=== PATIENT | male | born 1945 | race Caucasian/White ===

== ENCOUNTER 2017-06-08 05:07 | Inpatient (IN) | payer MEDICARE, MEDICAID, SELFPAY ==
[2017-06-08] VITALS (14 sets, daily range): BP systolic 135–179; BP diastolic 71–109; PULSE 71–98; RESP 16–32; TEMP 36.3–37.1; O2SAT 89–95; BMI 30.3; BMI 29.5
--- NOTE | 2017-06-08 05:25 | RAD_ITS ---
STUDY: X-RAY CHEST REASON FOR EXAM: Male, 71 years old. Shortness of breath TECHNIQUE: 1 view COMPARISON: October 07, 2013 FINDINGS: Emphysematous changes in the upper lobes. No acute pneumonia. No failure. Normal sized heart. Normal visualized thoracic spine. Normal visualized ribs, clavicles, and shoulders. There is no demonstrated abnormality of the visualized soft tissue structures of the upper abdomen. RAD/Chest 1 View (Portable) IMPRESSION: Emphysematous changes in both upper lobes. No pneumonia. No failure. Electronically Signed: Lalo Man, at 6:27 EST Tel , Service support ,
--- NOTE | 2017-06-08 05:26 | EKG12_ITS ---
Test Reason : SOB Blood Pressure : / mmHG Vent. Rate : 104 BPM Atrial Rate : 104 BPM P-R Int : 148 ms QRS Dur : 074 ms QT Int : 374 ms P-R-T Axes : 086 072 -05 degrees QTc Int : 491 ms Sinus tachycardia with Premature atrial complexes ST & T wave abnormality, consider lateral ischemia Abnormal ECG Confirmed by BRENDAN DELGADO ([id number]), editorial specialist MARIAN VALLE ([id number]) on 06/15/2017 2:48:47 PM Referred By: BERTRAND Confirmed By:BRENDAN DELGADO
[2017-06-08] MEDS: Aspirin 81 MG TAB.CHEW 324 MG PO (05:32)
[2017-06-08 05:36] LABS: Absolute Lymphocyte Count 2.12 X10^3/ul (0.83-4.51); Absolute Neutrophil Count 10.8 X10^3/uL (2.0-7.7); Basophil# 0.05 X10^3/uL; Basophil% 0.3 % (0-1); Eosinophil# 0.02 X10^3/uL; Eosinophils% 0.1 % (0-5); Hemoglobin 16.7 g/dl (13.0-16.5); Lymphocyte # 2.12 X10^3/ul (4.0); Lymphocyte % 14.6 % (19-41); Mean Corp Hgb Conc 34.1 g/gl (32-36); Mean Corpuscular Hgb 31.5 pg (27.0-32.0); Mean Corpuscular Volume 92.3 fL (80-94); Mean Platelet Vol. 9.2 fl (6.2-12.0); Monocyte# 1.46 X10^3/uL; Monocyte% 10.1 % (0-10); Neutrophil # 10.81 X10^3/uL (2.7-7.7); Neutrophil % 74.8 % (47-70); Platelet Count 317 K/mm3 (150-450); RBC Distribution Width CV 13.3 % (11.6-14.6); RBC Distribution Width SD 44.3 fl (35.1-43.9); Red Blood Count 5.31 M/mm3 (4.6-6.2); White Blood Count 14.5 K/mm3 (4.4-11.0)
[2017-06-08 05:37] LABS: POSITIVE COUNT NO; POSITIVE DIFFERENTIAL NO; POSITIVE MORPHOLOGY NO
[2017-06-08] MEDS: Ipratropium/Albuterol Sulfate 3 ML AMPUL.NEB INHALATION ×4 (05:47→19:30)
[2017-06-08 05:53] LABS: Anion Gap 6 (5-15); BUN 16 mg/dL (7-18); BUN/Creat Ratio 17.4 RATIO (10-20); Calcium,Total 9.7 mg/dL (8.5-10.1); Chloride 94 mmol/L (98-107); Creatinine, Serum 0.92 mg/dL (0.70-1.30); EST Glomerular Filtration Rate 86 mL/min (>60); Est Glom Filt Rate - Afr Amer 104 mL/min (>60); Estimated Creatinine Clearance 73.65 ml/min; Glucose 138 mg/dL (74-106); Potassium 3.3 mmol/L (3.5-5.1); Sodium Level 138 mmol/L (136-145)
[2017-06-08 06:06] LABS: BNP,B-Type NATRIURETIC PEPTIDE 73.3 pg/mL (0-100)
--- NOTE | 2017-06-08 07:01 | ED.VISSUMM ---
- ER Visit Summary Date of Service: 06/08/17 Chief Complaint: Shortness of breath History of Present Illness: The patient is a 71 M presents with shortness of breath. This is been present for about 3-4 days. He states he had a recent URI-like illness about a week ago with some congestion rhinorrhea and subjective fevers and chills this is actually improving but he states his breathing has gotten worse. He complains of increased cough and increased wheezing. He also has noticed some edema and is concerned for possible CHF. He tried aerosols without any significant relief. He denies any vomiting or diarrhea. He denies any pain. Physical Examination: Hypertensive initial pulse ox 89% respiratory rate 32 afebrile Moist mucous membranes Heart regular rate and rhythm Patient has diminished air exchange bilaterally and is tachypneic Abdomen is soft Extremities nontender no appreciable edema Alert Test Results: Chest x-ray shows emphysematous changes no acute process. EKG shows some lateral T-wave inversions and slight ST depression. Laboratory studies notable for white blood cell count 14.5. Troponin negative. BNP normal. Emergency Department Course and Treatment: Patient was given oxygen and albuterol and Atrovent. He was given aspirin given his subtle EKG changes. He has no chest pain and troponin was negative. I do not believe he is having any type of acute coronary event. I do believe this is likely all COPD exacerbation. A respiratory panel is pending. He was given IV Solu-Medrol and IV Zithromax. He was discussed with the hospitalist and admitted. Treatment Plan: [] Disposition: Admit Impression: COPD exacerbation This note was generated with [employer] dictation software. It may contain incorrect words, spelling, and punctuation that were not noted in review of the chart prior to signing ED Disposition - Plan for ED Patient: Chief Complaint: Shortness of Breath Referrals: Clifton Del Valle Chi, MD [Primary Care Provider] -
--- NOTE | 2017-06-08 07:06 | ED.DCSUM_ITS ---
- ER Visit Summary Date of Service: 06/08/17 Chief Complaint: Shortness of breath History of Present Illness: The patient is a 71 M presents with shortness of breath. This is been present for about 3-4 days. He states he had a recent URI -like illness about a week ago with some congestion rhinorrhea and subjective fevers and chills this is actually improving but he states his breathing has gotten worse. He complains of increased cough and increased wheezing. He also has noticed some edema and is concerned for possible CHF. He tried aerosols without any significant relief. He denies any vomiting or diarrhea. He denies any pain. Physical Examination: Hypertensive initial pulse ox 89% respiratory rate 32 afebrile Moist mucous membranes Heart regular rate and rhythm Patient has diminished air exchange bilaterally and is tachypneic Abdomen is soft Extremities nontender no appreciable edema Alert Test Results: Chest x-ray shows emphysematous changes no acute process. EKG shows some lateral T-wave inversions and slight ST depression. Laboratory studies notable for white blood cell count 14.5. Troponin negative. BNP normal. Emergency Department Course and Treatment: Patient was given oxygen and albuterol and Atrovent. He was given aspirin given his subtle EKG changes. He has no chest pain and troponin was negative. I do not believe he is having any type of acute coronary event. I do believe this is likely all COPD exacerbation. A respiratory panel is pending. He was given IV Solu-Medrol and IV Zithromax. He was discussed with the hospitalist and admitted. Treatment Plan: [] Disposition: Admit Impression: COPD exacerbation This note was generated with [employer] dictation software. It may contain incorrect words, spelling, and punctuation that were not noted in review of the chart prior to signing ED Disposition - Plan for ED Patient: Chief Complaint: Shortness of Breath Referrals: Clifton Del Valle Chi, MD [Primary Care Provider] -
[2017-06-08] MEDS: MethylPREDNISolone 125 MG/2 ML Vial IV (07:21)
--- NOTE | 2017-06-08 07:51 | PCM.HP.STD ---
Problem List (1) Acute exacerbation of chronic obstructive pulmonary disease (COPD) Status: Acute (2) Acute respiratory insufficiency Status: Acute (3) Hypertension Status: Chronic (4) Hyperlipidemia Status: Chronic (5) Metabolic alkalosis Status: Acute (6) Hypokalemia Status: Acute (7) CHF (congestive heart failure) Status: Chronic Qualifiers: Heart failure type: diastolic (8) COPD (chronic obstructive pulmonary disease) Status: Chronic (9) Coronary artery disease Status: Chronic (10) GERD (gastroesophageal reflux disease) Status: Chronic (11) Paroxysmal SVT (supraventricular tachycardia) Status: Chronic (12) Abnormal EKG Status: Acute History of Present Illness Date of Admission: 06/08/17 Chief Complaint: Shortness of breath/cough The patient is a 71 year old M with a past medical history of resumed COPD, hypertension, hyperlipidemia, congestive heart failure, former smoker and GERD who presented to the emergency department at [facility] on 06/08/2017 complaining of increasing shortness of breath and cough for 1 week. He denied fevers and chills and also denied chest pain. He has had no nausea, vomiting or diarrhea. He denies myalgias and arthralgias. He complains of rhinorrhea and the nasal discharge is clear. His cough is mostly nonproductive. He is a former smoker but quit smoking in 1990. He uses an aerosol machine 4 times daily at home and also had as a metered-dose inhaler. He is not on any steroid inhalers. Vital signs at presentation to the emergency room were temp 98.8, pulse rate 98, blood pressure 179/109, respiratory rate 32 and he was 89% saturated on room air. He does not have oxygen at home. He is 93% saturated on a 4 L nasal cannula. Chest x-ray showed no infiltrates, pleural effusions or pulmonary vascular congestion. White blood cell count was 14.5 with 75% neutrophils. Hemoglobin is 16.7 and platelets are within normal limits. Potassium is low at 3.3 and he does take 40 mg of furosemide daily. Serum bicarb is increased at 38. Fasting blood sugar is elevated at 138. Troponin was less than 0.02 and the BNP was 73. EKG showed T-wave inversion with 0.[address] depression in his lateral precordial leads. He was given azithromycin in the emergency room and 125 mg of Solu-Medrol. He received 2 aerosol treatments. He is being admitted to the hospital with a diagnosis of acute exacerbation of COPD. Past Medical History Past Medical History (Chronic Problems): Chronic Problems Hypertension (Chronic) Hyperlipidemia (Chronic) COPD (chronic obstructive pulmonary disease) (Chronic) Paroxysmal SVT (supraventricular tachycardia) (Chronic) GERD (gastroesophageal reflux disease) (Chronic) Coronary artery disease (Chronic) CHF (congestive heart failure) (Chronic) Allergies No Known Allergies Allergy (Verified 06/08/17 05:16) Home Medications: Ambulatory Orders Medication Instructions Recorded Carvedilol [Coreg (Beta Pa)] 6.25 mg PO BID 05/25/13 Furosemide [Lasix] 40 mg PO DAILY 05/25/13 Lisinopril [Zestril] 20 mg PO DAILY 05/25/13 Pravastatin [Pravachol] 40 mg PO QHS 05/25/13 Albuterol/Ipratropium [Combivent 1 puff INHALATION 4X/DAY #1 inhaler 05/26/13 Inhaler] Aspirin E.C. [Ecotrin] 81 mg PO DAILY 06/08/17 Ranitidine [Zantac] 150 mg PO BID 06/08/17 Surgical History: - - He had excision of a left breast mass when he was 9 years of age and it was benign. 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 Drugs: None - *Family History Maternal History Items: No pertinent history Paternal History Items: No pertinent history Offspring History Items: - - He has children but they live in [place] and they have been estranged for many years. Review of Systems Constitutional: Denies: Chills, Fever, Weight Change Eyes: Denies: Blurred vision, Vision Change HEENT: Reports: - - Clear rhinorrhea. Denies: Difficulty Hearing, Difficulty Swallowing, Sore Throat Cardiovascular: Denies: Chest Pain, Edema, Light Headedness, Orthopnea, Palpitations Respiratory: Reports: Cough, Shortness of Breath, Shortness of breath at rest, Shortness of breath upon exertion. Denies: Sputum production Gastrointestinal: Reports: Abdominal Pain - He has been having epigastric pain and tells me he takes baking soda daily in addition to the ranitidine. Denies: Nausea, Vomiting Genitourinary: Denies: Dysuria Musculoskeletal: Denies: Joint Pain, Joint Tenderness Skin: Denies: Jaundice, Rash, Wounds Neurological: Denies: Focal weakness, Numbness, Tingling, Seizures Psychiatric: Denies: Anxiety, Depression, Homicidal Ideations, Suicidal Ideations Endocrine: Denies: Change in Body Habitus Hematologic/ Lymphatic: Denies: Easy Bruising, Easy Bleeding, Hx of blood clot VTE Information - Inpt Only VTE Present on Admission: No VTE Mechan Device Prophylaxis: Knee High JEROD Hose VTE Pharm Prophylaxis ordered?: Yes Patient Problems: Active and Suspected Problems Acute exacerbation of chronic obstructive pulmonary disease (COPD) (Acute) Acute respiratory insufficiency (Acute) Metabolic alkalosis (Acute) Hypokalemia (Acute) Abnormal EKG (Acute) - Physical Exam General: Alert, Oriented x3, Cooperative, No apparent distress, Well developed, Well nourished HEENT: Atraumatic, PERRLA, EOMI, Normocephalic Oral: Dry Mucosa Neck: Supple, No JVD, Negative Carotid Bruits, Trachea Midline, - - Carotids have brisk upstroke and good pulse volume bilaterally Lungs: Diminished, Wheezes, - - He has coarse crackles in the bases of both lungs that do not resolve with several deep breaths. Deep breathing causes him to cough. Cardiovascular: Regular rate, Regular Rhythm, Normal S1, Normal S2, No murmurs, No Ectopic Activity, No Gallop Abdomen: Bowel Sounds Present, Soft, Non Tender, Distended - and tympanic.....he tells me this is normal for him Extremities: No clubbing, No cyanosis, No edema, Capillary Refill Less than 3 Seconds, No Calf Tenderness, Peripheral Pulses Normal Skin: No rashes, No breakdown Musculoskeletal: No Muscle Wasting Neurological: Cranial nerves II-XII grossly intact, Neuro grossly intact Psych/Mental Status: Normal Affect, Appropriate Vital Signs Temp Pulse Resp BP Pulse Ox 98.8 F 96 24 H 165/96 H 93 06/08/17 05:07 06/08/17 07:10 06/08/17 07:10 06/08/17 07:10 06/08/17 07:10 Oxygen Flow Rate 4 Oxygen Delivery Method Nasal Cannula Weight: 205 lb 4.006 oz Body Mass Index (BMI) 30.3 Laboratory Tests Past 24 Hrs 06/08/17 06/08/17 06/08/17 05:30 05:30 05:30 WBC 14.5 H RBC 5.31 Hgb 16.7 H Hct 49.0 MCV 92.3 MCH 31.5 MCHC 34.1 RDW 13.3 RDW Differential 44.3 H Plt Count 317 MPV 9.2 Immature Gran % (Auto) 0.100 Neut % (Auto) 74.8 H Lymph % (Auto) 14.6 L Linn % (Auto) 10.1 H Eos % (Auto) 0.1 Baso % (Auto) 0.3 Absolute Neuts (auto) 10.8 H Absolute Lymphs (auto) 2.12 Total Counted Not Reportable Sodium 138 Potassium 3.3 L Chloride 94 L Carbon Dioxide 38.0 H Anion Gap 6 BUN 16 Creatinine 0.92 Estim Creat Clear Calc 73.65 Est GFR (MDRD) Af Amer 104 Est GFR (MDRD) Non-Af 86 BUN/Creatinine Ratio 17.4 Glucose 138 H Calcium 9.7 Troponin I < 0.02 B-Natriuretic Peptide 73.3 Assessment/Plan Active and Suspected Problems Acute exacerbation of chronic obstructive pulmonary disease (COPD) (Acute) Acute respiratory insufficiency (Acute) Metabolic alkalosis (Acute) Hypokalemia (Acute) Abnormal EKG (Acute) Impressions 1. Acute exacerbation of COPD 2. Acute respiratory insufficiency with borderline hypoxemia 3. Hypertension 4. Hyperlipidemia 5. Reported history of congestive heart failure-suspect this is diastolic 6. Metabolic alkalosis-suspect chronic CO2 retention-ABG ordered 7. GERD 8. Former smoker-quit in 1990 9. Hypokalemia CXR Sputum for GM stain C&S Respiratory panel Legionella and Streptococcal antigens in the urine Around the clock aerosol treatments and Q 2H ALbuterol aerosols for wheezing/SOB High dose IV steroids Mucinex Incentive spirometry PEP therapy DVT prophylaxis Ambulatory pulse ox prior to DC Code Visit Inpatient E&M: 97799 Init Hosp L2
--- NOTE | 2017-06-08 07:57 | ECHOD_ITS ---
Reason For Study: ABN EKG Procedure This was a 2D Doppler, Color Flow transthoracic echocardiogram. The exam was of adequate technical quality. Exam performed portable in patient room. Left Ventricle Normal LV size. Left ventricular systolic function is normal. The estimated ejection fraction is 60 %. Transmitral diastolic flow velocities suggest moderate (stage 2) diastolic dysfunction (pseudonormal pattern). No regional wall motion abnormalities noted. Right Ventricle Normal RV size. Normal systolic function. Atria The left atrium is mildly enlarged. The right atrium is mildly enlarged. No doppler evidence for ASD. Mitral Valve There is no mitral annular calcification. Normal mitral valve. Trivial mitral valve insufficiency. Tricuspid Valve Normal tricuspid valve. Mild tricuspid valve insufficiency. Right ventricular systolic pressure estimated to be 45 mmHg. Aortic Valve Trisinus/trileaflet aortic valve. Mild focal aortic valve thickening. Pulmonic Valve The pulmonic valve is not well visualized. Trivial pulmonic valve insufficiency. Great Vessels Normal sized aortic root. Pericardium/Pleural No pericardial effusion. MMode/2D Measurements & Calculations LVIDd: 4.8 cm IVSd: 1.2 cm LVOT diam: 2.1 cm LVIDs: 3.7 cm LVPWd: 1.0 cm LVOT area: 3.5 cm2 RVDd: 3.4 cm FS: 23.0 % Ao root diam: 3.8 cm LAV(MOD-bp): 59.8 ml LA A4 area: 19.7 cm2 LA dimension: 3.2 cm LAV(MOD-bp) Indexed: 28.7 ml/m2 LAV(MOD-sp2): 58.4 ml LAV(MOD-sp4): 58.3 ml RA A4 area: 18.9 cm2 Doppler Measurements & Calculations MV E max oneyda: 69.7 cm/sec Ao V2 max: 145.2 cm/sec LV V1 max: 104.6 cm/sec MV A max oneyda: 48.8 cm/sec Ao max P.6 mmHg LV V1 max P.4 mmHg MV E/A: 1.4 ANNE(V,D): 2.5 cm2 TR max oneyda: 321.8 cm/sec TR max P.5 mmHg Interpretation Summary Left ventricular systolic function is normal. The estimated ejection fraction is 60 %. The left atrium is mildly enlarged. The right atrium is mildly enlarged. Trivial mitral valve insufficiency. Mild tricuspid valve insufficiency. Mild focal aortic valve thickening. Trivial pulmonic valve insufficiency. Right ventricular systolic pressure estimated to be 45 mmHg. Transmitral diastolic flow velocities suggest diastolic dysfunction (pseudonormal pattern). Ordering Physician: Jenn Stewart Referring Physician: BRIANNA ALVARADO CHI Performed By: Lola Rios, RDCS, RVT
[2017-06-08] MEDS: Ondansetron 4 MG/2 ML Vial IV (08:54)
--- NOTE | 2017-06-08 08:56 | EKG12_ITS ---
Test Reason : SOB Blood Pressure : / mmHG Vent. Rate : 093 BPM Atrial Rate : 093 BPM P-R Int : 172 ms QRS Dur : 070 ms QT Int : 336 ms P-R-T Axes : 094 066 109 degrees QTc Int : 417 ms Sinus rhythm with Premature atrial complexes ST & T wave abnormality, consider inferolateral ischemia Abnormal ECG Confirmed by TIERNEY KESSLER, KENNEDY ([id number]), videotape editor MARIAN VALLE ([id number]) on 06/16/2017 1:45:18 PM Referred By: YUE Confirmed By:KENNEDY MONET MD
[2017-06-08 09:36] LABS: Magnesium 2.2 mg/dL (1.6-2.6); Phosphorus 3.6 mg/dL (2.5-4.9)
[2017-06-08 09:44] LABS: Hemoglobin A1c 5.9 % (4.2-6.3)
[2017-06-08 09:52] LABS: AST(SGOT) 22 U/L (15-37); Alanine Aminotransfer ALT/SGPT 45 U/L (16-61); Albumin, Serum 4.1 g/dL (3.2-5.0); Alkaline Phosphatase 101 U/L (45-117); Bilirubin, Direct 0.14 mg/dL (0.00-0.30); Globulin 4.1 g/dL (2.2-4.2); Protein, Total 8.2 g/dL (6.4-8.2)
[2017-06-08] MEDS: Enoxaparin 40 MG/0.4 ML Syringe SC (10:10)
[2017-06-08] MEDS: Aspirin E.C. 81 MG Tablet PO (10:10)
[2017-06-08] MEDS: Famotidine 20 MG Tablet PO ×2 (10:10→22:32)
[2017-06-08] MEDS: Carvedilol 6.25 MG Tablet PO ×2 (10:10→22:32)
[2017-06-08] MEDS: Furosemide 40 MG Tablet PO (10:10)
[2017-06-08] MEDS: Lisinopril 20 MG Tablet PO (10:10)
[2017-06-08 10:26] LABS: Allen Test POS; Base Excess 12 mmol/L (-2 to +2); Bicarbonate 35.5 mmol/L (22-26); Blood Gas Specimen Type ART; O2 Delivery Device Nasal Can; PO2 64 mmHG (75-100); SITE R Radial; SO2 93 % (95-99); Time Given 1018; Total Carbon Dioxide 37 mmol/L; pCO2 50.7 mmHg (35-45); pH 7.45 (7.35-7.45)
[2017-06-08] MEDS: guaiFENesin 1,200 MG Tablet 1200 MG PO ×2 (12:22→22:32)
[2017-06-08] MEDS: 0.9% NaCl Peripheral Flush Adult/Peds IV (14:07)
[2017-06-08] MEDS: Pravastatin 40 MG Tablet PO (22:32)
[2017-06-09] VITALS (11 sets, daily range): BP systolic 128–138; BP diastolic 75–82; PULSE 74–90; RESP 18–20; TEMP 36.4–37.7; O2SAT 90–93
[2017-06-09] MEDS: Ipratropium/Albuterol Sulfate 3 ML AMPUL.NEB INHALATION ×7 (00:10→22:44)
[2017-06-09 06:10] LABS: Anion Gap 6 (5-15); BUN 28 mg/dL (7-18); BUN/Creat Ratio 32.7 RATIO (10-20); Calcium,Total 8.4 mg/dL (8.5-10.1); Chloride 101 mmol/L (98-107); Creatinine, Serum 0.86 mg/dL (0.70-1.30); EST Glomerular Filtration Rate 93 mL/min (>60); Est Glom Filt Rate - Afr Amer 113 mL/min (>60); Estimated Creatinine Clearance 78.78 ml/min; Glucose 164 mg/dL (74-106); Magnesium 2.1 mg/dL (1.6-2.6); Potassium 3.9 mmol/L (3.5-5.1); Sodium Level 143 mmol/L (136-145)
[2017-06-09] MEDS: Furosemide 40 MG Tablet PO (08:41)
[2017-06-09] MEDS: Enoxaparin 40 MG/0.4 ML Syringe SC (08:41)
[2017-06-09] MEDS: Carvedilol 6.25 MG Tablet PO ×2 (08:41→21:09)
[2017-06-09] MEDS: Lisinopril 20 MG Tablet PO (08:41)
[2017-06-09] MEDS: Aspirin E.C. 81 MG Tablet PO (08:41)
[2017-06-09] MEDS: Famotidine 20 MG Tablet PO ×2 (08:41→21:09)
[2017-06-09] MEDS: guaiFENesin 1,200 MG Tablet 1200 MG PO ×2 (08:42→21:09)
--- NOTE | 2017-06-09 13:28 | CASEMGMT ---
DONATO WANG Face to Face with patient for initial transition planning/care coordination assessment. RN FELIPE introduced self and role at [facility]. Patient sitting up in bed, alert and oriented. Patient willing to participate in assessment and is able to answer all questions appropriately. Care providers, pharmacy, and demographics verified. See link attached. Patient wishes to discharge home, denies need for home health at this time. Patient states he has no further needs or concerns at this time. CM to follow for discharge planning needs that may arise. Disposition Plan: Patient to discharge home with family support and follow-up plans in place.
--- NOTE | 2017-06-09 13:53 | PN_ITS ---
Patient Problems: Active and Suspected Problems Acute exacerbation of chronic obstructive pulmonary disease (COPD) (Acute) Acute respiratory insufficiency (Acute) Metabolic alkalosis (Acute) Hypokalemia (Acute) Abnormal EKG (Acute) Subjective: 71-year-old male admitted to the hospital with acute exacerbation of COPD secondary to RSV B. Continues to require oxygen and is 90% on 2 L now. Previously not on oxygen at home. Respiratory panel is + for RSV B. Pulse ox today is 90-92% on 2.5 LPM Echo shows normal EF with no segmental wall motion abnormalities. The is focal AV thickening and +1 MVR. He states his breathing is improved. Denies CP. No N/V and no abdominal pain. - Physical Exam General: Alert, Oriented x3, Cooperative, No apparent distress Oral: No Gingival or Mucosal Lesions/ Ulcerations Neck: No Nodes, Trachea Midline Lungs: Diminished - poor air exchange with end expiratory wheezing, no rales. He is not tachypneic at rest today and has no conversational dyspnea There is no accessory muscle use, Wheezes Cardiovascular: Regular rate, Regular Rhythm, Normal S1, Normal S2, No Gallop, - - distant heart sounds Abdomen: Bowel Sounds Present, Soft, Non Tender, Non-Distended Extremities: No clubbing, No cyanosis, No edema Skin: No rashes, No breakdown Psych/Mental Status: Normal Affect, Appropriate Vital Signs Temp Pulse Resp BP Pulse Ox 97.5 F L 75 20 H 134/76 H 92 06/09/17 08:38 06/09/17 11:25 06/09/17 11:25 06/09/17 08:38 06/09/17 08:38 Oxygen Flow Rate 2.5 Oxygen Delivery Method Nasal Cannula Weight: 199 lb 15.348 oz Body Mass Index (BMI) 29.5 Intake and Output for Last 24 Hours 06/07/17 06/08/17 06/09/17 23:59 23:59 23:59 Intake Total 660 / 660 1724 / 1724 Output Total 100 / 100 Balance 560 / 560 1724 / 1724 Microbiology Past 72 Hours 06/08/17 11:10 Streptococcus pneumoniae Antigen (M - Final Urine, Clean Catch Laboratory Tests Past 24 Hrs 06/08/17 06/09/17 19:29 05:32 Sodium 143 Potassium 3.9 Chloride 101 Carbon Dioxide 36.0 H Anion Gap 6 BUN 28 H Creatinine 0.86 Estim Creat Clear Calc 78.78 Est GFR (MDRD) Af Amer 113 Est GFR (MDRD) Non-Af 93 BUN/Creatinine Ratio 32.7 H Glucose 164 H Calcium 8.4 L Magnesium 2.1 Troponin I < 0.02 Assessment/Plan Active and Suspected Problems Acute exacerbation of chronic obstructive pulmonary disease (COPD) (Acute) Acute respiratory insufficiency (Acute) Metabolic alkalosis (Acute) Hypokalemia (Acute) Abnormal EKG (Acute) Impressions 1. Acute exacerbation of COPD - secondary to RSV 2. Acute respiratory insufficiency with hypoxemia 3. Hypertension 4. Hyperlipidemia 5. Reported history of congestive heart failure-suspect this is diastolic - echocardiogram shows a 60% ejection fraction with probable diastolic dysfunction and an increased right ventricular systolic pressure of 45 6. Primary Metabolic alkalosis with compensatory resp acidosis likely due to contraction alkalosis 7. GERD 8. Former smoker-quit in 1990 9. Hypokalemia 10. Pulmonary hypertension DC the Prednisone and restart Solu-medrol - he is tighter today with poor air exchange continue the aerosols, IS and PEP Will need an ambulatory pulse ox prior to DC - may need home O2 He needs to see pulmonary post DC and have PFT's and a PSG. Hold the Lasix......may not need a diuretic since the EF is 60% Gentle hydration tonight with 0.45% saline Recheck a BMP in the AM Code Visit Inpatient E&M: 07460 Subs Hosp L2
[2017-06-09] MEDS: 0.9% NaCl Peripheral Flush Adult/Peds IV ×2 (14:23→21:09)
[2017-06-09] MEDS: 0.45% Normal Saline 1,000 ML 75 ML IV (20:44)
[2017-06-09] MEDS: Pravastatin 40 MG Tablet PO (21:09)
[2017-06-10] VITALS (12 sets, daily range): BP systolic 137–171; BP diastolic 73–98; PULSE 79–88; RESP 16–20; TEMP 36.4–37.3; O2SAT 89–96
[2017-06-10] MEDS: Ipratropium/Albuterol Sulfate 3 ML AMPUL.NEB INHALATION ×6 (02:25→23:56)
[2017-06-10] MEDS: 0.9% NaCl Peripheral Flush Adult/Peds IV ×2 (06:47→22:11)
[2017-06-10] MEDS: 0.45% Normal Saline 1,000 ML 75 ML IV (09:25)
[2017-06-10] MEDS: Aspirin E.C. 81 MG Tablet PO (09:25)
--- NOTE | 2017-06-10 09:59 | PCM.PN.HOSP ---
Patient Problems: Active and Suspected Problems Acute exacerbation of chronic obstructive pulmonary disease (COPD) (Acute) Acute respiratory insufficiency (Acute) Metabolic alkalosis (Acute) Hypokalemia (Acute) Abnormal EKG (Acute) Subjective: Patient was seen and examined. Denies any wheezing or chest pain. Remains on 2-3 L of oxygen. On oxygen at home. Using incentive spirometer and Acapella. Vitals/I&O's: Vital Signs Temp Pulse Resp BP Pulse Ox 97.5 F L 81 16 137/73 H 96 06/10/17 03:45 06/10/17 07:03 06/10/17 07:03 06/10/17 03:45 06/10/17 07:03 Oxygen Flow Rate 2 Oxygen Delivery Method Nasal Cannula Weight: 90.7 kg Body Mass Index (BMI) 29.5 Intake and Output for Last 24 Hours 06/08/17 06/09/17 06/10/17 23:59 23:59 23:59 Intake Total 660 / 660 2023 1172 / 1172 Output Total 100 / 100 450 / 450 Balance 560 / 560 2023 722 / 722 General: Alert, Oriented x3, Cooperative, No apparent distress, - - on 2L oxygen HEENT: Atraumatic, PERRLA, EOMI, Normocephalic Oral: Moist Mucosa Neck: Supple Lungs: Normal air movement, No wheeze, Diminished Cardiovascular: Regular rate, Regular Rhythm, Normal S1, Normal S2, No murmurs Abdomen: Bowel Sounds Present, Soft, Non Tender, Non-Distended, No Hepato-splenomegaly Extremities: No edema Skin: No rashes, No breakdown Musculoskeletal: No Tenderness to Palpation of Joints or Extremities Lymphatic: No Cervical, Supraclavicular, or Inguinal Adenopathy Neurological: Cranial nerves II-XII grossly intact, Neuro grossly intact Psych/Mental Status: Normal Affect, Appropriate Microbiology Past 72 Hours 06/08/17 11:10 Urine, Clean Catch Streptococcus pneumoniae Antigen (M - Final Current Medications Acetaminophen (Tylenol) 650 mg PO Q6H PRN PRN PRN Reason: Mild Pain (scale 0-3)/T>100.7 Al Hydroxide/Mg Hydroxide (Mylanta Ii) 30 ml PO Q6H PRN PRN PRN Reason: Gastric Burning Albuterol Sulfate (Ventolin Aerosols) 2.5 mg INHALATION Q2H PRN PRN PRN Reason: SHORTNESS OF BREATH Albuterol/Ipratropium (Duoneb) 3 ml INHALATION Q4H.RT [facility] Last Admin: 06/10/17 07:03 Dose: 3 ml Aspirin (Ecotrin) 81 mg PO DAILY@0800 [facility] Last Admin: 06/10/17 09:25 Dose: 81 mg Bisacodyl (Dulcolax) 10 mg PO DAILY PRN PRN PRN Reason: Constipation Carvedilol (Coreg) 6.25 mg PO BID [facility] Last Admin: 06/09/17 21:09 Dose: 6.25 mg Enoxaparin Sodium (Lovenox) 40 mg SC DAILY@1000 [facility] Last Admin: 06/09/17 08:41 Dose: 40 mg Famotidine (Pepcid) 20 mg PO BID [facility] Last Admin: 06/09/17 21:09 Dose: 20 mg Guaifenesin (Mucinex) 1,200 mg PO BID [facility] Last Admin: 06/09/17 21:09 Dose: 1,200 mg Azithromycin 500 mg/ Dextrose 255 mls @ 250 mls/hr IV Q24 [facility] Stop: 06/11/17 11:02 Last Admin: 06/10/17 09:26 Dose: 250 mls/hr Sodium Chloride () 1,000 mls @ 75 mls/hr IV .[id number] [facility] Stop: 06/10/17 22:29 Last Admin: 06/10/17 09:25 Dose: 75 mls/hr Lisinopril (Zestril) 20 mg PO DAILY [facility] Last Admin: 06/09/17 08:41 Dose: 20 mg Magnesium Hydroxide (Milk Of Magnesia) 30 ml PO DAILY PRN PRN PRN Reason: Constipation Methylprednisolone (Solu-Medrol) 40 mg IV Q8 [facility] Last Admin: 06/10/17 06:47 Dose: 40 mg Ondansetron HCl (Zofran) 4 mg IV Q8H PRN PRN PRN Reason: Nausea Last Admin: 06/08/17 08:54 Dose: 4 mg Potassium Ch[facility] ([facility]) [facility] Last Admin: 06/10/17 09:25 Dose: 20 meq Pravastatin Sodium (Pravachol) 40 mg PO QHS [facility] Last Admin: 06/09/17 21:09 Dose: 40 mg Sodium Chloride () 5 - 30 ml IV UD PRN PRN Reason: SALINE FLUSH Last Admin: 06/10/17 06:47 Dose: 5 ml Assessment/Plan Active and Suspected Problems Acute exacerbation of chronic obstructive pulmonary disease (COPD) (Acute) Acute respiratory insufficiency (Acute) Metabolic alkalosis (Acute) Hypokalemia (Acute) Abnormal EKG (Acute) 71-year-old male with past medical history of COPD, hypertension, hyperlipidemia, GERD who comes in with complaints of shortness of breath and cough and has manage as acute COPD exacerbation. Special panel was positive for RSV 1. Acute hypoxic respiratory insufficiency to acute COPD exacerbation, patient remains on 2-3 L of oxygen, not on oxygen at home, encourage use of incentive spirometer and Acapella, wean off for SPO2 more than 92% 2. Acute exacerbation of COPD secondary to RSV, remains on IV Solu-Medrol, breathing treatments, IV azithromycin, continue on same, possibly wean to prednisone p.o. tomorrow if patient continues to improve. 3. Hypertension, throat, continue on carvedilol, lisinopril, 4. Hyperlipidemia,on pravastatin 5. Chronic Diastolic heart failure/pulmonary hypertension, not in acute exacerbation 6. Metabolic alkalosis secondary to contraction alkalosis, on lows IV fluids with improvement in HCO3, will continue to monitor. 7. GERD, on famotidine 8. DVT PPx - on Lovenox SC Code Visit Inpatient E&M: 85702 Subs Hosp L2
--- NOTE | 2017-06-10 10:09 | PN_ITS ---
Patient Problems: Active and Suspected Problems Acute exacerbation of chronic obstructive pulmonary disease (COPD) (Acute) Acute respiratory insufficiency (Acute) Metabolic alkalosis (Acute) Hypokalemia (Acute) Abnormal EKG (Acute) Subjective: Patient was seen and examined. Denies any wheezing or chest pain. Remains on 2 -3 L of oxygen. On oxygen at home. Using incentive spirometer and Acapella. Vitals/I&O's: Vital Signs Temp Pulse Resp BP Pulse Ox 97.5 F L 81 16 137/73 H 96 06/10/17 03:45 06/10/17 07:03 06/10/17 07:03 06/10/17 03:45 06/10/17 07:03 Oxygen Flow Rate 2 Oxygen Delivery Method Nasal Cannula Weight: 90.7 kg Body Mass Index (BMI) 29.5 Intake and Output for Last 24 Hours 06/08/17 06/09/17 06/10/17 23:59 23:59 23:59 Intake Total 660 / 660 2023 1172 / 1172 Output Total 100 / 100 450 / 450 Balance 560 / 560 2023 722 / 722 General: Alert, Oriented x3, Cooperative, No apparent distress, - - on 2L oxygen HEENT: Atraumatic, PERRLA, EOMI, Normocephalic Oral: Moist Mucosa Neck: Supple Lungs: Normal air movement, No wheeze, Diminished Cardiovascular: Regular rate, Regular Rhythm, Normal S1, Normal S2, No murmurs Abdomen: Bowel Sounds Present, Soft, Non Tender, Non-Distended, No Hepato- splenomegaly Extremities: No edema Skin: No rashes, No breakdown Musculoskeletal: No Tenderness to Palpation of Joints or Extremities Lymphatic: No Cervical, Supraclavicular, or Inguinal Adenopathy Neurological: Cranial nerves II-XII grossly intact, Neuro grossly intact Psych/Mental Status: Normal Affect, Appropriate Microbiology Past 72 Hours 06/08/17 11:10 Urine, Clean Catch Streptococcus pneumoniae Antigen (M - Final Current Medications Acetaminophen (Tylenol) 650 mg PO Q6H PRN PRN PRN Reason: Mild Pain (scale 0-3)/T>100.7 Al Hydroxide/Mg Hydroxide (Mylanta Ii) 30 ml PO Q6H PRN PRN PRN Reason: Gastric Burning Albuterol Sulfate (Ventolin Aerosols) 2.5 mg INHALATION Q2H PRN PRN PRN Reason: SHORTNESS OF BREATH Albuterol/Ipratropium (Duoneb) 3 ml INHALATION Q4H.RT [facility] Last Admin: 06/10/17 07:03 Dose: 3 ml Aspirin (Ecotrin) 81 mg PO DAILY@0800 [facility] Last Admin: 06/10/17 09:25 Dose: 81 mg Bisacodyl (Dulcolax) 10 mg PO DAILY PRN PRN PRN Reason: Constipation Carvedilol (Coreg) 6.25 mg PO BID [facility] Last Admin: 06/09/17 21:09 Dose: 6.25 mg Enoxaparin Sodium (Lovenox) 40 mg SC DAILY@1000 [facility] Last Admin: 06/09/17 08:41 Dose: 40 mg Famotidine (Pepcid) 20 mg PO BID [facility] Last Admin: 06/09/17 21:09 Dose: 20 mg Guaifenesin (Mucinex) 1,200 mg PO BID [facility] Last Admin: 06/09/17 21:09 Dose: 1,200 mg Azithromycin 500 mg/ Dextrose 255 mls @ 250 mls/hr IV Q24 [facility] Stop: 06/11/17 11:02 Last Admin: 06/10/17 09:26 Dose: 250 mls/hr Sodium Chloride () 1,000 mls @ 75 mls/hr IV .[id number] [facility] Stop: 06/10/17 22:29 Last Admin: 06/10/17 09:25 Dose: 75 mls/hr Lisinopril (Zestril) 20 mg PO DAILY [facility] Last Admin: 06/09/17 08:41 Dose: 20 mg Magnesium Hydroxide (Milk Of Magnesia) 30 ml PO DAILY PRN PRN PRN Reason: Constipation Methylprednisolone (Solu-Medrol) 40 mg IV Q8 [facility] Last Admin: 06/10/17 06:47 Dose: 40 mg Ondansetron HCl (Zofran) 4 mg IV Q8H PRN PRN PRN Reason: Nausea Last Admin: 06/08/17 08:54 Dose: 4 mg [facility] Admin: 06/10/17 09:25 Dose: 20 meq Pravastatin Sodium (Pravachol) 40 mg PO QHS [facility] Last Admin: 06/09/17 21:09 Dose: 40 mg Sodium Chloride () 5 - 30 ml IV UD PRN PRN Reason: SALINE FLUSH Last Admin: 06/10/17 06:47 Dose: 5 ml Assessment/Plan Active and Suspected Problems Acute exacerbation of chronic obstructive pulmonary disease (COPD) (Acute) Acute respiratory insufficiency (Acute) Metabolic alkalosis (Acute) Hypokalemia (Acute) Abnormal EKG (Acute) 71-year-old male with past medical history of COPD, hypertension, hyperlipidemia , GERD who comes in with complaints of shortness of breath and cough and has manage as acute COPD exacerbation. Special panel was positive for RSV 1. Acute hypoxic respiratory insufficiency to acute COPD exacerbation, patient remains on 2-3 L of oxygen, not on oxygen at home, encourage use of incentive spirometer and Acapella, wean off for SPO2 more than 92% 2. Acute exacerbation of COPD secondary to RSV, remains on IV Solu-Medrol, breathing treatments, IV azithromycin, continue on same, possibly wean to prednisone p.o. tomorrow if patient continues to improve. 3. Hypertension, throat, continue on carvedilol, lisinopril, 4. Hyperlipidemia,on pravastatin 5. Chronic Diastolic heart failure/pulmonary hypertension, not in acute exacerbation 6. Metabolic alkalosis secondary to contraction alkalosis, on lows IV fluids with improvement in HCO3, will continue to monitor. 7. GERD, on famotidine 8. DVT PPx - on Lovenox SC Code Visit Inpatient E&M: 75866 Subs Hosp L2
[2017-06-10] MEDS: Carvedilol 6.25 MG Tablet PO ×2 (10:41→22:11)
[2017-06-10] MEDS: Famotidine 20 MG Tablet PO ×2 (10:41→22:11)
[2017-06-10] MEDS: Enoxaparin 40 MG/0.4 ML Syringe SC (10:41)
[2017-06-10] MEDS: Lisinopril 20 MG Tablet PO (10:41)
[2017-06-10] MEDS: guaiFENesin 1,200 MG Tablet 1200 MG PO ×2 (11:09→22:11)
[2017-06-10] MEDS: Pravastatin 40 MG Tablet PO (22:11)
[2017-06-10] MEDS: Sodium Chloride 0.65% 1 SPRAY SPRAY.BTL 2 SPRAY NASAL (22:18)
[2017-06-11] VITALS (10 sets, daily range): BP systolic 145–168; BP diastolic 83–107; PULSE 68–98; RESP 16–20; TEMP 36.5–36.7; O2SAT 90–96
[2017-06-11] MEDS: Ipratropium/Albuterol Sulfate 3 ML AMPUL.NEB INHALATION ×3 (03:52→11:30)
[2017-06-11] MEDS: Carvedilol 6.25 MG Tablet PO ×2 (06:28→12:26)
[2017-06-11] MEDS: Lisinopril 20 MG Tablet PO (06:28)
[2017-06-11] MEDS: 0.9% NaCl Peripheral Flush Adult/Peds IV (06:28)
[2017-06-11] MEDS: Bisacodyl 5 MG Tablet 10 MG PO (06:37)
--- NOTE | 2017-06-11 09:12 | PCM.DC ---
- Discharge Diagnoses Current Active Problems: Current Active and Chronic Problems Acute exacerbation of chronic obstructive pulmonary disease (COPD) (Acute) Acute respiratory insufficiency (Acute) Hypertension (Chronic) Hyperlipidemia (Chronic) Metabolic alkalosis (Acute) Hypokalemia (Acute) Abnormal EKG (Acute) Reason(s) for Visit for Discharge Instructions: Shortness of breath You will use the following diet at home:: Cardiac Your food should be the consistency of: Regular Your liquids should be the consistency of: Regular/Thin Discharge Activity: Return to Normal Activity Allergies/Adverse Reactions: Allergies No Known Allergies Allergy (Verified 06/08/17 05:16) Medications to take at Discharge Carvedilol [Coreg (Beta Pa)] 6.25 mg PO BID 05/25/13 Furosemide [Lasix] 40 mg PO DAILY 05/25/13 Lisinopril [Zestril] 20 mg PO DAILY 05/25/13 Pravastatin [Pravachol] 40 mg PO QHS 05/25/13 Albuterol/Ipratropium [Combivent Inhaler] 1 puff INHALATION 4X/DAY #1 inhaler 05/26/13 Aspirin E.C. [Ecotrin] 81 mg PO DAILY 06/08/17 Budesonide/Formoterol 160/4.5 [Symbicort 160/4.5 Mcg Inhaler (SP)] 1 inh PO BID 06/08/17 Ranitidine [Zantac] 150 mg PO BID 06/08/17 Guaifenesin [Mucinex] 1,200 mg PO BID #14 tab 06/11/17 Prednisone 10 mg PO UD #30 tab 06/11/17 The following prescriptions were given: Prednisone 10 mg PO UD #30 tab Guaifenesin [Mucinex] 1,200 mg PO BID #14 tab Orders to be completed after discharge: Basic Metabolic Profile (BMP) Location: Laboratory Primary Care Physician: Clifton Del Valle Chi, MD [Primary Care Provider] - Please follow up with your Primary Care Physician in: within 2 weeks Please Follow Up With: Santino Conrad MD When: within 2 weeks for pulmonary function tests Proposed Discharge Date: 06/11/17
[2017-06-11] MEDS: Enoxaparin 40 MG/0.4 ML Syringe SC (09:24)
[2017-06-11] MEDS: guaiFENesin 1,200 MG Tablet 1200 MG PO (09:24)
[2017-06-11] MEDS: Famotidine 20 MG Tablet PO (09:24)
[2017-06-11] MEDS: Aspirin E.C. 81 MG Tablet PO (09:25)
--- NOTE | 2017-06-11 11:41 | PCM.DC.SUM ---
Discharge Date and Diagnosis - Problem List Patient Problems: Active and Suspected Problems Acute exacerbation of chronic obstructive pulmonary disease (COPD) (Acute) Acute respiratory insufficiency (Acute) Metabolic alkalosis (Acute) Hypokalemia (Acute) Abnormal EKG (Acute) Date of Admission: 06/08/17 Date of Discharge: 06/11/17 - Primary Discharge Diagnosis Active and Suspected Problems Acute exacerbation of chronic obstructive pulmonary disease (COPD) (Acute) Acute respiratory insufficiency (Acute) Metabolic alkalosis (Acute) Hypokalemia (Acute) Abnormal EKG (Acute) - Secondary Discharge Diagnosis Chronic Problems Hypertension (Chronic) Hyperlipidemia (Chronic) COPD (chronic obstructive pulmonary disease) (Chronic) Paroxysmal SVT (supraventricular tachycardia) (Chronic) GERD (gastroesophageal reflux disease) (Chronic) Coronary artery disease (Chronic) CHF (congestive heart failure) (Chronic) Hospital Course and Treatment Imaging Results: Clinical Impression(s) from Imaging Studies Chest X-Ray 06/08/17 05:25 IMPRESSION: Emphysematous changes in both upper lobes. No pneumonia. No failure. Electronically Signed: Llao Man, at 6:27 EST Tel , Service support , None Operations: None Procedures: None Summary of Care Provided: 71-year-old male with past medical history of presumed COPD, former smoker, hypertension, hyperlipidemia, GERD who comes in with complaints of shortness of breath and cough ongoing for a week and has managed as acute COPD exacerbation. Special panel was positive for RSV 1. Acute hypoxic respiratory insufficiency to acute COPD exacerbation, patient improved on breathing treatments, IV staroids, was transitioned to po steroids, did not qualify for home/ambulatory oxygen. 2. Acute exacerbation of COPD secondary to RSV, improved, will need to folow-up with taper and floater in the outpatient for PFTs and walking oximetry. 3. Hypertension, was uncontrolled, carvedilol was increased to 12.5mg po daily, continued on 20mg lisinopril, he knows to follow-up within 2 weeks with primary doctor for BP check and possible medication adjustments. 4. Hyperlipidemia,on pravastatin 5. Chronic Diastolic heart failure/pulmonary hypertension, was not in acute exacerbation during this admission, EF 60%, taken off lasix on acoount of contraction alkalosis. 6. Metabolic alkalosis secondary to contraction alkalosis, resolving after IV fluids, off lasix, will need labs repeated in outpatient. 7. GERD, on famotidine Discharge Diet: Low fat/ Low Cholesterol, 2000 mg Sodium Diet Discharge Activity: Return to Normal Activity Home Medications: Medications to take at Discharge Lisinopril [Zestril] 20 mg PO DAILY 05/25/13 Pravastatin [Pravachol] 40 mg PO QHS 05/25/13 Albuterol/Ipratropium [Combivent Inhaler] 1 puff INHALATION 4X/DAY #1 inhaler 05/26/13 Aspirin E.C. [Ecotrin] 81 mg PO DAILY 06/08/17 Budesonide/Formoterol 160/4.5 [Symbicort 160/4.5 Mcg Inhaler (SP)] 1 inh PO BID 06/08/17 Ranitidine [Zantac] 150 mg PO BID 06/08/17 Carvedilol [Coreg] 12.5 mg PO BID #60 tab 06/11/17 Guaifenesin [Mucinex] 1,200 mg PO BID #14 tab 06/11/17 Prednisone 10 mg PO UD #30 tab 06/11/17 Following Prescrptions Were Given to Patient: Prednisone 10 mg PO UD #30 tab Carvedilol [Coreg] 12.5 mg PO BID #60 tab Guaifenesin [Mucinex] 1,200 mg PO BID #14 tab Other Amb Orders: Basic Metabolic Profile (BMP) Location: Laboratory Primary Care Physician: Clifton Del Valle Chi, MD [Primary Care Provider] - Please follow up with your Primary Care Physician in: within 2 weeks Please Follow Up With: Santino Conrad MD When: within 2 weeks for pulmonary function tests Disposition: Home Minutes spent on discharge:: 25 Patient Condition:: Stable Meaningful Use Info Meaningful Use Diagnoses (Choose all that apply): None applicable Code Visit Inpatient E&M: 45153 Disch Hosp
== END 2017-06-11 15:10 | disposition home or self-care (01) | DRG 191 ==
LOC: ED 07:50 → MS3 07:55
PROVIDERS: Admitting Provider Internal Medicine; Emergency Provider Emergency Medicine; Family Provider Family Medicine Geriatric Medicine; PCP Family Medicine Geriatric Medicine; Visit Provider Internal Medicine
DX: J44.1 Chronic obstructive pulmonary disease with (acute) exacerbation (principal); B97.4 Respiratory syncytial virus as the cause of diseases classified elsewhere; E87.3 Alkalosis; I27.20 Pulmonary hypertension, unspecified; I11.0 Hypertensive heart disease with heart failure; I50.32 Chronic diastolic (congestive) heart failure; I47.1 Supraventricular tachycardia; R09.02 Hypoxemia; I25.10 Atherosclerotic heart disease of native coronary artery without angina pectoris; E87.6 Hypokalemia; E78.5 Hyperlipidemia, unspecified; K21.9 Gastro-esophageal reflux disease without esophagitis; Z79.82 Long term (current) use of aspirin; Z79.899 Other long term (current) drug therapy; Z87.891 Personal history of nicotine dependence
CPT/HCPCS: 36415; 36600; 71045; 80048; 80076; 82803; 83036; 83735; 83880; 84100; 84484; 85025; 85610; 87449; 87633; 93005; 93306; 94640; 94667; 94668; 99285; J7030; J7040; J7050; A4216; J2405

== ENCOUNTER 2017-06-21 09:17 | Emergency (ER) | payer MEDICARE, MEDICAID, SELFPAY ==
[2017-06-21] VITALS (9 sets, daily range): BP systolic 75–105; BP diastolic 39–75; PULSE 83–173; RESP 20–38; TEMP 36.6–36.9; O2SAT 2–100; BMI 30.6
--- NOTE | 2017-06-21 09:19 | EKG12_ITS ---
Test Reason : SOB Blood Pressure : / mmHG Vent. Rate : 102 BPM Atrial Rate : 141 BPM P-R Int : 000 ms QRS Dur : 084 ms QT Int : 392 ms P-R-T Axes : 000 076 179 degrees QTc Int : [address] & T wave abnormality, consider inferolateral ischemia Abnormal ECG Confirmed by MAURISIO KESSLER, EDGAR ([id number]), pictures editor MARIAN VALLE ([id number]) on 06/27/2017 3:58:53 PM Referred By: LENNOX Confirmed By:EDGAR FORDE MD
--- NOTE | 2017-06-21 09:25 | EKG12_ITS ---
Test Reason : REPEAT Blood Pressure : / mmHG Vent. Rate : 098 BPM Atrial Rate : 098 BPM P-R Int : 152 ms QRS Dur : 082 ms QT Int : 372 ms P-R-T Axes : 089 063 201 degrees QTc Int : 474 ms Sinus rhythm with marked sinus arrhythmia with Premature supraventricular complexes ST & T wave abnormality, consider inferior ischemia ST & T wave abnormality, consider anterolateral ischemia Prolonged QT Abnormal ECG Confirmed by MAURISIO KESSLER, EDGAR ([id number]), editor managing director MARIAN VALLE ([id number]) on 06/27/2017 3:01:27 PM Referred By: LENNOX Confirmed By:EDGAR FORDE MD
--- NOTE | 2017-06-21 09:25 | RAD_ITS ---
STUDY: X-RAY CHEST REASON FOR EXAM: Male, 71 years old. Dyspnea. Dysrhythmia. TECHNIQUE: Single AP portable view of the chest. COMPARISON: Comparison is made with prior study dated June 08, 2017. FINDINGS: EKG electrodes are seen. Hyperinflation. Scattered calcified granulomas. There is no demonstrated pleural abnormality. Normal size heart. Normal mediastinum and chelle. Normal visualized pulmonary arteries. There is atherosclerotic calcification of the aortic arch with tortuosity. There are diffuse degenerative changes of the visualized thoracic spine. Normal visualized ribs, clavicles, and shoulders. There is no demonstrated abnormality of the visualized soft tissue structures of the upper abdomen. RAD/Chest 1 View (Portable) IMPRESSION: Hyperinflation. The lungs are clear. Electronically Signed: Jeff Rosario MD at 9:56 EST Tel [phone], Service support ,
[2017-06-21] MEDS: dilTIAZem 25 MG/5 ML Vial 20 MG IV BOLUS (09:33)
[2017-06-21] MEDS: 0.9% Normal Saline 1,000 ML 1000 ML IV ×2 (09:33→10:48)
--- NOTE | 2017-06-21 09:36 | EKG12_ITS ---
Test Reason : SOB Blood Pressure : / mmHG Vent. Rate : 173 BPM Atrial Rate : 187 BPM P-R Int : 000 ms QRS Dur : 086 ms QT Int : 262 ms P-R-T Axes : 000 080 243 degrees QTc Int : 444 ms Atrial fibrillation Marked ST abnormality, possible inferior subendocardial injury Abnormal ECG Confirmed by MAURISIO KESSLER, EDGAR ([id number]), editor at large MARIAN VALLE ([id number]) on 06/27/2017 3:59:09 PM Referred By: CLAUDETTE Confirmed By:EDGAR FORDE MD
[2017-06-21] MEDS: Ipratropium/Albuterol Sulfate 3 ML AMPUL.NEB INHALATION (09:39)
[2017-06-21 09:58] LABS: Absolute Lymphocyte Count 5.71 X10^3/ul (0.83-4.51); Basophil# 0.02 X10^3/uL; Basophil% 0.1 % (0-1); Hematocrit 28.8 % (40-54); Hemoglobin 9.4 g/dl (13.0-16.5); Lymphocyte # 5.71 X10^3/ul (4.0); Mean Corp Hgb Conc 32.6 g/gl (32-36); Mean Platelet Vol. 9.8 fl (6.2-12.0); Monocyte# 2.72 X10^3/uL; Monocyte% 8.6 % (0-10); Neutrophil # 23.03 X10^3/uL (2.7-7.7); Neutrophil % 72.6 % (47-70); Platelet Count 324 K/mm3 (150-450); RBC Distribution Width CV 14.2 % (11.6-14.6); RBC Distribution Width SD 48.9 fl (35.1-43.9); Red Blood Count 3.03 M/mm3 (4.6-6.2)
--- NOTE | 2017-06-21 10:06 | CT_ITS ---
STUDY: CT BRAIN WITHOUT CONTRAST REASON FOR EXAM: Male, 71 years old. Mental status changes. RADIATION DOSAGE (If Supplied By Facility): CTDIvol = ( 44.99 ) mGy, DLP = ( 796.11 ) mGycm TECHNIQUE: Transaxial CT imaging of the brain was performed without administration of intravenous contrast material. Individualized dose optimization techniques were used for this CT. COMPARISON: None. FINDINGS: Normal soft tissue structures. Normal calvarium. There is mild cerebral atrophy with widening of the extra-axial spaces and ventricular dilatation. There are areas of decreased attenuation within the white matter tracts of the supratentorial brain, consistent with microvascular disease changes. There are small punctate calcifications of the basal ganglia which are seen in the aging brain as a normal variant. I suspect a small lacunar infarct in the left thalamus. Normal brainstem. There is mild cerebellar atrophy. There is no intracranial hemorrhage. There are no findings of an acute ischemic infarction. Atherosclerotic calcification of the vertebral arteries and cavernous portions of the internal carotid arteries bilaterally. Air fluid levels in both maxillary sinuses. CT/Brain/Head without Contrast IMPRESSION: Chronic involutional changes of the brain. I suspect a small lacunar infarct in the left thalamus. Electronically Signed: Jeff Rosario MD at 11:27 EST Tel [phone], Service support ,
--- NOTE | 2017-06-21 10:14 | ED.RN ---
LAB RESULTED BUN 103, LACTIC 4.8, PHYSICIAN NOTIFIED
[2017-06-21 10:15] LABS: Anion Gap 12 (5-15); BUN 103 mg/dL (7-18); BUN/Creat Ratio 56.3 RATIO (10-20); Calcium,Total 9.3 mg/dL (8.5-10.1); Chloride 84 mmol/L (98-107); Creatinine, Serum 1.83 mg/dL (0.70-1.30); EST Glomerular Filtration Rate 39 mL/min (>60); Est Glom Filt Rate - Afr Amer 47 mL/min (>60); Estimated Creatinine Clearance 37.02 ml/min; Glucose 119 mg/dL (74-106); Lactic Acid 4.8 mmol/L (0.4-2.0); Potassium 3.6 mmol/L (3.5-5.1); Sodium Level 139 mmol/L (136-145)
[2017-06-21 10:17] LABS: Differential Indicated SCAN CRITERIA MET; POSITIVE COUNT YES; POSITIVE DIFFERENTIAL YES; POSITIVE MORPHOLOGY NO; White Blood Count 31.7 K/mm3 (4.4-11.0)
[2017-06-21 10:46] LABS: Allen Test POS; Base Excess 21 mmol/L (-2 to +2); Bicarbonate 42.2 mmol/L (22-26); Blood Gas Specimen Type ART; O2 Delivery Device Nasal Can; PO2 62 mmHG (75-100); SITE R Radial; SO2 94 % (95-99); Total Carbon Dioxide 44 mmol/L; pCO2 43.8 mmHg (35-45); pH 7.59 (7.35-7.45)
[2017-06-21] MEDS: 0.9% Normal Saline 1,000 ML 15 ML IV (10:48)
[2017-06-21 10:50] LABS: Bacteria 0 SEEN /hpf (None Seen); White Blood Cells 0 SEEN /hpf (0-5)
[2017-06-21 10:54] LABS: Color, Urine Yellow (Yellow); Glucose, Dipstick Normal (Normal); Ketone-Dipstick Negative (Negative); Leukocyte Esterase-Dipstick 25 /ul (Negative); Nitrite-Dipstick Negative (Negative); Occult Blood-Urine 10 /ul (Negative); Protein-Dipstick 15 mg/dl (Negative); Specific Gravity, Urine 1.015 (1.002-1.030); Urine Bilirubin Dipstick Negative (Negative); Urine Clarity Clear (Clear); Urine Urobilinogen Normal (Normal)
[2017-06-21 11:08] LABS: Red Blood Cells-Urine 0-5 SEEN /hpf (0-5)
[2017-06-21 11:09] LABS: Hyaline Cast 0-5 SEEN /lpf (0-5); Mucous, Urine RARE /hpf (<or=2+); Squamous Epithelial Cells - UA 0-5 SEEN /hpf (0-5)
--- NOTE | 2017-06-21 11:43 | ED.DCSUM_ITS ---
- ER Visit Summary Date of Service: 06/21/17 Chief Complaint: [Shortness of breath] History of Present Illness: The patient is a 71 M [presents to the emergency department via EMS with complaint of generalized weakness and shortness of breath. Patient was supposed to have a doctor's appointment today and his sister came by to take him however he was found to be very weak and pale and EMS was called when patient could walk. Patient denies any chest pain or abdominal pain. He is a poor historian and is slow to respond at times. And was admitted about 10 days ago for COPD exacerbation. Patient does state that he has had some black stools. Patient unsure how long they have been black. Patient apparently was a heavy drinker however he quit about 3 months ago.] Physical Examination: [HEENT-PERRLA, EOMI. Cranial nerves II through XII grossly intact. TMs clear. Mucous membranes moist. No adenopathy. Cardiovascular-irregularly irregular and tachycardic, no murmurs Lungs-clear to auscultation, chest wall stable without crepitus or subcu emphysema Abdomen-normoactive bowel sounds, soft, nontender, no rebound or rigidity, no peritoneal signs. Rectal exam-no masses, patient has black tarry stool that is Hemoccult positive Extremities-intact ?4, normal range of motion, normal pulses, atraumatic]. +2 edema both lower extremities. Test Results: [EKG obtained on arrival showed atrial fibrillation with a rapid ventricular response with a ventricular rate of 173. CBC with differential showed a white blood cell count of 31,000, hemoglobin 9.4, hematocrit 29, platelets 324. Chemistries unremarkable. BUN was 103 and creatinine was 1.83. Troponin was 0.16. Urinalysis was normal. Influenza screen was negative. Lactate was elevated 4.8. CT scan of the brain without contrast on my interpretation shows nothing acute however official report from radiology pending.] Emergency Department Course and Treatment: [Patient initially received Cardizem 20 mg IV bolus for his A. fib which did slow him down into the 90s and eventually patient converted to sinus rhythm. Patient became slightly hypotensive and was given 3 L of fluid. Patient did have an echo 2 weeks ago that showed a ejection fraction of 60%. Patient empirically was started on Zosyn and blood cultures were ordered. Given the elevated BUN and black stool I suspect likely upper GI bleed and approximately 10 days ago his hemoglobin was 16. Patient was ordered type and cross of 2 units packed red cells.] Treatment Plan: [Patient will be transferred to [facility] as we do not have GI coverage today.] Disposition: [Transfer to [facility]] Impression: [Upper GI bleed A. fib RVR new onset Anemia Leukocytosis-rule out sepsis] This note was generated with [employer] dictation software. It may contain incorrect words, spelling, and punctuation that were not noted in review of the chart prior to signing ED Disposition - Plan for ED Patient: Chief Complaint: Shortness of Breath Referrals: Clifton Del Valle Chi, MD [Primary Care Provider] -
[2017-06-21 13:38] LABS: Reflex Lactate? Y
[2017-06-22 13:45] LABS: Pathologist Review Reviewed
== END 2017-06-21 13:37 | disposition short-term general hospital (02) ==
PROVIDERS: Emergency Provider Emergency Medicine; Family Provider Family Medicine Geriatric Medicine; PCP Family Medicine Geriatric Medicine
DX: K92.2 Gastrointestinal hemorrhage, unspecified (principal); I48.91 Unspecified atrial fibrillation; D64.9 Anemia, unspecified; D72.829 Elevated white blood cell count, unspecified; I25.10 Atherosclerotic heart disease of native coronary artery without angina pectoris; I11.0 Hypertensive heart disease with heart failure; I50.9 Heart failure, unspecified; J44.9 Chronic obstructive pulmonary disease, unspecified; Z79.899 Other long term (current) drug therapy; Z79.82 Long term (current) use of aspirin; Z79.51 Long term (current) use of inhaled steroids
CPT/HCPCS: 36600; 51702; 70450; 71045; 80048; 80320; 81001; 82274; 82803; 83605; 84484; 85025; 86850; 86900; 86920; 86922; 87040; 87804; 93005; 94640; 96361; 96365; 96367; 96375; 99285; J7030; P9016; A4216; G0480

== ENCOUNTER → 2017-07-18 12:21 | Outpatient (CLI) | payer MEDICARE, MEDICAID, SELFPAY ==
[2017-07-18 16:18] LABS: Anion Gap 13 (5-15); BUN 13 mg/dL (7-18); BUN/Creat Ratio 13.9 RATIO (10-20); Calcium,Total 8.9 mg/dL (8.5-10.1); Chloride 101 mmol/L (98-107); Creatinine, Serum 0.93 mg/dL (0.70-1.30); EST Glomerular Filtration Rate 85 mL/min (>60); Est Glom Filt Rate - Afr Amer 102 mL/min (>60); Glucose 109 mg/dL (74-106); Potassium 3.2 mmol/L (3.5-5.1); Sodium Level 142 mmol/L (136-145)
[2017-07-18 16:21] LABS: Absolute Lymphocyte Count 2.31 X10^3/ul (0.83-4.51); Basophil# 0.02 X10^3/uL; Basophil% 0.2 % (0-1); Eosinophils% 2.1 % (0-5); Hemoglobin 11.7 g/dl (13.0-16.5); Lymphocyte # 2.31 X10^3/ul (4.0); Mean Corp Hgb Conc 30.8 g/gl (32-36); Mean Corpuscular Hgb 28.1 pg (27.0-32.0); Mean Corpuscular Volume 91.1 fL (80-94); Mean Platelet Vol. 10.2 fl (6.2-12.0); Monocyte# 1.03 X10^3/uL; Monocyte% 10.7 % (0-10); Neutrophil # 6.03 X10^3/uL (2.7-7.7); Neutrophil % 62.5 % (47-70); Platelet Count 453 K/mm3 (150-450); RBC Distribution Width CV 16.5 % (11.6-14.6); RBC Distribution Width SD 53.6 fl (35.1-43.9); Red Blood Count 4.17 M/mm3 (4.6-6.2); White Blood Count 9.6 K/mm3 (4.4-11.0)
[2017-07-18 16:31] LABS: POSITIVE COUNT NO; POSITIVE DIFFERENTIAL NO; POSITIVE MORPHOLOGY NO
== END ==
PROVIDERS: Family Provider Family Medicine Geriatric Medicine; PCP Family Medicine Geriatric Medicine; Visit Provider Family Medicine Geriatric Medicine
DX: I50.9 Heart failure, unspecified (principal); D64.9 Anemia, unspecified
CPT/HCPCS: 36415; 80048; 85025

== ENCOUNTER → 2017-08-15 13:58 | Outpatient (CLI) | payer MEDICARE, MEDICAID, SELFPAY ==
[2017-08-15 15:49] LABS: Absolute Lymphocyte Count 3.39 X10^3/ul (0.83-4.51); Basophil# 0.02 X10^3/uL; Basophil% 0.2 % (0-1); Eosinophil# 0.18 X10^3/uL; Eosinophils% 2.1 % (0-5); Hematocrit 37.5 % (40-54); Hemoglobin 11.8 g/dl (13.0-16.5); Lymphocyte # 3.39 X10^3/ul (4.0); Lymphocyte % 40.5 % (19-41); Mean Corp Hgb Conc 31.5 g/gl (32-36); Mean Corpuscular Hgb 28.8 pg (27.0-32.0); Mean Corpuscular Volume 91.5 fL (80-94); Mean Platelet Vol. 10.2 fl (6.2-12.0); Monocyte# 0.74 X10^3/uL; Monocyte% 8.8 % (0-10); Neutrophil # 4.04 X10^3/uL (2.7-7.7); Neutrophil % 48.3 % (47-70); Platelet Count 450 K/mm3 (150-450); RBC Distribution Width CV 15.6 % (11.6-14.6); RBC Distribution Width SD 51.2 fl (35.1-43.9); White Blood Count 8.4 K/mm3 (4.4-11.0)
[2017-08-15 15:53] LABS: POSITIVE COUNT NO; POSITIVE DIFFERENTIAL NO; POSITIVE MORPHOLOGY NO
[2017-08-15 16:01] LABS: ALB/GLOB Ratio 0.9 RATIO (0.9-2.4); AST(SGOT) 18 U/L (15-37); Alanine Aminotransfer ALT/SGPT 27 U/L (16-61); Albumin, Serum 3.5 g/dL (3.2-5.0); Alkaline Phosphatase 71 U/L (45-117); Anion Gap 11 (5-15); BUN 12 mg/dL (7-18); BUN/Creat Ratio 12.6 RATIO (10-20); Calcium,Total 9.1 mg/dL (8.5-10.1); Chloride 99 mmol/L (98-107); Creatinine, Serum 0.95 mg/dL (0.70-1.30); EST Glomerular Filtration Rate 83 mL/min (>60); Est Glom Filt Rate - Afr Amer 100 mL/min (>60); Globulin 3.9 g/dL (2.2-4.2); Glucose 95 mg/dL (74-106); Potassium 3.5 mmol/L (3.5-5.1); Protein, Total 7.4 g/dL (6.4-8.2); Sodium Level 138 mmol/L (136-145); Thyroid Stim Hormone (TSH) 1.59 uIU/mL (0.358-3.74)
[2017-08-16 09:51] LABS: Vitamin D,25 Hydroxy 14.3 ng/mL (29.95-100.01)
[2017-08-17 15:56] LABS: Hep C Antibodies <0.1 s/co ratio (0.0-0.9)
== END ==
PROVIDERS: Family Provider Family Medicine Geriatric Medicine; PCP Family Medicine Geriatric Medicine; Visit Provider Family Medicine Geriatric Medicine
DX: E87.6 Hypokalemia (principal); E55.9 Vitamin D deficiency, unspecified; R53.83 Other fatigue; Z13.89 Encounter for screening for other disorder
CPT/HCPCS: 36415; 80053; 82306; 84443; 85025; 86803

== ENCOUNTER → 2018-02-14 12:03 | Outpatient (CLI) | payer MEDICARE, SELFPAY ==
[2018-02-14 12:43] LABS: Absolute Lymphocyte Count 2.56 X10^3/ul (0.83-4.51); Absolute Neutrophil Count 3.6 X10^3/uL (2.0-7.7); Basophil# 0.05 X10^3/uL; Basophil% 0.7 % (0-1); Eosinophils% 4.1 % (0-5); Hematocrit 34.6 % (40-54); Hemoglobin 10.2 g/dl (13.0-16.5); Lymphocyte # 2.56 X10^3/ul (4.0); Lymphocyte % 34.9 % (19-41); Mean Corp Hgb Conc 29.5 g/gl (32-36); Mean Corpuscular Hgb 22.4 pg (27.0-32.0); Mean Platelet Vol. 9.8 fl (6.2-12.0); Monocyte# 0.79 X10^3/uL; Monocyte% 10.8 % (0-10); Neutrophil # 3.62 X10^3/uL (2.7-7.7); Neutrophil % 49.4 % (47-70); Platelet Count 419 K/mm3 (150-450); RBC Distribution Width CV 21.4 % (11.6-14.6); RBC Distribution Width SD 57.6 fl (35.1-43.9); Red Blood Count 4.55 M/mm3 (4.6-6.2); White Blood Count 7.3 K/mm3 (4.4-11.0)
[2018-02-14 12:44] LABS: Differential Indicated SCAN CRITERIA MET; POSITIVE COUNT NO; POSITIVE DIFFERENTIAL NO; POSITIVE MORPHOLOGY YES
[2018-02-14 12:57] LABS: Vitamin D,25 Hydroxy 28.4 ng/mL (29.95-100.01)
[2018-02-14 12:58] LABS: ALB/GLOB Ratio 1.1 RATIO (0.9-2.4); AST(SGOT) 17 U/L (15-37); Alanine Aminotransfer ALT/SGPT 23 U/L (16-61); Albumin, Serum 4.3 g/dL (3.2-5.0); Alkaline Phosphatase 96 U/L (45-117); Anion Gap 9 (5-15); BUN 26 mg/dL (7-18); BUN/Creat Ratio 20.6 RATIO (10-20); Chloride 102 mmol/L (98-107); Creatinine, Serum 1.26 mg/dL (0.70-1.30); EST Glomerular Filtration Rate 60 mL/min (>60); Est Glom Filt Rate - Afr Amer 72 mL/min (>60); Glucose 128 mg/dL (74-106); Potassium 4.3 mmol/L (3.5-5.1); Protein, Total 8.3 g/dL (6.4-8.2); Sodium Level 138 mmol/L (136-145); Thyroid Stim Hormone (TSH) 1.92 uIU/mL (0.358-3.74)
[2018-02-14 13:08] LABS: Anisocytosis 1+; Hypochromasia 1+; Microcytosis 1+; Platelet Estimate ADEQUATE (ADEQ)
== END ==
PROVIDERS: Family Provider Family Medicine Geriatric Medicine; PCP Family Medicine Geriatric Medicine; Visit Provider Family Medicine Geriatric Medicine
DX: E55.9 Vitamin D deficiency, unspecified (principal); R53.83 Other fatigue
CPT/HCPCS: 36415; 80053; 82306; 84443; 85025

== ENCOUNTER → 2018-03-19 11:41 | Outpatient (CLI) | payer MEDICARE, SELFPAY ==
[2018-03-19 12:47] LABS: Hematocrit 37.3 % (40-54); Hemoglobin 10.9 g/dl (13.0-16.5)
== END ==
PROVIDERS: Family Provider Family Medicine Geriatric Medicine; PCP Family Medicine Geriatric Medicine; Visit Provider Family Medicine Geriatric Medicine
DX: D64.9 Anemia, unspecified (principal)
CPT/HCPCS: 36415; 85014; 85018

== ENCOUNTER → 2018-08-16 11:19 | Outpatient (CLI) | payer MEDICARE, SELFPAY ==
[2018-08-16 12:30] LABS: Absolute Lymphocyte Count 2.39 X10^3/ul (0.83-4.51); Basophil# 0.03 X10^3/uL; Basophil% 0.4 % (0-1); Eosinophil# 0.13 X10^3/uL; Eosinophils% 1.5 % (0-5); Hematocrit 46.5 % (40-54); Hemoglobin 15.4 g/dl (13.0-16.5); Lymphocyte # 2.39 X10^3/ul (4.0); Lymphocyte % 28.1 % (19-41); Mean Corp Hgb Conc 33.1 g/gl (32-36); Mean Corpuscular Hgb 30.2 pg (27.0-32.0); Mean Corpuscular Volume 91.2 fL (80-94); Mean Platelet Vol. 9.9 fl (6.2-12.0); Monocyte# 0.96 X10^3/uL; Monocyte% 11.3 % (0-10); Neutrophil # 4.99 X10^3/uL (2.7-7.7); Neutrophil % 58.5 % (47-70); Platelet Count 323 K/mm3 (150-450); RBC Distribution Width SD 52.5 fl (35.1-43.9); White Blood Count 8.5 K/mm3 (4.4-11.0)
[2018-08-16 12:32] LABS: POSITIVE COUNT NO; POSITIVE DIFFERENTIAL NO; POSITIVE MORPHOLOGY NO
[2018-08-16 12:46] LABS: Vitamin D,25 Hydroxy 12.8 ng/mL (29.95-100.01)
[2018-08-16 13:09] LABS: ALB/GLOB Ratio 1.3 RATIO (0.9-2.4); AST(SGOT) 19 U/L (15-37); Alanine Aminotransfer ALT/SGPT 40 U/L (16-61); Albumin, Serum 4.5 g/dL (3.2-5.0); Alkaline Phosphatase 113 U/L (45-117); Anion Gap 8 (5-15); BUN 15 mg/dL (7-18); BUN/Creat Ratio 13.4 RATIO (10-20); Chloride 101 mmol/L (98-107); Creatinine, Serum 1.12 mg/dL (0.70-1.30); EST Glomerular Filtration Rate 68 mL/min (>60); Est Glom Filt Rate - Afr Amer 83 mL/min (>60); Globulin 3.5 g/dL (2.2-4.2); Glucose 101 mg/dL (74-106); Potassium 3.9 mmol/L (3.5-5.1); Sodium Level 138 mmol/L (136-145); Thyroid Stim Hormone (TSH) 1.85 uIU/mL (0.358-3.74)
== END ==
PROVIDERS: Family Provider Family Medicine Geriatric Medicine; PCP Family Medicine Geriatric Medicine; Visit Provider Family Medicine Geriatric Medicine
DX: R53.83 Other fatigue (principal); E55.9 Vitamin D deficiency, unspecified
CPT/HCPCS: 36415; 80053; 82306; 84443; 85025

== ENCOUNTER 2019-01-25 00:53 | Inpatient (IN) | payer MEDICARE, SELFPAY ==
[2019-01-25] VITALS (15 sets, daily range): BP systolic 95–150; BP diastolic 48–104; PULSE 73–99; RESP 15–24; TEMP 36.6–37.4; O2SAT 92–96; BMI 30.9; BMI 30.4; BMI 30.5
--- NOTE | 2019-01-25 01:12 | CT_ITS ---
STUDY: CT ABDOMEN AND PELVIS WITH CONTRAST REASON FOR EXAM: Male, 73 years old. Abdominal pain and distention RADIATION DOSAGE (If Supplied By Facility): CTDIvol = ( 21.35 ) mGy, DLP = ( 1165.86 ) mGycm TECHNIQUE: Transaxial images were obtained from the dome of the diaphragm to the symphysis pubis without oral contrast. Oral and amp; IV Gastrografin and amp; 100mL Isovue-300 100ML was administered. Sagittal and coronal images were reconstructed. Individualized dose optimization techniques were used for this CT. COMPARISON: None. FINDINGS: Bibasilar atelectasis versus scar formation. The visualized portions of the heart are within normal limits. Hypoattenuated lesions in the liver measuring water density. Calcified stones in a nondistended, nonthickened gallbladder. No biliary duct dilatation. Normal spleen. There is moderate peripancreatic inflammatory stranding involving the pancreatic head and uncinate process. There is a 2.6 x 1.8 cm intraparenchymal fluid collection within the anterior pancreatic head. Normal bilateral adrenal glands. There are hypoattenuated lesions within both kidneys measuring near water density. Normal ureters. Normal visualized stomach. Mild mucosal thickening of the duodenal sweep which courses immediately adjacent to the peripancreatic inflammation described above. Mild diverticular disease of the sigmoid colon without localized inflammation. Appendix is visualized and is normal. Mild left carotid calcification of the abdominal vasculature. Normal inferior vena cava. Normal retroperitoneum. Normal urinary bladder. Mild prostatomegaly. Normal abdominal wall. Mild multilevel degenerative change of the spine. CT/Abdomen/Pelvis WITH Contrast IMPRESSION: 1. Acute pancreatitis primarily involving the pancreatic head and uncinate process. 2. 2.6 x 1.8 cm intraparenchymal cystic lesion within the anterior pancreatic head which may represent cystic neoplasm versus possible pancreatic pseudocyst. This could be more definitively characterized with MR imaging of the abdomen. 3. Mild mucosal thickening of the proximal duodenal sweep as it courses adjacent to the peripancreatic region. 4. Cholelithiasis with no evidence of acute cholecystitis. 5. Cysts versus hemangiomas within the liver. 6. Simple appearing bilateral renal cysts. 7. Mild sigmoid colonic diverticulosis with no evidence of acute diverticulitis. 8. Mild prostatomegaly. Electronically Signed: Silverio Bryant MD at 3:31 EDT Tel , Service support ,
--- NOTE | 2019-01-25 01:12 | ED.DCSUM_ITS ---
History of Present Illness Chief Complaint: Abd Pain Narrative: Patient is a 73-year-old male who presents with abdominal pain. He complains of sharp mid upper abdominal pain that began about 5 or 6 PM yesterday, 7 to 8 hours before presentation. It was severe at home but has actually significantly improved currently and he currently only rates it as 1 out of 10. He states that if his pain had only been at the level it is now he would not have come in. However he was getting concerned at home when it was severe as he does have a history of a perforated gastric ulcer in the spring 2017. He did have surgery for this. He denies any other abdominal surgeries such as cholecystectomy appendectomy. He has no history of bowel obstruction. He had some nausea at home earlier although this is also improved. No vomiting. No fevers. Past Medical History - Allergies and Home Meds Allergies/Adverse Reactions: Allergies No Known Allergies Allergy (Verified 06/08/17 05:16) Primary Care Physician: Clifton Del Valle Chi, MD [Primary Care Provider] - Past Medical History: - - COPD, hypertension, hyperlipidemia Surgical History: - - He had excision of a left breast mass when he was 9 years of age and it was benign. Smoking Status: Former smoker - Family History Maternal Family History: Reports: No pertinent history Paternal Family History: Reports: No pertinent history Offspring Family History: Reports: - - He has children but they live in [place] and they have been estranged for many years. Review of Systems All systems negative except as indicated General: Denies: Fever Cardiovascular: Denies: Chest pain Respiratory: Denies: Dyspnea Gastrointestinal: Reports: Abdominal pain, Nausea. Denies: Vomiting, Diarrhea Physical Exam Vital Signs/Narrative: Vital Signs Temp Pulse Resp BP Pulse Ox 01/25/19 00:57 88 22 H 149/104 H 95 01/25/19 00:54 99.4 F H 78 22 H 93 Inital Vital Signs reviewed: Yes General: Well nourished Head: Normocephalic Eyes: EOMI ENT: Moist mucous membranes Neck: Supple Cardiovascular: Regular rate, Regular rhythm Respiratory: No distress, CTA bilaterally Abdomen: Soft, Tender - Mild upper abdominal tenderness without guarding without rebound, nondistended Skin: Normal color Neurological: Alert Psychological: Normal affect Diagnostic/Tx/Re-eval Impressions Abdomen/Pelvis CT 01/25/19 01:12 IMPRESSION: 1. Acute pancreatitis primarily involving the pancreatic head and uncinate process. 2. 2.6 x 1.8 cm intraparenchymal cystic lesion within the anterior pancreatic head which may represent cystic neoplasm versus possible pancreatic pseudocyst. This could be more definitively characterized with MR imaging of the abdomen. 3. Mild mucosal thickening of the proximal duodenal sweep as it courses adjacent to the peripancreatic region. 4. Cholelithiasis with no evidence of acute cholecystitis. 5. Cysts versus hemangiomas within the liver. 6. Simple appearing bilateral renal cysts. 7. Mild sigmoid colonic diverticulosis with no evidence of acute diverticulitis. 8. Mild prostatomegaly. Electronically Signed: Silverio Bryant MD at 3:31 EDT Tel , Service support , 01/25/19 01:12 Abdomen/Pelvis WITH Contrast [CT] Stat Laboratory Results 01/25/19 01/25/19 00:55 00:55 WBC 19.0 H RBC 4.98 Hgb 15.7 Hct 47.6 MCV 95.6 H MCH 31.5 MCHC 33.0 RDW Std Deviation 46.7 H RDW Coeff of Yaneli 13.2 Plt Count 389 MPV 8.6 Immature Gran % (Auto) 0.500 Neut % (Auto) 84.6 H Lymph % (Auto) 9.1 L [place] % (Auto) 5.3 Eos % (Auto) 0.2 Baso % (Auto) 0.3 Absolute Neuts (auto) 16.1 H Absolute Lymphs (auto) 1.72 Nucleated RBC % 0 Sodium 138 Potassium 3.7 Chloride 102 Carbon Dioxide 30.0 Anion Gap 6 BUN 16 Creatinine 1.12 Estim Creat Clear Calc 58.74 Est GFR (MDRD) Af Amer 83 Est GFR (MDRD) Non-Af 68 BUN/Creatinine Ratio 14.3 Glucose 127 H Calcium 9.3 Total Bilirubin 0.40 AST 21 ALT 49 Alkaline Phosphatase 111 Total Protein 8.1 Albumin 4.1 Globulin 4.0 Albumin/Globulin Ratio 1.0 Lipase 551 H - Medical Decision Making Patient's laboratory studies and imaging as above consistent with pancreatitis. There is also a cystic lesion concerning for neoplasm versus pseudocyst. On reevaluation patient states he feels fair. Do feel he should be admitted for further evaluation and treatment. Patient will be discussed with the hospitalist. ED Disposition - Plan for ED Patient: Disposition: Acute Care Hospital [facility] Diagnosis: Pancreatitis Referrals: Clifton Del Valle Chi, MD [Primary Care Provider] -
[2019-01-25 01:17] LABS: Absolute Lymphocyte Count 1.72 X10^3/uL (0.83-4.51); Absolute Neutrophil Count 16.1 X10^3/uL (2.0-7.7); Basophil# 0.05 X10^3/uL; Basophil% 0.3 % (0-1); Eosinophil# 0.04 X10^3/uL; Eosinophils% 0.2 % (0-5); Hematocrit 47.6 % (40-54); Hemoglobin 15.7 g/dL (13.0-16.5); Lymphocyte # 1.72 X10^3/ul (4.0); Lymphocyte % 9.1 % (19-41); Mean Corpuscular Hgb 31.5 pg (27.0-32.0); Mean Corpuscular Volume 95.6 fL (80-94); Mean Platelet Vol. 8.6 fl (6.2-12.0); Monocyte% 5.3 % (0-10); NRBC Flagged by Analyzer 0 % (0-5); Neutrophil # 16.07 X10^3/uL (2.7-7.7); Neutrophil % 84.6 % (47-70); Platelet Count 389 K/mm3 (150-450); RBC Distribution Width CV 13.2 % (11.6-14.6); RBC Distribution Width SD 46.7 fl (35.1-43.9); Red Blood Count 4.98 M/mm3 (4.6-6.2)
[2019-01-25] MEDS: Ipratropium/Albuterol Sulfate 3 ML AMPUL.NEB INHALATION (01:18)
[2019-01-25 01:30] LABS: AST(SGOT) 21 U/L (15-37); Alanine Aminotransfer ALT/SGPT 49 U/L (16-61); Albumin, Serum 4.1 g/dL (3.2-5.0); Alkaline Phosphatase 111 U/L (45-117); Anion Gap 6 (5-15); BUN 16 mg/dL (7-18); BUN/Creat Ratio 14.3 RATIO (10-20); Calcium,Total 9.3 mg/dL (8.5-10.1); Chloride 102 mmol/L (98-107); Creatinine, Serum 1.12 mg/dL (0.70-1.30); EST Glomerular Filtration Rate 68 mL/min (>60); Est Glom Filt Rate - Afr Amer 83 mL/min (>60); Estimated Creatinine Clearance 58.74 ml/min; Glucose 127 mg/dL (74-106); Lipase 551 U/L (73-393); Potassium 3.7 mmol/L (3.5-5.1); Protein, Total 8.1 g/dL (6.4-8.2); Sodium Level 138 mmol/L (136-145)
--- NOTE | 2019-01-25 03:45 | PCM.HP.STD ---
Problem List (1) Pancreatitis Status: Acute (2) Acute exacerbation of chronic obstructive pulmonary disease (COPD) Status: Chronic History of Present Illness Date of Admission: 01/25/19 Chief Complaint: abdominal pain The patient is a 73 year old M with a significant history of COPD; tobacco abuse; hypertension; visual impairment from macular degeneration; congestive heart failure; and atrial fibrillation who presented to emergency department with a 2-week history of abdominal pain. His pain is located at his epigastric area. His pain which began 2 weeks ago began after he ate luncheon meat. The pain eventually went away only to reoccur after eating sandwich with olives on the day of this presentation. He describes his pain as a severe and aching but by the time he got to the emergency department his pain was mild and felt like a heartburn. His pain is nonradiating. Although about a week ago he had some pain in his left shoulder that has since disappeared. He describes mild nausea without vomiting. At the emergency department his lipase was mildly elevated. CT of his abdomen showed pancreatic inflammation with pseudocyst versus cystic neoplasm. Of note patient describes an episode of probable perforated gastric ulcer in 2018 for which he had laparoscopic surgery and was intubated for about 2 days. His History of perforated gastric ulcer concerned him enough to come to the emergency department for this new epigastric pain. Past Medical History Past Medical History (Chronic Problems): Chronic Problems Acute exacerbation of chronic obstructive pulmonary disease (COPD) (Chronic) Hypertension (Chronic) Hyperlipidemia (Chronic) COPD (chronic obstructive pulmonary disease) (Chronic) Paroxysmal SVT (supraventricular tachycardia) (Chronic) GERD (gastroesophageal reflux disease) (Chronic) Coronary artery disease (Chronic) CHF (congestive heart failure) (Chronic) Allergies No Known Allergies Allergy (Verified 06/08/17 05:16) Home Medications: Ambulatory Orders Medication Instructions Recorded Albuterol Aerosols [Ventolin 2.5 mg INHALATION Q4H PRN PRN 01/25/19 Aerosols] Apixaban [Eliquis] 5 mg PO BID 01/25/19 Cholecalciferol (Vitamin D3) 1 tab PO DAILY 01/25/19 [Vitamin D3] Diltiazem HCl [Cartia Xt] 240 mg PO DAILY 01/25/19 Fluticasone/Vilanterol [Breo 1 ea IH DAILY 01/25/19 Ellipta Inhaler] Furosemide [Lasix] 40 mg PO BIDLX 01/25/19 Iron Polysaccharide Complex 150 mg PO DAILYCM 01/25/19 [Ferrex 150] Metoprolol Tartrate [Lopressor 50 mg PO BID 01/25/19 (Beta Pa)] Pantoprazole Sodium [Protonix] 40 mg PO BID 01/25/19 Potassium Chloride [K-Dur] 40 meq PO DAILY 01/25/19 Pravastatin [Pravachol] 40 mg PO QHS 01/25/19 Vit A/Vit C/Vit E/Zinc/Copper 1 ea PO BID 01/25/19 [Preservision Areds Softgel] Surgical History: - - He had excision of a left breast mass when he was 9 years of age and it was benign. Surgery for ruptured gastric ulcer Psychiatric History: No pertinent psych hx Lives: Alone Smoking Status: Former smoker - *Family History Maternal History Items: Stroke Paternal History Items: Dementia Offspring History Items: - - He has children but they live in [place] and they have been estranged for many years. Review of Systems Constitutional: Denies: Chills, Fever, Weight Change HEENT: Denies: Head Aches, Sinus Congestion, Sinus Drainage Cardiovascular: Denies: Chest Pain, Palpitations Respiratory: Reports: Shortness of Breath - Chronic. Denies: Cough Gastrointestinal: Reports: Abdominal Pain, Nausea. Denies: Vomiting Genitourinary: Denies: Dysuria Musculoskeletal: Denies: Joint Pain, Joint Tenderness Skin: Denies: Rash, Wounds Neurological: Denies: Numbness, Tingling, Focal weakness Psychiatric: Denies: Anxiety, Depression, Homicidal Ideations, Suicidal Ideations Hematologic/ Lymphatic: Denies: Easy Bruising, Easy Bleeding VTE Information - Inpt Only VTE Present on Admission: No VTE Mechan Device Prophylaxis: SCD's VTE Pharm Prophylaxis ordered?: No Patient Problems: Active and Suspected Problems Pancreatitis (Acute) - Physical Exam General: Alert, Oriented x3, Cooperative HEENT: Atraumatic, PERRLA, EOMI, Normocephalic Neck: Supple, No JVD, Negative Carotid Bruits Lungs: Clear to auscultation, Normal air movement, Short of Breath, Tachypneic Cardiovascular: Regular rate, No murmurs Abdomen: Bowel Sounds Present, Soft, Non Tender Extremities: No edema, Capillary Refill Less than 3 Seconds Skin: No rashes, No breakdown Musculoskeletal: No Tenderness to Palpation of Joints or Extremities Neurological: Cranial nerves II-XII grossly intact Psych/Mental Status: Normal Affect, Appropriate Vital Signs Temp Pulse Resp BP Pulse Ox 99.4 F H 88 15 150/80 H 96 01/25/19 00:54 01/25/19 03:37 01/25/19 03:37 01/25/19 03:37 01/25/19 03:37 Oxygen Delivery Method Room Air Weight: 95 kg Body Mass Index (BMI) 30.9 Laboratory Tests Past 24 Hrs 01/25/19 01/25/19 00:55 00:55 WBC 19.0 H RBC 4.98 Hgb 15.7 Hct 47.6 MCV 95.6 H MCH 31.5 MCHC 33.0 RDW Std Deviation 46.7 H RDW Coeff of Yaneli 13.2 Plt Count 389 MPV 8.6 Immature Gran % (Auto) 0.500 Neut % (Auto) 84.6 H Lymph % (Auto) 9.1 L [place] % (Auto) 5.3 Eos % (Auto) 0.2 Baso % (Auto) 0.3 Absolute Neuts (auto) 16.1 H Absolute Lymphs (auto) 1.72 Nucleated RBC % 0 Sodium 138 Potassium 3.7 Chloride 102 Carbon Dioxide 30.0 Anion Gap 6 BUN 16 Creatinine 1.12 Estim Creat Clear Calc 58.74 Est GFR (MDRD) Af Amer 83 Est GFR (MDRD) Non-Af 68 BUN/Creatinine Ratio 14.3 Glucose 127 H Calcium 9.3 Total Bilirubin 0.40 AST 21 ALT 49 Alkaline Phosphatase 111 Total Protein 8.1 Albumin 4.1 Globulin 4.0 Albumin/Globulin Ratio 1.0 Lipase 551 H Assessment/Plan All Active Problems Pancreatitis (Acute) The patient is a 73 year old M with a significant history of COPD; tobacco abuse; hypertension; visual mpairment for medical degeneration; congestive heart failure; and atrial fibrillation who presented to emergency department with a 2-week history of abdominal pain; elevated lipase; cholelithiasis without any evidence of acute cholecystitis; intraparenchyma pancreatic cystic lesion consistent with acute pancreatitis. Acute pancreatitis Received IV fluid bolus at the emergency department. We will continue patient on lactated Ringer's. Of note patient has a history of congestive heart failure and is on Lasix. Judicious use of fluids. Etiology of pancreatitis: His calcium is not elevated. We will check lipid panel. CT of abdomen and pelvis showed cholelithiasis. Likely pancreatitis from gallstone. Will check ultrasound of his gallbladder to better characterize his gallbladder and to evaluate biliary ducts. Because of a 2.6 x 1.8 cm intraparenchymal pancreatic cystic lesion found on abdominal and pelvis CT which could represent cystic neoplasm versus possible pancreatic pseudocyst will follow radiologist recommendation and get an MRI of his abdomen. Patient reports claustrophobia with some enclosed imaging in the past. Ativan enroute to MRI. Trend CBC and BMP. We will consult general surgery to evaluate patient for cholecystectomy. Patient is on Eliquis for A. fib. Will stop Eliquis until recommendation from general surgery. Consider resuming Eliquis when appropriate. Antiemetics with IV Zofran. So far patient has not required pain medication. However will order PRN morphine. We will keep n.p.o. except meds for ultrasound of gallbladder. Neutrophilic leukocytosis White count of 19 with predominant neutrophils. Likely due to pancreatitis. Trend. Liver Lesion Cystic versus hemangioma per CT Follow up longitudinally outpatient. Congestive heart failure On home Lasix with potassium. Hold Lasix at this time due to hydration secondary to pancreatitis. Judicious use of fluids. COPD Stable. Continue home breathing treatments. DVT prophylaxis SCD ordered at this time. Code Visit OBSV E&M: 24705 Initial observation care L3
[2019-01-25] MEDS: 0.9% Normal Saline 1,000 ML 999 ML IV (04:19)
--- NOTE | 2019-01-25 05:08 | MRI_ITS ---
STUDY: MRI ABDOMEN WITH AND WITHOUT CONTRAST REASON FOR EXAM: Male, 73 years old. Pancreatic lesion TECHNIQUE: Standardized fat and water weighted pulse sequences were obtained in all 3 orthogonal planes post contrast administration. IV Dotarem 18 was administered for the contrast portion of the examination. COMPARISON: CT dated 01/25/2019 FINDINGS: The visualized lung bases are unremarkable. The visualized portions of the heart are within normal limits. There are several cysts noted in the liver. There are no solid or enhancing hepatic lesions. There are multiple gallstones noted in the gallbladder. There is no evidence of choledocholithiasis. There is no intrahepatic or extrahepatic biliary duct dilatation. Again noted is stranding adjacent to the head of the pancreas, consistent with acute pancreatitis. There is a stable 2.5 x 1.9 cm cystic lesion in the pancreatic head. This demonstrates peripheral enhancement but no internal enhancement. There are no solid or nodular components. This likely represents a pseudocyst. The spleen and adrenal glands are within normal limits. There are simple cysts noted in the kidneys. There are no enhancing renal lesions. There is no hydronephrosis. There is no bowel obstruction. The aorta is normal in caliber. MRI/MRI Abd WITH and W/O Contrast IMPRESSION: Redemonstration of stranding adjacent to the pancreas which is consistent with acute pancreatitis. 2.5 x 1.9 cm cystic lesion in the pancreatic head with peripheral enhancement. No internal enhancement. No solid or nodular components. This likely represents a pseudocyst. A follow-up CT or MRI in 6 months is recommended. Gallstones. Simple cysts in the liver and kidneys. Electronically Signed: Varun Brown, at 14:04 EDT Tel , Service support ,
[2019-01-25] MEDS: Lactated Ringers 1,000 ML 100 ML IV (05:49)
[2019-01-25 05:56] LABS: Cholesterol 98 mg/dL (200); High Density Lipoprotein 35 mg/dL; Triglycerides 54 mg/dL; Very Low Density Lipoprotein 11 mg/dL (5-40)
[2019-01-25] MEDS: Budesonide Respules 0.5 MG/2 ML AMPUL.NEB. INHALATION ×2 (07:41→19:40)
[2019-01-25] MEDS: Albuterol 2.5 MG/3 ML VIAL.NEB. INHALATION ×4 (07:41→23:30)
[2019-01-25] MEDS: 0.9% NaCl Peripheral Flush Adult/Peds IV ×2 (08:39→11:35)
[2019-01-25] MEDS: Morphine 2 MG/ML Syringe 1 MG IV ×2 (08:40→23:29)
[2019-01-25] MEDS: Pantoprazole Sodium 40 MG Tablet PO ×2 (08:45→21:32)
[2019-01-25] MEDS: Iron Polysaccharide Complex 150 MG CAPSULE PO (08:45)
[2019-01-25] MEDS: Multivitamin (Healthy Eyes) Capsule 1 CAP PO ×2 (08:45→16:20)
--- NOTE | 2019-01-25 10:38 | CON.PCM_ITS ---
Problem List (1) Pancreatitis Status: Acute Qualifiers: Chronicity: acute Pancreatitis type: unspecified pancreatitis type Acute pancreatitis complication: unspecified Qualified Code(s): K85.90 - Acute pancreatitis without necrosis or infection, unspecified Reason for Consult Date of Consultation: 01/25/19 Reason for Consultation: Pancreatitis History of Present Illness: The patient is a 73 year old M who says his pain started 2 weeks ago. He had pain in the epigastric region which resolved. He said last night this started again and he came to the emergency room. He said the pain is in the epigastric region radiating to the back. He is not having any nausea or vomiting at this time. Past Medical History Past Medical History (Chronic Problems): Chronic Problems Acute exacerbation of chronic obstructive pulmonary disease (COPD) (Chronic) Hypertension (Chronic) Hyperlipidemia (Chronic) COPD (chronic obstructive pulmonary disease) (Chronic) Paroxysmal SVT (supraventricular tachycardia) (Chronic) GERD (gastroesophageal reflux disease) (Chronic) Coronary artery disease (Chronic) CHF (congestive heart failure) (Chronic) Allergies No Known Allergies Allergy (Verified 06/08/17 05:16) Home Medications: Ambulatory Orders Medication Instructions Recorded Albuterol Aerosols [Ventolin 2.5 mg INHALATION Q4H PRN PRN 01/25/19 Aerosols] Apixaban [Eliquis] 5 mg PO BID 01/25/19 Cholecalciferol (Vitamin D3) 1 tab PO DAILY 01/25/19 [Vitamin D3] Diltiazem HCl [Cartia Xt] 240 mg PO DAILY 01/25/19 Fluticasone/Vilanterol [Breo 1 ea IH DAILY 01/25/19 Ellipta Inhaler] Furosemide [Lasix] 40 mg PO BIDLX 01/25/19 Iron Polysaccharide Complex 150 mg PO DAILYCM 01/25/19 [Ferrex 150] Metoprolol Tartrate [Lopressor 50 mg PO BID 01/25/19 (Beta Pa)] Pantoprazole Sodium [Protonix] 40 mg PO BID 01/25/19 Potassium Chloride [K-Dur] 40 meq PO DAILY 01/25/19 Pravastatin [Pravachol] 40 mg PO QHS 01/25/19 Vit A/Vit C/Vit E/Zinc/Copper 1 ea PO BID 01/25/19 [Preservision Areds Softgel] Surgical History: - - He had excision of a left breast mass when he was 9 years of age and it was benign. Surgery for ruptured gastric ulcer Psychiatric History: No pertinent psych hx Lives: Alone Smoking Status: Former smoker - *Family History Maternal History Items: Stroke Paternal History Items: Dementia Offspring History Items: - - He has children but they live in [place] and they have been estranged for many years. Review of Systems Constitutional: Denies: Anorexia, Fever HEENT: Denies: Difficulty Hearing, Difficulty Swallowing Cardiovascular: Denies: Chest Pain Respiratory: Denies: Cough, Shortness of Breath Gastrointestinal: Reports: Abdominal Pain. Denies: Constipation, Diarrhea, Hematemesis, Hematochezia, Nausea, Vomiting Genitourinary: Denies: Incontinence Musculoskeletal: Denies: Arm Pain, Leg Pain Skin: Denies: Dryness Neurological: Denies: Balance problems Psychiatric: Denies: Anxiety Hematologic/ Lymphatic: Denies: Anemia Patient Problems: Active and Suspected Problems Pancreatitis (Acute) - Physical Exam General: Alert, Oriented x3 Neck: No JVD Lungs: Clear to auscultation, Normal air movement Cardiovascular: Regular rate, Regular Rhythm Abdomen: Soft, Distended, Tender - Tender in the epigastric region Extremities: No clubbing Skin: No rashes Musculoskeletal: No Muscle Wasting Neurological: Cranial nerves II-XII grossly intact Psych/Mental Status: Normal Affect Vital Signs Temp Pulse Resp BP Pulse Ox 98.8 F 99 16 104/66 92 01/25/19 08:12 01/25/19 08:12 01/25/19 08:12 01/25/19 08:12 01/25/19 08:12 Oxygen Delivery Method Room Air Weight: 206 lb 5.643 oz Body Mass Index (BMI) 30.4 Intake and Output for Last 24 Hours 01/23/19 01/24/19 01/25/19 23:59 23:59 23:59 Intake Total 1000 / 1000 Output Total 200 / 200 Balance 800 / 800 Laboratory Tests Past 24 Hrs 01/25/19 01/25/19 01/25/19 00:55 00:55 05:30 WBC 19.0 H RBC 4.98 Hgb 15.7 Hct 47.6 MCV 95.6 H MCH 31.5 MCHC 33.0 RDW Std Deviation 46.7 H RDW Coeff of Yaneli 13.2 Plt Count 389 MPV 8.6 Immature Gran % (Auto) 0.500 Neut % (Auto) 84.6 H Lymph % (Auto) 9.1 L [place] % (Auto) 5.3 Eos % (Auto) 0.2 Baso % (Auto) 0.3 Absolute Neuts (auto) 16.1 H Absolute Lymphs (auto) 1.72 Nucleated RBC % 0 Sodium 138 Potassium 3.7 Chloride 102 Carbon Dioxide 30.0 Anion Gap 6 BUN 16 Creatinine 1.12 Estim Creat Clear Calc 58.74 Est GFR (MDRD) Af Amer 83 Est GFR (MDRD) Non-Af 68 BUN/Creatinine Ratio 14.3 Glucose 127 H Calcium 9.3 Total Bilirubin 0.40 AST 21 ALT 49 Alkaline Phosphatase 111 Total Protein 8.1 Albumin 4.1 Globulin 4.0 Albumin/Globulin Ratio 1.0 Triglycerides 54 Cholesterol 98 LDL Cholesterol 52 VLDL Cholesterol 11 HDL Cholesterol 35 L Lipase 551 H Clinical Impression(s) from Imaging Studies Abdomen/Pelvis CT 01/25/19 01:12 IMPRESSION: 1. Acute pancreatitis primarily involving the pancreatic head and uncinate process. 2. 2.6 x 1.8 cm intraparenchymal cystic lesion within the anterior pancreatic head which may represent cystic neoplasm versus possible pancreatic pseudocyst. This could be more definitively characterized with MR imaging of the abdomen. 3. Mild mucosal thickening of the proximal duodenal sweep as it courses adjacent to the peripancreatic region. 4. Cholelithiasis with no evidence of acute cholecystitis. 5. Cysts versus hemangiomas within the liver. 6. Simple appearing bilateral renal cysts. 7. Mild sigmoid colonic diverticulosis with no evidence of acute diverticulitis. 8. Mild prostatomegaly. Electronically Signed: Silverio Bryant MD at 3:31 EDT Tel , Service support , Assessment/Plan All Active Problems Pancreatitis (Acute) 73-year-old male with pancreatitis 1. The patient does have cholelithiasis on CT scan. He also has pancreatitis on CT scan. There is fluid collection in the anterior head of the pancreas. This is concerning for cystic neoplasm versus pseudocyst. The patient says his pain started 2 weeks ago. It is possible the patient had gallstone pancreatitis 2 weeks ago which is now evolving into duodenitis from inflammation as well as pancreatic pseudocyst formation. MRCP is scheduled for today. 2. I would wait on the results of the MRCP before doing any surgical intervention. If the MRCP reveals that this is likely a pseudocyst from his pancreatitis I would perform a laparoscopic cholecystectomy before discharge to prevent this from happening again. If it is a cystic neoplasm the patient would be transferred to a center with a pancreatic surgeon. Jesse Fisher MD Pager: [facility] [address] [place] [address] [address] [place] [phone] Office:
[2019-01-25] MEDS: LORazepam 2 MG/ML Syringe 1 MG IV (11:35)
--- NOTE | 2019-01-25 11:40 | NURSING ---
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 Same given and pt prepared for transport.
--- NOTE | 2019-01-25 11:59 | NURSING ---
PT OFF UNIT FOR MRI
--- NOTE | 2019-01-25 12:06 | CASEMGMT ---
Case Management Progress Note: This repairer typewriter went to bedside to do initial assessment, patient was not at bedside. CM will continue to follow for assessment and DC planning needs. Afua San RNCM
--- NOTE | 2019-01-25 12:37 | PCA ---
pt off floor
[2019-01-25] MEDS: 0.9% Normal Saline 1,000 ML 500 ML IV (16:23)
[2019-01-25 16:36] LABS: Bedside Glucose 106 mg/dL (70-110)
--- NOTE | 2019-01-25 16:40 | CASEMGMT ---
RN FELIPE SPEECH THERAPIST TECHNICIAN CM to room to meet with patient for initial transition planning/care coordination assessment. DONATO WANG introduced self and role at [facility]. Pt voices understanding and consents to assessment at this time. Pt resting in bed in no distress at this time. Pt is A/O at this time and answers all questions appropriately. Care providers, pharmacy, and demographics verified/updated at this time. PCP: Eligio. Specialists: Avionics Safety Inspector Preferred Pharmacy: [facility] Insurance: [employer] [facility] Prescription Benefit: Yes Living Will/HPOA: States does not have LW or HCPOA . Interested in more information and would like to talk with SW. Provided information on advanced directives and given Social Service rac card. Pt made aware if SW is unable to meet with him prior to discharge, that he can make an appt as an out-pt with SW to complete paperwork. Pt voices understanding. LNOK: Sister, Bridgette, and brother. He states only he only wants his sister, Bridgette, listed on demographics as his brother is 80-yrs-old and that he just got out of the hospital. Living Arrangements: Lives alone in one-story apt. States is independent with ADL's and home mgmt tasks. He states there is a lady who comes once a week to help with cleaning that is provided through [employer]. Transportation: Pt states drives self and states no transportation concerns at this time. States his sister will drive him home @ discharge. DME: has the following DME: shower chair, rails/grab bars, medical alert button, and nebulizer. Pt states no need for further DME at this time. HHC/SNF: Hx of W. No history of HHC. Pt wishes to return home and states has no concerns with going home at time of discharge. He was made aware that PT/OT evals are pending. He states even if further therapy is recommended, he does not want any therapy, as he feels he does not need it. Pt made aware, that if he decides in the future that he needs/would like OP therapy or HHC, to discuss this with his PCP. Pt voices understanding. CM to follow for any discharge planning/needs. Pt voices no further concerns/needs at this time. Advised pt to ask for CM if any further questions/concerns/needs arise. Voices understanding. PLAN: Home w/discharge plans in place. German YANEZN RN CM
--- NOTE | 2019-01-25 18:16 | PCM.PN.HOSP ---
Patient Problems: Active and Suspected Problems Pancreatitis (Acute) Subjective: States that he is feeling okay, and that his pain is controlled. Said his urine is still fairly dark and he has had minimal output. Vitals/I&O's: Vital Signs Temp Pulse Resp BP Pulse Ox 98.0 F 82 18 118/68 96 01/25/19 17:59 01/25/19 17:59 01/25/19 17:59 01/25/19 17:59 01/25/19 17:59 Oxygen Delivery Method Room Air Weight: 206 lb 5.643 oz Body Mass Index (BMI) 30.4 Intake and Output for Last 24 Hours 01/23/19 01/24/19 01/25/19 23:59 23:59 23:59 Intake Total 2000.00 / 1999.00 Output Total 550 / 550 Balance 1450.00 / 1450.00 General: Alert, Oriented x3, Cooperative, No apparent distress HEENT: Atraumatic, PERRLA, EOMI, Normocephalic Oral: Dry Mucosa Neck: Supple, No JVD Lungs: Clear to auscultation, Normal air movement, No rhonchi, No wheeze, No rales Cardiovascular: Regular rate, Regular Rhythm, Normal S1, Normal S2, No murmurs Abdomen: Soft, Non-Distended, No Hepato-splenomegaly, Tender - Tender to the epigastric area Extremities: No edema, Capillary Refill Less than 3 Seconds Skin: No rashes, No breakdown Neurological: Neuro grossly intact, Sensory exam intact to light touch and pain Psych/Mental Status: Normal Affect, Appropriate Laboratory Results 01/25/19 00:55: WBC 19.0 H, RBC 4.98, Hgb 15.7, Hct 47.6, MCV 95.6 H, MCH 31.5, MCHC 33.0, RDW Std Deviation 46.7 H, RDW Coeff of Yaneli 13.2, Plt Count 389, MPV 8.6, Immature Gran % (Auto) 0.500, Neut % (Auto) 84.6 H, Lymph % (Auto) 9.1 L, [place] % (Auto) 5.3, Eos % (Auto) 0.2, Baso % (Auto) 0.3, Absolute Neuts (auto) 16.1 H, Absolute Lymphs (auto) 1.72, Nucleated RBC % 0 01/25/19 00:55: Sodium 138, Potassium 3.7, Chloride 102, Carbon Dioxide 30.0, Anion Gap 6, BUN 16, Creatinine 1.12, Estim Creat Clear Calc 58.74, Est GFR (MDRD) Af Amer 83, Est GFR (MDRD) Non-Af 68, BUN/Creatinine Ratio 14.3, Glucose 127 H, Calcium 9.3, Total Bilirubin 0.40, AST 21, ALT 49, Alkaline Phosphatase 111, Total Protein 8.1, Albumin 4.1, Globulin 4.0, Albumin/Globulin Ratio 1.0, Lipase 551 H 01/25/19 05:30: Triglycerides 54, Cholesterol 98, LDL Cholesterol 52, VLDL Cholesterol 11, HDL Cholesterol 35 L 01/25/19 10:40: Carcinoembryonic Ag Pending, CA 19-9 Serial Monitor Pending 01/25/19 10:40: CA 19-9 Serial Monitor Pending 01/25/19 16:27: POC Glucose 106 Current Medications Albuterol Sulfate (Ventolin Aerosols) 2.5 mg INHALATION Q2H PRN PRN PRN Reason: SOB/WHEEZING Albuterol Sulfate (Ventolin Aerosols) 2.5 mg INHALATION Q6HWA.RT [facility] Last Admin: 01/25/19 14:12 Dose: 2.5 mg Documented by: Budesonide (Pulmicort Aerosol) 0.5 mg INHALATION Q12H.RT [facility] Last Admin: 01/25/19 07:41 Dose: 0.5 mg Documented by: Dextrose (D50w Syringe) 0 gm IV X1 PRN; Protocol PRN Reason: Hypoglycemia Diltiazem HCl (Cardizem Cd) 240 mg PO DAILY [facility] Last Admin: 01/25/19 15:03 Dose: Not Given Documented by: Glucagon () 1 mg IM .X1 PRN PRN Reason: Hypoglycemia Sodium Chloride () 1,000 mls @ 150 mls/hr IV .Q6H40M [facility] Lorazepam (Ativan) 1 mg IV X1 PRN PRN Reason: MRI ANXIETY Last Admin: 01/25/19 11:35 Dose: 1 mg Documented by: Melatonin (Melatonin) 3 mg PO QHS PRN PRN PRN Reason: INSOMNIA Metoprolol Tartrate (Lopressor (Beta Pa)) 50 mg PO BID [facility] Last Admin: 01/25/19 15:03 Dose: Not Given Documented by: Morphine Sulfate () 1 mg IV Q2H PRN PRN PRN Reason: Pain Score 1-10 Last Admin: 01/25/19 08:40 Dose: 1 mg Documented by: Multivitamins/Miner[facility] ([facility]) [facility] Last Admin: 01/25/19 16:20 Dose: 1 capsule Documented by: Ondansetron HCl (Zofran) 4 mg IV Q8H PRN PRN PRN Reason: NAUSEA/VOMITING Pantoprazole Sodium (Protonix) 40 mg PO BID [facility] Last Admin: 01/25/19 08:45 Dose: 40 mg Documented by: Polysaccharide Iron Complex (Ferrex 150) [facility] Last Admin: 01/25/19 08:45 Dose: 150 mg Documented by: Pravastatin Sodium (Pravachol) 40 mg PO DAILY@2200 [facility] Sodium Chloride () 5 - 15 ml IV UD PRN PRN Reason: SALINE FLUSH Last Admin: 01/25/19 11:35 Dose: 10 ml Documented by: Medical Necessity - Tobacco Use Smoking Status: Former smoker Assessment/Plan All Active Problems Pancreatitis (Acute) 1. Acute pancreatitis -LFTs are normal and even though he has stones they do not appear to be causing his pancreatitis at this time, though he may have passed a stone since his pain had started 2 weeks ago -There is a pancreatic head fluid mass and MRCP was obtained that stated that it was likely a pseudocyst -We will give him a 1 L fluid bolus and raise his fluid rate 250 cc an hour given his pancreatitis and his poor urine output -Continue with n.p.o., if in the morning his pain is significantly reduced, then will transition him to a clear liquid diet and then a low-fat diet -We will plan for possible cholecystectomy on Monday -No need to trend lipase, continue with CBC and BMP in the morning -CEA and CA-19-9 were also obtained for further characterization 2. Chronic diastolic heart failure/HTN/A. fib -Is uncertain as his echo and 2018 had a normal EF and potentially pseudo-normal diastolic function -Continue to hold his Lasix and continue with IV fluids -We will hold Eliquis for his A. fib considering surgical intervention is a possibility -Hold metoprolol and Cardizem until he is able to take p.o., his blood pressure has been on the low side 3. COPD not in exacerbation -Stable -Continue with his home inhaler medication DVT: SCDs Code Visit Inpatient E&M: 47305 Subs Hosp L2
[2019-01-25] MEDS: 0.9% Normal Saline 1,000 ML 150 ML IV (18:27)
[2019-01-25] MEDS: Pravastatin 40 MG Tablet PO (21:32)
[2019-01-26] VITALS (8 sets, daily range): BP systolic 123–140; BP diastolic 71–87; PULSE 68–90; RESP 16–20; TEMP 36.4–36.9; O2SAT 92–96
[2019-01-26 00:11] LABS: Bedside Glucose 94 mg/dL (70-110)
[2019-01-26] MEDS: 0.9% Normal Saline 1,000 ML 150 ML IV ×2 (01:15→07:55)
[2019-01-26] MEDS: Albuterol 2.5 MG/3 ML VIAL.NEB. INHALATION ×4 (04:00→14:34)
[2019-01-26] MEDS: Budesonide Respules 0.5 MG/2 ML AMPUL.NEB. INHALATION (06:40)
[2019-01-26 06:44] LABS: Absolute Lymphocyte Count 1.74 X10^3/uL (0.83-4.51); Absolute Neutrophil Count 9.5 X10^3/uL (2.0-7.7); Basophil# 0.03 X10^3/uL; Basophil% 0.2 % (0-1); Eosinophil# 0.02 X10^3/uL; Eosinophils% 0.2 % (0-5); Hematocrit 39.2 % (40-54); Lymphocyte # 1.74 X10^3/ul (4.0); Lymphocyte % 14.1 % (19-41); Mean Corp Hgb Conc 33.2 g/dL (32-36); Mean Corpuscular Hgb 30.9 pg (27.0-32.0); Mean Corpuscular Volume 93.1 fL (80-94); Mean Platelet Vol. 9.1 fl (6.2-12.0); Monocyte# 1.07 X10^3/uL; Monocyte% 8.6 % (0-10); NRBC Flagged by Analyzer 0 % (0-5); Neutrophil # 9.47 X10^3/uL (2.7-7.7); Neutrophil % 76.5 % (47-70); Platelet Count 280 K/mm3 (150-450); RBC Distribution Width CV 13.7 % (11.6-14.6); RBC Distribution Width SD 46.9 fl (35.1-43.9); Red Blood Count 4.21 M/mm3 (4.6-6.2); White Blood Count 12.4 K/mm3 (4.4-11.0)
[2019-01-26 07:06] LABS: Bedside Glucose 120 mg/dL (70-110)
[2019-01-26 07:08] LABS: Anion Gap 6 (5-15); BUN 11 mg/dL (7-18); BUN/Creat Ratio 13.8 RATIO (10-20); Calcium,Total 8.1 mg/dL (8.5-10.1); Chloride 110 mmol/L (98-107); EST Glomerular Filtration Rate 101 mL/min (>60); Est Glom Filt Rate - Afr Amer 122 mL/min (>60); Estimated Creatinine Clearance 82.24 ml/min; Glucose 117 mg/dL (74-106); Potassium 3.8 mmol/L (3.5-5.1); Sodium Level 138 mmol/L (136-145)
[2019-01-26] MEDS: dilTIAZem CD 240 MG Capsule PO (08:19)
[2019-01-26] MEDS: Pantoprazole Sodium 40 MG Tablet PO (08:19)
[2019-01-26] MEDS: Multivitamin (Healthy Eyes) Capsule 1 CAP PO (08:19)
[2019-01-26] MEDS: Metoprolol Tartrate 50 MG Tablet PO (08:19)
[2019-01-26] MEDS: 0.9% Normal Saline 1,000 ML 125 ML IV (08:30)
--- NOTE | 2019-01-26 08:53 | PCM.PN.SRG ---
Patient Problems: Active and Suspected Problems Pancreatitis (Acute) Subjective: Patient reports he is not having any pain this morning. No nausea or vomiting. - Physical Exam General: Alert, Oriented x3, Cooperative Neck: No JVD Lungs: Normal air movement Cardiovascular: Regular Rhythm Abdomen: Soft, Non Tender, Non-Distended Vital Signs Temp Pulse Resp BP Pulse Ox 97.6 F L 80 18 123/77 H 95 01/26/19 08:15 01/26/19 08:19 01/26/19 08:15 01/26/19 08:15 01/26/19 08:15 Oxygen Delivery Method Room Air Weight: 206 lb 5.643 oz Body Mass Index (BMI) 30.4 Intake and Output for Last 24 Hours 01/24/19 01/25/19 01/26/19 23:59 23:59 23:59 Intake Total 3000.00 / 3000.00 2072.5 / 2072.5 Output Total 1100 / 1100 400 / 400 Balance 1900.00 / 1900.00 1672.5 / 1672.5 Laboratory Tests Past 24 Hrs 01/25/19 01/25/19 01/26/19 10:40 10:40 06:18 WBC 12.4 H RBC 4.21 L Hgb 13.0 Hct 39.2 L MCV 93.1 MCH 30.9 MCHC 33.2 RDW Std Deviation 46.9 H RDW Coeff of Yaneli 13.7 Plt Count 280 MPV 9.1 Immature Gran % (Auto) 0.400 Neut % (Auto) 76.5 H Lymph % (Auto) 14.1 L [place] % (Auto) 8.6 Eos % (Auto) 0.2 Baso % (Auto) 0.2 Absolute Neuts (auto) 9.5 H Absolute Lymphs (auto) 1.74 Nucleated RBC % 0 Sodium Potassium Chloride Carbon Dioxide Anion Gap BUN Creatinine Estim Creat Clear Calc Est GFR (MDRD) Af Amer Est GFR (MDRD) Non-Af BUN/Creatinine Ratio Glucose Calcium Carcinoembryonic Ag Pending CA 19-9 Serial Monitor Pending Pending 01/26/19 06:18 WBC RBC Hgb Hct MCV MCH MCHC RDW Std Deviation RDW Coeff of Yaneli Plt Count MPV Immature Gran % (Auto) Neut % (Auto) Lymph % (Auto) [place] % (Auto) Eos % (Auto) Baso % (Auto) Absolute Neuts (auto) Absolute Lymphs (auto) Nucleated RBC % Sodium 138 Potassium 3.8 Chloride 110 H Carbon Dioxide 22.0 Anion Gap 6 BUN 11 Creatinine 0.80 Estim Creat Clear Calc 82.24 Est GFR (MDRD) Af Amer 122 Est GFR (MDRD) Non-Af 101 BUN/Creatinine Ratio 13.8 Glucose 117 H Calcium 8.1 L Carcinoembryonic Ag CA 19-9 Serial Monitor POC Glucose 01/26/19 01/26/19 01/25/19 06:56 00:08 16:27 POC Glucose 120 H 94 106 Clinical Impression(s) from Imaging Studies Abdomen MRI 01/25/19 05:08 IMPRESSION: Redemonstration of stranding adjacent to the pancreas which is consistent with acute pancreatitis. 2.5 x 1.9 cm cystic lesion in the pancreatic head with peripheral enhancement. No internal enhancement. No solid or nodular components. This likely represents a pseudocyst. A follow-up CT or MRI in 6 months is recommended. Gallstones. Simple cysts in the liver and kidneys. Electronically Signed: Varun Brown, at 14:04 EDT Tel , Service support , Medical Necessity - Tobacco Use Smoking Status: Former smoker Assessment/Plan All Active Problems Pancreatitis (Acute) 73-year-old male with pancreatitis 1. MRCP showed that this fluid collection is likely a pseudocyst. This may have been from a prior bout of pancreatitis 2 weeks ago when he started experiencing this pain. He does still have acute stranding around the pancreas as well. 2. I currently have him scheduled for laparoscopic cholecystectomy late Monday afternoon. If the patient is ready and wanting to go home before then I can get him in as an outpatient this week. Jesse Fisher MD Pager: [facility] [address] [place] [address], [address] [place] [phone] Office:
--- NOTE | 2019-01-26 10:25 | PCM.PN.HOSP ---
Patient Problems: Active and Suspected Problems Pancreatitis (Acute) Subjective: Doing well, feels a bit better today after having more IV fluids, states that his abdominal pain is significantly better only had a dose of morphine last night at midnight Vitals/I&O's: Vital Signs Temp Pulse Resp BP Pulse Ox 97.6 F L 80 18 123/77 H 95 01/26/19 08:15 01/26/19 08:19 01/26/19 08:15 01/26/19 08:15 01/26/19 08:15 Oxygen Delivery Method Room Air Weight: 206 lb 5.643 oz Body Mass Index (BMI) 30.4 Intake and Output for Last 24 Hours 01/24/19 01/25/19 01/26/19 23:59 23:59 23:59 Intake Total 3000.00 / 3000.00 2072.5 / 2072.5 Output Total 1100 / 1100 400 / 400 Balance 1900.00 / 1900.00 1672.5 / 1672.5 General: Alert, Oriented x3, Cooperative, No apparent distress HEENT: Atraumatic, PERRLA, EOMI, Normocephalic Oral: Dry Mucosa Neck: Supple, No JVD Lungs: Clear to auscultation, Normal air movement, No rhonchi, No wheeze, No rales Cardiovascular: Regular rate, Regular Rhythm, Normal S1, Normal S2, No murmurs Abdomen: Soft, Non-Distended, No Hepato-splenomegaly, no significant tenderness with deep palpation in the epigastric region Extremities: No edema, Capillary Refill Less than 3 Seconds Skin: No rashes, No breakdown Neurological: Neuro grossly intact, Sensory exam intact to light touch and pain Psych/Mental Status: Normal Affect, Appropriate Laboratory Results 01/25/19 10:40: Carcinoembryonic Ag Pending, CA 19-9 Serial Monitor Pending 01/25/19 10:40: CA 19-9 Serial Monitor Pending 01/25/19 16:27: POC Glucose 106 01/26/19 00:08: POC Glucose 94 01/26/19 06:18: WBC 12.4 H, RBC 4.21 L, Hgb 13.0, Hct 39.2 L, MCV 93.1, MCH 30.9, MCHC 33.2, RDW Std Deviation 46.9 H, RDW Coeff of Yaneli 13.7, Plt Count 280, MPV 9.1, Immature Gran % (Auto) 0.400, Neut % (Auto) 76.5 H, Lymph % (Auto) 14.1 L, [place] % (Auto) 8.6, Eos % (Auto) 0.2, Baso % (Auto) 0.2, Absolute Neuts (auto) 9.5 H, Absolute Lymphs (auto) 1.74, Nucleated RBC % 0 01/26/19 06:18: Sodium 138, Potassium 3.8, Chloride 110 H, Carbon Dioxide 22.0, Anion Gap 6, BUN 11, Creatinine 0.80, Estim Creat Clear Calc 82.24, Est GFR (MDRD) Af Amer 122, Est GFR (MDRD) Non-Af 101, BUN/Creatinine Ratio 13.8, Glucose 117 H, Calcium 8.1 L 01/26/19 06:56: POC Glucose 120 H Current Medications Albuterol Sulfate (Ventolin Aerosols) 2.5 mg INHALATION Q2H PRN PRN PRN Reason: SOB/WHEEZING Last Admin: 01/26/19 04:00 Dose: 2.5 mg Documented by: Albuterol Sulfate (Ventolin Aerosols) 2.5 mg INHALATION Q6HWA.RT [facility] Last Admin: 01/26/19 06:41 Dose: 2.5 mg Documented by: Budesonide (Pulmicort Aerosol) 0.5 mg INHALATION Q12H.RT [facility] Last Admin: 01/26/19 06:40 Dose: 0.5 mg Documented by: Dextrose (D50w Syringe) 0 gm IV X1 PRN; Protocol PRN Reason: Hypoglycemia Diltiazem HCl (Cardizem Cd) 240 mg PO DAILY [facility] Last Admin: 01/26/19 08:19 Dose: 240 mg Documented by: Glucagon () 1 mg IM .X1 PRN PRN Reason: Hypoglycemia Sodium Chloride () 1,000 mls @ 125 mls/hr IV .Q8H [facility] Last Admin: 01/26/19 08:30 Dose: 125 mls/hr Documented by: Lorazepam (Ativan) 1 mg IV X1 PRN PRN Reason: MRI ANXIETY Last Admin: 01/25/19 11:35 Dose: 1 mg Documented by: Melatonin (Melatonin) 3 mg PO QHS PRN PRN PRN Reason: INSOMNIA Metoprolol Tartrate (Lopressor (Beta Pa)) 50 mg PO BID [facility] Last Admin: 01/26/19 08:19 Dose: 50 mg Documented by: Morphine Sulfate () 1 mg IV Q2H PRN PRN PRN Reason: Pain Score 1-10 Last Admin: 01/25/19 23:29 Dose: 1 mg Documented by: Multivitamins/Minerals (Healthy Eyes) [facility] Last Admin: 01/26/19 08:19 Dose: 1 capsule Documented by: Ondansetron HCl (Zofran) 4 mg IV Q8H PRN PRN PRN Reason: NAUSEA/VOMITING Pantoprazole Sodium (Protonix) 40 mg PO BID [facility] Last Admin: 01/26/19 08:19 Dose: 40 mg Documented by: Polysaccharide Iron Complex (Ferrex 150) [facility] Last Admin: 01/25/19 08:45 Dose: 150 mg Documented by: Pravastatin Sodium (Pravachol) 40 mg PO DAILY@2200 [facility] Last Admin: 01/25/19 21:32 Dose: 40 mg Documented by: Sodium Chloride () 5 - 15 ml IV UD PRN PRN Reason: SALINE FLUSH Last Admin: 01/25/19 11:35 Dose: 10 ml Documented by: Medical Necessity - Tobacco Use Smoking Status: Former smoker Assessment/Plan All Active Problems Pancreatitis (Acute) 1. Acute pancreatitis -LFTs are normal and even though he has stones they do not appear to be causing his pancreatitis at this time, though he may have passed a stone since his pain had started 2 weeks ago -There is a pancreatic head fluid mass and MRCP was obtained that stated that it was likely a pseudocyst -We will advance his diet to a low-fat full liquid diet and see how he tolerates, decrease fluids to 125 cc/h -We will plan for possible cholecystectomy on Monday -No need to trend lipase -CEA and CA-19-9 were also obtained for further characterization 2. Chronic diastolic heart failure/HTN/A. fib -Is uncertain as his echo and 2018 had a normal EF and potentially pseudo-normal diastolic function -Continue to hold his Lasix and continue with IV fluids -We will hold Eliquis for his A. fib considering surgical intervention is a possibility -Hold metoprolol and Cardizem 3. COPD not in exacerbation -Stable -Continue with his home inhaler medication DVT: SCDs Code Visit Inpatient E&M: 54678 Subs Hosp L2
[2019-01-26] MEDS: Iron Polysaccharide Complex 150 MG CAPSULE PO (10:28)
--- NOTE | 2019-01-26 14:38 | DCINST_ITS ---
- Discharge Diagnoses Current Active Problems: Current Active and Chronic Problems Pancreatitis (Acute) You will use the following diet at home:: Cardiac - low fat Your food should be the consistency of: Regular Your liquids should be the consistency of: Regular/Thin Discharge Activity: Return to Normal Activity Call your doctor if you observe: Fever of 101 or Higher, Shortness of breath, Dizziness, Fainting spells, Swelling in the ankles, Chest pain, Increased palpitations (irregular heartbeat) Allergies/Adverse Reactions: Allergies No Known Allergies Allergy (Verified 06/08/17 05:16) Medications to take at Discharge Albuterol Aerosols [Ventolin Aerosols] 2.5 mg INHALATION Q4H PRN PRN 01/25/19 Cholecalciferol (Vitamin D3) [Vitamin D3] 1 tab PO DAILY 01/25/19 Diltiazem HCl [Cartia Xt] 240 mg PO DAILY 01/25/19 Fluticasone/Vilanterol [Breo Ellipta 100-25 Mcg INH] 1 ea IH DAILY 01/25/19 Iron Polysaccharide Complex [Ferrex 150] 150 mg PO DAILYCM 01/25/19 Metoprolol Tartrate [Lopressor (beta alex)] 50 mg PO BID 01/25/19 Pantoprazole Sodium [Protonix] 40 mg PO BID 01/25/19 Potassium Chloride [K-Dur] 40 meq PO DAILY 01/25/19 Pravastatin [Pravachol] 40 mg PO QHS 01/25/19 Vit A/Vit C/Vit E/Zinc/Copper [Preservision Areds Softgel] 1 ea PO BID 01/25/19 Apixaban [Eliquis] 5 mg PO BID #0 01/26/19 Furosemide [Lasix] 40 mg PO BIDLX #0 01/26/19 Primary Care Physician: Clifton Del Valle Chi, MD [Primary Care Provider] - Please follow up with your Primary Care Physician in: 3-5 days Test Results: Test results from this visit will be discussed in further detail at your follow- up appointment, if applicable. Please Follow Up With: Jesse Fisher MD When: For surgery on Monday or Monday
--- NOTE | 2019-01-26 15:26 | DS.PCM_ITS ---
Discharge Date and Diagnosis Date of Admission: 01/25/19 Date of Discharge: 01/26/19 - Secondary Discharge Diagnosis Chronic Problems Acute exacerbation of chronic obstructive pulmonary disease (COPD) (Chronic) Hypertension (Chronic) Hyperlipidemia (Chronic) COPD (chronic obstructive pulmonary disease) (Chronic) Paroxysmal SVT (supraventricular tachycardia) (Chronic) GERD (gastroesophageal reflux disease) (Chronic) Coronary artery disease (Chronic) CHF (congestive heart failure) (Chronic) Hospital Course and Treatment Imaging Results: CT Abd/Pelvis: MPRESSION: 1. Acute pancreatitis primarily involving the pancreatic head and uncinate process. 2. 2.6 x 1.8 cm intraparenchymal cystic lesion within the anterior pancreatic head which may represent cystic neoplasm versus possible pancreatic pseudocyst. This could be more definitively characterized with MR imaging of the abdomen. 3. Mild mucosal thickening of the proximal duodenal sweep as it courses adjacent to the peripancreatic region. 4. Cholelithiasis with no evidence of acute cholecystitis. 5. Cysts versus hemangiomas within the liver. 6. Simple appearing bilateral renal cysts. 7. Mild sigmoid colonic diverticulosis with no evidence of acute diverticulitis. 8. Mild prostatomegaly. MRCP: IMPRESSION: Redemonstration of stranding adjacent to the pancreas which is consistent with acute pancreatitis. 2.5 x 1.9 cm cystic lesion in the pancreatic head with peripheral enhancement. No internal enhancement. No solid or nodular components. This likely represents a pseudocyst. A follow-up CT or MRI in 6 months is recommended. Gallstones. Simple cysts in the liver and kidneys. Consults: General Surgery Operations: None Procedures: None Summary of Care Provided: Per HPI: The patient is a 73 year old M with a significant history of COPD; to bacco abuse; hypertension; visual impairment from macular degeneration; congestive heart failure; and atrial fibrillation who presented to emergency department with a 2-week history of abdominal pain. His pain is located at his epigastric area. His pain which began 2 weeks ago began after he ate luncheon meat. The pain eventually went away only to reoccur after eating sandwich with olives on the day of this presentation. He describes his pain as a severe and aching but by the time he got to the emergency department his pain was mild and felt like a heartburn. His pain is nonradiating. Although about a week ago he had some pain in his left shoulder that has since disappeared. He describes mild nausea without vomiting. At the emergency department his lipase was mildly elevated. CT of his abdomen showed pancreatic inflammation with pseudocyst versus cystic neoplasm. Of note patient describes an episode of probable perforated gastric ulcer in 2018 for which he had laparoscopic surgery and was intubated for about 2 days. His History of perforated gastric ulcer concerned him enough to come to the emergency department for this new epigastric pain. Hospital Course: 1. Acute [id number]old male with a history of COPD and chronic diastolic heart failure presents with pancreatitis. His lipase was in the 500s and he had stated that he had been having pain for about 2 weeks prior to presentation. His LFTs were normal but the CA CT of his abdomen demonstrated cholelithiasis. He had an MRCP which did not show choledocholithiasis or enlarged duct. But he did have a cystic structure on the CT scan that was further evaluated on the MRI demonstrating that it is more than likely a pseudocyst. His CEA and CA-19-9 were obtained and are pending and will need to be followed up as an outpatient. He was started on IV fluids, and they were increased because of his low urine output and hypotension, and his Lasix were held. He was breathing okay on the time of discharge and had no rales or other findings of CHF. Today on exam he felt that his abdominal pain had essentially resolved and he was given a low-fat diet which she tolerated both for breakfast and lunch without any significant pain he asked to go home. I discussed with him the risks of going home especially since he still has an acute pancreatitis even though it is improving, also if he was still here by Monday then surgery would be able to do his cholecystectomy late afternoon on Monday. He states that he would be better able to get sleep and rest if he was at home. He expressed understanding of the risks of going home and still decided to proceed with discharge. General surgery felt that he would be able to have surgery on elective basis on Monday or Monday of next week, and therefore he will need to continue holding his Eliquis until then. He does have a history of A. fib, and I do not feel that this needs to be bridged at this time since his risk of s troke is relatively low. I also explained this to him and he expressed understanding. 2. Chronic diastolic CHF/HTN/A. fib-his Eliquis was held on admission for the likelihood of potential surgery, however since he is being discharged home in having surgery in Monday his Eliquis will continue to be held until after surgery. This was discussed with the patient. Also initially his Cardizem metoprolol and Lasix were held secondary to the necessity of IV fluids and hypotension. Today on discharge his systolic blood pressures in the 140s and he is received a decent amount of fluid. He can resume his metoprolol and Cardizem, however I stated that he should hold his Lasix until he is taking more consistent p.o. He expressed understanding. I discussed with him that he needs to call the surgeon's office on Monday about having his surgery this week. 3. His other medical diagnoses were evaluated and his home medications were continued where appropriate - Physical Exam Vital Signs Temp Pulse Resp BP Pulse Ox 97.9 F 85 16 140/87 H 96 01/26/19 14:23 01/26/19 14:34 01/26/19 14:34 01/26/19 14:23 01/26/19 14:23 Oxygen Delivery Method Room Air Weight: 206 lb 5.643 oz Body Mass Index (BMI) 30.4 Intake and Output for Last 24 Hours 01/24/19 01/25/19 01/26/19 23:59 23:59 23:59 Intake Total 3000.00 / 3000.00 3222.08 / 3222.08 Output Total 1100 / 1100 600 / 600 Balance 1900.00 / 1900.00 2622.08 / 2622.08 Laboratory Tests Past 24 Hrs 01/26/19 01/26/19 06:18 06:18 WBC 12.4 H RBC 4.21 L Hgb 13.0 Hct 39.2 L MCV 93.1 MCH 30.9 MCHC 33.2 RDW Std Deviation 46.9 H RDW Coeff of Yaneli 13.7 Plt Count 280 MPV 9.1 Immature Gran % (Auto) 0.400 Neut % (Auto) 76.5 H Lymph % (Auto) 14.1 L [place] % (Auto) 8.6 Eos % (Auto) 0.2 Baso % (Auto) 0.2 Absolute Neuts (auto) 9.5 H Absolute Lymphs (auto) 1.74 Nucleated RBC % 0 Sodium 138 Potassium 3.8 Chloride 110 H Carbon Dioxide 22.0 Anion Gap 6 BUN 11 Creatinine 0.80 Estim Creat Clear Calc 82.24 Est GFR (MDRD) Af Amer 122 Est GFR (MDRD) Non-Af 101 BUN/Creatinine Ratio 13.8 Glucose 117 H Calcium 8.1 L POC Glucose 01/26/19 01/26/19 01/25/19 06:56 00:08 16:27 POC Glucose 120 H 94 106 Discharge Activity: Return to Normal Activity Call your doctor if you observe: Fever of 101 or Higher, Shortness of breath, Dizziness, Fainting spells, Swelling in the ankles, Chest pain, Increased palpitations (irregular heartbeat) Home Medications: Medications to take at Discharge Albuterol Aerosols [Ventolin Aerosols] 2.5 mg INHALATION Q4H PRN PRN 01/25/19 Cholecalciferol (Vitamin D3) [Vitamin D3] 1 tab PO DAILY 01/25/19 Diltiazem HCl [Cartia Xt] 240 mg PO DAILY 01/25/19 Fluticasone/Vilanterol [Breo Ellipta 100-25 Mcg INH] 1 ea IH DAILY 01/25/19 Iron Polysaccharide Complex [Ferrex 150] 150 mg PO DAILYCM 01/25/19 Metoprolol Tartrate [Lopressor (beta alex)] 50 mg PO BID 01/25/19 Pantoprazole Sodium [Protonix] 40 mg PO BID 01/25/19 Potassium Chloride [K-Dur] 40 meq PO DAILY 01/25/19 Pravastatin [Pravachol] 40 mg PO QHS 01/25/19 Vit A/Vit C/Vit E/Zinc/Copper [Preservision Areds Softgel] 1 ea PO BID 01/25/19 Apixaban [Eliquis] 5 mg PO BID #0 01/26/19 Furosemide [Lasix] 40 mg PO BIDLX #0 01/26/19 Primary Care Physician: Clifton Del Valle Chi, MD [Primary Care Provider] - Please follow up with your Primary Care Physician in: 3-5 days Please Follow Up With: Jesse Fisehr MD When: For surgery on Monday or Monday Disposition: Home Minutes spent on discharge:: 35 Patient Condition:: Stable Medical Necessity - Tobacco Use Smoking Status: Former smoker Meaningful Use Info Meaningful Use Diagnoses (Choose all that apply): None applicable Code Visit Inpatient E&M: 20366 Disch Hosp
[2019-01-28 13:41] LABS: Carbohydrate Ag 19-9 2261 10 U/mL (0-35)
[2019-01-28 13:47] LABS: Carcinoembryonic Antigen 1.9 ng/mL (0.0-4.7)
== END 2019-01-26 14:54 | disposition home or self-care (01) | DRG 439 ==
LOC: ED 03:41 → MS3 04:28
PROVIDERS: Admitting Provider Hospitalist; Emergency Provider Emergency Medicine; Family Provider Family Medicine Geriatric Medicine; PCP Family Medicine Geriatric Medicine; Referring Provider Hospitalist; Visit Provider Family Medicine
DX: K85.10 Biliary acute pancreatitis without necrosis or infection (principal); K86.3 Pseudocyst of pancreas; I50.32 Chronic diastolic (congestive) heart failure; I47.1 Supraventricular tachycardia; I11.0 Hypertensive heart disease with heart failure; I95.9 Hypotension, unspecified; I25.10 Atherosclerotic heart disease of native coronary artery without angina pectoris; J44.9 Chronic obstructive pulmonary disease, unspecified; I48.91 Unspecified atrial fibrillation; E78.5 Hyperlipidemia, unspecified; K21.9 Gastro-esophageal reflux disease without esophagitis; Z79.01 Long term (current) use of anticoagulants; Z79.899 Other long term (current) drug therapy; Z87.11 Personal history of peptic ulcer disease; Z87.891 Personal history of nicotine dependence
CPT/HCPCS: 36415; 74177; 74183; 80048; 80053; 80061; 82378; 82962; 83690; 85025; 86301; 94640; 97802; 99285; A9575; J7030; J7120; Q9967; A4216

== ENCOUNTER 2019-01-28 16:27 | Inpatient (IN) | payer MEDICARE, SELFPAY ==
[2019-01-25 04:29] VITALS: BMI 30.4
[2019-01-28] VITALS (8 sets, daily range): BP systolic 100–108; BP diastolic 60–72; PULSE 79–105; RESP 16–20; TEMP 36.4–36.5; O2SAT 95–98; BMI 29.2
--- NOTE | 2019-01-28 15:25 | EKG12_ITS ---
Test Reason : AM EKG Blood Pressure : / mmHG Vent. Rate : 068 BPM Atrial Rate : 049 BPM P-R Int : 000 ms QRS Dur : 078 ms QT Int : 424 ms P-R-T Axes : 000 043 023 degrees QTc Int : 450 ms Atrial fibrillation Nonspecific T wave abnormality Abnormal ECG Confirmed by TIERNEY KESSLER, KENNEDY ([id number]), editor dictionary RAMEZ LUTHER ([id number]) on 01/30/2019 2:33:34 PM Referred By: Jesse Fisher Confirmed By:KENNEDY MONET MD
--- NOTE | 2019-01-28 15:25 | ECHOD_ITS ---
Reason For Study: AFIB/FLUTTER Procedure This was a 2D Doppler, Color Flow transthoracic echocardiogram. Exam performed portable in patient room. Left Ventricle Mildly dilated left ventricle. The estimated ejection fraction is 50-55 %. Unable to assess diastolic dysfunction due to arrhythmia. There is mild global hypokinesis of the left ventricle. Right Ventricle Normal size and thickness. Normal systolic function. Atria The left atrium is moderately enlarged. The right atrium is severely enlarged. Normal atrial septum. Mitral Valve The mitral valve is structurally normal. No prolapse or stenosis seen. Trivial mitral valve insufficiency. Tricuspid Valve Normal tricuspid valve. Mild (1+) tricuspid valve insufficiency. Right ventricular systolic pressure estimated to be 40 mmHg. Mild pulmonary hypertension. Aortic Valve Trisinus/trileaflet aortic valve. Mild diffuse aortic valve thickening. There is no aortic stenosis. Pulmonic Valve Normal pulmonic valve. Great Vessels Normal aortic root. Normal arch. The inferior vena cava is dilated. Inferior vena cava collapse with sniff. Pericardium/Pleural No pericardial effusion. MMode/2D Measurements & Calculations LVIDd: 5.2 cm IVSd: 1.0 cm Ao root diam: 3.2 cm LVIDs: 3.3 cm LVPWd: 0.92 cm RVDd: 3.3 cm FS: 36.0 % LAV(MOD-bp): 76.2 ml LA A4 area: 23.0 cm2 LA dimension(2D): 4.1 cm LAV(MOD-sp2): 83.0 ml LAV(MOD-sp4): 70.1 ml RA A4 area: 27.2 cm2 Doppler Measurements & Calculations MV E max oneyda: 113.3 cm/sec Ao V2 max: 118.5 cm/sec LV V1 max: 79.4 cm/sec Ao max P.6 mmHg LV V1 max P.5 mmHg MR max oneyda: 431.6 cm/sec PA V2 max: 78.5 cm/sec TR max oneyda: 258.9 cm/sec MR max P.7 mmHg TR max P.8 mmHg Interpretation Summary Mildly dilated left ventricle. The estimated ejection fraction is 50-55 %. Unable to assess diastolic dysfunction due to arrhythmia. There is mild global hypokinesis of the left ventricle. The left atrium is moderately enlarged. The right atrium is severely enlarged. Trivial mitral valve insufficiency. Mild (1+) tricuspid valve insufficiency. Right ventricular systolic pressure estimated to be 40 mmHg. Mild pulmonary hypertension. The inferior vena cava is dilated Pt appears to be in atrial fibrillation. There is no comparison study available. The study was technically difficult. Ordering Physician: Na Woodward Referring Physician: Jesse Fisher Performed By: Gema Vo, YANDLE, RVT
--- NOTE | 2019-01-28 15:31 | PCM.CONS.GEN ---
Problem List (1) PAF (paroxysmal atrial fibrillation) Status: Chronic (2) Hypertension Status: Chronic Qualifiers: Hypertension type: essential hypertension Qualified Code(s): I10 - Essential (primary) hypertension (3) Hyperlipidemia Status: Chronic Qualifiers: Hyperlipidemia type: moderate mixed hyperlipidemia not requiring statin therapy Qualified Code(s): E78.2 - Mixed hyperlipidemia (4) COPD (chronic obstructive pulmonary disease) Status: Chronic Qualifiers: COPD type: unspecified COPD Qualified Code(s): J44.9 - Chronic obstructive pulmonary disease, unspecified (5) Paroxysmal SVT (supraventricular tachycardia) Status: Chronic (6) GERD (gastroesophageal reflux disease) Status: Chronic Qualifiers: Esophagitis presence: esophagitis presence not specified Qualified Code(s): K21.9 - Gastro-esophageal reflux disease without esophagitis (7) Coronary artery disease Status: Chronic Qualifiers: Coronary Disease-Associated Artery/Lesion type: unspecified vessel or lesion type [place] vs. transplanted heart: unspecified whether [place] or transplanted heart Associated angina: angina presence unspecified Qualified Code(s): I25.10 - Atherosclerotic heart disease of [place] coronary artery without angina pectoris (8) CHF (congestive heart failure) Status: Chronic Qualifiers: Heart failure type: diastolic Heart failure chronicity: chronic Qualified Code(s): I50.32 - Chronic diastolic (congestive) heart failure Reason for Consult Date of Consultation: 01/28/19 Reason for Consultation: Medical consultation History of Present Illness: The patient is a 73 y/o M w/ PMHx: Chronic COPD, CAD, Hx PVST, PAF, HTN, HLD, Chronic Diastolic CHF, Former Tobacco use, Hx Gastric Ulcer, GERD who presents to the [facility] as direct admission per Dr. Fisher for planned cholecystectomy with recent admission and evaluation for acute pancreatitis secondary to underlying cholelithiasis with recent evaluation per PAT with noted heart rate at that time 119 with EKG confirming atrial fibrillation, asymptomatic with decision for admission to assure rate improvement and to have evaluation prior to operative intervention. Since recent discharge patient notes that he has been feeling improved, but still mildly weak and oral intake has been mild to moderate. He denies any chest discomfort, dyspnea, palpitations. Past Medical History Past Medical History (Chronic Problems): Chronic Problems Acute exacerbation of chronic obstructive pulmonary disease (COPD) (Chronic) Hypertension (Chronic) Hyperlipidemia (Chronic) PAF (paroxysmal atrial fibrillation) (Chronic) COPD (chronic obstructive pulmonary disease) (Chronic) Paroxysmal SVT (supraventricular tachycardia) (Chronic) GERD (gastroesophageal reflux disease) (Chronic) Coronary artery disease (Chronic) CHF (congestive heart failure) (Chronic) Allergies No Known Allergies Allergy (Verified 01/28/19 10:13) Home Medications: Ambulatory Orders Medication Instructions Recorded Albuterol Aerosols [Ventolin 2.5 mg INHALATION Q4H PRN PRN 01/25/19 Aerosols] Cholecalciferol (Vitamin D3) 1 tab PO DAILY 01/25/19 [Vitamin D3] Diltiazem HCl [Cartia Xt] 240 mg PO DAILY 01/25/19 Fluticasone/Vilanterol [Breo 1 ea IH DAILY 01/25/19 Ellipta 100-25 Mcg INH] Iron Polysaccharide Complex 150 mg PO DAILYCM 01/25/19 [Ferrex 150] Metoprolol Tartrate [Lopressor 50 mg PO BID 01/25/19 (beta alxe)] Pantoprazole Sodium [Protonix] 40 mg PO BID 01/25/19 Potassium Chloride [K-Dur] 40 meq PO DAILY 01/25/19 Pravastatin [Pravachol] 40 mg PO QHS 01/25/19 Vit A/Vit C/Vit E/Zinc/Copper 1 ea PO BID 01/25/19 [Preservision Areds Softgel] Apixaban [Eliquis] 5 mg PO BID #0 01/26/19 Furosemide [Lasix] 40 mg PO BIDLX #0 01/26/19 Surgical History: - - He had excision of a left breast mass when he was 9 years of age and it was benign. Surgery for ruptured gastric ulcer x2. Psychiatric History: No pertinent psych hx Lives: Alone Smoking Status: Former smoker - Patient quit cigarette tobacco usage in 1992 with prior to this less than 1 pack/day since he was a young teenager. 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 Drugs: None - *Family History Maternal History Items: Stroke Paternal History Items: Dementia Offspring History Items: - Review of Systems Constitutional: Reports: Malaise, Weakness, Fatigue. Denies: Chills, Fever, Weight Change HEENT: Denies: Head Aches, Sinus Congestion, Sinus Drainage Cardiovascular: Denies: Chest Pain, Chest Pressure, Chest Tightness, Heaviness, Light Headedness, Orthopnea, Palpitations, Syncope Respiratory: Denies: Cough, Shortness of Breath, Shortness of breath at rest, Shortness of breath upon exertion, Sputum production Gastrointestinal: Denies: Abdominal Pain, Nausea, Vomiting Genitourinary: Denies: Dysuria Musculoskeletal: Reports: Back Pain, Joint Pain. Denies: Joint Tenderness Skin: Denies: Rash, Wounds Neurological: Denies: Numbness, Tingling, Focal weakness Psychiatric: Denies: Anxiety, Depression, Homicidal Ideations, Suicidal Ideations Hematologic/ Lymphatic: Reports: Easy Bruising, Easy Bleeding Patient Problems: Active and Suspected Problems Atrial fibrillation with rapid ventricular response (Acute) Subjective: Seated upright in the PCU bed, no acute distress, denies any palpitations, chest pain or dyspnea. Objective: Physical Examination: General: awake, alert, oriented x 3 and cooperative, seated upright in the PCU bed in no apparent distress. Skin: normal color, turgor, no icterus, cyanosis. HEENT: AT/NC, EOMI, PERRLA, MMM, no carotid bruits or JVD noted. Lungs: CTA bilaterally, moderate effort, mild decrease BL bases, no rales, ronchi or wheezing. Heart: There are, rate controlled no gallop, rub audible. Abdomen: soft, overweight, NTTP, ND, mildly hyperactive BS, no HSM. Extremities: no cyanosis, clubbing, or edema. Neurological: patient awake, alert, oriented x 3; cognitive function intact; pupils equally reactive to light and accomodation; cranial nerves II-XII grossly normal, moving all 4 extremities, no focal deficits, strength mildly global decreased. Psychiatric: affect appears normal, no acute evidence of depressive or anxiety feelings. - Physical Exam Body Mass Index (BMI) 30.4 Assessment/Plan All Active Problems Pancreatitis (Acute) Atrial fibrillation with rapid ventricular response (Acute) The patient is a 73 y/o M w/ PMHx: Chronic COPD, CAD, Hx PVST, PAF, HTN, HLD, Chronic Diastolic CHF, Former Tobacco use, Hx Gastric Ulcer, GERD who presents to the [facility] as direct admission per Dr. Fsiher for planned cholecystectomy with recent admission and evaluation for acute pancreatitis secondary to underlying cholelithiasis with recent evaluation per PAT with noted heart rate at that time 119 with EKG confirming atrial fibrillation, asymptomatic with decision for admission to assure rate improvement and to have evaluation prior to operative intervention. 1. Paroxsymal atrial fibrillation: EKG in PAT with rate 119 with transition to [facility] for admission for planned OR in AM for cholecystectomy. Repeat assessment upon admission with improved rate, EKG in ED w/ atrial elation, rate controlled. Per discussion with general surgery, admitting service, admitted to PCU, maintain on telemetry, obtain cardiac enzyme serial set, obtain magnesium level, obtain ECHO, obtain TSH level. Patient was has been held since the prior to current presentation. If echocardiogram stable compared to prior, rate appropriate, cardiac enzymes appropriate with plan transition to operative intervention in a.m. 2. Recent Acute pancreatitis secondary to Cholelithiasis: Patient pain resolved, discharge over the weekend with planned return for operative intervention for cholecystectomy, tolerating diet currently, per discussion with general surgery, plan n.p.o. after midnight, IV fluids, assessment as noted #1, urine pain regimen, PRN antiemetics. 3. Iron deficiency anemia: 01/26/2019 most recent hemoglobin 13, plan repeat in a.m., continue iron supplementation. 4. CAD: Denies any PCI history, nonobstructive, holding Eliquis for operative intervention, resume once clinically appropriate, continue metoprolol, statin therapy. 5. Chronic diastolic CHF: Compensated appearance, judiciously hydrate, will maintain on metoprolol, Lasix, statin therapy, resume Eliquis once clinically appropriate. 6. History of gastric ulcer, GERD: Continue on PPI, specially given chronic Eliquis usage. 7. Hypertension: Continue home regimen including diltiazem, metoprolol, PRN hydralazine. 8. Hyperlipidemia: Continue home statin regimen. 9. Chronic COPD: ATC duonebs, PRN albuterol, HOB, IS parameters. 10. Tobacco use: Encouraged continued tobacco cessation. 11. DVT prophylaxis: SCDs, defer chemoprophylaxis to primary admitting service, surgery. Code Visit Office Visits / Consults: 24023 IP Consult L4
--- NOTE | 2019-01-28 16:01 | PCM.HP.BLA ---
Problem List (1) Atrial fibrillation with rapid ventricular response Status: Acute (2) Pancreatitis Status: Acute Qualifiers: Chronicity: chronic Pancreatitis type: biliary Qualified Code(s): K86.1 - Other chronic pancreatitis History and Physical Date of Admission: 01/28/19 History and Physical 01/28/19 1037 MR#: [id number] Acct: [id number] Name: CRISTINA JEFFREY Rep #: [id number] : 1945 73 From: Jesse Fisher MD PCP: Eligio KESSLER,Clifton Anderson Status: PRE [facility] [place] [facility] [place] Problem List (1) Pancreatitis Status: Acute Qualifiers: Chronicity: chronic Pancreatitis type: biliary Qualified Code(s): K86.1 - Other chronic pancreatitis History and Physical Date of Admission: 01/28/19 Problem List (1) Pancreatitis Status: Acute Qualifiers: Chronicity: acute Pancreatitis type: unspecified pancreatitis type Acute pancreatitis complication: unspecified Qualified Code(s): K85.90 - Acute pancreatitis without necrosis or infection, unspecified Reason for Consult Date of Consultation: 01/25/19 Reason for Consultation: Pancreatitis History of Present Illness: The patient is a 73 year old M who says his pain started 2 weeks ago. He had pain in the epigastric region which resolved. He said last night this started again and he came to the emergency room. He said the pain is in the epigastric region radiating to the back. He is not having any nausea or vomiting at this time. Past Medical History Past Medical History (Chronic Problems): Chronic Problems Acute exacerbation of chronic obstructive pulmonary disease (COPD) (Chronic) Hypertension (Chronic) Hyperlipidemia (Chronic) COPD (chronic obstructive pulmonary disease) (Chronic) Paroxysmal SVT (supraventricular tachycardia) (Chronic) GERD (gastroesophageal reflux disease) (Chronic) Coronary artery disease (Chronic) CHF (congestive heart failure) (Chronic) Allergies No Known Allergies Allergy (Verified 06/08/17 05:16) Home Medications: Ambulatory Orders Medication Instructions Recorded Albuterol Aerosols [Ventolin 2.5 mg INHALATION Q4H PRN PRN 01/25/19 Aerosols] Apixaban [Eliquis] 5 mg PO BID 01/25/19 Cholecalciferol (Vitamin D3) 1 tab PO DAILY 01/25/19 [Vitamin D3] Diltiazem HCl [Cartia Xt] 240 mg PO DAILY 01/25/19 Fluticasone/Vilanterol [Breo 1 ea IH DAILY 01/25/19 Ellipta Inhaler] Furosemide [Lasix] 40 mg PO BIDLX 01/25/19 Iron Polysaccharide Complex 150 mg PO DAILYCM 01/25/19 [Ferrex 150] Metoprolol Tartrate [Lopressor 50 mg PO BID 01/25/19 (Beta Pa)] Pantoprazole Sodium [Protonix] 40 mg PO BID 01/25/19 Potassium Chloride [K-Dur] 40 meq PO DAILY 01/25/19 Pravastatin [Pravachol] 40 mg PO QHS 01/25/19 Vit A/Vit C/Vit E/Zinc/Copper 1 ea PO BID 01/25/19 [Preservision Areds Softgel] Surgical History: - - He had excision of a left breast mass when he was 9 years of age and it was benign. Surgery for ruptured gastric ulcer Psychiatric History: No pertinent psych hx Lives: Alone Smoking Status: Former smoker - *Family History Maternal History Items: Stroke Paternal History Items: Dementia Offspring History Items: - - He has children but they live in [place] and they have been estranged for many years. Review of Systems Constitutional: Denies: Anorexia, Fever HEENT: Denies: Difficulty Hearing, Difficulty Swallowing Cardiovascular: Denies: Chest Pain Respiratory: Denies: Cough, Shortness of Breath Gastrointestinal: Reports: Abdominal Pain. Denies: Constipation, Diarrhea, Hematemesis, Hematochezia, Nausea, Vomiting Genitourinary: Denies: Incontinence Musculoskeletal: Denies: Arm Pain, Leg Pain Skin: Denies: Dryness Neurological: Denies: Balance problems Psychiatric: Denies: Anxiety Hematologic/ Lymphatic: Denies: Anemia Patient Problems: Active and Suspected Problems Pancreatitis (Acute) - Physical Exam General: Alert, Oriented x3 Neck: No JVD Lungs: Clear to auscultation, Normal air movement Cardiovascular: Regular rate, Regular Rhythm Abdomen: Soft, Distended, Tender - Tender in the epigastric region Extremities: No clubbing Skin: No rashes Musculoskeletal: No Muscle Wasting Neurological: Cranial nerves II-XII grossly intact Psych/Mental Status: Normal Affect Vital Signs Temp Pulse Resp BP Pulse Ox 98.8 F 99 16 104/66 92 01/25/19 08:12 01/25/19 08:12 01/25/19 08:12 01/25/19 08:12 01/25/19 08:12 Oxygen Delivery Method Room Air Weight: 206 lb 5.643 oz Body Mass Index (BMI) 30.4 Intake and Output for Last 24 Hours 01/23/19 01/24/19 01/25/19 23:59 23:59 23:59 Intake Total 1000 / 1000 Output Total 200 / 200 Balance 800 / 800 Laboratory Tests Past 24 Hrs 01/25/19 01/25/19 01/25/19 00:55 00:55 05:30 WBC 19.0 H RBC 4.98 Hgb 15.7 Hct 47.6 MCV 95.6 H MCH 31.5 MCHC 33.0 RDW Std Deviation 46.7 H RDW Coeff of Yaneli 13.2 Plt Count 389 MPV 8.6 Immature Gran % (Auto) 0.500 Neut % (Auto) 84.6 H Lymph % (Auto) 9.1 L [place] % (Auto) 5.3 Eos % (Auto) 0.2 Baso % (Auto) 0.3 Absolute Neuts (auto) 16.1 H Absolute Lymphs (auto) 1.72 Nucleated RBC % 0 Sodium 138 Potassium 3.7 Chloride 102 Carbon Dioxide 30.0 Anion Gap 6 BUN 16 Creatinine 1.12 Estim Creat Clear Calc 58.74 Est GFR (MDRD) Af Amer 83 Est GFR (MDRD) Non-Af 68 BUN/Creatinine Ratio 14.3 Glucose 127 H Calcium 9.3 Total Bilirubin 0.40 AST 21 ALT 49 Alkaline Phosphatase 111 Total Protein 8.1 Albumin 4.1 Globulin 4.0 Albumin/Globulin Ratio 1.0 Triglycerides 54 Cholesterol 98 LDL Cholesterol 52 VLDL Cholesterol 11 HDL Cholesterol 35 L Lipase 551 H Clinical Impression(s) from Imaging Studies Abdomen/Pelvis CT 01/25/19 01:12 IMPRESSION: 1. Acute pancreatitis primarily involving the pancreatic head and uncinate process. 2. 2.6 x 1.8 cm intraparenchymal cystic lesion within the anterior pancreatic head which may represent cystic neoplasm versus possible pancreatic pseudocyst. This could be more definitively characterized with MR imaging of the abdomen. 3. Mild mucosal thickening of the proximal duodenal sweep as it courses adjacent to the peripancreatic region. 4. Cholelithiasis with no evidence of acute cholecystitis. 5. Cysts versus hemangiomas within the liver. 6. Simple appearing bilateral renal cysts. 7. Mild sigmoid colonic diverticulosis with no evidence of acute diverticulitis. 8. Mild prostatomegaly. Electronically Signed: Silverio Bryant MD at 3:31 EDT Tel , Service support , Assessment/Plan All Active Problems Pancreatitis (Acute) 73-year-old male with pancreatitis 1. The patient had gallstone pancreatitis and briefly went home and presents back for elective cholecystectomy. Patient had presurgical testing today which showed A. fib with RVR on EKG. Patient is admitted for rate control prior to surgery tomorrow morning. Will consult hospitalist. Patient holding Eliquis. Patient may have diet today and n.p.o. after midnight. 2. I discussed the procedure in detail with the patient. I discussed the risks, benefits, and alternatives of the procedure. I discussed the risks including but not limited to bleeding, infection, injury to surrounding organs such as the liver, bile duct, bowels. I did discuss the possibility of having to convert to an open procedure as well as the possibility that if any injuries occurred this may necessitate further surgery at a tertiary care center. Jesse Fisher MD Pager: [facility] [address] [place] [address], [address] [place] [address] Office:
[2019-01-28] MEDS: Albuterol 2.5 MG/3 ML VIAL.NEB. INHALATION (16:10)
[2019-01-28] MEDS: dilTIAZem CD 240 MG Capsule PO (16:25)
[2019-01-28 16:28] LABS: International Normalized Ratio 1.2; Prothrombin Time (Protime)PT. 14.9 SECONDS (11.7-14.9)
[2019-01-28 16:29] LABS: Partial Thromboplast Time 32.2 Seconds (24.1-36.2)
[2019-01-28 16:31] LABS: Thyroid Stim Hormone (TSH) 1.17 uIU/mL (0.358-3.74)
[2019-01-28] MEDS: Metoprolol Tartrate 50 MG Tablet PO ×2 (17:29→22:13)
[2019-01-28] MEDS: Furosemide 40 MG Tablet PO (17:29)
[2019-01-28] MEDS: Ipratropium/Albuterol Sulfate 3 ML AMPUL.NEB INHALATION (19:24)
[2019-01-28] MEDS: Famotidine 20 MG Tablet PO (22:13)
[2019-01-28] MEDS: Pravastatin 40 MG Tablet PO (22:13)
[2019-01-28] MEDS: Pantoprazole Sodium 40 MG Tablet PO (22:13)
[2019-01-29] VITALS (22 sets, daily range): BP systolic 87–116; BP diastolic 48–76; PULSE 51–955; RESP 16–22; TEMP 36.2–36.8; O2SAT 92–97; BMI 29.2
[2019-01-29] MEDS: Albuterol 2.5 MG/3 ML VIAL.NEB. INHALATION ×3 (04:36→15:54)
--- NOTE | 2019-01-29 05:55 | EKG12_ITS ---
Test Reason : A-FIB/FLUTTER Blood Pressure : / mmHG Vent. Rate : 094 BPM Atrial Rate : 094 BPM P-R Int : 000 ms QRS Dur : 086 ms QT Int : 376 ms P-R-T Axes : 000 066 074 degrees QTc Int : 470 ms Atrial fibrillation Nonspecific T wave abnormality Prolonged QT Abnormal ECG Confirmed by TIERNEY KESSLER, KENNEDY ([id number]), editor school photograph RAMEZ LUTHER ([id number]) on 01/30/2019 2:34:39 PM Referred By: Jesse Fisher Confirmed By:KENNEDY MONET MD
[2019-01-29 06:36] LABS: Absolute Lymphocyte Count 2.34 X10^3/uL (0.83-4.51); Absolute Neutrophil Count 4.3 X10^3/uL (2.0-7.7); Basophil# 0.05 X10^3/uL; Basophil% 0.7 % (0-1); Eosinophil# 0.18 X10^3/uL; Eosinophils% 2.3 % (0-5); Hematocrit 38.7 % (40-54); Hemoglobin 12.8 g/dL (13.0-16.5); Lymphocyte # 2.34 X10^3/ul (4.0); Lymphocyte % 30.5 % (19-41); Mean Corp Hgb Conc 33.1 g/dL (32-36); Mean Corpuscular Hgb 30.9 pg (27.0-32.0); Mean Corpuscular Volume 93.5 fL (80-94); Mean Platelet Vol. 9.1 fl (6.2-12.0); Monocyte# 0.74 X10^3/uL; Monocyte% 9.6 % (0-10); NRBC Flagged by Analyzer 0 % (0-5); Neutrophil # 4.33 X10^3/uL (2.7-7.7); Neutrophil % 56.5 % (47-70); Platelet Count 306 K/mm3 (150-450); RBC Distribution Width CV 13.5 % (11.6-14.6); RBC Distribution Width SD 46.1 fl (35.1-43.9); Red Blood Count 4.14 M/mm3 (4.6-6.2); White Blood Count 7.7 K/mm3 (4.4-11.0)
[2019-01-29 06:52] LABS: Anion Gap 10 (5-15); BUN 11 mg/dL (7-18); BUN/Creat Ratio 14.7 RATIO (10-20); Calcium,Total 8.5 mg/dL (8.5-10.1); Chloride 106 mmol/L (98-107); Creatinine, Serum 0.75 mg/dL (0.70-1.30); EST Glomerular Filtration Rate 109 mL/min (>60); Est Glom Filt Rate - Afr Amer 131 mL/min (>60); Estimated Creatinine Clearance 67.93 ml/min; Glucose 89 mg/dL (74-106); Potassium 3.6 mmol/L (3.5-5.1); Sodium Level 141 mmol/L (136-145)
[2019-01-29] MEDS: Ipratropium/Albuterol Sulfate 3 ML AMPUL.NEB INHALATION ×2 (07:24→19:21)
--- NOTE | 2019-01-29 07:54 | PCM.PN.SRG ---
Patient Problems: Active and Suspected Problems Atrial fibrillation with rapid ventricular response (Acute) Subjective: Patient reports no abdominal pain or issues overnight. - Physical Exam General: Alert, Oriented x3 Lungs: Normal air movement Cardiovascular: Regular rate, - - Irregular rhythm Abdomen: Soft, Non Tender, Non-Distended Vital Signs Temp Pulse Resp BP Pulse Ox 97.6 F L 79 18 91/61 97 01/29/19 06:58 01/29/19 07:39 01/29/19 06:58 01/29/19 06:58 01/29/19 06:58 Oxygen Delivery Method Room Air Weight: 203 lb 7.787 oz Body Mass Index (BMI) 29.2 Intake and Output for Last 24 Hours 01/27/19 01/28/19 01/29/19 23:59 23:59 23:59 Intake Total 240 / 480 240 / 240 Output Total 1025 / 1025 Balance 240 / -195 -785 / -785 Laboratory Tests Past 24 Hrs 01/28/19 01/28/19 01/28/19 15:44 15:44 18:55 WBC RBC Hgb Hct MCV MCH MCHC RDW Std Deviation RDW Coeff of Yaneli Plt Count MPV Immature Gran % (Auto) Neut % (Auto) Lymph % (Auto) [place] % (Auto) Eos % (Auto) Baso % (Auto) Absolute Neuts (auto) Absolute Lymphs (auto) Nucleated RBC % PT 14.9 INR 1.2 APTT 32.2 Sodium Potassium Chloride Carbon Dioxide Anion Gap BUN Creatinine Estim Creat Clear Calc Est GFR (MDRD) Af Amer Est GFR (MDRD) Non-Af BUN/Creatinine Ratio Glucose Calcium Magnesium 2.0 Troponin I < 0.015 < 0.015 TSH 1.17 01/28/19 01/29/19 01/29/19 21:20 06:22 06:22 WBC 7.7 RBC 4.14 L Hgb 12.8 L Hct 38.7 L MCV 93.5 MCH 30.9 MCHC 33.1 RDW Std Deviation 46.1 H RDW Coeff of Yaneli 13.5 Plt Count 306 MPV 9.1 Immature Gran % (Auto) 0.400 Neut % (Auto) 56.5 Lymph % (Auto) 30.5 [place] % (Auto) 9.6 Eos % (Auto) 2.3 Baso % (Auto) 0.7 Absolute Neuts (auto) 4.3 Absolute Lymphs (auto) 2.34 Nucleated RBC % 0 PT INR APTT Sodium 141 Potassium 3.6 Chloride 106 Carbon Dioxide 25.0 Anion Gap 10 BUN 11 Creatinine 0.75 Estim Creat Clear Calc 67.93 Est GFR (MDRD) Af Amer 131 Est GFR (MDRD) Non-Af 109 BUN/Creatinine Ratio 14.7 Glucose 89 Calcium 8.5 Magnesium Troponin I < 0.015 TSH Medical Necessity - Tobacco Use Smoking Status: Former smoker - Patient quit cigarette tobacco usage in 1992 with prior to this less than 1 pack/day since he was a young teenager. Tobacco Use: Non-smoker Assessment/Plan All Active Problems Pancreatitis (Acute) Atrial fibrillation with rapid ventricular response (Acute) 73-year-old male with history of gallstone pancreatitis 1. Patient had history of gallstone pancreatitis and was recommended to have laparoscopic cholecystectomy. He was admitted presurgical he to rate control his A. fib. He has been holding his Eliquis. He had an echocardiogram yesterday. Plan to proceed with lap scopic cholecystectomy this afternoon. Patient is n.p.o. 2. I discussed the procedure in detail with the patient. I discussed the risks, benefits, and alternatives of the procedure. I discussed the risks including but not limited to bleeding, infection, injury to surrounding organs such as the liver, bile duct, bowels. I did discuss the possibility of having to convert to an open procedure as well as the possibility that if any injuries occurred this may necessitate further surgery at a tertiary care center. I also discussed that this may be more complicated due to his history of perforated gastric ulcer and pancreatitis. Jesse Fisher MD Pager: [facility] [address] [place] [address], [address] [place] [address] Office:
--- NOTE | 2019-01-29 09:36 | PCM.PN.HOSP ---
Patient Problems: Active and Suspected Problems Atrial fibrillation with rapid ventricular response (Acute) Subjective: Patient seen and examined. He was admitted by general surgery for planned cholecystectomy in account of recent acute pancreatitis due to cholelithiasis. During evaluation by preadmission testing he was noted to have a heart rate of 119 and was confirmed to have A. fib. He was asymptomatic at that time but he was admitted for evaluation and for rate control prior to surgery. Patient's only complaint on admission was being mildly weak with mild to moderate oral intake but denied any palpitations, shortness of breath, chest pain. A. fib has been rate controlled since admission. He has no complaints this morning. Review of systems otherwise negative. Labs and vitals reviewed. Vitals/I&O's: Vital Signs Temp Pulse Resp BP Pulse Ox 97.6 F L 79 22 H 91/61 94 01/29/19 06:58 01/29/19 07:39 01/29/19 07:24 01/29/19 06:58 01/29/19 07:24 Oxygen Delivery Method Room Air Weight: 203 lb 7.787 oz Body Mass Index (BMI) 29.2 Intake and Output for Last 24 Hours 01/27/19 01/28/19 01/29/19 23:59 23:59 23:59 Intake Total 240 / 480 240 / 240 Output Total 1025 / 1025 Balance 240 / -195 -785 / -785 General: Alert, Oriented x3, Cooperative, No apparent distress, Lethargic HEENT: Atraumatic, PERRLA, EOMI, Normocephalic Oral: Dry Mucosa Neck: Supple, No JVD, Negative Carotid Bruits Lungs: Clear to auscultation, Normal air movement, No rhonchi, No wheeze, No rales Cardiovascular: Regular rate, Regular Rhythm, Normal S1, Normal S2, No murmurs Abdomen: Bowel Sounds Present, Soft, Non Tender, Non-Distended, No Hepato-splenomegaly Extremities: No clubbing, No cyanosis, No edema, Capillary Refill Less than 3 Seconds Skin: No rashes, No breakdown Musculoskeletal: No Tenderness to Palpation of Joints or Extremities Lymphatic: No Cervical, Supraclavicular, or Inguinal Adenopathy Neurological: Cranial nerves II-XII grossly intact, Neuro grossly intact, Motor Exam 5/5 strength throughout Psych/Mental Status: Normal Affect, Appropriate, Alert and oriented to time, place, person, mood and affect Laboratory Results 01/28/19 15:44: PT 14.9, INR 1.2, APTT 32.2 01/28/19 15:44: Magnesium 2.0, Troponin I < 0.015, TSH 1.17 01/28/19 18:55: Troponin I < 0.015 01/28/19 21:20: Troponin I < 0.015 01/29/19 06:22: WBC 7.7, RBC 4.14 L, Hgb 12.8 L, Hct 38.7 L, MCV 93.5, MCH 30.9, MCHC 33.1, RDW Std Deviation 46.1 H, RDW Coeff of Yaneli 13.5, Plt Count 306, MPV 9.1, Immature Gran % (Auto) 0.400, Neut % (Auto) 56.5, Lymph % (Auto) 30.5, [place] % (Auto) 9.6, Eos % (Auto) 2.3, Baso % (Auto) 0.7, Absolute Neuts (auto) 4.3, Absolute Lymphs (auto) 2.34, Nucleated RBC % 0 01/29/19 06:22: Sodium 141, Potassium 3.6, Chloride 106, Carbon Dioxide 25.0, Anion Gap 10, BUN 11, Creatinine 0.75, Estim Creat Clear Calc 67.93, Est GFR (MDRD) Af Amer 131, Est GFR (MDRD) Non-Af 109, BUN/Creatinine Ratio 14.7, Glucose 89, Calcium 8.5 2D echo Interpretation Summary Mildly dilated left ventricle. The estimated ejection fraction is 50-55 %. Unable to assess diastolic dysfunction due to arrhythmia. There is mild global hypokinesis of the left ventricle. The left atrium is moderately enlarged. The right atrium is severely enlarged. Trivial mitral valve insufficiency. Mild (1+) tricuspid valve insufficiency. Right ventricular systolic pressure estimated to be 40 mmHg. Mild pulmonary hypertension. The inferior vena cava is dilated Pt appears to be in atrial fibrillation. There is no comparison study available. The study was technically difficult. Current Medications Acetaminophen (Tylenol) 650 mg PO Q6H PRN PRN PRN Reason: Mild pain 1-3/Temp > 100.7 F Albuterol Sulfate (Ventolin Aerosols) 2.5 mg INHALATION Q2H PRN PRN PRN Reason: SOB/Wheezing Last Admin: 01/29/19 04:36 Dose: 2.5 mg Documented by: Albuterol/Ipratropium (Duoneb) 3 ml INHALATION Q6HWA.RT [facility] Last Admin: 01/29/19 07:24 Dose: 3 ml Documented by: Dextrose (D50w Syringe) 0 gm IV X1 PRN; Protocol PRN Reason: Hypoglycemia Diltiazem HCl (Cardizem Cd) 240 mg PO DAILY [facility] Last Admin: 01/28/19 16:25 Dose: 240 mg Documented by: Famotidine (Pepcid) 20 mg PO BID [facility] Last Admin: 01/28/19 22:13 Dose: 20 mg Documented by: Furosemide (Lasix) 40 mg PO BIDLX [facility] Last Admin: 01/28/19 17:29 Dose: 40 mg Documented by: Glucagon () 1 mg IM .X1 PRN PRN Reason: Hypoglycemia Magnesium Hydroxide (Milk Of Magnesia) 30 ml PO DAILY PRN PRN PRN Reason: Constipation Melatonin (Melatonin) 3 mg PO QHS PRN PRN PRN Reason: INSOMNIA Metoprolol Tartrate (Lopressor (Beta Pa)) 50 mg PO BID [facility] Last Admin: 01/28/19 22:13 Dose: 50 mg Documented by: Morphine Sulfate () 2 mg IV Q3H PRN PRN PRN Reason: Severe Pain (7-10/10) Ondansetron HCl (Zofran) 4 mg IV Q8H PRN PRN PRN Reason: NAUSEA/VOMITING Oxycodone HCl (Oxyir) 5 mg PO Q4H PRN PRN PRN Reason: Moderate Pain (4-6/10) Pantoprazole Sodium (Protonix) 40 mg PO BID [facility] Last Admin: 01/28/19 22:13 Dose: 40 mg Documented by: Polysaccharide Iron Complex (Ferrex 150) [facility] Potassium Chloride (K-Dur) 40 meq PO DAILY [facility] Pravastatin Sodium (Pravachol) 40 mg PO QHS [facility] Last Admin: 01/28/19 22:13 Dose: 40 mg Documented by: Prochlorperazine Edisylate (Compazine Iv) 5 mg IV Q4H PRN PRN PRN Reason: Breakthrough Nausea/Vomiting Psyllium Hydrophilic Mucilloid (Metamucil) 1 packet PO DAILY PRN PRN PRN Reason: Constipation Sodium Chloride () 5 - 15 ml IV UD PRN PRN Reason: SALINE FLUSH Medical Necessity - Tobacco Use Smoking Status: Former smoker - Patient quit cigarette tobacco usage in 1992 with prior to this less than 1 pack/day since he was a young teenager. Tobacco Use: Non-smoker Assessment/Plan All Active Problems Pancreatitis (Acute) Atrial fibrillation with rapid ventricular response (Acute) 1. Paroxysmal afib currently rate and rhythm controlled 2D echo: mild dilated LV, with EF of 50-55%, mild global hypokinesis of LV adn moderately enlarged LA. RA severely enlarged. RVSP estimated to be 40mmHg, with dilated IVC. magnesium and K are WNL TSH was also WNL eliquis on hold o/a of patient going for surgery troponins x 3 were negative. 2. Cholelithiasis recently admitted and discharged for acute pancreatitis due to cholelithiasis currently NPO, for laparoscopic cholecystectomy today general surgery on board 3. Chronic HFpEF: stable. on metoprolol and statin. also on lasix 4.history of CAD: non obstructive CAD. on metoprolol and statins. 5. Histoty of gastric ulcer and GERD: on PPI. 6. Hypertension: On Cardizem, metoprolol and hydralazine. 7. Hyperlipidemia: On statins. 9. COPD: Not in exacerbation. On DuoNebs prn DVT prophylaxis: SCDs. Code Visit Inpatient E&M: 97689 Subs Hosp L2
[2019-01-29] MEDS: Famotidine 20 MG Tablet PO ×2 (09:46→21:31)
[2019-01-29] MEDS: Pantoprazole Sodium 40 MG Tablet PO ×2 (09:46→21:31)
[2019-01-29] MEDS: Metoprolol Tartrate 50 MG Tablet PO ×2 (09:46→21:31)
[2019-01-29] MEDS: dilTIAZem CD 240 MG Capsule PO (09:47)
--- NOTE | 2019-01-29 10:18 | CASEMGMT ---
Case Management Re-admission Progress Note: Admit 01/25-01/26/19 for Acute Pancreatitis. Plan would have been to perform Cholecystectomy during hospital admission on Monday, however patient wanted to go home because he would get better sleep at home per documentation review. DC Plan was to F/u with Dr Fisher for Outpatient Cholecystectomy on Monday or Monday and hold Eliquis. Re-admitted 01/28/19- Patient was at Pre-op check getting testing and found to be in Afib RVR. Direct Admit for this and Gallstone Pancreatitis with plan for Cholecystectomy. This clinical writer met with patient at bedside and denies any issues with aftercare instructions, taking prescribed medications at time of DC, or f/u for surgery. States was not aware needed to make a f/u appointment with his PCP as well. Denies any issues/questions/or concerns to his goal and plan to return home at DC this admission. Does not think will have any needs and currently denies any barriers to successful self care and f/u post DC. CM remains available for any emerging needs that may arise. Afua San, DONATOCM
[2019-01-29] MEDS: 0.9% Normal Saline 1,000 ML 100 ML IV ×3 (12:25→20:47)
--- NOTE | 2019-01-29 12:45 | GALL_PTH ---
PATIENT: CRISTINA JEFFREY LOC: [facility] U#:[id number] AGE/SX: 73/M ROOM: [facility] RE01/28/[address]: Dr. Alia Valdez MD : 1945 BED: 1 DIS: 02/03/2019 SPEC #: [id number] RECD: 01/29/19 16:03 STATUS: BLAIR HAN #: [id number] NIECY: 01/29/19 12:[address]: Jesse Fisher DEPT: SURGICAL PATHOLOGY RECD BY: Kanchan Arthur ENTERED: 01/30/19 09:27 SP TYPE: GALLBLAUBREY CISNEROS DR: MD Dr. Alia Jackson MD Dr. Tai Chi Kwok, MD Tissues: Gallbladder, NOS Procedures: Surgery Specimen Level III HEADER OPERATION: Laparoscopic, cholecystectomy with IOC PRE-OP DIAGNOSIS: Cholelithiasis TISSUE SUBMITTED: Gallbladder MICROSCOPIC DIAGNOSIS Gallbladder, cholecystectomy: Chronic cholecystitis and cholelithiasis. AM:quentin 01/31/19 MICROSCOPIC DESCRIPTION Slides are reviewed. GROSS DESCRIPTION Received is one container labeled with the patient's name and designated gallbladder. The specimen consists of a gallbladder measuring 6 cm in length and up to 4 cm in diameter. The gallbladder is previously partially opened. The external surface is pink-snow, smooth and glistening for the most part. Focally it is granular, hemorrhagic and contains cautery artifact. The gallbladder contains a small amount of hemorrhagic bile. Present in the gallbladder and also in the container are five variable sized pieces of irregular black stones measuring in aggregate 3.5 x 2 x 2 cm and 0.5 to 2 cm in greatest dimension. The mucosa is bile-stained and without any mass lesions. The gallbladder wall measures up to 1 cm in thickness. An increased amount of subserosal fat is noted. [employer]ed Products Assembler sections from the gallbladder and possible cystic duct opening are submitted in two cassettes. / SYLVIE:quentin 01/30/19 TC:3 CPT: 65590
[2019-01-29] MEDS: Bupiv/Epi 0.5% Mpf 30 ML Vial (14:15)
--- NOTE | 2019-01-29 14:44 | OP.PCM_ITS ---
Problem List (1) Atrial fibrillation with rapid ventricular response Status: Acute (2) Pancreatitis Status: Acute Qualifiers: Chronicity: chronic Pancreatitis type: biliary Qualified Code(s): K86.1 - Other chronic pancreatitis Report of Operation Date of Procedure: 01/29/19 Pre-Operative Diagnosis: Gallstone pancreatitis Post-Operative Diagnosis: Same Surgery/Procedure Performed:: Laparoscopic cholecystectomy Description of Surgical Findings:: Very inflamed pericholecystic fat and tissue surrounding gallbladder Specimen's removed: Gallbladder and contents Description of Procedure: The patient was brought back to the operating room and general anesthesia was induced. The abdomen was prepped and draped in usual sterile fashion. An incision was made in the midline superior to his prior midline laparoscopy incision. This was deepened to the fascia the fascia was elevated and incised. A balloon port was placed into the abdomen and it was inflated to 15 mmHg. Camera was then placed in the abdomen and it was inspected. The patient was then placed into steep reverse Trendelenburg position. A subxiphoid 5 mm port was placed under direct visualization and to right upper quadrant 5 mm ports wer e placed under direct visualization. The gallbladder was elevated. The fat surrounding the gallbladder was very inflamed and thickened. Dissection was began laterally and taken down to the gallbladder wall. The gallbladder wall was elevated and retracted laterally. A window was dissected posterior to the gallbladder between the gallbladder and the liver circumferentially dividing the liver from the gallbladder. This was carried inferiorly and the cystic artery was identified and clipped and divided. The dissection was unable to be taken down to the triangle of Calot due to the inflammation. At this point the anterior gallbladder had a small opening due to retraction. This was suctioned and grasped to keep the stones inside of the gallbladder. The gallbladder was inspected and this appeared to be very close to the infundibulum. Next a 0 PDS suture was placed around the gallbladder and using a knot pusher it was tied close to the infundibulum. Next the remainder of the gallbladder was taken off of the liver bed using electrocautery. Next an Endoloop PDS was placed around the gallbladder and brought down to just above the prior suture and this was tightened. The gallbladder was then divided just before the PDS sutures and placed in an Endo Catch bag. The gallbladder stump was inspected and there was no bile leakage. The area was irrigated and suctioned dry. There is good hemostasis with no leaking of bile or blood. Cholangiograms were unable to be performed. Next the abdomen was irrigated and suctioned dry. The gallbladder bed was inspected once more and there appeared to be no bile or blood. The umbilical incision was then lengthened and the Endo Catch bag was brought out through this incision. The port was placed back in the abdomen and the rest of the 5 mm trochars were removed under direct visualization. The large port was removed and the air was allowed to escape the abdomen. The midline fascia was closed with 2 interrupted [id number] 0 Vicryl sutures. All of the skin incisions were anesthetized and closed with interrupted 4-0 Monocryl sutures and Steri-Strips and bandages. Patient tolerated the procedure well was brought to PACU in stable condition. - Admit VTE Documentation VTE Mechan Device Prophylaxis: SCD's
[2019-01-29] MEDS: Morphine 2 MG/ML Syringe IV (16:39)
[2019-01-29] MEDS: Iron Polysaccharide Complex 150 MG CAPSULE PO (18:30)
[2019-01-29] MEDS: Furosemide 40 MG Tablet PO (18:31)
[2019-01-29] MEDS: Pravastatin 40 MG Tablet PO (21:31)
[2019-01-29] MEDS: Metoprolol Tartrate 5 MG/5 ML Vial IV (23:39)
[2019-01-29] MEDS: 0.9% NaCl Peripheral Flush Adult/Peds IV (23:40)
[2019-01-30] VITALS (22 sets, daily range): BP systolic 97–117; BP diastolic 56–81; PULSE 68–125; RESP 16–24; TEMP 36.4–36.9; O2SAT 84–95
[2019-01-30] MEDS: Metoprolol Tartrate 50 MG Tablet PO ×3 (00:07→22:07)
[2019-01-30] MEDS: Albuterol 2.5 MG/3 ML VIAL.NEB. INHALATION ×3 (02:47→22:08)
[2019-01-30 06:55] LABS: Absolute Lymphocyte Count 1.64 X10^3/uL (0.83-4.51); Absolute Neutrophil Count 9.7 X10^3/uL (2.0-7.7); Basophil# 0.02 X10^3/uL; Basophil% 0.2 % (0-1); Eosinophil# 0.01 X10^3/uL; Eosinophils% 0.1 % (0-5); Hematocrit 40.6 % (40-54); Hemoglobin 13.2 g/dL (13.0-16.5); Lymphocyte # 1.64 X10^3/ul (4.0); Lymphocyte % 13.1 % (19-41); Mean Corp Hgb Conc 32.5 g/dL (32-36); Mean Corpuscular Hgb 30.6 pg (27.0-32.0); Mean Platelet Vol. 9.2 fl (6.2-12.0); Monocyte# 1.05 X10^3/uL; Monocyte% 8.4 % (0-10); NRBC Flagged by Analyzer 0 % (0-5); Neutrophil # 9.73 X10^3/uL (2.7-7.7); Neutrophil % 77.7 % (47-70); Platelet Count 319 K/mm3 (150-450); RBC Distribution Width CV 13.7 % (11.6-14.6); RBC Distribution Width SD 47.8 fl (35.1-43.9); Red Blood Count 4.32 M/mm3 (4.6-6.2); White Blood Count 12.5 K/mm3 (4.4-11.0)
[2019-01-30] MEDS: 0.9% Normal Saline 1,000 ML 100 ML IV (07:03)
[2019-01-30 07:21] LABS: ALB/GLOB Ratio 0.9 RATIO (0.9-2.4); AST(SGOT) 27 U/L (15-37); Alanine Aminotransfer ALT/SGPT 44 U/L (16-61); Albumin, Serum 3.1 g/dL (3.2-5.0); Alkaline Phosphatase 99 U/L (45-117); Anion Gap 4 (5-15); BUN 12 mg/dL (7-18); BUN/Creat Ratio 14.8 RATIO (10-20); Calcium,Total 8.4 mg/dL (8.5-10.1); Chloride 107 mmol/L (98-107); Creatinine, Serum 0.81 mg/dL (0.70-1.30); EST Glomerular Filtration Rate 99 mL/min (>60); Est Glom Filt Rate - Afr Amer 120 mL/min (>60); Estimated Creatinine Clearance 83.86 ml/min; Globulin 3.6 g/dL (2.2-4.2); Glucose 100 mg/dL (74-106); Potassium 4.1 mmol/L (3.5-5.1); Protein, Total 6.7 g/dL (6.4-8.2); Sodium Level 136 mmol/L (136-145)
[2019-01-30] MEDS: Ipratropium/Albuterol Sulfate 3 ML AMPUL.NEB INHALATION ×3 (07:22→18:28)
--- NOTE | 2019-01-30 07:31 | CPS ---
pt just walked back from the bathroom and was SOB, SpO2=84%, placed pt back on 2lplm O2.
[2019-01-30] MEDS: Iron Polysaccharide Complex 150 MG CAPSULE PO (08:16)
[2019-01-30] MEDS: oxyCODONE 5 MG Tablet PO (08:16)
[2019-01-30] MEDS: Furosemide 40 MG Tablet PO (09:38)
[2019-01-30] MEDS: Pantoprazole Sodium 40 MG Tablet PO ×2 (09:39→21:13)
[2019-01-30] MEDS: Famotidine 20 MG Tablet PO ×2 (09:39→21:13)
[2019-01-30] MEDS: Ensure Clear 120 ML Liquid PO (09:40)
[2019-01-30] MEDS: dilTIAZem CD 240 MG Capsule PO (09:41)
--- NOTE | 2019-01-30 10:00 | RAD_ITS ---
EXAM DESCRIPTION: PORTABLE AP CHEST CLINICAL HISTORY: 73 years Male, shortness of breath COMPARISON: Previous portable chest obtained on 06/13/2017 FINDINGS: The thorax is intact. The heart and mediastinum appear to be within normal limits. The lungs appear to be well areated without evidence of pneumonic consolidation or pleural effusion minimal subsegmental atelectasis is noted in both lung bases from poor inspiratory effort.. RAD/Chest 1 View (Portable) IMPRESSION: No acute pathology. Electronically Signed: James Browning, at 11:17 EDT Tel , Service support ,
--- NOTE | 2019-01-30 11:13 | PN.SURG_ITS ---
Patient Problems: Active and Suspected Problems Atrial fibrillation with rapid ventricular response (Acute) Subjective: Patient was short of breath and had desaturation 84%. Otherwise he says he is doing well and tolerating a regular diet. He is not having much abdominal pain. He is passing some flatus. - Physical Exam General: Alert, Oriented x3 Lungs: Normal air movement Cardiovascular: Regular rate, Regular Rhythm Abdomen: Soft, Tender - Mild tenderness to palpation over incisions Vital Signs Temp Pulse Resp BP Pulse Ox 98.1 F 100 22 H 98/56 L 84 01/30/19 03:25 01/30/19 09:39 01/30/19 07:28 01/30/19 09:39 01/30/19 07:27 Oxygen Flow Rate (L/min) 2 Oxygen Delivery Method Nasal Cannula Weight: 203 lb 7.787 oz Body Mass Index (BMI) 29.2 Intake and Output for Last 24 Hours 01/28/19 01/29/19 01/30/19 23:59 23:59 23:59 Intake Total 240 / 480 3053.33 / 3053.33 863.34 / 863.34 Output Total 1550 / 1550 100 / 100 Balance 240 / -195 1503.33 / 1503.33 763.34 / 763.34 Laboratory Tests Past 24 Hrs 01/30/19 01/30/19 06:36 06:36 WBC 12.5 H RBC 4.32 L Hgb 13.2 Hct 40.6 MCV 94.0 MCH 30.6 MCHC 32.5 RDW Std Deviation 47.8 H RDW Coeff of Yaneli 13.7 Plt Count 319 MPV 9.2 Immature Gran % (Auto) 0.500 Neut % (Auto) 77.7 H Lymph % (Auto) 13.1 L [place] % (Auto) 8.4 Eos % (Auto) 0.1 Baso % (Auto) 0.2 Absolute Neuts (auto) 9.7 H Absolute Lymphs (auto) 1.64 Nucleated RBC % 0 Sodium 136 Potassium 4.1 Chloride 107 Carbon Dioxide 25.0 Anion Gap 4 L BUN 12 Creatinine 0.81 Estim Creat Clear Calc 83.86 Est GFR (MDRD) Af Amer 120 Est GFR (MDRD) Non-Af 99 BUN/Creatinine Ratio 14.8 Glucose 100 Calcium 8.4 L Total Bilirubin 0.80 AST 27 ALT 44 Alkaline Phosphatase 99 Total Protein 6.7 Albumin 3.1 L Globulin 3.6 Albumin/Globulin Ratio 0.9 Medical Necessity - Tobacco Use Smoking Status: Former smoker - Patient quit cigarette tobacco usage in 1992 with prior to this less than 1 pack/day since he was a young teenager. Tobacco Use: Non-smoker Assessment/Plan All Active Problems Pancreatitis (Acute) Atrial fibrillation with rapid ventricular response (Acute) 73-year-old male status post laparoscopic cholecystectomy for gallstone pancreatitis 1. The patient underwent laparoscopic cholecystectomy yesterday. Due to the inflammation I was unable to perform a cholangiogram. I offer the patient MRCP to ensure that there were no stones in the duct but at this time his LFTs are normal and we will continue to observe. 2. Patient had some hypoxia and was started on nasal cannula. Chest x-ray was obtained. Defer discharge today. May be discharged tomorrow if getting up and moving around better and off oxygen. Jesse Fisher MD Pager: [facility] [address] [place] [address], [address] [place] [phone] Office:
--- NOTE | 2019-01-30 11:20 | PN_ITS ---
Patient Problems: Active and Suspected Problems Atrial fibrillation with rapid ventricular response (Acute) Subjective: Patient seen and examined. Laparoscopic cholecystectomy 1 day ago and today's postop day 1. He complains of some mild pain at the site of the surgery. He denies any shortness of breath the patient noted to be 2 L of oxygen and desaturated down to 84%. He denies any cough or chest pain, palpitations, dizziness, diarrhea vomiting. Patient's heart rate went up to about 125 yesterday after surgery but he had not received his rate limiting medications. He received a dose of IV Lopressor and was put on his oral dose of Cardizem and Lopressor. Review of systems otherwise negative. Vitals/I&O's: Vital Signs Temp Pulse Resp BP Pulse Ox 97.5 F L 100 18 98/56 L 92 01/30/19 09:25 01/30/19 09:39 01/30/19 09:25 01/30/19 09:39 01/30/19 09:25 Oxygen Flow Rate (L/min) 2 Oxygen Delivery Method Nasal Cannula Weight: 203 lb 7.787 oz Body Mass Index (BMI) 29.2 Intake and Output for Last 24 Hours 01/28/19 01/29/19 01/30/19 23:59 23:59 23:59 Intake Total 240 / 480 3053.33 / 3053.33 863.34 / 863.34 Output Total 1550 / 1550 100 / 100 Balance 240 / -195 1503.33 / 1503.33 763.34 / 763.34 General: Alert, Oriented x3, Cooperative, No apparent distress, HEENT: Atraumatic, PERRLA, EOMI, Normocephalic Oral: Dry Mucosa Neck: Supple, No JVD, Negative Carotid Bruits Lungs: Clear to auscultation, Normal air movement, No rhonchi, No wheeze, No rales, on 2L of oxygen Cardiovascular: Regular rate, Regular Rhythm, Normal S1, Normal S2, No murmurs Abdomen: Bowel Sounds Present, Soft, Non Tender, mildly distended, No Hepato- splenomegaly, laparoscopic surgical sites nonerythematous, nontender Extremities: No clubbing, No cyanosis, No edema, Capillary Refill Less than 3 Seconds Skin: No rashes, No breakdown Musculoskeletal: No Tenderness to Palpation of Joints or Extremities Lymphatic: No Cervical, Supraclavicular, or Inguinal Adenopathy Neurological: Cranial nerves II-XII grossly intact, Neuro grossly intact, Motor Exam 5/5 strength throughout Psych/Mental Status: Normal Affect, Appropriate, Alert and oriented to time, place, person, mood and affect Laboratory Results 01/30/19 06:36: WBC 12.5 H, RBC 4.32 L, Hgb 13.2, Hct 40.6, MCV 94.0, MCH 30.6, MCHC 32.5, RDW Std Deviation 47.8 H, RDW Coeff of Yaneli 13.7, Plt Count 319, MPV 9.2, Immature Gran % (Auto) 0.500, Neut % (Auto) 77.7 H, Lymph % (Auto) 13.1 L, [place] % (Auto) 8.4, Eos % (Auto) 0.1, Baso % (Auto) 0.2, Absolute Neuts (auto) 9.7 H, Absolute Lymphs (auto) 1.64, Nucleated RBC % 0 01/30/19 06:36: Sodium 136, Potassium 4.1, Chloride 107, Carbon Dioxide 25.0, Anion Gap 4 L, BUN 12, Creatinine 0.81, Estim Creat Clear Calc 83.86, Est GFR (M DRD) Af Amer 120, Est GFR (MDRD) Non-Af 99, BUN/Creatinine Ratio 14.8, Glucose 100, Calcium 8.4 L, Total Bilirubin 0.80, AST 27, ALT 44, Alkaline Phosphatase 99, Total Protein 6.7, Albumin 3.1 L, Globulin 3.6, Albumin/Globulin Ratio 0.9 Diagnostic Data Chest X-Ray 01/30/19 10:00 IMPRESSION: No acute pathology. Electronically Signed: James Browning, at 11:17 EDT Tel , Service support , Current Medications Acetaminophen (Tylenol) 650 mg PO Q6H PRN PRN PRN Reason: Mild pain 1-3/Temp > 100.7 F Albuterol Sulfate (Ventolin Aerosols) 2.5 mg INHALATION Q2H PRN PRN PRN Reason: SOB/Wheezing Last Admin: 01/30/19 05:21 Dose: 2.5 mg Documented by: Albuterol/Ipratropium (Duoneb) 3 ml INHALATION Q6HWA.RT [facility] Last Admin: 01/30/19 07:22 Dose: 3 ml Documented by: Dextrose (D50w Syringe) 0 gm IV X1 PRN; Protocol PRN Reason: Hypoglycemia Diltiazem HCl (Cardizem Cd) 240 mg PO DAILY [facility] Last Admin: 01/30/19 09:41 Dose: 240 mg Documented by: Famotidine (Pepcid) 20 mg PO BID [facility] Last Admin: 01/30/19 09:39 Dose: 20 mg Documented by: Furosemide (Lasix) 40 mg PO BIDLX [facility] Last Admin: 01/30/19 09:38 Dose: 40 mg Documented by: Glucagon () 1 mg IM .X1 PRN PRN Reason: Hypoglycemia Magnesium Hydroxide (Milk Of Magnesia) 30 ml PO DAILY PRN PRN PRN Reason: Constipation Melatonin (Melatonin) 3 mg PO QHS PRN PRN PRN Reason: INSOMNIA Metoprolol Tartrate (Lopressor (Beta Pa)) 5 mg IV Q6H PRN PRN PRN Reason: HR>120 Last Admin: 01/29/19 23:39 Dose: 5 mg Documented by: Metoprolol Tartrate (Lopressor (Beta Pa)) 50 mg PO BID [facility] Last Admin: 01/30/19 09:39 Dose: 50 mg Documented by: Morphine Sulfate () 2 mg IV Q3H PRN PRN PRN Reason: Severe Pain (7-10/10) Last Admin: 01/29/19 16:39 Dose: 2 mg Documented by: Nutritional Formula (Lactose Free) (Ensure Clear) 120 ml PO TIDCM [facility] Last Admin: 01/30/19 09:40 Dose: 120 ml Documented by: Ondansetron HCl (Zofran) 4 mg IV Q8H PRN PRN PRN Reason: NAUSEA/VOMITING Oxycodone HCl (Oxyir) 5 mg PO Q4H PRN PRN PRN Reason: Moderate Pain (4-6/10) Last Admin: 01/30/19 08:16 Dose: 5 mg Documented by: Pantoprazole Sodium (Protonix) 40 mg PO BID [facility] Last Admin: 01/30/19 09:39 Dose: 40 mg Documented by: Polysaccharide Iron Complex (Ferrex 150) 150 mg PO DAILYCM [facility] Last Admin: 01/30/19 08:16 Dose: 150 mg Documented by: Potassium Chloride (K-Dur) 40 meq PO DAILY [facility] Last Admin: 01/30/19 09:38 Dose: 40 meq Documented by: Pravastatin Sodium (Pravachol) 40 mg PO QHS [facility] Last Admin: 01/29/19 21:31 Dose: 40 mg Documented by: Prochlorperazine Edisylate (Compazine Iv) 5 mg IV Q4H PRN PRN PRN Reason: Breakthrough Nausea/Vomiting Psyllium Hydrophilic Mucilloid (Metamucil) 1 packet PO DAILY PRN PRN PRN Reason: Constipation Sodium Chloride () 5 - 15 ml IV UD PRN PRN Reason: SALINE FLUSH Last Admin: 01/29/19 23:40 Dose: 10 ml Documented by: Medical Necessity - Tobacco Use Smoking Status: Former smoker - Patient quit cigarette tobacco usage in 1992 with prior to this less than 1 pack/day since he was a young teenager. Tobacco Use: Non-smoker Assessment/Plan All Active Problems Pancreatitis (Acute) Atrial fibrillation with rapid ventricular response (Acute) 1. Paroxysmal afib * currently rate and rhythm controlled * 2D echo: mild dilated LV, with EF of 50-55%, mild global hypokinesis of LV adn moderately enlarged LA. RA severely enlarged. RVSP estimated to be 40mmHg, with dilated IVC. * magnesium and K are WNL * TSH was also WNL * HR went up into the 120s after surgery, but this resolved after he was given a dose of IV lopressor, and started on his oral rate limiting meds- cardizem and metoprolol 2. Cholelithiasis s/p laparoscopic cholecystectomy * today is POD 1 * complains of mild abdominal pain. * general surgery on board; diet resumed * pain management as per general surgery * 3. Acute hypoxic respiratory insufficiency * likely due to atelectasis post op * CXR done today showed no acute cardiopulmonary pathology * encourage incentive spirometry use * encouraged to ambulate * chest physiotherapy * breathing treatments prn * already on lasix for chronic HFpEF * 4. Chronic HFpEF: stable. on metoprolol and statin. also on lasix 5.history of CAD: non obstructive CAD. on metoprolol and statins. 6. History of gastric ulcer and GERD: on PPI. 7. Hypertension: On Cardizem, metoprolol and hydralazine. 8. Hyperlipidemia: On statins. 9. COPD: Not in exacerbation. On DuoNebs prn DVT prophylaxis: SCDs. Code Visit Inpatient E&M: 54068 Subs Hosp L2
[2019-01-30] MEDS: Acetaminophen 325 MG Tablet 650 MG PO (17:50)
[2019-01-30] MEDS: Pravastatin 40 MG Tablet PO (21:13)
[2019-01-31] VITALS (19 sets, daily range): BP systolic 86–127; BP diastolic 49–77; PULSE 80–167; RESP 16–26; TEMP 36.2–36.9; O2SAT 91–95
[2019-01-31] MEDS: Acetaminophen 325 MG Tablet 650 MG PO (01:23)
[2019-01-31] MEDS: Iron Polysaccharide Complex 150 MG CAPSULE PO (08:20)
[2019-01-31] MEDS: Ensure Clear 120 ML Liquid PO (08:20)
[2019-01-31] MEDS: Famotidine 20 MG Tablet PO ×2 (09:39→21:07)
[2019-01-31] MEDS: Pantoprazole Sodium 40 MG Tablet PO ×2 (09:39→21:07)
[2019-01-31 10:03] LABS: BNP,B-Type NATRIURETIC PEPTIDE 183.9 pg/mL (0-100)
[2019-01-31 10:15] LABS: ALB/GLOB Ratio 0.8 RATIO (0.9-2.4); AST(SGOT) 25 U/L (15-37); Alanine Aminotransfer ALT/SGPT 48 U/L (16-61); Albumin, Serum 3.3 g/dL (3.2-5.0); Alkaline Phosphatase 107 U/L (45-117); Anion Gap 7 (5-15); BUN 13 mg/dL (7-18); BUN/Creat Ratio 14.2 RATIO (10-20); Calcium,Total 8.8 mg/dL (8.5-10.1); Chloride 106 mmol/L (98-107); Creatinine, Serum 0.91 mg/dL (0.70-1.30); EST Glomerular Filtration Rate 86 mL/min (>60); Est Glom Filt Rate - Afr Amer 104 mL/min (>60); Estimated Creatinine Clearance 74.65 ml/min; Glucose 131 mg/dL (74-106); Potassium 3.6 mmol/L (3.5-5.1); Protein, Total 7.3 g/dL (6.4-8.2); Sodium Level 139 mmol/L (136-145)
[2019-01-31 10:26] LABS: Absolute Lymphocyte Count 1.78 X10^3/uL (0.83-4.51); Absolute Neutrophil Count 7.3 X10^3/uL (2.0-7.7); Basophil# 0.06 X10^3/uL; Basophil% 0.6 % (0-1); Eosinophil# 0.24 X10^3/uL; Eosinophils% 2.3 % (0-5); Hematocrit 43.7 % (40-54); Hemoglobin 14.2 g/dL (13.0-16.5); Lymphocyte # 1.78 X10^3/ul (4.0); Lymphocyte % 17.2 % (19-41); Mean Corp Hgb Conc 32.5 g/dL (32-36); Mean Corpuscular Hgb 30.8 pg (27.0-32.0); Mean Corpuscular Volume 94.8 fL (80-94); Monocyte# 0.85 X10^3/uL; Monocyte% 8.2 % (0-10); NRBC Flagged by Analyzer 0 % (0-5); Neutrophil # 7.34 X10^3/uL (2.7-7.7); Neutrophil % 70.9 % (47-70); Platelet Count 335 K/mm3 (150-450); RBC Distribution Width CV 13.8 % (11.6-14.6); RBC Distribution Width SD 48.1 fl (35.1-43.9); Red Blood Count 4.61 M/mm3 (4.6-6.2); White Blood Count 10.4 K/mm3 (4.4-11.0)
--- NOTE | 2019-01-31 11:45 | PCM.PN.HOSP ---
Patient Problems: Active and Suspected Problems Atrial fibrillation with rapid ventricular response (Acute) Subjective: Patient seen and examined. He feels much better today and wants to go home. He denies any palpitations, dizziness, chest pain, abdominal pain, diarrhea or vomiting. Review of systems is otherwise negative. Labs and vitals reviewed. He was noted to be hypotensive overnight, with BP going down to 80s systolic. BP has ranged between 100s systolic and 80s systolic since admission. He has remained asymptomatic. Vitals/I&O's: Vital Signs Temp Pulse Resp BP Pulse Ox 98.0 F 89 16 86/49 L 92 01/31/19 09:35 01/31/19 10:56 01/31/19 09:35 01/31/19 09:35 01/31/19 09:35 Oxygen Flow Rate (L/min) 1 Oxygen Delivery Method Room Air Weight: 203 lb 7.787 oz Body Mass Index (BMI) 29.2 Intake and Output for Last 24 Hours 01/29/19 01/30/19 01/31/19 23:59 23:59 23:59 Intake Total 3053.33 / 3053.33 1703.34 / 2063.34 410 / 410 Output Total 1550 / 1550 100 / 550 650 / 650 Balance 1503.33 / 1503.33 1603.34 / 1513.34 -240 / -240 General: Alert, Oriented x3, Cooperative, No apparent distress, HEENT: Atraumatic, PERRLA, EOMI, Normocephalic Oral: Dry Mucosa Neck: Supple, No JVD, Negative Carotid Bruits Lungs: Clear to auscultation, Normal air movement, No rhonchi, No wheeze, No rales, on 1L of oxygen Cardiovascular: Regular rate, Regular Rhythm, Normal S1, Normal S2, No murmurs Abdomen: Bowel Sounds Present, Soft, Non Tender, mildly distended, No Hepato-splenomegaly, laparoscopic surgical sites nonerythematous, nontender Extremities: No clubbing, No cyanosis, No edema, Capillary Refill Less than 3 Seconds Skin: No rashes, No breakdown Musculoskeletal: No Tenderness to Palpation of Joints or Extremities Lymphatic: No Cervical, Supraclavicular, or Inguinal Adenopathy Neurological: Cranial nerves II-XII grossly intact, Neuro grossly intact, Motor Exam 5/5 strength throughout Psych/Mental Status: Normal Affect, Appropriate, Alert and oriented to time, place, person, mood and affect Laboratory Results 01/31/19 09:07: B-Natriuretic Peptide 183.9 H 01/31/19 09:07: Sodium 139, Potassium 3.6, Chloride 106, Carbon Dioxide 26.0, Anion Gap 7, BUN 13, Creatinine 0.91, Estim Creat Clear Calc 74.65, Est GFR (MDRD) Af Amer 104, Est GFR (MDRD) Non-Af 86, BUN/Creatinine Ratio 14.2, Glucose 131 H, Calcium 8.8, Total Bilirubin 0.60, AST 25, ALT 48, Alkaline Phosphatase 107, Total Protein 7.3, Albumin 3.3, Globulin 4.0, Albumin/Globulin Ratio 0.8 L 01/31/19 10:07: WBC 10.4, RBC 4.61, Hgb 14.2, Hct 43.7, MCV 94.8 H, MCH 30.8, MCHC 32.5, RDW Std Deviation 48.1 H, RDW Coeff of Yaneli 13.8, Plt Count 335, MPV 9.0, Immature Gran % (Auto) 0.800, Neut % (Auto) 70.9 H, Lymph % (Auto) 17.2 L, [place] % (Auto) 8.2, Eos % (Auto) 2.3, Baso % (Auto) 0.6, Absolute Neuts (auto) 7.3, Absolute Lymphs (auto) 1.78, Nucleated RBC % 0 Diagnostic Data Chest X-Ray 01/30/19 10:00 IMPRESSION: No acute pathology. Electronically Signed: James Browning, at 11:17 EDT Tel , Service support , Current Medications Acetaminophen (Tylenol) 650 mg PO Q6H PRN PRN PRN Reason: Mild pain 1-3/Temp > 100.7 F Last Admin: 01/31/19 01:23 Dose: 650 mg Documented by: Albuterol Sulfate (Ventolin Aerosols) 2.5 mg INHALATION Q2H PRN PRN PRN Reason: SOB/Wheezing Last Admin: 01/30/19 22:08 Dose: 2.5 mg Documented by: Albuterol/Ipratropium (Duoneb) 3 ml INHALATION Q6HWA.RT [facility] Last Admin: 01/30/19 18:28 Dose: 3 ml Documented by: Dextrose (D50w Syringe) 0 gm IV X1 PRN; Protocol PRN Reason: Hypoglycemia Diltiazem HCl (Cardizem Cd) 240 mg PO DAILY [facility] Last Admin: 01/31/19 10:40 Dose: Not Given Documented by: Famotidine (Pepcid) 20 mg PO BID [facility] Last Admin: 01/31/19 09:39 Dose: 20 mg Documented by: Furosemide (Lasix) 40 mg PO BIDLX [facility] Last Admin: 01/31/19 10:40 Dose: Not Given Documented by: Glucagon () 1 mg IM .X1 PRN PRN Reason: Hypoglycemia Magnesium Hydroxide (Milk Of Magnesia) 30 ml PO DAILY PRN PRN PRN Reason: Constipation Melatonin (Melatonin) 3 mg PO QHS PRN PRN PRN Reason: INSOMNIA Metoprolol Tartrate (Lopressor (Beta Pa)) 5 mg IV Q6H PRN PRN PRN Reason: HR>120 Last Admin: 01/29/19 23:39 Dose: 5 mg Documented by: Morphine Sulfate () 2 mg IV Q3H PRN PRN PRN Reason: Severe Pain (7-10/10) Last Admin: 01/29/19 16:39 Dose: 2 mg Documented by: Nutritional Formula (Lactose Free) (Ensure Clear) 120 ml PO TIDCM [facility] Last Admin: 01/31/19 08:20 Dose: 120 ml Documented by: Ondansetron HCl (Zofran) 4 mg IV Q8H PRN PRN PRN Reason: NAUSEA/VOMITING Oxycodone HCl (Oxyir) 5 mg PO Q4H PRN PRN PRN Reason: Moderate Pain (4-6/10) Last Admin: 01/30/19 08:16 Dose: 5 mg Documented by: Pantoprazole Sodium (Protonix) 40 mg PO BID [facility] Last Admin: 01/31/19 09:39 Dose: 40 mg Documented by: [facility]accharide [facility] Last Admin: 01/31/19 08:20 Dose: 150 mg Documented by: Potassium Chloride (K-Dur) 40 meq PO DAILY [facility] Last Admin: 01/31/19 09:39 Dose: 40 meq Documented by: Pravastatin Sodium (Pravachol) 40 mg PO QHS [facility] Last Admin: 01/30/19 21:13 Dose: 40 mg Documented by: Prochlorperazine Edisylate (Compazine Iv) 5 mg IV Q4H PRN PRN PRN Reason: Breakthrough Nausea/Vomiting Psyllium Hydrophilic Mucilloid (Metamucil) 1 packet PO DAILY PRN PRN PRN Reason: Constipation Sodium Chloride () 5 - 15 ml IV UD PRN PRN Reason: SALINE FLUSH Last Admin: 01/29/19 23:40 Dose: 10 ml Documented by: Medical Necessity - Tobacco Use Smoking Status: Former smoker - Patient quit cigarette tobacco usage in 1992 with prior to this less than 1 pack/day since he was a young teenager. Tobacco Use: Non-smoker Assessment/Plan All Active Problems Pancreatitis (Acute) Atrial fibrillation with rapid ventricular response (Acute) 1. Paroxysmal afib currently rate and rhythm controlled 2D echo: mild dilated LV, with EF of 50-55%, mild global hypokinesis of LV adn moderately enlarged LA. RA severely enlarged. RVSP estimated to be 40mmHg, with dilated IVC. on cardizem and metoprolol. Medications held o/a of hypotension 2. Asymptomatic hypotension, likely medication induced on cardizem and metoprolol. will hold meds; and monitor. BP has been down in hte 80s systolic. Also hold lasix will adjust meds as needed 3. Cholelithiasis s/p laparoscopic cholecystectomy today is POD 3 stable; abdominal pain has resolved general surgery on board; diet resumed pain management as per general surgery 4. Acute hypoxic respiratory insufficiency likely due to atelectasis post op resolving. Weaned down oxygen to 1L. goal is to wean off oxygen to room air. encourage incentive spirometry use encouraged to ambulate chest physiotherapy breathing treatments prn 5. Chronic HFpEF: stable. on metoprolol and statin. also on lasix. Lasix held o/a of hypotension 6.history of CAD: non obstructive CAD. on metoprolol and statins. 7. History of gastric ulcer and GERD: on PPI. 8. Hypertension: On Cardizem, metoprolol and hydralazine. 9. Hyperlipidemia: On statins. 10. COPD: Not in exacerbation. On DuoNebs prn DVT prophylaxis: SCDs. Code Visit Inpatient E&M: 54698 Subs Hosp L2
--- NOTE | 2019-01-31 12:54 | PN.SURG_ITS ---
Patient Problems: Active and Suspected Problems Atrial fibrillation with rapid ventricular response (Acute) Subjective: Patient tolerated a diet with flatus. No nausea or vomiting. He does have pain with coughing. - Physical Exam General: Alert, Oriented x3, Cooperative HEENT: Atraumatic Lungs: Normal air movement Cardiovascular: Regular rate, Regular Rhythm Abdomen: Soft, Non-Distended Vital Signs Temp Pulse Resp BP Pulse Ox 98.2 F 96 16 117/70 93 01/31/19 12:20 01/31/19 12:20 01/31/19 12:20 01/31/19 12:20 01/31/19 12:20 Oxygen Flow Rate (L/min) 1 Oxygen Delivery Method Nasal Cannula Weight: 203 lb 7.787 oz Body Mass Index (BMI) 29.2 Intake and Output for Last 24 Hours 01/29/19 01/30/19 01/31/19 23:59 23:59 23:59 Intake Total 3053.33 / 3053.33 1703.34 / 2063.34 410 / 410 Output Total 1550 / 1550 100 / 550 650 / 650 Balance 1503.33 / 1503.33 1603.34 / 1513.34 -240 / -240 Laboratory Tests Past 24 Hrs 01/31/19 01/31/19 01/31/19 09:07 09:07 10:07 WBC 10.4 RBC 4.61 Hgb 14.2 Hct 43.7 MCV 94.8 H MCH 30.8 MCHC 32.5 RDW Std Deviation 48.1 H RDW Coeff of Yaneli 13.8 Plt Count 335 MPV 9.0 Immature Gran % (Auto) 0.800 Neut % (Auto) 70.9 H Lymph % (Auto) 17.2 L [place] % (Auto) 8.2 Eos % (Auto) 2.3 Baso % (Auto) 0.6 Absolute Neuts (auto) 7.3 Absolute Lymphs (auto) 1.78 Nucleated RBC % 0 Sodium 139 Potassium 3.6 Chloride 106 Carbon Dioxide 26.0 Anion Gap 7 BUN 13 Creatinine 0.91 Estim Creat Clear Calc 74.65 Est GFR (MDRD) Af Amer 104 Est GFR (MDRD) Non-Af 86 BUN/Creatinine Ratio 14.2 Glucose 131 H Calcium 8.8 Total Bilirubin 0.60 AST 25 ALT 48 Alkaline Phosphatase 107 B-Natriuretic Peptide 183.9 H Total Protein 7.3 Albumin 3.3 Globulin 4.0 Albumin/Globulin Ratio 0.8 L Medical Necessity - Tobacco Use Smoking Status: Former smoker - Patient quit cigarette tobacco usage in 1992 with prior to this less than 1 pack/day since he was a young teenager. Tobacco Use: Non-smoker Assessment/Plan All Active Problems Pancreatitis (Acute) Atrial fibrillation with rapid ventricular response (Acute) 73-year-old male status post laparoscopic cholecystectomy 1. The patient is off oxygen today but he is still feeling a little bit short of breath. He had low blood pressure on his last 2 checks. His blood pressure meds and Lasix were held today. His hemoglobin is normal and his white count is normal. I do not believe this is septic or blood loss related. 2. Hold discharge today. Continue diet and PPI. Continue to encourage out of bed. I have consulted PT/OT. Jesse Fisher MD Pager: [facility] [address] [place] [address], [address] [place] [address] Office:
[2019-01-31] MEDS: Ipratropium/Albuterol Sulfate 3 ML AMPUL.NEB INHALATION ×2 (13:07→19:04)
[2019-01-31] MEDS: Metoprolol Tartrate 5 MG/5 ML Vial IV ×2 (15:49→23:42)
[2019-01-31] MEDS: Pravastatin 40 MG Tablet PO (21:07)
[2019-01-31] MEDS: Docusate Sodium 100 MG Capsule PO (21:07)
[2019-02-01] VITALS (38 sets, daily range): BP systolic 99–126; BP diastolic 67–98; PULSE 74–168; RESP 16–39; TEMP 36.4–36.8; O2SAT 92–97
[2019-02-01] MEDS: Mag Hydrox/Al Hydrox/Simeth 30 ML UDC PO ×2 (02:09→10:56)
[2019-02-01] MEDS: Albuterol 2.5 MG/3 ML VIAL.NEB. INHALATION (03:13)
[2019-02-01] MEDS: Metoprolol Tartrate 5 MG/5 ML Vial IV ×2 (04:42→10:58)
[2019-02-01] MEDS: Ipratropium/Albuterol Sulfate 3 ML AMPUL.NEB INHALATION ×2 (07:17→17:20)
[2019-02-01] MEDS: Docusate Sodium 100 MG Capsule PO ×2 (08:51→20:44)
[2019-02-01] MEDS: Famotidine 20 MG Tablet PO ×2 (08:51→20:42)
[2019-02-01] MEDS: Pantoprazole Sodium 40 MG Tablet PO ×2 (08:51→20:42)
[2019-02-01] MEDS: Iron Polysaccharide Complex 150 MG CAPSULE PO (08:51)
[2019-02-01] MEDS: dilTIAZem CD 120 MG Capsule PO (08:51)
--- NOTE | 2019-02-01 10:32 | PCM.CONS.C ---
<James Echevarria - Last Filed: 02/01/19 11:40> Problem List (1) Hypertension Status: Chronic Qualifiers: Hypertension type: essential hypertension Qualified Code(s): I10 - Essential (primary) hypertension (2) Hyperlipidemia Status: Chronic Qualifiers: Hyperlipidemia type: moderate mixed hyperlipidemia not requiring statin therapy Qualified Code(s): E78.2 - Mixed hyperlipidemia (3) PAF (paroxysmal atrial fibrillation) Status: Chronic (4) Coronary artery disease Status: Chronic Qualifiers: Coronary Disease-Associated Artery/Lesion type: unspecified vessel or lesion type [place] vs. transplanted heart: unspecified whether samish or transplanted heart Associated angina: angina presence unspecified Qualified Code(s): I25.10 - Atherosclerotic heart disease of samish coronary artery without angina pectoris (5) CHF (congestive heart failure) Status: Chronic Qualifiers: Heart failure type: diastolic Heart failure chronicity: chronic Qualified Code(s): I50.32 - Chronic diastolic (congestive) heart failure Reason for Consult Date of Consultation: 02/01/19 Reason for Consultation: PAF History of Present Illness: The patient is a 73 year old M who was admitted for pre-surgical optimization on 01/28/2019. Prior to surgery he was noted to be in atrial fibrillation at an elevated rate. He was admitted for evaluation. His troponin was negative. His echocardiogram on 01/28/2019 showed an EF of 50-55%, moderate left atrial enlargement, severe right atrial enlargement, and an RVSP of 40mmg Hg. He underwent Laparoscopic cholecystectomy surgery on 01/29/[address] Fisher. He continued to have lower oxygenation and atrial fibrillation post operatively. He developed hypotension on 01/30/2019 and his medications were held. Since then he has had transient episodes of atrial fibrillation with RVR. He has a history of COPD, mild CAD without intervention or routine cardiology outpatient follow-up, PSVT, paroxysmal atrial fibrillation, hypertension, hyperlipidemia, previous tobacco abuse, GERD, and gastric ulcer. Cardiology was consulted for further recommendation. Past Medical History Allergies/Adverse Reactions: Allergies No Known Allergies Allergy (Verified 01/28/19 10:13) Home Medications: Ambulatory Orders Medication Instructions Recorded Albuterol Aerosols [Ventolin 2.5 mg INHALATION Q4H PRN PRN 01/25/19 Aerosols] Cholecalciferol (Vitamin D3) 1 tab PO DAILY 01/25/19 [Vitamin D3] Diltiazem HCl [Cartia Xt] 240 mg PO DAILY 01/25/19 Fluticasone/Vilanterol [Breo 1 ea IH DAILY 01/25/19 Ellipta 100-25 Mcg INH] Iron Polysaccharide Complex 150 mg PO DAILYCM 01/25/19 [Ferrex 150] Metoprolol Tartrate [Lopressor 50 mg PO BID 01/25/19 (beta alex)] Pantoprazole Sodium [Protonix] 40 mg PO BID 01/25/19 Potassium Chloride [K-Dur] 40 meq PO DAILY 01/25/19 Pravastatin [Pravachol] 40 mg PO QHS 01/25/19 Vit A/Vit C/Vit E/Zinc/Copper 1 ea PO BID 01/25/19 [Preservision Areds Softgel] Apixaban [Eliquis] 5 mg PO BID #0 01/26/19 Furosemide [Lasix] 40 mg PO BIDLX #0 01/26/19 Past Medical History (Chronic Problems): Chronic Problems Acute exacerbation of chronic obstructive pulmonary disease (COPD) (Chronic) Hypertension (Chronic) Hyperlipidemia (Chronic) PAF (paroxysmal atrial fibrillation) (Chronic) COPD (chronic obstructive pulmonary disease) (Chronic) Paroxysmal SVT (supraventricular tachycardia) (Chronic) GERD (gastroesophageal reflux disease) (Chronic) Coronary artery disease (Chronic) CHF (congestive heart failure) (Chronic) Surgical History: - - He had excision of a left breast mass when he was 9 years of age and it was benign. Surgery for ruptured gastric ulcer x2. Psychiatric History: No pertinent psych hx - *Family History Maternal History Items: Stroke Paternal History Items: Dementia Offspring History Items: - Lives: Alone Smoking Status: Former smoker - Patient quit cigarette tobacco usage in 1992 with prior to this less than 1 pack/day since he was a young teenager. 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 Drugs: None Review of Systems - Review of Systems General: Reports: Fatigue. Denies: Fever, Malaise, Chills HEENT: Denies: Vision Change Cardiovascular: Reports: Shortness of Breath with Exertion. Denies: Chest Discomfort, Chest Discomfort at Rest, Chest Discomfort with Exertion, Chest Pressure, Chest Tightness, Chest Heaviness, Shortness of Breath, Shortness of Breath at Rest, Orthopnea, PND, Peripheral Edema, Palpitations, Lightheadedness, Dizziness, Near Syncope, Syncope Respiratory: Denies: Cough Neurological: Denies: Dizziness Subjectve: Patient seen and evaluated. He denies palpitations, chest pain, lightheadedness, dizziness, pre-syncope, syncope, orthopnea, or PND. He does acknowledge fatigue and SOB with activity. He states prior to admission that his general activity is limited. Objective: Vital Signs Temp Pulse Resp BP Pulse Ox 97.8 F 140 H 17 114/72 92 02/01/19 08:41 02/01/19 08:41 02/01/19 08:41 02/01/19 08:41 02/01/19 08:41 Oxygen Flow Rate (L/min) 1 Oxygen Delivery Method Room Air Weight: 203 lb 7.787 oz Body Mass Index (BMI) 29.2 Intake and Output for Last 24 Hours 01/30/19 01/31/19 02/01/19 23:59 23:59 23:59 Intake Total 1703.34 / 2063.34 890 / 890 Output Total 100 / 550 1250 / 1250 Balance 1603.34 / 1513.34 -360 / -360 General: Healthy Appearing, Awake, Alert, Oriented x 3, Cooperative Neck: No JVD Lungs: Clear to auscultation Cardiovascular: Irregular Rhythm, Normal S1, Normal S2, No Murmurs, No Rubs, No Gallops Vascular: No Carotid Bruits Abdomen: Bowel Sounds Present, Soft Extremities: No Cyanosis, No Clubbing, No edema, Normal Capillary Refill Neurological: No Focal Motor or Sensory Deficit Psych/Mental Status: Appropriate Rhythm: EKG: ECHO: 01/28/2019 Interpretation Summary Mildly dilated left ventricle. The estimated ejection fraction is 50-55 %. Unable to assess diastolic dysfunction due to arrhythmia. There is mild global hypokinesis of the left ventricle. The left atrium is moderately enlarged. The right atrium is severely enlarged. Trivial mitral valve insufficiency. Mild (1+) tricuspid valve insufficiency. Right ventricular systolic pressure estimated to be 40 mmHg. Mild pulmonary hypertension. The inferior vena cava is dilated Pt appears to be in atrial fibrillation. There is no comparison study available. The study was technically difficult. Stress Test: Cardiac Cath: PCI: CT Surgery: Holter monitor: EPS: PPM: CXR: Chest CT Scan: Assessment/Plan 1. Paroxysmal Atrial Fibrillation Patient continues to have atrial fibrillation with elevated rates. This tends to be most noted during times of activity. He denies any chest pain, palpitations, or lightheadedness. His echocardiogram from 01/28/2019 showed an EF of 50-55%, mildly dilated left ventricle, mild global hypokinesis of the left ventricle, left atrium is moderately enlarged, right atrium is severely enlarged, RVSP on 40mmg Hg and dilated inferior vena cava. His BNP was noted to be 183.9. He believes he had a heart catheterization or stress test approximately 12 years ago at [facility]. His blood pressure is improved today with systolics 110s-120s on average. His heart rate has fluctuated with 110s-120s with rates has high as 190 with activity. To better assist in rate control, he will begin Cardizem drip at 2.5 mg/hr maintaining a heart rate less than 110 and a systolic blood pressure greater than 85. If this is unsuccessful we can consider switching to amiodarone drip. Once his heart rate is well controlled we can re-titrate oral medications. Patient was on beta-alex/metoprolol tartrate 50 mg p.o. twice daily prior to admission. He appears to respond well to PRN IV metoprolol. Thus this too may be an option for rate control barring in mind history of COPD. He will continue with factor Xa inhibitor. 2. Atherosclerotic Coronary Artery Disease The exact details of his CAD are unknown. His troponin upon admission were negative. He denies any chest pain. At this time, we will continue current medical therapy and risk factor modification. 3. Hypertension His blood pressure is well controlled today. We will continue to monitor and titrate medication as indicated. 4. Diastolic Congestive Heart Failure Patient's echocardiogram from 01/28/2019 showed an ejection fraction of 50-55%, RVSP of 40 mmHg, and dilated inferior vena cava. His BNP was noted to be 183.9. He does not appear to be in a fluid volume overload state on exam. At this time, we will continue to hold diuretic due to low blood pressure. This will be monitored closely. His diuretic will be resumed as indicated or needed. 5. Hyperlipidemia He will continue with current statin medication. This will be followed on outpatient basis. Patient's case was discussed with Dr. Rodriguez, who also personally evaluated patient Thank you for allowing us to participate in the patients plan of care, if you have any questions please do not hesitate to call. This note was generated using a voice recognition system and there may be incorrect words, spelling or punctuation that were not noted when reviewing the office note prior to saving. <Alonso Rodriguez - Last Filed: 02/01/19 16:58> Reason for Consult History of Present Illness: The patient is a 73 year old M [] Objective: Vital Signs Temp Pulse Resp BP Pulse Ox 97.6 F L 107 H 20 H 112/78 95 02/01/19 16:00 02/01/19 16:00 02/01/19 16:00 02/01/19 16:00 02/01/19 16:00 Oxygen Flow Rate (L/min) 2 Oxygen Delivery Method Nasal Cannula Weight: 203 lb 7.787 oz Body Mass Index (BMI) 29.2 Intake and Output for Last 24 Hours 01/30/19 01/31/19 02/01/19 23:59 23:59 23:59 Intake Total 1703.34 / 2063.34 890 / 890 386.74 / 386.74 Output Total 100 / 550 1250 / 1250 275 / 275 Balance 1603.34 / 1513.34 -360 / -360 111.74 / 111.74 02/01/19 12:12: Sodium 139, Potassium 4.0, Chloride 106, Carbon Dioxide 28.0, Anion Gap 5, BUN 9, Creatinine 0.76, Est GFR (MDRD) Af Amer 129, Est GFR (MDRD) Non-Af 106, BUN/Creatinine Ratio 11.8, Glucose 115 H, Calcium 8.8, Magnesium 2.3 Rhythm: EKG: ECHO: Stress Test: Cardiac Cath: PCI: CT Surgery: Holter monitor: EPS: PPM: CXR: Chest CT Scan: Assessment/Plan Patient was seen, evaluated and discussed with James echevarria APN. Agree with James echevarria's note. We will try Cardizem drip in addition to the p.o. Cardizem and and then increase the p.o. Cardizem tomorrow and add beta-alex as necessary. Heart rate appears better with the Cardizem drip that has been started now.
[2019-02-01] MEDS: 0.9% NaCl Peripheral Flush Adult/Peds IV ×2 (10:58→12:33)
--- NOTE | 2019-02-01 11:34 | PCM.PN.HOSP ---
Patient Problems: Active and Suspected Problems Atrial fibrillation with rapid ventricular response (Acute) Subjective: Patient seen and examined. He had no complaints but states that when he got up to go to the bathroom today he became tachycardic. He denied any chest pain or dizziness, lightheadedness, abdominal pain, diarrhea vomiting. Review of systems otherwise negative. Cardiology consulted. Blood pressure has improved since Cardizem, metoprolol and Lasix were held. Vitals/I&O's: Vital Signs Temp Pulse Resp BP Pulse Ox 97.8 F 148 H 18 112/79 97 02/01/19 10:41 02/01/19 10:58 02/01/19 10:41 02/01/19 10:41 02/01/19 10:41 Oxygen Flow Rate (L/min) 2 Oxygen Delivery Method Nasal Cannula Weight: 203 lb 7.787 oz Body Mass Index (BMI) 29.2 Intake and Output for Last 24 Hours 01/30/19 01/31/19 02/01/19 23:59 23:59 23:59 Intake Total 1703.34 / 2063.34 890 / 890 Output Total 100 / 550 1250 / 1250 Balance 1603.34 / 1513.34 -360 / -360 General: Alert, Oriented x3, Cooperative, No apparent distress, HEENT: Atraumatic, PERRLA, EOMI, Normocephalic Oral: Dry Mucosa Neck: Supple, No JVD, Negative Carotid Bruits Lungs: Clear to auscultation, Normal air movement, No rhonchi, No wheeze, No rales, on room air Cardiovascular: irregular rate and irregular Rhythm, Normal S1, Normal S2, No murmurs Abdomen: Bowel Sounds Present, Soft, Non Tender, mildly distended, No Hepato-splenomegaly, Extremities: No clubbing, No cyanosis, No edema, Capillary Refill Less than 3 Seconds Skin: No rashes, No breakdown Musculoskeletal: No Tenderness to Palpation of Joints or Extremities Lymphatic: No Cervical, Supraclavicular, or Inguinal Adenopathy Neurological: Cranial nerves II-XII grossly intact, Neuro grossly intact, Motor Exam 5/5 strength throughout Psych/Mental Status: Normal Affect, Appropriate, Alert and oriented to time, place, person, mood and affect Current Medications Acetaminophen (Tylenol) 650 mg PO Q6H PRN PRN PRN Reason: Mild pain 1-3/Temp > 100.7 F Last Admin: 01/31/19 01:23 Dose: 650 mg Documented by: Al Hydroxide/Mg Hydroxide (Mylanta Ii) 30 ml PO Q6H PRN PRN PRN Reason: HEARTBURN Last Admin: 02/01/19 10:56 Dose: 30 ml Documented by: Albuterol Sulfate (Ventolin Aerosols) 2.5 mg INHALATION Q2H PRN PRN PRN Reason: SOB/Wheezing Last Admin: 02/01/19 03:13 Dose: 2.5 mg Documented by: Albuterol/Ipratropium (Duoneb) 3 ml INHALATION Q6HWA.RT [facility] Last Admin: 02/01/19 07:17 Dose: 3 ml Documented by: Apixaban (Eliquis) 5 mg PO BID [facility] Dextrose (D50w Syringe) 0 gm IV X1 PRN; Protocol PRN Reason: Hypoglycemia Diltiazem HCl (Cardizem Cd) 240 mg PO DAILY [facility] Last Admin: 01/31/19 10:40 Dose: Not Given Documented by: Diltiazem HCl (Cardizem Cd) 120 mg PO DAILY [facility] Last Admin: 02/01/19 10:56 Dose: Not Given Documented by: Docusate Sodium (Colace) 100 mg PO BID [facility] Last Admin: 02/01/19 08:51 Dose: 100 mg Documented by: Famotidine (Pepcid) 20 mg PO BID [facility] Last Admin: 02/01/19 08:51 Dose: 20 mg Documented by: Furosemide (Lasix) 40 mg PO BIDLX [facility] Last Admin: 01/31/19 10:40 Dose: Not Given Documented by: Glucagon () 1 mg IM .X1 PRN PRN Reason: Hypoglycemia Diltiazem HCl 125 mg/ Dextrose 125 mls @ 2.5 mls/hr CONT INF .Q50H [facility]; Protocol Magnesium Hydroxide (Milk Of Magnesia) 30 ml PO DAILY PRN PRN PRN Reason: Constipation Melatonin (Melatonin) 3 mg PO QHS PRN PRN PRN Reason: INSOMNIA Metoprolol Tartrate (Lopressor (Beta Pa)) 5 mg IV Q6H PRN PRN PRN Reason: HR>120 Last Admin: 02/01/19 10:58 Dose: 5 mg Documented by: Morphine Sulfate () 2 mg IV Q3H PRN PRN PRN Reason: Severe Pain (7-10/10) Last Admin: 01/29/19 16:39 Dose: 2 mg Documented by: Ondansetron HCl (Zofran) 4 mg IV Q8H PRN PRN PRN Reason: NAUSEA/VOMITING Oxycodone HCl (Oxyir) 5 mg PO Q4H PRN PRN PRN Reason: Moderate Pain (4-6/10) Last Admin: 01/30/19 08:16 Dose: 5 mg Documented by: Pantoprazole Sodium (Protonix) 40 mg PO BID [facility] Last Admin: 02/01/19 08:51 Dose: 40 mg Documented by: Polysaccharide [facility] ([facility]rex 150) [facility] Last Admin: 02/01/19 08:51 Dose: 150 mg Documented by: Potassium Chloride (K-Dur) 40 meq PO DAILY [facility] Last Admin: 02/01/19 08:51 Dose: 40 meq Documented by: Pravastatin Sodium (Pravachol) 40 mg PO QHS [facility] Last Admin: 01/31/19 21:07 Dose: 40 mg Documented by: Prochlorperazine Edisylate (Compazine Iv) 5 mg IV Q4H PRN PRN PRN Reason: Breakthrough Nausea/Vomiting Psyllium Hydrophilic Mucilloid (Metamucil) 1 packet PO DAILY PRN PRN PRN Reason: Constipation Sodium Chloride () 5 - 15 ml IV UD PRN PRN Reason: SALINE FLUSH Last Admin: 02/01/19 10:58 Dose: 10 ml Documented by: Medical Necessity - Tobacco Use Smoking Status: Former smoker - Patient quit cigarette tobacco usage in 1992 with prior to this less than 1 pack/day since he was a young teenager. Tobacco Use: Non-smoker Assessment/Plan All Active Problems Pancreatitis (Acute) Atrial fibrillation with rapid ventricular response (Acute) 1. Afib with RVR patient went into afib with RVR this morning; HR went up to 160s 2D echo: mild dilated LV, with EF of 50-55%, mild global hypokinesis of LV adn moderately enlarged LA. RA severely enlarged. RVSP estimated to be 40mmHg, with dilated IVC. cardizem and metoprolol had been on hold o/a of hypotension gave PO cardizem 120mg once today; cardiology consulted; wish to start patient on cardizem drip to see how BP responds. continue holding metoprolol eliquis resumed today 2. Asymptomatic hypotension, likely medication induced resolved after meds were held- cardizem, metoprolol and lasix started on cardizem today as under 1. 3. Cholelithiasis s/p laparoscopic cholecystectomy today is POD 4 stable general surgery on board; diet resumed pain management as per general surgery 4. Acute hypoxic respiratory insufficiency due to post op atelectasis resolved;. Now on room air encourage incentive spirometry use encouraged to ambulate chest physiotherapy breathing treatments prn 5. Chronic HFpEF: stable. on metoprolol and statin. also on lasix. Lasix held o/a of hypotension 6.history of CAD: non obstructive CAD. on metoprolol and statins. 7. History of gastric ulcer and GERD: on PPI. 8. Hypertension: On Cardizem, metoprolol and hydralazine. 9. Hyperlipidemia: On statins. 10. COPD: Not in exacerbation. On DuoNebs prn DVT prophylaxis: eliquis resumed today. Code Visit Inpatient E&M: 32444 [facility] Hosp L3
--- NOTE | 2019-02-01 11:41 | CASEMGMT ---
DONATO WANG NOTE: PT/OT notes have been reviewed and further therapy recommended. DONATO WANG to room to talk with pt and he was made aware of the recommendations. Discussed HHC vs OP therapy. Pt declines both, stating, I've been to [facility] twice and they've taught me all I need to know. I know what kind of things I can do at home and once I get there, I know I'll be able to get up and around more and do better. Pt made aware if he decides in the future he would be interested in HHC or OP therapy, to discuss this with is PCP. Pt voices understanding. He was also provided with [facility] Van transportation information and made aware they can provide transportation to any [facility] healthcare service/location in [place], [email or web address], if he would decide he would like to go there. Pt also provided with [place] [facility] Fact Sheet with contact information for pt to call for assistance with adaptive equipment and to see what other services he may qualify for. Pt voices appreciation. Pt made aware that Almaz from [facility] states she will see him on next Monday. Pt voices understanding. German BACA RN, CM
[2019-02-01] MEDS: APIXABAN 5 MG TABLET PO ×2 (12:32→20:44)
[2019-02-01 13:06] LABS: Anion Gap 5 (5-15); BUN 9 mg/dL (7-18); BUN/Creat Ratio 11.8 RATIO (10-20); Calcium,Total 8.8 mg/dL (8.5-10.1); Chloride 106 mmol/L (98-107); Creatinine, Serum 0.76 mg/dL (0.70-1.30); EST Glomerular Filtration Rate 106 mL/min (>60); Est Glom Filt Rate - Afr Amer 129 mL/min (>60); Estimated Creatinine Clearance 67.93 ml/min; Glucose 115 mg/dL (74-106); Magnesium 2.3 mg/dL (1.6-2.6); Sodium Level 139 mmol/L (136-145)
--- NOTE | 2019-02-01 14:32 | CASEMGMT ---
Green sheet on chart for possible home oxygen, if qualifies. Yumiko SEWELL CM
[2019-02-01] MEDS: Fleet Enema 1 ML RECTAL (19:07)
--- NOTE | 2019-02-01 19:41 | NURSING ---
Accepted card of pt at 1930, pt HR elevated above cardizem gtt goal of 100bpm indicating according to mar that med should be titrated up by 5mg/hr. Max gtt of 15 mg/hr. Unable to follow orders at this time. Call made to hospitalist, awaiting return call.
--- NOTE | 2019-02-01 20:31 | NURSING ---
This RN went to pt room after discussions with MD's to adjust medication gtt and became aware that stepdown monitor was not recording pt bp since 19:30. Was unable to remedy the mechanical failure and placed pt on different monitor. HR, respirations and pulse ox monitoring continuous during this time.
[2019-02-01] MEDS: Pravastatin 40 MG Tablet PO (20:43)
[2019-02-02] VITALS (42 sets, daily range): BP systolic 92–125; BP diastolic 57–80; PULSE 77–116; RESP 14–32; TEMP 36.6–37; O2SAT 16–96
[2019-02-02] MEDS: Ipratropium/Albuterol Sulfate 3 ML AMPUL.NEB INHALATION ×4 (00:54→19:36)
--- NOTE | 2019-02-02 08:06 | PN.SURG_ITS ---
Patient Problems: Active and Suspected Problems Atrial fibrillation with rapid ventricular response (Acute) Subjective: Patient reports no issues. He was bloated yesterday but I gave him a fleets enema and he had several large bowel movements and today is not complaining of any abdominal distention or abdominal pain. No nausea or vomiting. He tolerates breakfast but does not have much of an appetite for lunch or dinner. - Physical Exam General: Alert, Oriented x3 Neck: No JVD Lungs: Normal air movement Cardiovascular: Tachycardic Abdomen: Soft, Non Tender, Non-Distended Vital Signs Temp Pulse Resp BP Pulse Ox 98.5 F 107 H 32 H 107/67 92 02/02/19 06:00 02/02/19 07:00 02/02/19 07:00 02/02/19 07:00 02/02/19 07:00 Oxygen Flow Rate (L/min) 2 Oxygen Delivery Method Nasal Cannula Weight: 203 lb 7.787 oz Body Mass Index (BMI) 29.2 Intake and Output for Last 24 Hours 01/31/19 02/01/19 02/02/19 23:59 23:59 23:59 Intake Total 890 / 890 713.25 / 728.00 119.75 / 119.75 Output Total 1250 / 1250 1225 / 1225 Balance -360 / -360 -511.75 / -497.00 119.75 / 119.75 Laboratory Tests Past 24 Hrs 02/01/19 12:12 Sodium 139 Potassium 4.0 Chloride 106 Carbon Dioxide 28.0 Anion Gap 5 BUN 9 Creatinine 0.76 Estim Creat Clear Calc 67.93 Est GFR (MDRD) Af Amer 129 Est GFR (MDRD) Non-Af 106 BUN/Creatinine Ratio 11.8 Glucose 115 H Calcium 8.8 Magnesium 2.3 Medical Necessity - Tobacco Use Smoking Status: Former smoker - Patient quit cigarette tobacco usage in 1992 with prior to this less than 1 pack/day since he was a young teenager. Tobacco Use: Non-smoker Assessment/Plan All Active Problems Pancreatitis (Acute) Atrial fibrillation with rapid ventricular response (Acute) 73-year-old male status post laparoscopic cholecystectomy with A. fib RVR 1. The patient is doing well from a postsurgical standpoint. He is tolerating a diet and responded to the Fleet Enema with several bowel movements. His abdomen is soft and nontender. He is not having any nausea or vomiting but he is having a decreased appetite. 2. Patient is still in A. fib RVR despite Cardizem drip. Cardiology is consulted. His Eliquis has been resumed. Okay for discharge once heart rate is controlled. We will continue to monitor and allow cardiology to work with his medications. Jesse Fisher MD Pager: [facility] [address] [place] [address], [address] [place] [address] Office:
[2019-02-02] MEDS: APIXABAN 5 MG TABLET PO ×2 (10:20→21:31)
[2019-02-02] MEDS: Famotidine 20 MG Tablet PO ×2 (10:20→21:31)
[2019-02-02] MEDS: Pantoprazole Sodium 40 MG Tablet PO ×2 (10:20→21:31)
[2019-02-02] MEDS: dilTIAZem CD 120 MG Capsule PO (10:20)
[2019-02-02] MEDS: dilTIAZem 60 MG Tablet PO ×3 (10:20→23:30)
[2019-02-02] MEDS: Iron Polysaccharide Complex 150 MG CAPSULE PO (10:21)
--- NOTE | 2019-02-02 10:54 | PCM.PN.HOSP ---
Patient Problems: Active and Suspected Problems Atrial fibrillation with rapid ventricular response (Acute) Subjective: Patient seen and examined. He has no complaints and feels well. He remains on Cardizem drip and is currently maxed out. His heart rate still remains poorly controlled and is fluctuating between the low 100s up to like 130s during review. He denies any palpitations or dizziness or shortness of breath. Review of systems otherwise negative. Labs and vitals reviewed. Vitals/I&O's: Vital Signs Temp Pulse Resp BP Pulse Ox 98.5 F 88 19 H 108/60 94 02/02/19 06:00 02/02/19 09:00 02/02/19 09:00 02/02/19 09:00 02/02/19 09:00 Oxygen Flow Rate (L/min) 2 Oxygen Delivery Method Room Air Weight: 203 lb 7.787 oz Body Mass Index (BMI) 29.2 Intake and Output for Last 24 Hours 01/31/19 02/01/19 02/02/19 23:59 23:59 23:59 Intake Total 890 / 890 713.25 / 728.00 141.00 / 141.00 Output Total 1250 / 1250 1225 / 1225 Balance -360 / -360 -511.75 / -497.00 141.00 / 141.00 General: Alert, Oriented x3, Cooperative, No apparent distress, HEENT: Atraumatic, PERRLA, EOMI, Normocephalic Oral: Dry Mucosa Neck: Supple, No JVD, Negative Carotid Bruits Lungs: Clear to auscultation, Normal air movement, No rhonchi, No wheeze, No rales, on room air Cardiovascular: irregular rate and irregular Rhythm, Normal S1, Normal S2, No murmurs Abdomen: Bowel Sounds Present, Soft, Non Tender, mildly distended, No Hepato-splenomegaly, Extremities: No clubbing, No cyanosis, No edema, Capillary Refill Less than 3 Seconds Skin: No rashes, No breakdown Musculoskeletal: No Tenderness to Palpation of Joints or Extremities Lymphatic: No Cervical, Supraclavicular, or Inguinal Adenopathy Neurological: Cranial nerves II-XII grossly intact, Neuro grossly intact, Motor Exam 5/5 strength throughout Psych/Mental Status: Normal Affect, Appropriate, Alert and oriented to time, place, person, mood and affect Laboratory Results 10/11/19 12:12: Sodium 139, Potassium 4.0, Chloride 106, Carbon Dioxide 28.0, Anion Gap 5, BUN 9, Creatinine 0.76, Estim Creat Clear Calc 67.93, Est GFR (MDRD) Af Amer 129, Est GFR (MDRD) Non-Af 106, BUN/Creatinine Ratio 11.8, Glucose 115 H, Calcium 8.8, Magnesium 2.3 Current Medications Acetaminophen (Tylenol) 650 mg PO Q6H PRN PRN PRN Reason: Mild pain 1-3/Temp > 100.7 F Last Admin: 01/31/19 01:23 Dose: 650 mg Documented by: Al Hydroxide/Mg Hydroxide (Mylanta Ii) 30 ml PO Q6H PRN PRN PRN Reason: HEARTBURN Last Admin: 02/01/19 10:56 Dose: 30 ml Documented by: Albuterol Sulfate (Ventolin Aerosols) 2.5 mg INHALATION Q2H PRN PRN PRN Reason: SOB/Wheezing Last Admin: 02/01/19 03:13 Dose: 2.5 mg Documented by: Albuterol/Ipratropium (Duoneb) 3 ml INHALATION Q6HWA.RT [facility] Last Admin: 02/02/19 06:26 Dose: 3 ml Documented by: Apixaban (Eliquis) 5 mg PO BID [facility] Last Admin: 02/02/19 10:20 Dose: 5 mg Documented by: Dextrose (D50w Syringe) 0 gm IV X1 PRN; Protocol PRN Reason: Hypoglycemia Diltiazem HCl (Cardizem Cd) 120 mg PO DAILY [facility] Last Admin: 02/02/19 10:20 Dose: 120 mg Documented by: Diltiazem HCl (Cardizem) 60 mg PO Q6 [facility] Last Admin: 02/02/19 10:20 Dose: 60 mg Documented by: Docusate Sodium (Colace) 100 mg PO BID [facility] Last Admin: 02/02/19 10:19 Dose: Not Given Documented by: Famotidine (Pepcid) 20 mg PO BID [facility] Last Admin: 02/02/19 10:20 Dose: 20 mg Documented by: Furosemide (Lasix) 40 mg PO BIDLX [facility] Last Admin: 01/31/19 10:40 Dose: Not Given Documented by: Glucagon () 1 mg IM .X1 PRN PRN Reason: Hypoglycemia Diltiazem HCl 125 mg/ Dextrose 125 mls @ 2.5 mls/hr CONT INF .Q50H [facility]; Protocol Last Admin: 02/02/19 09:48 Dose: 15 mg/hr, 15 mls/hr Documented by: Magnesium Hydroxide (Milk Of Magnesia) 30 ml PO DAILY PRN PRN PRN Reason: Constipation Melatonin (Melatonin) 3 mg PO QHS PRN PRN PRN Reason: INSOMNIA Metoprolol Tartrate (Lopressor (Beta Pa)) 5 mg IV Q6H PRN PRN PRN Reason: HR>120 Last Admin: 02/01/19 10:58 Dose: 5 mg Documented by: Morphine Sulfate () 2 mg IV Q3H PRN PRN PRN Reason: Severe Pain (7-10/10) Last Admin: 01/29/19 16:39 Dose: 2 mg Documented by: Ondansetron HCl (Zofran) 4 mg IV Q8H PRN PRN PRN Reason: NAUSEA/VOMITING Oxycodone HCl (Oxyir) 5 mg PO Q4H PRN PRN PRN Reason: Moderate Pain (4-6/10) Last Admin: 01/30/19 08:16 Dose: 5 mg Documented by: Pantoprazole Sodium (Protonix) 40 mg PO BID [facility] Last Admin: 02/02/19 10:20 Dose: 40 mg Documented by: Polysaccharide [facility] ([facility]rex 150) [facility] Last Admin: 02/02/19 10:21 Dose: 150 mg Documented by: Potassium Chloride (K-Dur) 40 meq PO DAILY [facility] Last Admin: 02/02/19 10:20 Dose: 40 meq Documented by: Pravastatin Sodium (Pravachol) 40 mg PO QHS [facility] Last Admin: 02/01/19 20:43 Dose: 40 mg Documented by: Prochlorperazine Edisylate (Compazine Iv) 5 mg IV Q4H PRN PRN PRN Reason: Breakthrough Nausea/Vomiting Psyllium Hydrophilic Mucilloid (Metamucil) 1 packet PO DAILY PRN PRN PRN Reason: Constipation Simethicone (Mylicon) 80 mg PO TIDPC PRN PRN Reason: Gas Sodium Chloride () 5 - 15 ml IV UD PRN PRN Reason: SALINE FLUSH Last Admin: 10/11/19 12:33 Dose: 10 ml Documented by: Medical Necessity - Tobacco Use Smoking Status: Former smoker - Patient quit cigarette tobacco usage in 1992 with prior to this less than 1 pack/day since he was a young teenager. Tobacco Use: Non-smoker Assessment/Plan All Active Problems Pancreatitis (Acute) Atrial fibrillation with rapid ventricular response (Acute) 1. Afib with RVR hR remains poorly controlled, and was up in the 130s today 2D echo: mild dilated LV, with EF of 50-55%, mild global hypokinesis of LV adn moderately enlarged LA. RA severely enlarged. RVSP estimated to be 40mmHg, with dilated IVC. on cardizem drip and is currently maxed out. Metoprolol on hold on eliquis cardiology on board; start Po cardizem immediate release 60mg q6 in addition to PO cardizem 120mg. titrate cardizem drip downwards as tolerated 2. Asymptomatic hypotension, likely medication induced resolved on cardizem drip, but BP has remained stable, in the 120s systolic will monitor 3. Cholelithiasis s/p laparoscopic cholecystectomy today is POD 5 stable general surgery on board pain management as per general surgery 4. Acute hypoxic respiratory insufficiency due to post op atelectasis resolved;. Now on room air encourage incentive spirometry use encouraged to ambulate chest physiotherapy breathing treatments prn 5. Chronic HFpEF: stable. on metoprolol and statin. also on lasix. Lasix and metoprolol held o/a of hypotension 6.history of CAD: non obstructive CAD. on metoprolol and statins. 7. History of gastric ulcer and GERD: on PPI. 8. Hypertension: On Cardizem, metoprolol and hydralazine. 9. Hyperlipidemia: On statins. 10. COPD: stable. On DuoNebs prn DVT prophylaxis: eliquis. Code Visit OBSV E&M: 17808 Subsequent observation care L2
--- NOTE | 2019-02-02 14:00 | PCM.PN.CARD ---
Subjectve: Patient does not have any cardiac complaints at this time. He required 15 mg/h of Cardizem overnight. Objective: Vital Signs Temp Pulse Resp BP Pulse Ox 97.9 F 81 14 103/71 95 02/02/19 12:14 02/02/19 13:42 02/02/19 13:42 02/02/19 13:15 02/02/19 13:15 Oxygen Flow Rate (L/min) 2 Oxygen Delivery Method Room Air Weight: 203 lb 7.787 oz Body Mass Index (BMI) 29.2 Intake and Output for Last 24 Hours 01/31/19 02/01/19 02/02/19 23:59 23:59 23:59 Intake Total 890 / 890 713.25 / 728.00 191.51 / 191.51 Output Total 1250 / 1250 1225 / 1225 200 / 200 Balance -360 / -360 -511.75 / -497.00 -8.49 / -8.49 General: Awake, Alert, Oriented x 3 HEENT: Atraumatic Oral: Moist Mucosa Neck: Supple Cardiovascular: Irregular Rhythm Extremities: No edema Skin: No Rashes Psych/Mental Status: Appropriate Rhythm: EKG: ECHO: Stress Test: Cardiac Cath: PCI: CT Surgery: Holter monitor: EPS: PPM: CXR: Chest CT Scan: Medical Necessity - Tobacco Use Smoking Status: Former smoker - Patient quit cigarette tobacco usage in 1992 with prior to this less than 1 pack/day since he was a young teenager. Tobacco Use: Non-smoker Assessment/Plan 1. Atrial fibrillation: In addition to the 120 mill grams of Cardizem CD we will add 60 mg every 6 hours of short acting Cardizem. We will try to wean off the IV Cardizem. If required we may have to add beta-blockers as well.
[2019-02-02] MEDS: Albuterol 2.5 MG/3 ML VIAL.NEB. INHALATION ×2 (17:09→23:58)
[2019-02-02] MEDS: Pravastatin 40 MG Tablet PO (21:31)
[2019-02-03] VITALS (9 sets, daily range): BP systolic 120–129; BP diastolic 74–83; PULSE 81–112; RESP 16–20; TEMP 36.4–37.1; O2SAT 92–95
[2019-02-03] MEDS: Albuterol 2.5 MG/3 ML VIAL.NEB. INHALATION ×2 (04:51→11:58)
[2019-02-03] MEDS: dilTIAZem 60 MG Tablet PO ×2 (05:47→12:02)
[2019-02-03] MEDS: 0.9% NaCl Peripheral Flush Adult/Peds IV ×2 (05:49→05:50)
--- NOTE | 2019-02-03 07:18 | PN.SURG_ITS ---
Patient Problems: Active and Suspected Problems Atrial fibrillation with rapid ventricular response (Acute) Subjective: Patient tolerating a diet with no abdominal pain and having bowel movements. - Physical Exam General: Alert, Oriented x3 Abdomen: Soft, Non Tender, Non-Distended Vital Signs Temp Pulse Resp BP Pulse Ox 98.8 F 98 18 120/78 92 02/03/19 05:45 02/03/19 05:45 02/03/19 05:45 02/03/19 05:45 02/03/19 05:45 Oxygen Flow Rate (L/min) 2 Oxygen Delivery Method Room Air Weight: 203 lb 7.787 oz Body Mass Index (BMI) 29.2 Intake and Output for Last 24 Hours 02/01/19 02/02/19 02/03/19 23:59 23:59 23:59 Intake Total 713.25 / 728.00 204.03 / 204.03 360 / 360 Output Total 1225 / 1225 500 / 500 250 / 250 Balance -511.75 / -497.00 -295.97 / -295.97 110 / 110 Medical Necessity - Tobacco Use Smoking Status: Former smoker - Patient quit cigarette tobacco usage in 1992 with prior to this less than 1 pack/day since he was a young teenager. Tobacco Use: Non-smoker Assessment/Plan All Active Problems Pancreatitis (Acute) Atrial fibrillation with rapid ventricular response (Acute) 73-year-old male status post lap scopic cholecystectomy with A. fib RVR 1. Patient is tolerating diet with no abdominal pain. He is okay for discharge from my standpoint. Once the consultants have signed off and oral regimen is established I will discharge patient home. Jesse Fisher MD Pager: [facility] [address] [place] [address], [address] [place] [address] Office:
[2019-02-03] MEDS: Ipratropium/Albuterol Sulfate 3 ML AMPUL.NEB INHALATION (07:48)
[2019-02-03] MEDS: Iron Polysaccharide Complex 150 MG CAPSULE PO (07:58)
[2019-02-03] MEDS: dilTIAZem CD 120 MG Capsule PO (07:58)
[2019-02-03] MEDS: Pantoprazole Sodium 40 MG Tablet PO (07:59)
[2019-02-03] MEDS: Famotidine 20 MG Tablet PO (07:59)
[2019-02-03] MEDS: APIXABAN 5 MG TABLET PO (07:59)
--- NOTE | 2019-02-03 11:07 | PN_ITS ---
Patient Problems: Active and Suspected Problems Atrial fibrillation with rapid ventricular response (Acute) Subjective: Patient seen and examined. He had no complaints and felt well. He was weaned off Cardizem drip overnight. He denies any chest pain or palpitations, dizziness, diarrhea or vomiting. Review of systems otherwise negative. Vitals/I&O's: Vital Signs Temp Pulse Resp BP Pulse Ox 98.8 F 100 16 120/78 92 02/03/19 05:45 02/03/19 07:48 02/03/19 07:48 02/03/19 05:45 02/03/19 07:48 Oxygen Flow Rate (L/min) 2 Oxygen Delivery Method Room Air Weight: 203 lb 7.787 oz Body Mass Index (BMI) 29.2 Intake and Output for Last 24 Hours 02/01/19 02/02/19 02/03/19 23:59 23:59 23:59 Intake Total 713.25 / 728.00 204.03 / 204.03 360 / 360 Output Total 1225 / 1225 500 / 500 250 / 250 Balance -511.75 / -497.00 -295.97 / -295.97 110 / 110 General: Alert, Oriented x3, Cooperative, No apparent distress, HEENT: Atraumatic, PERRLA, EOMI, Normocephalic Oral: Dry Mucosa Neck: Supple, No JVD, Negative Carotid Bruits Lungs: Clear to auscultation, Normal air movement, No rhonchi, No wheeze, No rales, on room air Cardiovascular: irregular rate and irregular Rhythm, Normal S1, Normal S2, No murmurs Abdomen: Bowel Sounds Present, Soft, Non Tender, mildly distended, No Hepato- splenomegaly, Extremities: No clubbing, No cyanosis, No edema, Capillary Refill Less than 3 Seconds Skin: No rashes, No breakdown Musculoskeletal: No Tenderness to Palpation of Joints or Extremities Lymphatic: No Cervical, Supraclavicular, or Inguinal Adenopathy Neurological: Cranial nerves II-XII grossly intact, Neuro grossly intact, Motor Exam 5/5 strength throughout Psych/Mental Status: Normal Affect, Appropriate, Alert and oriented to time, place, person, mood and affect Current Medications Acetaminophen (Tylenol) 650 mg PO Q6H PRN PRN PRN Reason: Mild pain 1-3/Temp > 100.7 F Last Admin: 01/31/19 01:23 Dose: 650 mg Documented by: Al Hydroxide/Mg Hydroxide (Mylanta Ii) 30 ml PO Q6H PRN PRN PRN Reason: HEARTBURN Last Admin: 02/01/19 10:56 Dose: 30 ml Documented by: Albuterol Sulfate (Ventolin Aerosols) 2.5 mg INHALATION Q2H PRN PRN PRN Reason: SOB/Wheezing Last Admin: 02/03/19 04:51 Dose: 2.5 mg Documented by: Albuterol/Ipratropium (Duoneb) 3 ml INHALATION Q6HWA.RT [facility] Last Admin: 02/03/19 07:48 Dose: 3 ml Documented by: Apixaban (Eliquis) 5 mg PO BID [facility] Last Admin: 02/03/19 07:59 Dose: 5 mg Documented by: Dextrose (D50w Syringe) 0 gm IV X1 PRN; Protocol PRN Reason: Hypoglycemia Diltiazem HCl (Cardizem Cd) 120 mg PO DAILY [facility] Last Admin: 02/03/19 07:58 Dose: 120 mg Documented by: Diltiazem HCl (Cardizem) 60 mg PO Q6 [facility] Last Admin: 02/03/19 05:47 Dose: 60 mg Documented by: Docusate Sodium (Colace) 100 mg PO BID [facility] Last Admin: 02/03/19 07:58 Dose: Not Given Documented by: Famotidine (Pepcid) 20 mg PO BID [facility] Last Admin: 02/03/19 07:59 Dose: 20 mg Documented by: Furosemide (Lasix) 40 mg PO BIDLX [facility] Last Admin: 01/31/19 10:40 Dose: Not Given Documented by: Glucagon () 1 mg IM .X1 PRN PRN Reason: Hypoglycemia Diltiazem HCl 125 mg/ Dextrose 125 mls @ 2.5 mls/hr CONT INF .Q50H [facility]; Protocol Last Titration: 02/02/19 15:15 Dose: Infused Documented by: Magnesium Hydroxide (Milk Of Magnesia) 30 ml PO DAILY PRN PRN PRN Reason: Constipation Melatonin (Melatonin) 3 mg PO QHS PRN PRN PRN Reason: INSOMNIA Metoprolol Tartrate (Lopressor (Beta Pa)) 5 mg IV Q6H PRN PRN PRN Reason: HR>120 Last Admin: 02/01/19 10:58 Dose: 5 mg Documented by: Morphine Sulfate () 2 mg IV Q3H PRN PRN PRN Reason: Severe Pain (7-10/10) Last Admin: 01/29/19 16:39 Dose: 2 mg Documented by: Ondansetron HCl (Zofran) 4 mg IV Q8H PRN PRN PRN Reason: NAUSEA/VOMITING Oxycodone HCl (Oxyir) 5 mg PO Q4H PRN PRN PRN Reason: Moderate Pain (4-6/10) Last Admin: 01/30/19 08:16 Dose: 5 mg Documented by: Pantoprazole Sodium (Protonix) 40 mg PO BID [facility] Last Admin: 02/03/19 07:59 Dose: 40 mg Documented by: Polysaccharide Iron [facility] (Ferrex 150) [facility] Last Admin: 02/03/19 07:58 Dose: 150 mg Documented by: Potassium Chloride (K-Dur) 40 meq PO DAILY [facility] Last Admin: 02/03/19 07:59 Dose: 40 meq Documented by: Pravastatin Sodium (Pravachol) 40 mg PO QHS [facility] Last Admin: 02/02/19 21:31 Dose: 40 mg Documented by: Prochlorperazine Edisylate (Compazine Iv) 5 mg IV Q4H PRN PRN PRN Reason: Breakthrough Nausea/Vomiting Psyllium Hydrophilic Mucilloid (Metamucil) 1 packet PO DAILY PRN PRN PRN Reason: Constipation Simethicone (Mylicon) 80 mg PO TIDPC PRN PRN Reason: Gas Sodium Chloride () 5 - 15 ml IV UD PRN PRN Reason: SALINE FLUSH Last Admin: 02/03/19 05:50 Dose: 10 ml Documented by: Medical Necessity - Tobacco Use Smoking Status: Former smoker - Patient quit cigarette tobacco usage in 1992 with prior to this less than 1 pack/day since he was a young teenager. Tobacco Use: Non-smoker Assessment/Plan All Active Problems Pancreatitis (Acute) Atrial fibrillation with rapid ventricular response (Acute) 1. Afib with RVR * HR control has improved; he has been off cardizem drip * 2D echo: mild dilated LV, with EF of 50-55%, mild global hypokinesis of LV adn moderately enlarged LA. RA severely enlarged. RVSP estimated to be 40mmHg, with dilated IVC. * per cardiology,to continue cardizem CD 120mg daily, and add on metoprolol 25mg bid. * continue eliquis * to follow up with cardiology upon discharge. * 2. Asymptomatic hypotension, likely medication induced * resolved * 3. Cholelithiasis s/p laparoscopic cholecystectomy * today is POD 6 * stable * general surgery on board * 4. Acute hypoxic respiratory insufficiency due to post op atelectasis * resolved;. Now on room air * 5. Chronic HFpEF: stable. on metoprolol and statin. also on lasix. resume metoprolol and lasix as hypotension has resolved. 6.history of CAD: non obstructive CAD. on metoprolol and statin. 7. History of gastric ulcer and GERD: on PPI. 8. Hypertension: On Cardizem, metoprolol and hydralazine. 9. Hyperlipidemia: On statins. 10. COPD: stable. On DuoNebs prn DVT prophylaxis: eliquis. Disposition: to mo home today on PO cardizem CD 120mg daily, and PO metoprolol 25mg bid. Code Visit Inpatient E&M: 19142 Subs Hosp L2
--- NOTE | 2019-02-03 11:18 | DCINST_ITS ---
Discharge Diet: No Restrictions Discharge Activity: Return to Normal Activity, May Shower Call your doctor if your incision/area has: Continuous Slow Oozing, Sudden Increased Bleeding, Increased Pain/ Swelling, Increased Redness, Foul Smelling Discharge, Fever of 101 or Higher Call your doctor if you observe: Fever of 101 or Higher Suture Line Care: Avoid Pulling/Pushing, Avoid Pinching/Bending Remove Dressing in (days):: 1 - Remove clear bandages tomorrow. Remove white steri strips in 7 days Additional Dressing/Incision Instructions:: Leave operative bandaids on for 2 days. When you remove dressing, leave Steri-Strips on until your follow-up appointment, or until the Steri-Strips fall off on their own. Additional Instructions: Please note that your metoprolol and cardizem doses have changed. New prescriptions with new dosages sent to [facility]. Allergies/Adverse Reactions: Allergies No Known Allergies Allergy (Verified 01/28/19 10:13) Medications to take at Discharge Albuterol Aerosols [Ventolin Aerosols] 2.5 mg INHALATION Q4H PRN PRN 01/25/19 Cholecalciferol (Vitamin D3) [Vitamin D3] 1 tab PO DAILY 01/25/19 Fluticasone/Vilanterol [Breo Ellipta 100-25 Mcg INH] 1 ea IH DAILY 01/25/19 Iron Polysaccharide Complex [Ferrex 150] 150 mg PO DAILYCM 01/25/19 Pantoprazole Sodium [Protonix] 40 mg PO BID 01/25/19 Potassium Chloride [K-Dur] 40 meq PO DAILY 01/25/19 Pravastatin [Pravachol] 40 mg PO QHS 01/25/19 Vit A/Vit C/Vit E/Zinc/Copper [Preservision Areds Softgel] 1 ea PO BID 01/25/19 Apixaban [Eliquis] 5 mg PO BID #0 01/26/19 Furosemide [Lasix] 40 mg PO BIDLX #0 01/26/19 Diltiazem CD [Cardizem CD] 120 mg PO DAILY 30 Days #30 cap 02/03/19 Metoprolol Tartrate 25 mg PO BID 30 Days #60 tab 02/03/19 The following prescriptions were given: Diltiazem CD [Cardizem CD] 120 mg PO DAILY 30 Days #30 cap Transmission Status: Pending to [id number] Metoprolol Tartrate 25 mg PO BID 30 Days #60 tab Transmission Status: Pending to [id number] Primary Care Physician: Clifton Del Valle Chi, MD [Primary Care Provider] - Test Results: Test results from this visit will be discussed in further detail at your follow- up appointment, if applicable. Please Follow Up With: Jesse Fisher MD When: call tomorrow to make 1 week follow up appt [phone] Please Follow Up With: Alonso Rodriguez MD When: call for appt
--- NOTE | 2019-02-03 11:21 | PCM.DC.SUM ---
Discharge Date and Diagnosis Date of Admission: 01/28/19 Date of Discharge: 02/03/19 - Primary Discharge Diagnosis Active and Suspected Problems Atrial fibrillation with rapid ventricular response (Acute) Gallstone pancreatitis - Secondary Discharge Diagnosis Chronic Problems Acute exacerbation of chronic obstructive pulmonary disease (COPD) (Chronic) Hypertension (Chronic) Hyperlipidemia (Chronic) PAF (paroxysmal atrial fibrillation) (Chronic) COPD (chronic obstructive pulmonary disease) (Chronic) Paroxysmal SVT (supraventricular tachycardia) (Chronic) GERD (gastroesophageal reflux disease) (Chronic) Coronary artery disease (Chronic) CHF (congestive heart failure) (Chronic) Hospital Course and Treatment Imaging Results: Clinical Impression(s) from Imaging Studies Chest X-Ray 01/30/19 10:00 IMPRESSION: No acute pathology. Electronically Signed: James Browning, at 11:17 EDT Tel , Service support , Hospitalist service Cardiology Operations: [email or web address] Procedures: Transthoracic echo Summary of Care Provided: The patient is a 73 year old M was admitted for elective laparoscopic cholecystectomy due to gallstone pancreatitis. Postoperatively the patient had A. fib RVR which required rate control. He was then hypotensive those medications were stopped and then he became more tachycardic. Cardiology was consulted and adjusted his medications. Once his medications were stabilized he was discharged home in stable condition. He will follow-up with cardiology and myself. - Physical Exam Vital Signs Temp Pulse Resp BP Pulse Ox 98.8 F 100 16 120/78 92 02/03/19 05:45 02/03/19 07:48 02/03/19 07:48 02/03/19 05:45 02/03/19 07:48 Oxygen Flow Rate (L/min) 2 Oxygen Delivery Method Room Air Weight: 203 lb 7.787 oz Body Mass Index (BMI) 29.2 Intake and Output for Last 24 Hours 02/01/19 02/02/19 02/03/19 23:59 23:59 23:59 Intake Total 713.25 / 728.00 204.03 / 204.03 360 / 360 Output Total 1225 / 1225 500 / 500 250 / 250 Balance -511.75 / -497.00 -295.97 / -295.97 110 / 110 Discharge Diet: No Restrictions Discharge Activity: Return to Normal Activity, May Shower Call your doctor if your incision/area has: Continuous Slow Oozing, Sudden Increased Bleeding, Increased Pain/ Swelling, Increased Redness, Foul Smelling Discharge, Fever of 101 or Higher Call your doctor if you observe: Fever of 101 or Higher Suture Line Care: Avoid Pulling/Pushing, Avoid Pinching/Bending Remove Dressing in (days):: 1 - Remove clear bandages tomorrow. Remove white steri strips in 7 days Additional Dressing/Incision Instructions:: Leave operative bandaids on for 2 days. When you remove dressing, leave Steri-Strips on until your follow-up appointment, or until the Steri-Strips fall off on their own. Home Medications: Medications to take at Discharge Albuterol Aerosols [Ventolin Aerosols] 2.5 mg INHALATION Q4H PRN PRN 01/25/19 Cholecalciferol (Vitamin D3) [Vitamin D3] 1 tab PO DAILY 01/25/19 Fluticasone/Vilanterol [Breo Ellipta 100-25 Mcg INH] 1 ea IH DAILY 01/25/19 Iron Polysaccharide Complex [Ferrex 150] 150 mg PO DAILYCM 01/25/19 Pantoprazole Sodium [Protonix] 40 mg PO BID 01/25/19 Potassium Chloride [K-Dur] 40 meq PO DAILY 01/25/19 Pravastatin [Pravachol] 40 mg PO QHS 01/25/19 Vit A/Vit C/Vit E/Zinc/Copper [Preservision Areds Softgel] 1 ea PO BID 01/25/19 Apixaban [Eliquis] 5 mg PO BID #0 01/26/19 Furosemide [Lasix] 40 mg PO BIDLX #0 01/26/19 Diltiazem CD [Cardizem CD] 120 mg PO DAILY 30 Days #30 cap 02/03/19 Metoprolol Tartrate 25 mg PO BID 30 Days #60 tab 02/03/19 Following Prescrptions Were Given to Patient: Diltiazem CD [Cardizem CD] 120 mg PO DAILY 30 Days #30 cap Transmission Status: Received by [id number] Metoprolol Tartrate 25 mg PO BID 30 Days #60 tab Transmission Status: Received by [id number] Primary Care Physician: Clifton Del Valle Chi, MD [Primary Care Provider] - Please Follow Up With: Jesse Fisher MD When: call tomorrow to make 1 week follow up appt [phone] Please Follow Up With: Alonso Rodriguez MD When: call for appt Additional Instructions: Please note that your metoprolol and cardizem doses have changed. New prescriptions with new dosages sent to [facility]. Medical Necessity - Tobacco Use Smoking Status: Former smoker - Patient quit cigarette tobacco usage in 1992 with prior to this less than 1 pack/day since he was a young teenager. Tobacco Use: Non-smoker Meaningful Use Info Meaningful Use Diagnoses (Choose all that apply): CHF - CHF ROCÍO/ARB ordered at discharge?: Yes Documented LVEF (%): 55
--- NOTE | 2019-02-04 15:37 | CASEMGMT ---
Case Management DC F/u Call: DC Date: 02/03/19 DC Diagnosis: Atrial fibrillation with rapid ventricular response (Acute), Gallstone pancreatitis DC Disposition: Home Lace/Strata: 12/25 Called patient home number listed on the demographics. Patient answered and this CM introduced self and role. Patient states that his data warehouse specialist made all his f/u appointments today for the paying teller, PCP, and surgeon. States utilizing [facility] transport for appointments. His sister picked up his medications yesterday. States that he has a difficulty time seeing the medications and what to take d/t Macular Degeneration and states that his Niece was able to sort medications and assist him. States sees the Supervisor Patching tomorrow. This underwriter informed patient that he can ask his pharmacy to print larger print on the labels. States he is doing good but a little tired today d/t getting things done. Denies any issues/questions or concerns with ACI, medications or f/u. Thanked patient for receiving care here at [facility] and phone conversation ended. Afua San RNCM
== END 2019-02-03 12:11 | disposition home or self-care (01) | DRG 418 ==
PROVIDERS: Family Medicine; Admitting Provider Surgery; Family Provider Family Medicine Geriatric Medicine; PCP Family Medicine Geriatric Medicine; Referring Provider Surgery; Visit Provider Student in an Organized Health Care Education/Training Program
PROC: 0FT44ZZ Resection of Gallbladder, Percutaneous Endoscopic Approach (ICD-10-PCS; CPT 47610; principal; 2019-01-29 12:25)
DX: K85.10 Biliary acute pancreatitis without necrosis or infection (principal); I50.32 Chronic diastolic (congestive) heart failure; J98.11 Atelectasis; K80.20 Calculus of gallbladder without cholecystitis without obstruction; N28.1 Cyst of kidney, acquired; K57.30 Diverticulosis of large intestine without perforation or abscess without bleeding; K21.9 Gastro-esophageal reflux disease without esophagitis; J44.9 Chronic obstructive pulmonary disease, unspecified; I11.0 Hypertensive heart disease with heart failure; I48.0 Paroxysmal atrial fibrillation; I25.10 Atherosclerotic heart disease of native coronary artery without angina pectoris; D50.9 Iron deficiency anemia, unspecified; R09.02 Hypoxemia; R06.89 Other abnormalities of breathing; Z87.11 Personal history of peptic ulcer disease; Z87.891 Personal history of nicotine dependence; I95.2 Hypotension due to drugs; T50.905A Adverse effect of unspecified drugs, medicaments and biological substances, initial encounter
CPT/HCPCS: 36415; 71045; 80048; 80053; 83735; 83880; 84443; 84484; 85025; 85610; 85730; 88304; 93005; 93306; 94640; 94762; 97162; 97166; 97530; 97802; 97803; J7030; Q9957; A4216; J2405

== ENCOUNTER → 2019-02-06 15:25 | Outpatient (CLI) | payer MEDICARE, SELFPAY ==
[2019-02-04 09:28] VITALS: BMI 29.2
--- NOTE | 2019-02-06 15:35 | RAD_ITS ---
STUDY: X-RAY - ABDOMEN/PELVIS REASON FOR EXAM: Male, 73 years old. Difficulty having bowel movements pain and distention of the abdomen after gallbladder surgery last week. TECHNIQUE: AP supine and upright views of the abdomen and pelvis. COMPARISON: None. FINDINGS: Normal visualized lung bases. Nondistended stomach, small bowel and colon. Overall normal stool burden with gas present to the level of the rectum but not an abundance of bowel gas. There is no demonstrated free abdominal air. Negative for organomegaly. Numerous phleboliths of the pelvis. Normal visualized osseous structures. RAD/Abd Inc Decub and/or Erect IMPRESSION: No acute abdominal or pelvic findings. Negative for evidence of obstruction or an unusual stool burden. Negative for evidence of bowel perforation. Negative for gross organomegaly, abdominal or pelvic calcifications. Electronically Signed: Minna Manzanares MD at 21:43 EDT , Service support ,
== END ==
PROVIDERS: Family Provider Family Medicine Geriatric Medicine; PCP Family Medicine Geriatric Medicine; Referring Provider Family Medicine Geriatric Medicine; Visit Provider Family Medicine Geriatric Medicine
DX: K56.41 Fecal impaction (principal)
CPT/HCPCS: 74019

== ENCOUNTER → 2019-02-14 09:52 | Outpatient (CLI) | payer MEDICARE, SELFPAY ==
[2019-02-13 09:49] VITALS: BMI 29.8
[2019-02-14 12:53] LABS: Absolute Lymphocyte Count 2.72 X10^3/uL (0.83-4.51); Absolute Neutrophil Count 4.1 X10^3/uL (2.0-7.7); Basophil# 0.06 X10^3/uL; Basophil% 0.8 % (0-1); Eosinophil# 0.18 X10^3/uL; Eosinophils% 2.3 % (0-5); Hematocrit 44.7 % (40-54); Hemoglobin 14.6 g/dL (13.0-16.5); Lymphocyte # 2.72 X10^3/ul (4.0); Lymphocyte % 35.2 % (19-41); Mean Corp Hgb Conc 32.7 g/dL (32-36); Mean Corpuscular Hgb 30.8 pg (27.0-32.0); Mean Corpuscular Volume 94.3 fL (80-94); Mean Platelet Vol. 10.3 fl (6.2-12.0); Monocyte# 0.59 X10^3/uL; Monocyte% 7.6 % (0-10); NRBC Flagged by Analyzer 0 % (0-5); Neutrophil # 4.13 X10^3/uL (2.7-7.7); Neutrophil % 53.6 % (47-70); Platelet Count 383 K/mm3 (150-450); RBC Distribution Width CV 13.7 % (11.6-14.6); RBC Distribution Width SD 47.5 fl (35.1-43.9); Red Blood Count 4.74 M/mm3 (4.6-6.2); White Blood Count 7.7 K/mm3 (4.4-11.0)
[2019-02-14 13:34] LABS: AST(SGOT) 26 U/L (15-37); Alanine Aminotransfer ALT/SGPT 71 U/L (16-61); Albumin, Serum 3.9 g/dL (3.2-5.0); Alkaline Phosphatase 113 U/L (45-117); Anion Gap 9 (5-15); BUN 17 mg/dL (7-18); BUN/Creat Ratio 15.3 RATIO (10-20); Calcium,Total 8.9 mg/dL (8.5-10.1); Chloride 105 mmol/L (98-107); Creatinine, Serum 1.11 mg/dL (0.70-1.30); EST Glomerular Filtration Rate 69 mL/min (>60); Est Glom Filt Rate - Afr Amer 83 mL/min (>60); Globulin 3.8 g/dL (2.2-4.2); Glucose 88 mg/dL (74-106); Potassium 3.6 mmol/L (3.5-5.1); Protein, Total 7.7 g/dL (6.4-8.2); Sodium Level 141 mmol/L (136-145); Thyroid Stim Hormone (TSH) 1.83 uIU/mL (0.358-3.74)
[2019-02-14 13:40] LABS: Vitamin D,25 Hydroxy 23.9 ng/mL (29.95-100.01)
== END ==
PROVIDERS: Family Provider Family Medicine Geriatric Medicine; PCP Family Medicine Geriatric Medicine; Visit Provider Family Medicine Geriatric Medicine
DX: R53.83 Other fatigue (principal); E55.9 Vitamin D deficiency, unspecified
CPT/HCPCS: 36415; 80053; 82306; 84443; 85025

== ENCOUNTER → 2019-08-20 11:29 | Outpatient (CLI) | payer MEDICARE, SELFPAY ==
[2019-05-14 10:53] VITALS: BMI 30.8
[2019-08-20 12:29] LABS: Absolute Lymphocyte Count 3.08 X10^3/uL (0.83-4.51); Absolute Neutrophil Count 4.1 X10^3/uL (2.0-7.7); Basophil# 0.05 X10^3/uL; Basophil% 0.6 % (0-1); Eosinophil# 0.15 X10^3/uL; Eosinophils% 1.8 % (0-5); Hematocrit 47.4 % (40-54); Hemoglobin 15.5 g/dL (13.0-16.5); Lymphocyte # 3.08 X10^3/ul (4.0); Lymphocyte % 36.9 % (19-41); Mean Corp Hgb Conc 32.7 g/dL (32-36); Mean Corpuscular Hgb 30.3 pg (27.0-32.0); Mean Corpuscular Volume 92.8 fL (80-94); Mean Platelet Vol. 9.7 fl (6.2-12.0); Monocyte# 0.92 X10^3/uL; NRBC Flagged by Analyzer 0 % (0-5); Neutrophil # 4.11 X10^3/uL (2.7-7.7); Neutrophil % 49.2 % (47-70); Platelet Count 294 K/mm3 (150-450); RBC Distribution Width CV 13.9 % (11.6-14.6); RBC Distribution Width SD 47.3 fl (35.1-43.9); Red Blood Count 5.11 M/mm3 (4.6-6.2); White Blood Count 8.4 K/mm3 (4.4-11.0)
[2019-08-20 12:44] LABS: ALB/GLOB Ratio 1.2 RATIO (0.9-2.4); AST(SGOT) 25 U/L (15-37); Alanine Aminotransfer ALT/SGPT 42 U/L (16-61); Albumin, Serum 4.2 g/dL (3.2-5.0); Alkaline Phosphatase 116 U/L (45-117); Anion Gap 3 (5-15); BUN 12 mg/dL (7-18); BUN/Creat Ratio 11.8 RATIO (10-20); Calcium,Total 9.4 mg/dL (8.5-10.1); Chloride 104 mmol/L (98-107); Creatinine, Serum 1.02 mg/dL (0.70-1.30); EST Glomerular Filtration Rate 76 mL/min (>60); Est Glom Filt Rate - Afr Amer 92 mL/min (>60); Globulin 3.5 g/dL (2.2-4.2); Glucose 101 mg/dL (74-106); Potassium 3.8 mmol/L (3.5-5.1); Protein, Total 7.7 g/dL (6.4-8.2); Sodium Level 138 mmol/L (136-145); Thyroid Stim Hormone (TSH) 2.34 uIU/mL (0.358-3.74)
== END ==
PROVIDERS: PCP Family Medicine Geriatric Medicine; Referring Provider Family Medicine Geriatric Medicine; Visit Provider Family Medicine Geriatric Medicine
DX: R53.83 Other fatigue (principal)
CPT/HCPCS: 36415; 80053; 84443; 85025

== ENCOUNTER → 2020-02-18 10:23 | Outpatient (CLI) | payer MEDICARE, SELFPAY ==
[2019-11-19 10:54] VITALS: BMI 31.3
[2020-02-18 12:48] LABS: Absolute Lymphocyte Count 3.45 X10^3/uL (0.83-4.51); Absolute Neutrophil Count 4.2 X10^3/uL (2.0-7.7); Basophil# 0.05 X10^3/uL; Basophil% 0.6 % (0-1); Eosinophil# 0.09 X10^3/uL; Hematocrit 47.1 % (40-54); Hemoglobin 15.2 g/dL (13.0-16.5); Lymphocyte # 3.45 X10^3/ul (4.0); Lymphocyte % 38.9 % (19-41); Mean Corp Hgb Conc 32.3 g/dL (32-36); Mean Corpuscular Hgb 30.8 pg (27.0-32.0); Mean Corpuscular Volume 95.3 fL (80-94); Monocyte% 11.3 % (0-10); NRBC Flagged by Analyzer 0 % (0-5); Neutrophil # 4.22 X10^3/uL (2.7-7.7); Neutrophil % 47.6 % (47-70); Platelet Count 319 K/mm3 (150-450); RBC Distribution Width CV 13.7 % (11.6-14.6); RBC Distribution Width SD 48.2 fl (35.1-43.9); Red Blood Count 4.94 M/mm3 (4.6-6.2); White Blood Count 8.9 K/mm3 (4.4-11.0)
[2020-02-18 12:56] LABS: Vitamin D,25 Hydroxy 40.4 ng/mL
[2020-02-18 13:30] LABS: ALB/GLOB Ratio 1.1 RATIO (0.9-2.4); AST(SGOT) 22 U/L (15-37); Alanine Aminotransfer ALT/SGPT 47 U/L (16-61); Albumin, Serum 3.9 g/dL (3.2-5.0); Alkaline Phosphatase 108 U/L (45-117); Anion Gap 6 (5-15); BUN 16 mg/dL (7-18); BUN/Creat Ratio 13.2 RATIO (10-20); Calcium,Total 9.2 mg/dL (8.5-10.1); Chloride 104 mmol/L (98-107); Creatinine, Serum 1.21 mg/dL (0.70-1.30); EST Glomerular Filtration Rate 62 mL/min (>60); Est Glom Filt Rate - Afr Amer 75 mL/min (>60); Globulin 3.7 g/dL (2.2-4.2); Glucose 90 mg/dL (74-106); Potassium 4.4 mmol/L (3.5-5.1); Protein, Total 7.6 g/dL (6.4-8.2); Sodium Level 140 mmol/L (136-145); Thyroid Stim Hormone (TSH) 2.69 uIU/mL (0.358-3.74)
== END ==
PROVIDERS: PCP Family Medicine Geriatric Medicine; Visit Provider Family Medicine Geriatric Medicine
DX: E55.9 Vitamin D deficiency, unspecified (principal); R53.83 Other fatigue
CPT/HCPCS: 36415; 80053; 82306; 84443; 85025

== ENCOUNTER → 2020-08-20 10:29 | Outpatient (CLI) | payer MEDICARE, SELFPAY ==
[2020-07-14 11:08] VITALS: BMI 31.0
[2020-08-20 12:33] LABS: Absolute Lymphocyte Count 3.06 X10^3/uL (0.83-4.51); Absolute Neutrophil Count 4.8 X10^3/uL (2.0-7.7); Basophil# 0.05 X10^3/uL; Basophil% 0.6 % (0-1); Eosinophil# 0.07 X10^3/uL; Eosinophils% 0.8 % (0-5); Hematocrit 46.7 % (40-54); Hemoglobin 15.2 g/dL (13.0-16.5); Lymphocyte # 3.06 X10^3/ul (0.83-4.51); Lymphocyte % 34.7 % (19-41); Mean Corp Hgb Conc 32.5 g/dL (32-36); Mean Corpuscular Hgb 30.6 pg (27.0-32.0); Mean Corpuscular Volume 94.2 fL (80-94); Mean Platelet Vol. 10.1 fl (6.2-12.0); Monocyte# 0.78 X10^3/uL; Monocyte% 8.8 % (0-10); NRBC Flagged by Analyzer 0 % (0-5); Neutrophil # 4.82 X10^3/uL (2.7-7.7); Neutrophil % 54.5 % (47-70); Platelet Count 303 K/mm3 (150-450); Red Blood Count 4.96 M/mm3 (4.6-6.2); White Blood Count 8.8 K/mm3 (4.4-11.0)
[2020-08-20 12:44] LABS: Vitamin D,25 Hydroxy 38.3 ng/mL
[2020-08-20 12:58] LABS: BUN 13 mg/dL (7-18); Creatinine, Serum 1.14 mg/dL (0.70-1.30); Glucose 146 mg/dL (74-106)
[2020-08-20 12:59] LABS: ALB/GLOB Ratio 1.1 RATIO (0.9-2.4); AST(SGOT) 25 U/L (15-37); Alanine Aminotransfer ALT/SGPT 39 U/L (16-61); Alkaline Phosphatase 95 U/L (45-117); Anion Gap 5 (5-15); BUN/Creat Ratio 11.4 RATIO (10-20); Chloride 102 mmol/L (98-107); EST Glomerular Filtration Rate 67 mL/min (>60); Est Glom Filt Rate - Afr Amer 81 mL/min (>60); Globulin 3.5 g/dL (2.2-4.2); Potassium 4.2 mmol/L (3.5-5.1); Protein, Total 7.5 g/dL (6.4-8.2); Sodium Level 139 mmol/L (136-145); Thyroid Stim Hormone (TSH) 1.29 uIU/mL (0.358-3.74)
== END ==
PROVIDERS: PCP Family Medicine Geriatric Medicine; Visit Provider Family Medicine Geriatric Medicine
DX: E55.9 Vitamin D deficiency, unspecified (principal); R53.83 Other fatigue
CPT/HCPCS: 36415; 80053; 82306; 84443; 85025

== ENCOUNTER → 2021-02-25 11:07 | Outpatient (CLI) | payer MEDICARE, SELFPAY ==
[2021-02-25 12:35] LABS: Absolute Lymphocyte Count 3.17 X10^3/uL (0.83-4.51); Absolute Neutrophil Count 3.2 X10^3/uL (2.0-7.7); Basophil# 0.04 X10^3/uL; Basophil% 0.5 % (0-1); Eosinophil# 0.11 X10^3/uL; Eosinophils% 1.5 % (0-5); Hematocrit 46.3 % (40-54); Hemoglobin 15.5 g/dL (13.0-16.5); Lymphocyte # 3.17 X10^3/ul (0.83-4.51); Lymphocyte % 42.3 % (19-41); Mean Corp Hgb Conc 33.5 g/dL (32-36); Mean Corpuscular Volume 92.6 fL (80-94); Mean Platelet Vol. 9.8 fl (6.2-12.0); Monocyte# 0.92 X10^3/uL; Monocyte% 12.3 % (0-10); NRBC Flagged by Analyzer 0 % (0-5); Neutrophil # 3.23 X10^3/uL (2.7-7.7); Neutrophil % 43.1 % (47-70); Platelet Count 292 K/mm3 (150-450); RBC Distribution Width CV 14.6 % (11.6-14.6); RBC Distribution Width SD 49.7 fl (35.1-43.9); White Blood Count 7.5 K/mm3 (4.4-11.0)
[2021-02-25 12:53] LABS: AST(SGOT) 30 U/L (15-37); Alanine Aminotransfer ALT/SGPT 52 U/L (16-61); Albumin, Serum 3.9 g/dL (3.2-5.0); Alkaline Phosphatase 89 U/L (45-117); Anion Gap 10 (5-15); BUN 15 mg/dL (7-18); BUN/Creat Ratio 15.1 RATIO (10-20); Calcium,Total 9.2 mg/dL (8.5-10.1); Chloride 102 mmol/L (98-107); Creatinine, Serum 0.99 mg/dL (0.70-1.30); EST Glomerular Filtration Rate 78 mL/min (>60); Est Glom Filt Rate - Afr Amer 94 mL/min (>60); Glucose 107 mg/dL (74-106); Potassium 3.8 mmol/L (3.5-5.1); Protein, Total 7.9 g/dL (6.4-8.2); Sodium Level 137 mmol/L (136-145); Thyroid Stim Hormone (TSH) 1.75 uIU/mL (0.358-3.74)
[2021-02-25 12:57] LABS: Vitamin D,25 Hydroxy 41.7 ng/mL
== END ==
PROVIDERS: PCP Family Medicine Geriatric Medicine; Visit Provider Family Medicine Geriatric Medicine
DX: E55.9 Vitamin D deficiency, unspecified (principal); R53.83 Other fatigue
CPT/HCPCS: 36415; 80053; 82306; 84443; 85025

== ENCOUNTER → 2021-08-26 | Outpatient (CLI) | payer MEDICARE, MEDICAID, SELFPAY ==
[2021-08-26 12:34] LABS: Absolute Lymphocyte Count 2.97 X10^3/uL (0.83-4.51); Absolute Neutrophil Count 5.3 X10^3/uL (2.0-7.7); Basophil# 0.04 X10^3/uL; Basophil% 0.4 % (0-1); Eosinophil# 0.08 X10^3/uL; Eosinophils% 0.8 % (0-5); Hematocrit 46.4 % (40-54); Hemoglobin 15.3 g/dL (13.0-16.5); Lymphocyte # 2.97 X10^3/ul (0.83-4.51); Lymphocyte % 31.2 % (19-41); Mean Corpuscular Hgb 31.2 pg (27.0-32.0); Mean Corpuscular Volume 94.5 fL (80-94); Mean Platelet Vol. 9.8 fl (6.2-12.0); Monocyte# 1.04 X10^3/uL; Monocyte% 10.9 % (0-10); NRBC Flagged by Analyzer 0 % (0-5); Neutrophil # 5.31 X10^3/uL (2.7-7.7); Platelet Count 302 K/mm3 (150-450); RBC Distribution Width CV 14.6 % (11.6-14.6); RBC Distribution Width SD 51.1 fl (35.1-43.9); Red Blood Count 4.91 M/mm3 (4.6-6.2); White Blood Count 9.5 K/mm3 (4.4-11.0)
[2021-08-26 12:55] LABS: ALB/GLOB Ratio 1.1 RATIO (0.9-2.4); AST(SGOT) 29 U/L (15-37); Alanine Aminotransfer ALT/SGPT 52 U/L (16-61); Albumin, Serum 3.9 g/dL (3.2-5.0); Alkaline Phosphatase 93 U/L (45-117); Anion Gap 6 (5-15); BUN 12 mg/dL (7-18); BUN/Creat Ratio 9.8 RATIO (10-20); Calcium,Total 9.1 mg/dL (8.5-10.1); Chloride 103 mmol/L (98-107); Creatinine, Serum 1.22 mg/dL (0.70-1.30); EST Glomerular Filtration Rate 61 mL/min (>60); Est Glom Filt Rate - Afr Amer 74 mL/min (>60); Globulin 3.6 g/dL (2.2-4.2); Glucose 98 mg/dL (74-106); Potassium 4.4 mmol/L (3.5-5.1); Protein, Total 7.5 g/dL (6.4-8.2); Sodium Level 138 mmol/L (136-145); Thyroid Stim Hormone (TSH) 1.05 uIU/mL (0.358-3.74)
== END | disposition home or self-care (01) ==
LOC: POLAB3 11:19
PROVIDERS: PCP Family Medicine Geriatric Medicine; Visit Provider Family Medicine Geriatric Medicine
DX: E55.9 Vitamin D deficiency, unspecified (principal); R53.83 Other fatigue
CPT/HCPCS: 36415; 80053; 82306; 84443; 85025

== ENCOUNTER 2021-09-05 23:40 | Emergency (ER) | payer MEDICARE, MEDICAID, SELFPAY ==
[2021-09-05 23:41] VITALS: BP 141/79; PULSE 106; RESP 20; TEMP 36.5; O2SAT 95; BMI 33.9
--- NOTE | 2021-09-05 23:54 | CT_ITS ---
STUDY: CT BRAIN WITHOUT CONTRAST REASON FOR EXAM: Male, 76 years old. FACIAL DROOP RADIATION DOSAGE (If Supplied By Facility): CTDIvol = ( 44.99 ) mGy, DLP = ( 897.35 ) mGycm TECHNIQUE: Transaxial CT imaging of the brain was performed without administration of intravenous contrast material. Individualized dose optimization techniques were used for this CT. COMPARISON: No relevant priors. FINDINGS: Normal soft tissue structures. Normal calvarium. Normal size ventricles and extra-axial spaces for the patient''s age. Normal white matter tracts of the cerebral hemispheres. Normal basal ganglia and thalami. Normal brainstem. Normal cerebellum. There is no intracranial hemorrhage. There are no findings of an acute ischemic infarction. Normal visualized paranasal sinuses. There is a chronic lacunar infarct in the right white matter. CT/Brain/Head without Contrast IMPRESSION: Normal unenhanced CT scan of the brain. Electronically Signed: Sergo Murcia MD at 1:07 EDT ,
[2021-09-06 00:52] VITALS: BP 130/68; PULSE 105; RESP 26; O2SAT 96
[2021-09-06 01:00] VITALS: BP 110/68; PULSE 106; RESP 16; O2SAT 94
--- NOTE | 2021-09-06 01:00 | EX.ED.DYSGE1 ---
HPI History of Present Illness Chief Complaint: Head Injury Informant: patient Narrative Narrative: Patient states he rolled out of bed and hit his head. He does not think he lost consciousness at all. He said he did not pass out. This was not syncope. This was just rolling out. He has a little bit of a headache but not much. He is on blood thinners due to a history of atrial fibrillation. He takes Eliquis and has been taking it. Patient also states that he is due for a breathing treatment. His last breathing treatment was about 5:00. He is not having an exacerbation of his COPD. He just is due for breathing treatment and would like 1. He denies pain of his neck back pelvis or extremities. He has not been ill recently. He just rolled out of bed. [facility] Medical History (Updated 09/06/21 @ 03:[address] Jon Obrien MD) Abnormal EKG Acute exacerbation of chronic obstructive pulmonary disease (COPD) Acute respiratory insufficiency Atherosclerosis of coronary artery of [place] heart without angina pectoris Atrial fibrillation Atrial fibrillation with rapid ventricular response CHF (congestive heart failure) Chronic gastric ulcer COPD (chronic obstructive pulmonary disease) Essential hypertension GERD (gastroesophageal reflux disease) Hyperlipidemia Hypokalemia Metabolic alkalosis PAF (paroxysmal atrial fibrillation) Pancreatitis Paroxysmal SVT (supraventricular tachycardia) Prostate cancer Home Medications albuterol sulfate 2.5 mg INHALATION Q4H PRN PRN 01/25/19 [History Last Taken 01/25/19 01:00] fluticasone furoate-vilanterol 1 ea IH DAILY 01/25/19 [History Last Taken 01/24/19 18:00] pantoprazole 40 mg PO BID 01/25/19 [History Last Taken 01/24/19 18:00] potassium chloride 40 meq PO DAILY 01/25/19 [History Last Taken 01/24/19 06:00] pravastatin 40 mg PO QHS 01/25/19 [History Last Taken 01/24/19 18:00] vitamins A,C,C-xwnr-vlhcqz 1 ea PO BID 01/25/19 [History Last Taken 01/24/19 18:00] apixaban 5 mg PO BID #0 01/26/19 [Rx Last Taken 01/24/19 18:00] furosemide 40 mg PO BIDLX #0 01/26/19 [Rx Last Taken 01/24/19 18:00] cholecalciferol (vitamin D3) 25 mcg (1,000 unit) capsule 2,000 unit PO DAILY cap 05/14/19 [History Last Taken Unknown] metoprolol tartrate 50 mg tablet 50 mg PO BID #180 tab 04/20/21 [Rx Last Taken Unknown] Allergy/AdvReac Type Severity Reaction Status Date / Time No Known Allergies Allergy Verified 04/20/21 11:06 Family History Mother CVA (cerebral vascular accident) Father Dementia Surgical History History of breast lump/mass excision History of gastric surgery History of laparoscopic cholecystectomy (01/29/19) Social History Smoking Status: Former smoker how long ago did patient quit smokin years ago alcohol intake: former year quit: 2016 substance use type: does not use caffeine: Yes ROS ROS ED Constitutional Constitutional ED: Denies chills or fever(s) Eyes Eyes: Denies blurry vision or diplopia ENT ENT ED: Denies rhinorrhea Cardiovascular Cardiovascular: Denies chest pain Respiratory/Chest Respiratory/Chest: Reports dyspnea; Denies cough Gastrointestinal Gastrointestinal: Denies abdominal pain, nausea or vomiting Genitourinary Genitourinary ED: Denies hematuria Musculoskeletal Musculoskeletal: Denies arthralgias, back pain, myalgias or neck pain Integumentary Reports other Details: Laceration above left eye Neurologic Neurologic: Reports headache(s) Endocrine Endocrinology: Denies polydipsia or polyuria Allergic/Immunologic Allergic/Immunologic ED: Denies urticaria EXAM Physical Exam Const Vital Signs: 09/05/21 23:41 09/05/21 23:49 09/06/21 00:52 Temperature 97.7 F L Temperature Source Oral Pulse Rate 106 H 105 H Respiratory Rate 20 H 26 H Respiratory Effort Normal Non-Labored Respiratory Depth Normal Respiratory Pattern Normal Blood Pressure 141/79 H 130/68 H Blood Pressure Mean 99 88 Pulse Ox 95 96 Oxygen Delivery Method Room Air Room Air 09/06/21 01:00 09/06/21 01:15 Temperature Temperature Source Pulse Rate 106 H 108 H Respiratory Rate 16 26 H Respiratory Effort Respiratory Depth Respiratory Pattern Tachypnea Blood Pressure 110/68 Blood Pressure Mean 82 Pulse Ox 94 Oxygen Delivery Method Room Air Positive well nourished and well developed General Appearance ED: well developed and NAD HEENT Reports moist mucous membranes HEENT Narrative: Patient has a 2.5 cm laceration near the medial aspect of his left eyebrow. Bleeding is controlled with pressure. No significant swelling. The eye itself looks normal. No facial tenderness. No tenderness anywhere else on his head. No step-off. Eyes EOMs intact bilaterally Neck supple General: Negative for tenderness Resp normal respiratory effort Resp Narrative: Patient has a very faint expiratory wheeze. But his breathing is easy and unlabored and his saturations are normal. Cardio regular rate Rate: other Other Details: Rate is about 95 now GI normal to inspection, nondistended, normoactive bowel sounds and non-tender Palpation: soft Back/Spine no CVA tenderness Extremity normal to inspection General Extremety ED: Negative for tenderness Neuro oriented x3 Sensorium / Orientation: alert Psych mental status grossly normal Skin Skin Narrative: Laceration by left as above. MDM MDM MDM Narrative Medical decision making narrative: Patient CT shows no acute process. Patient is feeling well. He has no complaints. He would like to go home. We discussed reasons to return also. Procedure: Suture laceration: The area around the wound in the left upper eyebrow was cleansed. It was anesthetized with 1.5 cc of lidocaine with epinephrine locally. The area was cleaned. A little clot was removed from the wound. It was irrigated. No active bleeding. It was sutured with 5 interrupted 6-0 Ethilon with good cosmesis and hemostasis. Recommend keeping them in about 5 days. Radiography Diagnostic Testing: Clinical Impression(s) from Imaging Studies Brain CT 09/05/21 23:54 IMPRESSION: Normal unenhanced CT scan of the brain. Electronically Signed: Sergo Murcia MD at 1:07 EDT , Discharge Plan Triage Chief Complaint: Head Injury ED Provider: Jon Obrien Dx/Rx/DC Orders Clinical Impression: Accidental fall from bed, Closed head injury, Laceration of eyebrow, left, Coagulopathy Instructions: ED Head Injury (Adult), ED Laceration: All Closures Prescriptions: No Action metoprolol tartrate 50 mg tablet 50 mg PO BID Qty: 180 RF: 3 albuterol sulfate 2.5 MG/3 ML solution for nebulization 2.5 mg inhalation Q4H PRN PRN (Reason: Shortness Of Breath) RF: 0 pravastatin 40 MG tablet 40 mg PO QHS RF: 0 potassium chloride 20 MEQ tablet 40 meq PO DAILY RF: 0 pantoprazole 40 MG tablet 40 mg PO BID RF: 0 vitamins A,C,W-gspk-sbzovw 1 EACH capsule 1 ea PO BID RF: 0 fluticasone furoate-vilanterol 1 EACH blister with device 1 ea IH DAILY RF: 0 furosemide 40 MG tablet 40 mg PO BIDLX Qty: 0 RF: 0 apixaban 5 MG tablet 5 mg PO BID Qty: 0 RF: 0 cholecalciferol (vitamin D3) 25 mcg (1,000 unit) capsule 2,000 unit PO DAILY RF: 0 Primary Care Provider: Clifton Del Valle Chi Referrals: Clifton Del Valle Chi, MD [Primary Care Provider] - 3-5 Days suture removal Disposition Disposition: Home, Self Care
[2021-09-06] MEDS: Ipratropium/Albuterol Sulfate 3 ML AMPUL.NEB INHALATION (01:13)
[2021-09-06 01:15] VITALS: PULSE 108; RESP 26
[2021-09-06] MEDS: Lidocaine 1% /Epi 1:100 (20ml) 20 ML Vial INFILT (03:36)
[2021-09-06 03:39] VITALS: PULSE 76; RESP 18; O2SAT 98
== END 2021-09-06 03:39 | disposition home or self-care (01) ==
PROVIDERS: Emergency Provider Emergency Medicine; PCP Family Medicine Geriatric Medicine; Visit Provider Emergency Medicine
DX: S09.90XA Unspecified injury of head, initial encounter (principal); D68.9 Coagulation defect, unspecified; S01.112A Laceration without foreign body of left eyelid and periocular area, initial encounter; I25.10 Atherosclerotic heart disease of native coronary artery without angina pectoris; Z87.891 Personal history of nicotine dependence
CPT/HCPCS: 12011; 70450; 94640; 99285; A4216

== ENCOUNTER → 2021-09-09 | Outpatient (CLI) | payer MEDICARE, MEDICAID, SELFPAY ==
[2021-09-09 12:54] LABS: Anion Gap 7 (5-15); BUN 11 mg/dL (7-18); BUN/Creat Ratio 9.8 RATIO (10-20); Calcium,Total 9.4 mg/dL (8.5-10.1); Chloride 101 mmol/L (98-107); Creatinine, Serum 1.12 mg/dL (0.70-1.30); EST Glomerular Filtration Rate 68 mL/min (>60); Est Glom Filt Rate - Afr Amer 82 mL/min (>60); Glucose 97 mg/dL (74-106); Potassium 4.5 mmol/L (3.5-5.1); Sodium Level 137 mmol/L (136-145)
== END | disposition home or self-care (01) ==
LOC: POLAB3 12:06
PROVIDERS: PCP Family Medicine Geriatric Medicine; Visit Provider Family Medicine Geriatric Medicine
DX: N18.2 Chronic kidney disease, stage 2 (mild) (principal)
CPT/HCPCS: 36415; 80048

== ENCOUNTER → 2021-09-23 | Outpatient (CLI) | payer MEDICARE, MEDICAID, SELFPAY ==
[2021-09-23 12:40] LABS: Anion Gap 7 (5-15); BUN 11 mg/dL (7-18); BUN/Creat Ratio 10.6 RATIO (10-20); Calcium,Total 9.2 mg/dL (8.5-10.1); Chloride 104 mmol/L (98-107); Creatinine, Serum 1.04 mg/dL (0.70-1.30); EST Glomerular Filtration Rate 74 mL/min (>60); Est Glom Filt Rate - Afr Amer 89 mL/min (>60); Glucose 99 mg/dL (74-106); Potassium 4.2 mmol/L (3.5-5.1); Sodium Level 137 mmol/L (136-145)
== END | disposition home or self-care (01) ==
LOC: POLAB3 11:18
PROVIDERS: PCP Family Medicine Geriatric Medicine; Visit Provider Family Medicine Geriatric Medicine
DX: N17.9 Acute kidney failure, unspecified (principal)
CPT/HCPCS: 36415; 80048

== ENCOUNTER → 2021-10-07 | Outpatient (CLI) | payer MEDICARE, MEDICAID, SELFPAY ==
[2021-10-07 12:06] LABS: Anion Gap 7 (5-15); BUN 16 mg/dL (7-18); BUN/Creat Ratio 12.3 RATIO (10-20); Calcium,Total 9.2 mg/dL (8.5-10.1); Chloride 103 mmol/L (98-107); EST Glomerular Filtration Rate 57 mL/min (>60); Est Glom Filt Rate - Afr Amer 69 mL/min (>60); Glucose 95 mg/dL (74-106); Potassium 4.8 mmol/L (3.5-5.1); Sodium Level 137 mmol/L (136-145)
== END | disposition home or self-care (01) ==
LOC: POLAB3 10:53
PROVIDERS: PCP Family Medicine Geriatric Medicine; Visit Provider Family Medicine Geriatric Medicine
DX: N18.2 Chronic kidney disease, stage 2 (mild) (principal)
CPT/HCPCS: 36415; 80048

== ENCOUNTER → 2022-03-01 | Outpatient (CLI) | payer MEDICARE, MEDICAID, SELFPAY ==
[2022-03-01 12:54] LABS: Absolute Lymphocyte Count 2.39 X10^3/uL (0.83-4.51); Absolute Neutrophil Count 4.2 X10^3/uL (2.0-7.7); Basophil# 0.04 X10^3/uL; Basophil% 0.5 % (0-1); Eosinophil# 0.06 X10^3/uL; Eosinophils% 0.8 % (0-5); Hematocrit 47.6 % (40-54); Hemoglobin 16.1 g/dL (13.0-16.5); Lymphocyte # 2.39 X10^3/ul (0.83-4.51); Lymphocyte % 32.2 % (19-41); Mean Corp Hgb Conc 33.8 g/dL (32-36); Mean Corpuscular Hgb 32.7 pg (27.0-32.0); Mean Corpuscular Volume 96.7 fL (80-94); Monocyte# 0.76 X10^3/uL; Monocyte% 10.2 % (0-10); NRBC Flagged by Analyzer 0 % (0-5); Neutrophil # 4.15 X10^3/uL (2.7-7.7); Neutrophil % 55.9 % (47-70); Platelet Count 296 K/mm3 (150-450); RBC Distribution Width SD 50.2 fl (35.1-43.9); Red Blood Count 4.92 M/mm3 (4.6-6.2); White Blood Count 7.4 K/mm3 (4.4-11.0)
[2022-03-01 12:57] LABS: Vitamin D,25 Hydroxy 62.9 ng/mL
[2022-03-01 13:11] LABS: ALB/GLOB Ratio 1.2 RATIO (0.9-2.4); AST(SGOT) 21 U/L (15-37); Alanine Aminotransfer ALT/SGPT 42 U/L (16-61); Albumin, Serum 4.1 g/dL (3.2-5.0); Alkaline Phosphatase 79 U/L (45-117); Anion Gap 7 (5-15); BUN 14 mg/dL (7-18); BUN/Creat Ratio 14.4 RATIO (10-20); Calcium,Total 9.2 mg/dL (8.5-10.1); Chloride 108 mmol/L (98-107); Creatinine, Serum 0.97 mg/dL (0.70-1.30); EST Glomerular Filtration Rate 80 mL/min (>60); Est Glom Filt Rate - Afr Amer 96 mL/min (>60); Globulin 3.4 g/dL (2.2-4.2); Glucose 88 mg/dL (74-106); Protein, Total 7.5 g/dL (6.4-8.2); Sodium Level 138 mmol/L (136-145); Thyroid Stim Hormone (TSH) 1.81 uIU/mL (0.358-3.74)
== END | disposition home or self-care (01) ==
LOC: POLAB3 09:51
PROVIDERS: PCP Family Medicine Geriatric Medicine; Visit Provider Family Medicine Geriatric Medicine
DX: E55.9 Vitamin D deficiency, unspecified (principal); R53.83 Other fatigue
CPT/HCPCS: 36415; 80053; 82306; 84443; 85025

== ENCOUNTER → 2022-08-30 | Outpatient (CLI) | payer MEDICARE, MEDICAID, SELFPAY ==
[2022-08-30 12:55] LABS: Absolute Lymphocyte Count 2.46 X10^3/uL (0.83-4.51); Absolute Neutrophil Count 4.6 X10^3/uL (2.0-7.7); Basophil# 0.04 X10^3/uL; Basophil% 0.5 % (0-1); Eosinophil# 0.13 X10^3/uL; Eosinophils% 1.6 % (0-5); Hematocrit 47.3 % (40-54); Hemoglobin 15.6 g/dL (13.0-16.5); Lymphocyte # 2.46 X10^3/ul (0.83-4.51); Lymphocyte % 30.1 % (19-41); Mean Corpuscular Hgb 31.6 pg (27.0-32.0); Mean Corpuscular Volume 95.7 fL (80-94); Mean Platelet Vol. 9.5 fl (6.2-12.0); Monocyte# 0.84 X10^3/uL; Monocyte% 10.3 % (0-10); NRBC Flagged by Analyzer 0 % (0-5); Neutrophil # 4.63 X10^3/uL (2.7-7.7); Neutrophil % 56.8 % (47-70); Platelet Count 307 K/mm3 (150-450); RBC Distribution Width CV 13.9 % (11.6-14.6); RBC Distribution Width SD 49.3 fl (35.1-43.9); Red Blood Count 4.94 M/mm3 (4.6-6.2); White Blood Count 8.2 K/mm3 (4.4-11.0)
[2022-08-30 13:15] LABS: Vitamin D,25 Hydroxy 79.6 ng/mL
[2022-08-30 13:34] LABS: AST(SGOT) 20 U/L (15-37); Alanine Aminotransfer ALT/SGPT 31 U/L (16-61); Albumin, Serum 3.6 g/dL (3.2-5.0); Alkaline Phosphatase 84 U/L (45-117); Anion Gap 7 (5-15); BUN 11 mg/dL (7-18); BUN/Creat Ratio 10.8 RATIO (10-20); Calcium,Total 9.2 mg/dL (8.5-10.1); Chloride 107 mmol/L (98-107); Creatinine, Serum 1.02 mg/dL (0.70-1.30); EST Glomerular Filtration Rate 75 mL/min (>60); Est Glom Filt Rate - Afr Amer 91 mL/min (>60); Globulin 3.6 g/dL (2.2-4.2); Glucose 93 mg/dL (74-106); Potassium 4.1 mmol/L (3.5-5.1); Protein, Total 7.2 g/dL (6.4-8.2); Sodium Level 138 mmol/L (136-145); Thyroid Stim Hormone (TSH) 2.33 uIU/mL (0.358-3.74)
== END | disposition home or self-care (01) ==
LOC: POLAB3 10:25
PROVIDERS: PCP Family Medicine Geriatric Medicine; Visit Provider Family Medicine Geriatric Medicine
DX: R53.83 Other fatigue (principal); E55.9 Vitamin D deficiency, unspecified
CPT/HCPCS: 36415; 80053; 82306; 84443; 85025

== ENCOUNTER → 2023-02-28 | Outpatient (CLI) | payer MEDICARE, MEDICAID, SELFPAY ==
[2023-02-28 11:40] LABS: Absolute Lymphocyte Count 2.07 X10^3/uL (0.83-4.51); Absolute Neutrophil Count 5.1 X10^3/uL (2.0-7.7); Basophil# 0.05 X10^3/uL; Basophil% 0.6 % (0-1); Eosinophil# 0.07 X10^3/uL; Eosinophils% 0.9 % (0-5); Hematocrit 45.8 % (40-54); Hemoglobin 14.5 g/dL (13.0-16.5); Lymphocyte # 2.07 X10^3/ul (0.83-4.51); Lymphocyte % 25.4 % (19-41); Mean Corp Hgb Conc 31.7 g/dL (32-36); Mean Corpuscular Hgb 30.7 pg (27.0-32.0); Mean Corpuscular Volume 96.8 fL (80-94); Mean Platelet Vol. 9.5 fl (6.2-12.0); Monocyte# 0.82 X10^3/uL; Monocyte% 10.1 % (0-10); NRBC Flagged by Analyzer 0 % (0-5); Neutrophil # 5.09 X10^3/uL (2.7-7.7); Neutrophil % 62.5 % (47-70); Platelet Count 335 K/mm3 (150-450); RBC Distribution Width CV 15.2 % (11.6-14.6); RBC Distribution Width SD 54.6 fl (35.1-43.9); Red Blood Count 4.73 M/mm3 (4.6-6.2); White Blood Count 8.1 K/mm3 (4.4-11.0)
[2023-02-28 11:54] LABS: Vitamin D,25 Hydroxy 71.4 ng/mL
[2023-02-28 12:10] LABS: ALB/GLOB Ratio 1.2 RATIO (0.9-2.4); AST(SGOT) 17 U/L (15-37); Alanine Aminotransfer ALT/SGPT 36 U/L (16-61); Albumin, Serum 3.9 g/dL (3.2-5.0); Alkaline Phosphatase 96 U/L (45-117); Anion Gap 5 (5-15); BUN 18 mg/dL (7-18); BUN/Creat Ratio 16.8 RATIO (10-20); Calcium,Total 9.2 mg/dL (8.5-10.1); Chloride 104 mmol/L (98-107); Cholesterol 93 mg/dL (200); Creatinine, Serum 1.07 mg/dL (0.70-1.30); EST Glomerular Filtration Rate 71 mL/min (>60); Est Glom Filt Rate - Afr Amer 86 mL/min (>60); Globulin 3.3 g/dL (2.2-4.2); Glucose 104 mg/dL (74-106); High Density Lipoprotein 37 mg/dL; Potassium 4.5 mmol/L (3.5-5.1); Protein, Total 7.2 g/dL (6.4-8.2); Sodium Level 139 mmol/L (136-145); Thyroid Stim Hormone (TSH) 2.05 uIU/mL (0.358-3.74); Triglycerides 67 mg/dL; Very Low Density Lipoprotein 13 mg/dL (5-40)
== END | disposition home or self-care (01) ==
LOC: POLAB3 10:30
PROVIDERS: PCP Family Medicine Geriatric Medicine; Visit Provider Family Medicine Geriatric Medicine
DX: E55.9 Vitamin D deficiency, unspecified (principal); E78.5 Hyperlipidemia, unspecified; R53.83 Other fatigue
CPT/HCPCS: 36415; 80053; 80061; 82306; 84443; 85025

== ENCOUNTER → 2023-09-05 | Outpatient (CLI) | payer MEDICARE, MEDICAID, SELFPAY ==
[2023-09-05 12:36] LABS: Absolute Lymphocyte Count 2.75 X10^3/uL (0.83-4.51); Absolute Neutrophil Count 4.4 X10^3/uL (2.0-7.7); Basophil# 0.05 X10^3/uL; Basophil% 0.6 % (0-1); Eosinophils% 1.2 % (0-5); Hematocrit 49.4 % (40-54); Hemoglobin 15.9 g/dL (13.0-16.5); Lymphocyte # 2.75 X10^3/ul (0.83-4.51); Mean Corp Hgb Conc 32.2 g/dL (32-36); Mean Corpuscular Hgb 30.9 pg (27.0-32.0); Mean Corpuscular Volume 96.1 fL (80-94); Mean Platelet Vol. 9.4 fl (6.2-12.0); Monocyte# 1.03 X10^3/uL; Monocyte% 12.4 % (0-10); NRBC Flagged by Analyzer 0 % (0-5); Neutrophil # 4.35 X10^3/uL (2.7-7.7); Neutrophil % 52.2 % (47-70); Platelet Count 261 K/mm3 (150-450); RBC Distribution Width CV 14.7 % (11.6-14.6); RBC Distribution Width SD 52.7 fl (35.1-43.9); Red Blood Count 5.14 M/mm3 (4.6-6.2); White Blood Count 8.3 K/mm3 (4.4-11.0)
[2023-09-05 13:31] LABS: Vitamin D,25 Hydroxy 55.7 ng/mL
[2023-09-05 14:01] LABS: ALB/GLOB Ratio 1.1 RATIO (0.9-2.4); AST(SGOT) 18 U/L (15-37); Alanine Aminotransfer ALT/SGPT 34 U/L (16-61); Albumin, Serum 3.7 g/dL (3.2-5.0); Alkaline Phosphatase 81 U/L (45-117); Anion Gap 8 (5-15); BUN 13 mg/dL (7-18); BUN/Creat Ratio 13.4 RATIO (10-20); Calcium,Total 9.1 mg/dL (8.5-10.1); Chloride 107 mmol/L (98-107); Cholesterol 118 mg/dL (200); Creatinine, Serum 0.97 mg/dL (0.70-1.30); EST Glomerular Filtration Rate 79 mL/min (>60); Est Glom Filt Rate - Afr Amer 96 mL/min (>60); Globulin 3.4 g/dL (2.2-4.2); Glucose 97 mg/dL (74-106); High Density Lipoprotein 40 mg/dL; Potassium 4.4 mmol/L (3.5-5.1); Protein, Total 7.1 g/dL (6.4-8.2); Sodium Level 141 mmol/L (136-145); Thyroid Stim Hormone (TSH) 2.56 uIU/mL (0.358-3.74); Triglycerides 119 mg/dL; Very Low Density Lipoprotein 24 mg/dL (5-40)
== END | disposition home or self-care (01) ==
LOC: LAB 11:30
PROVIDERS: PCP Family Medicine Geriatric Medicine; Referring Provider Family Medicine Geriatric Medicine; Visit Provider Family Medicine Geriatric Medicine
DX: E78.5 Hyperlipidemia, unspecified (principal); E55.9 Vitamin D deficiency, unspecified; R53.83 Other fatigue
CPT/HCPCS: 36415; 80053; 80061; 82306; 84443; 85025

== ENCOUNTER → 2024-02-27 | Outpatient (CLI) | payer MEDICARE, MEDICAID, SELFPAY ==
[2024-02-27 11:10] LABS: Absolute Lymphocyte Count 2.19 X10^3/uL (0.83-4.51); Absolute Neutrophil Count 4.6 X10^3/uL (2.0-7.7); Basophil# 0.05 X10^3/uL; Basophil% 0.6 % (0-1); Eosinophil# 0.08 X10^3/uL; Hematocrit 48.6 % (40-54); Hemoglobin 16.3 g/dL (13.0-16.5); Lymphocyte # 2.19 X10^3/ul (0.83-4.51); Lymphocyte % 27.9 % (19-41); Mean Corp Hgb Conc 33.5 g/dL (32-36); Mean Corpuscular Hgb 32.4 pg (27.0-32.0); Mean Corpuscular Volume 96.6 fL (80-94); Monocyte# 0.85 X10^3/uL; Monocyte% 10.8 % (0-10); NRBC Flagged by Analyzer 0 % (0-5); Neutrophil # 4.64 X10^3/uL (2.7-7.7); Neutrophil % 59.2 % (47-70); Platelet Count 268 K/mm3 (150-450); RBC Distribution Width CV 14.1 % (11.6-14.6); RBC Distribution Width SD 50.2 fl (35.1-43.9); Red Blood Count 5.03 M/mm3 (4.6-6.2); White Blood Count 7.9 K/mm3 (4.4-11.0)
[2024-02-27 12:11] LABS: ALB/GLOB Ratio 1.1 RATIO (0.9-2.4); AST(SGOT) 33 U/L (15-37); Alanine Aminotransfer ALT/SGPT 49 U/L (16-61); Albumin, Serum 3.5 g/dL (3.2-5.0); Alkaline Phosphatase 75 U/L (45-117); Anion Gap 5 (5-15); BUN 13 mg/dL (7-18); BUN/Creat Ratio 11.8 RATIO (10-20); Calcium,Total 8.8 mg/dL (8.5-10.1); Chloride 106 mmol/L (98-107); Cholesterol 98 mg/dL (200); EST Glomerular Filtration Rate 69 mL/min (>60); Est Glom Filt Rate - Afr Amer 83 mL/min (>60); Globulin 3.3 g/dL (2.2-4.2); Glucose 118 mg/dL (74-106); High Density Lipoprotein 44 mg/dL; Potassium 4.6 mmol/L (3.5-5.1); Protein, Total 6.8 g/dL (6.4-8.2); Sodium Level 138 mmol/L (136-145); Triglycerides 96 mg/dL; Very Low Density Lipoprotein 19 mg/dL (5-40)
[2024-02-27 12:15] LABS: Vitamin D,25 Hydroxy 37.5 ng/mL
== END | disposition home or self-care (01) ==
LOC: POLAB3 10:48
PROVIDERS: PCP Family Medicine Geriatric Medicine; Visit Provider Family Medicine Geriatric Medicine
DX: E78.5 Hyperlipidemia, unspecified (principal); E55.9 Vitamin D deficiency, unspecified; R53.83 Other fatigue
CPT/HCPCS: 36415; 80053; 80061; 82306; 84443; 85025

== ENCOUNTER 2024-07-13 06:43 | Inpatient (IN) | payer MEDICARE, MEDICAID, SELFPAY ==
[2024-07-13] VITALS (35 sets, daily range): BP systolic 78–133; BP diastolic 47–83; PULSE 77–145; RESP 20–28; TEMP 36.7–37.1; O2SAT 87–98; BMI 32.6; BMI 31.6
--- NOTE | 2024-07-13 06:59 | EKG12_ITS ---
Test Reason : Blood Pressure : */* mmHG Vent. Rate : 172 BPM Atrial Rate : 178 BPM P-R Int : * ms QRS Dur : 72 ms QT Int : 236 ms P-R-T Axes : * 72 264 degrees QTcB Int : 399 ms Critical Test Result: High HR Atrial fibrillation ST & T wave abnormality, consider inferolateral ischemia Abnormal ECG Confirmed by MAURISIO KESSLER, EDGAR ([id number]), primer expeditor and drier DARYN KELLER ([id number]) on 07/15/2024 8:13:31 AM Referred By: RON Confirmed By: EDGAR FORDE MD
--- NOTE | 2024-07-13 07:01 | EX.ED.DYSGE1 ---
HPI History of Present Illness Chief Complaint: Shortness of Breath Narrative Narrative: 79-year-old male past medical history of atrial fibrillation, hypertension, on Eliquis presents with shortness of breath and generalized weakness that has had since 1:00 this morning, approximately 6 hours ago. He states yesterday everything was fine, and this morning he awoke, with shortness of breath. He is felt weak for the last 6 hours. He has history of diastolic CHF and is on a water pill, but he also takes diltiazem for rate control of his atrial fibrillation. He states that his leg swelling may have been worse over the last couple of days. No exacerbating or alleviating factors. He has had cold-like symptoms with chills and a cough as well. [facility] Medical History Diastolic CHF, chronic Atrial fibrillation Prostate cancer Chronic gastric ulcer Atherosclerosis of coronary artery of [place] heart without angina pectoris Essential hypertension PAF (paroxysmal atrial fibrillation) Atrial fibrillation with rapid ventricular response Pancreatitis Abnormal EKG Hypokalemia Metabolic alkalosis Hyperlipidemia Acute respiratory insufficiency Acute exacerbation of chronic obstructive pulmonary disease (COPD) COPD (chronic obstructive pulmonary disease) Paroxysmal SVT (supraventricular tachycardia) GERD (gastroesophageal reflux disease) CHF (congestive heart failure) Home Medications ?Medication ?Instructions ?Recorded ?Last Taken ?Type albuterol sulfate 2.5 mg/3 mL 2.5 mg inhalation Q4H PRN PRN 01/25/19 01/25/19 01:00 History (0.083 %) solution for nebulization Shortness Of Breath fluticasone furoate 100 1 ea IH DAILY breathing 01/25/19 01/24/19 18:00 History mcg-vilanterol 25 mcg/dose inhalation powder pantoprazole 40 mg tablet,delayed 40 mg PO BID stomach 01/25/19 01/24/19 18:00 History release potassium chloride 20 mEq 40 meq PO DAILY supplement 01/25/19 01/24/19 06:00 History tablet,extended release(part/cryst) pravastatin 40 mg tablet 40 mg PO QHS cholesterol 01/25/19 01/24/19 18:00 History vitamins A,C,F-metx-kkwvyo 4,296 1 ea PO BID supplement 01/25/19 01/24/19 18:00 History mcg-226 mg-90 mg capsule cholecalciferol (vitamin D3) 25 3,000 unit PO DAILY supplement 05/14/19 Unknown History mcg (1,000 unit) capsule metoprolol tartrate 50 mg tablet 50 mg PO BID #180 tabs 04/20/21 Unknown Rx diltiazem HCl 240 mg capsule,24 240 mg PO DAILY 05/10/22 Unknown History hr,extended release furosemide 40 mg tablet 40 mg PO DAILY water pill 05/10/22 Unknown History sacubitril 97 mg-valsartan 103 mg 1 tab PO BID 05/10/22 Unknown History tablet (Entresto) apixaban 5 mg tablet 5 mg PO BID afib 07/13/24 Unknown History Allergy/AdvReac Type Severity Reaction Status Date / Time No Known Allergies Allergy Verified 07/13/24 06:44 Family History Mother CVA (cerebral vascular accident) Father Dementia Surgical History History of laparoscopic cholecystectomy (01/29/19) History of gastric surgery History of breast lump/mass excision Social History Smoking Status: Former smoker how long ago did patient quit smokin years ago alcohol intake: former year quit: 2016 substance use type: does not use caffeine: Yes ROS ROS ED ROS Narrative Constitutional: No fever, positive chills. Generalized weakness. Cardiovascular: No chest pain. No palpitations. Positive pedal edema. Respiratory: Positive cough, positive shortness of breath. Abdominal: No abdominal pain. No nausea. No vomiting. Genitourinary: No dysuria. No hematuria. Musculoskeletal: No myalgias. No arthralgias. Neurologic: No headaches. No dizziness. No lightheadedness. Skin: No rash. No change in color. EXAM Physical Exam Narrative Exam Narrative: Afebrile. Vital signs noted. Nontoxic-appearing. Cardiovascular examination reveals an irregularly irregular tachycardia. Lungs are clear to auscultation bilaterally anteriorly. Abdomen is soft and nontender with positive bowel sounds. Positive bilateral pedal edema equal and symmetric with chronic skin changes. Neurological examination nonfocal and nonlateralizing. Const Vital Signs: 07/13/24 06:44 07/13/24 06:48 07/13/24 06:48 Temperature 98.6 F 98.6 F Temperature Source Oral Oral Pulse Rate 128 H 128 H Respiratory Rate 20 H 20 H Respiratory Effort Short of Breath Labored Respiratory Pattern Tachypnea Blood Pressure 133/83 H 133/83 H Blood Pressure Mean 99 99 Blood Pressure Source Blood Pressure Position Blood Pressure Location Pulse Ox 94 94 Oxygen Delivery Method Room Air Room Air Oxygen Flow Rate (L/min) 07/13/24 07:02 07/13/24 07:15 07/13/24 07:16 Temperature Temperature Source Pulse Rate 143 H Respiratory Rate 28 H Respiratory Effort Respiratory Pattern Blood Pressure 94/51 L Blood Pressure Mean 65 Blood Pressure Source Blood Pressure Position Blood Pressure Location Pulse Ox 92 87 90 Oxygen Delivery Method Room Air Room Air Nasal Cannula Oxygen Flow Rate (L/min) 1 07/13/24 07:25 07/13/24 07:48 07/13/24 08:00 Temperature 98.1 F 98.2 F Temperature Source Oral Oral Pulse Rate 136 H 138 H Respiratory Rate 28 H 28 H Respiratory Effort Short of Breath Labored Respiratory Pattern Tachypnea Blood Pressure 98/47 L 94/57 L Blood Pressure Mean 64 69 Blood Pressure Source Blood Pressure Position Blood Pressure Location Pulse Ox 93 92 Oxygen Delivery Method Nasal Cannula Nasal Cannula Oxygen Flow Rate (L/min) 1 1 07/13/24 09:00 07/13/24 09:22 07/13/24 09:40 Temperature 98.2 F 98.3 F Temperature Source Oral Pulse Rate 132 H 145 H 128 H Respiratory Rate 26 H 26 H 24 H Respiratory Effort Respiratory Pattern Blood Pressure 93/63 95/57 L 89/57 L Blood Pressure Mean 73 69 67 Blood Pressure Source Blood Pressure Position Blood Pressure Location Pulse Ox 95 93 95 Oxygen Delivery Method Nasal Cannula Oxygen Flow Rate (L/min) 1 07/13/24 10:05 07/13/24 10:06 Temperature 98.3 F 98.3 F Temperature Source Oral Oral Pulse Rate 125 H 125 H Respiratory Rate 24 H 24 H Respiratory Effort Respiratory Pattern Blood Pressure 95/59 L 95/59 L Blood Pressure Mean 71 71 Blood Pressure Source Monitor Blood Pressure Position Semi-Fowlers Blood Pressure Location Left Arm Pulse Ox 92 93 Oxygen Delivery Method Nasal Cannula Nasal Cannula Oxygen Flow Rate (L/min) 1 2 MDM MDM MDM Narrative Medical decision making narrative: Differential diagnosis includes but not limited to A-fib with RVR with CHF versus pneumonia versus bronchitis versus dehydration versus electrolyte imbalance including hyponatremia versus hypokalemia. EKG was obtained and interpreted by myself independently as atrial fibrillation at [address] changes. No STEMI. For rate control although he has a history of CHF, I reviewed his medication list and he does take diltiazem 240 mg and Eliquis as well. Patient experienced a dip in his pulse ox though he is placed on nasal cannula oxygen at 1 L and is now satting 93%. I reviewed his laboratory work and he has slight elevation of his white count to 13.4 with hemoglobin 16.9, hematocrit 49.2. Platelet count normal at 263. BMP is grossly unremarkable except for glucose of 122 with a normal anion gap of 13, BUN 14 with creatinine 1.10. Magnesium normal at 1.8, BNP slightly elevated at 940. Chest x-ray in 1 view interpreted by myself independently shows a right sided infiltrate/pneumonia. I reviewed the radiology report which confirms my independent interpretation. I reviewed his QTc on his EKG and it is normal at 399 ms. Blood culture will be drawn and he will be started on azithromycin and Rocephin. Regarding rate control, after diltiazem bolus he is still tachycardic in the 140s. I discussed the patient with Dr. Wolff for admission given his pneumonia and atrial fibrillation. He would like him given oral metoprolol succinate 50 mg. He will admit him to the PCU. However, even after oral medication, rate was not controlled. He was started on a diltiazem drip, and I had discussed the patient with Dr. Wolff again who would like him admitted to PCU stepdown. Disposition is admit in stable condition. History & Record Review Discussion w/independent historian: Patient Additional record(s) reviewed:: Prior labs Lab Data Attestation: I reviewed the patient's lab results. Labs: Laboratory Results - last 24 hr 07/13/24 06:54 WBC 13.4 H RBC 5.17 Hgb 16.9 H Hct 49.2 MCV 95.2 H MCH 32.7 H MCHC 34.3 RDW Std Deviation 49.3 H RDW Coeff of Yaneli 14.2 Plt Count 263 MPV 8.8 Immature Gran % (Auto) 0.400 Neut % (Auto) 89.1 H Lymph % (Auto) 4.8 L [place] % (Auto) 5.5 Eos % (Auto) 0.1 Baso % (Auto) 0.1 Absolute Neuts (auto) 12.0 H Absolute Lymphs (auto) 0.65 L Nucleated RBC % 0 Sodium 137 Potassium 4.6 Chloride 101 Carbon Dioxide 23.2 Anion Gap 13 BUN 14 Creatinine 1.10 Estim Creat Clear Calc 63.60 Est GFR (MDRD) Non-Af 68 BUN/Creatinine Ratio 12.7 Glucose 122 H Calcium 9.0 Magnesium 1.8 NT pro BNP II 940 Radiography Chest X-Ray - ED: 1 View, Read by ED Physician, Read by Radiologist and Right Infiltrate Diagnostic Testing: Clinical Impression(s) from Imaging Studies Chest X-Ray 07/13/24 07:15 IMPRESSION: Patchy multifocal airspace opacity mostly at the right mid to lower lung concerning for inflammatory/infectious process, correlate for pneumonia. Reading Location: [facility] Management Discussion w/another healthcare provider: Hospitalist (Dr. Wolff) Discharge Plan Dx/Rx/DC Orders Clinical Impression: Pneumonia, Atrial fibrillation with rapid ventricular response, Essential hypertension, COPD (chronic obstructive pulmonary disease), Hypoxia Disposition Disposition: Acute Care Hospital [facility] Discharge Date/Time: 07/13/24 09:56
[2024-07-13] MEDS: dilTIAZem 25 MG/5 ML Vial 20 MG IV BOLUS (07:05)
[2024-07-13 07:09] LABS: Absolute Lymphocyte Count 0.65 X10^3/uL (0.83-4.51); Basophil# 0.02 X10^3/uL; Basophil% 0.1 % (0-1); Eosinophil# 0.01 X10^3/uL; Eosinophils% 0.1 % (0-5); Hematocrit 49.2 % (40-54); Hemoglobin 16.9 g/dL (13.0-16.5); Lymphocyte # 0.65 X10^3/ul (0.83-4.51); Lymphocyte % 4.8 % (19-41); Mean Corp Hgb Conc 34.3 g/dL (32-36); Mean Corpuscular Hgb 32.7 pg (27.0-32.0); Mean Corpuscular Volume 95.2 fL (80-94); Mean Platelet Vol. 8.8 fl (6.2-12.0); Monocyte# 0.74 X10^3/uL; Monocyte% 5.5 % (0-10); NRBC Flagged by Analyzer 0 % (0-5); Neutrophil # 11.97 X10^3/uL (2.7-7.7); Neutrophil % 89.1 % (47-70); Platelet Count 263 K/mm3 (150-450); RBC Distribution Width CV 14.2 % (11.6-14.6); RBC Distribution Width SD 49.3 fl (35.1-43.9); Red Blood Count 5.17 M/mm3 (4.6-6.2); White Blood Count 13.4 K/mm3 (4.4-11.0)
--- NOTE | 2024-07-13 07:15 | RAD_ITS ---
PROCEDURE: CHEST 1 VIEW (PORTABLE) 07/13/2024 REASON FOR EXAM: SHORTNESS OF BREATH TECHNIQUE: Frontal view of the chest. 2 images to include the entire chest COMPARISON: 01/30/2019 FINDINGS: Patchy multifocal airspace opacity mostly at the right mid to lower lung. The left lung is clear. No evidence of pleural effusion. The cardiac silhouette is at the upper limits for size. RAD/Chest 1 View (Portable) IMPRESSION: Patchy multifocal airspace opacity mostly at the right mid to lower lung concer rachell for inflammatory/infectious process, correlate for pneumonia. Reading Location: [id number]
[2024-07-13 07:37] LABS: Anion Gap 13 (5-15); BUN 14 mg/dL (4-19); BUN/Creat Ratio 12.7 RATIO (10-20); Carbon Dioxide 23.2 mmol/L (21.0-32.0); Chloride 101 mmol/L (98-108); EST Glomerular Filtration Rate 68 (>60); Glucose 122 mg/dL (70-99); Potassium 4.6 mmol/L (3.3-5.1); Sodium Level 137 mmol/L (133-145)
[2024-07-13 07:54] LABS: Magnesium 1.8 mg/dL (1.5-2.2); Pro- Brain NATRIURETIC PEPTIDE 940 pg/mL (<=1800)
[2024-07-13] MEDS: Metoprolol(XL)Succ 50 MG Tablet PO ×2 (08:08→12:01)
[2024-07-13] MEDS: Ceftriaxone 2 GM in 0.9% Normal Saline (50mL MB+) 50 ML IV (08:08)
[2024-07-13] MEDS: Azithromycin 500 MG in Dextrose 5%-Water (250mL Bag) 250 ML 255 MG IV (08:23)
--- NOTE | 2024-07-13 08:37 | ECHOD_ITS ---
Reason For Study Reason For Study: A. fib Procedure This was a 2D Doppler, Color Flow transthoracic echocardiogram. Exam performed portable in patient room. Left Ventricle Normal LV size. Left ventricular systolic function is normal. The left ventricular ejection fraction is 55 %. No regional wall motion abnormalities noted. Right Ventricle Normal RV size. Normal systolic function. Atria The left atrium is mildly enlarged. Normal right atrium. Mitral Valve Normal mitral valve. Tricuspid Valve Normal tricuspid valve. Mild (1+) tricuspid valve insufficiency. Pulmonary artery systolic pressure is 26 mmHg. Aortic Valve Trisinus/trileaflet aortic valve. Great Vessels Normal sized aortic root. Pericardium/Pleural No pericardial effusion. MMode/2D Measurements & Calculations LVIDd: 4.0 cm IVSd: 1.3 cm Ao root diam: 3.2 cm LVIDs: 3.4 cm LVPWd: 1.1 cm RVDd: 4.0 cm FS: 14.7 % LAV(MOD-bp): 44.7 ml LVAd ap4: 16.7 cm2 LVAd ap2: 22.4 cm2 LAV(MOD-bp) Indexed: 20.7 ml/m2 LVLd ap4: 6.3 cm LVLd ap2: 6.4 cm LAV(MOD-sp2): 24.9 ml EDV(MOD-sp4): 38.3 ml EDV(MOD-sp2): 66.2 ml LAV(MOD-sp4): 63.0 ml EDV(sp4-el): 37.7 ml EDV(sp2-el): 66.8 ml LVAs ap4: 9.8 cm2 LVAs ap2: 13.8 cm2 LVLs ap4: 5.8 cm LVLs ap2: 6.4 cm ESV(MOD-sp4): 15.4 ml ESV(MOD-sp2): 26.8 ml ESV(sp4-el): 13.8 ml ESV(sp2-el): 25.3 ml EF(MOD-sp4): 59.7 % EF(MOD-sp2): 59.6 % EF(sp4-el): 63.3 % SV(MOD-sp4): 22.9 ml SV(MOD-sp2): 39.5 ml SV(sp4-el): 23.9 ml SI(MOD-sp4): 10.6 ml/m2 SI(MOD-sp2): 18.3 ml/m2 LA A4 area: 23.3 cm2 LA dimension(2D): 2.9 cm RA A4 area: 18.8 cm2 Doppler Measurements & Calculations MV E max oneyda: 69.6 cm/sec Ao V2 max: 133.6 cm/sec LV V1 max: 89.0 cm/sec Ao max P.1 mmHg LV V1 max P.2 mmHg PA V2 max: 71.3 cm/sec TR max oneyda: 244.0 cm/sec TR max P.8 mmHg ECHO/Echo Complete Interpretation Summary Normal LV size. Left ventricular systolic function is normal. The left ventricular ejection fraction is 55 %. The left atrium is mildly enlarged. Ordering Physician: Bertin Wolff Referring Physician: Clifton Del Valle Chi Performed By: Trisha Chen RDCS
[2024-07-13] MEDS: Diltiazem 125 MG in Dextrose 5%-Water (100mL Bag) 100 ML IV (09:22)
--- NOTE | 2024-07-13 10:00 | ED.RN ---
Cardidariom drip hand off done with floor RN at bedside.
--- NOTE | 2024-07-13 10:19 | PCM.HP.STD ---
HPI - General General Date of Admission: 07/13/24 Date of Service: 07/13/24 Chief Complaint: Chills, shortness of breath HPI Narrative CRISTINA JEFFREY, is a 79 M who presents to the emergency room at [facility] with complaints of chills and shortness of breath which started this morning. Patient states he is felt hot at home but denies actual fever. Examination in the emergency room revealed the patient to be tachycardic and atrial fibrillation with a rate of approximately 135, labs obtained showed an elevated white blood cell count of 13.4 and hemoglobin was 16.9. Patient's chemistry panel was unremarkable, urinalysis was unremarkable. Chest x-ray showed a right lung infiltrate indicative of pneumonia. Patient required oxygen at 2 L/min. Patient was placed on a Cardizem drip and given oral metoprolol, he will be placed in stepdown on PCU, IV Rocephin and Zithromax was given. [facility] Medical History Diastolic CHF, chronic Atrial fibrillation Prostate cancer Chronic gastric ulcer Atherosclerosis of coronary artery of [place] heart without angina pectoris Essential hypertension PAF (paroxysmal atrial fibrillation) Atrial fibrillation with rapid ventricular response Pancreatitis Abnormal EKG Hypokalemia Metabolic alkalosis Hyperlipidemia Acute respiratory insufficiency Acute exacerbation of chronic obstructive pulmonary disease (COPD) COPD (chronic obstructive pulmonary disease) Paroxysmal SVT (supraventricular tachycardia) GERD (gastroesophageal reflux disease) CHF (congestive heart failure) Home Medications ?Medication ?Instructions ?Recorded ?Last Taken ?Type albuterol sulfate 2.5 mg/3 mL 2.5 mg inhalation Q4H PRN PRN 01/25/19 01/25/19 01:00 History (0.083 %) solution for nebulization Shortness Of Breath fluticasone furoate 100 1 ea IH DAILY breathing 01/25/19 01/24/19 18:00 History mcg-vilanterol 25 mcg/dose inhalation powder pantoprazole 40 mg tablet,delayed 40 mg PO BID stomach 01/25/19 01/24/19 18:00 History release potassium chloride 20 mEq 40 meq PO DAILY supplement 01/25/19 01/24/19 06:00 History tablet,extended release(part/cryst) pravastatin 40 mg tablet 40 mg PO QHS cholesterol 01/25/19 01/24/19 18:00 History vitamins A,C,D-pffd-oooass 4,296 1 ea PO BID supplement 01/25/19 01/24/19 18:00 History mcg-226 mg-90 mg capsule apixaban 5 mg tablet 5 mg PO BID afib ##0 01/26/19 01/24/19 18:00 Rx cholecalciferol (vitamin D3) 25 2,000 unit PO DAILY supplement 05/14/19 Unknown History mcg (1,000 unit) capsule metoprolol tartrate 50 mg tablet 50 mg PO BID #180 tabs 04/20/21 Unknown Rx diltiazem HCl 240 mg capsule,24 240 mg PO DAILY 05/10/22 Unknown History hr,extended release furosemide 40 mg tablet 40 mg PO DAILY water pill 05/10/22 Unknown History sacubitril 97 mg-valsartan 103 mg 1 tab PO BID 05/10/22 Unknown History tablet (Entresto) Allergy/AdvReac Type Severity Reaction Status Date / Time No Known Allergies Allergy Verified 07/13/24 06:44 Family History Mother CVA (cerebral vascular accident) Father Dementia Surgical History History of laparoscopic cholecystectomy (01/29/19) History of gastric surgery History of breast lump/mass excision Social History Smoking Status: Former smoker how long ago did patient quit smokin years ago alcohol intake: former year quit: 2016 substance use type: does not use caffeine: Yes ROS Constitutional Constitutional: Reports chills, fatigue and malaise; Denies anorexia, change in weight, fever(s), night sweats or weakness Eyes Eyes: Denies blurry vision, change in vision, discharge from eye(s) or eye pain Cardiovascular Cardiovascular: Denies chest pain, claudication, edema or palpitations Respiratory/Chest Respiratory/Chest: Reports dyspnea, shortness of breath at rest and shortness of breath with exertion; Denies cough or hemoptysis Gastrointestinal Gastrointestinal: Denies abdominal pain, constipation, diarrhea, hematemesis, hematochezia, melena, nausea or vomiting Genitourinary Genitourinary: Denies dysuria, hematuria, urinary frequency, urinary hesitancy, urinary incontinence or urinary urgency Musculoskeletal Musculoskeletal: Denies back pain, joint pain, joint stiffness, joint swelling, myalgias or neck pain Neurologic Neurologic: Denies abnormal gait, abnormal speech, dizziness, focal weakness, headache(s), loss of vision, numbness, other visual disturbances, paresthesias, syncope or tingling Psychiatric Psychiatric: Denies anxiety, cognitive impairment, depression, irritability, mood swings or suicidal ideation Endocrine Endocrinology: Denies change in body appearance, cold intolerance, excessive sweating, heat intolerance, polydipsia or polyuria Hematologic/Lymphatic Hematologic/Lymphatic: Denies none, anemia, easy bleeding, easy bruising or lymphadenopathy Allergic/Immunologic Allergic/Immunologic: Denies rhinitis, urticaria, eczemia or asthma Vital Signs Vital Signs Vital Signs: 07/13/24 06:44 07/13/24 06:48 07/13/24 06:48 Temperature 98.6 F 98.6 F Temperature Source Oral Oral Pulse Rate 128 H 128 H Respiratory Rate 20 H 20 H Respiratory Effort Short of Breath Labored Respiratory Pattern Tachypnea Blood Pressure 133/83 H 133/83 H Blood Pressure Mean 99 99 Pulse Ox 94 94 Oxygen Delivery Method Room Air Room Air Oxygen Flow Rate (L/min) 07/13/24 07:02 07/13/24 07:15 07/13/24 07:16 Temperature Temperature Source Pulse Rate 143 H Respiratory Rate 28 H Respiratory Effort Respiratory Pattern Blood Pressure 94/51 L Blood Pressure Mean 65 Pulse Ox 92 87 90 Oxygen Delivery Method Room Air Room Air Nasal Cannula Oxygen Flow Rate (L/min) 1 07/13/24 07:25 07/13/24 07:48 07/13/24 08:00 Temperature 98.1 F 98.2 F Temperature Source Oral Oral Pulse Rate 136 H 138 H Respiratory Rate 28 H 28 H Respiratory Effort Short of Breath Labored Respiratory Pattern Tachypnea Blood Pressure 98/47 L 94/57 L Blood Pressure Mean 64 69 Pulse Ox 93 92 Oxygen Delivery Method Nasal Cannula Nasal Cannula Oxygen Flow Rate (L/min) 1 1 07/13/24 09:00 07/13/24 09:22 07/13/24 09:40 Temperature 98.2 F 98.3 F Temperature Source Oral Pulse Rate 132 H 145 H 128 H Respiratory Rate 26 H 26 H 24 H Respiratory Effort Respiratory Pattern Blood Pressure 93/63 95/57 L 89/57 L Blood Pressure Mean 73 69 67 Pulse Ox 95 93 95 Oxygen Delivery Method Nasal Cannula Oxygen Flow Rate (L/min) 1 07/13/24 10:06 Temperature 98.3 F Temperature Source Oral Pulse Rate 125 H Respiratory Rate 24 H Respiratory Effort Respiratory Pattern Blood Pressure 95/59 L Blood Pressure Mean 71 Pulse Ox 93 Oxygen Delivery Method Nasal Cannula Oxygen Flow Rate (L/min) 2 Weight Weight: 97 kg Body Mass Index (BMI) 31.6 Physical Exam Const alert, oriented x3 and no apparent distress General Appearance: cooperative, well kempt and well developed Orientation / Consciousness: awake, oriented to person, oriented to place and oriented to time HEENT normocephalic, head/scalp atraumatic, hearing grossly normal bilaterally and moist oral mucous membranes Eyes PERRL, EOMs intact bilaterally and conjunctivae normal Neck supple, no JVD, thyroid normal and no carotid bruits General: trachea midline Resp normal respiratory effort, no retractions and no use of accessory muscles Resp Narrative: Inspiratory rales are noted over the right lower lung field Auscultation: Negative for rales, rhonchi or wheezes Cardio S1 normal heart sound, S2 normal heart sound, no murmurs, no rub and no gallops Cardio Narrative: Heart rate and rhythm is irregular and tachycardic GI normal to inspection, nondistended, normoactive bowel sounds, soft to palpation, non-tender and non-distended Extremity no clubbing, cyanosis or edema Skin no rashes or lesions noted General Skin Exam: no breakdown Neuro oriented x3, CN's II-XII intact bilaterally, no focal motor deficits and no sensory deficits noted Sensorium / Orientation: awake and alert Speech: speech normal Psych affect normal Results Lab / Micro Data 07/13/24 06:54 07/13/24 06:54 Labs: Laboratory Results - last 24 hr 07/13/24 06:54: WBC 13.4 H, RBC 5.17, Hgb 16.9 H, Hct 49.2, MCV 95.2 H, MCH 32.7 H, MCHC 34.3, RDW Std Deviation 49.3 H, RDW Coeff of Yaneli 14.2, Plt Count 263, MPV 8.8, Immature Gran % (Auto) 0.400, Neut % (Auto) 89.1 H, Lymph % (Auto) 4.8 L, [place] % (Auto) 5.5, Eos % (Auto) 0.1, Baso % (Auto) 0.1, Absolute Neuts (auto) 12.0 H, Absolute Lymphs (auto) 0.65 L, Nucleated RBC % 0, Sodium 137, Potassium 4.6, Chloride 101, Carbon Dioxide 23.2, Anion Gap 13, BUN 14, Creatinine 1.10, Estim Creat Clear Calc 63.60, Est GFR (MDRD) Non-Af 68, BUN/Creatinine Ratio 12.7, Glucose 122 H, Calcium 9.0, Magnesium 1.8, NT pro BNP II 940 Imaging Radiology Impression Chest X-Ray 07/13/24 07:15 IMPRESSION: Patchy multifocal airspace opacity mostly at the right mid to lower lung concerning for inflammatory/infectious process, correlate for pneumonia. Reading Location: [facility] Assessment & Plan Assessment/Plan (1) Pneumonia: PLAN: Plan 1. Community-acquired pneumonia-patient will be admitted to PCU, IV Rocephin and Zithromax will be continued, patient will be on aerosol treatments, chest x-ray will be repeated tomorrow, CBC will be repeated tomorrow. #2 chronic atrial fibrillation-now with RVR-patient is on a Cardizem drip presently, I have elected to increase the patient's metoprolol, patient will be monitored, echocardiogram will be obtained, patient is on Eliquis #3 chronic diastolic CHF-patient is on Entresto, metoprolol, diltiazem, and a diuretic #4 coronary artery disease-this appears stable at this time, patient will remain on his home medications #5 essential hypertension-patient will remain on his home medications, I have elected to increase his metoprolol due to his tachycardia. #6 hypoxia secondary to #1-patient is on low-flow nasal cannula oxygen, pulse ox will be monitored and oxygen will be adjusted as needed Total clinical time spent by myself addressing the patient's medical issues, reviewing all of his data, and collaborating with patient's care team: 75 minutes Charges/Coding Visit Charges Inpatient E&M: 75207 Init Hosp L3
[2024-07-13] MEDS: APIXABAN 5 MG TABLET PO ×2 (11:55→22:32)
[2024-07-13] MEDS: Pantoprazole Sodium 40 MG Tablet PO ×2 (11:55→20:54)
[2024-07-13] MEDS: Potassium Chloride Oral Tablet 20 MEQ 40 MEQ PO (11:56)
[2024-07-13] MEDS: Furosemide 40 MG Tablet PO (11:56)
[2024-07-13] MEDS: SACUBITRIL/VALSARTAN 97-103 MG TABLET 1 EACH PO (11:56)
[2024-07-13] MEDS: 0.9% Normal Saline (1000mL) 1,000 ML 500 ML IV (14:18)
[2024-07-13] MEDS: Budesonide Respules 0.5 MG/2 ML AMPUL.NEB. INHALATION (19:32)
[2024-07-13] MEDS: Ipratropium/Albuterol Sulfate 3 ML AMPUL.NEB INHALATION (19:32)
[2024-07-13] MEDS: Pravastatin 40 MG Tablet PO (20:54)
[2024-07-14] VITALS (24 sets, daily range): BP systolic 87–125; BP diastolic 52–80; PULSE 85–140; RESP 16–26; TEMP 36.3–37.4; O2SAT 92–100
[2024-07-14] MEDS: Diltiazem 125 MG in Dextrose 5%-Water (100mL Bag) 100 ML IV (05:14)
--- NOTE | 2024-07-14 05:45 | RAD_ITS ---
PROCEDURE: CHEST 1 VIEW (PORTABLE) 07/14/2024 REASON FOR EXAM: PNEUMONIA TECHNIQUE: Frontal view of the chest. COMPARISON: Chest x-ray 07/13/2024. RAD/Chest 1 View (Portable) IMPRESSION: Prominent right upper lobe infiltrate is again seen, perhaps slightly diminishe d since the prior study. This is concerning for the presence of pneumonitis. No new or worsened pneumonic process is seen. No evidence of pulmonary edema. No pleural effusion or pneumothorax is seen. The cardiomediastinal silhouette is stable. Reading Location: [id number]
[2024-07-14 06:33] LABS: Anion Gap 11 (5-15); BUN 14 mg/dL (4-19); BUN/Creat Ratio 15.6 RATIO (10-20); Calcium,Total 8.5 mg/dL (7.6-11.0); Carbon Dioxide 20.5 mmol/L (21.0-32.0); Chloride 106 mmol/L (98-108); Creatinine, Serum 0.92 mg/dL (0.70-1.20); EST Glomerular Filtration Rate 85 (>60); Estimated Creatinine Clearance 74.79 ml/min (50-250); Glucose 111 mg/dL (70-99); Sodium Level 138 mmol/L (133-145)
[2024-07-14] MEDS: Budesonide Respules 0.5 MG/2 ML AMPUL.NEB. INHALATION ×2 (06:55→19:45)
[2024-07-14] MEDS: Ipratropium/Albuterol Sulfate 3 ML AMPUL.NEB INHALATION ×3 (06:55→19:45)
[2024-07-14 07:57] LABS: Absolute Lymphocyte Count 1.37 X10^3/uL (0.83-4.51); Absolute Neutrophil Count 11.9 X10^3/uL (2.0-7.7); Basophil# 0.03 X10^3/uL; Basophil% 0.2 % (0-1); Eosinophil# 0.04 X10^3/uL; Eosinophils% 0.3 % (0-5); Hematocrit 41.5 % (40-54); Hemoglobin 14.2 g/dL (13.0-16.5); Lymphocyte # 1.37 X10^3/ul (0.83-4.51); Lymphocyte % 9.4 % (19-41); Mean Corp Hgb Conc 34.2 g/dL (32-36); Mean Corpuscular Hgb 32.6 pg (27.0-32.0); Mean Corpuscular Volume 95.4 fL (80-94); Mean Platelet Vol. 9.7 fl (6.2-12.0); Monocyte# 1.18 X10^3/uL; Monocyte% 8.1 % (0-10); NRBC Flagged by Analyzer 0 % (0-5); Neutrophil # 11.87 X10^3/uL (2.7-7.7); Neutrophil % 81.7 % (47-70); Platelet Count 238 K/mm3 (150-450); RBC Distribution Width CV 14.8 % (11.6-14.6); RBC Distribution Width SD 52.5 fl (35.1-43.9); Red Blood Count 4.35 M/mm3 (4.6-6.2); White Blood Count 14.5 K/mm3 (4.4-11.0)
[2024-07-14] MEDS: 0.9% Saline Lock 10 ML Syringe IV ×4 (09:03→21:29)
[2024-07-14] MEDS: Potassium Chloride Oral Tablet 20 MEQ 40 MEQ PO (09:03)
[2024-07-14] MEDS: Pantoprazole Sodium 40 MG Tablet PO ×2 (09:05→20:22)
[2024-07-14] MEDS: Ceftriaxone 1 GM/50 ML BAG IV (09:05)
[2024-07-14] MEDS: APIXABAN 5 MG TABLET PO ×2 (09:06→20:22)
[2024-07-14] MEDS: Azithromycin 500 MG in 0.9% Normal Saline (250mL Bag) 250 ML 255 MG IV (09:46)
[2024-07-14] MEDS: 0.9% Normal Saline (100mL Bag) 100 ML 15 ML IV (09:50)
[2024-07-14] MEDS: Metoprolol(XL)Succ 100 MG Tablet PO (10:35)
[2024-07-14] MEDS: SACUBITRIL/VALSARTAN 97-103 MG TABLET 1 EACH PO ×2 (10:35→20:22)
[2024-07-14] MEDS: Multivitamin (Healthy Eyes) Capsule 1 CAP PO ×2 (10:41→20:22)
--- NOTE | 2024-07-14 11:31 | PCM.PN.HOSP ---
Reason for Visit Reason for Visit: Diagnoses Pneumonia, unspecified organism (07/13/24) Subjective Subjective Patient was seen and examined today, he remains in atrial fibrillation with a rate between 101 and 110. I have made the decision to stop the patient Lasix for now due to his low blood pressure. Patient's chest x-ray today looked improved as compared with yesterday's chest x-ray. Patient's white blood cell count today was 14.5. Objective Data Objective Data Vital Signs: Vital Signs Temp Pulse Resp BP Pulse Ox O2 Del Method O2 Flow Rate 98.3 F 109 H 19 H 105/62 98 Nasal Cannula 2 07/14/24 08:00 07/14/24 10:35 07/14/24 10:00 07/14/24 10:00 07/14/24 10:00 07/14/24 10:00 07/14/24 10:00 Oxygen Flow Rate (L/min) 2 Oxygen Delivery Method Nasal Cannula Weight: 97 kg Body Mass Index (BMI) 31.6 Intake & Output: Intake and Output for Last 24 Hours 07/12/24 07/13/24 07/14/24 23:59 23:59 23:59 Intake Total 1742.66 / 1747.66 798.75 / 798.75 Output Total 175 / 325 400 / 400 Balance 1567.66 / 1422.66 398.75 / 398.75 Lab / Micro Data 07/14/24 04:29 07/14/24 04:29 Labs: Laboratory Results - last 24 hr 07/14/24 04:29: WBC 14.5 H, RBC 4.35 L, Hgb 14.2, Hct 41.5, MCV 95.4 H, MCH 32.6 H, MCHC 34.2, RDW Std Deviation 52.5 H, RDW Coeff of Yaneli 14.8 H, Plt Count 238, MPV 9.7, Immature Gran % (Auto) 0.300, Neut % (Auto) 81.7 H, Lymph % (Auto) 9.4 L, [place] % (Auto) 8.1, Eos % (Auto) 0.3, Baso % (Auto) 0.2, Absolute Neuts (auto) 11.9 H, Absolute Lymphs (auto) 1.37, Nucleated RBC % 0, Sodium 138, Potassium 4.0, Chloride 106, Carbon Dioxide 20.5 L, Anion Gap 11, BUN 14, Creatinine 0.92, Estim Creat Clear Calc 74.79, Est GFR (MDRD) Non-Af 85, BUN/Creatinine Ratio 15.6, Glucose 111 H, Calcium 8.5 Micro: Microbiology 07/13/24 15:11 Urine, Clean Catch Legionella Antigen - Final 07/13/24 15:11 Urine, Clean Catch Streptococcus pneumoniae Antigen (M - Final 07/13/24 07:05 Mucosa - Nose SARS-CoV-2, Influenza & RSV (PCR) - Final Radiography Diagnostic Testing: Radiology Impression Echocardiogram 07/13/24 08:37 Interpretation Summary Normal LV size. Left ventricular systolic function is normal. The left ventricular ejection fraction is 55 %. The left atrium is mildly enlarged. Ordering Physician: Bertin Wolff Referring Physician: Clifton Del Valle Chi Performed By: Trisha Chen RDCS Chest X-Ray 07/14/24 05:45 IMPRESSION: Prominent right upper lobe infiltrate is again seen, perhaps slightly diminished since the prior study. This is concerning for the presence of pneumonitis. No new or worsened pneumonic process is seen. No evidence of pulmonary edema. No pleural effusion or pneumothorax is seen. The cardiomediastinal silhouette is stable. Reading Location: [address] Physical Exam Narrative alert, oriented x3 and no apparent distress General Appearance: cooperative, well kempt and well developed Orientation / Consciousness: awake, oriented to person, oriented to place and oriented to time HEENT normocephalic, head/scalp atraumatic, hearing grossly normal bilaterally and moist oral mucous membranes Eyes PERRL, EOMs intact bilaterally and conjunctivae normal Neck supple, no JVD, thyroid normal and no carotid bruits General: trachea midline Resp normal respiratory effort, no retractions and no use of accessory muscles Resp Narrative: Inspiratory rales are noted over the right lower lung field Auscultation: Negative for rales, rhonchi or wheezes Cardio S1 normal heart sound, S2 normal heart sound, no murmurs, no rub and no gallops Cardio Narrative: Heart rate and rhythm is irregular and tachycardic GI normal to inspection, nondistended, normoactive bowel sounds, soft to palpation, non-tender and non-distended Extremity no clubbing, cyanosis or edema Skin no rashes or lesions noted General Skin Exam: no breakdown Neuro oriented x3, CN's II-XII intact bilaterally, no focal motor deficits and no sensory deficits noted Sensorium / Orientation: awake and alert Speech: speech normal Psych affect normal Assessment & Plan Assessment/Plan (1) Pneumonia: PLAN: Plan 1. Community-acquired pneumonia-patient will remain on Zithromax and Rocephin, urine for Legionella and strep pneumoniae antigens were negative, patient's RSV, influenza, and COVID-19 testing was also negative. #2 chronic atrial fibrillation-now with RVR-I have decided to stop the patient's Cardizem drip, he remains on metoprolol for rate control #3 chronic diastolic CHF-patient is on Entresto, metoprolol, and a diuretic #4 coronary artery disease-this appears stable at this time, patient will remain on his home medications #5 essential hypertension-patient will remain on his home medications with an increase in his metoprolol, patient's Cardizem will not be restarted #6 hypoxia secondary to #1-patient is on low-flow nasal cannula oxygen, pulse ox will be monitored and oxygen will be adjusted as needed Total clinical time spent by myself addressing the patient's medical issues, reviewing all of his data, and collaborating with patient's care team: 35 minutes Charges/Coding Visit Charges Inpatient E&M: 65502 Subs Hosp L2
[2024-07-14] MEDS: Digoxin 250 MCG/ML Ampul 500 MCG IV (15:32)
[2024-07-14] MEDS: Pravastatin 40 MG Tablet PO (20:22)
[2024-07-14] MEDS: Metoprolol(XL)Succ 50 MG Tablet 150 MG PO (20:23)
[2024-07-14] MEDS: Digoxin 250 MCG/ML Ampul IV (21:29)
[2024-07-15] VITALS (7 sets, daily range): BP systolic 118–123; BP diastolic 64–75; PULSE 87–107; RESP 16–18; TEMP 36.6–37; O2SAT 91–95
[2024-07-15] MEDS: Digoxin 250 MCG/ML Ampul IV (05:34)
[2024-07-15] MEDS: 0.9% Saline Lock 10 ML Syringe IV (05:34)
[2024-07-15 05:53] LABS: Absolute Lymphocyte Count 0.94 X10^3/uL (0.83-4.51); Absolute Neutrophil Count 7.6 X10^3/uL (2.0-7.7); Basophil# 0.03 X10^3/uL; Basophil% 0.3 % (0-1); Eosinophil# 0.04 X10^3/uL; Eosinophils% 0.4 % (0-5); Hematocrit 42.1 % (40-54); Hemoglobin 14.3 g/dL (13.0-16.5); Lymphocyte # 0.94 X10^3/ul (0.83-4.51); Lymphocyte % 9.7 % (19-41); Mean Corpuscular Hgb 32.1 pg (27.0-32.0); Mean Corpuscular Volume 94.4 fL (80-94); Mean Platelet Vol. 9.2 fl (6.2-12.0); Monocyte# 1.07 X10^3/uL; NRBC Flagged by Analyzer 0 % (0-5); Neutrophil # 7.61 X10^3/uL (2.7-7.7); Neutrophil % 78.1 % (47-70); Platelet Count 218 K/mm3 (150-450); RBC Distribution Width CV 14.5 % (11.6-14.6); RBC Distribution Width SD 50.4 fl (35.1-43.9); Red Blood Count 4.46 M/mm3 (4.6-6.2); White Blood Count 9.7 K/mm3 (4.4-11.0)
[2024-07-15] MEDS: Budesonide Respules 0.5 MG/2 ML AMPUL.NEB. INHALATION (06:53)
[2024-07-15] MEDS: Ipratropium/Albuterol Sulfate 3 ML AMPUL.NEB INHALATION (06:53)
[2024-07-15] MEDS: Metoprolol(XL)Succ 50 MG Tablet 150 MG PO (08:19)
[2024-07-15] MEDS: Potassium Chloride Oral Tablet 20 MEQ 40 MEQ PO (08:21)
[2024-07-15] MEDS: SACUBITRIL/VALSARTAN 97-103 MG TABLET 1 EACH PO (08:21)
[2024-07-15] MEDS: APIXABAN 5 MG TABLET PO (08:21)
[2024-07-15] MEDS: Multivitamin (Healthy Eyes) Capsule 1 CAP PO (08:21)
[2024-07-15] MEDS: Pantoprazole Sodium 40 MG Tablet PO (08:21)
[2024-07-15] MEDS: Ceftriaxone 1 GM/50 ML BAG IV (09:30)
[2024-07-15] MEDS: Azithromycin 500 MG in 0.9% Normal Saline (250mL Bag) 250 ML 255 MG IV (10:04)
--- NOTE | 2024-07-15 10:45 | CASEMGMT ---
DONATO WANG Face to Face with patient for initial transition planning/care coordination assessment. RN FELIPE introduced self and role at [facility]. Patient lying in bed, alert and oriented. Patient willing to participate in assessment and is able to answer all questions appropriately. Care providers, pharmacy, and demographics verified. Strata: 3 PCP: Eligio Specialists: ANGEL, visual manager Preferred Pharmacy: [facility] Insurance: [facility] [employer] Prescription Benefit: yes Living Will/HPOA: none LNOK: sister Living Arrangements: Patient lives alone in a first floor apartment with no steps to enter. Patient is independent at home. Transportation: area cleaner DME/HHC: Patient has shower chair, grab bars, and medical alert. Patient has been to [facility]. Patient has aide through waiver with FELIPE Low. Patient wishes to discharge home, denies need for home health at this time. Patient states he has no further needs or concerns at this time. CM to follow for discharge planning needs that may arise. Disposition Plan: Patient to discharge home with aide services and follow-up plans in place. Terri BACA, RN, CM
--- NOTE | 2024-07-15 11:08 | DCINST_ITS ---
Discharge Instructions Diet Discharge Diet: No restrictions DC O2, CPAP, BIPAP needs Home O2 Discharge instructions: No Dressing / Incision Discharge Activity: Return to Normal Activity Weight Bearing Status: Full weight bearing Follow Up Care Test Results: Test results from this visit will be discussed in further detail at your follow- up appointment, if applicable. Discharge Plan Admission Admit Date/Time: 07/13/24 08:27 Primary Reason for Your Visit: Pneumonia, A-fib with RVR Attending Provider: Bertin Wolff Primary Care Provider: Clifton Del Valle Chi Discharge Orders/Prescriptions Prescriptions: New metoprolol succinate 50 mg Tablet Extended Release 24 Hr 150 mg PO BID Qty: 180 0RF diltiazem HCl [Cardizem CD] 120 mg capsule,extended release 24hr 120 mg PO DAILY Qty: 30 0RF Rx Instructions: Start on 07/16/2024 digoxin [Lanoxin] 250 mcg (0.25 mg) tablet 250 mcg PO DAILY Qty: 30 0RF Rx Instructions: Start on 07/16/2024 cefdinir 300 mg capsule 300 mg PO BID Qty: 10 0RF Rx Instructions: Start on 07/16/2024 Continued Entresto 97-103 mg tablet 1 tab PO BID furosemide 40 mg tablet 40 mg PO DAILY albuterol sulfate 2.5 MG/3 ML solution for nebulization 2.5 mg inhalation Q4H PRN PRN (Reason: Shortness Of Breath) pravastatin 40 MG tablet 40 mg PO QHS potassium chloride 20 MEQ tablet 40 meq PO DAILY pantoprazole 40 MG tablet 40 mg PO BID vitamins A,C,Y-hrju-jhrgvv 1 EACH capsule 1 ea PO BID fluticasone furoate-vilanterol 1 EACH blister with device 1 ea IH DAILY cholecalciferol (vitamin D3) 25 mcg (1,000 unit) capsule 3,000 unit PO DAILY apixaban 5 MG tablet 5 mg PO BID Discontinued metoprolol tartrate 50 mg tablet 50 mg PO BID Qty: 180 3RF diltiazem HCl 240 mg capsule,extended release 24 hr 240 mg PO DAILY Referrals / Follow Up: Clifton Del Valle Chi, MD [Primary Care Provider] - In 1 Week Disposition Disposition (needs filled in before D/C Order can be placed): Home, Self Care
--- NOTE | 2024-07-15 11:21 | PCM.DC.SUM ---
Providers Date of Admission: 07/13/24 Date of Discharge: 07/15/24 Primary Care Physician: Dr. Clifton Del Valle MD Reason For Visit: COMMUNITY-ACQUIRED PNEUMONIA, A-FIB WITH RVR Diagnosis Discharge Diagnosis (1) Pneumonia: Status: Acute Code(s): J18.9 - Pneumonia, unspecified organism Plan 1. Community-acquired pneumonia-patient will remain on Zithromax and Rocephin, urine for Legionella and strep pneumoniae antigens were negative, patient's RSV, influenza, and COVID-19 testing was also negative. #2 chronic atrial fibrillation-now with RVR-I have decided to stop the patient's Cardizem drip, he remains on metoprolol for rate control #3 chronic diastolic CHF-patient is on Entresto, metoprolol, and a diuretic #4 coronary artery disease-this appears stable at this time, patient will remain on his home medications #5 essential hypertension-patient will remain on his home medications with an increase in his metoprolol, patient's Cardizem will not be restarted #6 hypoxia secondary to #1-patient is on low-flow nasal cannula oxygen, pulse ox will be monitored and oxygen will be adjusted as needed Total clinical time spent by myself addressing the patient's medical issues, reviewing all of his data, and collaborating with patient's care team: 35 minutes Medications at Discharge Home Medications albuterol sulfate 2.5 mg/3 mL (0.083 %) solution for nebulization 2.5 mg inhalation Q4H PRN PRN Shortness Of Breath 01/25/19 fluticasone furoate 100 mcg-vilanterol 25 mcg/dose inhalation powder 1 ea IH DAILY breathing 01/25/19 pantoprazole 40 mg tablet,delayed release 40 mg PO BID stomach 01/25/19 potassium chloride 20 mEq tablet,extended release(part/cryst) 40 meq PO DAILY supplement 01/25/19 pravastatin 40 mg tablet 40 mg PO QHS cholesterol 01/25/19 vitamins A,C,S-ygkp-auglsg 4,296 mcg-226 mg-90 mg capsule 1 ea PO BID Eye vitamin 01/25/19 cholecalciferol (vitamin D3) 25 mcg (1,000 unit) capsule 3,000 unit PO DAILY supplement 05/14/19 furosemide 40 mg tablet 40 mg PO DAILY water pill 05/10/22 sacubitril 97 mg-valsartan 103 mg tablet (Entresto) 1 tab PO BID 05/10/22 apixaban 5 mg tablet 5 mg PO BID afib 07/13/24 cefdinir 300 mg capsule 300 mg PO BID #10 caps 07/15/24 digoxin 250 mcg (0.25 mg) tablet (Lanoxin) 250 mcg PO DAILY #30 tabs 07/15/24 diltiazem HCl 120 mg capsule,extended release 24 hr (Cardizem CD) 120 mg PO DAILY #30 caps 07/15/24 metoprolol succinate 50 mg tablet,extended release 24 hr 150 mg (3 x 50 mg) PO BID #180 tabs 07/15/24 Hospital Course Operations None Procedures 2-D Echocardiogram Summary of Care Provided Minutes Spent on Discharge: 32 Hospital Course: This 79-year-old white male was seen in the emergency room with complaints of shortness of breath and chills. The symptoms started several hours before he went to the emergency room. Examination in the emergency room revealed the patient to be tachycardic in atrial fibrillation with a rate of approximately 135, labs obtained showed an elevated white blood cell count at 13.4, patient's chemistry panel was unremarkable and urinalysis was unremarkable. Chest x-ray was performed which showed a right lung infiltrate indicative of pneumonia, patient required supplemental oxygen 2 L/min to maintain his pulse ox above 90%. Patient was placed on a Cardizem drip and given additional oral metoprolol, he was admitted to PCU and treated with IV antibiotics. Patient's heart rate was difficult to get under control, after increasing the patient's metoprolol dosage, I stopped his Cardizem drip and placed him on digoxin. At the time of discharge on 07/15/2024, I added Cardizem [id number] daily to his medications. On 07/15/2024, patient was seen and examined: On examination he appeared in good health and spirits. Vital signs as documented. Skin warm and dry and without overt rashes. Neck without JVD, neck was supple, trachea midline, thyroid was normal. Lungs clear bilaterally, normal air movement was noted. Heart exam notable for irregular rhythm and irregular rate, normal sounds and absence of murmurs, rubs or gallops. Abdomen unremarkable and without evidence of organomegaly, masses, or abdominal aortic enlargement. Bowel sounds are present, abdomen is not distended. Extremities nonedematous, no cyanosis was noted, no clubbing was noted. Neuro: Cranial nerves II through XII are grossly intact, no focal motor deficits were noted, sensation to light touch and pinprick intact, motor exam 5/5 throughout. Psych: Patient is alert and oriented x3, he does not appear anxious or depressed, he does not appear agitated. Patient appears stable for discharge home on 07/15/2024. Weight / BMI Weight Weight: 97 kg Body Mass Index (BMI) 31.6 ABG / Lab / Microbiology Data 07/15/24 05:13 07/14/24 04:29 Laboratory: Laboratory Results - last 24 hr 07/15/24 05:13: WBC 9.7, RBC 4.46 L, Hgb 14.3, Hct 42.1, MCV 94.4 H, MCH 32.1 H, MCHC 34.0, RDW Std Deviation 50.4 H, RDW Coeff of Yaneli 14.5, Plt Count 218, MPV 9.2, Immature Gran % (Auto) 0.500, Neut % (Auto) 78.1 H, Lymph % (Auto) 9.7 L, [place] % (Auto) 11.0 H, Eos % (Auto) 0.4, Baso % (Auto) 0.3, Absolute Neuts (auto) 7.6, Absolute Lymphs (auto) 0.94, Nucleated RBC % 0 Microbiology: Microbiology 07/13/24 08:00 Blood Culture (Wb) - Anticubital Right Blood Culture - Preliminary No growth in 48 hours. 07/13/24 07:45 Blood Culture (Wb) - Anticubital Right Blood Culture - Preliminary No growth in 48 hours. 07/13/24 15:11 Urine, Clean Catch Legionella Antigen - Final 07/13/24 15:11 Urine, Clean Catch Streptococcus pneumoniae Antigen (M - Final 07/13/24 07:05 Mucosa - Nose SARS-CoV-2, Influenza & RSV (PCR) - Final D/C Instructions Discharge Diet: No restrictions Weight Bearing Status: Full weight bearing DC O2, CPAP, BIPAP Needs Home O2 Discharge instructions: No Meaningful Use Info Meaningful Use Meaningful Use Diagnoses (Choose all that apply): None applicable Ischemic Stroke Statin Dosing Therapy Reference: STATIN DOSE THERAPY REFERENCE: * Patients > 75 years receive moderate or high dose statin therapy. * Patients 75 years or YOUNGER should receive HIGH intensity statin dose unless contraindicated. You will be required to document reason for non-treatment if statin daily dose does not meet guidelines. HIGH DOSE STATIN THERAPY DAILY Atorvastatin > than or = to 40 mg Rosuvastatin > than or = to 20 mg Amlodipine + Atorvastatin > than or = to 2.5/40 mg Ezetimibe + Simvastatin 10/80 mg Simvastatin 80mg Discharge Plan Admission Admit Date/Time: 07/13/24 08:27 Primary Reason for Your Visit: Pneumonia, A-fib with RVR Attending Provider: Bertin Wolff Primary Care Provider: Clifton Del Valle Chi Discharge Orders/Prescriptions Prescriptions: New metoprolol succinate 50 mg Tablet Extended Release 24 Hr 150 mg PO BID Qty: 180 0RF diltiazem HCl [Cardizem CD] 120 mg capsule,extended release 24hr 120 mg PO DAILY Qty: 30 0RF Rx Instructions: Start on 07/16/2024 digoxin [Lanoxin] 250 mcg (0.25 mg) tablet 250 mcg PO DAILY Qty: 30 0RF Rx Instructions: Start on 07/16/2024 cefdinir 300 mg capsule 300 mg PO BID Qty: 10 0RF Rx Instructions: Start on 07/16/2024 Continued Entresto 97-103 mg tablet 1 tab PO BID furosemide 40 mg tablet 40 mg PO DAILY albuterol sulfate 2.5 MG/3 ML solution for nebulization 2.5 mg inhalation Q4H PRN PRN (Reason: Shortness Of Breath) pravastatin 40 MG tablet 40 mg PO QHS potassium chloride 20 MEQ tablet 40 meq PO DAILY pantoprazole 40 MG tablet 40 mg PO BID vitamins A,C,B-tvkb-zlhsxz 1 EACH capsule 1 ea PO BID fluticasone furoate-vilanterol 1 EACH blister with device 1 ea IH DAILY cholecalciferol (vitamin D3) 25 mcg (1,000 unit) capsule 3,000 unit PO DAILY apixaban 5 MG tablet 5 mg PO BID Discontinued metoprolol tartrate 50 mg tablet 50 mg PO BID Qty: 180 3RF diltiazem HCl 240 mg capsule,extended release 24 hr 240 mg PO DAILY Referrals / Follow Up: Clifton Del Valle Chi, MD [Primary Care Provider] - In 1 Week Disposition Disposition (needs filled in before D/C Order can be placed): Home, Self Care Charges/Coding Visit Charges Inpatient E&M: 30801 Disch Hosp >30min
--- NOTE | 2024-07-15 12:21 | CASEMGMT ---
ÓSCAR faxed patient's d/c summary to Almaz Low at [facility] per her request. Sravanthi Polk PIG MACHINE SUPERVISOR QUANG
[2024-07-15] MEDS: dilTIAZem CD 120 MG Capsule PO (12:29)
--- NOTE | 2024-07-15 13:43 | PHA.DC.MC.R ---
Pharmacy [facility] Pharm[facility] Service has performed discharge medication reconciliation and counseling for this patient. 1. CEFDINIR 300MG PO BID X 5 DAYS 2. DIGOXIN 250MCG PO DAILY The patient's discharge medication list was reviewed for discrepancies and discrepancies were resolved. The patient was counseled on the following discharge medications and changes in medications for homegoing were reviewed. The Reason for Use, instructions for use, and potential side effects were reviewed for all new medications. The patient's questions regarding all of their medications were answered. The patient was able to verbally demonstrate an understanding of their discharge medications. Medications at Discharge Home Medications albuterol sulfate 2.5 mg/3 mL (0.083 %) solution for nebulization 2.5 mg inhalation Q4H PRN PRN Shortness Of Breath 01/25/19 fluticasone furoate 100 mcg-vilanterol 25 mcg/dose inhalation powder 1 ea IH DAILY breathing 01/25/19 pantoprazole 40 mg tablet,delayed release 40 mg PO BID stomach 01/25/19 potassium chloride 20 mEq tablet,extended release(part/cryst) 40 meq PO DAILY supplement 01/25/19 pravastatin 40 mg tablet 40 mg PO QHS cholesterol 01/25/19 vitamins A,C,I-ltbz-uwcrph 4,296 mcg-226 mg-90 mg capsule 1 ea PO BID Eye vitamin 01/25/19 cholecalciferol (vitamin D3) 25 mcg (1,000 unit) capsule 3,000 unit PO DAILY supplement 05/14/19 furosemide 40 mg tablet 40 mg PO DAILY water pill 05/10/22 sacubitril 97 mg-valsartan 103 mg tablet (Entresto) 1 tab PO BID 05/10/22 apixaban 5 mg tablet 5 mg PO BID afib 07/13/24 cefdinir 300 mg capsule 300 mg PO BID #10 caps 07/15/24 digoxin 250 mcg (0.25 mg) tablet (Lanoxin) 250 mcg PO DAILY #30 tabs 07/15/24 diltiazem HCl 120 mg capsule,extended release 24 hr (Cardizem CD) 120 mg PO DAILY #30 caps 07/15/24 metoprolol succinate 50 mg tablet,extended release 24 hr 150 mg (3 x 50 mg) PO BID #180 tabs 07/15/24
--- NOTE | 2024-07-15 14:52 | CHAPLAIN ---
Type of Pastoral Visit _x__ Initial Visit ___ Follow-up Visit ___ On-call Visit ___ General Patient Visit ___ Spiritual Assessment ___ Family Conference ___ Bereavement ___ Rapid Response ___ Code Blue ___ Other (describe below) Pastoral Care Referral From _x__ Patient ___ Family ___ Nurse ___ Physician ___ Gallery Or Museum Curator ___ Workflow Developer ___ Other (describe below) Sacrament/Intervention _x__ Active listening ___ Anointing ___ Congregation ___ Bereavement ___ Communion _x__ Zakiya exploration ___ ___ Life review _x__ Prayer ___ Reconciliation ___ Sacrament of Sick _x__ Supportive presence ___ Wedding ___ Other (describe below) Pastoral Comments patient was receiving discharge orders from the RN when this net developer software engineer c walked in; at finish of review analyst, this net developer software engineer c sat with the patient until his ride came to pick him up; pt says that he wanted to see the net developer software engineer c because he had questions; pt asks several questions about spiritual matters; pt says he was turned off from jewish and jehovah's witness by a relative but wants to know answers to his thoughts about jewish that he has considered; listened, gave feedback, and offered prayer for the patient;
== END 2024-07-15 13:25 | disposition home or self-care (01) | DRG 308 ==
LOC: ED 08:40 → PCU 13:46
PROVIDERS: Admitting Provider Internal Medicine; Emergency Provider Emergency Medicine; PCP Family Medicine Geriatric Medicine; Visit Provider Internal Medicine
DX: I48.20 Chronic atrial fibrillation, unspecified (principal); J18.9 Pneumonia, unspecified organism; J44.0 Chronic obstructive pulmonary disease with (acute) lower respiratory infection; I50.32 Chronic diastolic (congestive) heart failure; I11.0 Hypertensive heart disease with heart failure; E78.5 Hyperlipidemia, unspecified; I25.10 Atherosclerotic heart disease of native coronary artery without angina pectoris; K21.9 Gastro-esophageal reflux disease without esophagitis; Z79.01 Long term (current) use of anticoagulants; Z87.891 Personal history of nicotine dependence; R09.02 Hypoxemia; Z85.46 Personal history of malignant neoplasm of prostate; Z79.899 Other long term (current) drug therapy; Z79.51 Long term (current) use of inhaled steroids; Z90.49 Acquired absence of other specified parts of digestive tract
CPT/HCPCS: 36415; 71045; 80048; 83735; 83880; 85025; 87040; 87449; 87631; 93005; 93306; 94640; 97116; 97162; 97166; 97530; 97535; 99252; 99285; A4216; G0463; J0696

== ENCOUNTER → 2024-09-05 | Outpatient (CLI) | payer MEDICARE, MEDICAID, SELFPAY ==
[2024-09-05 12:15] LABS: Absolute Neutrophil Count 4.8 X10^3/uL (2.0-7.7); Basophil# 0.04 X10^3/uL; Basophil% 0.5 % (0-1); Eosinophil# 0.08 X10^3/uL; Hematocrit 49.2 % (40-54); Hemoglobin 16.5 g/dL (13.0-16.5); Mean Corp Hgb Conc 33.5 g/dL (32-36); Mean Corpuscular Hgb 32.3 pg (27.0-32.0); Mean Corpuscular Volume 96.3 fL (80-94); Mean Platelet Vol. 9.3 fl (6.2-12.0); Monocyte# 0.77 X10^3/uL; NRBC Flagged by Analyzer 0 % (0-5); Neutrophil # 4.78 X10^3/uL (2.7-7.7); Neutrophil % 62.1 % (47-70); Platelet Count 309 K/mm3 (150-450); RBC Distribution Width CV 14.4 % (11.6-14.6); RBC Distribution Width SD 51.6 fl (35.1-43.9); Red Blood Count 5.11 M/mm3 (4.6-6.2); White Blood Count 7.7 K/mm3 (4.4-11.0)
[2024-09-05 13:20] LABS: ALB/GLOB Ratio 1.7 RATIO (0.9-2.4); AST(SGOT) 29 U/L (<=37); Alanine Aminotransfer ALT/SGPT 35 U/L (<=46); Albumin, Serum 4.2 g/dL (3.4-4.8); Alkaline Phosphatase 80 U/L (40-129); Anion Gap 12 (5-15); BUN 15 mg/dL (4-19); BUN/Creat Ratio 16.4 RATIO (10-20); Calcium,Total 9.1 mg/dL (7.6-11.0); Carbon Dioxide 22.5 mmol/L (21.0-32.0); Chloride 104 mmol/L (98-108); Cholesterol 127 mg/dL (<=200); Creatinine, Serum 0.92 mg/dL (0.70-1.20); EST Glomerular Filtration Rate 84 (>60); Globulin 2.5 g/dL (2.2-4.2); Glucose 104 mg/dL (70-99); High Density Lipoprotein 42 mg/dL; Low Density Lipoprotein Calc. 65 mg/dL; Potassium 4.3 mmol/L (3.3-5.1); Protein, Total 6.7 g/dL (5.9-8.4); Sodium Level 139 mmol/L (133-145); Total Bilirubin 0.45 mg/dL (0.00-1.30); Triglycerides 98 mg/dL; Very Low Density Lipoprotein 20 mg/dL (5-40); Vitamin D,25 Hydroxy 39.7 ng/mL (30-100)
== END | disposition home or self-care (01) ==
LOC: LAB 11:20
PROVIDERS: PCP Family Medicine Geriatric Medicine; Referring Provider Family Medicine Geriatric Medicine; Visit Provider Family Medicine Geriatric Medicine
DX: E78.5 Hyperlipidemia, unspecified (principal); R53.83 Other fatigue
CPT/HCPCS: 36415; 80053; 80061; 82306; 84443; 85025

== ENCOUNTER 2024-11-10 06:18 | Inpatient (IN) | payer MEDICARE, MEDICAID, SELFPAY ==
[2024-11-10] VITALS (13 sets, daily range): BP systolic 103–120; BP diastolic 62–89; PULSE 87–101; RESP 16–25; TEMP 36.4–36.9; O2SAT 91–98; BMI 31.6; BMI 32.3
--- NOTE | 2024-11-10 06:41 | EKG12_ITS ---
Test Reason : SHARP PAIN Blood Pressure : */* mmHG Vent. Rate : 97 BPM Atrial Rate : * BPM P-R Int : * ms QRS Dur : 72 ms QT Int : 342 ms P-R-T Axes : * 47 67 degrees QTcB Int : 434 ms Atrial fibrillation Nonspecific T wave abnormality Abnormal ECG Confirmed by Audi Vallecillo ([id number]), commercial production editor COLEEN FUENTES ([id number]) on 11/12/2024 1:08:04 PM Referred By: Confirmed By: Audi Vallecillo
--- NOTE | 2024-11-10 06:42 | ED.VIS.CHEST ---
HPI History of Present Illness Chief Complaint: Other, Pain/Inj Informant: patient and EMS Narrative Narrative: 79-year-old male states he woke up an hour or so ago with pleuritic right sided chest discomfort and presents for that reason. He states he has not felt well for the past 3 days or so. He has a history of COPD but does not necessarily feel like it has been flared up and denies any increase in his cough, he states when he takes a deep breath oftentimes it makes him cough once or so but he has not really had any acute cough. States the pain feels like it is inside the right side of his chest. He denies dyspnea. No fevers or chills. No focal weakness, just feels weak all over. No problems urinating. He had 1 bout of diarrhea this morning, but no nausea or vomiting or abdominal pain. No headache. No sore throat or earache or any other acute symptoms. [facility] Medical History Hypoxia Pneumonia Diastolic CHF, chronic Atrial fibrillation Prostate cancer Chronic gastric ulcer Atherosclerosis of coronary artery of [place] heart without angina pectoris Essential hypertension PAF (paroxysmal atrial fibrillation) Atrial fibrillation with rapid ventricular response Pancreatitis Abnormal EKG Hypokalemia Metabolic alkalosis Hyperlipidemia Acute respiratory insufficiency Acute exacerbation of chronic obstructive pulmonary disease (COPD) COPD (chronic obstructive pulmonary disease) Paroxysmal SVT (supraventricular tachycardia) GERD (gastroesophageal reflux disease) CHF (congestive heart failure) Home Medications Medication Instructions Recorded Last Taken Type albuterol sulfate 2.5 mg/3 mL 2.5 mg inhalation Q4H PRN PRN 01/25/19 01/25/19 01:00 History (0.083 %) solution for nebulization Shortness Of Breath pantoprazole 40 mg tablet,delayed 40 mg PO BID stomach 01/25/19 01/24/19 18:00 History release potassium chloride 20 mEq 40 meq PO DAILY supplement 01/25/19 01/24/19 06:00 History tablet,extended release(part/cryst) pravastatin 40 mg tablet 40 mg PO QHS cholesterol 01/25/19 01/24/19 18:00 History cholecalciferol (vitamin D3) 25 3,000 unit PO DAILY supplement 05/14/19 Unknown History mcg (1,000 unit) capsule furosemide 40 mg tablet 40 mg PO DAILY water pill 05/10/22 Unknown History sacubitril 97 mg-valsartan 103 mg 1 tab PO BID 05/10/22 Unknown History tablet (Entresto) apixaban 5 mg tablet 5 mg PO BID afib 07/13/24 Unknown History diltiazem HCl 120 mg 120 mg PO DAILY #30 caps 07/15/24 Unknown Rx capsule,extended release 24 hr (Cardizem CD) metoprolol succinate 50 mg 150 mg (3 x 50 mg) PO BID #180 tabs 07/15/24 Unknown Rx tablet,extended release 24 hr fluticasone fur. 100 mcg-umeclid 1 ea inhalation DAILY 11/10/24 Unknown History 62.5 mcg-vilant 25 mcg inhalat.powder (Trelegy Ellipta) Allergy/AdvReac Type Severity Reaction Status Date / Time No Known Allergies Allergy Verified 07/13/24 06:44 Family History Mother CVA (cerebral vascular accident) Father Dementia Surgical History History of laparoscopic cholecystectomy (01/29/19) History of gastric surgery History of breast lump/mass excision Social History Smoking Status: Former smoker how long ago did patient quit smokin years ago alcohol intake: former year quit: 2016 substance use type: does not use caffeine: Yes ROS ROS ED Constitutional Constitutional ED: Reports malaise and weakness; Denies chills or fever(s) Eyes Eyes: Denies change in vision or diplopia ENT ENT ED: Denies rhinorrhea or sore throat Cardiovascular Cardiovascular: Reports as per HPI and chest pain; Denies lightheadedness, palpitations, radiating jaw, neck or arm pain or syncope Respiratory/Chest Respiratory/Chest: Denies cough or dyspnea Gastrointestinal Gastrointestinal: Denies abdominal pain, diarrhea, nausea or vomiting Genitourinary Genitourinary ED: Denies dysuria or hematuria Musculoskeletal Musculoskeletal: Denies back pain or neck pain Integumentary Denies abscess or rash Neurologic Neurologic: Denies headache(s), paresthesias or weakness Psychiatric Psychiatric: Denies anxiety or suicidal thoughts EXAM Physical Exam Const Vital Signs: 11/10/24 06:21 11/10/24 06:21 11/10/24 06:25 Temperature 98.4 F 98.4 F Temperature Source Oral Oral Pulse Rate 97 97 Respiratory Rate 25 H 25 H Respiratory Effort Short of Breath Respiratory Pattern Tachypnea Blood Pressure 110/70 110/70 Blood Pressure Mean 83 83 Pulse Ox 94 94 Oxygen Delivery Method Room Air Room Air 11/10/24 07:48 Temperature Temperature Source Pulse Rate Respiratory Rate Respiratory Effort Respiratory Pattern Blood Pressure Blood Pressure Mean Pulse Ox 93 Oxygen Delivery Method Room Air Positive well nourished and well developed General Appearance ED: well developed and NAD HEENT Reports moist mucous membranes normocephalic and atraumatic Eyes PERRL and EOMs intact bilaterally Neck full ROM, no lymphadenopathy, supple and no JVD Chest Wall inspection of chest normal and palpation of chest normal Chest: Negative for tenderness Resp normal respiratory effort and clear to auscultation bilaterally Cardio regular rate and regular rhythm Rhythm: abnormal rhythm irregularly irregular Peripheral Pulses: pulses 2+ throughout GI non-tender and non-distended Auscultation: normoactive bowel sounds Palpation: soft Back/Spine no CVA tenderness General Back: other FROM Extremity normal to inspection General Extremety ED: Yes edema; Negative for pulses abnormal or tenderness General Extremity: edema bilateral lower extremity Details: moderate (With signs of chronic stasis dermatitis and induration no tenderness, chronic-appearing); Negative for pulses abnormal Neuro oriented x3, CN's II-XII intact bilaterally and no sensory deficits noted Sensorium / Orientation: awake and alert Motor Exam: strength 5/5 throughout Skin no rashes or lesions noted and no wounds MDM MDM MDM Narrative Medical decision making narrative: Patient anticoagulated for chronic A-fib, EKG shows A-fib and some nonspecific T wave abnormalities but otherwise no acute injury and he does not have RVR. His QTc is within normal limits. His blood work is unremarkable and his troponin is unremarkable, I am not concerned about him having a PE since he is anticoagulated, but on his 2 view chest x-ray, on my interpretation it appears that he has an interstitial pneumonia on the right. Radiology in agreement. Furthermore, he ambulated to the bathroom which is literally in the patient's room, and upon getting back to the bed and putting himself back on the pulse oximetry, he was 83% on room air and took some time to come back up. We placed him on a nasal cannula, and given this he was given IV Zosyn, azithromycin, and discussed with hospitalist for admission. Lab Data Attestation: I reviewed the patient's lab results. Labs: Laboratory Results - last 24 hr 11/10/24 11/10/24 06:49 07:24 WBC 8.3 RBC 4.47 L Hgb 14.4 Hct 40.9 MCV 91.5 MCH 32.2 H MCHC 35.2 RDW Std Deviation 47.8 H RDW Coeff of Yaneli 14.3 Plt Count 241 MPV 9.1 Immature Gran % (Auto) 0.700 Neut % (Auto) 79.5 H Lymph % (Auto) 7.8 L Allen % (Auto) 11.2 H Eos % (Auto) 0.6 Baso % (Auto) 0.2 Absolute Neuts (auto) 6.6 Absolute Lymphs (auto) 0.65 L Nucleated RBC % 0 Sodium 137 Potassium 4.0 Chloride 105 Carbon Dioxide 21.0 Anion Gap 11 BUN 11 Creatinine 0.85 Estim Creat Clear Calc 81.07 Est GFR (MDRD) Non-Af 88 BUN/Creatinine Ratio 13.2 Glucose 132 H Calcium 8.5 Troponin T High Sens 18 Urine Color Alcira Urine Clarity Clear Urine pH 6.0 Ur Specific [place] 1.010 Urine Protein 30 H Urine Glucose (UA) Normal Urine Ketones 5 H Urine Occult Blood 50 H Urine Nitrite Negative Urine Bilirubin Negative Urine Urobilinogen 8 H Ur Leukocyte Esterase 25 H Urine RBC 0-5 SEEN Urine WBC 0-5 SEEN Ur Squamous Epith Cells 0 SEEN Urine Bacteria 0 SEEN Urine Mucus 0 SEEN Radiography Diagnostic Testing: Clinical Impression(s) from Imaging Studies Chest X-Ray 11/10/24 07:04 IMPRESSION: The prominent interstitial markings in the right middle and lower lobes may represent pneumonia in the right clinical setting. These findings are similar when compared to the prior chest x-ray studies indicating that there may be some underlying pneumonitis or parenchymal scarring. New small right pleural effusion Reading Location: [facility] Rhythm Strip Rhythm Strip: A-fib Rate: 95 Ectopy: None EKG Initial EKG: Attestation: I personally reviewed and interpreted this EKG as follows: Interpretation: No Acute Injury Pattern and Atrial Fibrillation Prior EKG tracings: available for review Prior: Unchanged Management Discussion w/another healthcare provider: Hospitalist Discharge Plan Dx/Rx/DC Orders Clinical Impression: Pneumonia, Hypoxemia, Generalized weakness, Atrial fibrillation Disposition Disposition: Acute Care Hospital [facility]
[2024-11-10 06:57] LABS: Hematocrit 40.9 % (40-54); Hemoglobin 14.4 g/dL (13.0-16.5); Immature Granulocytes Count 0.060 X10^3/uL (0.0-0.0); Mean Corp Hgb Conc 35.2 g/dL (32-36); Mean Corpuscular Volume 91.5 fL (80-94); Mean Platelet Vol. 9.1 fl (6.2-12.0); NRBC Flagged by Analyzer 0 % (0-5); Platelet Count 241 K/mm3 (150-450); RBC Distribution Width CV 14.3 % (11.6-14.6); RBC Distribution Width SD 47.8 fl (35.1-43.9); Red Blood Count 4.47 M/mm3 (4.6-6.2); White Blood Count 8.3 K/mm3 (4.4-11.0)
--- OUTSIDE RECORDS SUMMARY | 2024-11-10 06:58 | XMS RPT_ITS | CCD ---
Author Organization [facility] Team Providers Care Custom Home Installer Name Role Phone ALI, NOAMAN S Unavailable Unavailable ELIGIO, CLIFTON-CHI Unavailable Unavailable DIWAKAR, REINA Unavailable Unavailable REINALDO, SAGAR N Unavailable Unavailable ALI, NOAMAN S Unavailable Unavailable VITEBSKIY, NEEMA Unavailable Unavailable ALI, NOAMAN S Unavailable Unavailable IMCA Unavailable Unavailable ELIGIO, CLIFTON-CHI Unavailable Unavailable REINALDO, SAGAR N Unavailable Unavailable REINALDO, SAGAR N Unavailable Unavailable ELIGIO, CLIFTON-CHI Unavailable Unavailable MENDEZ, MICHELLE Unavailable Unavailable IMCA Unavailable Unavailable ELIGIO, CLIFTON-CHI Unavailable Unavailable ELIGIO, CLIFTON-CHI Unavailable Unavailable MOSTOW, SCOTT N Unavailable Unavailable INDIA, AQUILES Unavailable Unavailab le ELRIFAI, MOHAMED Unavailable Unavailable REINALDO, SAGAR N Unavailable Unavailable SCHWEIKERT, MOISES A Unavailable Unavailable VITEBSKIY, NEMEA Unavailable Unavailable INDIA, AQUILES Unavailable Unavailab le ELRIFAI, MOHAMED Unavailable Unavailable VITEBSKIY, NEEMA ALEKSANDROVICH Unavailable Unavailable REINALDO, SAGAR NABI Unavailable Unavailable REINALDO, SAGAR NABI Unavailable Unavailable DIWAKAR, REINA A Unavailable Unavailable ALI, NOAMAN Unavailable Unavailable VITEBSKIY, NEEMA ALEKSANDROVICH Unavailable Unavailable ALI, NOAMAN Unavailable Unavailable Dr. Clifton Del Valle Chi Primary Care Provider Dr. Clifton Del Valle Chi Referring Provider VENKAT Gates Attending Provider Dr. Clifton Del Valle MD, Chi Primary Care Provider [phone] Dr. Clifton Del Valle MD, Chi Referring Provider Tasha Gates Attending Provider [phone] Otf Jefferson MD Emergency Provider New BEE, Dr. Denton Admit Provider Dr. Bertin Wolff DO Attending Provider [place] BEE, Dr. Denton Other Provider Pascual KESSLER, Dr. Freeman Attending Provider Dr. Clifton Del Valle MD, Chi Attending Provider Eligio, Clifton Chi Primary Care Unavailable Eligio, Clifton Chi Attending Unavailable TereletskyBertin Attending Unavailable TereletskyBertin Admitting Unavailable Eligio, Clifton Chi Primary Care Unavailable Eligio, Clifton Chi Primary Care Unavailable Pete Garner Attending Unavailable TereletsBertin solorzano Admitting Unavailable Eligio, Clifton Chi Primary Care Unavailable TereletskyBertin Consulting Unavailable TereletskyBertin Attending Unavailable TereletskyBertin Admitting Unavailable Eligio, Clifton Chi Primary Care Unavailable Bertin Wolff Consulting Unavailable Bertin Wolff Attending Unavailable Eligio, Clifton Chi Primary Care Unavailable Eligio, Clifton Chi Referring Unavailable Tasha Gates Attending Unavail able Eligio, Clifton Chi Attending Unavailable Eligio, Clifton Chi Referring Unavailable Eligio, Clifton Chi Primary Care Unavailable Allergies Allergy Classification Reported Allergen(s) Allergy Type Date of Onset Reaction(s) Facility (2 sources) aspirin; Translations: [ASPIRIN] Drug Allergy [address] [facility] Repository (2 sources) NO KNOWN ALLERGIES; Translations: [NO KNOWN ALLERGIES] Propensity to adverse reactions (disorder) [facility] Repository Medications Current Medications Medication Drug Class(es) Dates Sig (Normalized) Sig (Original) albuterol 0.83 mg/ml inhalation solution (9 sources) beta2-Adrenergic Agonist Start: 01-25-2019 take 2.5 mg by inhalation every four hours as needed Albuterol Sulfate 2.5 MG/3 ML solution for nebulization Active 2.5 mg INHALATION EVERY 4 HOURS NEEDED as needed for Shortness Of Breath January 25, 2019 12:00am cefdinir 300 mg oral capsule (2 sources) Cephalosporin Antibacterial Start: 07-15-2024 take 1 capsule by mouth twice daily Cefdinir 300 mg capsule Active 300 mg PO TWICE A DAY July 15, 2024 12:00am Start on 07/16/2024 cholecalciferol 0.025 mg oral capsule (18 sources) Vitamin D Start: 05-14-2019 take 1 capsule by mouth once daily Cholecalciferol (Vitamin D3) 25 mcg (1,000 unit) capsule Active 3000 U PO DAILY May 14, 2019 12:04pm Start: 01-25-2019 End: 05-14-2019 Cholecalciferol (Vitamin D3) 1,000 UNIT capsule Discontinued 1 {tbl} PO DAILY January 25, 2019 12:00am May 14, 2019 12:04pm Start: 01-25-2019 End: 05-14-2019 take 1 capsule by mouth once daily Cholecalciferol (Vitamin D3) 25 mcg (1,000 unit) capsule Active 2000 U PO DAILY May 14, 2019 12:04pm digoxin 0.25 mg oral tablet (2 sources) Cardiac Glycoside Start: 07-15-2024 take 1 tablet by mouth once daily Digoxin (Lanoxin) 250 mcg (0.25 mg) tablet Active 250 ug PO DAILY July 15, 2024 12:00am Start on 07/16/2024 24 hr dilTIAZem hydrochloride 120 mg extended release oral capsule (20 sources) Calcium Channel Alex Start: 07-15-2024 take 1 capsule by mouth once daily, then take 1 capsule by mouth every twenty-four hours Diltiazem Hcl (Cardizem Cd) 120 mg capsule,extended release 24hr Active 120 mg PO DAILY July 15, 2024 12:00am Start on 07/16/2024 Start: 05-10-2022 End: 07-15-2024 take 1 capsule by mouth once daily Diltiazem Hcl 240 mg capsule,extended release 24 hr Discontinued 240 mg PO DAILY May 10, 2022 1:00am July 15, 2024 11:11am Start: 02-13-2019 End: 04-20-2021 take 1 capsule by mouth once daily, then take 1 capsule by mouth every twenty-four hours Diltiazem Hcl (Cardizem Cd) 240 mg capsule,extended release 24hr Discontinued 240 mg PO DAILY February 13, 2019 12:00am April 20, 2021 12:28pm Start: 02-03-2019 End: 02-13-2019 take 1 capsule by mouth once daily Diltiazem Hcl 120 MG capsule Discontinued 120 mg PO DAILY February 03, 2019 12:00am March 04, 2019 1:00am February 13, 2019 10:33am Start: 01-25-2019 End: 02-03-2019 take 1 capsule by mouth once daily Diltiazem Hcl 240 MG capsule,extended release 24hr Discontinued 240 mg PO DAILY January 25, 2019 12:00am February 03, 2019 11:15am 30 actuat fluticasone furoate 0.1 mg/actuat / vilanterol 0.025 mg/actuat dry powder inhaler (9 sources) Corticosteroid, beta2-Adrenergic Agonist Start: 01-25-2019 take 1 dose by inhalation once daily Fluticasone Furoate-Vilanterol 1 EACH blister with device Active 1 NMA IH DAILY January 25, 2019 12:00am furosemide 40 mg oral tablet (20 sources) Loop Diuretic Start: 05-10-2022 take 1 tablet by mouth once daily Furosemide 40 mg tablet Active 40 mg PO DAILY May 10, 2022 11:40am Start: 01-25-2019 End: 05-10-2022 take 1 tablet by mouth twice daily Furosemide 40 MG tablet Discontinued 40 mg PO TWICE DAILY 0 January 26, 2019 2:37pm May 10, 2022 11:42am Restart on monday, or until eating and drinking consistently Start: 05-25-2013 End: 06-11-2017 take 1 tablet by mouth once daily Furosemide 40 MG tablet Discontinued 40 mg PO DAILY May 25, 2013 1:00am May 25, 2013 5:55am 24 hr metoprolol succinate 50 mg extended release oral tablet (20 sources) beta-Adrenergic Alex Start: 07-15-2024 Metopr olol Succinate 50 mg Tablet Extended Release 24 Hr Active 150 mg PO TWICE A DAY 180 July 15, 2024 12:00am Start: 04-20-2021 End: 07-15-2024 take 1 tablet by mouth twice daily Metoprolol Tartrate 50 mg tablet Discontinued 50 mg PO TWICE A DAY 180 April 20, 2021 12:27pm July 15, 2024 11:11am Start: 05-14-2019 End: 04-20-2021 take 1 tablet by mouth twice daily Metoprolol Tartrate 25 mg tablet Discontinued 25 mg PO TWICE A DAY May 14, 2019 1:00am April 20, 2021 12:28pm Start: 02-03-2019 End: 03-06-2019 take 1 tablet by mouth twice daily Metoprolol Tartrate 25 MG tablet Discontinued 25 mg PO TWICE A DAY 60 30 February 03, 2019 12:00am March 04, 2019 1:00am March 06, 2019 1:07am Start: 01-25-2019 End: 02-03-2019 take 1 tablet by mouth twice daily Metoprolol Tartrate 50 MG tablet Discontinued 50 mg PO TWICE A DAY January 25, 2019 12:00am February 03, 2019 11:16am pantoprazole 40 mg delayed release oral tablet (9 sources) Proton Pump Inhibitor Start: 01-25-2019 take 1 tablet by mouth twice daily Pantoprazole 40 MG tablet Active 40 mg PO TWICE A DAY January 25, 2019 12:00am microencapsulated potassium chloride 20 meq extended release oral tablet (9 sources) Start: 01-25-2019 take 2 tablets by mouth once daily Potassium Chloride 20 MEQ tablet Active 40 meq PO DAILY January 25, 2019 12:00am Start: 01-25-2019 take 40 mEq by mouth once jean marie y Potassium Chloride Active 40 MEQ PO DAILY January 24, 2019 11:00pm pravastatin sodium 40 mg oral tablet (18 sources) HMG-CoA Reductase Inhibitor Start: 01-25-2019 take 1 tablet by mouth at bedtime Pravastatin 40 MG tablet Active 40 mg PO AT BEDTIME January 25, 2019 12:00am Start: 05-25-2013 End: 05-25-2013 take 1 tablet by mouth once daily Pravastatin Sodium 40 MG tablet Discontinued 40 mg PO DAILY May 25, 2013 1:00am May 25, 2013 5:55am sacubitril 97 mg / valsartan 103 mg oral tablet (5 sources) Angiotensin 2 Receptor Alex Start: 05-10-2022 Sacubitril-Valsartan (Entresto) 97-103 mg tablet Active 1 {tbl} PO TWICE A DAY May 10, 2022 1:00am Vitamins A,C,J-Qfbz-Zbytio (6 sources) Start: 01-25-2019 Vitamins A,C,E -Zinc-Copper Active 1 EACH PO TWICE A DAY January 25, 2019 1:06am Start: 01-25-2019 Vitamins A,C,E -Zinc-Copper Active 1 EACH PO TWICE A DAY January 24, 2019 11:00pm Start: 01-25-2019 Vitamins A,C,E -Zinc-Copper Active 1 EACH PO TWICE A DAY January 25, 2019 12:00am Vitamins A,C,B-Yfvg-Qmwift 1 EACH capsule (3 sources) Start: 01-25-2019 take 1 capsule by mouth twice daily Vitamins A,C,S-Lfdo-Dlpfvy 1 EACH capsule Active 1 NMA PO TWICE A DAY January 25, 2019 12:00am Completed/Discontinued Medications Medication Drug Class(es) Dates Sig (Normalized) Sig (Original) apixaban 5 mg oral tablet (20 sources) Factor Xa Inhibitor Start: 01-25-2019 End: 07-13-2024 take 1 tablet by mouth twice daily Apixaban 5 MG tablet Discontinued 5 mg PO TWICE A DAY 0 January 26, 2019 2:37pm July 13, 2024 11:53am Hold for surgery until after surgery aspirin 81 mg chewable tablet (9 sources) Platelet Aggregation Inhibitor, Nonsteroidal Anti-inflammatory Drug Start: 05-25-2013 End: 05-25-2013 take 1 tablet by mouth once daily Aspirin 81 MG Tab.Chew Discontinued 81 mg PO DAILY@0800 May 25, 2013 1:00am May 25, 2013 5:55am carvedilol 12.5 mg oral tablet (20 sources) alpha-Adrenergic Alex, beta-Adrenergic Alex Start: 06-11-2017 End: 06-21-2017 take 1 tablet by mouth twice daily Carvedilol 12.5 MG tablet Discontinued 12.5 mg PO TWICE A DAY 60 June 11, 2017 1:00am June 21, 2017 11:16am Start: 05-25-2013 End: 05-25-2013 take 1 tablet by mouth once daily Carvedilol 6.25 MG tablet Discontinued 6.25 mg PO DAILY May 25, 2013 1:00am May 25, 2013 5:54am Start: 05-25-2013 End: 06-11-2017 take 1 tablet by mouth twice daily Carvedilol 6.25 MG tablet Discontinued 6.25 mg PO TWICE A DAY May 25, 2013 1:00am June 11, 2017 1:05pm lisinopril 20 mg oral tablet (9 sources) Angiotensin Converting Enzyme Inhibitor Start: 05-25-2013 End: 05-25-2013 take 1 tablet by mouth once daily Lisinopril 20 MG tablet Discontinued 20 mg PO DAILY May 25, 2013 1:00am May 25, 2013 5:54am polysaccharide iron complex 150 mg oral capsule (9 sources) Start: 01-25-2019 End: 02-13-2019 take 1 capsule by mouth once daily at mealtime Polysaccharide Iron Complex 150 MG capsule Discontinued 150 mg PO DAILY WITH MEALS January 25, 2019 12:00am February 13, 2019 9:58am Problems Active Problems Problem Classification Problem Date Documented Da te Episodic/Chronic Alcohol-related disorders (1 source) Alcohol abuse, uncomplicated; Translations: [Alcohol abuse, uncomplicated] Onset: 06-21-2017 Chronic Cardiac dysrhythmias (20 sources) Unspecified atrial fibrillation; Translations: [Atrial fibrillation] Onset: 09-13-2017 07-14-2020 Chronic Chronic obstructive pulmonary disease and bronchiectasis (13 sources) Chronic obstructive pulmonary disease, unspecified; Translations: [Chronic obstructive lung disease] Onset: 06-21-2017 02-05-2019 Chronic Coagulation and hemorrhagic disorders (8 sources) Blood coagulation disorder; Translations: [Coagulation defect, unspecified] 09-14-2021 Chronic Congestive heart failure; nonhypertensive (18 sources) Congestive heart failure; Translations: [Heart failure, unspecified] 02-05-2019 Chronic Coronary atherosclerosis and other heart disease (13 sources) Coronary atherosclerosis; Translations: [Atherosclerotic heart disease of [place] coronary artery without angina pectoris] 02-13-2019 Chronic Deficiency and other anemia (1 source) Iron deficiency anemia secondary to blood loss (chronic); Translations: [Iron deficiency anemia secondary to blood loss (chronic)] Onset: 09-12-2017 Chronic Disorders of lipid metabolism (10 sources) Hyperlipidemia; Translations: [Hyperlipidemia, unspecified] Onset: 09-11-2024 02-05-2019 Chronic E Codes: Fall (8 sources) Fall from bed, initial encounter; Translations: [Fall from bed] 09-14-2021 Episodic Essential hypertension (17 sources) Essential (primary) hypertension; Translations: [Essential hypertension] Onset: 06-21-2017 02-05-2019 Chronic Fluid and electrolyte disorders (19 sources) Acidosis; Translations: [Hypokalemia] Onset: 06-21-2017 02-05-2019 Episodic Gastroduodenal ulcer (1 source) Peptic ulcer, site unspecified, unspecified as acute or chronic, without hemorrhage or perforation; Translations: [Peptic ulcer, site unspecified, unspecified as acute or chronic, without hemorrhage or perforation] Onset: 06-21-2017 Chronic Open wounds of head; neck; and trunk (8 sources) Laceration of left eyebrow; Translations: [Laceration without foreign body of left eyelid and periocular area, initial encounter] 09-14-2021 Episodic Other injuries and conditions due to external causes (8 sources) Closed injury of head; Translations: [Unspecified injury of head, initial encounter] 09-14-2021 Episodic Other lower respiratory disease (9 sources) Respiratory insufficiency; Translations: [Other abnormalities of breathing] 02-05-2019 Episodic Other lower respiratory disease (6 sources) Hypoxia; Translations: [Hypoxemia] 07-13-2024 Episodic Other nervous system disorders (1 source) Encephalopathy, unspecified; Translations: [Encephalopathy, unspecified] Onset: 06-21-2017 Chronic Other nutritional; endocrine; and metabolic disorders (1 source) Other disorders of phosphorus metabolism; Translations: [Other disorders of phosphorus metabolism] Onset: 2017 Chronic Pancreatic disorders (10 sources) Disease of pancreas, unspecified; Translations: [Pancreatitis] Onset: 09-12-2017 11-19-2019 Episodic Pneumonia (except that caused by tuberculosis or sexually transmitted disease) (7 sources) Pneumonia; Translations: [Pneumonia, unspecified organism] Onset: 07-15-2024 07-13-2024 Episodic Unclassified (1 source) Unknown / UNK(Unknown) Onset: 09-14-2017 Unclassified (1 source) Chronic atrial fibrillation, unspecified; Translations: [Chronic atrial fibrillation, unspecified] Onset: 07-24-2024 Past or Other Problems Problem Classification Problem Date Documented Da te Episodic/Chronic Acute posthemorrhagic anemia (1 source) Acute posthemorrhagic anemia; Translations: [Acute posthemorrhagic anemia] Onset: 2017 Episodic Bacterial infection (1 source) Helicobacter pylori [H. pylori] as the cause of diseases classified elsewhere; Translations: [Helicobacter pylori (H. pylori) as the cause of diseases classified elsewhere] Onset: 06-21-2017 Episodic Gastritis and duodenitis (1 source) Gastritis, unspecified, without bleeding; Translations: [Gastritis, unspecified, without bleeding] Onset: 06-21-2017 Episodic Gastrointestinal hemorrhage (4 sources) Chronic or unspecified duodenal ulcer with hemorrhage; Translations: [Gastrointestinal hemorrhage, unspecified] Onset: 06-21-2017 Episodic Other disorders of stomach and duodenum (2 sources) Adult hypertrophic pyloric stenosis; Translations: [Adult hypertrophic pyloric stenosis] Onset: 09-12-2017 Episodic Respiratory failure; insufficiency; arrest (3 sources) Acute respiratory failure, unspecified whether with hypoxia or hypercapnia; Translations: [Acute respiratory failure with hypoxia] Onset: 06-21-2017 Episodic Shock (2 sources) Other shock; Translations: [Shock, unspecified] Onset: 06-21-2017 Episodic Results Test Name Value Interpretation Reference Range Facility Absolute lymphocyte countOrd ered By: Clifton Del Valle on 09-05-2024 Lymphocytes Auto (Unsp spec) [#/Vol] 2.00 10*3/uL 0.83-4.51 [facility] Absolute neutrophil countOrd ered By: Clifton Del Valle on 09-05-2024 Neutrophils (Bld) [#/Vol] 4.8 10*3/uL 2.0-7.7 [facility] Anion gap in Serum or Plasma Ordered By: Clifton Del Valle on 09-05-2024 Anion gap [Moles/Vol] 12 mmol/L 09-05 [facility] Automated lymphocyte count a s percentage of total leukocytesOrdered By: [facility] Eligio on 09-05-2024 Lymphocytes/100 WBC Auto (Unsp spec) 26.0 % - [facility] BUN/creatinine ratioOrdered By: [facility] on 09-05-2024 Urea nitrogen/Creatinine [Mass ratio] 16.4 mg/mg 10-20 [facility] Basophil percentageOrdered B y: [facility] on 09-05-2024 Basophils/100 WBC (Bld) 0.5 % 0-1 [facility] Bilirubin, totalOrdered By: [facility] on 09-05-2024 Bilirubin [Mass/Vol] 0.45 mg/dL 0.00-1.30 [facility] CBC W/Diff, Automatedon 08-22 Absolute Lymph 2.00 X10 3/uL Normal 0.83-4.51 [facility] Comment on above: Performed By: #### M 440.225 #### [facility] [address] [place], [place] [address], [address] Absolute Neut 4.8 X10 3/uL Normal 2.0-7.7 [facility] Comment on above: Performed By: #### M [id number] #### [facility] [address] [place], [address] Basophils/100 WBC (Bld) 0.5 % Normal 0-1 [facility] Comment on above: Performed By: #### M [id number] #### [facility] [address] [place], [address] Eosinophils/100 WBC (Bld) 1.0 % Normal 0-5 [facility] Comment on above: Performed By: #### M [id number] #### [facility] [address] [place], [address] Erythrocyte distribution width (RBC) [Ratio] 14.4 % Normal 11.6-14.6 [facility] Comment on above: Performed By: #### M [id number] #### [facility] [address] [place], [address] Hematocrit (Bld) [Volume fraction] 49.2 % Normal 40-54 [facility] Comment on above: Performed By: #### M [id number] #### [facility] [address] [place], [address] Hemoglobin (Bld) [Mass/Vol] 16.5 g/dL Normal 13.0-16.5 [facility] Comment on above: Performed By: #### M [id number] #### [facility] [address] [place], [address] IG% 0.400 Normal 0.0-0.9 [facility] Comment on above: Result Comment: IG% - Immature Granulocytes (promyelocytes, myelocytes and metamyelocytes) > 1% indicates that a LEFT SHIFT is Present. Performed By: #### M [id number] #### [facility] [address] [place], [address] Lymphocytes/100 WBC (Bld) 26.0 % Normal 19-41 [facility] Comment on above: Performed By: #### M [id number] #### [facility] [address] [place], [address] MCH (RBC) [Entitic mass] 32.3 pg High 27.0-32.0 [facility] Comment on above: Performed By: #### M [id number] #### [facility] [address] [place], [address] MCHC (RBC) [Mass/Vol] 33.5 g/dL Normal 32-36 [facility] Comment on above: Performed By: #### M [id number] #### [facility] [address] [place], [address] MCV (RBC) [Entitic vol] 96.3 fL High 80-94 [facility] Comment on above: Performed By: #### M [id number] #### [facility] [address] [place], [address] Monocytes/100 WBC (Bld) 10.0 % Normal 0-10 [facility] Comment on above: Performed By: #### M [id number] #### [facility] [address] [place], [address] Neutrophils/100 WBC (Bld) 62.1 % Normal 47-70 [facility] Comment on above: Performed By: #### M [id number] #### [facility] [address] [place], [address] Nucleated RBC (Bld) [#/Vol] 0 10*3/uL Normal 0-5 [facility] Comment on above: Performed By: #### M [id number] #### [facility] [address] [place], [address] Platelet mean volume (Bld) [Entitic vol] 9.3 fL Normal 6.2-12.0 [facility] Comment on above: Performed By: #### M [id number] #### [facility] [address] [place], [address] Platelets (Bld) [#/Vol] 309 10*3/uL Normal 150-450 [facility] Comment on above: Performed By: #### M [id number] #### [facility] [address] [place], [address] RBC (Bld) [#/Vol] 5.11 10*6/uL Normal 4.6-6.2 [facility] Comment on above: Performed By: #### M [id number] #### [facility] [address] [place], [address] RDW SD 51.6 fl High 35.1-43.9 [facility] Comment on above: Performed By: #### M [id number] #### [facility] [address] [place], [address] WBC (Bld) [#/Vol] 7.7 10*3/uL Normal 4.4-11.0 [facility] Comment on above: Performed By: #### M [id number] #### [facility] [address] [place], [address] Calculated very low density lipoprotein (VLDL) cholesterol measurementOrdered By: Clifton Del Valle on 09-05-2024 Calculated very low density lipoprotein (VLDL) cholesterol measurement 20 mg/dL 5-40 [facility] Carbon dioxide, total [Moles /volume] in Central venous bloodOrdered By: Clifton Del Valle on 09-05-2024 CO2 [Moles/Vol] 22.5 mmol/L 21.0-32.0 [facility] Chloride assayOrdered By: Joey Del Valle on 09-05-2024 Chloride [Moles/Vol] 104 mmol/L 98-108 [facility] Comprehensive Metabolic Prof ilon 09-05-2024 Albumin [Mass/Vol] 4.2 g/dL Normal 3.4-4.8 [facility] Comment on above: Performed By: #### M [id number] #### [facility] [address] [place], [address] Albumin/Globulin [Mass ratio] 1.7 {ratio} Normal 0.9-2.4 [facility] Comment on above: Performed By: #### M [id number] #### [facility] [address] [place], [address] ALK PHOS 80 U/L Normal 40-129 [facility] Comment on above: Performed By: #### M [id number] #### [facility] [address] [place], [address] ALT [Catalytic activity/Vol] 35 U/L Normal <=46 [facility] Comment on above: Performed By: #### M [id number] #### [facility] [address] [place], [address] AST [Catalytic activity/Vol] 29 U/L Normal <=37 [facility] Comment on above: Performed By: #### M [id number] #### [facility] [address] [place], [address] Bilirubin [Mass/Vol] 0.45 mg/dL Normal 0.00-1.30 [facility] Comment on above: Performed By: #### M [id number] #### [facility] [address] [place], [address] BUN/CRE 16.4 RATIO Normal 10-20 [facility] Comment on above: Performed By: #### M [id number] #### [facility] [address] [place], [address] Calcium [Mass/Vol] 9.1 mg/dL Normal 7.6-11.0 [facility] Comment on above: Performed By: #### M [id number] #### [facility] [address] [place], [address] Chloride [Moles/Vol] 104 mmol/L Normal 98-108 [facility] Comment on above: Performed By: #### M [id number] #### [facility] [address] [place], [address] CO2 [Moles/Vol] 22.5 mmol/L Normal 21.0-32.0 [facility] Comment on above: Performed By: #### M [id number] #### [facility] [address] [place], [address] Creatinine [Mass/Vol] 0.92 mg/dL Normal 0.70-1.20 [facility] Comment on above: Performed By: #### M [id number] #### [facility] [address] [place], [address] GAP 12 Normal 5-15 [facility] Comment on above: Performed By: #### M [id number] #### [facility] [address] [place], [address] GFR/1.73 sq M.predicted among non-blacks MDRD (S/P/Bld) [Vol rate/Area] 84 mL/min/{1.73_m2} Normal >60 [facility] Comment on above: Result Comment: mL/m in/1.73m2 CKD-EPI Creatinine Equation (2020) Performed By: #### M 100.678 #### [facility] [address] [place], [address] Globulin (S) [Mass/Vol] 2.5 g/dL Normal 2.2-4.2 [facility] Comment on above: Performed By: #### M 100.678 #### [facility] [address] [place], [address] Glucose [Mass/Vol] 104 mg/dL High 70-99 [facility] Comment on above: Performed By: #### M 100.678 #### [facility] [address] [place], [address] Potassium [Moles/Vol] 4.3 mmol/L Normal 3.3-5.1 [facility] Comment on above: Performed By: #### M 100.678 #### [facility] [address] [place], [address] Sodium [Moles/Vol] 139 mmol/L Normal 133-145 [facility] Comment on above: Performed By: #### M 100.678 #### [facility] [address] [place], [address] T PROT 6.7 g/dL Normal 5.9-8.4 [facility] Comment on above: Performed By: #### M 100.678 #### [facility] [address] [place], [address] Urea nitrogen [Mass/Vol] 15 mg/dL Normal 4-19 [facility] Comment on above: Performed By: #### M 100.678 #### [facility] [address] [place], [address] Eosinophil percentageOrdered By: Clifton Del Valle on 09-05-2024 Eosinophils/100 WBC (Bld) 1.0 % 0-5 [facility] Erythrocyte distribution wid th ratioOrdered By: Clifton Del Valle on 09-05-2024 Erythrocyte distribution width (RBC) [Ratio] 14.4 % 11.6-14.6 [facility] Erythrocyte distribution wid th standard deviationOrdered By: Clifton Del Valle on 09-05-2024 Erythrocyte distribution width (RBC) [Ratio] 51.6 fl High 35.1-43.9 [facility] Glomerular filtration rate ( GFR) estimation/1.73 sq m using serum, plasma, or whole bOrdered By: Clifton Del Valle on 09-05-2024 GFR/1.73 sq M.predicted among non-blacks MDRD (S/P/Bld) [Vol rate/Area] 84 mL/min/{1.73_m2} >60 [facility] Comment on above: mL/min/1.73m2 CKD-EP I Creatinine Equation (2020) Hematocrit Auto (Bld) [Volum e fraction]Ordered By: Clifton Del Valle on 09-05-2024 Hematocrit (Bld) [Volume fraction] 49.2 % 40-54 [facility] Hemoglobin measurementOrdere d By: Clifton Del Valle on 09-05-2024 Hemoglobin (Bld) [Mass/Vol] 16.5 g/dL 13.0-16.5 [facility] Immature granulocytes/100 WB C Auto (Bld)Ordered By: Clifton Del Valle on 09-05-2024 Immature granulocytes/100 WBC (Bld) 0.400 % 0.0-0.9 [facility] Comment on above: IG% - Immature Granu locytes (promyelocytes, myelocytes and metamyelocytes) > 1% indicates that a LEFT SHIFT is Present. LDL calc ser/plasOrdered By: Clifton Del Valle on 09-05-2024 Cholesterol in LDL [Mass/Vol] 65 mg/dL [facility] Comment on above: Ayaxqidbmq=604-762 m g/dL & Higher Fepj=753 mg/dL or greater Laboratory - Chemistry and C hemistry - challengeOrdered By: Clifton Del Valle on 09-05-2024 AST [Catalytic activity/Vol] 29 U/L <38 [facility] Lipid Profileon 09-05-2024 CHOL:HDL 3.00 Normal [facility] Comment on above: Performed By: #### M 100.678 #### [facility] [address] [place], [place], [id number] Cholesterol [Mass/Vol] 127 mg/dL Normal <=200 [facility] Comment on above: Result Comment: Chol esterol level, Desirable <200 mg/dL Borderline high cholesterol 200-239 mg/dL High cholesterol >=240 mg/dL Recommendations of the NCEP Adult Treatment Panel for the following risk-cutoff thresholds for the [place] population. Performed By: #### M 100.678 #### [facility] [address] [place], [address] Cholesterol in HDL [Mass/Vol] 42 mg/dL Normal [facility] Comment on above: Result Comment: Amaya onal Cholesterol Education Program (NCEP) guidelines: <40 mg/dL: Low HDL-cholesterol (major risk factor for CHD) >= 60 mg/dL: High HDL-cholesterol (negative risk factor for CHD) HDL-cholesterol is affected by a number of factors, e.g. smoking, exercise, hormones, sex and age. Performed By: #### M 100.678 #### [facility] [address] [place], [address] Cholesterol in LDL [Mass/Vol] 65 mg/dL Normal [facility] Comment on above: Result Comment: Bord qtxivd=141-405 mg/dL Higher Ados=430 mg/dL or greater Performed By: #### M [id number] #### [facility] [address] [place], [address] Cholesterol in VLDL [Mass/Vol] 20 mg/dL Normal 5-40 [facility] Comment on above: Performed By: #### M [id number] #### [facility] [address] [place], [address] Triglyceride [Mass/Vol] 98 mg/dL Normal [facility] Comment on above: Result Comment: The drugs N-Acetylcysteine and Metamizole may falsely depress this assay. Normal range: <150 mg/dL Borderline High: 150-199 mg/dL High: 200-499 mg/dL Very High: >500 mg/dL Performed By: #### M [id number] #### [facility] [address] [place], [address] MCV (mean corpuscular volume ) determinationOrdered By: Clifton Del Valle on 09-05-2024 MCV (RBC) [Entitic vol] 96.3 fL High 80-94 [facility] Mean corpuscular hemoglobin (MCH) determinationOrdered By: Clifton Del Valle on 09-05-2024 MCH (RBC) [Entitic mass] 32.3 pg High 27.0-32.0 [facility] Mean corpuscular hemoglobin concentration (MCHC) determinationOrdered By: Clifton Del Valle on 09-05-2024 MCHC (RBC) [Mass/Vol] 33.5 g/dL 32-36 [facility] Mean platelet volume determi nationOrdered By: Clifton Del Valle on 09-05-2024 Platelet mean volume (Bld) [Entitic vol] 9.3 fL 6.2-12.0 [facility] Monocyte percentageOrdered B y: Clifton Del Valle on 09-05-2024 Monocytes/100 WBC (Bld) 10.0 % 0-10 [facility] Neutrophil percentageOrdered By: Clifton Del Valle on 09-05-2024 Neutrophils/100 WBC (Bld) 62.1 % 47-70 [facility] Nucleated red blood cell per centageOrdered By: Clifton Del Valle on 09-05-2024 Nucleated RBC/100 WBC (Bld) [Ratio] 0 % 0-5 [facility] Platelet countOrdered By: Joey Del Valle on 09-05-2024 Platelets (Bld) [#/Vol] 309 10*3/uL 150-450 [facility] Potassium measurement (mass/ volume)Ordered By: Clifton Del Valle 09-05-2024 Potassium (Unsp spec) [Mass/Vol] 4.3 mmol/L 3.3-5.1 [facility] RBC Auto (Bld) [#/Vol]Ordere d By: Clifton Del Valle on 09-05-2024 RBC (Bld) [#/Vol] 5.11 10*6/uL 4.6-6.2 [facility] Screening total cholesterol/ high density lipoprotein (HDL) cholesterol ratioOrdered By: Clifton Del Valle on 09-05-2024 Cholesterol.total/Cho lesterol in HDL [Mass ratio] 3.00 {ratio} [facility] Serum creatinine measurement (mass/volume)Ordered By: Clifton Del Valle on 09-05-2024 Creatinine [Mass/Vol] 0.92 mg/dL 0.70-1.20 [facility] Serum globulin measurementOr dered By: Clifton Del Valle 09-05-2024 Globulin (S) [Mass/Vol] 2.5 g/dL 2.2-4.2 [facility] Serum glucose measurement (m ass/volume)Ordered By: Clifton Vallejook 09-05-2024 Glucose [Mass/Vol] 104 mg/dL High 70-99 [facility] Serum or plasma alanine quesada otransferase (ALT) measurementOrdered By: Clifton Vallejook 09-05-2024 ALT [Catalytic activity/Vol] 35 U/L <47 [facility] Serum or plasma albumin jean urement (mass/volume)Ordered By: Clifton Eligio 09-05-2024 Albumin [Mass/Vol] 4.2 g/dL 3.4-4.8 [facility] Serum or plasma albumin/glob ulin mass ratioOrdered By: Clifton Eligio 09-05-2024 Albumin/Globulin [Mass ratio] 1.7 {ratio} 0.9-2.4 [facility] Serum or plasma alkaline annika sphatase measurementOrdered By: Clifton Del Valle 09-05-2024 ALP [Catalytic activity/Vol] 80 U/L 40-129 [facility] Serum or plasma calcium jean urement (mass/volume)Ordered By: Clifton Del Valle 09-05-2024 Calcium [Mass/Vol] 9.1 mg/dL 7.6-11.0 [facility] Serum or plasma cholesterol in HDL measurement (mass/volume)Ordered By: Clifton Del Valle 09-05-2024 Cholesterol in HDL [Mass/Vol] 42 mg/dL >40 [facility] Comment on above: National Cholesterol Education Program (NCEP) guidelines:<40 mg/dL: Low HDL-cholesterol (major risk factor for CHD)>= 60 mg/dL: High HDL-cholesterol (negative risk factor for CHD)HDL-cholesterol is affected by a number of factors, e.g. smoking, exercise, hormones, sex and age. Serum or plasma cholesterol measurement (mass/volume)Ordered By: Clifton Del Valle 09-05-2024 Cholesterol [Mass/Vol] 127 mg/dL <201 [facility] Comment on above: Cholesterol level, D esirable <200 mg/dLBorderline high cholesterol 200-239 mg/dLHigh cholesterol >=240 mg/dLRecommendations of the NCEP Adult Treatment Panel for the following risk-cutoff thresholds for the [place] population. Serum or plasma urea nitroge n measurement (mass/volume)Ordered By: Clifton Del Valle on 09-05-2024 Urea nitrogen [Mass/Vol] 15 mg/dL 4-19 [facility] Sodium levelOrdered By: Clifton Del Valle on 09-05-2024 Sodium [Moles/Vol] 139 mmol/L 133-145 [facility] TSH DL <= 0.005 mIU/L QnOrde red By: Clifton Del Valle on 09-05-2024 TSH Qn 2.290 uIU/mL 0.300-4.20 0 [facility] Thyroid Stim Hormone (TSH)on 09-05-2024 TSH 2.290 uIU/mL Normal 0.300-4.20 0 [facility] Comment on above: Performed By: #### M 100.678 #### [facility] [address] [place], [place], [address] Total proteinOrdered By: Clifton Del Valle on 09-05-2024 Protein [Mass/Vol] 6.7 g/dL 5.9-8.4 [facility] Triglycerides measurementOrd ered By: Clifton Del Valle on 09-05-2024 Triglyceride [Mass/Vol] 98 mg/dL <199 [facility] Comment on above: The drugs N-Acetylcy steine and Metamizole may falsely depress this assay. Normal range: <150 mg/dLBorderline High: 150-199 mg/dLHigh: 200-499 mg/dLVery High: >500 mg/dL Vitamin D,25 Hydroxyon 09-05 Vitamin D 25-OH 39.7 ng/mL Normal 30-100 [facility] Comment on above: Result Comment: Jazmín min D Status Deficiency: <20 ng/mL (50nmol/L) Insufficiency: 20-30 ng/mL (50-75 nmol/L) Sufficiency: 30-100 ng/mL (75-250 nmol/L) Toxicity: >100 ng/mL (>250 nmol/L) Performed By: #### M 100.678 #### [facility] [address] [place], [address] White blood cell (WBC) count Ordered By: Clifton Del Valle on 09-05-2024 WBC (Bld) [#/Vol] 7.7 10*3/uL 4.4-11.0 [facility] Culture, Blood (WB)on 2024 CUB Blood Cultures x2, f rom two different sites No growth in 5 days. Normal [facility] Comment on above: Performed By: #### M 200.1000 #### [facility] [address] [place], [address] Absolute lymphocyte countOrd ered By: Bertin Wolff on 07-15-2024 Lymphocytes Auto (Unsp spec) [#/Vol] 0.94 10*3/uL 0.83-4.51 [facility] Absolute neutrophil countOrd ered By: Bertin Wolff on 07-15-2024 Neutrophils (Bld) [#/Vol] 7.6 10*3/uL 2.0-7.7 [facility] Automated lymphocyte count a s percentage of total leukocytesOrdered By: Bertin Wolff on 07-15-2024 Lymphocytes/100 WBC Auto (Unsp spec) 9.7 % Low 19-41 [facility] Basophil percentageOrdered B y: Bertin Wolff on 07-15-2024 Basophils/100 WBC (Bld) 0.3 % 0-1 [facility] CBC W/Diff, Automatedon 06-23 Absolute Lymph 0.94 X10 3/uL Normal 0.83-4.51 [facility] Comment on above: Performed By: #### M 100.678 #### [facility] [address] [place], [address] Absolute Neut 7.6 X10 3/uL Normal 2.0-7.7 [facility] Comment on above: Performed By: #### M 100.678 #### [facility] [address] [place], [address] Basophils/100 WBC (Bld) 0.3 % Normal 0-1 [facility] Comment on above: Performed By: #### M 100.678 #### [facility] [address] [place], [address] Eosinophils/100 WBC (Bld) 0.4 % Normal 0-5 [facility] Comment on above: Performed By: #### M 100.678 #### [facility] [address] [place], [address] Erythrocyte distribution width (RBC) [Ratio] 14.5 % Normal 11.6-14.6 [facility] Comment on above: Performed By: #### M 100.678 #### [facility] [address] [place], [address] Hematocrit (Bld) [Volume fraction] 42.1 % Normal 40-54 [facility] Comment on above: Performed By: #### M 100.678 #### [facility] [address] [place], [address] Hemoglobin (Bld) [Mass/Vol] 14.3 g/dL Normal 13.0-16.5 [facility] Comment on above: Performed By: #### M 100.678 #### [facility] [address] [place], [address] IG% 0.500 Normal 0.0-0.9 [facility] Comment on above: Result Comment: IG% - Immature Granulocytes (promyelocytes, myelocytes and metamyelocytes) > 1% indicates that a LEFT SHIFT is Present. Performed By: #### M 100.678 #### [facility] [address] [place], [address] Lymphocytes/100 WBC (Bld) 9.7 % Low 19-41 [facility] Comment on above: Performed By: #### M 100.678 #### [facility] [address] [place], [address] MCH (RBC) [Entitic mass] 32.1 pg High 27.0-32.0 [facility] Comment on above: Performed By: #### M 100.678 #### [facility] [address] [place], [address] MCHC (RBC) [Mass/Vol] 34.0 g/dL Normal 32-36 [facility] Comment on above: Performed By: #### M 100.678 #### [facility] [address] [place], [address] MCV (RBC) [Entitic vol] 94.4 fL High 80-94 [facility] Comment on above: Performed By: #### M 100.678 #### [facility] [address] [place], [address] Monocytes/100 WBC (Bld) 11.0 % High 0-10 [facility] Comment on above: Performed By: #### M 100.678 #### [facility] [address] [place], [address] Neutrophils/100 WBC (Bld) 78.1 % High 47-70 [facility] Comment on above: Performed By: #### M 100.678 #### [facility] [address] [place], [address] Nucleated RBC (Bld) [#/Vol] 0 10*3/uL Normal 0-5 [facility] Comment on above: Performed By: #### M 100.678 #### [facility] [address] [place], [address] Platelet mean volume (Bld) [Entitic vol] 9.2 fL Normal 6.2-12.0 [facility] Comment on above: Performed By: #### M 100.678 #### [facility] [address] [place], [address] Platelets (Bld) [#/Vol] 218 10*3/uL Normal 150-450 [facility] Comment on above: Performed By: #### M 100.678 #### [facility] [address] [place], [address] RBC (Bld) [#/Vol] 4.46 10*6/uL Low 4.6-6.2 [facility] Comment on above: Performed By: #### M 100.678 #### [facility] [address] [place], [address] RDW SD 50.4 fl High 35.1-43.9 [facility] Comment on above: Performed By: #### M 100.678 #### [facility] [address] [place], [address] WBC (Bld) [#/Vol] 9.7 10*3/uL Normal 4.4-11.0 [facility] Comment on above: Performed By: #### M 100.678 #### [facility] [address] [place], [address] Discharge Instructionon 06-23 Discharge Instruction [facility] Medical Records Department [address] [place] [address] Instructions for Home/Discharge Instructions 07/15/24 1108 MR#: [id number] Acct: [id number] Name: CRISTINA JEFFREY Rep #: [id number] : 1945 79 From: Bertin Wolff DO PCP: Dr. Clifton Del Valle MD Status:ADM IN Discharge Instructions Diet Discharge Diet: No restrictions DC O2, CPAP, BIPAP needs Home O2 Discharge instructions: No Dressing / Incision Discharge Activity: Return to Normal Activity Weight Bearing Status: Full weight bearing Follow Up Care Test Results: Test results from this visit will be discussed in further detail at your follow-up appointment, if applicable. Discharge Plan Admission Admit Date/Time: 07/13/24 08:27 Primary Reason for Your Visit: Pneumonia, A-fib with RVR Attending Provider: Bertin Wolff Primary Care Provider: Clifton Del Valle Chi Discharge Orders/Prescriptions Prescriptions: New metoprolol succinate 50 mg Tablet Extended Release 24 Hr 150 mg PO BID Qty: 180 0RF diltiazem HCl [Cardizem CD] 120 mg capsule,extended release 24hr 120 mg PO DAILY Qty: 30 0RF Rx Instructions: Start on 07/16/2024 digoxin [Lanoxin] 250 mcg (0.25 mg) tablet 250 mcg PO DAILY Qty: 30 0RF Rx Instructions: Start on 07/16/2024 cefdinir 300 mg capsule 300 mg PO BID Qty: 10 0RF Rx Instructions: Start on 07/16/2024 Continued Entresto 97-103 mg tablet 1 tab PO BID furosemide 40 mg tablet 40 mg PO DAILY albuterol sulfate 2.5 MG/3 ML solution for nebulization 2.5 mg inhalation Q4H PRN PRN (Reason: Shortness Of Breath) pravastatin 40 MG tablet 40 mg PO QHS potassium chloride 20 MEQ tablet 40 meq PO DAILY pantoprazole 40 MG tablet 40 mg PO BID vitamins A,C,X-hhfd-ysvgen 1 EACH capsule 1 ea PO BID fluticasone furoate-vilanterol 1 EACH blister with device 1 ea IH DAILY cholecalciferol (vitamin D3) 25 mcg (1,000 unit) capsule 3,000 unit PO DAILY apixaban 5 MG tablet 5 mg PO BID Discontinued metoprolol tartrate 50 mg tablet 50 mg PO BID Qty: 180 3RF diltiazem HCl 240 mg capsule,extended release 24 hr 240 mg PO DAILY Referrals / Follow Up: Clifton Del Valle Chi, MD [Primary Care Provider] - In 1 Week Disposition Disposition (needs filled in before D/C Order can be placed): Home, Self Care 07/15/24 1118 Bertin Wolff DO CC: Dr. Clifton Del Valle MD Signed Normal [facility] Electrocardiogram reportOrde red By: Pete Garner on 07-15-2024 EKG study [facility] [address] [place] [address] 12 Lead EKG 07/13/24 0650 MR#: [id number] Acct: [id number] Name: CRISTINA JEFFREY Rep #:[id number] : 1945 79 From: Pete Garner MD Attending Dr: Dr. Bertin Wolff DO Status: ADM IN Ordering Dr: Otf Jefferson MD Date: Location: PCU Sex: M C Admitted: 07/13/24 Test Reason : Blood Pressure : */* mmHG Vent. Rate : 172 BPM Atrial Rate : 178 BPM P-R Int : * ms QRS Dur : 72 ms QT Int : 236 ms P-R-T Axes : * 72 264 degrees QTcB Int : 399 ms Critical Test Result: High HR Atrial fibrillation ST & T wave abnormality, consider inferolateral ischemia Abnormal ECG Confirmed by PASCUAL KESSLER, PETE ([id number]), editor magazine DARYN KELLER ([id number]) on 58:13:31 AM Referred By: RON Confirmed By: PETE GARNER MD 07/15/24812 Date _ Pete Garner MD CC: Dr. Otf Jefferson MD; Dr. Bertin Wolff DO; Dr. Clifton Del Valle MD ~ Signed [facility] Work Phone: Eosinophil percentageOrdered By: Bertin Wolff on 07-15-2024 Eosinophils/100 WBC (Bld) 0.4 % 0-5 [facility] Erythrocyte distribution wid th ratioOrdered By: Bertin Wolff on 07-15-2024 Erythrocyte distribution width (RBC) [Ratio] 14.5 % 11.6-14.6 [facility] Erythrocyte distribution wid th standard deviationOrdered By: Bertin Wolff on 07-15-2024 Erythrocyte distribution width (RBC) [Entitic vol] 50.4 fL High 35.1-43.9 [facility] Erythrocyte distribution width (RBC) [Ratio] 50.4 fl High 35.1-43.9 [facility] Hematocrit Auto (Bld) [Volum e fraction]Ordered By: Bertin Wolff on 07-15-2024 Hematocrit (Bld) [Volume fraction] 42.1 % 40-54 [facility] Hemoglobin measurementOrdere d By: Bertin Wolff on 07-15-2024 Hemoglobin (Bld) [Mass/Vol] 14.3 g/dL 13.0-16.5 [facility] Immature granulocytes/100 WB C Auto (Bld)Ordered By: Bertin Wolff on 07-15-2024 Immature granulocytes/100 WBC (Bld) 0.500 % 0.0-0.9 [facility] Comment on above: IG% - Immature Granu locytes (promyelocytes, myelocytes and metamyelocytes) > 1% indicates that a LEFT SHIFT is Present. Lymphocytes Auto (Unsp spec) [#/Vol]Ordered By: Bertin Wolff on 07-15-2024 Lymphocytes (Bld) [#/Vol] 0.94 10*3/uL 0.83-4.51 [facility] Lymphocytes/100 WBC Auto (Un sp spec)Ordered By: Bertin Wolff on 07-15-2024 Lymphocytes/100 WBC (Bld) 9.7 % Low 19-41 [facility] MCV (mean corpuscular volume ) determinationOrdered By: Bertin Wolff on 07-15-2024 MCV (RBC) [Entitic vol] 94.4 fL High 80-94 [facility] Mean corpuscular hemoglobin (MCH) determinationOrdered By: Bertin Wolff on 07-15-2024 MCH (RBC) [Entitic mass] 32.1 pg High 27.0-32.0 [facility] Mean corpuscular hemoglobin concentration (MCHC) determinationOrdered By: Bertin Wolff on 07-15-2024 MCHC (RBC) [Mass/Vol] 34.0 g/dL 32-36 [facility] Mean platelet volume determi nationOrdered By: Bertin Wolff on 07-15-2024 Platelet mean volume (Bld) [Entitic vol] 9.2 fL 6.2-12.0 [facility] Monocyte percentageOrdered B y: Bertin Wolff on 07-15-2024 Monocytes/100 WBC (Bld) 11.0 % High 0-10 [facility] Neutrophil percentageOrdered By: Bertin Wolff on 07-15-2024 Neutrophils/100 WBC (Bld) 78.1 % High 47-70 [facility] Nucleated red blood cell per centageOrdered By: Bertin Wolff on 07-15-2024 Nucleated RBC/100 WBC (Bld) [Ratio] 0 % 0-5 [facility] Platelet countOrdered By: Mariana Wolff on 07-15-2024 Platelets (Bld) [#/Vol] 218 10*3/uL 150-450 [facility] RBC Auto (Bld) [#/Vol]Ordere d By: Bertin Wolff on 07-15-2024 RBC (Bld) [#/Vol] 4.46 10*6/uL Low 4.6-6.2 [facility] White blood cell (WBC) count Ordered By: Bertin Wolff on 07-15-2024 WBC (Bld) [#/Vol] 9.7 10*3/uL 4.4-11.0 [facility] Anion gap in Serum or Plasma Ordered By: Bertin Wolff on 07-14-2024 Anion gap [Moles/Vol] 11 mmol/L 09-05 [facility] BUN/creatinine ratioOrdered By: Bertin Wolff on 07-14-2024 Urea nitrogen/Creatinine [Mass ratio] 15.6 mg/mg 02-10 [facility] Basic Metabolic Profile (BMP )on 07-14-2024 BUN/CRE 15.6 RATIO Normal 02-10 [facility] Comment on above: Performed By: #### M 200.1000 #### [facility] [address] [place], [address] Calcium [Mass/Vol] 8.5 mg/dL Normal 7.6-11.0 [facility] Comment on above: Performed By: #### M 200.1000 #### [facility] [address] [place], [address] Chloride [Moles/Vol] 106 mmol/L Normal 98-108 [facility] Comment on above: Performed By: #### M 200.1000 #### [facility] [address] [place], [address] CO2 [Moles/Vol] 20.5 mmol/L Low 21.0-32.0 [facility] Comment on above: Performed By: #### M 200.1000 #### [facility] [address] [place], [address] Creatinine [Mass/Vol] 0.92 mg/dL Normal 0.70-1.20 [facility] Comment on above: Performed By: #### M 200.1000 #### [facility] [address] [place], [address] ECRCL 74.79 ml/min Normal 50-250 [facility] Comment on above: Performed By: #### M 200.1000 #### [facility] [address] [place], [address] GAP 11 Normal 5-15 [facility] Comment on above: Performed By: #### M 200.1000 #### [facility] [address] [place], [address] GFR/1.73 sq M.predicted among non-blacks MDRD (S/P/Bld) [Vol rate/Area] 85 mL/min/{1.73_m2} Normal >60 [facility] Comment on above: Result Comment: mL/m in/1.73m2 CKD-EPI Creatinine Equation (2020) Performed By: #### M 200.1000 #### [facility] [address] [place], [address] Glucose [Mass/Vol] 111 mg/dL High 70-99 [facility] Comment on above: Performed By: #### M 200.1000 #### [facility] [address] [place], [address] Potassium [Moles/Vol] 4.0 mmol/L Normal 3.3-5.1 [facility] Comment on above: Result Comment: Hemo lysis present, Results??could be affected. ?? Performed By: #### M 200.1000 #### [facility] [address] [place], [address] Sodium [Moles/Vol] 138 mmol/L Normal 133-145 [facility] [facility] Comment on above: Performed By: #### M 200.1000 #### [facility] [address] [place], [address] Urea nitrogen [Mass/Vol] 14 mg/dL Normal 4-19 [facility] Comment on above: Performed By: #### M 200.1000 #### [facility] [address] [place], [address] CBC W/Diff, Automatedon 03-2 -2024 Absolute Lymph 1.37 X10 3/uL Normal 0.83-4.51 [facility] Comment on above: Performed By: #### M 100.678 #### [facility] [address] [place], [address] Absolute Neut 11.9 X10 3/uL High 2.0-7.7 [facility] Comment on above: Performed By: #### M 100.678 #### [facility] [address] [place], [address] Basophils/100 WBC (Bld) 0.2 % Normal 0-1 [facility] Comment on above: Performed By: #### M 100.678 #### [facility] [address] [place], [address] Eosinophils/100 WBC (Bld) 0.3 % Normal 0-5 [facility] Comment on above: Performed By: #### M 100.678 #### [facility] [address] [place], [address] Erythrocyte distribution width (RBC) [Ratio] 14.8 % High 11.6-14.6 [facility] Comment on above: Performed By: #### M 100.678 #### [facility] [address] [place], [address] Hematocrit (Bld) [Volume fraction] 41.5 % Normal 40-54 [facility] Comment on above: Performed By: #### M 100.678 #### [facility] [address] [place], [address] Hemoglobin (Bld) [Mass/Vol] 14.2 g/dL Normal 13.0-16.5 [facility] Comment on above: Performed By: #### M 100.678 #### [facility] [address] [place], [address] IG% 0.300 Normal 0.0-0.9 [facility] Comment on above: Result Comment: IG% - Immature Granulocytes (promyelocytes, myelocytes and metamyelocytes) > 1% indicates that a LEFT SHIFT is Present. Performed By: #### M 100.678 #### [facility] [address] [place], [address] Lymphocytes/100 WBC (Bld) 9.4 % Low 19-41 [facility] Comment on above: Performed By: #### M 100.678 #### [facility] [address] [place], [address] MCH (RBC) [Entitic mass] 32.6 pg High 27.0-32.0 [facility] Comment on above: Performed By: #### M 100.678 #### [facility] [address] [place], [address] MCHC (RBC) [Mass/Vol] 34.2 g/dL Normal 32-36 [facility] Comment on above: Performed By: #### M 100.678 #### [facility] [address] [place], [address] MCV (RBC) [Entitic vol] 95.4 fL High 80-94 [facility] Comment on above: Performed By: #### M 100.678 #### [facility] [address] [place], [address] Monocytes/100 WBC (Bld) 8.1 % Normal 0-10 [facility] Comment on above: Performed By: #### M 100.678 #### [facility] [address] [place], [address] Neutrophils/100 WBC (Bld) 81.7 % High 47-70 [facility] Comment on above: Performed By: #### M 100.678 #### [facility] [address] [place], [address] Nucleated RBC (Bld) [#/Vol] 0 10*3/uL Normal 0-5 [facility] Comment on above: Performed By: #### M 100.678 #### [facility] [address] [place], [address] Platelet mean volume (Bld) [Entitic vol] 9.7 fL Normal 6.2-12.0 [facility] Comment on above: Performed By: #### M 100.678 #### [facility] [address] [place], [address] Platelets (Bld) [#/Vol] 238 10*3/uL Normal 150-450 [facility] Comment on above: Performed By: #### M 100.678 #### [facility] [address] [place], [address] RBC (Bld) [#/Vol] 4.35 10*6/uL Low 4.6-6.2 [facility] Comment on above: Performed By: #### M 100.678 #### [facility] [address] [place], [address] RDW SD 52.5 fl High 35.1-43.9 [facility] Comment on above: Performed By: #### M 100.678 #### [facility] [address] [place], [address] WBC (Bld) [#/Vol] 14.5 10*3/uL High 4.4-11.0 [facility] Comment on above: Performed By: #### M 100.678 #### [facility] [address] [place], [place], [address] Carbon dioxide, total [Moles /volume] in Central venous bloodOrdered By: Bertin Wolff on 07-14-2024 CO2 [Moles/Vol] 20.5 mmol/L Low 21.0-32.0 [facility] Chest 1 View (Portable)on Chest 1 View (Portable) [facility] Imaging Services [address] [place] [address] Chest 1 View (Portable) MR#: [id number] Acct: [id number] Name: CRISTINA JEFFREY Rep #: [id number] : 1945 M 79 From: Afshin Conner PCP: Dr. Clifton Del Valle MD Status: ADM IN Study: Chest 1 View (Portable) Date of Exam: 07/14/24 Exam# [id number] Ordering Dr: Bertin Wolff DO PROCEDURE: CHEST 1 VIEW (PORTABLE) 07/14/2024 REASON FOR EXAM: PNEUMONIA TECHNIQUE: Frontal view of the chest. COMPARISON: Chest x-ray 07/13/2024. RAD/Chest 1 View (Portable) IMPRESSION: Prominent right upper lobe infiltrate is again seen, perhaps slightly diminished since the prior study. This is concerning for the presence of pneumonitis. No new or worsened pneumonic process is seen. No evidence of pulmonary edema. No pleural effusion or pneumothorax is seen. The cardiomediastinal silhouette is stable. Reading Location: [address] CC: Dr. Bertin Wolff DO; Dr. Clifton Del Valle MD [employer]: Signed Normal [facility] Chloride assayOrdered By: Mariana Wolff on 07-14-2024 Chloride [Moles/Vol] 106 mmol/L 98-108 [facility] Estimation of creatinine marvel aranceOrdered By: Bertin Wolff on 07-14-2024 Estimated Creatinine Clearance Calc 74.79 ml/min 50-250 [facility] GFR/1.73 sq M.predicted erlinda g non-blacks MDRD (S/P/Bld) [Vol rate/Area]Ordered By: Bertin Wolff on 07-14-2024 Estimated GFR (MDRD) Non-Af Amer 85 >60 [facility] Comment on above: mL/min/1.73m2 CKD-EP I Creatinine Equation (2020) Glomerular filtration rate ( GFR) estimation/1.73 sq m using serum, plasma, or whole bOrdered By: Bertin Wolff on 07-14-2024 GFR/1.73 sq M.predicted among non-blacks MDRD (S/P/Bld) [Vol rate/Area] 85 mL/min/{1.73_m2} >60 [facility] Comment on above: mL/min/1.73m2 CKD-EP I Creatinine Equation (2020) Potassium (Unsp spec) [Mass/ Vol]Ordered By: Bertin Wolff on 07-14-2024 Potassium [Moles/Vol] 4.0 mmol/L 3.3-5.1 [facility] Comment on above: Hemolysis present, R esults could be affected. Potassium measurement (mass/ volume)Ordered By: Bertin Wolff on 07-14-2024 Potassium (Unsp spec) [Mass/Vol] 4.0 mmol/L 3.3-5.1 [facility] Comment on above: Hemolysis present, R esults could be affected. Serum creatinine measurement (mass/volume)Ordered By: Bertin Wolff on 07-14-2024 Creatinine [Mass/Vol] 0.92 mg/dL 0.70-1.20 [facility] Serum glucose measurement (m ass/volume)Ordered By: Bertin Wolff on 07-14-2024 Glucose [Mass/Vol] 111 mg/dL High 70-99 [facility] Serum or plasma calcium jean urement (mass/volume)Ordered By: Bertin Wolff on 07-14-2024 Calcium [Mass/Vol] 8.5 mg/dL 7.6-11.0 [facility] Serum or plasma urea nitroge n measurement (mass/volume)Ordered By: Bertin Wolff on 07-14-2024 Urea nitrogen [Mass/Vol] 14 mg/dL 4-19 [facility] Sodium levelOrdered By: Bertin Wolff on 07-14-2024 Sodium [Moles/Vol] 138 mmol/L 133-145 [facility] 12 Lead EKGon 07-13-2024 12 Lead E[address] [facility] Cardiovascular Services [address] [place] [address] 12 Lead EKG 07/13/24 0650 MR#: [id number] Acct: [id number] Name: CRISTINA JEFFREY Rep #: [id number] : 1945 79 From: Pete Garner MD Attending Dr: Dr. Bertin Wolff DO Status: A DM IN Ordering Dr: Otf Jefferson MD Date: 07/13/24 Location: [facility] Sex: M C Admitted: 07/13/24 Test Reason : Blood Pressure : */* mmHG Vent. Rate : 172 BPM Atrial Rate : 178 BPM P-R Int : * ms QRS Dur : 72 ms QT Int : 236 ms P-R-T Axes : * 72 264 degrees QTcB Int : 399 ms Critical Test Result: High HR Atrial fibrillation ST T wave abnormality, consider inferolateral ischemia Abnormal ECG Confirmed by PETE GARNER MD ([id number]), editor magazine DARYN KELLER ([id number]) on 07/15/2024 8:13:31 AM Referred By: RON Confirmed By: PETE GARNER MD 07/15/24 0813 Date Pete Garner MD CC: Dr. Otf Jefferson MD; Dr. Bertin Wolff DO; Dr. Clifton Del Valle MD Signed Normal [facility] Absolute neutrophil countOrd ered By: Otf Jefferson on 07-13-2024 Neutrophils (Bld) [#/Vol] 12.0 10*3/uL High 2.0-7.7 [facility] Anion gap in Serum or Plasma Ordered By: Otf Jefferson on 07-13-2024 Anion gap [Moles/Vol] 13 mmol/L 5-15 [facility] BUN/creatinine ratioOrdered By: Otf Jefferson on 07-13-2024 Urea nitrogen/Creatinine [Mass ratio] 12.7 mg/mg - [facility] Basic Metabolic Profile (BMP )on 07-13-2024 BUN/CRE 12.7 RATIO Normal - [facility] Comment on above: Performed By: #### M 100.678 #### [facility] [address] [place], [address] Calcium [Mass/Vol] 9.0 mg/dL Normal 7.6-11.0 [facility] Comment on above: Performed By: #### M 100.678 #### [facility] [address] [place], [address] Chloride [Moles/Vol] 101 mmol/L Normal 98-108 [facility] Comment on above: Performed By: #### M 100.678 #### [facility] [address] [place], [address] CO2 [Moles/Vol] 23.2 mmol/L Normal 21.0-32.0 [facility] Comment on above: Performed By: #### M 100.678 #### [facility] [address] [place], [address] Creatinine [Mass/Vol] 1.10 mg/dL Normal 0.70-1.20 [facility] Comment on above: Performed By: #### M 100.678 #### [facility] [address] [place], [address] ECRCL 63.60 ml/min Normal 50-250 [facility] Comment on above: Performed By: #### M 100.678 #### [facility] [address] [place], [address] GAP 13 Normal 5-15 [facility] Comment on above: Performed By: #### M 100.678 #### [facility] [address] [place], [address] GFR/1.73 sq M.predicted among non-blacks MDRD (S/P/Bld) [Vol rate/Area] 68 mL/min/{1.73_m2} Normal >60 [facility] Comment on above: Result Comment: mL/m in/1.73m2 CKD-EPI Creatinine Equation (2020) Performed By: #### M 100.678 #### [facility] [address] [place], [address] Glucose [Mass/Vol] 122 mg/dL High 70-99 [facility] Comment on above: Performed By: #### M 100.678 #### [facility] [address] [place], [address] Potassium [Moles/Vol] 4.6 mmol/L Normal 3.3-5.1 [facility] Comment on above: Performed By: #### M 100.678 #### [facility] [address] [place], [address] Sodium [Moles/Vol] 137 mmol/L Normal 133-145 [facility] Comment on above: Performed By: #### M 100.678 #### [facility] [address] [place], [address] Urea nitrogen [Mass/Vol] 14 mg/dL Normal 4-19 [facility] Comment on above: Performed By: #### M 100.678 #### [facility] [address] [place], [address] Basophil percentageOrdered B y: Otf Jefferson on 07-13-2024 Basophils/100 WBC (Bld) 0.1 % 0-1 [facility] Blood cultureOrdered By: Kacy Jefferson on 07-13-2024 Bacteria identified Cx Nom (Bld) No growth in 5 days. [facility] CBC W/Diff, Automatedon 06-23 Absolute Lymph 0.65 X10 3/uL Low 0.83-4.51 [facility] Comment on above: Performed By: #### M 100.678 #### [facility] [address] [place], [address] Absolute Neut 12.0 X10 3/uL High 2.0-7.7 [facility] Comment on above: Performed By: #### M 100.678 #### [facility] [address] [place], [address] Basophils/100 WBC (Bld) 0.1 % Normal 0-1 [facility] Comment on above: Performed By: #### M 100.678 #### [facility] [address] [place], [address] Eosinophils/100 WBC (Bld) 0.1 % Normal 0-5 [facility] Comment on above: Performed By: #### M 100.678 #### [facility] [address] [place], [address] Erythrocyte distribution width (RBC) [Ratio] 14.2 % Normal 11.6-14.6 [facility] Comment on above: Performed By: #### M 100.678 #### [facility] [address] [place], [address] Hematocrit (Bld) [Volume fraction] 49.2 % Normal 40-54 [facility] Comment on above: Performed By: #### M 100.678 #### [facility] [address] [place], [address] Hemoglobin (Bld) [Mass/Vol] 16.9 g/dL High 13.0-16.5 [facility] Comment on above: Performed By: #### M 100.678 #### [facility] [address] [place], [address] IG% 0.400 Normal 0.0-0.9 [facility] Comment on above: Result Comment: IG% - Immature Granulocytes (promyelocytes, myelocytes and metamyelocytes) > 1% indicates that a LEFT SHIFT is Present. Performed By: #### M 100.678 #### [facility] [address] [place], [address] Lymphocytes/100 WBC (Bld) 4.8 % Low 19-41 [facility] Comment on above: Performed By: #### M 100.678 #### [facility] [address] [place], [address] MCH (RBC) [Entitic mass] 32.7 pg High 27.0-32.0 [facility] Comment on above: Performed By: #### M 100.678 #### [facility] [address] [place], [address] MCHC (RBC) [Mass/Vol] 34.3 g/dL Normal 32-36 [facility] Comment on above: Performed By: #### M 100.678 #### [facility] [address] [place], [address] MCV (RBC) [Entitic vol] 95.2 fL High 80-94 [facility] Comment on above: Performed By: #### M 100.678 #### [facility] [address] [place], [address] Monocytes/100 WBC (Bld) 5.5 % Normal 0-10 [facility] Comment on above: Performed By: #### M 100.678 #### [facility] [address] [place], [address] Neutrophils/100 WBC (Bld) 89.1 % High 47-70 [facility] Comment on above: Performed By: #### M 100.678 #### [facility] [address] [place], [address] Nucleated RBC (Bld) [#/Vol] 0 10*3/uL Normal 0-5 [facility] Comment on above: Performed By: #### M 100.678 #### [facility] [address] [place], [address] Platelet mean volume (Bld) [Entitic vol] 8.8 fL Normal 6.2-12.0 [facility] Comment on above: Performed By: #### M 100.678 #### [facility] [address] [place], [address] Platelets (Bld) [#/Vol] 263 10*3/uL Normal 150-450 [facility] Comment on above: Performed By: #### M 100.678 #### [facility] [address] [place], [address] RBC (Bld) [#/Vol] 5.17 10*6/uL Normal 4.6-6.2 [facility] Comment on above: Performed By: #### M 100.678 #### [facility] [address] [place], [address] RDW SD 49.3 fl High 35.1-43.9 [facility] Comment on above: Performed By: #### M 100.678 #### [facility] [address] [place], [address] WBC (Bld) [#/Vol] 13.4 10*3/uL High 4.4-11.0 [facility] Comment on above: Performed By: #### M 100.678 #### [facility] [address] [place], [address] Carbon dioxide, total [Moles /volume] in Central venous bloodOrdered By: Otf Jefferson on 07-13-2024 CO2 [Moles/Vol] 23.2 mmol/L 21.0-32.0 [facility] Chest 1 View (Portable)on Chest 1 View (Portable) [facility] Imaging Services [address] [place] [address] Chest 1 View (Portable) MR#: [id number] Acct: [id number] Name: CRISTINA JEFFREY Rep #: [id number] : 1945 M 79 From: oMises España MD PCP: Dr. Clifton Del Valle MD Status: REG ER Study: Chest 1 View (Portable) Date of Exam: 07/13/24 Exam# [id number] Ordering Dr: Otf Jefferson MD PROCEDURE: CHEST 1 VIEW (PORTABLE) 07/13/2024 REASON FOR EXAM: SHORTNESS OF BREATH TECHNIQUE: Frontal view of the chest. 2 images to include the entire chest COMPARISON: 01/30/2019 FINDINGS: Patchy multifocal airspace opacity mostly at the right mid to lower lung. The left lung is clear. No evidence of pleural effusion. The cardiac silhouette is at the upper limits for size. RAD/Chest 1 View (Portable) IMPRESSION: Patchy multifocal airspace opacity mostly at the right mid to lower lung concerning for inflammatory/infectious process, correlate for pneumonia. Reading Location: [facility] CC: Dr. Otf Jefferson MD; Dr. Clifton Del Valle MD [employer]: Signed Normal [facility] Chloride assayOrdered By: Saritha Jefferson on 07-13-2024 Chloride [Moles/Vol] 101 mmol/L 98-108 [facility] Echo Completeon 07-13-2024 Echo Complete [facility] Cardiovascular Services [address] [place] [address] Echo Complete 07/13/24 1102 MR#: [id number] Acct: [id number] Name: CRISTINA JEFFREY Rep #: [id number] : 1945 79 From: Pete Garner MD Attending Dr: Dr. Bertin Wolff DO Status: A DM IN Ordering Dr: Bertin Wolff DO Date: 07/13/24 Location: U Sex: M C Admitted: 07/13/24 Reason For Study Reason For Study: A. fib Procedure This was a 2D Doppler, Color Flow transthoracic echocardiogram. Exam performed portable in patient room. Left Ventricle Normal LV size. Left ventricular systolic function is normal. The left ventricular ejection fraction is 55 %. No regional wall motion abnormalities noted. Right Ventricle Normal RV size. Normal systolic function. Atria The left atrium is mildly enlarged. Normal right atrium. Mitral Valve Normal mitral valve. Tricuspid Valve Normal tricuspid valve. Mild (1+) tricuspid valve insufficiency. Pulmonary artery systolic pressure is 26 mmHg. Aortic Valve Trisinus/trileaflet aortic valve. Great Vessels Normal sized aortic root. Pericardium/Pleural No pericardial effusion. MMode/2D Measurements Calculations LVIDd: 4.0 cm IVSd: 1.3 cm Ao root diam: 3.2 cm LVIDs: 3.4 cm LVPWd: 1.1 cm RVDd: 4.0 cm FS: 14.7 % LAV(MOD-bp): 44.7 ml LVAd ap4: 16.7 cm2 LVAd ap2: 22.4 cm2 LAV(MOD-bp) Indexed: 20.7 ml/m2 LVLd ap4: 6.3 cm LVLd ap2: 6.4 cm LAV(MOD-sp2): 24.9 ml EDV(MOD-sp4): 38.3 ml EDV(MOD-sp2): 66.2 ml LAV(MOD-sp4): 63.0 ml EDV(sp4-el): 37.7 ml EDV(sp2-el): 66.8 ml LVAs ap4: 9.8 cm2 LVAs ap2: 13.8 cm2 LVLs ap4: 5.8 cm LVLs ap2: 6.4 cm ESV(MOD-sp4): 15.4 ml ESV(MOD-sp2): 26.8 ml ESV(sp4-el): 13.8 ml ESV(sp2-el): 25.3 ml EF(MOD-sp4): 59.7 % EF(MOD-sp2): 59.6 % EF(sp4-el): 63.3 % SV(MOD-sp4): 22.9 ml SV(MOD-sp2): 39.5 ml SV(sp4-el): 23.9 ml SI(MOD-sp4): 10.6 ml/m2 SI(MOD-sp2): 18.3 ml/m2 LA A4 area: 23.3 cm2 LA dimension(2D): 2.9 cm RA A4 area: 18.8 cm2 Doppler Measurements Calculations MV E max oneyda: 69.6 cm/sec Ao V2 max: 133.6 cm/sec LV V1 max: 89.0 cm/sec Ao max P.1 mmHg LV V1 max P.2 mmHg PA V2 max: 71.3 cm/sec TR max oneyda: 244.0 cm/sec TR max P.8 mmHg ECHO/Echo Complete Interpretation Summary Normal LV size. Left ventricular systolic function is normal. The left ventricular ejection fraction is 55 %. The left atrium is mildly enlarged. Ordering Physician: Bertin Wolff Referring Physician: Clifton Del Valle Chi Performed By: Trisha Chen RDCS 07/13/24 1228 Date Pete Garner MD CC: Dr. Bertin Wolff DO; Dr. Clifton Del Valle MD Date Dictated: 07/13/24 1102 Date Transcribed: 07/13/24 1228 [employer]: Signed Normal [facility] Echocardiogram study reportO rdered By: Pete Garner on 07-13-2024 Study report [facility] Cardiovascular Services [address] [place] [id number] Echo Complete 07/13/24 1102 MR#: [id number] Acct: [id number] Name: CRISTINA JEFFREY Rep #:[id number] : 1945 79 From: Pete Conner Attending Dr: Dr. Bertin Wolff DO Status: ADM IN Ordering Dr: Bertin Wolff DO Date: 07/13/24 Location: [facility] Sex: M C Admitted: 07/13/24 Reason For Study Reason For Study: A. fib Procedure This was a 2D Doppler, Color Flow transthoracic echocardiogram. Exam performed portable in patient room. Left Ventricle Normal LV size. Left ventricular systolic function is normal. The left ventricular ejection fraction is 55 %. No regional wall motion abnormalities noted. Right Ventricle Normal RV size. Normal systolic function. Atria The left atrium is mildly enlarged. Normal right atrium. Mitral Valve Normal mitral valve. Tricuspid Valve Normal tricuspid valve. Mild (1+) tricuspid valve insufficiency. Pulmonary artery systolic pressure is 26 mmHg. Aortic Valve Trisinus/trileaflet aortic valve. Great Vessels Normal sized aortic root. Pericardium/Pleural No pericardial effusion. MMode/2D Measurements & Calculations LVIDd: 4.0 cm IVSd: 1.3 cm Ao root diam: 3.2 cm LVIDs: 3.4 cm LVPWd: 1.1 cm RVDd: 4.0 cm FS: 14.7 % LAV(MOD-bp): 44.7 ml LVAd ap4: 16.7 cm2 LVAd ap2: 22.4 cm2 LAV(MOD-bp) Indexed: 20.7 ml/m2 LVLd ap4: 6.3 cm LVLd ap2: 6.4 cm LAV(MOD-sp2): 24.9 ml EDV(MOD-sp4): 38.3 ml EDV(MOD-sp2): 66.2 ml LAV(MOD-sp4): 63.0 ml EDV(sp4-el): 37.7 ml EDV(sp2-el): 66.8 ml LVAs ap4: 9.8 cm2 LVAs ap2: 13.8 cm2 LVLs ap4: 5.8 cm LVLs ap2: 6.4 cm ESV(MOD-sp4): 15.4 ml ESV(MOD-sp2): 26.8 ml ESV(sp4-el): 13.8 ml ESV(sp2-el): 25.3 ml EF(MOD-sp4): 59.7 % EF(MOD-sp2): 59.6 % EF(sp4-el): 63.3 % SV(MOD-sp4): 22.9 ml SV(MOD-sp2): 39.5 ml SV(sp4-el): 23.9 ml SI(MOD-sp4): 10.6 ml/m2 SI(MOD-sp2): 18.3 ml/m2 ___ LA A4 area: 23.3 cm2 LA dimension(2D): 2.9 cm RA A4 area: 18.8 cm2 Doppler Measurements & Calculations MV E max oneyda: 69.6 cm/sec Ao V2 max: 133.6 cm/sec LV V1 max: 89.0 cm/sec Ao max P.1 mmHg LV V1 max P.2 mmHg PA V2 max: 71.3 cm/sec TR max oneyda: 244.0 cm/sec TR max P.8 mmHg ECHO/Echo Complete Interpretation Summary Normal LV size. Left ventricular systolic function is normal. The left ventricular ejection fraction is 55 %. The left atrium is mildly enlarged. Ordering Physician: Bertin Wolff Referring Physician: Clifton Del Valle Chi Performed By: Trisha Chen RDCS 07/13/24 1228 Date _ Pete Garner MD CC: Dr. Bertin Wolff, DO; Dr. Clifton Del Valle MD ~ Date Dictated: 07/13/24 1102 Date Transcribed: 07/13/24 1228 [employer]: Signed [facility] Work Phone: Emergency Department Summary on 07-13-2024 Emergency Department Summary [facility] Medical Records Department [address] [place] [id number] Emergency Department Summary 07/13/24 MR#: [id number] Acct: [id number] Name: CRISTINA JEFFREY Rep #: [id number] : 1945 79 From: Otf Jefferson MD PCP: Dr. Clifton Del Valle MD Status:ADM IN Location: [address] History of Present Illness Chief Complaint: Shortness of Breath Narrative Narrative: 79-year-old male past medical history of atrial fibrillation, hypertension, on Eliquis presents with shortness of breath and generalized weakness that has had since 1:00 this morning, approximately 6 hours ago. He states yesterday everything was fine, and this morning he awoke, with shortness of breath. He is felt weak for the last 6 hours. He has history of diastolic CHF and is on a water pill, but he also takes diltiazem for rate control of his atrial fibrillation. He states that his leg swelling may have been worse over the last couple of days. No exacerbating or alleviating factors. He has had cold-like symptoms with chills and a cough as well. [facility] Medical History Diastolic CHF, chronic Atrial fibrillation Prostate cancer Chronic gastric ulcer Atherosclerosis of coronary artery of [place] heart without angina pectoris Essential hypertension PAF (paroxysmal atrial fibrillation) Atrial fibrillation with rapid ventricular response Pancreatitis Abnormal EKG Hypokalemia Metabolic alkalosis Hyperlipidemia Acute respiratory insufficiency Acute exacerbation of chronic obstructive pulmonary disease (COPD) COPD (chronic obstructive pulmonary disease) Paroxysmal SVT (supraventricular tachycardia) GERD (gastroesophageal reflux disease) CHF (congestive heart failure) Home Medications ???Medication ???Instructions ???Recorded ???Last Taken ???Type albuterol sulfate 2.5 mg/3 mL 2.5 mg inhalation Q4H PRN PRN 08/1001/25/19 01:00 History (0.083 %) solution for nebulization Shortness Of Breath fluticasone furoate 100 1 ea IH DAILY breathing 01/25/19 1 18:00 History mcg-vilanterol 25 mcg/dose inhalation powder pantoprazole 40 mg tablet,delayed 40 mg PO BID stomach 01/25/1907/10 18:00 History release potassium chloride 20 mEq 40 meq PO DAILY supplement 9 01/24/19 06:00 History tablet,extended release(part/cryst) pravastatin 40 mg tablet 40 mg PO QHS cholesterol 01/25/19 01/24/19 18:00 History vitamins A,C,S-djtz-zhpmza 4,296 1 ea PO BID supplement 01/25/19 18:00 History mcg-226 mg-90 mg capsule cholecalciferol (vitamin D3) 25 3,000 unit PO DAILY supplement Unknown History mcg (1,000 unit) capsule metoprolol tartrate 50 mg tablet 50 mg PO BID #180 tabs 04/20/21 Un known Rx diltiazem HCl 240 mg capsule,24 240 mg PO DAILY 05/10/22 Unknown H istory hr,extended release furosemide 40 mg tablet 40 mg PO DAILY water pill 05/10/22 Unknown History sacubitril 97 mg-valsartan 103 mg 1 tab PO BID 05/10/22 Unknown His tory tablet (Entresto) apixaban 5 mg tablet 5 mg PO BID afib 07/13/24 Unknown History Allergy/AdvReac Type Severity Reaction Status Date / Time No Known Allergies Allergy Verified 07/13/24 06:44 Family History Mother CVA (cerebral vascular accident) Father Dementia Surgical History History of laparoscopic cholecystectomy (01/29/19) History of gastric surgery History of breast lump/mass excision Social History Smoking Status: Former smoker how long ago did patient quit smokin years ago alcohol intake: former year quit: 2016 substance use type: does not use caffeine: Yes ROS ROS ED ROS Narrative Constitutional: No fever, positive chills. Generalized weakness. Cardiovascular: No chest pain. No palpitations. Positive pedal edema. Respiratory: Positive cough, positive shortness of breath. Abdominal: No abdominal pain. No nausea. No vomiting. Genitourinary: No dysuria. No hematuria. Musculoskeletal: No myalgias. No arthralgias. Neurologic: No headaches. No dizziness. No lightheadedness. Skin: No rash. No change in color. EXAM Physical Exam Narrative Exam Narrative: Afebrile. Vital signs noted. Nontoxic-appearing. Cardiovascular examination reveals an irregularly irregular tachycardia. Lungs are clear to auscultation bilaterally anteriorly. Abdomen is soft and nontender with positive bowel sounds. Positive bilateral pedal edema equal and symmetric with chronic skin changes. Neurological examination nonfocal and nonlateralizing. Const Vital Signs: 07/13/24 06:44 07/13/24 06:48 07/13/24 06:48 Temperature 98.6 F 98.6 F Temperature S (more content not included)... Normal [facility] Eosinophil percentageOrdered By: Otf Jefferson on 07-13-2024 Eosinophils/100 WBC (Bld) 0.1 % 0-5 [facility] Erythrocyte distribution wid th ratioOrdered By: Otf Jefferson on 07-13-2024 Erythrocyte distribution width (RBC) [Ratio] 14.2 % 11.6-14.6 [facility] Erythrocyte distribution wid th standard deviationOrdered By: Otf Jefferson on 07-13-2024 Erythrocyte distribution width (RBC) [Entitic vol] 49.3 fL High 35.1-43.9 [facility] Estimation of creatinine marvel aranceOrdered By: Otf Jefferson on 07-13-2024 Estimated Creatinine Clearance Calc 63.60 ml/min 50-250 [facility] GFR/1.73 sq M.predicted erlinda g non-blacks MDRD (S/P/Bld) [Vol rate/Area]Ordered By: Otf Jefferson on 07-13-2024 Estimated GFR (MDRD) Non-Af Amer 68 >60 [facility] Comment on above: mL/min/1.73m2 CKD-EP I Creatinine Equation (2020) H AND P Exam - [facility] 07-13-2024 H&P Exam - Hospitalist [facility] Medical Records Department [address] [place] [address] H P Exam - Hospitalist 07/13/24 1019 MR#: [id number] Acct: [id number] Name: CRISTINA JEFFREY Rep #: [id number] : 1945 79 From: Bertin Wolff DO PCP: Dr. Clifton Del Valle MD Status:ADM IN Location: [facility] [id number] HPI - General General Date of Admission: 07/13/24 Date of Service: 07/13/24 Chief Complaint: Chills, shortness of breath HPI Narrative CRISTINA JEFFREY, is a 79 M who presents to the emergency room at [facility] with complaints of chills and shortness of breath which started this morning. Patient states he is felt hot at home but denies actual fever. Examination in the emergency room revealed the patient to be tachycardic and atrial fibrillation with a rate of approximately 135, labs obtained showed an elevated white blood cell count of 13.4 and hemoglobin was 16.9. Patient's chemistry panel was unremarkable, urinalysis was unremarkable. Chest x-ray showed a right lung infiltrate indicative of pneumonia. Patient required oxygen at 2 L/min. Patient was placed on a Cardizem drip and given oral metoprolol, he will be placed in stepdown on PCU, IV Rocephin and Zithromax was given. [facility] Medical History Diastolic CHF, chronic Atrial fibrillation Prostate cancer Chronic gastric ulcer Atherosclerosis of coronary artery of [place] heart without angina pectoris Essential hypertension PAF (paroxysmal atrial fibrillation) Atrial fibrillation with rapid ventricular response Pancreatitis Abnormal EKG Hypokalemia Metabolic alkalosis Hyperlipidemia Acute respiratory insufficiency Acute exacerbation of chronic obstructive pulmonary disease (COPD) COPD (chronic obstructive pulmonary disease) Paroxysmal SVT (supraventricular tachycardia) GERD (gastroesophageal reflux disease) CHF (congestive heart failure) Home Medications ???Medication ???Instructions ???Recorded ???Last Taken ???Type albuterol sulfate 2.5 mg/3 mL 2.5 mg inhalation Q4H PRN PRN 08/1001/25/19 01:00 History (0.083 %) solution for nebulization Shortness Of Breath fluticasone furoate 100 1 ea IH DAILY breathing 01/25/19 1 18:00 History mcg-vilanterol 25 mcg/dose inhalation powder pantoprazole 40 mg tablet,delayed 40 mg PO BID stomach 01/25/1907/10 18:00 History release potassium chloride 20 mEq 40 meq PO DAILY supplement 9 01/24/19 06:00 History tablet,extended release(part/cryst) pravastatin 40 mg tablet 40 mg PO QHS cholesterol 01/25/19 01/24/19 18:00 History vitamins A,C,A-nhuk-tgfexo 4,296 1 ea PO BID supplement 01/25/19 18:00 History mcg-226 mg-90 mg capsule apixaban 5 mg tablet 5 mg PO BID afib ##0 01/26/19 1007/10 18:00 Rx cholecalciferol (vitamin D3) 25 2,000 unit PO DAILY supplement Unknown History mcg (1,000 unit) capsule metoprolol tartrate 50 mg tablet 50 mg PO BID #180 tabs 04/20/21 Un known Rx diltiazem HCl 240 mg capsule,24 240 mg PO DAILY 05/10/22 Unknown H istory hr,extended release furosemide 40 mg tablet 40 mg PO DAILY water pill 05/10/22 Unknown History sacubitril 97 mg-valsartan 103 mg 1 tab PO BID 05/10/22 Unknown His tory tablet (Entresto) Allergy/AdvReac Type Severity Reaction Status Date / Time No Known Allergies Allergy Verified 07/13/24 06:44 Family History Mother CVA (cerebral vascular accident) Father Dementia Surgical History History of laparoscopic cholecystectomy (01/29/19) History of gastric surgery History of breast lump/mass excision Social History Smoking Status: Former smoker how long ago did patient quit smokin years ago alcohol intake: former year quit: 2017 substance use type: does not use caffeine: Yes ROS Constitutional Constitutional: Reports chills, fatigue and malaise; Denies anorexia, change in weight, fever(s), night sweats or weakness Eyes Eyes: Denies blurry vision, change in vision, discharge from eye(s) or eye pain Cardiovascular Cardiovascular: Denies chest pain, claudication, edema or palpitations Respiratory/Chest Respiratory/Chest: Reports dyspnea, shortness of breath at rest and shortness of breath with exertion; Denies cough or hemoptysis Gastrointestinal Gastrointestinal: Denies abdominal pain, constipation, diarrhea, hematemesis, hematochezia, melena, nausea or vomiting Genitourinary Genitourinary: Denies dysuria, hematuria, urinary frequency, urinary hesitancy, urinary incontinence or urinary urgency Musculoskeletal Musculoskeletal: Denies back pain, joint pain, joint stiffness, joint swelling, myalgias (more content not included)... Normal [facility] Hematocrit Auto (Bld) [Volum e fraction]Ordered By: Otf Jefferson on 07-13-2024 Hematocrit (Bld) [Volume fraction] 49.2 % 40-54 [facility] Hemoglobin measurementOrdere d By: Otf Jefferson on 07-13-2024 Hemoglobin (Bld) [Mass/Vol] 16.9 g/dL High 13.0-16.5 [facility] Immature granulocytes/100 WB C Auto (Bld)Ordered By: Otf Jefferson on 07-13-2024 Immature granulocytes/100 WBC (Bld) 0.400 % 0.0-0.9 [facility] Comment on above: IG% - Immature Granu locytes (promyelocytes, myelocytes and metamyelocytes) > 1% indicates that a LEFT SHIFT is Present. Influenza virus A and B and SARS-CoV-2 (COVID-19) and Respiratory syncytial virus RNAOrdered By: Otf Jefferson on 07-13-2024 SARS-CoV-2 (COVID-19) RNA ADELSO+probe Ql (Unsp spec) [facility] L. pneumophila Ag Ql (U)Orde red By: Bertin Wolff on 07-13-2024 Legionella Antigen [facility] L503.7505on 07-13-2024 Natriuretic peptide B (Bld) [Mass/Vol] 940 pg/mL Normal <=1800 [facility] Comment on above: Result Comment: Hear t Failure Unlikely: < 300 pg/mL Heart Failure Likely < 50 Years: > 450 pg/mL 50-75 Years: > 900 pg/mL >75 Years: > 1800 pg/mL Performed By: #### L 503.7505, L501.5200 #### [facility] [address] [place], [place], [id number] Laboratory - Chemistry and C hemistry - challengeOrdered By: Otf Jefferson on 07-13-2024 Natriuretic peptide B (Bld) [Mass/Vol] 940 pg/mL <1800 [facility] Comment on above: Heart Failure Unlike ly: < 300 pg/mLHeart Failure Likely< 50 Years: > 450 pg/mL50-75 Years: > 900 pg/mL>75 Years: > 1800 pg/mL Legionella Antigen Urineon 0 07-13-2024 LEGU URINE, CLEAN CATCH Legionella Antigen result interpretation: L pneumo Ag Ur Ql Negative Presumptive negative for Legionella pneumophila serogroup 1 antigen in urine, suggesting no recent or current infection. Legionella Ag, Urine Negative (See interpretation below) Normal [facility] Comment on above: Performed By: #### M 200.1000 #### [facility] [address] [place], [address] Lymphocytes Auto (Unsp spec) [#/Vol]Ordered By: Otf Jefferson on 07-13-2024 Lymphocytes (Bld) [#/Vol] 0.65 10*3/uL Low 0.83-4.51 [facility] Lymphocytes/100 WBC Auto (Un sp spec)Ordered By: Otf Jefferson on 07-13-2024 Lymphocytes/100 WBC (Bld) 4.8 % Low 19-41 [facility] M100.678on 07-13-2024 M100.678 Normal Reference Ran ge = Negative GeneXpert Instrument, PCR method SARS-CoV-2 (COVID 19) Negative INFLUENZA A Negative INFLUENZA B Negative RSV PCR Negative Normal [facility] Comment on above: Performed By: #### M 100.678 #### [facility] [address] [place], [address] MCV (mean corpuscular volume ) determinationOrdered By: Otf Jfeferson on 07-13-2024 MCV (RBC) [Entitic vol] 95.2 fL High 80-94 [facility] Magnesiumon 07-13-2024 Magnesium [Mass/Vol] 1.8 mg/dL Normal 1.5-2.2 [facility] Comment on above: Performed By: #### L 503.7505, L501.5200 #### [facility] [address] [place], [place], [id number] Magnesium (Unsp spec) [Mass/ Vol]Ordered By: Otf Jefferson on 07-13-2024 Magnesium [Mass/Vol] 1.8 mg/dL 1.5-2.2 [facility] Magnesium measurement (mass/ volume)Ordered By: Otf Jefferson on 07-13-2024 Magnesium (Unsp spec) [Mass/Vol] 1.8 mg/dL 1.5-2.2 [facility] Mean corpuscular hemoglobin (MCH) determinationOrdered By: Otf Jefferson on 07-13-2024 MCH (RBC) [Entitic mass] 32.7 pg High 27.0-32.0 [facility] Mean corpuscular hemoglobin concentration (MCHC) determinationOrdered By: Otf Jefferson on 07-13-2024 MCHC (RBC) [Mass/Vol] 34.3 g/dL 32-36 [facility] Mean platelet volume determi nationOrdered By: Otf eJfferson on 07-13-2024 Platelet mean volume (Bld) [Entitic vol] 8.8 fL 6.2-12.0 [facility] Monocyte percentageOrdered B y: Otf Jefferson on 07-13-2024 Monocytes/100 WBC (Bld) 5.5 % 0-10 [facility] Neutrophil percentageOrdered By: Otf Jefferson on 07-13-2024 Neutrophils/100 WBC (Bld) 89.1 % High 47-70 [facility] Nucleated red blood cell per centageOrdered By: Otf Jefferson on 07-13-2024 Nucleated RBC/100 WBC (Bld) [Ratio] 0 % 0-5 [facility] Platelet countOrdered By: Saritha Jefferson on 07-13-2024 Platelets (Bld) [#/Vol] 263 10*3/uL 150-450 [facility] Potassium (Unsp spec) [Mass/ Vol]Ordered By: Otf Jefferson on 07-13-2024 Potassium [Moles/Vol] 4.6 mmol/L 3.3-5.1 [facility] RBC Auto (Bld) [#/Vol]Ordere d By: Otf Jefferson on 07-13-2024 RBC (Bld) [#/Vol] 5.17 10*6/uL 4.6-6.2 [facility] Serum creatinine measurement (mass/volume)Ordered By: Otf Jefferson on 07-13-2024 Creatinine [Mass/Vol] 1.10 mg/dL 0.70-1.20 [facility] Serum glucose measurement (m ass/volume)Ordered By: Otf Jefferson on 07-13-2024 Glucose [Mass/Vol] 122 mg/dL High 70-99 [facility] Serum or plasma calcium jean urement (mass/volume)Ordered By: Otf Jefferson on 07-13-2024 Calcium [Mass/Vol] 9.0 mg/dL 7.6-11.0 [facility] Serum or plasma urea nitroge n measurement (mass/volume)Ordered By: Otf Jefferson on 07-13-2024 Urea nitrogen [Mass/Vol] 14 mg/dL 4-19 [facility] Sodium levelOrdered By: Otf Jefferson on 07-13-2024 Sodium [Moles/Vol] 137 mmol/L 133-145 [facility] Strep pneumoniae Antig(UR,CS F)on 03-22-2025 STPAG URINE INTERPRETATION Strep pneumoniae Antig(UR,CSF) Negative Urine Presumptive negative for pneumococcal pneumonia, suggesting no current or recent pneumococcal infection. Infection due to S pneumoniae cannot be ruled out since the antigen present in the sample may be below the detection limit of the test. Strep pneumo Test Negative URINE (See interpretation below) Normal [facility] Comment on above: Performed By: #### M 200.1000 #### [facility] [address] [place], [address] Streptococcus pneumoniae ant igen assayOrdered By: Bertin Wolff on 07-13-2024 Streptococcus pneumoniae Antigen (M [facility] Urine Legionella pneumophila antigen detectionOrdered By: Bertin Wolff on 07-13-2024 L. pneumophila Ag Ql (U) [facility] White blood cell (WBC) count Ordered By: Otf Jefferson on 07-13-2024 WBC (Bld) [#/Vol] 13.4 10*3/uL High 4.4-11.0 [facility] Cardiology Visit Reporton Cardiology Visit Report [facility] [address] [place] [address] OFFICE VISIT Date of Service: 07/02/24 MR#: [id number] Acct: [id number] Name: CRISTINA JEFFREY Rep #: [id number] : 1945 Provider: VENKAT Zamora Age/Sex: 79/M Location: [facility] [place] Status: Signed HPI HPI History of Present Illness Details: Cristina Jeffrey is a 78-year-old gentleman with a history of mild coronary artery disease, hypertension and chronic atrial fibrillation. He is legally blind. He really does not feel his atrial fibrillation and has been compliant with his medications. He does not have any chest discomfort/heaviness/tightnes s. He does not have any worsening symptoms of shortness of breath. He denies any PND. He does not have any orthopnea. He does not have any symptoms of congestive heart failure. He does not have any palpitations that he is aware of. He does not have any lightheadedness or dizziness. He does not have any near-syncope or syncope. He does sometimes have lower extremity edema. He does not have any symptoms of claudication. Intake Vital Signs 06/29/23 09:28 07/02/24 07:45 Height 5 ft 9 in 5 ft 9 in Weight: 221 lb BMI 32.6 BP 120/83 H Blood Pressure Location Lt brachial Position Sitting Respiration 18 Pulse 88 Pulse Source Monitor Pulse Oximetry (%) 97 Intake Visit Reasons: 1 Y FU Rn Support Services Required: No Is patient in pain?: No Allergies No Known Allergies Allergy (Verified 07/02/24 11:20) Medications ???Medication ???Instructions ???Recorded ???Confirmed ???Type albuterol sulfate 2.5 mg/3 mL 2.5 mg inhalation Q4H PRN PRN 08/1007/02/24 History (0.083 %) solution for nebulization Shortness Of Breath fluticasone furoate 100 1 ea IH DAILY breathing 01/25/19 0 07/02/24 History mcg-vilanterol 25 mcg/dose inhalation powder pantoprazole 40 mg tablet,delayed 40 mg PO BID stomach 01/25/1903/18 History release potassium chloride 20 mEq 40 meq PO DAILY supplement 9 07/02/24 History tablet,extended release(part/cryst) pravastatin 40 mg tablet 40 mg PO QHS cholesterol 01/25/19 07/02/24 History vitamins A,C,G-ouup-vqoptg 4,296 1 ea PO BID supplement 01/25/19 History mcg-226 mg-90 mg capsule apixaban 5 mg tablet 5 mg PO BID afib ##0 01/26/1906/22 Rx cholecalciferol (vitamin D3) 25 2,000 unit PO DAILY supplement 07/02/24 History mcg (1,000 unit) capsule metoprolol tartrate 50 mg tablet 50 mg PO BID #180 tabs 04/20/21 Rx diltiazem HCl 240 mg capsule,24 240 mg PO DAILY 05/10/22 07/02/24 History hr,extended release furosemide 40 mg tablet 40 mg PO DAILY water pill 05/10/22 07/02/24 History sacubitril 97 mg-valsartan 103 mg 1 tab PO BID 05/10/22 07/02/24 Hi story tablet (Entresto) Ejection fraction %: 55 Have you fallen in the past year?: No Nurse's Note: no medication list, patient does not know medications. [facility] Medical History Diastolic CHF, chronic Atrial fibrillation Prostate cancer Chronic gastric ulcer Atherosclerosis of coronary artery of [place] heart without angina pectoris Essential hypertension PAF (paroxysmal atrial fibrillation) Atrial fibrillation with rapid ventricular response Pancreatitis Abnormal EKG Hypokalemia Metabolic alkalosis Hyperlipidemia Acute respiratory insufficiency Acute exacerbation of chronic obstructive pulmonary disease (COPD) COPD (chronic obstructive pulmonary disease) Paroxysmal SVT (supraventricular tachycardia) GERD (gastroesophageal reflux disease) CHF (congestive heart failure) Surgical History History of laparoscopic cholecystectomy (01/29/19) History of gastric surgery History of breast lump/mass excision Family History Mother CVA (cerebral vascular accident) Father Dementia Social History Smoking Status: Former smoker how long ago did patient quit smokin years ago alcohol intake: former year quit: 2016 substance use type: does not use caffeine: Yes ROS Const Const: Positive for fatigue and weakness; Negative for headache(s) or frequent falls Eyes Eyes: Positive for other (legally blind ); Negative for blurry vision ENT ENT: Negative for headache(s), dizziness or Nosebleed/epistaxis Cardio Chest Pain: No Palpitations: Yes (sometimes) Edema: Bilateral Muscle aches with walking: None Resp Respiratory: Positive for SOB with activity and SOB at rest; Negative for SOB orthopnea SOB lying down GI GI: Negative nausea, vomiting, heartburn, bright (more content not included)... Normal [facility] CBC W/Diff, Automatedon 11-0 Absolute Lymph 2.19 X10 3/uL Normal 0.83-4.51 [facility] Comment on above: Performed By: #### L 500.4050, L501.9520, L506.1000, L100.0100, L500.4100 #### [facility] [address] [place], [address] Absolute Neut 4.6 X10 3/uL Normal 2.0-7.7 [facility] Comment on above: Performed By: #### L 500.4050, L501.9520, L506.1000, L100.0100, L500.4100 #### [facility] [address] [place], [address] Basophils/100 WBC (Bld) 0.6 % Normal 0-1 [facility] Comment on above: Performed By: #### L 500.4050, L501.9520, L506.1000, L100.0100, L500.4100 #### [facility] [address] [place], [address] Eosinophils/100 WBC (Bld) 1.0 % Normal 0-5 [facility] Comment on above: Performed By: #### L 500.4050, L501.9520, L506.1000, L100.0100, L500.4100 #### [facility] [address] [place], [address] Erythrocyte distribution width (RBC) [Ratio] 14.1 % Normal 11.6-14.6 [facility] Comment on above: Performed By: #### L 500.4050, L501.9520, L506.1000, L100.0100, L500.4100 #### [facility] [address] [place], [address] Hematocrit (Bld) [Volume fraction] 48.6 % Normal 40-54 [facility] Comment on above: Performed By: #### L 500.4050, L501.9520, L506.1000, L100.0100, L500.4100 #### [facility] [address] [place], [address] Hemoglobin (Bld) [Mass/Vol] 16.3 g/dL Normal 13.0-16.5 [facility] Comment on above: Performed By: #### L 500.4050, L501.9520, L506.1000, L100.0100, L500.4100 #### [facility] [address] [place], [address] IG% 0.500 Normal 0.0-0.9 [facility] Comment on above: Result Comment: IG% - Immature Granulocytes (promyelocytes, myelocytes and metamyelocytes) > 1% indicates that a LEFT SHIFT is Present. Performed By: #### L 500.4050, L501.9520, L506.1000, L100.0100, L500.4100 #### [facility] [address] [place], [address] Lymphocytes/100 WBC (Bld) 27.9 % Normal 19-41 [facility] Comment on above: Performed By: #### L 500.4050, L501.9520, L506.1000, L100.0100, L500.4100 #### [facility] [address] [place], [address] MCH (RBC) [Entitic mass] 32.4 pg High 27.0-32.0 [facility] Comment on above: Performed By: #### L 500.4050, L501.9520, L506.1000, L100.0100, L500.4100 #### [facility] [address] [place], [address] MCHC (RBC) [Mass/Vol] 33.5 g/dL Normal 32-36 [facility] Comment on above: Performed By: #### L 500.4050, L501.9520, L506.1000, L100.0100, L500.4100 #### [facility] [address] [place], [address] MCV (RBC) [Entitic vol] 96.6 fL High 80-94 [facility] Comment on above: Performed By: #### L 500.4050, L501.9520, L506.1000, L100.0100, L500.4100 #### [facility] [address] [place], [address] Monocytes/100 WBC (Bld) 10.8 % High 0-10 [facility] Comment on above: Performed By: #### L 500.4050, L501.9520, L506.1000, L100.0100, L500.4100 #### [facility] [address] [place], [address] Neutrophils/100 WBC (Bld) 59.2 % Normal 47-70 [facility] Comment on above: Performed By: #### L 500.4050, L501.9520, L506.1000, L100.0100, L500.4100 #### [facility] [address] [place], [address] Nucleated RBC (Bld) [#/Vol] 0 10*3/uL Normal 0-5 [facility] Comment on above: Performed By: #### L 500.4050, L501.9520, L506.1000, L100.0100, L500.4100 #### [facility] [address] [place], [address] Platelet mean volume (Bld) [Entitic vol] 9.0 fL Normal 6.2-12.0 [facility] Comment on above: Performed By: #### L 500.4050, L501.9520, L506.1000, L100.0100, L500.4100 #### [facility] [address] [place], [address] Platelets (Bld) [#/Vol] 268 10*3/uL Normal 150-450 [facility] Comment on above: Performed By: #### L 500.4050, L501.9520, L506.1000, L100.0100, L500.4100 #### [facility] [address] [place], [address] RBC (Bld) [#/Vol] 5.03 10*6/uL Normal 4.6-6.2 [facility] Comment on above: Performed By: #### L 500.4050, L501.9520, L506.1000, L100.0100, L500.4100 #### [facility] [address] [place], [address] RDW SD 50.2 fl High 35.1-43.9 [facility] Comment on above: Performed By: #### L 500.4050, L501.9520, L506.1000, L100.0100, L500.4100 #### [facility] [address] [place], [address] WBC (Bld) [#/Vol] 7.9 10*3/uL Normal 4.4-11.0 [facility] Comment on above: Performed By: #### L 500.4050, L501.9520, L506.1000, L100.0100, L500.4100 #### [facility] [address] [place], [address] Comprehensive Metabolic Prof [facility] 02-27-2024 Albumin [Mass/Vol] 3.5 g/dL Normal 3.2-5.0 [facility] Comment on above: Performed By: #### L 500.4050, L501.9520, L506.1000, L100.0100, L500.4100 #### [facility] [address] [place], [address] Albumin/Globulin [Mass ratio] 1.1 {ratio} Normal 0.9-2.4 [facility] Comment on above: Performed By: #### L 500.4050, [id number], L506.1000, L100.0100, L500.4100 #### [facility] [address] [place], [address] ALK P 75 U/L Normal 45-117 [facility] Comment on above: Performed By: #### L 500.4050, [id number], L506.1000, L100.0100, L500.4100 #### [facility] [address] [place], [address] ALT [Catalytic activity/Vol] 49 U/L Normal 16-61 [facility] Comment on above: Performed By: #### L 500.4050, [id number], L506.1000, L100.0100, L500.4100 #### [facility] [address] [place], [address] AST [Catalytic activity/Vol] 33 U/L Normal 15-37 [facility] Comment on above: Result Comment: Mode rate Hemolysis, Result may be falsely increased. Performed By: #### L 500.4050, L501.9520, L506.1000, L100.0100, L500.4100 #### [facility] [address] [place], [address] Bilirubin [Mass/Vol] 0.70 mg/dL Normal 0.20-1.00 [facility] Comment on above: Result Comment: For patients on eltrombopag therapy, use of Dimension [place] TBIL is not recommended. Performed By: #### L 500.4050, L501.9520, L506.1000, L100.0100, L500.4100 #### [facility] [address] [place], [address] BUN/CRE 11.8 RATIO Normal 10-20 [facility] Comment on above: Performed By: #### L 500.4050, [id number], L506.1000, L100.0100, L500.4100 #### [facility] [address] [place], [address] CA,Total 8.8 mg/dL Normal 8.5-10.1 [facility] Comment on above: Performed By: #### L 500.4050, [id number], L506.1000, L100.0100, L500.4100 #### [facility] [address] [place], [address] Chloride [Moles/Vol] 106 mmol/L Normal 98-107 [facility] Comment on above: Performed By: #### L 500.4050, [id number], L506.1000, L100.0100, L500.4100 #### [facility] [address] [place], [address] CO2 [Moles/Vol] 27.0 mmol/L Normal 21.0-32.0 [facility] Comment on above: Performed By: #### L 500.4050, [id number], L506.1000, L100.0100, L500.4100 #### [facility] [address] [place], [address] Creatinine [Mass/Vol] 1.10 mg/dL Normal 0.70-1.30 [facility] Comment on above: Result Comment: The validity of the calculated GFR GFRAA in patients over 70 years has not been determined. Clinical correlation is essential. Performed By: #### L 500.4050, [id number], L506.1000, L100.0100, L500.4100 #### [facility] [address] [place], [address] EST GFR - AA 83 mL/min Normal >60 [facility] Comment on above: Result Comment: Afri can [place]adian GFR Calc Performed By: #### L 500.4050, [id number], L506.1000, L100.0100, L500.4100 #### [facility] [address] [place], [address] GAP 5 Normal 5-15 [facility] Comment on above: Performed By: #### L 500.4050, [id number], L506.1000, L100.0100, L500.4100 #### [facility] [address] [place], [address] GFR/1.73 sq M.predicted among non-blacks MDRD (S/P/Bld) [Vol rate/Area] 69 mL/min/{1.73_m2} Normal >60 [facility] Comment on above: Result Comment: Non- GFR Calc Performed By: #### L 500.4050, [id number], L506.1000, L100.0100, L500.4100 #### [facility] [address] [place], [address] Globulin (S) [Mass/Vol] 3.3 g/dL Normal 2.2-4.2 [facility] Comment on above: Performed By: #### L 500.4050, [id number], L506.1000, L100.0100, L500.4100 #### [facility] [address] [place], [address] Glucose [Mass/Vol] 118 mg/dL High 74-106 [facility] Comment on above: Result Comment: Fast ing Glucose result from 100 to 125 mg/dL suggests IMPAIRED HOMEOSTASIS per A.D.A. criteria. Performed By: #### L 500.4050, [id number], L506.1000, L100.0100, L500.4100 #### [facility] [address] [place], [address] Potassium [Moles/Vol] 4.6 mmol/L Normal 3.5-5.1 [facility] Comment on above: Result Comment: Mode rate Hemolysis, Result may be falsely increased. Performed By: #### L 500.4050, [id number], L506.1000, L100.0100, L500.4100 #### [facility] [address] [place], [address] Sodium [Moles/Vol] 138 mmol/L Normal 136-145 [facility] Comment on above: Performed By: #### L 500.4050, [id number], L506.1000, L100.0100, L500.4100 #### [facility] [address] [place], [address] T PROT 6.8 g/dL Normal 6.4-8.2 [facility] Comment on above: Performed By: #### L 500.4050, [id number], L506.1000, L100.0100, L500.4100 #### [facility] [address] [place], [address] Urea nitrogen [Mass/Vol] 13 mg/dL Normal 7-18 [facility] Comment on above: Performed By: #### L 500.4050, [id number], L506.1000, L100.0100, L500.4100 #### [facility] [address] [place], [address] Lipid Profileon 02-27-2024 Cholesterol [Mass/Vol] 98 mg/dL Normal 200 [facility] Comment on above: Result Comment: <200 mg/dL Desirable 200-240 mg/dL Borderline >240 mg/dL High Risk Performed By: #### L 500.4050, [id number], L506.1000, L100.0100, L500.4100 #### [facility] [address] [place], [address] Cholesterol in HDL [Mass/Vol] 44 mg/dL Normal [facility] Comment on above: Result Comment: The drugs N-Acetylcysteine and Metamizole may falsely depress this assay. Reference Range HDL <40 mg/dL Low HDL Cholesterol HDL >or= 60 mg/dL High HDL Cholesterol Performed By: #### L 500.4050, [id number], L506.1000, L100.0100, L500.4100 #### [facility] [address] [place], [address] Cholesterol in LDL [Mass/Vol] 35 mg/dL Normal 0-130 [facility] Comment on above: Performed By: #### L 500.4050, [id number], L506.1000, L100.0100, L500.4100 #### [facility] [address] [place], [address] Cholesterol in VLDL [Mass/Vol] 19 mg/dL Normal 5-40 [facility] Comment on above: Performed By: #### L 500.4050, [id number], L506.1000, L100.0100, L500.4100 #### [facility] [address] [place], [address] Triglyceride [Mass/Vol] 96 mg/dL Normal [facility] Comment on above: Result Comment: The drugs N-Acetylcysteine and Metamizole may falsely depress this assay. Serum Triglycerides Reference Interval Normal <150 mg/dL Borderline high 150 - 199 mg/dL High 200 - 499 mg/dL Very High > or = 500 mg/dL Performed By: #### L 500.4050, [id number], L506.1000, L100.0100, L500.4100 #### [facility] [address] [place], [address] Thyroid Stim Hormone (TSH)on 02-27-2024 TSH 2.230 uIU/mL Normal 0.358-3.74 0 [facility] Comment on above: Performed By: #### L 500.4050, L501.9520, L506.1000, L100.0100, L500.4100 #### [facility] [address] [place], [address] Vitamin D,25 Hydroxyon 02-26 Vitamin D 25-OH 37.5 ng/mL Normal [facility] Comment on above: Result Comment: Jazmín min D 25(OH) Status Range Deficiency <20 ng/mL (50nmol/L) Insufficiency 20 - 30 ng/mL (50 - 75 nmol/L) Sufficiency 30 - 100 ng/mL (75 - 250 nmol/L) Toxicity >100 ng/mL (>250 nmol/L) Performed By: #### M [id number] #### [facility] [place], [address] Absolute lymphocyte countOrd ered By: Clifton Del Valle on 02-28-2023 Lymphocytes Auto (Unsp spec) [#/Vol] 2.07 10*3/uL 0.83-4.51 [facility] Basophil percentageOrdered B y: Clifton Del Valle on 02-28-2023 Basophils/100 WBC (Bld) 0.6 % 0-1 [facility] Bilirubin [Mass/Vol] 0.60 mg/dL 0.20-1.00 [facility] Comment on above: For patients on eltr ombopag therapy, use of Dimension [place] TBIL is not recommended. Chloride [Moles/Vol] 104 mmol/L 98-107 [facility] Cholesterol [Mass/Vol] 93 mg/dL <200 [facility] Comment on above: <200 mg/dL Desirable 200-240 mg/dL Borderline >240 mg/dL High Risk Eosinophils/100 WBC (Bld) 0.9 % 0-5 [facility] Glucose [Mass/Vol] 104 mg/dL 74-106 [facility] Comment on above: Fasting Glucose resu lt from 100 to 125 mg/dL suggests IMPAIRED HOMEOSTASIS per A.D.A. criteria. Neutrophils (Bld) [#/Vol] 5.1 10*3/uL 2.0-7.7 [facility] Neutrophils/100 WBC (Bld) 62.5 % 47-70 [facility] Potassium [Moles/Vol] 4.5 mmol/L 3.5-5.1 [facility] Protein [Mass/Vol] 7.2 g/dL 6.4-8.2 [facility] Sodium [Moles/Vol] 139 mmol/L 136-145 [facility] Triglyceride [Mass/Vol] 67 mg/dL <199 [facility] Comment on above: The drugs N-Acetylcy steine and Metamizole may falsely depress this assay.Serum Triglycerides Reference Interval Normal <150 mg/dL Borderline high 150 - 199 mg/dL High 200 - 499 mg/dL Very High > or = 500 mg/dL WBC (Bld) [#/Vol] 8.1 10*3/uL 4.4-11.0 [facility] Blood erythrocytes count (nu mber/volume)Ordered By: Clifton Del Valle on 02-28-2023 RBC (Bld) [#/Vol] 4.73 10*6/uL 4.6-6.2 [facility] Blood hemoglobin measurement (mass/volume)Ordered By: Clifton Del Valle on 02-28-2023 Hemoglobin (Bld) [Mass/Vol] 14.5 g/dL 13.0-16.5 [facility] Blood lymphocytes/100 leukoc ytesOrdered By: Clifton Del Valle on 02-28-2023 Lymphocytes/100 WBC (Bld) 25.4 % 19-41 [facility] Blood monocytes/100 leukocyt esOrdered By: Clifton Del Valle on 02-28-2023 Monocytes/100 WBC (Bld) 10.1 % 0-10 [facility] Blood platelet mean volumeOr dered By: Clifton Del Valle on 02-28-2023 Platelet mean volume (Bld) [Entitic vol] 9.5 fL 6.2-12.0 [facility] Determination of erythrocyte mean corpuscular volume (MCV)Ordered By: Clifton Del Valle on 02-28-2023 MCV (RBC) [Entitic vol] 96.8 fL 80-94 [facility] Hematocrit Auto (Bld) [Volum e fraction]Ordered By: Clifton Del Valle on 02-28-2023 Hematocrit (Bld) [Volume fraction] 45.8 % 40-54 [facility] - Chemistry and C hemistry - challengeOrdered By: Clifton Del Valle on 02-28-2023 ALP [Catalytic activity/Vol] 96 U/L 45-117 [facility] ALT [Catalytic activity/Vol] 36 U/L 16-61 [facility] CO2 [Moles/Vol] 30.0 mmol/L 21.0-32.0 [facility] Globulin (S) [Mass/Vol] 3.3 g/dL 2.2-4.2 [facility] Urea nitrogen/Creatinine [Mass ratio] 16.8 mg/mg 10-20 [facility] - Hematology and Cell countsOrdered By: Clifton Del Valle on 02-28-2023 Erythrocyte distribution width (RBC) [Entitic vol] 54.6 fL 35.1-43.9 [facility] Erythrocyte distribution width (RBC) [Ratio] 15.2 % 11.6-14.6 [facility] Immature granulocytes/100 WBC (Bld) 0.500 % 0.0-0.9 [facility] Comment on above: IG% - Immature Granu locytes (promyelocytes, myelocytes and metamyelocytes) > 1% indicates that a LEFT SHIFT is Present. MCH (RBC) [Entitic mass] 30.7 pg 27.0-32.0 [facility] Nucleated RBC/100 WBC (Bld) [Ratio] 0 % 0-5 [facility] MCHC Auto (RBC) [Mass/Vol]Or dered By: Clifton Del Valle on 02-28-2023 MCHC (RBC) [Mass/Vol] 31.7 g/dL 32-36 [facility] No Panel InformationOrdered By: Clifton Del Valle on 02-28-2023 Estimated GFR (MDRD) Amer 86 mL/min >60 [facility] Comment on above: GFR Calc Estimated GFR (MDRD) Non-Af Amer 71 mL/min >60 [facility] Comment on above: Non- GFR Calc Thyroid Stimulating Hormone (TSH) 2.05 uIU/mL 0.358-3.74 [facility] Vitamin D 25-Hydroxy 71.4 ng/mL [facility] Comment on above: Vitamin D 25(OH) Sta tus Range Deficiency <20 ng/mL (50nmol/L) Insufficiency 20 - 30 ng/mL (50 - 75 nmol/L) Sufficiency 30 - 100 ng/mL (75 - 250 nmol/L) Toxicity >100 ng/mL (>250 nmol/L) Platelets bldOrdered By: Clifton Del Valle on 02-28-2023 Platelets (Bld) [#/Vol] 335 10*3/uL 150-450 [facility] Serum or plasma albumin jean urement (mass/volume)Ordered By: Clifton Del Valle on 02-28-2023 Albumin [Mass/Vol] 3.9 g/dL 3.2-5.0 [facility] Serum or plasma albumin/glob ulin mass ratioOrdered By: Clifton Del Valle on 02-28-2023 Albumin/Globulin [Mass ratio] 1.2 {ratio} 0.9-2.4 [facility] Serum or plasma calcium jean urement (mass/volume)Ordered By: Clifton Del Valle 02-28-2023 Calcium [Mass/Vol] 9.2 mg/dL 8.5-10.1 [facility] Serum or plasma cholesterol in HDL measurement (mass/volume)Ordered By: Clifton Del Valle 02-28-2023 Cholesterol in HDL [Mass/Vol] 37 mg/dL >40 [facility] Comment on above: The drugs N-Acetylcy steine and Metamizole may falsely depress this assay. Reference Range HDL <40 mg/dL Low HDL Cholesterol HDL >or= 60 mg/dL High HDL Cholesterol Serum or plasma cholesterol in VLDL measurement (mass/volume)Ordered By: Clifton Del Valle 02-28-2023 Cholesterol in VLDL [Mass/Vol] 13 mg/dL 5-40 [facility] Serum or plasma creatinine m easurement (mass/volume)Ordered By: Clifton Del Valle 02-28-2023 Creatinine [Mass/Vol] 1.07 mg/dL 0.70-1.30 [facility] Comment on above: The validity of the calculated GFR & GFRAA in patients over 70 years has not been determined. Clinical correlation is essential. Serum or plasma low density lipoprotein (LDL) cholesterol measurement (mass/volume)Ordered By: Clifton Del Valle 02-28-2023 Cholesterol in LDL [Mass/Vol] 43 mg/dL 0-130 [facility] Serum or plasma urea nitroge n measurement (mass/volume)Ordered By: Clifton Del Valle 02-28-2023 Urea nitrogen [Mass/Vol] 18 mg/dL 7-18 [facility] Thin prep Papanicolaou smear with manual screeningOrdered By: Clifton Del Valle 02-28-2023 Thin prep Papanicolaou smear with manual screening 17 U/L 15-37 [facility] Thin prep Papanicolaou smear with manual screening 5 5-15 [facility] Absolute lymphocyte countOrd ered By: Dr. Del Valle on 08-30-2022 Lymphocytes Auto (Unsp spec) [#/Vol] 2.46 10*3/uL 0.83-4.51 [facility] Basophil percentageOrdered B y: Dr. Del Valle on 08-30-2022 Basophils/100 WBC (Bld) 0.5 % 0-1 [facility] Bilirubin [Mass/Vol] 0.70 mg/dL 0.20-1.00 [facility] Comment on above: For patients on eltr ombopag therapy, use of [place] TBIL is not recommended. Chloride [Moles/Vol] 107 mmol/L 98-107 [facility] Eosinophils/100 WBC (Bld) 1.6 % 0-5 [facility] Glucose [Mass/Vol] 93 mg/dL 74-106 [facility] Neutrophils (Bld) [#/Vol] 4.6 10*3/uL 2.0-7.7 [facility] Neutrophils/100 WBC (Bld) 56.8 % 47-70 [facility] Potassium [Moles/Vol] 4.1 mmol/L 3.5-5.1 [facility] Protein [Mass/Vol] 7.2 g/dL 6.4-8.2 [facility] Sodium [Moles/Vol] 138 mmol/L 136-145 [facility] WBC (Bld) [#/Vol] 8.2 10*3/uL 4.4-11.0 [facility] Blood erythrocytes count (nu mber/volume)Ordered By: Dr. Del Valle on 08-30-2022 RBC (Bld) [#/Vol] 4.94 10*6/uL 4.6-6.2 [facility] Blood hemoglobin measurement (mass/volume)Ordered By: Dr. Del Valle on 08-30-2022 Hemoglobin (Bld) [Mass/Vol] 15.6 g/dL 13.0-16.5 [facility] Blood lymphocytes/100 leukoc ytesOrdered By: Dr. Del Valle on 08-30-2022 Lymphocytes/100 WBC (Bld) 30.1 % 19-41 [facility] Blood monocytes/100 leukocyt esOrdered By: Dr. Del Valle on 08-30-2022 Monocytes/100 WBC (Bld) 10.3 % 0-10 [facility] Blood platelet mean volumeOr dered By: Dr. Del Valle on 08-30-2022 Platelet mean volume (Bld) [Entitic vol] 9.5 fL 6.2-12.0 [facility] Determination of erythrocyte mean corpuscular volume (MCV)Ordered By: Dr. Del Valle on 08-30-2022 MCV (RBC) [Entitic vol] 95.7 fL 80-94 [facility] Hematocrit Auto (Bld) [Volum e fraction]Ordered By: Dr. Del Valle on 08-30-2022 Hematocrit (Bld) [Volume fraction] 47.3 % 40-54 [facility] - Chemistry and C hemistry - challengeOrdered By: Dr. Del Valle on 08-30-2022 ALP [Catalytic activity/Vol] 84 U/L 45-117 [facility] ALT [Catalytic activity/Vol] 31 U/L 16-61 [facility] CO2 [Moles/Vol] 24.0 mmol/L 21.0-32.0 [facility] Globulin (S) [Mass/Vol] 3.6 g/dL 2.2-4.2 [facility] Urea nitrogen/Creatinine [Mass ratio] 10.8 mg/mg 10-20 [facility] - Hematology and Cell countsOrdered By: Dr. Del Valle on 08-30-2022 Erythrocyte distribution width (RBC) [Entitic vol] 49.3 fL 35.1-43.9 [facility] Erythrocyte distribution width (RBC) [Ratio] 13.9 % 11.6-14.6 [facility] Immature granulocytes/100 WBC (Bld) 0.700 % 0.0-0.9 [facility] Comment on above: IG% - Immature Granu locytes (promyelocytes, myelocytes and metamyelocytes) > 1% indicates that a LEFT SHIFT is Present. MCH (RBC) [Entitic mass] 31.6 pg 27.0-32.0 [facility] Nucleated RBC/100 WBC (Bld) [Ratio] 0 % 0-5 [facility] MCHC Auto (RBC) [Mass/Vol]Or dered By: Dr. Del Valle on 08-30-2022 MCHC (RBC) [Mass/Vol] 33.0 g/dL 32-36 [facility] No Panel InformationOrdered By: Dr. Del Valle on 08-30-2022 Estimated GFR (MDRD) Amer 91 mL/min >60 [facility] Comment on above: GFR Calc Estimated GFR (MDRD) Non-Af Amer 75 mL/min >60 [facility] Comment on above: Non- GFR Calc Thyroid Stimulating Hormone (TSH) 2.33 uIU/mL 0.358-3.74 [facility] Vitamin D 25-Hydroxy 79.6 ng/mL [facility] Comment on above: Vitamin D 25(OH) Sta tus Range Deficiency <20 ng/mL (50nmol/L) Insufficiency 20 - 30 ng/mL (50 - 75 nmol/L) Sufficiency 30 - 100 ng/mL (75 - 250 nmol/L) Toxicity >100 ng/mL (>250 nmol/L) Platelets bldOrdered By: Dr. Del Valle on 08-30-2022 Platelets (Bld) [#/Vol] 307 10*3/uL 150-450 [facility] Serum or plasma albumin jean urement (mass/volume)Ordered By: Dr. Del Valle on 08-30-2022 Albumin [Mass/Vol] 3.6 g/dL 3.2-5.0 [facility] Serum or plasma albumin/glob ulin mass ratioOrdered By: Dr. Del Valle on 08-30-2022 Albumin/Globulin [Mass ratio] 1.0 {ratio} 0.9-2.4 [facility] Serum or plasma calcium jean urement (mass/volume)Ordered By: Dr. Del Valle on 08-30-2022 Calcium [Mass/Vol] 9.2 mg/dL 8.5-10.1 [facility] Serum or plasma creatinine m easurement (mass/volume)Ordered By: Dr. Del Valle on 08-30-2022 Creatinine [Mass/Vol] 1.02 mg/dL 0.70-1.30 [facility] Comment on above: The validity of the calculated GFR & GFRAA in patients over 70 years has not been determined. Clinical correlation is essential. Serum or plasma urea nitroge n measurement (mass/volume)Ordered By: Dr. Del Valle on 08-30-2022 Urea nitrogen [Mass/Vol] 11 mg/dL 7-18 [facility] Thin prep Papanicolaou smear with manual screeningOrdered By: Dr. Del Valle on 08-30-2022 Thin prep Papanicolaou smear with manual screening 20 U/L 15-37 [facility] Thin prep Papanicolaou smear with manual screening 7 5-15 [facility] Absolute lymphocyte counton 03-01-2022 Lymphocytes Auto (Unsp spec) [#/Vol] 2.39 10*3/uL 0.83-4.51 [facility] Work Phone: Basophil percentageon 2021 Basophils/100 WBC (Bld) 0.5 % 0-1 [facility] Work Phone: Bilirubin [Mass/Vol] 0.60 mg/dL 0.20-1.00 [facility] Work Phone: Comment on above: For patients on eltr ombopag therapy, use of Dim[place] TBIL is not recommended. Chloride [Moles/Vol] 108 mmol/L 98-107 [facility] Work Phone: Eosinophils/100 WBC (Bld) 0.8 % 0-5 [facility] Work Phone: Glucose [Mass/Vol] 88 mg/dL 74-106 [facility] Work Phone: Neutrophils (Bld) [#/Vol] 4.2 10*3/uL 2.0-7.7 [facility] Work Phone: Neutrophils/100 WBC (Bld) 55.9 % 47-70 [facility] Work Phone: Potassium [Moles/Vol] 4.0 mmol/L 3.5-5.1 [facility] Work Phone: Protein [Mass/Vol] 7.5 g/dL 6.4-8.2 [facility] Work Phone: Sodium [Moles/Vol] 138 mmol/L 136-145 [facility] Work Phone: WBC (Bld) [#/Vol] 7.4 10*3/uL 4.4-11.0 [facility] Work Phone: Blood erythrocytes count (nu mber/volume)on 03-01-2022 RBC (Bld) [#/Vol] 4.92 10*6/uL 4.6-6.2 [facility] Work Phone: Blood hemoglobin measurement (mass/volume)on 03-01-2022 Hemoglobin (Bld) [Mass/Vol] 16.1 g/dL 13.0-16.5 [facility] Work Phone: Blood lymphocytes/100 leukoc yteson 03-01-2022 Lymphocytes/100 WBC (Bld) 32.2 % 19-41 [facility] Work Phone: Blood monocytes/100 leukocyt eson 03-01-2022 Monocytes/100 WBC (Bld) 10.2 % 0-10 [facility] Work Phone: Blood platelet mean volumeon 03-01-2022 Platelet mean volume (Bld) [Entitic vol] 10.0 fL 6.2-12.0 [facility] Work Phone: [phone] Determination of erythrocyte mean corpuscular volume (MCV)on 03-01-2022 MCV (RBC) [Entitic vol] 96.7 fL 80-94 [facility] Work Phone: Hematocrit Auto (Bld) [Volum e fraction]on 03-01-2022 Hematocrit (Bld) [Volume fraction] 47.6 % 40-54 [facility] Work Phone: Laboratory - Chemistry and C hemistry - challengeon 03-01-2022 ALP [Catalytic activity/Vol] 79 U/L 45-117 [facility] Work Phone: ALT [Catalytic activity/Vol] 42 U/L 16-61 [facility] Work Phone: CO2 [Moles/Vol] 23.0 mmol/L 21.0-32.0 [facility] Work Phone: Globulin (S) [Mass/Vol] 3.4 g/dL 2.2-4.2 [facility] Work Phone: Urea nitrogen/Creatinine [Mass ratio] 14.4 mg/mg 10-20 [facility] Work Phone: Laboratory - Hematology and Cell countson 03-01-2022 Erythrocyte distribution width (RBC) [Entitic vol] 50.2 fL 35.1-43.9 [facility] Work Phone: Erythrocyte distribution width (RBC) [Ratio] 14.0 % 11.6-14.6 [facility] Work Phone: Immature granulocytes/100 WBC (Bld) 0.400 % 0.0-0.9 [facility] Work Phone: Comment on above: IG% - Immature Granu locytes (promyelocytes, myelocytes and metamyelocytes) > 1% indicates that a LEFT SHIFT is Present. MCH (RBC) [Entitic mass] 32.7 pg 27.0-32.0 [facility] Work Phone: Nucleated RBC/100 WBC (Bld) [Ratio] 0 % 0-5 [facility] Work Phone: MCHC Auto (RBC) [Mass/Vol]on 03-01-2022 MCHC (RBC) [Mass/Vol] 33.8 g/dL 32-36 [facility] Work Phone: No Panel Informationon 03-01 Estimated GFR (MDRD) Amer 96 mL/min >60 [facility] Work Phone: Comment on above: GFR Calc Estimated GFR (MDRD) Non-Af Amer 80 mL/min >60 [facility] Work Phone: Comment on above: Non- GFR Calc Thyroid Stimulating Hormone (TSH) 1.81 uIU/mL 0.358-3.74 [facility] Work Phone: Vitamin D 25-Hydroxy 62.9 ng/mL [facility] Work Phone: Comment on above: Vitamin D 25(OH) Sta tus Range Deficiency <20 ng/mL (50nmol/L) Insufficiency 20 - 30 ng/mL (50 - 75 nmol/L) Sufficiency 30 - 100 ng/mL (75 - 250 nmol/L) Toxicity >100 ng/mL (>250 nmol/L) Platelets bldon 03-01-2022 Platelets (Bld) [#/Vol] 296 10*3/uL 150-450 [facility] Work Phone: Serum or plasma albumin jean urement (mass/volume)on 03-01-2022 Albumin [Mass/Vol] 4.1 g/dL 3.2-5.0 [facility] Work Phone: Serum or plasma albumin/glob ulin mass ratioon 03-01-2022 Albumin/Globulin [Mass ratio] 1.2 {ratio} 0.9-2.4 [facility] Work Phone: Serum or plasma calcium jean urement (mass/volume)on 03-01-2022 Calcium [Mass/Vol] 9.2 mg/dL 8.5-10.1 [facility] Work Phone: Serum or plasma creatinine m easurement (mass/volume)on 03-01-2022 Creatinine [Mass/Vol] 0.97 mg/dL 0.70-1.30 [facility] Work Phone: Comment on above: The validity of the calculated GFR & GFRAA in patients over 70 years has not been determined. Clinical correlation is essential. Serum or plasma urea nitroge n measurement (mass/volume)on 03-01-2022 Urea nitrogen [Mass/Vol] 14 mg/dL 7-18 [facility] Work Phone: Thin prep Papanicolaou smear with manual screeningon 03-01-2022 Thin prep Papanicolaou smear with manual screening 21 U/L 15-37 [facility] Work Phone: Thin prep Papanicolaou smear with manual screening 7 5-15 [facility] Work Phone: Basophil percentageon 2021 Chloride [Moles/Vol] 103 mmol/L 98-107 [facility] Work Phone: Glucose [Mass/Vol] 95 mg/dL 74-106 [facility] Work Phone: Potassium [Moles/Vol] 4.8 mmol/L 3.5-5.1 [facility] Work Phone: Sodium [Moles/Vol] 137 mmol/L 136-145 [facility] Work Phone: Laboratory - Chemistry and C hemistry - challengeon 10-07-2021 CO2 [Moles/Vol] 27.0 mmol/L 21.0-32.0 [facility] Work Phone: Urea nitrogen/Creatinine [Mass ratio] 12.3 mg/mg 10-20 [facility] Work Phone: No Panel Informationon 10-07 Estimated GFR (MDRD) Amer 69 mL/min >60 [facility] Work Phone: Comment on above: GFR Calc Estimated GFR (MDRD) Non-Af Amer 57 mL/min >60 [facility] Work Phone: Comment on above: Non- GFR Calc Serum or plasma calcium jean urement (mass/volume)on 10-07-2021 Calcium [Mass/Vol] 9.2 mg/dL 8.5-10.1 [facility] Work Phone: Serum or plasma creatinine m easurement (mass/volume)on 10-07-2021 Creatinine [Mass/Vol] 1.30 mg/dL 0.70-1.30 [facility] Work Phone: Comment on above: The validity of the calculated GFR & GFRAA in patients over 70 years has not been determined. Clinical correlation is essential. Serum or plasma urea nitroge n measurement (mass/volume)on 10-07-2021 Urea nitrogen [Mass/Vol] 16 mg/dL 7-18 [facility] Work Phone: Thin prep Papanicolaou smear with manual screeningon 10-07-2021 Thin prep Papanicolaou smear with manual screening 7 5-15 [facility] Work Phone: Basophil percentageon 2021 Chloride [Moles/Vol] 104 mmol/L 98-107 [facility] Work Phone: Glucose [Mass/Vol] 99 mg/dL 74-106 [facility] Work Phone: Potassium [Moles/Vol] 4.2 mmol/L 3.5-5.1 [facility] Work Phone: Sodium [Moles/Vol] 137 mmol/L 136-145 [facility] Work Phone: Laboratory - Chemistry and C hemistry - challengeon 09-23-2021 CO2 [Moles/Vol] 26.0 mmol/L 21.0-32.0 [facility] Work Phone: Urea nitrogen/Creatinine [Mass ratio] 10.6 mg/mg 10-20 [facility] Work Phone: No Panel Informationon 09-23 Estimated GFR (MDRD) Amer 89 mL/min >60 [facility] Work Phone: Comment on above: GFR Calc Estimated GFR (MDRD) Non-Af Amer 74 mL/min >60 [facility] Work Phone: Comment on above: Non- GFR Calc Serum or plasma calcium jean urement (mass/volume)on 09-23-2021 Calcium [Mass/Vol] 9.2 mg/dL 8.5-10.1 [facility] Work Phone: Serum or plasma creatinine m easurement (mass/volume)on 09-23-2021 Creatinine [Mass/Vol] 1.04 mg/dL 0.70-1.30 [facility] Work Phone: Comment on above: The validity of the calculated GFR & GFRAA in patients over 70 years has not been determined. Clinical correlation is essential. Serum or plasma urea nitroge n measurement (mass/volume)on 09-23-2021 Urea nitrogen [Mass/Vol] 11 mg/dL 7-18 [facility] Work Phone: Thin prep Papanicolaou smear with manual screeningon 09-23-2021 Thin prep Papanicolaou smear with manual screening 7 5-15 [facility] Work Phone: Basophil percentageon 2021 Chloride [Moles/Vol] 101 mmol/L 98-107 [facility] Work Phone: Glucose [Mass/Vol] 97 mg/dL 74-106 [facility] Work Phone: Potassium [Moles/Vol] 4.5 mmol/L 3.5-5.1 [facility] Work Phone: Sodium [Moles/Vol] 137 mmol/L 136-145 [facility] Work Phone: Laboratory - Chemistry and C hemistry - challengeon 09-09-2021 CO2 [Moles/Vol] 29.0 mmol/L 21.0-32.0 [facility] Work Phone: Urea nitrogen/Creatinine [Mass ratio] 9.8 mg/mg 10-20 [facility] Work Phone: No Panel Informationon 09-09 Estimated GFR (MDRD) Amer 82 mL/min >60 [facility] Work Phone: Comment on above: GFR Calc Estimated GFR (MDRD) Non-Af Amer 68 mL/min >60 [facility] Work Phone: Comment on above: Non- GFR Calc Serum or plasma calcium jean urement (mass/volume)on 09-09-2021 Calcium [Mass/Vol] 9.4 mg/dL 8.5-10.1 [facility] Work Phone: Serum or plasma creatinine m easurement (mass/volume)on 09-09-2021 Creatinine [Mass/Vol] 1.12 mg/dL 0.70-1.30 [facility] Work Phone: Comment on above: The validity of the calculated GFR & GFRAA in patients over 70 years has not been determined. Clinical correlation is essential. Serum or plasma urea nitroge n measurement (mass/volume)on 09-09-2021 Urea nitrogen [Mass/Vol] 11 mg/dL 7-18 [facility] Work Phone: Thin prep Papanicolaou smear with manual screeningon 09-09-2021 Thin prep Papanicolaou smear with manual screening 7 5-15 [facility] Work Phone: Absolute lymphocyte counton 08-26-2021 Lymphocytes Auto (Unsp spec) [#/Vol] 2.97 10*3/uL 0.83-4.51 [facility] Work Phone: Basophil percentageon 2021 Basophils/100 WBC (Bld) 0.4 % 0-1 [facility] Work Phone: Bilirubin [Mass/Vol] 0.60 mg/dL 0.20-1.00 [facility] Work Phone: Comment on above: For patients on eltr ombopag therapy, use of Dimension [place] TBIL is not recommended. Chloride [Moles/Vol] 103 mmol/L 98-107 [facility] Work Phone: Eosinophils/100 WBC (Bld) 0.8 % 0-5 [facility] Work Phone: Glucose [Mass/Vol] 98 mg/dL 74-106 [facility] Work Phone: Neutrophils (Bld) [#/Vol] 5.3 10*3/uL 2.0-7.7 [facility] Work Phone: Neutrophils/100 WBC (Bld) 56.0 % 47-70 [facility] Work Phone: Potassium [Moles/Vol] 4.4 mmol/L 3.5-5.1 [facility] Work Phone: Protein [Mass/Vol] 7.5 g/dL 6.4-8.2 [facility] Work Phone: Sodium [Moles/Vol] 138 mmol/L 136-145 [facility] Work Phone: WBC (Bld) [#/Vol] 9.5 10*3/uL 4.4-11.0 [facility] Work Phone: Blood erythrocytes count (nu mber/volume)on 08-26-2021 RBC (Bld) [#/Vol] 4.91 10*6/uL 4.6-6.2 [facility] Work Phone: Blood hemoglobin measurement (mass/volume)on 08-26-2021 Hemoglobin (Bld) [Mass/Vol] 15.3 g/dL 13.0-16.5 [facility] Work Phone: Blood lymphocytes/100 leukoc yteson 08-26-2021 Lymphocytes/100 WBC (Bld) 31.2 % 19-41 [facility] Work Phone: Blood monocytes/100 leukocyt eson 08-26-2021 Monocytes/100 WBC (Bld) 10.9 % 0-10 [facility] Work Phone: Blood platelet mean volumeon 08-26-2021 Platelet mean volume (Bld) [Entitic vol] 9.8 fL 6.2-12.0 [facility] Work Phone: [phone] Determination of erythrocyte mean corpuscular volume (MCV)on 08-26-2021 MCV (RBC) [Entitic vol] 94.5 fL 80-94 [facility] Work Phone: Hematocrit Auto (Bld) [Volum e fraction]on 08-26-2021 Hematocrit (Bld) [Volume fraction] 46.4 % 40-54 [facility] Work Phone: [phone] Laboratory - Chemistry and C hemistry - challengeon 08-26-2021 ALP [Catalytic activity/Vol] 93 U/L 45-117 [facility] Work Phone: ALT [Catalytic activity/Vol] 52 U/L 16-61 [facility] Work Phone: CO2 [Moles/Vol] 29.0 mmol/L 21.0-32.0 [facility] Work Phone: Globulin (S) [Mass/Vol] 3.6 g/dL 2.2-4.2 [facility] Work Phone: Urea nitrogen/Creatinine [Mass ratio] 9.8 mg/mg 10-20 [facility] Work Phone: Laboratory - Hematology and Cell countson 08-26-2021 Erythrocyte distribution width (RBC) [Entitic vol] 51.1 fL 35.1-43.9 [facility] Work Phone: Erythrocyte distribution width (RBC) [Ratio] 14.6 % 11.6-14.6 [facility] Work Phone: Immature granulocytes/100 WBC (Bld) 0.700 % 0.0-0.9 [facility] Work Phone: Comment on above: IG% - Immature Granu locytes (promyelocytes, myelocytes and metamyelocytes) > 1% indicates that a LEFT SHIFT is Present. MCH (RBC) [Entitic mass] 31.2 pg 27.0-32.0 [facility] Work Phone: Nucleated RBC/100 WBC (Bld) [Ratio] 0 % 0-5 [facility] Work Phone: MCHC Auto (RBC) [Mass/Vol]on 08-26-2021 MCHC (RBC) [Mass/Vol] 33.0 g/dL 32-36 [facility] Work Phone: No Panel Informationon 08-26 Estimated GFR (MDRD) Amer 74 mL/min >60 [facility] Work Phone: Comment on above: GFR Calc Estimated GFR (MDRD) Non-Af Amer 61 mL/min >60 [facility] Work Phone: Comment on above: Non- GFR Calc Thyroid Stimulating Hormone (TSH) 1.05 uIU/mL 0.358-3.74 [facility] Work Phone: Vitamin D 25-Hydroxy 52.0 ng/mL [facility] Work Phone: Comment on above: Vitamin D 25(OH) Sta tus Range Deficiency <20 ng/mL (50nmol/L) Insufficiency 20 - 30 ng/mL (50 - 75 nmol/L) Sufficiency 30 - 100 ng/mL (75 - 250 nmol/L) Toxicity >100 ng/mL (>250 nmol/L) Platelets bldon 08-26-2021 Platelets (Bld) [#/Vol] 302 10*3/uL 150-450 [facility] Work Phone: Serum or plasma albumin jean urement (mass/volume)on 08-26-2021 Albumin [Mass/Vol] 3.9 g/dL 3.2-5.0 [facility] Work Phone: Serum or plasma albumin/glob ulin mass ratioon 08-26-2021 Albumin/Globulin [Mass ratio] 1.1 {ratio} 0.9-2.4 [facility] Work Phone: Serum or plasma calcium jean urement (mass/volume)on 08-26-2021 Calcium [Mass/Vol] 9.1 mg/dL 8.5-10.1 [facility] Work Phone: Serum or plasma creatinine m easurement (mass/volume)on 08-26-2021 Creatinine [Mass/Vol] 1.22 mg/dL 0.70-1.30 [facility] Work Phone: Comment on above: The validity of the calculated GFR & GFRAA in patients over 70 years has not been determined. Clinical correlation is essential. Serum or plasma urea nitroge n measurement (mass/volume)on 08-26-2021 Urea nitrogen [Mass/Vol] 12 mg/dL 7-18 [facility] Work Phone: Thin prep Papanicolaou smear with manual screeningon 08-26-2021 Thin prep Papanicolaou smear with manual screening 29 U/L 15-37 [facility] Work Phone: Thin prep Papanicolaou smear with manual screening 6 5-15 [facility] Work Phone: CNOVon 10-10-2017 CNOV Office Visit (AGGENS1) --CRISTINA JEFFREY ([id number]) 1945 MDate Time Provider Department10/10/17 11:30 AM VENUS FOSTER During your visit today, we recorded the following information about you: Pulse Blood pressure Weight Height 96/minute 108/64 77.6 kg 1.753 Anum Foster MD 10/10/2017 11:54 AM SignedYou may follow-up as neededVenus Foster MD 10/10/2017 11:56 AM SignedPatient referred by:SELFPatient presents with:Post-Op VisitHPI: This is a post operative visit. 72-year-old male status post laparoscopicgastrojejunostomy with truncal vagotomy. He is doing quite well. He has nopain. He has no nausea or vomiting. He is eating without issues. He has nodiarrhea or constipation. He is back in his blood thinners. He has no blood inhis stool. He is taking Protonix twice a day.PAST MEDICAL HISTORYDiagnosis Date- Afib (HCC)- CHF (congestive heart failure) (HCC)- COPD (chronic obstructive pulmonary disease) (HCC)- HypertensionPAST SURGICAL HISTORYProcedure Laterality Date- EGD 06/21/2017 Multiple antral ulcers with 1 large ulcer with a visible vessel at its base asthe source of bleeding. A large ulcer at the pre-pyloric region- EGD 06/23/2017 NG tube induced mucosal tear at GE junction, without bleeding. Multiple ulcersat distal antrum and pyloric channel with significant deformity. PreviouslyEndoclipped and epinephrine injected ulcer is not bleeding and visible vesselhas resolved. 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 Normalduodenum- TUMOR REMOVAL (SPECIFY LOCATION) HX breast, childhoodNo family history on file.Social History Marital status: Spouse name: Years of education: Number of children:Social History Main Topics Smoking status: Never Smoker Smokeless tobacco: Never Used Alcohol use: No Comment: quit 6 months ago Drug use: NoCurrent Outpatient Prescriptions:apixaban (ELIQUIS) 5 mg tab(s) Take 1 tablet by mouth twice daily.metoprolol tartrate, short acting, (LOPRESSOR) 50 mg tablet Take 50 mg by mouthtwice daily.potassium chloride 20 mEq TbER Take 20 mEq by mouth once daily.ergocalciferol, vitamin D2, (VITAMIN D) 50,000 unit capsule Take 50,000 Unitsby mouth as directed. Take 1 capsule once weekly for 8 weeks, then take 1capsule once monthly thereafterFirst fill on 08/28/17diltiazem CD (CARDIZEM CD, CARTIA XT) 240 mg 24 hr capsule Take 1 capsule bymouth once daily.pantoprazole DR (PROTONIX) 40 mg tablet Take 1 tablet by mouth twice daily.Vit A,C,D-Bjyi-Eydmbr (PRESERVISION AREDS) 14,320-226-200 [id number] capTake 1 capsule by mouth twice daily.albuterol (PROVENTIL) 2.5 mg /3 mL (0.083 %) nebulizer solution Use 2.5 mg vianebulizer every 4 hours as needed for Wheezing/Shortness of Breath.pravastatin (PRAVACHOL) 40 mg tablet Take 40 mg by mouth once daily.budesonide-formoterol (SYMBICORT) 160-4.5 mcg/actuation inhaler Inhale 2 Puffsas instructed twice daily.furosemide (LASIX) 40 mg tablet Take 40 mg by mouth twice daily.Bismuth Subsalicylate (PEPTO-BISMOL) 262 mg tab Take 1 tablet by mouth twicedaily for 14 days.No current facility-administered medications for this visit.ALLERGIESAllergen Reactions- Aspirin Other: See Comments GI bleed; ulcer bleedREVIEW OF SYSTEMS:GENERAL: No weight loss, malaise or feversGI: Negative for abdominal pain, nausea , vomiting, diarrhea, constipation andsigns of jaundice Positive for nonePHYSICAL EXAM:BP 108/64 Pulse 96 Ht 5' 9" (1.75m) Wt 171 lb (77.6kg) SpO2 97% BMI25.24 kg/(m2).GENERAL APPEARANCE: Well appearing, alert, in no acute distress, well-hydrated,well nourished..ABDOMEN: Abdomen is soft. Incisions are healing well. There are no signs ofinfection.NEURO: Alert, oriented x3, no asterixis, speech clear and articulate and MAEDATA:Diagnostic tests reviewed for today's visit:Pathology report reviewedGreater than 50% of the direct patient contact time was spent in counseling orcoordination of care.ASSESSMENT / PLAN1. Gastric outlet obstructionPathology showed the resection ?2. From my standpoint he is doing well. He doesnot need any further follow-up.Venus Foster MDReferrloco Provider: SELF [[id number]]Allergies As of Date: 10/10/2017 Noted Allergy ReactionASPIRIN 09/16/2017 14 - Other: See Comments Comments: GI bleed; ulcer bleedDate Reviewed: 10/10/2017Reviewed by: Venus Foster - Fully AssessedReason for Visit: Post-Op Visit [1236]Primary Visit Diagnosis:Gastric outlet obstruction [K31.1]Prescriptions as of 10/10/2017 Sig: APIXABAN 5 MG TABLET Take 1 tablet by mouth twice * METOPROLOL TARTRATE 50 MG TAB* Take 50 mg by mouth twice asmita* POTASSIUM CHLORIDE ER 20 MEQ * Take 20 mEq by mouth once asmita* ERGOCALCIFEROL (VITAMIN D2) 5* Take 50,000 Units by mouth as* DILTIAZEM SR 240 MG 24 HR CAP Take 1 capsule by mouth once * PANTOPRAZOLE 40 MG TABLET,DEL* Take 1 tablet by mouth twice * VITAMINS A,C,R-QEQP-WFYYOH 1* Take 1 capsule by mouth twice* ALBUTEROL SULFATE 2.5 MG/3 ML* Use 2.5 mg via nebulizer ever* PRAVASTATIN 40 MG TABLET Take 40 mg by mouth once jean marie* BUDESONIDE-FORMOTEROL HFA 160* Inhale 2 Puffs as instructed * FUROSEMIDE 40 MG TABLET Take 40 mg by mouth twice asmita* BISMUTH SUBSALICYLATE 262 MG * Take 1 tablet by mouth twice *Problem List As Of Date 10/10/2017 Noted Resolved Shock (HCC) [R57.9] INVALID FOR* COPD (chronic obstructive pulmonary disease) (H*INVALID FOR* Hypertension [I10] INVALID FOR* Atrial fibrillation (HCC) [I48.91] INVALID FOR*2017 Hyperlipidemia [E78.5] INVALID FOR* GI bleeding [K92.2] INVALID FOR* More... Acute respiratory failure with hypoxia and hype*INVALID FOR* Acute blood loss anemia [D62] INVALID FOR* Hemorrhagic shock (HCC) [R57.8] INVALID FOR* Hypophosphatemia [E83.39] INVALID FOR* Atrial fibrillation with rapid ventricular resp*INVALID FOR* Severe protein-calorie malnutrition (HCC) [E43] INVALID FOR* Atrial fibrillation with RVR (HCC) [I48.91] INVALID FOR* Hematemesis [K92.0] INVALID FOR* More... Gastric outlet obstruction [K31.1] INVALID FOR* More... Hypokalemia [E87.6] INVALID FOR* Gastroesophageal reflux disease [K21.9] INVALID FOR* Metabolic alkalosis [E87.3] INVALID FOR* Other fatigue [R53.83] INVALID FOR* Paroxysmal supraventricular tachycardia (HCC) [*INVALID FOR* Shortness of breath [R06.02] INVALID FOR* Other instructions from your clinician: You may follow-up as neededEncounter Number: [id number] Status:Closed by VENUS FOSTER MD on 10/10/17 [facility] PROGRESSon 10-10-2017 Protein mass conc HNO ID: [id number] thor: Venus Harrison: (none)Author Type: PhysicianType: Progress NotesFiled: 10/10/2017 11:56 AMNote Text:Patient referred by:SELFPatient presents with:Post-Op VisitHPI: This is a post operative visit. 72-year-old male status postlaparoscopic gastrojejunostomy with truncal vagotomy. He is doing quitewell. He has no pain. He has no nausea or vomiting. He is eating withoutissues. He has no diarrhea or constipation. He is back in his bloodthinners. He has no blood in his stool. He is taking Protonix twice a day.PAST MEDICAL HISTORYDiagnosis Date- Afib (HCC)- CHF (congestive heart failure) (HCC)- COPD (chronic obstructive pulmonary disease) (HCC)- HypertensionPAST SURGICAL HISTORYProcedure Laterality Date- EGD 06/21/2017 Multiple antral ulcers with 1 large ulcer with a visible vessel at itsbase as the source of bleeding. A large ulcer at the pre-pyloric region- EGD 06/23/2017 NG tube induced mucosal tear at GE junction, without bleeding. Multipleulcers at distal antrum and pyloric channel with significant deformity.Previously Endoclipped and epinephrine injected ulcer is not bleeding andvisible vessel has resolved. Large pyloric channel ulcer with deformityand stenosis with intermittent oozing of blood diffusely without anyvisible vessel. Normal duodenum- TUMOR REMOVAL (SPECIFY LOCATION) HX breast, childhoodNo family history on file.Social History Marital status: Spouse name: Years of education: Number of children:Social History Main Topics Smoking status: Never Smoker Smokeless tobacco: Never Used Alcohol use: No Comment: quit 6 months ago Drug use: NoCurrent Outpatient Prescriptions:apixaban (ELIQUIS) 5 mg tab(s) Take 1 tablet by mouth twice daily.metoprolol tartrate, short acting, (LOPRESSOR) 50 mg tablet Take 50 mg bymouth twice daily.potassium chloride 20 mEq TbER Take 20 mEq by mouth once daily.ergocalciferol, vitamin D2, (VITAMIN D) 50,000 unit capsule Take 50,000Units by mouth as directed. Take 1 capsule once weekly for 8 weeks, thentake 1 capsule once monthly thereafterFirst fill on 08/28/17diltiazem CD (CARDIZEM CD, CARTIA XT) 240 mg 24 hr capsule Take 1 capsuleby mouth once daily.pantoprazole DR (PROTONIX) 40 mg tablet Take 1 tablet by mouth twicedaily.Vit A,C,M-Aomx-Rexaad (PRESERVISION AREDS) 14,320-226-200 xmpg-hl-[id number] Take 1 capsule by mouth twice daily.albuterol (PROVENTIL) 2.5 mg /3 mL (0.083 %) nebulizer solution Use 2.5 mgvia nebulizer every 4 hours as needed for Wheezing/Shortness of Breath.pravastatin (PRAVACHOL) 40 mg tablet Take 40 mg by mouth once daily.budesonide-formoterol (SYMBICORT) 160-4.5 mcg/actuation inhaler Inhale 2Puffs as instructed twice daily.furosemide (LASIX) 40 mg tablet Take 40 mg by mouth twice daily.Bismuth Subsalicylate (PEPTO-BISMOL) 262 mg tab Take 1 tablet by mouthtwice daily for 14 days.No current facility-administered medications for this visit.ALLERGIESAllergen Reactions- Aspirin Other: See Comments GI bleed; ulcer bleedREVIEW OF SYSTEMS:GENERAL: No weight loss, malaise or feversGI: Negative for abdominal pain, nausea , vomiting, diarrhea, constipationand signs of jaundice Positive for nonePHYSICAL EXAM:BP 108/64 Pulse 96 Ht 5' 9" (1.75m) Wt 171 lb (77.6kg) SpO2 97% BMI 25.24 kg/(m2).GENERAL APPEARANCE: Well appearing, alert, in no acute distress,well-hydrated, well nourished..ABDOMEN: Abdomen is soft. Incisions are healing well. There are no signsof infection.NEURO: Alert, oriented x3, no asterixis, speech clear and articulate andMAEDATA:Diagnostic tests reviewed for today's visit:Pathology report reviewedGreater than 50% of the direct patient contact time was spent incounseling or coordination of care.ASSESSMENT / PLAN1. Gastric outlet obstructionPathology showed the resection ?2. From my standpoint he is doing well. Hedoes not need any further follow-up.Venus Foster MD [facility] Basic Panelon 09-28-2017 Creatinine 0.69 mg/dL Normal 0.67-1.[address] [facility] Comment on above: Performed By: #### P PHRS ####[facility] [place], [place] [address] Urea nitrogen 13 mg/dL Normal 7-[address] [facility] Comment on above: Performed By: #### P PHRS ####[facility] [place], [place] [address] Anion gap 9 mmol/L Normal 8-[address] [facility] Comment on above: Performed By: #### P PHRS ####[facility] [place], [place] [address] Calcium 8.2 mg/dL Low 8.5-10.[address] [facility] Comment on above: Performed By: #### P PHRS ####[facility] [place], [place] [address] CO2 25 mmol/L Normal 21-[address] [facility] Comment on above: Performed By: #### P PHRS ####[place] [address] Glucose mass conc 86 mg/dL Normal 70-[address] [facility] Comment on above: Performed By: #### P PHRS ####[place] [address] Chloride 108 mmol/L High 98-[address] [facility] Comment on above: Performed By: #### P PHRS ####[facility] [place] [address] Potassium molar conc 4.1 mmol/L Normal 3.5-5.1 [facility] Comment on above: Performed By: #### P PHRS ####[place] [address] Sodium 138 mmol/L Normal 136-[address] [facility] Comment on above: Performed By: #### P PHRS ####[place] [address] CASE MANAGEMon 09-28-2017 CASE MANAGEM HNO ID: [id number] thor: KELLY Carey Rnervice: Care ManagementAuthor Type: Registered NurseType: Care Mgt Progress NoteFiled: 09/28/2017 11:54 AMNote Text:CARE MANAGEMENT PROGRESS NOTESERVICE DATE: 09/28/2017SERVICE TIME: 11:53 AM LOS: 16 daysNeeds Prior to Discharge: Ready for [facility] order complete. Transport by to [facility] arranged for 3pm. Ptnotified, RN aware. Pt states he will call is family to notifySIGNATURE: Lakia Guillen RN PATIENT NAME: Cristina JeffreyDATE: September 28, 2017 : 11:53 AM PAGER/CONTACT #: [phone] [facility] CASE MANAGEM HNO ID: [id number] thor: KELLY Carey Rnervice: Care ManagementAuthor Type: Registered NurseType: Care Mgt Progress NoteFiled: 09/28/2017 9:50 AMNote Text:CARE MANAGEMENT PROGRESS NOTESERVICE DATE: 09/28/2017SERVICE TIME: 9:49 AM LOS: [facility] Godfrey notified and will DC today. Await DCordersSIGNATURE: Lakia Guillen RN PATIENT NAME: Cristina JeffreyDATE: September 28, 2017 : 9:49 AM PAGER/CONTACT #: [phone] [facility] CASE MANAGEM HNO ID: [id number] thor: Lakia (Rn) Mindy, RNService: Care ManagementAuthor Type: Registered NurseType: Care Mgt Progress NoteFiled: 09/28/2017 8:36 AMNote Text:CARE MANAGEMENT PROGRESS NOTESERVICE DATE: 09/28/2017SERVICE TIME: 8:35 AM LOS: 16 daysNeeds Prior to Discharge: Accepting Facility;Discharge TransportationWaiting for acceptance to [facility]. Sent message to facility to inquire.No precert needed when acceptedSIGNATURE: Lakia Guillen RN PATIENT NAME: Cristina JeffreyDATE: September 28, 2017 : 8:34 AM PAGER/CONTACT #: [phone] Normal [facility] Glucose Meteron 09-28-2017 Glucose mass conc 97 mg/dL Normal 70-[address] [facility] Comment on above: Result Comment: RN N OTIFIED Performed By: #### P PHRS ####[place] [address] Hemogram/Diffon 09-28-2017 Abs Immature Grans 0.05 thou/cmm Normal 0.00-0.05 [facility] Comment on above: Performed By: #### P PHRS ####[place] [address] Abs. Baso 0.03 thou/cmm Normal 0.01-0.[address] [facility] Comment on above: Performed By: #### P PHRS ####[place] [address] Abs. [place] 0.58 thou/cmm Normal 0.30-0.[address] [facility] Comment on above: Performed By: #### P PHRS ####[place] [address] Abs. Neut (ANC) 2.70 thou/cmm Normal 1.78-5.[address] [facility] Comment on above: Performed By: #### P PHRS ####[address] [address] Basophils/100 WBC Auto (Bld) 0.5 % Normal [facility] Comment on above: Performed By: #### P PHRS ####[address] [address] Eosinophils 0.47 thou/cmm Normal 0.04-0.[address] [facility] Comment on above: Performed By: #### P PHRS ####[place] [address] Eosinophils/100 leukocytes 7.5 % Normal [facility] Comment on above: Performed By: #### P PHRS ####[place] [address] Erythrocyte distribution width Auto Ratio (RBC) 16.2 % High 11.6-14.[address] [facility] Comment on above: Performed By: #### P PHRS ####[place] [address] Erythrocytes (RBC) 2.98 mil/cmm Low 4.63-6.08 [facility] Comment on above: Performed By: #### P PHRS ####[place] [address] Hematocrit (HCT) 26.0 % Low 40.1-51.[address] [facility] Comment on above: Performed By: #### P PHRS ####[place] [address] Hemoglobin mass conc (Bld) 8.1 g/dL Low 13.7-17.[address] [facility] Comment on above: Performed By: #### P PHRS ####[place] [address] Immature Grans 0.80 % Normal [facility] Comment on above: Performed By: #### P PHRS ####[place] [address] Lymphocytes 2.43 thou/cmm Normal 0.84-2.[address] [facility] Comment on above: Performed By: #### P PHRS ####[address] [address] Lymphocytes/100 leukocytes 38.8 % Normal [facility] Comment on above: Performed By: #### P PHRS ####[address] [address] MCH 27.2 pg Normal 25.7-32.[address] [facility] Comment on above: Performed By: #### P PHRS ####[address] [address] MCHC mass conc (RBC) 31.2 % Low 32.3-36.5 [facility] Comment on above: Performed By: #### P PHRS ####[address] [address] MCV 87.2 fL Normal 83.2-95.[address] [facility] Comment on above: Performed By: #### P PHRS ####[address] [address] Monocytes/100 leukocytes 9.3 % Normal [facility] Comment on above: Performed By: #### P PHRS ####[address] [address] Platelet mean volume (PMV) 9.7 fL Normal 8.7-12.[address] [facility] Comment on above: Performed By: #### P PHRS ####[address] [address] Platelets 430 thou/cmm High 141-[address] [facility] Comment on above: Performed By: #### P PHRS ####[address] [address] RDW SD 51.8 fl High 36.1-45.[address] [facility] Comment on above: Performed By: #### P PHRS ####[address] [address] Seg Neutrophil 43.1 % Normal [facility] Comment on above: Performed By: #### P PHRS ####[address] [address] WBC (Leukocytes) 6.27 thou/cmm Normal 4.23-9.[address] [facility] Comment on above: Performed By: #### P PHRS ####[place] [id number] MDRD GFRon 09-28-2017 eGFR (non-black) mL/min/{1.73_m2} Normal >60mL/m in/ 1.73m2 [facility] Comment on above: Result Comment: If t he patient is , multiply the result by 1.210. Performed By: #### P PHRS ####[place] [id number] NURSING PROGon 09-28-2017 Protein mass conc HNO ID: [id number] thor: Michelle (Rn) KELLY Sampsonervice: NursingAuthor Type: Registered NurseType: Nursing Progress NoteFiled: 09/28/2017 5:02 AMNote Text:Pt HR sustaining 140's. Pt up to bathroom. Once returning to bed, pt stillsustaining 130's. Spoke with Dr. Bailey with surgery. Dr paul RN toadminister 0600 Met[address] early. [address] ahmadi RN to page himback within an hour if pt's HR doesn't come back down. Will continue tomonitor. Normal [facility] NUTRITIONon 09-28-2017 NUTRITION HNO ID: [id number] thor: OUMOU Davis Rdervice: Nutrition TherapyAuthor Type: Registered DietitianType: NutritionFiled: 09/28/2017 1:52 PMNote Text:NUTRITION SUPPORT TEAMTOPIC: NUTRITION SUPPORT TEAM PROGRESS NOTEPATIENT NAME: Cristina JeffreyMRN: [id number] OF : 1945DATE: 09/28/2017Nutritional Status: SEVERE PROTEIN CALORIE MALNUTRITION in the context ofacute Illness or Injury based on energy intake and weight lossNew HPN Patient? NoInterval History: Doing well off tpn. Tolerating GI soft diet and eating>75% of meals. Pain controlled. +stool. ECF planning pending.Assessment: ?72 year old male who presented to the ED after being sentfrom endoscopy. ?He was scheduled for EGD and the procedure was notperformed because patient went into a-fib with RVR. ?He is not onanticoagulation. ?He was recently admitted for UGI bleed that requiredbranches of the GDA and gastroepiploic artery embolized on 06/23/2017. ?Hehad 2 EGDs that admission with clips/epi administration. ?He has recurrentgastric ulcers for the majority of his life according to patient.+?5-8 lb weight loss over the past few months. ?He has been vomiting forthe past day.?Recommendations:Continue to encourage adequate intakeMonitor for PO intolerances Vitals:Temperature Max in 24 hours: Temp (24hrs), Av.4 ?C (97.6 ?F), Min:36?C (96.8 ?F), Max:36.8 ?C (98.2 ?F)Current Vital Signs: BP 119/63 Pulse 90 Temp 36 ?C (96.8 ?F) (Oral) Resp 16 Ht 175.3 cm (5' 9.02") Wt 81.9 kg (180 lb 8 oz) PaN359% BMI 26.64 kg/m?Current Weight: Weight: 81.9 kg (180 lb 8 oz)Intake AND Output:Intake/Output Summary (Last 24 hours) at 09/28/17 1349Last data filed at 09/28/17 1226 Gross per 24 hourIntake 240 mlOutput 582 mlNet -342 mlLaboratory Data:Recent Labs 09/27/1802NA 138 140 139K 4.1 4.2 4.4CHLOR 108* 108* 108*CO2 25 27 26CREAT 0.69 0.55* 0.58*BUN 13 12 9GLUC 86 82 104*CA 8.2* 8.1* 8.5Recent Labs 045213BYCDKG 19.7*Accuchecks: No results found for: PCGLUCOSETricnaomy Matias RDPager: [id number]: 2 Normal [facility] PROGRESSon 09-28-2017 Protein mass conc HNO ID: [id number] thor: Jaren (Res) EpifanioService: General SurgeryAuthor Type: ResidentType: Progress NotesFiled: 09/28/2017 8:50 AMNote Text: At testation signed by Venus Foster at 09/28/2017 10:55 AMAttjayjay Ochoa personally saw and examined the patient. I reviewed the resident's noteAntonina Miller with the resident's assessment and plan with the following revisionsand/or additions: await placementSignature: Venus Foster, MDDate: 09/28/2017Time: 10:55 AM PROGR ESS NOTEElective Surgery Progress NoteSERVICE DATE: 09/28/2017SERVICE TIME: 11:04 AMSUBJECTIVE:SubjectiveSubjec tive: This is a 72 year old male s/p truncal vagotomy andgastrojejunostomyPt feels well. +amb, pain controled.Bowel movement YesFlatus YesDiet DIET GASTRO INTESTINALAmbulating YesNausea NoEmesis NoCurrent Facility-Administered Medications:oxyCODONE IR 5 mg tab(s) (ROXICODONE) 5 mg ORAL q 4 H PRNapixaban 5 mg tab(s) (ELIQUIS) 5 mg ORAL BIDtamsulosin ER 0.4 mg cap(s) (FLOMAX) 0.4 mg ORAL DAILYsenna-docusate 8.6-50 mg 1 tablet (SENNA-S) 1 tablet ORAL BIDpill manager critical care unit (patient-specific) 1 Each Miscell. (Med.Supl.;Non-Drugs) PRNdiltiazem 30 mg tab(s) (CARDIZEM) 30 mg NASOGASTRIC q 6 Hdigoxin 0.25 mg tab(s) (LANOXIN) 0.25 mg NASOGASTRIC DAILYmetoprolol tartrate (short acting) 25 mg tab(s) (LOPRESSOR) 25 mgNASOGASTRIC q 8 Hacetaminophen 650 mg tab(s) (TYLENOL) 650 mg ORAL q 6 Hondansetron 4 mg tab(s) (ZOFRAN) 4 mg ORAL q 6 H PRNOrondansetron (PF) 4 mg injection (ZOFRAN) 4 mg INTRAVENOUS q 6 H PRNlidocaine 10 mg/mL (1 %) 1-2 mg injection (XYLOCAINE) 0.1-0.2 mLINTRADERMAL PRNpantoprazole 40 mg injection (PROTONIX) 40 mg INTRAVENOUS BID AC(0600/1600)albuterol 2.5 mg /3 mL (0.083 %) 2.5 mg (PROVENTIL) 2.5 mg INHALATION q 4H PRNdextran 70-hypromellose 0.1-0.3 % 1 Drop ophthalmic drops (NATURAL BALANCETEARS) 1 Drop BOTH EYES PRNphenol 1 Nineveh (CHLORASEPTIC) 1 Nineveh MUCOUS MEMBRANE (TOPICAL MOUTH ANDTHROAT) q 2 H PRNbenzocaine-menthol 1 Lozenge (CEPACOL) 1 Lozenge MUCOUS MEMBRANE (TOPICALMOUTH AND THROAT) q 2 H PRN0.9% NaCl 10 mL 10 mL INTRAVENOUS q 12 H0.9% NaCl 20 mL 20 mL INTRAVENOUS PRNiv contrast (radiology procedure) INTRAVENOUS DIRECTED PRNOBJECTIVE:ObjectivePHYSICA L EXAM:VITAL SIGNSBP 100/58 Pulse 100 Temp (Src) 97.2 (Oral) Resp 20 Ht 5' 9.016"(1.75m) Wt 180 lb 8 oz (81.9kg) SpO2 97% BMI 26.64 kg/(m2).Temp (24hrs), Av.6 ?C (97.9 ?F), Min:36.2 ?C (97.2 ?F), Max:36.8 ?C(98.2 ?F)Date 09/27/17699 - 09/28/1765809/28/17699 - 09/29/17 0659Shift 0119-3667 2322-0438 1955-1755 24 Hour Total 8683-9504 [id number] 24 Hour TotalINTAKE PO 700 700 240 240 PO 700 700 240 240 IV 225 225 LR 225 225 Shift Total 925 925 240 240OUTPUT Urine 201 130 275 606 1 1 Void (ml) 200 130 275 605 Urine Not Saved 1 1 1 1 # of BMs Number of BMs 1 x 1 x 1 x 3 x Shift Total 201 130 275 606 1 1Weight (kg) 78.1 78.1 81.9 81.9 81.9 81.9 81.9 81.9GENERAL: Alert, no distress, cooperativeSKIN: Skin color, texture, turgor normal. No rashes or lesions.LUNGS: Unlabored breathing on O2 Therapy: Nasal Cannula on Liters: 2sating at SpO2: 98 %CARDIAC: rate and rhythm as above,ABDOMEN: Benign, Soft, No masses, hepatosplenomegaly, No lymphadenopathyand Mild tenderness in GeneralizedEXTREMITIES: ROM of all joint grossly normal: strength grossly normalbilaterally. No deformities noted.WOUND: No issuesDATA:Diagnostic tests reviewed for today's visit:No results for input(s): BODSITE, CTYPE, PH, PCO2, PO2, BE, HCO3, CO2CT,O2HB, COHB, MHGB, TEMP, PHTC, PCO2T, PO2T, O2AD in the last 72 hours.Recent Labs 307 CREAT 0.69 0.55* 0.58*BUN 13 12 9NA 138 140 139K 4.1 4.2 4.4CHLOR 108* 108* 108*CO2 25 27 26ANION 9 9 9GLUC 86 82 104*CA 8.2* 8.1* 8.5WBC 6.27 7.80 8.15HB 8.1* 8.2* 9.3*HCT 26.0* 26.2* 29.5*PLT 430* 413* 454*ASSESSMENT AND PLAN:Active Hospital Problems Diagnosis Date Noted- Atrial fibrillation with RVR (HCC) 09/12/2017- Hematemesis 09/12/2017 Overview Note: Added automatically from request for surgery [id number]- Gastric outlet obstruction 09/12/2017 Overview Note: Added automatically from request for surgery [id number]- Severe protein-calorie malnutrition (HCC) 07/03/2017Assessment/Plan72 YOM with gastric/duodenal ulcers, GOO, A-fib/RVR. ?s/p EGD and duodenaldilitation. Hpylori negative.??- A-fib mgnt per medicine, currently on cardizem gtt. OK for PO meds fora-fib from surgery standpoint. Restarted anticoagulation- protonix- [place] soft diet- pt/ot - snf- replace electrolytes prn.- continue to monitor UOP.- possible d/c if placement obtained.SIGNATURE: Jaren Godfrey MD PATIENT NAME: Cristina JeffreyDATE: September 28, 2017 : 11:04 AM PAGER: [phone] Normal [facility] PT EDon 09-28-2017 PT ED HNO ID: [id number] thor: Radha Dobbs (Pharmacist)Service: PharmacyAuthor Type: PharmacistType: Patient EducationFiled: 09/28/2017 11:19 AMNote Text:DISCHARGE MEDICATION REVIEW AND COUNSELING BY PHARMACYPatient Name: Cristina Jeffrey Account #: Data UnavailableMRN: [id number] Admission Date: 09/12/2017Date of Contact: September 28, 2017 Time of Contact: 11:19 AMLEARNERSPersons Present: PatientPrimary Learner: PatientMedication list was reviewed by a Pharmacist for drug interactions or drugrelated problems:YesThe patient was counseled on the medication(s) listed below and was giventhe opportunity to ask questions regarding indication, dosage, sideeffects and drug interactionsREADINESS TO LEARNCOGNITIVE ABILITY:Alert and orientedMOTIVATION TO LEARN:InterestedFAMILY SUPPORT:None - Unavailable/disinterestedINST RUCTION PROVIDED TO:PatientPATIENT LEARNS BEST BY:Multiple MethodsFACTORS AFFECTING LEARNING:NonePHYSICAL LIMITATIONS AFFECTING LEARNING:NoneLEARNING RESPONSEPATIENT / FAMILY RESPONSE:Verbalizes understanding of: Accurate knowledgeof prescribed medication prior to discharge.The correct action to take if medication dose is missed.The side effects associated with the medication that warrant a call to thephysician.RADHA DOBBS PHARMACISTJune 2017 11:19 AMMedication ListSTART taking these medicationsapixaban 5 mg tab(s)Commonly known as: ELIQUISTake 1 tablet by mouth twice daily.CONTINUE taking these medicationsalbuterol 2.5 mg /3 mL (0.083 %) nebulizer solutionCommonly known as: PROVENTILBismuth Subsalicylate 262 mg TabCommonly known as: PEPTO-BISMOLTake 1 tablet by mouth twice daily for 14 days.diltiazem CD 240 mg 24 hr capsuleCommonly known as: CARDIZEM CD, CARTIA XTTake 1 capsule by mouth once daily.LASIX 40 mg tabletGeneric drug: furosemidemetoprolol tartrate (short acting) 50 mg tabletCommonly known as: LOPRESSORpantoprazole DR 40 mg tabletCommonly known as: PROTONIXTake 1 tablet by mouth twice daily.potassium chloride 20 mEq Tberpravastatin 40 mg tabletCommonly known as: PRAVACHOLPRESERVISION AREDS 14,320-226-200 mbge-wn-yrao CapGeneric drug: Vit A,C,R-Naqn-XfkatzRXXVJCCER 160-4.5 mcg/actuation inhalerGeneric drug: budesonide-formoterolVitamin D 50,000 unit capsuleGeneric drug: ergocalciferol (vitamin D2)Where to Get Your MedicationsThese medications were sent to [facility] [address] [place], [place] [id number] [place] [address] [place], [place] [id number] ? apixaban 5 mg tab(s) Normal [facility] Prealbuminon 09-28-2017 Prealbumin 19.7 mg/dL Low 20.0-40.[address] [facility] Comment on above: Performed By: #### P PHRS ####[place] [address] Basic Panelon 09-27-2017 Creatinine 0.55 mg/dL Low 0.67-1.[address] [facility] Comment on above: Performed By: #### P PHRS ####[facility] [place] [address] Anion gap 9 mmol/L Normal 8-[address] [facility] Comment on above: Performed By: #### P PHRS ####[place] [address] CO2 27 mmol/L Normal 21-[address] [facility] Comment on above: Performed By: #### P PHRS ####[place] [address] Glucose mass conc 82 mg/dL Normal 70-[address] [facility] Comment on above: Performed By: #### P PHRS ####[place] [address] Urea nitrogen 12 mg/dL Normal 7-[address] [facility] Comment on above: Performed By: #### P PHRS ####[place] [address] Calcium 8.1 mg/dL Low 8.5-10.[address] [facility] Comment on above: Performed By: #### P PHRS ####[place] [address] Chloride 108 mmol/L High 98-[address] [facility] Comment on above: Performed By: #### P PHRS ####[place] [address] Potassium molar conc 4.2 mmol/L Normal 3.5-5.1 [facility] Comment on above: Performed By: #### P PHRS ####[place] [address] Sodium 140 mmol/L Normal 136-[address] [facility] Comment on above: Performed By: #### P PHRS ####[place] [address] CASE MANAGEMon 09-27-2017 CASE MANAGEM HNO ID: [id number] thor: Lakia (Rn) Mindy, RNService: Care ManagementAuthor Type: Registered NurseType: Care Mgt Progress NoteFiled: 09/27/2017 12:06 PMNote Text:CARE MANAGEMENT PROGRESS NOTESERVICE DATE: 09/27/2017SERVICE TIME: 12:04 PM LOS: 15 daysNeeds Prior to Discharge: Accepting Facility;Discharge TransportationTPN discontinued, per notes it appears pt is ready for DC. I notifiedfacility of this, awaiting acceptance. No precert will be needed onceacceptedSIGNATURE: Lakia Guillen RN PATIENT NAME: Cristina JeffreyDATE: September 27, 2017 : 12:04 PM PAGER/CONTACT #: [phone] Normal [facility] Hemogram/Diffon 09-27-2017 Abs Immature Grans 0.03 thou/cmm Normal 0.00-0.05 [facility] Comment on above: Performed By: #### P PHRS ####[address] [address] Abs. Baso 0.04 thou/cmm Normal 0.01-0.[address] [facility] Comment on above: Performed By: #### P PHRS ####[address] [address] Abs. Sheridan 0.75 thou/cmm Normal 0.30-0.[address] [facility] Comment on above: Performed By: #### P PHRS ####[address] [address] Abs. Neut (ANC) 3.93 thou/cmm Normal 1.78-5.[address] [facility] Comment on above: Performed By: #### P PHRS ####[address] [address] Basophils/100 WBC Auto (Bld) 0.5 % Normal [facility] Comment on above: Performed By: #### P PHRS ####[address] [address] Eosinophils 0.53 thou/cmm Normal 0.04-0.[address] [facility] Comment on above: Performed By: #### P PHRS ####[address] [address] Eosinophils/100 leukocytes 6.8 % Normal [facility] Comment on above: Performed By: #### P PHRS ####[place] [address] Erythrocyte distribution width Auto Ratio (RBC) 16.2 % High 11.6-14.[address] [facility] Comment on above: Performed By: #### P PHRS ####[place] [address] Erythrocytes (RBC) 3.00 mil/cmm Low 4.63-6.08 [facility] Comment on above: Performed By: #### P PHRS ####[place] [address] Hematocrit (HCT) 26.2 % Low 40.1-51.[address] [facility] Comment on above: Performed By: #### P PHRS ####[place] [address] Hemoglobin mass conc (Bld) 8.2 g/dL Low 13.7-17.[address] [facility] Comment on above: Performed By: #### P PHRS ####[place] [address] Immature Grans 0.40 % Normal [facility] Comment on above: Performed By: #### P PHRS ####[place] [address] Lymphocytes 2.52 thou/cmm Normal 0.84-2.[address] [facility] Comment on above: Performed By: #### P PHRS ####[place] [address] Lymphocytes/100 leukocytes 32.3 % Normal [facility] Comment on above: Performed By: #### P PHRS ####[place] [address] MCH 27.3 pg Normal 25.7-32.[address] [facility] Comment on above: Performed By: #### P PHRS ####[place] [address] MCHC mass conc (RBC) 31.3 % Low 32.3-36.5 [facility] Comment on above: Performed By: #### P PHRS ####[address] [address] MCV 87.3 fL Normal 83.2-95.[address] [facility] Comment on above: Performed By: #### P PHRS ####[address] [address] Monocytes/100 leukocytes 9.6 % Normal [facility] Comment on above: Performed By: #### P PHRS ####[address] [address] Platelet mean volume (PMV) 9.2 fL Normal 8.7-12.[address] [facility] Comment on above: Performed By: #### P PHRS ####[place] [address] Platelets 413 thou/cmm High 141-[address] [facility] Comment on above: Performed By: #### P PHRS ####[place] [address] RDW SD 51.7 fl High 36.1-45.[address] [facility] Comment on above: Performed By: #### P PHRS ####[place] [address] Seg Neutrophil 50.4 % Normal [facility] Comment on above: Performed By: #### P PHRS ####[place] [address] WBC (Leukocytes) 7.80 thou/cmm Normal 4.23-9.[address] [facility] Comment on above: Performed By: #### P PHRS ####[place] [address] MDRD GFRon 09-27-2017 eGFR (non-black) mL/min/{1.73_m2} Normal >60mL/m in/ 1.73m2 [facility] Comment on above: Result Comment: If t he patient is , multiply the result by 1.210. Performed By: #### P PHRS ####[place] [address] NURSING PROGon 09-27-2017 Protein mass conc HNO ID: [id number] thor: Chula (Rn) Sina, RNService: NursingAuthor Type: Registered NurseType: Nursing Progress NoteFiled: 09/27/2017 2:31 PMNote Text: Nursing Progress NotePatient Name: Cristina JeffreyMRN: [id number] Location: [place] [address] [address]*____ Daily Note:RT paged again for resp txThis note was completed by: Chula Andino RN [facility] PROGRESSon 09-27-2017 Protein mass conc HNO ID: [id number] thor: Giselle (Business Performance Analyst) CroomService: ElectrophysiologyAuthor Type: Nurse PractitionerType: Progress NotesFiled: 09/27/2017 11:58 AMNote Text:HRA PROGRESS NOTE: EP CARDIOLOGY SERVICESERVICE DATE: 09/27/2017SERVICE TIME: 11:48 AMSubjectiveINTERIM HISTORY: Cristina Jeffrey is sitting in the chair, he looks well.The oxygen and TPN have been discontinued. He denies CP, SOB, dizziness,palpitations.Object ivePHYSICAL EXAM:Body mass index is 25.41 kg/m?.O2 Therapy: Nasal CannulaNo Data RecordedPatient Vitals for the past 24 hrs: BP Temp Temp src Pulse Resp SpO2 Yrupxj60/06/18 0753 - - - - - - 78.1 kg (172 lb 2.9 oz)09/27/17 0722 - - - 114 26 - -09/27/17 0713 - - - 111 28 98 % -09/27/17 0645 120/73 - - (!) 123 - - -09/27/17 0301 111/66 36.7 ?C (98.1 ?F) Oral 103 22 97 % -09/27/17 0209 - - - 98 22 98 % -09/27/17 0202 - - - 101 22 97 % -09/26/172257 115/66 36.7 ?C (98.1 ?F) Oral 103 22 98 % -09/26/172054 - - - 83 22 - -09/26/172044 - - - 81 22 95 % -09/26/171938 108/60 36.5 ?C (97.7 ?F) Oral 85 24 100 % -09/26/17 1532 - - - 91 28 - -09/26/17 1522 - - - 93 28 99 % -09/26/17 1509 116/68 36.4 ?C (97.5 ?F) Oral 93 24 100 % -Pleasant, comfortable, not in acute distress.Awake, alert, oriented times 3.Moves all extremities.SKIN: No rash or lumps.HEENT: Normocephalic, face symmetrical.NECK: Supple, no JVD, no carotid bruit, no thyromegaly.LUNGS: Clear to auscultation bilaterally.CARDIAC: Rhythm: irregularly irregular, Rate: normal, S1: normalintensity, S2: normal intensity, No murmurABDOMEN: Soft, nontender, bowel sounds present.EXTREMITIES: No edema.PULSES: Peripheral pulses present.MEDICATIONS:Current hospital medications:oxyCODONE IR 5 mg tab(s) (ROXICODONE) 5 mg ORAL q 4 H PRNapixaban 5 mg tab(s) (ELIQUIS) 5 mg ORAL BIDtamsulosin ER 0.4 mg cap(s) (FLOMAX) 0.4 mg ORAL DAILYsenna-docusate 8.6-50 mg 1 tablet (SENNA-S) 1 tablet ORAL BIDpill manager critical care unit (patient-specific) 1 Each Miscell. (Med.Supl.;Non-Drugs) PRNdiltiazem 30 mg tab(s) (CARDIZEM) 30 mg NASOGASTRIC q 6 Hdigoxin 0.25 mg tab(s) (LANOXIN) 0.25 mg NASOGASTRIC DAILYmetoprolol tartrate (short acting) 25 mg tab(s) (LOPRESSOR) 25 mgNASOGASTRIC q 8 Hacetaminophen 650 mg tab(s) (TYLENOL) 650 mg ORAL q 6 Hondansetron 4 mg tab(s) (ZOFRAN) 4 mg ORAL q 6 H PRNondansetron (PF) 4 mg injection (ZOFRAN) 4 mg INTRAVENOUS q 6 H PRNlidocaine 10 mg/mL (1 %) 1-2 mg injection (XYLOCAINE) 0.1-0.2 mLINTRADERMAL PRNpantoprazole 40 mg injection (PROTONIX) 40 mg INTRAVENOUS BID AC(0600/1600)albuterol 2.5 mg /3 mL (0.083 %) 2.5 mg (PROVENTIL) 2.5 mg INHALATION q 4H PRNdextran 70-hypromellose 0.1-0.3 % 1 Drop ophthalmic drops (NATURAL BALANCETEARS) 1 Drop BOTH EYES PRNphenol 1 Nineveh (CHLORASEPTIC) 1 Nineveh MUCOUS MEMBRANE (TOPICAL MOUTH ANDTHROAT) q 2 H PRNbenzocaine-menthol 1 Lozenge (CEPACOL) 1 Lozenge MUCOUS MEMBRANE (TOPICALMOUTH AND THROAT) q 2 H PRN0.9% NaCl 10 mL 10 mL INTRAVENOUS q 12 H0.9% NaCl 20 mL 20 mL INTRAVENOUS PRNiv contrast (radiology procedure) INTRAVENOUS DIRECTED PRNDATA:Diagnostic tests reviewed for today's visit:Most recent labsMost recent telemetryPast 72 Hour Labs:Recent Labs 307WBC 7.80RBC 3.00*HB 8.2*HCT 26.2*MCV 87.3MCH 27.3MCHC 31.3*PLT 413*MPV 9.2GLUC 82BUN 12CREAT 0.55*NA 140K 4.2CHLOR 108*CO2 27CA 8.1*Last Lab Drawn:LDL Chol, [place] 110 02/23/2010ssessment/PlanActiv e Problems: Atrial fibrillation with RVR (HCC) POA: Yes Assessment AND Plan: Cristina Jeffrey has persistent atrialfibrillation, he is on rate controlling medications. Telemetry shows afibHR 88-103 bpm, Eliquis was started for chadsvasc of 2. He will have afollow up in Dr. Maher's office in one month to discuss statingAmiodarone, he will take 400mg BID x 2 weeks then 200mg QD, he will thenbe scheduled to undergo a cardioversion a month after starting theAmiodarone. Dr. Maher's office will call to schedule the appointment.EP cardiology is signing off. Gastric outlet obstruction POA: Unknown Assessment AND Plan: secondary to peptic ulcer disease s/pgastrojejunostomy with truncal vagotomy. General surgery is following.?Medication and Non-Pharmacologic VTE Prophylaxis/AnticoagulantsAnt icoagulant AND Antiplatelet Medications Start Dose Route Frequency Ordered Stop 09/26/17 1330 apixaban 5 mg tab(s) (ELIQUIS) 5 mg ORAL 2 TIMES DAILY 09/26/17 1324 --SIGNATURE: Michelle Weeks, MSN, DICE MAKER.OPTOMETRIC ASSISTANT PATIENT NAME: Cristina JeffreyDATE: September 27, 2017 : 11:48 AM PAGER/CONTACT #: [phone] [facility] Protein mass conc HNO ID: [id number] thor: Jaren (Adelina) Liange: General SurgeryAuthor Type: ResidentType: Progress NotesFiled: 09/27/2017 11:06 AMNote Text: At testation signed by Venus Foster at 09/27/2017 2:22 PMAttending NoteI personally saw and examined the patient. I reviewed the resident's note. Ana Mariaee with the resident's assessment and plan with the following revisionsand/or additions: await placement recs. Cont dietSignature: Venus Foster, MDDate: 09/27/2017Time: 2:22 PM PROGR ESS NOTEElective Surgery Progress NoteSERVICE DATE: 09/27/2017SERVICE TIME: 11:04 AMSUBJECTIVE:SubjectiveSubjec tive: This is a 72 year old male s/p truncal vagotomy andgastrojejunostomyPt feels well. +amb, pain controled.Bowel movement YesFlatus YesDiet DIET GASTRO INTESTINALAmbulating YesNausea NoEmesis NoCurrent Facility-Administered Medications:oxyCODONE IR 5 mg tab(s) (ROXICODONE) 5 mg ORAL q 4 H PRNapixaban 5 mg tab(s) (ELIQUIS) 5 mg ORAL BIDtamsulosin ER 0.4 mg cap(s) (FLOMAX) 0.4 mg ORAL DAILYsenna-docusate 8.6-50 mg 1 tablet (SENNA-S) 1 tablet ORAL BIDpill manager critical care unit (patient-specific) 1 Each Miscell. (Med.Supl.;Non-Drugs) PRNdiltiazem 30 mg tab(s) (CARDIZEM) 30 mg NASOGASTRIC q 6 Hdigoxin 0.25 mg tab(s) (LANOXIN) 0.25 mg NASOGASTRIC DAILYmetoprolol tartrate (short acting) 25 mg tab(s) (LOPRESSOR) 25 mgNASOGASTRIC q 8 Hacetaminophen 650 mg tab(s) (TYLENOL) 650 mg ORAL q 6 Hondansetron 4 mg tab(s) (ZOFRAN) 4 mg ORAL q 6 H PRNOrondansetron (PF) 4 mg injection (ZOFRAN) 4 mg INTRAVENOUS q 6 H PRNlidocaine 10 mg/mL (1 %) 1-2 mg injection (XYLOCAINE) 0.1-0.2 mLINTRADERMAL PRNpantoprazole 40 mg injection (PROTONIX) 40 mg INTRAVENOUS BID AC(0600/1600)albuterol 2.5 mg /3 mL (0.083 %) 2.5 mg (PROVENTIL) 2.5 mg INHALATION q 4H PRNdextran 70-hypromellose 0.1-0.3 % 1 Drop ophthalmic drops (NATURAL BALANCETEARS) 1 Drop BOTH EYES PRNphenol 1 Nineveh (CHLORASEPTIC) 1 Nineveh MUCOUS MEMBRANE (TOPICAL MOUTH ANDTHROAT) q 2 H PRNbenzocaine-menthol 1 Lozenge (CEPACOL) 1 Lozenge MUCOUS MEMBRANE (TOPICALMOUTH AND THROAT) q 2 H PRN0.9% NaCl 10 mL 10 mL INTRAVENOUS q 12 H0.9% NaCl 20 mL 20 mL INTRAVENOUS PRNiv contrast (radiology procedure) INTRAVENOUS DIRECTED PRNOBJECTIVE:ObjectivePHYSICA L EXAM:VITAL SIGNSBP 120/73 Pulse 114 Temp (Src) 98.1 (Oral) Resp 26 Ht 5' 9.016"(1.75m) Wt 172 lb 2.9 oz (78.1kg) SpO2 98% BMI 25.41 kg/(m2).Temp (24hrs), Av.6 ?C (97.9 ?F), Min:36.4 ?C (97.5 ?F), Max:36.7 ?C(98.1 ?F)Date 09/26/17699 - 09/27/17 0659 09/27/17 07 - 09/28/17 0659Shift 8911-0389 3770-3369 4284-0941 24 Hour Total 1870-2041 [id number] 24 Hour TotalINTAKE PO 460 460 PO 460 460 IV 225 225 LR 225 225 Shift Total 685 685OUTPUT Urine 300 201 501 201 201 Void (ml) 300 200 500 200 200 Urine Not Saved 1 1 1 1 # of BMs Number of BMs 1 x 1 x 2 x 1 x 1 x Shift Total 300 201 501 201 201Weight (kg) 78.9 78.9 78.9 78.9 78.1 78.1 78.1 78.1GENERAL: Alert, no distress, cooperativeSKIN: Skin color, texture, turgor normal. No rashes or lesions.LUNGS: Unlabored breathing on O2 Therapy: Nasal Cannula on Liters: 2sating at SpO2: 98 %CARDIAC: rate and rhythm as above,ABDOMEN: Benign, Soft, No masses, hepatosplenomegaly, No lymphadenopathyand Mild tenderness in GeneralizedEXTREMITIES: ROM of all joint grossly normal: strength grossly normalbilaterally. No deformities noted.WOUND: No issuesDATA:Diagnostic tests reviewed for today's visit:No results for input(s): BODSITE, CTYPE, PH, PCO2, PO2, BE, HCO3, CO2CT,O2HB, COHB, MHGB, TEMP, PHTC, PCO2T, PO2T, O2AD in the last 72 hours.Recent Labs 09/26/1804CREAT 0.55* 0.58* 0.51*BUN 12 9 9NA 140 139 141K 4.2 4.4 4.1CHLOR 108* 108* 111*CO2 27 26 26ANION 9 9 8GLUC 82 104* 73CA 8.1* 8.5 8.2*WBC 7.80 8.15 8.27HB 8.2* 9.3* 8.3*HCT 26.2* 29.5* 26.9*PLT 413* 454* 411*ASSESSMENT AND PLAN:Active Hospital Problems Diagnosis Date Noted- Atrial fibrillation with RVR (HCC) 09/12/2017- Hematemesis 09/12/2017 Overview Note: Added automatically from request for surgery [id number]- Gastric outlet obstruction 09/12/2017 Overview Note: Added automatically from request for surgery [id number]- Severe protein-calorie malnutrition (HCC) 07/03/2017Assessment/Plan72 YOM with gastric/duodenal ulcers, GOO, A-fib/RVR. ?s/p EGD and duodenaldilitation. Hpylori negative.??- A-fib mgnt per medicine, currently on cardizem gtt. OK for PO meds fora-fib from surgery standpoint. Restarted anticoagulation- protonix- [place] soft diet- pt/ot - snf- replace electrolytes prn.- continue to monitor UOP.- possible d/c if placement obtained.SIGNATURE: Jaren Godfrey MD PATIENT NAME: Cristina JeffreyDATE: September 27, 2017 : 11:04 AM PAGER: [phone] [facility] THERAPY NTon 09-27-2017 THERAPY NT HNO ID: [id number] thor: Hailey (Otr/L) TharpeService: Occupational TherapyAuthor Type: Occupational TherapistType: Therapy (PT/OT/Speech/Resp)Filed: 09/27/2017 9:11 AMNote Text:Occupational Therapy EvaluationSERVICE DATE: 09/27/2017SERVICE TIME: 814 to 829ROOM: [id number] Discharge Disposition: Subacute/SNFJustification For Post Acute Needs: Anticipate that patient will requiredaily (5x/wk) skilled therapy in a post-acute facility setting at the timeof acute hospital discharge;Willing to participate;Functional statusimprovement unknownOT Recommendations to Nursing: To Bathroom for ADL?s /and or Toileting;OOBfor meals;With assist of 1 personOT 6 Clicks Score: 19Precautions/Activity Restrictions: Fall RiskIsolation Type: NoneASSESSMENT:OT Evaluation Low Complexity:Occupational Profile - Brief review of patient's medical record completed(please see current hospital course of evaluation).Occupational Performance - Pt presents with deficits in feeding, grooming,UE bathing/dressing, LE bathing/dressing, functional transfers, functionalmobility, decreased safety awareness, decreased insight into deficitsComplexity in Clinical Decision Making - The extent of clinical reasoningwas low, number of treatment options limited, no need for modificationsduring the evaluation process, no comorbidities present to affectpatient's occupational performance.Patient Disposition at Start of Session: Supine in BedPatient Disposition at End of Session: OOB in Chair;Call Oliva in ReachTolerance Limited By CooperationOccupational Therapy Problem List: Safety Deficits;Impaired SelfCare;Decreased Activity Tolerance;Functional Mobility ImpairmentPatient /Caregiver Goals: Go To RehabGoals for Plan of Care:Grooming with: Supervision (at sinkside)Upper Body Dressing with: Contact Guard AssistanceLower Body Dressing with: Contact Guard AssistanceToilet Hygiene with: Contact Guard AssistanceToilet Transfer with: Contact Guard AssistanceTolerate (minutes of functional activity): 25Functional Activity with: Stand By AssistanceRehab Potential: GoodPLAN:Treatment Frequency (times per week): 3 (1-3x/week)Reasons Therapy Services Discontinued: Declines care Current admissionTreatment Interventions: Education;Self Care / Home Management;FunctionalMobility TrainingPlan of Care developed with: PatientTREATMENT INTERVENTIONS:Therapy Diagnosis: Reduced mobility-other;Decreased activities of dailyliving (ADL)Interventions Provided: Evaluation$ Evaluation-Low (33658) Billed Units: 1 unitTotal Treatment Time (minutes): 15FUNCTIONAL G CODE:OT 6 Clicks Score: 19 (09/27/17814)Self Care Current Status (G8987): CJ (09/27/17814)Self Care Goal Status (G8988): CI (09/27/17814)Based on clinical assessment and the score on the 6 Clicks FunctionalAssessment Tool, the G code and corresponding severity modifiers aredocumented above.SUBJECTIVE:Current Hospital Course: Chart reviewed; Patient presented with Afib RVRand abdominal pain. Per CT: gastric outlet obstruction, pancreatic mass.PAST MEDICAL HISTORYDiagnosis Date- Afib (HCC)- CHF (congestive heart failure) (HCC)- COPD (chronic obstructive pulmonary disease) (HCC)- HypertensionPAST SURGICAL HISTORYProcedure Laterality Date- EGD 06/21/2017 Multiple antral ulcers with 1 large ulcer with a visible vessel at itsbase as the source of bleeding. A large ulcer at the pre-pyloric region- EGD 06/23/2017 NG tube induced mucosal tear at GE junction, without bleeding. Multipleulcers at distal antrum and pyloric channel with significant deformity.Previously Endoclipped and epinephrine injected ulcer is not bleeding andvisible vessel has resolved. Large pyloric channel ulcer with deformityand stenosis with intermittent oozing of blood diffusely without anyvisible vessel. Normal duodenum- TUMOR REMOVAL (SPECIFY LOCATION) HX breast, childhoodReason for Occupational Therapy Consult: Afib, hematemesisRelevant Past Medical History: malnutrition, COPD, HTN, HLDPatient Report: Patient up in bed, agreeable to out of bed for breakfast.Reports he just had a breathing treatment, so he feels better now.Home EnvironmentPatient Lives With: Self/AloneAssistance Available: PRNPrior Functional Level: Within Functional Limits (limited informant)OBJECTIVE:Responsiv eness: AlertFollows Commands: 3-step Commands Executive Function Deficits: Judgement;Insight to Deficits;SafetyAwarenessSafet y Awareness Deficit: Minimal impairmentJudgement Deficit: Minimal impairmentInsight to Deficits: Minimal impairmentCURRENT FUNCTIONAL STATUS:Current Activities of Daily Living Assist LevelFeeding Set UpGrooming Set UpBathing Upper Body Minimal AssistanceBathing Lower Body Minimal AssistanceDressing Upper Body Minimal AssistanceDressing Lower Body Minimal AssistanceToileting Minimal AssistanceFunctional Mobility Assist LevelRolling Contact Guard AssistanceSupine to Sit Contact Guard AssistanceSit to Supine Contact Guard AssistanceScootingSit to Stand Contact Guard AssistanceStand to SitBed to Chair Contact Guard Assistance Stand PivotToilet/Commode Contact Guard AssistanceFunctional Mobility Patient set up in chair with call light and phone in reach on bedsidetable. Advised to use call light and wait for assist to get back to bed.Please see discipline specific clinical documentation flowsheet forcomplete details for this therapy evaluation/treatment.SIGNATAHMET E: Hailey Ferrera OTR/L PATIENT NAME: Cristina JeffreyDATE: September 27, 2017 : 9:08 AM PAGER: [phone] [facility] THERAPY NT HNO ID: [id number] thor: Ana Cristina (Pt) SturmService: Physical TherapyAuthor Type: Physical TherapistType: Therapy (PT/OT/Speech/Resp)Filed: 09/27/2017 8:55 AMNote Text:Physical Therapy Re-evaluationSERVICE DATE: 09/27/2017SERVICE TIME: 809 to 820ROOM: [id number] Discharge Disposition: Subacute/SNFJustification For Post Acute Needs: Anticipate that patient will requiredaily (5x/wk) skilled therapy in a post-acute facility setting at the timeof acute hospital dischargePT Recommendations to Nursing: Transfer to/from chair;OOB for Meals;Withassist of 1 personDevice: Wheeled Walker;Hand Held AssistPT 6 Clicks Score: 17Precautions/Activity Restrictions: Fall RiskIsolation Type: NoneASSESSMENT :Patient now status post Laparoscopic gastrojejunostomy with truncalvagotomy on 09/21/17. Patient now agreeable to PT. Patient demo deficitsin strength, endurance, balance, safety awareness. Patient lives alone.Patient would benefit from continued therapy at a SNF to maximizeindependence and safety prior to return home.Patient Disposition at Start of Session: Supine in BedPatient Disposition at End of Session: OOB in Chair;Call Oliva in ReachTolerance Limited By FatiguePhysical Therapy Problem List: Decreased Activity Tolerance;FunctionalMobility Impairment;Balance ImpairedPatient /Caregiver Goals: Go To RehabGoals for Plan of Care:Transfer supine to/from sit with: SupervisionTransfer sit to/from stand with: SupervisionAmbulate with: SupervisionDistance: 55d9Kqopva: Wheeled WalkerGoal: sit to/from stand x 10 reps with SBAProgress Toward Goals: Progressing as expectedRehab Potential: GoodPLAN:Treatment Frequency (times per week): 3 (1-3) Current admissionTreatment Interventions: Functional Mobility Training;BalanceTraining;Educ ation;StrengtheningPlan of Care developed with: PatientTREATMENT INTERVENTIONS:Therapy Diagnosis: Reduced mobility-other;Unsteadiness onfeet;Abnormalities of gait and mobility-otherInterventions Provided: Re-evaluation$ Reevaluation (08133) Billed Units: 1 unitEducation on role of physical therapy in acute care and dischargeplanning. Patient now agreeable to PT in the acute care hospital and isagreeable to SNF at discharge.Education on fall prevention. Up with assist only. Oriented to call lightTotal Timed Code Treatment Minutes: 10Total Treatment Time (minutes): 10FUNCTIONAL G CODE:PT 6 Clicks Score: 17 (09/27/17 0810)Mobility: Walking and Moving Around Current Status (G8978): CK ()Mobility: Walking and Moving Around Goal Status (G8979): CJ ()Based on clinical assessment and the score on the 6 Clicks FunctionalAssessment Tool, the G code and corresponding severity modifiers aredocumented above.SUBJECTIVE:Current Hospital Course: Chart reviewed;Patient is a 72 year old male status post SURGERY/PROCEDURE DATE: 09/21/2017SURGERY/PROCEDURE(S) : 1. Laparoscopic gastrojejunostomy with truncalvagotomyReason for Physical Therapy Consult : pmpRelevant Past Medical History: gastric blockage; ulcers; previous rehabstayPatient Report: No complaints of pain. Agreeable to PT with encouragement.Home EnvironmentPatient Lives With: Self/AloneAssistance Available: PRNPrior Functional Level: Within Functional LimitsOBJECTIVE:CURRENT FUNCTIONAL STATUS:Current Functional Mobility Assist Level Additional InformationRollingSupine to Sit Contact Guard AssistanceSit to SupineScootingSit to Stand Contact Guard AssistanceStand to Sit Contact Guard AssistanceBed to ChairToilet/CommodeGait Contact Guard Assistance Gait Device: Hand Held Assist Gait Distance (feet): 5ft x 2StairsCurb StepCar TransferGeneral Gait Deviations: Fabiola decreased;Narrow Base ofSupport;Non-functional gait speedRange Of Motion: Within Functional LimitsStrength: Within Functional Limits ExceptLocation Strength Not WFL: Lower ExtremityLeft Lower Extremity Strength: 4-Right Lower Extremity Strength: 4-Please see discipline specific clinical documentation flowsheet forcomplete details for this therapy evaluation/treatment.JOLEEN E: Ana Cristina Walker, PT PATIENT NAME: Cristina JeffreyDATE: September 27, 2017 : 8:47 AM PAGER/CONTACT #: [phone] [facility] Basic Panelon 09-26-2017 Creatinine 0.58 mg/dL Low 0.67-1.[address] [facility] Comment on above: Performed By: #### P PHRS ####[facility] [place], [place] [address] Glucose mass conc 104 mg/dL High 70-[address] [facility] Comment on above: Performed By: #### P PHRS ####[address] [address] Urea nitrogen 9 mg/dL Normal 7-[address] [facility] Comment on above: Performed By: #### P PHRS ####[address] [address] Anion gap 9 mmol/L Normal 8-[address] [facility] Comment on above: Performed By: #### P PHRS ####[address] [address] Calcium 8.5 mg/dL Normal 8.5-10.[address] [facility] Comment on above: Performed By: #### P PHRS ####[address] [address] CO2 26 mmol/L Normal 21-[address] [facility] Comment on above: Performed By: #### P PHRS ####[address] [address] Chloride 108 mmol/L High 98-[address] [facility] Comment on above: Performed By: #### P PHRS ####[address] [address] Potassium molar conc 4.4 mmol/L Normal 3.5-5.1 [facility] Comment on above: Performed By: #### P PHRS ####[address] [address] Sodium 139 mmol/L Normal 136-[address] [facility] Comment on above: Performed By: #### P PHRS ####[address] [address] CASE MANAGEMon 09-26-2017 CASE MANAGEM HNO ID: [id number] thor: Lakia (Rn) Mindy, KELLYervice: Care ManagementAuthor Type: Registered NurseType: Care Mgt Progress NoteFiled: 09/26/2017 12:03 PMNote Text:CARE MANAGEMENT PROGRESS NOTESERVICE DATE: 09/26/2017SERVICE TIME: 12:00 PM LOS: 14 daysNeeds Prior to Discharge: Accepting Facility;[facility] ready [facility]. Pt istolerating soft diet, per notes weaning TPN. Facility has inquired aboutPT/OT updates, and pt refusing therapies. I spoke with pt about this, heis now agreeable to evals. PT/OT notified and will see pt this afternoon.Facility updatedSIGNATURE: Lakia Guillen, RN PATIENT NAME: Cristina JeffreyDATE: September 26, 2017 : 12:00 PM PAGER/CONTACT #: [phone] [facility] Hemogram/Diffon 09-26-2017 Abs Immature Grans 0.04 thou/cmm Normal 0.00-0.05 [facility] Comment on above: Performed By: #### P PHRS ####[place] [address] Abs. Baso 0.05 thou/cmm Normal 0.01-0.[address] [facility] Comment on above: Performed By: #### P PHRS ####[place] [address] Abs. [place] 0.66 thou/cmm Normal 0.30-0.[address] [facility] Comment on above: Performed By: #### P PHRS ####[place] [address] Abs. Neut (ANC) 4.62 thou/cmm Normal 1.78-5.[address] [facility] Comment on above: Performed By: #### P PHRS ####[place] [address] Basophils/100 WBC Auto (Bld) 0.6 % Normal [facility] Comment on above: Performed By: #### P PHRS ####[address] [address] Eosinophils 0.62 thou/cmm High 0.04-0.[address] [facility] Comment on above: Performed By: #### P PHRS ####[address] [address] Eosinophils/100 leukocytes 7.6 % Normal [facility] Comment on above: Performed By: #### P PHRS ####[place] [address] Erythrocyte distribution width Auto Ratio (RBC) 16.1 % High 11.6-14.[address] [facility] Comment on above: Performed By: #### P PHRS ####[place] [address] Erythrocytes (RBC) 3.41 mil/cmm Low 4.63-6.08 [facility] Comment on above: Performed By: #### P PHRS ####[place] [address] Hematocrit (HCT) 29.5 % Low 40.1-51.[address] [facility] Comment on above: Performed By: #### P PHRS ####[place] [address] Hemoglobin mass conc (Bld) 9.3 g/dL Low 13.7-17.[address] [facility] Comment on above: Performed By: #### P PHRS ####[address] [address] Immature Grans 0.50 % Normal [facility] Comment on above: Performed By: #### P PHRS ####[address] [address] Lymphocytes 2.16 thou/cmm Normal 0.84-2.[address] [facility] Comment on above: Performed By: #### P PHRS ####[place] [address] Lymphocytes/100 leukocytes 26.5 % Normal [facility] Comment on above: Performed By: #### P PHRS ####[address] [address] MCH 27.3 pg Normal 25.7-32.[address] [facility] Comment on above: Performed By: #### P PHRS ####[address] [address] MCHC mass conc (RBC) 31.5 % Low 32.3-36.5 [facility] Comment on above: Performed By: #### P PHRS ####[address] [address] MCV 86.5 fL Normal 83.2-95.[address] [facility] Comment on above: Performed By: #### P PHRS ####[place] [address] Monocytes/100 leukocytes 8.1 % Normal [facility] Comment on above: Performed By: #### P PHRS ####[place] [address] Platelet mean volume (PMV) 9.3 fL Normal 8.7-12.[address] [facility] Comment on above: Performed By: #### P PHRS ####[place] [address] Platelets 454 thou/cmm High 141-[address] [facility] Comment on above: Performed By: #### P PHRS ####[place] [address] RDW SD 50.8 fl High 36.1-45.[address] [facility] Comment on above: Performed By: #### P PHRS ####[address] [address] Seg Neutrophil 56.7 % Normal [facility] Comment on above: Performed By: #### P PHRS ####[place] [address] WBC (Leukocytes) 8.15 thou/cmm Normal 4.23-9.[address] [facility] Comment on above: Performed By: #### P PHRS ####[place] [address] MDRD GFRon 09-26-2017 eGFR (non-black) mL/min/{1.73_m2} Normal >60mL/m in/ 1.73m2 [facility] Comment on above: Result Comment: If t he patient is , multiply the result by 1.210. Performed By: #### P PHRS ####[facility] [place], [place] [address] PROGRESSon 09-26-2017 Protein mass conc HNO ID: [id number] thor: Giselle (Business Performance Analyst) CroomService: ElectrophysiologyAuthor Type: Nurse PractitionerType: Progress NotesFiled: 09/26/2017 1:53 PMNote Text:HRA PROGRESS NOTE: EP CARDIOLOGY SERVICESERVICE DATE: 09/26/2017SERVICE TIME: 1:25 PMSubjectiveINTERIM HISTORY: Cristina Raman Jeffrey is laying in bed, NAD. He denies CP ,SOB, dizziness, syncope, palpitations. He denies abdominal pain.ObjectivePHYSICAL EXAM:Body mass index is 25.68 kg/m?.O2 Therapy: Nasal CannulaNo Data RecordedPatient Vitals for the past 24 hrs: BP Temp Temp src Pulse Resp SpO2 Dabxfy01/05/18 1100 100/58 36.6 ?C (97.9 ?F) Oral 81 28 100 % -09/26/17 1052 - - - 82 23 - -09/26/17 1044 - - - 86 24 98 % -09/26/17 0908 - - - - - - 78.9 kg (174 lb)09/26/17 0835 114/66 36.4 ?C (97.5 ?F) Oral 99 28 97 % -09/26/17 0647 - - - 78 22 98 % -09/26/17 0515 140/82 36.5 ?C (97.7 ?F) Oral 94 20 99 % -09/26/17 0015 127/62 36.5 ?C (97.7 ?F) Oral 96 18 100 % -09/25/17 2105 112/64 36.6 ?C (97.9 ?F) Oral 85 18 100 % -09/25/17 2057 104/63 36.4 ?C (97.5 ?F) Oral 91 18 99 % -09/25/172052 104/63 36.4 ?C (97.5 ?F) Oral 92 18 99 % -09/25/172046 - - - 95 18 - -09/25/172037 - - - 93 16 97 % -09/25/17 1750 125/74 - - 91 - - -09/25/17 1515 115/70 36.5 ?C (97.7 ?F) Oral 90 19 100 % -Pleasant, comfortable, not in acute distress.Awake, alert, oriented times 3.Moves all extremities.SKIN: No rash or lumps.HEENT: Normocephalic, face symmetrical.NECK: Supple, no JVD, no carotid bruit, no thyromegaly.LUNGS: Clear to auscultation bilaterally.CARDIAC: Rhythm: irregularly irregular, Rate: normal, S1: normalintensity, S2: normal intensity, No murmurABDOMEN: Abdomen soft, non-tender, BS normal, No masses or organomegalyEXTREMITIES: No edema.PULSES: Peripheral pulses present.MEDICATIONS:Current hospital medications:apixaban 5 mg tab(s) (ELIQUIS) 5 mg ORAL BIDtamsulosin ER 0.4 mg cap(s) (FLOMAX) 0.4 mg ORAL DAILYParenteral Nutrition - Adult INTRAVENOUS ONCE TPN (1800 START)senna-docusate 8.6-50 mg 1 tablet (SENNA-S) 1 tablet ORAL BIDpolyethylene glycol 3350 17 g packet (MIRALAX, GLYCOLAX) 17 g ORAL DAILYpill manager critical care unit (patient-specific) 1 Each Miscell. (Med.Supl.;Non-Drugs) PRNdiltiazem 30 mg tab(s) (CARDIZEM) 30 mg NASOGASTRIC q 6 Hdigoxin 0.25 mg tab(s) (LANOXIN) 0.25 mg NASOGASTRIC DAILYmetoprolol tartrate (short acting) 25 mg tab(s) (LOPRESSOR) 25 mgNASOGASTRIC q 8 Hacetaminophen 650 mg tab(s) (TYLENOL) 650 mg ORAL q 6 Hmorphine 4 mg injection 4 mg IV/IM q 4 H PRNketorolac 15 mg injection (TORADOL) 15 mg INTRAVENOUS q 6 Hondansetron 4 mg tab(s) (ZOFRAN) 4 mg ORAL q 6 H PRNondansetron (PF) 4 mg injection (ZOFRAN) 4 mg INTRAVENOUS q 6 H PRNlidocaine 10 mg/mL (1 %) 1-2 mg injection (XYLOCAINE) 0.1-0.2 mLINTRADERMAL PRNlactated ringers infusion 5-30 mL/hr INTRAVENOUS CONTINUOUSpantoprazole 40 mg injection (PROTONIX) 40 mg INTRAVENOUS BID AC(0600/1600)albuterol 2.5 mg /3 mL (0.083 %) 2.5 mg (PROVENTIL) 2.5 mg INHALATION q 4H PRNdextran 70-hypromellose 0.1-0.3 % 1 Drop ophthalmic drops (NATURAL BALANCETEARS) 1 Drop BOTH EYES PRNphenol 1 Nineveh (CHLORASEPTIC) 1 Nineveh MUCOUS MEMBRANE (TOPICAL MOUTH ANDTHROAT) q 2 H PRNbenzocaine-menthol 1 Lozenge (CEPACOL) 1 Lozenge MUCOUS MEMBRANE (TOPICALMOUTH AND THROAT) q 2 H PRNondansetron (PF) 4 mg injection (ZOFRAN) 4 mg INTRAVENOUS q 6 H PRN0.9% NaCl 10 mL 10 mL INTRAVENOUS q 12 H0.9% NaCl 20 mL 20 mL INTRAVENOUS PRNiv contrast (radiology procedure) INTRAVENOUS DIRECTED PRNDATA:Diagnostic tests reviewed for today's visit:Most recent labsMost recent telemetryPast 72 Hour Labs:Recent Labs 536WBC 8.15RBC 3.41*HB 9.3*HCT 29.5*MCV 86.5MCH 27.3MCHC 31.5*PLT 454*MPV 9.3GLUC 104*BUN 9CREAT 0.58*NA 139K 4.4CHLOR 108*CO2 26CA 8.5Last Lab Drawn:LDL Chol, [place] 110 02/23/2010ssessment/PlanActiv e Problems: Severe protein-calorie malnutrition (HCC) POA: Yes Assessment AND Plan: he is receiving TPN? Atrial fibrillation with RVR (HCC) POA: Yes Assessment AND Plan: the atrial fibrillation is persistent. Heart ratesare currently controlled on PO Diltiazem, Digoxin and Metoprolol.He ischadsvasc of 2 and surgery reports that it is ok to resume oral ATC. Itwill need to ne monitored closely. I've started Eliquis 5mg BID.? Gastric outlet obstruction POA: Unknown Assessment AND Plan: secondary to peptic ulcer disease s/pgastrojejunostomy with truncal vagotomy. General surgery is following.?Medication and Non-Pharmacologic VTE Prophylaxis/AnticoagulantsAnt icoagulant AND Antiplatelet Medications Start Dose Route Frequency Ordered Stop 09/26/17 1330 apixaban 5 mg tab(s) (ELIQUIS) 5 mg ORAL 2 TIMES DAILY 09/26/17 1324 --SIGNATURE: Michelle Weeks, MSN, DICE MAKER.OPTOMETRIC ASSISTANT PATIENT NAME: Cristina JeffreyDATE: September 26, 2017 : 1:25 PM PAGER/CONTACT #: [phone] [facility] Protein mass conc HNO ID: [id number] thor: Pierce (Adelina) Landonervice: General SurgeryAuthor Type: ResidentType: Progress NotesFiled: 09/26/2017 6:39 AMNote Text: At testation signed by Venus Foster at 09/26/2017 3:52 PMAttending NoteI personally saw and examined the patient. I reviewed the resident's note. Ana Mariaee with the resident's assessment and plan with the following revisionsand/or additions: will dw cards regarding anticoagulation. 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 Basedoff residual from earlier in the am, residual should be ~300cc. ToleratingPO. +F/+BM. Denies n/v/f/c/sob/cpBowel movement YesFlatus YesDiet Parenteral Nutrition - AdultDIET GASTRO INTESTINALAmbulating YesNausea NoEmesis NoCurrent Facility-Administered Medications:tamsulosin ER 0.4 mg cap(s) (FLOMAX) 0.4 mg ORAL DAILYParenteral Nutrition - Adult INTRAVENOUS ONCE TPN (1800 START)senna-docusate 8.6-50 mg 1 tablet (SENNA-S) 1 tablet ORAL BIDpolyethylene glycol 3350 17 g packet (MIRALAX, GLYCOLAX) 17 g ORAL DAILYpill manager critical care unit (patient-specific) 1 Each Miscell. (Med.Supl.;Non-Drugs) PRNdiltiazem 30 mg tab(s) (CARDIZEM) 30 mg NASOGASTRIC q 6 Hdigoxin 0.25 mg tab(s) (LANOXIN) 0.25 mg NASOGASTRIC DAILYmetoprolol tartrate (short acting) 25 mg tab(s) (LOPRESSOR) 25 mgNASOGASTRIC q 8 Hacetaminophen 650 mg tab(s) (TYLENOL) 650 mg ORAL q 6 Hmorphine 4 mg injection 4 mg IV/IM q 4 H PRNketorolac 15 mg injection (TORADOL) 15 mg INTRAVENOUS q 6 Hondansetron 4 mg tab(s) (ZOFRAN) 4 mg ORAL q 6 H PRNOrondansetron (PF) 4 mg injection (ZOFRAN) 4 mg INTRAVENOUS q 6 H PRNlidocaine 10 mg/mL (1 %) 1-2 mg injection (XYLOCAINE) 0.1-0.2 mLINTRADERMAL PRNlactated ringers infusion 5-30 mL/hr INTRAVENOUS CONTINUOUSpantoprazole 40 mg injection (PROTONIX) 40 mg INTRAVENOUS BID AC(0600/1600)albuterol 2.5 mg /3 mL (0.083 %) 2.5 mg (PROVENTIL) 2.5 mg INHALATION q 4H PRNdextran 70-hypromellose 0.1-0.3 % 1 Drop ophthalmic drops (NATURAL BALANCETEARS) 1 Drop BOTH EYES PRNphenol 1 Nineveh (CHLORASEPTIC) 1 Nineveh MUCOUS MEMBRANE (TOPICAL MOUTH ANDTHROAT) q 2 H PRNbenzocaine-menthol 1 Lozenge (CEPACOL) 1 Lozenge MUCOUS MEMBRANE (TOPICALMOUTH AND THROAT) q 2 H PRNondansetron (PF) 4 mg injection (ZOFRAN) 4 mg INTRAVENOUS q 6 H PRN0.9% NaCl 10 mL 10 mL INTRAVENOUS q 12 H0.9% NaCl 20 mL 20 mL INTRAVENOUS PRNiv contrast (radiology procedure) INTRAVENOUS DIRECTED PRNenoxaparin 40 mg injection (LOVENOX) 40 mg SUBCUTANEOUS DAILYOBJECTIVE:ObjectivePHYSI AMBER EXAM:VITAL SIGNSBP 140/82 Pulse 94 Temp (Src) 97.7 (Oral) Resp 20 Ht 5' 9.016"(1.75m) Wt 172 lb (78.0kg) SpO2 99% BMI 25.39 kg/(m2).Temp (24hrs), Av.5 ?C (97.7 ?F), Min:36.4 ?C (97.5 ?F), Max:36.6 ?C(97.9 ?F)Date 09/25/17 07 - 09/26/17 0659 09/26/17 07 - 09/27/17 0659Shift 5221-6210 5999-6646 7790-3097 24 Hour Total 6029-2329 [id number] 24 Hour TotalINTAKE Shift TotalOUTPUT Urine 501 739 218 9110 Void (ml) 250 328 744 6343 Amount Voided Before Scan 250 250 Urine Not Saved 1 1 2 # of BMs Number of BMs 2 x 1 x 3 x Shift Total 501 801 350 1652Weight (kg) 78 78 78 78 78 78 78 78GENERAL: Alert, no distress, cooperativeSKIN: Skin color, texture, turgor normal. No rashes or lesions.LUNGS: Unlabored breathing on O2 Therapy: Nasal Cannula on Liters: 2 (pt.can take on and off as needed. placed on for sob. ) sating at SpO2: 99 %CARDIAC: rate and rhythm as above,ABDOMEN: Benign, Soft, No masses, hepatosplenomegaly, No lymphadenopathyand Mild tenderness in GeneralizedEXTREMITIES: ROM of all joint grossly normal: strength grossly normalbilaterally. No deformities noted.WOUND: No abdominal wound issuesDATA:Diagnostic tests reviewed for today's visit:No results for input(s): BODSITE, CTYPE, PH, PCO2, PO2, BE, HCO3, CO2CT,O2HB, COHB, MHGB, TEMP, PHTC, PCO2T, PO2T, O2AD in the last 72 hours.Recent Labs 09/25/1802174363HGVRK 0.58* 0.51* 0.49*BUN 9 9 9NA 139 141 141K 4.4 4.1 3.7CHLOR 108* 111* 108*CO2 26 26 28ANION 9 8 9GLUC 104* 73 110*CA 8.5 8.2* 8.3*WBC 8.15 8.27 8.00HB 9.3* 8.3* 8.2*HCT 29.5* 26.9* 26.3*PLT 454* 411* 341ASSESSMENT AND PLAN:Active Hospital Problems Diagnosis Date Noted- Atrial fibrillation with RVR ([facility]) 09/12/2017- Hematemesis 09/12/2017 Overview Note: Added automatically from request for surgery [id number]- Gastric outlet obstruction 09/12/2017 Overview Note: Added automatically from request for surgery [id number]- Severe protein-calorie malnutrition (HCC) 07/03/2017Assessment/Plan72 YOM with gastric/duodenal ulcers, GOO, A-fib/RVR. ?s/p EGD and duodenaldilitation. Hpylori negative.??- A-fib mgnt per medicine, currently on cardizem gtt. OK for PO meds fora-fib from surgery standpoint.- protonix- Dahiana soft diet, wean TPN- pt/ot - pt refusing to be seen by them.- replace electrolytes prn.- continue to monitor UOP. Pt w/ incomplete voiding but no discomfort.Pierce Montiel MDBryan [facility] Surgery Chief ResidentJune 2017 6:38 [facility] #: [facility] General Surgery Service Pager:For questions or concerns Mon-Fri 6a-5p please page [phone].After 5pm and on Weekends and Holidays, please page [phone] if in ICU or [phone] on RNF. Normal [facility] Basic Panelon 09-25-2017 Creatinine 0.51 mg/dL Low 0.67-1.[address] [facility] Comment on above: Performed By: #### P PHRS ####[facility] [place], [place] [address] Anion gap 8 mmol/L Normal 8-[address] [facility] Comment on above: Performed By: #### P PHRS ####[address] [address] CO2 26 mmol/L Normal 21-[address] [facility] Comment on above: Performed By: #### P PHRS ####[address] [address] Glucose mass conc 73 mg/dL Normal 70-[address] [facility] Comment on above: Performed By: #### P PHRS ####[address] [address] Urea nitrogen 9 mg/dL Normal 7-[address] [facility] Comment on above: Performed By: #### P PHRS ####[address] [address] Calcium 8.2 mg/dL Low 8.5-10.[address] [facility] Comment on above: Performed By: #### P PHRS ####[address] [address] Chloride 111 mmol/L High 98-[address] [facility] Comment on above: Performed By: #### P PHRS ####[address] [address] Potassium molar conc 4.1 mmol/L Normal 3.5-5.1 [facility] Comment on above: Performed By: #### P PHRS ####[place] [address] Sodium 141 mmol/L Normal 136-[address] [facility] Comment on above: Performed By: #### P PHRS ####[address] [address] CASE MANAGEMon 09-25-2017 CASE MANAGEM HNO ID: [id number] thor: Lakia (Rn) Mindy, RNService: Care ManagementAuthor Type: Registered NurseType: Care Mgt Progress NoteFiled: 09/25/2017 1:01 PMNote Text:CARE MANAGEMENT PROGRESS NOTESERVICE DATE: 09/25/2017SERVICE TIME: 12:53 PM LOS: 13 daysNeeds Prior to Discharge: Accepting Facility;Discharge TransportationChart reviewed. NG removed, tolerating soft diet, still receiving TPN. Idiscussed DC plan with pt. He is agreeable to [facility] only. I will askthem to reconsider since they denied acceptance based on his acuity lastweek and he is now improving. Await decisionSIGNATURE: Lakia Guillen RN PATIENT NAME: Cristina JeffreyDATE: September 25, 2017 : 12:53 PM PAGER/CONTACT #: [phone] Normal [facility] Hemogram/Diffon 09-25-2017 Abs Immature Grans 0.04 thou/cmm Normal 0.00-0.05 [facility] Comment on above: Performed By: #### P PHRS ####[place] [address] Abs. Baso 0.03 thou/cmm Normal 0.01-0.[address] [facility] Comment on above: Performed By: #### P PHRS ####[place] [address] Abs. [place]idan 0.90 thou/cmm High 0.30-0.[address] [facility] Comment on above: Performed By: #### P PHRS ####[place] [address] Abs. Neut (ANC) 4.56 thou/cmm Normal 1.78-5.[address] [facility] Comment on above: Performed By: #### P PHRS ####[place] [address] Basophils/100 WBC Auto (Bld) 0.4 % Normal [facility] Comment on above: Performed By: #### P PHRS ####[place] [address] Eosinophils 0.57 thou/cmm High 0.04-0.[address] [facility] Comment on above: Performed By: #### P PHRS ####[place] [address] Eosinophils/100 leukocytes 6.9 % Normal [facility] Comment on above: Performed By: #### P PHRS ####[place] [address] Erythrocyte distribution width Auto Ratio (RBC) 15.9 % High 11.6-14.[address] [facility] Comment on above: Performed By: #### P PHRS ####[place] [address] Erythrocytes (RBC) 3.05 mil/cmm Low 4.63-6.08 [facility] Comment on above: Performed By: #### P PHRS ####[place] [address] Hematocrit (HCT) 26.9 % Low 40.1-51.[address] [facility] Comment on above: Performed By: #### P PHRS ####[place] [address] Hemoglobin mass conc (Bld) 8.3 g/dL Low 13.7-17.[address] [facility] Comment on above: Performed By: #### P PHRS ####[place] [address] Immature Grans 0.50 % Normal [facility] Comment on above: Performed By: #### P PHRS ####[place] [address] Lymphocytes 2.17 thou/cmm Normal 0.84-2.[address] [facility] Comment on above: Performed By: #### P PHRS ####[place] [address] Lymphocytes/100 leukocytes 26.2 % Normal [facility] Comment on above: Performed By: #### P PHRS ####[place] [address] MCH 27.2 pg Normal 25.7-32.[address] [facility] Comment on above: Performed By: #### P PHRS ####[facility] [place], [place] [address] MCHC mass conc (RBC) 30.9 % Low 32.3-36.5 [facility] Comment on above: Performed By: #### P PHRS ####[address] [address] MCV 88.2 fL Normal 83.2-95.[address] [facility] Comment on above: Performed By: #### P PHRS ####[place] [address] Monocytes/100 leukocytes 10.9 % Normal [facility] Comment on above: Performed By: #### P PHRS ####[place] [address] Platelet mean volume (PMV) 9.4 fL Normal 8.7-12.[address] [facility] Comment on above: Performed By: #### P PHRS ####[place] [address] Platelets 411 thou/cmm High 141-[address] [facility] Comment on above: Performed By: #### P PHRS ####[place] [address] RDW SD 51.0 fl High 36.1-45.[address] [facility] Comment on above: Performed By: #### P PHRS ####[place] [address] Seg Neutrophil 55.1 % Normal [facility] Comment on above: Performed By: #### P PHRS ####[place] [address] WBC (Leukocytes) 8.27 thou/cmm Normal 4.23-9.[address] [facility] Comment on above: Performed By: #### P PHRS ####[place] [address] MDRD GFRon 09-25-2017 eGFR (non-black) mL/min/{1.73_m2} Normal >60mL/m in/ 1.73m2 [facility] Comment on above: Result Comment: If t he patient is , multiply the result by 1.210. Performed By: #### P PHRS ####[facility] [place], [place] [address] NURSING PROGon 09-25-2017 Protein mass conc HNO ID: [id number] thor: Vicki (Rn) KELLY Chowdhuryervice: NursingAuthor Type: Registered NurseType: Nursing Progress NoteFiled: 09/25/2017 12:52 PMNote Text:Dr. Godfrey notified that pt. Voided 250cc, then was bladder scanned and hadpost void residual of 446cc. Pt. Started on Flomax this AM. No new ordersgiven at this time. Will continue to monitor. Normal [facility] Protein mass conc HNO ID: [id number] Author: Leslee BarnettRn) Nate RN Service: Nursing Author Type: Registered Nurse Type: Nursing Progress Note Filed: 09/25/2017 3:19 AM Note Text: Cath flow administered and successful. 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 Has mild abd pain.Tolerating diet.Bowel movement NoFlatus YesDiet Parenteral Nutrition - AdultDIET GASTRO INTESTINALAmbulating YesNausea NoEmesis NoCurrent Facility-Administered Medications:senna-docusate 8.6-50 mg 1 tablet (SENNA-S) 1 tablet ORAL BIDpolyethylene glycol 3350 17 g packet (MIRALAX, GLYCOLAX) 17 g ORAL DAILYParenteral Nutrition - Adult INTRAVENOUS ONCE TPN (1800 START)pill manager critical care unit (patient-specific) 1 Each Miscell. (Med.Supl.;Non-Drugs) PRNdiltiazem 30 mg tab(s) (CARDIZEM) 30 mg NASOGASTRIC q 6 Hdigoxin 0.25 mg tab(s) (LANOXIN) 0.25 mg NASOGASTRIC DAILYmetoprolol tartrate (short acting) 25 mg tab(s) (LOPRESSOR) 25 mgNASOGASTRIC q 8 Hacetaminophen 650 mg tab(s) (TYLENOL) 650 mg ORAL q 6 Hmorphine 4 mg injection 4 mg IV/IM q 4 H PRNketorolac 15 mg injection (TORADOL) 15 mg INTRAVENOUS q 6 Hondansetron 4 mg tab(s) (ZOFRAN) 4 mg ORAL q 6 H PRNOrondansetron (PF) 4 mg injection (ZOFRAN) 4 mg INTRAVENOUS q 6 H PRNlidocaine 10 mg/mL (1 %) 1-2 mg injection (XYLOCAINE) 0.1-0.2 mLINTRADERMAL PRNlactated ringers infusion 5-30 mL/hr INTRAVENOUS CONTINUOUSertapenem 1 g in NaCl 0.9% 100 mL MB+ (INVanz) 1 g INTRAVENOUS q 24 Hpantoprazole 40 mg injection (PROTONIX) 40 mg INTRAVENOUS BID AC(0600/1600)albuterol 2.5 mg /3 mL (0.083 %) 2.5 mg (PROVENTIL) 2.5 mg INHALATION q 4H PRNdextran 70-hypromellose 0.1-0.3 % 1 Drop ophthalmic drops (NATURAL BALANCETEARS) 1 Drop BOTH EYES PRNphenol 1 Nineveh (CHLORASEPTIC) 1 Nineveh MUCOUS MEMBRANE (TOPICAL MOUTH ANDTHROAT) q 2 H PRNbenzocaine-menthol 1 Lozenge (CEPACOL) 1 Lozenge MUCOUS MEMBRANE (TOPICALMOUTH AND THROAT) q 2 H PRNondansetron (PF) 4 mg injection (ZOFRAN) 4 mg INTRAVENOUS q 6 H PRN0.9% NaCl 10 mL 10 mL INTRAVENOUS q 12 H0.9% NaCl 20 mL 20 mL INTRAVENOUS PRNiv contrast (radiology procedure) INTRAVENOUS DIRECTED PRNenoxaparin 40 mg injection (LOVENOX) 40 mg SUBCUTANEOUS DAILYOBJECTIVE:ObjectivePHYSI AMBER EXAM:VITAL SIGNSBP 128/82 Pulse 94 Temp (Src) 97.7 (Oral) Resp 20 Ht 5' 9.016"(1.75m) Wt 172 lb (78.0kg) SpO2 99% BMI 25.39 kg/(m2).Temp (24hrs), Av.6 ?C (97.8 ?F), Min:36.5 ?C (97.7 ?F), Max:36.8 ?C(98.2 ?F)Date 09/24/[address] - 09/25/17 0659 09/25/[address] - 09/26/17 0659Shift 0860-7424 0831-7046 1425-5486 24 Hour Total 1539-0179 3152-96002788-9991 24 Hour TotalINTAKE PO 420 420 PO 420 420 Shift Total 420 420OUTPUT Urine 1 3309 377 3190 Void (ml) 676 855 4471 Straight cath (ml) 268 854 5725 Urine Not Saved 1 1 # of BMs Number of BMs 2 x 2 x Shift Total 1 1700 950 2651Weight (kg) 77.1 77.1 78 78 78 78 78 78GENERAL: Alert, no distress, cooperativeSKIN: Skin color, texture, turgor normal. No rashes or lesions.LUNGS: Unlabored breathing on O2 Therapy: Nasal Cannula on Liters: 2 (pt.can take on and off as needed. placed on for sob. ) sating at SpO2: 99 %CARDIAC: rate and rhythm as above,ABDOMEN: Benign, Soft, No masses, hepatosplenomegaly, No lymphadenopathyand Mild tenderness in GeneralizedEXTREMITIES: ROM of all joint grossly normal: strength grossly normalbilaterally. No deformities noted.WOUND: No abdominal wound issuesDATA:Diagnostic tests reviewed for today's visit:No results for input(s): BODSITE, CTYPE, PH, PCO2, PO2, BE, HCO3, CO2CT,O2HB, COHB, MHGB, TEMP, PHTC, PCO2T, PO2T, O2AD in the last 72 hours.Recent Labs 09/24/1800CREAT 0.51* 0.49* 0.54* 0.58*BUN 9 9 10 13NA 141 141 140 138K 4.1 3.7 4.0 4.5CHLOR 111* 108* 108* 107CO2 26 28 28 25ANION 8 9 8 11GLUC 73 110* 124* 141*CA 8.2* 8.3* 8.3* 8.2*P -- -- 3.7 3.2MG -- -- 2.1 1.9WBC 8.27 8.00 8.86 10.23*HB 8.3* 8.2* 8.3* 8.2*HCT 26.9* 26.3* 26.6* 26.3*PLT 411* 341 364 373*ASSESSMENT AND PLAN:Active Hospital Problems Diagnosis Date Noted- Atrial fibrillation with RVR ([facility]) 09/12/2017- Hematemesis 09/12/2017 Overview Note: Added automatically from request for surgery [id number]- Gastric outlet obstruction 09/12/2017 Overview Note: Added automatically from request for surgery [id number]- Severe protein-calorie malnutrition (HCC) 07/03/2017Assessment/Plan72 YOM with gastric/duodenal ulcers, GOO, A-fib/RVR. ?s/p EGD and duodenaldilitation. Hpylori negative.??- A-fib mgnt per medicine, currently on cardizem gtt. OK for PO meds fora-fib from surgery standpoint.- protonix- Dahiana soft diet, cont TPN- pt/ot - pt refusing to be seen by them.- replace electrolytes prn.- pt appears to be having urinary retention starting flomax and obtainingua, if unable to urinate will place miranda catheter.SIGNATURE: Jaren Godfrey MD PATIENT NAME: Cristina JeffreyDATE: September 25, 2017 : 6:41 AM PAGER: [phone] Normal [facility] Prealbuminon 09-25-2017 Prealbumin 16.2 mg/dL Low 20.0-40.[address] [facility] Comment on above: Performed By: #### P PHRS ####[address] [address] Urinalysis, reflexon 018 Reflex Comment see below Normal [facility] Comment on above: Result Comment: Refl ex to culture is not indicated based onestablished laboratory criteria. Performed By: #### P PHRS ####[address] [address] Ep Cells Urine 0.1 /hpf Normal 0.0-5.[address] [facility] Comment on above: Performed By: #### P PHRS ####[facility] [place], [place] [address] Hyaline Cast 0.0 /lpf Normal 0.0-1.[address] [facility] Comment on above: Performed By: #### P PHRS ####[address] [address] Urine, bacteria in sediment NONE Normal None [facility] Comment on above: Performed By: #### P PHRS ####[place] [address] Urine, erythrocytes in sediment by area 0.5 /[HPF] Normal 0.0-5.[address] [facility] Comment on above: Performed By: #### P PHRS ####[place] [address] WBC (Leukocytes) 0.00 /hpf Normal 0.00-5.[address] [facility] Comment on above: Performed By: #### P PHRS ####[address] [address] Bilirubin Urine Negative Normal Negative [facility] Comment on above: Performed By: #### P PHRS ####[address] [address] Hemoglobin,Urine Negative Normal Negative [facility] Comment on above: Performed By: #### P PHRS ####[address] [address] Ketone Urine Negative Normal Negative [facility] Comment on above: Performed By: #### P PHRS ####[address] [address] Nitrite reflex Negative Normal Negative [facility] Comment on above: Performed By: #### P PHRS ####[place] [address] Protein Urine Negative Normal Negative [facility] Comment on above: Performed By: #### P PHRS ####[place] [address] Specific Girard, Ur 1.011 Normal 1.005-1 .[address] [facility] Comment on above: Performed By: #### P PHRS ####[place] [address] Urine, appearance CLOUDY Normal [facility] Comment on above: Performed By: #### P PHRS ####[place] [address] Urine, color YELLOW Normal [facility] Comment on above: Performed By: #### P PHRS ####[place] [address] Urine, glucose presence Negative Normal Negative [facility] Comment on above: Performed By: #### P PHRS ####[place] [address] Urine, leukocyte esterase presence Negative Normal Negative [facility] Comment on above: Performed By: #### P PHRS ####[place] [address] Urine, pH 8.0 [pH] Normal 5.0-8.[address] [facility] Comment on above: Performed By: #### P PHRS ####[place] [address] Urobilinogen,Ur 0.2 EU/dL Normal 0.0-1.[address] [facility] Comment on above: Performed By: #### P PHRS ####[place] [address] Basic Panelon 09-24-2017 Creatinine 0.49 mg/dL Low 0.67-1.[address] [facility] Comment on above: Performed By: #### P PHRS ####[place] [address] Glucose mass conc 110 mg/dL High 70-[address] [facility] Comment on above: Performed By: #### P PHRS ####[place] [address] Urea nitrogen 9 mg/dL Normal 7-[address] [facility] Comment on above: Performed By: #### P PHRS ####[place] [address] [place] [address] Anion gap 9 mmol/L Normal 8-[address] [facility] Comment on above: Performed By: #### P PHRS ####[facility] [place] [address] Calcium 8.3 mg/dL Low 8.5-10.[address] [facility] Comment on above: Performed By: #### P PHRS ####[facility] [place] [address] CO2 28 mmol/L Normal 21-[address] [facility] Comment on above: Performed By: #### P PHRS ####[place] [address] Chloride 108 mmol/L High 98-[address] [facility] Comment on above: Performed By: #### P PHRS ####[place] [address] Potassium molar conc 3.7 mmol/L Normal 3.5-5.1 [facility] Comment on above: Performed By: #### P PHRS ####[place] [address] Sodium 141 mmol/L Normal 136-[address] [facility] Comment on above: Performed By: #### P PHRS ####[place] [address] Hemogram/Diffon 09-24-2017 Abs Immature Grans 0.03 thou/cmm Normal 0.00-0.05 [facility] Comment on above: Performed By: #### P PHRS ####[place] [address] Abs. Baso 0.04 thou/cmm Normal 0.01-0.[address] [facility] Comment on above: Performed By: #### P PHRS ####[place] [address] Abs. [place] 0.93 thou/cmm High 0.30-0.[address] [facility] Comment on above: Performed By: #### P PHRS ####[place] [id number] Abs. Neut (ANC) 4.14 thou/cmm Normal 1.78-5.[address] [facility] Comment on above: Performed By: #### P PHRS ####[place] [address] Basophils/100 WBC Auto (Bld) 0.5 % Normal [facility] Comment on above: Performed By: #### P PHRS ####[place] [address] Eosinophils 0.46 thou/cmm Normal 0.04-0.[address] [facility] Comment on above: Performed By: #### P PHRS ####[place] [address] Eosinophils/100 leukocytes 5.8 % Normal [facility] Comment on above: Performed By: #### P PHRS ####[place] [address] Erythrocyte distribution width Auto Ratio (RBC) 15.8 % High 11.6-14.[address] [facility] Comment on above: Performed By: #### P PHRS ####[place] [address] Erythrocytes (RBC) 2.97 mil/cmm Low 4.63-6.08 [facility] Comment on above: Performed By: #### P PHRS ####[place] [address] Hematocrit (HCT) 26.3 % Low 40.1-51.[address] [facility] Comment on above: Performed By: #### P PHRS ####[place] [address] Hemoglobin mass conc (Bld) 8.2 g/dL Low 13.7-17.[address] [facility] Comment on above: Performed By: #### P PHRS ####[place] [address] Immature Grans 0.40 % Normal [facility] Comment on above: Performed By: #### P PHRS ####[place] [address] Lymphocytes 2.40 thou/cmm Normal 0.84-2.[address] [facility] Comment on above: Performed By: #### P PHRS ####[address] [address] Lymphocytes/100 leukocytes 30.0 % Normal [facility] Comment on above: Performed By: #### P PHRS ####[address] [address] MCH 27.6 pg Normal 25.7-32.[address] [facility] Comment on above: Performed By: #### P PHRS ####[address] [address] MCHC mass conc (RBC) 31.2 % Low 32.3-36.5 [facility] Comment on above: Performed By: #### P PHRS ####[address] [address] MCV 88.6 fL Normal 83.2-95.[address] [facility] Comment on above: Performed By: #### P PHRS ####[address] [address] Monocytes/100 leukocytes 11.6 % Normal [facility] Comment on above: Performed By: #### P PHRS ####[address] [address] Platelet mean volume (PMV) 9.3 fL Normal 8.7-12.[address] [facility] Comment on above: Performed By: #### P PHRS ####[address] [address] Platelets 341 thou/cmm Normal 141-[address] [facility] Comment on above: Performed By: #### P PHRS ####[address] [address] RDW SD 50.7 fl High 36.1-45.[address] [facility] Comment on above: Performed By: #### P PHRS ####[address] [address] Seg Neutrophil 51.7 % Normal [facility] Comment on above: Performed By: #### P PHRS ####[facility] [place], [place] [address] WBC (Leukocytes) 8.00 thou/cmm Normal 4.23-9.[address] [facility] Comment on above: Performed By: #### P PHRS ####[address] [address] MDRD GFRon 09-24-2017 eGFR (non-black) mL/min/{1.73_m2} Normal >60mL/m in/ 1.73m2 [facility] Comment on above: Result Comment: If t he patient is , multiply the result by 1.210. Performed By: #### P PHRS ####[address] [address] NURSING PROGon 09-24-2017 Protein mass conc HNO ID: [id number] thor: Racheal (Gregory) Magdiel, RNService: (none)Author Type: Registered NurseType: Nursing Progress NoteFiled: 09/24/2017 11:10 AMNote Text: Nursing Progress NotePatient Name: Cristian JeffreyMRN: [id number] Location: [place] [address] [address]*____ Event(s) / Intervention Note:Patient had 13 beat run of VTACH, resting in bed, asymptomatic, VSS. notified. No new orders.This note was completed by: Racheal Veloz RN Normal [facility] PROGRESSon 09-24-2017 Protein mass conc HNO ID: [id number] thor: Jaren (Rosario Rodríguez: General SurgeryAuthor Type: ResidentType: Progress NotesFiled: 09/24/2017 9:23 AMNote Text: At testation signed by Raul Cook at 09/24/2017 11:51 AMI saw and evaluated the patient. 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 s/p gastrojejunostomy and truncal vagotomyPt feels well today, dahiana cld, pain controled.Bowel movement NoFlatus YesDiet Parenteral Nutrition - AdultDIET LIQUIDParenteral Nutrition - AdultAmbulating YesNausea NoEmesis NoCurrent Facility-Administered Medications:senna-docusate 8.6-50 mg 1 tablet (SENNA-S) 1 tablet ORAL BIDpolyethylene glycol 3350 17 g packet (MIRALAX, GLYCOLAX) 17 g ORAL DAILYParenteral Nutrition - Adult INTRAVENOUS ONCE TPN (1800 START)pill manager critical care unit (patient-specific) 1 Each Miscell. (Med.Supl.;Non-Drugs) PRNdiltiazem 30 mg tab(s) (CARDIZEM) 30 mg NASOGASTRIC q 6 Hdigoxin 0.25 mg tab(s) (LANOXIN) 0.25 mg NASOGASTRIC DAILYmetoprolol tartrate (short acting) 25 mg tab(s) (LOPRESSOR) 25 mgNASOGASTRIC q 8 Hacetaminophen 650 mg tab(s) (TYLENOL) 650 mg ORAL q 6 Hdextrose 5% in LR infusion (D5-LR) 75 mL/hr INTRAVENOUS CONTINUOUSmorphine 4 mg injection 4 mg IV/IM q 4 H PRNketorolac 15 mg injection (TORADOL) 15 mg INTRAVENOUS q 6 Hondansetron 4 mg tab(s) (ZOFRAN) 4 mg ORAL q 6 H PRNOrondansetron (PF) 4 mg injection (ZOFRAN) 4 mg INTRAVENOUS q 6 H PRNlidocaine 10 mg/mL (1 %) 1-2 mg injection (XYLOCAINE) 0.1-0.2 mLINTRADERMAL PRNlactated ringers infusion 5-30 mL/hr INTRAVENOUS CONTINUOUSertapenem 1 g in NaCl 0.9% 100 mL MB+ (INVanz) 1 g INTRAVENOUS q 24 Hpantoprazole 40 mg injection (PROTONIX) 40 mg INTRAVENOUS BID AC(0600/1600)albuterol 2.5 mg /3 mL (0.083 %) 2.5 mg (PROVENTIL) 2.5 mg INHALATION q 4H PRNdextran 70-hypromellose 0.1-0.3 % 1 Drop ophthalmic drops (NATURAL BALANCETEARS) 1 Drop BOTH EYES PRNphenol 1 Nineveh (CHLORASEPTIC) 1 Nineveh MUCOUS MEMBRANE (TOPICAL MOUTH ANDTHROAT) q 2 H PRNbenzocaine-menthol 1 Lozenge (CEPACOL) 1 Lozenge MUCOUS MEMBRANE (TOPICALMOUTH AND THROAT) q 2 H PRNondansetron (PF) 4 mg injection (ZOFRAN) 4 mg INTRAVENOUS q 6 H PRN0.9% NaCl 10 mL 10 mL INTRAVENOUS q 12 H0.9% NaCl 20 mL 20 mL INTRAVENOUS PRNiv contrast (radiology procedure) INTRAVENOUS DIRECTED PRNenoxaparin 40 mg injection (LOVENOX) 40 mg SUBCUTANEOUS DAILYOBJECTIVE:ObjectivePHYSI AMBER EXAM:VITAL SIGNSBP 115/71 Pulse 103 Temp (Src) 97.7 (Oral) Resp 16 Ht 5' 9.016"(1.75m) Wt 169 lb 15.6 oz (77.1kg) SpO2 98% BMI 25.09 kg/(m2).Temp (24hrs), Av.6 ?C (97.8 ?F), Min:36.4 ?C (97.5 ?F), Max:36.6 ?C(97.9 ?F)Date 09/23/17 0700 - 06/03/18 0659 09/24/17 07 - 09/25/17 0659Shift 4185-0263 5057-0983 7721-8388 24 Hour Total 9211-9617 [id number] 24 Hour TotalINTAKE Shift TotalOUTPUT Urine 251 382 3893 Void (ml) 284 856 7349 Tubes 300 300 Output ([REMOVED] GI Feed/Drain 09/16/17 2130 Nasogastric Right Naris09/23/17 1044) 300 300 Shift Total 300 580 800 1680Weight (kg) 76.9 76.9 76.9 76.9 77.1 77.1 77.1 77.1GENERAL: Alert, no distress, cooperativeSKIN: Skin color, texture, turgor normal. No rashes or lesions.LUNGS: Unlabored breathing on O2 Therapy: Room Air on Liters: 3 sating atSpO2: 98 %CARDIAC: rate and rhythm as above,ABDOMEN: Benign, Soft, No masses, hepatosplenomegaly, No lymphadenopathyand Mild tenderness in GeneralizedEXTREMITIES: ROM of all joint grossly normal: strength grossly normalbilaterally. No deformities noted.WOUND: N/ADATA:Diagnostic tests reviewed for today's visit:No results for input(s): BODSITE, CTYPE, PH, PCO2, PO2, BE, HCO3, CO2CT,O2HB, COHB, MHGB, TEMP, PHTC, PCO2T, PO2T, O2AD in the last 72 hours.Recent Labs 09/24/[address] CREAT 0.49* 0.54* 0.58*BUN 9 10 13NA 141 140 138K 3.7 4.0 4.5CHLOR 108* 108* 107CO2 28 28 25ANION 9 8 11GLUC 110* 124* 141*CA 8.3* 8.3* 8.2*P -- 3.7 3.2MG -- 2.1 1.9WBC 8.00 8.86 10.23*HB 8.2* 8.3* 8.2*HCT 26.3* 26.6* 26.3*PLT 341 364 373*ASSESSMENT AND PLAN:Active Hospital Problems Diagnosis Date Noted- Atrial fibrillation with RVR (HCC) 09/12/2017- Hematemesis 09/12/2017 Overview Note: Added automatically from request for surgery [id number]- Gastric outlet obstruction 09/12/2017 Overview Note: Added automatically from request for surgery [id number]- Severe protein-calorie malnutrition (HCC) 07/03/2017Assessment/Plan72 YOM with gastric/duodenal ulcers, GOO, A-fib/RVR. ?s/p EGD and duodenaldilitation. Hpylori negative.??- A-fib mgnt per medicine, currently on cardizem gtt. OK for PO meds fora-fib from surgery standpoint.- protonix- NG removed- Dahiana CLD will adv to soft, cont TPNSIGNATURE: Jaren Godfrey MD PATIENT NAME: Cristina JeffreyDATE: September 24, 2017 : 9:21 AM PAGER: [phone] Normal [facility] Basic Panelon 09-23-2017 Creatinine 0.54 mg/dL Low 0.67-1.[address] [facility] Comment on above: Performed By: #### P PHRS ####[address] [address] Anion gap 8 mmol/L Normal 8-[address] [facility] Comment on above: Performed By: #### P PHRS ####[address] [address] Calcium 8.3 mg/dL Low 8.5-10.[address] [facility] Comment on above: Performed By: #### P PHRS ####[address] [address] CO2 28 mmol/L Normal 21-[address] [facility] Comment on above: Performed By: #### P PHRS ####[address] [address] Glucose mass conc 124 mg/dL High 70-[address] [facility] Comment on above: Performed By: #### P PHRS ####[address] [address] Urea nitrogen 10 mg/dL Normal 7-[address] [facility] Comment on above: Performed By: #### P PHRS ####[address] [address] Chloride 108 mmol/L High 98-[address] [facility] Comment on above: Performed By: #### P PHRS ####[place] [address] Potassium molar conc 4.0 mmol/L Normal 3.5-5.1 [facility] Comment on above: Performed By: #### P PHRS ####[place] [address] Sodium 140 mmol/L Normal 136-[address] [facility] Comment on above: Performed By: #### P PHRS ####[place] [address] Glucose Meteron 09-23-2017 Glucose mass conc 136 mg/dL High 70-[address] [facility] Comment on above: Result Comment: GREGORY Alvarado OTIFIED Performed By: #### P PHRS ####[place] [address] Glucose mass conc 137 mg/dL High 70-[address] [facility] Comment on above: Result Comment: GREGORY Alvarado OTIFIED Performed By: #### P PHRS ####[place] [address] Hemogram/Diffon 09-23-2017 Abs Immature Grans 0.07 thou/cmm High 0.00-0.05 [facility] Comment on above: Performed By: #### P PHRS ####[place] [address] Abs. Baso 0.03 thou/cmm Normal 0.01-0.[address] [facility] Comment on above: Performed By: #### P PHRS ####[place] [address] Abs. [place]idan 1.08 thou/cmm High 0.30-0.[address] [facility] Comment on above: Performed By: #### P PHRS ####[place] [address] Abs. Neut (ANC) 5.23 thou/cmm Normal 1.78-5.[address] [facility] Comment on above: Performed By: #### P PHRS ####[address] [address] Basophils/100 WBC Auto (Bld) 0.3 % Normal [facility] Comment on above: Performed By: #### P PHRS ####[address] [address] Eosinophils 0.41 thou/cmm Normal 0.04-0.[address] [facility] Comment on above: Performed By: #### P PHRS ####[place] [address] Eosinophils/100 leukocytes 4.6 % Normal [facility] Comment on above: Performed By: #### P PHRS ####[place] [address] Erythrocyte distribution width Auto Ratio (RBC) 15.9 % High 11.6-14.[address] [facility] Comment on above: Performed By: #### P PHRS ####[place] [address] Erythrocytes (RBC) 3.00 mil/cmm Low 4.63-6.08 [facility] Comment on above: Performed By: #### P PHRS ####[place] [address] Hematocrit (HCT) 26.6 % Low 40.1-51.[address] [facility] Comment on above: Performed By: #### P PHRS ####[place] [address] Hemoglobin mass conc (Bld) 8.3 g/dL Low 13.7-17.[address] [facility] Comment on above: Performed By: #### P PHRS ####[place] [address] Immature Grans 0.80 % Normal [facility] Comment on above: Performed By: #### P PHRS ####[place] [address] Lymphocytes 2.05 thou/cmm Normal 0.84-2.[address] [facility] Comment on above: Performed By: #### P PHRS ####[facility] [place], [place] [address] Lymphocytes/100 leukocytes 23.1 % Normal [facility] Comment on above: Performed By: #### P PHRS ####[address] [address] MCH 27.7 pg Normal 25.7-32.[address] [facility] Comment on above: Performed By: #### P PHRS ####[place] [address] MCHC mass conc (RBC) 31.2 % Low 32.3-36.5 [facility] Comment on above: Performed By: #### P PHRS ####[place] [address] MCV 88.7 fL Normal 83.2-95.[address] [facility] Comment on above: Performed By: #### P PHRS ####[place] [address] Monocytes/100 leukocytes 12.2 % Normal [facility] Comment on above: Performed By: #### P PHRS ####[place] [address] Platelet mean volume (PMV) 9.4 fL Normal 8.7-12.[address] [facility] Comment on above: Performed By: #### P PHRS ####[address] [address] Platelets 364 thou/cmm Normal 141-[address] [facility] Comment on above: Performed By: #### P PHRS ####[address] [address] RDW SD 51.5 fl High 36.1-45.[address] [facility] Comment on above: Performed By: #### P PHRS ####[address] [address] Seg Neutrophil 59.0 % Normal [facility] Comment on above: Performed By: #### P PHRS ####[place] [address] WBC (Leukocytes) 8.86 thou/cmm Normal 4.23-9.[address] [facility] Comment on above: Performed By: #### P PHRS ####[facility] [place], [place] [address] MDRD GFRon 09-23-2017 eGFR (non-black) mL/min/{1.73_m2} Normal >60mL/m in/ 1.73m2 [facility] Comment on above: Result Comment: If t he patient is , multiply the result by 1.210. Performed By: #### P PHRS ####[facility] [place], [place] [address] Magnesium Bloodon 09-23-2017 Magnesium 2.1 mg/dL Normal 1.6-2.[address] [facility] Comment on above: Performed By: #### P PHRS ####[address] [address] PROGRESSon 09-23-2017 Protein mass conc HNO ID: [id number] thor: Yina Steenervice: [facility] MedicineAuthor Type: PhysicianType: Progress NotesFiled: 09/23/2017 2:21 PMNote Text:INTERNAL MEDICINE PROGRESS NOTE ADMIT DATE: 09/12/2017 1:30 PMSERVICE DATE: 09/23/2017INTERVAL HISTORY:F/u : a fib, pancreatic mass, gastric outlet obstructionS: Pt tolerating clears. Anxious to try regular diet and go home JULIEN.Passing gas. No NVMEDICATIONS:Current hospital medications:Parenteral Nutrition - Adult INTRAVENOUS ONCE TPN (1800 START)Parenteral Nutrition - Adult INTRAVENOUS ONCE TPN (1800 START)pill manager critical care unit (patient-specific) 1 Each Miscell. (Med.Supl.;Non-Drugs) PRNdiltiazem 30 mg tab(s) (CARDIZEM) 30 mg NASOGASTRIC q 6 Hdigoxin 0.25 mg tab(s) (LANOXIN) 0.25 mg NASOGASTRIC DAILYmetoprolol tartrate (short acting) 25 mg tab(s) (LOPRESSOR) 25 mgNASOGASTRIC q 8 Hacetaminophen 650 mg tab(s) (TYLENOL) 650 mg ORAL q 6 Hdextrose 5% in LR infusion (D5-LR) 75 mL/hr INTRAVENOUS CONTINUOUSmorphine 4 mg injection 4 mg IV/IM q 4 H PRNketorolac 15 mg injection (TORADOL) 15 mg INTRAVENOUS q 6 Hondansetron 4 mg tab(s) (ZOFRAN) 4 mg ORAL q 6 H PRNondansetron (PF) 4 mg injection (ZOFRAN) 4 mg INTRAVENOUS q 6 H PRNlidocaine 10 mg/mL (1 %) 1-2 mg injection (XYLOCAINE) 0.1-0.2 mLINTRADERMAL PRNlactated ringers infusion 5-30 mL/hr INTRAVENOUS CONTINUOUSertapenem 1 g in NaCl 0.9% 100 mL MB+ (INVanz) 1 g INTRAVENOUS q 24 Hpantoprazole 40 mg injection (PROTONIX) 40 mg INTRAVENOUS BID AC(0600/1600)albuterol 2.5 mg /3 mL (0.083 %) 2.5 mg (PROVENTIL) 2.5 mg INHALATION q 4H PRNdextran 70-hypromellose 0.1-0.3 % 1 Drop ophthalmic drops (NATURAL BALANCETEARS) 1 Drop BOTH EYES PRNphenol 1 Nineveh (CHLORASEPTIC) 1 Nineveh MUCOUS MEMBRANE (TOPICAL MOUTH ANDTHROAT) q 2 H PRNbenzocaine-menthol 1 Lozenge (CEPACOL) 1 Lozenge MUCOUS MEMBRANE (TOPICALMOUTH AND THROAT) q 2 H PRNondansetron (PF) 4 mg injection (ZOFRAN) 4 mg INTRAVENOUS q 6 H PRN0.9% NaCl 10 mL 10 mL INTRAVENOUS q 12 H0.9% NaCl 20 mL 20 mL INTRAVENOUS PRNiv contrast (radiology procedure) INTRAVENOUS DIRECTED PRNenoxaparin 40 mg injection (LOVENOX) 40 mg SUBCUTANEOUS DAILYPHYSICAL EXAM:VITAL SIGNS 843 157 200 351BP: 125/67 127/66 130/63 105/57Pulse: 94 100 96 96Resp: 18 18 18Temp: 36.4 ?C (97.5 ?F) 36.5 ?C (97.7 ?F) 36.5 ?C (97.7 ?F)TempSrc: Oral Oral OralSpO2: 97% 97% 96%Weight:Height:Temp (24hrs), Av.6 ?C (97.9 ?F), Min:36.4 ?C (97.5 ?F), Max:36.8 ?C(98.2 ?F)Body mass index is 25.02 kg/m?.INTAKE/OUTPUTIntake/Out put Summary (Last 24 hours) at 09/23/17 1420Last data filed at 09/23/17 1000 Gross per 24 hourIntake 1977 mlOutput 1865 mlNet 112 mlPhysical Exam:Gen: Alert and Orientated x 3, No acute distressHEENT: EOMI, PERRLA, anicteric, no pallor, no facial droop, NG tubeCV: S1/S2 irregularrhythm, no murmurs, rubs and gallops, no reproduciblepain, + 2 radial pulses - equalResp: Clear to auscultation bilaterally, no wheezes, rales, rhonchi orcracklesAbd: + Bowel sounds, soft, in dressingExt: no pitting edemaLAB DATA:CBC:Recent Labs 09/22/1806WBC 8.86 10.23* 10.02* 10.27* 8.98 9.34* 8.16HB 8.3* 8.2* 9.5* 9.5* 9.1* 9.8* 8.7*HCT 26.6* 26.3* 29.5* 29.7* 28.7* 30.2* 26.9*PLT 364 373* 403* 445* 428* 435* 346MCV 88.7 88.3 86.5 86.3 88.3 86.8 88.2COAG: No results for input(s): APTT, INR in the last 168 hours.BMP:Recent Labs 09/22/1806GLUC 124* 141* 115* 99 115* 129* 119*NA 140 138 135* 137 137 137 137K 4.0 4.5 4.1 4.2 4.2 4.5 4.1CHLOR 108* 107 105 105 106 108* 107CO2 28 25 26 27 26 24 25ANION 8 11 8 9 9 10 9BUN 10 13 12 14 13 11 9CREAT 0.54* 0.58* 0.56* 0.53* 0.46* 0.45* 0.48*CHEM:Recent Labs 5 09/22/1803400 415[address]CA 8.3* 8.2* 8.8 8.6 8.7 8.6 8.3*MG 2.1 1.9 2.0 2.1 2.1 2.3 2.3CXR: no A/PCT A/P:1. ?There are findings of gastric outlet obstruction with a severelydistended and?fluid-filled stomach. ?The duodenum is collapsed with a suggestion ofmild wallthickening in addition to irregular infiltration of the surrounding fatwith a few?mildly enlarged adjacent nodes. ?While this could represent aninflammatory orneoplastic process of the duodenum, all findings are thought to mostlikely besecondary to a pancreatic head mass worrisome for neoplasm.2. ?Cholelithiasis.3. ?Probable hepatic and right renal cysts, although this should beconfirmed byultrasound.CT C/A/P:High-grade gastric outlet obstruction.?Fluid density mass or masses within the head and uncinate of the pancreas.?Differential considerations include pseudocysts, cystic neoplasm andintraductalpapillary mucinous neoplasm. ?Alternatively, findings could potentiallyrepresentdilated pancreatic duct.?Several indeterminate nodular densities in the pancreaticoduodenal regionwithassociated infiltration of fat and periduodenal fluid.?Innumerable pulmonary nodules, predominantly calcified, but alsononcalcifiedscattered throughout both lungs. ?The majority of pulmonary nodulesmeasure lessthan 4 mm in size. ?On the right, there are centrilobular nodules andgroundglassopacity within the medial lower lobe possibly inflammatory or infectious.?Thereis small volume consolidation within the posterior costophrenic angle,possibleatelectasis or pneumonia. ?On the left, there is small volumeconsolidation inprofile with the inferior major fissure at the lung base suggestingatelectasis. ?There is an indeterminate ill-defined subpleural nodule redemonstratedwithin theposterior lower lobe. ?There is small volume consolidation within theposteriorcostophrenic angle, possible atelectasis or pneumonia, with very smallpleuraleffusion.?Contrac [place] gallbladder with multiple radiopaque gallstones. ?There is mildgallbladder wall thickening and infiltration of pericholecystic fat.?Correlateclinically with clinical concern for acute gallstones.?Dilated distal thoracic aortic arch-proximal descending thoracic aortameasuring 4?cm in diameter. ?The descending thoracic aorta mildly tapers in diameterdistally.?Hepatic cysts.?1 cm hypervascular nodule within the medial spleen.?Bilateral renal cortical cystic lesions, the joint too small tocharacterize by CT?criteria.Component Latest Ref Rng AND Units 09/12/2017 09/13/2017Gastrin SEE [id number] 0.0 - 35.0 U/ml 8.1CEA 0.0 - 3.0 ng/mL 1.7Chromogranin A SEE BELOWBiopsy:GASTRIC ANTRUM, BIOPSIES - INTESTINAL METAPLASIA. ?NEGATIVE FORDYSPLASIA OR CARCINOMA. ?CHRONIC AND ACTIVE GASTRITIS. ?NEGATIVE FORHELICOBACTER ORGANISMS. ?H. 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 s/plap gastrojejunostomy with truncal vagotomy- per surgery# A fib with RVR - rate controlled on PO meds, per EP# Severe Protein Calorie Malnutrition - c/w TPNWill sign off please call with questions?VTE Prophylaxis: per primaryDisposition: SNFPlan of care discussed with: Patient, Nurse, CMRupal Robbie Yeboah [id number] Normal [facility] Protein mass conc HNO ID: [id number] thor: Jaren (Adelina) EpifanoiSersiddharthe: General SurgeryAuthor Type: ResidentType: Progress NotesFiled: 09/23/2017 12:04 PMNote Text: At testation signed by Raul Cook at 09/23/2017 9:48 PMI saw and evaluated the patient. Discussed with the resident and agree withresident's findings and plan as documented in the resident's note.Raul Cook MD, FACSJune 2017 9:48 PM PROGR ESS NOTESurgery Progress NoteSERVICE DATE: 09/23/2017SERVICE TIME: 7:17 AMSUBJECTIVE:SubjectiveSubjec tive: This is a 72 year old male w/ GOO s/p gastrojejunostomy withtruncal vagotomy on 09/21Bowel movement YesFlatus YesDiet DIET NPOParenteral Nutrition - AdultAmbulating YesNausea NoEmesis NoCurrent Facility-Administered Medications:Parenteral Nutrition - Adult INTRAVENOUS ONCE TPN (1800 START)pill manager critical care unit (patient-specific) 1 Each Miscell. (Med.Supl.;Non-Drugs) PRNdiltiazem 30 mg tab(s) (CARDIZEM) 30 mg NASOGASTRIC q 6 Hdigoxin 0.25 mg tab(s) (LANOXIN) 0.25 mg NASOGASTRIC DAILYmetoprolol tartrate (short acting) 25 mg tab(s) (LOPRESSOR) 25 mgNASOGASTRIC q 8 Hacetaminophen 650 mg tab(s) (TYLENOL) 650 mg ORAL q 6 Hdextrose 5% in LR infusion (D5-LR) 75 mL/hr INTRAVENOUS CONTINUOUSmorphine 4 mg injection 4 mg IV/IM q 4 H PRNketorolac 15 mg injection (TORADOL) 15 mg INTRAVENOUS q 6 Hondansetron 4 mg tab(s) (ZOFRAN) 4 mg ORAL q 6 H PRNOrondansetron (PF) 4 mg injection (ZOFRAN) 4 mg INTRAVENOUS q 6 H PRNlidocaine 10 mg/mL (1 %) 1-2 mg injection (XYLOCAINE) 0.1-0.2 mLINTRADERMAL PRNlactated ringers infusion 5-30 mL/hr INTRAVENOUS CONTINUOUSertapenem 1 g in NaCl 0.9% 100 mL MB+ (INVanz) 1 g INTRAVENOUS q 24 Hpantoprazole 40 mg injection (PROTONIX) 40 mg INTRAVENOUS BID AC(0600/1600)albuterol 2.5 mg /3 mL (0.083 %) 2.5 mg (PROVENTIL) 2.5 mg INHALATION q 4H PRNdextran 70-hypromellose 0.1-0.3 % 1 Drop ophthalmic drops (NATURAL BALANCETEARS) 1 Drop BOTH EYES PRNphenol 1 Nineveh (CHLORASEPTIC) 1 Nineveh MUCOUS MEMBRANE (TOPICAL MOUTH ANDTHROAT) q 2 H PRNbenzocaine-menthol 1 Lozenge (CEPACOL) 1 Lozenge MUCOUS MEMBRANE (TOPICALMOUTH AND THROAT) q 2 H PRNondansetron (PF) 4 mg injection (ZOFRAN) 4 mg INTRAVENOUS q 6 H PRN0.9% NaCl 10 mL 10 mL INTRAVENOUS q 12 H0.9% NaCl 20 mL 20 mL INTRAVENOUS PRNiv contrast (radiology procedure) INTRAVENOUS DIRECTED PRNenoxaparin 40 mg injection (LOVENOX) 40 mg SUBCUTANEOUS DAILYOBJECTIVE:ObjectivePHYSI AMBER EXAM:VITAL SIGNSBP 141/65 Pulse 98 Temp (Src) 98.1 (Oral) Resp 18 Ht 5' 9.016"(1.75m) Wt 171 lb 8.3 oz (77.8kg) SpO2 99% BMI 25.32 kg/(m2).Temp (24hrs), Av.7 ?C (98.1 ?F), Min:36.2 ?C (97.2 ?F), Max:37 ?C(98.6 ?F)Date 09/22/17699 - 09/23/1765809/23/17699 - 09/24/17 0659Shift 6530-4496 3371-6654 2069-4535 24 Hour Total 5175-1118 6918-83353645-6309 24 Hour TotalINTAKE TPN/PPN 1976 1976 TPN 1976 1976 Shift Total 1976 1976OUTPUT Urine 2987 269 3204 Void (ml) 100 665 765 Tube Output ([REMOVED] Indwelling Urinary Catheter 09/13/17 1145Foley 16 Fr 09/22/17 1230) 1500 1500 Tubes 350 550 900 Output (GI Feed/Drain 09/16/17 2130 Nasogastric Right Naris) 350 [id number] # of BMs Number of BMs 2 x 2 x Shift Total 1600 1015 550 3165Weight (kg) 77.8 77.8 77.8 77.8 77.8 77.8 77.8 77.8GENERAL: Alert, no distress, cooperativeSKIN: Skin color, texture, turgor normal. No rashes or lesions.LUNGS: Unlabored breathing on O2 Therapy: Room Air on Liters: 3 sating atSpO2: 99 %CARDIAC: rate and rhythm as above,ABDOMEN: Benign, Soft, non-tender, No masses, hepatosplenomegaly and NolymphadenopathyEXTREMITIES: ROM of all joint grossly normal: strength grossly normalbilaterally. No deformities noted.WOUND: No abdominal wound issuesNG with gastric materialDATA:Diagnostic tests reviewed for today's visit:No results for input(s): BODSITE, CTYPE, PH, PCO2, PO2, BE, HCO3, CO2CT,O2HB, COHB, MHGB, TEMP, PHTC, PCO2T, PO2T, O2AD in the last 72 hours.Recent Labs 09/22/1806CREAT 0.54* 0.58* 0.56*BUN 10 13 12NA 140 138 135*K 4.0 4.5 4.1CHLOR 108* 107 105CO2 28 25 26ANION 8 11 8GLUC 124* 141* 115*CA 8.3* 8.2* 8.8P 3.7 3.2 4.1MG 2.1 1.9 2.0WBC 8.86 10.23* 10.02*HB 8.3* 8.2* 9.5*HCT 26.6* 26.3* 29.5*PLT 364 373* 403*ASSESSMENT AND PLAN:Assessment/Plan72 YOM with gastric/duodenal ulcers, GOO, A-fib/RVR. ?s/p EGD and duodenaldilitation. Hpylori negative.??- A-fib mgnt per medicine, currently on cardizem gtt. OK for PO meds fora-fib from surgery standpoint.- protonix- D/C NGT- start CLD/TPNSIGNATURE: Jaren Godfrey MD PATIENT NAME: Cristina JeffreyDATE: September 23, 2017 : 7:17 AM PAGER: [phone] Normal [facility] Phosphorus Bloodon 8 Phosphate 3.7 mg/dL Normal 2.5-4.[address] [facility] Comment on above: Performed By: #### P PHRS ####[facility] [place] [address] ABDOMEN 1 VIEWon 09-22-2017 ABDOMEN 1 VIEW Performed at [facility] APPROVED BY: BART ZEPEDA MD EXAM: ABDOMEN 1 VIEW HISTORY: Enteric tube. COMPARISON: 10/11/2017, 0116 hours FINDINGS: See impression. IMPRESSION: There is a right upper extremity PICC with tip projecting over the expected location of the caudal aspect of the SVC. The tip is difficult to visualize. Enteric tube tip courses through the mediastinum with tip projecting over the left upper quadrant, likely within the proximal stomach. Unable to visualize sidehole. However, advancement is suggested. No confluent airspace disease identified. No large pleural effusion or pneumothorax. Cardiomediastinal contours are within normal limits. Atherosclerotic calcification noted within the aorta. Included bones are unremarkable. Normal [facility] ABDOMEN 1 VIEW Performed at [facility] APPROVED BY: BART ZEPEDA MD EXAM: ABDOMEN 1 VIEW HISTORY: Adjustment of NG tube COMPARISON: 09/19/2017 FINDINGS: See impression IMPRESSION: Enteric tube is not identified with certainty. Recommend repeat chest and/or abdomen radiograph if clinically indicated. Bones and soft tissues otherwise appear generally stable. There is motion degradation. Normal [facility] Basic Panelon 09-22-2017 Creatinine 0.58 mg/dL Low 0.67-1.[address] [facility] Comment on above: Performed By: #### P PHRS ####[place] [address] Anion gap 11 mmol/L Normal 8-[address] [facility] Comment on above: Performed By: #### P PHRS ####[facility] [place] [address] CO2 25 mmol/L Normal 21-[address] [facility] Comment on above: Performed By: #### P PHRS ####[place] [address] Calcium 8.2 mg/dL Low 8.5-10.[address] [facility] Comment on above: Performed By: #### P PHRS ####[place] [address] Glucose mass conc 141 mg/dL High 70-[address] [facility] Comment on above: Performed By: #### P PHRS ####[place] [address] Urea nitrogen 13 mg/dL Normal 7-[address] [facility] Comment on above: Performed By: #### P PHRS ####[place] [address] Chloride 107 mmol/L Normal 98-[address] [facility] Comment on above: Performed By: #### P PHRS ####[place] [address] Potassium molar conc 4.5 mmol/L Normal 3.5-5.1 [facility] Comment on above: Performed By: #### P PHRS ####[place] [address] Sodium 138 mmol/L Normal 136-[address] [facility] Comment on above: Performed By: #### P PHRS ####[place] [address] CASE MANAGEMon 09-22-2017 CASE MANAGEM HNO ID: [id number] thor: Lakia (Rn) Mindy, KELLYervice: Care ManagementAuthor Type: Registered NurseType: Care Mgt Progress NoteFiled: 09/22/2017 4:42 PMNote Text:CARE MANAGEMENT PROGRESS NOTESERVICE DATE: 09/22/2017SERVICE TIME: 4:10 PM LOS: 10 daysNeeds Prior to Discharge: [facility] not [facility] at this time based on his current acuity. Theymay reconsider once NG tube is out, TPN is discontinued and pt istolerating PO. I discussed this with pt. He does not want to make anotherchoice. States he will go home and niece will check in on him, but shewill not be there all the time. I will have C follow for possible homecare needs. CM to follow for clinical progression. Once NG is out andtolerating PO we can have [facility] review to see if they can accept, as ptwill not go any where elseSIGNATURE: Lakia Guillen RN PATIENT NAME: Cristina JeffreyDATE: September 22, 2017 : 4:10 PM PAGER/CONTACT #: [phone] Normal [facility] Hemogram/Diffon 09-22-2017 Abs Immature Grans 0.13 thou/cmm High 0.00-0.05 [facility] Comment on above: Performed By: #### P PHRS ####[place] [address] Abs. Baso 0.03 thou/cmm Normal 0.01-0.[address] [facility] Comment on above: Performed By: #### P PHRS ####[place] [address] Abs. Sheridan 1.28 thou/cmm High 0.30-0.[address] [facility] Comment on above: Performed By: #### P PHRS ####[place] [address] Abs. Neut (ANC) 6.77 thou/cmm High 1.78-5.[address] [facility] Comment on above: Performed By: #### P PHRS ####[place] [address] Basophils/100 WBC Auto (Bld) 0.3 % Normal [facility] Comment on above: Performed By: #### P PHRS ####[place] [address] Eosinophils 0.32 thou/cmm Normal 0.04-0.[address] [facility] Comment on above: Performed By: #### P PHRS ####[place] [address] Eosinophils/100 leukocytes 3.1 % Normal [facility] Comment on above: Performed By: #### P PHRS ####[place] [address] Erythrocyte distribution width Auto Ratio (RBC) 15.9 % High 11.6-14.[address] [facility] Comment on above: Performed By: #### P PHRS ####[place] [address] Erythrocytes (RBC) 2.98 mil/cmm Low 4.63-6.08 [facility] Comment on above: Performed By: #### P PHRS ####[place] [address] Hematocrit (HCT) 26.3 % Low 40.1-51.[address] [facility] Comment on above: Performed By: #### P PHRS ####[place] [address] Hemoglobin mass conc (Bld) 8.2 g/dL Low 13.7-17.[address] [facility] Comment on above: Performed By: #### P PHRS ####[place] [address] Immature Grans 1.30 % Normal [facility] Comment on above: Performed By: #### P PHRS ####[place] [address] Lymphocytes 1.70 thou/cmm Normal 0.84-2.[address] [facility] Comment on above: Performed By: #### P PHRS ####[place] [address] Lymphocytes/100 leukocytes 16.6 % Normal [facility] Comment on above: Performed By: #### P PHRS ####[place] [address] MCH 27.5 pg Normal 25.7-32.[address] [facility] Comment on above: Performed By: #### P PHRS ####[place] [address] MCHC mass conc (RBC) 31.2 % Low 32.3-36.5 [facility] Comment on above: Performed By: #### P PHRS ####[place] [address] MCV 88.3 fL Normal 83.2-95.[address] [facility] Comment on above: Performed By: #### P PHRS ####[place] [address] Monocytes/100 leukocytes 12.5 % Normal [facility] Comment on above: Performed By: #### P PHRS ####[place] [address] Platelet mean volume (PMV) 9.4 fL Normal 8.7-12.[address] [facility] Comment on above: Performed By: #### P PHRS ####[place] [address] Platelets 373 thou/cmm High 141-[address] [facility] Comment on above: Performed By: #### P PHRS ####[place] [address] RDW SD 50.4 fl High 36.1-45.[address] [facility] Comment on above: Performed By: #### P PHRS ####[place] [address] Seg Neutrophil 66.2 % Normal [facility] Comment on above: Performed By: #### P PHRS ####[place] [address] WBC (Leukocytes) 10.23 thou/cmm High 4.23-9.07 [facility] Comment on above: Performed By: #### P PHRS ####[place] [address] MDRD GFRon 09-22-2017 eGFR (non-black) mL/min/{1.73_m2} Normal >60mL/m in/ 1.73m2 [facility] Comment on above: Result Comment: If t he patient is , multiply the result by 1.210. Performed By: #### P PHRS ####[facility] [place], [place] [address] Magnesium Bloodon 09-22-2017 Magnesium 1.9 mg/dL Normal 1.6-2.[address] [facility] Comment on above: Performed By: #### P PHRS ####[facility] [place], [place] [address] NURSING PROGon 09-22-2017 Protein mass conc HNO ID: [id number] thor: KELLY Obrien Rnervice: NursingAuthor Type: Registered NurseType: Nursing Progress NoteFiled: 09/22/2017 6:32 AMNote Text:Xray result suggests advancement. Notified Dr. Sukhwinder Mccloud with surgery. ordered RN to advance NG tube 7 cm. stated no repeat xraynecessary. Normal [facility] Protein mass conc HNO ID: [id number] thor: KELLY Obrien Rnervice: NursingAuthor Type: Registered NurseType: Nursing Progress NoteFiled: 09/22/2017 5:32 AMNote Text:Radiology came to do xray. Tech stated that she could tell NG tube was notpast diaphragm. Paged Dr. Sukhwinder Mccloud. Dr came to look at patient. OrderedRN to advance NG tube to 60, then redo xray. NG tube advanced to 60; xraycompleted. Awaiting results and Dr's orders. Normal [facility] Protein mass conc HNO ID: [id number] thor: KELLY Obrien Rnervice: NursingAuthor Type: Registered NurseType: Nursing Progress NoteFiled: 09/22/2017 4:52 AMNote Text:Inserted NG tube to 50, per orders from Dr. Mccloud with surgery. AwaitingKUB to confirm placement. Normal [facility] Protein mass conc HNO ID: [id number] Author: Michelle Sampson RN Service: Nursing Author Type: Registered Nurse Type: Nursing Progress Note Filed: 09/21/2017 10:45 PM Note Text: Pt 24-hr TPN started at 2230 after pt arrived from PACU Normal [facility] Protein mass conc HNO ID: [id number] thor: Michelle (Rn) KELLY Sampsonervice: NursingAuthor Type: Registered NurseType: Nursing Progress NoteFiled: 09/21/2017 10:15 PMNote Text:RN told in report pt's Cardizem running at 5 mg/hr. Pt arrived to floorwith Cardizem running at 10 mg/hr. Called Esdras RN in PACU to clarify. RNstated gave orders for him to increase Cardizem to 10 mg/hr. Esdras RNstated he would chart the increase in MAR. Normal [facility] PROGRESSon 09-22-2017 Protein mass conc HNO ID: [id number] thor: Yina Sawyer PatelService: Hospital MedicineAuthor Type: PhysicianType: Progress NotesFiled: 09/22/2017 5:14 PMNote Text:INTERNAL MEDICINE PROGRESS NOTE ADMIT DATE: 09/12/2017 1:30 PMSERVICE DATE: 09/22/2017INTERVAL HISTORY:F/u : a fib, pancreatic mass, gastric outlet obstructionS: Pt has no complaints. Anxious to get NG out and be able to eat.MEDICATIONS:Current hospital medications:Parenteral Nutrition - Adult INTRAVENOUS ONCE TPN (1800 START)pill manager critical care unit (patient-specific) 1 Each Miscell. (Med.Supl.;Non-Drugs) PRNdiltiazem 30 mg tab(s) (CARDIZEM) 30 mg NASOGASTRIC q 6 H[START ON 09/23/2017] digoxin 0.25 mg tab(s) (LANOXIN) 0.25 mg NASOGASTRICDAILYmetoprolol tartrate (short acting) 25 mg tab(s) (LOPRESSOR) 25 mgNASOGASTRIC q 8 Hacetaminophen 650 mg tab(s) (TYLENOL) 650 mg ORAL q 6 HParenteral Nutrition - Adult INTRAVENOUS ONCE TPN (1800 START)dextrose 5% in LR infusion (D5-LR) 75 mL/hr INTRAVENOUS CONTINUOUSmorphine 4 mg injection 4 mg IV/IM q 4 H PRNketorolac 15 mg injection (TORADOL) 15 mg INTRAVENOUS q 6 Hondansetron 4 mg tab(s) (ZOFRAN) 4 mg ORAL q 6 H PRNondansetron (PF) 4 mg injection (ZOFRAN) 4 mg INTRAVENOUS q 6 H PRNlidocaine 10 mg/mL (1 %) 1-2 mg injection (XYLOCAINE) 0.1-0.2 mLINTRADERMAL PRNlactated ringers infusion 5-30 mL/hr INTRAVENOUS CONTINUOUSertapenem 1 g in NaCl 0.9% 100 mL MB+ (INVanz) 1 g INTRAVENOUS q 24 Hpantoprazole 40 mg injection (PROTONIX) 40 mg INTRAVENOUS BID AC(0600/1600)albuterol 2.5 mg /3 mL (0.083 %) 2.5 mg (PROVENTIL) 2.5 mg INHALATION q 4H PRNdextran 70-hypromellose 0.1-0.3 % 1 Drop ophthalmic drops (NATURAL BALANCETEARS) 1 Drop BOTH EYES PRNphenol 1 Nineveh (CHLORASEPTIC) 1 Nineveh MUCOUS MEMBRANE (TOPICAL MOUTH ANDTHROAT) q 2 H PRNbenzocaine-menthol 1 Lozenge (CEPACOL) 1 Lozenge MUCOUS MEMBRANE (TOPICALMOUTH AND THROAT) q 2 H PRNondansetron (PF) 4 mg injection (ZOFRAN) 4 mg INTRAVENOUS q 6 H PRN0.9% NaCl 10 mL 10 mL INTRAVENOUS q 12 H0.9% NaCl 20 mL 20 mL INTRAVENOUS PRNiv contrast (radiology procedure) INTRAVENOUS DIRECTED PRNenoxaparin 40 mg injection (LOVENOX) 40 mg SUBCUTANEOUS DAILYPHYSICAL EXAM:VITAL SIGNS 09/22/1806BP: (!) 102/49 107/57 (!) 96/47Pulse: 80 82 86Resp: 18Temp: 36.2 ?C (97.2 ?F) 37 ?C (98.6 ?F)TempSrc: Oral OralSpO2: 100% 98%Weight: 77.8 kg (171 lb 8.3 oz)Height:Temp (24hrs), Av.6 ?C (97.9 ?F), Min:36.4 ?C (97.5 ?F), Max:36.8 ?C(98.2 ?F)Body mass index is 25.32 kg/m?.INTAKE/OUTPUTIntake/Out put Summary (Last 24 hours) at 09/22/17 1711Last data filed at 09/22/17 1409 Gross per 24 hourIntake 2230 mlOutput 2450 mlNet -220 mlPhysical Exam:Gen: Alert and Orientated x 3, No acute distressHEENT: EOMI, PERRLA, anicteric, no pallor, no facial droop, NG tubeCV: S1/S2 irregularrhythm, no murmurs, rubs and gallops, no reproduciblepain, + 2 radial pulses - equalResp: Clear to auscultation bilaterally, no wheezes, rales, rhonchi orcracklesAbd: + Bowel sounds, soft, in dressingExt: no pitting edemaLAB DATA:CBC:Recent Labs 09/22/1803WBC 10.23* 10.02* 10.27* 8.98 9.34* 8.16 7.86 7.72HB 8.2* 9.5* 9.5* 9.1* 9.8* 8.7* 8.4* 8.2*HCT 26.3* 29.5* 29.7* 28.7* 30.2* 26.9* 25.6* 25.6*PLT 373* 403* 445* 428* 435* 346 283 275MCV 88.3 86.5 86.3 88.3 86.8 88.2 86.8 92.4COAG: No results for input(s): APTT, INR in the last 168 hours.BMP:Recent Labs 09/22/1803GLUC 141* 115* 99 115* 129* 119* 135*NA 138 135* 137 137 137 137 140K 4.5 4.1 4.2 4.2 4.5 4.1 3.6CHLOR 107 105 105 106 108* 107 107CO2 25 26 27 26 24 25 29ANION 11 8 9 9 10 9 8BUN 13 12 14 13 11 9 6*CREAT 0.58* 0.56* 0.53* 0.46* 0.45* 0.48* 0.44*CHEM:Recent Labs 09/22/18030CA 8.2* 8.8 8.6 8.7 8.6 8.3* 8.0* --MG 1.9 2.0 2.1 2.1 2.3 2.3 2.1 2.6CXR: no A/PCT A/P:1. ?There are findings of gastric outlet obstruction with a severelydistended and?fluid-filled stomach. ?The duodenum is collapsed with a suggestion ofmild wallthickening in addition to irregular infiltration of the surrounding fatwith a few?mildly enlarged adjacent nodes. ?While this could represent aninflammatory orneoplastic process of the duodenum, all findings are thought to mostlikely besecondary to a pancreatic head mass worrisome for neoplasm.2. ?Cholelithiasis.3. ?Probable hepatic and right renal cysts, although this should beconfirmed byultrasound.CT C/A/P:High-grade gastric outlet obstruction.?Fluid density mass or masses within the head and uncinate of the pancreas.?Differential considerations include pseudocysts, cystic neoplasm andintraductalpapillary mucinous neoplasm. ?Alternatively, findings could potentiallyrepresentdilated pancreatic duct.?Several indeterminate nodular densities in the pancreaticoduodenal regionwithassociated infiltration of fat and periduodenal fluid.?Innumerable pulmonary nodules, predominantly calcified, but alsononcalcifiedscattered throughout both lungs. ?The majority of pulmonary nodulesmeasure lessthan 4 mm in size. ?On the right, there are centrilobular nodules andgroundglassopacity within the medial lower lobe possibly inflammatory or infectious.?Thereis small volume consolidation within the posterior costophrenic angle,possibleatelectasis or pneumonia. ?On the left, there is small volumeconsolidation inprofile with the inferior major fissure at the lung base suggestingatelectasis. ?There is an indeterminate ill-defined subpleural nodule redemonstratedwithin theposterior lower lobe. ?There is small volume consolidation within theposteriorcostophrenic angle, possible atelectasis or pneumonia, with very smallpleuraleffusion.?Contrac [place] gallbladder with multiple radiopaque gallstones. ?There is mildgallbladder wall thickening and infiltration of pericholecystic fat.?Correlateclinically with clinical concern for acute gallstones.?Dilated distal thoracic aortic arch-proximal descending thoracic aortameasuring 4?cm in diameter. ?The descending thoracic aorta mildly tapers in diameterdistally.?Hepatic cysts.?1 cm hypervascular nodule within the medial spleen.?Bilateral renal cortical cystic lesions, the joint too small tocharacterize by CT?criteria.Component Latest Ref Rng AND Units 09/12/2017 09/13/2017Gastrin SEE [id number] 0.0 - 35.0 U/ml 8.1CEA 0.0 - 3.0 ng/mL 1.7Chromogranin A SEE BELOWBiopsy:GASTRIC ANTRUM, BIOPSIES - INTESTINAL METAPLASIA. ?NEGATIVE FORDYSPLASIA OR CARCINOMA. ?CHRONIC AND ACTIVE GASTRITIS. ?NEGATIVE FORHELICOBACTER ORGANISMS. ?H. 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 I reviewed the resident's note. Paul with the resident's assessment and plan with the following revisionsand/or additions: cont NG tube today. Okay for meds via NG tubeSignature: Venus Foster MDDate: 09/22/2017Time: 10:43 AM Elect [facility] Surgery Progress NoteSERVICE DATE: [id number]:No overnight events. Denies n/v/f/c/sob/cp. + Flatus. No BMNPO/TPNOBJECTIVE:Temp (24hrs), Av.4 ?C (97.5 ?F), Min:36 ?C (96.8 ?F), Max:36.6 ?C(97.9 ?F)BP 107/57 Pulse 82 Temp 36.2 ?C (97.2 ?F) (Oral) Resp 18 Ht175.3 cm (5' 9.02") Wt 77.8 kg (171 lb 8.3 oz) SpO2 100% BMI25.32 kg/m?O2 Therapy: Nasal CannulaDate 09/21/17 0700 - 09/22/17 0659 09/22/17 07 - 09/23/17 0659Shift 3054-2637 2353-9108 3057-8869 24 Hour Total 8421-4800 2037-99532165-8092 24 Hour TotalINTAKE IV 2230 2230 LR 200 200 OR Crystalloid intake (mL) 1999 1999 Diltiazem Volume 30 30 TPN/PPN 0 0 TPN 0 0 Shift Total 2230 2230OUTPUT Urine 345 317 9633 1150 OR Urine Output 600 600 Tube Output ( Indwelling Urinary Catheter 09/13/17 1145 Miranda 16Fr) 1150 1150 Tubes 656 214 4602 Output (GI Feed/Drain 09/16/17 2130 Nasogastric Right Naris) 039 [id number] Blood 50 50 Estimated Blood loss 50 50 Shift Total 397 630 9699 1150 1150Weight (kg) 78.9 78.9 78.9 78.9 77.8 77.8 77.8 77.8Current Facility-Administered Medications:pill manager critical care unit (patient-specific) 1 Each Miscell. (Med.Supl.;Non-Drugs) PRNParenteral Nutrition - Adult INTRAVENOUS ONCE TPN (1800 START)dextrose 5% in LR infusion (D5-LR) 75 mL/hr INTRAVENOUS CONTINUOUSmorphine 4 mg injection 4 mg IV/IM q 4 H PRNketorolac 15 mg injection (TORADOL) 15 mg INTRAVENOUS q 6 Hondansetron 4 mg tab(s) (ZOFRAN) 4 mg ORAL q 6 H PRNOrondansetron (PF) 4 mg injection (ZOFRAN) 4 mg INTRAVENOUS q 6 H PRNacetaminophen 1,000 mg iv piggyback (OFIRMEV) 1,000 mg INTRAVENOUS q 6 Hlidocaine 10 mg/mL (1 %) 1-2 mg injection (XYLOCAINE) 0.1-0.2 mLINTRADERMAL PRNlactated ringers infusion 5-30 mL/hr INTRAVENOUS CONTINUOUSertapenem 1 g in NaCl 0.9% 100 mL MB+ (INVanz) 1 g INTRAVENOUS q 24 Hdigoxin 250 mcg injection (LANOXIN) 250 mcg INTRAVENOUS DAILYmetoprolol 2.5 mg injection (LOPRESSOR) 2.5 mg INTRAVENOUS q 6 HRpantoprazole 40 mg injection (PROTONIX) 40 mg INTRAVENOUS BID AC(0600/1600)albuterol 2.5 mg /3 mL (0.083 %) 2.5 mg (PROVENTIL) 2.5 mg INHALATION q 4H PRNdextran 70-hypromellose 0.1-0.3 % 1 Drop ophthalmic drops (NATURAL BALANCETEARS) 1 Drop BOTH EYES PRNphenol 1 Nineveh (CHLORASEPTIC) 1 Nineveh MUCOUS MEMBRANE (TOPICAL MOUTH ANDTHROAT) q 2 H PRNbenzocaine-menthol 1 Lozenge (CEPACOL) 1 Lozenge MUCOUS MEMBRANE (TOPICALMOUTH AND THROAT) q 2 H PRNondansetron (PF) 4 mg injection (ZOFRAN) 4 mg INTRAVENOUS q 6 H PRNdilTIAZem 100 mg in D5W 100 mL ADD-Arvilla (CARDIZEM) 5-20 mg/hrINTRAVENOUS CONTINUOUS0.9% NaCl 10 mL 10 mL INTRAVENOUS q 12 H0.9% NaCl 20 mL 20 mL INTRAVENOUS PRNiv contrast (radiology procedure) INTRAVENOUS DIRECTED PRNenoxaparin 40 mg injection (LOVENOX) 40 mg SUBCUTANEOUS DAILYRecent Labs 0 0NA 138 135*K 4.5 4.1CHLOR 107 105CO2 25 26BUN 13 12CREAT 0.58* 0.56*GLUC 141* 115*ANION 11 8CA 8.2* 8.8MG 1.9 2.0P 3.2 4.1WBC 10.23* 10.02*HB 8.2* 9.5*HCT 26.3* 29.5*PLT 373* 403*Exam:GENERAL: No distress, Alert.NEURO: [id number]: normocephalic, atraumaticLUNGS: Unlabored breathingCARDIAC: Regular rate and rhythm as aboveABDOMEN: soft, min dist, mild diffuse TTP, NGT in place. Incisions c/d/I.EXTREMITIES: JERONIMO, No deformities, No edemaSKIN: Skin color, texture, turgor normal, No rashes or lesionsASSESSMENT AND PLAN:Active Hospital Problems Diagnosis Date Noted- Atrial fibrillation with RVR (HCC) 09/12/2017- Hematemesis 09/12/2017 Overview Note: Added automatically from request for surgery [id number]- Gastric outlet obstruction 09/12/2017 Overview Note: Added automatically from request for surgery [id number]- Severe protein-calorie malnutrition (HCC) 07/03/201772 YOM with gastric/duodenal ulcers, GOO, A-fib/RVR. s/p EGD and duodenaldilitation. Hpylori negative.?- A-fib mgnt per medicine, currently on cardizem gtt. OK for PO meds fora-fib from surgery standpoint.- protonix- NGT to LIWS- NPO/TPN- Discontinue miranda catheter?Ernestina Vega MDGeneral Surgery PGY-4June 2017 10:24 [facility] #: Pager: [phone] General Surgery Service Pager:For questions or concerns Mon-Fri 6a-5p please page [phone].After 5pm and on Weekends and Holidays, please page [phone] if in ICU or [phone] on RNF. Normal [facility] Protein mass conc HNO ID: [id number] thor: Giselle (Business Performance Analyst) CroomService: ElectrophysiologyAuthor Type: Nurse PractitionerType: Progress NotesFiled: 09/22/2017 11:00 AMNote Text:HRA PROGRESS NOTE: EP CARDIOLOGY SERVICESERVICE DATE: 09/22/2017SERVICE TIME: 10:13 AMSubjectiveINTERIM HISTORY: Cristina Jeffrey is sitting in the chair, NAD. He has anNG tube intact. He has abdominal tenderness. Denies CP, SOB, dizziness,syncope.ObjectivePH YSICAL EXAM:Body mass index is 25.32 kg/m?.O2 Therapy: Nasal CannulaNo Data RecordedPatient Vitals for the past 24 hrs: BP Temp Temp src Pulse Resp SpO2 Height Yarbhk79/01/18 1003 107/57 36.2 ?C (97.2 ?F) Oral 82 18 - - -09/22/17 0749 - - - - - - - 77.8 kg (171 lb 8.3 oz)09/22/17 0727 (!) 102/49 - - 80 18 100 % - -09/22/17 0412 105/61 36.6 ?C (97.9 ?F) Oral 90 18 99 % - -09/22/17 0134 (!) 92/48 - - 91 18 - - -09/21/17 2343 97/56 36.5 ?C (97.7 ?F) Oral 101 19 100 % - -09/21/17 2154 113/62 36.6 ?C (97.9 ?F) Axillary 86 18 95 % - -09/21/17 1945 106/61 36.5 ?C (97.7 ?F) Temporal Art 93 16 94 % - -09/21/17 1930 108/66 - - 95 17 94 % - -09/21/17 1915 111/61 - - 93 16 94 % - -09/21/17 1900 128/88 36 ?C (96.8 ?F) Temporal Art 102 21 100 % - -09/21/17 1845 90/68 - - 100 19 100 % - -09/21/17 1837 120/64 36 ?C (96.8 ?F) Temporal Art (!) 144 20 100 % - -09/21/17 1830 120/64 - - - - - - -09/21/17 1322 112/67 36.6 ?C (97.9 ?F) Temporal Art 89 18 96 % 175.3 cm(5' 9.02") 78.9 kg (173 lb 15.1 oz)09/21/17 1130 112/68 36.4 ?C (97.5 ?F) Oral 88 18 94 % - -Pleasant, comfortable, not in acute distress.Awake, alert, oriented times 3.Moves all extremities.SKIN: No rash or lumps.HEENT: Normocephalic, face symmetrical. NG tube intactNECK: Supple, no JVD, no carotid bruit, no thyromegaly.LUNGS: diminished basesCARDIAC: Rhythm: irregularly irregular, Rate: normal, S1: normalintensity, S2: normal intensity, No murmurABDOMEN: hypoactive bowel sounds, laparoscopic incision intactEXTREMITIES: No edema.PULSES: Peripheral pulses present.MEDICATIONS:Current hospital medications:Parenteral Nutrition - Adult INTRAVENOUS ONCE TPN (1800 START)Parenteral Nutrition - Adult INTRAVENOUS ONCE TPN (1800 START)dextrose 5% in LR infusion (D5-LR) 75 mL/hr INTRAVENOUS CONTINUOUSmorphine 4 mg injection 4 mg IV/IM q 4 H PRNketorolac 15 mg injection (TORADOL) 15 mg INTRAVENOUS q 6 Hondansetron 4 mg tab(s) (ZOFRAN) 4 mg ORAL q 6 H PRNondansetron (PF) 4 mg injection (ZOFRAN) 4 mg INTRAVENOUS q 6 H PRNacetaminophen 1,000 mg iv piggyback (OFIRMEV) 1,000 mg INTRAVENOUS q 6 Hlidocaine 10 mg/mL (1 %) 1-2 mg injection (XYLOCAINE) 0.1-0.2 mLINTRADERMAL PRNlactated ringers infusion 5-30 mL/hr INTRAVENOUS CONTINUOUSertapenem 1 g in NaCl 0.9% 100 mL MB+ (INVanz) 1 g INTRAVENOUS q 24 Hdigoxin 250 mcg injection (LANOXIN) 250 mcg INTRAVENOUS DAILYmetoprolol 2.5 mg injection (LOPRESSOR) 2.5 mg INTRAVENOUS q 6 HRpantoprazole 40 mg injection (PROTONIX) 40 mg INTRAVENOUS BID AC(0600/1600)albuterol 2.5 mg /3 mL (0.083 %) 2.5 mg (PROVENTIL) 2.5 mg INHALATION q 4H PRNdextran 70-hypromellose 0.1-0.3 % 1 Drop ophthalmic drops (NATURAL BALANCETEARS) 1 Drop BOTH EYES PRNphenol 1 Nineveh (CHLORASEPTIC) 1 Nineveh MUCOUS MEMBRANE (TOPICAL MOUTH ANDTHROAT) q 2 H PRNbenzocaine-menthol 1 Lozenge (CEPACOL) 1 Lozenge MUCOUS MEMBRANE (TOPICALMOUTH AND THROAT) q 2 H PRNondansetron (PF) 4 mg injection (ZOFRAN) 4 mg INTRAVENOUS q 6 H PRNdilTIAZem 100 mg in D5W 100 mL ADD-Arvilla (CARDIZEM) 5-20 mg/hrINTRAVENOUS CONTINUOUS0.9% NaCl 10 mL 10 mL INTRAVENOUS q 12 H0.9% NaCl 20 mL 20 mL INTRAVENOUS PRNiv contrast (radiology procedure) INTRAVENOUS DIRECTED PRNenoxaparin 40 mg injection (LOVENOX) 40 mg SUBCUTANEOUS DAILYDATA:Diagnostic tests reviewed for today's visit:Most recent labsMost recent telemetryPast 72 Hour Labs:Recent Labs WBC 10.23*RBC 2.98*HB 8.2*HCT 26.3*MCV 88.3MCH 27.5MCHC 31.2*PLT 373*MPV 9.4GLUC 141*BUN 13CREAT 0.58*NA 138K 4.5CHLOR 107CO2 25CA 8.2*MG 1.9Last Lab Drawn:LDL Chol, Mabel 110 02/23/2010ssessment/PlanActiv e Problems: Severe protein-calorie malnutrition (HCC) POA: Yes Assessment AND Plan: he is receiving TPN Atrial fibrillation with RVR (HCC) POA: Yes Assessment AND Plan: the atrial fibrillation is persistent. Heart ratesare currently controlled on IV Diltiazem, Digoxin and Metoprolol. Ideallywould like to change meds to be given through the NG, will check withgeneral surgery first.He is chadsvasc of 2 and unable to receive oral ATC due to GI bleed andulcers.Addendum: PO meds per NG has been approved.EP will follow along peripherally. Gastric outlet obstruction POA: Unknown Assessment AND Plan: secondary to peptic ulcer disease s/pgastrojejunostomy with truncal vagotomy. General surgery is following.Resolved Problems: * No resolved hospital problems. *Medication and Non-Pharmacologic VTE Prophylaxis/AnticoagulantsAnt icoagulant AND Antiplatelet Medications Start Dose Route Frequency Ordered Stop 09/13/17 0900 enoxaparin 40 mg injection (LOVENOX) (Medical At Risk ) 40 mg SUBCUTANEOUS DAILY 09/12/17 8776 --SIGNATURE: Michelle Weeks, MSN, DICE MAKER.OPTOMETRIC ASSISTANT PATIENT NAME: Cristina MooreTE: September 22, 2017 : 10:13 AM PAGER/CONTACT #: [phone] Normal [facility] Phosphorus Bloodon 8 Phosphate 3.2 mg/dL Normal 2.5-4.[address] [facility] Comment on above: Performed By: #### P PHRS ####[place] [address] THERAPY NTon 09-22-2017 THERAPY NT HNO ID: [id number] thor: Ana Cristina (Pt) Nicciervice: Physical TherapyAuthor Type: Physical TherapistType: Therapy (PT/OT/Speech/Resp)Filed: 09/22/2017 11:13 AMNote Text:PHYSICAL THERAPY MISSED VISITSERVICE DATE: 09/22/2017SERVICE TIME: 1112 to 1112ROOM: [id number] Treatment. Patient not seen due to Declined. Patient declinesfurther therapy services while here at the hospital. Will sign off perpatient request. [facility]SIGNATURE: Ana Cristina Walker PT PATIENT NAME: Cristina Camp: September 22, 2017 : 11:12 AM PAGER/CONTACT #: [phone] [facility] ANES Paras 09-21-2017 ANES POST HNO ID: [id number] thor: Flex Tristanervice: AnesthesiologyAuthor Type: PhysicianType: Anesthesia PostOpFiled: 09/21/2017 6:38 PMNote Text:POST ANESTHESIA EVALUATION NOTESERVICE DATE: 09/21/2017SERVICE TIME: 6:38 PMDOB: 1945Vitals: 09/22/1803Temp: 36.8 ?C (98.2 ?F) 36.6 ?C (97.9 ?F) 36.4 ?C (97.5 ?F) 36.6 ?C (97.9?F) 09/22/18032BP: 119/68 112/64 112/68 112/67 09/21/18052Pulse: 95 91 88 89 09/21/18052Resp: 16 16 18 18 09/21/18042SpO2: 95% 94% 94% 96%Validated Vital Signs: YesPOST ANES STATUS: No apparent anesthetic complications. The patient isappropriately hydrated with stable respiratory and cardiovascular status.Patient has safe and adequate airway control. The patient has appropriatepain relief and no significant post operative nausea or vomiting. Thepatient has achieved baseline mental status.Further assessment by Anesthesia Service: NoneOther Remarks:SIGNATURE: Flex Orr MD PATIENT NAME: Cristina JeffreyDATE: September 21, 2017 : 6:38 PM PAGER/CONTACT #: [facility] ANES PREOPon 09-21-2017 ANES PREOP HNO ID: [id number] thor: Ivan ColegeService: AnesthesiologyAuthor Type: PhysicianType: Anesthesia PreOpFiled: 09/21/2017 1:36 PMNote Text: ANESTHESIOLOGY DAY OF SURGERY NOTESERVICE DATE: 09/21/2017SERVICE TIME: 1:32 PMDOB: 1945Procedure(s) (LRB):LAPAROSCOPY DIAGNOSTIC (N/A)GASTRECTOMY DISTAL PARTIAL, W/ GASTRODUODENOSTOMY (N/A)Surgeon(s):Venus AliEstimated body mass index is 25.68 kg/m? as calculated from the following: Height as of this encounter: 175.3 cm (5' 9.02"). Weight as of this encounter: 78.9 kg (173 lb 15.1 oz).Most recent hematocrit and potassium results:Hematocrit 29.5 09/21/2017Potassium 4.1 09/21/2017ANES DOS/PREOP NOTE:Vitals: 604 630 130 322BP: 112/68 112/67Pulse: 91 88 89Resp: 16 18 18Temp: 36.4 ?C (97.5 ?F) 36.6 ?C (97.9 ?F)TempSrc: Oral Temporal ArterySpO2: 94% 96%Weight: 78.9 kg (174 lb) 78.9 kg (173 lb 15.1 oz)Height: 175.3 cm (5' 9.02")ACTIVE PROBLEM LISTShock (Hcc)Copd (Chronic Obstructive Pulmonary Disease) (Hcc)HypertensionHyperlipidem iaGI BleedingAcute Respiratory Failure With Hypoxia and Hypercapnia (Hcc)Acute Blood Loss AnemiaHemorrhagic Shock (Hcc)HypophosphatemiaAtrial Fibrillation With Rapid Ventricular Response (Hcc)Severe Protein-Calorie Malnutrition (Hcc)Atrial Fibrillation With Rvr (Hcc)HematemesisGastric Outlet ObstructionPAST MEDICAL HISTORYDiagnosis Date- Afib (HCC)- CHF (congestive heart failure) (HCC)- COPD (chronic obstructive pulmonary disease) (HCC)- HypertensionPAST SURGICAL HISTORYProcedure Laterality Date- EGD 06/21/2017 Multiple antral ulcers with 1 large ulcer with a visible vessel at itsbase as the source of bleeding. A large ulcer at the pre-pyloric region- EGD 06/23/2017 NG tube induced mucosal tear at GE junction, without bleeding. Multipleulcers at distal antrum and pyloric channel with significant deformity.Previously Endoclipped and epinephrine injected ulcer is not bleeding andvisible vessel has resolved. Large pyloric channel ulcer with deformityand stenosis with intermittent oozing of blood diffusely without anyvisible vessel. Normal duodenum- TUMOR REMOVAL (SPECIFY LOCATION) HX breast, childhoodHistory reviewed. No pertinent family history.Social History:Social HistorySubstance Use Topics- Smoking status: Never Smoker- Smokeless tobacco: Never Used- Alcohol use No Comment: quit 6 months agoNo current facility-administered medications on file prior to encounter.Current Outpatient Prescriptions on File Prior to Encounter:ergocalciferol, vitamin D2, (VITAMIN D) 50,000 unit capsule Take 50,000Units by mouth as directed. Take 1 capsule once weekly for 8 weeks, thentake 1 capsule once monthly thereafterFirst fill on 08/28/17diltiazem CD (CARDIZEM CD, CARTIA XT) 240 mg 24 hr capsule Take 1 capsuleby mouth once daily.pantoprazole DR (PROTONIX) 40 mg tablet Take 1 tablet by mouth twicedaily.Bismuth Subsalicylate (PEPTO-BISMOL) 262 mg tab Take 1 tablet by mouthtwice daily for 14 days.Vit A,C,W-Koob-Lxbctc (PRESERVISION AREDS) 14,320-226-200 dzhc-gc-taybjzf Take 1 capsule by mouth twice daily.albuterol (PROVENTIL) 2.5 mg /3 mL (0.083 %) nebulizer solution Use 2.5 mgvia nebulizer every 4 hours as needed for Wheezing/Shortness of Breath.pravastatin (PRAVACHOL) 40 mg tablet Take 40 mg by mouth once daily.budesonide-formoterol (SYMBICORT) 160-4.5 mcg/actuation inhaler Inhale 2Puffs as instructed twice daily.furosemide (LASIX) 40 mg tablet Take 40 mg by mouth twice daily.Current Facility-Administered Medications:[MAR Hold due to Transfer] Parenteral Nutrition - Adult INTRAVENOUS ONCETPN (1800 START) H Radha Castle[MAR Hold due to Transfer] Parenteral Nutrition - Adult INTRAVENOUS ONCETPN (1800 START) H Radha Castle Last Rate: 100 mL/hr at 09/20/17 1800[MAR Hold due to Transfer] lidocaine 10 mg/mL (1 %) 1-2 mg injection(XYLOCAINE) 0.1-0.2 mL INTRADERMAL PRN Noaman Ali[MAR Hold due to Transfer] lactated ringers infusion 5-30 mL/hrINTRAVENOUS CONTINUOUS Noaman Ali Stopped at 09/20/17 2330[MAR Hold due to Transfer] ertapenem 1 g in NaCl 0.9% 100 mL MB+ (INVanz)1 g INTRAVENOUS q 24 H Noaman Ali[MAR Hold due to Transfer] digoxin 250 mcg injection (LANOXIN) 250 mcgINTRAVENOUS DAILY Neema Art Vitebskiy 250 mcg at 09/21/17 1152[MAR Hold due to Transfer] metoprolol 2.5 mg injection (LOPRESSOR) 2.5 mgINTRAVENOUS q 6 HR Neemaloan Cordova Vitebskiy 2.5 mg at 09/21/17 1152[MAR Hold due to Transfer] pantoprazole 40 mg injection (PROTONIX) 40 mgINTRAVENOUS BID AC (06) Silverio Prabhjot Abdallah 40 mg at 09/21/17 0419[MAR Hold due to Transfer] albuterol 2.5 mg /3 mL (0.083 %) 2.5 mg(PROVENTIL) 2.5 mg INHALATION q 4 H PRN Ahmad H (Res) Ababneh 2.5 mg at09/21/17 0556[MAR Hold due to Transfer] dextran 70-hypromellose 0.1-0.3 % 1 Dropophthalmic drops (NATURAL BALANCE TEARS) 1 Drop BOTH EYES PRN CHUNG Jensen Drop at 09/16/17 1719[MAR Hold due to Transfer] phenol 1 Nineveh (CHLORASEPTIC) 1 Nineveh MUCOUSMEMBRANE (TOPICAL MOUTH AND THROAT) q 2 H PRN Safal N (Res) Avalos 1 Nineveh at09/14/17 1105[MAR Hold due to Transfer] benzocaine-menthol 1 Lozenge (CEPACOL) 1Lozenge MUCOUS MEMBRANE (TOPICAL MOUTH AND THROAT) q 2 H PRN Safal N (Res)Avalos 1 Lozenge at 09/16/17 1642[MAR Hold due to Transfer] ondansetron (PF) 4 mg injection (ZOFRAN) 4 mgINTRAVENOUS q 6 H PRN Annel (Res) [place]ord 4 mg at 09/13/17 0013[MAR Hold due to Transfer] dilTIAZem 100 mg in D5W 100 mL ADD-Arvilla(CARDIZEM) 5-20 mg/hr INTRAVENOUS CONTINUOUS Neemaliseth QuinterohVitebskiy Last Rate: 5 mL/hr at 09/21/17418 5 mg/hr at 09/21/17 0419[MAR Hold due to Transfer] 0.9% NaCl 10 mL 10 mL INTRAVENOUS q 12 H SafalN (Res) Avalos 10 mL at 09/21/17 0900[MAR Hold due to Transfer] 0.9% NaCl 20 mL 20 mL INTRAVENOUS PRN Safal N(Res) Avalos 20 mL at 09/16/17 1521[MAR Hold due to Transfer] iv contrast (radiology procedure) INTRAVENOUSAS DIRECTED PRN Raul (Res) Christian[MAR Hold due to Transfer] enoxaparin 40 mg injection (LOVENOX) 40 mgSUBCUTANEOUS DAILY Annel (Res) [place] 40 mg at 09/20/17 0929Allergies:ALLERGIESAllerg en Reactions- Aspirin Other: See Comments GI bleed; ulcer bleedDOS EXAM: Adequate NPO status: YesAnesthetic risks, benefits, alternatives, personnel and consent discussed:YesPatient agrees to proceed: YesPrevious Anesthesia: No history of adverse event.Airway Assessment: MP 2; Neck ROM: Full ROM without neurologic symptoms;Airway Evaluation: NG in placeSymptoms of Sleep Apnea: Age over 50 (72 year old) and Male genderDentition: EdentulousAdditional Physical Exam:Lungs: Patient health status unchanged since recent history and physical.See history and physical for exam findings.Cardiac: Patient health status unchanged since recent history andphysical. See history and physical for exam findings.Additional Pertinent Findings: N/ABlood Products: Not anticipated for this procedure.Anesthetic Plan: General, Standard ASA MonitorsPain Management Plan: Parenteral or OralASA Class: 3Other Medical Problems: pt with pancreatic mass, large duodenal ulcer,Lung nodules,. Wasting,. A. Fib now with rate controlled, noanticoagulation due to GI bleedRecent echo with EF 55%Chronic Beta Alex medication administered within 24 hours: David have interviewed and examined the patient. I have reviewed the medicalrecord and/or the pre-anesthesia evaluation, pertinent labs, and testresults.Significant changes in the patient's condition since the History andPhysical, not otherwise documented in primary service progress notes: NoThis contains updated information obtained within 48 hours ofSurgery/Procedure.SIGNATURE : Ivan Mack MD PATIENT NAME: Cristina JeffreyDATE: September 21, 2017 : 1:32 PM CSN: [id number] Normal [facility] Basic Panelon 09-21-2017 Creatinine 0.56 mg/dL Low 0.67-1.[address] [facility] Comment on above: Performed By: #### P PHRS ####[place] [address] Anion gap 8 mmol/L Normal 8-[address] [facility] Comment on above: Performed By: #### P PHRS ####[place] [address] CO2 26 mmol/L Normal 21-[address] [facility] Comment on above: Performed By: #### P PHRS ####[place] [address] Glucose mass conc 115 mg/dL High 70-[address] [facility] Comment on above: Performed By: #### P PHRS ####[place] [address] Urea nitrogen 12 mg/dL Normal 7-[address] [facility] Comment on above: Performed By: #### P PHRS ####[address] [address] Calcium 8.8 mg/dL Normal 8.5-10.[address] [facility] Comment on above: Performed By: #### P PHRS ####[place] [address] Chloride 105 mmol/L Normal 98-[address] [facility] Comment on above: Performed By: #### P PHRS ####[place] [address] Potassium molar conc 4.1 mmol/L Normal 3.5-5.1 [facility] Comment on above: Performed By: #### P PHRS ####[place] [address] Sodium 135 mmol/L Low 136-[address] [facility] Comment on above: Performed By: #### P PHRS ####[place] [address] CASE MANAGEMon 09-21-2017 CASE MANAGEM HNO ID: [id number] thor: Lakia (Rn) Mindy RNService: Care ManagementAuthor Type: Registered NurseType: Care Mgt Progress NoteFiled: 09/21/2017 10:51 AMNote Text:CARE MANAGEMENT PROGRESS NOTESERVICE DATE: 09/21/2017SERVICE TIME: 10:49 AM LOS: 9 daysNeeds Prior to Discharge: Accepting Facility;DischargeTransportat ion;OT/PT EvaluationTo O.R. today with Dr. Foster. Acceptance pending from [facility], they willreview closer to [place]. CM follows. Pt will not need precert once acceptedSIGNATURE: Lakia Guillen RN PATIENT NAME: Cristina JeffreyDATE: September 21, 2017 : 10:49 AM PAGER/CONTACT #: [phone] Normal [facility] Glucose Meteron 09-21-2017 Glucose mass conc 140 mg/dL High 70-[address] [facility] Comment on above: Result Comment: RN N OTIFIED Performed By: #### P PHRS ####[place] [address] Hemogram/Diffon 09-21-2017 Abs Immature Grans 0.12 thou/cmm High 0.00-0.05 [facility] Comment on above: Performed By: #### P PHRS ####[place] [address] Abs. Baso 0.05 thou/cmm Normal 0.01-0.[address] [facility] Comment on above: Performed By: #### P PHRS ####[place] [address] Abs. Sheridan 1.29 thou/cmm High 0.30-0.[address] [facility] Comment on above: Performed By: #### P PHRS ####[place] [address] Abs. Neut (ANC) 5.94 thou/cmm High 1.78-5.[address] [facility] Comment on above: Performed By: #### P PHRS ####[place] [address] Basophils/100 WBC Auto (Bld) 0.5 % Normal [facility] Comment on above: Performed By: #### P PHRS ####[address] [address] Eosinophils 0.47 thou/cmm Normal 0.04-0.[address] [facility] Comment on above: Performed By: #### P PHRS ####[place] [address] Eosinophils/100 leukocytes 4.7 % Normal [facility] Comment on above: Performed By: #### P PHRS ####[place] [address] Erythrocyte distribution width Auto Ratio (RBC) 15.9 % High 11.6-14.[address] [facility] Comment on above: Performed By: #### P PHRS ####[place] [address] Erythrocytes (RBC) 3.41 mil/cmm Low 4.63-6.08 [facility] Comment on above: Performed By: #### P PHRS ####[place] [address] Hematocrit (HCT) 29.5 % Low 40.1-51.[address] [facility] Comment on above: Performed By: #### P PHRS ####[place] [address] Hemoglobin mass conc (Bld) 9.5 g/dL Low 13.7-17.[address] [facility] Comment on above: Performed By: #### P PHRS ####[place] [address] Immature Grans 1.20 % Normal [facility] Comment on above: Performed By: #### P PHRS ####[place] [address] Lymphocytes 2.14 thou/cmm Normal 0.84-2.[address] [facility] Comment on above: Performed By: #### P PHRS ####[place] [address] Lymphocytes/100 leukocytes 21.4 % Normal [facility] Comment on above: Performed By: #### P PHRS ####[facility] [place], [place] [address] MCH 27.9 pg Normal 25.7-32.[address] [facility] Comment on above: Performed By: #### P PHRS ####[address] [address] MCHC mass conc (RBC) 32.2 % Low 32.3-36.5 [facility] Comment on above: Performed By: #### P PHRS ####[address] [address] MCV 86.5 fL Normal 83.2-95.[address] [facility] Comment on above: Performed By: #### P PHRS ####[place] [address] Monocytes/100 leukocytes 12.9 % Normal [facility] Comment on above: Performed By: #### P PHRS ####[place] [address] Platelet mean volume (PMV) 9.3 fL Normal 8.7-12.[address] [facility] Comment on above: Performed By: #### P PHRS ####[address] [address] Platelets 403 thou/cmm High 141-[address] [facility] Comment on above: Performed By: #### P PHRS ####[address] [address] RDW SD 50.5 fl High 36.1-45.[address] [facility] Comment on above: Performed By: #### P PHRS ####[address] [address] Seg Neutrophil 59.3 % Normal [facility] Comment on above: Performed By: #### P PHRS ####[address] [address] WBC (Leukocytes) 10.02 thou/cmm High 4.23-9.07 [facility] Comment on above: Performed By: #### P PHRS ####[address] [place], [place] [address] MDRD GFRon 09-21-2017 eGFR (non-black) mL/min/{1.73_m2} Normal >60mL/m in/ 1.73m2 [facility] Comment on above: Result Comment: If t he patient is , multiply the result by 1.210. Performed By: #### P PHRS ####[facility] [place], [place] [address] Magnesium Bloodon 09-21-2017 Magnesium 2.0 mg/dL Normal 1.6-2.[address] [facility] Comment on above: Performed By: #### P PHRS ####[address] [address] NURSING PROGon 09-21-2017 Protein mass conc HNO ID: [id number] thor: Esdras BarnettRn) KELLY Oconnellervice: NursingAuthor Type: Registered NurseType: Nursing Progress NoteFiled: 09/21/2017 9:49 PMNote Text:Dr mack wanted rn to call cardiac physician about pt rate of 115 andcardizem gtt increase and to see if it is ok to transfer pt [facility] spoke to dr hough about pt and he said it would be ok to transferpt, dr mack cleared pt to leave as well Pt off floor at 2145 [facility] Protein mass conc HNO ID: [id number] thor: Cam BarnettRn) KELLY Reeseervice: (none)Author Type: Registered NurseType: Nursing Progress NoteFiled: 09/21/2017 1:30 AMNote Text:Spoke with general surgery resident (pager #[phone]) regarding orders fromDr. Foster for lovenox, Invanz and LR pre-op. Confirmed that these orders arefor 09/21 in pre-op. Normal [facility] NUTRITIONon 09-21-2017 NUTRITION HNO ID: [id number] thor: Trish Gaming) Tom RDService: NST-Nutrition Support TeamAuthor Type: Registered DietitianType: NutritionFiled: 09/21/2017 11:15 AMNote Text: At testation signed by Rimma Castle at 09/21/2017 12:12 [address] the RD and agree with RD's findings and plan as documented inthe RD's note.A/P Gastric outlet obstructionNG still in place and unable to tolerate po diet. Will cont TPN and monitorelectrolytesH Radha Castle MD NUTRI TION SUPPORT TEAMTOPIC: NUTRITION SUPPORT TEAM PROGRESS NOTEPATIENT NAME: Cristina JeffreyN: [id number] OF : 1945DATE: 09/21/2017Nutritional Status: ?SEVERE PROTEIN-CALORIE MALNUTRITION-ACUTE?In the context of Acute Illness or Injury based on:Unintentional Weight Loss: 1-2% over 1 weekInsufficient Energy Intake: less than or equal to 50% for greater than orequal to 5 daysSome mild muscle loss noted?NUTRITION CARE PLAN:?Problem, Etiology and Signs/Symptoms:Alternative nutrition route needed?related to gastric outletobstruction?as evidenced by HPI, need for TPN??New NST consult, as pt transferred out of ICU on TPN 09/15/17?Interval History: LOS d 9, tolerating TPN, remains NPO/NGT, OR plannedfor today, no pain, + bm's yesterdayAssessment: 72 year old male who presented to the ED after being sentfrom endoscopy. ?He was scheduled for EGD and the procedure was notperformed because patient went into a-fib with RVR. ?He is not onanticoagulation. ?He was recently admitted for UGI bleed that requiredbranches of the GDA and gastroepiploic artery embolized on 06/23/2017. ?Hehad 2 EGDs that admission with clips/epi administration. ?He has recurrentgastric ulcers for the majority of his life according to patient.+?5-8 lb weight loss over the past few months. ?He has been vomiting forthe past day.??09/15/17 EGD today ?-->??Per GI-->??1. Dilated stomach with large amount ofresidual food 2. 2 cm x1 cm ulcer in distal ?Antrum 3. A 4 cm cavernousappearaing deep ulcer in duodenal bulb 4. High grade post- bulbarstricture - balloon dilated to 12 mm?09/21 operation today per GS?Tmax: 36.8WBC: 10.02Edema: ?Generalized, non pittingLines: 2L right arm PICC placed 09/13/17-WNL s/p cath kishor 09/18/17Lytes: reviewedUOP: 1.8 ?LNGT: ?900PAB: improved further 20.1WT: ? Trending down, now 174 # ( 78.9 kg) ; 177 # ( 80.6 kg) 09/20/17;179# ?( 81.2 kg) ?09/19/17Recommendations: ?TPN renewed: increased the NACL?TPN script: ?2.4 L /24 hrs providing 2028 calories ( 28 kcals/kg IBW 71kg) and 107 gms pro ( 1.4 gms /kg IBW 71 kg ) per day??Collaborated with Dr Castle and orders written. Jazmín ls:Temperature Max in 24 hours: Temp (24hrs), Av.6 ?C (97.9 ?F), Min:36.4?C (97.5 ?F), Max:36.8 ?C (98.2 ?F)Current Vital Signs: BP 112/64 Pulse 91 Temp 36.6 ?C (97.9 ?F)(Oral) Resp 16 Ht 175.3 cm (5' 9.02") Wt 78.9 kg (174 lb) ApD609% BMI 25.68 kg/m?Current Weight: Weight: 78.9 kg (174 lb)Intake AND Output:Intake/Output Summary (Last 24 hours) at 09/21/17 1110Last data filed at 09/21/17 0344 Gross per 24 hourIntake 820 mlOutput 2700 mlNet -1880 mlLaboratory Data:Recent Labs 09/21/1803NA 135* 137 137K 4.1 4.2 4.2CHLOR 105 105 106CO2 26 27 26CREAT 0.56* 0.53* 0.46*BUN 12 14 13GLUC 115* 99 115*P 4.1 3.7 3.5MG 2.0 2.1 2.1CA 8.8 8.6 8.7Recent Labs PREALB 20.1Lesregulo Santos, CLAYTON, LD, CNSCPager: [phone]: 3 Normal [facility] OPERATIVE NOon 09-21-2017 OPERATIVE NO HNO ID: [id number] thor: Moises Levine (Fel): General SurgeryAuthor Type: FellowType: Operative ReportFiled: 09/21/2017 9:19 PMNote Text: At testation signed by Venus Foster at 09/22/2017 2:57 AMI was present for the critical portions of the procedure and was immediatelyavailable to provide assistance. I agree with the residents operativedictation.Leigh Quinn 2017 2:57 AM OPERA TIVE/PROCEDURE REPORTLOG ID: [id number]/Procedure Date: 09/21/2017Incision/Procedure Start Time: 3:37 PMIncision Close/Procedure End Time: 6:28 PMSurgeon(s)/Proceduralist(s) and Animal Care Provider(s): * Venus Ali - Primary * Moises Reyes (Fel) - JackiePre-Op/Pre-Procedure Diagnosis:Peptic ulcer diseaseGastric outlet obstructionPost-Op/Post-Proce dure Diagnosis:SameProcedure(s):La paroscopic truncal vagotomyLaparoscopic gastrojejunostomy (antecolic, retrogastric)Laparoscopic intraoperative ultrasoundEsophagogastroduode noscopyAnesthesia:GeneralIndi cations:The patient presented with a gastric outlet obstruction from peptic ulcerdisease that was refractory to medical management. It was biopsied and notcancerous, therefore it was recommended he undergo a vagotomy with entericbypass. The risks of the operation were discussed in detail with thepatient, and all of his questions were answered. Informed consent wasobtained.Procedure Details:A huddle was performed when the patient first entered the operating room.The patient was sedated and intubated. The patient was prepped and drapedin the normal sterile fashion and a pre-operative timeout was performed. Asupraumbilical incision was made. Stay sutures were placed in the fasciaand the fascia was incised. A Mehta cannula was inserted. Threeadditional 5mm ports were placed under direct visualization. The lessersac was opened with the bipolar electrocautery device. There was denseinflammation near the pylorus and duodenal bulb and it was determined tonot perform an antrectomy and instead perform a gastrojejunostomy withtruncal vagotomy. The hastrohepatic ligament was opened and the right crusidentified and dissected out. The esophagus was partially dissected outand the left/anterior and right/posterior vagus nerves were dissected outand clipped proximally and distally and a 2cm segment was sent for frozenspecimen that confirmed perineural tissue.An intraoperative ultrasound was performed of the pancreas to confirmthere were no suspicious masses that would be indicative of possiblegastrinomas. There were not.The gastrocolic ligament was then opened further and a loop of jejunumjust distal to the ligament of treitz was brought up without tension tothe stomach in an antecolic, retrogastric fashion. 3-0 silk stay sutureswere placed proximally and distally and an enterotomy and gastrotomy weremade with electrocautery. An endo-ANTONIO stapler was used to make a side toside anastomosis and the opening was closed with 3-0 v-lock suture in arunning fashion. An EGD was then performed that showed the anastomosis reynaldo patent without any bleeding. An NGT was placed. The supraumbilicalportsite was closed with heavy vicryl and the skin incisions were closedwith 4-0 monocril in a running subcuticular fashion and covered with steristrips.Dr. Reyes assisted with the operation because there was no qualifiedresident available.Estimated Blood Loss:0 mlSpecimens:* No specimens in log *Implantable Devices:NoneDrains:NoneCompli cations:NoneThe primary surgeon/proceduralist performed the procedure with assistance.SIGNATURE: Moises Reyes MD PATIENT NAME: Cristina JeffreyDATE: September 21, 2017 : 9:10 PM PAGER/CONTACT #: [phone] [facility] PROGRESSon 09-21-2017 Protein mass conc HNO ID: [id number] thor: Yina Steenervice: [facility] MedicineAuthor Type: PhysicianType: Progress NotesFiled: 09/21/2017 5:24 PMNote Text:Pt in OR all day. Pt begin transfer to Surgery service after OR. Willsee patient tomorrow as consultYina Avalos MD [facility] Protein mass conc HNO ID: [id number] thor: Pierce (Adelina) Lnadonervice: General SurgeryAuthor Type: ResidentType: Progress NotesFiled: 09/21/2017 6:46 AMNote Text: At testation signed by Venus Foster at 09/21/2017 6:24 PMAttending NoteI personally saw and examined the patient. I reviewed the resident's note. Ana Mariaee with the resident's assessment and plan with the following revisionsand/or additions: plan on OR todaySignature: Venus Foster, MDDate: 09/21/2017Time: 6:24 PM Elect verito Surgery Progress NoteSERVICE DATE: 09/21/2017SUBJECTIVE:No overnight events. No further bleeding. Denies n/v/f/c/sob/cp. +BM.Surgery planned for today.Parenteral Nutrition - AdultDIET NPOOBJECTIVE:Temp (24hrs), Av.6 ?C (97.8 ?F), Min:36.4 ?C (97.5 ?F), Max:36.8 ?C(98.2 ?F)BP 112/64 Pulse 91 Temp 36.6 ?C (97.9 ?F) (Oral) Resp 16 Ht175.3 cm (5' 9.02") Wt 78.9 kg (174 lb) SpO2 94% BMI 25.68 kg/m?O2 Therapy: Room AirDate 09/20/17 07 - 09/21/17 0659 09/21/17 07 - 09/22/17 0659Shift 2625-9834 2540-7452 2404-3114 24 Hour Total 0522-6638 8656-71323265-3308 24 Hour TotalINTAKE IV 37 37 Diltiazem Volume 37 37 TPN/PPN 783 783 TPN 783 783 Shift Total 820 820OUTPUT Urine 400 1400 1800 Tube Output ( Indwelling Urinary Catheter 09/13/17 1145 Miranda 16Fr) 400 1400 1800 Tubes 250 650 900 Output (GI Feed/Drain 09/16/17 2130 Nasogastric Right Naris) 250 [id number] # of BMs Number of BMs 3 x 1 x 4 x Shift Total 650 2050 2700Weight (kg) 80.6 80.6 78.9 78.9 78.9 78.9 78.9 78.9Current Facility-Administered Medications:Parenteral Nutrition - Adult INTRAVENOUS ONCE TPN (1800 START)lidocaine 10 mg/mL (1 %) 1-2 mg injection (XYLOCAINE) 0.1-0.2 mLINTRADERMAL PRNlactated ringers infusion 5-30 mL/hr INTRAVENOUS CONTINUOUSenoxaparin 40 mg injection (LOVENOX) 40 mg SUBCUTANEOUS Pre-Op Onceertapenem 1 g in NaCl 0.9% 100 mL MB+ (INVanz) 1 g INTRAVENOUS q 24 Hclarithromycin 500 mg tab(s) (BIAXIN) 500 mg ORAL q 12 Hamoxicillin 875 mg tab(s) (AMOXIL) 875 mg ORAL q 12 Hdigoxin 250 mcg injection (LANOXIN) 250 mcg INTRAVENOUS DAILYmetoprolol 2.5 mg injection (LOPRESSOR) 2.5 mg INTRAVENOUS q 6 HRpantoprazole 40 mg injection (PROTONIX) 40 mg INTRAVENOUS BID AC(0600/1600)albuterol 2.5 mg /3 mL (0.083 %) 2.5 mg (PROVENTIL) 2.5 mg INHALATION q 4H PRNdextran 70-hypromellose 0.1-0.3 % 1 Drop ophthalmic drops (NATURAL BALANCETEARS) 1 Drop BOTH EYES PRNphenol 1 Nineveh (CHLORASEPTIC) 1 Nineveh MUCOUS MEMBRANE (TOPICAL MOUTH ANDTHROAT) q 2 H PRNbenzocaine-menthol 1 Lozenge (CEPACOL) 1 Lozenge MUCOUS MEMBRANE (TOPICALMOUTH AND THROAT) q 2 H PRNondansetron (PF) 4 mg injection (ZOFRAN) 4 mg INTRAVENOUS q 6 H PRNdilTIAZem 100 mg in D5W 100 mL ADD-Arvilla (CARDIZEM) 5-20 mg/hrINTRAVENOUS CONTINUOUS0.9% NaCl 10 mL 10 mL INTRAVENOUS q 12 H0.9% NaCl 20 mL 20 mL INTRAVENOUS PRNiv contrast (radiology procedure) INTRAVENOUS DIRECTED PRNenoxaparin 40 mg injection (LOVENOX) 40 mg SUBCUTANEOUS DAILYRecent Labs 0 400 NA 135* 137 137K 4.1 4.2 4.2CHLOR 105 105 106CO2 26 27 26BUN 12 14 13CREAT 0.56* 0.53* 0.46*GLUC 115* 99 115*ANION 8 9 9CA 8.8 8.6 8.7MG -- 2.1 2.1P -- 3.7 3.5WBC 10.02* 10.27* 8.98HB 9.5* 9.5* 9.1*HCT 29.5* 29.7* 28.7*PLT 403* 445* 428*Exam:GENERAL: No distress, AlertNEURO: [id number]: normocephalic, atraumaticLUNGS: Unlabored breathingCARDIAC: Regular rate and rhythm as aboveABDOMEN: soft, min dist, min TTP epigastrum. NGT in place.EXTREMITIES: JERONIMO, No deformities, No edemaSKIN: Skin color, texture, turgor normal, No rashes or lesionsASSESSMENT AND PLAN:Active Hospital Problems Diagnosis Date Noted- Atrial fibrillation with RVR (HCC) 09/12/2017- Hematemesis 09/12/2017 Overview Note: Added automatically from request for surgery [id number]- Gastric outlet obstruction 09/12/2017 Overview Note: Added automatically from request for surgery [id number]- Severe protein-calorie malnutrition (HCC) 07/03/201772 YOM with gastric/duodenal ulcers, GOO, A-fib/RVR. s/p EGD and duodenaldilitation. Hpylori negative.?- A-fib mgnt per medicine, currently on cardizem gtt- protonix- NGT- NPO/TPN- surgery today w/ Dr. Foster. Consent signed.?Pierce Montiel MDGeneselect medical [facility] Surgery Chief ResidentMay 2017 6:46 [facility] #: [facility] General Surgery Service Pager:For questions or concerns Mon-Fri 6a-5p please page [phone].After 5pm and on Weekends and Holidays, please page [phone] if in ICU or [phone] on RNF. Normal [facility] Phosphorus Bloodon 8 Phosphate 4.1 mg/dL Normal 2.5-4.[address] [facility] Comment on above: Performed By: #### P PHRS ####[place] [address] Prealbuminon 09-21-2017 Prealbumin 20.1 mg/dL Normal 20.0-40.[address] [facility] Comment on above: Performed By: #### P PHRS ####[place] [address] Surgical Tissue Examon 09-21 Surgical Tissue Exam Test performed at [place] [address]NAME: RIGOBERTO JEFFREYGHT [id number] REQUESTING: COLLETTE QUINN TO: YINA GARCIA DIAGNOSIS:A) VAGUS NERVE, RIGHT, EXCISION - UNREMARKABLE PORTION OF PERIPHERALNERVE.B) VAGUS NERVE, LEFT, EXCISION - UNREMARKABLE PORTION OF PERIPHERALNERVE.OPERATIVE PROCEDURE: Gastrectomy distal partial, w/gastroduodenostomyCLINICAL INFORMATION: Gastric outlet obstruction [K31.1]INTRAOPERATIVE CONSULTATION:FROZEN SECTION DIAGNOSIS A: Tissue designated right vagus nerve -Peripheral nerve segment identified. (ATP)FROZEN SECTION DIAGNOSIS B: Specimen designated left vagus nerve -Peripheral nerve segment identified. (ATP)GROSS DESCRIPTION:A) Right vagus nerveReceived fresh is a specimen labeled with the patient's name andconsisting of a 0.5 x 0.2 x 0.1 cm piece of red soft tissue. Thespecimen is totally frozen.B) Left vagus nerveThe specimen is labeled with the patient's name. Received is a 0.8 x0.6 x 0.4 cm piece of red soft tissue that is totally frozen. ATP:lesley PARKER M.D.,PATHOLOGIST(Electronic signature on file)Signed out: 09/25/2017 16:27PRINTED: 09/25/2017 Page 1 of [address] [facility] Comment on above: Performed By: #### P PHRS ####[place] [address] Basic Panelon 09-20-2017 Creatinine 0.53 mg/dL Low 0.67-1.[address] [facility] Comment on above: Performed By: #### P T ####[facility] [place] [address] Urea nitrogen 14 mg/dL Normal 7-[address] [facility] Comment on above: Performed By: #### P T ####[facility] [place] [address] Anion gap 9 mmol/L Normal 8-[address] [facility] Comment on above: Performed By: #### P T ####[facility] [place] [address] Calcium 8.6 mg/dL Normal 8.5-10.[address] [facility] Comment on above: Performed By: #### P T ####[place] [address] CO2 27 mmol/L Normal 21-[address] [facility] Comment on above: Performed By: #### P T ####[place] [address] Glucose mass conc 99 mg/dL Normal 70-[address] [facility] Comment on above: Performed By: #### P T ####[place] [address] Chloride 105 mmol/L Normal 98-[address] [facility] Comment on above: Performed By: #### P T ####[place] [address] Potassium molar conc 4.2 mmol/L Normal 3.5-5.1 [facility] Comment on above: Performed By: #### P T ####[place] [address] Sodium 137 mmol/L Normal 136-[address] [facility] Comment on above: Performed By: #### P T ####[place] [address] CHEST 1 VIEWon 09-20-2017 CHEST 1 VIEW Performed at [facility] APPROVED BY: Evans Henderson MD EXAM TITLE: CHEST 1 VIEW DATE: 09/20/2017 17:54 INDICATION: Shortness of breath and chest pain. History of atrial fibrillation. COMPARISON: 09/19/2017 Portable frontal view of the chest shows overlying alarm security or surveillance monitor leads. An enteric tube is seen passing into the stomach. Right-sided PICC line is noted with tip in the mid superior vena cava. Heart size is normal. The lungs are clear. No infiltrates or effusions. IMPRESSION: Lines and tubes as noted. Lungs are clear. Normal [facility] Fecal Occult Bloodon 018 Fecal Occult Blood Negative Normal NEGATIVE [facility] Comment on above: Performed By: #### P T ####[place] [address] Hemogram/Diffon 09-20-2017 Abs Immature Grans 0.14 thou/cmm High 0.00-0.05 [facility] Comment on above: Performed By: #### P T ####[place] [address] Abs. Baso 0.04 thou/cmm Normal 0.01-0.[address] [facility] Comment on above: Performed By: #### P T ####[place] [address] Abs. Sheridan 1.27 thou/cmm High 0.30-0.[address] [facility] Comment on above: Performed By: #### P T ####[place] [address] Abs. Neut (ANC) 5.94 thou/cmm High 1.78-5.[address] [facility] Comment on above: Performed By: #### P T ####[place] [address] Basophils/100 WBC Auto (Bld) 0.4 % Normal [facility] Comment on above: Performed By: #### P T ####[place] [address] Eosinophils 0.41 thou/cmm Normal 0.04-0.[address] [facility] Comment on above: Performed By: #### P T ####[place] [address] Eosinophils/100 leukocytes 4.0 % Normal [facility] Comment on above: Performed By: #### P T ####[facility] [place] [address] Erythrocyte distribution width Auto Ratio (RBC) 15.9 % High 11.6-14.[address] [facility] Comment on above: Performed By: #### P T ####[place] [address] Erythrocytes (RBC) 3.44 mil/cmm Low 4.63-6.08 [facility] Comment on above: Performed By: #### P T ####[place] [address] Hematocrit (HCT) 29.7 % Low 40.1-51.[address] [facility] Comment on above: Performed By: #### P T ####[place] [address] Hemoglobin mass conc (Bld) 9.5 g/dL Low 13.7-17.[address] [facility] Comment on above: Performed By: #### P T ####[place] [address] Immature Grans 1.40 % Normal [facility] Comment on above: Performed By: #### P T ####[place] [address] Lymphocytes 2.46 thou/cmm Normal 0.84-2.[address] [facility] Comment on above: Performed By: #### P T ####[place] [address] Lymphocytes/100 leukocytes 24.0 % Normal [facility] Comment on above: Performed By: #### P T ####[place] [address] MCH 27.6 pg Normal 25.7-32.[address] [facility] Comment on above: Performed By: #### P T ####[place] [address] MCHC mass conc (RBC) 32.0 % Low 32.3-36.5 [facility] Comment on above: Performed By: #### P T ####[address] [place] [address] MCV 86.3 fL Normal 83.2-95.[address] [facility] Comment on above: Performed By: #### P T ####[facility] [place], [place] [address] Monocytes/100 leukocytes 12.4 % Normal [facility] Comment on above: Performed By: #### P T ####[address] [address] Platelet mean volume (PMV) 9.5 fL Normal 8.7-12.[address] [facility] Comment on above: Performed By: #### P T ####[address] [address] Platelets 445 thou/cmm High 141-[address] [facility] Comment on above: Performed By: #### P T ####[address] [address] RDW SD 50.3 fl High 36.1-45.[address] [facility] Comment on above: Performed By: #### P T ####[address] [address] Seg Neutrophil 57.8 % Normal [facility] Comment on above: Performed By: #### P T ####[address] [address] WBC (Leukocytes) 10.27 thou/cmm High 4.23-9.07 [facility] Comment on above: Performed By: #### P T ####[address] [address] MDRD GFRon 09-20-2017 eGFR (non-black) mL/min/{1.73_m2} Normal >60mL/m in/ 1.73m2 [facility] Comment on above: Result Comment: If t he patient is , multiply the result by 1.210. Performed By: #### P T ####[address] [address] Magnesium Bloodon 09-20-2017 Magnesium 2.1 mg/dL Normal 1.6-2.[address] [facility] Comment on above: Performed By: #### P T ####[facility] [place] [address] NURSING PROGon 09-20-2017 Protein mass conc HNO ID: [id number] thor: Nishi BarnettRn) Rich RNService: NursingAuthor Type: Registered NurseType: Nursing Progress NoteFiled: 09/20/2017 7:53 PMNote Text: Nursing Progress NotePatient Name: Cristina JeffreyMRN: [id number] Location: [place] [address]/[place] [address]*____ Patient complaining of right sided chest pain below right breast thatradiates to scapula. Patient states pain is exacerbated when taking abreath. Describes the pain as aching. Notified Dr. Avalos. Order for STATportable chest x ray placed. Will continue to monitor.This note was completed by: Nishi Villanueva RN [facility] NUTRITIONon 09-20-2017 NUTRITION HNO ID: [id number] thor: Trish Gaming) OUMOU Santoservice: NST-Nutrition Support TeamAuthor Type: Registered DietitianType: NutritionFiled: 09/20/2017 8:56 AMNote Text: At testation signed by Rimma Castle at 09/20/2017 1:39 PMDiscussed with the RD and agree with RD's findings and plan as documented inthe RD's note.A/P Gastric outlet obstructionNG still in place and unable to tolerate po diet. Will cont TPN and monitorelectrolytesSurgery for gastric outlet obstruction tomorrow (?)Rimma Castle MD NUTRI TION SUPPORT TEAMTOPIC: NUTRITION SUPPORT TEAM PROGRESS NOTEPATIENT NAME: Cristina JeffreyMRN: [id number] OF : 1945DATE: 09/20/2017Nutritional Status: ?SEVERE PROTEIN-CALORIE MALNUTRITION-ACUTE?In the context of Acute Illness or Injury based on:Unintentional Weight Loss: 1-2% over 1 weekInsufficient Energy Intake: less than or equal to 50% for greater than orequal to 5 daysSome mild muscle loss noted?NUTRITION CARE PLAN:?Problem, Etiology and Signs/Symptoms:Alternative nutrition route needed?related to gastric outletobstruction?as evidenced by HPI, need for TPN??New NST consult, as pt transferred out of ICU on TPN 09/15/17Interval History: LOS d 8, tolerating TPN, continues NPO/NGT, c/odiscomfort with tube, Elevated HR is ongoing issue, No pain, large BMthis am, noted plans for operation in amAssessment: 72 year old male who presented to the ED after being sentfrom endoscopy. ?He was scheduled for EGD and the procedure was notperformed because patient went into a-fib with RVR. ?He is not onanticoagulation. ?He was recently admitted for UGI bleed that requiredbranches of the GDA and gastroepiploic artery embolized on 06/23/2017. ?Hehad 2 EGDs that admission with clips/epi administration. ?He has recurrentgastric ulcers for the majority of his life according to patient.+?5-8 lb weight loss over the past few months. ?He has been vomiting forthe past day.??09/15/17 EGD today --> Per GI--> ?1. Dilated stomach with large amount ofresidual food 2. 2 cm x1 cm ulcer in distal ?Antrum 3. A 4 cm cavernousappearaing deep ulcer in duodenal bulb 4. 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 as isTPN script: ?2.4 L /24 hrs providing 8 calories ( 28 kcals/kg IBW 71kg) and 107 gms pro ( 1.4 gms /kg IBW 71 kg ) per day??Collaborated with Dr Castle and orders written. Jazmín ls:Temperature Max in 24 hours: Temp (24hrs), Av.6 ?C (97.9 ?F), Min:36.4?C (97.5 ?F), Max:36.8 ?C (98.2 ?F)Current Vital Signs: BP 103/64 Pulse 85 Temp 36.5 ?C (97.7 ?F)(Oral) Resp 18 Ht 175.3 cm (5' 9.02") Wt 80.6 kg (177 lb 11.2 oz) SpO2 99% BMI 26.23 kg/m?Current Weight: Weight: 80.6 kg (177 lb 11.2 oz)Intake AND Output:Intake/Output Summary (Last 24 hours) at 09/20/17 0851Last data filed at 09/20/17 0549 Gross per 24 hourIntake 0 mlOutput 2500 mlNet -2500 mlLaboratory Data:Recent Labs 09/20/1803NA 137 137 137K 4.2 4.2 4.5CHLOR 105 106 108*CO2 27 26 24CREAT 0.53* 0.46* 0.45*BUN 14 13 11GLUC 99 115* 129*P 3.7 3.5 3.2MG 2.1 2.1 2.3CA 8.6 8.7 8.6Recent Labs PREALB 15.5*Trish Santos, RD, LD, CNSCPager: [phone]: 3 Normal [facility] PROGRESSon 09-20-2017 Protein mass conc HNO ID: [id number] thor: Yina Sawyer PatelService: Hospital MedicineAuthor Type: PhysicianType: Progress NotesFiled: 09/20/2017 6:31 PMNote Text:INTERNAL MEDICINE PROGRESS NOTE ADMIT DATE: 09/12/2017 1:30 PMSERVICE DATE: 09/20/2017INTERVAL HISTORY:F/u : a fib, pancreatic mass, gastric outlet obstructionS: Still with large amount of output fromMEDICATIONS:Current hospital medications:Parenteral Nutrition - Adult INTRAVENOUS ONCE TPN (1800 START)Parenteral Nutrition - Adult INTRAVENOUS ONCE TPN (1800 START)clarithromycin 500 mg tab(s) (BIAXIN) 500 mg ORAL q 12 Hamoxicillin 875 mg tab(s) (AMOXIL) 875 mg ORAL q 12 Hdigoxin 250 mcg injection (LANOXIN) 250 mcg INTRAVENOUS DAILYmetoprolol 2.5 mg injection (LOPRESSOR) 2.5 mg INTRAVENOUS q 6 HRpantoprazole 40 mg injection (PROTONIX) 40 mg INTRAVENOUS BID AC(0600/1600)albuterol 2.5 mg /3 mL (0.083 %) 2.5 mg (PROVENTIL) 2.5 mg INHALATION q 4H PRNdextran 70-hypromellose 0.1-0.3 % 1 Drop ophthalmic drops (NATURAL BALANCETEARS) 1 Drop BOTH EYES PRNphenol 1 Nineveh (CHLORASEPTIC) 1 Nineveh MUCOUS MEMBRANE (TOPICAL MOUTH ANDTHROAT) q 2 H PRNbenzocaine-menthol 1 Lozenge (CEPACOL) 1 Lozenge MUCOUS MEMBRANE (TOPICALMOUTH AND THROAT) q 2 H PRNondansetron (PF) 4 mg injection (ZOFRAN) 4 mg INTRAVENOUS q 6 H PRNdilTIAZem 100 mg in D5W 100 mL ADD-Arvilla (CARDIZEM) 5-20 mg/hrINTRAVENOUS CONTINUOUS0.9% NaCl 10 mL 10 mL INTRAVENOUS q 12 H0.9% NaCl 20 mL 20 mL INTRAVENOUS PRNiv contrast (radiology procedure) INTRAVENOUS DIRECTED PRNenoxaparin 40 mg injection (LOVENOX) 40 mg SUBCUTANEOUS DAILYPHYSICAL EXAM:VITAL SIGNS 09/20/1806BP: 103/64 128/75 101/53Pulse: 85 85 93Resp: 18 18 20 20Temp: 36.5 ?C (97.7 ?F) 36.5 ?C (97.7 ?F) 36.4 ?C (97.5 ?F)TempSrc: Oral Oral OralSpO2: 99% 98% 98%Weight:Height:Temp (24hrs), Av.6 ?C (97.9 ?F), Min:36.4 ?C (97.5 ?F), Max:36.8 ?C(98.2 ?F)Body mass index is 26.23 kg/m?.INTAKE/OUTPUTIntake/Out put Summary (Last 24 hours) at 09/20/17 1532Last data filed at 09/20/17 1443 Gross per 24 hourIntake 820 mlOutput 2400 mlNet -1580 mlPhysical Exam:Gen: Alert and Orientated x 3, No acute distressHEENT: EOMI, PERRLA, anicteric, no pallor, no facial droopCV: S1/S2 regular rate and rhythm, no murmurs, rubs and gallops, noreproducible pain, + 2 radial pulses - equalResp: Clear to auscultation bilaterally, no wheezes, rales, rhonchi orcracklesAbd: + Bowel sounds, soft, non-tender, non-distendedExt: no pitting edemaLAB DATA:CBC:Recent Labs 09/20/1803/073812 05/25/050804 05/24/187650UFK 10.27* 8.98 9.34* 8.16 7.86 7.72 9.11* 7.20HB 9.5* 9.1* 9.8* 8.7* 8.4* 8.2* 8.7* 8.2*HCT 29.7* 28.7* 30.2* 26.9* 25.6* 25.6* 26.8* 26.1*PLT 445* 428* 435* 346 283 275 256 210MCV 86.3 88.3 86.8 88.2 86.8 92.4 86.7 89.7COAG: No results for input(s): APTT, INR in the last 168 hours.BMP:Recent Labs 09/20/1803GLUC 99 115* 129* 119* 135* 165* 72NA 137 137 137 137 140 138 137K 4.2 4.2 4.5 4.1 3.6 3.0* 3.5CHLOR 105 106 108* 107 107 104 108*CO2 27 26 24 25 29 28 23ANION 9 9 10 9 8 9 10BUN 14 13 11 9 6* 6* 10CREAT 0.53* 0.46* 0.45* 0.48* 0.44* 0.50* 0.52*CHEM:Recent Labs 09/20/1803CA 8.6 8.7 8.6 8.3* 8.0* -- 7.8* 7.0*MG 2.1 2.1 2.3 2.3 2.1 2.6 2.1 2.1CXR: no A/PCT A/P:1. ?There are findings of gastric outlet obstruction with a severelydistended and?fluid-filled stomach. ?The duodenum is collapsed with a suggestion ofmild wallthickening in addition to irregular infiltration of the surrounding fatwith a few?mildly enlarged adjacent nodes. ?While this could represent aninflammatory orneoplastic process of the duodenum, all findings are thought to mostlikely besecondary to a pancreatic head mass worrisome for neoplasm.2. ?Cholelithiasis.3. ?Probable hepatic and right renal cysts, although this should beconfirmed byultrasound.CT C/A/P:High-grade gastric outlet obstruction.?Fluid density mass or masses within the head and uncinate of the pancreas.?Differential considerations include pseudocysts, cystic neoplasm andintraductalpapillary mucinous neoplasm. ?Alternatively, findings could potentiallyrepresentdilated pancreatic duct.?Several indeterminate nodular densities in the pancreaticoduodenal regionwithassociated infiltration of fat and periduodenal fluid.?Innumerable pulmonary nodules, predominantly calcified, but alsononcalcifiedscattered throughout both lungs. ?The majority of pulmonary nodulesmeasure lessthan 4 mm in size. ?On the right, there are centrilobular nodules andgroundglassopacity within the medial lower lobe possibly inflammatory or infectious.?Thereis small volume consolidation within the posterior costophrenic angle,possibleatelectasis or pneumonia. ?On the left, there is small volumeconsolidation inprofile with the inferior major fissure at the lung base suggestingatelectasis. ?There is an indeterminate ill-defined subpleural nodule redemonstratedwithin theposterior lower lobe. ?There is small volume consolidation within theposteriorcostophrenic angle, possible atelectasis or pneumonia, with very smallpleuraleffusion.?Contrac richmond gallbladder with multiple radiopaque gallstones. ?There is mildgallbladder wall thickening and infiltration of pericholecystic fat.?Correlateclinically with clinical concern for acute gallstones.?Dilated distal thoracic aortic arch-proximal descending thoracic aortameasuring 4?cm in diameter. ?The descending thoracic aorta mildly tapers in diameterdistally.?Hepatic cysts.?1 cm hypervascular nodule within the medial spleen.?Bilateral renal cortical cystic lesions, the joint too small tocharacterize by CT?criteria.Component Latest Ref Rng AND Units 09/12/2017 09/13/2017Gastrin SEE [id number] 0.0 - 35.0 U/ml 8.1CEA 0.0 - 3.0 ng/mL 1.7Chromogranin A SEE BELOWBiopsy:GASTRIC ANTRUM, BIOPSIES - INTESTINAL METAPLASIA. ?NEGATIVE FORDYSPLASIA OR CARCINOMA. ?CHRONIC AND ACTIVE GASTRITIS. ?NEGATIVE FORHELICOBACTER ORGANISMS. ?H. 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 - ORper surgery- spoke with Dr Foster - plan possible resection vs bypass, ok with surgeryto transfer service to surgery as prior after OR# A fib with RVR - rate controlled improved, c/w cardizem gtt until ableto take PO# Severe Protein Calorie Malnutrition - c/w TPN?VTE Prophylaxis: Pneumatic Compression Device, no heparin due to ulcer andsurgeryDisposition: SNFPlan of care discussed with: Patient, Nurse - Vignesh Almodovar Physician [facility] Protein mass conc HNO ID: [id number] thor: Giselle (Luisito) Piyushervice: ElectrophysiologyAuthor Type: Nurse PractitionerType: Progress NotesFiled: 09/20/2017 1:14 PMNote Text:Cristina Jeffrey has persistent atrial fibrillation heart rates on Cardizemdrip, IV digoxin and IV metoprolol are 89-99 bpm. EP is monitoringperipherally.Ellen Weeks, MSN, DICE MAKER.OPTOMETRIC ASSISTANT [facility] Protein mass conc HNO ID: [id number] thor: Pierce (Res) Landonervice: General SurgeryAuthor Type: ResidentType: Progress NotesFiled: 09/20/2017 6:32 AMNote Text: At testation signed by Venus Foster at 09/20/2017 11:48 AMAttending NoteI personally saw and examined the patient. I reviewed the resident's noteAntonina Miller with the resident's assessment and plan with the following revisionsand/or additions: Pt with stricture secondary to duodenal ulcer. He will need operativeresection for this. Plan on OR tomorrow. Will check type and screen today.Will discuss with the family by phone later todaySignature: Venus Foster MDDate: 09/20/2017Time: 11:47 AM Elect verito Surgery Progress NoteSERVICE DATE: 09/20/2017SUBJECTIVE:No overnight events. No further bleeding. Denies n/v/f/c/sob/cp. +BM.DIET NPOParenteral Nutrition - AdultOBJECTIVE:Temp (24hrs), Av.6 ?C (97.9 ?F), Min:36.4 ?C (97.5 ?F), Max:36.8 ?C(98.2 ?F)BP 112/60 Pulse 85 Temp 36.7 ?C (98.1 ?F) (Oral) Resp 18 Ht175.3 cm (5' 9.02") Wt 81.2 kg (179 lb 0.2 oz) SpO2 99% BMI 26.42kg/m?O2 Therapy: Room AirDate 09/19/17 0700 - 09/20/17 0659 09/20/17 07 - 09/21/17 0659Shift 0848-9239 2319-5025 0635-4757 24 Hour Total 8327-5854 [id number] 24 Hour TotalINTAKE Shift TotalOUTPUT Urine 750 1300 2050 Tube Output ( Indwelling Urinary Catheter 09/13/17 1145 Miranda 16Fr) 750 1300 2050 Tubes 300 300 Output (GI Feed/Drain 09/16/17 2130 Nasogastric Right Naris) 300 300 # of BMs Number of BMs 1 x 1 x Shift Total 750 1600 2350Weight (kg) 81.2 81.2 81.2 81.2 81.2 81.2 81.2 81.2Current Facility-Administered Medications:Parenteral Nutrition - Adult INTRAVENOUS ONCE TPN (1800 START)clarithromycin 500 mg tab(s) (BIAXIN) 500 mg ORAL q 12 Hamoxicillin 875 mg tab(s) (AMOXIL) 875 mg ORAL q 12 Hiv contrast (radiology procedure) INTRAVENOUS DIRECTED PRNdigoxin 250 mcg injection (LANOXIN) 250 mcg INTRAVENOUS DAILYmetoprolol 2.5 mg injection (LOPRESSOR) 2.5 mg INTRAVENOUS q 6 HRpantoprazole 40 mg injection (PROTONIX) 40 mg INTRAVENOUS BID AC(0600/1600)albuterol 2.5 mg /3 mL (0.083 %) 2.5 mg (PROVENTIL) 2.5 mg INHALATION q 4H PRNdextran 70-hypromellose 0.1-0.3 % 1 Drop ophthalmic drops (NATURAL BALANCETEARS) 1 Drop BOTH EYES PRNphenol 1 Nineveh (CHLORASEPTIC) 1 Nineveh MUCOUS MEMBRANE (TOPICAL MOUTH ANDTHROAT) q 2 H PRNbenzocaine-menthol 1 Lozenge (CEPACOL) 1 Lozenge MUCOUS MEMBRANE (TOPICALMOUTH AND THROAT) q 2 H PRNondansetron (PF) 4 mg injection (ZOFRAN) 4 mg INTRAVENOUS q 6 H PRNdilTIAZem 100 mg in D5W 100 mL ADD-Arvilla (CARDIZEM) 5-20 mg/hrINTRAVENOUS CONTINUOUS0.9% NaCl 10 mL 10 mL INTRAVENOUS q 12 H0.9% NaCl 20 mL 20 mL INTRAVENOUS PRNiv contrast (radiology procedure) INTRAVENOUS DIRECTED PRNenoxaparin 40 mg injection (LOVENOX) 40 mg SUBCUTANEOUS DAILYRecent Labs 400 430NA 137 137K 4.2 4.2CHLOR 105 106CO2 27 26BUN 14 13CREAT 0.53* 0.46*GLUC 99 115*ANION 9 9CA 8.6 8.7MG 2.1 2.1P 3.7 3.5WBC 10.27* 8.98HB 9.5* 9.1*HCT 29.7* 28.7*PLT 445* 428*Exam:GENERAL: No distress, AlertNEURO: [id number]: normocephalic, atraumaticLUNGS: Unlabored breathingCARDIAC: Regular rate and rhythm as aboveABDOMEN: soft, min dist, min TTP epigastrum. NGT in place.EXTREMITIES: JERONIMO, No deformities, No edemaSKIN: Skin color, texture, turgor normal, No rashes or lesionsASSESSMENT AND PLAN:Active Hospital Problems Diagnosis Date Noted- Atrial fibrillation with RVR (HCC) 09/12/2017- Hematemesis 09/12/2017 Overview Note: Added automatically from request for surgery [id number]- Gastric outlet obstruction 09/12/2017 Overview Note: Added automatically from request for surgery [id number]- Severe protein-calorie malnutrition (HCC) 07/03/201772 YOM with gastric/duodenal ulcers, GOO, A-fib/RVR. s/p EGD and duodenaldilitation. Hpylori negative.?- A-fib mgnt per medicine, currently on cardizem gtt- protonix- NGT- NPO/TPN- plan for surgery tomorrow--Dr. Foster to discuss w/ pt today.?Pierce Montiel MDBryan [facility] Surgery Chief ResidentMay 2017 6:31 [facility] #: [facility] General Surgery Service Pager:For questions or concerns Mon-Fri 6a-5p please page [phone].After 5pm and on Weekends and Holidays, please page [phone] if in ICU or [phone] on RNF. [facility] Phosphorus Bloodon 8 Phosphate 3.7 mg/dL Normal 2.5-4.[address] [facility] Comment on above: Performed By: #### P T ####[place] [address] RBC Productson 09-20-2017 Xmatch Unit 1 see below Normal [facility] Comment on above: Result Comment: Comp atible Performed By: #### P T ####[place] [address] Type and Screenon 09-20-2017 ABO group A Normal [facility] Comment on above: Performed By: #### P T ####[place] [address] Antibody Screen Negative Normal [facility] Comment on above: Performed By: #### P T ####[address] [address] Comment See Below Normal [facility] Comment on above: Result Comment: Scre en &/or Xmatch expires in 3 days at 12 midnight. Redrawpatient at that time. Performed By: #### P T ####[place] [address] RH Type Positive Normal [facility] Comment on above: Performed By: #### P T ####[place] [address] ABDOMEN 1 VIEWon 09-19-2017 ABDOMEN 1 VIEW Performed at [facility] APPROVED BY: Dre Woodward MD EXAM TITLE: PORTABLE KUB OF THE ABDOMEN DATE: 09/19/2017 11:34 COMPARISON: 09/16/2017 CLINICAL INDICATION/HISTORY: Nasogastric tube placement TECHNIQUE: A single portable AP view of the abdomen centered at the level of the diaphragm is presented. FINDINGS: A nasogastric tube extends below the diaphragm. The tip of the catheter overlies the region of the gastric fundus. The sidehole is in the region of the gastroesophageal junction. There is scattered gas within the visualized portions of the colon and small bowel. No free air is identified. IMPRESSION: 1. There is a nasogastric tube which extends below the diaphragm. The tip overlies the gastric fundus. Side holes in the region of the gastroesophageal junction. 2. There is no evidence of free air. Normal [facility] Basic Panelon 09-19-2017 Creatinine 0.46 mg/dL Low 0.67-1.[address] [facility] Comment on above: Performed By: #### P T ####[place] [address] Anion gap 9 mmol/L Normal 8-[address] [facility] Comment on above: Performed By: #### P T ####[place] [address] CO2 26 mmol/L Normal 21-[address] [facility] Comment on above: Performed By: #### P T ####[place] [address] Glucose mass conc 115 mg/dL High 70-[address] [facility] Comment on above: Performed By: #### P T ####[facility] [place] [address] Calcium 8.7 mg/dL Normal 8.5-10.[address] [facility] Comment on above: Performed By: #### P T ####[facility] [place], [place] [address] Urea nitrogen 13 mg/dL Normal 7-[address] [facility] Comment on above: Performed By: #### P T ####[facility] [place] [address] Chloride 106 mmol/L Normal 98-[address] [facility] Comment on above: Performed By: #### P T ####[place] [address] Potassium molar conc 4.2 mmol/L Normal 3.5-5.1 [facility] Comment on above: Performed By: #### P T ####[place] [address] Sodium 137 mmol/L Normal 136-[address] [facility] Comment on above: Performed By: #### P T ####[place] [address] CASE MANAGEMon 09-19-2017 CASE MANAGEM HNO ID: [id number] thor: Lakia (Rn) KELLY Guillenervice: Care ManagementAuthor Type: Registered NurseType: Care Mgt Progress NoteFiled: 09/19/2017 12:25 PMNote Text:CARE MANAGEMENT PROGRESS NOTESERVICE DATE: 09/19/2017SERVICE TIME: 12:24 PM LOS: 7 daysNeeds Prior to Discharge: Accepting Facility;DischargeTransportat ion;OT/PT EvaluationRef[facility] Awaiting acveptance. for theadmissions coordinator to inquire. Await call backSIGNATURE: Lakia Guillen RN PATIENT NAME: Cristina JeffreyDATE: September 19, 2017 : 12:24 PM PAGER/CONTACT #: [phone] [facility] Hemogram/Diffon 09-19-2017 Abs Immature Grans 0.13 thou/cmm High 0.00-0.05 [facility] Comment on above: Performed By: #### P T ####[facility] [place] [address] Abs. Baso 0.02 thou/cmm Normal 0.01-0.[address] [facility] Comment on above: Performed By: #### P T ####[place] [address] Abs. Sheridan 1.01 thou/cmm High 0.30-0.[address] [facility] Comment on above: Performed By: #### P T ####[place] [address] Abs. Neut (ANC) 4.83 thou/cmm Normal 1.78-5.[address] [facility] Comment on above: Performed By: #### P T ####[place] [address] Basophils/100 WBC Auto (Bld) 0.2 % Normal [facility] Comment on above: Performed By: #### P T ####[place] [address] Eosinophils 0.47 thou/cmm Normal 0.04-0.[address] [facility] Comment on above: Performed By: #### P T ####[place] [address] Eosinophils/100 leukocytes 5.2 % Normal [facility] Comment on above: Performed By: #### P T ####[place] [address] Erythrocyte distribution width Auto Ratio (RBC) 15.9 % High 11.6-14.[address] [facility] Comment on above: Performed By: #### P T ####[place] [address] Erythrocytes (RBC) 3.25 mil/cmm Low 4.63-6.08 [facility] Comment on above: Performed By: #### P T ####[place] [address] Hematocrit (HCT) 28.7 % Low 40.1-51.[address] [facility] Comment on above: Performed By: #### P T ####[facility] [place] [address] Hemoglobin mass conc (Bld) 9.1 g/dL Low 13.7-17.[address] [facility] Comment on above: Performed By: #### P T ####[place] [address] Immature Grans 1.40 % Normal [facility] Comment on above: Performed By: #### P T ####[place] [address] Lymphocytes 2.53 thou/cmm Normal 0.84-2.[address] [facility] Comment on above: Performed By: #### P T ####[place] [address] Lymphocytes/100 leukocytes 28.2 % Normal [facility] Comment on above: Performed By: #### P T ####[place] [address] MCH 28.0 pg Normal 25.7-32.[address] [facility] Comment on above: Performed By: #### P T ####[place] [address] MCHC mass conc (RBC) 31.7 % Low 32.3-36.5 [facility] Comment on above: Performed By: #### P T ####[place] [address] MCV 88.3 fL Normal 83.2-95.[address] [facility] Comment on above: Performed By: #### P T ####[place] [address] Monocytes/100 leukocytes 11.2 % Normal [facility] Comment on above: Performed By: #### P T ####[place] [address] Platelet mean volume (PMV) 9.0 fL Normal 8.7-12.[address] [facility] Comment on above: Performed By: #### P T ####[place] [address] Platelets 428 thou/cmm High 141-[address] [facility] Comment on above: Performed By: #### P T ####[facility] [place], [place] [address] RDW SD 51.4 fl High 36.1-45.[address] [facility] Comment on above: Performed By: #### P T ####[facility] [place], [place] [address] Seg Neutrophil 53.8 % Normal [facility] Comment on above: Performed By: #### P T ####[facility] [place], [place] [address] WBC (Leukocytes) 8.98 thou/cmm Normal 4.23-9.[address] [facility] Comment on above: Performed By: #### P T ####[address] [address] MDRD GFRon 09-19-2017 eGFR (non-black) mL/min/{1.73_m2} Normal >60mL/m in/ 1.73m2 [facility] Comment on above: Result Comment: If t he patient is , multiply the result by 1.210. Performed By: #### P T ####[address] [address] MRI ABDOMEN W/WO CONTRASTon 09-19-2017 MRI ABDOMEN W/WO CONTRAST Performed at [facility] APPROVED BY: Bertin Osorio MD TITLE: MRCP OF THE ABDOMEN WITH IV CONTRAST DATE: 09/19/2017 18:30 COMPARISON: CT abdomen and pelvis 09/13/2017 INDICATION: Pancreatic cyst, gastric outlet obstruction TECHNIQUE: Multiplanar multisequence MRI imaging of the abdomen was performed both without and with intravenous contrast. This study was protocoled as a MRCP study for evaluation of the biliary tree. 16 mL of IV contrast was administered. FINDINGS: Limitations: There is extensive motion on this study significantly limiting evaluation. Liver: No evidence of fatty liver infiltration. There are 2 cysts in the left lobe of the liver measuring 2.8 cm x 2.7 cm and 2.6 cm x 2.6 cm. Gallbladder and biliary tree: There are multiple gallstones within the gallbladder. No intra or extrahepatic biliary dilatation. Evaluation for choledocholithiasis is limited due to motion artifact. Adrenal glands: Unremarkable Spleen: The hypervascular lesion within the spleen described on the previous CT is poorly evaluated due to motion artifact. Pancreas: There are 2 cystic lesions in the head of the pancreas measuring 2.1 cm x 1.6 cm and 1.0 cm x 0.9 cm. These are poorly characterized due to extensive motion artifact. The pancreas is poorly evaluated to motion. Kidneys: There is a 4.3 cm cyst in the inferior pole of the right kidney. There are additional subcentimeter cysts in the right kidney. No hydronephrosis. Aorta and vasculature: Abdominal aorta is normal in caliber. Lymph nodes: No enlarged abdominal lymph nodes are identified. Other findings: Small amount of edema adjacent to the duodenum. IMPRESSION: Extremely limited exam secondary to extensive motion artifact on all sequences. There are 2 cystic-appearing lesions in the head of the pancreas poorly characterized due to motion artifact. Small amount of edema adjacent to the second and third portions of the duodenum. Probable hepatic and renal cysts not well characterized on this study. Cholelithiasis. Normal [facility] Magnesium Bloodon 09-19-2017 Magnesium 2.1 mg/dL Normal 1.6-2.[address] [facility] Comment on above: Performed By: #### P T ####[place] [address] NURSING PROGon 09-19-2017 Protein mass conc HNO ID: [id number] thor: Afshin (Rn) Jey, RNService: (none)Author Type: Registered NurseType: Nursing Progress NoteFiled: 09/19/2017 8:41 PMNote Text: Nursing Progress NotePatient Name: Cristina JeffreyMRN: [id number] Location: [place] [address] [address]*____ Spoke to Dr. York about pt.'s heart rate. Ordered to give Lopressorearly. Will continue to monitor.This note was completed by: Afshin Khanna RN [facility] Protein mass conc HNO ID: [id number] thor: Nishi Villanueva, RNService: NursingAuthor Type: Registered NurseType: Nursing Progress NoteFiled: 09/19/2017 2:57 PMNote Text: Nursing Progress NotePatient Name: Cristina JeffreyMRN: [id number] Location: [place] [address] [address]*____ Patient complaining of discomfort since NG tube advanced. Discussedconcerns with Dr. Reyes and he ordered me to advance NG tube to 55cm.This note was completed by: Nishi Villanueva RN [facility] Protein mass conc HNO ID: [id number] thor: Nishi Villanueva, RNService: NursingAuthor Type: Registered NurseType: Nursing Progress NoteFiled: 09/19/2017 2:48 PMNote Text: Nursing Progress NotePatient Name: Cristina JeffreyMRN: [id number] Location: [place] [address]*____ Notified Dr. Avalos of KUB results. Per Dr. Avalos, advance NG tube onecentimeter. NG tube advanced and is now at 45cm at the right nareThis note was completed by: Nishi Villanueva RN [facility] Protein mass conc HNO ID: [id number] thor: Nishi Villanueva, RNService: NursingAuthor Type: Registered NurseType: Nursing Progress NoteFiled: 09/19/2017 2:46 PMNote Text: Nursing Progress NotePatient Name: Cristina JeffreyMRN: [id number] Location: [id number]/[facility]-[facility]*____ Event(s) / Intervention Note:The patient was observed having the following problems: dislodged NG tube.The time of the event occurred at: 10:45am.The following intervention(s) were initiated: NG tube advanced. notified.After the initiated interventions, the following observation(s) were made:STAT KUB ordered.This note was completed by: Nishi Villanueva RN [facility] NUTRITIONon 09-19-2017 NUTRITION HNO ID: [id number] thor: OUMOU Post Rdervice: NST-Nutrition Support TeamAuthor Type: Registered DietitianType: NutritionFiled: 09/19/2017 10:41 AMNote Text: At testation signed by Rimma Catsle at 09/19/2017 11:45 AMDiscussed with the RD and agree with RD's findings and plan as documented inthe RD's note.A/P Gastric outlet obstructionNG still in place and unable to tolerate po diet. Will cont TPN and monitorelectrolytesMay end up need surgery for gastric outlet obstructionIt seems like this is a benign ulcer related problem, but hard to fully provethis- ab withChromogranin A level 500- ? nonvisualized gastrinomaH Radha Castle MD NUTRI TION SUPPORT TEAMTOPIC: NUTRITION SUPPORT TEAM PROGRESS NOTEPATIENT NAME: Cristina JeffreyMRN: [id number] OF : 1945DATE: 09/19/2017Nutritional Status: SEVERE PROTEIN-CALORIE MALNUTRITION-ACUTE?In the context of Acute Illness or Injury based on:Unintentional Weight Loss: 1-2% over 1 weekInsufficient Energy Intake: less than or equal to 50% for greater than orequal to 5 daysSome mild muscle loss noted?NUTRITION CARE PLAN:?Problem, Etiology and Signs/Symptoms:Alternative nutrition route needed?related to gastric outletobstruction?as evidenced by HPI, need for TPN??New NST consult, as pt transferred out of ICU on TPN 09/15/17Interval History: LOS d 7, tolerating TPN, remains NPO/NGT, s/p EGD09/15, persistent elevated heart rate, No BM, no painAssessment: 72 year old male who presented to the ED after being sentfrom endoscopy. ?He was scheduled for EGD and the procedure was notperformed because patient went into a-fib with RVR. ?He is not onanticoagulation. ?He was recently admitted for UGI bleed that requiredbranches of the GDA and gastroepiploic artery embolized on 06/23/2017. ?Hehad 2 EGDs that admission with clips/epi administration. ?He has recurrentgastric ulcers for the majority of his life according to patient.+ 5-8 lb weight loss over the past few months. ?He has been vomiting forthe past day.?09/15/17 EGD today --> Per GI--> 1. Dilated stomach with large amount ofresidual food 2. 2 cm x1 cm ulcer in distal Antrum 3. A 4 cm cavernousappearaing deep ulcer in duodenal bulb 4. High grade post- bulbarstricture - balloon dilated to 12 mmTmax: 36.8WBC: 8.98Edema: Generalized, non pittingLines: 2L right arm PICC placed 09/13/17-WNL s/ cath kishor 09/18/17Lytes: reviewedUOP: 2.1 LNGT: unknownPAB: improved to 15.5WT: 179 ( 81.2 kg) 09/19/17Recommendations: TPN renewed: as is?TPN script: 2.4 L /24 hrs providing 2027 calories ( 28 kcals/kg IBW 71kg) and 107 gms pro ( 1.4 gms /kg IBW 71 kg ) per day??Collaborated with Dr Castle and orders written. Jazmín ls:Temperature Max in 24 hours: Temp (24hrs), Av.6 ?C (97.9 ?F), Min:36.4?C (97.5 ?F), Max:36.8 ?C (98.2 ?F)Current Vital Signs: BP 106/85 Pulse 85 Temp 36.4 ?C (97.5 ?F)(Oral) Resp 20 Ht 175.3 cm (5' 9.02") Wt 81.2 kg (179 lb 0.2 oz) SpO2 96% BMI 26.42 kg/m?Current Weight: Weight: 81.2 kg (179 lb 0.2 oz)Intake AND Output:Intake/Output Summary (Last 24 hours) at 09/19/17 1031Last data filed at 09/19/17 0222 Gross per 24 hourIntake 0 mlOutput 2100 mlNet -2100 mlLaboratory Data:Recent Labs 09/19/1803NA 137 137 137K 4.2 4.5 4.1CHLOR 106 108* 107CO2 26 24 25CREAT 0.46* 0.45* 0.48*BUN 13 11 9GLUC 115* 129* 119*P 3.5 3.2 3.1MG 2.1 2.3 2.3CA 8.7 8.6 8.3*Recent Labs 464112SBMLWH 15.5*Trish Santos RD, LDPager: [phone]: 3 [facility] PROGRESSon 09-19-2017 Protein mass conc HNO ID: [id number] thor: Giselle (Business Performance Analyst) CroomService: ElectrophysiologyAuthor Type: Nurse PractitionerType: Progress NotesFiled: 09/19/2017 11:53 AMNote Text:HRA PROGRESS NOTE: EP CARDIOLOGY SERVICESERVICE DATE: 09/19/2017SERVICE TIME: 11:43 AMSubjectiveINTERIM HISTORY: .Cristina Jeffrey is sitting in the chair, NAD. He has anNG intacta and on TPN. He reports that his bottom is sore from laying inbed. He denies palpitations, dizziness, CP, SOB, edema.ObjectivePHYSICAL EXAM:Body mass index is 26.42 kg/m?.O2 Therapy: Room AirNo Data RecordedPatient Vitals for the past 24 hrs: BP Temp Temp src Pulse Resp SpO2 Tvbnlk68/29/18 0816 - - - 85 20 - -09/19/17 0809 - - - 88 24 96 % -09/19/17 0750 106/85 36.4 ?C (97.5 ?F) Oral 93 20 98 % -09/19/17 0743 - - - - - - 81.2 kg (179 lb 0.2 oz)09/19/17 0622 113/66 - - 90 - - -09/19/17 0422 109/63 36.7 ?C (98.1 ?F) Oral 98 20 99 % -09/19/17 0239 - - - 87 18 - -09/19/17 0229 - - - 88 20 99 % -09/19/17 0014 110/65 36.6 ?C (97.9 ?F) Oral 87 19 100 % -09/18/175 107/57 36.5 ?C (97.7 ?F) Oral 92 18 100 % -09/18/171953 - - - 104 18 98 % -09/18/171816 92/62 - - 76 - - -09/18/17 181 106/58 - - 102 - - -09/18/17 1525 - - - 114 16 100 % -09/18/17 1524 135/81 36.6 ?C (97.9 ?F) Oral 120 19 100 % -09/18/17 1252 - - - (!) 124 - - -Pleasant, comfortable, not in acute distress.Awake, alert, oriented times 3.Moves all extremities.SKIN: No rash or lumps.HEENT: Normocephalic, face symmetrical.NOSE: NG tubr intactNECK: Supple, no JVD, no carotid bruit, no thyromegaly.LUNGS: Clear to auscultation bilaterally.CARDIAC: Rhythm: irregularly irregular, Rate: tachycardia, S1: normalintensity, S2: normal intensity, No murmurABDOMEN: Soft, nontender, bowel sounds present.EXTREMITIES: No edema.PULSES: Peripheral pulses present.MEDICATIONS:Current hospital medications:Parenteral Nutrition - Adult INTRAVENOUS ONCE TPN (1800 START)clarithromycin 500 mg tab(s) (BIAXIN) 500 mg ORAL q 12 Hamoxicillin 875 mg tab(s) (AMOXIL) 875 mg ORAL q 12 HParenteral Nutrition - Adult INTRAVENOUS ONCE TPN (1800 START)digoxin 250 mcg injection (LANOXIN) 250 mcg INTRAVENOUS DAILYmetoprolol 2.5 mg injection (LOPRESSOR) 2.5 mg INTRAVENOUS q 6 HRpantoprazole 40 mg injection (PROTONIX) 40 mg INTRAVENOUS BID AC(0600/1600)albuterol 2.5 mg /3 mL (0.083 %) 2.5 mg (PROVENTIL) 2.5 mg INHALATION q 4H PRNdextran 70-hypromellose 0.1-0.3 % 1 Drop ophthalmic drops (NATURAL BALANCETEARS) 1 Drop BOTH EYES PRNphenol 1 Nineveh (CHLORASEPTIC) 1 Nineveh MUCOUS MEMBRANE (TOPICAL MOUTH ANDTHROAT) q 2 H PRNbenzocaine-menthol 1 Lozenge (CEPACOL) 1 Lozenge MUCOUS MEMBRANE (TOPICALMOUTH AND THROAT) q 2 H PRNondansetron (PF) 4 mg injection (ZOFRAN) 4 mg INTRAVENOUS q 6 H PRNdilTIAZem 100 mg in D5W 100 mL ADD-Arvilla (CARDIZEM) 5-20 mg/hrINTRAVENOUS CONTINUOUS0.9% NaCl 10 mL 10 mL INTRAVENOUS q 12 H0.9% NaCl 20 mL 20 mL INTRAVENOUS PRNiv contrast (radiology procedure) INTRAVENOUS DIRECTED PRNenoxaparin 40 mg injection (LOVENOX) 40 mg SUBCUTANEOUS DAILYDATA:Diagnostic tests reviewed for today's visit:Most recent labsMost recent telemetryPast 72 Hour Labs:Recent Labs 430WBC 8.98RBC 3.25*HB 9.1*HCT 28.7*MCV 88.3MCH 28.0MCHC 31.7*PLT 428*MPV 9.0GLUC 115*BUN 13CREAT 0.46*NA 137K 4.2CHLOR 106CO2 26CA 8.7MG 2.1Last Lab Drawn:LDL Chol, Mabel 110 02/23/2010ssessment/Plan Atrial fibrillation with RVR (HCC) POA: Yes Assessment AND Plan: persistent atrial fibrillation, rate controlattempted with Cardizem gtt and Digoxin. Telemetry shows HR 76-104. He ischadsvasc of 2 and not on oral ATC due to GI bleed. EGD last week revealedlarge antral ulcer/ Hematemesis POA: Unknown Assessment AND Plan: GI following. Gastric outlet obstruction POA: Unknown Assessment AND Plan: GI followingMedication and Non-Pharmacologic VTE Prophylaxis/AnticoagulantsAnt icoagulant AND Antiplatelet Medications Start Dose Route Frequency Ordered Stop 09/13/17 0900 enoxaparin 40 mg injection (LOVENOX) (Medical At Risk ) 40 mg SUBCUTANEOUS DAILY 09/12/17 0896 --SIGNATURE: Michelle Weeks, MSN, DICE MAKER.OPTOMETRIC ASSISTANT PATIENT NAME: Cristina JeffreyDATE: September 19, 2017 : 11:43 AM PAGER/CONTACT #: [phone] [facility] Protein mass conc HNO ID: [id number] thor: Yina RobertselService: Hospital MedicineAuthor Type: PhysicianType: Progress NotesFiled: 09/19/2017 1:11 PMNote Text:INTERNAL MEDICINE PROGRESS NOTE ADMIT DATE: 09/12/2017 1:30 PMSERVICE DATE: 09/19/2017INTERVAL HISTORY:F/u : a fib, pancreatic mass, gastric outlet obstructionS: Small amount of output form NV, passing gas. No NV. No CP,palpitations, diarrhea. Pt had slight SOB lying down, which has resolvedMEDICATIONS:Current hospital medications:Parenteral Nutrition - Adult INTRAVENOUS ONCE TPN (1800 START)digoxin 250 mcg injection (LANOXIN) 250 mcg INTRAVENOUS DAILYmetoprolol 2.5 mg injection (LOPRESSOR) 2.5 mg INTRAVENOUS q 6 HRpantoprazole 40 mg injection (PROTONIX) 40 mg INTRAVENOUS BID AC(0600/1600)albuterol 2.5 mg /3 mL (0.083 %) 2.5 mg (PROVENTIL) 2.5 mg INHALATION q 4H PRNdextran 70-hypromellose 0.1-0.3 % 1 Drop ophthalmic drops (NATURAL BALANCETEARS) 1 Drop BOTH EYES PRNphenol 1 Nineveh (CHLORASEPTIC) 1 Nineveh MUCOUS MEMBRANE (TOPICAL MOUTH ANDTHROAT) q 2 H PRNbenzocaine-menthol 1 Lozenge (CEPACOL) 1 Lozenge MUCOUS MEMBRANE (TOPICALMOUTH AND THROAT) q 2 H PRNondansetron (PF) 4 mg injection (ZOFRAN) 4 mg INTRAVENOUS q 6 H PRNdilTIAZem 100 mg in D5W 100 mL ADD-Arvilla (CARDIZEM) 5-20 mg/hrINTRAVENOUS CONTINUOUS0.9% NaCl 10 mL 10 mL INTRAVENOUS q 12 H0.9% NaCl 20 mL 20 mL INTRAVENOUS PRNiv contrast (radiology procedure) INTRAVENOUS DIRECTED PRNenoxaparin 40 mg injection (LOVENOX) 40 mg SUBCUTANEOUS DAILYPHYSICAL EXAM:VITAL SIGNS 09/19/1806BP: 113/66 106/85Pulse: 90 93 88Resp: 20 24Temp: 36.4 ?C (97.5 ?F)TempSrc: OralSpO2: 98% 96%Weight: 81.2 kg (179 lb 0.2 oz)Height:Temp (24hrs), Av.6 ?C (97.9 ?F), Min:36.4 ?C (97.5 ?F), Max:36.8 ?C(98.2 ?F)Body mass index is 26.42 kg/m?.INTAKE/OUTPUTIntake/Out put Summary (Last 24 hours) at 09/19/17 0814Last data filed at 09/19/17 0222 Gross per 24 hourIntake 100 mlOutput 2100 mlNet -2000 mlPhysical Exam:Gen: Alert and Orientated x 3, No acute distressHEENT: EOMI, PERRLA, anicteric, no pallor, no facial droopCV: S1/S2 regular rate and rhythm, no murmurs, rubs and gallops, noreproducible pain, + 2 radial pulses - equalResp: Clear to auscultation bilaterally, no wheezes, rales, rhonchi orcracklesAbd: + Bowel sounds, soft, non-tender, non-distendedExt: no pitting edemaLAB DATA:CBC:Recent Labs 09/19/1803WBC 8.98 9.34* 8.16 7.86 7.72 9.11* 7.20 7.97HB 9.1* 9.8* 8.7* 8.4* 8.2* 8.7* 8.2* 9.1*HCT 28.7* 30.2* 26.9* 25.6* 25.6* 26.8* 26.1* 28.4*PLT 428* 435* 346 283 275 256 210 212MCV 88.3 86.8 88.2 86.8 92.4 86.7 89.7 90.4COAG:Recent Labs INR 1.13BMP:Recent Labs 09/19/1803GLUC 115* 129* 119* 135* 165* 72 90 92NA 137 137 137 140 138 137 135* 131*K 4.2 4.5 4.1 3.6 3.0* 3.5 4.1 3.3*CHLOR 106 108* 107 107 104 108* 106 93*CO2 26 24 25 29 28 23 27 30ANION 9 10 9 8 9 10 6* 11BUN 13 11 9 6* 6* 10 20* 34*CREAT 0.46* 0.45* 0.48* 0.44* 0.50* 0.52* 0.67 0.84CHEM:Recent Labs 09/19/1803848292UXI -- -- -- -- -- -- -- -- 3.2*TPROT -- -- -- -- -- -- -- -- 6.2*CA 8.7 8.6 8.3* 8.0* -- 7.8* 7.0* 7.8* 9.3MG 2.1 2.3 2.3 2.1 2.6 2.1 2.1 -- 1.8CXR: no A/PCT A/P:1. ?There are findings of gastric outlet obstruction with a severelydistended and?fluid-filled stomach. ?The duodenum is collapsed with a suggestion ofmild wallthickening in addition to irregular infiltration of the surrounding fatwith a few?mildly enlarged adjacent nodes. ?While this could represent aninflammatory orneoplastic process of the duodenum, all findings are thought to mostlikely besecondary to a pancreatic head mass worrisome for neoplasm.2. ?Cholelithiasis.3. ?Probable hepatic and right renal cysts, although this should beconfirmed byultrasound.CT C/A/P:High-grade gastric outlet obstruction.?Fluid density mass or masses within the head and uncinate of the pancreas.?Differential considerations include pseudocysts, cystic neoplasm andintraductalpapillary mucinous neoplasm. ?Alternatively, findings could potentiallyrepresentdilated pancreatic duct.?Several indeterminate nodular densities in the pancreaticoduodenal regionwithassociated infiltration of fat and periduodenal fluid.?Innumerable pulmonary nodules, predominantly calcified, but alsononcalcifiedscattered throughout both lungs. ?The majority of pulmonary nodulesmeasure lessthan 4 mm in size. ?On the right, there are centrilobular nodules andgroundglassopacity within the medial lower lobe possibly inflammatory or infectious.?Thereis small volume consolidation within the posterior costophrenic angle,possibleatelectasis or pneumonia. ?On the left, there is small volumeconsolidation inprofile with the inferior major fissure at the lung base suggestingatelectasis. ?There is an indeterminate ill-defined subpleural nodule redemonstratedwithin theposterior lower lobe. ?There is small volume consolidation within theposteriorcostophrenic angle, possible atelectasis or pneumonia, with very smallpleuraleffusion.?Contrac richmond gallbladder with multiple radiopaque gallstones. ?There is mildgallbladder wall thickening and infiltration of pericholecystic fat.?Correlateclinically with clinical concern for acute gallstones.?Dilated distal thoracic aortic arch-proximal descending thoracic aortameasuring 4?cm in diameter. ?The descending thoracic aorta mildly tapers in diameterdistally.?Hepatic cysts.?1 cm hypervascular nodule within the medial spleen.?Bilateral renal cortical cystic lesions, the joint too small tocharacterize by CT?criteria.Component Latest Ref Rng AND Units 09/12/2017 09/13/2017Gastrin SEE [id number] 0.0 - 35.0 U/ml 8.1CEA 0.0 - 3.0 ng/mL 1.7Chromogranin A SEE BELOWASSESSMENT AND PLAN:# Pancreatic mass - waiting biopsy results for Surgery recs (possible OR09/21)# Gastric Outlet Obstruction -per surgery# Duodenoal Strictures s/p balloon diliation# A fib with RVR - rate controlled improved, weaning cardizem gtt# Severe Protein Calorie Malnutrition - c/w TPN?VTE Prophylaxis: Pneumatic Compression DeviceDisposition: SNFPlan of care discussed with: Patient, Nurse - Nishi, VALENTEupsaritha Yeboah Physician [facility] Phosphorus Bloodon 8 Phosphate 3.5 mg/dL Normal 2.5-4.[address] [facility] Comment on above: Performed By: #### P T ####[facility] [place] [id number] THERAPY NTon 09-19-2017 THERAPY NT HNO ID: [id number] thor: Ana Cristina (Pt) SturmService: Physical TherapyAuthor Type: Physical TherapistType: Therapy (PT/OT/Speech/Resp)Filed: 09/19/2017 3:45 PMNote Text:Physical Therapy TreatmentSERVICE DATE: 09/19/2017SERVICE TIME: 1440 to 1448ROOM: [id number] Discharge Disposition: Subacute/SNFJustification For Post Acute Needs: Anticipate that patient will requiredaily (5x/wk) skilled therapy in a post-acute facility setting at the timeof acute hospital dischargePT Recommendations to Nursing: Transfer to/from chair;OOB for Meals;Withassist of 1 personDevice: Wheeled Walker;Hand Held AssistPT 6 Clicks Score: 17Precautions/Activity Restrictions: Fall RiskIsolation Type: NoneASSESSMENT :Patient progressing with goals but patient declined gait this session.Patient Disposition at Start of Session: OOB in ChairPatient Disposition at End of Session: OOB in Chair;Call Oliva in ReachTolerance Limited By FatiguePhysical Therapy Problem List: Decreased Activity Tolerance;FunctionalMobility Impairment;Balance ImpairedPatient /Caregiver Goals: Go To RehabGoals for Plan of Care:Transfer supine to/from sit with: SupervisionTransfer sit to/from stand with: SupervisionAmbulate with: SupervisionDistance: 36o8Kleszi: Wheeled WalkerGoal: sit to/from stand x 10 reps with SBAProgress Toward Goals: Progressing as expectedRehab Potential: GoodPLAN:Treatment Frequency (times per week): 5 (1-4) Current admissionTreatment Interventions: Functional Mobility Training;BalanceTraining;Educ ation;StrengtheningPlan of Care developed with: PatientTREATMENT INTERVENTIONS:Therapy Diagnosis: Reduced mobility-other;Unsteadiness onfeet;Abnormalities of gait and mobility-otherInterventions Provided: Therapeutic Exercise (43828)Therapeutic Exercise (68953) Treatment Minutes: 101 unitSkilled Intervention(s): Instruction in therapeutic exercisePatient completed general strengthening exercises bilateral (ankle pump,quad set, gluteal set, heel slide, hip abd/add, straight leg raise, longarc quad, marching, hip adductor squeeze) x 10 reps bilateral lowerextremity, with verbal instruction for technique and pacing. Patient demogood understanding and states "I do most of these on my own"Patient declined sit to stand or gait stating "I do that with nursing"Total Timed Code Treatment Minutes: 10Total Treatment Time (minutes): 10SUBJECTIVE:Current Hospital Course: Chart reviewed and no significant medical updatesrelevant to therapy were noted.Reason for Physical Therapy Consult : pmpRelevant Past Medical History: gastric blockage; ulcers; previous rehabstayPatient Report: Up in chair. Agreeable to exercises but not mobility. "Iknow what to do"Home EnvironmentPatient Lives With: Self/AloneAssistance Available: PRNPrior Functional Level: Within Functional LimitsOBJECTIVE:CURRENT FUNCTIONAL STATUS:Current Functional Mobility Assist Level Additional InformationRollingSupine to Sit Contact Guard AssistanceSit to SupineScootingSit to Stand Contact Guard AssistanceStand to Sit Contact Guard AssistanceBed to ChairToilet/CommodeGait Contact Guard Assistance Gait Device: Hand Held Assist Gait Distance (feet): couple side steps along eOBStairsCurb StepCar TransferGeneral Gait Deviations: Fabiola decreased;Step length decreasedPlease see discipline specific clinical documentation flowsheet forcomplete details for this therapy evaluation/treatment.SIGNATUR E: Ana Cristina Walker, PT PATIENT NAME: Cristina JeffreyDATE: September 19, 2017 : 3:32 PM PAGER/CONTACT #: [phone] [facility] THERAPY NT HNO ID: [id number] thor: Nevaeh BarnettOtr/Renetta Pennervice: Occupational TherapyAuthor Type: Occupational TherapistType: Therapy (PT/OT/Speech/Resp)Filed: 09/19/2017 3:12 PMNote Text:OCCUPATIONAL THERAPY MISSED VISITSERVICE DATE: 09/19/2017SERVICE TIME: 1505 to 1510ROOM: [id number] Evaluation. Patient not seen due to Declined. Patient declinestherapy services while here in the hospital. I know what to do, I will doit myself." Will sign off at this time. Please re-consult if patientchanges his mind.SIGNATURE: Nevaeh Ventura OTR/Nirali PATIENT NAME: Cristina MooreTE: September 19, 2017 : 3:11 PM PAGER/CONTACT #:[phone] [facility] Basic Panelon 09-18-2017 Creatinine 0.45 mg/dL Low 0.67-1.[address] [facility] Comment on above: Performed By: #### P T ####[facility] [place] [address] Urea nitrogen 11 mg/dL Normal 7-[address] [facility] Comment on above: Performed By: #### P T ####[facility] [place] [address] Anion gap 10 mmol/L Normal 8-[address] [facility] Comment on above: Performed By: #### P T ####[facility] [place] [address] Calcium 8.6 mg/dL Normal 8.5-10.[address] [facility] Comment on above: Performed By: #### P T ####[place] [address] CO2 24 mmol/L Normal 21-[address] [facility] Comment on above: Performed By: #### P T ####[place] [address] Glucose mass conc 129 mg/dL High 70-[address] [facility] Comment on above: Performed By: #### P T ####[place] [address] Chloride 108 mmol/L High 98-[address] [facility] Comment on above: Performed By: #### P T ####[place] [address] Potassium molar conc 4.5 mmol/L Normal 3.5-5.1 [facility] Comment on above: Performed By: #### P T ####[place] [address] Sodium 137 mmol/L Normal 136-[address] [facility] Comment on above: Performed By: #### P T ####[place] [address] Chromogranin Aon 09-18-2017 Chromogranin A SEE BELOW Normal [facility] Comment on above: Result Comment: Biological Chemist mogranin A 500 H <98 ng/mLThis test is performed using the SensorTran QIA-IOFBM-HU kit. Resultsobtained with different methods or kits cannot be used interchangeably.This test was developed and its performance characteristics determinedby [facility] Pathology and Laboratory Medicine [place] ([facility]). It has not been cleared or approved by the FDA. [facility] is regulatedunder CLIA as qualified to perform high-complexity testing. This test is used for clinical purposes. It should not be regarded as investigational or for research.Performing Laboratory:[facility] [place] [address] Performed By: #### P T ####[place] [address] Hemogram/Diffon 09-18-2017 Abs Immature Grans 0.09 thou/cmm High 0.00-0.05 [facility] Comment on above: Performed By: #### P T ####[place] [address] Abs. Baso 0.06 thou/cmm Normal 0.01-0.[address] [facility] Comment on above: Performed By: #### P T ####[place] [address] Abs. Sheridan 0.91 thou/cmm High 0.30-0.[address] [facility] Comment on above: Performed By: #### P T ####[address] [address] Abs. Neut (ANC) 5.27 thou/cmm Normal 1.78-5.[address] [facility] Comment on above: Performed By: #### P T ####[place] [address] Basophils/100 WBC Auto (Bld) 0.6 % Normal [facility] Comment on above: Performed By: #### P T ####[address] [address] Eosinophils 0.52 thou/cmm Normal 0.04-0.[address] [facility] Comment on above: Performed By: #### P T ####[address] [address] Eosinophils/100 leukocytes 5.6 % Normal [facility] Comment on above: Performed By: #### P T ####[facility] [place] [address] Erythrocyte distribution width Auto Ratio (RBC) 15.9 % High 11.6-14.[address] [facility] Comment on above: Performed By: #### P T ####[facility] [place] [address] Erythrocytes (RBC) 3.48 mil/cmm Low 4.63-6.08 [facility] Comment on above: Performed By: #### P T ####[place] [address] Hematocrit (HCT) 30.2 % Low 40.1-51.[address] [facility] Comment on above: Performed By: #### P T ####[place] [address] Hemoglobin mass conc (Bld) 9.8 g/dL Low 13.7-17.[address] [facility] Comment on above: Performed By: #### P T ####[place] [address] Immature Grans 1.00 % Normal [facility] Comment on above: Performed By: #### P T ####[place] [address] Lymphocytes 2.49 thou/cmm Normal 0.84-2.[address] [facility] Comment on above: Performed By: #### P T ####[place] [address] Lymphocytes/100 leukocytes 26.7 % Normal [facility] Comment on above: Performed By: #### P T ####[place] [address] MCH 28.2 pg Normal 25.7-32.[address] [facility] Comment on above: Performed By: #### P T ####[place] [address] MCHC mass conc (RBC) 32.5 % Normal 32.3-36.5 [facility] Comment on above: Performed By: #### P T ####[facility] [place], [place] [address] MCV 86.8 fL Normal 83.2-95.[address] [facility] Comment on above: Performed By: #### P T ####[facility] [place], [place] [address] Monocytes/100 leukocytes 9.7 % Normal [facility] Comment on above: Performed By: #### P T ####[address] [address] Platelet mean volume (PMV) 9.1 fL Normal 8.7-12.[address] [facility] Comment on above: Performed By: #### P T ####[address] [address] Platelets 435 thou/cmm High 141-[address] [facility] Comment on above: Performed By: #### P T ####[address] [address] RDW SD 50.5 fl High 36.1-45.[address] [facility] Comment on above: Performed By: #### P T ####[address] [address] Seg Neutrophil 56.4 % Normal [facility] Comment on above: Performed By: #### P T ####[address] [address] WBC (Leukocytes) 9.34 thou/cmm High 4.23-9.[address] [facility] Comment on above: Performed By: #### P T ####[address] [address] MDRD GFRon 09-18-2017 eGFR (non-black) mL/min/{1.73_m2} Normal >60mL/m in/ 1.73m2 [facility] Comment on above: Result Comment: If t he patient is , multiply the result by 1.210. Performed By: #### P T ####[address] [address] Magnesium Bloodon 09-18-2017 Magnesium 2.3 mg/dL Normal 1.6-2.[address] [facility] Comment on above: Performed By: #### P T ####[place] [address] NURSING PROGon 09-18-2017 Protein mass conc HNO ID: [id number] thor: Vicki (Rn) KELLY Chowdhuryervice: NursingAuthor Type: Registered NurseType: Nursing Progress NoteFiled: 09/18/2017 6:33 PMNote Text:Dr. Maher notified that pt.'s HR in 130s-160s on maxed out at 20 onCardizem gtt. Orders given for IV Lopressor 2.5 mg Q6. If pt.'s HRcontinues to be increased, will not intervene. Will continue to monitor. [facility] Protein mass conc HNO ID: [id number] thor: Alyssa (Rn) KELLY Selfervice: NursingAuthor Type: Registered NurseType: Nursing Progress NoteFiled: 09/18/2017 6:18 AMNote Text:Pt with HR 140-160. Sound paged, pt currently on cardizem gtt at15mg/hr. Order received for IV metoprolol. [facility] Protein mass conc HNO ID: [id number] thor: Alyssa (Gregory) KELLY Selfervice: NursingAuthor Type: Registered NurseType: Nursing Progress NoteFiled: 09/18/2017 5:17 AMNote Text:Pt with sluggish blood return in distal lumen of PICC. Order obtained forcathflo. When attempting to instill Cathflo, RN noted now pt has totalocclusion. Will instill cathflo per protocol and continue to monitor [facility] PROGRESSon 09-18-2017 Protein mass conc HNO ID: [id number] thor: CANDICE Jensenervice: Hospital MedicineAuthor Type: PhysicianType: Progress NotesFiled: 09/18/2017 5:53 PMNote Text:DEPARTMENT OF HOSPITAL MEDICINEPROGRESS NOTESERVICE DATE: 09/18/2017SERVICE TIME: 5:28 PMHospital Medicine/Primary Attending: Nick Sanchez MDNIGHT AND WEEKEND COVERAGE:After 7pm please page [phone] COMPLAINT: Gastric outlet obstructionSUBJECTIVE:72 yrs old male initially admitted to MICU for AFIB RVR, hypotension, hehad recent Hx of GI bleeding, PUD,clipping and epi injection followed byangio-embolization of gastroduodenal and gastroepiploic arteries done inJune 2017. On admission, CT showed Large distended stomach with gastricoutlet obstruction, flattened duodenum, mass like lesion at head ofpancreas also noted. Evaluated by surgery, GI, NGT placed, EGD again wasperformed on 09/15/2017, dilated stomach, duodenal ulcer and high gradeduodenal stricture demonstrated, and balloon dilatation was performed,final biopsy pending, GI actually signed off, General surgery is waitingfor final pathology report to decide possible surgery for pancreatic mass.NG tube is in place with suction, he complains noses and throat hurt,Last night, pt again had afib RVR, cardizem drip was started , EPcardiology was consulted.OBJECTIVE:PHYSICAL EXAM: BP 135/81 Pulse 114 Temp (Src) 97.9 (Oral) Resp 16 Ht 5' 9.016" (1.75m) Wt 177 lb 12.8 oz (80.7kg) SpO2 100% BMI 26.24kg/(m2).General - AANDOx3, NAD, CalmHEENT; NG in place, PERRLA, EOMICV -Irregularly irregular rhythm,?S1 S2, No M/R/GRESP - Diminished breath sounds?No wheezes, ronchi, ralesABD - soft, NT, ND, hyperactive BSEXT - no gross joint deformity, no clubbing, cyanosis, edemaNEURO - CN II-XII grossly intact, no focal deficitsSkin: Warm dryMEDICATIONS:Current hospital medications:Parenteral Nutrition - Adult INTRAVENOUS ONCE TPN (1800 START)digoxin 250 mcg injection (LANOXIN) 250 mcg INTRAVENOUS DAILYmetoprolol 2.5 mg injection (LOPRESSOR) 2.5 mg INTRAVENOUS q 6 HRParenteral Nutrition - Adult INTRAVENOUS ONCE TPN (1800 START)pantoprazole 40 mg injection (PROTONIX) 40 mg INTRAVENOUS BID AC(0600/1600)albuterol 2.5 mg /3 mL (0.083 %) 2.5 mg (PROVENTIL) 2.5 mg INHALATION q 4H PRNdextran 70-hypromellose 0.1-0.3 % 1 Drop ophthalmic drops (NATURAL BALANCETEARS) 1 Drop BOTH EYES PRNphenol 1 Nineveh (CHLORASEPTIC) 1 Nineveh MUCOUS MEMBRANE (TOPICAL MOUTH ANDTHROAT) q 2 H PRNbenzocaine-menthol 1 Lozenge (CEPACOL) 1 Lozenge MUCOUS MEMBRANE (TOPICALMOUTH AND THROAT) q 2 H PRNondansetron (PF) 4 mg injection (ZOFRAN) 4 mg INTRAVENOUS q 6 H PRNdilTIAZem 100 mg in D5W 100 mL ADD-Arvilla (CARDIZEM) 5-20 mg/hrINTRAVENOUS CONTINUOUS0.9% NaCl 10 mL 10 mL INTRAVENOUS q 12 H0.9% NaCl 20 mL 20 mL INTRAVENOUS PRNiv contrast (radiology procedure) INTRAVENOUS DIRECTED PRNenoxaparin 40 mg injection (LOVENOX) 40 mg SUBCUTANEOUS DAILYDATA:Diagnostic tests reviewed for today's visit:CBC:Recent Labs WBC 9.34*RBC 3.48*HB 9.8*HCT 30.2*PLT 435*MCV 86.8MCH 28.2MPV 9.1RDW 15.9*Coags: No results for input(s): INR, APTT in the last 24 hours.Invalid input(s): PTBMP:Recent Labs NA 137K 4.5CHLOR 108*CO2 24BUN 11CREAT 0.45*GLUC 129*CMP:Recent Labs NA 137K 4.5CHLOR 108*CO2 24BUN 11CREAT 0.45*GLUC 129*CA 8.6MG 2.3ANION 10Cardiac Enzymes: No results for input(s): CK, MB, CKMB, TROPT in the last24 hours.Liver Function, Amylase, Lipase: No results for input(s): TPROT, ALB, ALT,AST, ALKPHOS, TBILI, AMYLASE, LIPASE, LACTATE in the last 24 hours.MG/PHOS:Recent Labs MG 2.3P 3.2Renal Panel:Recent Labs 6CREAT 0.45*BUN 11GLUC 129*CA 8.6P 3.2CHLOR 108*K 4.5CO2 24NA 137Heme: No results for input(s): RETICP, ABSRETIC, LD, JEREMIE, FE, TIBC,TRANSFERSAT in the last 24 hours.No results found for: UALBCRAssessment/Plan1. Gastric outlet obstruction, PUD/Duodenal ulcers, duodenal stricture s/pBalloon Dilatation. On PPI, final biopsy path report pending. NG still inplace, pt does complains noses throat hurt.2. Pancreatic mass, general surgery on board, will not consider surgeryuntil final biopsy report available3. Recent GI bleeding, resolved, HH stable4. Chronic normocytic anemia5. Afib RVR, rate in control with Cardizem drip, digoxin, not onanticoagulation, EP on consult6. Protein calories malnutrition, on TPN7. Hypokalemia, replaced and resolved?PT/OT?VTE Prophylaxis: Pneumatic Compression DeviceDisposition: SNFPlan of care discussed with: PatientSIGNATURE: Nick Sanchez MD PATIENT NAME: Cristina JeffreyDATE: September 18, 2017 : 5:28 PM PAGER/CONTACT #: Normal [facility] Protein mass conc HNO ID: [id number] thor: Neema SorianoyService: ElectrophysiologyAuthor Type: PhysicianType: Progress NotesFiled: 09/18/2017 12:06 PMNote Text:INPATIENT PROGRESS NOTESERVICE DATE: 09/18/2017SERVICE TIME: 12:04 PMSubjectiveSubjective:Sympto ms: Stable.Activity level: Impaired due to weakness.Pain: He reports no pain.Current hospital medications:Parenteral Nutrition - Adult INTRAVENOUS ONCE TPN (1800 START)Parenteral Nutrition - Adult INTRAVENOUS ONCE TPN (1800 START)pantoprazole 40 mg injection (PROTONIX) 40 mg INTRAVENOUS BID AC(0600/1600)albuterol 2.5 mg /3 mL (0.083 %) 2.5 mg (PROVENTIL) 2.5 mg INHALATION q 4H PRNdigoxin 125 mcg injection (LANOXIN) 125 mcg INTRAVENOUS DAILYdextran 70-hypromellose 0.1-0.3 % 1 Drop ophthalmic drops (NATURAL BALANCETEARS) 1 Drop BOTH EYES PRNphenol 1 Nineveh (CHLORASEPTIC) 1 Nineveh MUCOUS MEMBRANE (TOPICAL MOUTH ANDTHROAT) q 2 H PRNbenzocaine-menthol 1 Lozenge (CEPACOL) 1 Lozenge MUCOUS MEMBRANE (TOPICALMOUTH AND THROAT) q 2 H PRNondansetron (PF) 4 mg injection (ZOFRAN) 4 mg INTRAVENOUS q 6 H PRNdilTIAZem 100 mg in D5W 100 mL ADD-Arvilla (CARDIZEM) 5-20 mg/hrINTRAVENOUS CONTINUOUS0.9% NaCl 10 mL 10 mL INTRAVENOUS q 12 H0.9% NaCl 20 mL 20 mL INTRAVENOUS PRNiv contrast (radiology procedure) INTRAVENOUS DIRECTED PRNenoxaparin 40 mg injection (LOVENOX) 40 mg SUBCUTANEOUS DAILYObjectiveObjective:Gener al Appearance: Ill-appearing.Vital signs: (most recent): Blood pressure 134/88, pulse 110, ocnpcisbcpe47.6 ?C (97.9 ?F), temperature source Oral, resp. rate 18, height 175.3 cm(5' 9.02"), weight 80.6 kg (177 lb 12.8 oz), SpO2 99 %.Lungs: Normal effort. He is not in respiratory distress.Neurological: Patient is alert and oriented to person, place and time.Patient Vitals for the past 24 hrs: BP Temp Temp src Pulse Resp BiW84909/18/17 0954 - - - 110 18 -09/18/17 0833 134/88 - - 110 - -09/18/17 0816 126/97 36.6 ?C (97.9 ?F) Oral 103 16 99 %09/18/17 0611 108/87 - - (!) 147 18 -09/18/17 0350 127/69 36.6 ?C (97.9 ?F) Oral (!) 125 18 98 %09/17/17 2333 - - - 80 18 98 %09/17/17 2323 - - - 78 20 98 %09/17/17 2308 126/76 - - 102 20 -09/17/17 2023 128/72 36.9 ?C (98.4 ?F) Oral 117 22 96 %09/17/17 1729 - - - 111 28 96 %Body mass index is 26.24 kg/m?.DATA:Diagnostic tests reviewed for today's visit:Most recent labs and imaging results.Assessment/Vcct24-qqh r-old male with recurrent GI bleeding, persistent asymptomaticatrial fibrillation. Rate control suboptimal on intravenous diltiazem anddigoxin. We'll increase diltiazem to 20 mg per hour, may have to add IVbeta alex if needed for rate control. Would expect ventricular ratecontrol to remain challenging despite medical therapy. Cannot beanticoagulated, and therefore not a candidate for pharmacologic rhythmcontrol measures.SIGNATURE: Neema Maher MD PATIENT NAME: Cristina JeffreyDATE: September 18, 2017 : 12:03 PM PAGER: [phone] Normal [facility] Phosphorus Bloodon 8 Phosphate 3.2 mg/dL Normal 2.5-4.[address] [facility] Comment on above: Performed By: #### P T ####[place] [address] Prealbuminon 09-18-2017 Prealbumin 15.5 mg/dL Low 20.0-40.[address] [facility] Comment on above: Performed By: #### P T ####[place] [address] ABDOMEN 1 VIEWon 09-17-2017 ABDOMEN 1 VIEW Performed at [facility] APPROVED BY: NAKITA LAMBERT MD EXAM: Supine abdominal radiograph(s) HISTORY: Check NG tube placement COMPARISON: None. FINDINGS: Supine only exam of the abdomen demonstrates a nonobstructive bowel gas pattern. The visualized soft tissues are unremarkable. There are no abnormal calcifications. The bones are within normal limits for age. Please note this exam does not evaluate for free intraperitoneal air. NG tube tip in proximal gastric fundus. Lung bases are clear. IMPRESSION: 1. NG tube tip in proximal gastric fundus Normal [facility] Basic Panelon 09-17-2017 Creatinine 0.48 mg/dL Low 0.67-1.[address] [facility] Comment on above: Performed By: #### P T ####[place] [address] Anion gap 9 mmol/L Normal 8-[address] [facility] Comment on above: Performed By: #### P T ####[place] [address] CO2 25 mmol/L Normal 21-[address] [facility] Comment on above: Performed By: #### P T ####[facility] [place], [place] [address] Glucose mass conc 119 mg/dL High 70-[address] [facility] Comment on above: Performed By: #### P T ####[facility] [place], [place] [address] Urea nitrogen 9 mg/dL Normal 7-[address] [facility] Comment on above: Performed By: #### P T ####[facility] [place] [address] Calcium 8.3 mg/dL Low 8.5-10.[address] [facility] Comment on above: Performed By: #### P T ####[place] [address] Chloride 107 mmol/L Normal 98-[address] [facility] Comment on above: Performed By: #### P T ####[place] [address] Potassium molar conc 4.1 mmol/L Normal 3.5-5.1 [facility] Comment on above: Performed By: #### P T ####[place] [address] Sodium 137 mmol/L Normal 136-[address] [facility] Comment on above: Performed By: #### P T ####[place] [address] CASE MANAGEMon 09-17-2017 CASE MANAGEM HNO ID: [id number] thor: nIez (Rn) Rachel, RNService: Care ManagementAuthor Type: Registered NurseType: Care Mgt Progress NoteFiled: 09/17/2017 9:30 AMNote Text:PT rec SNF; OT still pending. [facility]erral [facility]; awaitingresponse. No precert required at d/c ( 3 INPT MNs already completed). D/cvia ambulette vs private ride based on PT notes. Normal [facility] Hemogram/Diffon 09-17-2017 Abs Immature Grans 0.06 thou/cmm High 0.00-0.05 [facility] Comment on above: Performed By: #### P T ####[facility] [place] [address] Abs. Baso 0.04 thou/cmm Normal 0.01-0.[address] [facility] Comment on above: Performed By: #### P T ####[place] [address] Abs. [place] 0.91 thou/cmm High 0.30-0.[address] [facility] Comment on above: Performed By: #### P T ####[place] [address] Abs. Neut (ANC) 4.45 thou/cmm Normal 1.78-5.[address] [facility] Comment on above: Performed By: #### P T ####[place] [address] Basophils/100 WBC Auto (Bld) 0.5 % Normal [facility] Comment on above: Performed By: #### P T ####[place] [address] Eosinophils 0.51 thou/cmm Normal 0.04-0.[address] [facility] Comment on above: Performed By: #### P T ####[place] [address] Eosinophils/100 leukocytes 6.3 % Normal [facility] Comment on above: Performed By: #### P T ####[place] [address] Erythrocyte distribution width Auto Ratio (RBC) 15.9 % High 11.6-14.[address] [facility] Comment on above: Performed By: #### P T ####[place] [address] Erythrocytes (RBC) 3.05 mil/cmm Low 4.63-6.08 [facility] Comment on above: Performed By: #### P T ####[place] [address] Hematocrit (HCT) 26.9 % Low 40.1-51.[address] [facility] Comment on above: Performed By: #### P T ####[facility] [place] [address] Hemoglobin mass conc (Bld) 8.7 g/dL Low 13.7-17.[address] [facility] Comment on above: Performed By: #### P T ####[place] [address] Immature Grans 0.70 % Normal [facility] Comment on above: Performed By: #### P T ####[place] [address] Lymphocytes 2.19 thou/cmm Normal 0.84-2.[address] [facility] Comment on above: Performed By: #### P T ####[place] [address] Lymphocytes/100 leukocytes 26.8 % Normal [facility] Comment on above: Performed By: #### P T ####[place] [address] MCH 28.5 pg Normal 25.7-32.[address] [facility] Comment on above: Performed By: #### P T ####[place] [address] MCHC mass conc (RBC) 32.3 % Normal 32.3-36.5 [facility] Comment on above: Performed By: #### P T ####[place] [address] MCV 88.2 fL Normal 83.2-95.[address] [facility] Comment on above: Performed By: #### P T ####[address] [address] Monocytes/100 leukocytes 11.2 % Normal [facility] Comment on above: Performed By: #### P T ####[place] [address] Platelet mean volume (PMV) 9.4 fL Normal 8.7-12.[address] [facility] Comment on above: Performed By: #### P T ####[place] [address] Platelets 346 thou/cmm Normal 141-[address] [facility] Comment on above: Performed By: #### P T ####[place] [address] RDW SD 50.7 fl High 36.1-45.[address] [facility] Comment on above: Performed By: #### P T ####[place] [address] Seg Neutrophil 54.5 % Normal [facility] Comment on above: Performed By: #### P T ####[place] [address] WBC (Leukocytes) 8.16 thou/cmm Normal 4.23-9.[address] [facility] Comment on above: Performed By: #### P T ####[place] [address] MDRD GFRon 09-17-2017 eGFR (non-black) mL/min/{1.73_m2} Normal >60mL/m in/ 1.73m2 [facility] Comment on above: Result Comment: If t he patient is , multiply the result by 1.210. Performed By: #### P T ####[place] [address] Magnesium Bloodon 09-17-2017 Magnesium 2.3 mg/dL Normal 1.6-2.[address] [facility] Comment on above: Performed By: #### P T ####[place] [address] NURSING PROGon 09-17-2017 Protein mass conc HNO ID: [id number] thor: Raul (Rosario Membreno: NursingAuthor Type: ResidentType: Nursing Progress NoteFiled: 09/17/2017 6:07 AMNote Text: At testation signed by Gm Dunbar at 09/17/2017 12:42 PMAs above.Gm Dunbar MD, FACS, [facility] Nursing Progress NotePatient Name: Cristina JeffreyMRN: [id number] Location: [place] [address]/[place] [address]*____ NG tube fell out at 6:50pm. Day shift RN spoke to General Surgery to askif they would like NG tube reinserted, to which they said yes untilpatient regain bowel function.NG tube inserted. Patient tolerated well. Approximately 800mL of brownbile-like content drained from NG tube post insertion. Called generalsurgery for orders for XR KUB and OK to use NG tube. Orders obtainedhowever resident Vee and Ignacio state that surgery had signedoff. Informed Dr Gaspar about this. Surgery reconsulted.This note was completed by: KELLY Maddenurgery is following this patient pending biopsy results. The overallmanagement of this patient is by the medicine service. Surgery recommendsan NGT as long as the patient is not having bowel function andnauseas/vomiting. Surgery will have further input on the surgicalmanagement of this patient when the biopsy from EGD has resulted. Normal [facility] PROGRESSon 09-17-2017 Protein mass conc HNO ID: [id number] thor: CANDICE Jensenervice: [facility] MedicineAuthor Type: PhysicianType: Progress NotesFiled: 09/17/2017 2:21 PMNote Text:DEPARTMENT OF HOSPITAL MEDICINEPROGRESS NOTESERVICE DATE: 09/17/2017SERVICE TIME: 2:16 PMHospital Medicine/Primary Attending: Nick Sanchez MDNIGHT AND WEEKEND COVERAGE:After 7pm please page [phone] COMPLAINT: Gastric outlet obstructionSUBJECTIVE: Slightly more SOB this am, ab when lying down flat, improvedwhen sitting up and after duoneb therapy, no swelling in legs; NGreinserted,OBJECTIVE:PHYSIC AL EXAM: BP 111/67 Pulse 90 Temp (Src) 97.7 (Oral) Resp 20 Ht 5' 9.016" (1.75m) Wt 177 lb 12.8 oz (80.7kg) SpO2 96% BMI 26.24kg/(m2).General - AANDOx3, NAD, CalmHEENT; NG in place, PERRLA, EOMICV -Irregularly irregular rhythm,?S1 S2, No M/R/GRESP - Diminished breath sounds?No wheezes, ronchi, ralesABD - soft, NT, ND +BSEXT - no gross joint deformity, no clubbing, cyanosis, edemaNEURO - CN II-XII grossly intact, no focal deficitsSkin: Warm dryMEDICATIONS:Current hospital medications:Parenteral Nutrition - Adult INTRAVENOUS ONCE TPN (1800 START)Parenteral Nutrition - Adult INTRAVENOUS ONCE TPN (1800 START)pantoprazole 40 mg injection (PROTONIX) 40 mg INTRAVENOUS BID AC(0600/1600)albuterol 2.5 mg /3 mL (0.083 %) 2.5 mg (PROVENTIL) 2.5 mg INHALATION q 4H PRNdigoxin 125 mcg injection (LANOXIN) 125 mcg INTRAVENOUS DAILYdextran 70-hypromellose 0.1-0.3 % 1 Drop ophthalmic drops (NATURAL BALANCETEARS) 1 Drop BOTH EYES PRNphenol 1 Nineveh (CHLORASEPTIC) 1 Nineveh MUCOUS MEMBRANE (TOPICAL MOUTH ANDTHROAT) q 2 H PRNbenzocaine-menthol 1 Lozenge (CEPACOL) 1 Lozenge MUCOUS MEMBRANE (TOPICALMOUTH AND THROAT) q 2 H PRNondansetron (PF) 4 mg injection (ZOFRAN) 4 mg INTRAVENOUS q 6 H PRNdilTIAZem 100 mg in D5W 100 mL ADD-Arvilla (CARDIZEM) 5-15 mg/hrINTRAVENOUS CONTINUOUS0.9% NaCl 10 mL 10 mL INTRAVENOUS q 12 H0.9% NaCl 20 mL 20 mL INTRAVENOUS PRNiv contrast (radiology procedure) INTRAVENOUS DIRECTED PRNenoxaparin 40 mg injection (LOVENOX) 40 mg SUBCUTANEOUS DAILYDATA:Diagnostic tests reviewed for today's visit:CBC:Recent Labs WBC 8.16RBC 3.05*HB 8.7*HCT 26.9*PLT 346MCV 88.2MCH 28.5MPV 9.4RDW 15.9*Coags: No results for input(s): INR, APTT in the last 24 hours.Invalid input(s): PTBMP:Recent Labs NA 137K 4.1CHLOR 107CO2 25BUN 9CREAT 0.48*GLUC 119*CMP:Recent Labs NA 137K 4.1CHLOR 107CO2 25BUN 9CREAT 0.48*GLUC 119*CA 8.3*MG 2.3ANION 9Cardiac Enzymes: No results for input(s): CK, MB, CKMB, TROPT in the last24 hours.Liver Function, Amylase, Lipase: No results for input(s): TPROT, ALB, ALT,AST, ALKPHOS, TBILI, AMYLASE, LIPASE, LACTATE in the last 24 hours.MG/PHOS:Recent Labs MG 2.3P 3.1Renal Panel:Recent Labs 5CREAT 0.48*BUN 9GLUC 119*CA 8.3*P 3.1CHLOR 107K 4.1CO2 25NA 137Heme: No results for input(s): RETICP, ABSRETIC, LD, JEREMIE, FE, TIBC,TRANSFERSAT in the last 24 hours.No results found for: UALBCRAssessment/Plan1. Gastric outlet obstruction, PUD on EGD, s/p endoclip, EPI injection andIR embolization. On PPI, final biopsy path report pending. NG still inplace2. Pancreatic mass, general surgery on board, will not consider surgeryuntil final biopsy report available3. GI bleeding, resolved, HH stable4. Chronic normocytic anemia5. Afib RVR, rate in control, not on anticoagulation6. Nutrition; NG,TPN7. Hypokalemia, replaced and resolved?PT/OTVTE Prophylaxis: Lovenox 40mg Sub Q DailyDisposition: SNFPlan of care discussed with: PatientSIGNATURE: Nick Sanchez MD PATIENT NAME: Cristina JeffreyDATE: September 17, 2017 : 2:16 PM PAGER/CONTACT #: Nusrat [facility] Protein mass conc HNO ID: [id number] thor: Neema Cordova VitbeckieyService: ElectrophysiologyAuthor Type: PhysicianType: Progress NotesFiled: 09/17/2017 12:29 PMNote Text:INPATIENT PROGRESS NOTESERVICE DATE: 09/17/2017SERVICE TIME: 11:30 AMSubjectiveSubjective:Sympto ms: Stable.Diet: NPO.Activity level: Impaired due to weakness.Pain: He reports no pain.Current hospital medications:Parenteral Nutrition - Adult INTRAVENOUS ONCE TPN (1800 START)Parenteral Nutrition - Adult INTRAVENOUS ONCE TPN (1800 START)pantoprazole 40 mg injection (PROTONIX) 40 mg INTRAVENOUS BID AC(0600/1600)albuterol 2.5 mg /3 mL (0.083 %) 2.5 mg (PROVENTIL) 2.5 mg INHALATION q 4H PRNdigoxin 125 mcg injection (LANOXIN) 125 mcg INTRAVENOUS DAILYdextran 70-hypromellose 0.1-0.3 % 1 Drop ophthalmic drops (NATURAL BALANCETEARS) 1 Drop BOTH EYES PRNphenol 1 Nineveh (CHLORASEPTIC) 1 Nineveh MUCOUS MEMBRANE (TOPICAL MOUTH ANDTHROAT) q 2 H PRNbenzocaine-menthol 1 Lozenge (CEPACOL) 1 Lozenge MUCOUS MEMBRANE (TOPICALMOUTH AND THROAT) q 2 H PRNondansetron (PF) 4 mg injection (ZOFRAN) 4 mg INTRAVENOUS q 6 H PRNdilTIAZem 100 mg in D5W 100 mL ADD-Arvilla (CARDIZEM) 5-15 mg/hrINTRAVENOUS CONTINUOUS0.9% NaCl 10 mL 10 mL INTRAVENOUS q 12 H0.9% NaCl 20 mL 20 mL INTRAVENOUS PRNiv contrast (radiology procedure) INTRAVENOUS DIRECTED PRNenoxaparin 40 mg injection (LOVENOX) 40 mg SUBCUTANEOUS DAILYObjectiveObjective:Gener al Appearance: Ill-appearing.Vital signs: (most recent): Blood pressure 111/67, pulse 90, hoxzvwxasqo57.5 ?C (97.7 ?F), temperature source Oral, resp. rate 20, height 175.3 cm(5' 9.02"), weight 80.6 kg (177 lb 12.8 oz), SpO2 96 %.Lungs: Normal effort. He is not in respiratory distress.Chest: Symmetric chest wall expansion.Neurological: Patient is alert.Patient Vitals for the past 24 hrs: BP Temp Temp src Pulse Resp SpO2 Klrpop08/27/18 1200 111/67 36.5 ?C (97.7 ?F) Oral 90 20 96 % -09/17/17 1030 - - - 82 28 96 % -09/17/17 0900 97/64 36.4 ?C (97.5 ?F) Oral 90 18 96 % -09/17/17 0612 - - - - - - 80.6 kg (177 lb 12.8 oz)09/17/17 0511 110/63 36.7 ?C (98.1 ?F) Oral 90 18 97 % -09/16/17 2358 104/60 37.1 ?C (98.8 ?F) Oral 96 18 97 % -09/16/172115 - - - 109 20 97 % -09/16/172108 - - - 107 22 96 % -09/16/173 133/69 36.3 ?C (97.3 ?F) Oral 110 30 97 % -09/16/17 1523 103/53 36.5 ?C (97.7 ?F) Oral 97 18 97 % -Body mass index is 26.24 kg/m?.DATA:Diagnostic tests reviewed for today's visit:Most recent labs and imaging results.Assessment/Qdij76-bzi r-old male with persistent atrial fibrillation, recurrent GIbleeding. Remains in atrial fibrillation with now controlled ventricularrate, and cannot be anticoagulated due to recent hemorrhage, planned for asurgical intervention on Monday, continue rate control with diltiazem anddigoxin.SIGNATURE: Neema Maher MD PATIENT NAME: Cristina JeffreyDATE: September 17, 2017 : 12:27 PM PAGER: [phone] Normal [facility] Phosphorus Bloodon 8 Phosphate 3.1 mg/dL Normal 2.5-4.[address] [facility] Comment on above: Performed By: #### P T ####[facility] [place], [place] [address] Basic Panelon 09-16-2017 Creatinine 0.44 mg/dL Low 0.67-1.[address] [facility] Comment on above: Performed By: #### P T ####[facility] [place], [place] [address] Anion gap 8 mmol/L Normal 8-[address] [facility] Comment on above: Performed By: #### P T ####[address] [address] CO2 29 mmol/L Normal 21-[address] [facility] Comment on above: Performed By: #### P T ####[address] [address] Glucose mass conc 135 mg/dL High 70-[address] [facility] Comment on above: Performed By: #### P T ####[address] [address] Urea nitrogen 6 mg/dL Low 7-[address] [facility] Comment on above: Performed By: #### P T ####[address] [address] Calcium 8.0 mg/dL Low 8.5-10.[address] [facility] Comment on above: Performed By: #### P T ####[address] [address] Chloride 107 mmol/L Normal 98-[address] [facility] Comment on above: Performed By: #### P T ####[address] [address] Potassium molar conc 3.6 mmol/L Normal 3.5-5.1 [facility] Comment on above: Performed By: #### P T ####[address] [address] Sodium 140 mmol/L Normal 136-[address] [facility] Comment on above: Performed By: #### P T ####[address], [place] [address] CONSULT PROGon 09-16-2017 Protein mass conc HNO ID: [id number] thor: Silverio Garrett: GastroenterologyAuthor Type: PhysicianType: Consult Progress NoteFiled: 09/16/2017 12:25 PMNote Text:CONSULT PROGRESS NOTESERVICE DATE: 09/16/2017SERVICE TIME: 9:44 AMCONSULTING SERVICE: GISubjectiveINTERVAL HPI: Pt has some throat and nose irritation from the NG tube. EGDyesterday showing dilated stomach with large amount of residual food, a 2cm x1 cm ulcer in distal antrum, 4 cm cavernous appearaing deep ulcer induodenal bulb and high grade post- bulbar stricture s/p balloon dilated to12 mm?Current hospital medications:Parenteral Nutrition - Adult INTRAVENOUS ONCE TPN (1800 START)albuterol 2.5 mg /3 mL (0.083 %) 2.5 mg (PROVENTIL) 2.5 mg INHALATION q 4H PRNParenteral Nutrition - Adult INTRAVENOUS ONCE TPN (1800 START)digoxin 125 mcg injection (LANOXIN) 125 mcg INTRAVENOUS DAILYdextran 70-hypromellose 0.1-0.3 % 1 Drop ophthalmic drops (NATURAL BALANCETEARS) 1 Drop BOTH EYES PRNphenol 1 Nineveh (CHLORASEPTIC) 1 Nineveh MUCOUS MEMBRANE (TOPICAL MOUTH ANDTHROAT) q 2 H PRNbenzocaine-menthol 1 Lozenge (CEPACOL) 1 Lozenge MUCOUS MEMBRANE (TOPICALMOUTH AND THROAT) q 2 H PRNondansetron (PF) 4 mg injection (ZOFRAN) 4 mg INTRAVENOUS q 6 H PRNdilTIAZem 100 mg in D5W 100 mL ADD-Arvilla (CARDIZEM) 5-15 mg/hrINTRAVENOUS CONTINUOUS0.9% NaCl 10 mL 10 mL INTRAVENOUS q 12 H0.9% NaCl 20 mL 20 mL INTRAVENOUS PRNiv contrast (radiology procedure) INTRAVENOUS DIRECTED PRNenoxaparin 40 mg injection (LOVENOX) 40 mg SUBCUTANEOUS DAILYpantoprazole 40 mg injection (PROTONIX) 40 mg INTRAVENOUS DAILY (6 AM)ObjectivePHYSICAL EXAM:Physical Exam Performed:GENERAL: Alert, no distress, cooperativeABDOMEN: Abdomen soft, non-tender, BS normal, No masses or organomegalyBP 110/65 Pulse 88 Temp (Src) 98.1 (Oral) Resp 18 Ht 5' 9.016"(1.75m) Wt 180 lb 14.4 oz (82.1kg) SpO2 97% BMI 26.70 kg/(m2).DATA:Diagnostic tests reviewed for today's visit:Most recent labs and imaging results.CBC, Coags, BMP, Mg, PhosRecent Labs 0 09/15/1802WBC 7.86 7.72 9.11* 7.20HB 8.4* 8.2* 8.7* 8.2*HCT 25.6* 25.6* 26.8* 26.1*PLT 283 275 256 210NA 140 -- 138 137K 3.6 -- 3.0* 3.5CHLOR 107 -- 104 108*CO2 29 -- 28 23BUN 6* -- 6* 10CREAT 0.44* -- 0.50* 0.52*GLUC 135* -- 165* 72CA 8.0* -- 7.8* 7.0*MG 2.1 2.6 2.1 2.1P 2.5 4.9 1.5* 1.3*Liver Function, Amylase, AND LipaseImpression/Recommendati onsPancreatic mass with suspected gastric outlet obstruction - currently hasNG with scant black drainage- General surgery following. Considering surgery?History of Gastric ulcers and pyloric channel ulcers- s/p endoclip, EPIinjection and IR embolization.-EGD yesterday showing dilated stomach with large amount of residual food,a 2 cm x1 cm ulcer in distal antrum, 4 cm cavernous appearaing deep ulcerin duodenal bulb and high grade post- bulbar stricture s/p balloon dilatedto 12 mm-Increase Protonix to 40 mg BID IV-Avoid NSAIDs-Monitor H/H and transfuse as needed-Surgery followingNo acute GI needs. Will sign off, please call with questions.SIGNATURE: Silverio Driver MD PATIENT NAME: Cristina JeffreyDATE: September 16, 2017 : 9:44 AM Normal [facility] Hemogram/Diffon 09-16-2017 Abs Immature Grans 0.04 thou/cmm Normal 0.00-0.05 [facility] Comment on above: Performed By: #### P T ####[facility] [place] [address] Abs. Baso 0.03 thou/cmm Normal 0.01-0.[address] [facility] Comment on above: Performed By: #### P T ####[place] [address] Abs. Sheridan 0.81 thou/cmm Normal 0.30-0.[address] [facility] Comment on above: Performed By: #### P T ####[place] [address] Abs. Neut (ANC) 4.69 thou/cmm Normal 1.78-5.[address] [facility] Comment on above: Performed By: #### P T ####[place] [address] Basophils/100 WBC Auto (Bld) 0.4 % Normal [facility] Comment on above: Performed By: #### P T ####[place] [address] Eosinophils 0.40 thou/cmm Normal 0.04-0.[address] [facility] Comment on above: Performed By: #### P T ####[place] [address] Eosinophils/100 leukocytes 5.1 % Normal [facility] Comment on above: Performed By: #### P T ####[place] [address] Erythrocyte distribution width Auto Ratio (RBC) 15.8 % High 11.6-14.[address] [facility] Comment on above: Performed By: #### P T ####[place] [address] Erythrocytes (RBC) 2.95 mil/cmm Low 4.63-6.08 [facility] Comment on above: Performed By: #### P T ####[place] [address] Hematocrit (HCT) 25.6 % Low 40.1-51.[address] [facility] Comment on above: Performed By: #### P T ####[facility] [place] [address] Hemoglobin mass conc (Bld) 8.4 g/dL Low 13.7-17.[address] [facility] Comment on above: Performed By: #### P T ####[place] [address] Immature Grans 0.50 % Normal [facility] Comment on above: Performed By: #### P T ####[place] [address] Lymphocytes 1.89 thou/cmm Normal 0.84-2.[address] [facility] Comment on above: Performed By: #### P T ####[address] [address] Lymphocytes/100 leukocytes 24.0 % Normal [facility] Comment on above: Performed By: #### P T ####[place] [address] MCH 28.5 pg Normal 25.7-32.[address] [facility] Comment on above: Performed By: #### P T ####[place] [address] MCHC mass conc (RBC) 32.8 % Normal 32.3-36.5 [facility] Comment on above: Performed By: #### P T ####[place] [address] MCV 86.8 fL Normal 83.2-95.[address] [facility] Comment on above: Performed By: #### P T ####[place] [address] Monocytes/100 leukocytes 10.3 % Normal [facility] Comment on above: Performed By: #### P T ####[place] [address] Platelet mean volume (PMV) 9.4 fL Normal 8.7-12.[address] [facility] Comment on above: Performed By: #### P T ####[facility] [place] [address] Platelets 283 thou/cmm Normal 141-[address] [facility] Comment on above: Performed By: #### P T ####[place] [address] RDW SD 50.0 fl High 36.1-45.[address] [facility] Comment on above: Performed By: #### P T ####[place] [address] Seg Neutrophil 59.7 % Normal [facility] Comment on above: Performed By: #### P T ####[place] [address] WBC (Leukocytes) 7.86 thou/cmm Normal 4.23-9.[address] [facility] Comment on above: Performed By: #### P T ####[place] [address] Abs Immature Grans 0.05 thou/cmm Normal 0.00-0.05 [facility] Comment on above: Performed By: #### P T ####[place] [address] Abs. Baso 0.03 thou/cmm Normal 0.01-0.[address] [facility] Comment on above: Performed By: #### P T ####[place] [address] Abs. Sheridan 0.76 thou/cmm Normal 0.30-0.[address] [facility] Comment on above: Performed By: #### P T ####[place] [address] Abs. Neut (ANC) 4.79 thou/cmm Normal 1.78-5.[address] [facility] Comment on above: Performed By: #### P T ####[place] [address] Basophils/100 WBC Auto (Bld) 0.4 % Normal [facility] Comment on above: Performed By: #### P T ####[facility] [place] [address] Eosinophils 0.36 thou/cmm Normal 0.04-0.[address] [facility] Comment on above: Performed By: #### P T ####[place] [address] Eosinophils/100 leukocytes 4.7 % Normal [facility] Comment on above: Performed By: #### P T ####[place] [address] Erythrocyte distribution width Auto Ratio (RBC) 16.0 % High 11.6-14.[address] [facility] Comment on above: Performed By: #### P T ####[place] [address] Erythrocytes (RBC) 2.77 mil/cmm Low 4.63-6.08 [facility] Comment on above: Performed By: #### P T ####[place] [address] Hematocrit (HCT) 25.6 % Low 40.1-51.[address] [facility] Comment on above: Performed By: #### P T ####[place] [address] Hemoglobin mass conc (Bld) 8.2 g/dL Low 13.7-17.[address] [facility] Comment on above: Performed By: #### P T ####[place] [address] Immature Grans 0.60 % Normal [facility] Comment on above: Performed By: #### P T ####[place] [address] Lymphocytes 1.74 thou/cmm Normal 0.84-2.[address] [facility] Comment on above: Performed By: #### P T ####[place] [address] Lymphocytes/100 leukocytes 22.5 % Normal [facility] Comment on above: Performed By: #### P T ####[place] [address] MCH 29.6 pg Normal 25.7-32.[address] [facility] Comment on above: Performed By: #### P T ####[facility] [place], [place] [address] MCHC mass conc (RBC) 32.0 % Low 32.3-36.5 [facility] Comment on above: Performed By: #### P T ####[address] [address] MCV 92.4 fL Normal 83.2-95.[address] [facility] Comment on above: Performed By: #### P T ####[address] [address] Monocytes/100 leukocytes 9.8 % Normal [facility] Comment on above: Performed By: #### P T ####[place] [address] Platelet mean volume (PMV) 9.9 fL Normal 8.7-12.[address] [facility] Comment on above: Performed By: #### P T ####[place] [address] Platelets 275 thou/cmm Normal 141-[address] [facility] Comment on above: Performed By: #### P T ####[address] [address] RDW SD 53.7 fl High 36.1-45.[address] [facility] Comment on above: Performed By: #### P T ####[address] [address] Seg Neutrophil 62.0 % Normal [facility] Comment on above: Performed By: #### P T ####[address] [address] WBC (Leukocytes) 7.72 thou/cmm Normal 4.23-9.[address] [facility] Comment on above: Performed By: #### P T ####[address] [address] MDRD GFRon 09-16-2017 eGFR (non-black) mL/min/{1.73_m2} Normal >60mL/m in/ 1.73m2 [facility] Comment on above: Result Comment: If t he patient is , multiply the result by 1.210. Performed By: #### P T ####[address] [address] Magnesium Bloodon 09-16-2017 Magnesium 2.1 mg/dL Normal 1.6-2.[address] [facility] Comment on above: Performed By: #### P T ####[address] [address] Magnesium 2.6 mg/dL Normal 1.6-2.[address] [facility] Comment on above: Result Comment: DISR EGARD RESULTS- SAMPLE INTEGRITY QUESTIONABLECORRECTED: Previous result = 2.6, verified at 04:43 on 09/16/17. Performed By: #### P T ####[address] [address] PLAN OF CAREon 09-16-2017 PLAN OF CARE HNO ID: [id number] thor: Gail Silva (Mechanical Artist)Service: PharmacyAuthor Type: PharmacistType: Plan of CareFiled: 09/16/2017 2:55 PMNote Text:MEDICATION HISTORY AND MEDICATION RECONCILIATIONPatient Name:[id number] 1945Source of history:Patient: Reliability of source: OTC medication nameand frequency and Pharmacy records: [facility] (p: [phone])Medication Nonadherence Identified: No barriers notedThe above information represents the best possible medication history: YesReconciliation completed? Yes All [facility] medications addressed by LIPAdditional comments: Medication list confirmed by patient's pharmacy.Medication list was accurate except for changes noted below, and allmedications were held on admission by LIP.Patient was only able to state what he was taking OTC (Preservision AREDSand Pepto-Bismol tablets).Please note the following changes:? Updated metoprolol frequency from q8h to twice daily? Updated directions for vitamin D2 capsules *please note the taper whichbegan 08/28/17*? Updated potassium chloride chloride frequency to once daily? Removed guaifenesin and prednisone? Removed carvedilol and lisinopril? Pharmacy last filled carvedilol 6.25 mg twice daily and lisinopril 20 mgdaily on 05/22/17Aspirin allergy was added. Per patient, he had an ulcer/GI bleed.-Patient should not continue to take Pepto-Bismol; this was conveyed tothe patient.Allergies:ALLERGIESAl lergen Reactions- Aspirin Other: See Comments GI bleed; ulcer bleedPreferred Pharmacy: [facility] in [place], [place] (p: [phone])Current [facility] Medications:Prior to Admission medications as of 09/16/17 1445Medication Sig Last Dose Takingmetoprolol tartrate, short acting, (LOPRESSOR) 50 mg tablet Take 50 mg bymouth twice daily. Yespotassium chloride 20 mEq TbER Take 20 mEq by mouth once daily. Yesergocalciferol, vitamin D2, (VITAMIN D) 50,000 unit capsule Take 50,000Units by mouth as directed. Take 1 capsule once weekly for 8 weeks, thentake 1 capsule once monthly thereafterFirst fill on 08/28/17 Yesdiltiazem CD (CARDIZEM CD, CARTIA XT) 240 mg 24 hr capsule Take 1 capsuleby mouth once daily. Yespantoprazole DR (PROTONIX) 40 mg tablet Take 1 tablet by mouth twicedaily. YesBismuth Subsalicylate (PEPTO-BISMOL) 262 mg tab Take 1 tablet by mouthtwice daily for 14 days. YesVit A,C,M-Rnkp-Vcmkej (PRESERVISION AREDS) 14,320-226-200 ukms-zw-rifzedt Take 1 capsule by mouth twice daily. Yesalbuterol (PROVENTIL) 2.5 mg /3 mL (0.083 %) nebulizer solution Use 2.5 mgvia nebulizer every 4 hours as needed for Wheezing/Shortness of Breath.Yespravastatin (PRAVACHOL) 40 mg tablet Take 40 mg by mouth once daily. Yesbudesonide-formoterol (SYMBICORT) 160-4.5 mcg/actuation inhaler Inhale 2Puffs as instructed twice daily. Yesfurosemide (LASIX) 40 mg tablet Take 40 mg by mouth twice daily. Ty SILVA, PHARMACY RESIDENTMay 2017 2:46 PM Normal [facility] PROGRESSon 09-16-2017 Protein mass conc HNO ID: [id number] thor: CANDICE Jensenervice: Hospital MedicineAuthor Type: PhysicianType: Progress NotesFiled: 09/16/2017 2:11 PMNote Text:[facility] MEDICINEPROGRESS NOTESERVICE DATE: 09/16/2017SERVICE TIME: 2:08 PMHospital Medicine/Primary Attending: Nick Sanchez MDNIGHT AND WEEKEND COVERAGE:After 7pm please page [phone] COMPLAINT: PUD, gastric outlet obstructionSUBJECTIVE: Weak, abd distention, noses discomfort from NGOBJECTIVE:PHYSICAL EXAM: BP 103/66 Pulse 70 Temp (Src) 98.2 (Oral) Resp 18 Ht 5' 9.016" (1.75m) Wt 180 lb 14.4 oz (82.1kg) SpO2 96% BMI 26.70kg/(m2).General - AANDOx3, NAD, CalmHEENT; NG in place, PERRLA, EOMICV -Irregularly irregular rhythm, S1 S2, No M/R/GRESP - Diminished breath sounds No wheezes, ronchi, ralesABD - soft, NT, ND +BSEXT - no gross joint deformity, no clubbing, cyanosis, edemaNEURO - CN II-XII grossly intact, no focal deficitsSkin: Warm dryMEDICATIONS:Current hospital medications:Parenteral Nutrition - Adult INTRAVENOUS ONCE TPN (1800 START)pantoprazole 40 mg injection (PROTONIX) 40 mg INTRAVENOUS BID AC(0600/1600)albuterol 2.5 mg /3 mL (0.083 %) 2.5 mg (PROVENTIL) 2.5 mg INHALATION q 4H PRNParenteral Nutrition - Adult INTRAVENOUS ONCE TPN (1800 START)digoxin 125 mcg injection (LANOXIN) 125 mcg INTRAVENOUS DAILYdextran 70-hypromellose 0.1-0.3 % 1 Drop ophthalmic drops (NATURAL BALANCETEARS) 1 Drop BOTH EYES PRNphenol 1 Nineveh (CHLORASEPTIC) 1 Nineveh MUCOUS MEMBRANE (TOPICAL MOUTH ANDTHROAT) q 2 H PRNbenzocaine-menthol 1 Lozenge (CEPACOL) 1 Lozenge MUCOUS MEMBRANE (TOPICALMOUTH AND THROAT) q 2 H PRNondansetron (PF) 4 mg injection (ZOFRAN) 4 mg INTRAVENOUS q 6 H PRNdilTIAZem 100 mg in D5W 100 mL ADD-Arvilla (CARDIZEM) 5-15 mg/hrINTRAVENOUS CONTINUOUS0.9% NaCl 10 mL 10 mL INTRAVENOUS q 12 H0.9% NaCl 20 mL 20 mL INTRAVENOUS PRNiv contrast (radiology procedure) INTRAVENOUS DIRECTED PRNenoxaparin 40 mg injection (LOVENOX) 40 mg SUBCUTANEOUS DAILYDATA:Diagnostic tests reviewed for today's visit:CBC:Recent Labs WBC 7.86RBC 2.95*HB 8.4*HCT 25.6*PLT 283MCV 86.8MCH 28.5MPV 9.4RDW 15.8*Coags: No results for input(s): INR, APTT in the last 24 hours.Invalid input(s): PTBMP:Recent Labs NA 140K 3.6CHLOR 107CO2 29BUN 6*CREAT 0.44*GLUC 135*CMP:Recent Labs NA 140K 3.6CHLOR 107CO2 29BUN 6*CREAT 0.44*GLUC 135*CA 8.0*MG 2.1ANION 8Cardiac Enzymes: No results for input(s): CK, MB, CKMB, TROPT in the last24 hours.Liver Function, Amylase, Lipase: No results for input(s): TPROT, ALB, ALT,AST, ALKPHOS, TBILI, AMYLASE, LIPASE, LACTATE in the last 24 hours.MG/PHOS:Recent Labs MG 2.1P 2.5Renal Panel:Recent Labs CREAT 0.44*BUN 6*GLUC 135*CA 8.0*P 2.5CHLOR 107K 3.6CO2 29NA 140Heme: No results for input(s): RETICP, ABSRETIC, LD, JEREMIE, FE, TIBC,TRANSFERSAT in the last 24 hours.No results found for: UALBCRAssessment/Plan1. Gastric outlet obstruction, PUD on EGD, s/p endoclip, EPI injection andIR embolization. On PPI2. Pancreatic mass, general surgery is following3. GI bleeding, HH stable4. Chronic normocytic anemia5. Afib RVR, rate in control, not on anticoagulation6. Nutrition; NG,TPN7. Hypokalemia, replaced and resolved?PT/OTVTE Prophylaxis: Lovenox 40mg Sub Q DailyDisposition: Acute RehabPlan of care discussed with: PatientSIGNATURE: Nick Sanchez MD PATIENT NAME: Cristina JeffreyDATE: September 16, 2017 : 2:08 PM PAGER/CONTACT #: Normal [facility] Phosphorus Bloodon 8 Phosphate 2.5 mg/dL Normal 2.5-4.[address] [facility] Comment on above: Performed By: #### P T ####[address] [address] Phosphate 4.9 mg/dL Normal 2.5-4.[address] [facility] Comment on above: Result Comment: DISR EGARD RESULTS- SAMPLE INTEGRITY QUESTIONABLECORRECTED: Previous result = 4.9, verified at 04:43 on 09/16/17. Performed By: #### P T ####[address] [address] THERAPY NTon 09-16-2017 THERAPY NT HNO ID: [id number] thor: Angela (Pt) Anny: Physical TherapyAuthor Type: Physical TherapistType: Therapy (PT/OT/Speech/Resp)Filed: 09/16/2017 3:36 PMNote Text:Physical Therapy EvaluationSERVICE DATE: 09/16/2017SERVICE TIME: 1419 to 1442ROOM: [id number] Discharge Disposition: Subacute/SNFJustification For Post Acute Needs: Anticipate that patient will requiredaily (5x/wk) skilled therapy in a post-acute facility setting at the timeof acute hospital dischargePT Recommendations to Nursing: Transfer to/from chair;OOB for Meals;Withassist of 1 personDevice: Wheeled Walker;Hand Held AssistPT 6 Clicks Score: 17Precautions/Activity Restrictions: Fall RiskASSESSMENT :Patient presents with 1-2 personal factors (sex,age, coping styles, socialbackground, education, overall behavior patterns that may influence howdisability is experienced) and/or comorbidities that impact currentfunction and ability to progress through a plan of care including: gastricobstruction, previous rehab stay.Upon examination of body systems (cardiovascular/pulm, integumentary,musculoskeletal , neuromuscular, andcommunication/affect/cogni tion/language/learning style) physical therapywill be addressing 1-2elements (body structures and functions, activitylimitation, and/or participation) including: musculoskeletal, decreasedactivity tolerance and participation.Lastly the patient's clinical presentation is evolving d/t changes inactivity tolerance (fluctuation in pain and variable response toactivty/prior treatment) requiring a low complexity in clinical decisionmaking.Patient Disposition at Start of Session: Supine in BedPatient Disposition at End of Session: Call [facility] in [place] (at EOB--RN andtech aware--to use call light when wants back)Tolerance Limited By FatiguePhysical Therapy Problem List: Decreased Activity Tolerance;FunctionalMobility Impairment;Balance ImpairedPatient /Caregiver Goals: Go To RehabGoals for Plan of Care:Transfer supine to/from sit with: SupervisionTransfer sit to/from stand with: SupervisionAmbulate with: SupervisionDistance: 65q7Odotuy: Wheeled WalkerGoal: sit to/from stand x 10 reps with SBARehab Potential: GoodPLAN:Treatment Frequency (times per week): 5 (1-4) Current admissionTreatment Interventions: Functional Mobility Training;BalanceTraining;Educ ation;StrengtheningPlan of Care developed with: PatientTREATMENT INTERVENTIONS:Therapy Diagnosis: Reduced mobility-other;Unsteadiness onfeet;Abnormalities of gait and mobility-otherInterventions Provided: Evaluation;Therapeutic Activity (00753)$ Evaluation-Moderate (46643) Billed Units: 1 unitTherapeutic Activity (89945) Treatment Minutes: 81 unitSkilled Intervention(s):Educated pt on role of PT in acute care especially discharge planning-- ptagreeable to whatever he needs at d/c Instructed patient in supine to and from sit pushing with upperextremities to sit up--completed with contact guard assist--instruct inlog roll techniqueInstruction in sit to and from stand technique with proper hand placementand body positioning at edge of bed/chair--needed contact guard assist tocomplete--instruct in hand placement and safety with each transferAble to take side steps along edge of bed--unsteady but no LOBTotal Timed Code Treatment Minutes: 8Total Treatment Time (minutes): 23FUNCTIONAL G CODE:PT 6 Clicks Score: 17 (09/16/17 1419)Mobility: Walking and Moving Around Current Status (G8978): CK ()Mobility: Walking and Moving Around Goal Status (G8979): CJ ()Based on clinical assessment and the score on the 6 Clicks FunctionalAssessment Tool, the G code and corresponding severity modifiers aredocumented above.SUBJECTIVE:Current Hospital Course: Chart reviewed; presented to ED after being in Afib with RVR prior to endoscopy--was sent here instead of having procedureReason for Physical Therapy Consult : pmpRelevant Past Medical History: gastric blockage; ulcers; previous rehabstayPatient Report: seen on 4199--no c/o pain--agreeable to PT/mobilityHome EnvironmentPatient Lives With: Self/AloneAssistance Available: PRNPrior Functional Level: Within Functional LimitsOBJECTIVE:CURRENT FUNCTIONAL STATUS:Current Functional Mobility Assist Level Additional InformationRollingSupine to Sit Contact Guard AssistanceSit to SupineScootingSit to Stand Contact Guard AssistanceStand to Sit Contact Guard AssistanceBed to ChairToilet/CommodeGait Contact Guard Assistance Gait Device: Hand Held Assist Gait Distance (feet): couple side steps along eOBStairsCurb StepCar TransferGeneral Gait Deviations: Fabiola decreased;Step length decreasedPlease see discipline specific clinical documentation flowsheet forcomplete details for this therapy evaluation/treatment.SIGNATAHMET E: Angela Brown PT PATIENT NAME: Cristina JeffreyDATE: September 16, 2017 : 3:30 PM PAGER/CONTACT #: [phone] [facility] ANES Paras 09-15-2017 ANES POST HNO ID: [id number] thor: Aubrey TsuiService: AnesthesiologyAuthor Type: PhysicianType: Anesthesia PostOpFiled: 09/15/2017 12:16 PMNote Text:POST ANESTHESIA EVALUATION NOTESERVICE DATE: 09/15/2017SERVICE TIME: 1215DOB: 1945Vitals: 09/15/1815 05/25/291663Nezz: 36.1 ?C (97 ?F) 36.1 ?C (97 ?F) 36.7 ?C (98.1 ?F) 36.4 ?C (97.5 ?F) 828209/15/1810BP: 106/68 117/68 107/71 96/60 828209/15/1810Pulse: (!) 125 119 107 106 823 828 Resp: 18 18 22 20 09/16/1807SpO2: 95% 99% 99% 99%Validated Vital Signs: YesPOST ANES STATUS: No apparent anesthetic complications. The patient isappropriately hydrated with stable respiratory and cardiovascular status.Patient has safe and adequate airway control. The patient has appropriatepain relief and no significant post operative nausea or vomiting. Thepatient has achieved baseline mental status.Further assessment by Anesthesia Service: NoneOther Remarks: Pt awake AND alert; answered questions fluently andappropriatelySIGNATURE: Aubrey Bueno MD PATIENT NAME: Cristina JeffreyDATE: September 15, 2017 : 12:15 PM PAGER/CONTACT #: Nusrat [facility] ANES PREOPon 09-15-2017 ANES PREOP HNO ID: [id number] thor: Aubrey Mccannervice: AnesthesiologyAuthor Type: PhysicianType: Anesthesia PreOpFiled: 09/15/2017 12:05 PMNote Text: ANESTHESIOLOGY DAY OF SURGERY NOTESERVICE DATE: 09/15/2017SERVICE TIME: 824DOB: 1945Procedure(s) (LRB):EGD (Left)EGD WITH BIOPSY (Left)ENDOSCOPY UPPER GI W/ DILATION GASTRIC OUTLET FOR OBSTRUCTIONBALLOON/GUIDEWIRE (Left)Surgeon(s):Sagar Cornell MirEstimated body mass index is 27.16 kg/m? as calculated from the following: Height as of this encounter: 175.3 cm (5' 9.02"). Weight as of this encounter: 83.5 kg (184 lb).Most recent hematocrit and potassium results:Hematocrit 26.8 09/15/2017Potassium 3.0 09/15/2017ANES DOS/PREOP NOTE:Vitals: 752 823 8 142BP: 117/68 107/71 96/60Pulse: 119 107 106Resp: 18 22 20Temp:TempSrc:SpO2: 99% 99% 99%Weight: 83.5 kg (184 lb)Height:ACTIVE PROBLEM LISTShock (Hcc)Copd (Chronic Obstructive Pulmonary Disease) ([facility])HypertensionHyperlipidem iaGI BleedingAcute Respiratory Failure With Hypoxia and Hypercapnia (Hcc)Acute Blood Loss AnemiaHemorrhagic Shock (Hcc)HypophosphatemiaAtrial Fibrillation With Rapid Ventricular Response ([facility])Severe Protein-Calorie Malnutrition ([facility])Atrial Fibrillation With Rvr ([facility])HematemesisGastric Outlet ObstructionPAST MEDICAL HISTORYDiagnosis Date- Afib (HCC)- CHF (congestive heart failure) (HCC)- COPD (chronic obstructive pulmonary disease) (HCC)- HypertensionPAST SURGICAL HISTORYProcedure Laterality Date- EGD 06/21/2017 Multiple antral ulcers with 1 large ulcer with a visible vessel at itsbase as the source of bleeding. A large ulcer at the pre-pyloric region- EGD 06/23/2017 NG tube induced mucosal tear at GE junction, without bleeding. Multipleulcers at distal antrum and pyloric channel with significant deformity.Previously Endoclipped and epinephrine injected ulcer is not bleeding andvisible vessel has resolved. Large pyloric channel ulcer with deformityand stenosis with intermittent oozing of blood diffusely without anyvisible vessel. Normal duodenum- TUMOR REMOVAL (SPECIFY LOCATION) HX breast, childhoodNo family history on file.Social History:Social HistorySubstance Use Topics- Smoking status: Never Smoker- Smokeless tobacco: Never Used- Alcohol use No Comment: quit 6 months agoNo current facility-administered medications on file prior to encounter.Current Outpatient Prescriptions on File Prior to Encounter:ergocalciferol, vitamin D2, (VITAMIN D) 50,000 unit capsule Take 50,000Units by mouth once each week.potassium chloride 20 mEq/kg/dose once daily.carvedilol (COREG) 12.5 mg tabletlisinopril (ZESTRIL, PRINIVIL) 20 mg tabletpredniSONE (DELTASONE) 10 mg tabletmetoprolol tartrate, short acting, (LOPRESSOR) 50 mg tablet Take 1 tabletby mouth every 8 hours.diltiazem CD (CARDIZEM CD, CARTIA XT) 240 mg 24 hr capsule Take 1 capsuleby mouth once daily.pantoprazole DR (PROTONIX) 40 mg tablet Take 1 tablet by mouth twicedaily.Bismuth Subsalicylate (PEPTO-BISMOL) 262 mg tab Take 1 tablet by mouthtwice daily for 14 days.Vit A,C,T-Oerw-Izdxve (PRESERVISION AREDS) 14,320-226-200 isbs-cz-uclkyhk Take 1 capsule by mouth twice daily.albuterol (PROVENTIL) 2.5 mg /3 mL (0.083 %) nebulizer solution Use 2.5 mgvia nebulizer every 4 hours as needed for Wheezing/Shortness of Breath.pravastatin (PRAVACHOL) 40 mg tablet Take 40 mg by mouth once daily.budesonide-formoterol (SYMBICORT) 160-4.5 mcg/actuation inhaler Inhale 1Puff as instructed twice daily.guaiFENesin (MUCINEX) 600 mg 12 hr tablet Take 1,200 mg by mouth twicedaily.furosemide (LASIX) 40 mg tablet Take 40 mg by mouth twice daily.Current Facility-Administered Medications:[MAR Hold due to Transfer] albuterol 2.5 mg /3 mL (0.083 %) 2.5 mg(PROVENTIL) 2.5 mg INHALATION q 4 H PRN Ahmad H (Res) Ababneh 2.5 mg at09/15/17 0226[MAR Hold due to Transfer] Parenteral Nutrition - Adult INTRAVENOUS ONCETPN (1800 START) H Radha Castle[MAR Hold due to Transfer] potassium phosphate 30 mmol in NaCl 0.9% 250 mL30 mmol INTRAVENOUS ONCE H Radha Castle[MAR Hold due to Transfer] phenol 1 Nineveh (CHLORASEPTIC) 1 Nineveh MUCOUSMEMBRANE (TOPICAL MOUTH AND THROAT) q 2 H PRN Safal N (Res) Avalos 1 Nineveh at09/14/17 1105[MAR Hold due to Transfer] benzocaine-menthol 1 Lozenge (CEPACOL) 1Lozenge MUCOUS MEMBRANE (TOPICAL MOUTH AND THROAT) q 2 H PRN Safal N (Res)Avalos[MAR Hold due to Transfer] Parenteral Nutrition - Adult INTRAVENOUS ONCETPN (2199 START) Noe Quick Last Rate: 100 mL/hr at 09/14/17 1800[MAR Hold due to Transfer] ondansetron (PF) 4 mg injection (ZOFRAN) 4 mgINTRAVENOUS q 6 H PRN Annel (Res) Boufford 4 mg at 09/13/17 0013[MAR Hold due to Transfer] dilTIAZem 100 mg in D5W 100 mL ADD-Arvilla(CARDIZEM) 5-15 mg/hr INTRAVENOUS CONTINUOUS Safal N (Res) Avalos LastRate: 12.5 mL/hr at 09/15/17 0653 12.5 mg/hr at 09/15/17 0653[MAR Hold due to Transfer] 0.9% NaCl 10 mL 10 mL INTRAVENOUS q 12 H SafalN (Res) Avalos 10 mL at 09/14/17 1932[MAR Hold due to Transfer] 0.9% NaCl 20 mL 20 mL INTRAVENOUS PRN Safal N(Res) Avalos[MAR Hold due to Transfer] iv contrast (radiology procedure) INTRAVENOUSAS DIRECTED PRN Raul (Res) Christian[MAR Hold due to Transfer] enoxaparin 40 mg injection (LOVENOX) 40 mgSUBCUTANEOUS DAILY Annel (Res) [place] 40 mg at 09/14/17 0849[MAR Hold due to Transfer] pantoprazole 40 mg injection (PROTONIX) 40 mgINTRAVENOUS DAILY (6 AM) Annel (Res) [place] 40 mg at 09/15/17 0531Allergies: ALLERGIESNo Known AllergiesDOS EXAM: Adequate NPO status: YesAnesthetic risks, benefits, alternatives, personnel and consent discussed:YesPatient agrees to proceed: YesPrevious Anesthesia: No history of adverse event.Airway Assessment: MP 3; Neck ROM: Limited Extension; Airway Evaluation:No significant abnormalitiesSymptoms of Sleep Apnea: NoneDentition: Poor dentitionAdditional Physical Exam:Lungs: Lungs clear to auscultation. Good diaphragmatic excursion.Cardiac: Irregular rhythm, tachycardic, no murmurs heardAdditional Pertinent Findings: N/ABlood Products: Not anticipated for this procedure.Anesthetic Plan: MAC with Sedation and Standard ASA MonitorsPain Management Plan: Parenteral or OralASA Class: 3Other Medical Problems: NoneChronic Beta Alex medication administered within 24 hours: David have interviewed and examined the patient. I have reviewed the medicalrecord and/or the pre-anesthesia evaluation, pertinent labs, and testresults.Significant changes in the patient's condition since the History andPhysical, not otherwise documented in primary service progress notes: [facility] updated information obtained within 48 hours ofSurgery/Procedure.SIGNATURE : Aubrey Bueno MD PATIENT NAME: Cristina JeffreyDATE: September 15, 2017 : 12:03 PM CSN: [id number] Normal [facility] Basic Panelon 09-15-2017 Creatinine 0.50 mg/dL Low 0.67-1.[address] [facility] Comment on above: Performed By: #### P T ####[place] [address] Glucose mass conc 165 mg/dL High 70-[address] [facility] Comment on above: Performed By: #### P T ####[place] [address] Urea nitrogen 6 mg/dL Low 7-[address] [facility] Comment on above: Performed By: #### P T ####[place] [address] Anion gap 9 mmol/L Normal 8-[address] [facility] Comment on above: Performed By: #### P T ####[place] [address] Calcium 7.8 mg/dL Low 8.5-10.[address] [facility] Comment on above: Performed By: #### P T ####[place] [address] CO2 28 mmol/L Normal 21-[address] [facility] Comment on above: Performed By: #### P T ####[place] [address] Chloride 104 mmol/L Normal 98-[address] [facility] Comment on above: Performed By: #### P T ####[place] [address] Potassium molar conc 3.0 mmol/L Low 3.5-5.1 [facility] Comment on above: Performed By: #### P T ####[place] [address] Sodium 138 mmol/L Normal 136-[address] [facility] Comment on above: Performed By: #### P T ####[place] [address] CASE MANAGEMon 09-15-2017 CASE MANAGEM HNO ID: [id number] thor: Lakia (Rn) KELLY Guillenervice: Care ManagementAuthor Type: Registered NurseType: Care Mgt Progress NoteFiled: 09/15/2017 12:10 PMNote Text:CARE MANAGEMENT PROGRESS NOTESERVICE DATE: 09/15/2017SERVICE TIME: 12:09 PM LOS: 3 daysNeeds Prior to Discharge: To Be DeterminedEGD today. On cardizem gtt. From home, independent [employer]. PT/OT evalsordered today and pending. Await recs to assist with DC planningSIGNATURE: Lakia Guillen RN PATIENT NAME: Cristina JeffreyDATE: September 15, 2017 : 12:09 PM PAGER/CONTACT #: [phone] Normal [facility] Gastrinon 09-15-2017 Gastrin SEE BELOW Normal [facility] Comment on above: Result Comment: Chaya rin 63 <115.0 pg/mLPerforming Laboratory:[facility] [address] [place] [address] Performed By: #### P T ####[place] [address] Hemogram/Diffon 09-15-2017 Abs Immature Grans 0.07 thou/cmm High 0.00-0.05 [facility] Comment on above: Performed By: #### P T ####[place] [address] Abs. Baso 0.03 thou/cmm Normal 0.01-0.[address] [facility] Comment on above: Performed By: #### P T ####[facility] [place] [address] Abs. Sheridan 0.84 thou/cmm High 0.30-0.[address] [facility] Comment on above: Performed By: #### P T ####[place] [address] Abs. Neut (ANC) 5.83 thou/cmm High 1.78-5.[address] [facility] Comment on above: Performed By: #### P T ####[place] [address] Basophils/100 WBC Auto (Bld) 0.3 % Normal [facility] Comment on above: Performed By: #### P T ####[place] [address] Eosinophils 0.26 thou/cmm Normal 0.04-0.[address] [facility] Comment on above: Performed By: #### P T ####[place] [address] Eosinophils/100 leukocytes 2.9 % Normal [facility] Comment on above: Performed By: #### P T ####[place] [address] Erythrocyte distribution width Auto Ratio (RBC) 15.0 % High 11.6-14.[address] [facility] Comment on above: Performed By: #### P T ####[place] [address] Erythrocytes (RBC) 3.09 mil/cmm Low 4.63-6.08 [facility] Comment on above: Performed By: #### P T ####[place] [address] Hematocrit (HCT) 26.8 % Low 40.1-51.[address] [facility] Comment on above: Performed By: #### P T ####[place] [address] Hemoglobin mass conc (Bld) 8.7 g/dL Low 13.7-17.[address] [facility] Comment on above: Performed By: #### P T ####[facility] [place], [place] [address] Immature Grans 0.80 % Normal [facility] Comment on above: Performed By: #### P T ####[facility] [place], [place] [address] Lymphocytes 2.08 thou/cmm Normal 0.84-2.[address] [facility] Comment on above: Performed By: #### P T ####[address] [address] Lymphocytes/100 leukocytes 22.8 % Normal [facility] Comment on above: Performed By: #### P T ####[address] [address] MCH 28.2 pg Normal 25.7-32.[address] [facility] Comment on above: Performed By: #### P T ####[address] [address] MCHC mass conc (RBC) 32.5 % Normal 32.3-36.5 [facility] Comment on above: Performed By: #### P T ####[address] [address] MCV 86.7 fL Normal 83.2-95.[address] [facility] Comment on above: Performed By: #### P T ####[address] [address] Monocytes/100 leukocytes 9.2 % Normal [facility] Comment on above: Performed By: #### P T ####[address] [address] Platelet mean volume (PMV) 9.7 fL Normal 8.7-12.[address] [facility] Comment on above: Performed By: #### P T ####[address] [address] Platelets 256 thou/cmm Normal 141-[address] [facility] Comment on above: Performed By: #### P T ####[place] [id number] RDW SD 47.3 fl High 36.1-45.[address] [facility] Comment on above: Performed By: #### P T ####[place] [address] Seg Neutrophil 64.0 % Normal [facility] Comment on above: Performed By: #### P T ####[place] [id number] WBC (Leukocytes) 9.11 thou/cmm High 4.23-9.[address] [facility] Comment on above: Performed By: #### P T ####[place] [id number] MDRD GFRon 09-15-2017 eGFR (non-black) mL/min/{1.73_m2} Normal >60mL/m in/ 1.73m2 [facility] Comment on above: Result Comment: If t he patient is , multiply the result by 1.210. Performed By: #### P T ####[place] [id number] Magnesium Bloodon 09-15-2017 Magnesium 2.1 mg/dL Normal 1.6-2.[address] [facility] Comment on above: Performed By: #### P T ####[place] [id number] NURSING PROGon 09-15-2017 Protein mass conc HNO ID: [id number] Author: Gail (Rn) Saranya RN Service: Nursing Author Type: Registered Nurse Type: Nursing Progress Note Filed: 09/15/2017 12:26 PM Note Text: Transporters here Normal [facility] Protein mass conc HNO ID: [id number] thor: Melissa (Rn) KELLY Rowleyervice: NursingAuthor Type: Registered NurseType: Nursing Progress NoteFiled: 09/15/2017 8:09 AMNote Text:0805: Dr Breaux resident called endo, she wants the NG inserted to 60cmand LIWS with positive output.NG advanced from 30cm to 60cm and dark brown output 50cm collected withLIWS. Normal [facility] Protein mass conc HNO ID: [id number] Author: Olga (Rn) GREGORY Cochran Service: Nursing Author Type: Registered Nurse Type: Nursing Progress Note Filed: 09/14/2017 10:42 PM Note Text: Report called to Celena SEWELL, 4200. [facility] NUTRITIONon 09-15-2017 NUTRITION HNO ID: [id number] thor: Trish Gaming) OUMOU Santoservice: NST-Nutrition Support TeamAuthor Type: Registered DietitianType: NutritionFiled: 09/15/2017 10:29 AMNote Text: At testation signed by Rimma Castle at 09/15/2017 10:53 AMDiscussed with the RD and agree with RD's findings and plan as documented inthe RD's note.A/P Gastric outlet obstructionUnable to tolerate po diet. Will cont TPN and monitor electrolytesHypokalemic and hypophosphatemic- replacingRimma Castle MD NUTRI TION SUPPORT TEAMTOPIC: NUTRITION SUPPORT TEAM PROGRESS NOTEPATIENT NAME: Cristina JeffreyN: [id number] OF : 1945DATE: 09/15/2017Nutritional Status: SEVERE PROTEIN-CALORIE MALNUTRITION-ACUTE?In the context of Acute Illness or Injury based on:Unintentional Weight Loss: 1-2% over 1 weekInsufficient Energy Intake: less than or equal to 50% for greater than orequal to 5 daysSome mild muscle loss noted?NUTRITION CARE PLAN:?Problem, Etiology and Signs/Symptoms:Alternative nutrition route needed related to gastric outlet obstructionas evidenced by HPI, need for TPNNew NST consult, as pt transferred out of ICU on TPN 09/15/17Interval History: LOS d 3, tolerating TPN, transferred out of unit [id number], remains NPO with NGT , No BM documented, no pain, + abdomendistention, labs c/w refeeding syndromeAssessment: 72 year old male who presented to the ED after being sentfrom endoscopy. ?He was scheduled for EGD and the procedure was notperformed because patient went into a-fib with RVR. ?He is not onanticoagulation. ?He was recently admitted for UGI bleed that requiredbranches of the GDA and gastroepiploic artery embolized on 06/23/2017. ?Hehad 2 EGDs that admission with clips/epi administration. ?He has recurrentgastric ulcers for the majority of his life according to patient.+ 5-8 lb weight loss over the past few months. ?He has been vomiting forthe past day.?No fever/chill, SOB, dizziness.?He is having bowel function and has been passing gas.09/15/17 EGD todayTmax: 36.7WBC: 9.11Edema: Generalized, non pittingLines: 2L right arm PICC placed 09/13/17-WNLLytes: reviewedUOP: 3.715 LNGT: 300 mlPAB: 12.8Recommendations: TPN renewed: Increased KCL, phos bolus ordered ,axillary orders completedTPN script: 2.4 L /24 hrs providing 2028 calories ( 28 kcals/kg IBW 71kg) and 107 gms pro ( 1.4 gms /kg IBW 71 kg ) per dayCollaborated with Dr Castle and orders written. Jazmín ls:Temperature Max in 24 hours: Temp (24hrs), Av.3 ?C (97.4 ?F), Min:36.1?C (97 ?F), Max:36.7 ?C (98.1 ?F)Current Vital Signs: BP 107/71 Pulse 107 Temp 36.4 ?C (97.5 ?F)(Oral) Resp 22 Ht 175.3 cm (5' 9.02") Wt 83.5 kg (184 lb) GoA311% BMI 27.16 kg/m?Current Weight: Weight: 83.5 kg (184 lb)Intake AND Output:Intake/Output Summary (Last 24 hours) at 09/15/17 1014Last data filed at 09/15/17 0628 Gross per 24 hourIntake 1162.2 mlOutput 3315 mlNet -2152.8 mlLaboratory Data:Recent Labs 09/14/1802NA 138 137 135* 131*K 3.0* 3.5 4.1 3.3*CHLOR 104 108* 106 93*CO2 28 23 27 30CREAT 0.50* 0.52* 0.67 0.84BUN 6* 10 20* 34*GLUC 165* 72 90 92P 1.5* 1.3* -- --TPROT -- -- -- 6.2*ALB -- -- -- 3.2*MG 2.1 2.1 -- 1.8CA 7.8* 7.0* 7.8* 9.3Recent Labs PREALB 12.8*Trish Santos, CLAYTON, LD, CNSCPager: [phone]: 3 Normal [facility] OPERATIVE NOon 09-15-2017 OPERATIVE NO HNO ID: [id number] thor: Sagar Cornell MirService: GastroenterologyAuthor Type: PhysicianType: Operative ReportFiled: 09/19/2017 12:44 PMNote Text:[facility] - Operative ReportSURGEON: Sagar Dominguez MDPATIENT NAME: CRISTINA JEFFREY TMRN: [id number] CSN: [id number] OF SURGERY: 09/15/2017DATE OF : 1945 SEX/AGE: M/72PATIENT TYPE: I HOSP SVC: INT LOCATION: [id number] OF SURGERY: 09/15/2017SURGEON: LIGIA AlcarazEFERRLOCO PHYSICIANS: Chitra Del Valle MD and ENRIQUE AkersROCEDURE PERFORMED: EGD with balloon dilation and biopsies of theantrum.MEDICATION GIVEN: MAC sedation.PREOPERATIVE DIAGNOSES:1. Probable gastric outlet obstruction.2. Recent past history of gastric outlet ulcer disease with activebleeders, status post EGD and Endoclip placement.3. Evidence of gastric outlet obstruction on imaging studies.4. Pancreatic cystic lesion.INDICATION FOR THE PROCEDURE: This 72-year-old male patient was initiallyscheduled for a followup EGD for confirmation of healing of the gastricoutlet ulcers, which were actively bleeding several weeks ago. Theprocedure wascanceled 4 days ago and the patient was admitted to the intensive careunitbecause of gastric outlet obstruction and atrial fibrillation with RVR.The patient has shown signs of gastric outlet obstruction and has been onNG tube. The patient's CT scan showed high-grade gastric outletobstruction. There is a fluid density mass within the head of thepancreas.TECHNIQUE: Informed consent was obtained. The patient was placed in leftlateral position. IV sedation was given by [employer] MANAGER. Vital signs weremonitored throughout the procedure.The NG tube was taken out. A video endoscope was then passed per oralroute into the esophagus and advanced into the stomach. Large amount ofundigested and partially digested food was noted. Some of it could besuctioned out, but the rest of it had to be left alone. Scope could notgo into the pyloric region on account of the dilated stomach. So, thescope was taken out.A pediatric videocolonoscope was advanced up to the gastric outlet.Previously noted large ulcer measuring approximately 3 cm x 1.5 cm wasnoted in the distal antrum. Antral wall was noted to be somewhatindurated. Pyloric channel,however, was noted to be strictured. The scope was passed past thepyloricchannel and advanced into the duodenal bulb, which showed approximately 4cm cavernous type of an ulcer with whitish base without any exudate. Offto the side the duodenal apex was noted to be highly strictured. A 12 mmballoon was used to dilate it. One could see into the duodenal bulb anddescending duodenum, however, it was elected to pull the scope out andhave the case be handled surgically. Biopsies were taken from the antrumfor histology and H. pylori. Scope was then taken out. An NG tube wasthen replaced.FINDINGS:1. Gastric outlet obstruction secondary to peptic ulcer disease, doubtneoplasm. 2. Probably locally penetrating or locally containedperforation of a previously perforated duodenal ulcer.RECOMMENDATION: We will place the patient back on NG suction and awaitsurgical intervention.Sagar Dominguez MDGastroenterologyGM:modlD: 09/15/2017 11:34:34T: 09/15/2017 21:35:40Job #: [id number]:Ashly Mayo MD [facility] PROGRESSon 09-15-2017 Protein mass conc HNO ID: [id number] thor: CANDICE Jensenervice: Hospital MedicineAuthor Type: PhysicianType: Progress NotesFiled: 09/16/2017 2:08 PMNote Text:[facility] MEDICINEPROGRESS NOTESERVICE DATE: 09/15/2017SERVICE TIME: 7:39 PMHospital Medicine/Primary Attending: Nick Sanchez MDNIGHT AND WEEKEND COVERAGE:After 7pm please page [phone] COMPLAINT: GI bleedingSUBJECTIVE: discomfort in noses form NT, on TF, weakOBJECTIVE:PHYSICAL EXAM: BP 111/61 Pulse 114 Temp (Src) 97.9 (Oral) Resp 20 Ht 5' 9.016" (1.75m) Wt 184 lb (83.5kg) SpO2 98% BMI 27.16 kg/(m2).General - AANDOx3, NAD, CalmHEENT; NG in place, PERRLA, EOMICV -Irregularly irregular rhythm, S1 S2, No M/R/GRESP - Diminished breath sounds No wheezes, ronchi, ralesABD - soft, NT, ND +BSEXT - no gross joint deformity, no clubbing, cyanosis, edemaNEURO - CN II-XII grossly intact, no focal deficitsSkin: Warm dryMEDICATIONS:Current hospital medications:albuterol 2.5 mg /3 mL (0.083 %) 2.5 mg (PROVENTIL) 2.5 mg INHALATION q 4H PRNParenteral Nutrition - Adult INTRAVENOUS ONCE TPN (1800 START)digoxin 125 mcg injection (LANOXIN) 125 mcg INTRAVENOUS DAILYdextran 70-hypromellose 0.1-0.3 % 1 Drop ophthalmic drops (NATURAL BALANCETEARS) 1 Drop BOTH EYES PRNphenol 1 Nineveh (CHLORASEPTIC) 1 Nineveh MUCOUS MEMBRANE (TOPICAL MOUTH ANDTHROAT) q 2 H PRNbenzocaine-menthol 1 Lozenge (CEPACOL) 1 Lozenge MUCOUS MEMBRANE (TOPICALMOUTH AND THROAT) q 2 H PRNondansetron (PF) 4 mg injection (ZOFRAN) 4 mg INTRAVENOUS q 6 H PRNdilTIAZem 100 mg in D5W 100 mL ADD-Arvilla (CARDIZEM) 5-15 mg/hrINTRAVENOUS CONTINUOUS0.9% NaCl 10 mL 10 mL INTRAVENOUS q 12 H0.9% NaCl 20 mL 20 mL INTRAVENOUS PRNiv contrast (radiology procedure) INTRAVENOUS DIRECTED PRNenoxaparin 40 mg injection (LOVENOX) 40 mg SUBCUTANEOUS DAILYpantoprazole 40 mg injection (PROTONIX) 40 mg INTRAVENOUS DAILY (6 AM)DATA:Diagnostic tests reviewed for today's visit:CBC:Recent Labs 300WBC 9.11*RBC 3.09*HB 8.7*HCT 26.8*PLT 256MCV 86.7MCH 28.2MPV 9.7RDW 15.0*Coags: No results for input(s): INR, APTT in the last 24 hours.Invalid input(s): PTBMP:Recent Labs 300NA 138K 3.0*CHLOR 104CO2 28BUN 6*CREAT 0.50*GLUC 165*CMP:Recent Labs 300NA 138K 3.0*CHLOR 104CO2 28BUN 6*CREAT 0.50*GLUC 165*CA 7.8*MG 2.1ANION 9Cardiac Enzymes: No results for input(s): CK, MB, CKMB, TROPT in the last24 hours.Liver Function, Amylase, Lipase: No results for input(s): TPROT, ALB, ALT,AST, ALKPHOS, TBILI, AMYLASE, LIPASE, LACTATE in the last 24 hours.MG/PHOS:Recent Labs [id number] 2.1P 1.5*Renal Panel:Recent Labs [id number] 0.50*BUN 6*GLUC 165*CA 7.8*P 1.5*CHLOR 104K 3.0*CO2 28NA 138Heme: No results for input(s): RETICP, ABSRETIC, LD, JEREMIE, FE, TIBC,TRANSFERSAT in the last 24 hours.No results found for: UALBCRAssessment/Plan1. Gastric outlet obstruction, PUD, s/p endoclip, EPI injection and IRembolization. On PPI2. Pancreatic mass, general surgery is following3. GI bleeding, on PPI, HH stable4. Chronic normocytic anemia5. Afib RVR, rate in control, not on anticoagulation6. Nutrition; NG,TPN7. Hypokalemia, replaced and resolvedPT/OTVTE Prophylaxis: Lovenox 40mg Sub Q DailyDisposition: Acute RehabPlan of care discussed with: PatientSIGNATURE: Nick Sanchez MD PATIENT NAME: Cristina JeffreyDATE: September 15, 2017 : 7:39 PM PAGER/CONTACT #: Nusrat [facility] Protein mass conc HNO ID: [id number] thor: Giselle ([facility]) CroomService: ElectrophysiologyAuthor Type: Nurse PractitionerType: Progress NotesFiled: 09/15/2017 4:46 PMNote Text:[facility] PROGRESS NOTE: CARDIOLOGY SERVICESERVICE DATE: 09/15/2017SERVICE TIME: 4:24 PMSubjectiveINTERIM HISTORY: Cristina Jeffrey is laying in the bed, he is s/p EGDtoday. He denies CP, palpitations, dizziness, syncope. He has SOB.ObjectivePHYSICAL EXAM:Body mass index is 27.16 kg/m?.O2 Therapy: Nasal CannulaNo Data RecordedPatient Vitals for the past 24 hrs: BP Temp Temp src Pulse Resp SpO2 Edychu82/25/18 1500 111/61 36.6 ?C (97.9 ?F) Oral 114 20 98 % -09/15/17 1200 112/65 36.7 ?C (98.1 ?F) Axillary 110 20 99 % -09/15/17 1142 96/60 - - 106 20 99 % -09/15/17 0828 107/71 - - 107 22 99 % -09/15/17 0823 117/68 - - 119 18 99 % -09/15/17 0752 - - - - - - 83.5 kg (184 lb)09/15/17 0300 106/68 36.4 ?C (97.5 ?F) Oral (!) 125 18 95 % -09/15/17 0226 - - - 107 18 96 % -09/14/17 2255 116/66 36.7 ?C (98.1 ?F) Oral 119 20 100 % -09/14/17 2200 111/64 - - 107 27 100 % -09/14/17 2100 109/63 - - 102 24 100 % -09/14/17 2050 - - - 104 23 99 % -09/14/17 2000 107/69 - - 105 28 100 % -09/14/17 1900 103/68 - - 94 28 99 % -09/14/17 1800 106/64 - - 94 21 99 % -09/14/17 1700 100/67 - - 92 26 99 % -09/14/17 1655 - - - 94 23 100 % -Pleasant, comfortable, not in acute distress.Awake, alert, oriented times 3.Moves all extremities.SKIN: No rash or lumps.NOSE: NG tube intact.NECK: Supple, no JVD, no carotid bruit, no thyromegaly.LUNGS: Clear to auscultation bilaterally.CARDIAC: irregular, irregular S1, S2, no murmur, gallop or rub,ABDOMEN: Soft, nontender, bowel sounds present.EXTREMITIES: No edema.PULSES: Peripheral pulses present.MEDICATIONS:Current hospital medications:albuterol 2.5 mg /3 mL (0.083 %) 2.5 mg (PROVENTIL) 2.5 mg INHALATION q 4H PRNParenteral Nutrition - Adult INTRAVENOUS ONCE TPN (1800 START)potassium phosphate 30 mmol in NaCl 0.9% 250 mL 30 mmol INTRAVENOUS ONCEphenol 1 Nineveh (CHLORASEPTIC) 1 Nineveh MUCOUS MEMBRANE (TOPICAL MOUTH ANDTHROAT) q 2 H PRNbenzocaine-menthol 1 Lozenge (CEPACOL) 1 Lozenge MUCOUS MEMBRANE (TOPICALMOUTH AND THROAT) q 2 H PRNParenteral Nutrition - Adult INTRAVENOUS ONCE TPN (2199 START)ondansetron (PF) 4 mg injection (ZOFRAN) 4 mg INTRAVENOUS q 6 H PRNdilTIAZem 100 mg in D5W 100 mL ADD-Arvilla (CARDIZEM) 5-15 mg/hrINTRAVENOUS CONTINUOUS0.9% NaCl 10 mL 10 mL INTRAVENOUS q 12 H0.9% NaCl 20 mL 20 mL INTRAVENOUS PRNiv contrast (radiology procedure) INTRAVENOUS DIRECTED PRNenoxaparin 40 mg injection (LOVENOX) 40 mg SUBCUTANEOUS DAILYpantoprazole 40 mg injection (PROTONIX) 40 mg INTRAVENOUS DAILY (6 AM)DATA:Diagnostic tests reviewed for today's visit:Most recent labsMost recent telemetryPast 72 Hour Labs:Recent Labs 300WBC 9.11*RBC 3.09*HB 8.7*HCT 26.8*MCV 86.7MCH 28.2MCHC 32.5PLT 256MPV 9.7GLUC 165*BUN 6*CREAT 0.50*NA 138K 3.0*CHLOR 104CO2 28CA 7.8*MG 2.1Last Lab Drawn:LDL Chol, Mabel 110 02/23/2010ssessment/PlanActiv e Problems: Severe protein-calorie malnutrition (HCC) POA: Yes Assessment AND Plan: on TPN Atrial fibrillation with RVR (HCC) POA: Yes Assessment AND Plan: persistent atrial fibrillation with RVR, he israte controlled with IV Diltiazem. Telemetry reveals afib HR 107-115 bpm.He was Digoxin loaded, I will start a standing dose on Digoxin 0.125mg IVQD. He is chadsvasc of 2 and not on oral ATC due to amenia. GI bleed. EGDtoday revealed large antral ulcer and large DU with duodenal stricture.Dr. Maher will see the patient on Monday. Hematemesis POA: Unknown Assessment AND Plan: he has an NG tube. Gastric outlet obstruction POA: Unknown Assessment AND Plan: GI is following.-Hypokalemia: Please keep K+ > 4.0.Medication and Non-Pharmacologic VTE Prophylaxis/AnticoagulantsAnt icoagulant AND Antiplatelet Medications Start Dose Route Frequency Ordered Stop 09/13/17 0900 enoxaparin 40 mg injection (LOVENOX) (Medical At Risk ) 40 mg SUBCUTANEOUS DAILY 05/22/18 5536 --SIGNATURE: Michelle Weeks, MSN, DICE MAKER.OPTOMETRIC ASSISTANT PATIENT NAME: Cristina JeffreyDATE: September 15, 2017 : 4:24 PM PAGER/CONTACT #: [phone] [facility] Protein mass conc HNO ID: [id number] thor: Zuleika (Business Performance Analyst) PhelanService: Pulmonary DiseaseAuthor Type: Nurse PractitionerType: Progress NotesFiled: 09/15/2017 3:17 PMNote Text:PULMONARY PROGRESS NOTE CCAGHSSERVICE DATE: September 15, 2017SERVICE TIME: 3:02 PMSubjectivePatient denies any complaints.No shortness of breath, wheezing, cough, phlegm, chest pain, fevers orchills.No further signs or symptoms of bleeding.OBJECTIVECurrent Facility-Administered Medications:albuterol 2.5 mg /3 mL (0.083 %) 2.5 mg (PROVENTIL) 2.5 mg INHALATION q 4H PRN Ahmad H (Res) Ababneh 2.5 mg at 09/15/17 0226Parenteral Nutrition - Adult INTRAVENOUS ONCE TPN (1800 START) H ScottAwenderpotassium phosphate 30 mmol in NaCl 0.9% 250 mL 30 mmol INTRAVENOUS ONCE HScott Awender Last Rate: 41.67 mL/hr at 09/15/17 1254 30 mmol at 430593zmeljg 1 Nineveh (CHLORASEPTIC) 1 Nineveh MUCOUS MEMBRANE (TOPICAL MOUTH ANDTHROAT) q 2 H PRN Safal N (Res) Avalos 1 Nineveh at 09/14/17 1105benzocaine-menthol 1 Lozenge (CEPACOL) 1 Lozenge MUCOUS MEMBRANE (TOPICALMOUTH AND THROAT) q 2 H PRN Safal N (Res) PatelParenteral Nutrition - Adult INTRAVENOUS ONCE TPN (0 START) HarishKakarala Last Rate: 100 mL/hr at 09/14/17 1800ondansetron (PF) 4 mg injection (ZOFRAN) 4 mg INTRAVENOUS q 6 H PRNAlessandra (Res) Boufford 4 mg at 09/13/17 0013dilTIAZem 100 mg in D5W 100 mL ADD-Arvilla (CARDIZEM) 5-15 mg/hrINTRAVENOUS CONTINUOUS Safal N (Res) Avalos Last Rate: 12.5 mL/hr at09/15/17 0653 12.5 mg/hr at 09/15/17 19109.9% NaCl 10 mL 10 mL INTRAVENOUS q 12 H Safal N (Res) Avalos 10 mL at09/15/17 64262.9% NaCl 20 mL 20 mL INTRAVENOUS PRN Safal N (Res) Pateliv contrast (radiology procedure) INTRAVENOUS DIRECTED PRN Raul(Res) Guzowskienoxaparin 40 mg injection (LOVENOX) 40 mg SUBCUTANEOUS DAILY Annel(Res) [place] 40 mg at 09/15/17 1254pantoprazole 40 mg injection (PROTONIX) 40 mg INTRAVENOUS DAILY (6 AM)Annel (Res) [place] 40 mg at 09/15/17 0531INTAKE AND OUTPUTIntake/Output Summary (Last 24 hours) at 09/15/17 1502Last data filed at 09/15/17 1300 Gross per 24 hourIntake 1273.2 mlOutput 4005 mlNet -2731.8 mlNew Radiology Films:CXR 09/13/17:No acute radiographic abnormality.Right-sided PICC line the tip near the caval atrial junction.New Micro:MRSA - negativeNew Labs:BMP:Glucose (mg/dL)Date Value09/15/2017 165 Potassium (mEq/L)Date Value09/15/2017 3.0 Sodium (mEq/L)Date Value09/15/2017 138 Chloride (mEq/L)Date Value09/15/2017 104 CO2 (mEq/L)Date Value09/15/2017 28 Creatinine (mg/dL)Date Value09/15/2017 0.50 BUN (mg/dL)Date Value09/15/2017 6 Anion Gap (no units)Date Value09/15/2017 9 Calcium (mg/dL)Date Value09/15/2017 7.8 CBC:HGB (g/dL)Date Value09/15/2017 8.705 8.205 9.1 Hematocrit (%)Date Value09/15/2017 26.805/ 26.105/ 28.4 WBC (thou/cmm)Date Value09/15/2017 9.1105 7.2005 7.97 Vital Signs 3 8 200BP: 117/68 107/71 96/60 112/65Pulse: 119 107 106 110Resp: 18 22 20 20Temp: 36.7 ?C (98.1 ?F)TempSrc: AxillarySpO2: 99% 99% 99% 99%Weight:Height:PHYSICAL EXAM:Vitals: Reviewed above. Patient is on 1 L NC.GENERAL: AAOx3, pleasant, resting in bed in NAD, elderly, chronically illappearingRESPIRATORY: CTAB A AND P. Respirations are even AND unlabored at rest. Nowheezing, accessory muscle use, pursed lip breathing or conversationaldyspnea. As above, patient is on 1L NC.CARDIOVASCULAR: Irregular S1S2, RR. No edema.GI: Abdomen soft, round, nontender, bowel sounds present x4 +NGT to LIWSEXTREMITIES: No clubbing or cyanosis. Moves all extremities equal x 4?Assessment and Plan:?1) Pancreatic head mass / gastric outlet obstruction s/p EGD with balloondilation of GO and antral biopsies. Continue with TPN / NG per GI.2) A-fib with RVR - now rate controlled of Cardizem drip AND Digoxin.Management per EP. No anticoagulation due to #3.3) Recent upper GI bleed s/p angio-embolization of gastroduodenal andgastroepiploic arteries in June 2017.4) MMP - per primary5) Discharge Planning - Patient is stable out of ICU from aPulmonary/Critical Care standpoint. We will sign off. Please call with anyquestions/concerns.SIGNATU RE:Zuleika Gregorio APRN.OPTOMETRIC ASSISTANT PATIENT NAME:Cristina JeffreyDATE:September 15, 2017 :3:02 PM PAGER/CONTACT #:[phone] [facility] Protein mass conc HNO ID: [id number] thor: Vicki (Res) Katie: General SurgeryAuthor Type: ResidentType: Progress NotesFiled: 09/15/2017 8:02 AMNote Text: At testation signed by Venus Foster at 09/15/2017 12:33 PMAttending NoteI personally saw and examined the patient. I reviewed the resident's note. Paul with the resident's assessment and plan with the following revisionsand/or additions: await EGD results.Signature: Venus Foster, MDDate: 09/15/2017Time: 12:33 PM Elect verito Surgery Progress NoteSERVICE DATE: 09/15/2017SUBJECTIVE:No acute events overnight. No N/V. NG tube secured with tape at 30 cm.DIET NPOParenteral Nutrition - AdultOBJECTIVE:Temp (24hrs), Av.3 ?C (97.3 ?F), Min:36 ?C (96.8 ?F), Max:36.7 ?C(98.1 ?F)BP 106/68 Pulse (!) 125 Temp 36.4 ?C (97.5 ?F) (Oral) Resp 18 Ht 175.3 cm (5' 9.02") Wt 84.3 kg (185 lb 13.6 oz) SpO2 95% BMI27.43 kg/m?O2 Therapy: Nasal CannulaDate 09/14/17 0700 - 09/15/17 0659 09/15/17 0700 - 09/16/17 0659Shift 5008-1138 2313-0326 8380-8202 24 Hour Total 9177-2073 9252-84524408-3758 24 Hour TotalINTAKE IV 582.7 414.2 996.9 NS 0.9% 300 339 639 Potassium IVPB 200 200 Diltiazem Volume 82.7 75.2 157.9 TPN/PPN 459 459 TPN 459 459 Irrigants 30 30 Irrigant/Flush Amount In (GI Feed/Drain 09/13/17 1322 Nasogastric RightNaris 18 Fr) 30 30 Shift Total 612.7 873.2 1485.9OUTPUT Urine 1310 1305 2615 Tube Output ( Indwelling Urinary Catheter 09/13/17 1145 Miranda 16Fr) 1310 1305 2615 Tubes 0 300 300 Output (GI Feed/Drain 09/13/17 1322 Nasogastric Right Naris 18 Fr) 0300 300 Shift Total 1310 1605 2915Weight (kg) 84.3 84.3 84.3 84.3 84.3 84.3 84.3 84.3Current Facility-Administered Medications:albuterol 2.5 mg /3 mL (0.083 %) 2.5 mg (PROVENTIL) 2.5 mg INHALATION q 4H PRNpotassium chloride iv piggyback 20 mEq in sterile water 100 mL 20 mEqINTRAVENOUS q 2 Hphenol 1 Nineveh (CHLORASEPTIC) 1 Nineveh MUCOUS MEMBRANE (TOPICAL MOUTH ANDTHROAT) q 2 H PRNbenzocaine-menthol 1 Lozenge (CEPACOL) 1 Lozenge MUCOUS MEMBRANE (TOPICALMOUTH AND THROAT) q 2 H PRNParenteral Nutrition - Adult INTRAVENOUS ONCE TPN (2200 START)ondansetron (PF) 4 mg injection (ZOFRAN) 4 mg INTRAVENOUS q 6 H PRNdilTIAZem 100 mg in D5W 100 mL ADD-Arvilla (CARDIZEM) 5-15 mg/hrINTRAVENOUS CONTINUOUS0.9% NaCl 10 mL 10 mL INTRAVENOUS q 12 H0.9% NaCl 20 mL 20 mL INTRAVENOUS PRNiv contrast (radiology procedure) INTRAVENOUS DIRECTED PRNenoxaparin 40 mg injection (LOVENOX) 40 mg SUBCUTANEOUS DAILYpantoprazole 40 mg injection (PROTONIX) 40 mg INTRAVENOUS DAILY (6 AM)Recent Labs 300 340 426NA 138 137 < > 131*K 3.0* 3.5 < > 3.3*CHLOR 104 108* < > 93*CO2 28 23 < > 30BUN 6* 10 < > 34*CREAT 0.50* 0.52* < > 0.84GLUC 165* 72 < > 92ANION 9 10 < > 11CA 7.8* 7.0* < > 9.3MG 2.1 2.1 -- 1.8P 1.5* 1.3* -- --ALB -- -- -- 3.2*AST -- -- -- 16ALT -- -- -- 21ALKPHOS -- -- -- 51TBILI -- -- -- 0.4WBC 9.11* 7.20 < > 9.36*HB 8.7* 8.2* < > 9.9*HCT 26.8* 26.1* < > 30.0*PLT 256 210 < > 258INR -- -- -- 1.13< > = values in this interval not displayed.Exam:GENERAL: No distress, AlertNEURO: CQOQUh8BJNDK: normocephalic, atraumaticLUNGS: Unlabored breathingCARDIAC: Regular rate and rhythm as aboveABDOMEN: soft, + very distended (increased from yesterday), but pt deniespainEXTREMITIES: JERONIMO, No deformities, No edemaSKIN: Skin color, texture, turgor normal, No rashes or lesionsASSESSMENT AND PLAN:Active Hospital Problems Diagnosis Date Noted- Atrial fibrillation with RVR (HCC) 09/12/2017- Hematemesis 09/12/2017 Overview Note: Added automatically from request for surgery [id number]- Gastric outlet obstruction 09/12/2017 Overview Note: Added automatically from request for surgery [id number]- Severe protein-calorie malnutrition (HCC) 07/03/201772 YOM with likely pancreatic head mass and GOO. Sent to ED fromendoscopy for A-fib/RVR. Concerning for possible gastrinoma vs adenoCA ofpancreas. H/o antral ulcers AND hpylori?- A-fib mgnt per medicine- protonix- NGT to LIWS--> d/w pt's RN in endoscopy that NG was not in far enoughand needed to be advanced about 30cm and hooked to LIWS to decompressstomach before EGD to avoid aspiration; NG currently taped in place at 30cm.- plan for scope with GI today; will f/u results?Vicki Breaux, DOGeneral Surgery PGY-4May 2017 6:27 AMPager: [phone] [facility] PT EDon 09-15-2017 PT ED HNO ID: [id number] thor: Tanya BarnettRn) KELLY Farleyervice: GastroenterologyAuthor Type: Registered NurseType: Patient EducationFiled: 09/15/2017 11:58 AMNote Text:POST OP LEARNING RESPONSEINSTRUCTION PROVIDED TO: PatientMETHOD OF INSTRUCTION: Individual instructionPATIENT / FAMILY RESPONSE: Information received as demonstrated byinterest and questionsFOLLOW-UP PLAN: Recommend - Recommend continued instruction and follow upas directedSUPPLEMENTAL MATERIAL: NoneREFERRAL (RECOMMENDATION): NoneElectronically Signed By: Tanya Farley RN In Department: [facility] ENDegdayanawith anesthesia, diet and activity instructions, f/u with physician,emergent symptoms to report to physician, use of call light at all timesto move in bed or with questions, emergent symptoms [facility] PT ED HNO ID: [id number] thor: Tanya Spear) KELLY Farleyervice: GastroenterologyAuthor Type: Registered NurseType: Patient EducationFiled: 09/15/2017 8:35 AMNote Text:PRE OP LEARNING ASSESSMENTPROCEDURE/SURGERY: GI PROCEDURES: EGDREADINESS TO LEARNCOGNITIVE ABILITY: Alert and orientedMOTIVATION TO LEARN: InterestedFAMILY SUPPORT: None - Unavailable/disinterestedPATI ENT LEARNS BEST BY: Verbal InstructionFACTORS AFFECTING LEARNING: NonePHYSICAL LIMITATIONS AFFECTING LEARNING: NoneElectronically Signed By: Tanya Farley RN In Department: [facility] 4200 CVMED/SURGegd with anesthesia, diet and activity instructions, f/u with physician,emergent symptoms to report to RN or physician post proc. Use of calllight at all times to change position, emergent symptoms or questionsabout care. [facility] Phosphorus Bloodon 8 Phosphate 1.5 mg/dL Critically low 2.5-4.[address] [facility] Comment on above: Performed By: #### P T ####[place] [address] Surgical Tissue Examon 09-15 Surgical Tissue Exam Test performed at [place] [id number]: CRISTINA JEFFREY [id number] REQUESTING: SAGAR DOMINGUEZ M.D.FINAL DIAGNOSIS: GASTRIC ANTRUM, BIOPSIES - INTESTINAL METAPLASIA. NEGATIVE FORDYSPLASIA OR CARCINOMA. CHRONIC AND ACTIVE GASTRITIS. NEGATIVE FORHELICOBACTER ORGANISMS. H. PYLORI IMMUNOSTAIN REVIEWED.OPERATIVE PROCEDURE: EGDCLINICAL INFORMATION: Anemia, gastric ulcer; gastric outlet obstruction secondary to gastriculcer and gastric strictureGROSS DESCRIPTION:Antral bxReceived in formalin labeled antral biopsy is a snow soft tissuemeasuring 0.6 x 0.2 x 0.1 cm, which is totally submitted in onecassette. Levels x 3, plus H. pylori. BMP:lesley CHU M.D., PATHOLOGIST(Electronic signature on file)Signed out: 09/19/2017 16:21PRINTED: 09/19/2017 Page 1 of [address] [facility] Comment on above: Performed By: #### P T ####[place] [id number] THERAPY NTon 09-15-2017 THERAPY NT HNO ID: [id number] thor: Ana Cristina (Pt) SturmService: Physical TherapyAuthor Type: Physical TherapistType: Therapy (PT/OT/Speech/Resp)Filed: 09/15/2017 2:07 PMNote Text:PHYSICAL THERAPY MISSED VISITSERVICE DATE: 09/15/2017SERVICE TIME: 1315 to 1315ROOM: [id number] Evaluation. Patient not seen due to (EDG). Will reattempt asable.SIGNATURE: Ana Cristina Walker PT PATIENT NAME: Cristina JeffreyDATE: September 15, 2017 : 2:07 PM PAGER/CONTACT #: [phone] [facility] THERAPY NT HNO ID: [id number] thor: Marnie (Otr/L) TrinyService: Occupational TherapyAuthor Type: Occupational TherapistType: Therapy (PT/OT/Speech/Resp)Filed: 09/15/2017 2:02 PMNote Text:OCCUPATIONAL THERAPY MISSED VISITSERVICE DATE: 09/15/2017SERVICE TIME: 1401 to 1401ROOM: [id number] Evaluation. Patient not seen due to (just returned fromEGD/partially sedated). Will reattempt as able/appropriate.SIGNATURE: Marnie Agosto, OTR/L PATIENT NAME: Cristina MooreTE: September 15, 2017 : 2:02 PM PAGER/CONTACT #: [facility] ALLIED HEALTHon 09-14-2017 ALLIED HEALTH HNO ID: [id number] thor: Zayra Bermudez Office CoordService: (none)Author Type: (none)Type: Allied HealthFiled: 09/14/2017 12:19 PMNote Text:BANDING MACHINE OPERATOR NOTESERVICE DATE: 09/14/2017SERVICE TIME: 12:19 PMReferral:Home Care referral received by: Jreed continue to follow for physician ordersSIGNATURE: Zayra Bermudez Office Coord PATIENT NAME: Cristina JeffreyDATE: September 14, 2017 : 12:18 PM [facility] Basic Panelon 09-14-2017 Creatinine 0.52 mg/dL Low 0.67-1.[address] [facility] Comment on above: Performed By: #### P T ####[place] [address] Urea nitrogen 10 mg/dL Normal 7-[address] [facility] Comment on above: Performed By: #### P T ####[place] [address] Calcium 7.0 mg/dL Low 8.5-10.[address] [facility] Comment on above: Performed By: #### P T ####[facility] [place] [address] Glucose mass conc 72 mg/dL Normal 70-[address] [facility] Comment on above: Performed By: #### P T ####[facility] [place] [address] Anion gap 10 mmol/L Normal 8-[address] [facility] Comment on above: Performed By: #### P T ####[facility] [place] [address] CO2 23 mmol/L Normal 21-[address] [facility] Comment on above: Performed By: #### P T ####[place] [address] Chloride 108 mmol/L High 98-[address] [facility] Comment on above: Performed By: #### P T ####[place] [address] Potassium molar conc 3.5 mmol/L Normal 3.5-5.1 [facility] Comment on above: Performed By: #### P T ####[place] [address] Sodium 137 mmol/L Normal 136-[address] [facility] Comment on above: Performed By: #### P T ####[place] [address] CASE MGT INIT ASSESon 2017 CASE MGT INIT ASSCASIE HNO ID: [id number] thor: Zoë (Rn) KELLY Alexanderervice: Care ManagementAuthor Type: Registered NurseType: Care Mgt Initial AssessmentFiled: 09/14/2017 12:11 PMNote Text:CARE MANAGEMENT: ASSESSMENT AND DISCHARGE PLANSERVICE DATE: 09/14/2017SERVICE TIME: 1056PRIMARY CARE PHYSICIAN:ENRIQUE Perez [place]: [phone] STATUS: InpatientNeeds Prior to Discharge: To Be DeterminedMEDICAL:Patient/Rep resentative Stated Goals:To return home to life as it wasHealth Insurance: MEDICARE A AND BMedicaidHealth Issues Impacting Discharge Plan: A-fibLast Admission Date: Previous admit date: 06/23/2017Is this Within the Past 30 days? NoAdvance Directive:Current Advance Directive: NoneCare Paper Stacker Assisted with AD Completion: NoHealth Literacy:1. How often do you need to have someone help you when you readinstructions, pamphlets, or other written material from your doctor orpharmacy? Never - 12. How confident are you filling out medical forms by yourself? Quite abit - 2If Patient scores > 3 on either question, the following interventions wereput into place:Patient did not score > 3FUNCTIONAL AND COGNITIVE/BEHAVIORALPRIOR TO ADMISSION:Baseline Mental Status: Alert AND Oriented, Person, Place , Time andSituationFunctional Status: IndependentDoes Patient Currently Receive Any Community Services or Home Care?Passport FELIPE Olivia [phone]. Patient states hasmeals on wheels, and plan to be set up with emergency alert.Equipment Prior to Admission: Aerosols/Intermittent positivebreathing/Respiratory TreatmentsHand Held ShowerTub bench/chairHas the Patient Been in a Nursing Home Facility in the Past 30 days?Patient was at [facility] June.SOCIAL:Living Arrangement: HomeLives With: AloneFinancial Resources: N/APrimary Contact: Extended Emergency Contact InformationPrimary Emergency Contact: [place] [address] [facility] Uzvrbrif: SisterSupportive: YesOther Important Patient Contacts: NoneCaregiver Assessment:Caregiver is ready, willing and able to meet the patient's needs asrecommended by the inter-professional team? No Caregiver NeededPatient's transition needs and plan for meeting these needs: TBDDoes the patient have an acute stroke diagnosis, or has the patient had astroke during this admission? NoMedication Adherence:I am convinced of the importance of my prescription medication: Agreecompletely - 0I worry that my prescription medication will do more harm than good to meDisagree completely - 0I feel financially burdened by my frr-zl-cpcylu expenses for myprescription medication: Disagree completely - 0Patient is categorized as low risk < 2Are you interested in bedside delivery of your medications? YesFood Concerns:In the Last Month, Have You had Trouble Getting Food? No trouble gettingfoodDuring the Last Month, Have You Worried Whether Your Food Would Run OutBefore You Had Enough Money to Buy More? NoIs the Patient Psychosocially Complex? NoASSESSMENT AND PLAN:Medical Needs: To be determined.Psychosocial Needs: NoneFREEDOM OF CHOICE EXPLAINED:N/APOTENTIAL TRANSITION PLANSHomeTo Be DeterminedSpoke with patient regarding TPN and possible discharge needs. Patientstates today he feels strong enough to plan to return home with [facility], butif he should need rehab at discharge his choice is [facility]. for [facility] [phone] to call CM.Will continue to follow clinical progress for discharge planning.SIGNATURE: Zoë Alexander RN PATIENT NAME: Cristina JeffreyDATE: September 14, 2017 : 11:57 AM CONTACT #: [id number] [facility] CONSULTon 09-14-2017 CONSULT HNO ID: [id number] thor: Neema Lagunaservice: ElectrophysiologyAuthor Type: PhysicianType: ConsultsFiled: 09/14/2017 5:09 PMNote Text:CONSULT NOTESERVICE DATE: 09/14/2017SERVICE TIME: 12:00 PMPHYSICIAN CONSULT (AK,AV,EU,FV,HL,GERRY,MM,SP)Cons ult performed by: NEEMA MAHERHConsnisha ordered by: Liat MIRELES for consult: Atrial fibrillation.PRIMARY CARE PHYSICIAN: CANDICE Perez ChiPGObvmymmeegHNH98-yney-xcn male with history of essential hypertension, COPD, paroxysmalatrial fibrillation, recurrent upper GI bleeding, not anticoagulated,admitted with GI bleeding, noted to be in atrial fibrillation with RVR,treated with diltiazem IV and digoxin, 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 Thepatient is nothing by mouth, being started on TPN. Remains in atrialfibrillation with reasonably controlled ventricular rate. Echo severalmonths ago demonstrated EF of 45%.FUNCTIONAL STATUS: IndependentPAST MEDICAL HISTORYDiagnosis Date- Afib (HCC)- CHF (congestive heart failure) (HCC)- COPD (chronic obstructive pulmonary disease) (HCC)- HypertensionPAST SURGICAL HISTORYProcedure Laterality Date- EGD 06/21/2017 Multiple antral ulcers with 1 large ulcer with a visible vessel at itsbase as the source of bleeding. A large ulcer at the pre-pyloric region- EGD 06/23/2017 NG tube induced mucosal tear at GE junction, without bleeding. Multipleulcers at distal antrum and pyloric channel with significant deformity.Previously Endoclipped and epinephrine injected ulcer is not bleeding andvisible vessel has resolved. Large pyloric channel ulcer with deformityand stenosis with intermittent oozing of blood diffusely without anyvisible vessel. Normal duodenum- TUMOR REMOVAL (SPECIFY LOCATION) HX breast, childhoodNo family history on file.Social HistorySubstance Use Topics- Smoking status: Never Smoker- Smokeless tobacco: Never Used- Alcohol use No Comment: quit 6 months agoPrescriptions Prior to Admission:ergocalciferol, vitamin D2, (VITAMIN D) 50,000 unit capsule Take 50,000Units by mouth once each week. Disp: Rfl: Past Week at Unknown timepotassium chloride 20 mEq/kg/dose once daily. Disp: Rfl: 09/11/2017 atUnknown timecarvedilol (COREG) 12.5 mg tablet Disp: Rfl:lisinopril (ZESTRIL, PRINIVIL) 20 mg tablet Disp: Rfl:predniSONE (DELTASONE) 10 mg tablet Disp: Rfl:metoprolol tartrate, short acting, (LOPRESSOR) 50 mg tablet Take 1 tabletby mouth every 8 hours. Disp: Rfl: 09/12/2017 at Unknown timediltiazem CD (CARDIZEM CD, CARTIA XT) 240 mg 24 hr capsule Take 1 capsuleby mouth once daily. Disp: Rfl: 09/12/[address] (PROTONIX) 40 mg tablet Take 1 tablet by mouth twicedaily. Disp: Rfl: 09/11/2017 at Unknown timeBismuth Subsalicylate (PEPTO-BISMOL) 262 mg tab Take 1 tablet by mouthtwice daily for 14 days. Disp: 28 tablet Rfl: 0 09/11/2017 at Unknown timeVit A,C,W-Kxky-Xkkiti (PRESERVISION AREDS) 14,320-226-200 ythe-yq-rybntip Take 1 capsule by mouth twice daily. Disp: Rfl: 09/11/2017 at Unknowntimealbuterol (PROVENTIL) 2.5 mg /3 mL (0.083 %) nebulizer solution Use 2.5 mgvia nebulizer every 4 hours as needed for Wheezing/Shortness of Breath.Disp: Rfl: 09/12/2017 at Unknown timepravastatin (PRAVACHOL) 40 mg tablet Take 40 mg by mouth once daily. Disp: Rfl: 09/11/2017 at Unknown timebudesonide-formoterol (SYMBICORT) 160-4.5 mcg/actuation inhaler Inhale 1Puff as instructed twice daily. Disp: Rfl: 09/11/2017 at Unknown timeguaiFENesin (MUCINEX) 600 mg 12 hr tablet Take 1,200 mg by mouth twicedaily. Disp: Rfl: 09/11/2017 at Unknown timefurosemide (LASIX) 40 mg tablet Take 40 mg by mouth twice daily. Disp:Rfl: 09/11/2017 at Unknown timeCurrent hospital medications:phenol 1 Nineveh (CHLORASEPTIC) 1 Nineveh MUCOUS MEMBRANE (TOPICAL MOUTH ANDTHROAT) q 2 H PRNbenzocaine-menthol 1 Lozenge (CEPACOL) 1 Lozenge MUCOUS MEMBRANE (TOPICALMOUTH AND THROAT) q 2 H PRNParenteral Nutrition - Adult INTRAVENOUS ONCE TPN (2200 START)albuterol 2.5 mg /3 mL (0.083 %) 2.5 mg (PROVENTIL) 2.5 mg INHALATION q 4H PRNondansetron (PF) 4 mg injection (ZOFRAN) 4 mg INTRAVENOUS q 6 H PRNNaCl 0.9% iv infusion 100 mL/hr INTRAVENOUS CONTINUOUSdilTIAZem 100 mg in D5W 100 mL ADD-Arvilla (CARDIZEM) 5-15 mg/hrINTRAVENOUS CONTINUOUS0.9% NaCl 10 mL 10 mL INTRAVENOUS q 12 H0.9% NaCl 20 mL 20 mL INTRAVENOUS PRNiv contrast (radiology procedure) INTRAVENOUS DIRECTED PRNenoxaparin 40 mg injection (LOVENOX) 40 mg SUBCUTANEOUS DAILYpantoprazole 40 mg injection (PROTONIX) 40 mg INTRAVENOUS DAILY (6 AM)Allergies As of Date: 09/12/2017(No Known Allergies)Fully Assessed 09/12/2017COMPLETE REVIEW OF SYSTEMS:Review of SystemsConstitutional: Positive for activity change, appetite change and fatigue.HENT: Positive for hearing loss.Eyes: Positive for pain.Respiratory: Negative for shortness of breath.Cardiovascular: Positive for palpitations. Negative for chest pain.Gastrointestinal: Positive for blood in stool.Genitourinary: Negative for on dialysis.Musculoskeletal: Negative for neck pain.Skin: Positive for pallor.Neurological: Negative for syncope.Psychiatric/Behaviora l: The patient is nervous/anxious.ObjectivePhys ical ExamConstitutional:Ill-appear ing male in no acute distress, NG tube in place withcoffee-ground contents.HENT:Head: Normocephalic and atraumatic.Eyes: Conjunctivae are normal.Cardiovascular:Irregul ar, tachycardia, S1-S2.Pulmonary/Chest: No stridor. No respiratory distress.Skin: Skin is warm and dry.Psychiatric: He has a normal mood and affect.Patient Vitals for the past 24 hrs: BP Temp Temp src Pulse Resp SpO2 Brmbnd77/24/18 1600 114/62 36.1 ?C (97 ?F) Axillary 97 28 99 % -09/14/17 1500 99/71 - - 93 24 97 % -09/14/17 1400 109/65 - - 97 25 98 % -09/14/17 1330 102/59 - - 86 17 98 % -09/14/17 1300 101/65 - - 94 19 96 % -09/14/17 1230 94/62 - - 92 22 100 % -09/14/17 1226 - - - 91 24 - -09/14/17 1215 - - - 87 (!) 33 96 % -09/14/17 1200 105/66 36.1 ?C (97 ?F) Axillary 101 29 98 % -09/14/17 1145 108/63 - - 92 20 97 % -09/14/17 1130 100/63 - - 93 27 98 % -09/14/17 1115 104/69 - - 107 27 98 % -09/14/17 1100 105/71 - - 102 18 96 % -09/14/17 1000 120/72 - - 105 20 96 % -09/14/17 0900 115/68 - - 116 28 98 % -05/24/18 0852 - - - 120 - - -09/14/17 0800 112/68 - - 100 18 96 % -09/14/17 0730 124/65 36 ?C (96.8 ?F) Axillary 96 16 98 % -09/14/17 0700 99/69 - - 99 17 96 % -09/14/17 0600 116/80 - - 106 23 98 % -09/14/17 0500 95/68 - - 102 24 96 % -09/14/17 0400 114/63 - - 100 24 98 % 84.3 kg (185 lb 13.6 oz)09/14/17 0300 103/75 - - 78 20 97 % -09/14/17 0200 99/60 - - 79 18 96 % -09/14/17 0100 102/67 - - 82 18 95 % -09/14/17 0000 96/68 (!) 35.5 ?C (95.9 ?F) - 88 24 98 % -09/13/17 2300 86/61 - - 81 24 97 % -09/13/17 2200 99/63 - - 84 23 97 % -09/13/17 2100 97/61 - - 85 22 97 % -09/13/17 2000 97/62 - - 92 27 97 % -09/13/17 1900 94/58 36.4 ?C (97.5 ?F) - 95 24 97 % -09/13/17 1830 96/58 - - 92 25 97 % -09/13/17 1800 99/69 - - 93 25 96 % -09/13/17 1730 95/63 - - 107 23 97 % -Body mass index is 27.43 kg/m?.DATA:Diagnostic tests reviewed for today's visit:Most recent labs and imaging results.Assessment and recommendations:72-year-old male with atrial fibrillation that appears to be persistent,recurrent GI bleeding, pancreatic mass. We'll continue rate control withintravenous diltiazem and digoxin, no immediate plans for temple ofsinus rhythm, as the patient cannot be safely anticoagulated.SIGNATURE: Neema Maher MD PATIENT NAME: Cristina JeffreyDATE: September 14, 2017 : 5:02 PM PAGER: [phone] [facility] CONSULT PROGon 09-14-2017 Protein mass conc HNO ID: [id number] thor: Toshia ([employer] Buyer) Domingoervice: GastroenterologyAuthor Type: Nurse SpecialistType: Consult Progress NoteFiled: 09/14/2017 2:23 PMNote Text:GI CONSULT PROGRESS NOTESERVICE DATE: 09/14/2017SERVICE TIME: 2:13 PMCONSULTING SERVICE: GastroenterologySubjectiveINT ERVAL HISTORY: Still has NG with scant bloody drainage. Wants to eat -says he is hungryMEDICATIONS:Current hospital medications:phenol 1 Nineveh (CHLORASEPTIC) 1 Nineveh MUCOUS MEMBRANE (TOPICAL MOUTH ANDTHROAT) q 2 H PRNbenzocaine-menthol 1 Lozenge (CEPACOL) 1 Lozenge MUCOUS MEMBRANE (TOPICALMOUTH AND THROAT) q 2 H PRNParenteral Nutrition - Adult INTRAVENOUS ONCE TPN (2200 START)albuterol 2.5 mg /3 mL (0.083 %) 2.5 mg (PROVENTIL) 2.5 mg INHALATION q 4H PRNondansetron (PF) 4 mg injection (ZOFRAN) 4 mg INTRAVENOUS q 6 H PRNNaCl 0.9% iv infusion 100 mL/hr INTRAVENOUS CONTINUOUSdilTIAZem 100 mg in D5W 100 mL ADD-Arvilla (CARDIZEM) 5-15 mg/hrINTRAVENOUS CONTINUOUS0.9% NaCl 10 mL 10 mL INTRAVENOUS q 12 H0.9% NaCl 20 mL 20 mL INTRAVENOUS PRNiv contrast (radiology procedure) INTRAVENOUS DIRECTED PRNenoxaparin 40 mg injection (LOVENOX) 40 mg SUBCUTANEOUS DAILYpantoprazole 40 mg injection (PROTONIX) 40 mg INTRAVENOUS DAILY (6 AM)ObjectivePHYSICAL EXAM:VITALS:BP 101/65 Pulse 94 Temp 36.1 ?C (97 ?F) (Axillary) Resp 19 Ht 175.3 cm (5' 9.02") Wt 84.3 kg (185 lb 13.6 oz) SpO2 96% BMI 27.43 kg/m?ABDOMEN: Softly distended, with minimal tenderness throughout, bowelsounds present. No guarding, rebound or rigidity.General: Alert and oriented. No distressDATA:Diagnostic tests reviewed for today's visit:Most recent labs and imaging results.CBC, Coags, BMP, Mg, PhosRecent Labs 09/13/1802WBC 7.20 7.97 9.36*HB 8.2* 9.1* 9.9*HCT 26.1* 28.4* 30.0*PLT 210 212 258INR -- -- 1.13NA 137 135* 131*K 3.5 4.1 3.3*CHLOR 108* 106 93*CO2 23 27 30BUN 10 20* 34*CREAT 0.52* 0.67 0.84GLUC 72 90 92CA 7.0* 7.8* 9.3MG 2.1 -- 1.8P 1.3* -- --CSF AND DilantinLiver Function, Amylase, AND LipaseRecent Labs 09/12/1813TPROT -- 6.2*ALB -- 3.2*ALT -- 21AST -- 16ALKPHOS -- 51TBILI -- 0.4LIPASE 639* --Cardiac EnzymesABGsImpression/Recomme ndationsPancreatic mass with suspected gastric outlet obstruction - currently hasNG with scant bloody drainage- General surgery following. Considering surgery?History of Gastric ulcers and pyloric channel ulcers- s/p endoclip, EPIinjection and IR embolization. Was scheduled for repeat EGD earlier thisweek - but procedure was cancelled due to Afib-RVR- Reschedule EGD tomorrow with Dr. Dominguez?GI will continue to followSIGNATURE: Toshia Epperson APRN.COOK APPRENTICE PATIENT NAME: Cristina JeffreyDATE: September 14, 2017 : 2:13 PM PAGER/CONTACT #: [phone] [facility] Hemogram/Diffon 09-14-2017 Abs Immature Grans 0.08 thou/cmm High 0.00-0.05 [facility] Comment on above: Performed By: #### P T ####[place] [address] Abs. Baso 0.03 thou/cmm Normal 0.01-0.[address] [facility] Comment on above: Performed By: #### P T ####[facility] [place] [address] Abs. Sheridan 0.72 thou/cmm Normal 0.30-0.[address] [facility] Comment on above: Performed By: #### P T ####[place] [address] Abs. Neut (ANC) 4.64 thou/cmm Normal 1.78-5.[address] [facility] Comment on above: Performed By: #### P T ####[place] [address] Basophils/100 WBC Auto (Bld) 0.4 % Normal [facility] Comment on above: Performed By: #### P T ####[place] [address] Eosinophils 0.30 thou/cmm Normal 0.04-0.[address] [facility] Comment on above: Performed By: #### P T ####[place] [address] Eosinophils/100 leukocytes 4.2 % Normal [facility] Comment on above: Performed By: #### P T ####[place] [address] Erythrocyte distribution width Auto Ratio (RBC) 15.2 % High 11.6-14.[address] [facility] Comment on above: Performed By: #### P T ####[place] [address] Erythrocytes (RBC) 2.91 mil/cmm Low 4.63-6.08 [facility] Comment on above: Performed By: #### P T ####[place] [address] Hematocrit (HCT) 26.1 % Low 40.1-51.[address] [facility] Comment on above: Performed By: #### P T ####[place] [address] Hemoglobin mass conc (Bld) 8.2 g/dL Low 13.7-17.[address] [facility] Comment on above: Performed By: #### P T ####[facility] [place] [address] Immature Grans 1.10 % Normal [facility] Comment on above: Performed By: #### P T ####[place] [address] Lymphocytes 1.43 thou/cmm Normal 0.84-2.[address] [facility] Comment on above: Performed By: #### P T ####[address] [address] Lymphocytes/100 leukocytes 19.9 % Normal [facility] Comment on above: Performed By: #### P T ####[place] [address] MCH 28.2 pg Normal 25.7-32.[address] [facility] Comment on above: Performed By: #### P T ####[place] [address] MCHC mass conc (RBC) 31.4 % Low 32.3-36.5 [facility] Comment on above: Performed By: #### P T ####[place] [address] MCV 89.7 fL Normal 83.2-95.[address] [facility] Comment on above: Performed By: #### P T ####[address] [address] Monocytes/100 leukocytes 10.0 % Normal [facility] Comment on above: Performed By: #### P T ####[place] [address] Platelet mean volume (PMV) 9.9 fL Normal 8.7-12.[address] [facility] Comment on above: Performed By: #### P T ####[place] [address] Platelets 210 thou/cmm Normal 141-[address] [facility] Comment on above: Performed By: #### P T ####[place] [address] RDW SD 48.9 fl High 36.1-45.[address] [facility] Comment on above: Performed By: #### P T ####[facility] [place], [place] [address] Seg Neutrophil 64.4 % Normal [facility] Comment on above: Performed By: #### P T ####[address] [address] WBC (Leukocytes) 7.20 thou/cmm Normal 4.23-9.[address] [facility] Comment on above: Performed By: #### P T ####[address] [address] Ionized Calciumon 09-14-2017 Ionized Ca,PH7.4 3.89 mg/dL Low 4.36-4.[address] [facility] Comment on above: Performed By: #### P T ####[place] [address] Ionized Calcium 4.07 mg/dL Low 4.43-4.[address] [facility] Comment on above: Performed By: #### P T ####[address] [address] pH of blood 7.311 [pH] Low 7.320-7.[address] [facility] Comment on above: Performed By: #### P T ####[address] [address] MDRD GFRon 09-14-2017 eGFR (non-black) mL/min/{1.73_m2} Normal >60mL/m in/ 1.73m2 [facility] Comment on above: Result Comment: If t he patient is , multiply the result by 1.210. Performed By: #### P T ####[address] [address] Magnesium Bloodon 09-14-2017 Magnesium 2.1 mg/dL Normal 1.6-2.[address] [facility] Comment on above: Performed By: #### P T ####[address] [address] PROGRESSon 09-14-2017 Protein mass conc HNO ID: [id number] thor: Jorje Alvarado (Res) PatelService: Critical CareAuthor Type: ResidentType: Progress NotesFiled: 09/14/2017 11:30 AMNote Text: At testation signed by Noe Quick at 09/14/2017 12:27 [facility] STAFF PHYSICIAN NOTE OF PERSONAL INVOLVEMENT IN CAREI have reviewed the progress note obtained and documented by the resident and Ipersonally participated in the rivera components. I have discussed the case andmanagement of the patient's care. The following comments revise or confirmrelevant rivera components of the note.Interval history:Patient is resting comfortably in bed without any current complaints.Exam:Irregularly irregularClear to auscultation without wheezing bilaterally anteriorly.Minimal bowel sounds, soft, nontender, significantly distended.No pedal edema bilaterally.Poor turgor, but dry, intact skin.Data:Reviewed as detailed below.IMPRESSION:ACTIVE PROBLEM LISTShock (Hcc)Copd (Chronic Obstructive Pulmonary Disease) (Hcc)HypertensionHyperlipidem iaGI BleedingAcute Respiratory Failure With Hypoxia and Hypercapnia (Hcc)Acute Blood Loss AnemiaHemorrhagic Shock (Hcc)HypophosphatemiaAtrial Fibrillation With Rapid Ventricular Response (Hcc)Severe Protein-Calorie Malnutrition (Hcc)Atrial Fibrillation With Rvr (Hcc)HematemesisGastric Outlet ObstructionPancreatic tumorPLAN:Currently mostly rate controlled on diltiazem drip at 7.5 mg/hour. Will givediltiazem 20 mg bolus followed by increasing drip to 10 mg/hour for optimalrate control.EP is following for further evaluation and treatment of the patient's atrialfibrillation which will be more challenging as enteral medications will not vallecillo option for some time.Continue NG tube to LIWS.Dr. Foster (General Surgery) is planning for resection of his pancreatic tumornext week.Dual lumen PICC has been placed.Start TPN later today.Continue supportive care.To cardiac telemetry later today if a bed is available.This patient has a high probability of sudden, clinically significantdeterioration, which requires the highest level of physician preparedness tointervene urgently. I managed/supervised life or organ supportinginterventions that required frequent physician assessment. I devoted my fullattention to the direct care of this patient for the amount of time indicatedbelow. Time I spent with family or surrogate(s) is included only if thepatient was incapable of providing the necessary information or participatingin medical decision making. Time devoted to teaching and to any procedures Ibilled separately is not included.Patient/Family Updated: Patient, Cristina Jeffrey, was updated regarding thegoals of care, medical plan for the day, retail sales vitamin consultant recommendations, medicaldisposition and current medical condition/prognosis as and if clinicallyindicated. All questions and concerns wereanswered and addressed at this juncture.He was notified on September 14, 2017 at 08:10. The duration of the conversation was5-10 minutes.PROGNOSIS: GuardedCode status: Full Code.Discussed with Registered Nurse, Pharmacist and Residents while performingmultidisciplinary rounds.Critical Care Documentation:The patient has the following organ/system impairment(s):Atrial fibrillation with rapid ventricular responseTime spent providing critical care services: 20 minutes.SIGNATURE: Noe Quick [facility] RESPIRATORY INSTITUTEPAGER:[id number] of SERVICE: September 14, 2017TIME of SERVICE: 12:22 PM Medic al Intensive Care Progress NoteMay 2017Patient Name: Cristina Jeffrey [id number] Date: 09/12/2017 Length of Stay: 2Primary Service: Medical Intensive CareCase background:72 year old white male with a sig PMH of A fib (not anti-coag), CHF, COPD,previous GI bleed presents with Afib with RVR found at?pre-surg forendoscopy for evaluation of gastric ulcers. HR was in 170s. The patientreported worsening heartburn, and decreased appetite as a result of this.He denied SOB,CP, palpitations. He was treated with IV esmolol while atendoscopy, and with diltiazem drip in the ED. The physician did notproceed with the endoscopy due to A fib with RVR. Patient continued toreports abd bloating and distention but no pain.?The patient was transferred to ICU for management of A Fib w/ RVR andgastric outlet obstruction due to a pancreatic mass.?NG tube in place for gastric outlet obstruction. Suction continues to showno upper GI bleed. The patient is on 2L Oxygen. Right sided PICC lineplaced yestereday. Confirmed with chest xray that showed tip is near cavalarterial junction. Diltiazem bolus and infusions restarted yesterday withcontinuous monitoring of hypotension. Lopressor 5mg dose given yesterday.Interval History for 09/14/17:No adverse events overnight. Patient seen and examined in the AM. Hecontinues to report hunger. He reports improved dyspnea and heartburn. Hedenies any fevers, chills, chest pain, nausea, vomiting, diarrhea,abdominal pain, dysuria, hematuria, lightheadedness, limb swelling.Current Home Medicationsergocalciferol, vitamin D2, (VITAMIN D) 50,000 unit capsule Take 50,000Units by mouth once each week.potassium chloride 20 mEq/kg/dose once daily.carvedilol (COREG) 12.5 mg tabletlisinopril (ZESTRIL, PRINIVIL) 20 mg tabletpredniSONE (DELTASONE) 10 mg tabletmetoprolol tartrate, short acting, (LOPRESSOR) 50 mg tablet Take 1 tabletby mouth every 8 hours.diltiazem CD (CARDIZEM CD, CARTIA XT) 240 mg 24 hr capsule Take 1 capsuleby mouth once daily.pantoprazole DR (PROTONIX) 40 mg tablet Take 1 tablet by mouth twicedaily.Bismuth Subsalicylate (PEPTO-BISMOL) 262 mg tab Take 1 tablet by mouthtwice daily for 14 days.Vit A,C,B-Gqcj-Mlzlbk (PRESERVISION AREDS) 14,320-226-200 jjrj-vg-rhneeyj Take 1 capsule by mouth twice daily.albuterol (PROVENTIL) 2.5 mg /3 mL (0.083 %) nebulizer solution Use 2.5 mgvia nebulizer every 4 hours as needed for Wheezing/Shortness of Breath.pravastatin (PRAVACHOL) 40 mg tablet Take 40 mg by mouth once daily.budesonide-formoterol (SYMBICORT) 160-4.5 mcg/actuation inhaler Inhale 1Puff as instructed twice daily.guaiFENesin (MUCINEX) 600 mg 12 hr tablet Take 1,200 mg by mouth twicedaily.furosemide (LASIX) 40 mg tablet Take 40 mg by mouth twice daily.ObjectivePresent Condition: 09/14/18050 BP: 95/68 116/80 99/69 124/65Pulse: 102 106 99 96Resp: 16Temp: 36 ?C (96.8 ?F)TempSrc: AxillarySpO2: 96% 98% 96% 98%Weight:Height:PHYSICAL EXAMINATION: Performed with findings detailed below on 09/14/17Constitutional: He is oriented to person, place, and time. He appearswell-developed?and well-nourished. No distress.HENT:Head: Normocephalic?and atraumatic.Mouth/Throat: Oropharynx is clear and moist.Eyes: EOM?are normal. Pupils are equal, round, and reactive to light.Neck: Normal range of motion. No tracheal deviation?present.Cardiovascu lar: Normal heart sounds?and intact distal pulses. Anirregularly irregular rhythm present. Tachycardia?present. Heart rangesfrom 105-125 bpm.Pulmonary/Chest: Effort normal?and breath sounds normal. Tachypnea noted.No respiratory distress.Abdominal: Firm. Distention noted. Bowel sounds are normal. There is notenderness with palpation. There is no rebound or guarding noted.Musculoskeletal: Normal range of motion. He exhibits no edema?ordeformity.Neurologica l: He is alert?and oriented to person, place, and time. He hasnormal reflexes. No cranial nerve deficit.Skin: Skin is warm?and dry.Psychiatric: He has a normal mood and affect. His behavior is normal.Judgment?normal.Curren t Facility-Administered Medications:ondansetron (PF) 4 mg injection (ZOFRAN) 4 mg INTRAVENOUS q 6 H PRNAlessandra (Res) [place] 4 mg at 09/13/17 0013NaCl 0.9% iv infusion 100 mL/hr INTRAVENOUS CONTINUOUS Safal N (Res) PatelLast Rate: 100 mL/hr at 09/14/17 0351 100 mL/hr at 09/14/17 0351dilTIAZem 100 mg in D5W 100 mL ADD-Arvilla (CARDIZEM) 5-15 mg/hrINTRAVENOUS CONTINUOUS Safal N (Res) Avalos Last Rate: 5 mL/hr at 730 5 mg/hr at 09/14/17 86307.9% NaCl 10 mL 10 mL INTRAVENOUS q 12 H Safal N (Res) Patel0.9% NaCl 20 mL 20 mL INTRAVENOUS PRN Safal N (Res) Patelbenzocaine-menthol 1 Lozenge (CEPACOL) 1 Lozenge MUCOUS MEMBRANE (TOPICALMOUTH AND THROAT) q 2 H PRN Ravkiran (Res) Ritesh 1 Lozenge at 251264nxfgenkbzy 20 % mucosal spray (HURRICAINE ONE) MUCOUS MEMBRANE QID PRNAmit Diwakariv contrast (radiology procedure) INTRAVENOUS DIRECTED PRN Raul(Res) Guzowskipotassium chloride 80-120 mEq oral liquid 80-120 mEq ORAL/FEEDING TUBE PRNAlessandra (Res) Bouffordpotassium chloride iv piggyback 20 mEq in sterile water 100 mL 20 mEqINTRAVENOUS PRN Annel (Res) Bouffordmagnesium sulfate in water 2 g in sterile water 50 ml 2 g INTRAVENOUS PRNAlessandra (Res) [place] Last Rate: 25 mL/hr at 09/12/17 2320 2 g at09/12/17 2320sodium phosphate 45 mmol in NaCl 0.9% 250 mL 45 mmol INTRAVENOUS PRNAlessandra (Res) [place] Last Rate: 41.67 mL/hr at 09/14/17 0548 45 mmolat 09/14/17 0548calcium gluconate 4 g in NaCl 0.9% 250 mL 4 g INTRAVENOUS PRN Annel(Res) [place] Last Rate: 62.5 mL/hr at 09/14/17 0502 4 g at 09/14/17 0502enoxaparin 40 mg injection (LOVENOX) 40 mg SUBCUTANEOUS DAILY Annel(Res) [place] 40 mg at 09/13/17 1133pantoprazole 40 mg injection (PROTONIX) 40 mg INTRAVENOUS DAILY (6 AM)Annel (Res) [place] 40 mg at 09/14/17 0502Notable morning labs:Labs:CBC:Recent Labs 09/13/1802WBC 7.20 7.97 9.36*HB 8.2* 9.1* 9.9*HCT 26.1* 28.4* 30.0*PLT 210 212 258MCV 89.7 90.4 86.7COAG:Recent Labs INR 1.13BMP:Recent Labs 09/13/1802GLUC 72 90 92NA 137 135* 131*K 3.5 4.1 3.3*CHLOR 108* 106 93*CO2 23 27 30ANION 10 6* 11BUN 10 20* 34*CREAT 0.52* 0.67 0.84CHEM:Recent Labs 09/13/1802LB -- -- 3.2*TPROT -- -- 6.2*CA 7.0* 7.8* 9.3MG 2.1 -- 1.8HEPATIC:Recent Labs 09/12/1813LKPHOS -- 51ALT -- 21AST -- 16TBILI -- 0.4LIPASE 639* --GFR: > 60Phosphorus: 1.3Magnesium: 2.9SX41-6: 8.1Intake/Output Summary (Last 24 hours) at 09/14/17 0758Last data filed at 09/14/17 0740 Gross per 24 hourIntake 2724.2 mlOutput 3875 mlNet -1150.8 mlSerum creatinine: 0.52 mg/dL (L) 09/14/17 0340Estimated creatinine clearance: 128.4 mL/min (A)Imaging:CT CHEST/ABD/PELVIS (09/13/17):IMPRESSION:?High-gr cassandra gastric outlet obstruction.?Fluid density mass or masses within the head and uncinate of the pancreas.?Differential considerations include pseudocysts, cystic neoplasm andintraductalpapillary mucinous neoplasm. ?Alternatively, findings could potentiallyrepresentdilated pancreatic duct.?Several indeterminate nodular densities in the pancreaticoduodenal regionwithassociated infiltration of fat and periduodenal fluid.?Innumerable pulmonary nodules, predominantly calcified, but alsononcalcifiedscattered throughout both lungs. ?The majority of pulmonary nodulesmeasure lessthan 4 mm in size. ?On the right, there are centrilobular nodules andgroundglassopacity within the medial lower lobe possibly inflammatory or infectious.?Thereis small volume consolidation within the posterior costophrenic angle,possibleatelectasis or pneumonia. ?On the left, there is small volumeconsolidation inprofile with the inferior major fissure at the lung base suggestingatelectasis. ?There is an indeterminate ill-defined subpleural nodule redemonstratedwithin theposterior lower lobe. ?There is small volume consolidation within theposteriorcostophrenic angle, possible atelectasis or pneumonia, with very smallpleuraleffusion.?Contrac richmond gallbladder with multiple radiopaque gallstones. ?There is mildgallbladder wall thickening and infiltration of pericholecystic fat.?Correlateclinically with clinical concern for acute gallstones.?Dilated distal thoracic aortic arch-proximal descending thoracic aortameasuring 4?cm in diameter. ?The descending thoracic aorta mildly tapers in diameterdistally.?Hepatic cysts.?1 cm hypervascular nodule within the medial spleen.?Bilateral renal cortical cystic lesions, the joint too small tocharacterize by CT?criteria.AssessmentPatient is a 72 year old white male with PMH of A fib, CHF, COPD, HTN, andGI bleed due to antral ulcers, who presents with A fib with RVR,pancreatic head mass, and gastric outlet obstruction. Concern for possiblegastrinoma vs adenocarcinoma of pancreas.Plan1) A fib with RVRCurrently on diltiazem drip. Received one dose of digoxin and lopressoryesterday.Continue to monitor BP to assess for hypotension.Not on anticoagulation due to GI bleedEP on board?2) Pancreatic mass and Gastric outlet obstructionSurgery followingCurrently NPOContinue NGT to LIWSContinue protonixf/u gastrinStart TPN?3) Recent upper GI bleed s/p angio-embolization of gastroduodenal andgastroepiploic arteries in June 2017.GI consulted for repeat EGD. Plan for EGD tomorrow as per Dr Dominguez?4) Hypotension: monitor blood pressure?5) Chronic normocytic anemia?Signed: Jorje Avalos, MDDate: September 14, 2017Time: 7:58 AM [facility] Protein mass conc HNO ID: [id number] thor: Vicki (Res) Katie: General SurgeryAuthor Type: ResidentType: Progress NotesFiled: 09/14/2017 8:14 AMNote Text: At testation signed by Venus Foster at 09/14/2017 2:25 PMAttending NoteI personally saw and examined the patient. I reviewed the resident's note. Ana Mariaee with the resident's assessment and plan with the following revisionsand/or additions: await EGD. GOO may be due to ulcer rather than tumorSignature: SREE Quinnate: 09/14/2017Time: 2:25 PM [facility] Surgery Progress NoteSERVICE DATE: 09/14/2017SUBJECTIVE:Pt doing okay. No N/V. NG tube in place.DIET NPOOBJECTIVE:Temp (24hrs), Av.1 ?C (97 ?F), Min:35.5 ?C (95.9 ?F), Max:36.5 ?C(97.7 ?F)BP 116/80 Pulse 106 Temp (!) 35.5 ?C (95.9 ?F) Resp 23 Ht175.3 cm (5' 9.02") Wt 84.3 kg (185 lb 13.6 oz) SpO2 98% BMI27.43 kg/m?O2 Therapy: Nasal CannulaDate 09/13/17 0700 - 09/14/17 0659 09/14/17 07 - 09/15/17 0659Shift 3203-3828 7116-1097 3306-1483 24 Hour Total 2555-5087 [id number] 24 Hour TotalINTAKE PO 0 0 0 0 PO 0 0 0 0 IV 569 830.5 1287 2686.5 IVPB 250 250 NS 0.9% 472 690 614 7967 Calcium IVPB 250 250 Diltiazem Volume 97 105.5 32 234.5 Irrigants 60 60 Irrigant/Flush Amount In ([REMOVED] GI Feed/Drain 09/12/17 0700Nasogastric Right 09/13/17 1321) 60 60 Shift Total 629 830.5 1287 2746.5OUTPUT Urine 1200 511 533 2355 Void (ml) 370 370 Tube Output ( Indwelling Urinary Catheter 09/13/17 1145 Miranda 16Fr) 830 443 148 6014 Tubes 770 100 100 970 Output ([REMOVED] GI Feed/Drain 09/12/17 0700 Nasogastric Right09/13/17 1321) 20 0 20 Output (GI Feed/Drain 09/13/17 1322 Nasogastric Right Naris 18 Fr) [id number] 100 950 # of BMs Number of BMs 0 x 0 x 0 x Shift Total 1970 855 940 3765Weight (kg) 80.9 80.9 84.3 84.3 84.3 84.3 84.3 84.3Current Facility-Administered Medications:ondansetron (PF) 4 mg injection (ZOFRAN) 4 mg INTRAVENOUS q 6 H PRNNaCl 0.9% iv infusion 100 mL/hr INTRAVENOUS CONTINUOUSdilTIAZem 100 mg in D5W 100 mL ADD-Arvilla (CARDIZEM) 5-15 mg/hrINTRAVENOUS CONTINUOUS0.9% NaCl 10 mL 10 mL INTRAVENOUS q 12 H0.9% NaCl 20 mL 20 mL INTRAVENOUS PRNbenzocaine-menthol 1 Lozenge (CEPACOL) 1 Lozenge MUCOUS MEMBRANE (TOPICALMOUTH AND THROAT) q 2 H PRNbenzocaine 20 % mucosal spray (HURRICAINE ONE) MUCOUS MEMBRANE QID PRNiv contrast (radiology procedure) INTRAVENOUS DIRECTED PRNpotassium chloride 80-120 mEq oral liquid 80-120 mEq ORAL/FEEDING TUBE PRNpotassium chloride iv piggyback 20 mEq in sterile water 100 mL 20 mEqINTRAVENOUS PRNmagnesium sulfate in water 2 g in sterile water 50 ml 2 g INTRAVENOUS PRNsodium phosphate 45 mmol in NaCl 0.9% 250 mL 45 mmol INTRAVENOUS PRNcalcium gluconate 4 g in NaCl 0.9% 250 mL 4 g INTRAVENOUS PRNenoxaparin 40 mg injection (LOVENOX) 40 mg SUBCUTANEOUS DAILYpantoprazole 40 mg injection (PROTONIX) 40 mg INTRAVENOUS DAILY (6 AM)Recent Labs 09/13/1802426NA 137 135* 131*K 3.5 4.1 3.3*CHLOR 108* 106 93*CO2 23 27 30BUN 10 20* 34*CREAT 0.52* 0.67 0.84GLUC 72 90 92ANION 10 6* 11CA 7.0* 7.8* 9.3MG 2.1 -- 1.8P 1.3* -- --ALB -- -- 3.2*AST -- -- 16ALT -- -- 21ALKPHOS -- -- 51TBILI -- -- 0.4WBC 7.20 7.97 9.36*HB 8.2* 9.1* 9.9*HCT 26.1* 28.4* 30.0*PLT 210 212 258INR -- -- 1.13CT CHEST/ABD/PELVIS (09/13/17):IMPRESSION:?High-gr cassandra gastric outlet obstruction.?Fluid density mass or masses within the head and uncinate of the pancreas.?Differential considerations include pseudocysts, cystic neoplasm andintraductalpapillary mucinous neoplasm. ?Alternatively, findings could potentiallyrepresentdilated pancreatic duct.?Several indeterminate nodular densities in the pancreaticoduodenal regionwithassociated infiltration of fat and periduodenal fluid.?Innumerable pulmonary nodules, predominantly calcified, but alsononcalcifiedscattered throughout both lungs. ?The majority of pulmonary nodulesmeasure lessthan 4 mm in size. ?On the right, there are centrilobular nodules andgroundglassopacity within the medial lower lobe possibly inflammatory or infectious.?Thereis small volume consolidation within the posterior costophrenic angle,possibleatelectasis or pneumonia. ?On the left, there is small volumeconsolidation inprofile with the inferior major fissure at the lung base suggestingatelectasis. ?There is an indeterminate ill-defined subpleural nodule redemonstratedwithin theposterior lower lobe. ?There is small volume consolidation within theposteriorcostophrenic angle, possible atelectasis or pneumonia, with very smallpleuraleffusion.?Contrac [place] gallbladder with multiple radiopaque gallstones. ?There is mildgallbladder wall thickening and infiltration of pericholecystic fat.?Correlateclinically with clinical concern for acute gallstones.?Dilated distal thoracic aortic arch-proximal descending thoracic aortameasuring 4?cm in diameter. ?The descending thoracic aorta mildly tapers in diameterdistally.?Hepatic cysts.?1 cm hypervascular nodule within the medial spleen.?Bilateral renal cortical cystic lesions, the joint too small tocharacterize by CT?criteria.Exam:GENERAL: No distress, AlertNEURO: [id number]: normocephalic, atraumaticLUNGS: Unlabored breathingCARDIAC: Regular rate and rhythm as aboveABDOMEN: soft, nondistended, no ttpEXTREMITIES: JERONIMO, No deformities, No edemaSKIN: Skin color, texture, turgor normal, No rashes or lesionsASSESSMENT AND PLAN:Active Hospital Problems Diagnosis Date Noted- Atrial fibrillation with RVR (HCC) 09/12/2017- Severe protein-calorie malnutrition (HCC) 07[birth year]03/[birth year]772 YOM with likely pancreatic head mass and GOO. Sent to ED fromendoscopy for A-fib/RVR. Concerning for possible gastrinoma vs adenoCA ofpancreas. H/o antral ulcers AND hpylori?- A-fib mgnt per medicine- protonix- NGT to LIWS- CEA= 1.7, CA 19 9= 8.1- f/u gastrin- continue PPI- GI consulted to repeat EGD- per consult, will scope, unsure of timing?Vicki Breaux, DOGeneral Surgery PGY-4May 2017 6:21 AMPager: [phone] Normal [facility] Phosphorus Bloodon 8 Phosphate 1.3 mg/dL Critically low 2.5-4.[address] [facility] Comment on above: Performed By: #### P T ####[place] [address] Prealbuminon 09-14-2017 Prealbumin 12.8 mg/dL Low 20.0-40.[address] [facility] Comment on above: Performed By: #### P T ####[place] [address] Basic Panelon 09-13-2017 Creatinine 0.67 mg/dL Normal 0.67-1.[address] [facility] Comment on above: Performed By: #### P T ####[place] [address] Anion gap 6 mmol/L Low 8-[address] [facility] Comment on above: Performed By: #### P T ####[place] [address] CO2 27 mmol/L Normal 21-[address] [facility] Comment on above: Performed By: #### P T ####[place] [address] Glucose mass conc 90 mg/dL Normal 70-[address] [facility] Comment on above: Performed By: #### P T ####[place] [address] Urea nitrogen 20 mg/dL High 7-[address] [facility] Comment on above: Performed By: #### P T ####[place] [address] Calcium 7.8 mg/dL Low 8.5-10.[address] [facility] Comment on above: Performed By: #### P T ####[facility] [place] [address] Chloride 106 mmol/L Normal 98-[address] [facility] Comment on above: Performed By: #### P T ####[facility] [place] [address] Potassium molar conc 4.1 mmol/L Normal 3.5-5.1 [facility] Comment on above: Performed By: #### P T ####[facility] [place] [address] Sodium 135 mmol/L Low 136-[address] [facility] Comment on above: Performed By: #### P T ####[place] [address] [id number] 09-13-2017 CA19-9 8.1 U/ml Normal 0.0-35.[address] [facility] Comment on above: Performed By: #### P T ####[place] [address] CASE MANAGEMon 09-13-2017 CASE MANAGEM HNO ID: [id number] thor: Zoë (Rn) Benjamin, RNService: Care ManagementAuthor Type: Registered NurseType: Care Mgt Progress NoteFiled: 09/13/2017 3:15 PMNote Text:CARE MANAGEMENT PROGRESS NOTESERVICE DATE: 09/13/2017SERVICE TIME: 1512 LOS: 1 dayPatient unavailable (undergoing a bedside procedure). Will attempt toassess tomorrow.SIGNATURE: Zoë Alexander RN PATIENT NAME: Cristina JeffreyDATE: September 13, 2017 : 3:12 PM CONTACT #: [id number] Normal [facility] CHEST 1 VIEWon 09-13-2017 CHEST 1 VIEW Performed at [facility] APPROVED BY: Davon Sorensen MD EXAMINATION: CHEST RADIOGRAPH (SINGLE VIEW AP OR PA) Clinical History: SOB, pneumothorax suspected status post PICC line placementM: [id number]: 09/12/2017 RESULT: Lines, tubes, and devices: NG tube course into the left upper quadrant.Right-sided PICC line the tip near the caval atrial junction. Lungs and pleura: No consolidation. No lung mass. No pleural effusion. Cardiomediastinal silhouette: Normal cardiomediastinal silhouette. Other: IMPRESSION: No acute radiographic abnormality. Right-sided PICC line the tip near the caval atrial junction. Normal [facility] CONSULTon 09-13-2017 CONSULT HNO ID: [id number] thor: Toshia ([facility]) Domingoervice: GastroenterologyAuthor Type: Nurse SpecialistType: ConsultsFiled: 09/13/2017 3:21 PMNote Text:INITIAL CONSULT GASTROENTEROLOGYSERVICE DATE: 09/13/2017SERVICE TIME: 3:02 PMConsulting Service: Critical Care, General SurgeryOpinion/advice regarding: GI bleed and gastric outlet obstructionSubjectiveHPI: This is a 72 year old male who presents with atrial fibrillationwith RVR that was found during the pre-operative assessment prior to EGD.The EGD was cancelled and he was sent to the ED and subsequently admittedfor evaluation. He had 2 EGD's and an IR procedure earlier this year forevaluation of melena and anemia. EGD on Jun 21 showed Multiple antralulcers with 1 large ulcer with a visible vessel at its base asthe source of bleeding and a large ulcer at the pre-pyloric region.Repeat EGD on June 23 showed NG tube induced mucosal tear at the GEjunction and multiple ulcers at the distal antrum and pyloric channel withsignificant deformity. The previously Endoclipped and epinephrine injectedulcer was not bleeding and?visible vessel has resolved, but there was a large pyloric channel ulcerwith deformity and stenosis with intermittent?oozing of blood diffuselywithout any visible vessel. He then went to IR on June 23 for embolizationof active extravasation from branch vessels arising from thegastroduodenal and gastroepiploic arteries. The EGD scheduled yesterdaywas for surveillance or previous ulcers. CT abdomen/pelvis done yesterdayshowed findings of gastric outlet obstruction. GI was consulted forevaluation of gastric outlet obstruction and to reschedule the EGD thatwas cancelled yesterday.PAST MEDICAL HISTORYDiagnosis Date- Afib (HCC)- CHF (congestive heart failure) (HCC)- COPD (chronic obstructive pulmonary disease) (HCC)- HypertensionPAST SURGICAL HISTORYProcedure Laterality Date- EGD 06/21/2017 Multiple antral ulcers with 1 large ulcer with a visible vessel at itsbase as the source of bleeding. A large ulcer at the pre-pyloric region- EGD 06/23/2017 NG tube induced mucosal tear at GE junction, without bleeding. Multipleulcers at distal antrum and pyloric channel with significant deformity.Previously Endoclipped and epinephrine injected ulcer is not bleeding andvisible vessel has resolved. Large pyloric channel ulcer with deformityand stenosis with intermittent oozing of blood diffusely without anyvisible vessel. Normal duodenum- TUMOR REMOVAL (SPECIFY LOCATION) HX breast, childhoodNo family history on file.Social HistorySubstance Use Topics- Smoking status: Never Smoker- Smokeless tobacco: Never Used- Alcohol use No Comment: quit 6 months agoMEDICATIONS:Prior to Admission Medications:ergocalciferol, vitamin D2, (VITAMIN D) 50,000 unit capsule Take 50,000Units by mouth once each week.potassium chloride 20 mEq/kg/dose once daily.carvedilol (COREG) 12.5 mg tabletlisinopril (ZESTRIL, PRINIVIL) 20 mg tabletpredniSONE (DELTASONE) 10 mg tabletmetoprolol tartrate, short acting, (LOPRESSOR) 50 mg tablet Take 1 tabletby mouth every 8 hours.diltiazem CD (CARDIZEM CD, CARTIA XT) 240 mg 24 hr capsule Take 1 capsuleby mouth once daily.pantoprazole DR (PROTONIX) 40 mg tablet Take 1 tablet by mouth twicedaily.Bismuth Subsalicylate (PEPTO-BISMOL) 262 mg tab Take 1 tablet by mouthtwice daily for 14 days.Vit A,C,B-Grrl-Dtzmgk (PRESERVISION AREDS) 14,320-226-200 hnvy-qt-okuiink Take 1 capsule by mouth twice daily.albuterol (PROVENTIL) 2.5 mg /3 mL (0.083 %) nebulizer solution Use 2.5 mgvia nebulizer every 4 hours as needed for Wheezing/Shortness of Breath.pravastatin (PRAVACHOL) 40 mg tablet Take 40 mg by mouth once daily.budesonide-formoterol (SYMBICORT) 160-4.5 mcg/actuation inhaler Inhale 1Puff as instructed twice daily.guaiFENesin (MUCINEX) 600 mg 12 hr tablet Take 1,200 mg by mouth twicedaily.furosemide (LASIX) 40 mg tablet Take 40 mg by mouth twice daily.Current hospital medications:ondansetron (PF) 4 mg injection (ZOFRAN) 4 mg INTRAVENOUS q 6 H PRNNaCl 0.9% iv infusion 100 mL/hr INTRAVENOUS CONTINUOUSdilTIAZem 100 mg in D5W 100 mL ADD-Arvilla (CARDIZEM) 5-15 mg/hrINTRAVENOUS CONTINUOUSlidocaine 10 mg/mL (1 %) 10-20 mg injection (XYLOCAINE) 1-2 mL INTRADERMALONCE0.9% NaCl 10 mL 10 mL INTRAVENOUS q 12 H0.9% NaCl 20 mL 20 mL INTRAVENOUS PRNiv contrast (radiology procedure) INTRAVENOUS DIRECTED PRNiv contrast (radiology procedure) INTRAVENOUS DIRECTED PRNpotassium chloride 80-120 mEq oral liquid 80-120 mEq ORAL/FEEDING TUBE PRNpotassium chloride iv piggyback 20 mEq in sterile water 100 mL 20 mEqINTRAVENOUS PRNmagnesium sulfate in water 2 g in sterile water 50 ml 2 g INTRAVENOUS PRNsodium phosphate 45 mmol in NaCl 0.9% 250 mL 45 mmol INTRAVENOUS PRNcalcium gluconate 4 g in NaCl 0.9% 250 mL 4 g INTRAVENOUS PRNenoxaparin 40 mg injection (LOVENOX) 40 mg SUBCUTANEOUS DAILYpantoprazole 40 mg injection (PROTONIX) 40 mg INTRAVENOUS DAILY (6 AM)ALLERGIESNo Known AllergiesGI SPECIFIC REVIEW OF SYSTEMS:Positive for abdominal pain, nausea, vomiting,Negative for heartburn, acid refluxNegative for decreased appetite, decreased oral intakeNegative for change in weightNo alteration in bowel habitsOTHER ROS:Negative for fever, night sweats, sleep problems, mood or depression.PAIN ASSESSMENT: CURRENTLY HAVING PAIN; Generalized abdominal painGENERAL: No weight loss, malaise or feversHEENT: Negative for frequent or significant headaches, No changes inhearing or vision, no nose bleeds or other nasal problemsNECK: Negative for lumps, goiter, pain and significant neck swellingRESPIRATORY: Shortness of breathCARDIOVASCULAR: Negative for chest pain, leg swelling, hypertension, CHFor palpitationsGU: No history of dysuria, frequency or incontinenceMUSCULOSKELETAL: Negative for joint pain or swelling, back pain or musclepainSKIN: Negative for lesions, rash, and itchingPSYCH: Negative for sleep disturbance, mood disorder and recentpsychosocial stressorsHEMATOLOGY/LYMPHOLOG Y: Negative for prolonged bleeding, bruising easily orswollen nodesENDOCRINE: Negative for cold or heat intolerance, polyuria, polydipsia andgoiterNEURO: No history of headaches, syncope, paralysis, seizures or tremorsObjectivePHYSICAL EXAM:BP 103/68 Pulse 117 Temp 36 ?C (96.8 ?F) (Axillary) Resp 26 Ht175.3 cm (5' 9.02") Wt 80.9 kg (178 lb 5.6 oz) SpO2 97% BMI 26.33kg/m?GENERAL- AAO x 3, no distress. NG in place with dark drainage.HEENT: Dry mucus membranes. Tongue midlineLUNGS: Clear to auscultation bilaterallyCARDIAC: S1, S2 heard. Heart rate tachycardic and irregular.ABDOMEN: Softly distended with diffuse minimal tenderness without guardingor rigidity, normal bowel soundsEXTREMITIES: No pedal edemaDATA:Diagnostic Tests Reviewed for Today's Visit:Most recent labs and imaging results.CBC, Coags, BMP, Mg, PhosRecent Labs 09/12/1813WBC 7.97 9.36*HB 9.1* 9.9*HCT 28.4* 30.0*PLT 212 258INR -- 1.13NA 135* 131*K 4.1 3.3*CHLOR 106 93*CO2 27 30BUN 20* 34*CREAT 0.67 0.84GLUC 90 92CA 7.8* 9.3MG -- 1.8CSF AND DilantinLiver Function, Amylase, AND LipaseRecent Labs 09/12/1813TPROT -- 6.2*ALB -- 3.2*ALT -- 21AST -- 16ALKPHOS -- 51TBILI -- 0.4LIPASE 639* --Cardiac EnzymesABGsImpression/Recomme ndationsPancreatic mass with suspected gastric outlet obstruction - currently hasNG- General surgery following. CT scans pending. Considering surgeryHistory of Gastric ulcers and pyloric channel ulcers- s/p endoclip, EPIinjection and IR embolization. Was scheduled for repeat EGD yesterday -but procedure was cancelled due to Afib-RVR- Reschedule EGD. Dr. Dominguez to determine timing due to continued atrialfibrillationGI will continue to followThank you for the consultSIGNATURE: Toshia Epperson APRN.CNS PATIENT NAME: Cristina JeffreyDATE: September 13, 2017 : 3:02 PM PAGER/CONTACT #: [phone] [facility] [address] ABDOMEN AND PELVIS WITH C ONTRASTon 09-13-2017 CT ABDOMEN AND PELVIS WITH CONTRAST Performed at [facility] APPROVED BY: Guillermo Ulloa MD EXAMINATION: CT CHEST WITH IV CONTRAST and CT ABDOMEN AND PELVIS WITH IV CONTRAST CLINICAL HISTORY: Follow-up abnormal CT abdomen and pelvis study 09/12/2017. Pulmonary nodules. TECHNIQUE: CT of the chest from the thoracic inlet to the upper abdomen is performed following IV contrast. CT of the abdomen and pelvis is performed using pancreatic protocol, scanning from just above the dome of the diaphragm to the symphysis pubis. MQ: CTCAPW_4 Contrast: 150 mL of Omnipaque 300 IVCT Dose-Length Product: 1240.53 mGy*cmCT Dose Reduction Employed: mAs or kVp is manually adjusted based on either the patient size or age for the chest with automated exposure control for the abdomen and pelvis. COMPARISON: CT abdomen and pelvis study 09/12/2017. RESULT: Chest: There is underlying centrilobular emphysema. There are innumerable pulmonary nodules, predominantly calcified, but also noncalcified scattered throughout both lungs. The majority of pulmonary nodules measure less than 4 mm in size. On the right, there are centrilobular nodules and groundglass opacity within the medial lower lobe. There is small volume consolidation within the posterior costophrenic angle. On the left, there is small volume consolidation in profile with the inferior major fissure at the lung base. There is an ill-defined subpleural nodule redemonstrated within the posterior lower lobe measuring approximately 8 mm in size, image 139 of series 2. There is small volume consolidation within the posterior costophrenic angle with very small pleural effusion. There is mild anterior pericardial wall thickening and/or small pericardial effusion. Mediastinal lymph nodes measure less than 1 cm in short axis. The ascending thoracic aorta measures 3.6 cm in diameter at the level the right pulmonary artery. The distal aortic arch and proximal descending thoracic aorta is dilated measuring approximately 4 cm in diameter. The descending thoracic aorta mildly tapers in diameter distally. The distal descending thoracic aorta measuring 3.5 cm in diameter. There is moderate atherosclerotic calcification of the descending thoracic aorta. There is no pathologically enlarged axillary lymphadenopathy. There is no acute osseous abnormality. There is an enteric tube extending into the stomach. Abdomen / Pelvis: There are a couple of hypodense lesions within the left lobe of the liver measuring water attenuation. The lesions measure 2.6 cm and 3 cm in size, consistent with the presence of cysts. There is a 1 cm hypodense lesion at the dome of the liver and a 0.5 cm hypodense lesion within the lateral segment left lobe of liver, both considered too small to further characterize. The gallbladder is contracted. There are multiple faceted radiopaque gallstones. The gallbladder wall appears mildly thickened. There is mild pericholecystic infiltration. There is no biliary duct dilatation. There is a 1 cm hypervascular nodule within the medial spleen. There is redemonstration of a tubular fluid density structure within the head of the pancreas. The fluid density structure measures approximately 1.5 x 3 cm in size. There is a 2 cm fluid density structure within the uncinate of the pancreas. Whether representing two contiguous fluid density structures or a single cystic structure complicated by septation is uncertain. The body and tail of the pancreas appear atrophic although the pancreatic duct is not dilated with either the body or tail. There is no adrenal mass. There are multiple bilateral hypodense renal cortical nodules, the majority are subcentimeter in size and too small to characterize. There is a 4 cm cyst within lateral lower pole right kidney complicated by septation. There is no hydronephrosis. There is redemonstration of a severely fluid distended stomach and severely narrowed gastroesophageal junction. There are several nodular densities in the pancreaticoduodenal region with infiltration of fat and periduodenal fluid. The small bowel is not dilated. There is hyperattenuating material within the transverse, descending and rectosigmoid colon. There is diverticulosis of the sigmoid colon. There are no findings of acute diverticulitis. There is diffuse severe atherosclerotic calcification of the abdominal aorta without aneurysm. The celiac and superior mesenteric arteries are patent. The SMV, splenic, portal and hepatic veins are patent. There are multiple pelvic calcifications. The prostate gland is enlarged causing mass effect on the floor of the urinary bladder There is no acute osseous abnormality. IMPRESSION: High-grade gastric outlet obstruction. Fluid density mass or masses within the head and uncinate of the pancreas. Differential considerations include pseudocysts, cystic neoplasm and intraductal papillary mucinous neoplasm. Alternatively, findings could potentially represent dilated pancreatic duct. Several indeterminate nodular densities in the pancreaticoduodenal region with associated infiltration of fat and periduodenal fluid. Innumerable pulmonary nodules, predominantly calcified, but also noncalcified scattered throughout both lungs. The majority of pulmonary nodules measure less than 4 mm in size. On the right, there are centrilobular nodules and groundglass opacity within the medial lower lobe possibly inflammatory or infectious. There is small volume consolidation within the posterior costophrenic angle, possible atelectasis or pneumonia. On the left, there is small volume consolidation in profile with the inferior major fissure at the lung base suggesting atelectasis. There is an indeterminate ill-defined subpleural nodule redemonstrated within the posterior lower lobe. There is small volume consolidation within the posterior costophrenic angle, possible atelectasis or pneumonia, with very small pleural effusion. Contracted gallbladder with multiple radiopaque gallstones. There is mild gallbladder wall thickening and infiltration of pericholecystic fat. Correlate clinically with clinical concern for acute gallstones. Dilated distal thoracic aortic arch-proximal descending thoracic aorta measuring 4 cm in diameter. The descending thoracic aorta mildly tapers in diameter distally. Hepatic cysts. 1 cm hypervascular nodule within the medial spleen. Bilateral renal cortical cystic lesions, the joint too small to characterize by CT criteria. Normal [facility] CT CHEST WITH CONTRASTon CT CHEST WITH CONTRAST Performed at [facility] APPROVED BY: Guillermo Ulloa MD EXAMINATION: CT CHEST WITH IV CONTRAST and CT ABDOMEN AND PELVIS WITH IV CONTRAST CLINICAL HISTORY: Follow-up abnormal CT abdomen and pelvis study 09/12/2017. Pulmonary nodules. TECHNIQUE: CT of the chest from the thoracic inlet to the upper abdomen is performed following IV contrast. CT of the abdomen and pelvis is performed using pancreatic protocol, scanning from just above the dome of the diaphragm to the symphysis pubis. MQ: CTCAPW_4 Contrast: 150 mL of Omnipaque 300 IVCT Dose-Length Product: 1240.53 mGy*cmCT Dose Reduction Employed: mAs or kVp is manually adjusted based on either the patient size or age for the chest with automated exposure control for the abdomen and pelvis. COMPARISON: CT abdomen and pelvis study 09/12/2017. RESULT: Chest: There is underlying centrilobular emphysema. There are innumerable pulmonary nodules, predominantly calcified, but also noncalcified scattered throughout both lungs. The majority of pulmonary nodules measure less than 4 mm in size. On the right, there are centrilobular nodules and groundglass opacity within the medial lower lobe. There is small volume consolidation within the posterior costophrenic angle. On the left, there is small volume consolidation in profile with the inferior major fissure at the lung base. There is an ill-defined subpleural nodule redemonstrated within the posterior lower lobe measuring approximately 8 mm in size, image 139 of series 2. There is small volume consolidation within the posterior costophrenic angle with very small pleural effusion. There is mild anterior pericardial wall thickening and/or small pericardial effusion. Mediastinal lymph nodes measure less than 1 cm in short axis. The ascending thoracic aorta measures 3.6 cm in diameter at the level the right pulmonary artery. The distal aortic arch and proximal descending thoracic aorta is dilated measuring approximately 4 cm in diameter. The descending thoracic aorta mildly tapers in diameter distally. The distal descending thoracic aorta measuring 3.5 cm in diameter. There is moderate atherosclerotic calcification of the descending thoracic aorta. There is no pathologically enlarged axillary lymphadenopathy. There is no acute osseous abnormality. There is an enteric tube extending into the stomach. Abdomen / Pelvis: There are a couple of hypodense lesions within the left lobe of the liver measuring water attenuation. The lesions measure 2.6 cm and 3 cm in size, consistent with the presence of cysts. There is a 1 cm hypodense lesion at the dome of the liver and a 0.5 cm hypodense lesion within the lateral segment left lobe of liver, both considered too small to further characterize. The gallbladder is contracted. There are multiple faceted radiopaque gallstones. The gallbladder wall appears mildly thickened. There is mild pericholecystic infiltration. There is no biliary duct dilatation. There is a 1 cm hypervascular nodule within the medial spleen. There is redemonstration of a tubular fluid density structure within the head of the pancreas. The fluid density structure measures approximately 1.5 x 3 cm in size. There is a 2 cm fluid density structure within the uncinate of the pancreas. Whether representing two contiguous fluid density structures or a single cystic structure complicated by septation is uncertain. The body and tail of the pancreas appear atrophic although the pancreatic duct is not dilated with either the body or tail. There is no adrenal mass. There are multiple bilateral hypodense renal cortical nodules, the majority are subcentimeter in size and too small to characterize. There is a 4 cm cyst within lateral lower pole right kidney complicated by septation. There is no hydronephrosis. There is redemonstration of a severely fluid distended stomach and severely narrowed gastroesophageal junction. There are several nodular densities in the pancreaticoduodenal region with infiltration of fat and periduodenal fluid. The small bowel is not dilated. There is hyperattenuating material within the transverse, descending and rectosigmoid colon. There is diverticulosis of the sigmoid colon. There are no findings of acute diverticulitis. There is diffuse severe atherosclerotic calcification of the abdominal aorta without aneurysm. The celiac and superior mesenteric arteries are patent. The SMV, splenic, portal and hepatic veins are patent. There are multiple pelvic calcifications. The prostate gland is enlarged causing mass effect on the floor of the urinary bladder There is no acute osseous abnormality. IMPRESSION: High-grade gastric outlet obstruction. Fluid density mass or masses within the head and uncinate of the pancreas. Differential considerations include pseudocysts, cystic neoplasm and intraductal papillary mucinous neoplasm. Alternatively, findings could potentially represent dilated pancreatic duct. Several indeterminate nodular densities in the pancreaticoduodenal region with associated infiltration of fat and periduodenal fluid. Innumerable pulmonary nodules, predominantly calcified, but also noncalcified scattered throughout both lungs. The majority of pulmonary nodules measure less than 4 mm in size. On the right, there are centrilobular nodules and groundglass opacity within the medial lower lobe possibly inflammatory or infectious. There is small volume consolidation within the posterior costophrenic angle, possible atelectasis or pneumonia. On the left, there is small volume consolidation in profile with the inferior major fissure at the lung base suggesting atelectasis. There is an indeterminate ill-defined subpleural nodule redemonstrated within the posterior lower lobe. There is small volume consolidation within the posterior costophrenic angle, possible atelectasis or pneumonia, with very small pleural effusion. Contracted gallbladder with multiple radiopaque gallstones. There is mild gallbladder wall thickening and infiltration of pericholecystic fat. Correlate clinically with clinical concern for acute gallstones. Dilated distal thoracic aortic arch-proximal descending thoracic aorta measuring 4 cm in diameter. The descending thoracic aorta mildly tapers in diameter distally. Hepatic cysts. 1 cm hypervascular nodule within the medial spleen. Bilateral renal cortical cystic lesions, the joint too small to characterize by CT criteria. Normal [facility] ED NOTEon 09-13-2017 ED NOTE HNO ID: [id number] thor: Claudio (Rn) KELLY Dollervice: Emergency MedicineAuthor Type: Registered NurseType: ED NotesFiled: 09/12/2017 10:02 PMNote Text: Report given to Gregory Harmon at this time. Aware of outstanding CT's tomorrowmorning. Bed not ready at this time Normal [facility] ED PROV NOTEon 09-13-2017 Protein mass conc HNO ID: [id number] thor: CANDICE Torreservice: Emergency MedicineAuthor Type: PhysicianType: ED Provider NotesFiled: 09/13/2017 7:17 AMNote Text:Attending NoteI evaluated the patient and personally participated in the rivera components. I personally saw and examined the patient. I reviewed the resident's orPA's note. I agree with the resident's or PA's assessment and plan unlessotherwise noted. I was present for the rivera portions of the procedure.HPI: 72 year old MALE with a history of COPD, atrial fibrillation presentsfor afib rvr found at pre-surg for endoscopy. Has had heartburn, feels itnow. Denies SOB. Family says he is always SOB. No CP palpitations. Despitebeing NPO, he did take his cardiac medications this morning, possiblecardizem and metoprolol. Anesthesia gave him esmolol for afib rvr. Ptreports abd bloating and distention but no pain.Vitals BP 95/66 Pulse (!) 133 Temp 36.3 ?C (97.3 ?F) (Oral) Resp(!) 30 Ht 175.3 cm (5' 9") Wt 86.2 kg (190 lb) SpO2 95% BMI28.06 kg/m?Gen AANDOx3, awake, moderate tachypneaNeuro NCAT PERRLA no focal neuro deficits MAECVS irreg irregPulm scattered wheeze and rhonchiAbd Soft NT +distention no fluid wave +BSExt no c/eMedical decision making:I spoke to anesthesiologist who sent patient here. Remains in afib rvr,EKG shows rate 149 with new t wave inversions II III old in lateral leads.BP now 104/66, getting IVF. Plan for cardizem bolus and possibly drip forrate control. CXR. Labs including BNP trop. Likely wheezing due to COPD.Abd distention without pain. When stabilized, CT of abd to r/o bowelobstruction, perforation.Radha Orta MD2:16 2017Radha Orta MD/ 0717 Normal [facility] Hemogram/Diffon 09-13-2017 Abs Immature Grans 0.07 thou/cmm High 0.00-0.05 [facility] Comment on above: Performed By: #### P T ####[place] [address] Abs. Baso 0.03 thou/cmm Normal 0.01-0.[address] [facility] Comment on above: Performed By: #### P T ####[place] [address] Abs. Sheridan 1.01 thou/cmm High 0.30-0.[address] [facility] Comment on above: Performed By: #### P T ####[place] [address] Abs. Neut (ANC) 5.01 thou/cmm Normal 1.78-5.[address] [facility] Comment on above: Performed By: #### P T ####[place] [address] Basophils/100 WBC Auto (Bld) 0.4 % Normal [facility] Comment on above: Performed By: #### P T ####[place] [address] Eosinophils 0.10 thou/cmm Normal 0.04-0.[address] [facility] Comment on above: Performed By: #### P T ####[facility] [place] [address] Eosinophils/100 leukocytes 1.3 % Normal [facility] Comment on above: Performed By: #### P T ####[place] [address] Erythrocyte distribution width Auto Ratio (RBC) 15.4 % High 11.6-14.[address] [facility] Comment on above: Performed By: #### P T ####[place] [address] Erythrocytes (RBC) 3.14 mil/cmm Low 4.63-6.08 [facility] Comment on above: Performed By: #### P T ####[place] [address] Hematocrit (HCT) 28.4 % Low 40.1-51.[address] [facility] Comment on above: Performed By: #### P T ####[place] [address] Hemoglobin mass conc (Bld) 9.1 g/dL Low 13.7-17.[address] [facility] Comment on above: Performed By: #### P T ####[place] [address] Immature Grans 0.90 % Normal [facility] Comment on above: Performed By: #### P T ####[place] [address] Lymphocytes 1.74 thou/cmm Normal 0.84-2.[address] [facility] Comment on above: Performed By: #### P T ####[place] [address] Lymphocytes/100 leukocytes 21.8 % Normal [facility] Comment on above: Performed By: #### P T ####[place] [address] MCH 29.0 pg Normal 25.7-32.[address] [facility] Comment on above: Performed By: #### P T ####[facility] [place], [place] [address] MCHC mass conc (RBC) 32.0 % Low 32.3-36.5 [facility] Comment on above: Performed By: #### P T ####[address] [address] MCV 90.4 fL Normal 83.2-95.[address] [facility] Comment on above: Performed By: #### P T ####[place] [id number] Monocytes/100 leukocytes 12.7 % Normal [facility] Comment on above: Performed By: #### P T ####[address] [address] Platelet mean volume (PMV) 9.7 fL Normal 8.7-12.[address] [facility] Comment on above: Performed By: #### P T ####[place] [address] Platelets 212 thou/cmm Normal 141-[address] [facility] Comment on above: Performed By: #### P T ####[address] [address] RDW SD 50.4 fl High 36.1-45.[address] [facility] Comment on above: Performed By: #### P T ####[address] [address] Seg Neutrophil 62.9 % Normal [facility] Comment on above: Performed By: #### P T ####[address] [address] WBC (Leukocytes) 7.97 thou/cmm Normal 4.23-9.[address] [facility] Comment on above: Performed By: #### P T ####[address] [address] MDRD GFRon 09-13-2017 eGFR (non-black) mL/min/{1.73_m2} Normal >60mL/m in/ 1.73m2 [facility] Comment on above: Result Comment: If t he patient is , multiply the result by 1.210. Performed By: #### P T ####[place] [address] NUTRITIONon 09-13-2017 NUTRITION HNO ID: [id number] thor: Monty (Clayton) OUMOU Glasservice: Nutrition TherapyAuthor Type: Registered DietitianType: NutritionFiled: 09/13/2017 12:40 PMNote Text:NUTRITION THERAPY INITIAL ASSESSMENTSERVICE DATE: 09/13/2017SERVICE TIME: 11:47 AMeval for TPN recommendationsRECOMMENDED MALNUTRITION DIAGNOSIS: SEVERE [id number] CUTEIn the context of Acute Illness or Injury based on:Unintentional Weight Loss: 1-2% over 1 weekInsufficient Energy Intake: less than or equal to 50% for greater than orequal to 5 daysSome mild muscle loss notedNUTRITION CARE PLAN:Problem, Etiology and Signs/Symptoms:Alternative nutrition route needed related to gastric outlet obstructionas evidenced by HPI, need for TPNIntervention:1) initiate TPN as clinically appropriate. (Line access?)TPN Rec: 107g AA, 1100kcals dextrose, 472kcals lipids, (2000kcals total)Coordination of Care:MICU Rounding teamMonitor and Evaluation:Goal: Meet >75% of estimated needsMonitor fluid/electrolyte balanceMonitor labs, I/Os, vital signs, weightDischarge Nutrition Recommendations:To be determinedPer HPI: Mr. Jeffrey is a 72 year old male who presented to the ED afterbeing sent from endoscopy. He was scheduled for EGD and the procedure wasnot performed because patient went into a-fib with RVR. He is not onanticoagulation. He was recently admitted for UGI bleed that requiredbranches of the GDA and gastroepiploic artery embolized on 06/23/2017. Hehad 2 EGDs that admission with clips/epi administration. He has recurrentgastric ulcers for the majority of his life according to patient. He hashad around 5-8 lb weight loss over the past few months. He has low gradeintermittent epigastric pain. He has been vomiting for the past day. Nofever/chill, SOB, dizziness. He is having bowel function and has beenpassing gas.Active Hospital Problems Diagnosis Date Noted- Atrial fibrillation with RVR ([facility]) 09/12/2017PAST MEDICAL HISTORYDiagnosis Date- Afib ([facility])- CHF (congestive heart failure) ([facility])- COPD (chronic obstructive pulmonary disease) ([facility])- HypertensionPresent Diet Order: NPOEnteral Access: NG, PICC insertion today?Nutritional Intake Prior to Admission: 0-25% estimated energy needs overthe past 2 week(s)Patient endorses vomiting episodes for the past 2 weeks [employer], and eatingvery little.GI symptoms: nausea and chewing problems-patient states he does not haveteeth/molars and does not want dentures. Patient states he is careful toeat foods that he knows he can chew well.Abdominal Exam: abdomen is firm and distendedIs the patient having any pain that is interfering with oral/enteralintake? NoANTHROPOMETRICSHeight: 175.3 cm (5' 9.02")Admission Weight: 86.2 kg (190 lb)Current Weight: 80.9 kg (178 lb 5.6 oz)Body mass index is 26.33 kg/m?. normal for ageWeight has decreased by 5.8 kg over 2- 3 months representing 7 % weightchange.Last Wt09/12/17 : 80.9 kg (178 lb 5.6 oz)09/12/17 : 81.6 kg (180 lb)07/26/17 : 81.6 kg (180 lb)07/02/17 : 86.7 kg (191 lb 1.6 oz)[place] Body Weight: 71kgResting Metabolic Rate: 1554Estimated kilocalorie needs: 0459-9120 kilocalories determined by 25-30kcal/kgEstimated protein needs: 78-107 grams determined by 1.1-1.5 g/kg IdealweightEstimated fluid needs: 1800 milliliters based on 1 mL per kcalNUTRITION FOCUSED PHYSICAL EXAM:Subcutaneous Fat LossOrbital Unable to determine at this timeTriceps No fat lossMid-axillary at the iliac crest Unable to determine at this timeMuscle Loss Locations:Temporalis MildPectoralis Unable to determine at this timeDeltoids No muscle lossInterosseous No muscle lossLatissimus dorsi, trapezius Unable to determine at this timeQuadriceps No muscle lossGastrocnemius Unable to determine at this timePotential micronutrient deficiency revealed in: Teeth - missingEdema: NoAscites: No-abdomen is distendedAssessment of Functional Status: Unable to determine at this timeTemperature Max in 24 hours: Temp (24hrs), Av.2 ?C (97.1 ?F), Min:36?C (96.8 ?F), Max:36.3 ?C (97.3 ?F) BP 96/58 Pulse 108 Temp 36.2 ?C (97.2 ?F) (Axillary) Resp 23 Ht 175.3 cm (5' 9.02") Wt 80.9 kg (178 lb 5.6 oz) SpO2 96% BMI26.33 kg/m?Recent Labs 09/12/1813GLUC 90 92BUN 20* 34*CREAT 0.67 0.84NA 135* 131*K 4.1 3.3*CHLOR 106 93*CO2 27 30ALB -- 3.2*HB 9.1* 9.9*HCT 28.4* 30.0*WBC 7.97 9.36*MG -- 1.8Potential Signs of Inflammation: leukocytosis-on admission,hypoalbuminemia, tachycardia and gastrinoma tumor-surgery next week?Intake/Output 09/11/17 0700 - 09/12/17 0659 09/12/17 0700 - 09/13/17 0659 700 - 09/14/17 0659 Intake (ml) 0 1330 357 Output (ml) 0 450 840 Net (ml) 0 880 -483Pressure Injury 09/12/17 2342 Coccyx (Active)Stage Injury 1 09/13/2017 7:36 AMMedical Device Related Pressure Injury No 09/13/2017 7:36 AMDressing Status Clean, Dry AND Intact 09/13/2017 7:36 AMFrequency of Dressing Change Every 3 Days 09/13/2017 7:36 AMDressing Change Due 09/15/17 09/13/2017 7:36 AMDressing/Treatment Type Foam-Adhesive 09/13/2017 7:36 AMDrainage Description None 09/13/2017 7:36 AMDrainage Amount None 09/13/2017 7:36 AMOdor No 09/13/2017 7:36 AMWound Surface Color [place] 09/13/2017 7:36 AMSurrounding Skin Intact 09/12/2017 10:53 PMNumber of days: 0MNT Billing Type: Initial Assess/15 min 3 unitsSIGNATURE: Monty Glass RD, LD PATIENT NAME: Cristina JeffreyDATE: September 13, 2017 : 11:47 AM PAGER: [phone] Normal [facility] PROCEDUREon 09-13-2017 Protein mass conc HNO ID: [id number] thor: Jayne (Rn) KELLY Traylorervice: PICC TeamAuthor Type: Registered NurseType: ProceduresFiled: 02/01/2018 12:00 PMNote Text:PICC NURSE INSERTION NOTEDATE OF PROCEDURE: September 13, 2017TIME OF PROCEDURE: 1500ORDERING PHYSICIAN: Dr. MirelesINFORMSUJATHA CONSENT: Obtained per hospital policy.INDICATION FOR LINE PLACEMENT: TPNCONDITION OF LINE PLACEMENT: SterilePRIMARY PROCEDURALIST: SIA LeungSISTANT: Estefani Alex RNPRE-PROCEDURE REVIEWALLERGIESNo Known AllergiesKnown History of Venous Thrombosis: NoKnown History of Permanent Pacemaker or Automated Implanted CardiacDevice: NoPrevious Breast Surgery of Lymph Node Dissection: NoHistory of Renal Disease with Arterio-Venous Fistula in Place or Planned:NoUltrasound Assessment Complete: YesPROCEDURE NARRATIVESAFE PRACTICEHand Hygiene per Hospital Policy: YesSkin Preparation Unit Dose Applicator Used: Chloraprep (CHG + alcohol),allowed to dry.Procedure Surface Cleansed with Antimicrobial Wipes: YesBarriers Used by Proceduralist and all Assisting Personnel: YesUNIVERSAL PROTOCOL / SAFETY CHECKLISTProcedure to be performed: PICC InsertionSign in Communication: CompletedTime Out: Team Confirms the Correct Patient, Correct Procedure, CorrectSite and Site Marking, Correct Position (if applicable), Prep and Dry Time(if applicable). Time: 1500Affirmation of Time Out: N/ASign Out Discussion: Completed, Reported off to Jeet SEWELL that CXR orderedfor tip confirmation and picc not ok to use.Jayne Traylor RNCATHETER PLACEMENTBrand: Arrow/Chloragard Lot: [id number] of Lumens: 2Type of PICC: ChloragardLumen Size: 5.5 FrenchPLACEMENT TECHNIQUELidocaine: Yes. Strength: 1% Volume 0.1 mlModified Seldinger Technique Used to Place Line via the Right BasilicUltrasound Guidance: YesNumber of Attempts at Insertion: 1Internal Length: 44 cm External Length: 0 cm Trim Length: 44 cmMid-Arm Circumference Above Insertion Site: 29 centimetersPost Insertion Pain Level Related to Procedure: 0Action Taken to Address Pain: None neededVerified Placement: Blood return, Ultrasound and Chest X-ray ordered andpendingLine was Flushed with 20 cc normal salineLine Secured with: Securement deviceSterile Dressing Applied and Dated: YesSterile Caps on all Ports Prior to Leaving Procedure Area: YesSPECIMENS: NoneCOMPLICATIONS: NonePatient Education Materials: Placed in chart [facility] Central Line Insertion Checklist utilizedduring this procedureQUESTIONS or PROBLEMS: Call [phone]: Jayne Traylor RN PATIENT NAME: Cristina JeffreyDATE: September 13, 2017 : 3:47 PM PAGER/CONTACT PHONE: [facility] PROGRESSon 09-13-2017 Protein mass conc HNO ID: [id number] thor: Neema Lagunaservice: ElectrophysiologyAuthor Type: PhysicianType: Progress NotesFiled: 09/13/2017 4:01 PMNote Text:72-year-old male with history of paroxysmal atrial fibrillation, notanticoagulated because of recurrent GI bleed, admitted with suspected GIbleed, in atrial fibrillation with RVR. Currently on rate control strategywith intravenous diltiazem, receiving digoxin load as well. Agree withabove, full consult. [facility] Protein mass conc HNO ID: [id number] thor: Jorje Alvarado (Adelina) PatelService: Critical CareAuthor Type: ResidentType: Progress NotesFiled: 09/13/2017 11:56 AMNote Text: At testation signed by Noe Quick at 09/13/2017 12:43 PM (Updated)[facility] STAFF PHYSICIAN NOTE OF PERSONAL INVOLVEMENT IN CAREI have reviewed the progress note obtained and documented by the resident and Ipersonally participated in the rivera components. I have discussed the case andmanagement of the patient's care. The following comments revise or confirmrelevant rivera components of the note.Interval history:Patient is resting comfortably in bed without any current complaints.He has a NG in place to LIWS, but it does not appear to be decompressing hisstomach. Dr. Foster is evaluating him for this.Exam:Irregularly irregular, tachycardicClear to auscultation without wheezing bilaterally anteriorly.Minimal bowel sounds, soft, nontender, significantly distended.No pedal edema bilaterally.Poor turgor, but dry, intact skin.Data:Reviewed as detailed below.IMPRESSION:ACTIVE PROBLEM LISTShock (Hcc)Copd (Chronic Obstructive Pulmonary Disease) (Hcc)HypertensionHyperlipidem iaGI BleedingAcute Respiratory Failure With Hypoxia and Hypercapnia (Hcc)Acute Blood Loss AnemiaHemorrhagic Shock (Hcc)HypophosphatemiaAtrial Fibrillation With Rapid Ventricular Response (Hcc)Severe Protein-Calorie Malnutrition (Hcc)Atrial Fibrillation With Rvr (Hcc)Pancreatic tumorPLAN:Currently rate controlled on diltiazem drip at 15 mg/hour after two boluses of20 mg diltiazem (40 mg total) which finally responded only after metoprolol 5mg IVP.Will consult Dr. Yung () for for further evaluation and treatment of thepatient's atrial fibrillation which will be more challenging as enteralmedications will not be an option for some time.Continue NG tube to LIWS.Dr. Foster (General Surgery) is planning for resection of his pancreatic tumor.Place dual lumen PICC.Start TPN tomorrow.Continue supportive care.Continue ICU monitoring.This patient has a high probability of sudden, clinically significantdeterioration, which requires the highest level of physician preparedness tointervene urgently. I managed/supervised life or organ supportinginterventions that required frequent physician assessment. I devoted my fullattention to the direct care of this patient for the amount of time indicatedbelow. Time I spent with family or surrogate(s) is included only if thepatient was incapable of providing the necessary information or participatingin medical decision making. Time devoted to teaching and to any procedures Ibilled separately is not included.Patient/Family Updated: Patient, Cristina Jeffrey, was updated regarding thegoals of care, medical plan for the day, retail sales vitamin consultant recommendations, medicaldisposition and current medical condition/prognosis as and if clinicallyindicated. All questions and concerns were answered and addressed at thisjuncture.They were notified on September 13, 2017 at 08:20. The duration of the conversationwas 10-15 minutes.PROGNOSIS: GuardedCode status: Full Code.Discussed with Registered Nurse, Pharmacist and Residents while performingmultidisciplinary rounds.Critical Care Documentation:The patient has the following organ/system impairment(s):Atrial fibrillation with rapid ventricular responseTime spent providing critical care services: 40 minutes.SIGNATURE: Noe Quick [facility] RESPIRATORY INSTITUTEPAGER:[id number] of SERVICE: September 13, 2017TIME of SERVICE: 12:21 PM Medic al Intensive Care Progress NoteMay 2017Patient Name: Cristina Jeffrey Patient Location: [id number]/[place] [id number]* Date: 09/12/2017 Length of Stay: 1Primary Service: Medical Intensive CareCase background:72 year old white male with a sig PMH of A fib (not anti-coag), CHF, COPD,previous GI bleed presents with Afib with RVR found at pre-surg forendoscopy for evaluation of gastric ulcers. HR was in 170s. The patientreported worsening heartburn, and decreased appetite as a result of this.He denied SOB,CP, palpitations. He was treated with IV esmolol while atendoscopy, and with diltiazem drip in the ED. The physician did notproceed with the endoscopy due to A fib with RVR. Patient continued toreports abd bloating and distention but no pain.The patient was transferred to ICU for management of A Fib w/ RVR andgastric outlet obstruction possibly due to a pancreatic mass.Diltiazem drip was stopped due to hypotension. NG tube is in place.Suction does not show upper GI bleed. The patient is on 2L Oxygen.Interval History for 09/13/17:No adverse events overnight. The patient seen and examined in the AM. Hecontinues state that he is hungry. He reports that his SOB has improved.He no longer has heartburn symptoms. Patient denies any fevers, chills,chest pain, nausea, vomiting,diarrhea, abdominal pain, dysuria, hematuria, lightheadedness, limbswelling.Current Outpatient Prescriptions on File Prior to Encounter:ergocalciferol, vitamin D2, (VITAMIN D) 50,000 unit capsule Take 50,000Units by mouth once each week.potassium chloride 20 mEq/kg/dose once daily.carvedilol (COREG) 12.5 mg tabletlisinopril (ZESTRIL, PRINIVIL) 20 mg tabletpredniSONE (DELTASONE) 10 mg tabletmetoprolol tartrate, short acting, (LOPRESSOR) 50 mg tablet Take 1 tabletby mouth every 8 hours.diltiazem CD (CARDIZEM CD, CARTIA XT) 240 mg 24 hr capsule Take 1 capsuleby mouth once daily.pantoprazole DR (PROTONIX) 40 mg tablet Take 1 tablet by mouth twicedaily.Bismuth Subsalicylate (PEPTO-BISMOL) 262 mg tab Take 1 tablet by mouthtwice daily for 14 days.Vit A,C,K-Nglp-Kqkuvf (PRESERVISION AREDS) 14,320-226-200 jryr-cm-nnlntut Take 1 capsule by mouth twice daily.albuterol (PROVENTIL) 2.5 mg /3 mL (0.083 %) nebulizer solution Use 2.5 mgvia nebulizer every 4 hours as needed for Wheezing/Shortness of Breath.pravastatin (PRAVACHOL) 40 mg tablet Take 40 mg by mouth once daily.budesonide-formoterol (SYMBICORT) 160-4.5 mcg/actuation inhaler Inhale 1Puff as instructed twice daily.guaiFENesin (MUCINEX) 600 mg 12 hr tablet Take 1,200 mg by mouth twicedaily.furosemide (LASIX) 40 mg tablet Take 40 mg by mouth twice daily.ObjectivePresent Condition: 09/13/18065 BP: 111/72 101/56 101/56 97/67Pulse: 107 107 109Resp: 20Temp: 36.2 ?C (97.2 ?F)TempSrc: AxillarySpO2: 96% 95% 95% 95%Weight:Height:PHYSICAL EXAMINATION: Performed with findings detailed below on 09/13/17Constitutional: He is oriented to person, place, and time. He appearswell-developed and well-nourished. No distress.HENT:Head: Normocephalic and atraumatic.Mouth/Throat: Oropharynx is clear and moist.Eyes: EOM are normal. Pupils are equal, round, and reactive to light.Neck: Normal range of motion. No tracheal deviation present.Cardiovascular: Normal heart sounds and intact distal pulses. Anirregularly irregular rhythm present. Tachycardia present.Pulmonary/Chest: Effort normal and breath sounds normal. Tachypnea noted.No respiratory distress.Abdominal: Firm. Distention noted. Bowel sounds are normal. There is notenderness with palpation. There is no rebound or guarding noted.Musculoskeletal: Normal range of motion. He exhibits no edema ordeformity.Neurological: He is alert and oriented to person, place, and time. He hasnormal reflexes. No cranial nerve deficit.Skin: Skin is warm and dry.Psychiatric: He has a normal mood and affect. His behavior is normal.Judgment normal.Nursing note and vitals reviewed.?Current Facility-Administered Medications:ondansetron (PF) 4 mg injection (ZOFRAN) 4 mg INTRAVENOUS q 6 H PRNAlessandra (Res) [place] 4 mg at 09/13/17 0013iv contrast (radiology procedure) INTRAVENOUS DIRECTED PRN Raul(Res) Azaelzowskiiv contrast (radiology procedure) INTRAVENOUS DIRECTED PRN Raul(Res) Christianpotassium chloride 80-120 mEq oral liquid 80-120 mEq ORAL/FEEDING TUBE PRNAlessandra (Res) Bouffordpotassium chloride iv piggyback 20 mEq in sterile water 100 mL 20 mEqINTRAVENOUS PRN Annel (Res) Bouffordmagnesium sulfate in water 2 g in sterile water 50 ml 2 g INTRAVENOUS PRNAlessandra (Res) [place] Last Rate: 25 mL/hr at 09/12/17 2320 2 g at09/12/17 2320sodium phosphate 45 mmol in NaCl 0.9% 250 mL 45 mmol INTRAVENOUS PRNAlessandra (Res) Bouffordcalcium gluconate 4 g in NaCl 0.9% 250 mL 4 g INTRAVENOUS PRN Annel(Res) Bouffordenoxaparin 40 mg injection (LOVENOX) 40 mg SUBCUTANEOUS DAILY Annel(Res) Boufforddigoxin 500 mcg injection (LANOXIN) 500 mcg INTRAVENOUS ONCE Annel(Res) Bouffordmagnesium sulfate in sterile water 4 g iv piggyback 4 g INTRAVENOUS ONCEAlessandra (Res) Bouffordpantoprazole 40 mg injection (PROTONIX) 40 mg INTRAVENOUS DAILY (6 AM)Annel (Res) [place] 40 mg at 09/13/17 0554IMAGING:Chest x-ray = no acute or active intrathoracic abnormality seenCT abd/pelvis without IV contrast =ABDOMINAL FINDINGS:There is a somewhat ill-defined 7 mm subpleural nodule posterior leftlower lobeon image 14 of series 2. ?Multiple additional tiny calcified andnoncalcifiednodules are seen at each lung base.PELVIC?FINDINGS:Moderate distention of the urinary bladder. ?Prostate gland is enlargedandimpresses upon the bladder floor. ?No lymphadenopathy or free fluid ispresentwithin the pelvis. ?There is no acute bony abnormality.?IMPRESSION:1. ?There are findings of gastric outlet obstruction with a severelydistended and?fluid-filled stomach. ?The duodenum is collapsed with a suggestion ofmild wallthickening in addition to irregular infiltration of the surrounding fatwith a few?mildly enlarged adjacent nodes. ?While this could represent aninflammatory orneoplastic process of the duodenum, all findings are thought to mostlikely besecondary to a pancreatic head mass worrisome for neoplasm.2. ?Cholelithiasis.3. ?Probable hepatic and right renal cysts, although this should beconfirmed byultrasound.Notable morning labs:Labs:CBC:Recent Labs [id number] WBC 7.97 9.36*HB 9.1* 9.9*HCT 28.4* 30.0*PLT 212 258MCV 90.4 86.7COAG:Recent Labs INR 1.13BMP:Recent Labs 09/12/1813GLUC 90 92NA 135* 131*K 4.1 3.3*CHLOR 106 93*CO2 27 30ANION 6* 11BUN 20* 34*CREAT 0.67 0.84CHEM:Recent Labs 09/12/1813LB -- 3.2*TPROT -- 6.2*CA 7.8* 9.3MG -- 1.8HEPATIC:Recent Labs 09/12/1813LKPHOS -- 51ALT -- 21AST -- 16TBILI -- 0.4LIPASE 639* --CARDIAC: Troponins < 0.015CEA = 1.7Intake/Output Summary (Last 24 hours) at 09/13/17 0818Last data filed at 09/13/17 0736 Gross per 24 hourIntake 1360 mlOutput 660 mlNet 700 mlSerum creatinine: 0.67 mg/dL 09/13/17 0315Estimated creatinine clearance: 99.7 mL/minAssessment/Plan1) A fib with RVRDiltiazem bolus and infusions restarted.Continue to monitor BP to assess for hypotension.Will give 1 dose of lopressor 5 mgNot on anticoagulation due to GI bleedConsult EP.2) Pancreatic mass and GOO:Surgery followingThey concluded that the patient's 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 Surgery planned for next week.Currently NPOFollow up CT chest and abdomen results3) Recent upper GI bleed s/p angio-embolization of gastroduodenal andgastroepiploic arteries in June 20174) Hypotension: monitor blood pressure5) Chronic normocytic anemiaJorje Avalos MD09/13/1810:50 AM Normal [facility] Protein mass conc HNO ID: [id number] thor: Venus Vegae: General SurgeryAuthor Type: PhysicianType: Progress NotesFiled: 09/13/2017 2:00 PMNote Text:Elective Surgery Progress NoteSERVICE DATE: 09/13/2017SUBJECTIVE:No pain or N since NG placed. Not much output from NG though. + flatus.DIET NPOOBJECTIVE:Temp (24hrs), Av.2 ?C (97.1 ?F), Min:36 ?C (96.8 ?F), Max:36.3 ?C(97.3 ?F)BP 103/72 Pulse 94 Temp 36.2 ?C (97.2 ?F) Resp 19 Ht 175.3 cm(5' 9.02") Wt 80.9 kg (178 lb 5.6 oz) SpO2 99% BMI 26.33 kg/m?O2 Therapy: Nasal CannulaDate 09/12/17 0700 - 09/13/17 0659 09/13/17 0700 - 09/14/17 0659Shift 2931-1005 0373-6405 0251-5509 24 Hour Total 9940-1914 5984-36283019-2730 24 Hour TotalINTAKE PO 0 0 PO 0 0 IV 1300 1300 IVPB 1000 1000 Potassium IVPB 200 200 Magnesium IVPB 100 100 Irrigants 30 30 Irrigant/Flush Amount In (GI Feed/Drain 09/12/17 0700 NasogastricRight) 30 30 Shift Total 1330 1330OUTPUT Urine 450 450 Void (ml) 450 450 Tubes 0 0 0 Output (GI Feed/Drain 09/12/17 0700 Nasogastric Right) 0 0 0 # of BMs Number of BMs 0 x 0 x Shift Total 0 450 450Weight (kg) 86.2 80.9 80.9 80.9 80.9 80.9 80.9 80.9Current Facility-Administered Medications:ondansetron (PF) 4 mg injection (ZOFRAN) 4 mg INTRAVENOUS q 6 H PRNiv contrast (radiology procedure) INTRAVENOUS DIRECTED PRNiv contrast (radiology procedure) INTRAVENOUS DIRECTED PRNpotassium chloride 80-120 mEq oral liquid 80-120 mEq ORAL/FEEDING TUBE PRNpotassium chloride iv piggyback 20 mEq in sterile water 100 mL 20 mEqINTRAVENOUS PRNmagnesium sulfate in water 2 g in sterile water 50 ml 2 g INTRAVENOUS PRNsodium phosphate 45 mmol in NaCl 0.9% 250 mL 45 mmol INTRAVENOUS PRNcalcium gluconate 4 g in NaCl 0.9% 250 mL 4 g INTRAVENOUS PRNenoxaparin 40 mg injection (LOVENOX) 40 mg SUBCUTANEOUS DAILYdigoxin 500 mcg injection (LANOXIN) 500 mcg INTRAVENOUS ONCEmagnesium sulfate in sterile water 4 g iv piggyback 4 g INTRAVENOUS ONCEpantoprazole 40 mg injection (PROTONIX) 40 mg INTRAVENOUS DAILY (6 AM)Recent Labs 09/12/1813NA 135* 131*K 4.1 3.3*CHLOR 106 93*CO2 27 30BUN 20* 34*CREAT 0.67 0.84GLUC 90 92ANION 6* 11CA 7.8* 9.3MG -- 1.8ALB -- 3.2*AST -- 16ALT -- 21ALKPHOS -- 51TBILI -- 0.4WBC 7.97 9.36*HB 9.1* 9.9*HCT 28.4* 30.0*PLT 212 258INR -- 1.13Exam:GENERAL: No distress, AlertNEURO: [id number]: normocephalic, atraumaticLUNGS: Unlabored breathingCARDIAC: Regular rate and rhythm as aboveABDOMEN: soft, distended, no ttpEXTREMITIES: JERONIMO, No deformities, No edemaSKIN: Skin color, texture, turgor normal, No rashes or lesionsASSESSMENT AND PLAN:Active Hospital Problems Diagnosis Date Noted- Atrial fibrillation with RVR (HCC) 09/12/201772 YOM with likely pancreatic head mass and GOO. Sent to ED fromendoscopy for A-fib/RVR. Concerning for possible gastrinoma vs adenoCA ofpancreas. H/o antral ulcers AND hpylori?- A-fib mgnt per medicine- protonix- NGT to LIWS- CEA 1.7- f/u gastrin AND CA19-9- P- CT pancreas protocol this AM AND CT chest for staging.- continue PPI.- surgical planning pending imaging/lab results.?Vicki Breaux, DOGeneral Surgery PGY-4Ma2017 6:09 AMPager: [phone] also consult GI for an EGD to evaluate if this is from ulcer or fromtumor in pancreas.Venus Foster MD2:00 PM09/13/17 [facility] PT EDon 09-13-2017 PT ED HNO ID: [id number] thor: Jayne (Rn) Layton, RNService: PICC TeamAuthor Type: Registered NurseType: Patient EducationFiled: 09/13/2017 3:47 PMNote Text:PATIENT EDUCATION TOPIC: PROCEDURE / SURGERY: Procedure/Surgery: PICCInsertionPATIENT NAME: Cristina JeffreyMRN: [id number] LOCATION: [place] [address]/[place] [address]*READ INESS TO LEARNCOGNITIVE ABILITY: Alert and orientedMOTIVATION TO LEARN: InterestedFAMILY SUPPORT: Unable to assess - Family not presentINSTRUCTION PROVIDED TO: PatientPATIENT LEARNS BEST BY: Written Instruction - Hand-outsVerbal InstructionFACTORS AFFECTING LEARNING: NonePHYSICAL LIMITATIONS AFFECTING LEARNING: NoneLEARNING RESPONSEDIAGNOSIS: ADULT: TPNPATIENT/FAMILY RESPONSE: Verbalizes understanding of: [id number]-Wf rrect actions to take to reduce post procedurecomplicationsPRE-PRO CEDURE INSTRUCTIONS-Correct action to take to follow pre-procedureinstructionsMETH OD OF INSTRUCTION: Verbal instructionFOLLOW-UP PLAN: Complete - No need for follow-upINSTRUCTIONAL AIDS USED: Picc Line BookSUPPLEMENTAL MATERIAL PROVIDED TO PATIENT: Catheter-Associatedbloodstrea m infection sheetREFERRAL (RECOMMENDATION): NoneElectronically Signed By: Jayne Traylor RN [facility] ANES Paras 09-12-2017 ANES POST HNO ID: [id number] Author: Aubrey Bueno Service: Anesthesiology Author Type: Physician Type: Anesthesia PostOp Filed: 09/12/2017 3:39 PM Note Text: Pt transported to ED, fully monitored, by [facility] sophia [facility] ANES PREOPon 09-12-2017 ANES PREOP HNO ID: [id number] thor: Aubrey TsuiService: AnesthesiologyAuthor Type: PhysicianType: Anesthesia PreOpFiled: 09/12/2017 3:37 PMNote Text:CANCELLED PROCEDURE PROGRESS NOTESERVICE DATE: 09/12/2017SERVICE TIME: 1200Case cancelled due to pt having RVR at HR>150 while in atrialfibrillation.Pt has a planned appointment 11/06/[address] Yung of EP service.Plan to admit pt via ED to be evaluated by EP service.The plan wasdiscussed with pt AND his sister. They agreed.Called ED attending Dr. Orta AND discussed pt's case.SIGNATURE: Aubrey Bueno MD PATIENT NAME: Cristina JeffreyDATE: September 12, 2017 : 3:32 PM PAGER: Normal [facility] CEAon 09-12-2017 CEA 1.7 ng/mL Normal 0.0-3.[address] [facility] Comment on above: Result Comment: The reference range shown is for adult non-smokers.The range for smokers is 0-5.0Testing performed by Chemiluminescence LOCI. Performed By: #### P T ####[place] [address] CHEST 1 VIEWon 09-12-2017 CHEST 1 VIEW Performed at [facility] APPROVED BY: Justen Hennessy MD EXAMINATION: CHEST RADIOGRAPH (PORTABLE SINGLE VIEW AP) Exam Date/Time: 09/12/2017 8:01 PMIndication: Nasogastric tube placement; cough Comparison: Chest x-ray done earlier today RESULT: Lines, tubes, and devices: The nasogastric tube terminates within the distal esophagus. This should be advanced. Lungs and pleura: No focal consolidation, mass or pleural effusion is seen. Cardiomediastinal silhouette: Normal in appearance. Bony thorax is appropriate for the patient's age. No pneumothorax is seen. IMPRESSION: NASOGASTRIC TUBE TERMINATES WITHIN THE DISTAL ESOPHAGUS. THIS SHOULD BE ADVANCED AT LEAST 10 CM. LUNGS REMAIN CLEAR. Normal [facility] CHEST 1 VIEW Performed at [facility] APPROVED BY: Justen Hennessy MD EXAMINATION: CHEST RADIOGRAPH (PORTABLE SINGLE VIEW AP) Exam Date/Time: 09/12/2017 2:26 PMIndication: Shortness of breath and palpitations Comparison: Chest x-ray 06/28/2017 RESULT: Lines, tubes, and devices: None. Lungs and pleura: No focal consolidation, mass or pleural effusion is seen. Cardiomediastinal silhouette: Normal in appearance. Bony thorax is appropriate for the patient's age. No pneumothorax is seen. IMPRESSION: No acute or active intrathoracic abnormality is seen. Normal [facility] CONSULTon 09-12-2017 CONSULT HNO ID: [id number] thor: Raul (Res) Constancee: General SurgeryAuthor Type: ResidentType: ConsultsFiled: 09/12/2017 7:33 PMNote Text: At testation signed by Venus Foster at 09/13/2017 1:26 PMAttending NoteI personally saw and examined the patient. I reviewed the resident's note. 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 Will await CT scan for staging toassess if candidate for resection. Cont NG tube for now. Start TPNSignature: Venus Foster, MDDate: 09/13/2017Time: 1:25 PM CONSU LT: Elective General Surgery SERVICESERVICE DATE: 09/12/2017SERVICE TIME: 4:57 PMREASON FOR CONSULT: GOO, pancreatic head mass.REQUESTING PHYSICIAN: EDPRIMARY CARE PHYSICIAN: Klaudia Perez ChiAntonina Jeffrey is a 72 year old male who presented to the ED after being sentfrom endoscopy. He was scheduled for EGD and the procedure was notperformed because patient went into a-fib with RVR. He is not onanticoagulation. He was recently admitted for UGI bleed that requiredbranches of the GDA and gastroepiploic artery embolized on 06/23/2017. Hehad 2 EGDs that admission with clips/epi administration. He has recurrentgastric ulcers for the majority of his life according to patient. He hashad around 5-8 lb weight loss over the past few months. He has low gradeintermittent epigastric pain. He has been vomiting for the past day. Nofever/chill, SOB, dizziness. He is having bowel function and has beenpassing gas.FUNCTIONAL STATUS: IndependentPAST MEDICAL HISTORYDiagnosis Date- Afib (HCC)- CHF (congestive heart failure) (HCC)- COPD (chronic obstructive pulmonary disease) (HCC)PAST SURGICAL HISTORYProcedure Laterality Date- EGD 06/21/2017 Multiple antral ulcers with 1 large ulcer with a visible vessel at itsbase as the source of bleeding. A large ulcer at the pre-pyloric region- EGD 06/23/2017 NG tube induced mucosal tear at GE junction, without bleeding. Multipleulcers at distal antrum and pyloric channel with significant deformity.Previously Endoclipped and epinephrine injected ulcer is not bleeding andvisible vessel has resolved. Large pyloric channel ulcer with deformityand stenosis with intermittent oozing of blood diffusely without anyvisible vessel. Normal duodenum- TUMOR REMOVAL (SPECIFY LOCATION) HX breast, childhoodNo family history on file.Social HistorySubstance Use Topics- Smoking status: Never Smoker- Smokeless tobacco: Never Used- Alcohol use No Comment: quit 6 months ago(Not in a hospital admission)Current hospital medications:dilTIAZem 100 mg in D5W 100 mL ADD-Arvilla (CARDIZEM) 5-15 mg/hrINTRAVENOUS CONTINUOUSAllergies As of Date: 09/12/2017(No Known Allergies)Fully Assessed 09/12/2017COMPLETE REVIEW OF SYSTEMS:10 pt ROS performed and negative except as in HPI.ObjectivePHYSICAL EXAM:Physical Exam Performed:Gen - laying in bed, NAD, [id number] - EOMI, mucus membranes moist, PEERLCV - HR and BP WNL on monitors.Resp - respirations unlabored.Abd - soft, upper abdominal distension. Minimally tender in epigastricarea. No rebound or guarding.EXT - JERONIMO, no edema.BP 108/62 Pulse 146 Temp (Src) 97.3 (Oral) Resp 20 Ht 5' 9"(1.75m) Wt 190 lb (86.2kg) SpO2 96% BMI 28.05 kg/(m2).DATA:Diagnostic tests reviewed for today's visit:CBC, Coags, BMP, Mg, PhosRecent Labs WBC 9.36*HB 9.9*HCT 30.0*PLT 258INR 1.13NA 131*K 3.3*CHLOR 93*CO2 30BUN 34*CREAT 0.84GLUC 92CA 9.3MG 1.8Liver Function, Amylase, AND LipaseRecent Labs TPROT 6.2*ALB 3.2*ALT 21AST 16ALKPHOS 51TBILI 0.4Cardiac EnzymesABGsImaging:CT abd/pelvis, non contrast:IMPRESSION:1. ?There are findings of gastric outlet obstruction with a severelydistended and?fluid-filled stomach. ?The duodenum is collapsed with a suggestion ofmild wallthickening in addition to irregular infiltration of the surrounding fatwith a few?mildly enlarged adjacent nodes. ?While this could represent aninflammatory orneoplastic process of the duodenum, all findings are thought to mostlikely besecondary to a pancreatic head mass worrisome for neoplasm.2. ?Cholelithiasis.3. ?Probable hepatic and right renal cysts, although this should beconfirmed byultrasound.Impression/Recom mendationsActive Problems: * No active hospital problems. *Resolved Problems: * No resolved hospital problems. 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 Sent to ED fromendoscopy for A-fib/RVR. Concerning for possible gastrinoma vs adenoCA ofpancreas.- medicine to admit for A-fib management.- protonix dose given in ED.- NGT placed in ED.- will collect gastrin, CA19-9, CEA level.- CT pancreas protocol in the AM. CT chest in AM for staging.- continue PPI.- surgical planning pending imaging/lab results.Case discussed with Dr. Foster.SIGNATURE: Raul Baxter MD PATIENT NAME: Cristina JeffreyDATE: September 12, 2017 : 4:57 PM PAGER: [phone] [facility] [address] ABDOMEN AND PELVIS W/O CO NTRASTon 09-12-2017 CT ABDOMEN AND PELVIS W/O CONTRAST Performed at [facility] APPROVED BY: Yann Lazar MD EXAM TITLE:CT ABDOMEN AND PELVIS W/O CONTRAST DATE:09/12/2017 15:31 COMPARISON: None. CLINICAL INDICATION/HISTORY: Abdominal pain and distention TECHNIQUE: CT examination of the abdomen and pelvis performed without oral or IV contrast. Sagittal and coronal reconstruction images were generated. CT Radiation dose: Integrated Dose-length product (DLP) for this visit = 792 mGy*cm.CT Dose Reduction Employed: Automated exposure control (AEC) was used. FINDINGS:ABDOMINAL FINDINGS:There is a somewhat ill-defined 7 mm subpleural nodule posterior left lower lobe on image 14 of series 2. Multiple additional tiny calcified and noncalcified nodules are seen at each lung base. There are findings of gastric outlet obstruction with a severely distended fluid-filled stomach. There is a collapsed duodenum with adjacent mesenteric fat infiltration and a couple of small adjacent nodes. In addition, there is abnormal relative enlargement and central hypodensity of the pancreatic head worrisome for a mass lesion, although there is no significant biliary or pancreatic ductal dilatation. The findings are concerning for a malignant process at the pancreatic head with involvement of the duodenum. Overall, evaluation of the visceral organs is limited by the lack of IV contrast. There are hepatic hypodensities which most likely represent cysts. There are multiple gallstones within the gallbladder along with possible mild wall thickening. No definite stone within the CBD. The spleen appears normal as do the adrenal glands and left kidney. There is a 4 cm right renal hypodense mass containing thin internal calcifications likely representing partially calcified septations. An additional small hypodensities seen at the posterior right upper pole. These should be better evaluated by ultrasound. Normal appendix. Atherosclerotic changes involving the abdominal aorta. No acute bony abnormality. PELVIC FINDINGS:Moderate distention of the urinary bladder. Prostate gland is enlarged and impresses upon the bladder floor. No lymphadenopathy or free fluid is present within the pelvis. There is no acute bony abnormality. IMPRESSION:1. There are findings of gastric outlet obstruction with a severely distended and fluid-filled stomach. The duodenum is collapsed with a suggestion of mild wall thickening in addition to irregular infiltration of the surrounding fat with a few mildly enlarged adjacent nodes. While this could represent an inflammatory or neoplastic process of the duodenum, all findings are thought to most likely be secondary to a pancreatic head mass worrisome for neoplasm.2. Cholelithiasis.3. Probable hepatic and right renal cysts, although this should be confirmed by ultrasound. Findings were conveyed to the covering ED resident physician at the time of interpretation. Normal [facility] Comprehensive Panelon 2017 Alkaline phosphatase (ALP) 51 U/L Normal 46-[address] [facility] Comment on above: Performed By: #### P T ####[facility] [place], [place] [address] Protein 6.2 g/dL Low 6.4-8.[address] [facility] Comment on above: Performed By: #### P T ####[address] [address] Bilirubin Ql (U) 0.4 mg/dL Normal 0.2-1.[address] [facility] Comment on above: Performed By: #### P T ####[address] [address] Alanine aminotransferase (ALT) 21 U/L Normal 12-[address] [facility] Comment on above: Performed By: #### P T ####[address] [address] Aspartate aminotransferase (AST) 16 U/L Normal 9-[address] [facility] Comment on above: Performed By: #### P T ####[address] [address] Creatinine 0.84 mg/dL Normal 0.67-1.[address] [facility] Comment on above: Performed By: #### P T ####[address] [address] Glucose mass conc 92 mg/dL Normal 70-[address] [facility] Comment on above: Performed By: #### P T ####[address] [address] Albumin 3.2 g/dL Low 3.4-5.[address] [facility] Comment on above: Performed By: #### P T ####[address] [address] Urea nitrogen 34 mg/dL High 7-[address] [facility] Comment on above: Performed By: #### P T ####[facility] [place] [address] Anion gap 11 mmol/L Normal 8-[address] [facility] Comment on above: Performed By: #### P T ####[facility] [place] [address] Calcium 9.3 mg/dL Normal 8.5-10.[address] [facility] Comment on above: Performed By: #### P T ####[facility] [place] [address] CO2 30 mmol/L Normal 21-[address] [facility] Comment on above: Performed By: #### P T ####[facility] [place] [address] Chloride 93 mmol/L Low 98-[address] [facility] Comment on above: Performed By: #### P T ####[place] [address] Potassium molar conc 3.3 mmol/L Low 3.5-5.1 [facility] Comment on above: Performed By: #### P T ####[place] [address] Sodium 131 mmol/L Low 136-[address] [facility] Comment on above: Performed By: #### P T ####[place] [address] [facility] Troponin Ion 09-12-2017 Troponin I.cardiac mass conc ng/mL Normal 0.015-0.[address] [facility] Comment on above: Performed By: #### P T ####[place] [address] Troponin I.cardiac mass conc ng/mL Normal 0.015-0.[address] [facility] Comment on above: Performed By: #### P T ####[place] [address] Troponin I.cardiac mass conc ng/mL Normal 0.015-0.[address] [facility] Comment on above: Performed By: #### P T ####[place] [id number] Troponin I.cardiac mass conc ng/mL Normal 0.015-0.[address] [facility] Comment on above: Performed By: #### P T ####[place] [address] ED NOTEon 09-12-2017 ED NOTE HNO ID: [id number] Author: Claudio BarnettRn) GREGORY Doll Service: Emergency Medicine Author Type: Registered Nurse Type: ED Notes Filed: 09/12/2017 8:38 PM Note Text: 2L of Brown nasogastric contents at this time. [facility] ED NOTE HNO ID: [id number] Author: Madeline BarnettRn) GREGORY Aleman Service: Emergency Medicine Author Type: Registered Nurse Type: ED Notes Filed: 09/12/2017 5:12 PM Note Text: Stopped cardizem gtt per request of Dr Poole. [facility] ED NOTE HNO ID: [id number] Author: Madeline BarnettRn) GREGORY Aleman Service: Emergency Medicine Author Type: Registered Nurse Type: ED Notes Filed: 09/12/2017 3:46 PM Note Text: Patient returned to the Emergency Department. [facility] ED NOTE HNO ID: [id number] Author: Madeline Spear) GREGORY Aleman Service: Emergency Medicine Author Type: Registered Nurse Type: ED Notes Filed: 09/12/2017 3:46 PM Note Text: Patient transported to [place] with Nurse. [facility] ED NOTE HNO ID: [id number] Author: Madeline Spear) GREGORY Aleman Service: Emergency Medicine Author Type: Registered Nurse Type: ED Notes Filed: 09/12/2017 1:32 PM Note Text: Pt placed on alarm security or surveillance monitor and continuous pulse ox; alarms set and on. [facility] ED NOTE HNO ID: [id number] thor: Pierce (Medic) Wenceslao GreenSer: (none)Author Type: Floor Helper and TechnicianType: ED NotesFiled: 09/12/2017 1:30 PMNote Text:Bed: ED-10Expected date: 09/12/17Expected time: 12:51 PMMeans of arrival: [place] [facility] Med 04Comments:A Fib RvR Med 4 [facility] ED NOTE HNO ID: [id number] thor: Swathi (Rn) KELLY Tompkinservice: Emergency MedicineAuthor Type: Registered NurseType: ED NotesFiled: 09/12/2017 1:19 PMNote Text:Pt was in endo to get endoscopy done because of chronic heartburn, when hearrived to endo he was in afib RVR rates in the 140-150. Pt also c/o SOB. [facility] ED PROV NOTEon 09-12-2017 Protein mass conc HNO ID: [id number] thor: CANDICE Torreservice: Emergency MedicineAuthor Type: PhysicianType: ED Provider NotesFiled: 09/16/2017 12:43 AMNote Text:ED Provider NotePatient Name: Cristina JeffreyMRN: [id number] DATE: 09/12/17HistoryPatient presents with:NliscepbpfleYRB52 yo M with pmhx of afib not anticoagulated, CHF, COPD, and previous GIbleed requiring ICU admission presenting today from endoscopy suite afterthey noticed his HR to be in the 170s. He was treated with IV esmololwhile at endoscopy. Patient never underwent endoscopy due to afib withRVR. Patient is currently on cardizem and lopressor at home, and statesthat he took them this morning. He currently denies any chest pain, butdoes endorse SOB. Patient also state that over the past week, he hasexperienced worsening of his heart burn symptoms, and he has had littleappetite as a result of this. Patient has epigastric abdominal pain atbaseline, but states it has worsened over the past week. Patient doescurrently endorse nausea, as well as mild abdominal distention compared tobaseline. No hematemesis or melena.PAST MEDICAL HISTORYDiagnosis Date- Afib (HCC)- CHF (congestive heart failure) (HCC)- COPD (chronic obstructive pulmonary disease) (HCC)PAST SURGICAL HISTORYProcedure Laterality Date- EGD 06/21/2017 Multiple antral ulcers with 1 large ulcer with a visible vessel at itsbase as the source of bleeding. A large ulcer at the pre-pyloric region- EGD 06/23/2017 NG tube induced mucosal tear at GE junction, without bleeding. Multipleulcers at distal antrum and pyloric channel with significant deformity.Previously Endoclipped and epinephrine injected ulcer is not bleeding andvisible vessel has resolved. Large pyloric channel ulcer with deformityand stenosis with intermittent oozing of blood diffusely without anyvisible vessel. Normal duodenum- TUMOR REMOVAL (SPECIFY LOCATION) HX breast, childhoodNo family history on file.Social HistorySocial History Main Topics- Smoking status: Never Smoker- Smokeless tobacco: Never Used- Alcohol use No Comment: quit 6 months ago- Drug use: No- Sexual activity: Not on fileALLERGIESNo Known AllergiesReview of SystemsConstitutional: Negative for chills and fever.HENT: Negative for drooling.Eyes: Negative for visual disturbance.Respiratory: Positive for shortness of breath. Negative for apnea andchest tightness.Cardiovascular: Positive for palpitations. Negative for chest pain.Gastrointestinal: Positive for abdominal distention, abdominal pain andnausea. Negative for diarrhea and vomiting.Skin: Negative for pallor.Neurological: Negative for dizziness, numbness and headaches.Hematological: Negative for adenopathy.Psychiatric/Behavi oral: Negative for confusion and suicidal ideas.All other systems reviewed and are negative.Physical ExamBP 95/66 Pulse 133 Temp (Src) 97.3 (Oral) Resp 30 Ht 5' 9" (1.75m) Wt 190 lb (86.2kg) SpO2 95% BMI 28.05 kg/(m2).Physical ExamConstitutional: He is oriented to person, place, and time. He appearswell-developed and well-nourished. No distress.HENT:Head: Normocephalic and atraumatic.Mouth/Throat: Oropharynx is clear and moist.Eyes: EOM are normal. Pupils are equal, round, and reactive to light.Neck: Normal range of motion. No tracheal deviation present.Cardiovascular: Normal heart sounds and intact distal pulses. Anirregularly irregular rhythm present. Tachycardia present.Pulmonary/Chest: Effort normal and breath sounds normal. Tachypnea noted.No respiratory distress.Abdominal: Soft. Bowel sounds are normal. He exhibits no distension. Thereis no tenderness. There is no rebound.Musculoskeletal: Normal range of motion. He exhibits no edema ordeformity.Neurological: He is alert and oriented to person, place, and time. He hasnormal reflexes. No cranial nerve deficit.Skin: Skin is warm and dry.Psychiatric: He has a normal mood and affect. His behavior is normal.Judgment normal.Nursing note and vitals reviewed.Diagnostic TestingResults for orders placed or performed during the hospital encounter of09/12/17XR CHEST 1V FRONTALResult Value Ref Range Business Management Professor EXAMINATION: CHEST RADIOGRAPH (PORTABLE SINGLE VIEW AP)Exam Date/Time: 09/12/2017 2:26 PMIndication: Shortness of breath and palpitationsComparison: Chest x-ray 06/28/2017RESULT:Lines, tubes, and devices: None.Lungs and pleura: No focal consolidation, mass or pleural effusion isseen.Cardiomediastinal silhouette: Normal in appearance.Bony thorax is appropriate for the patient's age.No pneumothorax is seen.IMPRESSION:No acute or active intrathoracic abnormality is seen.CT ABD/PEL WO IVCONResult Value Ref Range Business Management Professor EXAM TITLE:CT ABDOMEN AND PELVIS W/O CONTRASTDATE:09/12/2017 15:31COMPARISON: None.CLINICAL INDICATION/HISTORY: Abdominal pain and distentionTECHNIQUE: CT examination of the abdomen and pelvis performed without oralor IVcontrast. Sagittal and coronal reconstruction images were generated.CT Radiation dose: Integrated Dose-length product (DLP) for this visit =792mGy*cm.CT Dose Reduction Employed: Automated exposure control (AEC) was used.FINDINGS:ABDOMINAL FINDINGS:There is a somewhat ill-defined 7 mm subpleural nodule posterior leftlower lobeon image 14 of series 2. Multiple additional tiny calcified andnoncalcifiednodules are seen at each lung base.There are findings of gastric outlet obstruction with a severely distendedfluid-filled stomach. There is a collapsed duodenum with adjacentmesenteric fatinfiltration and a couple of small adjacent nodes. In addition, there isabnormal relative enlargement and central hyp odensity of the pancreatic headworrisome for a mass lesion, although there is no significant biliary or pancreaticductaldilatation. The findings are concerning for a malignant process at thepancreatic head with involvement of the duodenum.Overall, evaluation of the visceral organs is limited by the lack of IVcontrast. There are hepatic hypodensities which most likely represent cysts. Therearemultiple gallstones within the gallbladder along with possible mild wallthickening. No definite stone within the CBD.The spleen appears normal as do the adrenal glands and left kidney. Thereis a 4cm right renal hypodense mass containing thin internal calcificationslikelyrepresent ing partially calcified septations. An additional smallhypodensitiesseen at the posterior right upper pole. These should be better evaluatedbyultrasound.Normal appendix.Atherosclerotic changes involving the abdominal aorta. No acute bonyabnormality.PELVIC FINDINGS:Moderate distention of the urinary bladder. Prostate gland is enlargedandimpresses upon the bladder floor. No lymphadenopathy or free fluid ispresentwithin the pelvis. There is no acute bony abnormality.IMPRESSION:1. There are findings of gastric outlet obstruction with a severelydistended and fluid-filled stomach. The duodenum is collapsed with a suggestion ofmild wallthickening in addition to irregular infiltration of the surrounding fatwith a few mildly enlarged adjacent nodes. While this could represent aninflammatory orneoplastic process of the duodenum, all findings are thought to mostlikely besecondary to a pancreatic head mass worrisome for neoplasm.2. Cholelithiasis.3. Probable hepatic and right renal cysts, although this should beconfirmed byultrasound.Findings were conveyed to the covering ED resident physician at the timeofinterpretation.CBC + PLT (AK,AV,EU,FV,HL,GERRY,MM,SP)Resu lt Value Ref Range WBC 9.36 (H) 4.23 - 9.07 thou/cmm RBC 3.46 (L) 4.63 - 6.08 mil/cmm HGB 9.9 (L) 13.7 - 17.5 g/dL Hematocrit 30.0 (L) 40.1 - 51.0 % MCV 86.7 83.2 - 95.6 fl MCH 28.6 25.7 - 32.2 pg MCHC 33.0 32.3 - 36.5 % RDW 15.4 (H) 11.6 - 14.4 % RDW-SD 48.8 (H) 36.1 - 45.8 fl Platelet Count 258 141 - 365 thou/cmm MPV 9.9 8.7 - 12.0 flCOMPREHENSIVE METABOLIC PANEL (AK,AV,EU,FV,HL,GERRY,MM,SP)Resu lt Value Ref Range Sodium 131 (L) 136 - 145 mEq/L Potassium 3.3 (L) 3.5 - 5.1 mEq/L Chloride 93 (L) 98 - 107 mEq/L CO2 30 21 - 32 mEq/L Glucose 92 70 - 99 mg/dL BUN 34 (H) 7 - 18 mg/dL Creatinine 0.84 0.67 - 1.17 mg/dL Calcium 9.3 8.5 - 10.1 mg/dL Albumin 3.2 (L) 3.4 - 5.0 g/dL Protein, Total 6.2 (L) 6.4 - 8.2 g/dL AST 16 9 - 37 U/L ALT 21 12 - 78 U/L Alkaline Phosphatase 51 46 - 116 U/L Bilirubin, Total 0.4 0.2 - 1.0 mg/dL Anion Gap 11 8 - 16MAGNESIUM BLOOD (AK,AV,EU,FV,HL,GERRY,MM,SP)Resu lt Value Ref Range Magnesium 1.8 1.6 - 2.6 mg/dLECU TROPONIN I (CO ED)Result Value Ref Range ECU Troponin I <0.015 0.015 - 0.045 ng/mlECU TROPONIN I (CO ED)Result Value Ref Range ECU Troponin I <0.015 0.015 - 0.045 ng/mlPROBNP N-TERMINAL (AK,AV,EU,FV,HL,GERRY,MM,SP)Resu lt Value Ref Range NT Pro BNP 1,728 pg/mlPROTHROMBIN TIME / PT (AK,AV,EU,FV,HL,GERRY,MM,SP)Resu lt Value Ref Range Prothrombin Time 11.7 9.3 - 11.9 sec INR 1.13MDRD GFRResult Value Ref Range eGFR >60 >60mL/min/1.78l1VSLTMB BLOOD (AK,AV,EU,FV,HL,GERRY,MM,SP)Resu lt Value Ref Range Lipase 639 (H) 73 - 393 U/LECU TROPONIN I (CO ED)Result Value Ref Range ECU Troponin I <0.015 0.015 - 0.045 ng/mlProceduresMedical Decision MakingMDMHistory of present illness, view of systems, and physical exam as above.Patient treated with IV fluids, antiemetics and Protonix. He was startedon diltiazem bolus with drip. His workup here included CBC, CMP, lipase,EKG, troponin, coags, magnesium, BNP, chest x-ray, as well as CT abdomenand pelvis. Labs notable for mildly elevated WBC of 9.36. Hyponatremiawith sodium of 131. Hypokalemia with potassium of 3.3. Lipase mildlyelevated at 639. BNP slightly elevated at 1728. Magnesium mildly low at1.8. EKG show A. fib without acute ischemic changes. Qyeikdrup9xdodmrpi. Chest x-ray without acute intrathoracic abnormalities.CT abdomen and pelvis show high-grade gastric outlet obstruction secondaryto pancreatic head mass.Patient was unable to tolerate diltizem due to hypotensive BP despitebeing given 2 L of fluids. Diltizem held.Surgery consulted, and they recommended NG tube insertion, which produced2 L of dark red gastric content in the ED. Surgery did not want to admitpatient as primary secondary to A. fib. CVICU attending was paged, whoalso did not want to accept the patient as primary due to gastric outletobstruction. MICU was consulted, and has accepted the patient foradmission to their service.ED Course / Clinical ImpressionED Course as of Sep 15 2212Others' DocumentationTue September 12, 20171932 ED Attending Continuation of Care NoteMay 2017 7:32 PMCristina Jeffrey was endorsed to me by Dr. Orta.The patient initially presented to the ED for: A fib with RVR.Signout note reviewedDiagnostics were reviewed. Rivera findings: CT a/P showed gastric outletobstruction likely 2/2 pancreatic head mass.New Physical Exam findings: Remains with soft BPs in 80's systolic.Cardizem discontinued, HR stable in 120-130s.Clinical Course: Surgery consulted regarding CT findings. Surgeryrequested NGT. Does not wish to admit pt primarily as no immediate needfor surgery and needs control of Afib. CVICU attending spoke with EDresident, and does not wish to admit primarily due to gastric outletobstruction. MICU consulted, dispo per MICU.Bashir Bazan MD [BK]ED Course User Index[BK] Bashir Bazan [facility] EDMONDlinical Impressions as of September 15trial fibrillation with RVR (HCC)Gastric outlet obstructionPancreatic massPlanThe patient was ADMITTED TO: ICU MICU.Condition at time of disposition: stableSIGNATURE: Holly Ramos (Res) Zulema, OIGrarsynd94/25/18 2224Critical CareI spent a total of 35 minutes of critical care time in the evaluation andmanagement of this patient. This was necessary to treat or preventdeterioration of the following condition(s): Cardiovascular impairment,which the patient had and/or has a high probability of suddenlydeveloping. The patient received Cardizem drip and Consultation byMICU/CCU during the time that critical care was provided.I discussed theplan of care with the Resident and agree with the findings documented.Critical care time excludes separately billed procedures.Fantasma Torres MD09/16/17 0043 [facility] EKG (AK,AV,EU,FV,HL,GERRY,MM,SP )on 09-12-2017 Protein mass conc NAME : CRISTINA JEFFREY PID : [id number] : 1945 Gender : MaleRace : CaucasianORD : [id number] Procedure Date : Sep 12 2017 13:16Edit Date : Sep 20 2017 21:10 Diagnosis:ATRIAL FIBRILLATION WITH RAPID VENTRICULAR RESPONSEST & T WAVE ABNORMALITY, CONSIDER INFEROLATERAL ISCHEMIAABNORMAL ECGWHEN COMPARED WITH ECG OF 30-JUN-2017 10:02,ATRIAL FIBRILLATION HAS REPLACED SINUS RHYTHMVENT. RATE HAS INCREASED BY 76 BPMT WAVE INVERSION MORE EVIDENT IN INFERIOR LEADST WAVE INVERSION NO LONGER EVIDENT IN ANTERIOR LEADSConfirmed by MD Amaya Thomas ([id number]) on 09/20/2017 9:10:49 PM Ventricular Rate : 149 BPMAtrial Rate : 170 BPMQRS Duration : 80 msQ-T Interval : 308 msQTC Calculation(Bezet) : 485 msR [place] : 76 degreesT [place] : 250 degrees Test Reason : Arrhythmia Location : 4 : AKED 4211 Overread By : MD Amaya ThomasEditted By : MD Amaya ThomasReferred By : Libertad MIRELESquired by : Celena Britt [facility] HISTORY PHYSICALon HISTORY PHYSICAL HNO ID: [id number] thor: Annel (Res) BouffordService: Critical CareAuthor Type: ResidentType: HANDPFiled: 09/12/2017 9:30 PMNote Text: At testation signed by Reina Mireles at 09/12/2017 9:44 [facility] STAFF PHYSICIAN NOTE OF PERSONAL INVOLVEMENT IN CAREI have reviewed the history and physical examination obtained and documented bythe resident and I personally participated in the rivera components. I havediscussed the case and management of the patient's care. The following commentsrevise or confirm relevant rivera components of the note.72/M with recent hospital admission for GIB secondary to PUD (pre-pyloric Kaveh),s/p EGD (Multiple ulcers at the antrum and pyloric channel region with markeddeformity and narrowing of the pyloric channel. ?Previously noted visiblevessel haseffectively been sealed with Endoclips and there was no furtherbleeding in?that region. ?Further down in the pyloric channel, there wasdeformity and deep ulcer and oozing from the surface of the mucosa. ?Thedescending duodenumwas normal.). with clipping and epi injection followed byangio-embolization of gastroduodenal and gastroepiploic arteries in June 2017.Patient seen by Dr Dominguez as follow up and presented for repeat endoscpopy today.Was sent to the ER for Afib RVR. CT abdomen was done due to abdominal pain.Large distended stomach with gastric outlet obstruction, flattened duodenum wasseen, mass like lesion at head of pancreas also noted. Evaluated by surgery,NGT placed, large output. Patient feels better. Denies abdominal pain. No chestpain/sob.cardiazem gtt was started but turned off due to hypotension. Received 3L IVF.140s - 160s Afib RVR 93/63Awake, alert, comfortableMMM, peripheries warm, good cap refillabd distended but soft, NTNo c/c/eMoves all ext, aox3CT abdomen: 1. ?There are findings of gastric outlet obstruction with aseverely distended and?fluid-filled stomach. ?The duodenum is collapsed with a suggestion of mildwallthickening in addition to irregular infiltration of the surrounding fat with afew?mildly enlarged adjacent nodes. ?While this could represent an inflammatory orneoplastic process of the duodenum, all findings are thought to most likely besecondary to a pancreatic head mass worrisome for neoplasm.2. ?Cholelithiasis.3. ?Probable hepatic and right renal cysts, although this should be confirmedbyultrasound.CXRNASO GASTRIC TUBE TERMINATES WITHIN THE DISTAL ESOPHAGUS. ?THIS SHOULD BEADVANCEDAT LEAST 10 CM.?LUNGS REMAIN CLEAR.CEA negativeCA 19-9 and gastrin pendingTroponin x 2 negLipase 639Cr 0.84IMPRESSION:?Afib RVR?Hypotension?Gastric outlet obstruction: stricture vs compression by mass?Pancreatic mass?Recent UGIB, s/p angio-embolization of gastroduodenal and gastroepiploicarteries in June 2017?Hyponatermia/hypochlorem ia/hypokalemia?Elevated lipase: pancreatitis vs tumor related?cholelithasis?Anemia: chronicPLAN:?Digoxin?IVF?Candace tor hr/bp?NGT to suction?Evaluation of obstruction/mass Per surgery??MRI abdomen?Consult GI?Replace electrolytes?Anticoagulation if ok with GI?lovenox sqPatient/Family Updated: yesThis patient has a high probability of sudden, clinically significantdeterioration, which requires the highest level of physician preparedness tointervene urgently. I managed/supervised life or organ supportinginterventions that required frequent physician assessment. I devoted my fullattention to the direct care of this patient for the amount of time indicatedbelow. Time I spent with family or surrogate(s) is included only if thepatient was incapable of providing the necessary information or participatingin medical decision making. Time devoted to teaching and to any procedures Ibilled separately is not included.Critical Care Documentation: The patient has the following organ/systemimpairment(s): A fib RVR, hypotension, Gastric outlet obstructionTime spent providing critical care services: 40 minutes.SIGNATURE: MAICO Isabel INSTITUTEPAGER:[id number] of SERVICE: September 12, 2017TIME of SERVICE: 9:44 PM HISTO RY AND PHYSICAL EXAMINATIONSERVICE DATE: 09/12/2017SERVICE TIME: 7:35 [facility] CARE PHYSICIAN: Clifton Del Valle, FJLglnnzmiepYVJ49 yo male with a PMH of Afib previously on anticoagulation, CHF, COPD, GIbleed who presented to endoscopy today for evaluation of gastric ulcersper patient. The patient was noted to be tachycardic in endoscopy andgiven IV Esmolol. The patient was then sent to ED for evaluation. He wasnoted to be in Afib with RVR in ED and given Cardizem bolus and started onCardizem gtt. The patients HR improved to 80 but his BP decreased and theCardizem gtt was discontinued. Patient believes he took his Metoprolol andCardizem at home this morning. The patient denies chest pain but endorsespalpitations. He refers that he was SOB at presentation to the endoscopytoday. He refers that he has been experiencing epigastric pain for yearsand has induced episodes of emesis which relieves the pain. He denieshematemesis. He denies nausea.Of note during his last admission in June the patient was in hemorrhagicshock with acute blood loss anemia and was admitted to ICU. He had 2 EGDsdemonstrating multiple antral ulcers with 1 large ulcer with a visiblevessel and large pre-pyloric ulcer. Repeat EGD demonstrated NG inducedmucosal tear at GE junction without bleeding, multiple ulcers at thedistal antrum and pyloric channel, the prior endoclipped and epinephrineinjected ulcer was not bleeding. The pyloric ulcer with deformity andstenosis and intermittent oozing of blood without visible vessel. Patienthad IR embolization of gastroduodenal and gastroepiploic arteriescompleted after 2nd EGD. Plan was for follow up endoscopy with GI.In the ED he was given 40 mg IV Protonix, 4 mg Zofran, 3L NS bolus,Atrovent, Cardizem 10 mg IV and started on Cardizem gtt.FUNCTIONAL STATUS: IndependentPAST MEDICAL HISTORYDiagnosis Date- Afib (HCC)- CHF (congestive heart failure) (HCC)- COPD (chronic obstructive pulmonary disease) (HCC)PAST SURGICAL HISTORYProcedure Laterality Date- EGD 06/21/2017 Multiple antral ulcers with 1 large ulcer with a visible vessel at itsbase as the source of bleeding. A large ulcer at the pre-pyloric region- EGD 06/23/2017 NG tube induced mucosal tear at GE junction, without bleeding. Multipleulcers at distal antrum and pyloric channel with significant deformity.Previously Endoclipped and epinephrine injected ulcer is not bleeding andvisible vessel has resolved. Large pyloric channel ulcer with deformityand stenosis with intermittent oozing of blood diffusely without anyvisible vessel. Normal duodenum- TUMOR REMOVAL (SPECIFY LOCATION) HX breast, childhoodNo family history on file.Social HistorySubstance Use Topics- Smoking status: Never Smoker- Smokeless tobacco: Never Used- Alcohol use No Comment: quit 6 months ago(Not in a hospital admission)ALLERGIESNo Known AllergiesCOMPLETE REVIEW OF SYSTEMS:Review of SystemsConstitutional: Positive for appetite change and unintentional wt loss .Negative for chills and fever.Respiratory: Positive for shortness of breath. Negative for cough.Cardiovascular: Positive for palpitations. Negative for chest pain and legswelling.Gastrointestinal: Positive for abdominal pain, constipation and vomiting.Negative for abdominal distention, blood in stool, diarrhea and nausea.Genitourinary: Negative for dysuria, frequency and urgency.Skin: Negative for color change.Neurological: Negative for dizziness, syncope and light-headedness.Hematologica l: Does not bruise/bleed easily.ObjectivePHYSICAL EXAM:Physical ExamConstitutional: He is oriented to person, place, and time. He appearswell-developed and well-nourished. No distress.HENT:Head: Normocephalic and atraumatic.Eyes: EOM are normal. Pupils are equal, round, and reactive to light.Neck: Neck supple. No JVD present. No thyromegaly present.Cardiovascular: An irregular rhythm present. Tachycardia present. Examreveals no gallop and no friction rub.No murmur heard.Pulmonary/Chest: Breath sounds normal. No respiratory distress. He has nowheezes. He has no rales.Abdominal: Soft. Bowel sounds are normal. He exhibits no distension. Thereis no tenderness. There is no rebound and no guarding.Musculoskeletal: He exhibits no edema.Neurological: He is alert and oriented to person, place, and time. Nocranial nerve deficit.Skin: Skin is warm and dry. No rash noted. He is not diaphoretic. Noerythema.BP 93/63 Pulse (!) 128 Temp 36.3 ?C (97.3 ?F) (Oral) Resp 22 Ht 175.3 cm (5' 9") Wt 86.2 kg (190 lb) SpO2 98% BMI 28.06 kg/m?Body mass index is 28.06 kg/m?.DATA:Diagnostic tests reviewed for today's visit:Most recent labs and imaging results.CT abdomen/pelvis:1. ?There are findings of gastric outlet obstruction with a severelydistended and fluid-filled stomach.?The duodenum is collapsed with asuggestion of mild wall thickening in addition to irregular infiltrationof the surrounding fat with a few mildly enlarged adjacent nodes. ?Whilethis could represent an inflammatory or neoplastic process of theduodenum, all findings are thought to most likely be secondary to apancreatic head mass worrisome for neoplasm.2. ?Cholelithiasis. There are multiple gallstones within the gallbladderalong with possible mild wall thickening. ?No definite stone within theCBD.3. ?Probable hepatic and right renal cysts, although this should beconfirmed by ultrasound.Echo 06/2017Normal left ventricular size and systolic function. No regional wallmotion abnormalities. LVEF is 55-60% by visual estimation. The inferiorvena cava is normal in size but does not collapse > 50% with inspiration.Right atrial pressure is estimated at 8 mmHg. The right ventricle is notwell visualized. On limited views, it has grossly normal size and mildlyreduced function.Assessment/PlanAtria l fibrillation with RVR: Troponin negative * 2. INR 1.13. Patientpreviously on anticoagulation which was discontinued due to GI bleed inMarch. Will start patient on Digoxin as he did not tolerate Cardizem.Gastric Outlet obstruction: Surgery on board. NG tube placed in ED. Keeppatient NPO. Surgery will contiue to follow.Pancreatic Mass concerning for neoplasm: Patient endorses 10-15 lb weightloss in the past few months.Lipase elevated to 631. Surgery on board.Gastrin, CA19-[address] CT chest ordered for staging.Consider MRI when patient is stable from a cardiac standpoint.Cholelithiasis: There are multiple gallstones within the gallbladder alongwith possible mild wall thickening. No definite stone within the CBD.Patient is not experiencing any RUQ pain. Consider further evaluation withUS and HIDA scan if clinical pictures evolves.Chronic Normocytic Anemia: Dark output from NG. Continue patient onProtonix. Consider GI consult and endoscopy during this admission afterpatient evaluated with further imaging and considered for surgicalintervention.Hypokale kat: Replace potassium with goal >4 and magnesium goal >2.DVT prophylaxis: SCDsSIGNATURE: Annel Moreno MD PATIENT NAME: Cristina JeffreyDATE: September 12, 2017 : 7:35 PM PAGER/CONTACT #: [phone] [facility] HOSPon 09-12-2017 HOSP Patient:Tessie Jeffrey TMRN: Height:5' 9.016"(1.753 m)Weight:173 lb 15.1 oz (78.9 kg)Outpatient Medications as of 09/21/17:metoprolol tartrate, short acting, (LOPRESSOR) 50 mg tabletpotassium chloride 20 mEq TbERergocalciferol, vitamin D2, (VITAMIN D) 50,000 unit capsulediltiazem CD (CARDIZEM CD, CARTIA XT) 240 mg [address] (PROTONIX) 40 mg tabletBismuth Subsalicylate (PEPTO-BISMOL) 262 mg tabVit A,C,P-Uftu-Nrdxuz (PRESERVISION AREDS) 14,320-226-200 qdwa-qt-zyqu capalbuterol (PROVENTIL) 2.5 mg /3 mL (0.083 %) nebulizer solutionpravastatin (PRAVACHOL) 40 mg tabletbudesonide-formoterol (SYMBICORT) 160-4.5 mcg/actuation inhalerfurosemide (LASIX) 40 mg tabletAdmission/Clinic Administered Medications as of 09/21/17:Parenteral Nutrition - AdultParenteral Nutrition - Adultlidocaine 10 mg/mL (1 %) 1-2 mg injection (XYLOCAINE)lactated ringers infusionertapenem 1 g in NaCl 0.9% 100 mL MB+ (INVanz)digoxin 250 mcg injection (LANOXIN)metoprolol 2.5 mg injection (LOPRESSOR)pantoprazole 40 mg injection (PROTONIX)albuterol 2.5 mg /3 mL (0.083 %) 2.5 mg (PROVENTIL)dextran 70-hypromellose 0.1-0.3 % 1 Drop ophthalmic drops (NATURAL BALANCETEARS)phenol 1 Nineveh (CHLORASEPTIC)benzocaine-ment hol 1 Lozenge (CEPACOL)ondansetron (PF) 4 mg injection (ZOFRAN)dilTIAZem 100 mg in D5W 100 mL ADD-Arvilla (CARDIZEM)0.9% NaCl 10 mL0.9% NaCl 20 mLiv contrast (radiology procedure)enoxaparin 40 mg injection (LOVENOX)Problem List:Shock (HCC) [R57.9]COPD (chronic obstructive pulmonary disease) (HCC) [J44.9]Hypertension [I10]Hyperlipidemia [E78.5]GI bleeding [K92.2]Acute respiratory failure with hypoxia and hypercapnia (HCC) [J96.01, J96.02]Acute blood loss anemia [D62]Hemorrhagic shock (HCC) [R57.8]Hypophosphatemia [E83.39]Atrial fibrillation with rapid ventricular response (HCC) [I48.91]Severe protein-calorie malnutrition (HCC) [E43]Atrial fibrillation with RVR (HCC) [I48.91]Hematemesis [K92.0]Gastric outlet obstruction [K31.1]Allergies:AspirinDate Verified: 09/21/17Lab ValuesLab Value Units Date High LowPOTA* 4.1 mEq/L 09/21/2017 5.1 3.5HEMA* 29.5 % 09/21/2017 51.0 40.1Progress Notes ():Swathi Tompkins, RN, RN 09/12/2017 1:19 PM SignedPt was in endo to get endoscopy done because of chronic heartburn, when hearrived to endo he was in afib RVR rates in the 140-150. Pt also c/o SOB.Pierce Green, Medic, Medic 09/12/2017 1:30 PM SignedBed: ED-10Expected date: 09/12/17Expected time: 12:51 PMMeans of arrival: [facility] 04Comments:A Fib RvR Med Jamila Aleman, RN, RN 09/12/2017 1:32 PM Signed Pt placed on alarm security or surveillance monitor and continuous pulse ox; alarms set and on.Radha Orta MD, MD 09/16/2017 12:43 AM SignedED Provider NotePatient Name: Cristina JeffreyMRN: [id number] DATE: 09/12/17HistoryPatient presents with:UeqzncwkpuhkWHI30 yo M with pmhx of afib not anticoagulated, CHF, COPD, and previous GI bleedrequiring ICU admission presenting today from endoscopy suite after they noticedhis HR to be in the 170s. He was treated with IV esmolol while at endoscopy.Patient never underwent endoscopy due to afib with RVR. Patient is currently oncardizem and lopressor at home, and states that he took them this morning. Hecurrently denies any chest pain, but does endorse SOB. Patient also state thatover the past week, he has experienced worsening of his heart burn symptoms, andhe has had little appetite as a result of this. Patient has epigastric abdominalpain at baseline, but states it has worsened over the past week. Patient doescurrently endorse nausea, as well as mild abdominal distention compared tobaseline. No hematemesis or melena.PAST MEDICAL HISTORYDiagnosis Date- Afib (HCC)- CHF (congestive heart failure) (HCC)- COPD (chronic obstructive pulmonary disease) (HCC)PAST SURGICAL HISTORYProcedure Laterality Date- EGD 06/21/2017 Multiple antral ulcers with 1 large ulcer with a visible vessel at its base asthe source of bleeding. A large ulcer at the pre-pyloric region- EGD 06/23/2017 NG tube induced mucosal tear at GE junction, without bleeding. Multiple ulcersat distal antrum and pyloric channel with significant deformity. PreviouslyEndoclipped and epinephrine injected ulcer is not bleeding and visible vesselhas resolved. 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 Normalduodenum- TUMOR REMOVAL (SPECIFY LOCATION) HX breast, childhoodNo family history on file.Social HistorySocial History Main Topics- Smoking status: Never Smoker- Smokeless tobacco: Never Used- Alcohol use No Comment: quit 6 months ago- Drug use: No- Sexual activity: Not on fileALLERGIESNo Known AllergiesReview of SystemsConstitutional: Negative for chills and fever.HENT: Negative for drooling.Eyes: Negative for visual disturbance.Respiratory: Positive for shortness of breath. Negative for apnea and chesttightness.Cardiovascular : Positive for palpitations. Negative for chest pain.Gastrointestinal: Positive for abdominal distention, abdominal pain and nausea.Negative for diarrhea and vomiting.Skin: Negative for pallor.Neurological: Negative for dizziness, numbness and headaches.Hematological: Negative for adenopathy.Psychiatric/Behavi oral: Negative for confusion and suicidal ideas.All other systems reviewed and are negative.Physical ExamBP 95/66 Pulse 133 Temp (Src) 97.3 (Oral) Resp 30 Ht 5' 9" (1.75m) Wt190 lb (86.2kg) SpO2 95% BMI 28.05 kg/(m2).Physical ExamConstitutional: He is oriented to person, place, and time. He appearswell-developed and well-nourished. No distress.HENT:Head: Normocephalic and atraumatic.Mouth/Throat: Oropharynx is clear and moist.Eyes: EOM are normal. Pupils are equal, round, and reactive to light.Neck: Normal range of motion. No tracheal deviation present.Cardiovascular: Normal heart sounds and intact distal pulses. An irregularlyirregular rhythm present. Tachycardia present.Pulmonary/Chest: Effort normal and breath sounds normal. Tachypnea noted. Norespiratory distress.Abdominal: Soft. Bowel sounds are normal. He exhibits no distension. There is notenderness. There is no rebound.Musculoskeletal: Normal range of motion. He exhibits no edema or deformity.Neurological: He is alert and oriented to person, place, and time. He has normalreflexes. No cranial nerve deficit.Skin: Skin is warm and dry.Psychiatric: He has a normal mood and affect. His behavior is normal. Judgmentnormal.Nursing note and vitals reviewed.Diagnostic TestingResults for orders placed or performed during the hospital encounter of 09/12/17XR CHEST 1V FRONTALResult Value Ref Range Business Management Professor EXAMINATION: CHEST RADIOGRAPH (PORTABLE SINGLE VIEW AP)Exam Date/Time: 09/12/2017 2:26 PMIndication: Shortness of breath and palpitationsComparison: Chest x-ray 06/28/2017RESULT:Lines, tubes, and devices: None.Lungs and pleura: No focal consolidation, mass or pleural effusion is seen.Cardiomediastinal silhouette: Normal in appearance.Bony thorax is appropriate for the patient's age.No pneumothorax is seen.IMPRESSION:No acute or active intrathoracic abnormality is seen.CT ABD/PEL WO IVCONResult Value Ref Range Business Management Professor EXAM TITLE:CT ABDOMEN AND PELVIS W/O CONTRASTDATE:09/12/2017 15:31COMPARISON: None.CLINICAL INDICATION/HISTORY: Abdominal pain and distentionTECHNIQUE: CT examination of the abdomen and pelvis performed without oral or IVcontrast. Sagittal and coronal reconstruction images were generated.CT Radiation dose: Integrated Dose-length product (DLP) for this visit = 792mGy*cm.CT Dose Reduction Employed: Automated exposure control (AEC) was used.FINDINGS:ABDOMINAL FINDINGS:There is a somewhat ill-defined 7 mm subpleural nodule posterior left lower lobeon image 14 of series 2. Multiple additional tiny calcified and noncalcifiednodules are seen at each lung base.There are findings of gastric outlet obstruction with a severely distendedfluid-filled stomach. There is a collapsed duodenum with adjacent mesentericfatinfiltration and a couple of small adjacent nodes. In addition, there isabnormal relative enlargement and central hyp odensity of the pancreatic head worrisomefor a mass lesion, although there is no significant biliary or pancreatic ductaldilatation. The findings are concerning for a malignant process at thepancreatic head with involvement of the duodenum.Overall, evaluation of the visceral organs is limited by the lack of IVcontrast. There are hepatic hypodensities which most likely represent cysts. There aremultiple gallstones within the gallbladder along with possible mild wallthickening. No definite stone within the CBD.The spleen appears normal as do the adrenal glands and left kidney. There is a4cm right renal hypodense mass containing thin internal calcifications likelyrepresenting partially calcified septations. An additional small hypodensitiesseen at the posterior right upper pole. These should be better evaluated byultrasound.Normal appendix.Atherosclerotic changes involving the abdominal aorta. No acute bonyabnormality.PELVIC FINDINGS:Moderate distention of the urinary bladder. Prostate gland is enlarged andimpresses upon the bladder floor. No lymphadenopathy or free fluid is presentwithin the pelvis. There is no acute bony abnormality.IMPRESSION:1. There are findings of gastric outlet obstruction with a severely distendedand fluid-filled stomach. The duodenum is collapsed with a suggestion of mild wallthickening in addition to irregular infiltration of the surrounding fat with afew mildly enlarged adjacent nodes. While this could represent an inflammatory orneoplastic process of the duodenum, all findings are thought to most likely besecondary to a pancreatic head mass worrisome for neoplasm.2. Cholelithiasis.3. Probable hepatic and right renal cysts, although this should be confirmed byultrasound.Findings were conveyed to the covering ED resident physician at the time ofinterpretation.CBC + PLT (AK,AV,EU,FV,HL,GERRY,MM,SP)Resu lt Value Ref Range WBC 9.36 (H) 4.23 - 9.07 thou/cmm RBC 3.46 (L) 4.63 - 6.08 mil/cmm HGB 9.9 (L) 13.7 - 17.5 g/dL Hematocrit 30.0 (L) 40.1 - 51.0 % MCV 86.7 83.2 - 95.6 fl MCH 28.6 25.7 - 32.2 pg MCHC 33.0 32.3 - 36.5 % RDW 15.4 (H) 11.6 - 14.4 % RDW-SD 48.8 (H) 36.1 - 45.8 fl Platelet Count 258 141 - 365 thou/cmm MPV 9.9 8.7 - 12.0 flCOMPREHENSIVE METABOLIC PANEL (AK,AV,EU,FV,HL,GERRY,MM,SP)Resu lt Value Ref Range Sodium 131 (L) 136 - 145 mEq/L Potassium 3.3 (L) 3.5 - 5.1 mEq/L Chloride 93 (L) 98 - 107 mEq/L CO2 30 21 - 32 mEq/L Glucose 92 70 - 99 mg/dL BUN 34 (H) 7 - 18 mg/dL Creatinine 0.84 0.67 - 1.17 mg/dL Calcium 9.3 8.5 - 10.1 mg/dL Albumin 3.2 (L) 3.4 - 5.0 g/dL Protein, Total 6.2 (L) 6.4 - 8.2 g/dL AST 16 9 - 37 U/L ALT 21 12 - 78 U/L Alkaline Phosphatase 51 46 - 116 U/L Bilirubin, Total 0.4 0.2 - 1.0 mg/dL Anion Gap 11 8 - 16MAGNESIUM BLOOD (AK,AV,EU,FV,HL,GERRY,MM,SP)Resu lt Value Ref Range Magnesium 1.8 1.6 - 2.6 mg/dLECU TROPONIN I (CO ED)Result Value Ref Range ECU Troponin I <0.015 0.015 - 0.045 ng/mlECU TROPONIN I (CO ED)Result Value Ref Range ECU Troponin I <0.015 0.015 - 0.045 ng/mlPROBNP N-TERMINAL (AK,AV,EU,FV,HL,GERRY,MM,SP)Resu lt Value Ref Range NT Pro BNP 1,728 pg/mlPROTHROMBIN TIME / PT (AK,AV,EU,FV,HL,GERRY,MM,SP)Resu lt Value Ref Range Prothrombin Time 11.7 9.3 - 11.9 sec INR 1.13MDRD GFRResult Value Ref Range eGFR >60 >60mL/min/1.17f1JLWHSI BLOOD (AK,AV,EU,FV,HL,GERRY,MM,SP)Resu lt Value Ref Range Lipase 639 (H) 73 - 393 U/LECU TROPONIN I (CO ED)Result Value Ref Range ECU Troponin I <0.015 0.015 - 0.045 ng/mlProceduresMedical Decision MakingMDMHistory of present illness, view of systems, and physical exam as above.Patient treated with IV fluids, antiemetics and Protonix. He was started ondiltiazem bolus with drip. His workup here included CBC, CMP, lipase, EKG,troponin, coags, magnesium, BNP, chest x-ray, as well as CT abdomen and pelvis.Labs notable for mildly elevated WBC of 9.36. Hyponatremia with sodium of 131.Hypokalemia with potassium of 3.3. Lipase mildly elevated at 639. BNP slightlyelevated at 1728. Magnesium mildly low at 1.8. EKG show A. fib without acuteischemic changes. Troponinx3 negative. Chest x-ray without acute intrathoracicabnormalities.CT abdomen and pelvis show high-grade gastric outlet obstruction secondary topancreatic head mass.Patient was unable to tolerate diltizem due to hypotensive BP despite beinggiven 2 L of fluids. Diltizem held.Surgery consulted, and they recommended NG tube insertion, which produced 2 L ofdark red gastric content in the ED. Surgery did not want to admit patient asprimary secondary to A. fib. CVICU attending was paged, who also did not wantto accept the patient as primary due to gastric outlet obstruction. MICU wasconsulted, and has accepted the patient for admission to their service.ED Course / Clinical ImpressionED Course as of Sep 15 2212Others' DocumentationTue September 12, 20171932 ED Attending Continuation of Care NoteMay 2017 7:32 PMDseth Jeffrey was endorsed to me by Dr. Orta.The patient initially presented to the ED for: A fib with RVR.Signout note reviewedDiagnostics were reviewed. Rivera findings: CT a/P showed gastric outletobstruction likely 2/2 pancreatic head mass.New Physical Exam findings: Remains with soft BPs in 80's systolic. Cardizemdiscontinued, HR stable in 120-130s.Clinical Course: Surgery consulted regarding CT findings. Surgery requested NGT.Does not wish to admit pt primarily as no immediate need for surgery and needscontrol of Afib. CVICU attending spoke with ED resident, and does not wish toadmit primarily due to gastric outlet obstruction. MICU consulted, dispo perMICU.Bashir Bazan MD [BK]ED Course User Index[BK] Bashir Bazan [facility] EDMONDlinical Impressions as of September 15trial fibrillation with RVR (HCC)Gastric outlet obstructionPancreatic massPlanThe patient was ADMITTED TO: ICU MICU.Condition at time of disposition: stableSIGNATURE: Holly Ramos (Res) Lanette Poolet09/15/174Critical CareI spent a total of 35 minutes of critical care time in the evaluation andmanagement of this patient. This was necessary to treat or prevent deteriorationof the following condition(s): Cardiovascular impairment, which the patient hadand/or has a high probability of suddenly developing. The patient receivedCardizem drip and Consultation by MICU/CCU during the time that critical carewas provided.I discussed the plan of care with the Resident and agree with thefindings documented. Critical care time excludes separately billed procedures.Fantasma Torres MD09/16/17 0043Previous VersionSdesi Aleman, RN, RN 09/12/2017 3:[address] to [address] with Nurse.Madeline Aleman, GREGORY, RN 09/12/2017 3:46 PM SignedPatient returned to the Emergency Department.Madeline Aleman, GREGORY, RN 09/12/2017 5:12 PM Signed Stopped cardizem gtt per request of Dr Poole.Raul Baxter MD 09/12/2017 7:33 PM Attested -Attestation signed by Venus Foster at 09/13/2017 1:26 PMAttending NoteI personally saw and examined the patient. I reviewed the resident's note. 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 Will await CT scan for staging toassess if candidate for resection. Cont NG tube for now. Start TPNSignature: Venus Foster, MDDate: 09/13/2017Time: 1:25 PM CONSU LT: Elective General Surgery SERVICESERVICE DATE: 09/12/2017SERVICE TIME: 4:57 PMREASON FOR CONSULT: GOO, pancreatic head mass.REQUESTING PHYSICIAN: EDPRIMARY CARE PHYSICIAN: CANDICE Perez ChiubjectMarcusAntonina Jeffrey is a 72 year old male who presented to the ED after being sent fromendoscopy. He was scheduled for EGD and the procedure was not performed becausepatient went into a-fib with RVR. He is not on anticoagulation. He wasrecently admitted for UGI bleed that required branches of the GDA andgastroepiploic artery embolized on 06/23/2017. He had 2 EGDs that admission withclips/epi administration. He has recurrent gastric ulcers for the majority ofhis life according to patient. He has had around 5-8 lb weight loss over thepast few months. He has low grade intermittent epigastric pain. He has beenvomiting for the past day. No fever/chill, SOB, dizziness. He is having bowelfunction and has been passing gas.FUNCTIONAL STATUS: IndependentPAST MEDICAL HISTORYDiagnosis Date- Afib (HCC)- CHF (congestive heart failure) (HCC)- COPD (chronic obstructive pulmonary disease) (HCC)PAST SURGICAL HISTORYProcedure Laterality Date- EGD 06/21/2017 Multiple antral ulcers with 1 large ulcer with a visible vessel at its base asthe source of bleeding. A large ulcer at the pre-pyloric region- EGD 06/23/2017 NG tube induced mucosal tear at GE junction, without bleeding. Multiple ulcersat distal antrum and pyloric channel with significant deformity. PreviouslyEndoclipped and epinephrine injected ulcer is not bleeding and visible vesselhas resolved. 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 Normalduodenum- TUMOR REMOVAL (SPECIFY LOCATION) HX breast, childhoodNo family history on file.Social HistorySubstance Use Topics- Smoking status: Never Smoker- Smokeless tobacco: Never Used- Alcohol use No Comment: quit 6 months ago(Not in a hospital admission)Current hospital medications:dilTIAZem 100 mg in D5W 100 mL ADD-Arvilla (CARDIZEM) 5-15 mg/hr INTRAVENOUSCONTINUOUSAllergie s As of Date: 09/12/2017(No Known Allergies)Fully Assessed 09/12/2017COMPLETE REVIEW OF SYSTEMS:10 pt ROS performed and negative except as in HPI.ObjectivePHYSICAL EXAM:Physical Exam Performed:Gen - laying in bed, NAD, [id number] - EOMI, mucus membranes moist, PEERLCV - HR and BP WNL on monitors.Resp - respirations unlabored.Abd - soft, upper abdominal distension. Minimally tender in epigastric area.No rebound or guarding.EXT - JERONIMO, no edema.BP 108/62 Pulse 146 Temp (Src) 97.3 (Oral) Resp 20 Ht 5' 9" (1.75m) Wt190 lb (86.2kg) SpO2 96% BMI 28.05 kg/(m2).DATA:Diagnostic tests reviewed for today's visit:CBC, Coags, BMP, Mg, PhosRecent Labs WBC 9.36*HB 9.9*HCT 30.0*PLT 258INR 1.13NA 131*K 3.3*CHLOR 93*CO2 30BUN 34*CREAT 0.84GLUC 92CA 9.3MG 1.8Liver Function, Amylase, AND LipaseRecent Labs TPROT 6.2*ALB 3.2*ALT 21AST 16ALKPHOS 51TBILI 0.4Cardiac EnzymesABGsImaging:CT abd/pelvis, non contrast:IMPRESSION:1. ?There are findings of gastric outlet obstruction with a severely distendedand?fluid-filled stomach. ?The duodenum is collapsed with a suggestion of mild wallthickening in addition to irregular infiltration of the surrounding fat with afew?mildly enlarged adjacent nodes. ?While this could represent an inflammatory orneoplastic process of the duodenum, all findings are thought to most likely besecondary to a pancreatic head mass worrisome for neoplasm.2. ?Cholelithiasis.3. ?Probable hepatic and right renal cysts, although this should be confirmed byultrasound.Impression/Recom mendationsActive Problems: * No active hospital problems. *Resolved Problems: * No resolved hospital problems. 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 Sent to ED from endoscopy forA-fib/RVR. Concerning for possible gastrinoma vs adenoCA of pancreas.- medicine to admit for A-fib management.- protonix dose given in ED.- NGT placed in ED.- will collect gastrin, CA19-9, CEA level.- CT pancreas protocol in the AM. CT chest in AM for staging.- continue PPI.- surgical planning pending imaging/lab results.Case discussed with Dr. Foster.SIGNATURE: Raul Baxter MD PATIENT NAME: Cristina JeffreyDATE: September 12, 2017 : 4:57 PM PAGER: [phone] Astrid Moreno MD 09/12/2017 9:30 PM Attested -Attestation signed by Reina Vinicius at 09/12/2017 9:44 [facility] STAFF PHYSICIAN NOTE OF PERSONAL INVOLVEMENT IN CAREI have reviewed the history and physical examination obtained and documented bythe resident and I personally participated in the rivera components. I havediscussed the case and management of the patient's care. The following commentsrevise or confirm relevant rivera components of the note.72/M with recent hospital admission for GIB secondary to PUD (pre-pyloric Kaveh),s/p EGD (Multiple ulcers at the antrum and pyloric channel region with markeddeformity and narrowing of the pyloric channel. ?Previously noted visiblevessel haseffectively been sealed with Endoclips and there was no furtherbleeding in?that region. ?Further down in the pyloric channel, there wasdeformity and deep ulcer and oozing from the surface of the mucosa. ?Thedescending duodenumwas normal.). with clipping and epi injection followed byangio-embolization of gastroduodenal and gastroepiploic arteries in June 2017.Patient seen by Dr Dominguez as follow up and presented for repeat endoscpopy today.Was sent to the ER for Afib RVR. CT abdomen was done due to abdominal pain.Large distended stomach with gastric outlet obstruction, flattened duodenum wasseen, mass like lesion at head of pancreas also noted. Evaluated by surgery,NGT placed, large output. Patient feels better. Denies abdominal pain. No chestpain/sob.cardiazem gtt was started but turned off due to hypotension. Received 3L IVF.140s - 160s Afib RVR 93/63Awake, alert, comfortableMMM, peripheries warm, good cap refillabd distended but soft, NTNo c/c/eMoves all ext, aox3CT abdomen: 1. ?There are findings of gastric outlet obstruction with aseverely distended and?fluid-filled stomach. ?The duodenum is collapsed with a suggestion of mildwallthickening in addition to irregular infiltration of the surrounding fat with afew?mildly enlarged adjacent nodes. ?While this could represent an inflammatory orneoplastic process of the duodenum, all findings are thought to most likely besecondary to a pancreatic head mass worrisome for neoplasm.2. ?Cholelithiasis.3. ?Probable hepatic and right renal cysts, although this should be confirmedbyultrasound.CXRNASO GASTRIC TUBE TERMINATES WITHIN THE DISTAL ESOPHAGUS. ?THIS SHOULD BEADVANCEDAT LEAST 10 CM.?LUNGS REMAIN CLEAR.CEA negativeCA 19-9 and gastrin pendingTroponin x 2 negLipase 639Cr 0.84IMPRESSION:?Afib RVR?Hypotension?Gastric outlet obstruction: stricture vs compression by mass?Pancreatic mass?Recent UGIB, s/p angio-embolization of gastroduodenal and gastroepiploicarteries in June 2017?Hyponatermia/hypochlorem ia/hypokalemia?Elevated lipase: pancreatitis vs tumor related?cholelithasis?Anemia: chronicPLAN:?Digoxin?IVF?Candace tor hr/bp?NGT to suction?Evaluation of obstruction/mass Per surgery??MRI abdomen?Consult GI?Replace electrolytes?Anticoagulation if ok with GI?lovenox sqPatient/Family Updated: yesThis patient has a high probability of sudden, clinically significantdeterioration, which requires the highest level of physician preparedness tointervene urgently. I managed/supervised life or organ supportinginterventions that required frequent physician assessment. I devoted my fullattention to the direct care of this patient for the amount of time indicatedbelow. Time I spent with family or surrogate(s) is included only if thepatient was incapable of providing the necessary information or participatingin medical decision making. Time devoted to teaching and to any procedures Ibilled separately is not included.Critical Care Documentation: The patient has the following organ/systemimpairment(s): A fib RVR, hypotension, Gastric outlet obstructionTime spent providing critical care services: 40 minutes.SIGNATURE: MAICO Isabel INSTITUTEPAGER:[id number] of SERVICE: September 12, 2017TIME of SERVICE: 9:44 PM HISTO RY AND PHYSICAL EXAMINATIONSERVICE DATE: 09/12/2017SERVICE TIME: 7:35 [facility] CARE PHYSICIAN: Clifton Del Valle, [id number] yo male with a PMH of Afib previously on anticoagulation, CHF, COPD, GI bleedwho presented to endoscopy today for evaluation of gastric ulcers per patient.The patient was noted to be tachycardic in endoscopy and given IV Esmolol. Thepatient was then sent to ED for evaluation. He was noted to be in Afib with RVRin ED and given Cardizem bolus and started on Cardizem gtt. The patients HRimproved to 80 but his BP decreased and the Cardizem gtt was discontinued.Patient believes he took his Metoprolol and Cardizem at home this morning. Thepatient denies chest pain but endorses palpitations. He refers that he was SOBat presentation to the endoscopy today. He refers that he has been experiencingepigastric pain for years and has induced episodes of emesis which relieves thepain. He denies hematemesis. He denies nausea.Of note during his last admission in June the patient was in hemorrhagic shockwith acute blood loss anemia and was admitted to ICU. He had 2 EGDsdemonstrating multiple antral ulcers with 1 large ulcer with a visible vesseland large pre-pyloric ulcer. Repeat EGD demonstrated NG induced mucosal tear atGE junction without bleeding, multiple ulcers at the distal antrum and pyloricchannel, the prior endoclipped and epinephrine injected ulcer was not bleeding.The pyloric ulcer with deformity and stenosis and intermittent oozing of bloodwithout visible vessel. Patient had IR embolization of gastroduodenal andgastroepiploic arteries completed after 2nd EGD. Plan was for follow upendoscopy with GI.In the ED he was given 40 mg IV Protonix, 4 mg Zofran, 3L NS bolus, Atrovent,Cardizem 10 mg IV and started on Cardizem gtt.FUNCTIONAL STATUS: IndependentPAST MEDICAL HISTORYDiagnosis Date- Afib (HCC)- CHF (congestive heart failure) (HCC)- COPD (chronic obstructive pulmonary disease) (HCC)PAST SURGICAL HISTORYProcedure Laterality Date- EGD 06/21/2017 Multiple antral ulcers with 1 large ulcer with a visible vessel at its base asthe source of bleeding. A large ulcer at the pre-pyloric region- EGD 06/23/2017 NG tube induced mucosal tear at GE junction, without bleeding. Multiple ulcersat distal antrum and pyloric channel with significant deformity. PreviouslyEndoclipped and epinephrine injected ulcer is not bleeding and visible vesselhas resolved. 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 Normalduodenum- TUMOR REMOVAL (SPECIFY LOCATION) HX breast, childhoodNo family history on file.Social HistorySubstance Use Topics- Smoking status: Never Smoker- Smokeless tobacco: Never Used- Alcohol use No Comment: quit 6 months ago(Not in a hospital admission)ALLERGIESNo Known AllergiesCOMPLETE REVIEW OF SYSTEMS:Review of SystemsConstitutional: Positive for appetite change and unintentional wt loss .Negative for chills and fever.Respiratory: Positive for shortness of breath. Negative for cough.Cardiovascular: Positive for palpitations. Negative for chest pain and legswelling.Gastrointestinal: Positive for abdominal pain, constipation and vomiting.Negative for abdominal distention, blood in stool, diarrhea and nausea.Genitourinary: Negative for dysuria, frequency and urgency.Skin: Negative for color change.Neurological: Negative for dizziness, syncope and light-headedness.Hematologica l: Does not bruise/bleed easily.ObjectivePHYSICAL EXAM:Physical ExamConstitutional: He is oriented to person, place, and time. He appearswell-developed and well-nourished. No distress.HENT:Head: Normocephalic and atraumatic.Eyes: EOM are normal. Pupils are equal, round, and reactive to light.Neck: Neck supple. No JVD present. No thyromegaly present.Cardiovascular: An irregular rhythm present. Tachycardia present. Exam revealsno gallop and no friction rub.No murmur heard.Pulmonary/Chest: Breath sounds normal. No respiratory distress. He has nowheezes. He has no rales.Abdominal: Soft. Bowel sounds are normal. He exhibits no distension. There is notenderness. There is no rebound and no guarding.Musculoskeletal: He exhibits no edema.Neurological: He is alert and oriented to person, place, and time. No cranialnerve deficit.Skin: Skin is warm and dry. No rash noted. He is not diaphoretic. No erythema.BP 93/63 Pulse (!) 128 Temp 36.3 ?C (97.3 ?F) (Oral) Resp 22 Ht175.3 cm (5' 9") Wt 86.2 kg (190 lb) SpO2 98% BMI 28.06 kg/m?Body mass index is 28.06 kg/m?.DATA:Diagnostic tests reviewed for today's visit:Most recent labs and imaging results.CT abdomen/pelvis:1. ?There are findings of gastric outlet obstruction with a severely distendedand fluid-filled stomach.?The duodenum is collapsed with a suggestion of mildwall thickening in addition to irregular infiltration of the surrounding fatwith a few mildly enlarged adjacent nodes. ?While this could represent aninflammatory or neoplastic process of the duodenum, all findings are thought tomost likely be secondary to a pancreatic head mass worrisome for neoplasm.2. ?Cholelithiasis. There are multiple gallstones within the gallbladder alongwith possible mild wall thickening. ?No definite stone within the CBD.3. ?Probable hepatic and right renal cysts, although this should be confirmed byultrasound.Echo 06/2017Normal left ventricular size and systolic function. No regional wall motionabnormalities. LVEF is 55-60% by visual estimation. The inferior vena cava isnormal in size but does not collapse > 50% with inspiration. Right atrialpressure is estimated at 8 mmHg. The right ventricle is not well visualized. Onlimited views, it has grossly normal size and mildly reduced function.Assessment/PlanAtria l fibrillation with RVR: Troponin negative * 2. INR 1.13. Patientpreviously on anticoagulation which was discontinued due to GI bleed in June.Will start patient on Digoxin as he did not tolerate Cardizem.Gastric Outlet obstruction: Surgery on board. NG tube placed in ED. Keep patientNPO. Surgery will contiue to follow.Pancreatic Mass concerning for neoplasm: Patient endorses 10-15 lb weight lossin the past few months.Lipase elevated to 631. Surgery on board. Gastrin, [id number] CEA level pending. CT chest ordered for staging. Consider MRI when patientis stable from a cardiac standpoint.Cholelithiasis: There are multiple gallstones within the gallbladder along withpossible mild wall thickening. No definite stone within the CBD. Patient is notexperiencing any RUQ pain. Consider further evaluation with US and HIDA scan ifclinical pictures evolves.Chronic Normocytic Anemia: Dark output from NG. Continue patient on Protonix.Consider GI consult and endoscopy during this admission after patient evaluatedwith further imaging and considered for surgical intervention.Hypokalemia: Replace potassium with goal >4 and magnesium goal >2.DVT prophylaxis: SCDsSIGNATURE: Annel Moreno MD PATIENT NAME: Cristina JeffreyDATE: September 12, 2017 : 7:35 PM PAGER/CONTACT #: [id number] VersionAlecarlin Doll RN, RN 09/12/2017 8:38 PM Signed 2L of Brown nasogastric contents at this time.Claudio Doll RN, RN 09/12/2017 10:02 PM Signed Report given to Gregory Harmon at this time. Aware of outstanding CT's tomorrowmorning. Bed not ready at this timeVenus Foster MD 09/13/2017 2:00 PM AddendumElective Surgery Progress NoteSERVICE DATE: 09/13/2017SUBJECTIVE:No pain or N since NG placed. Not much output from NG though. + flatus.DIET NPOOBJECTIVE:Temp (24hrs), Av.2 ?C (97.1 ?F), Min:36 ?C (96.8 ?F), Max:36.3 ?C (97.3 ?F)BP 103/72 Pulse 94 Temp 36.2 ?C (97.2 ?F) Resp 19 Ht 175.3 cm (5'9.02") Wt 80.9 kg (178 lb 5.6 oz) SpO2 99% BMI 26.33 kg/m?O2 Therapy: Nasal CannulaDate 09/12/17 0700 - 09/13/17 0659 09/13/17 0700 - 09/14/17 0659Shift 8989-5055 0587-4567 1018-8845 24 Hour Total 6547-2232 3593-8800 2300-474028 Hour TotalINTAKE PO 0 0 PO 0 0 IV 1300 1300 IVPB 1000 1000 Potassium IVPB 200 200 Magnesium IVPB 100 100 Irrigants 30 30 Irrigant/Flush Amount In (GI Feed/Drain 09/12/17 0700 Nasogastric Right) 3030 Shift Total 1330 1330OUTPUT Urine 450 450 Void (ml) 450 450 Tubes 0 0 0 Output (GI Feed/Drain 09/12/17 0700 Nasogastric Right) 0 0 0 # of BMs Number of BMs 0 x 0 x Shift Total 0 450 450Weight (kg) 86.2 80.9 80.9 80.9 80.9 80.9 80.9 80.9Current Facility-Administered Medications:ondansetron (PF) 4 mg injection (ZOFRAN) 4 mg INTRAVENOUS q 6 H PRNiv contrast (radiology procedure) INTRAVENOUS DIRECTED PRNiv contrast (radiology procedure) INTRAVENOUS DIRECTED PRNpotassium chloride 80-120 mEq oral liquid 80-120 mEq ORAL/FEEDING TUBE PRNpotassium chloride iv piggyback 20 mEq in sterile water 100 mL 20 mEqINTRAVENOUS PRNmagnesium sulfate in water 2 g in sterile water 50 ml 2 g INTRAVENOUS PRNsodium phosphate 45 mmol in NaCl 0.9% 250 mL 45 mmol INTRAVENOUS PRNcalcium gluconate 4 g in NaCl 0.9% 250 mL 4 g INTRAVENOUS PRNenoxaparin 40 mg injection (LOVENOX) 40 mg SUBCUTANEOUS DAILYdigoxin 500 mcg injection (LANOXIN) 500 mcg INTRAVENOUS ONCEmagnesium sulfate in sterile water 4 g iv piggyback 4 g INTRAVENOUS ONCEpantoprazole 40 mg injection (PROTONIX) 40 mg INTRAVENOUS DAILY (6 AM)Recent Labs 5 NA 135* 131*K 4.1 3.3*CHLOR 106 93*CO2 27 30BUN 20* 34*CREAT 0.67 0.84GLUC 90 92ANION 6* 11CA 7.8* 9.3MG -- 1.8ALB -- 3.2*AST -- 16ALT -- 21ALKPHOS -- 51TBILI -- 0.4WBC 7.97 9.36*HB 9.1* 9.9*HCT 28.4* 30.0*PLT 212 258INR -- 1.13Exam:GENERAL: No distress, AlertNEURO: [id number]: normocephalic, atraumaticLUNGS: Unlabored breathingCARDIAC: Regular rate and rhythm as aboveABDOMEN: soft, distended, no ttpEXTREMITIES: JERONIMO, No deformities, No edemaSKIN: Skin color, texture, turgor normal, No rashes or lesionsASSESSMENT AND PLAN:Active Hospital Problems Diagnosis Date Noted- Atrial fibrillation with RVR (HCC) 09/12/201772 YOM with likely pancreatic head mass and GOO. Sent to ED from endoscopy forA-fib/RVR. Concerning for possible gastrinoma vs adenoCA of pancreas. H/oantral ulcers AND hpylori?- A-fib mgnt per medicine- protonix- NGT to LIWS- CEA 1.7- f/u gastrin AND CA19-9- P- CT pancreas protocol this AM AND CT chest for staging.- continue PPI.- surgical planning pending imaging/lab results.?Vicki Breaux, DOGeneral Surgery PGY-4May 2017 6:09 AMPager: [phone] also consult GI for an EGD to evaluate if this is from ulcer or from tumorin pancreas.Venus Foster MD2:00 PM09/13/17 ---Attestation signed by Venus Foster at 09/13/2017 1:27 PM to a previous versionAttending NoteI personally saw and examined the patient. I reviewed the resident's note. Iagree with the resident's assessment and plan with the following revisionsand/or additions: await ct scan results. Will check chromogranin levelSignature: SREE Quinnate: 09/13/2017Time: 1:26 PM Emma Orta MD, 09/13/2017 7:17 AM SignedAttending NoteI evaluated the patient and personally participated in the rivera components. Ipersonally saw and examined the patient. I reviewed the resident's or PA'snote. I agree with the resident's or PA's assessment and plan unless otherwisenoted. I was present for the rivera portions of the procedure.HPI: 72 year old MALE with a history of COPD, atrial fibrillation presents forafib rvr found at pre-surg for endoscopy. Has had heartburn, feels it now.Denies SOB. Family says he is always SOB. No CP palpitations. Despite being NPO,he did take his cardiac medications this morning, possible cardizem andmetoprolol. Anesthesia gave him esmolol for afib rvr. Pt reports abd bloatingand distention but no pain.Vitals BP 95/66 Pulse (!) 133 Temp 36.3 ?C (97.3 ?F) (Oral) Resp (!) 30 Ht 175.3 cm (5' 9") Wt 86.2 kg (190 lb) SpO2 95% BMI 28.06 kg/m?Gen AANDOx3, awake, moderate tachypneaNeuro NCAT PERRLA no focal neuro deficits MAECVS irreg irregPulm scattered wheeze and rhonchiAbd Soft NT +distention no fluid wave +BSExt no c/eMedical decision making:I spoke to anesthesiologist who sent patient here. Remains in afib rvr, EKGshows rate 149 with new t wave inversions II III old in lateral leads. BP nwb450/66, getting IVF. Plan for cardizem bolus and possibly drip for rate control.CXR. Labs including BNP trop. Likely wheezing due to COPD. Abd distentionwithout pain. When stabilized, CT of abd to r/o bowel obstruction, perforation.Radha Orta MD2:16 PMMa2017Radha Orta MD09/13/17 0717Sacassia Avalos MD 09/13/2017 11:56 AM Attested -Attestation signed by Noe Quick at 09/13/2017 12:43 PM (Updated)[facility] STAFF PHYSICIAN NOTE OF PERSONAL INVOLVEMENT IN CAREI have reviewed the progress note obtained and documented by the resident and Ipersonally participated in the rivera components. I have discussed the case andmanagement of the patient's care. The following comments revise or confirmrelevant rivera components of the note.Interval history:Patient is resting comfortably in bed without any current complaints.He has a NG in place to LIWS, but it does not appear to be decompressing hisstomach. Dr. Foster is evaluating him for this.Exam:Irregularly irregular, tachycardicClear to auscultation without wheezing bilaterally anteriorly.Minimal bowel sounds, soft, nontender, significantly distended.No pedal edema bilaterally.Poor turgor, but dry, intact skin.Data:Reviewed as detailed below.IMPRESSION:ACTIVE PROBLEM LISTShock (Hcc)Copd (Chronic Obstructive Pulmonary Disease) (Hcc)HypertensionHyperlipidem iaGI BleedingAcute Respiratory Failure With Hypoxia and Hypercapnia (Hcc)Acute Blood Loss AnemiaHemorrhagic Shock (Hcc)HypophosphatemiaAtrial Fibrillation With Rapid Ventricular Response (Hcc)Severe Protein-Calorie Malnutrition (Hcc)Atrial Fibrillation With Rvr (Hcc)Pancreatic tumorPLAN:Currently rate controlled on diltiazem drip at 15 mg/hour after two boluses of20 mg diltiazem (40 mg total) which finally responded only after metoprolol 5mg IVP.Will consult Dr. Yung () for for further evaluation and treatment of thepatient's atrial fibrillation which will be more challenging as enteralmedications will not be an option for some time.Continue NG tube to LIWS.Dr. Foster (General Surgery) is planning for resection of his pancreatic tumor.Place dual lumen PICC.Start TPN tomorrow.Continue supportive care.Continue ICU monitoring.This patient has a high probability of sudden, clinically significantdeterioration, which requires the highest level of physician preparedness tointervene urgently. I managed/supervised life or organ supportinginterventions that required frequent physician assessment. I devoted my fullattention to the direct care of this patient for the amount of time indicatedbelow. Time I spent with family or surrogate(s) is included only if thepatient was incapable of providing the necessary information or participatingin medical decision making. Time devoted to teaching and to any procedures Ibilled separately is not included.Patient/Family Updated: Patient, Cristina Jeffrey, was updated regarding thegoals of care, medical plan for the day, retail sales vitamin consultant recommendations, medicaldisposition and current medical condition/prognosis as and if clinicallyindicated. All questions and concerns were answered and addressed at thisjuncture.They were notified on September 13, 2017 at 08:20. The duration of the conversationwas 10-15 minutes.PROGNOSIS: GuardedCode status: Full Code.Discussed with Registered Nurse, Pharmacist and Residents while performingmultidisciplinary rounds.Critical Care Documentation:The patient has the following organ/system impairment(s):Atrial fibrillation with rapid ventricular responseTime spent providing critical care services: 40 minutes.SIGNATURE: Noe Quick, [facility] RESPIRATORY INSTITUTEPAGER:[id number] of SERVICE: September 13, 2017TIME of SERVICE: 12:21 PM Medic al Intensive Care Progress NoteMay 2017Patient Name: Cristina Jeffrey [id number] Date: 09/12/2017 Length of Stay: 1Primary Service: Medical Intensive CareCase background:72 year old white male with a sig PMH of A fib (not anti-coag), CHF, COPD,previous GI bleed presents with Afib with RVR found at pre-surg for endoscopyfor evaluation of gastric ulcers. HR was in 170s. The patient reported worseningheartburn, and decreased appetite as a result of this. He denied SOB,CP,palpitations. He was treated with IV esmolol while at endoscopy, and withdiltiazem drip in the ED. The physician did not proceed with the endoscopy dueto A fib with RVR. Patient continued to reports abd bloating and distention butno pain.The patient was transferred to ICU for management of A Fib w/ RVR and gastricoutlet obstruction possibly due to a pancreatic mass.Diltiazem drip was stopped due to hypotension. NG tube is in place. Suction doesnot show upper GI bleed. The patient is on 2L Oxygen.Interval History for 09/13/17:No adverse events overnight. The patient seen and examined in the AM. Hecontinues state that he is hungry. He reports that his SOB has improved. He nolonger has heartburn symptoms. Patient denies any fevers, chills, chest pain,nausea, vomiting,diarrhea, abdominal pain, dysuria, hematuria, lightheadedness, limb swelling.Current Outpatient Prescriptions on File Prior to Encounter:ergocalciferol, vitamin D2, (VITAMIN D) 50,000 unit capsule Take 50,000 Units bymouth once each week.potassium chloride 20 mEq/kg/dose once daily.carvedilol (COREG) 12.5 mg tabletlisinopril (ZESTRIL, PRINIVIL) 20 mg tabletpredniSONE (DELTASONE) 10 mg tabletmetoprolol tartrate, short acting, (LOPRESSOR) 50 mg tablet Take 1 tablet bymouth every 8 hours.diltiazem CD (CARDIZEM CD, CARTIA XT) 240 mg 24 hr capsule Take 1 capsule bymouth once daily.pantoprazole DR (PROTONIX) 40 mg tablet Take 1 tablet by mouth twice daily.Bismuth Subsalicylate (PEPTO-BISMOL) 262 mg tab Take 1 tablet by mouth twicedaily for 14 days.Vit A,C,Z-Texz-Easuqt (PRESERVISION AREDS) 14,320-226-200 kncz-iw-uqds cap Take1 capsule by mouth twice daily.albuterol (PROVENTIL) 2.5 mg /3 mL (0.083 %) nebulizer solution Use 2.5 mg vianebulizer every 4 hours as needed for Wheezing/Shortness of Breath.pravastatin (PRAVACHOL) 40 mg tablet Take 40 mg by mouth once daily.budesonide-formoterol (SYMBICORT) 160-4.5 mcg/actuation inhaler Inhale 1 Puff asinstructed twice daily.guaiFENesin (MUCINEX) 600 mg 12 hr tablet Take 1,200 mg by mouth twice daily.furosemide (LASIX) 40 mg tablet Take 40 mg by mouth twice daily.ObjectivePresent Condition: 09/13/18060 5 BP: 111/72 101/56 101/56 97/67Pulse: 107 107 109Resp: 20Temp: 36.2 ?C (97.2 ?F)TempSrc: AxillarySpO2: 96% 95% 95% 95%Weight:Height:PHYSICAL EXAMINATION: Performed with findings detailed below on 09/13/17Constitutional: He is oriented to person, place, and time. He appearswell-developed and well-nourished. No distress.HENT:Head: Normocephalic and atraumatic.Mouth/Throat: Oropharynx is clear and moist.Eyes: EOM are normal. Pupils are equal, round, and reactive to light.Neck: Normal range of motion. No tracheal deviation present.Cardiovascular: Normal heart sounds and intact distal pulses. An irregularlyirregular rhythm present. Tachycardia present.Pulmonary/Chest: Effort normal and breath sounds normal. Tachypnea noted. Norespiratory distress.Abdominal: Firm. Distention noted. Bowel sounds are normal. There is notenderness with palpation. There is no rebound or guarding noted.Musculoskeletal: Normal range of motion. He exhibits no edema or deformity.Neurological: He is alert and oriented to person, place, and time. He has normalreflexes. No cranial nerve deficit.Skin: Skin is warm and dry.Psychiatric: He has a normal mood and affect. His behavior is normal. Judgmentnormal.Nursing note and vitals reviewed.?Current Facility-Administered Medications:ondansetron (PF) 4 mg injection (ZOFRAN) 4 mg INTRAVENOUS q 6 H PRN Annel(Res) [place] 4 mg at 09/13/17 0013iv contrast (radiology procedure) INTRAVENOUS DIRECTED PRN Raul (Res)Guzowskiiv contrast (radiology procedure) INTRAVENOUS DIRECTED PRN Raul (Res)Guzowskipotassium chloride 80-120 mEq oral liquid 80-120 mEq ORAL/FEEDING TUBE PRNAlessandra (Res) Bouffordpotassium chloride iv piggyback 20 mEq in sterile water 100 mL 20 mEqINTRAVENOUS PRN Annel (Res) Bouffordmagnesium sulfate in water 2 g in sterile water 50 ml 2 g INTRAVENOUS PRNAlessandra (Res) [place] Last Rate: 25 mL/hr at 09/12/17 2320 2 g at 217956svoqhu phosphate 45 mmol in NaCl 0.9% 250 mL 45 mmol INTRAVENOUS PRN Annel(Res) Bouffordcalcium gluconate 4 g in NaCl 0.9% 250 mL 4 g INTRAVENOUS PRN Annel (Res)Bouffordenoxaparin 40 mg injection (LOVENOX) 40 mg SUBCUTANEOUS DAILY Annel (Res)Boufforddigoxin 500 mcg injection (LANOXIN) 500 mcg INTRAVENOUS ONCE Annel (Res)Bouffordmagnesium sulfate in sterile water 4 g iv piggyback 4 g INTRAVENOUS ONCEAlessandra (Res) Bouffordpantoprazole 40 mg injection (PROTONIX) 40 mg INTRAVENOUS DAILY (6 AM)Annel (Res) [place] 40 mg at 09/13/17 0554IMAGING:Chest x-ray = no acute or active intrathoracic abnormality seenCT abd/pelvis without IV contrast =ABDOMINAL FINDINGS:There is a somewhat ill-defined 7 mm subpleural nodule posterior left lower lobeon image 14 of series 2. ?Multiple additional tiny calcified and noncalcifiednodules are seen at each lung base.PELVIC?FINDINGS:Moderate distention of the urinary bladder. ?Prostate gland is enlarged andimpresses upon the bladder floor. ?No lymphadenopathy or free fluid is presentwithin the pelvis. ?There is no acute bony abnormality.?IMPRESSION:1. ?There are findings of gastric outlet obstruction with a severely distendedand?fluid-filled stomach. ?The duodenum is collapsed with a suggestion of mild wallthickening in addition to irregular infiltration of the surrounding fat with afew?mildly enlarged adjacent nodes. ?While this could represent an inflammatory orneoplastic process of the duodenum, all findings are thought to most likely besecondary to a pancreatic head mass worrisome for neoplasm.2. ?Cholelithiasis.3. ?Probable hepatic and right renal cysts, although this should be confirmed byultrasound.Notable morning labs:Labs:CBC:Recent Labs 09/12/1813WBC 7.97 9.36*HB 9.1* 9.9*HCT 28.4* 30.0*PLT 212 258MCV 90.4 86.7COAG:Recent Labs INR 1.13BMP:Recent Labs 09/12/1813GLUC 90 92NA 135* 131*K 4.1 3.3*CHLOR 106 93*CO2 27 30ANION 6* 11BUN 20* 34*CREAT 0.67 0.84CHEM:Recent Labs 09/12/1813LB -- 3.2*TPROT -- 6.2*CA 7.8* 9.3MG -- 1.8HEPATIC:Recent Labs 09/12/1813LKPHOS -- 51ALT -- 21AST -- 16TBILI -- 0.4LIPASE 639* --CARDIAC: Troponins < 0.015CEA = 1.7Intake/Output Summary (Last 24 hours) at 09/13/17 0818Last data filed at 09/13/17 0736 Gross per 24 hourIntake 1360 mlOutput 660 mlNet 700 mlSerum creatinine: 0.67 mg/dL 09/13/17 0315Estimated creatinine clearance: 99.7 mL/minAssessment/Plan1) A fib with RVRDiltiazem bolus and infusions restarted.Continue to monitor BP to assess for hypotension.Will give 1 dose of lopressor 5 mgNot on anticoagulation due to GI bleedConsult EP.2) Pancreatic mass and GOO:Surgery followingThey concluded that the patient's 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 Surgery planned for next week.Currently NPOFollow up CT chest and abdomen results3) Recent upper GI bleed s/p angio-embolization of gastroduodenal andgastroepiploic arteries in June 20174) Hypotension: monitor blood pressure5) Chronic normocytic anemiaJorje Avalos MD09/13/1810:50 AM Remov ed attestation signed by Noe Quick at 09/13/2017 12:40 PM (removed byNoe Quick at 09/13/2017 12:43 PM)[facility] STAFF PHYSICIAN NOTE OF PERSONAL INVOLVEMENT IN CAREI have reviewed the progress note obtained and documented by the resident and Ipersonally participated in the rivera components. I have discussed the case andmanagement of the patient's care. The following comments revise or confirmrelevant rivera components of the note.Interval history:Patient is resting comfortably in bed without any current complaints.He has a NG in place to LIWS, but it does not appear to be decompressing hisstomach. Dr. Foster is evaluating him for this.Exam:RRRClear to auscultation without wheezing bilaterally anteriorly.Minimal bowel sounds, soft, nontender, significantly distended.No pedal edema bilaterally.Poor turgor, but dry, intact skin.Data:Reviewed as detailed below.IMPRESSION:ACTIVE PROBLEM LISTShock (Hcc)Copd (Chronic Obstructive Pulmonary Disease) (Hcc)HypertensionHyperlipidem iaGI BleedingAcute Respiratory Failure With Hypoxia and Hypercapnia (Hcc)Acute Blood Loss AnemiaHemorrhagic Shock (Hcc)HypophosphatemiaAtrial Fibrillation With Rapid Ventricular Response (Hcc)Severe Protein-Calorie Malnutrition (Hcc)Atrial Fibrillation With Rvr (Hcc)Pancreatic tumorPLAN:Currently rate controlled on diltiazem drip at 15 mg/hour after two boluses of20 mg diltiazem (40 mg total) which finally responded only after metoprolol 5mg IVP.Will consult Dr. Yung (EP) for for further evaluation and treatment of thepatient's atrial fibrillation which will be more challenging as enteralmedications will not be an option for some time.Continue NG tube to LIWS.Dr. Foster (General Surgery) is planning for resection of his pancreatic tumor.Place dual lumen PICC.Start TPN tomorrow.Continue supportive care.Continue ICU monitoring.This patient has a high probability of sudden, clinically significantdeterioration, which requires the highest level of physician preparedness tointervene urgently. I managed/supervised life or organ supportinginterventions that required frequent physician assessment. I devoted my fullattention to the direct care of this patient for the amount of time indicatedbelow. Time I spent with family or surrogate(s) is included only if thepatient was incapable of providing the necessary information or participatingin medical decision making. Time devoted to teaching and to any procedures Ibilled separately is not included.Patient/Family Updated: Patient, Cristina Jeffrey, was updated regarding thegoals of care, medical plan for the day, retail sales vitamin consultant recommendations, medicaldisposition and current medical condition/prognosis as and if clinicallyindicated. All questions and concerns were answered and addressed at thisjuncture.They were notified on September 13, 2017 at 08:20. The duration of the conversationwas 10-15 minutes.PROGNOSIS: GuardedCode status: Full Code.Discussed with Registered Nurse, Pharmacist and Residents while performingmultidisciplinary rounds.Critical Care Documentation:The patient has the following organ/system impairment(s):Atrial fibrillation with rapid ventricular responseTime spent providing critical care services: 40 minutes.SIGNATURE: Noe Quick [facility] RESPIRATORY INSTITUTEPAGER:[id number] of SERVICE: September 13, 2017TIME of SERVICE: 12:21 PM Emma Glass, [place], LD, RD 09/13/2017 12:40 PM SignedNUTRITION THERAPY INITIAL ASSESSMENTSERVICE DATE: 09/13/2017SERVICE TIME: 11:47 AMeval for TPN recommendationsRECOMMENDED MALNUTRITION DIAGNOSIS: SEVERE PROTEIN-CALORIE MALNUTRITION-ACUTEIn the context of Acute Illness or Injury based on:Unintentional Weight Loss: 1-2% over 1 weekInsufficient Energy Intake: less than or equal to 50% for greater than or equalto 5 daysSome mild muscle loss notedNUTRITION CARE PLAN:Problem, Etiology and Signs/Symptoms:Alternative nutrition route needed related to gastric outlet obstruction asevidenced by HPI, need for TPNIntervention:1) initiate TPN as clinically appropriate. (Line access?)TPN Rec: 107g AA, 1100kcals dextrose, 472kcals lipids, (2000kcals total)Coordination of Care:MICU Rounding teamMonitor and Evaluation:Goal: Meet >75% of estimated needsMonitor fluid/electrolyte balanceMonitor labs, I/Os, vital signs, weightDischarge Nutrition Recommendations:To be determinedPer HPI: Mr. Jeffrey is a 72 year old male who presented to the ED after beingsent from endoscopy. He was scheduled for EGD and the procedure was notperformed because patient went into a-fib with RVR. He is not onanticoagulation. He was recently admitted for UGI bleed that required branchesof the GDA and gastroepiploic artery embolized on 06/23/2017. He had 2 EGDs thatadmission with clips/epi administration. He has recurrent gastric ulcers forthe majority of his life according to patient. He has had around 5-8 lb weightloss over the past few months. He has low grade intermittent epigastric pain.He has been vomiting for the past day. No fever/chill, SOB, dizziness. He ishaving bowel function and has been passing gas.Active Hospital Problems Diagnosis Date Noted- Atrial fibrillation with RVR ([facility]) 09/12/2017PAST MEDICAL HISTORYDiagnosis Date- Afib ([facility])- CHF (congestive heart failure) ([facility])- COPD (chronic obstructive pulmonary disease) ([facility])- HypertensionPresent Diet Order: NPOEnteral Access: NG, PICC insertion today?Nutritional Intake Prior to Admission: 0-25% estimated energy needs over thepast 2 week(s)Patient endorses 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 Patient states he is careful to eatfoods that he knows he can chew well.Abdominal Exam: abdomen is firm and distendedIs the patient having any pain that is interfering with oral/enteral intake? NoANTHROPOMETRICSHeight: 175.3 cm (5' 9.02")Admission Weight: 86.2 kg (190 lb)Current Weight: 80.9 kg (178 lb 5.6 oz)Body mass index is 26.33 kg/m?. normal for ageWeight has decreased by 5.8 kg over 2- 3 months representing 7 % weight change.Last Wt09/12/17 : 80.9 kg (178 lb 5.6 oz)09/12/17 : 81.6 kg (180 lb)07/26/17 : 81.6 kg (180 lb)07/02/17 : 86.7 kg (191 lb 1.6 oz)[place] Body Weight: 71kgResting Metabolic Rate: 1554Estimated kilocalorie needs: 8816-5313 kilocalories determined by 25-30 kcal/kgEstimated protein needs: 78-107 grams determined by 1.1-1.5 g/kg [place] weightEstimated fluid needs: 1800 milliliters based on 1 mL per kcalNUTRITION FOCUSED PHYSICAL EXAM:Subcutaneous Fat LossOrbital Unable to determine at this timeTriceps No fat lossMid-axillary at the iliac crest Unable to determine at this timeMuscle Loss Locations:Temporalis MildPectoralis Unable to determine at this timeDeltoids No muscle lossInterosseous No muscle lossLatissimus dorsi, trapezius Unable to determine at this timeQuadriceps No muscle lossGastrocnemius Unable to determine at this timePotential micronutrient deficiency revealed in: Teeth - missingEdema: NoAscites: No-abdomen is distendedAssessment of Functional Status: Unable to determine at this timeTemperature Max in 24 hours: Temp (24hrs), Av.2 ?C (97.1 ?F), Min:36 ?C(96.8 ?F), Max:36.3 ?C (97.3 ?F) BP 96/58 Pulse 108 Temp 36.2 ?C (97.2 ?F) (Axillary) Resp 23 Ht175.3 cm (5' 9.02") Wt 80.9 kg (178 lb 5.6 oz) SpO2 96% BMI 26.33 kg/m?Recent Labs 5 GLUC 90 92BUN 20* 34*CREAT 0.67 0.84NA 135* 131*K 4.1 3.3*CHLOR 106 93*CO2 27 30ALB -- 3.2*HB 9.1* 9.9*HCT 28.4* 30.0*WBC 7.97 9.36*MG -- 1.8Potential Signs of Inflammation: leukocytosis-on admission, hypoalbuminemia,tachycardia and gastrinoma tumor-surgery next week?Intake/Output 09/11/17 0700 - 09/12/17 0659 09/12/17 0700 - 09/13/17 0659 09/13/17 0700 -09/14/17 0659 Intake (ml) 0 1330 357 Output (ml) 0 450 840 Net (ml) 0 880 -483Pressure Injury 09/12/17 2342 Coccyx (Active)Stage Injury 1 09/13/2017 7:36 AMMedical Device Related Pressure Injury No 09/13/2017 7:36 AMDressing Status Clean, Dry AND Intact 09/13/2017 7:36 AMFrequency of Dressing Change Every 3 Days 09/13/2017 7:36 AMDressing Change Due 09/15/17 09/13/2017 7:36 AMDressing/Treatment Type Foam-Adhesive 09/13/2017 7:36 AMDrainage Description None 09/13/2017 7:36 AMDrainage Amount None 09/13/2017 7:36 AMOdor No 09/13/2017 7:36 AMWound Surface Color [place] 09/13/2017 7:36 AMSurrounding Skin Intact 09/12/2017 10:53 PMNumber of days: 0MNT Billing Type: Initial Assess/15 min 3 unitsSIGNATURE: Monty Glass RD, LD PATIENT NAME: Cristina JeffreyDATE: September 13, 2017 : 11:47 AM PAGER: [phone] Epperson APRN.CNS 09/13/2017 3:21 PM SignedINITIAL CONSULT GASTROENTEROLOGYSERVICE DATE: 09/13/2017SERVICE TIME: 3:02 PMConsulting Service: Critical Care, General SurgeryOpinion/advice regarding: GI bleed and gastric outlet obstructionSubjectiveHPI: This is a 72 year old male who presents with atrial fibrillation with RVRthat was found during the pre-operative assessment prior to EGD. The EGD wascancelled and he was sent to the ED and subsequently admitted for evaluation. Hehad 2 EGD's and an IR procedure earlier this year for evaluation of melena andanemia. EGD on Jun 21 showed Multiple antral ulcers with 1 large ulcer with avisible vessel at its base asthe source of bleeding and a large ulcer at the pre-pyloric region. Repeat EGDon June 23 showed NG tube induced mucosal tear at the GE junction and multipleulcers at the distal antrum and pyloric channel with significant deformity. Thepreviously Endoclipped and epinephrine injected ulcer was not bleeding and?visible vessel has resolved, but there was a large pyloric channel ulcer withdeformity and stenosis with intermittent?oozing of blood diffusely without anyvisible vessel. He then went to IR on June 23 for embolization of activeextravasation from branch vessels arising from the gastroduodenal andgastroepiploic arteries. The EGD scheduled yesterday was for surveillance orprevious ulcers. CT abdomen/pelvis done yesterday showed findings of gastricoutlet obstruction. GI was consulted for evaluation of gastric outletobstruction and to reschedule the EGD that was cancelled yesterday.PAST MEDICAL HISTORYDiagnosis Date- Afib (HCC)- CHF (congestive heart failure) (HCC)- COPD (chronic obstructive pulmonary disease) (HCC)- HypertensionPAST SURGICAL HISTORYProcedure Laterality Date- EGD 06/21/2017 Multiple antral ulcers with 1 large ulcer with a visible vessel at its base asthe source of bleeding. A large ulcer at the pre-pyloric region- EGD 06/23/2017 NG tube induced mucosal tear at GE junction, without bleeding. Multiple ulcersat distal antrum and pyloric channel with significant deformity. PreviouslyEndoclipped and epinephrine injected ulcer is not bleeding and visible vesselhas resolved. 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 Normalduodenum- TUMOR REMOVAL (SPECIFY LOCATION) HX breast, childhoodNo family history on file.Social HistorySubstance Use Topics- Smoking status: Never Smoker- Smokeless tobacco: Never Used- Alcohol use No Comment: quit 6 months agoMEDICATIONS:Prior to Admission Medications:ergocalciferol, vitamin D2, (VITAMIN D) 50,000 unit capsule Take 50,000 Units bymouth once each week.potassium chloride 20 mEq/kg/dose once daily.carvedilol (COREG) 12.5 mg tabletlisinopril (ZESTRIL, PRINIVIL) 20 mg tabletpredniSONE (DELTASONE) 10 mg tabletmetoprolol tartrate, short acting, (LOPRESSOR) 50 mg tablet Take 1 tablet bymouth every 8 hours.diltiazem CD (CARDIZEM CD, CARTIA XT) 240 mg 24 hr capsule Take 1 capsule bymouth once daily.pantoprazole DR (PROTONIX) 40 mg tablet Take 1 tablet by mouth twice daily.Bismuth Subsalicylate (PEPTO-BISMOL) 262 mg tab Take 1 tablet by mouth twicedaily for 14 days.Vit A,C,C-Thic-Gmbbcg (PRESERVISION AREDS) 14,320-226-200 zvbf-uw-uyia cap Take1 capsule by mouth twice daily.albuterol (PROVENTIL) 2.5 mg /3 mL (0.083 %) nebulizer solution Use 2.5 mg vianebulizer every 4 hours as needed for Wheezing/Shortness of Breath.pravastatin (PRAVACHOL) 40 mg tablet Take 40 mg by mouth once daily.budesonide-formoterol (SYMBICORT) 160-4.5 mcg/actuation inhaler Inhale 1 Puff asinstructed twice daily.guaiFENesin (MUCINEX) 600 mg 12 hr tablet Take 1,200 mg by mouth twice daily.furosemide (LASIX) 40 mg tablet Take 40 mg by mouth twice daily.Current hospital medications:ondansetron (PF) 4 mg injection (ZOFRAN) 4 mg INTRAVENOUS q 6 H PRNNaCl 0.9% iv infusion 100 mL/hr INTRAVENOUS CONTINUOUSdilTIAZem 100 mg in D5W 100 mL ADD-Arvilla (CARDIZEM) 5-15 mg/hr INTRAVENOUSCONTINUOUSlidocain e 10 mg/mL (1 %) 10-20 mg injection (XYLOCAINE) 1-2 mL INTRADERMAL ONCE0.9% NaCl 10 mL 10 mL INTRAVENOUS q 12 H0.9% NaCl 20 mL 20 mL INTRAVENOUS PRNiv contrast (radiology procedure) INTRAVENOUS DIRECTED PRNiv contrast (radiology procedure) INTRAVENOUS DIRECTED PRNpotassium chloride 80-120 mEq oral liquid 80-120 mEq ORAL/FEEDING TUBE PRNpotassium chloride iv piggyback 20 mEq in sterile water 100 mL 20 mEqINTRAVENOUS PRNmagnesium sulfate in water 2 g in sterile water 50 ml 2 g INTRAVENOUS PRNsodium phosphate 45 mmol in NaCl 0.9% 250 mL 45 mmol INTRAVENOUS PRNcalcium gluconate 4 g in NaCl 0.9% 250 mL 4 g INTRAVENOUS PRNenoxaparin 40 mg injection (LOVENOX) 40 mg SUBCUTANEOUS DAILYpantoprazole 40 mg injection (PROTONIX) 40 mg INTRAVENOUS DAILY (6 AM)ALLERGIESNo Known AllergiesGI SPECIFIC REVIEW OF SYSTEMS:Positive for abdominal pain, nausea, vomiting,Negative for heartburn, acid refluxNegative for decreased appetite, decreased oral intakeNegative for change in weightNo alteration in bowel habitsOTHER ROS:Negative for fever, night sweats, sleep problems, mood or depression.PAIN ASSESSMENT: CURRENTLY HAVING PAIN; Generalized abdominal painGENERAL: No weight loss, malaise or feversHEENT: Negative for frequent or significant headaches, No changes in hearing orvision, no nose bleeds or other nasal problemsNECK: Negative for lumps, goiter, pain and significant neck swellingRESPIRATORY: Shortness of breathCARDIOVASCULAR: Negative for chest pain, leg swelling, hypertension, CHF orpalpitationsGU: No history of dysuria, frequency or incontinenceMUSCULOSKELETAL: Negative for joint pain or swelling, back pain or muscle painSKIN: Negative for lesions, rash, and itchingPSYCH: Negative for sleep disturbance, mood disorder and recent psychosocialstressorsHEMATOLO GY/LYMPHOLOGY: Negative for prolonged bleeding, bruising easily orswollen nodesENDOCRINE: Negative for cold or heat intolerance, polyuria, polydipsia andgoiterNEURO: No history of headaches, syncope, paralysis, seizures or tremorsObjectivePHYSICAL EXAM:BP 103/68 Pulse 117 Temp 36 ?C (96.8 ?F) (Axillary) Resp 26 Ht 175.3cm (5' 9.02") Wt 80.9 kg (178 lb 5.6 oz) SpO2 97% BMI 26.33 kg/m?GENERAL- AAO x 3, no distress. NG in place with dark drainage.HEENT: Dry mucus membranes. Tongue midlineLUNGS: Clear to auscultation bilaterallyCARDIAC: S1, S2 heard. Heart rate tachycardic and irregular.ABDOMEN: Softly distended with diffuse minimal tenderness without guarding orrigidity, normal bowel soundsEXTREMITIES: No pedal edemaDATA:Diagnostic Tests Reviewed for Today's Visit:Most recent labs and imaging results.CBC, Coags, BMP, Mg, PhosRecent Labs 09/12/1813WBC 7.97 9.36*HB 9.1* 9.9*HCT 28.4* 30.0*PLT 212 258INR -- 1.13NA 135* 131*K 4.1 3.3*CHLOR 106 93*CO2 27 30BUN 20* 34*CREAT 0.67 0.84GLUC 90 92CA 7.8* 9.3MG -- 1.8CSF AND DilantinLiver Function, Amylase, AND LipaseRecent Labs 09/12/1813TPROT -- 6.2*ALB -- 3.2*ALT -- 21AST -- 16ALKPHOS -- 51TBILI -- 0.4LIPASE 639* --Cardiac EnzymesABGsImpression/Recomme ndationsPancreatic mass with suspected gastric outlet obstruction - currently has NG- General surgery following. CT scans pending. Considering surgeryHistory of Gastric ulcers and pyloric channel ulcers- s/p endoclip, EPIinjection and IR embolization. Was scheduled for repeat EGD yesterday - butprocedure was cancelled due to Afib-RVR- Reschedule EGD. Dr. Dominguez to determine timing due to continued atrialfibrillationGI will continue to followThank you for the consultSIGNATURE: Toshia Epperson APRN.COOK APPRENTICE PATIENT NAME: Cristina JeffreyDATE: September 13, 2017 : 3:02 PM PAGER/CONTACT #: [phone] Anderson, RN, RN 09/13/2017 3:15 PM SignedCARE MANAGEMENT PROGRESS NOTESERVICE DATE: 09/13/2017SERVICE TIME: 1512 LOS: 1 dayPatient unavailable (undergoing a bedside procedure). Will attempt to assesstomorrow.SIGNATURE: Zoë Alexander RN PATIENT NAME: Cristina JeffreyDATE: September 13, 2017 : 3:12 PM CONTACT #: [id number] Traylor RN, RN 09/13/2017 3:47 PM SignedPATIENT EDUCATION TOPIC: PROCEDURE / SURGERY: Procedure/Surgery: PICCInsertionPATIENT NAME: Cristina JeffreyMRN: [id number] LOCATION: [place] [address]/[place] [address]*READ INESS TO LEARNCOGNITIVE ABILITY: Alert and orientedMOTIVATION TO LEARN: InterestedFAMILY SUPPORT: Unable to assess - Family not presentINSTRUCTION PROVIDED TO: PatientPATIENT LEARNS BEST BY: Written Instruction - Hand-outsVerbal InstructionFACTORS AFFECTING LEARNING: NonePHYSICAL LIMITATIONS AFFECTING LEARNING: NoneLEARNING RESPONSEDIAGNOSIS: ADULT: TPNPATIENT/FAMILY RESPONSE: Verbalizes understanding of: [id number] rrect actions to take to reduce post procedure complicationsPRE-PROCEDURE INSTRUCTIONS-Correct action to take to follow pre-procedureinstructionsMETH OD OF INSTRUCTION: Verbal instructionFOLLOW-UP PLAN: Complete - No need for follow-upINSTRUCTIONAL AIDS USED: Picc Line BookSUPPLEMENTAL MATERIAL PROVIDED TO PATIENT: Catheter-Associated bloodstreaminfection sheetREFERRAL (RECOMMENDATION): NoneElectronically Signed By: Bimal Lenug RN, RN 09/13/2017 3:52 PM IncompletePICC NURSE INSERTION NOTEDATE OF PROCEDURE: September 13, 2017TIME OF PROCEDURE: 1500ORDERING PHYSICIAN: Dr. MirelesINFORMED CONSENT: Obtained per hospital policy.INDICATION FOR LINE PLACEMENT: TPNCONDITION OF LINE PLACEMENT: SterilePRIMARY PROCEDURALIST: SIA LeungSISTANT: Estefani Alex RNPRE-PROCEDURE REVIEWALLERGIESNo Known AllergiesKnown History of Venous Thrombosis: NoKnown History of Permanent Pacemaker or Automated Implanted Cardiac Device: NoPrevious Breast Surgery of Lymph Node Dissection: NoHistory of Renal Disease with Arterio-Venous Fistula in Place or Planned: NoUltrasound Assessment Complete: YesPROCEDURE NARRATIVESAFE PRACTICEHand Hygiene per Hospital Policy: YesSkin Preparation Unit Dose Applicator Used: Chloraprep (CHG + alcohol), allowedto dry.Procedure Surface Cleansed with Antimicrobial Wipes: YesBarriers Used by Proceduralist and all Assisting Personnel: YesUNIVERSAL PROTOCOL / SAFETY CHECKLISTProcedure to be performed: PICC InsertionSign in Communication: CompletedTime Out: Team Confirms the Correct Patient, Correct Procedure, Correct Siteand Site Marking, Correct Position (if applicable), Prep and Dry Time (ifapplicable). Time: 1500Affirmation of Time Out: N/ASign Out Discussion: Completed, Reported off to Jeet SEWELL that CXR ordered fortip confirmation and picc not ok to use.Jayne Traylor RNCATHETER PLACEMENTBrand: Arrow/Chloragard Lot: [id number] of Lumens: 2Type of PICC: ChloragardLumen Size: 5.5 FrenchPLACEMENT TECHNIQUELidocaine: Yes. Strength: 1% Volume 0.1 mlModified Seldinger Technique Used to Place Line via the Right BasilicUltrasound Guidance: YesNumber of Attempts at Insertion: 1Internal Length: 44 cm External Length: 0 cm Trim Length: 44 cmMid-Arm Circumference Above Insertion Site: 29 centimetersPost Insertion Pain Level Related to Procedure: 0Action Taken to Address Pain: None neededVerified Placement: Blood return, Ultrasound and Chest X-ray ordered and pendingLine was Flushed with 20 cc normal salineLine Secured with: Securement deviceSterile Dressing Applied and Dated: YesSterile Caps on all Ports Prior to Leaving Procedure Area: YesSPECIMENS: NoneCOMPLICATIONS: NonePatient Education Materials: Placed in chart [facility] General Central Line Insertion Checklist utilizedduring this procedureQUESTIONS or PROBLEMS: Call [id number]: Jayne Traylor RN PATIENT NAME: Cristina JeffreyDATE: September 13, 2017 : 3:47 PM PAGER/CONTACT PHONE:Neema Maher MD 09/13/2017 4:01 PM [id number] male with history of paroxysmal atrial fibrillation, notanticoagulated because of recurrent GI bleed, admitted with suspected GI bleed,in atrial fibrillation with RVR. Currently on rate control strategy withintravenous diltiazem, receiving digoxin load as well. Agree with above, fullconsult.Vicki Breaux DO 09/14/2017 8:14 AM Attested -Attestation signed by Venus Foster at 09/14/2017 2:25 PMAttending NoteI personally saw and examined the patient. I reviewed the resident's note. Ana Mariaee with the resident's assessment and plan with the following revisionsand/or additions: await EGD. GOO may be due to ulcer rather than tumorSignature: Venus Foster, MDDate: 09/14/2017Time: 2:25 PM Elect verito Surgery Progress NoteSERVICE DATE: 09/14/2017SUBJECTIVE:Pt doing okay. No N/V. NG tube in place.DIET NPOOBJECTIVE:Temp (24hrs), Av.1 ?C (97 ?F), Min:35.5 ?C (95.9 ?F), Max:36.5 ?C (97.7 ?F)BP 116/80 Pulse 106 Temp (!) 35.5 ?C (95.9 ?F) Resp 23 Ht 175.3 cm(5' 9.02") Wt 84.3 kg (185 lb 13.6 oz) SpO2 98% BMI 27.43 kg/m?O2 Therapy: Nasal CannulaDate 09/13/17 0700 - 09/14/17 0659 09/14/17 0700 - 09/15/17 0659Shift 6614-2443 9895-9257 7918-8917 24 Hour Total 1714-3077 5786-1658 2300-187317 Hour TotalINTAKE PO 0 0 0 0 PO 0 0 0 0 IV 569 830.5 1287 2686.5 IVPB 250 250 NS 0.9% 472 206 233 9673 Calcium IVPB 250 250 Diltiazem Volume 97 105.5 32 234.5 Irrigants 60 60 Irrigant/Flush Amount In ([REMOVED] GI Feed/Drain 09/12/17 0700 NasogastricRight 09/13/17 1321) 60 60 Shift Total 629 830.5 1287 2746.5OUTPUT Urine 1200 765 594 4007 Void (ml) 370 370 Tube Output ( Indwelling Urinary Catheter 09/13/17 1145 Miranda 16 Fr) 208147 840 2425 Tubes 770 100 100 970 Output ([REMOVED] GI Feed/Drain 09/12/17 0700 Nasogastric Right 321) 20 0 20 Output (GI Feed/Drain 09/13/17 1322 Nasogastric Right Naris 18 Fr) 750 121782 950 # of BMs Number of BMs 0 x 0 x 0 x Shift Total 1970 855 940 3765Weight (kg) 80.9 80.9 84.3 84.3 84.3 84.3 84.3 84.3Current Facility-Administered Medications:ondansetron (PF) 4 mg injection (ZOFRAN) 4 mg INTRAVENOUS q 6 H PRNNaCl 0.9% iv infusion 100 mL/hr INTRAVENOUS CONTINUOUSdilTIAZem 100 mg in D5W 100 mL ADD-Arvilla (CARDIZEM) 5-15 mg/hr INTRAVENOUSCONTINUOUS0.9% NaCl 10 mL 10 mL INTRAVENOUS q 12 H0.9% NaCl 20 mL 20 mL INTRAVENOUS PRNbenzocaine-menthol 1 Lozenge (CEPACOL) 1 Lozenge MUCOUS MEMBRANE (TOPICAL MOUTHAND THROAT) q 2 H PRNbenzocaine 20 % mucosal spray (HURRICAINE ONE) MUCOUS MEMBRANE QID PRNiv contrast (radiology procedure) INTRAVENOUS DIRECTED PRNpotassium chloride 80-120 mEq oral liquid 80-120 mEq ORAL/FEEDING TUBE PRNpotassium chloride iv piggyback 20 mEq in sterile water 100 mL 20 mEqINTRAVENOUS PRNmagnesium sulfate in water 2 g in sterile water 50 ml 2 g INTRAVENOUS PRNsodium phosphate 45 mmol in NaCl 0.9% 250 mL 45 mmol INTRAVENOUS PRNcalcium gluconate 4 g in NaCl 0.9% 250 mL 4 g INTRAVENOUS PRNenoxaparin 40 mg injection (LOVENOX) 40 mg SUBCUTANEOUS DAILYpantoprazole 40 mg injection (PROTONIX) 40 mg INTRAVENOUS DAILY (6 AM)Recent Labs 0 426NA 137 135* 131*K 3.5 4.1 3.3*CHLOR 108* 106 93*CO2 23 27 30BUN 10 20* 34*CREAT 0.52* 0.67 0.84GLUC 72 90 92ANION 10 6* 11CA 7.0* 7.8* 9.3MG 2.1 -- 1.8P 1.3* -- --ALB -- -- 3.2*AST -- -- 16ALT -- -- 21ALKPHOS -- -- 51TBILI -- -- 0.4WBC 7.20 7.97 9.36*HB 8.2* 9.1* 9.9*HCT 26.1* 28.4* 30.0*PLT 210 212 258INR -- -- 1.13CT CHEST/ABD/PELVIS (09/13/17):IMPRESSION:?High-gr cassandra gastric outlet obstruction.?Fluid density mass or masses within the head and uncinate of the pancreas. ?Differential considerations include pseudocysts, cystic neoplasm and intraductalpapillary mucinous neoplasm. ?Alternatively, findings could potentiallyrepresentdilated pancreatic duct.?Several indeterminate nodular densities in the pancreaticoduodenal region withassociated infiltration of fat and periduodenal fluid.?Innumerable pulmonary nodules, predominantly calcified, but also noncalcifiedscattered throughout both lungs. ?The majority of pulmonary nodules measure lessthan 4 mm in size. ?On the right, there are centrilobular nodules andgroundglassopacity within the medial lower lobe possibly inflammatory or infectious. ?Thereis small volume consolidation within the posterior costophrenic angle, possibleatelectasis or pneumonia. ?On the left, there is small volume consolidation inprofile with the inferior major fissure at the lung base suggesting atelectasis.There is an indeterminate ill-defined subpleural nodule redemonstrated withintheposterior lower lobe. ?There is small volume consolidation within the posteriorcostophrenic angle, possible atelectasis or pneumonia, with very small pleuraleffusion.?Contracted gallbladder with multiple radiopaque gallstones. ?There is mildgallbladder wall thickening and infiltration of pericholecystic fat. ?Correlateclinically with clinical concern for acute gallstones.?Dilated distal thoracic aortic arch-proximal descending thoracic aorta measuring4?cm in diameter. ?The descending thoracic aorta mildly tapers in diameterdistally.?Hepatic cysts.?1 cm hypervascular nodule within the medial spleen.?Bilateral renal cortical cystic lesions, the joint too small to characterize byCT?criteria.Exam:GENERAL: No distress, AlertNEURO: [id number]: normocephalic, atraumaticLUNGS: Unlabored breathingCARDIAC: Regular rate and rhythm as aboveABDOMEN: soft, nondistended, no ttpEXTREMITIES: JERONIMO, No deformities, No edemaSKIN: Skin color, texture, turgor normal, No rashes or lesionsASSESSMENT AND PLAN:Active Hospital Problems Diagnosis Date Noted- Atrial fibrillation with RVR (HCC) 09/12/2017- Severe protein-calorie malnutrition (HCC) 07/03/201772 YOM with likely pancreatic head mass and GOO. Sent to ED from endoscopy forA-fib/RVR. Concerning for possible gastrinoma vs adenoCA of pancreas. H/oantral ulcers AND hpylori?- A-fib mgnt per medicine- protonix- NGT to LIWS- CEA= 1.7, CA 19 9= 8.1- f/u gastrin- continue PPI- GI consulted to repeat EGD- per consult, will scope, unsure of timing?Vicki Breaux, DOGeneral Surgery PGY-4September 14, 2017 6:21 AMPager: [phone] N Patel, MD 09/14/2017 11:30 AM Attested -Attestation signed by Noe Quick at 09/14/2017 12:27 [facility]IAN NOTE OF PERSONAL INVOLVEMENT IN CAREI have reviewed the progress note obtained and documented by the resident and Ipersonally participated in the rivera components. I have discussed the case andmanagement of the patient's care. The following comments revise or confirmrelevant rivera components of the note.Interval history:Patient is resting comfortably in bed without any current complaints.Exam:Irregularly irregularClear to auscultation without wheezing bilaterally anteriorly.Minimal bowel sounds, soft, nontender, significantly distended.No pedal edema bilaterally.Poor turgor, but dry, intact skin.Data:Reviewed as detailed below.IMPRESSION:ACTIVE PROBLEM LISTShock (Hcc)Copd (Chronic Obstructive Pulmonary Disease) (Hcc)HypertensionHyperlipidem iaGI BleedingAcute Respiratory Failure With Hypoxia and Hypercapnia (Hcc)Acute Blood Loss AnemiaHemorrhagic Shock (Hcc)HypophosphatemiaAtrial Fibrillation With Rapid Ventricular Response (Hcc)Severe Protein-Calorie Malnutrition (Hcc)Atrial Fibrillation With Rvr (Hcc)HematemesisGastric Outlet ObstructionPancreatic tumorPLAN:Currently mostly rate controlled on diltiazem drip at 7.5 mg/hour. Will givediltiazem 20 mg bolus followed by increasing drip to 10 mg/hour for optimalrate control.EP is following for further evaluation and treatment of the patient's atrialfibrillation which will be more challenging as enteral medications will not vallecillo option for some time.Continue NG tube to LIWS.Dr. Foster (General Surgery) is planning for resection of his pancreatic tumornext week.Dual lumen PICC has been placed.Start TPN later today.Continue supportive care.To cardiac telemetry later today if a bed is available.This patient has a high probability of sudden, clinically significantdeterioration, which requires the highest level of physician preparedness tointervene urgently. I managed/supervised life or organ supportinginterventions that required frequent physician assessment. I devoted my fullattention to the direct care of this patient for the amount of time indicatedbelow. Time I spent with family or surrogate(s) is included only if thepatient was incapable of providing the necessary information or participatingin medical decision making. Time devoted to teaching and to any procedures Ibilled separately is not included.Patient/Family Updated: Patient, Cristina Jeffrey, was updated regarding thegoals of care, medical plan for the day, retail sales vitamin consultant recommendations, medicaldisposition and current medical condition/prognosis as and if clinicallyindicated. All questions and concerns wereanswered and addressed at this juncture.He was notified on September 14, 2017 at 08:10. The duration of the conversation was5-10 minutes.PROGNOSIS: GuardedCode status: Full Code.Discussed with Registered Nurse, Pharmacist and Residents while performingmultidisciplinary rounds.Critical Care Documentation:The patient has the following organ/system impairment(s):Atrial fibrillation with rapid ventricular responseTime spent providing critical care services: 20 minutes.SIGNATURE: Noe Quick [facility] RESPIRATORY INSTITUTEPAGER:[id number] of SERVICE: September 14, 2017TIME of SERVICE: 12:22 PM Medic al Intensive Care Progress NoteMay 2017Patient Name: Cristina Jeffrey [id number] Date: 09/12/2017 Length of Stay: 2Primary Service: Medical Intensive CareCase background:72 year old white male with a sig PMH of A fib (not anti-coag), CHF, COPD,previous GI bleed presents with Afib with RVR found at?pre-surg for endoscopyfor evaluation of gastric ulcers. HR was in 170s. The patient reported worseningheartburn, and decreased appetite as a result of this. He denied SOB,CP,palpitations. He was treated with IV esmolol while at endoscopy, and withdiltiazem drip in the ED. The physician did not proceed with the endoscopy dueto A fib with RVR. Patient continued to reports abd bloating and distention butno pain.?The patient was transferred to ICU for management of A Fib w/ RVR and gastricoutlet obstruction due to a pancreatic mass.?NG tube in place for gastric outlet obstruction. Suction continues to show noupper GI bleed. The patient is on 2L Oxygen. Right sided PICC line placedyestereday. Confirmed with chest xray that showed tip is near caval arterialjunction. Diltiazem bolus and infusions restarted yesterday with continuousmonitoring of hypotension. Lopressor 5mg dose given yesterday.Interval History for 09/14/17:No adverse events overnight. Patient seen and examined in the AM. He continuesto report hunger. He reports improved dyspnea and heartburn. He denies anyfevers, chills, chest pain, nausea, vomiting, diarrhea, abdominal pain, dysuria,hematuria, lightheadedness, limb swelling.Current Home Medicationsergocalciferol, vitamin D2, (VITAMIN D) 50,000 unit capsule Take 50,000 Units bymouth once each week.potassium chloride 20 mEq/kg/dose once daily.carvedilol (COREG) 12.5 mg tabletlisinopril (ZESTRIL, PRINIVIL) 20 mg tabletpredniSONE (DELTASONE) 10 mg tabletmetoprolol tartrate, short acting, (LOPRESSOR) 50 mg tablet Take 1 tablet bymouth every 8 hours.diltiazem CD (CARDIZEM CD, CARTIA XT) 240 mg 24 hr capsule Take 1 capsule bymouth once daily.pantoprazole DR (PROTONIX) 40 mg tablet Take 1 tablet by mouth twice daily.Bismuth Subsalicylate (PEPTO-BISMOL) 262 mg tab Take 1 tablet by mouth twicedaily for 14 days.Vit A,C,C-Splc-Ognzcc (PRESERVISION AREDS) 14,320-226-200 qkyl-hy-rroh cap Take1 capsule by mouth twice daily.albuterol (PROVENTIL) 2.5 mg /3 mL (0.083 %) nebulizer solution Use 2.5 mg vianebulizer every 4 hours as needed for Wheezing/Shortness of Breath.pravastatin (PRAVACHOL) 40 mg tablet Take 40 mg by mouth once daily.budesonide-formoterol (SYMBICORT) 160-4.5 mcg/actuation inhaler Inhale 1 Puff asinstructed twice daily.guaiFENesin (MUCINEX) 600 mg 12 hr tablet Take 1,200 mg by mouth twice daily.furosemide (LASIX) 40 mg tablet Take 40 mg by mouth twice daily.ObjectivePresent Condition: 09/14/18050 730BP: 95/68 116/80 99/69 124/65Pulse: 102 106 99 96Resp: 16Temp: 36 ?C (96.8 ?F)TempSrc: AxillarySpO2: 96% 98% 96% 98%Weight:Height:PHYSICAL EXAMINATION: Performed with findings detailed below on 09/14/17Constitutional: He is oriented to person, place, and time. He appearswell-developed?and well-nourished. No distress.HENT:Head: Normocephalic?and atraumatic.Mouth/Throat: Oropharynx is clear and moist.Eyes: EOM?are normal. Pupils are equal, round, and reactive to light.Neck: Normal range of motion. No tracheal deviation?present.Cardiovascu lar: Normal heart sounds?and intact distal pulses. An irregularlyirregular rhythm present. Tachycardia?present. Heart ranges from 105-125 bpm.Pulmonary/Chest: Effort normal?and breath sounds normal. Tachypnea noted. Norespiratory distress.Abdominal: Firm. Distention noted. Bowel sounds are normal. There is notenderness with palpation. There is no rebound or guarding noted.Musculoskeletal: Normal range of motion. He exhibits no edema?or deformity.Neurological: He is alert?and oriented to person, place, and time. He has normalreflexes. No cranial nerve deficit.Skin: Skin is warm?and dry.Psychiatric: He has a normal mood and affect. His behavior is normal.Judgment?normal.Curren t Facility-Administered Medications:ondansetron (PF) 4 mg injection (ZOFRAN) 4 mg INTRAVENOUS q 6 H PRN Annel(Res) [place] 4 mg at 09/13/17 0013NaCl 0.9% iv infusion 100 mL/hr INTRAVENOUS CONTINUOUS Safal N (Res) Avalos LastRate: 100 mL/hr at 09/14/17 0351 100 mL/hr at 09/14/17 0351dilTIAZem 100 mg in D5W 100 mL ADD-Arvilla (CARDIZEM) 5-15 mg/hr INTRAVENOUSCONTINUOUS Safal N (Res) Avalos Last Rate: 5 mL/hr at 09/14/17 0730 5 mg/hr at09/14/17 13711.9% NaCl 10 mL 10 mL INTRAVENOUS q 12 H Safal N (Res) Patel0.9% NaCl 20 mL 20 mL INTRAVENOUS PRN Safal N (Res) Patelbenzocaine-menthol 1 Lozenge (CEPACOL) 1 Lozenge MUCOUS MEMBRANE (TOPICAL MOUTHAND THROAT) q 2 H PRN Ravkiran (Res) Ritesh 1 Lozenge at 09/14/17 0351benzocaine 20 % mucosal spray (HURRICAINE ONE) MUCOUS MEMBRANE QID PRN AmitDiwakariv contrast (radiology procedure) INTRAVENOUS DIRECTED PRN Raul (Res)Guzowskipotassium chloride 80-120 mEq oral liquid 80-120 mEq ORAL/FEEDING TUBE PRNAlessandra (Res) Bouffordpotassium chloride iv piggyback 20 mEq in sterile water 100 mL 20 mEqINTRAVENOUS PRN Annel (Res) Bouffordmagnesium sulfate in water 2 g in sterile water 50 ml 2 g INTRAVENOUS PRNAlessandra (Res) [place] Last Rate: 25 mL/hr at 09/12/17 2320 2 g at 506185zamcsq phosphate 45 mmol in NaCl 0.9% 250 mL 45 mmol INTRAVENOUS PRN Annel(Res) [place] Last Rate: 41.67 mL/hr at 09/14/17 0548 45 mmol at 09/14/17 0548calcium gluconate 4 g in NaCl 0.9% 250 mL 4 g INTRAVENOUS PRN Annel (Res)[place] Last Rate: 62.5 mL/hr at 09/14/17 0502 4 g at 09/14/17 0502enoxaparin 40 mg injection (LOVENOX) 40 mg SUBCUTANEOUS DAILY Annel (Res)[place] 40 mg at 09/13/17 1133pantoprazole 40 mg injection (PROTONIX) 40 mg INTRAVENOUS DAILY (6 AM)Annel (Res) [place] 40 mg at 09/14/17 0502Notable morning labs:Labs:CBC:Recent Labs 340 426WBC 7.20 7.97 9.36*HB 8.2* 9.1* 9.9*HCT 26.1* 28.4* 30.0*PLT 210 212 258MCV 89.7 90.4 86.7COAG:Recent Labs INR 1.13BMP:Recent Labs 09/13/1802GLUC 72 90 92NA 137 135* 131*K 3.5 4.1 3.3*CHLOR 108* 106 93*CO2 23 27 30ANION 10 6* 11BUN 10 20* 34*CREAT 0.52* 0.67 0.84CHEM:Recent Labs 09/13/1802LB -- -- 3.2*TPROT -- -- 6.2*CA 7.0* 7.8* 9.3MG 2.1 -- 1.8HEPATIC:Recent Labs 09/12/1813LKPHOS -- 51ALT -- 21AST -- 16TBILI -- 0.4LIPASE 639* --GFR: > 60Phosphorus: 1.3Magnesium: 2.2UZ04-1: 8.1Intake/Output Summary (Last 24 hours) at 09/14/17 0758Last data filed at 09/14/17 0740 Gross per 24 hourIntake 2724.2 mlOutput 3875 mlNet -1150.8 mlSerum creatinine: 0.52 mg/dL (L) 09/14/17 0340Estimated creatinine clearance: 128.4 mL/min (A)Imaging:CT CHEST/ABD/PELVIS (09/13/17):IMPRESSION:?High-gr cassandra gastric outlet obstruction.?Fluid density mass or masses within the head and uncinate of the pancreas. ?Differential considerations include pseudocysts, cystic neoplasm and intraductalpapillary mucinous neoplasm. ?Alternatively, findings could potentiallyrepresentdilated pancreatic duct.?Several indeterminate nodular densities in the pancreaticoduodenal region withassociated infiltration of fat and periduodenal fluid.?Innumerable pulmonary nodules, predominantly calcified, but also noncalcifiedscattered throughout both lungs. ?The majority of pulmonary nodules measure lessthan 4 mm in size. ?On the right, there are centrilobular nodules andgroundglassopacity within the medial lower lobe possibly inflammatory or infectious. ?Thereis small volume consolidation within the posterior costophrenic angle, possibleatelectasis or pneumonia. ?On the left, there is small volume consolidation inprofile with the inferior major fissure at the lung base suggesting atelectasis.There is an indeterminate ill-defined subpleural nodule redemonstrated withintheposterior lower lobe. ?There is small volume consolidation within the posteriorcostophrenic angle, possible atelectasis or pneumonia, with very small pleuraleffusion.?Contracted gallbladder with multiple radiopaque gallstones. ?There is mildgallbladder wall thickening and infiltration of pericholecystic fat. ?Correlateclinically with clinical concern for acute gallstones.?Dilated distal thoracic aortic arch-proximal descending thoracic aorta measuring4?cm in diameter. ?The descending thoracic aorta mildly tapers in diameterdistally.?Hepatic cysts.?1 cm hypervascular nodule within the medial spleen.?Bilateral renal cortical cystic lesions, the joint too small to characterize byCT?criteria.AssessmentPatie nt is a 72 year old white male with PMH of A fib, CHF, COPD, HTN, and GIbleed due to antral ulcers, who presents with A fib with RVR, pancreatic headmass, and gastric outlet obstruction. Concern for possible gastrinoma vsadenocarcinoma of pancreas.Plan1) A fib with RVRCurrently on diltiazem drip. Received one dose of digoxin and lopressoryesterday.Continue to monitor BP to assess for hypotension.Not on anticoagulation due to GI bleedEP on board?2) Pancreatic mass and Gastric outlet obstructionSurgery followingCurrently NPOContinue NGT to LIWSContinue protonixf/u gastrinStart TPN?3) Recent upper GI bleed s/p angio-embolization of gastroduodenal andgastroepiploic arteries in June 2017.GI consulted for repeat EGD. Plan for EGD tomorrow as per Dr Dominguez?4) Hypotension: monitor blood pressure?5) Chronic normocytic anemia?Signed: Jorje Avalos, MDDate: September 14, 2017Time: 7:58 AMPrevious VersionKristina Benjamin, RN, RN 09/14/2017 12:11 PM AddendumCARE MANAGEMENT: ASSESSMENT AND DISCHARGE PLANSERVICE DATE: 09/14/2017SERVICE TIME: 1056PRIMARY CARE PHYSICIAN:ENRIQUE Perez [place]: [phone] STATUS: InpatientNeeds Prior to Discharge: To Be DeterminedMEDICAL:Patient/Rep resentative Stated Goals:To return home to life as it wasHealth Insurance: MEDICARE A AND BMedicaidHealth Issues Impacting Discharge Plan: A-fibLast Admission Date: Previous admit date: 06/23/2017Is this Within the Past 30 days? NoAdvance Directive:Current Advance Directive: NoneCare Paper Stacker Assisted with AD Completion: NoHealth Literacy:1. How often do you need to have someone help you when you read instructions,pamphlets, or other written material from your doctor or pharmacy? Never - 12. How confident are you filling out medical forms by yourself? Quite a bit - 2If Patient scores > 3 on either question, the following interventions were putinto place:Patient did not score > 3FUNCTIONAL AND COGNITIVE/BEHAVIORALPRIOR TO ADMISSION:Baseline Mental Status: Alert AND Oriented, Person, Place , Time and SituationFunctional Status: IndependentDoes Patient Currently Receive Any Community Services or Home Care? Passport Nadia Olivia [phone]. Patient states has meals on wheels,and plan to be set up with emergency alert.Equipment Prior to Admission: Aerosols/Intermittent positivebreathing/Respiratory TreatmentsHand Held ShowerTub bench/chairHas the Patient Been in a Nursing Home Facility in the Past 30 days? [facility]SOCIAL:Living Arrangement: HomeLives With: AloneFinancial Resources: N/APrimary Contact: Extended Emergency Contact InformationPrimary Emergency Contact: [place] [address] [facility] Nvixvkpf: SisterSupportive: YesOther Important Patient Contacts: NoneCaregiver Assessment:Caregiver is ready, willing and able to meet the patient's needs as recommendedby the inter-professional team? No Caregiver NeededPatient's transition needs and plan for meeting these needs: TBDDoes the patient have an acute stroke diagnosis, or has the patient had a strokeduring this admission? NoMedication Adherence:I am convinced of the importance of my prescription medication: Agree completely- 0I worry that my prescription medication will do more harm than good to meDisagree completely - 0I feel financially burdened by my mls-jr-ptkxcj expenses for my prescriptionmedication: Disagree completely - 0Patient is categorized as low risk < 2Are you interested in bedside delivery of your medications? YesFood Concerns:In the Last Month, Have You had Trouble Getting Food? No trouble getting foodDuring the Last Month, Have You Worried Whether Your Food Would Run Out BeforeYou Had Enough Money to Buy More? NoIs the Patient Psychosocially Complex? NoASSESSMENT AND PLAN:Medical Needs: To be determined.Psychosocial Needs: NoneFREEDOM OF CHOICE EXPLAINED:N/APOTENTIAL TRANSITION PLANSHomeTo Be DeterminedSpoke with patient regarding TPN and possible discharge needs. Patient statestoday he feels strong enough to plan to return home with [facility], but if he shouldneed rehab at discharge his choice is [facility]. for [facility] [phone] to call .Will continue to follow clinical progress for discharge planning.SIGNATURE: Zoë Alexander RN PATIENT NAME: Cristina JeffreyDATE: September 14, 2017 : 11:57 AM CONTACT #: [id number] VersionSafsaritha Avalos MD 09/14/2017 11:42 AM SignedPatient is a 72 years old male admitted in ICU for Afib with RVR. Patient hasbeen placed on diltiazem drip. EP is consulted and following the patient.Patient also has a pancreatic mass and gastric outlet obstruction. Generalsurgery following the patient. Patient is getting EGD tomorrow as per GI.Currently NPO and has a NG tube. Starting TPN today.Patient is hemodynamically stable to be transferred to the floor. Talked withHolly with [facility] who accepted the patient under the service of Dr Childers.Zayra Bemrudez Office Coord 09/14/2017 12:19 PM SignedHOME GREEN FEED ATTENDANT NOTESERVICE DATE: 09/14/2017SERVICE TIME: 12:19 PMReferral:Home Care referral received by: Jered continue to follow for physician ordersSIGNATURE: Zayra Bermudez Office Coord PATIENT NAME: Cristina MooreTE: September 14, 2017 : 12:18 PMSusan YVONNE Epperson.COOK APPRENTICE 09/14/2017 2:23 PM SignedGI CONSULT PROGRESS NOTESERVICE DATE: 09/14/2017SERVICE TIME: 2:13 PMCONSULTING SERVICE: GastroenterologySubjectiveINT ERVAL HISTORY: Still has NG with scant bloody drainage. Wants to eat - sayshe is hungryMEDICATIONS:Current hospital medications:phenol 1 Nineveh (CHLORASEPTIC) 1 Nineveh MUCOUS MEMBRANE (TOPICAL MOUTH AND THROAT) q2 H PRNbenzocaine-menthol 1 Lozenge (CEPACOL) 1 Lozenge MUCOUS MEMBRANE (TOPICAL MOUTHAND THROAT) q 2 H PRNParenteral Nutrition - Adult INTRAVENOUS ONCE TPN (2200 START)albuterol 2.5 mg /3 mL (0.083 %) 2.5 mg (PROVENTIL) 2.5 mg INHALATION q 4 H PRNondansetron (PF) 4 mg injection (ZOFRAN) 4 mg INTRAVENOUS q 6 H PRNNaCl 0.9% iv infusion 100 mL/hr INTRAVENOUS CONTINUOUSdilTIAZem 100 mg in D5W 100 mL ADD-Arvilla (CARDIZEM) 5-15 mg/hr INTRAVENOUSCONTINUOUS0.9% NaCl 10 mL 10 mL INTRAVENOUS q 12 H0.9% NaCl 20 mL 20 mL INTRAVENOUS PRNiv contrast (radiology procedure) INTRAVENOUS DIRECTED PRNenoxaparin 40 mg injection (LOVENOX) 40 mg SUBCUTANEOUS DAILYpantoprazole 40 mg injection (PROTONIX) 40 mg INTRAVENOUS DAILY (6 AM)ObjectivePHYSICAL EXAM:VITALS:BP 101/65 Pulse 94 Temp 36.1 ?C (97 ?F) (Axillary) Resp 19 Ht175.3 cm (5' 9.02") Wt 84.3 kg (185 lb 13.6 oz) SpO2 96% BMI 27.43kg/m?ABDOMEN: Softly distended, with minimal tenderness throughout, bowel soundspresent. No guarding, rebound or rigidity.General: Alert and oriented. No distressDATA:Diagnostic tests reviewed for today's visit:Most recent labs and imaging results.CBC, Coags, BMP, Mg, PhosRecent Labs 09/13/1802WBC 7.20 7.97 9.36*HB 8.2* 9.1* 9.9*HCT 26.1* 28.4* 30.0*PLT 210 212 258INR -- -- 1.13NA 137 135* 131*K 3.5 4.1 3.3*CHLOR 108* 106 93*CO2 23 27 30BUN 10 20* 34*CREAT 0.52* 0.67 0.84GLUC 72 90 92CA 7.0* 7.8* 9.3MG 2.1 -- 1.8P 1.3* -- --CSF AND DilantinLiver Function, Amylase, AND LipaseRecent Labs 09/12/1813TPROT -- 6.2*ALB -- 3.2*ALT -- 21AST -- 16ALKPHOS -- 51TBILI -- 0.4LIPASE 639* --Cardiac EnzymesABGsImpression/Recomme ndationsPancreatic mass with suspected gastric outlet obstruction - currently has NGwith scant bloody drainage- General surgery following. Considering surgery?History of Gastric ulcers and pyloric channel ulcers- s/p endoclip, EPIinjection and IR embolization. Was scheduled for repeat EGD earlier this week -but procedure was cancelled due to Afib-RVR- Reschedule EGD tomorrow with Dr. Dominguez?GI will continue to followSIGNATURE: Toshia Epperson APRN.COOK APPRENTICE PATIENT NAME: Cristina JeffreyDATE: September 14, 2017 : 2:13 PM PAGER/CONTACT #: [phone] Maher MD 09/14/2017 5:09 PM SignedCONSULT NOTESERVICE DATE: 09/14/2017SERVICE TIME: 12:00 PMPHYSICIAN CONSULT (AK,AV,EU,FV,HL,GERRY,MM,SP)Cons ult performed by: NEEMA MAHER ordered by: Liat MIRELES for consult: Atrial fibrillation.PRIMARY CARE PHYSICIAN: Clifton Del Valle [id number] male with history of essential hypertension, COPD, paroxysmal atrialfibrillation, recurrent upper GI bleeding, not anticoagulated, admitted with GIbleeding, noted to be in atrial fibrillation with RVR, treated with diltiazem IVand digoxin, found to have pancreatic mass with gastric outlet obstruction,scheduled for a surgical intervention. The patient is nothing by mouth, beingstarted on TPN. Remains in atrial fibrillation with reasonably controlledventricular rate. Echo several months ago demonstrated EF of 45%.FUNCTIONAL STATUS: IndependentPAST MEDICAL HISTORYDiagnosis Date- Afib (HCC)- CHF (congestive heart failure) (HCC)- COPD (chronic obstructive pulmonary disease) (HCC)- HypertensionPAST SURGICAL HISTORYProcedure Laterality Date- EGD 06/21/2017 Multiple antral ulcers with 1 large ulcer with a visible vessel at its base asthe source of bleeding. A large ulcer at the pre-pyloric region- EGD 06/23/2017 NG tube induced mucosal tear at GE junction, without bleeding. Multiple ulcersat distal antrum and pyloric channel with significant deformity. PreviouslyEndoclipped and epinephrine injected ulcer is not bleeding and visible vesselhas resolved. 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 Normalduodenum- TUMOR REMOVAL (SPECIFY LOCATION) HX breast, childhoodNo family history on file.Social HistorySubstance Use Topics- Smoking status: Never Smoker- Smokeless tobacco: Never Used- Alcohol use No Comment: quit 6 months agoPrescriptions Prior to Admission:ergocalciferol, vitamin D2, (VITAMIN D) 50,000 unit capsule Take 50,000 Units bymouth once each week. Disp: Rfl: Past Week at Unknown timepotassium chloride 20 mEq/kg/dose once daily. Disp: Rfl: 09/11/2017 at Unknowntimecarvedilol (COREG) 12.5 mg tablet Disp: Rfl:lisinopril (ZESTRIL, PRINIVIL) 20 mg tablet Disp: Rfl:predniSONE (DELTASONE) 10 mg tablet Disp: Rfl:metoprolol tartrate, short acting, (LOPRESSOR) 50 mg tablet Take 1 tablet bymouth every 8 hours. Disp: Rfl: 09/12/2017 at Unknown timediltiazem CD (CARDIZEM CD, CARTIA XT) 240 mg 24 hr capsule Take 1 capsule bymouth once daily. Disp: Rfl: 09/12/[address] (PROTONIX) 40 mg tablet Take 1 tablet by mouth twice daily.Disp: Rfl: 09/11/2017 at Unknown timeBismuth Subsalicylate (PEPTO-BISMOL) 262 mg tab Take 1 tablet by mouth twicedaily for 14 days. Disp: 28 tablet Rfl: 0 09/11/2017 at Unknown timeVit A,C,N-Xelw-Wabgrv (PRESERVISION AREDS) 14,320-226-200 jffh-gf-ykbd cap Take1 capsule by mouth twice daily. Disp: Rfl: 09/11/2017 at Unknown timealbuterol (PROVENTIL) 2.5 mg /3 mL (0.083 %) nebulizer solution Use 2.5 mg vianebulizer every 4 hours as needed for Wheezing/Shortness of Breath. Disp: Rfl:09/12/2017 at Unknown timepravastatin (PRAVACHOL) 40 mg tablet Take 40 mg by mouth once daily. Disp: Rfl:09/11/2017 at Unknown timebudesonide-formoterol (SYMBICORT) 160-4.5 mcg/actuation inhaler Inhale 1 Puff asinstructed twice daily. Disp: Rfl: 09/11/2017 at Unknown timeguaiFENesin (MUCINEX) 600 mg 12 hr tablet Take 1,200 mg by mouth twice daily.Disp: Rfl: 09/11/2017 at Unknown timefurosemide (LASIX) 40 mg tablet Take 40 mg by mouth twice daily. Disp: Rfl:09/11/2017 at Unknown timeCurrent hospital medications:phenol 1 Nineveh (CHLORASEPTIC) 1 Nineveh MUCOUS MEMBRANE (TOPICAL MOUTH AND THROAT) q2 H PRNbenzocaine-menthol 1 Lozenge (CEPACOL) 1 Lozenge MUCOUS MEMBRANE (TOPICAL MOUTHAND THROAT) q 2 H PRNParenteral Nutrition - Adult INTRAVENOUS ONCE TPN (2200 START)albuterol 2.5 mg /3 mL (0.083 %) 2.5 mg (PROVENTIL) 2.5 mg INHALATION q 4 H PRNondansetron (PF) 4 mg injection (ZOFRAN) 4 mg INTRAVENOUS q 6 H PRNNaCl 0.9% iv infusion 100 mL/hr INTRAVENOUS CONTINUOUSdilTIAZem 100 mg in D5W 100 mL ADD-Arvilla (CARDIZEM) 5-15 mg/hr INTRAVENOUSCONTINUOUS0.9% NaCl 10 mL 10 mL INTRAVENOUS q 12 H0.9% NaCl 20 mL 20 mL INTRAVENOUS PRNiv contrast (radiology procedure) INTRAVENOUS DIRECTED PRNenoxaparin 40 mg injection (LOVENOX) 40 mg SUBCUTANEOUS DAILYpantoprazole 40 mg injection (PROTONIX) 40 mg INTRAVENOUS DAILY (6 AM)Allergies As of Date: 09/12/2017(No Known Allergies)Fully Assessed 09/12/2017COMPLETE REVIEW OF SYSTEMS:Review of SystemsConstitutional: Positive for activity change, appetite change and fatigue.HENT: Positive for hearing loss.Eyes: Positive for pain.Respiratory: Negative for shortness of breath.Cardiovascular: Positive for palpitations. Negative for chest pain.Gastrointestinal: Positive for blood in stool.Genitourinary: Negative for on dialysis.Musculoskeletal: Negative for neck pain.Skin: Positive for pallor.Neurological: Negative for syncope.Psychiatric/Behaviora l: The patient is nervous/anxious.ObjectivePhys ical ExamConstitutional:Ill-appear ing male in no acute distress, NG tube in place with coffee-groundcontents.HENT:He ad: Normocephalic and atraumatic.Eyes: Conjunctivae are normal.Cardiovascular:Irregul ar, tachycardia, S1-S2.Pulmonary/Chest: No stridor. No respiratory distress.Skin: Skin is warm and dry.Psychiatric: He has a normal mood and affect.Patient Vitals for the past 24 hrs: BP Temp Temp src Pulse Resp SpO2 Qgxnew05/24/18 1600 114/62 36.1 ?C (97 ?F) Axillary 97 28 99 % -09/14/17 1500 99/71 - - 93 24 97 % -09/14/17 1400 109/65 - - 97 25 98 % -09/14/17 1330 102/59 - - 86 17 98 % -09/14/17 1300 101/65 - - 94 19 96 % -09/14/17 1230 94/62 - - 92 22 100 % -09/14/17 1226 - - - 91 24 - -09/14/17 1215 - - - 87 (!) 33 96 % -09/14/17 1200 105/66 36.1 ?C (97 ?F) Axillary 101 29 98 % -09/14/17 1145 108/63 - - 92 20 97 % -09/14/17 1130 100/63 - - 93 27 98 % -09/14/17 1115 104/69 - - 107 27 98 % -09/14/17 1100 105/71 - - 102 18 96 % -09/14/17 1000 120/72 - - 105 20 96 % -09/14/17 0900 115/68 - - 116 28 98 % -09/14/17 0852 - - - 120 - - -09/14/17 0800 112/68 - - 100 18 96 % -09/14/17 0730 124/65 36 ?C (96.8 ?F) Axillary 96 16 98 % -09/14/17 0700 99/69 - - 99 17 96 % -09/14/17 0600 116/80 - - 106 23 98 % -09/14/17 0500 95/68 - - 102 24 96 % -09/14/17 0400 114/63 - - 100 24 98 % 84.3 kg (185 lb 13.6 oz)09/14/17 0300 103/75 - - 78 20 97 % -09/14/17 02 (more content not included)... Normal [facility] Hemogramon 09-12-2017 Erythrocyte distribution width Auto Ratio (RBC) 15.4 % High 11.6-14.[address] [facility] Comment on above: Performed By: #### P T ####[address] [address] Erythrocytes (RBC) 3.46 mil/cmm Low 4.63-6.08 [facility] Comment on above: Performed By: #### P T ####[address] [address] Hematocrit (HCT) 30.0 % Low 40.1-51.[address] [facility] Comment on above: Performed By: #### P T ####[address] [address] Hemoglobin mass conc (Bld) 9.9 g/dL Low 13.7-17.[address] [facility] Comment on above: Performed By: #### P T ####[facility] [place], [place] [address] MCH 28.6 pg Normal 25.7-32.[address] [facility] Comment on above: Performed By: #### P T ####[facility] [place], [place] [address] MCHC mass conc (RBC) 33.0 % Normal 32.3-36.5 [facility] Comment on above: Performed By: #### P T ####[facility] [place], [place] [address] MCV 86.7 fL Normal 83.2-95.[address] [facility] Comment on above: Performed By: #### P T ####[address] [address] Platelet mean volume (PMV) 9.9 fL Normal 8.7-12.[address] [facility] Comment on above: Performed By: #### P T ####[address] [address] Platelets 258 thou/cmm Normal 141-[address] [facility] Comment on above: Performed By: #### P T ####[address] [address] RDW SD 48.8 fl High 36.1-45.[address] [facility] Comment on above: Performed By: #### P T ####[address] [address] WBC (Leukocytes) 9.36 thou/cmm High 4.23-9.[address] [facility] Comment on above: Performed By: #### P T ####[address] [address] Lipase Bloodon 09-12-2017 Lipase Blood 639 U/L High 73-[address] [facility] Comment on above: Performed By: #### P T ####[address] [address] MDRD GFRon 09-12-2017 eGFR (non-black) mL/min/{1.73_m2} Normal >60mL/m in/ 1.73m2 [facility] Comment on above: Result Comment: If t he patient is , multiply the result by 1.210. Performed By: #### P T ####[facility] [place] [id number] MRSA Screenon 09-12-2017 MRSA Screen Test performed at [facility] No MRSA detected. Normal [facility] Comment on above: Performed By: #### P T ####[facility] [place] [address] Magnesium Bloodon 09-12-2017 Magnesium 1.8 mg/dL Normal 1.6-2.[address] [facility] Comment on above: Performed By: #### P T ####[place] [address] N-terminal Pro-BNPon 018 BNP 1728 pg/mL Normal [facility] Comment on above: Result Comment: Acut e CHF Rule-in <50 yrs old >= 450 pg/ml >50 yrs old >= 900 pg/ml Abnormal Pro-BNP All patients >=300 pg/ml Performed By: #### P T ####[place] [address] NURSING PROGon 09-12-2017 Protein mass conc HNO ID: [id number] Author: Melissa BarnettRn) Amrik, GREGORY Service: Nursing Author Type: Registered Nurse Type: Nursing Progress Note Filed: 09/12/2017 12:53 PM Note Text: Squad took patient to ED, caroyn sister following to ED. Dr Bueno and Dr Dominguez aware. Normal [facility] Protein mass conc HNO ID: [id number] Author: Melissa Spear) Amrik, RN Service: Nursing Author Type: Registered Nurse Type: Nursing Progress Note Filed: 09/12/2017 12:41 PM Note Text: 1241 squad here , hooking patient up to EKG. Normal [facility] Protein mass conc HNO ID: [id number] thor: KELLY Weston Rnervice: NursingAuthor Type: Registered NurseType: Nursing Progress NoteFiled: 09/12/2017 12:39 PMNote Text:1235 Melissa sewell called 911 and gave report, squad coming shortly to takept to ER.Dr Bueno calling ER to give them update on patient. [facility] Protein mass conc HNO ID: [id number] thor: Sagar Cornell MirService: NursingAuthor Type: PhysicianType: Nursing Progress NoteFiled: 09/12/2017 12:32 PMNote Text:Pt is in afib rvr, heart rate in 180s, bp 111/75. 94% RA. Dr Myles Dominguez at bedside and decided to send pt to ER and that EGD would be toounsafe to perform. Sister crystal now at bedside and she is being updatedby doctors.melissa sewell will call 911 so that pt can be safety transferred to ER. - EGD cancelled due to marked tachycardia as stated above. Will send toER for appropriate care. [facility] PT EDon 09-12-2017 PT ED HNO ID: [id number] thor: Sagar Cornell MirService: NursingAuthor Type: PhysicianType: Patient EducationFiled: 09/12/2017 12:26 PMNote Text:PRE OP LEARNING ASSESSMENTPROCEDURE/SURGERY: GI PROCEDURES: EGDREADINESS TO LEARNCOGNITIVE ABILITY: Alert and orientedMOTIVATION TO LEARN: EagerFAMILY SUPPORT: Moderate - Family present but overwhelmedPATIENT LEARNS BEST BY: Individual InstructionFACTORS AFFECTING LEARNING: NonePHYSICAL LIMITATIONS AFFECTING LEARNING: NoneElectronically Signed By: Melissa Rowley RN In Department: CO ENDO Normal [facility] Protimeon 09-12-2017 INR Coag RelTime (PPP) 1.13 {INR} Normal [facility] Comment on above: Result Comment: Timo dard Therapy 2.0-3.0High Dose 2.5-3.5 Performed By: #### P T ####[place] [address] Prothrombin time (PT) Coag time (PPP) 11.7 s Normal 9.3-11.[address] [facility] Comment on above: Performed By: #### P T ####[place] [address] HOSPon 08-14-2017 HOSP Patient:Tessie Jeffrey TMRN: Height:5' 9"(1.753 m)Weight:180 lb (81.647 kg)Outpatient Medications as of 09/12/17:ergocalciferol, vitamin D2, (VITAMIN D) 50,000 unit capsulepotassium chloridecarvedilol (COREG) 12.5 mg tabletlisinopril (ZESTRIL, PRINIVIL) 20 mg tabletpredniSONE (DELTASONE) 10 mg tabletmetoprolol tartrate, short acting, (LOPRESSOR) 50 mg tabletdiltiazem CD (CARDIZEM CD, CARTIA XT) 240 mg [address] (PROTONIX) 40 mg tabletBismuth Subsalicylate (PEPTO-BISMOL) 262 mg tabVit A,C,K-Ircw-Oddhwi (PRESERVISION AREDS) 14,320-226-200 qcdv-sx-stqr capalbuterol (PROVENTIL) 2.5 mg /3 mL (0.083 %) nebulizer solutionpravastatin (PRAVACHOL) 40 mg tabletbudesonide-formoterol (SYMBICORT) 160-4.5 mcg/actuation inhalerguaiFENesin (MUCINEX) 600 mg 12 hr tabletfurosemide (LASIX) 40 mg tabletAdmission/Clinic Administered Medications as of 09/12/17:Patient has no admission medications.Problem List:Shock (HCC) [R57.9]COPD (chronic obstructive pulmonary disease) (HCC) [J44.9]Hypertension [I10]Hyperlipidemia [E78.5]GI bleeding [K92.2]Acute respiratory failure with hypoxia and hypercapnia (HCC) [J96.01, J96.02]Acute blood loss anemia [D62]Hemorrhagic shock (HCC) [R57.8]Hypophosphatemia [E83.39]Atrial fibrillation with rapid ventricular response (HCC) [I48.91]Severe protein-calorie malnutrition (HCC) [E43]Allergies:No Known AllergiesDate Verified:09/12/17Lab ValuesNo results within the last 30 days for the following basenames: K,HCTNo progress notes entered within the past 30 days Normal [facility] Basic Panelon 07-05-2017 Creatinine 0.76 mg/dL Normal 0.67-1.[address] [facility] Comment on above: Performed By: #### P T ####[facility] [place] [address] Anion gap 10 mmol/L Normal 8-[address] [facility] Comment on above: Performed By: #### P T ####[place] [address] CO2 27 mmol/L Normal 21-[address] [facility] Comment on above: Performed By: #### P T ####[place] [address] Glucose mass conc 114 mg/dL High 70-[address] [facility] Comment on above: Performed By: #### P T ####[place] [address] Urea nitrogen 13 mg/dL Normal 7-[address] [facility] Comment on above: Performed By: #### P T ####[place] [address] Calcium 8.3 mg/dL Low 8.5-10.[address] [facility] Comment on above: Performed By: #### P T ####[place] [address] Chloride 102 mmol/L Normal 98-[address] [facility] Comment on above: Performed By: #### P T ####[place] [address] Potassium molar conc 4.0 mmol/L Normal 3.5-5.1 [facility] Comment on above: Performed By: #### P T ####[place] [address] Sodium 135 mmol/L Low 136-[address] [facility] Comment on above: Performed By: #### P T ####[place] [address] CASE MANAGEMon 07-05-2017 CASE MANAGEM HNO ID: [id number] thor: Mitali (Specialist) JohnsonService: Care ManagementAuthor Type: (none)Type: Care Mgt Progress NoteFiled: 07/05/2017 12:14 PMNote Text:[facility] arrive at 2:00 pm to transport [facility].FELIPE (Lakia) notified CHARLOTTE (Chris) regarding transport time. Orders uploadedin Allscripts. [facility] CASE MANAGEM HNO ID: [id number] thor: Lakia BarnettRn) KELLY Guillenervice: Care ManagementAuthor Type: Registered NurseType: Care Mgt Progress NoteFiled: 07/05/2017 11:11 AMNote Text:CARE MANAGEMENT PROGRESS NOTESERVICE DATE: 07/05/2017SERVICE TIME: 11:08 AM LOS: 12 daysDC orders completed. Transport arranged by at 2pm. [id number] Williams, RN aware, pt updatedSIGNATURE: Lakia Guillen RN PATIENT NAME: Cristina MooreTE: July 05, 2017 : 11:08 AM PAGER/CONTACT #: [phone] [facility] CASE MANAGEM HNO ID: [id number] thor: KELLY Carey Rnervice: Care ManagementAuthor Type: Registered NurseType: Care Mgt Progress NoteFiled: 07/05/2017 8:58 AMNote Text:CARE MANAGEMENT PROGRESS NOTESERVICE DATE: 07/05/2017SERVICE TIME: 8:57 AM [facility] precert needed. Dr. Puri notified. AwaitDC ordersSIGNATURE: Lakia Guillen RN PATIENT NAME: Cristina MooreTE: July 05, 2017 : 8:57 AM PAGER/CONTACT #: [phone] [facility] Hgbon 07-05-2017 Hemoglobin mass conc (Bld) 9.2 g/dL Low 13.7-17.[address] [facility] Comment on above: Performed By: #### P T ####[place] [address] MDRD GFRon 07-05-2017 eGFR (non-black) mL/min/{1.73_m2} Normal >60mL/m in/ 1.73m2 [facility] Comment on above: Result Comment: If t he patient is , multiply the result by 1.210. Performed By: #### P T ####[place] [address] NUTRITIONon 07-05-2017 NUTRITION HNO ID: [id number] thor: OUMOU Alonso Rdervice: Nutrition TherapyAuthor Type: Registered DietitianType: NutritionFiled: 07/05/2017 11:29 AMNote Text:NUTRITION THERAPY PROGRESS NOTESERVICE DATE: 07/05/2017SERVICE TIME: 10:25RECOMMENDED DIAGNOSIS: SEVERE PROTEIN-CALORIE MALNUTRITION per RegisteredDietitian on 07/03/17In the context of Acute Illness or Injury based on:Insufficient Energy Intake: less than or equal to 50% for greater than orequal to 5 daysSubcutaneous Fat Loss: Mild LossMuscle Loss Moderate LossDecline in Functional Status: RegressedNUTRITION CARE PLANProblem, Etiology and Signs/Symptoms:Suboptimal oral intake related to decreased appetite as evidenced bynursing records of variable po intake 0-75% intake, mild subcutaneous fatloss, and moderate muscle loss.Intervention:1. Switch Ensure Enlive flavor to strawberry/vanilla per patient request,continue BID to provide 350 kcals and 20 grams protein per serving.2. Encourage oral intakeMonitor and Evaluation:Goal: Meet >75% of estimated needsMonitor fluid/electrolyte balanceMonitor labs, I/Os, vital signs, weightDischarge Nutrition Recommendations:Diet: Regular diet (dental soft choices per patient request) Reason for Visit: Follow-up related to severe malnutrition diagnosed by Emi acute illness on follow-up visit. Oral nutrition supplements started.Per HPI: Cristina Jeffrey is a 71 year old with a history of COPD, HTN, HLD,and a questionable history of alcohol abuse who presented to [facility] withspnea who received a breathing treatment and then became increasinglyaltered. He waas found to be AANDOx1, hypotensive and believed to be inhypovolemic/hemorrhagic shock from a GI bleed. He received 2L NS and 1unit of PRBC. He has no active signs of bleeding, but a recent history ofmelena. He was brought here to the ICU by EMS only arousable to sternalrub. His initial BP's were 60's/40's and tachycardic to the 120's. An OGwas placed and immediately revealed black fluid. Patient was immediatelyintubated for airway protection.Clinical Course: Patient was intubated for airway protection and hasmultiple antral and pyloric ulcers with one visible vessel s/p clippingwith repeat EGD. Continued oozing required IR guided embolization ofgastroduodenal and gastroepiploic arteries on 06/23. Patient receivedmassive transfusion protocol on admission. Patient was started on TF on06/26?and treatment for H. Pylori per GI recommendations, as well digoxindaily per EP recommendations.Patient was extubated on 06/27.?Patient has not had any further episodes ofactive bleeding and Hgb has remained stable. Surgery has signed off. GIhas signed off with final recommendations for eventual IR embolization ofbranches of GDA/gastroepiploic arteries, and treatment of H. Pylorigastritis as an outpatient with 2 weeks of PPI BID, doxycycline 100mg BID,and metronidazole 250mg QID and Pepto-Bismol 2mg PO QID with a repeat EGDin 8-[address] Dominguez to document healing of gastric ulcers. Duringhis MICU stay, patient had intermittent episodes of AFib w/ RVR which EPwas consulted for. The patient was placed initially on an amiodarone gttfollowed by daily digoxin and daily cardizem which was then changed toLopressor. Patient is now on cardizem 120mg PO daily and lopressor 50mgTID for rate control. Per GI, patient should not be on anticoagulation for2 weeks. ?Pt transferred to floor on 06/29/17.Interval History: PT/OT recommending SNF. EP cardiology signed off aspatient is currently in sinus rhythm. Hgb remains stable per hospitalmedicine note.Present Diet Order: Food Consistency Controlled Dental SoftNutritional Intake: <50% estimated energy need over the past 12 day(s).Patient reports oral intake is still not adequate, states he did not eatbreakfast today d/t someone kept me up all night talking to themselves"so he slept through breakfast. 10% recorded in nursing flowsheet. Only 1other meal recorded in nursing flowsheet since last RD note, 50% atbreakfast on 07/04. States chocolate Ensure is too sweet. Willing to trystrawberry/vanilla.Admissi on Weight: 96 kg (211 lb 10.3 oz)Current Weight: 86.7 kg (191 lb 1.6 oz)Body mass index is 27.42 kg/(m2). normal for ageCurrent Facility-Administered Medications:vitamins Z-D-G-uzqz-uonefydw-xrbsqq 5,000-60-30 amxb-pi-lqgw 1 tablet(PROSIGHT) 1 tablet ORAL BIDpotassium-sodium phosphates 2 Packet (NEUTRA-PHOS,PHOS-NAK) 2 Packet ORALPC and HSmetoprolol tartrate (short acting) 50 mg tab(s) (LOPRESSOR) 50 mg ORAL q 8Hdiltiazem CD 240 mg cap(s) (CARDIZEM CD, CARTIA XT) 240 mg ORAL DAILYfurosemide 40 mg tab(s) (LASIX) 40 mg ORAL DAILYatorvastatin 20 mg tab(s) (LIPITOR) 20 mg ORAL AT BEDTIMEpantoprazole DR 40 mg tab(s) (PROTONIX) 40 mg ORAL BIDipratropium-albuterol 3 mL nebulizer solution (DUONEB) 3 mL INHALATION QIDoxyCODONE IR 5 mg tab(s) (ROXICODONE) 5 mg ORAL q 4 H PRNpill manager critical care unit (patient-specific) 1 Each Miscell. (Med.Supl.;Non-Drugs) PRNIntake/Output 07/01/17 07 - 07/02/17 0659 07/02/17 07 - 07/03/17 0659 700 - 07/04/17 0659 07/04/17 07 - 07/05/17 0659 07/05/17 0700 -07/06/17 0659 Intake (ml) 360 500 -- 880 100 Output (ml) 380 376 411 300 100 Net (ml) -20 124 -411 580 0MNT Billing Type: Re-assess/15 min 3 unitsSIGNATURE: Natacha Hadley RD PATIENT NAME: Cristina JeffreyDATE: July 05, 2017 : 8:54 AM PAGER: [phone] Normal [facility] Phosphorus Bloodon 8 Phosphate 3.0 mg/dL Normal 2.5-4.[address] [facility] Comment on above: Performed By: #### P T ####[facility] [place] [address] Basic Panelon 07-04-2017 Creatinine 0.66 mg/dL Low 0.67-1.[address] [facility] Comment on above: Performed By: #### P T ####[place] [address] Glucose mass conc 108 mg/dL High 70-[address] [facility] Comment on above: Performed By: #### P T ####[place] [address] Urea nitrogen 9 mg/dL Normal 7-[address] [facility] Comment on above: Performed By: #### P T ####[place] [address] Anion gap 10 mmol/L Normal 8-[address] [facility] Comment on above: Performed By: #### P T ####[place] [address] Calcium 8.3 mg/dL Low 8.5-10.[address] [facility] Comment on above: Performed By: #### P T ####[place] [address] CO2 27 mmol/L Normal 21-[address] [facility] Comment on above: Performed By: #### P T ####[place] [address] Chloride 102 mmol/L Normal 98-[address] [facility] Comment on above: Performed By: #### P T ####[place] [address] Potassium molar conc 3.8 mmol/L Normal 3.5-5.1 [facility] Comment on above: Performed By: #### P T ####[place] [address] Sodium 135 mmol/L Low 136-[address] [facility] Comment on above: Performed By: #### P T ####[place] [id number] CASE MANAGEMon 07-04-2017 CASE MANAGEM HNO ID: [id number] thor: Lakia (Rn) KELLY Guillenervice: Care ManagementAuthor Type: Registered NurseType: Care Mgt Progress NoteFiled: 07/04/2017 9:00 AMNote Text:CARE MANAGEMENT PROGRESS NOTESERVICE DATE: 07/04/2017SERVICE TIME: 8:58 AM [facility] to [address] [place] [address]. Await acceptance. No precert will be needed once acceptedSIGNATURE: Lakia Guillen RN PATIENT NAME: Cristina MooreTE: July 04, 2017 : 8:58 AM PAGER/CONTACT #: [phone] Normal [facility] Hgbon 07-04-2017 Hemoglobin mass conc (Bld) 9.5 g/dL Low 13.7-17.[address] [facility] Comment on above: Performed By: #### P T ####[place] [address] MDRD GFRon 07-04-2017 eGFR (non-black) mL/min/{1.73_m2} Normal >60mL/m in/ 1.73m2 [facility] Comment on above: Result Comment: If t he patient is , multiply the result by 1.210. Performed By: #### P T ####[place] [address] PROGRESSon 07-04-2017 Protein mass conc HNO ID: [id number] thor: CANDICE Rosarioervice: Hospital MedicineAuthor Type: PhysicianType: Progress NotesFiled: 07/05/2017 10:28 AMNote Text:DEPARTMENT OF HOSPITAL MEDICINEPROGRESS NOTESubjectivePatient was seen, no acute events Denies fever, chills, n, v, cp, sob, palpation, headache or abdominalpainMEDICATIONS: ReviewedObjectivePHYSICAL EXAM: BP 108/62 Pulse 60 Temp (Src) 97.9 (Oral) Resp 20 Ht 5' 10" (1.78m) Wt 191 lb 1.6 oz (86.7kg) SpO2 93% BMI 27.42kg/(m2).GENERAL:Alert, no distress, cooperativeSKIN: Skin color, texture, turgor normal. No rashes or lesions.HEAD/SINUSES: No significant findingsEYES: PERRLA, EOMIEARS: External ears normal, canals clearNOSE: Nares normal. Septum midline.NECK: no JVDBACK: no CVA tendernesLUNGS: bilateral diminished air entryCARDIAC: Normal S1 and S2; irregular heart rateABDOMEN: Abdomen soft, non-tender, BS normal, No masses or organomegalyEXTREMITIES: Extremities normal, no deformities, edema, clubbing or skindiscoloration.NEURO: No focal motor or sensory deficitPULSES: 2+ radial, 2+ carotidDATA:Diagnostic tests reviewed for today's visit:Most recent labs and imaging results.Assessment/PlanPrinci pal Problem: Hemorrhagic shock, resolved (HCC) POA: Yes Assessment AND Plan: HB is stable Acute blood loss anemia due to GI bleeding, stable POA: Yes Assessment AND Plan: s/p s/p angio-embolization of gastroduodenal andgastroepiploic arteries and treatment of H. Pylori gastritis as anoutpatient with 2 weeks of PPI BID, doxycycline 100mg BID, andmetronidazole 250mg QID and Pepto-Bismol 2mg PO QID with a repeat EGD in8-[address] Dominguez to document healing of gastric ulcers. Continuewith PPI Atrial fibrillation with rapid ventricular response (HCC) POA: No Assessment AND Plan: continue with cardizem and BB no OAC for now untilrepeat EGD COPD (chronic obstructive pulmonary disease) (HCC) POA: Yes Assessment AND Plan: stable, continue with Duoneb Hyperlipidemia POA: No Assessment AND Plan: continue with statin Debility, PT/OT, pending SNFSIGNATURE: Mirella Puri MD PATIENT NAME: Cristina Jeffrey : 10:41 AM PAGER/CONTACT #: Normal [facility] Phosphorus Bloodon 8 Phosphate 2.6 mg/dL Normal 2.5-4.[address] [facility] Comment on above: Performed By: #### P T ####[facility] [place], [place] [address] Basic Panelon 07-03-2017 Creatinine 0.68 mg/dL Normal 0.67-1.[address] [facility] Comment on above: Performed By: #### P T ####[facility] [place], [place] [address] Glucose mass conc 83 mg/dL Normal 70-[address] [facility] Comment on above: Performed By: #### P T ####[address] [address] Urea nitrogen 7 mg/dL Normal 7-[address] [facility] Comment on above: Performed By: #### P T ####[address] [address] Anion gap 9 mmol/L Normal 8-[address] [facility] Comment on above: Performed By: #### P T ####[address] [address] Calcium 7.7 mg/dL Low 8.5-10.[address] [facility] Comment on above: Performed By: #### P T ####[address] [address] CO2 26 mmol/L Normal 21-[address] [facility] Comment on above: Performed By: #### P T ####[place] [address] Chloride 104 mmol/L Normal 98-[address] [facility] Comment on above: Performed By: #### P T ####[place] [address] Potassium molar conc 3.4 mmol/L Low 3.5-5.1 [facility] Comment on above: Performed By: #### P T ####[place] [address] Sodium 136 mmol/L Normal 136-[address] [facility] Comment on above: Performed By: #### P T ####[address] [address] CASE MANAGEMon 07-03-2017 CASE MANAGEM HNO ID: [id number] Author: Mitali (Specialist) Balwinder Service: Care Management Author Type: (none) Type: Care Mgt Progress Note Filed: 07/03/2017 12:00 PM Note Text: SNF referral sent to [facility]. Normal [facility] CASE MANAGEM HNO ID: [id number] thor: Lakia (Rn) Mindy, RNService: Care ManagementAuthor Type: Registered NurseType: Care Mgt Progress NoteFiled: 07/03/2017 11:08 AMNote Text:CARE MANAGEMENT PROGRESS NOTESERVICE DATE: 07/03/2017SERVICE TIME: 11:06 AM LOS: 10 daysReceived call from [id number] Chris. They have reviewed choice list and1st choice is [facility]. Await acceptance. Will notneed precert once accepted. If unable to accept the 2nd [facility], #3 is [facility], #4 is [facility] CenterSIGNATURE: Lakia Guillen RN PATIENT NAME: Cristina MooreTE: July 03, 2017 : 11:06 AM PAGER/CONTACT #: [phone] Normal [facility] Hgbon 07-03-2017 Hemoglobin mass conc (Bld) 9.3 g/dL Low 13.7-17.[address] [facility] Comment on above: Performed By: #### P T ####[place] [address] MDRD GFRon 07-03-2017 eGFR (non-black) mL/min/{1.73_m2} Normal >60mL/m in/ 1.73m2 [facility] Comment on above: Result Comment: If t he patient is , multiply the result by 1.210. Performed By: #### P T ####[place] [id number] NURSING PROGon 07-03-2017 Protein mass conc HNO ID: [id number] thor: Dasha (Rn) Frederick, RNService: (none)Author Type: Registered NurseType: Nursing Progress NoteFiled: 07/03/2017 4:53 AMNote Text: Nursing Progress NotePatient Name: Cristina LeeN: [id number] Location: [place] [address]/[place] [address]*____ Patient requesting breathing treatment. O2 sats 97% on 1.5 L NC. Bloodpressure 144/63, HR 68, Temp 36.1. Incentive spirometry encouraged. Soundphysicians notified.This note was completed by: Dasha Mack RN [facility] NUTRITIONon 07-03-2017 NUTRITION HNO ID: [id number] thor: Analy Gaming) FerberService: Nutrition TherapyAuthor Type: Registered DietitianType: NutritionFiled: 07/03/2017 3:52 PMNote Text:NUTRITION THERAPY REASSESSMENTSERVICE DATE: 07/03/2017SERVICE TIME: 11:07RECOMMENDED MALNUTRITION DIAGNOSIS: SEVERE PROTEIN-CALORIE MALNUTRITIONIn the context of Acute Illness or Injury based on:Insufficient Energy Intake: less than or equal to 50% for greater than orequal to 5 daysSubcutaneous Fat Loss: Mild LossMuscle Loss Moderate LossDecline in Functional Status: RegressedNUTRITION CARE PLAN:Problem, Etiology and Signs/Symptoms:Suboptimal oral intake related to decreased appetite as evidenced bynursing records of variable po intake 0-75% intake, mild subcutaneous fatloss, and moderate muscle loss.Intervention:1. Ensure Enlive BID to provide 350 kcals, 20 grams protein each2. Encouraged adequate oral intake to meet estimated nutrient needs3. Recommend ST consult due to pt with difficulty chewingMonitor and Evaluation:Goal: Meet >75% of estimated needsMonitor fluid/electrolyte balanceMonitor labs, I/Os, vital signs, weightDischarge Nutrition Recommendations:Diet: Regular- dental soft or texture per STSupplements: Oral supplements BID Reason for Assessment:Reassessment due to RD unable to determine malnutrition previouslyPer Critical Care HPI (06/29): Patient is a 71 yo M with PMHx COPD, HTN, HD,and possible alcohol abuse history who is being managed for acutehypovolemic/hemorrhagic shock 2/ GI bleed. Patient was intubated forairway protection and has multiple antral and pyloric ulcers with onevisible vessel s/p clipping with repeat EGD. Continued oozing required IRguided embolization of gastroduodenal and gastroepiploic arteries on 06/23.Patient received massive transfusion protocol on admission. Patient wasstarted on TF on 06/26 and treatment for H. Pylori per GI recommendations,as well digoxin daily per EP recommendations.Patient was extubated on 06/27. Patient has not had any further episodes ofactive bleeding and Hgb has remained stable. Surgery has signed off. GIhas signed off with final recommendations for eventual IR embolization ofbranches of GDA/gastroepiploic arteries, and treatment of H. Pylorigastritis as an outpatient with 2 weeks of PPI BID, doxycycline 100mg BID,and metronidazole 250mg QID and Pepto-Bismol 2mg PO QID with a repeat EGDin 8-[address] Dominguez to document healing of gastric ulcers.During his MICU stay, patient had intermittent episodes of AFib w/ RVRwhich EP was consulted for. The patient was placed initially on anamiodarone gtt followed by daily digoxin and daily cardizem which was thenchanged to Lopressor. Patient is now on cardizem 120mg PO daily andlopressor 50mg TID for rate control. Per GI, patient should not be onanticoagulation for 2 weeks. ?Pt transferred to floor on 06/29/17.Interval History: Pt will need SNF/Subacute facility upon discharge.Patient's diet changed to Dental Soft on 06/29/17 due to poor dentition.Active Hospital Problems Diagnosis Date Noted- Hemorrhagic shock ([facility]) 06/24/2017- Acute respiratory failure with hypoxia and hypercapnia ([facility]) 06/24/2017- Acute blood loss anemia 06/24/2017- Hypophosphatemia 06/24/2017- Atrial fibrillation with rapid ventricular response ([facility]) 06/24/2017- GI bleeding 06/23/2017 Overview Note: Added automatically from request for surgery [id number] Shock ([facility]) 06/21/2017- COPD (chronic obstructive pulmonary disease) ([facility]) 06/21/2017- Hypertension 06/21/2017- Hyperlipidemia 06/21/2017No past medical history on file.No past surgical history on file.Present Diet Order: Food Consistency Controlled Dental SoftNutritional Intake: <50% estimated energy needs over the past 6 days. Metwith pt in regards to nutritional intake. Pt reports a decline in pointake during admission. Per pt he is eating approximately 60% of hismeals. Nursing records report pt with variable intake 0-75% of meals overthe past 6 days. Pt stated he is having difficulty chewing meats due topoor dentition. Pt is agreeable to Ensure BID.GI symptoms: chewing difficulty, decreased appetite, last BM 07/02/17-liquid, greenAbdominal Exam: abdomen is soft and bowel sounds are normalIs the patient having any pain that is interfering with oral/enteralintake? NoANTHROPOMETRICSHeight: 177.8 cm (5' 10")Admission Weight: 96 kg (211 lb 10.3 oz) - noting generalized edemaCurrent Weight: 86.7 kg (191 lb 1.6 oz) - noting generalized edemaBody mass index is 27.42 kg/(m2). overweightWeight has decreased by 9.3 kg over 9 days representing 9.7 % weightchange. Suspect weight change inaccurate due to significant weight changewhen transferred from ICU to 4200.Bed weight 83.5 kg - question accuracy of bed weight?Last 10 Encounter Wt Readings: Date: Wt: 07/02/2017 86.7 kg - bed 4200 06/29/2017 93.9 kg - bed ICU 06/28/2017 98.4 kg - bed ICU 06/27/2017 103.1 kg - bed ICU 06/26/2017 100.5 kg - bed ICU 2017 97.5 kg - bed ICU 06/21/2017 96 kg - bed ICUPt unsure of UBWIdeal Body Weight: 73 kgCurrent Weight: 86.7 kgResting Metabolic Rate: 1627Estimated kilocalorie needs: 8899-4851 kilocalories determined by 30-35kcal/kg IBW - increased for COPDEstimated protein needs: 73-102 grams determined by 1.0-1.4 g/kg Idealweight- increased for COPDEstimated fluid needs: 2190 milliliters based on 1 mL per kcalNUTRITION FOCUSED PHYSICAL EXAM:Subcutaneous Fat LossOrbital MildTriceps MildMid-axillary at the iliac crest No fat lossMuscle Loss Locations:Temporalis ModeratePectoralis ModerateDeltoids MildInterosseous MildLatissimus dorsi, trapezius MildQuadriceps MildGastrocnemius MildPotential micronutrient deficiency revealed in: Skin - dry and flakyTeeth - poor dentitionEdema: Yes GeneralizedAscites: NoAssessment of Functional Status: Bedridden, rarely out of bed for aduration of 10 daysTemperature Max in 24 hours: Temp (24hrs), Av.5 ?C (97.7 ?F), Min:36.1?C (97 ?F), Max:36.6 ?C (97.9 ?F) BP 115/57 Pulse 68 Temp 36.6 ?C (97.9 ?F) Resp 18 Ht 177.8 cm (5'10") Wt 86.7 kg (191 lb 1.6 oz) SpO2 98% BMI 27.42 kg/w9[facility] [id number] 83BUN 7CREAT 0.68NA 136K 3.4*CHLOR 104CO2 26PREALB 9.4*HB 9.3*P 2.7Potential Signs of Inflammation: low prealbuminALLERGIESNo Known AllergiesCurrent Facility-Administered Medications:vitamins B-Z-V-nfcg-ysehhowi-rkelqq 5,000-60-30 ljdh-rz-kvdw 1 tablet(PROSIGHT) 1 tablet ORAL BIDpotassium-sodium phosphates 2 Packet (NEUTRA-PHOS,PHOS-NAK) 2 Packet ORALPC and HSmetoprolol tartrate (short acting) 50 mg tab(s) (LOPRESSOR) 50 mg ORAL q 8Hdiltiazem CD 240 mg cap(s) (CARDIZEM CD, CARTIA XT) 240 mg ORAL DAILYfurosemide 40 mg tab(s) (LASIX) 40 mg ORAL DAILYatorvastatin 20 mg tab(s) (LIPITOR) 20 mg ORAL AT BEDTIMEpantoprazole DR 40 mg tab(s) (PROTONIX) 40 mg ORAL BIDipratropium-albuterol 3 mL nebulizer solution (DUONEB) 3 mL INHALATION QIDoxyCODONE IR 5 mg tab(s) (ROXICODONE) 5 mg ORAL q 4 H PRNpill manager critical care unit (patient-specific) 1 Each Miscell. (Med.Supl.;Non-Drugs) PRNMNT Billing Type: Re-assess/15 min 4 unitsSIGNATURE: Analy Spangler RD PATIENT NAME: Cristina JeffreyDATE: July 03, 2017 : 8:18 AM PAGER: [phone] Normal [facility] PROGRESSon 07-03-2017 Protein mass conc HNO ID: [id number] thor: Giselle (Business Performance Analyst) CroomService: ElectrophysiologyAuthor Type: Nurse PractitionerType: Progress NotesFiled: 07/03/2017 3:43 PMNote Text:[facility] PROGRESS NOTE CARDIOLOGY SERVICESERVICE DATE: 07/03/2017SERVICE TIME: 3:18 PMSubjectiveINTERIM HISTORY: Cristina Jeffrey is laying in bed NAD. He denies CP, SOB,dizziness, syncope, palpitations. ObjectivePHYSICAL EXAM:Body mass index is 27.42 kg/(m2).O2 Therapy: Room AirNo Data RecordedPatient Vitals for the past 24 hrs: BP Temp Temp src Pulse Resp OjF23807/03/17 1120 131/67 36.5 ?C (97.7 ?F) - 72 18 96 %07/03/17 0837 - - - 67 18 97 %07/03/17 0753 115/57 36.6 ?C (97.9 ?F) - 68 18 98 %07/03/17 0445 144/63 36.1 ?C (97 ?F) Oral 68 18 97 %07/02/17 2323 (!) 102/42 36.6 ?C (97.9 ?F) Oral 76 16 94 %07/02/172005 96/51 36.6 ?C (97.9 ?F) Oral 72 16 94 %07/02/172 - - - 62 16 95 %07/02/17 1746 - - - 66 18 -07/02/17 1733 - - - 64 16 94 %07/02/17 1600 116/57 36.6 ?C (97.9 ?F) Oral 68 16 96 %Pleasant, comfortable, not in acute distress.Awake, alert, oriented times 3.Moves all extremities.SKIN: No rash or lumps.HEENT: Normocephalic, face symmetrical.NECK: Supple, no JVD, no carotid bruit, no thyromegaly.LUNGS: Clear to auscultation bilaterally.CARDIAC: PMI present, RRR, S1 and S2, no S3 or S4, no additional heartsounds or murmurs.ABDOMEN: Soft, nontender, bowel sounds present.EXTREMITIES: No edema.PULSES: Peripheral pulses present.MEDICATIONS:Current hospital medications:vitamins Q-Q-A-sykp-qhiewcub-rwsubm 5,000-60-30 ecxm-mm-ours 1 tablet(PROSIGHT) 1 tablet ORAL BIDpotassium-sodium phosphates 2 Packet (NEUTRA-PHOS,PHOS-NAK) 2 Packet ORALPC and HSmetoprolol tartrate (short acting) 50 mg tab(s) (LOPRESSOR) 50 mg ORAL q 8Hdiltiazem CD 240 mg cap(s) (CARDIZEM CD, CARTIA XT) 240 mg ORAL DAILYfurosemide 40 mg tab(s) (LASIX) 40 mg ORAL DAILYatorvastatin 20 mg tab(s) (LIPITOR) 20 mg ORAL AT BEDTIMEpantoprazole DR 40 mg tab(s) (PROTONIX) 40 mg ORAL BIDipratropium-albuterol 3 mL nebulizer solution (DUONEB) 3 mL INHALATION QIDoxyCODONE IR 5 mg tab(s) (ROXICODONE) 5 mg ORAL q 4 H PRNpill manager critical care unit (patient-specific) 1 Each Miscell. (Med.Supl.;Non-Drugs) PRNDATA:Diagnostic tests reviewed for today's visit:Most recent labsMost recent telemetryPast 72 Hour Labs:Recent Labs 310HB 9.3*GLUC 83BUN 7CREAT 0.68NA 136K 3.4*CHLOR 104CO2 26CA 7.7*Last Lab Drawn:LDL Chol, [place] 110 02/23/2010ssessment/PlanPrinc ipal Problem:Principal Problem: GI bleeding POA: Yes?Assessment AND?Plan: GI signed off. UGI bleed from Antral andprepyloric Kaveh s/p EGD, epi injection. ?S/p ?IR embolization ofgastroduodenal and gastrioepiploic arteries on 06/23/17.?Acute respiratory failure with hypoxia and hypercapnia (HCC) POA: No?Assessment AND?Plan: s/p extubation yesterday. ?Acute blood loss anemia POA: Yes?Assessment AND?Plan: s/p multiple transfusions?New onset ?Atrial fibrillation (HCC) POA: No?Assessment AND?Plan: Persistent new onset atrial fibrillation, he iscurrently in SR with PAC's and PVC's. Cardizem to 240mg QD. ContinueMetoprolol 50mg BID. He is chadvasc of 2 and not on oral ATC thereforeAmiodarone will not be resumed. I'm not sure if at some point he can takeoral ATC safely, It appears that he is having a repeat EGD with Dr. Dominguez in8-10 weeks will confer with GI after that appointmentEP cardiology is signing off.SIGNATURE: Michelle Weeks, MSN, OPTOMETRIC ASSISTANT PATIENT NAME: Cristina JeffreyDATE: July 03, 2017 : 3:18 PM PAGER/CONTACT #: [phone] Normal [facility] Protein mass conc HNO ID: [id number] thor: CANDICE Rosarioervice: [facility] MedicineAuthor Type: PhysicianType: Progress NotesFiled: 07/05/2017 10:29 AMNote Text:DEPARTMENT OF HOSPITAL MEDICINEPROGRESS NOTESubjectivePatient was seen, Denies fever, chills, n, v, cp, sob, palpation, headacheor abdominal painMEDICATIONS: ReviewedObjectivePHYSICAL EXAM: BP 115/57 Pulse 67 Temp (Src) 97.9 (Oral) Resp 18 Ht 5' 10" (1.78m) Wt 191 lb 1.6 oz (86.7kg) SpO2 97% BMI 27.42kg/(m2).GENERAL:Alert, no distress, cooperativeSKIN: Skin color, texture, turgor normal. No rashes or lesions.HEAD/SINUSES: No significant findingsEYES: PERRLA, EOMIEARS: External ears normal, canals clearNOSE: Nares normal. Septum midline.NECK: no JVDBACK: no CVA tendernesLUNGS: bilateral diminished air entryCARDIAC: Normal S1 and S2; irregular heart rateABDOMEN: Abdomen soft, non-tender, BS normal, No masses or organomegalyEXTREMITIES: Extremities normal, no deformities, edema, clubbing or skindiscoloration.NEURO: No focal motor or sensory deficitPULSES: 2+ radial, 2+ carotidDATA:Diagnostic tests reviewed for today's visit:Most recent labs and imaging results.Assessment/PlanPrinci pal Problem: Hemorrhagic shock, resolved (HCC) POA: Yes Assessment AND Plan: HB is stable 9.3, continue to monitor HB and anysigns of bleeding Acute blood loss anemia due to GI bleeding, stable POA: Yes Assessment AND Plan: s/p s/p angio-embolization of gastroduodenal andgastroepiploic arteries and treatment of H. Pylori gastritis as anoutpatient with 2 weeks of PPI BID, doxycycline 100mg BID, andmetronidazole 250mg QID and Pepto-Bismol 2mg PO QID with a repeat EGD in8-[address] Dominguez to document healing of gastric ulcers. Continuewith PPI Atrial fibrillation with rapid ventricular response (HCC) POA: No Assessment AND Plan: continue with cardizem, no OAC for now untilrepeat EGD COPD (chronic obstructive pulmonary disease) (HCC) POA: Yes Assessment AND Plan: stable, continue with Duoneb Hyperlipidemia POA: No Assessment AND Plan: continue with statin Debility, PT/OT, for SNFSIGNATURE: Mirella Puri MD PATIENT NAME: Cristina Jeffrey : 10:41 AM PAGER/CONTACT #: Normal [facility] Phosphorus Bloodon 8 Phosphate 2.7 mg/dL Normal 2.5-4.[address] [facility] Comment on above: Performed By: #### P T ####[facility] [place], [place] [address] Prealbuminon 07-03-2017 Prealbumin 9.4 mg/dL Low 20.0-40.[address] [facility] Comment on above: Performed By: #### P T ####[facility] [place], [place] [address] THERAPY NTon 07-03-2017 THERAPY NT HNO ID: [id number] thor: Ana Cristina (Pt) Nicciervice: Physical TherapyAuthor Type: Physical TherapistType: Therapy (PT/OT/Speech/Resp)Filed: 07/03/2017 4:32 PMNote Text:Physical Therapy TreatmentSERVICE DATE: 07/03/2017SERVICE TIME: 1145 to 1200ROOM: [id number] Discharge Disposition: Subacute/SNFJustification For Post Acute Needs: Anticipate that patient will requiredaily (5x/wk) skilled therapy in a post-acute facility setting at the timeof acute hospital discharge;May not tolerate higher intensityprograming;Willing to participate;Motivated;Living the communitypremorbidly;Good premorbid functional statusRecommended Discharge Equipment: No equipment needs anticipatedPT Recommendations to Nursing: With assist of 2 people (OOB for meals )PT 6 Clicks Score: 17Precautions/Activity Restrictions: Fall RiskIsolation Type: NoneASSESSMENT :Patient progressing well with functional mobility. Able to ambulate withless assist in room today.Tolerated Full Session FatiguePhysical Therapy Problem List: Balance Impaired;Functional MobilityImpairment;Decreased Strength;Decreased Activity TolerancePatient /Caregiver Goals: Go To RehabGoals for Plan of Care:Transfer supine to/from sit with: Minimal AssistanceTransfer sit to/from stand with: Contact Guard AssistanceAmbulate with: Minimal AssistanceDistance: 10Device: Wheeled WalkerGoal: Patient will achieve 4+/5 BLE strength for functional mobilityProgress Toward Goals: Progressing as expectedRehab Potential: GoodPLAN:Treatment Frequency (times per week): 5 (1-5) Current admissionTreatment Interventions: Education;Strengthening;Funct ional MobilityTraining;Balance TrainingPlan of Care developed with: PatientTREATMENT INTERVENTIONS:Therapy Diagnosis: Muscle Weakness (generalized);Unsteadiness onfeet;Abnormalities of gait and mobility-otherInterventions Provided: Therapeutic Exercise (61948)Therapeutic Exercise (04694) Treatment Minutes: 151 unitSkilled Intervention(s): Instruction in therapeutic exercise as follows:Patient completed general strengthening exercises in chair (ankle pump,quad set, gluteal set, heel slide, hip abd/add, straight leg raise, longarc quad, short arc quad, hip adductor squeeze) x 10 reps bilateral lowerextremity, with verbal cueing as needed.Patient performed sit to stand with supervision x5 trials with verbal cuesfor "nose over toes" and hand placement on arm rests. Patient complainedof lower extremity weakness.Ambulated in room with contact guard assist for safety. Verbal cues forposture, gait sequencing and walker negotiation.Total Timed Code Treatment Minutes: 15Total Treatment Time (minutes): 15SUBJECTIVE:Current Hospital Course: Chart reviewed and no significant medical updatesrelevant to therapy were notedPatient Report: Patient sitting in chair upon arrival. Pleasant andagreeable to PT. No complaints of painHome EnvironmentPatient Lives With: Self/AloneAssistance Available: None (friends and family "all old")Entry To Home: No StairsNumber Of Stairs To Bed/Bath: 0Prior Functional Level: Within Functional Limits (drives, indep with ADLs)OBJECTIVE:CURRENT FUNCTIONAL STATUS:Current Functional Mobility Assist Level Additional InformationRollingSupine to SitSit to SupineScootingSit to Stand SupervisionStand to Sit SupervisionBed to Chair Moderate AssistanceToilet/CommodeGait Contact Guard Assistance Gait Device: Wheeled Walker Gait Distance (feet): 15 feet g5KyicfrXgci StepCar TransferGeneral Gait Deviations: Fabiola decreased;Lateral swayincreased;Difficulty changing direction/turning;Non-functio nal gait speedPatient set up in chair with call light and phone in reach on bedsidetable. Advised to use call light and wait for assist to get back to bedPlease see discipline specific clinical documentation flowsheet forcomplete details for this therapy evaluation/treatment.SIGNATAHMET E: CALLI Bee PATIENT NAME: Cristina MooreTE: July 03, 2017 : 12:09 PM PAGER/CONTACT #: [phone] care delivered with direct supervision of PT Clinical Instructorin accordance with treatment plan.I reviewed and agree with the documentation corresponding to this therapyvisit.SIGNATURE: Ana Cristina Walker, PTDATE: July 03, 2017TIME: 4:31 PM Normal [facility] Basic Panelon 07-02-2017 Creatinine 0.60 mg/dL Low 0.67-1.[address] [facility] Comment on above: Performed By: #### P T ####[place] [address] Anion gap 11 mmol/L Normal 8-[address] [facility] Comment on above: Performed By: #### P T ####[place] [address] CO2 23 mmol/L Normal 21-[address] [facility] Comment on above: Performed By: #### P T ####[place] [address] Glucose mass conc 84 mg/dL Normal 70-[address] [facility] Comment on above: Performed By: #### P T ####[place] [address] Urea nitrogen 7 mg/dL Normal 7-[address] [facility] Comment on above: Performed By: #### P T ####[place] [address] Calcium 7.8 mg/dL Low 8.5-10.[address] [facility] Comment on above: Performed By: #### P T ####[place] [address] Chloride 105 mmol/L Normal 98-[address] [facility] Comment on above: Performed By: #### P T ####[place] [address] Potassium molar conc 3.6 mmol/L Normal 3.5-5.1 [facility] Comment on above: Performed By: #### P T ####[place] [address] Sodium 135 mmol/L Low 136-[address] [facility] Comment on above: Performed By: #### P T ####[facility] [place], [place] [address] Hgbon 07-02-2017 Hemoglobin mass conc (Bld) 9.4 g/dL Low 13.7-17.[address] [facility] Comment on above: Performed By: #### P T ####[facility] [place], [place] [address] MDRD GFRon 07-02-2017 eGFR (non-black) mL/min/{1.73_m2} Normal >60mL/m in/ 1.73m2 [facility] Comment on above: Result Comment: If t he patient is , multiply the result by 1.210. Performed By: #### P T ####[address] [address] PROGRESSon 07-02-2017 Protein mass conc HNO ID: [id number] thor: Mirella Puri MDService: [facility] MedicineAuthor Type: PhysicianType: Progress NotesFiled: 07/02/2017 11:51 AMNote Text:DEPARTMENT OF HOSPITAL MEDICINEPROGRESS NOTESubjectivePatient was seen, no acute eventsDenies fever, chills, n, v, cp, sob, palpation, headache or abdominal painMEDICATIONS: ReviewedObjectivePHYSICAL EXAM: BP 148/83 Pulse 70 Temp (Src) 97.7 (Oral) Resp 16 Ht 5' 10" (1.78m) Wt 191 lb 1.6 oz (86.7kg) SpO2 97% BMI 27.42kg/(m2).GENERAL:Alert, no distress, cooperativeSKIN: Skin color, texture, turgor normal. No rashes or lesions.HEAD/SINUSES: No significant findingsEYES: PERRLA, EOMIEARS: External ears normal, canals clearNOSE: Nares normal. Septum midline.NECK: no JVDBACK: no CVA tendernesLUNGS: bilateral diminished air entryCARDIAC: Normal S1 and S2; irregular heart rateABDOMEN: Abdomen soft, non-tender, BS normal, No masses or organomegalyEXTREMITIES: Extremities normal, no deformities, edema, clubbing or skindiscoloration.NEURO: No focal motor or sensory deficitPULSES: 2+ radial, 2+ carotidDATA:Diagnostic tests reviewed for today's visit:Most recent labs and imaging results.Assessment/PlanPrinci pal Problem: Hemorrhagic shock (HCC) POA: Yes Assessment AND Plan: HB is stable 9.4, continue to monitor HB and signsof bleeding Acute blood loss anemia due to GI bleeding POA: Yes Assessment AND Plan: s/p s/p angio-embolization of gastroduodenal andgastroepiploic arteries and treatment of H. Pylori gastritis as anoutpatient with 2 weeks of PPI BID, doxycycline 100mg BID, andmetronidazole 250mg QID and Pepto-Bismol 2mg PO QID with a repeat EGD in8-[address] Dominguez to document healing of gastric ulcers. Continuewith PPI for now Atrial fibrillation with rapid ventricular response (HCC) POA: No Assessment AND Plan: continue with cardizem drip, no OAC for now untilrepeat EGD COPD (chronic obstructive pulmonary disease) (HCC) POA: Yes Assessment AND Plan: stable, continue with Duoneb Hyperlipidemia POA: No Assessment AND Plan: continue with statin Debility, PT/OT, for SNFSIGNATURE: Mirella Puri MD PATIENT NAME: Cristina Jeffrey : 10:41 AM PAGER/CONTACT #: Normal [facility] Phosphorus Bloodon 8 Phosphate 2.3 mg/dL Low 2.5-4.[address] [facility] Comment on above: Performed By: #### P T ####[place] [address] Basic Panelon 07-01-2017 Creatinine 0.72 mg/dL Normal 0.67-1.[address] [facility] Comment on above: Performed By: #### P T ####[place] [address] Anion gap 11 mmol/L Normal 8-[address] [facility] Comment on above: Performed By: #### P T ####[place] [address] CO2 22 mmol/L Normal 21-[address] [facility] Comment on above: Performed By: #### P T ####[address] [place] [address] Urea nitrogen 12 mg/dL Normal 7-[address] [facility] Comment on above: Performed By: #### P T ####[facility] [place] [address] Calcium 7.7 mg/dL Low 8.5-10.[address] [facility] Comment on above: Performed By: #### P T ####[facility] [place] [address] Glucose mass conc 76 mg/dL Normal 70-[address] [facility] Comment on above: Performed By: #### P T ####[place] [address] Chloride 106 mmol/L Normal 98-[address] [facility] Comment on above: Performed By: #### P T ####[place] [address] Potassium molar conc 3.9 mmol/L Normal 3.5-5.1 [facility] Comment on above: Performed By: #### P T ####[place] [address] Sodium 135 mmol/L Low 136-[address] [facility] Comment on above: Performed By: #### P T ####[place] [address] Hgbon 07-01-2017 Hemoglobin mass conc (Bld) 9.0 g/dL Low 13.7-17.[address] [facility] Comment on above: Performed By: #### P T ####[place] [address] MDRD GFRon 07-01-2017 eGFR (non-black) mL/min/{1.73_m2} Normal >60mL/m in/ 1.73m2 [facility] Comment on above: Result Comment: If t he patient is , multiply the result by 1.210. Performed By: #### P T ####[place] [address] PROGRESSon 07-01-2017 Protein mass conc HNO ID: [id number] thor: Moises A SchweikertService: ElectrophysiologyAuthor Type: PhysicianType: Progress NotesFiled: 07/01/2017 12:14 PMNote Text:[facility] Electrophysiology (EP) - [facility] ([facility])EP StaffReviewed telemetry. Arrhythmia seems under appropriate control today. Nonew recommendations. Call with questions/issues.Moises Evans Maikol, [facility] 2017 12:14 PMEP group pager [phone] [facility] Protein mass conc HNO ID: [id number] thor: Mirella Puri, MDService: Hospital MedicineAuthor Type: PhysicianType: Progress NotesFiled: 07/01/2017 10:45 AMNote Text:DEPARTMENT OF HOSPITAL MEDICINEPROGRESS NOTESubjectivePatient was seen, feels fineDenies fever, chills, n, v, cp, sob, palpation, headache or abdominal painMEDICATIONS: ReviewedObjectivePHYSICAL EXAM: BP 118/69 Pulse 71 Temp (Src) 97.7 (Oral) Resp 18 Ht 5' 10" (1.78m) Wt 207 lb 0.2 oz (93.9kg) SpO2 98% BMI 29.70kg/(m2).GENERAL:sleepy but Alert, no distress, cooperativeSKIN: Skin color, texture, turgor normal. No rashes or lesions.HEAD/SINUSES: No significant findingsEYES: PERRLA, EOMIEARS: External ears normal, canals clearNOSE: Nares normal. Septum midline.NECK: no JVDBACK: no CVA tendernesLUNGS: bilateral diminished air entryCARDIAC: Normal S1 and S2; irregular heart rateABDOMEN: Abdomen soft, non-tender, BS normal, No masses or organomegalyEXTREMITIES: Extremities normal, no deformities, edema, clubbing or skindiscoloration.NEURO: No focal motor or sensory deficitPULSES: 2+ radial, 2+ carotidDATA:Diagnostic tests reviewed for today's visit:Most recent labs and imaging results.Assessment/PlanPrinci pal Problem: Hemorrhagic shock (HCC) POA: Yes Assessment AND Plan: HB slightly dropped from yesterday to 9, continueto monitor HB and signs of bleeding Acute respiratory failure in the setting of GI bleeding s/p intubationat the ICU, was extubated, now on RA Acute blood loss anemia due to GI bleeding POA: Yes Assessment AND Plan: s/p s/p angio-embolization of gastroduodenal andgastroepiploic arteries and treatment of H. Pylori gastritis as anoutpatient with 2 weeks of PPI BID, doxycycline 100mg BID, andmetronidazole 250mg QID and Pepto-Bismol 2mg PO QID with a repeat EGD in8-[address] Dominguez to document healing of gastric ulcers. Continuewith PPI for now Atrial fibrillation with rapid ventricular response (HCC) POA: No Assessment AND Plan: continue with cardizem drip, no OAC for now untilrepeat EGD COPD (chronic obstructive pulmonary disease) (HCC) POA: Yes Assessment AND Plan: stable, continue with Duoneb Hyperlipidemia POA: No Assessment AND Plan: continue with statin Debility, PT/OTSIGNATURE: Mirella Puri MD PATIENT NAME: Cristina Jeffrey : 10:41 AM PAGER/CONTACT #: Normal [facility] Phosphorus Bloodon 8 Phosphate 2.3 mg/dL Low 2.5-4.[address] [facility] Comment on above: Performed By: #### P T ####[place] [address] CASE MANAGEMon 06-30-2017 CASE MANAGEM HNO ID: [id number] thor: Lakia (Rn) Mindy RNService: Care ManagementAuthor Type: Registered NurseType: Care Mgt Progress NoteFiled: 06/30/2017 11:34 AMNote Text:CARE MANAGEMENT PROGRESS NOTESERVICE DATE: 06/30/2017SERVICE TIME: 11:31 AM LOS: 7 daysPT recs SNF. I spoke with pt about the recommendations. He will not statehe is agreeable, but states he will be unable to return [place] at [place] andneeds help. I gave him a SNF choice list for Medicare. I asked permissionto call his sister, Crystal , permission not given. He states he willdiscuss with family himself and let me know.SIGNATURE: Lakia Guillen RN PATIENT NAME: Cristina JeffreyDATE: June 30, 2017 : 11:31 AM PAGER/CONTACT #: [phone] [facility] Hgbon 06-30-2017 Hemoglobin mass conc (Bld) 9.4 g/dL Low 13.7-17.[address] [facility] Comment on above: Performed By: #### P T ####[facility] [place], [place] [address] NURSING PROGon 06-30-2017 Protein mass conc HNO ID: [id number] thor: Kapil (Rn) KELLY Ramirezervice: NursingAuthor Type: Registered NurseType: Nursing Progress NoteFiled: 06/30/2017 1:52 AMNote Text:PT HR sustaining in 110-120's maxed out on cardizem gtt. Dr. Nick'binotified and okay with HR. will give 500 cc bolus. Pt voided 100cc of darkurine but was found to have 280ml after bladder scan. Pt expresses no urgeto . MD notified will monitor for further retention. Normal [facility] PROGRESSon 06-30-2017 Protein mass conc HNO ID: [id number] thor: Jackie Banegas CNPService: Pulmonary DiseaseAuthor Type: Nurse PractitionerType: Progress NotesFiled: 06/30/2017 11:48 AMNote Text: At testation signed by Noe Quick at 06/30/2017 12:55 PMPULMONARY PROGRESS NOTEI have reviewed the progress note obtained and documented by the nursepractitioner and I personally participated in the rivera components. I havediscussed the case and management of the patient's care. The following commentsrevise or confirm relevant rivera components of the note.SERVICE DATE: June 30, 2017SERVICE TIME: 12:51 PMAdmission Date: 06/21/2017AGE: 72 year oldLOS: 7 daysVITAL SIGNS (last 24hrs min/max):Temp Av.6 ?C (97.8 ?F) Min: 36.2 ?C (97.2 ?F) Max: 36.7 ?C (98.1 ?F)Pulse Av.9 Min: 68 Max: 154Cuff BP Min: 99/47 Max: 147/84Pain Score: 0/10EXAM:RRRClear to auscultation bilaterally anteriorlyGood bowel sounds, soft, nontender, nondistended.No pedal edema bilaterally.Dry, intact skin with fair tweisr53 hour Intake AND Output:Intake/Output Summary (Last 24 hours) at 06/30/17 1251Last data filed at 06/30/17 1000 Gross per 24 hourIntake 510 mlOutput 1120 mlNet -610 mlINPATIENT MEDICATIONS:Current hospital medications:potassium-sodium phosphates 2 Packet (NEUTRA-PHOS,PHOS-NAK) 2 Packet ORAL PCand HSmetoprolol tartrate (short acting) 50 mg tab(s) (LOPRESSOR) 50 mg ORAL q 8 H[START ON 07/01/2017] diltiazem CD 240 mg cap(s) (CARDIZEM CD, CARTIA XT) 240 mgORAL DAILYfurosemide 40 mg tab(s) (LASIX) 40 mg ORAL DAILYatorvastatin 20 mg tab(s) (LIPITOR) 20 mg ORAL AT BEDTIMEpantoprazole DR 40 mg tab(s) (PROTONIX) 40 mg ORAL BIDipratropium-albuterol 3 mL nebulizer solution (DUONEB) 3 mL INHALATION QIDoxyCODONE IR 5 mg tab(s) (ROXICODONE) 5 mg ORAL q 4 H PRNpill manager critical care unit (patient-specific) 1 Each Miscell. (Med.Supl.;Non-Drugs) PRNAssessment/PlanASSESSMENT: ACTIVE PROBLEM LISTShock (Hcc)Copd (Chronic Obstructive Pulmonary Disease) ([facility])HypertensionHyperlipidem iaGI BleedingAcute Respiratory Failure With Hypoxia and Hypercapnia ([facility])Acute Blood Loss AnemiaHemorrhagic Shock ([facility])HypophosphatemiaAtrial Fibrillation With Rapid Ventricular Response ([facility])Acute hypoxic respiratory failureRecently discontinued alcohol abusePLAN:Doing well on room air.Hemoglobin stable.Continue PPI.Continue bronchodilators.Patient has no need for steroids at this time as the patient has no activebronchospasm currently.Out of bed/increase activity as able.Nothing else to add at this time.Will sign off.SIGNATURE: Noe Quick [facility] RESPIRATORY INSTITUTEDATE of SERVICE: June 30, 2017TIME of SERVICE: 12:51 PM [facility] PROGRESS NOTE CCAGHSSERVICE DATE: June 30, 2017SERVICE TIME: 11:07 AMSubjectivePatient states " I feel pretty good" Patient denies shortness of breath,wheezing, cough, phlegm, chest pain, fevers or chills. Denies N/V/D.Currently on room air SpO2 95%OBJECTIVECurrent Facility-Administered Medications:potassium-sodium phosphates 2 Packet (NEUTRA-PHOS,PHOS-NAK) 2 Packet ORALPC and HS Ja'Far (Res) Alzu'Bi 2 Packet at 06/30/17 09metoprolol tartrate (short acting) 50 mg tab(s) (LOPRESSOR) 50 mg ORAL q 8H Ja'Far (Res) Alzu'Bi 50 mg at 06/30/17 09[START ON 07/01/2017] diltiazem CD 240 mg cap(s) (CARDIZEM CD, CARTIA XT)240 mg ORAL DAILY Giselle (Business Performance Analyst) Croomfurosemide 40 mg tab(s) (LASIX) 40 mg ORAL DAILY Martha (Res) Avalos 40mg at 06/30/17 0905atorvastatin 20 mg tab(s) (LIPITOR) 20 mg ORAL AT BEDTIME Martha (Res)Avalos 20 mg at 06/29/174pantoprazole DR 40 mg tab(s) (PROTONIX) 40 mg ORAL BID Martha (Res)Avalos 40 mg at 06/30/17904ipratropium-albuterol 3 mL nebulizer solution (DUONEB) 3 mL INHALATION QIDTushar (Res) Sonia 3 mL at 06/30/17 0856oxyCODONE IR 5 mg tab(s) (ROXICODONE) 5 mg ORAL q 4 H PRN Douglas (Res)Sonia 5 mg at 06/29/17 0400pill manager critical care unit (patient-specific) 1 Each Miscell. (Med.Supl.;Non-Drugs) Sravani Harper) BhattacharyyaINTAKE AND OUTPUTIntake/Output Summary (Last 24 hours) at 06/30/17 1107Last data filed at 06/30/17 0156 Gross per 24 hourIntake 360 mlOutput 1100 mlNet -740 mlNew Radiology Films: no newNew Micro:Bllod cultures x 2 06/29/2017-No growth at 1 day(s) No growth at 2 day(s) No growth at 3 day(s) Nogrowth at 1 day(s) No growth at 2 day(s) No growth at 3 day(s) No growthat 4 day(s) Preliminary resultNew Labs:ABG:BMP:Glucose (mg/dL)Date 06/29/2017 87 Potassium (mEq/L)Date 06/29/2017 3.3 Sodium (mEq/L)Date 06/29/2017 137 Chloride (mEq/L)Date 06/29/2017 104 CO2 (mEq/L)Date 06/29/2017 26 Creatinine (mg/dL)Date 06/29/2017 0.54 BUN (mg/dL)Date 06/29/2017 15 Anion Gap (no units)Date 06/29/2017 10 Calcium (mg/dL)Date 06/29/2017 7.5 CBC:HGB (g/dL)Date Value06/30/2017 9.403/11/2017 8.603 8.9 Hematocrit (%)Date Value06/29/2017 26.503 27. 24.4 WBC (thou/cmm)Date Value06/29/2017 12.4103 13.2903 11.59 Vital Signs 07/01/1807BP: (!) 99/47 115/66Pulse: 69 68 84 71Resp: 20 20 20 18Temp: 36.6 ?C (97.9 ?F) 36.7 ?C (98.1 ?F)TempSrc: Axillary OralSpO2: 93% 95% 93%Weight:Height:PHYSICAL EXAM:GENERAL: AAOx3 slow to respond to questions, pleasant, resting in bed, NADRESPIRATORY: CTAB. Respirations are even AND unlabored at rest. No wheezing,accessory muscle use, pursed lip breathing or conversational dyspnea.Patient is on Room air SpO2 95%CARDIOVASCULAR: Normal S1S2, RRR. No edema.GI: Abdomen soft, nondistended, nontender, bowel sounds present [id number]: No clubbing or cyanosis Moves all extremities equal x 4?Assessment and Plan:?1) Acute Hypoxic Respiratory failure 2/2 hemorrhagic shock 2/2 #2:Resolved patient hemodynamically stable- s/p extubation 06/27/2017 Stable onRoom air SpO2 95%. Obtain ambulatory SpO2 prior to D/C keep SpO2 >90%.2) GI Bleed 2/2 :GI signed off. UGI bleed from Antral and prepyloric Nichelle/p EGD3) A-Fib w/RVR 2/2 #2: on Cardizem po.4) Reactive leukocytosis- downtrending5) COPD- not in exacerbation: continue with DouNebs6) ETOH abuse: patient quit using ETOH 01/2017- continued cessationdiscussed7) D/c Planning: From pulmonary standpoint stable on room air will signoff call with questions or concerns.SIGNATURE:Jackie Banegas CNP PATIENT NAME:Cristina JeffreyDATE:June 30, 2017 :11:07 AM PAGER/CONTACT #:[phone] Normal [facility] Protein mass conc HNO ID: [id number] thor: Giselle (Business Performance Analyst) CroomService: ElectrophysiologyAuthor Type: Nurse PractitionerType: Progress NotesFiled: 06/30/2017 10:58 AMNote Text:[facility] PROGRESS NOTE EP CARDIOLOGY SERVICESERVICE DATE: 06/30/2017SERVICE TIME: 10:51 AMSubjectiveINTERIM HISTORY: Cristina Jeffrey was transferred to telemetry flooryesterday. He had persistent atrial fibrillation and experienced RVR [id number]'s. He had change in MS and the resident was called. A Cardizem gttwas ordered. He was found to be oriented to person and place. He deniespalpitations, dizziness, syncope, CP, SOB.PHYSICAL EXAM:Body mass index is 29.7 kg/(m2).O2 Therapy: Room AirNo Data RecordedPatient Vitals for the past 24 hrs: BP Temp Temp src Pulse Resp [id number]/30/17 0900 - - - 84 20 -06/30/17 0859 (!) 99/47 36.6 ?C (97.9 ?F) Axillary 68 20 95 %06/30/17 0858 - - - 69 20 93 %06/30/17 0300 144/71 36.6 ?C (97.9 ?F) Oral 101 22 -06/30/17 0045 147/84 - - - - -06/30/17 0026 116/73 - - - - -06/30/17 0000 127/73 - - (!) 129 - -06/29/172031 127/73 - - (!) 130 - -06/29/172028 - - - 115 22 -06/29/172018 - - - (!) 121 22 -06/29/17 1929 133/80 36.5 ?C (97.7 ?F) Oral (!) 136 22 97 %06/29/17 1816 143/79 36.5 ?C (97.7 ?F) Oral (!) 142 23 96 %06/29/17 1700 144/100 - - (!) 133 22 97 %06/29/17 1606 - - - (!) 154 17 97 %06/29/17 1600 126/91 36.2 ?C (97.2 ?F) - (!) 145 28 97 %06/29/17 1500 137/89 - - (!) 135 25 98 %06/29/17 1413 - - - - 16 -06/29/17 1400 130/94 - - (!) 122 23 97 %06/29/17 1300 113/72 - - (!) 133 23 96 %06/29/17 1200 125/84 36.3 ?C (97.3 ?F) - (!) 136 25 98 %06/29/17 1100 129/84 - - (!) 135 19 96 %Pleasant, comfortable, not in acute distress.Awake, alert, oriented times 3.Moves all extremities.SKIN: No rash or lumps.HEENT: Normocephalic, face symmetrical.NECK: Supple, no JVD, no carotid bruit, no thyromegaly.LUNGS: Clear to auscultation bilaterally.CARDIAC: Rhythm: regular rate and rhythm, Rate: normal, S1: normalintensity, S2: normal intensity, No murmur. + extra systoles.ABDOMEN: Soft, nontender, bowel sounds present.EXTREMITIES: No edema.PULSES: Peripheral pulses present.MEDICATIONS:Current hospital medications:potassium-sodium phosphates 2 Packet (NEUTRA-PHOS,PHOS-NAK) 2 Packet ORALPC and HSmetoprolol tartrate (short acting) 50 mg tab(s) (LOPRESSOR) 50 mg ORAL q 8H[START ON 07/01/2017] diltiazem CD 240 mg cap(s) (CARDIZEM CD, CARTIA XT)240 mg ORAL DAILYfurosemide 40 mg tab(s) (LASIX) 40 mg ORAL DAILYatorvastatin 20 mg tab(s) (LIPITOR) 20 mg ORAL AT BEDTIMEpantoprazole DR 40 mg tab(s) (PROTONIX) 40 mg ORAL BIDipratropium-albuterol 3 mL nebulizer solution (DUONEB) 3 mL INHALATION QIDoxyCODONE IR 5 mg tab(s) (ROXICODONE) 5 mg ORAL q 4 H PRNpill manager critical care unit (patient-specific) 1 Each Miscell. (Med.Supl.;Non-Drugs) PRNDATA:Diagnostic tests reviewed for today's visit:Most recent labsMost recent telemetryPast 72 Hour Labs:Recent Labs 0 06/30/1803045258UYDIL -- 0.024 -- --WBC -- -- 12.41* --RBC -- -- 2.94* --HB 9.4* -- 8.6* --HCT -- -- 26.5* --MCV -- -- 90.1 --MCH -- -- 29.3 --MCHC -- -- 32.5 --PLT -- -- 311 --MPV -- -- 9.7 --GLUC -- -- 87 100*BUN -- -- 15 13CREAT -- -- 0.54* 0.53*NA -- -- 137 135*K -- -- 3.3* 3.5CHLOR -- -- 104 102CO2 -- -- 26 28CA -- -- 7.5* 7.4*MG -- -- -- 2.2Last Lab Drawn:LDL Chol, Mabel 110 02/23/2010ssessment/PlanPrinc ipal Problem: GI bleeding POA: Yes?Assessment AND?Plan: GI signed off. UGI bleed from Antral andprepyloric Kaveh s/p EGD, epi injection. ?S/p ?IR embolization ofgastroduodenal and gastrioepiploic arteries on 06/23/17.?Acute respiratory failure with hypoxia and hypercapnia (HCC) POA: No?Assessment AND?Plan: s/p extubation yesterday. ?Acute blood loss anemia POA: Yes?Assessment AND?Plan: s/p multiple transfusions?New onset ?Atrial fibrillation (HCC) POA: No?Assessment AND?Plan: Persistent new onset atrial fibrillation, he iscurrently in SR with PAC's. When in afib HR elevated 140 bpm. I'veincreased the Cardizem to 240mg QD. Continue Metoprolol 50mg BID. He ischadvasc of 2 and not on oral ATC therefore Amiodarone will not beresumed. I'm not sure if at some point he can take oral ATC safely, Itappears that he is having a repeat EGD with Dr. Dominguez in 8-10 weeks willconfer with GI after that appointmentSIGNATURE: Michelle Weeks, MSN, OPTOMETRIC ASSISTANT PATIENT NAME: Cristina MooreTE: June 30, 2017 : 10:51 AM PAGER/CONTACT #: [phone] [facility] Protein mass conc HNO ID: [id number] thor: Mirella Puri, MDService: [facility] MedicineAuthor Type: PhysicianType: Progress NotesFiled: 06/30/2017 10:57 AMNote Text:[facility] MEDICINEPROGRESS NOTESubjectivePatient was seen, sleepy but responding to questions appropriatelyDenies fever, chills, n, v, cp, sob, palpation, headache or abdominal painHad a BMMEDICATIONS: ReviewedObjectivePHYSICAL EXAM: BP 99/47 Pulse 84 Temp (Src) 97.9 (Axillary) Resp 20 Ht 5' 10" (1.78m) Wt 207 lb 0.2 oz (93.9kg) SpO2 95% BMI 29.70kg/(m2).GENERAL:sleepy but Alert, no distress, cooperativeSKIN: Skin color, texture, turgor normal. No rashes or lesions.HEAD/SINUSES: No significant findingsEYES: PERRLA, EOMIEARS: External ears normal, canals clearNOSE: Nares normal. Septum midline.NECK: no JVDBACK: no CVA tendernesLUNGS: bilateral diminished air entryCARDIAC: Normal S1 and S2; irregular heart rateABDOMEN: Abdomen soft, non-tender, BS normal, No masses or organomegalyEXTREMITIES: Extremities normal, no deformities, edema, clubbing or skindiscoloration.NEURO: No focal motor or sensory deficitPULSES: 2+ radial, 2+ carotidDATA:Diagnostic tests reviewed for today's visit:Most recent labs and imaging results.Assessment/PlanPrinci pal Problem: Hemorrhagic shock (HCC) POA: Yes Assessment AND Plan: stable now, continue to monitor HB and signs ofbleeding Acute respiratory failure in the setting of GI bleeding s/p intubationat the ICU, was extubated, now on RA Acute blood loss anemia due to GI bleeding POA: Yes Assessment AND Plan: s/p s/p angio-embolization of gastroduodenal andgastroepiploic arteries and treatment of H. Pylori gastritis as anoutpatient with 2 weeks of PPI BID, doxycycline 100mg BID, andmetronidazole 250mg QID and Pepto-Bismol 2mg PO QID with a repeat EGD in8-[address] Dominguez to document healing of gastric ulcers. Continuewith PPI for now Atrial fibrillation with rapid ventricular response (HCC) POA: No Assessment AND Plan: continue with cardizem drip COPD (chronic obstructive pulmonary disease) (HCC) POA: Yes Assessment AND Plan: stable, continue with Duoneb Hyperlipidemia POA: No Assessment AND Plan: continue with statinSIGNATURE: Mirella Puri MD PATIENT NAME: Cristina Jeffrey : 10:41 AM PAGER/CONTACT #: [facility] Protein mass conc HNO ID: [id number] thor: Ella (Res) Arnoldervice: Critical CareAuthor Type: ResidentType: Progress NotesFiled: 06/29/2017 10:38 PMNote Text:I was called by RN at 10:13 to evaluate the patient for A.fib with RVR([id number]) with change in the mental status. Patient is AANDOx2. He knows thedate but not the place. He follows command with non-focal neurologicalexam. BP remained stable. Patient was given multiple doses of IV lopressorwith only short term relieve of HR. It is possible that the change inmental status is related to ICU delirium as the patient has been intubatedin the ICU with prolonged coarse. He is stable for medical floor. We willstart Cardizem drip with loading dose.Please call as if you have any questions.Ella Frost M.D.[email or web address] [id number] [facility] Phosphorus Bloodon 8 Phosphate 1.7 mg/dL Critically low 2.5-4.[address] [facility] Comment on above: Performed By: #### P T ####[facility] [place] [id number] THERAPY NTon 06-30-2017 THERAPY NT HNO ID: [id number] thor: Colette (Otr/L) Darcie Fried: Occupational TherapyAuthor Type: Occupational TherapistType: Therapy (PT/OT/Speech/Resp)Filed: 06/30/2017 4:11 PMNote Text:Occupational Therapy EvaluationSERVICE DATE: 06/30/2017SERVICE TIME: 1530 to 1555ROOM: [id number] Discharge Disposition: Subacute/SNFJustification For Post Acute Needs: Good premorbid functional status;Goodsitting tolerance;Living the community premorbidly;Motivated;Willing toparticipate;Anticipate that patient will require daily (5x/wk) skilledtherapy in a post-acute facility setting at the time of acute hospitaldischargeOT Recommendations to Nursing: With assist of 1 person (Up to BSC (Min A)with wheeled walker; OOB for meals)OT 6 Clicks Score: 15Precautions/Activity Restrictions: Fall RiskASSESSMENT:OT Evaluation Moderate Complexity: Pt was intubated/extubated during thisadmissionOccupational Profile - Extended review of patient's medical recordcompleted including patient's physical, cognitive, and psycho-socialhistory (please see current hospital course of evaluation).Occupational Performance - Pt presents with mod deficits in grooming, UEbathing/dressing, LE bathing/dressing, functional transfers, functionalmobility, decreased safety awareness, impaired cognitionComplexity in Clinical Decision Making - The extent of clinical reasoningwas moderate, several treatment options present for the patient, need formodification during the evaluation was minimal/moderateTolerance Limited By Fatigue;PainOccupational Therapy Problem List: Cognitive Deficit;EducationDeficit;Safe ty Deficits;Impaired Self Care;Decreased ActivityTolerance;Decreased Strength;Functional Mobility Impairment;BalanceImpairedPat ient /Caregiver Goals: Go HomeGoals for Plan of Care:Grooming with: Minimal Assistance (partial standing)Upper Body Bathing with: Set UpUpper Body Dressing with: Set UpLower Body Bathing with: Minimal AssistanceLower Body Dressing with: Minimal AssistanceChair Transfer with: Contact Guard AssistanceToilet Transfer with: Contact Guard Assistance (BSC)Tolerate (minutes of functional activity): 15Functional Activity with: Contact Guard AssistanceAdditional Goal 1: Pt will demo good safety with ADLs and functionalmobilityAdditional Goal 2: Pt will maximize B UE strength/enduranceDemonstrate Competence With Education with: IndependentRehab Potential: ExcellentPLAN:Treatment Frequency (times per week): 3 (1-3) Current admissionTreatment Interventions: Education;Self Care / HomeManagement;Strengthening; Functional Mobility Training;Cognitive TrainingPlan of Care developed with: PatientTREATMENT INTERVENTIONS:Therapy Diagnosis: Reduced mobility-other;Decreased activities of dailyliving (ADL);Muscle Weakness (generalized);Unsteadiness on feet;Signs andSymptoms Involving Cognitive Functions and AwarenessInterventions Provided: Evaluation;Self Chcf Management (50404)$ Evaluation-Moderate (45956) Billed Units: 1 unitSelf Chcf Management (58255) Treatment Minutes: 91 unitSkilled Intervention(s):Edu pt on log-roll technique to increase bed mobility and decreaseabdominal pain; pt completed with mod A supine to sit edge of bedtransfer. Provided fall guarding assistance during functional mobility(4-5 small side steps toward HOB for repositioning) due toweakness/fatigue. Facilitated EOB ADLs (oral hygiene, face washing, anddeodorant application) to increase ADL participation, increase activitytolerance in unsupported sitting. Provided set up assistance, min verbalcues for safety to safely complete ADLs. Instructed patient on importanceof continued ADL completion while in the hospital to increase ADLparticipation and activity tolerance. Edu pt on fall preventionstrategies, reinforcing the use of their call light / up with assistancefor functional mobility; Pt left in bed with bed alarm activated, calllight in reach upon OT exit.Total Timed Code Treatment Minutes: 9Total Treatment Time (minutes): 25FUNCTIONAL G CODE:OT 6 Clicks Score: 15 (06/30/171529)Self Care Current Status (G8987): CK (06/30/17 1530)Self Care Goal Status (G8988): CK (06/30/17 153)Based on clinical assessment and the score on the 6 Clicks FunctionalAssessment Tool, the G code and corresponding severity modifiers aredocumented above.SUBJECTIVE:Current Hospital Course: Chart [id number] yo WM w/ hx sig for COPD, HTN, HL, and alcohol abuse admitted w/ GIbleed c/b hemorrhagic shockacute brisk upper gastrointestinal bleeding and underwentesophagogastroduoden oscopy with Endoclip placement x4, epinephrineinjection, biopsies of the gastric antrum and body for H. PyloriNo past medical history on file.No past surgical history on file.Patient Report: Pt supine on arrival, agreeable to session. C.o 5/10 painin abdomen. Pt seems agreeable to rehab at d/c. Pt fatigued quickly duringsession.Home EnvironmentPatient Lives With: Self/AloneAssistance Available: None (friends and family "all old")Entry To Home: No StairsNumber Of Stairs To Bed/Bath: 0Prior Functional Level: Within Functional Limits (drives, indep with ADLs)OBJECTIVE:Communication Deficits: Other: See Comment (raspy voice, min difficult tounderstand)Orientation Deficits: Not oriented to PlaceResponsiveness: AlertFollows Commands: 1-step CommandsAttention Deficits: DistractibleMemory Deficits: Short TermExecutive Function Deficits: Safety AwarenessSafety Awareness Deficit: Minimal impairmentCURRENT FUNCTIONAL STATUS:Current Activities of Daily Living Assist LevelFeeding Set UpGrooming Moderate Assistance (seated only at this time)Bathing Upper Body Minimal AssistanceBathing Lower Body Moderate AssistanceDressing Upper Body Minimal AssistanceDressing Lower Body Moderate AssistanceToileting Moderate AssistanceFunctional Mobility Assist LevelRollingSupine to Sit Moderate AssistanceSit to Supine Minimal AssistanceScooting Contact Guard AssistanceSit to Stand Moderate AssistanceStand to Sit Minimal AssistanceBed to ChairToilet/CommodeFunctional Mobility Minimal Assistance Wheeled WalkerHand Dominance: RightRange Of Motion: Within Functional LimitsStrength: Within Functional Limits ExceptLocation Strength Not WFL: Upper ExtremityLeft Upper Extremity Strength: 4/5Right Upper Extremity Strength: 4/5Balance: Dynamic StandingDynamic Standing Balance: Minimal AssistanceActivity Tolerance: Sitting Activity;Standing ActivitySitting Activity: EOB ADLsSitting Activity Tolerance (in minutes): 10Standing Activity: Functional mobility in room (side steps toward HOB)Standing Activity Tolerance (in minutes): 3Please see discipline specific clinical documentation flowsheet forcomplete details for this therapy evaluation/treatment.JOLEEN E: Colette Fried OTR/L PATIENT NAME: Cristina MooreTE: June 30, 2017 : 4:05 PM PAGER: [phone] Normal [facility] Basic Panelon 06-29-2017 Creatinine 0.54 mg/dL Low 0.67-1.[address] [facility] Comment on above: Performed By: #### R BCPS ####[facility] [place], [place] [address] Glucose mass conc 87 mg/dL Normal 70-[address] [facility] Comment on above: Performed By: #### R BCPS ####[facility] [place] [address] Urea nitrogen 15 mg/dL Normal 7-[address] [facility] Comment on above: Performed By: #### R BCPS ####[facility] [place], [place] [address] Anion gap 10 mmol/L Normal 8-[address] [facility] Comment on above: Performed By: #### R BCPS ####[address] [address] Calcium 7.5 mg/dL Low 8.5-10.[address] [facility] Comment on above: Performed By: #### R BCPS ####[place] [address] CO2 26 mmol/L Normal 21-[address] [facility] Comment on above: Performed By: #### R BCPS ####[place] [address] Chloride 104 mmol/L Normal 98-[address] [facility] Comment on above: Performed By: #### R BCPS ####[place] [address] Potassium molar conc 3.3 mmol/L Low 3.5-5.1 [facility] Comment on above: Performed By: #### R BCPS ####[place] [address] Sodium 137 mmol/L Normal 136-[address] [facility] Comment on above: Performed By: #### R BCPS ####[place] [address] Hemogramon 06-29-2017 Erythrocyte distribution width Auto Ratio (RBC) 15.3 % High 11.6-14.[address] [facility] Comment on above: Performed By: #### R BCPS ####[facility] [place] [address] Erythrocytes (RBC) 2.94 mil/cmm Low 4.63-6.08 [facility] Comment on above: Performed By: #### R BCPS ####[place] [address] Hematocrit (HCT) 26.5 % Low 40.1-51.[address] [facility] Comment on above: Performed By: #### R BCPS ####[place] [address] Hemoglobin mass conc (Bld) 8.6 g/dL Low 13.7-17.[address] [facility] Comment on above: Performed By: #### R BCPS ####[place] [address] MCH 29.3 pg Normal 25.7-32.[address] [facility] Comment on above: Performed By: #### R BCPS ####[place] [address] MCHC mass conc (RBC) 32.5 % Normal 32.3-36.5 [facility] Comment on above: Performed By: #### R BCPS ####[place] [address] MCV 90.1 fL Normal 83.2-95.[address] [facility] Comment on above: Performed By: #### R BCPS ####[place] [address] Platelet mean volume (PMV) 9.7 fL Normal 8.7-12.[address] [facility] Comment on above: Performed By: #### R BCPS ####[place] [address] Platelets 311 thou/cmm Normal 141-[address] [facility] Comment on above: Performed By: #### R BCPS ####[place] [address] RDW SD 48.6 fl High 36.1-45.[address] [facility] Comment on above: Performed By: #### R BCPS ####[facility] [place], [place] [address] WBC (Leukocytes) 12.41 thou/cmm High 4.23-9.07 [facility] Comment on above: Performed By: #### R BCPS ####[facility] [place], [place] [address] Ionized Calciumon 06-29-2017 Ionized Ca,PH7.4 4.15 mg/dL Low 4.36-4.[address] [facility] Comment on above: Performed By: #### P T ####[address] [address] Ionized Calcium 3.99 mg/dL Low 4.43-4.[address] [facility] Comment on above: Performed By: #### P T ####[address] [address] pH of blood 7.476 [pH] High 7.320-7.[address] [facility] Comment on above: Performed By: #### P T ####[address] [address] MDRD GFRon 06-29-2017 eGFR (non-black) mL/min/{1.73_m2} Normal >60mL/m in/ 1.73m2 [facility] Comment on above: Result Comment: If t he patient is , multiply the result by 1.210. Performed By: #### R BCPS ####[place] [id number] NURSING PROGon 06-29-2017 Protein mass conc HNO ID: [id number] thor: Kapil (Rn) KELLY Ramirezervice: NursingAuthor Type: Registered NurseType: Nursing Progress NoteFiled: 06/29/2017 10:02 PMNote Text: Pt HR in 130-140's afib. Notified MICU dental internship. Gave 5mg IV lopressor over5 min, then 2.5 mg IV lopressor after HR remained elevated. BP remainsstable. HR now in 120's and patient is otherwise asymptomatic. Spoke withICU resident and will monitor for HR sustained in 140's. Normal [facility] Protein mass conc HNO ID: [id number] thor: Adriana Spear) Sheryl Joshiice: (none)Author Type: Registered NurseType: Nursing Progress NoteFiled: 06/29/2017 6:15 PMNote Text: Nursing Progress NotePatient Name: Cristina LeeN: [id number] Location: [place] [address]/[place] [address]*____ Transfer Note:Patient transferred into room/unit 4206 via bed.This note was completed by: Adriana Joshi RN [facility] Protein mass conc HNO ID: [id number] thor: Adriana Spear) Sheryl Joshiice: (none)Author Type: Registered NurseType: Nursing Progress NoteFiled: 06/29/2017 5:22 PMNote Text: Nursing Progress NotePatient Name: Cristina LeeN: [id number] Location: [place] [address]*____ Report called to RN on 4200.This note was completed by: Adriana Joshi RN [facility] Protein mass conc HNO ID: [id number] thor: Adriana Spear) Sheryl Joshiice: (none)Author Type: Registered NurseType: Nursing Progress NoteFiled: 06/29/2017 10:43 AMNote Text: Nursing Progress NotePatient Name: Cristina LeeN: [id number] Location: [place] [address]*____ Rounds with attending, RN, residents, and pharm D.This note was completed by: Adriana Joshi RN [facility] NUTRITIONon 06-29-2017 NUTRITION HNO ID: [id number] thor: Nishi Matias RDService: Nutrition TherapyAuthor Type: Registered DietitianType: NutritionFiled: 06/29/2017 4:02 PMNote Text:NUTRITION THERAPY PROGRESS NOTESERVICE DATE: 06/29/2017SERVICE TIME: 1400RECOMMENDED DIAGNOSIS: NO MALNUTRITION IDENTIFIED based on no significantwt or appetite changes per ptNUTRITION CARE PLANPt seen for f/uProblem, Etiology and Signs/Symptoms:Suboptimal protein/energy intake related to GIB as evidenced by activebleeding, EGD results, and current state of hemorrhagic shock.?Intervention:Monitor po intake with recent diet transition to Dental soft as his intakewith liquids where suboptimalMonitor need for more of a modified diet d/t poor dentition.Coordination of Care:d/w rnMonitor and Evaluation:Goal: Meet >75% of estimated needsDischarge Nutrition Recommendations:To be determinedPer HPI: Per HPI: Cristina Jeffrey is a 71 year old with a history of COPD,HTN, HLD, and a questionable history of alcohol abuse [place] [facility] who received a breathing treatment and then becameincreasingly altered. He waas?found to be AANDOx1, hypotensive and believedto be in?hypovolemic/hemorrhagic shock from a GI bleed. He received 2L NSand 1 unit of pRBC. He has no active signs of bleeding, but a recenthistory of melena. ?s/p egd with multiple ulcers s/p clipping. Recentrebleeding noted. GI rest and observation for now.?Interval History: Extubated and tf's dc'd(rec'd <24hrs of feeds). Dietadvance per speech without s/s active bleeding.Admission Weight: 96 kg (211 lb 10.3 oz)Current Weight: 93.9 kg (207 lb 0.2 oz)Body mass index is 29.7 kg/(m2). overweightCurrent Facility-Administered Medications:metoprolol tartrate (short acting) 50 mg tab(s) (LOPRESSOR) 50 mg ORAL q 8Hdiltiazem CD 120 mg cap(s) (CARDIZEM CD, CARTIA XT) 120 mg ORAL DAILYpotassium-sodium phosphates 2 Packet (NEUTRA-PHOS,PHOS-NAK) 2 Packet ORALPC and HSfurosemide 40 mg tab(s) (LASIX) 40 mg ORAL DAILYipratropium-albuterol 3 mL nebulizer solution (DUONEB) 3 mL INHALATION QIDoxyCODONE IR 5 mg tab(s) (ROXICODONE) 5 mg ORAL q 4 H PRNpill manager critical care unit (patient-specific) 1 Each Miscell. (Med.Supl.;Non-Drugs) PRNpotassium chloride 80-120 mEq oral liquid 80-120 mEq ORAL/FEEDING TUBE PRNpotassium chloride iv piggyback 20 mEq in sterile water 100 mL 60-120 mEqINTRAVENOUS PRNmagnesium sulfate in water 2 g in sterile water 50 ml 2 g INTRAVENOUS PRNcalcium gluconate 4 g in NaCl 0.9% 250 mL 4 g INTRAVENOUS PRNIntake/Output 06/25/17 0700 - 06/26/17 0659 06/26/17 0700 - 06/27/17 0659 124355 - 06/28/17 0659 06/28/17 0700 - 06/29/17 0659 06/29/17 0700 -06/30/17 0659 Intake (ml) 2936.1 2823.7 1659.1 1290 480 Output (ml) 1190 1051 3780 3855 930 Net (ml) 1746.1 1772.7 -2120.9 -2565 -450MNT Billing Type: Re-assess/15 min 2 unitsSIGNATURE: Nishi Matias RD PATIENT NAME: Cristina JeffreyDATE: June 29, 2017 : 3:53 PM PAGER: [phone] [facility] PROGRESSon 06-29-2017 Protein mass conc HNO ID: [id number] thor: Pilar Lemon: Critical CareAuthor Type: PhysicianType: Progress NotesFiled: 06/29/2017 1:30 PMNote Text:Please link this note to the resident's note completed on June 29, 2017.Impression/Recommendatio [facility] STAFF PHYSICIAN NOTE OF PERSONAL INVOLVEMENT IN CAREI have reviewed the note obtained and documented by the resident and Ipersonally participated in the rivera components. I have discussed the caseand management of the patient's care. The following comments revise orconfirm relevant rivera components of the note.I have personally seen and examined the patient.Interval findings:Awake, following commands, AANDO x 3 for me.Feels ab pain improvedAfib RVR this AM, but started po meds increased (still waiting). BP stableAdequate UOPNo further bleeding, tolerating poConstitutional: Vitals-reviewed and noted above. General appearance- NAD,conversant; hoaresness improvingEyes: no conjunctival injectionENT: gross hearing intactNeck: UnremarkableCardiovascular: RRR w/o murmursRespiratory: No wheezes. Crackles improved. No accessory muscle use. Goodeffort. On RA.GI/Abdominal: soft, NT, distended, BS+Skin: normal temperature, no rashesExt: no edema, peripheral pulses presentPsych: appropriate affect, alert and oriented x person, place and time,cooperative and follows commandsNeuro: gross sensation intact, EOMI, moving all extremities Data: All data reviewed. All diagnostic tests, including labs/specimensand imaging, were personally reviewed by me.IMPRESSION/PLAN:The patient has the following organ/system impairment(s) including acuteor chronic illnesses that may pose a threat to bodily function:71 yo WM w/ hx sig for COPD, HTN, HL, and ?alcohol abuse admitted w/ GIbleed c/b hemorrhagic shock and Afib w/ RVR.??# Acute hypoxic failure in s/o hemorrhagic shock; liberated from vent on06/27/17 ; adequate saturations on RA w/o distress# A.fib with RVR related to acute anemia and acute illness- still w/ RVR,but BP stable# Reactive leukocytosis- downtrending# Acute severe blood loss anemia and hemorrhagic shock at presentation;s/p 12?units of PRBC?transfusion- shock resolved and Hb stable# UGIB; PUD; s/p angio-embolization of gastroduodenal and gastroepiploicarteries# + H. Pylori associated gastritis/PUD# Mild thrombocytopenia# COPD- not in exacerbation# Hypophosphatemia ?# Hypocalcemia??Recs:- Will restart home lasix; will start 40mg po daily (home dose 40mg bid)- Daily BMP, Mg, phos; replete lytes- EP recs appreciated. Started on diltiazem CD 120mg and metoprololtartrate 50mg q8h- D/c miranda for voiding trial; watch for urinary retention- Start po K phos- Monitor WBC, if fever or worsening secretions, reculture and startempiric Abx- Per GI, can treat H.pylori as outpatient w/ 2 weeks of PPI BID,doxycycline 100 mg BID, metronidazole 250 mg po QID and Peptobismal 2 poQID.- Hb checks daily; transfuse as needed for Hb <7- c/w PPI BID; change to po- Cont standing BDs; return to home symbicort on discharge- Has been of AC in view of bleed; Will discuss with GI if ok to at leaststart DVT prophy w/ lovenox- Advance diet as tolerated- SCDs- IS- PT/OT- Pain control w/ prn oxycodone- Try to obtain PIV to remove CVC (IJ)Dispo: stable to transfer to cardiac floor w/ telemetry (4200).?Discussed with Registered Nurse, Pharmacisit and Resident.SIGNATURE: MAICO Rome INSTITUTEDATE of SERVICE: June 29, 2017TIME of SERVICE: 10:07 AM Normal [facility] Protein mass conc HNO ID: [id number] thor: Giselle ([facility]) CroomService: ElectrophysiologyAuthor Type: Nurse PractitionerType: Progress NotesFiled: 06/29/2017 10:02 AMNote Text:[facility] PROGRESS NOTE EP CARDIOLOGY SERVICESERVICE DATE: 06/29/2017SERVICE TIME: 9:51 AMSubjectiveINTERIM HISTORY: Cristina Jeffrey is laying in bed, he denies CP,palpitations, dizziness, syncope. He has DOEObjectivePHYSICAL EXAM:Body mass index is 29.7 kg/(m2).O2 Therapy: Room AirNo Data RecordedPatient Vitals for the past 24 hrs: BP Temp Temp src Pulse Resp SpO2 Nlylym00/08/18 0923 - - - (!) 130 20 - -06/29/17 0900 129/71 - - (!) 135 25 95 % -06/29/17 0800 112/79 - - (!) 134 25 99 % -06/29/17 0647 - - - 111 18 94 % -06/29/17 0600 129/75 - - (!) 123 20 96 % -06/29/17 0532 - - - (!) 134 17 99 % -06/29/17 0500 140/81 - - (!) 136 25 94 % -06/29/17 0400 138/89 36.1 ?C (97 ?F) Axillary (!) 133 22 90 % 93.9 kg (207lb 0.2 oz)06/29/17 0300 122/108 - - (!) 122 21 94 % -06/29/17 0200 120/81 - - (!) 133 24 95 % -06/29/17 0100 109/84 - - (!) 132 24 94 % -06/29/17 0000 129/77 36.8 ?C (98.2 ?F) Axillary (!) 123 24 95 % -06/28/17 2300 120/72 - - (!) 130 22 95 % -06/28/17 2200 123/76 - - (!) 123 20 98 % -06/28/17 2100 112/92 - - (!) 122 22 98 % -06/28/17 2000 113/72 36.7 ?C (98.1 ?F) Axillary (!) 129 22 97 % -06/28/17 1915 - - - (!) 129 18 100 % -06/28/17 1900 101/80 - - (!) 122 24 97 % -06/28/17 1830 - - - (!) 132 26 98 % -06/28/17 1800 125/64 - - (!) 126 27 97 % -06/28/17 1703 110/76 - - (!) 129 - - -06/28/17 1700 110/76 - - 118 24 97 % -06/28/17 1630 - 37.2 ?C (99 ?F) Axillary (!) 131 26 97 % -06/28/17 1600 106/77 - - (!) 131 28 97 % -06/28/17 1530 - - - (!) 121 24 97 % -06/28/17 1518 - - - 117 20 99 % -06/28/17 1510 - - - (!) 124 28 99 % -06/28/17 1500 - - - (!) 124 29 98 % -06/28/17 1440 122/82 - - (!) 124 28 98 % -06/28/17 1430 - - - (!) 125 28 98 % -06/28/17 1400 109/80 - - (!) 123 27 99 % -06/28/17 1330 - - - 118 24 98 % -06/28/17 1300 108/71 - - (!) 123 29 99 % -06/28/17 1245 125/70 - - (!) 125 - - -06/28/17 1215 - 36.9 ?C (98.4 ?F) Axillary (!) 147 29 97 % -06/28/17 1214 141/99 - - (!) 150 - - -06/28/17 1210 - - - (!) 144 29 100 % -06/28/17 1202 - - - (!) 132 30 98 % -06/28/17 1200 141/99 - - (!) 141 25 100 % -06/28/17 1132 137/77 - - 82 - - -06/28/17 1100 137/77 - - 95 30 99 % -06/28/17 1050 - - - 89 25 99 % -06/28/17 1025 - - - 98 27 98 % -06/28/17 1018 - - - 89 28 98 % -06/28/17 1008 - - - 101 30 97 % -06/28/17 1000 165/82 - - 98 27 98 % -Pleasant, comfortable, not in acute distress.Awake, alert, oriented times 3.Moves all extremities.SKIN: No rash or lumps.HEENT: Normocephalic, face symmetrical.NECK: Supple, no JVD, no carotid bruit, no thyromegaly.LUNGS: Clear to auscultation bilaterally.CARDIAC: Rhythm: irregularly irregular, Rate: tachycardia, S1: normalintensity, S2: normal intensity, No murmurABDOMEN: Soft, nontender, bowel sounds present.EXTREMITIES: No ulcers, trace LE edema bilatPULSES: Peripheral pulses present.MEDICATIONS:Current hospital medications:potassium phosphate 45 mmol in NaCl 0.9% 250 mL 45 mmol INTRAVENOUS ONCEipratropium-albuterol 3 mL nebulizer solution (DUONEB) 3 mL INHALATION QIDoxyCODONE IR 5 mg tab(s) (ROXICODONE) 5 mg ORAL q 4 H PRNfentaNYL 50 mcg/mL 25 mcg injection (SUBLIMAZE) 25 mcg INTRAVENOUS q 2 HPRNmetoprolol tartrate (short acting) 25 mg tab(s) (LOPRESSOR) 25 mg ORAL q 8Hpill manager critical care unit (patient-specific) 1 Each Miscell. (Med.Supl.;Non-Drugs) PRNpantoprazole 40 mg injection (PROTONIX) 40 mg INTRAVENOUS BID AC(0600/1599)potassium chloride 80-120 mEq oral liquid 80-120 mEq ORAL/FEEDING TUBE PRNpotassium chloride iv piggyback 20 mEq in sterile water 100 mL 60-120 mEqINTRAVENOUS PRNmagnesium sulfate in water 2 g in sterile water 50 ml 2 g INTRAVENOUS PRNcalcium gluconate 4 g in NaCl 0.9% 250 mL 4 g INTRAVENOUS PRNDATA:Diagnostic tests reviewed for today's visit:Most recent labsMost recent telemetryPast 72 Hour Labs:Recent Labs 06/28/1814TROPI -- -- 0.064* -- --DIGOXIN -- -- -- -- 0.79*WBC 12.41* -- -- < > 11.59*RBC 2.94* -- -- < > 2.75*HB 8.6* -- -- < > 8.0*HCT 26.5* -- -- < > 24.4*MCV 90.1 -- -- < > 88.7MCH 29.3 -- -- < > 29.1MCHC 32.5 -- -- < > 32.8PLT 311 -- -- < > 163MPV 9.7 -- -- < > 9.6GLUC 87 100* -- < > 96BUN 15 13 -- < > 18CREAT 0.54* 0.53* -- < > 0.62*NA 137 135* -- < > 138K 3.3* 3.5 -- < > 4.0CHLOR 104 102 -- < > 109*CO2 26 28 -- < > 25CA 7.5* 7.4* -- < > 7.5*MG -- 2.2 -- < > --< > = values in this interval not displayed.Last Lab Drawn:LDL Chol, Mabel 110 02/23/2010ssessment/PlanGI bleeding POA: Yes?Assessment AND?Plan: GI following. UGI bleed from Antral and prepyloricGUs s/p EGD, epi injection. ?S/p ?IR embolization of gastroduodenal andgastrioepiploic arteries on 06/23/17.?Acute respiratory failure with hypoxia and hypercapnia (HCC) POA: No?Assessment AND?Plan: s/p extubation yesterday. ?Acute blood loss anemia POA: Yes?Assessment AND?Plan: s/p multiple transfusions?New onset ?Atrial fibrillation (HCC) POA: No?Assessment AND?Plan: atrial fibrillation recurred at 11:50 . Metoprolol was started 25mg TID, HR on telemetry shows persistentatrial fibrillation HR slightly improved 119-139 bpm, however he receivedseveral doses of IV lopressor. BP is stable. I will therefore increasethe Metoprolol to 50mg TID and add Diltiazem 120mg QD He is chadvasc of 2and not on oral ATC therefore Amiodarone will not be resumed. I'm not sureif at some point he can take oral ATC safely, It appears that he is havinga repeat EGD with Dr. Dominguez in 8-10 weeks will confer with GI after thatappointment.SIGNATURE: Michelle Weeks, MSN, OPTOMETRIC ASSISTANT PATIENT NAME: Cristina JeffreyDATE: June 29, 2017 : 9:51 AM PAGER/CONTACT #: [phone] Normal [facility] Protein mass conc HNO ID: [id number] thor: Kalyan (Res) PereraService: Critical CareAuthor Type: ResidentType: Progress NotesFiled: 06/29/2017 2:17 PMNote Text: At testation signed by Pilar Peoples at 06/29/2017 10:31 [facility] STAFF PHYSICIAN NOTE OF PERSONAL INVOLVEMENT IN CAREI have reviewed the progress note obtained and documented by the resident and Ipersonally participated in the rivera components. I have discussed the case andmanagement of the patient's care. Please see my same day note for details.SIGNATURE: MAICO Rome INSTITUTEDATE of SERVICE: June 29, 2017TIME of SERVICE: 10:31 AM MICU - PROGRESS NOTESERVICE DATE: 06/29/2017SERVICE TIME: 9:02 AMAdmission Date: 06/21/2017AGE: 72 year oldLOS: 6 daysSubjectiveREASON FOR ICU ADMISSION: GI BleedingPatient is a 71 yo M with PMHx COPD, HTN, HD, and possible alcohol abusehistory who is being managed for acute hypovolemic/hemorrhagic shock 2/2GI bleed.Patient was extubated on 06/27. Patient has not had any further episodes ofactive bleeding and Hgb has remained stable. Surgery has signed off. GIs signed off with final recommendations for eventual IR embolization ofbranches of GDA/gastroepiploic arteries, and treatment of H. Pylorigastritis as an outpatient with 2 weeks of PPI BID, doxycycline 100mg BID,and metronidazole 250mg QID and Pepto-Bismol 2mg PO QID with a repeat EGDin 8-[address] Dominguez to document healing of gastric ulcers.Overnight, patient had another episode of atrial fibrillation whichresolved with 2.5mg IV Lopressor.This AM, patient was seen and examined. He was slightly confused aboutwhere he was but improved 15 minutes later. Patient does answer questionsappropriately. He was in no acute distress. He was able to tolerate aclear liquid diet and had a normal (but dark) bowel movement.ObjectivePROBLEMS: ACTIVE PROBLEM LISTShock (Hcc)Copd (Chronic Obstructive Pulmonary Disease) ([facility])HypertensionHyperlipidem iaGI BleedingAcute Respiratory Failure With Hypoxia and Hypercapnia (Hcc)Acute Blood Loss AnemiaHemorrhagic Shock ([facility])HypophosphatemiaAtrial Fibrillation With Rapid Ventricular Response ([facility])No past medical history on file.No past surgical history on file.Social History Marital status: Spouse name: Years of education: Number of children:Social History Main TopicsVITAL SIGNS (last 24hrs min/max):Temp Av.8 ?C (100.1 ?F) Min: 37.4 ?C (99.3 ?F) Max: 38.4 ?C (101.1?F)Pulse Av.7 Min: 109 Max: 170Arterial BP 1 Min: 80/46 Max: 138/68Cuff BP Min: 79/57 Max: 125/72Pain Score: 0/10Vital signs reviewed.BP 129/75 Pulse 111 Temp (Src) 97 (Axillary) Resp 18 Ht 5' 10"(1.78m) Wt 207 lb 0.2 oz (93.9kg) SpO2 94% BMI 29.70 kg/(m2).Temp (24hrs), Av.7 ?C (98 ?F), Min:36.1 ?C (97 ?F), Max:37.2 ?C (99?F)NET FLUID BALANCEIntake/Output Summary (Last 24 hours) at 06/29/17 0804Last data filed at 06/29/17 0600 Gross per 24 hourIntake 1290 mlOutput 3855 mlNet -2565 mlMEDICATIONSCurrent Facility-Administered Medications:potassium phosphate 45 mmol in NaCl 0.9% 250 mL 45 mmol INTRAVENOUS ONCEipratropium-albuterol 3 mL nebulizer solution (DUONEB) 3 mL INHALATION QIDoxyCODONE IR 5 mg tab(s) (ROXICODONE) 5 mg ORAL q 4 H PRNfentaNYL 50 mcg/mL 25 mcg injection (SUBLIMAZE) 25 mcg INTRAVENOUS q 2 HPRNmetoprolol tartrate (short acting) 25 mg tab(s) (LOPRESSOR) 25 mg ORAL q 8Hpill manager critical care unit (patient-specific) 1 Each Miscell. (Med.Supl.;Non-Drugs) PRNpantoprazole 40 mg injection (PROTONIX) 40 mg INTRAVENOUS BID AC(599/1599)potassium chloride 80-120 mEq oral liquid 80-120 mEq ORAL/FEEDING TUBE PRNpotassium chloride iv piggyback 20 mEq in sterile water 100 mL 60-120 mEqINTRAVENOUS PRNmagnesium sulfate in water 2 g in sterile water 50 ml 2 g INTRAVENOUS PRNcalcium gluconate 4 g in NaCl 0.9% 250 mL 4 g INTRAVENOUS PRNLines, Drains, and Airways Line Central Line Triple Lumen 06/25/17 1830 Non-tunneled Left Neck 3 days Drain Indwelling Urinary Catheter 06/27/17 0631 Assessment 16 Fr 2 daysPHYSICAL EXAM PERFORMED:General: Lying in bedCardiovascular: RRRRespiratory: CTABAbdomen: Soft and NontenderExtremities: Edema- NoNeurologic: Awake, alert, orientedRespiratory/Nursing Documentation:O2 Therapy: Room Air (06/29/17 06)Invasive Ventilator Mode: Continuous Positive Airway Pressure (100)Set Ventilator Respiratory Rate (BPM): 12 (06/27/17 0700)Total Respiratory Rate (BPM): 36 (06/27/17 1100)Tidal Volume Set (mL): 490 (06/27/17 1100)Exhaled Tidal Volume (mL): 524 (06/26/17 1550)Minute Volume (L): 13.6 (06/27/17 0700)Peak Inspiratory Pressure (cm H2O): 24 (06/27/17 0700)PEEP/CPAP (cm H2O): 5 (06/27/17 1100)HEMODYNAMIC DATA: ReviewedNUTRITION:Enteral Feeds: NoClear liquidsDATA: Diagnostic tests reviewed for today's visit, films/specimens werepersonally reviewed by me:Most recent labs and imaging results.LABS:Recent Labs 06/28/1814TROPI -- -- 0.064* -- --DIGOXIN -- -- -- -- 0.79*WBC 12.41* -- -- < > 11.59*RBC 2.94* -- -- < > 2.75*HB 8.6* -- -- < > 8.0*HCT 26.5* -- -- < > 24.4*MCV 90.1 -- -- < > 88.7PLT 311 -- -- < > 163GLUC 87 100* -- < > 96BUN 15 13 -- < > 18CREAT 0.54* 0.53* -- < > 0.62*NA 137 135* -- < > 138K 3.3* 3.5 -- < > 4.0CHLOR 104 102 -- < > 109*CO2 26 28 -- < > 25CA 7.5* 7.4* -- < > 7.5*MG -- 2.2 -- < > --06/23 CXR:IMPRESSION:?No acute radiographic abnormality. ?The right costophrenic angle is cutoff of the?chest radiograph.?Stable appearance to the chest as compared to the previous exam.06/21 Surgical Pathology:FINAL DIAGNOSIS:GASTRIC BIOPSIES (BODY AND ANTRUM) - EXTENSIVE CHRONIC AND ACTIVE ACUTEGASTRITIS WITH ULCERATION AND NUMEROUS HELICOBACTER PYLORI ORGANISMS.COMMENT: ?The presence of numerous Helicobacter pylori is confirmed onthe immunostain.OPERATIVE PROCEDURE:?EGDCLINICAL INFORMATION:?GI bleed, UlcersDigoxin Level: 0.79 (low)Sputum Culture: Normal oropharyngeal floraBlood Culture: No growth at 2 daysDevice Culture: No growth06/26 CXR:IMPRESSION:?Mild left basilar pleural-parenchymal opacity, likely representing traceeffusionwith associated left basilar atelectasis and/or infiltrate. ?Findingsappearsimilar.?Suppo rt devices as noted.06/26 TTE:Normal LV size and systolic function. No regional wall abnormalities. LVEFis 55-60%.The inferior vena cava is normal in size but does not collapse >50% withinspiration. RA pressure is 8 mmHg.RV is not well visualized. Grossly normal size andLeft VentricleNormal left ventricular size and systolic function. No regional wallmotionabnormalities. LVEF is 55-60% by visual estimation.Normal left ventricular wall thickness.Diastolic dysfunction could not be reliably determined due to arrhythmia.Rest Echo FindingsAll wall segments showed normal motion.Right VentricleThe right ventricle is not well visualized. On limited views, it hasgrossly normalsize and mildly reduced function.Left AtriumThe left atrium appears normal in size. WENDY is 25.23 ml/m2.Right AtriumThe right atrium appears dilated in size.The right atrium measures 21 cm2 by planimetry in the apical 4-chamberview.Mitral ValveStructurally normal mitral valve with trivial mitral regurgitation.Aortic ValveThe aortic valve is structurally normal and trileaflet, without evidenceof stenosis orregurgitation.Tricuspid ValveStructurally normal tricuspid valve with trivial tricuspid regurgitation.No evidence of pulmonary hypertension.Right ventricular systolic pressure is estimated at 32 mmHg.Pulmonic ValveThe pulmonic valve is structurally normal with trace pulmonicregurgitation.Pulmona ry ArteryThe pulmonary artery is not well visualized.Ascending AortaThe ascending aorta and aortic root appear normal in size.PericardiumNo evidence of pericardial effusion.Cardiac ShuntThere is no evidence of interatrial shunting by color Doppler.Vena CavaThe inferior vena cava is normal in size but does not does not collapse >50% with inspiration.Right atrial pressure is estimated at 8 mmHg.06/27 CXR:IMPRESSION:?Possible stable trace left pleural effusion.06/28 CXR:IMPRESSION: ?1. ?Interval removal of endotracheal tube and orogastric tube.?2. ?Slight interval decrease in lung volumes.?3. ?Otherwise no acute disease.Assessment/PlanIMPRES ELVIA:Critical Care Documentation: The patient has the following organ/systemimpairment(s): Circulatory shock1. Hemorrhagic Shock 2/2 UGIB- Resolved- Hgb: 8.6. Stable- H/H daily- GI, Gen Surg signed off- No further GI bleeding episodes- S/P IR embolization of gastroduodenal and gastroepiploic arteries on 06/23- Eventual IR embolization of branches of gastroduodenal andgastroepiploic arteries- Blood cultures: No growth2. H. Pylori gastritis- Tx as outpatient per GI- 2 weeks of PPI BID- Doxycycline 100mg BID- Metronidazole 250mg QID- Pepto-Bismol 2mg PO QID- Repeat EGD in 8-[address] Dominguez to document healing of gastriculcers.2. Acute hypoxic respiratory failure- Resolved- Incentive spirometry- Sputum cx: Normal oropharyngeal robin- Lasix 40mg PO daily3. Persistent Atrial Fibrillation with RVR- EP consulted: Metoprolol 50mg TID and add Diltiazem 120mg QD- Echo: LVEF is 55-60% no systolic dysfunction, IVC does not collapse >50%with inspiration.- Troponin: 0.064; follow one more troponin4. Reactive Leukocytosis- WBC: 12.415. COPD- Not currently in exacerbation- Duonebs QID6. Hypophosphatemia- Sodium phosphate IV BID- Ionized Ca was low; will be repleted.- Continue to monitor and replete7. ICU PPx- Protonix 40mg BID- SCDs- Discuss with GI when DVT PPx can be restarted8. Possible trauma line infection- Blood cultures: No growth- Central line removed as peripheral IV is in place9. Disposition- H/H daily- Gen surg/GI signed off- Outpatient H. Pylori Tx/EGD- Patient can be transferred to the floor on cardiac telemetry- Follow up 1 more troponin- Per GI, 2 weeks without anticoagulation.SIGNATURE: Kalyan Reich MD PATIENT NAME: Cristina JeffreyDATE: June 29, 2017 : 9:02 AM Normal [facility] Phosphorus Bloodon 8 Phosphate 1.9 mg/dL Critically low 2.5-4.[address] [facility] Comment on above: Performed By: #### R BCPS ####[place] [address] Prealbuminon 06-29-2017 Prealbumin 8.1 mg/dL Low 20.0-40.[address] [facility] Comment on above: Performed By: #### P T ####[place] [address] THERAPY NTon 06-29-2017 THERAPY NT HNO ID: [id number] thor: Lucita (Pt) Uzair, PTService: Physical TherapyAuthor Type: Physical TherapistType: Therapy (PT/OT/Speech/Resp)Filed: 06/29/2017 4:26 PMNote Text:Physical Therapy EvaluationSERVICE DATE: 06/29/2017SERVICE TIME: 1525 to 1605ROOM: [id number] on Admission:- Shock (HCC)- COPD (chronic obstructive pulmonary disease) (HCC)- Hypertension- GI bleeding- Acute blood loss anemia- Hemorrhagic shock (HCC)Recommended Discharge Disposition: Subacute/SNFJustification For Post Acute Needs: Anticipate that patient will requiredaily (5x/wk) skilled therapy in a post-acute facility setting at the timeof acute hospital discharge;May not tolerate higher intensityprograming;Willing to participate;Motivated;Living the communitypremorbidly;Good premorbid functional statusRecommended Discharge Equipment: No equipment needs anticipatedPT Recommendations to Nursing: With assist of 2 people (OOB for meals )PT 6 Clicks Score: 13Precautions/Activity Restrictions: Fall RiskASSESSMENT :Patient presents with personal factors, comorbidities and results of thePT examination that require moderate complexity decision making. Thepatient requires skilled physical therapy to address multiple PT problemsin order for the patient to return to a baseline functional level.Requires skilled PT for Improvement of functional mobility, safety,endurance, strength, and ambulation. Patient demonstrates unsteadiness onstanding and initially collapsed back in chair due to knees buckling onfirst standing attempt. However, patient was able to stand repeatedly andside-step to bed with assistance. Patient appears motivated andcognitively intact.Tolerance Limited By FatiguePhysical Therapy Problem List: Balance Impaired;Functional MobilityImpairment;Decreased Strength;Decreased Activity TolerancePatient /Caregiver Goals: Go To RehabGoals for Plan of Care:Transfer supine to/from sit with: Minimal AssistanceTransfer sit to/from stand with: Contact Guard AssistanceAmbulate with: Minimal AssistanceDistance: 10Device: Wheeled WalkerGoal: Patient will achieve 4+/5 BLE strength for functional mobilityRehab Potential: GoodPLAN:Treatment Frequency (times per week): 5 (1-5) Current admissionTreatment Interventions: Education;Strengthening;Funct ional MobilityTraining;Balance TrainingPlan of Care developed with: PatientTREATMENT INTERVENTIONS:Therapy Diagnosis: Muscle Weakness (generalized);Unsteadiness onfeet;Abnormalities of gait and mobility-otherInterventions Provided: Evaluation;Therapeutic Exercise(36789);Therapeutic Activity (49420)$ Evaluation-Moderate (04763) Billed Units: 1 unitEducation and discussion regarding findings relevant to patient'sfunctional mobility needs and continued PT at assisted facility toimprove independence.Therapeutic Exercise (79271) Treatment Minutes: 121 unitSkilled Intervention(s): Patient instructed in and performed ankle pump,gluteal set, hip abd/add, long arc quad x 12 reps with no physical assistto improve strength for functional mobility. Three [id number] for legstrength. Patient required 1 monitored rest break during exercises.Therapeutic Activity (64888) Treatment Minutes: 131 unitSkilled Intervention(s): Instruction and performance in sit to supineusing safe, effective technique, sit to stand technique with proper handplacement and body positioning at edge of bed/chair, and stand to sittechnique with lower extremities touching chair/bed and reaching back forsurface. Standing activity to improve upright tolerance and strength, twostands at approximately 30 seconds each with weight shifting, requiringseated rest breaks. Education regarding importance of OOB to chair - in asitting position (not reclined), ambulate in room to regulate BP, improvelung function and overall blood flow, and to aid with other bodilyfunctions. HR 120's to 170's with activity. All other vitals remainedstable.Total Timed Code Treatment Minutes: 25Total Treatment Time (minutes): 40FUNCTIONAL G CODE:PT 6 Clicks Score: 13 (06/29/17 1525)Mobility: Walking and Moving Around Current Status (G8978): CL ()Mobility: Walking and Moving Around Goal Status (G8979): CK ()Based on clinical assessment and the score on the 6 Clicks FunctionalAssessment Tool, the G code and corresponding severity modifiers aredocumented above.SUBJECTIVE:Current Hospital Course: Chart reviewed. Patient is a 72 yo male whopresented with acute brisk upper gastrointestinal bleeding and underwentesophagogastroduoden oscopy with Endoclip placement x4, epinephrineinjection, biopsies of the gastric antrum and body for H. Pylori.Present on Admission:- Shock (HCC)- COPD (chronic obstructive pulmonary disease) (HCC)- Hypertension- GI bleeding- Acute blood loss anemia- Hemorrhagic shock (HCC)No past medical history on file.No past surgical history on file.Patient Report: Identification verified x2, patient agreeable to therapy.Patient reports no pain.Home EnvironmentPatient Lives With: Self/AloneAssistance Available: None (friends and family "all old")Entry To Home: No StairsNumber Of Stairs To Bed/Bath: 0Prior Functional Level: Within Functional Limits (independent without AD)OBJECTIVE:CURRENT FUNCTIONAL STATUS:Current Functional Mobility Assist Level Additional InformationRollingSupine to SitSit to Supine Moderate AssistanceScootingSit to Stand Minimal AssistanceStand to Sit Minimal AssistanceBed to Chair Moderate AssistanceToilet/CommodeGait Moderate Assistance Gait Device: Hand Held Assist Gait Distance (feet): 2StairsCurb StepCar TransferGeneral Gait Deviations: Fabiola decreased;Lateral sway increased;Steplength decreased;Difficulty changing direction/turning;Non-functio nal gaitspeed;Loss of BalanceBalance: Dynamic Sitting;Dynamic StandingDynamic Sitting Balance: Stand By Assistance (fair)Dynamic Standing Balance: Moderate Assistance (poor)Range Of Motion: Within Functional Limits (BLE)Strength: Within Functional Limits (BLE 4/5) Patient in bed with call light and phone in reach on bedside table.Instructed to use call light and wait for assist to get out of bed.Please see discipline specific clinical documentation flowsheet forcomplete details for this therapy evaluation/treatment.SIGNLEOPOLDO E: CALLI Manzanares PATIENT NAME: Cristina JeffreyDATE: June 29, 2017 : 4:10 PM PAGER/CONTACT #: [phone] reviewed and addended with the documentation corresponding to thistherapy visit.Evaluation and/or treatment directly supervised by licensed PhysicalTherapist. Normal [facility] Troponin Ion 06-29-2017 Troponin I.cardiac mass conc 0.024 ng/mL Normal 0.015-0.[address] [facility] Comment on above: Performed By: #### P T ####[place] [address] ALLIED HEALTHon 06-28-2017 ALLIED HEALTH HNO ID: [id number] thor: Tatum Saxena (Chaplain)ervice: (none)Author Type: ChaplainType: Allied HealthFiled: 06/28/2017 12:12 PMNote Text: SPIRITUALCARESpiritual Care Visit- Brief NoteName: Cristina JeffreyMRN: [id number]: June 28, 2017Notes: As appliance service representative made intro visit to patient. Patient expressed that hehad been in the hospital for weeks and was ready to go home. Patientexpressed frustration with his liquid diet and that he wanted real food.Sat with patient. Visit ended when family arrived. Informed patient SC isavailable 14/11. Chaplain Signature: Consuelo Saxena contact the [facility] Care Department:Please call [phone] or Page the On-Call Hydraulic Rockbreaker Operator at pager [phone] you for the opportunity to be of service.This is an electronically created document.IF PRINTED, PLEASE DO NOT REMOVE FROM THE CHART OR MODIFY PRINTED COPY. Normal [facility] Basic Panelon 06-28-2017 Creatinine 0.53 mg/dL Low 0.67-1.[address] [facility] Comment on above: Performed By: #### R BCPS ####[place] [address] Anion gap 9 mmol/L Normal 8-[address] [facility] Comment on above: Performed By: #### R BCPS ####[address] [address] Calcium 7.4 mg/dL Low 8.5-10.[address] [facility] Comment on above: Performed By: #### R BCPS ####[facility] [place] [address] CO2 28 mmol/L Normal 21-[address] [facility] Comment on above: Performed By: #### R BCPS ####[facility] [place] [address] Glucose mass conc 100 mg/dL High 70-[address] [facility] Comment on above: Performed By: #### R BCPS ####[place] [address] Urea nitrogen 13 mg/dL Normal 7-[address] [facility] Comment on above: Performed By: #### R BCPS ####[facility] [place], [place] [address] Chloride 102 mmol/L Normal 98-[address] [facility] Comment on above: Performed By: #### R BCPS ####[facility] [place], [place] [address] Potassium molar conc 3.5 mmol/L Normal 3.5-5.1 [facility] Comment on above: Performed By: #### R BCPS ####[facility] [place], [place] [address] Sodium 135 mmol/L Low 136-[address] [facility] Comment on above: Performed By: #### R BCPS ####[address] [address] Creatinine 0.60 mg/dL Low 0.67-1.[address] [facility] Comment on above: Performed By: #### R BCPS ####[address] [address] Glucose mass conc 88 mg/dL Normal 70-[address] [facility] Comment on above: Performed By: #### R BCPS ####[address] [address] Anion gap 11 mmol/L Normal 8-[address] [facility] Comment on above: Performed By: #### R BCPS ####[address] [address] CO2 24 mmol/L Normal 21-[address] [facility] Comment on above: Performed By: #### R BCPS ####[address] [address] Urea nitrogen 15 mg/dL Normal 7-[address] [facility] Comment on above: Performed By: #### R BCPS ####[address] [address] Calcium 7.2 mg/dL Low 8.5-10.[address] [facility] Comment on above: Performed By: #### R BCPS ####[place] [address] Chloride 105 mmol/L Normal 98-107 [facility] Comment on above: Performed By: #### R BCPS ####[facility] [place], [place] [address] Potassium molar conc 3.8 mmol/L Normal 3.5-5.1 [facility] Comment on above: Performed By: #### R BCPS ####[facility] [place], [place] [address] Sodium 136 mmol/L Normal 136-[address] [facility] Comment on above: Performed By: #### R BCPS ####[facility] [place], [place] [address] CASE MANAGEMon 06-28-2017 CASE MANAGEM HNO ID: [id number] thor: Toshia (Rn) KELLY Dumaservice: Care ManagementAuthor Type: Registered NurseType: Care Mgt Progress NoteFiled: 06/28/2017 3:45 PMNote Text:CARE MANAGEMENT PROGRESS NOTESERVICE DATE: 06/28/2017SERVICE TIME: 3:44 PM LOS: 5 days Met with pt at bedside. Now off vent- Discussed next step is PT/OT eval.Possible placement vs HHC depending on progress.SIGNATURE: Toshia Dumas RN PATIENT NAME: Cristina JeffreyDATE: June 28, 2017 : 3:44 PM PAGER/CONTACT #: [phone] Normal [facility] CHEST 1 VIEWon 06-28-2017 CHEST 1 VIEW Performed at [facility] APPROVED BY: Dre Woodward MD EXAM TITLE: AP UPRIGHT PORTABLE CHEST DATE: 06/28/2017 10:18 COMPARISON: 06/27, , and 07/09 CLINICAL INDICATION/HISTORY: Shortness of breath. TECHNIQUE: A single AP upright portable view of the chest is presented. FINDINGS: There has been interval removal of the endotracheal tube and orogastric tube. There continues to be a right internal jugular venous catheter with its tip in the inferior aspect of the superior vena cava. No other tubes or lines are identified. The heart is at the upper limits of normal for size. The thoracic aorta is slightly tortuous. The mediastinum is unremarkable. The pulmonary vascularity is within normal limits. The costophrenic angles are clear bilaterally. There is slight eventration of the right hemidiaphragm. No focal infiltrates are noted. There is no evidence of focal infiltrate. There is interval decrease in lung volumes. IMPRESSION: 1. Interval removal of endotracheal tube and orogastric tube. 2. Slight interval decrease in lung volumes. 3. Otherwise no acute disease. Normal [facility] Hemogramon 06-28-2017 Erythrocyte distribution width Auto Ratio (RBC) 15.9 % High 11.6-14.[address] [facility] Comment on above: Performed By: #### R BCPS ####[place] [address] Erythrocytes (RBC) 3.04 mil/cmm Low 4.63-6.08 [facility] Comment on above: Performed By: #### R BCPS ####[place] [address] Hematocrit (HCT) 27.2 % Low 40.1-51.[address] [facility] Comment on above: Performed By: #### R BCPS ####[place] [address] Hemoglobin mass conc (Bld) 8.9 g/dL Low 13.7-17.[address] [facility] Comment on above: Performed By: #### R BCPS ####[place] [address] MCH 29.3 pg Normal 25.7-32.[address] [facility] Comment on above: Performed By: #### R BCPS ####[place] [address] MCHC mass conc (RBC) 32.7 % Normal 32.3-36.5 [facility] Comment on above: Performed By: #### R BCPS ####[place] [address] MCV 89.5 fL Normal 83.2-95.[address] [facility] Comment on above: Performed By: #### R BCPS ####[place] [address] Nucleated erythrocytes 0.02 thou/cmm High 0.00-0.[address] [facility] Comment on above: Performed By: #### R BCPS ####[address] [address] Nucleated RBC % 0.2 % Normal 0.0-0.[address] [facility] Comment on above: Performed By: #### R BCPS ####[address] [address] Platelet mean volume (PMV) 9.4 fL Normal 8.7-12.[address] [facility] Comment on above: Performed By: #### R BCPS ####[address] [address] Platelets 243 thou/cmm Normal 141-[address] [facility] Comment on above: Performed By: #### R BCPS ####[address] [address] RDW SD 50.4 fl High 36.1-45.[address] [facility] Comment on above: Performed By: #### R BCPS ####[place] [address] WBC (Leukocytes) 13.29 thou/cmm High 4.23-9.07 [facility] Comment on above: Performed By: #### R BCPS ####[place] [id number] MDRD GFRon 06-28-2017 eGFR (non-black) mL/min/{1.73_m2} Normal >60mL/m in/ 1.73m2 [facility] Comment on above: Result Comment: If t he patient is , multiply the result by 1.210. Performed By: #### R BCPS ####[address] [address] eGFR (non-black) mL/min/{1.73_m2} Normal >60mL/m in/ 1.73m2 [facility] Comment on above: Result Comment: If t he patient is , multiply the result by 1.210. Performed By: #### R BCPS ####[address] [address] Magnesium Bloodon 06-28-2017 Magnesium 2.2 mg/dL Normal 1.6-2.6 [facility] [facility] Comment on above: Performed By: #### R BCPS ####[facility] [place], [place] [address] Magnesium 2.2 mg/dL Normal 1.6-2.[address] [facility] Comment on above: Performed By: #### R BCPS ####[facility] [place], [place] [address] PROGRESSon 06-28-2017 Protein mass conc HNO ID: [id number] thor: Giselle ([facility]) CroomService: ElectrophysiologyAuthor Type: Nurse PractitionerType: Progress NotesFiled: 06/28/2017 12:42 PMNote Text:HRA PROGRESS NOTE EP CARDIOLOGY SERVICESERVICE DATE: 06/28/2017SERVICE TIME: 12:29 PMSubjectiveINTERIM HISTORY: Cristina Jeffrey is laying in bed, he went into atrialfibrillation at 11:50am. He denies palpitations, dizziness, CP, syncope.He has had SOB and reports that the nebulizer has been helpful.ObjectivePHYSICAL EXAM:Body mass index is 31.13 kg/(m2).O2 Therapy: Nasal CannulaNo Data RecordedPatient Vitals for the past 24 hrs: BP Temp Temp src Pulse Resp SpO2 Mszqtl57/07/18 1214 141/99 - - (!) 150 - - -06/28/17 1202 - - - (!) 132 30 98 % -06/28/17 1132 137/77 - - 82 - - -06/28/17 1018 - - - 89 28 98 % -06/28/17 1008 - - - 101 30 97 % -06/28/17 0600 163/77 - - 93 29 97 % -06/28/17 0500 170/82 - - 97 (!) 31 97 % -06/28/17 0400 166/68 37 ?C (98.6 ?F) Axillary 97 26 97 % 98.4 kg (216 lb14.9 oz)06/28/17 0300 173/86 - - 97 (!) 32 98 % -06/28/17 0200 168/82 - - 96 (!) 34 98 % -06/28/17 0100 176/83 - - 106 (!) 35 98 % -06/28/17 0000 168/74 37.5 ?C (99.5 ?F) Axillary 104 (!) 35 98 % -06/27/17 2300 166/85 - - 103 (!) 36 98 % -06/27/17 2200 153/82 - - 99 (!) 34 94 % -06/27/17 2100 156/80 - - 98 (!) 31 91 % -06/27/17 2000 167/76 36.9 ?C (98.4 ?F) Axillary 101 25 94 % -06/27/17 1900 161/63 - - 96 (!) 34 92 % -06/27/17 1830 - - - 96 28 97 % -06/27/17 1800 154/95 - - 95 (!) 34 96 % -06/27/17 1730 - - - 94 (!) 33 97 % -06/27/17 1700 160/85 37.6 ?C (99.7 ?F) - 95 (!) 31 97 % -06/27/17 1630 - 37.7 ?C (99.9 ?F) - 90 29 95 % -06/27/17 1600 142/96 37.8 ?C (100 ?F) - 89 30 97 % -06/27/17 1530 - 37.8 ?C (100 ?F) - 92 (!) 34 99 % -06/27/17 1500 136/73 37.7 ?C (99.9 ?F) - 96 (!) 37 96 % -06/27/17 1400 140/75 37.4 ?C (99.3 ?F) - 92 (!) 33 99 % -06/27/17 1330 - 37.3 ?C (99.1 ?F) - 88 (!) 32 98 % -06/27/17 1300 118/69 37.4 ?C (99.3 ?F) - 90 28 98 % -Pleasant, comfortable, not in acute distress.Awake, alert, oriented times 3.Moves all extremities.SKIN: No rash or lumps.HEENT: Normocephalic, face symmetrical.NECK: Supple, no JVD, no carotid bruit, no thyromegaly.LUNGS: Lungs clear to auscultation, Good diaphragmatic excursionCARDIAC: Rhythm: irregularly irregular, Rate: tachycardia, S1: normalintensity, S2: normal intensity, No murmurABDOMEN: Soft, nontender, bowel sounds present.EXTREMITIES: No ulcers, 1+ LE edema bilatPULSES: Peripheral pulses present.MEDICATIONS:Current hospital medications:ipratropium-albut thai 3 mL nebulizer solution (DUONEB) 3 mL INHALATION QIDoxyCODONE IR 5 mg tab(s) (ROXICODONE) 5 mg ORAL q 4 H PRNfentaNYL 50 mcg/mL 25 mcg injection (SUBLIMAZE) 25 mcg INTRAVENOUS q 2 HPRNmetoprolol tartrate (short acting) 25 mg tab(s) (LOPRESSOR) 25 mg ORAL q 8Hpill manager critical care unit (patient-specific) 1 Each Miscell. (Med.Supl.;Non-Drugs) PRNpantoprazole 40 mg injection (PROTONIX) 40 mg INTRAVENOUS BID AC(0600/1600)potassium chloride 80-120 mEq oral liquid 80-120 mEq ORAL/FEEDING TUBE PRNpotassium chloride iv piggyback 20 mEq in sterile water 100 mL 60-120 mEqINTRAVENOUS PRNmagnesium sulfate in water 2 g in sterile water 50 ml 2 g INTRAVENOUS PRNcalcium gluconate 4 g in NaCl 0.9% 250 mL 4 g INTRAVENOUS PRNDATA:Diagnostic tests reviewed for today's visit:Most recent labsMost recent telemetryPast 72 Hour Labs:Recent Labs 06/28/1809345 [id number] 0.064* -- -- -- -- -- --DIGOXIN -- -- -- -- 0.79* -- --WBC -- -- 13.29* -- 11.59* -- 14.53*RBC -- -- 3.04* -- 2.75* -- 2.85*HB -- -- 8.9* -- 8.0* < > 8.4*HCT -- -- 27.2* -- 24.4* -- 25.1*MCV -- -- 89.5 -- 88.7 -- 88.1MCH -- -- 29.3 -- 29.1 -- 29.5MCHC -- -- 32.7 -- 32.8 -- 33.5PLT -- -- 243 -- 163 -- 138*MPV -- -- 9.4 -- 9.6 -- 9.6GLUC -- -- 88 < > 96 -- 99BUN -- -- 15 < > 18 -- 21*CREAT -- -- 0.60* < > 0.62* -- 0.63*NA -- -- 136 < > 138 -- 141K -- -- 3.8 < > 4.0 -- 3.2*CHLOR -- -- 105 < > 109* -- 110*CO2 -- -- 24 < > 25 -- 26TPROT -- -- -- -- -- -- 4.8*ALB -- -- -- -- -- -- 1.7*CA -- -- 7.2* < > 7.5* -- 6.7*ALKPHOS -- -- -- -- -- -- 53TBILI -- -- -- -- -- -- 1.1*AST -- -- -- -- -- -- 30ALT -- -- -- -- -- -- 66MG -- 2.2 -- -- -- < > --< > = values in this interval not displayed.Last Lab Drawn:LDL Chol, [place] 110 02/23/2010ssessment/PlanPrinc ipal Problem: GI bleeding POA: Yes?Assessment AND?Plan: GI following. UGI bleed from Antral and prepyloricGUs s/p EGD, epi injection. ?S/p ?IR embolization of gastroduodenal andgastrioepiploic arteries on .?Acute respiratory failure with hypoxia and hypercapnia (HCC) POA: No?Assessment AND?Plan: s/p extubation yesterday.?Acute blood loss anemia POA: Yes?Assessment AND?Plan: s/p multiple transfusions?New onset ?Atrial fibrillation (HCC) POA: No?Assessment AND?Plan: atrial fibrillation recurred at 11:50 this AM, AL334-557 bpm. Prior to that he was in SR with PAC's. He is asymptomatic. Heis chadvasc of 2 and not on oral ATC therefore Amiodarone will not beresumed. Will attempt to rate control with Metoprolol since BP is stable.I've ordered 5mg IV x 1 and 25mg PO Q 8 hours. I will continue to monitorhim.SIGNATURE: Michelle Weeks, MSN, OPTOMETRIC ASSISTANT PATIENT NAME: Cristina JeffreyDATE: June 28, 2017 : 12:29 PM PAGER/CONTACT #: [phone] Normal [facility] Protein mass conc HNO ID: [id number] thor: Pilar Ernestoe: Critical CareAuthor Type: PhysicianType: Progress NotesFiled: 06/28/2017 11:07 PMNote Text:Please link this note to the resident's note completed on June 28, 2017.Impression/Recommendatio [facility]FF PH[facility]ICIAN NOTE OF PERSONAL INVOLVEMENT IN CAREI have reviewed the note obtained and documented by the resident and Ipersonally participated in the rivera components. I have discussed the caseand management of the patient's care. The following comments revise orconfirm relevant rivera components of the note.I have personally seen and examined the patient.Interval findings: Awake following commands. Had ab pain (same as beforethis AM), but improved after bowel movement. There was ? RBBB on rhythmstrip, EKG done, NSR w/ PACs. No ST elevations/depressions or TWI. Troponly mildly elevatedCXR mildly prominence of pulm vasculature on R c/w yestNo further bleeding. Diuresed O/N 2 L.Off amiodarone gtt and digoxin per EPMildly tachypneicHas hoarseness post extubation Data: All data reviewed. All diagnostic tests, including labs/specimensand imaging, were personally reviewed by me.IMPRESSION/PLAN:Critical Care Documentation: The patient has the following organ/systemimpairment(s):71 yo WM w/ hx sig for COPD, HTN, HL, and ?alcohol abuse admitted w/ GIbleed c/b hemorrhagic shock and Afib w/ RVR.??# Acute hypoxic failure in s/o hemorrhagic shock; liberated from vent on06/27/17 ; now w/ mild tachypnea# A.fib with RVR related to acute anemia and acute illness- now ratecontrolled# Reactive leukocytosis- hovering# Acute severe blood loss anemia and hemorrhagic shock at presentation;s/p 12?units of PRBC?transfusion- shock resolved and Hb stable# UGIB; PUD; s/p angio-embolization of gastroduodenal and gastroepiploicarteries# + H. Pylori associated gastritis/PUD# Mild thrombocytopenia# COPD- not in exacerbation# Hypophosphatemia ?# Hypocalcemia??Recs:- Will diuresis further 1L neg given tachypnea (still total +fluid balancesince admit)- Start Coreg (home med) for rate/BP control; start at reduced dose 6.25bid- Maintain miranda; accurate I/Os- Follow BMP, Phos, Mg- Replete lytes- Monitor WBC, if fever or worsening secretions, reculture and startempiric Abx- Per GI, can treat H.pylori as outpatient w/ 2 weeks of PPI BID,doxycycline 100 mg BID, metronidazole 250 mg po QID and Peptobismal 2 poQID.- Decrease Hb checks to daily; transfuse as needed for Hb <7- Appreciate EP input- D/c Dig levels- c/w PPI BID- Change BDs to standing- no lovenox- Advance diet as tolerated- SCDs- IS- PT/OT- Pain control w/ prn oxycodone- Try to obtain PIV to remove CVC (IJ)- ICU monitoring/supportive care?Prognosis: Somewhat guarded?Code Status: Full?Patient/Family Updated: Patient and/or family were updatedregarding?the?goals of care,?medical plan for the day, consultantrecommendations, medical disposition and current medicalcondition/prognosis as clinically indicated. All questions and concerns,if any, were answered and addressed at this juncture.This patient has a high probability of sudden, clinically significantdeterioration, which requires the highest level of physician preparednessto intervene urgently. I managed/supervised life or organ supportinginterventions that required frequent physician assessment. I devoted myfull attention to the direct care of this patient for the amount of timeindicated below. Time I spent with family or surrogate(s) is includedonly if the patient was incapable of providing the necessary informationor participating in medical decision making. Time devoted to teaching andto any procedures I billed separately is not included.Discussed with Respiratory therapist, Registered Nurse, Pharmacismadhav Bae.Time spent providing critical care services: 32 minutes, excludingprocedures.SIGNATURE : MAICO Rome INSTITUTEDATE of SERVICE: June 28, 2017TIME of SERVICE: 10:07 AM [facility] Protein mass conc HNO ID: [id number] thor: Kalyan Sahu PereraService: Critical CareAuthor Type: ResidentType: Progress NotesFiled: 06/28/2017 2:06 PMNote Text: At testation signed by Pilar Peoples at 06/29/2017 9:28 [facility] STAFF PHYSICIAN NOTE OF PERSONAL INVOLVEMENT IN CAREI have reviewed the progress note obtained and documented by the resident and Ipersonally participated in the rivera components. I have discussed the case andmanagement of the patient's care. Please see my same day note for details.SIGNATURE: MAICO [place] INSTITUTEDATE of SERVICE: June 28, 2017TIME of SERVICE: 9:27 AM MICU - PROGRESS NOTESERVICE DATE: 06/28/2017SERVICE TIME: 9:02 AMAdmission Date: 06/21/2017AGE: 72 year oldLOS: 5 daysSubjectiveREASON FOR ICU ADMISSION: GI BleedingPatient is a 71 yo M with PMHx COPD, HTN, HD, and possible alcohol abusehistory who is being managed for acute hypovolemic/hemorrhagic shock 2/2GI bleed.Patient was extubated yesterday. Patient has not had any further episodesof active bleeding and Hgb has remained stable. Surgery has signed off. GIhas signed off with final recommendations for eventual IR embolization ofbranches of GDA/gastroepiploic arteries, and treatment of H. Pylorigastritis as an outpatient with 2 weeks of PPI BID, doxycycline 100mg BID,and metronidazole 250mg QID and Pepto-Bismol 2mg PO QID with a repeat EGDin 8-[address] Dominguez to document healing of gastric ulcers.Overnight, patient had a HR of 94 bpm with occasional PVC's whichconverted to sinus rhythm at 4:30am. Per EP, this was most likelysituational AFib 2/2 severe anemia, GI bleed, and shock. The amiodaronegtt and IV digoxin was discontinued. Oral anticoagulation was held per GI.This AM, patient was seen and examined. He had a 6-7 beat run ofVTach/possible PVCs in the morning. Patient was stable during this timeand then spontaneously converted back to sinus rhythm. Patient wascomplaining of some epigastric pain as well as having some difficultyspeaking post-intubation. VBG, CXR, EKG, troponin, and Mg were ordered,which were unremarkable.ObjectivePROBLEM S: ACTIVE PROBLEM LISTShock (Hcc)Copd (Chronic Obstructive Pulmonary Disease) (Hcc)HypertensionHyperlipidem iaGI BleedingAcute Respiratory Failure With Hypoxia and Hypercapnia (Hcc)Acute Blood Loss AnemiaHemorrhagic Shock (Hcc)HypophosphatemiaAtrial Fibrillation With Rapid Ventricular Response (Hcc)No past medical history on file.No past surgical history on file.Social History Marital status: Spouse name: Years of education: Number of children:Social History Main TopicsVITAL SIGNS (last 24hrs min/max):Temp Av.8 ?C (100.1 ?F) Min: 37.4 ?C (99.3 ?F) Max: 38.4 ?C (101.1?F)Pulse Av.7 Min: 109 Max: 170Arterial BP 1 Min: 80/46 Max: 138/68Cuff BP Min: 79/57 Max: 125/72Pain Score: 0/10Vital signs reviewed.BP 163/77 Pulse 93 Temp (Src) 98.6 (Axillary) Resp 29 Ht 5' 10"(1.78m) Wt 216 lb 14.9 oz (98.4kg) SpO2 97% BMI 31.13 kg/(m2).Temp (24hrs), Av.4 ?C (99.3 ?F), Min:36.6 ?C (97.9 ?F), Max:37.8 ?C(100 ?F)NET FLUID BALANCEIntake/Output Summary (Last 24 hours) at 06/28/17 0831Last data filed at 06/28/17 0600 Gross per 24 hourIntake 1356.8 mlOutput 3700 mlNet -2343.2 mlMEDICATIONSCurrent Facility-Administered Medications:sodium phosphate 30 mmol in D5W 250 mL 30 mmol INTRAVENOUS ONCEpill manager critical care unit (patient-specific) 1 Each Miscell. (Med.Supl.;Non-Drugs) PRNipratropium-albuterol 3 mL nebulizer solution (DUONEB) 3 mL INHALATION q 4H PRNfentaNYL 50 mcg/mL 25 mcg injection (SUBLIMAZE) 25 mcg INTRAVENOUS q 2 HPRNpantoprazole 40 mg injection (PROTONIX) 40 mg INTRAVENOUS BID AC(599/1599)potassium chloride 80-120 mEq oral liquid 80-120 mEq ORAL/FEEDING TUBE PRNpotassium chloride iv piggyback 20 mEq in sterile water 100 mL 60-120 mEqINTRAVENOUS PRNmagnesium sulfate in water 2 g in sterile water 50 ml 2 g INTRAVENOUS PRNcalcium gluconate 4 g in NaCl 0.9% 250 mL 4 g INTRAVENOUS PRNLines, Drains, and Airways Line Central Line Triple Lumen 06/25/17 1830 Non-tunneled Left Neck 2 days Drain Indwelling Urinary Catheter 06/27/17 0631 Assessment 16 Fr 1 dayPHYSICAL EXAM PERFORMED:General: Lying in bedCardiovascular: RRRRespiratory: CTABAbdomen: Soft and NontenderExtremities: Edema- NoNeurologic: Awake, alert, orientedRespiratory/Nursing Documentation:O2 Therapy: Nasal Cannula (06/28/17 06)Invasive Ventilator Mode: Continuous Positive Airway Pressure ()Set Ventilator Respiratory Rate (BPM): 12 (06/27/17 07)Total Respiratory Rate (BPM): 36 (06/27/17 1100)Tidal Volume Set (mL): 490 (06/27/17 1100)Exhaled Tidal Volume (mL): 524 (06/26/17 1550)Minute Volume (L): 13.6 (06/27/17 0700)Peak Inspiratory Pressure (cm H2O): 24 (06/27/17 0700)PEEP/CPAP (cm H2O): 5 (06/27/17 1100)HEMODYNAMIC DATA: ReviewedNUTRITION:Enteral Feeds: NoClear liquidsDATA: Diagnostic tests reviewed for today's visit, films/specimens werepersonally reviewed by me:Most recent labs and imaging results.LABS:Recent Labs 06/27/1802DIGOXIN -- -- 0.79* -- -- --WBC 13.29* -- 11.59* -- -- 14.53*RBC 3.04* -- 2.75* -- -- 2.85*HB 8.9* -- 8.0* < > -- 8.4*HCT 27.2* -- 24.4* -- -- 25.1*MCV 89.5 -- 88.7 -- -- 88.1PLT 243 -- 163 -- -- 138*GLUC 88 < > 96 -- -- 99BUN 15 < > 18 -- -- 21*CREAT 0.60* < > 0.62* -- -- 0.63*NA 136 < > 138 -- -- 141K 3.8 < > 4.0 -- -- 3.2*CHLOR 105 < > 109* -- -- 110*CO2 24 < > 25 -- -- 26TPROT -- -- -- -- -- 4.8*ALB -- -- -- -- -- 1.7*CA 7.2* < > 7.5* -- -- 6.7*ALKPHOS -- -- -- -- -- 53TBILI -- -- -- -- -- 1.1*AST -- -- -- -- -- 30ALT -- -- -- -- -- 66MG -- -- -- -- 2.3 --< > = values in this interval not displayed.AB06/23 CXR:IMPRESSION:?No acute radiographic abnormality. ?The right costophrenic angle is cutoff of the?chest radiograph.?Stable appearance to the chest as compared to the previous exam.06/21 Surgical Pathology:FINAL DIAGNOSIS:GASTRIC BIOPSIES (BODY AND ANTRUM) - EXTENSIVE CHRONIC AND ACTIVE ACUTEGASTRITIS WITH ULCERATION AND NUMEROUS HELICOBACTER PYLORI ORGANISMS.COMMENT: ?The presence of numerous Helicobacter pylori is confirmed onthe immunostain.OPERATIVE PROCEDURE:?EGDCLINICAL INFORMATION:?GI bleed, UlcersDigoxin Level: 0.79 (low)Sputum Culture: Normal oropharyngeal floraBlood Culture: No growth at 2 daysDevice Culture: No growth06/26 CXR:IMPRESSION:?Mild left basilar pleural-parenchymal opacity, likely representing traceeffusionwith associated left basilar atelectasis and/or infiltrate. ?Findingsappearsimilar.?Suppo rt devices as noted.06/26 TTE:Normal LV size and systolic function. No regional wall abnormalities. LVEFis 55-60%.The inferior vena cava is normal in size but does not collapse >50% withinspiration. RA pressure is 8 mmHg.RV is not well visualized. Grossly normal size andLeft VentricleNormal left ventricular size and systolic function. No regional wallmotionabnormalities. LVEF is 55-60% by visual estimation.Normal left ventricular wall thickness.Diastolic dysfunction could not be reliably determined due to arrhythmia.Rest Echo FindingsAll wall segments showed normal motion.Right VentricleThe right ventricle is not well visualized. On limited views, it hasgrossly normalsize and mildly reduced function.Left AtriumThe left atrium appears normal in size. WENDY is 25.23 ml/m2.Right AtriumThe right atrium appears dilated in size.The right atrium measures 21 cm2 by planimetry in the apical 4-chamberview.Mitral ValveStructurally normal mitral valve with trivial mitral regurgitation.Aortic ValveThe aortic valve is structurally normal and trileaflet, without evidenceof stenosis orregurgitation.Tricuspid ValveStructurally normal tricuspid valve with trivial tricuspid regurgitation.No evidence of pulmonary hypertension.Right ventricular systolic pressure is estimated at 32 mmHg.Pulmonic ValveThe pulmonic valve is structurally normal with trace pulmonicregurgitation.Pulmona ry ArteryThe pulmonary artery is not well visualized.Ascending AortaThe ascending aorta and aortic root appear normal in size.PericardiumNo evidence of pericardial effusion.Cardiac ShuntThere is no evidence of interatrial shunting by color Doppler.Vena CavaThe inferior vena cava is normal in size but does not does not collapse >50% with inspiration.Right atrial pressure is estimated at 8 mmHg.06/27 CXR:IMPRESSION:?Possible stable trace left pleural effusion.Assessment/PlanIMPRE SSION:Critical Care Documentation: The patient has the following organ/systemimpairment(s): Circulatory shock1. Hemorrhagic Shock 2/2 UGIB- Resolved- Hgb: 8.9. Stable- H/H daily- GI, Gen Surg signed off- No further GI bleeding episodes- S/P IR embolization of gastroduodenal and gastroepiploic arteries on 06/23- Eventual IR embolization of branches of gastroduodenal andgastroepiploic arteries- Blood cultures: No growth2. H. Pylori gastritis- Tx as outpatient per GI- 2 weeks of PPI BID- Doxycycline 100mg BID- Metronidazole 250mg QID- Pepto-Bismol 2mg PO QID- Repeat EGD in 8-[address] Dominguez to document healing of gastriculcers.2. Acute hypoxic respiratory failure- Resolved- CXR ordered: Possible stable trace left pleural effusion.- Sputum cx: Normal oropharyngeal robin- One more dose Lasix 40mg IV- Duonebs scheduled- Speech evaluation- Net 2L negative3. Persistent Atrial Fibrillation with RVR- EP consulted: Amiodarone gtt d/c, daily digoxin d/c. Lopressor IV andscheduled. One dose of Coreg given.- Possibly 2/2 severe anemia/GI bleed/shock- 6-7 beat run of VTach/PVCs this AM- Digoxin level: 0.79 (low)- Echo: LVEF is 55-60% no systolic dysfunction, IVC does not collapse >50%with inspiration.4. Reactive Leukocytosis- WBC: 13.295. COPD- Not currently in exacerbation- Duonebs q4 PRN6. Hypophosphatemia- Sodium phosphate IV BID- Ionized Ca was low; will be repleted.- Continue to monitor and replete7. ICU PPx- Protonix 40mg BID- SCDs8. Possible trauma line infection- Line was removed and central line placed- Blood cultures: No growth- Central line can be removed at this point if peripheral line can beplaced9. Disposition- H/H daily- Gen surg/GI signed off- Outpatient H. Pylori Tx/EGD- Patient has persistent AFib with occasional PVCs/VTach. EP is consultedand following. Continue Lopressor per EP.- Formal speech evaluation- Patient's abdominal pain improved slightly after BM.- Remove central line if peripheral line can be placedSIGNATURE: Kalyan Reich MD PATIENT NAME: Cristina MooreTE: June 28, 2017 : 9:02 AM Normal [facility] Phosphorus Bloodon 8 Phosphate 2.1 mg/dL Low 2.5-4.[address] [facility] Comment on above: Performed By: #### R BCPS ####[facility] [place] [address] Phosphate 2.1 mg/dL Low 2.5-4.[address] [facility] Comment on above: Performed By: #### R BCPS ####[place] [address] THERAPY NTon 06-28-2017 THERAPY NT HNO ID: [id number] thor: Michaela ([facility]-Puppy Trainer) ELLIOTT Salcido/SLPService: Speech/SwallowAuthor Type: Speech Language PathologistType: Therapy (PT/OT/Speech/Resp)Filed: 06/28/2017 11:30 AMNote Text:Speech Therapy Clinical Swallow EvaluationSERVICE DATE: 06/28/2017SERVICE TIME: 1050 to 1115ROOM: [id number] Recommendations: See swallow guide posted in patientsroom;Reinforce use of swallowing strategiesDiet Recommendations:Regular Consistency;Thin liquidsSwallowing Precautions Recommendations:? Alert (patient should be fully alert for P.O. Intake);? Alternate bites and sips;? Feed / Eat at a slow rate;? Sit upright 90 degrees for all PO;? Small Bite/Sip;? Supervision/Assistance for meals.Results and Recommendations Discussed With: Patient;NurseRecommended Discharge Disposition: Subacute/SNFJustification For Post Acute Needs: Willing to participate;May nottolerate higher intensity programingIMPRESSION:Patient demonstrates mild oropharyngeal dysphagia which is negativelyimpacting his/her ability to effectively maintain adequate nutrition andhydration and/or airway safety.Rehabilitation Precautions: Modified Diet;Aspiration PrecautionsASSESSMENT:-Patien t alert, up in bed, agreeable to evaluation-Reported anxiety with family present for evaluation, able to participatefully when family left the room-Intubated 06/22-06/27-Voice is hoarse, will monitor, may need ENT if does not improve-Passed RN swallow screen-Able to feed self with set up assist-Oral transit timely and sufficient for puree-Increased mastication time d/t dentition, min oral residue, able to clearwith liquid wash-Laryngeal movement clinically delayed upon palpation of swallow-Respiratory rate 25-33 during evaluation, RN informed-No cough, throat clear, or change in vocal quality with poTolerated Full SessionGoals for Plan of Care:Swallow Goals:-Patient will tolerate Regular Consistency diet consistency whileutilizing compensatory/swallowing strategies given minimal cues in 90% oftrials so that the patient will minimize the signs/symptoms of dysphagia.-Patient will tolerate Thin Liquids consistency while utilizingcompensatory/swallow ing strategies given minimal cues in 90% of trials sothat the patient will minimize the signs/symptoms of dysphagia.-Patient, Caregiver, Family will demonstrate adequate return of knowledgeof all compensatory strategies/instruction to effectively assist thepatient in immediate safety with oral intake and swallowing.Patient /Caregiver Goals: Eat/Drink Without RestrictionsRehab Potential: GoodPLAN:Treatment Frequency (times per week): 3 Current admissionTreatment Interventions: Dysphagia ManagementPlan of Care Developed with: PatientTREATMENT INTERVENTIONS:Therapy Diagnosis: Dysphagia, oropharyngeal phaseInterventions Provided: Clinical Swallow Evaluation (67254)$ Clinical Swallow Evaluation (22272) Billed Units: 1 unitTotal Treatment Time (minutes): 25FUNCTIONAL G CODE:G Code Functional Limitations: Swallowing (06/28/17 105)Swallow Current Status (G8996): CJ (06/28/17 1050)Swallow Goal Status (G8997): CI (06/28/17 1050)Based on clinical assessment and the score on the Functional CommunicationMeasure (FCM), the G code and corresponding severity modifiers aredocumented above.SUBJECTIVE:Current Hospital Course: Chart reviewed;Reason for admission: presented to [facility] with dyspnea who received abreathing treatment and then became increasingly altered, believed to bein hypovolemic/hemorrhagic shock from a GI bleedReason for ST consult: concern for dysphagia post extubationNo past medical history on file.Patient Report: "I'm getting anxious"Home EnvironmentPrior Swallowing Function/Diet Textures: Regular Consistency;Thin liquidsPlease see discipline specific clinical documentation flowsheet forcomplete details for this therapy evaluation/treatment.SIGNATAHMET E: Michaela Salcido [facility] PATIENT NAME: Cristina JeffreyDATE: June 28, 2017 : 11:20 AM PAGER: [phone] Normal [facility] Troponin Ion 06-28-2017 Troponin I.cardiac mass conc 0.064 ng/mL High 0.015-0.[address] [facility] Comment on above: Performed By: #### R BCPS ####[place] [address] Venous Blood Gason 8 FIO2 28 % Normal [facility] Comment on above: Performed By: #### R BCPS ####[place] [address] Base Excess 0.1 mEq/L Normal -2.5 to 2.[address] [facility] Comment on above: Performed By: #### R BCPS ####[place] [address] Bicarbonate (HCO3) 24.8 mmol/L Normal 22.0-26.[address] [facility] Comment on above: Performed By: #### R BCPS ####[place] [address] Body temperature 37.[address] [facility] Comment on above: Performed By: #### R BCPS ####[place] [address] CO2 40.5 mm Hg Normal 38.0-49.[address] [facility] Comment on above: Performed By: #### R BCPS ####[place] [address] O2% Sat Venous 67.5 % Low 70.0-80.[address] [facility] Comment on above: Performed By: #### R BCPS ####[address], [place] [address] pH Venous 7.406 Normal 7.320-7.[address] [facility] Comment on above: Performed By: #### R BCPS ####[facility] [place], [place] [address] PO2 Venous 37.7 mm Hg Normal 35.0-45.[address] [facility] Comment on above: Performed By: #### R BCPS ####[facility] [place] [address] Basic Panelon 06-27-2017 Creatinine 0.67 mg/dL Normal 0.67-1.[address] [facility] Comment on above: Performed By: #### R BCPS ####[place] [address] Anion gap 10 mmol/L Normal 8-[address] [facility] Comment on above: Performed By: #### R BCPS ####[address] [address] CO2 26 mmol/L Normal 21-[address] [facility] Comment on above: Performed By: #### R BCPS ####[address] [address] Glucose mass conc 108 mg/dL High 70-[address] [facility] Comment on above: Performed By: #### R BCPS ####[address] [address] Urea nitrogen 20 mg/dL High 7-[address] [facility] Comment on above: Performed By: #### R BCPS ####[facility] [place], [place] [address] Calcium 7.5 mg/dL Low 8.5-10.[address] [facility] Comment on above: Performed By: #### R BCPS ####[place] [address] Chloride 106 mmol/L Normal 98-[address] [facility] Comment on above: Performed By: #### R BCPS ####[address] [address] Potassium molar conc 3.7 mmol/L Normal 3.5-5.1 [facility] Comment on above: Performed By: #### R BCPS ####[facility] [place], [place] [address] Sodium 138 mmol/L Normal 136-[address] [facility] Comment on above: Performed By: #### R BCPS ####[facility] [place], [place] [address] Creatinine 0.62 mg/dL Low 0.67-1.[address] [facility] Comment on above: Performed By: #### R BCPS ####[facility] [place], [place] [address] Glucose mass conc 96 mg/dL Normal 70-[address] [facility] Comment on above: Performed By: #### R BCPS ####[address] [address] Urea nitrogen 18 mg/dL Normal 7-[address] [facility] Comment on above: Performed By: #### R BCPS ####[address] [address] Anion gap 8 mmol/L Normal 8-[address] [facility] Comment on above: Performed By: #### R BCPS ####[address] [address] Calcium 7.5 mg/dL Low 8.5-10.[address] [facility] Comment on above: Performed By: #### R BCPS ####[address] [address] CO2 25 mmol/L Normal 21-[address] [facility] Comment on above: Performed By: #### R BCPS ####[address] [address] Chloride 109 mmol/L High 98-[address] [facility] Comment on above: Performed By: #### R BCPS ####[address] [address] Potassium molar conc 4.0 mmol/L Normal 3.5-5.1 [facility] Comment on above: Performed By: #### R BCPS ####[place] [address] Sodium 138 mmol/L Normal 136-[address] [facility] Comment on above: Performed By: #### R BCPS ####[facility] [place] [address] CHEST 1 VIEWon 06-27-2017 CHEST 1 VIEW Performed at [facility] APPROVED BY: Porfirio Figueroa MD EXAM TITLE: CHEST 1 VIEW DATE: 06/27/2017 10:24 INDICATION: Congestive heart failure COMPARISON: 06/26/2017 FINDINGS: The endotracheal tube, esophagogastric tube, and left central venous catheter are stable. Lungs are otherwise clear. There may be a trace left pleural effusion. There is no visible pneumothorax or EKG leads are noted. The heart is not enlarged. IMPRESSION: Possible stable trace left pleural effusion. Normal [facility] CONSULT PROGon 06-27-2017 Protein mass conc HNO ID: [id number] thor: Andrade RiverainoService: GastroenterologyAuthor Type: PhysicianType: Consult Progress NoteFiled: 06/27/2017 1:02 PMNote Text:GI CONSULT PROGRESS NOTESERVICE DATE: 06/27/2017SERVICE TIME: 12:58 PMCONSULTING SERVICE: GastroenterologySubjectiveINT ERVAL HISTORY: Pt intubated still but alertMEDICATIONS:Current hospital medications:digoxin 125 mcg injection (LANOXIN) 125 mcg INTRAVENOUS DAILYpropofol infusion (DIPRIVAN) 5-50 mcg/kg/min INTRAVENOUS CONTINUOUSamoxicillin 1,000 mg cap(s) (POLYMOX, AMOXIL) 1,000 mg ORAL q 12 Hclarithromycin 500 mg tab(s) (BIAXIN) 500 mg ORAL q 12 Hpill manager critical care unit (patient-specific) 1 Each Miscell. (Med.Supl.;Non-Drugs) PRNipratropium-albuterol 3 mL nebulizer solution (DUONEB) 3 mL INHALATION q 4H PRNamiodarone 360 mg in D5W 200 mL (NEXTERONE) 0.5-1 mg/min INTRAVENOUSCONTINUOUSfentaNYL 50 mcg/mL 25 mcg injection (SUBLIMAZE) 25 mcg INTRAVENOUS q 2 HPRNpantoprazole 40 mg injection (PROTONIX) 40 mg INTRAVENOUS BID AC(0600/1600)potassium chloride 80-120 mEq oral liquid 80-120 mEq ORAL/FEEDING TUBE PRNpotassium chloride iv piggyback 20 mEq in sterile water 100 mL 60-120 mEqINTRAVENOUS PRNmagnesium sulfate in water 2 g in sterile water 50 ml 2 g INTRAVENOUS PRNcalcium gluconate 4 g in NaCl 0.9% 250 mL 4 g INTRAVENOUS PRNChlorhexidine Gluconate 0.12 % 15 mL (PERIDEX) 15 mL ORAL q 12 HObjectivePHYSICAL EXAM:VITALS:BP 144/65 Pulse 88 Temp 37.4 ?C (99.3 ?F) Resp (!) 37 Ht177.8 cm (5' 10") Wt 103.1 kg (227 lb 4.7 oz) SpO2 99% BMI 32.61kg/e3QPGFLGI:DATA:Diagno stic tests reviewed for today's visit:Most recent labs and imaging results.Recent Labs 06/27/1815335WBC 11.59* -- -- 14.53* -- -- -- 18.57*HB 8.0* 8.1* -- 8.4* < > -- < > 9.5*HCT 24.4* -- -- 25.1* -- -- -- 27.8*PLT 163 -- -- 138* -- -- -- 140*NA 138 -- -- 141 -- -- -- 142K 4.0 -- -- 3.2* -- -- -- 3.9CHLOR 109* -- -- 110* -- -- -- 112*CO2 25 -- -- 26 -- -- -- 28CREAT 0.62* -- -- 0.63* -- -- -- 0.68BUN 18 -- -- 21* -- -- -- 18GLUC 96 -- -- 99 -- -- -- 129*P 1.9* -- -- 2.0* -- 1.1* -- --TPROT -- -- -- 4.8* -- -- -- --ALB -- -- -- 1.7* -- -- -- --MG -- -- 2.3 -- -- -- -- --CA 7.5* -- -- 6.7* -- -- -- 6.9*ALKPHOS -- -- -- 53 -- -- -- --TBILI -- -- -- 1.1* -- -- -- --AST -- -- -- 30 -- -- -- --ALT -- -- -- 66 -- -- -- --< > = values in this interval not displayed.Impression/Recommen dations1. UGIB from antral and pre-pyloric Kaveh. Has had 2 EGDs for clipping andEpi injection.-Eventual IR embolization of branches of GDA and gastroepiploic-No further overt blood loss - no BM today or yesterday-Hgb stable-ASA and Prednisone on hold.?-Suggest continue Protonix 40mg IV bid-Pathology shows +HP-Tolerating tube feeds-If rebleeds would send back to IR for possible repeat embolization vs.Surgery?2. Acute blood loss anemia-as above3. H. Pylori gastritis-could treat as outpatient: would recommend 2 weeks of PPI BID,doxycycline 100 mg BID, metronidazole 250 mg po QID and Peptobismal 2 poQIDWill sign off - call with questionsWould recommend repeat EGD in 8-[address] Dominguez to document healingof 'sSIGNATURE: Andrade Pena MD PATIENT NAME: Cristina JeffreyDATE: June 27, 2017 : 12:54 PM PAGER/CONTACT #: [phone] Normal [facility] Digoxin,Randomon 06-27-2017 INR Coag RelTime (Bld) 0.79 ng/ml Low 0.80-2.[address] [facility] Comment on above: Performed By: #### R BCPS ####[place] [address] Hemogramon 06-27-2017 Erythrocyte distribution width Auto Ratio (RBC) 17.1 % High 11.6-14.[address] [facility] Comment on above: Performed By: #### R BCPS ####[place] [address] Erythrocytes (RBC) 2.75 mil/cmm Low 4.63-6.08 [facility] Comment on above: Performed By: #### R BCPS ####[facility] [place], [place] [address] Hematocrit (HCT) 24.4 % Low 40.1-51.[address] [facility] Comment on above: Performed By: #### R BCPS ####[place] [address] Hemoglobin mass conc (Bld) 8.0 g/dL Low 13.7-17.[address] [facility] Comment on above: Performed By: #### R BCPS ####[place] [address] MCH 29.1 pg Normal 25.7-32.[address] [facility] Comment on above: Performed By: #### R BCPS ####[place] [address] MCHC mass conc (RBC) 32.8 % Normal 32.3-36.5 [facility] Comment on above: Performed By: #### R BCPS ####[place] [address] MCV 88.7 fL Normal 83.2-95.[address] [facility] Comment on above: Performed By: #### R BCPS ####[place] [address] Nucleated erythrocytes 0.04 thou/cmm High 0.00-0.[address] [facility] Comment on above: Performed By: #### R BCPS ####[place] [address] Nucleated RBC % 0.3 % High 0.0-0.[address] [facility] Comment on above: Performed By: #### R BCPS ####[place] [address] Platelet mean volume (PMV) 9.6 fL Normal 8.7-12.[address] [facility] Comment on above: Performed By: #### R BCPS ####[place] [address] Platelets 163 thou/cmm Normal 141-[address] [facility] Comment on above: Performed By: #### R BCPS ####[facility] [place], [place] [address] RDW SD 53.2 fl High 36.1-45.[address] [facility] Comment on above: Performed By: #### R BCPS ####[facility] [place], [place] [address] WBC (Leukocytes) 11.59 thou/cmm High 4.23-9.07 [facility] Comment on above: Performed By: #### R BCPS ####[facility] [place], [place] [address] MDRD GFRon 06-27-2017 eGFR (non-black) mL/min/{1.73_m2} Normal >60mL/m in/ 1.73m2 [facility] Comment on above: Result Comment: If t he patient is , multiply the result by 1.210. Performed By: #### R BCPS ####[address] [address] eGFR (non-black) mL/min/{1.73_m2} Normal >60mL/m in/ 1.73m2 [facility] Comment on above: Result Comment: If t he patient is , multiply the result by 1.210. Performed By: #### R BCPS ####[address] [address] NURSING PROGon 06-27-2017 Protein mass conc HNO ID: [id number] thor: Lili (Rn) KELLY Venegaservice: ADT-MICUAuthor Type: Registered NurseType: Nursing Progress NoteFiled: 06/27/2017 10:15 AMNote Text:Pt remains intubated with a miranda, Central Line AND feeding Tube - ptrequirement restraints d/t use of Diprivan, pt awake/sleeping on AND off Normal [facility] Protein mass conc HNO ID: [id number] Author: Carlee BarnettRn) Jane, RN Service: ADT-SICU Author Type: Registered Nurse Type: Nursing Progress Note Filed: 06/27/2017 6:23 AM Note Text: Scanned bladder > 200 ml replaced miranda Normal [facility] PROGRESSon 06-27-2017 Protein mass conc HNO ID: [id number] thor: Pierce FuentesProMedica Memorial Hospitalice: General SurgeryNorthern Navajo Medical Centerho Type: ResidentType: Brenda NotesFiled: 06/27/2017 6:40 PMNote Text: At testation signed by Ellen Kelley at 06/27/2017 8:22 PM [facility] STAFF:I have personally seen and evaluated this patient and participated in the keycomponents of this encounter. I discussed the management of this case with theresidents and independently confirmed the findings and plan of care asdocumented either attached or in their separate note from today. Anycorrections or additional notes are made as needed.Hgb stable without evidence of ongoing bleeding. Will sign off. Please callwith questions/concerns. Thank you. =Ellen Kelley MD Pt currently w/o signs of bleeding x48h. GI following as well. H/Hstable, no blood transfusions. No acute surgical intervention.Will sign off, please call if pt continues to bleed requiring surgicalintervention.D/w Dr. Kelley.Pierce Montiel MDGeneselect medical [facility], [facility] Surgery Chief ResidentPromedica Fostoria [facility] 2017 6:40 [facility] #: Pager: [phone] Normal [facility] Protein mass conc HNO ID: [id number] thor: Kalyan Sahu PereraService: Critical CareAuthor Type: ResidentType: Progress NotesFiled: 06/27/2017 4:31 PMNote Text: At testation signed by Pilar Peoples at 06/28/2017 6:56 [facility] STAFF PHYSICIAN NOTE OF PERSONAL INVOLVEMENT IN CAREI have reviewed the progress note obtained and documented by the resident and Ipersonally participated in the rivera components. I have discussed the case andmanagement of the patient's care. Please see my same day note for details.SIGNATURE: MAICO Rome INSTITUTEDATE of SERVICE: June 28, 2017TIME of SERVICE: 6:56 AM MICU - PROGRESS NOTESERVICE DATE: 06/27/2017SERVICE TIME: 9:02 AMAdmission Date: 06/21/2017AGE: 72 year oldLOS: 4 daysSubjectiveREASON FOR ICU ADMISSION: GI BleedingPatient is a 71 yo M with PMHx COPD, HTN, HD, and possible alcohol abusehistory who is being managed for acute hypovolemic/hemorrhagic shock 2/2GI bleed.Patient was intubated for airway protection and has multiple antral andpyloric ulcers with one visible vessel s/p clipping with repeat EGD.Continued oozing required IR guided embolization of gastroduodenal andgastroepiploic arteries on 06/23. Patient received massive transfusionprotocol on admission. Patient was started on TF yesterday and treatmentfor H. Pylori per GI recommendations, as well digoxin daily per EPrecommendations.This AM, patient was seen and examined and was doing well. The patient wasextubated in the afternoon.ObjectivePROBLEMS: ACTIVE PROBLEM LISTShock (Hcc)Copd (Chronic Obstructive Pulmonary Disease) (Hcc)HypertensionHyperlipidem iaGI BleedingAcute Respiratory Failure With Hypoxia and Hypercapnia (Hcc)Acute Blood Loss AnemiaHemorrhagic Shock (Hcc)HypophosphatemiaAtrial Fibrillation With Rapid Ventricular Response (Hcc)No past medical history on file.No past surgical history on file.Social History Marital status: Spouse name: Years of education: Number of children:Social History Main TopicsVITAL SIGNS (last 24hrs min/max):Temp Av.8 ?C (100.1 ?F) Min: 37.4 ?C (99.3 ?F) Max: 38.4 ?C (101.1?F)Pulse Av.7 Min: 109 Max: 170Arterial BP 1 Min: 80/46 Max: 138/68Cuff BP Min: 79/57 Max: 125/72Pain Score: 0/10Vital signs reviewed.BP 100/67 Pulse 82 Temp (Src) 98.6 (Axillary) Resp 24 Ht 5' 10"(1.78m) Wt 227 lb 4.7 oz (103.1kg) SpO2 99% BMI 32.61 kg/(m2).Temp (24hrs), Av.2 ?C (99 ?F), Min:36.6 ?C (97.9 ?F), Max:37.7 ?C(99.9 ?F)NET FLUID BALANCEIntake/Output Summary (Last 24 hours) at 06/27/17 0830Last data filed at 06/27/17 0600 Gross per 24 hourIntake 2484.2 mlOutput 991 mlNet 1493.2 mlMEDICATIONSCurrent Facility-Administered Medications:digoxin 125 mcg injection (LANOXIN) 125 mcg INTRAVENOUS DAILYpropofol infusion (DIPRIVAN) 5-50 mcg/kg/min INTRAVENOUS CONTINUOUSdilTIAZem 100 mg in D5W 100 mL ADD-Arvilla (CARDIZEM) 5-15 mg/hrINTRAVENOUS CONTINUOUSamoxicillin 1,000 mg cap(s) (POLYMOX, AMOXIL) 1,000 mg ORAL q 12 Hclarithromycin 500 mg tab(s) (BIAXIN) 500 mg ORAL q 12 Hpill manager critical care unit (patient-specific) 1 Each Miscell. (Med.Supl.;Non-Drugs) PRNipratropium-albuterol 3 mL nebulizer solution (DUONEB) 3 mL INHALATION q 4H PRNamiodarone 360 mg in D5W 200 mL (NEXTERONE) 0.5-1 mg/min INTRAVENOUSCONTINUOUSfentaNYL 50 mcg/mL 25 mcg injection (SUBLIMAZE) 25 mcg INTRAVENOUS q 2 HPRNpantoprazole 40 mg injection (PROTONIX) 40 mg INTRAVENOUS BID AC(06/1599)dextrose 5% in NaCl 0.45% with 20 mEq/L KCl iv infusion 60 mL/hrINTRAVENOUS CONTINUOUSpotassium chloride 80-120 mEq oral liquid 80-120 mEq ORAL/FEEDING TUBE PRNpotassium chloride iv piggyback 20 mEq in sterile water 100 mL 60-120 mEqINTRAVENOUS PRNmagnesium sulfate in water 2 g in sterile water 50 ml 2 g INTRAVENOUS PRNcalcium gluconate 4 g in NaCl 0.9% 250 mL 4 g INTRAVENOUS PRNChlorhexidine Gluconate 0.12 % 15 mL (PERIDEX) 15 mL ORAL q 12 HLines, Drains, and Airways Line Central Line Triple Lumen 06/25/17 1830 Non-tunneled Left Neck 1 day Drain GI Feed/Drain 06/21/171999 Oral Gastric Midline 16 Fr 5 days Drain/Tube 06/25/171999 Assessment Buttocks 1 day Indwelling Urinary Catheter 06/27/17 0631 Assessment 16 Fr less than 1day Airway Airway Endotracheal Tube 06/21/17 1545 5 daysPHYSICAL EXAM PERFORMED:General: Patient is intubated and sedatedCardiovascular: Irregularly irregular rate and rhythmRespiratory: Coarse breath sounds bilaterallyAbdomen: Soft and NontenderExtremities: Edema- NoNeurologic: Follows commands, intubatedRespiratory/Nursing Documentation:O2 Therapy: Ventilator (06/27/17699)Invasive Ventilator Mode: Pressure Regulated Volume Control ()Set Ventilator Respiratory Rate (BPM): 12 (06/27/17699)Total Respiratory Rate (BPM): 25 (06/27/17699)Tidal Volume Set (mL): 500 (06/27/17699)Exhaled Tidal Volume (mL): 524 (06/26/17 1550)Minute Volume (L): 13.6 (06/27/17699)Peak Inspiratory Pressure (cm H2O): 24 (06/27/17699)PEEP/CPAP (cm H2O): 5 (06/27/17699)HEMODYNAMIC DATA: ReviewedNUTRITION:Enteral Feeds: YesTF: 10 ml/hr, 30 ml water flush q4 (trickle feeds)D5 Half NS with 20 KCl at 60 ml/hrDATA: Diagnostic tests reviewed for today's visit, films/specimens werepersonally reviewed by me:Most recent labs and imaging results.LABS:Recent Labs 06/26/1810DIGOXIN 0.79* -- -- --WBC 11.59* -- -- 14.53*RBC 2.75* -- -- 2.85*HB 8.0* < > -- 8.4*HCT 24.4* -- -- 25.1*MCV 88.7 -- -- 88.1PLT 163 -- -- 138*GLUC 96 -- -- 99BUN 18 -- -- 21*CREAT 0.62* -- -- 0.63*NA 138 -- -- 141K 4.0 -- -- 3.2*CHLOR 109* -- -- 110*CO2 25 -- -- 26TPROT -- -- -- 4.8*ALB -- -- -- 1.7*CA 7.5* -- -- 6.7*ALKPHOS -- -- -- 53TBILI -- -- -- 1.1*AST -- -- -- 30ALT -- -- -- 66MG -- -- 2.3 --06/23 CXR:IMPRESSION:?No acute radiographic abnormality. ?The right costophrenic angle is cutoff of the?chest radiograph.?Stable appearance to the chest as compared to the previous exam.06/21 Surgical Pathology:FINAL DIAGNOSIS:GASTRIC BIOPSIES (BODY AND ANTRUM) - EXTENSIVE CHRONIC AND ACTIVE ACUTEGASTRITIS WITH ULCERATION AND NUMEROUS HELICOBACTER PYLORI ORGANISMS.COMMENT: ?The presence of numerous Helicobacter pylori is confirmed onthe immunostain.OPERATIVE PROCEDURE:?EGDCLINICAL INFORMATION:?GI bleed, UlcersDigoxin Level: 0.79 (low)Sputum Culture: Normal oropharyngeal floraBlood Culture: No growth at 1 day (previous cultures had no growth at 4days)Device Culture: No growth at 2 days06/26 CXR:IMPRESSION:?Mild left basilar pleural-parenchymal opacity, likely representing traceeffusionwith associated left basilar atelectasis and/or infiltrate. ?Findingsappearsimilar.?Suppo rt devices as noted.06/26 TTE:Normal LV size and systolic function. No regional wall abnormalities. LVEFis 55-60%.The inferior vena cava is normal in size but does not collapse >50% withinspiration. RA pressure is 8 mmHg.RV is not well visualized. Grossly normal size andLeft VentricleNormal left ventricular size and systolic function. No regional wallmotionabnormalities. LVEF is 55-60% by visual estimation.Normal left ventricular wall thickness.Diastolic dysfunction could not be reliably determined due to arrhythmia.Rest Echo FindingsAll wall segments showed normal motion.Right VentricleThe right ventricle is not well visualized. On limited views, it hasgrossly normalsize and mildly reduced function.Left AtriumThe left atrium appears normal in size. WENDY is 25.23 ml/m2.Right AtriumThe right atrium appears dilated in size.The right atrium measures 21 cm2 by planimetry in the apical 4-chamberview.Mitral ValveStructurally normal mitral valve with trivial mitral regurgitation.Aortic ValveThe aortic valve is structurally normal and trileaflet, without evidenceof stenosis orregurgitation.Tricuspid ValveStructurally normal tricuspid valve with trivial tricuspid regurgitation.No evidence of pulmonary hypertension.Right ventricular systolic pressure is estimated at 32 mmHg.Pulmonic ValveThe pulmonic valve is structurally normal with trace pulmonicregurgitation.Pulmona ry ArteryThe pulmonary artery is not well visualized.Ascending AortaThe ascending aorta and aortic root appear normal in size.PericardiumNo evidence of pericardial effusion.Cardiac ShuntThere is no evidence of interatrial shunting by color Doppler.Vena CavaThe inferior vena cava is normal in size but does not does not collapse >50% with inspiration.Right atrial pressure is estimated at 8 mmHg.Assessment/PlanIMPRESSIO N:Critical Care Documentation: The patient has the following organ/systemimpairment(s): Circulatory shock1. Hemorrhagic Shock 2/2 UGIB- Hgb: 8.0. Slightly decreasing, possibly 2/2 dilution via IVF.- H/H daily- GI, Gen Surg consulted and following- No output from OG and FMS- S/P IR embolization of gastroduodenal and gastroepiploic arteries on 06/23- Eventual IR embolization of branches of gastroduodenal andgastroepiploic arteries- Blood cultures: No growth2. H. Pylori infection- Protonix 40mg IV- Amoxicillin 1,000mg BID- Clarithromycin 500mg BID2. Acute hypoxic respiratory failure- Improving- Patient is intubated, SBT and possible extubation today- Propofol gtt for sedation. Titrate to RAAS 0 to -1- CXR ordered: left basilar infiltrate vs. atelectasis- Sputum cx: Normal oropharyngeal robin- D/C IVF- Lasix 40mg IV with goal of net 1L negative- BMP and PO4- CXR in AM tomorrow3. Persistent Atrial Fibrillation with RVR- On amiodarone gtt- EP consulted: Continue IV amiodarone gtt, daily digoxin. HR goal of<120. No need for cardizem gtt at this time.- Added 125mcg Digoxin IV daily- Digoxin level: 0.79 (low)- Discontinued cardizem gtt- Echo: LVEF is 55-60% no systolic dysfunction, IVC does not collapse >50%with inspiration.4. Reactive Leukocytosis- Improving5. COPD- Not currently in exacerbation- Patient is intubated- Duonebs q4 PRN6. Hypophosphatemia- Sodium phosphate IV BID- Ionized Ca was low; will be repleted.- Continue to monitor and replete7. ICU PPx- Protonix 40mg BID- SCDs8. Possible trauma line infection- Line was removed and central line placed- Blood cultures: No growth9. Disposition- Extubated today- Continue H. Pylori treatment- H/H daily- CXR in AM tomorrow- Follow gen surg/GI recommendationsSIGNATURE: Kalyan Reich MD PATIENT NAME: Cristina JeffreyDATE: June 27, 2017 : 9:02 AM Normal [facility] Protein mass conc HNO ID: [id number] thor: Giselle ([facility]) CroomService: ElectrophysiologyAuthor Type: Nurse PractitionerType: Progress NotesFiled: 06/27/2017 4:37 PMNote Text:HRA PROGRESS NOTE EP CARDIOLOGY SERVICESERVICE DATE: 06/27/2017SERVICE TIME: 4:26 PMSubjectiveINTERIM HISTORY: Cristina Jeffrey is s/p extubation today. He converted to SRaround 4:30 am. He reports that he doesn't have a history of atrialfibrillation but has had palpitations in the past. He has taken ASA in thepast and he has never taken oral anticoagulation. He denies CP, SOB,dizziness, syncopeObjectivePHYSICAL EXAM:Body mass index is 32.61 kg/(m2).O2 Therapy: Nasal CannulaNo Data RecordedPatient Vitals for the past 24 hrs: BP Temp Pulse Resp SpO2 Rvpgqb93/06/18 1530 - 37.8 ?C (100 ?F) 92 (!) 34 99 % -06/27/17 1500 136/73 37.7 ?C (99.9 ?F) 96 (!) 37 96 % -06/27/17 1400 140/75 37.4 ?C (99.3 ?F) 92 (!) 33 99 % -06/27/17 1330 - 37.3 ?C (99.1 ?F) 88 (!) 32 98 % -06/27/17 1300 118/69 37.4 ?C (99.3 ?F) 90 28 98 % -06/27/17 1200 129/65 37.5 ?C (99.5 ?F) 92 (!) 32 98 % -06/27/17 1100 144/65 37.4 ?C (99.3 ?F) 88 (!) 37 99 % -06/27/17 1048 138/67 - 93 - - -06/27/17 1030 - 37.2 ?C (99 ?F) 86 (!) 32 100 % -06/27/17 1000 138/67 37 ?C (98.6 ?F) 87 (!) 33 100 % -06/27/17 0900 121/70 36.6 ?C (97.9 ?F) 83 (!) 32 99 % -06/27/17 0830 - 36.8 ?C (98.2 ?F) 79 24 100 % -06/27/17 0800 103/67 36.7 ?C (98.1 ?F) 80 24 100 % -06/27/17 0700 107/70 36.7 ?C (98.1 ?F) 82 27 100 % -06/27/17 0600 100/67 37 ?C (98.6 ?F) 82 24 99 % -06/27/17 0500 94/67 37 ?C (98.6 ?F) 80 20 97 % -06/27/17 0400 114/76 36.9 ?C (98.4 ?F) (!) 126 26 99 % 103.1 kg (227 lb4.7 oz)06/27/17 0328 - - (!) 135 26 99 % -06/27/17 0200 101/71 - (!) 122 20 98 % -06/27/17 0100 106/72 36.8 ?C (98.2 ?F) 116 22 100 % -06/27/17 0000 114/75 36.8 ?C (98.2 ?F) (!) 121 26 99 % -06/26/17 2350 106/72 36.7 ?C (98 ?F) 118 20 100 % -06/26/17 2200 103/69 36.6 ?C (97.9 ?F) 112 21 100 % -06/26/17 2000 110/70 37.1 ?C (98.8 ?F) 120 24 100 % -06/26/17 1900 - - 105 22 99 % -06/26/17 1800 113/73 37.5 ?C (99.5 ?F) 120 27 99 % -06/26/17 1730 - 37.5 ?C (99.5 ?F) 119 26 (!) 86 % -06/26/17 1700 96/76 37.5 ?C (99.5 ?F) 112 23 100 % -Pleasant, comfortable, not in acute distress.Awake, alert, oriented times 3.Moves all extremities.SKIN: No rash or lumps.HEENT: Normocephalic, face symmetrical.NECK: Supple, no JVD, no carotid bruit, no thyromegaly.LUNGS: Clear to auscultation bilaterally.CARDIAC: PMI present, RRR, S1 and S2, no S3 or S4, no additional heartsounds or murmurs.ABDOMEN: Soft, nontender, bowel sounds present.EXTREMITIES: No ulcers, 1+ LE edema UE and LE bilat.PULSES: Peripheral pulses present.MEDICATIONS:Current hospital medications:sodium phosphate 40 mmol in D5W 250 mL 40 mmol INTRAVENOUS ONCEdigoxin 125 mcg injection (LANOXIN) 125 mcg INTRAVENOUS DAILYpill manager critical care unit (patient-specific) 1 Each Miscell. (Med.Supl.;Non-Drugs) PRNipratropium-albuterol 3 mL nebulizer solution (DUONEB) 3 mL INHALATION q 4H PRNamiodarone 360 mg in D5W 200 mL (NEXTERONE) 0.5-1 mg/min INTRAVENOUSCONTINUOUSfentaNYL 50 mcg/mL 25 mcg injection (SUBLIMAZE) 25 mcg INTRAVENOUS q 2 HPRNpantoprazole 40 mg injection (PROTONIX) 40 mg INTRAVENOUS BID AC(0600/1600)potassium chloride 80-120 mEq oral liquid 80-120 mEq ORAL/FEEDING TUBE PRNpotassium chloride iv piggyback 20 mEq in sterile water 100 mL 60-120 mEqINTRAVENOUS PRNmagnesium sulfate in water 2 g in sterile water 50 ml 2 g INTRAVENOUS PRNcalcium gluconate 4 g in NaCl 0.9% 250 mL 4 g INTRAVENOUS PRNDATA:Diagnostic tests reviewed for today's visit:Most recent labsMost recent telemetryPast 72 Hour Labs:Recent Labs 06/27/1802DIGOXIN -- 0.79* -- -- --WBC -- 11.59* -- -- 14.53*RBC -- 2.75* -- -- 2.85*HB -- 8.0* < > -- 8.4*HCT -- 24.4* -- -- 25.1*MCV -- 88.7 -- -- 88.1MCH -- 29.1 -- -- 29.5MCHC -- 32.8 -- -- 33.5PLT -- 163 -- -- 138*MPV -- 9.6 -- -- 9.6GLUC 108* 96 -- -- 99BUN 20* 18 -- -- 21*CREAT 0.67 0.62* -- -- 0.63*NA 138 138 -- -- 141K 3.7 4.0 -- -- 3.2*CHLOR 106 109* -- -- 110*CO2 26 25 -- -- 26TPROT -- -- -- -- 4.8*ALB -- -- -- -- 1.7*CA 7.5* 7.5* -- -- 6.7*ALKPHOS -- -- -- -- 53TBILI -- -- -- -- 1.1*AST -- -- -- -- 30ALT -- -- -- -- 66MG -- -- -- 2.3 --< > = values in this interval not displayed.Last Lab Drawn:LDL Chol, Mabel 110 02/23/2010ssessment/PlanPrinc ipal Problem: GI bleeding POA: Yes Assessment AND Plan: GI following. UGI bleed from Antral and prepyloricGUs s/p EGD, epi injection. S/p IR embolization of gastroduodenal andgastrioepiploic arteries on .? Acute respiratory failure with hypoxia and hypercapnia (HCC) POA: No Assessment AND Plan: s/p extubation.? Acute blood loss anemia POA: Yes Assessment AND Plan: s/p multiple transfusions? New onset Atrial fibrillation (HCC) POA: No Assessment AND Plan: telemetry shows SR 94 bpm, occasional PVC's,converted to SR at 4:30am. The atrial fibrillation is most likelysituational due to severe anemia, GI bleed, shock. The patient wasdiscussed with Dr. Maher. The Amiodarone gtt will be discontinued aswell as the IV Digoxin. He is chadsvasc of?2. He is at increasing risk forbleeding due to the most recent events. The use of oral ATC will bedeferred to GI and the primary service. EP will f/u tomorrow.??SIGNATURE: Michelle Weeks, MSN, OPTOMETRIC ASSISTANT PATIENT NAME: Cristina JeffreyDATE: June 27, 2017 : 4:26 PM PAGER/CONTACT #: [phone] [facility] Protein mass conc HNO ID: [id number] thor: Pilra Orozcoe: Critical CareAuthor Type: PhysicianType: Progress NotesFiled: 06/27/2017 2:36 PMNote Text:Please link this note to the resident's note completed on June 27, 2017.Impression/Recommendatio [facility] STAFF PHYSICIAN NOTE OF PERSONAL INVOLVEMENT IN CAREI have reviewed the note obtained and documented by the resident and Ipersonally participated in the rivera components. I have discussed the caseand management of the patient's care. The following comments revise orconfirm relevant rivera components of the note.I have personally seen and examined the patient.Interval findings: Following commands, off sedation. Passing SBT w/ RSBI's70s; lungs clear, ab distended but softEcho- EF 65%, Hb stable,Resp Cx normal oropharyngeal robin, rare WBCs Data: All data reviewed. All diagnostic tests, including labs/specimensand imaging, were personally reviewed by me.IMPRESSION/PLAN:Critical Care Documentation: The patient has the following organ/systemimpairment(s):71 yo WM w/ hx sig for COPD, HTN, HL, and ?alcohol abuse admitted w/ GIbleed c/b hemorrhagic shock??# Acute hypoxic failure requiring vent support in s/o shock; intubated formassive GI bleed/ airway protection; passing SBT on CPAP 5 today postdiuresis# A.fib with RVR related to acute anemia and acute illness- now ratecontrolled# Reactive leukocytosis- downtrending# Acute severe blood loss anemia and hemorrhagic shock at presentation;s/p 12?units of PRBC?transfusion- shock resolved# UGIB; PUD; s/p angio-embolization of gastroduodenal and gastroepiploicarteries# + H. Pylori associated gastritis/PUD# Mild thrombocytopenia# COPD- not in exacerbation# Hypophosphatemia ?# Hypocalcemia??Recs:- Will diuresis further 1L neg and extubate today- D/c all IVF- D/c sedation- Maintain miranda; accurate I/Os- Follow BMP, Phos- Replete lytes- Per GI, can treat H.pylori as outpatient w/ 2 weeks of PPI BID,doxycycline 100 mg BID, metronidazole 250 mg po QID and Peptobismal 2 poQID. Will d/c Amoxicillin and Clarithromycin.- Decrease Hb checks to daily; transfuse as needed for Hb <7- Appreciate EP inputs; dig loaded; Cont Dig 0.125mg daily- Follow Dig levels- c/w PPI BID- BDs prn- no lovenox- SCDs- ICU monitoring/supportive care?Prognosis: Guarded?Code Status: Full?Patient/Family Updated: Patient and/or family were updatedregarding?the?goals of care,?medical plan for the day, consultantrecommendations, medical disposition and current medicalcondition/prognosis as clinically indicated. All questions and concerns,if any, were answered and addressed at this juncture.This patient has a high probability of sudden, clinically significantdeterioration, which requires the highest level of physician preparednessto intervene urgently. I managed/supervised life or organ supportinginterventions that required frequent physician assessment. I devoted myfull attention to the direct care of this patient for the amount of timeindicated below. Time I spent with family or surrogate(s) is includedonly if the patient was incapable of providing the necessary informationor participating in medical decision making. Time devoted to teaching andto any procedures I billed separately is not included.Discussed with Respiratory therapist, Registered Nurse, Pharmacisit andResident.Time spent providing critical care services: 35 minutes, excludingprocedures.SIGNATURE : MAICO Rome INSTITUTEPAGER:[id number] of SERVICE: June 27, 2017TIME of SERVICE: 9:43 AM [facility] Phosphorus Bloodon 8 Phosphate 1.9 mg/dL Critically low 2.5-4.[address] [facility] Comment on above: Performed By: #### R BCPS ####[place] [address] Basic Panelon 06-26-2017 Creatinine 0.63 mg/dL Low 0.67-1.[address] [facility] Comment on above: Performed By: #### F FPXS ####[facility] [place], [place] [address] Anion gap 8 mmol/L Normal 8-[address] [facility] Comment on above: Performed By: #### F FPXS ####[facility] [place], [place] [address] CO2 26 mmol/L Normal 21-[address] [facility] Comment on above: Performed By: #### F FPXS ####[facility] [place], [place] [address] Glucose mass conc 99 mg/dL Normal 70-[address] [facility] Comment on above: Performed By: #### F FPXS ####[address] [address] Urea nitrogen 21 mg/dL High 7-[address] [facility] Comment on above: Performed By: #### F FPXS ####[place] [address] Calcium 6.7 mg/dL Low 8.5-10.[address] [facility] Comment on above: Performed By: #### F FPXS ####[address] [address] Chloride 110 mmol/L High 98-[address] [facility] Comment on above: Performed By: #### F FPXS ####[address] [address] Potassium molar conc 3.2 mmol/L Low 3.5-5.1 [facility] Comment on above: Performed By: #### F FPXS ####[place] [address] Sodium 141 mmol/L Normal 136-[address] [facility] Comment on above: Performed By: #### F FPXS ####[place] [address] CASE MANAGEMon 06-26-2017 CASE MANAGEM HNO ID: [id number] thor: Toshia (Rn) KELLY Dumaservice: Care ManagementAuthor Type: Registered NurseType: Care Mgt Progress NoteFiled: 06/26/2017 12:08 PMNote Text:CARE MANAGEMENT PROGRESS NOTESERVICE DATE: 06/26/2017SERVICE TIME: 12:06 PM LOS: 3 days Met with pt at bedside. On vent. Able to nod to questions. Reviewed thatonce off vent will get PT/OT evals. May need rehab prior to return home.SIGNATURE: Toshia Dumas RN PATIENT NAME: Cristina JeffreyDATE: June 26, 2017 : 12:05 PM PAGER/CONTACT #: [phone] [facility] CHEST 1 VIEWon 06-26-2017 CHEST 1 VIEW Performed at [facility] APPROVED BY: Gaudencio Devi MD EXAMINATION: CHEST RADIOGRAPH (SINGLE VIEW AP OR PA) Clinical History: Intubation. Pulmonary edemaM: [id number]_4Comparison: 06/25/2017 RESULT: Lines, tubes, and devices: Endotracheal tube at mid thoracic trachea level. Right-sided central venous catheter has been removed. Left IJ central venous catheter with tip at level of cavoatrial junction/upper right atrium. NG tube courses beneath the hemidiaphragms without visualization of its distal tip. Multiple leads and wires overlie the chest. Lungs and pleura: Mild left basilar pleural-parenchymal opacity. Lungs are otherwise grossly clear. No pneumothorax. Cardiomediastinal silhouette: Stable. Other: Bony structures unchanged. IMPRESSION: Mild left basilar pleural-parenchymal opacity, likely representing trace effusion with associated left basilar atelectasis and/or infiltrate. Findings appear similar. Support devices as noted. Normal [facility] CONSULT PROGon 06-26-2017 Protein mass conc HNO ID: [id number] thor: Andrade Olivaervice: GastroenterologyAuthor Type: PhysicianType: Consult Progress NoteFiled: 06/26/2017 12:29 PMNote Text:GI CONSULT PROGRESS NOTESERVICE DATE: 06/26/2017SERVICE TIME: 12:24 PMCONSULTING SERVICE: GastroenterologySubjectiveINT ERVAL HISTORY: pt still intubated and sedated, dark BM overnightMEDICATIONS:Current hospital medications:digoxin 125 mcg injection (LANOXIN) 125 mcg INTRAVENOUS DAILYpropofol infusion (DIPRIVAN) 5-50 mcg/kg/min INTRAVENOUS CONTINUOUSipratropium-albuter ol 3 mL nebulizer solution (DUONEB) 3 mL INHALATION q 4H PRNamiodarone 360 mg in D5W 200 mL (NEXTERONE) 0.5-1 mg/min INTRAVENOUSCONTINUOUSfentaNYL 50 mcg/mL 25 mcg injection (SUBLIMAZE) 25 mcg INTRAVENOUS q 2 HPRNperflutren lipid microspheres 1.1 mg/mL 1.3 mL injection (DEFINITY) 1.3 mLINTRAVENOUS PRN(NO DISPENSE)pantoprazole 40 mg injection (PROTONIX) 40 mg INTRAVENOUS BID AC(0600/1600)dextrose 5% in NaCl 0.45% with 20 mEq/L KCl iv infusion 60 mL/hrINTRAVENOUS CONTINUOUSpotassium chloride 80-120 mEq oral liquid 80-120 mEq ORAL/FEEDING TUBE PRNpotassium chloride iv piggyback 20 mEq in sterile water 100 mL 60-120 mEqINTRAVENOUS PRNmagnesium sulfate in water 2 g in sterile water 50 ml 2 g INTRAVENOUS PRNcalcium gluconate 4 g in NaCl 0.9% 250 mL 4 g INTRAVENOUS PRNChlorhexidine Gluconate 0.12 % 15 mL (PERIDEX) 15 mL ORAL q 12 HObjectivePHYSICAL EXAM:VITALS:BP 102/68 Pulse (!) 121 Temp 37.3 ?C (99.1 ?F) Resp 25 Ht177.8 cm (5' 10") Wt 100.5 kg (221 lb 9 oz) SpO2 98% BMI 31.79 kg/v5ALVHOMW: soft, NT, ND, +BSDATA:Diagnostic tests reviewed for today's visit:Most recent labs and imaging results.Recent Labs 06/27/1803WBC -- 14.53* -- -- -- 18.57* -- 15.91*HB -- 8.4* 8.4* -- 9.0* 9.5* < > 7.1*HCT -- 25.1* -- -- -- 27.8* -- 20.6*PLT -- 138* -- -- -- 140* -- 135*NA -- 141 -- -- -- 142 -- 142K -- 3.2* -- -- -- 3.9 -- 3.8CHLOR -- 110* -- -- -- 112* -- 110*CO2 -- 26 -- -- -- 28 -- 27CREAT -- 0.63* -- -- -- 0.68 -- 0.56*BUN -- 21* -- -- -- 18 -- 21*GLUC -- 99 -- -- -- 129* -- 166*P -- 2.0* -- 1.1* -- -- -- 0.9*TPROT -- 4.8* -- -- -- -- -- --ALB -- 1.7* -- -- -- -- -- --MG 2.3 -- -- -- -- -- -- --CA -- 6.7* -- -- -- 6.9* -- 7.0*ALKPHOS -- 53 -- -- -- -- -- --TBILI -- 1.1* -- -- -- -- -- --AST -- 30 -- -- -- -- -- --ALT -- 66 -- -- -- -- -- --< > = values in this interval not displayed.Impression/Recommen dations1. UGIB from antral and pre-pyloric Kaveh. Has had 2 EGDs for clipping andEpi injection.-Eventual IR embolization of branches of GDA and gastroepiploic-No further overt blood loss and OGT output is currently green-Hgb stable-ASA and Prednisone on hold.?-Suggest continue Protonix 40mg IV bid-F/U pathology and tx Hp if positive-ok for tube feeds per GI-If rebleeds would send back to IR for possible repeat embolization vs.Surgery2. Acute blood loss anemia-as abovewill continue to f/u the patientSIGNATURE: Andrade Pena MD PATIENT NAME: Cristina JeffreyDATE: June 26, 2017 : 12:24 PM PAGER/CONTACT #: [phone] [facility] Cult and Smr Respiratoryon 0 06-26-2017 Cult and Smr Respiratory Test performed at [facility] Normal oropharyngeal robin present. <25 epithelial cells per low power field Rare WBC No organisms seen Normal [facility] Comment on above: Performed By: #### R BCPS ####[facility] [place], [place] [address] Glucose Meteron 06-26-2017 Glucose mass conc 108 mg/dL High 70-[address] [facility] Comment on above: Performed By: #### R BCPS ####[facility] [place], [place] [address] Glucose mass conc 116 mg/dL High 70-[address] [facility] Comment on above: Performed By: #### R BCPS ####[address] [address] Glucose mass conc 121 mg/dL High 70- [facility] Comment on above: Result Comment: GREGORY PAEZ Performed By: #### T &S ####[address] [address] Glucose mass conc 118 mg/dL High 70-[address] [facility] Comment on above: Performed By: #### F FPXS ####[address] [address] Hemogramon 06-26-2017 Erythrocyte distribution width Auto Ratio (RBC) 17.3 % High 11.6-14.[address] [facility] Comment on above: Performed By: #### F FPXS ####[address] [address] Erythrocytes (RBC) 2.85 mil/cmm Low 4.63-6.08 [facility] Comment on above: Performed By: #### F FPXS ####[address] [address] Hematocrit (HCT) 25.1 % Low 40.1-51.[address] [facility] Comment on above: Performed By: #### F FPXS ####[address] [address] Hemoglobin mass conc (Bld) 8.4 g/dL Low 13.7-17.[address] [facility] Comment on above: Performed By: #### F FPXS ####[address] [address] MCH 29.5 pg Normal 25.7-32.[address] [facility] Comment on above: Performed By: #### F FPXS ####[place] [address] MCHC mass conc (RBC) 33.5 % Normal 32.3-36.5 [facility] Comment on above: Performed By: #### F FPXS ####[place] [address] MCV 88.1 fL Normal 83.2-95.[address] [facility] Comment on above: Performed By: #### F FPXS ####[place] [address] Nucleated erythrocytes 0.02 thou/cmm High 0.00-0.[address] [facility] Comment on above: Performed By: #### F FPXS ####[place] [address] Nucleated RBC % 0.1 % Normal 0.0-0.[address] [facility] Comment on above: Performed By: #### F FPXS ####[place] [address] Platelet mean volume (PMV) 9.6 fL Normal 8.7-12.[address] [facility] Comment on above: Performed By: #### F FPXS ####[place] [address] Platelets 138 thou/cmm Low 141-[address] [facility] Comment on above: Performed By: #### F FPXS ####[place] [address] RDW SD 53.6 fl High 36.1-45.[address] [facility] Comment on above: Performed By: #### F FPXS ####[place] [address] WBC (Leukocytes) 14.53 thou/cmm High 4.23-9.07 [facility] Comment on above: Performed By: #### F FPXS ####[place] [address] Hepatic Panelon 03-05-2018 Alkaline phosphatase (ALP) 53 U/L Normal 46-[address] [facility] Comment on above: Performed By: #### T &S ####[address] [address] Bilirubin Ql (U) 1.1 mg/dL High 0.2-1.[address] [facility] Comment on above: Performed By: #### T &S ####[facility] [place], [place] [address] Protein 4.8 g/dL Low 6.4-8.[address] [facility] Comment on above: Performed By: #### T &S ####[address] [address] Alanine aminotransferase (ALT) 66 U/L Normal 12-[address] [facility] Comment on above: Performed By: #### T &S ####[address] [address] Aspartate aminotransferase (AST) 30 U/L Normal 9-[address] [facility] Comment on above: Performed By: #### T &S ####[address] [address] Bilirubin (total) 0.58 mg/dL High 0.00-0.[address] [facility] Comment on above: Performed By: #### T &S ####[address] [address] Albumin 1.7 g/dL Low 3.4-5.[address] [facility] Comment on above: Performed By: #### T &S ####[address] [address] Hgbon 06-26-2017 Hemoglobin mass conc (Bld) 8.1 g/dL Low 13.7-17.[address] [facility] Comment on above: Performed By: #### R BCPS ####[address] [address] Hemoglobin mass conc (Bld) 8.4 g/dL Low 13.7-17.[address] [facility] Comment on above: Performed By: #### F FPXS ####[place] [address] [place], [place] [address] Ionized Calciumon 06-26-2017 Ionized Ca,PH7.4 3.67 mg/dL Low 4.36-4.[address] [facility] Comment on above: Performed By: #### T &S ####[address] [address] Ionized Calcium 3.65 mg/dL Low 4.43-4.[address] [facility] Comment on above: Performed By: #### T &S ####[address] [address] pH of blood 7.409 [pH] Normal 7.320-7.[address] [facility] Comment on above: Performed By: #### T &S ####[place] [id number] MDRD GFRon 06-26-2017 eGFR (non-black) mL/min/{1.73_m2} Normal >60mL/m in/ 1.73m2 [facility] Comment on above: Result Comment: If t he patient is , multiply the result by 1.210. Performed By: #### F FPXS ####[place] [id number] Magnesium Bloodon 06-26-2017 Magnesium 2.3 mg/dL Normal 1.6-2.[address] [facility] Comment on above: Performed By: #### T &S ####[place] [id number] NURSING PROGon 06-26-2017 Protein mass conc HNO ID: [id number] thor: Lili (Rn) KELLY Venegaservice: ADT-MICUAuthor Type: Registered NurseType: Nursing Progress NoteFiled: 06/26/2017 4:08 PMNote Text: nikos wrist restaints - pulls at tubings when not restrainded - willcontinue to monitor for need of restraints [facility] Protein mass conc HNO ID: [id number] Author: Carlee BarnettRn) GREGORY Lara Service: ADT-SICU Author Type: Registered Nurse Type: Nursing Progress Note Filed: 06/25/2017 10:12 PM Note Text: Patient still needs bilateral wrist restraints. When he has his arms released he goes for ET. Normal [facility] PROGRESSon 06-26-2017 Protein mass conc HNO ID: [id number] thor: Giselle (Business Performance Analyst) CroomService: ElectrophysiologyAuthor Type: Nurse PractitionerType: Progress NotesFiled: 06/26/2017 5:18 PMNote Text:PROGRESS NOTE CARDIOLOGY SERVICESERVICE DATE: 06/26/2017SERVICE TIME: 5:00 PMSubjectiveINTERIM HISTORY: Cristina Jeffrey is sedated and intubated. He is easilyaroused. He follows commands. Denies palpitationsObjectivePHYSICAL EXAM:Body mass index is 31.79 kg/(m2).O2 Therapy: VentilatorNo Data RecordedPatient Vitals for the past 24 hrs: BP Temp Pulse Resp SpO2 Otxqyg91/05/18 1550 - - (!) 122 22 99 % -06/26/17 1515 - 37.6 ?C (99.7 ?F) (!) 131 24 100 % -06/26/17 1500 114/78 37.7 ?C (99.9 ?F) (!) 128 29 100 % -06/26/17 1400 105/72 37.6 ?C (99.7 ?F) (!) 125 27 99 % -06/26/17 1322 - 37.5 ?C (99.5 ?F) (!) 129 26 100 % -06/26/17 1300 107/70 37.6 ?C (99.7 ?F) (!) 127 25 100 % -06/26/17 1200 96/71 37.5 ?C (99.5 ?F) (!) 131 29 97 % -06/26/17 1115 - 37.3 ?C (99.1 ?F) (!) 125 28 94 % -06/26/17 1112 - - (!) 121 25 - -06/26/17 1106 - - (!) 129 25 98 % -06/26/17 1100 92/63 37.3 ?C (99.1 ?F) (!) 122 25 100 % -06/26/17 1003 - - (!) 132 (!) 41 97 % -06/26/17 1000 113/81 37.3 ?C (99.1 ?F) (!) 125 (!) 39 100 % -06/26/17 0900 93/69 37.2 ?C (99 ?F) 119 29 95 % -06/26/17 0806 - - 117 25 - -06/26/17 0801 - - 113 26 94 % -06/26/17 0800 101/69 37.2 ?C (99 ?F) 115 27 93 % -06/26/17 0745 - 37.2 ?C (99 ?F) 119 24 96 % -06/26/17 0700 96/79 37.2 ?C (99 ?F) 116 20 100 % -06/26/17 0600 102/68 37.3 ?C (99.1 ?F) 119 26 100 % -06/26/17 0439 - - 119 28 100 % -06/26/17 0409 - - - - - 100.5 kg (221 lb 9 oz)06/26/17 0400 92/59 37.4 ?C (99.3 ?F) 115 23 100 % -06/26/17 0000 98/67 37.3 ?C (99.1 ?F) 120 23 100 % -06/25/17 2320 - - (!) 132 24 100 % -06/25/17 2200 89/61 37.4 ?C (99.3 ?F) 114 25 100 % -06/25/17 2100 94/66 38 ?C (100.4 ?F) (!) 126 24 100 % -06/25/17 2000 90/57 37.9 ?C (100.2 ?F) (!) 134 24 99 % -06/25/17 1744 - 37.4 ?C (99.3 ?F) (!) 130 25 97 % -Pleasant, comfortable, not in acute distress.Moves all extremities.SKIN: No rash or lumps.SKIN: Skin color, texture, turgor normal. No rashes or lesions.HEENT: Normocephalic, face symmetrical.NECK: Supple, no JVD, no carotid bruit, no thyromegaly.LUNGS: Clear to auscultation bilaterally.CARDIAC: Rhythm: irregularly irregular, Rate: tachycardia, S1: normalintensity, S2: normal intensity, No murmurABDOMEN: Soft, nontender, bowel sounds present.EXTREMITIES: No ulcers, UE and LE edema bilat.PULSES: Peripheral pulses present.MEDICATIONS:Current hospital medications:digoxin 125 mcg injection (LANOXIN) 125 mcg INTRAVENOUS DAILYpropofol infusion (DIPRIVAN) 5-50 mcg/kg/min INTRAVENOUS CONTINUOUSdilTIAZem 5 mg injection 5 mg INTRAVENOUS ONCEdilTIAZem 100 mg in D5W 100 mL ADD-Arvilla (CARDIZEM) 5-15 mg/hrINTRAVENOUS CONTINUOUSamoxicillin 1,000 mg cap(s) (POLYMOX, AMOXIL) 1,000 mg ORAL q 12 Hclarithromycin 500 mg tab(s) (BIAXIN) 500 mg ORAL q 12 Hipratropium-albuterol 3 mL nebulizer solution (DUONEB) 3 mL INHALATION q 4H PRNamiodarone 360 mg in D5W 200 mL (NEXTERONE) 0.5-1 mg/min INTRAVENOUSCONTINUOUSfentaNYL 50 mcg/mL 25 mcg injection (SUBLIMAZE) 25 mcg INTRAVENOUS q 2 HPRNperflutren lipid microspheres 1.1 mg/mL 1.3 mL injection (DEFINITY) 1.3 mLINTRAVENOUS PRN(NO DISPENSE)pantoprazole 40 mg injection (PROTONIX) 40 mg INTRAVENOUS BID AC(0600/1600)dextrose 5% in NaCl 0.45% with 20 mEq/L KCl iv infusion 60 mL/hrINTRAVENOUS CONTINUOUSpotassium chloride 80-120 mEq oral liquid 80-120 mEq ORAL/FEEDING TUBE PRNpotassium chloride iv piggyback 20 mEq in sterile water 100 mL 60-120 mEqINTRAVENOUS PRNmagnesium sulfate in water 2 g in sterile water 50 ml 2 g INTRAVENOUS PRNcalcium gluconate 4 g in NaCl 0.9% 250 mL 4 g INTRAVENOUS PRNChlorhexidine Gluconate 0.12 % 15 mL (PERIDEX) 15 mL ORAL q 12 HDATA:Diagnostic tests reviewed for today's visit:Most recent labsMost recent telemetryPast 72 Hour Labs:Recent Labs 06/27/1803WBC -- 14.53*RBC -- 2.85*HB -- 8.4*HCT -- 25.1*MCV -- 88.1MCH -- 29.5MCHC -- 33.5PLT -- 138*MPV -- 9.6GLUC -- 99BUN -- 21*CREAT -- 0.63*NA -- 141K -- 3.2*CHLOR -- 110*CO2 -- 26TPROT -- 4.8*ALB -- 1.7*CA -- 6.7*ALKPHOS -- 53TBILI -- 1.1*AST -- 30ALT -- 66MG 2.3 --Last Lab Drawn:LDL Chol, [place] 110 02/23/2010ssessment/Plan GI bleeding POA: Yes Assessment AND Plan: GI following. UGI bleed from Antral and prepyloricGUs s/p EGD, epi injection. S/p IR embolization of gastroduodenal andgastrioepiploic arteries on . Acute respiratory failure with hypoxia and hypercapnia (HCC) POA: No Assessment AND Plan: remains intubated and sedated. Acute blood loss anemia POA: Yes Assessment AND Plan: s/p multiple transfusions New onset Atrial fibrillation (HCC) POA: No Assessment AND Plan: telemetry shows afib HR 112-136 bpm, continueAmiodarone gtt, and IV digoxin. HR of <120bpm is acceptable for the timebeing. He has multiple reasons for tachycardia, Anemia, leukocytosis. TheCardizem gtt is only going to make him more hypotensive. EP will continueto monitor.SIGNATURE: Michelle Weeks, MSN, OPTOMETRIC ASSISTANT PATIENT NAME: Cristina MooreTE: June 26, 2017 : 5:00 PM PAGER/CONTACT #: [phone] [facility] Protein mass conc HNO ID: [id number] thor: Kalyan (Adelina) PereraService: Critical CareAuthor Type: ResidentType: Progress NotesFiled: 06/26/2017 2:08 PMNote Text:MICU - PROGRESS NOTESERVICE DATE: 06/26/2017SERVICE TIME: 9:02 AMAdmission Date: 06/21/2017AGE: 72 year oldLOS: 3 daysSubjectiveREASON FOR ICU ADMISSION: GI BleedingPatient is a 71 yo M with PMHx COPD, HTN, HD, and possible alcohol abusehistory who is being managed for acute hypovolemic/hemorrhagic shock 2/2GI bleed.Patient was intubated for airway protection and has multiple antral andpyloric ulcers with one visible vessel s/p clipping with repeat EGD.Continued oozing required IR guided embolization of gastroduodenal andgastroepiploic arteries on 06/23. Patient received massive transfusionprotocol on admission.This AM, patient is not having drainage from OG tube but he continues reynaldo in AFib. Patient remains intubated and on propofol for sedation as wellas an amiodarone gtt and scheduled Digoxin and Lopressor for AFib.Yesterday, patient had trauma line pulled for concern for possiblecatheter associated infection as the patient was previously febrile.Patient had a central line placed yesterday with no complications. Patientremains afebrile today. Patient was seen and examined and was able tofollow commands and spontaneously opening eyes. He did not pass his SBTthis AM.ObjectivePROBLEMS: ACTIVE PROBLEM LISTShock (Hcc)Copd (Chronic Obstructive Pulmonary Disease) (Hcc)HypertensionHyperlipidem iaGI BleedingAcute Respiratory Failure With Hypoxia and Hypercapnia (Hcc)Acute Blood Loss AnemiaHemorrhagic Shock (Hcc)HypophosphatemiaAtrial Fibrillation With Rapid Ventricular Response (Hcc)No past medical history on file.No past surgical history on file.Social History Marital status: Spouse name: Years of education: Number of children:Social History Main TopicsVITAL SIGNS (last 24hrs min/max):Temp Av.8 ?C (100.1 ?F) Min: 37.4 ?C (99.3 ?F) Max: 38.4 ?C (101.1?F)Pulse Av.7 Min: 109 Max: 170Arterial BP 1 Min: 80/46 Max: 138/68Cuff BP Min: 79/57 Max: 125/72Pain Score: 0/10Vital signs reviewed.BP 102/68 Pulse 117 Temp (Src) 99.1 (Axillary) Resp 25 Ht 5' 10"(1.78m) Wt 221 lb 9 oz (100.5kg) SpO2 94% BMI 31.79 kg/(m2).Temp (24hrs), Av.2 ?C (99 ?F), Min:36.9 ?C (98.4 ?F), Max:38 ?C (100.4?F)NET FLUID BALANCEIntake/Output Summary (Last 24 hours) at 06/26/17 0857Last data filed at 06/26/17 0716 Gross per 24 hourIntake 2895.2 mlOutput 1140 mlNet 1755.2 mlMEDICATIONSCurrent Facility-Administered Medications:sodium phosphate 40 mmol in D5W 250 mL 40 mmol INTRAVENOUS ONCEipratropium-albuterol 3 mL nebulizer solution (DUONEB) 3 mL INHALATION q 4H PRNamiodarone 360 mg in D5W 200 mL (NEXTERONE) 0.5-1 mg/min INTRAVENOUSCONTINUOUSfentaNYL 50 mcg/mL 25 mcg injection (SUBLIMAZE) 25 mcg INTRAVENOUS q 2 HPRNperflutren lipid microspheres 1.1 mg/mL 1.3 mL injection (DEFINITY) 1.3 mLINTRAVENOUS PRN(NO DISPENSE)pantoprazole 40 mg injection (PROTONIX) 40 mg INTRAVENOUS BID AC(06/1599)dextrose 5% in NaCl 0.45% with 20 mEq/L KCl iv infusion 60 mL/hrINTRAVENOUS CONTINUOUSpotassium chloride 80-120 mEq oral liquid 80-120 mEq ORAL/FEEDING TUBE PRNpotassium chloride iv piggyback 20 mEq in sterile water 100 mL 60-120 mEqINTRAVENOUS PRNmagnesium sulfate in water 2 g in sterile water 50 ml 2 g INTRAVENOUS PRNcalcium gluconate 4 g in NaCl 0.9% 250 mL 4 g INTRAVENOUS PRNpropofol infusion (DIPRIVAN) 5-50 mcg/kg/min (Order-Specific) INTRAVENOUSCONTINUOUSChlorhex idine Gluconate 0.12 % 15 mL (PERIDEX) 15 mL ORAL q 12 HLines, Drains, and Airways Line Central Line Triple Lumen 06/25/17 1830 Non-tunneled Left Neck less than1 day Drain GI Feed/Drain 06/21/171999 Oral Gastric Midline 16 Fr 4 days Indwelling Urinary Catheter 06/21/17 1500 Assessment Miranda 16 Fr 4days Drain/Tube 06/25/171999 Assessment Buttocks less than 1 day Airway Airway Endotracheal Tube 06/21/17 1545 4 daysPHYSICAL EXAM PERFORMED:General: Patient is intubated and sedatedCardiovascular: Irregularly irregular rate and rhythmRespiratory: Coarse breath sounds bilaterallyAbdomen: Soft and NontenderExtremities: Edema- NoNeurologic: Follows commands, intubatedRespiratory/Nursing Documentation:O2 Therapy: Ventilator (06/26/17800)Invasive Ventilator Mode: Pressure Regulated Volume Control ()Set Ventilator Respiratory Rate (BPM): 12 (06/26/17800)Total Respiratory Rate (BPM): 25 (06/26/17800)Tidal Volume Set (mL): 500 (06/26/17800)Exhaled Tidal Volume (mL): 608 (06/26/17800)Minute Volume (L): 13 (06/26/17800)Peak Inspiratory Pressure (cm H2O): 19 (06/26/17800)PEEP/CPAP (cm H2O): 5 (06/26/17800)HEMODYNAMIC DATA: ReviewedNUTRITION:Enteral Feeds: NoNPOD5 Half NS with 20 KCl at 60 ml/hrDATA: Diagnostic tests reviewed for today's visit, films/specimens werepersonally reviewed by me:Most recent labs and imaging results.LABS:Recent Labs 400WBC 14.53*RBC 2.85*HB 8.4*HCT 25.1*MCV 88.1PLT 138*GLUC 99BUN 21*CREAT 0.63*NA 141K 3.2*CHLOR 110*CO2 26TPROT 4.8*ALB 1.7*CA 6.7*ALKPHOS 53TBILI 1.1*AST 30ALT 66ABG:Recent Labs 400PH 7.499*PO2 140.6*PCO2 32.7*3/02 CXR:IMPRESSION:?No acute radiographic abnormality. ?The right costophrenic angle is cutoff of the?chest radiograph.?Stable appearance to the chest as compared to the previous exam.06/21 Surgical Pathology:FINAL DIAGNOSIS:GASTRIC BIOPSIES (BODY AND ANTRUM) - EXTENSIVE CHRONIC AND ACTIVE ACUTEGASTRITIS WITH ULCERATION AND NUMEROUS HELICOBACTER PYLORI ORGANISMS.COMMENT: ?The presence of numerous Helicobacter pylori is confirmed onthe immunostain.OPERATIVE PROCEDURE:?EGDCLINICAL INFORMATION:?GI bleed, UlcersAssessment/PlanIMPRESSI ON:Critical Care Documentation: The patient has the following organ/systemimpairment(s): Circulatory shock1. Hemorrhagic Shock 2/ UGIB- Hgb: 8.4. Remained stable.- GI, Gen Surg consulted and following- No output from OG and FMS- S/P IR embolization of gastroduodenal and gastroepiploic arteries on 06/23- Blood cultures: No growth at 3 days- H/H q12- Per GI, ok to start tube feeds- Gastric biopsies show H. Pylori infection: treatment with PPI,amoxicillin, and clarithromycin2. Acute hypoxic respiratory failure- Improving- Patient is intubated, SBT and possible extubation today- Propofol gtt for sedation. Titrate to RAAS 0 to -1- CXR ordered- Sputum cx ordered3. Persistent Atrial Fibrillation with RVR- On amiodarone gtt- EP consulted: Continue IV amiodarone gtt, daily digoxin, add low doseCardizem as tolerated by BP for rate control- Added 125mcg Digoxin IV daily- Digoxin level for AM- Echo: Pending4. Reactive Leukocytosis- Improving5. COPD- Not currently in exacerbation- Patient is intubated- Duonebs q4 PRN6. Hypophosphatemia- Sodium phosphate IV BID- Will order Mg and Ionized Ca7. ICU PPx- Protonix 40mg BID- SCDs8. Possible trauma line infection- Line was removed and central line placed- Blood cultures: Pending9. Disposition- Possible extubation today after SBT- Follow EP recommendations for AFib- H/H q12- Follow gen surg/GI recommendations- Begin treatment for H. PyloriSIGNATURE: Kalyan Reich MD PATIENT NAME: Cristina JeffreyDATE: June 26, 2017 : 9:02 AM [facility] Protein mass conc HNO ID: [id number] thor: Pilar Orozcoe: Critical CareAuthor Type: PhysicianType: Progress NotesFiled: 06/26/2017 4:57 PMNote Text:Please link this note to the resident's note completed on June 26, 2017.Impression/Recommendatio [facility]S STAFF PHYSICIAN NOTE OF PERSONAL INVOLVEMENT IN CAREI have reviewed the note obtained and documented by the resident and Ipersonally participated in the rivera components. I have discussed the caseand management of the patient's care. The following comments revise orconfirm relevant rivera components of the note.Interval findings: No further transfusions O/N. Following commands. FailedSBT d/t tachypnea, RSBI 132. On vent support. Off pressorsI have personally seen and examined the patient.Data: All data reviewed. All diagnostic tests, including labs/specimensand imaging, were personally reviewed by me.IMPRESSION/PLAN:Critical Care Documentation: The patient has the following organ/systemimpairment(s):Mr Jeffrey is a 71 year old white gentleman with PMH significant for COPD,HTN, HL, and ?alcohol abuse admitted w/ GI bleed and shock??# Acute hypoxic failure requiring vent support; was intubated for massiveGI bleed/ airway protection; failing SBTs d/t low phos L sidedatelectasis vs PNA# A.fib with RVR related to acute anemia and acute illness- uncontrolled# Reactive leukocytosis; need to exclude pneumonia# Acute severe blood loss anemia and hemorrhagic shock at presentation;s/p 12 units of PRBC?transfusion# UGIB; PUD; s/p angio-embolization of gastroduodenal and gastroepiploicarteries; + H. pylori# Mild thrombocytopenia# COPD- not in exacerbation# Hypophosphatemia ???Recs:- Cont vent support- CXR; if LLL infiltrate worse, increased secretions or fever, will startAbx for HAP vs VAP- Bedside U/S to look for effusion on LLL- ABG- Resp Cx- Discuss w/ GI- start Abx for H.pylori- recheck phos daily; replete- Check ionized Ca and Mg- Replete lytes- Hb q12; transfuse as needed for Hb <7- appreciate EP inputs; dig loaded; will start Dig 0.125mg daily- Dig level in AM- Add cardizem if needed- SAT/SBT in the am- c/w PPI BID- BDs prn- no lovenox- SCDs- supportive carePrognosis: GuardedCode Status: FullPatient/Family Updated: Patient and/or family were updatedregarding?the?goals of care,?medical plan for the day, consultantrecommendations, medical disposition and current medicalcondition/prognosis as clinically indicated. All questions and concerns,if any, were answered and addressed at this juncture.This patient has a high probability of sudden, clinically significantdeterioration, which requires the highest level of physician preparednessto intervene urgently. I managed/supervised life or organ supportinginterventions that required frequent physician assessment. I devoted myfull attention to the direct care of this patient for the amount of timeindicated below. Time I spent with family or surrogate(s) is includedonly if the patient was incapable of providing the necessary informationor participating in medical decision making. Time devoted to teaching andto any procedures I billed separately is not included.Discussed with Respiratory therapist, Registered Nurse, Pharmacisit andResident.Time spent providing critical care services: 40 minutes, excludingprocedures.SIGNATURE : MAICO Rome INSTITUTEPAGER:[id number] of SERVICE: June 26, 2017TIME of SERVICE: 8:45 AM [facility] Protein mass conc HNO ID: [id number] thor: Pierce Navarreteervice: General SurgeryAuthor Type: ResidentType: Progress NotesFiled: 06/26/2017 7:24 AMNote Text: At testation signed by Ellen Kelley at 06/26/2017 4:36 PM S URGERY STAFF:I have personally seen and evaluated this patient and participated in the keycomponents of this encounter. I discussed the management of this case with theresidents and independently confirmed the findings and plan of care asdocumented either attached or in their separate note from today. Anycorrections or additional notes are made as needed.Hgb stable. Will need reembolization if rebleeds. No acute surgicalintervention at this point. Please call with future issues or questions. =======Ellen Kelley MD [facility] General Surgery Progress NoteSERVICE DATE: 06/26/2017SUBJECTIVE:Dark BM overnight.OBJECTIVE:Vitals:Te mp (24hrs), Av.2 ?C (99 ?F), Min:36.9 ?C (98.4 ?F), Max:38 ?C (100.4?F)BP 102/68 Pulse 119 Temp 37.3 ?C (99.1 ?F) Resp 26 Ht 177.8 cm (5'10") Wt 100.5 kg (221 lb 9 oz) SpO2 100% BMI 31.79 kg/m2O2 Therapy: VentilatorIANDO:Date 06/25/17699 - 06/26/17 0659 06/26/17699 - 06/27/17 0659Shift 0729-9546 2111-8631 0917-3410 24 Hour Total 6473-7962 9905-29323248-6062 24 Hour TotalINTAKE IV 744.9 1166.4 1024.8 2936.1 100 100 D5 0.45%NS w/20KCL 511 461.3 456.5 1428.8 IVPB 500 280 780 Potassium IVPB 100 100 100 100 Amiodarone 139.9 121.5 124.4 385.8 Propofol IV 94 83.6 63.9 241.5 Shift Total 744.9 1166.4 1024.8 2936.1 100 100OUTPUT Urine 320 295 300 915 Tube Output ( Indwelling Urinary Catheter 06/21/17 1500 AssessmentFoley 16 Fr) 320 295 300 915 Tubes 275 0 275 Drain/Tube Output (Drain/Tube 06/25/171999 Assessment Buttocks) 2000 200 Output (GI Feed/Drain 06/21/171999 Oral Gastric Midline 16 Fr) 75 075 # of BMs Number of BMs 1 x 1 x Shift Total 320 570 300 1190Weight (kg) 100.4 100.4 100.5 100.5 100.5 100.5 100.5 100.5MEDICATIONSCurrent Facility-Administered Medications:sodium phosphate 40 mmol in D5W 250 mL 40 mmol INTRAVENOUS ONCEipratropium-albuterol 3 mL nebulizer solution (DUONEB) 3 mL INHALATION q 4H PRNamiodarone 360 mg in D5W 200 mL (NEXTERONE) 0.5-1 mg/min INTRAVENOUSCONTINUOUSfentaNYL 50 mcg/mL 25 mcg injection (SUBLIMAZE) 25 mcg INTRAVENOUS q 2 HPRNperflutren lipid microspheres 1.1 mg/mL 1.3 mL injection (DEFINITY) 1.3 mLINTRAVENOUS PRN(NO DISPENSE)pantoprazole 40 mg injection (PROTONIX) 40 mg INTRAVENOUS BID AC(0600/1599)dextrose 5% in NaCl 0.45% with 20 mEq/L KCl iv infusion 60 mL/hrINTRAVENOUS CONTINUOUSpotassium chloride 80-120 mEq oral liquid 80-120 mEq ORAL/FEEDING TUBE PRNpotassium chloride iv piggyback 20 mEq in sterile water 100 mL 60-120 mEqINTRAVENOUS PRNmagnesium sulfate in water 2 g in sterile water 50 ml 2 g INTRAVENOUS PRNcalcium gluconate 4 g in NaCl 0.9% 250 mL 4 g INTRAVENOUS PRNpropofol infusion (DIPRIVAN) 5-50 mcg/kg/min (Order-Specific) INTRAVENOUSCONTINUOUSChlorhex idine Gluconate 0.12 % 15 mL (PERIDEX) 15 mL ORAL q 12 HLabs:Recent Labs 06/25/1820NA 141 -- -- -- 142 -- 142K 3.2* -- -- -- 3.9 -- 3.8CHLOR 110* -- -- -- 112* -- 110*CO2 26 -- -- -- 28 -- 27BUN 21* -- -- -- 18 -- 21*CREAT 0.63* -- -- -- 0.68 -- 0.56*GLUC 99 -- -- -- 129* -- 166*ANION 8 -- -- -- 6* -- 9CA 6.7* -- -- -- 6.9* -- 7.0*P 2.0* -- 1.1* -- -- -- 0.9*ALB 1.7* -- -- -- -- -- --AST 30 -- -- -- -- -- --ALT 66 -- -- -- -- -- --ALKPHOS 53 -- -- -- -- -- --TBILI 1.1* -- -- -- -- -- --WBC 14.53* -- -- -- 18.57* -- 15.91*HB 8.4* 8.4* -- < > 9.5* < > 7.1*HCT 25.1* -- -- -- 27.8* -- 20.6*PLT 138* -- -- -- 140* -- 135*PH -- -- -- -- -- -- 7.499*PCO2 -- -- -- -- -- -- 32.7*PO2 -- -- -- -- -- -- 140.6*BE -- -- -- -- -- -- 1.6< > = values in this interval not displayed.Exam:GENERAL: No distress, intubated/sedatedNEURO: intubated/sedatedLUNGS: On ventCARDIAC: Tachycardic, on cardizem gttABDOMEN: Soft, non-distended. NGT AND FMS w/ dark outputEXTREMITIES: MAEASSESSMENT AND PLAN:71 year old male w/ UGI bleed s/p EGD w endoclips/epi 06/21, s/p IRembolization 06/23- monitor Hgb, transfuse per primary- Care per MICU- Protonix BID- F/u H Pylori and biopsies from EGD- GI recs--additional embolization if rebleedsPierce Montiel MDGeneral Surgery Chief ResidentMar 2017 7:22 [facility] #: Pager: [phone] [facility] Protein mass conc HNO ID: [id number] thor: Hollis Manninge: Critical CareAuthor Type: PhysicianType: Progress NotesFiled: 06/25/2017 10:53 PMNote Text:Notes and meds reviewed. Full ROS with RN and RT. Failed SBT again thisam. Heart rate better now. Per RN, follows commands. Still gettingphos.On exam:98/71, 110s, 37.4, 25, 97% on 30% SxN4AFMG 500/ 12/ 30%/ 5On sedationNAD; per RN JERONIMO and follows commands on lower sedationNG tube - no blood nowIrregularly irregularCTA BSoft, mildly distended, BS presentFoley in placeLeft IJ TLCNo pedal edemaIO: +780Data:Hb 8.4 (3 units of PRBC last night), WCC 18, Plt 140Na 142, K 3.9, Cl 112, HCO3 28, Glu 129, BUN 18, Cr 0.7, Phos 1.1CXR: new left IJ; left basilar atelectasis or consolidation with possiblepleural effusionImpression:Mr Jeffrey is a 71 year old white gentleman with PMH significant for COPD,HTN, HL, and ?alcohol abuse admitted to the unit for GI bleed and shock. ???1. Acute hypoxic failure, improving; was intubated for massive GI bleed/airway protection; failed SBT times two secondary to low phos and possiblypneumonia/ atelectasis2. A.fib with RVR related to acute anemia and acute illness; slightlybetter now3. Reactive leukocytosis; need to exclude pneumonia4. Acute severe blood loss anemia and hemorrhagic shock at presentation;s/p 12 units of PRBC transfusion5. UGIB; PUD; s/p angio-embolization of gastroduodenal and gastroepiploicarteries6. Mild thrombocytopenia7. COPD8. Hypophosphatemia??Recs:- replete phos- recheck phos- check PCT and sputum Cx- a/w ECHO- monitor H.H and transfuse as needed- appreciate EP inputs- SBT and WP in the am- c/w PPI BID- BDs- no lovenox- SCDs- supportive care??This patient has a high probability of sudden, clinically significantdeterioration, which requires the highest level of physician preparednessto intervene urgently. ?I managed/supervised life or organ supportinginterventions that required frequent physician assessment. ?I devoted myfull attention to the direct care of this patient for the amount of timeindicated below. ?Time I spent with family or surrogate(s) is includedonly if the patient was incapable of providing the necessary informationor participating in medical decision making. ?Time devoted to teaching andto any procedures I billed separately is not included.??PATIENT CHECKLISTAre restraints necessary: Yes. Order written? YesDeep vein thrombosis prophylaxis administered? No. Contraindicated.Stress ulcer prophylaxis? YesFoley catheter necessary? YesIs central line essential? Yes??Patient/Family Updated:?no family at the bedside.??PROGNOSIS: Fair??Code status: full??Discussed with Respiratory therapist and?Registered Nurse.??Critical Care Documentation:?The patient has the following organ/systemimpairment(s):Acu te blood loss, Complex life-threatening ?medical problem(s) andRespiratory failure (Acute, with Hypercapnea, with Hypoxemia)??Time spent providing critical care services: ?41?minutes.??SIGNATURE: MAICO Garcia INSTITUTEPAGER:1030 [facility] Phosphorus Bloodon 8 Phosphate 2.0 mg/dL Low 2.5-4.[address] [facility] Comment on above: Performed By: #### T &S ####[place] [address] Procalcitoninon 06-26-2017 Procalcitonin 0.11 ng/mL Normal [facility] Comment on above: Result Comment: Leve ls <0.50 ng/mL represent a low risk of severe sepsis and/orseptic shock, while levels >2.00 ng/mL represent an elevatedrisk of severe sepsis and/or septic shock. Levels <0.50 ng/mLdo not exclude infection, as infections or systemic infectionsin early stages (<6hrs) can be associated with lowconcentrations. Levels between 0.50-2.00 ng/mL should beinterpreted in the clinical context of the patient, as a varietyof conditions such as pederson, trauma, surgery and severecardiogenic shock can cause procalcitonin elevations. Performed By: #### F FPXS ####[place] [address] TSH, 3rd generationon 2017 TSH, 3rd generation 1.060 uIU/mL Normal 0.358-3. [address] [facility] Comment on above: Performed By: #### T &S ####[place] [address] ALLIED HEALTHon 06-25-2017 ALLIED HEALTH HNO ID: [id number] thor: Varun Corona) Tatum Goodervice: Spiritual CareAuthospenser Type: ChaplainType: Allied HealthFiled: 06/25/2017 6:17 PMNote Text: SPIRITUALCARESpiritual Care Visit- Brief NoteName: Cristina JeffreyMRN: [id number]: June 25, 2017Notes: Provided SC through in-room prayer for sleeping pt. Chaplain Signature: Consuelo Rothman contact the Spiritual Care Department:Please call [phone] or Page the On-Call Hydraulic Rockbreaker Operator at pager [phone] you for the opportunity to be of service.This is an electronically created document.IF PRINTED, PLEASE DO NOT REMOVE FROM THE CHART OR MODIFY PRINTED COPY. [facility] Basic Panelon 06-25-2017 Creatinine 0.68 mg/dL Normal 0.67-1.[address] [facility] Comment on above: Performed By: #### C BCD1 ####[place] [address] Glucose mass conc 129 mg/dL High 70-[address] [facility] Comment on above: Performed By: #### C BCD1 ####[place] [address] Urea nitrogen 18 mg/dL Normal 7-[address] [facility] Comment on above: Performed By: #### C BCD1 ####[facility] [place], [place] [address] Anion gap 6 mmol/L Low 8-[address] [facility] Comment on above: Performed By: #### C BCD1 ####[facility] [place], [place] [address] Calcium 6.9 mg/dL Low 8.5-10.[address] [facility] Comment on above: Performed By: #### C BCD1 ####[facility] [place], [place] [address] CO2 28 mmol/L Normal 21-[address] [facility] Comment on above: Performed By: #### C BCD1 ####[facility] [place] [address] Chloride 112 mmol/L High 98-[address] [facility] Comment on above: Performed By: #### C BCD1 ####[facility] [place] [address] Potassium molar conc 3.9 mmol/L Normal 3.5-5.1 [facility] Comment on above: Performed By: #### C BCD1 ####[facility] [place] [address] Sodium 142 mmol/L Normal 136-[address] [facility] Comment on above: Performed By: #### C BCD1 ####[place] [address] CHEST 1 VIEWon 06-25-2017 CHEST 1 VIEW Performed at [facility] APPROVED BY: Guillermo Ulloa MD PORTABLE AP CHEST, 1830 HOURS: CLINICAL INDICATION: Verify central venous catheter placement. COMPARISON: Chest radiographs 2017 and 06/15/2017. The patient is rotated to the left. Multiple wires and tubes overlie the chest. There is an endotracheal tube in profile with the upper tracheal airway. There is an enteric tube extending below the diaphragm. There is a new left internal jugular central venous catheter terminating in profile with the cavoatrial junction. There is a right internal jugular central venous catheter terminating in profile with the distal SVC. There is left basilar opacity with blunting of the lateral costophrenic angle. There is no pneumothorax. The right lung appears clear. Evaluation of the cardiac and mediastinal silhouette is limited by patient rotation. The right heart border overlies the thoracic spine. There is a dextroscoliosis of the thoracic spine. IMPRESSION: New left internal jugular central venous catheter terminating in profile with the cavoatrial junction. No evidence of pneumothorax. Left basilar opacity, possible atelectasis or consolidation with possible pleural effusion. A wet reading is made available at time of dictation as requested. Normal [facility] CONSULTon 06-25-2017 CONSULT HNO ID: [id number] thor: Neema Lagunaservice: ElectrophysiologyAuthor Type: PhysicianType: ConsultsFiled: 06/25/2017 11:38 AMNote Text:[facility] CONSULT NOTESERVICE DATE: 06/25/2017SERVICE TIME: 11:36 AMPHYSICIAN CONSULT (AK,AV,EU,FV,HL,GERRY,MM,SP)Cons ult performed by: NEEMA MAHERHConsult ordered by: AQUILES OSBORNE ()Reason for consult: Atrial fibrillation.PRIMARY CARE PHYSICIAN: CANDICE Perez ChiubjectiveI Comments: 72-year-old male with history of essential hypertension,COPD, admitted with upper GI bleeding, underwent endoscopic treatment andsubsequent arterial embolization, required multiple transfusions,developed atrial fibrillation with RVR several days ago, treated withintravenous diltiazem, later switched to intravenous amiodarone, receiveddigoxin and beta alex as well, not anticoagulated due to the recent GIbleed. The patient is intubated and unable to provide any history.The history is provided by medical records.FUNCTIONAL STATUS: IndependentNo past medical history on file.No past surgical history on file.No family history on file.Social HistorySubstance Use Topics- Smoking status: Not on file- Smokeless tobacco: Not on file- Alcohol use Not on filePrescriptions Prior to Admission:carvedilol (COREG) 12.5 mg tablet Take 12.5 mg by mouth twice daily withmeals. Disp: Rfl:Vit A,C,J-Unew-Ghvysz (PRESERVISION AREDS) [phone],[id number] [id number]-[id number] Take 1 capsule by mouth twice daily. Disp: Rfl:albuterol (PROVENTIL) 2.5 mg /3 mL (0.083 %) nebulizer solution Use 2.5 mgvia nebulizer every 4 hours as needed for Wheezing/Shortness of Breath.Disp: Rfl:lisinopril (ZESTRIL, PRINIVIL) 20 mg tablet Take 20 mg by mouth oncedaily. Disp: Rfl:pravastatin (PRAVACHOL) 40 mg tablet Take 40 mg by mouth once daily. Disp: Rfl:aspirin 81 mg chewable tablet Take 81 mg by mouth once daily. Disp: Rfl:budesonide-formoterol (SYMBICORT) 160-4.5 mcg/actuation inhaler Inhale 1Puff as instructed twice daily. Disp: Rfl:ranitidine (ZANTAC) 150 mg tablet Take 150 mg by mouth twice daily. Disp:Rfl:guaiFENesin (MUCINEX) 600 mg 12 hr tablet Take 1,200 mg by mouth twicedaily. Disp: Rfl:predniSONE (DELTASONE) 10 mg tablet Take 10 mg by mouth as directed. 12day tapering dose filled 06/12/17 Disp: Rfl:furosemide (LASIX) 40 mg tablet Take 40 mg by mouth twice daily. Disp:Rfl:Current hospital medications:ipratropium-albut thai 3 mL nebulizer solution (DUONEB) 3 mL INHALATION q 4H PRNsodium phosphate 30 mmol in D5W 250 mL 30 mmol INTRAVENOUS BIDamiodarone 360 mg in D5W 200 mL (NEXTERONE) 0.5-1 mg/min INTRAVENOUSCONTINUOUSfentaNYL 50 mcg/mL 25 mcg injection (SUBLIMAZE) 25 mcg INTRAVENOUS q 2 HPRNperflutren lipid microspheres 1.1 mg/mL 1.3 mL injection (DEFINITY) 1.3 mLINTRAVENOUS PRN(NO DISPENSE)pantoprazole 40 mg injection (PROTONIX) 40 mg INTRAVENOUS BID AC(0600/1600)dextrose 5% in NaCl 0.45% with 20 mEq/L KCl iv infusion 60 mL/hrINTRAVENOUS CONTINUOUSpotassium chloride 80-120 mEq oral liquid 80-120 mEq ORAL/FEEDING TUBE PRNpotassium chloride iv piggyback 20 mEq in sterile water 100 mL 60-120 mEqINTRAVENOUS PRNmagnesium sulfate in water 2 g in sterile water 50 ml 2 g INTRAVENOUS PRNcalcium gluconate 4 g in NaCl 0.9% 250 mL 4 g INTRAVENOUS PRNpropofol infusion (DIPRIVAN) 5-50 mcg/kg/min (Order-Specific) INTRAVENOUSCONTINUOUSChlorhex idine Gluconate 0.12 % 15 mL (PERIDEX) 15 mL ORAL q 12 HAllergies As of Date: 06/21/2017(No Known Allergies)Fully Assessed 06/21/2017COMPLETE REVIEW OF SYSTEMS:Review of SystemsUnable to perform ROS: IntubatedObjectivePhysical ExamConstitutional: He is oriented to person, place, and time. He appearswell-developed and well-nourished. No distress.Intubated, awake, alert.HENT:Head: Normocephalic and atraumatic.Eyes: Conjunctivae are normal. Pupils are equal, round, and reactive tolight.Cardiovascular:Tachyc ardic, irregular, S1-S2.Pulmonary/Chest: No stridor. No respiratory distress. He has no wheezes.He has no rales.Abdominal: There is no tenderness.Musculoskeletal: He exhibits no edema.Neurological: He is alert and oriented to person, place, and time.Skin: Skin is warm and dry. No rash noted.Psychiatric: He has a normal mood and affect.Patient Vitals for the past 24 hrs: BP Temp Temp src Pulse Resp SpO2 Khjpwo74/04/18 1100 135/75 36.9 ?C (98.4 ?F) - (!) 134 (!) 37 99 % -06/25/17 1055 - - - (!) 131 (!) 36 99 % -06/25/17 1000 119/62 36.9 ?C (98.4 ?F) - (!) 122 15 99 % -06/25/17 0934 - 37 ?C (98.6 ?F) - 119 14 99 % -06/25/17 0900 101/72 37.1 ?C (98.8 ?F) - (!) 123 24 99 % -06/25/17 0817 - - - 118 - 99 % -06/25/17 0700 95/61 37.4 ?C (99.3 ?F) - 109 23 99 % -06/25/17 0600 115/69 37.7 ?C (99.9 ?F) - (!) 135 25 99 % 100.4 kg (221 lb5.5 oz)06/25/17 0500 100/53 37.7 ?C (99.9 ?F) - (!) 135 17 97 % -06/25/17 0400 125/72 37.7 ?C (99.9 ?F) - (!) 138 25 95 % -06/25/17 0335 - - - (!) 144 24 95 % -06/25/17 0300 120/69 37.8 ?C (100 ?F) - (!) 132 24 95 % -06/25/17 0245 - 37.7 ?C (99.9 ?F) - (!) 142 29 - -06/25/17 0230 - 37.8 ?C (100 ?F) - (!) 144 26 - -06/25/17 0215 - 37.8 ?C (100 ?F) - (!) 140 24 - -06/25/17 0200 113/66 37.7 ?C (99.9 ?F) - (!) 150 26 97 % -06/25/17 0145 - 37.7 ?C (99.9 ?F) - (!) 147 27 - -06/25/17 0130 - 37.6 ?C (99.7 ?F) - (!) 150 28 - -06/25/17 0125 - 37.7 ?C (99.9 ?F) - (!) 147 27 - -06/25/17 0115 - 37.8 ?C (100 ?F) - (!) 137 27 - -06/25/17 0110 - 37.8 ?C (100 ?F) - (!) 145 30 - -06/25/17 0100 96/61 37.9 ?C (100.2 ?F) - (!) 144 28 96 % -06/25/17 0011 - - - (!) 150 25 99 % -06/25/17 0000 90/60 38.2 ?C (100.8 ?F) - (!) 151 29 99 % -06/24/17 2300 101/85 38.2 ?C (100.8 ?F) - (!) 154 27 99 % -06/24/17 2200 98/68 38 ?C (100.4 ?F) - (!) 150 (!) 31 99 % -06/24/17 2100 103/62 38.4 ?C (101.1 ?F) - (!) 148 26 99 % -06/24/172025 - - - (!) 170 (!) 32 99 % -06/24/172014 108/71 38 ?C (100.4 ?F) Axillary (!) 160 28 - -06/24/171999 112/77 - - (!) 155 22 - -06/24/17 1930 111/60 - - (!) 155 25 100 % -06/24/17 1900 110/79 - - (!) 159 25 99 % -06/24/17 1800 101/67 - - (!) 149 29 99 % -06/24/17 1722 - 38.1 ?C (100.6 ?F) - - - - -06/24/17 1642 (!) 79/57 37.9 ?C (100.2 ?F) - (!) 147 28 - -06/24/17 1624 - 37.8 ?C (100 ?F) - - - - -06/24/17 1555 - - - (!) 149 - 100 % -06/24/17 1534 84/67 37.8 ?C (100 ?F) - (!) 149 28 95 % -06/24/17 1500 84/57 - - (!) 152 27 100 % -06/24/17 1400 99/61 - - (!) 149 30 99 % -06/24/17 1300 99/74 - - (!) 143 27 98 % -06/24/17 1227 - - - (!) 140 - 99 % -06/24/17 1200 100/65 - - (!) 126 25 99 % -06/24/17 1153 - 37.7 ?C (99.9 ?F) - - - - -Body mass index is 31.76 kg/(m2).DATA:Diagnostic tests reviewed for today's visit:Most recent labs and imaging results.ECG demonstrated atrial fibrillation versus atypical atrial flutter withRVR.Assessment and recommendations:72-year-old male with recent upper GI bleeding, essential hypertension,atrial fibrillation with RVR, acute blood loss anemia. Continueintravenous amiodarone (with understanding of a relatively small risk ofstroke in case of conversion to sinus rhythm, since the patient cannot beanticoagulated at this time), daily digoxin, located add low dose Cardizemand titrate as tolerated by blood pressure if needed for rate control.SIGNATURE: Neema Maher MD PATIENT NAME: Cristina JeffreyDATE: June 25, 2017 : 11:33 AM PAGER: [phone] Normal [facility] CONSULT PROGon 06-25-2017 Protein mass conc HNO ID: [id number] thor: Herman Melendez: GastroenterologyAuthor Type: PhysicianType: Consult Progress NoteFiled: 06/25/2017 3:34 PMNote Text:SUBJECTIVE:Cristina Jeffrey was seen in follow up regarding UGIB secondary to multipleGUsRecd 3 units of PRBC overnightStill dark fluid in NGT but no overt luminal blood lossFailed spontan breathing trial - still intubatedCurrent Facility-Administered Medications:ipratropium-albut thai 3 mL nebulizer solution (DUONEB) 3 mL INHALATION q 4H PRNsodium phosphate 30 mmol in D5W 250 mL 30 mmol INTRAVENOUS BIDamiodarone 360 mg in D5W 200 mL (NEXTERONE) 0.5-1 mg/min INTRAVENOUSCONTINUOUSfentaNYL 50 mcg/mL 25 mcg injection (SUBLIMAZE) 25 mcg INTRAVENOUS q 2 HPRNperflutren lipid microspheres 1.1 mg/mL 1.3 mL injection (DEFINITY) 1.3 mLINTRAVENOUS PRN(NO DISPENSE)pantoprazole 40 mg injection (PROTONIX) 40 mg INTRAVENOUS BID AC(0600/1600)dextrose 5% in NaCl 0.45% with 20 mEq/L KCl iv infusion 60 mL/hrINTRAVENOUS CONTINUOUSpotassium chloride 80-120 mEq oral liquid 80-120 mEq ORAL/FEEDING TUBE PRNpotassium chloride iv piggyback 20 mEq in sterile water 100 mL 60-120 mEqINTRAVENOUS PRNmagnesium sulfate in water 2 g in sterile water 50 ml 2 g INTRAVENOUS PRNcalcium gluconate 4 g in NaCl 0.9% 250 mL 4 g INTRAVENOUS PRNpropofol infusion (DIPRIVAN) 5-50 mcg/kg/min (Order-Specific) INTRAVENOUSCONTINUOUSChlorhex idine Gluconate 0.12 % 15 mL (PERIDEX) 15 mL ORAL q 12 HALLERGIESNo Known AllergiesInterim Labs and/or Imaging:Most recent labsMost recent imagingHGB (g/dL)Date Value06/25/2017 9.0 Hematocrit (%)Date Value06/25/2017 27.8 WBC (thou/cmm)Date Value06/25/2017 18.57 Lab ResultsComponent Value DateTBILI 1.1 (H) 06/21/2017CREAT 0.68 06/25/2017INR 1.08 06/21/2017ALB 2.3 (L) 06/21/2017ALKPHOS 41 (L) 06/21/2017AST 34 06/21/2017ALT 44 06/21/2017TPROT 4.6 (L) 06/21/2017Endoscopic Procedures:See prior consultREVIEW OF SYSTEMS:GASTROINTESTINAL:SEE ABOVECARDIOVASCULAR:NONERESPI RATORY:NONEPHYSICAL EXAMINATION:BP 123/66 Pulse 120 Temp (Src) 98.4 (Axillary) Resp 24 Ht 5' 10"(1.78m) Wt 221 lb 5.5 oz (100.4kg) SpO2 99% BMI 31.76 kg/(m2).GENERAL APPEARANCE: intubatedSKIN: Skin color, texture, turgor normal, no suspicious rashes or lesions.EYES: Anicteric sclera. Pupils are equally round and reactive to light.Extraocular movements are intact.LUNGS: Lungs clear to auscultation. No wheezing, rhonchi, rales.HEART: RRR without murmur, gallop, or rubs. No ectopy.ABDOMEN: Abdomen soft, non-tender, non distended. Bowel sounds normal.No masses, ascites or hepatosplenomegaly.PLAN:72M with UGIB from antral and pre-pyloric Kaveh. Has had 2 EGDs for clippingand Epi injection.Eventual IR embolization of branches of GDA and gastroepiploicNo further overt luminal blood loss but does have dark fluid in NGT.Currently intubated, HD stable but Hb trending down slowly. Received 3units PRBC yesterday. Hb stable todayASA and Prednisone on hold.Suggest continue Protonix 40mg IV bidAvoid NSAIDsMonitor HbF/U pathology and tx Hp if positiveIf he decompensates again, may need IR to assess for repeat embolizationgiven failed EGD attemptsThank you for involving me in the care of this patient.Herman Lunsford MD MPH FRCPC [facility] Cult Bloodon 06-25-2017 Cult Blood Test performed at [facility] No growth Normal [facility] Comment on above: Performed By: #### R BCPS ####[place] [address] Performed By: #### T &S ####[place] [address] Cult Deviceon 06-25-2017 Cult Device Test performed at [facility] No Growth Normal [facility] Comment on above: Performed By: #### T &S ####[place] [address] Cult and Smr Respiratoryon 0 06-25-2017 Cult and Smr Respiratory Test performed at [facility] Normal oropharyngeal robin present. Rare WBC Rare yeast Normal [facility] Comment on above: Performed By: #### T &S ####[place] [address] Hemogramon 06-25-2017 Erythrocyte distribution width Auto Ratio (RBC) 16.9 % High 11.6-14.[address] [facility] Comment on above: Performed By: #### F FPXS ####[place] [address] Erythrocytes (RBC) 3.20 mil/cmm Low 4.63-6.08 [facility] Comment on above: Performed By: #### F FPXS ####[place] [address] Hematocrit (HCT) 27.8 % Low 40.1-51.[address] [facility] Comment on above: Performed By: #### F FPXS ####[address], [place] [address] Hemoglobin mass conc (Bld) 9.5 g/dL Low 13.7-17.[address] [facility] Comment on above: Performed By: #### F FPXS ####[place] [address] MCH 29.7 pg Normal 25.7-32.[address] [facility] Comment on above: Performed By: #### F FPXS ####[place] [address] MCHC mass conc (RBC) 34.2 % Normal 32.3-36.5 [facility] Comment on above: Performed By: #### F FPXS ####[place] [address] MCV 86.9 fL Normal 83.2-95.[address] [facility] Comment on above: Performed By: #### F FPXS ####[place] [address] Nucleated erythrocytes 0.07 thou/cmm High 0.00-0.[address] [facility] Comment on above: Performed By: #### F FPXS ####[place] [address] Nucleated RBC % 0.4 % High 0.0-0.[address] [facility] Comment on above: Performed By: #### F FPXS ####[place] [address] Platelet mean volume (PMV) 9.8 fL Normal 8.7-12.[address] [facility] Comment on above: Performed By: #### F FPXS ####[place] [address] Platelets 140 thou/cmm Low 141-[address] [facility] Comment on above: Performed By: #### F FPXS ####[place] [address] RDW SD 49.9 fl High 36.1-45.[address] [facility] Comment on above: Performed By: #### F FPXS ####[address] [place] [address] WBC (Leukocytes) 18.57 thou/cmm High 4.23-9.07 [facility] Comment on above: Performed By: #### F FPXS ####[place] [address] Hgbon 06-25-2017 Hemoglobin mass conc (Bld) 9.0 g/dL Low 13.7-17.[address] [facility] Comment on above: Performed By: #### F FPXS ####[place] [address] Hemoglobin mass conc (Bld) 8.4 g/dL Low 13.7-17.[address] [facility] Comment on above: Performed By: #### C BCD1 ####[place] [address] MDRD GFRon 06-25-2017 eGFR (non-black) mL/min/{1.73_m2} Normal >60mL/m in/ 1.73m2 [facility] Comment on above: Result Comment: If t he patient is , multiply the result by 1.210. 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 internship notified at 1700 [facility] Protein mass conc HNO ID: [id number] Author: Yann BarnettRn) Oralia, RN Service: Nursing Author Type: Registered Nurse Type: Nursing Progress Note Filed: 06/25/2017 3:40 PM Note Text: # [address] floyd in r UA with ultrasound good blood return dressing applied [facility] Protein mass conc HNO ID: [id number] Author: Yann Spear) Oralia, RN Service: Nursing Author Type: Registered Nurse Type: Nursing Progress Note Filed: 06/25/2017 12:05 PM Note Text: Attempt IV start x 3 by 2 RNS without success special opps paged [facility] Protein mass conc HNO ID: [id number] thor: Yann BarnettRn) KELLY Bartonervice: NursingAuthor Type: Registered NurseType: Nursing Progress NoteFiled: 06/25/2017 7:14 AMNote Text: Nursing Progress: Topic: RESTRAINT NON-VIOLENTPATIENT NAME: Cristina JeffreyMRN: [id number] LOCATION: [place] [address] [address]*The patient demonstrates Confusion, Attempting to Remove Medical DevicesVital to Medical Stability as evidenced by the following behaviors pullsat tubes which pose an imminent danger to self or others.The following interventions were attempted but were not effective inprotecting the patient's safety: Alarms, Family/Significant OtherInvolvement, Bed in Low/Locked Position, Call Light Within ReachNext, a comprehensive assessment was performed and warranted placing thepatient in Soft Bilateral Wrists, the least restrictive restraint neededto protect the patient's safety.Ongoing safety assessments and evaluation for earliest removal ofrestraints will be performed.DATE: June 25, 2017TIME: 7:14 Zay Barton RN [facility] PROCEDUREon 06-25-2017 Protein mass conc HNO ID: [id number] thor: Aquiels Harper) Dr[facility] HospitallisetteService: Critical CareAuthor Type: PhysicianType: ProceduresFiled: 06/26/2017 8:27 AMNote Text:Vascular Catheter Insertion Procedure NotePATIENT NAME: Cristina Farfan OF PROCEDURE: June 25, 2017TIME OF PROCEDURE: 6:21 PMInformed Consent obtained under separate note.INDICATION FOR LINE PLACEMENT: Venous accessCONDITION OF LINE PLACEMENT: SterilePRIMARY PROCEDURALIST: YANN PhilipT(S): Zbigniew LAURENT SUPERVISING PROCEDURE: YESPROCEDURE NARRATIVESAFE PRACTICESite Marked: YESSkin Preparation Used: Chlorhexidine GluconateBarriers Used by Proceduralist and All Assisting Personnel: YesSign in Communication: CompletedTime Out: Team Confirmed the Correct Patient, Correct Procedure, CorrectSite and Site Marking, Correct Position (if applicable): CompletedSign Out Discussion: CompletedCATHETER PLACEMENTLine Type: Central VenousInsertion Site: Left JugularAntimicrobial Catheter Used: YesPower Injectable: YesLumen Size: #7 FrenchNumber of lumens: TripleExternal Length: 20 cmNumber of attempts at insertion: 2Ultrasound used for insertion: YesVerified placement: Blood return all ports, Ultrasound and Chest X-rayordered and pendingLine Secured with: SutureSterile dressing applied and dated: YesSterile caps on all ports prior to leaving procedure area: YesPROCEDURE: CENTRAL VENOUS LINE INSERTIONIndication: Venous accessInsertion Type: New stickSite: Left internal jugular veinUltrasound Used for Insertion: Yes, image not capturedAll personnel involved with the procedure used caps, masks with eyeshields, sterile gowns and sterile gloves. The area was prepped withchlorhexidine gluconate and draped with a full-body sterile drapefollowing the usual aseptic technique . Anesthesia was obtained with localinfiltration of 1% lidocaine. The vessel was cannulated under directultrasound visualization with a 6.35 cm, 18 gauge single lumen catheteron the second attempt.A J-tipped spring wire was passed into the vein through the indwellingcatheter and left in situ while the catheter was removed. A small skinincision was made and the tract was dilated with a semi-rigid tissuedilator. A 20 cm triple-lumen, 7 Fr, non-tunneled, pressure injectable,antimicrobial catheter was advanced over the guidewire and left in situwhile the guidewire was removed. All ports were capped with sterile sitecaps, venous blood was aspirated from all ports and all ports were flushedwith sterile saline solution. An antimicrobial-impregnated protective diskwas placed around the catheter, the catheter was secured in place at 20cm with sterile sutures and a sterile, transparent, occlusive dressing wasplaced over the site. A portable CXR was ordered. All catheters, needlesand wires were accounted for and intact. The patient tolerated theprocedure well and without apparent complicationsSPECIMENS: NoneCOMPLICATIONS: 20cc blood lossAttending addendumI was present at bedside and available for assistance for the entireduration of the procedureAquiles Osborne MD [facility] PROGRESSon 06-25-2017 Protein mass conc HNO ID: [id number] thor: Kalyan Sahu PereraService: Critical CareAuthor Type: ResidentType: Progress NotesFiled: 06/25/2017 2:43 PMNote Text: At testation signed by Aquiles Osborne at 06/25/2017 5:14 [facility] STAFF PHYSICIAN NOTE OF PERSONAL INVOLVEMENT IN CAREI have reviewed the progress note obtained and documented by the resident and Ipersonally participated in the rivera components. I have discussed the case andmanagement of the patient's care. Please refer to my note from 06/25/2017 for myassessment and plan.SIGNATURE: Aquiles Osborne, [facility] --[facility] - PROGRESS NOTESERVICE DATE: 06/25/2017SERVICE TIME: 9:02 AMAdmission Date: 06/21/2017AGE: 72 year oldLOS: 2 daysSubjectiveREASON FOR ICU ADMISSION: GI BleedingPatient is a 71 yo M with PMHx COPD, HTN, HD, and possible alcohol abusehistory who is being managed for acute hypovolemic/hemorrhagic shock 2/2GI bleed.Patient was intubated for airway protection and has multiple antral andpyloric ulcers with one visible vessel s/p clipping with repeat EGD.Continued oozing required IR guided embolization of gastroduodenal andgastroepiploic arteries on 06/23. Patient received massive transfusionprotocol on admission.This AM, patient is still having dark fluid from his OG tube and continuesto be in AFib. Patient remains intubated and on propofol for sedation aswell as an amiodarone gtt for AFib. Patient was seen and examined. Heremains intubated and sedated. He was febrile yesterday but afebrile todayand there is concern for possible infection of trauma line as it wasplaced emergently.ObjectivePROBLEMS: ACTIVE PROBLEM LISTShock (Hcc)Copd (Chronic Obstructive Pulmonary Disease) (Hcc)HypertensionHyperlipidem iaGI BleedingAcute Respiratory Failure With Hypoxia and Hypercapnia (Hcc)Acute Blood Loss AnemiaHemorrhagic Shock (Hcc)HypophosphatemiaAtrial Fibrillation With Rapid Ventricular Response (Hcc)No past medical history on file.No past surgical history on file.Social History Marital status: Spouse name: Years of education: Number of children:Social History Main TopicsVITAL SIGNS (last 24hrs min/max):Temp Av.8 ?C (100.1 ?F) Min: 37.4 ?C (99.3 ?F) Max: 38.4 ?C (101.1?F)Pulse Av.7 Min: 109 Max: 170Arterial BP 1 Min: 80/46 Max: 138/68Cuff BP Min: 79/57 Max: 125/72Pain Score: 0/10Vital signs reviewed.BP 95/61 Pulse 118 Temp (Src) 99.3 (Axillary) Resp 23 Ht 5' 10"(1.78m) Wt 221 lb 5.5 oz (100.4kg) SpO2 99% BMI 31.76 kg/(m2).Temp (24hrs), Av.8 ?C (100.1 ?F), Min:37.4 ?C (99.3 ?F), Max:38.4 ?C(101.1 ?F)NET FLUID BALANCEIntake/Output Summary (Last 24 hours) at 06/25/17 0902Last data filed at 06/25/17 0737 Gross per 24 hourIntake 3523.6 mlOutput 1460 mlNet 2063.6 mlMEDICATIONSCurrent Facility-Administered Medications:amiodarone 360 mg in D5W 200 mL (NEXTERONE) 0.5-1 mg/min INTRAVENOUSCONTINUOUSfentaNYL 50 mcg/mL 25 mcg injection (SUBLIMAZE) 25 mcg INTRAVENOUS q 2 HPRNperflutren lipid microspheres 1.1 mg/mL 1.3 mL injection (DEFINITY) 1.3 mLINTRAVENOUS PRN(NO DISPENSE)albuterol 2.5 mg/0.5 mL 2.5 mg nebulizer solution (PROVENTIL) 2.5 mgINHALATION q 6 H PRNipratropium-albuterol 3 mL nebulizer solution (DUONEB) 3 mL INHALATION QIDpantoprazole 40 mg injection (PROTONIX) 40 mg INTRAVENOUS BID AC(06/1599)dextrose 5% in NaCl 0.45% with 20 mEq/L KCl iv infusion 60 mL/hrINTRAVENOUS CONTINUOUSpotassium chloride 80-120 mEq oral liquid 80-120 mEq ORAL/FEEDING TUBE PRNpotassium chloride iv piggyback 20 mEq in sterile water 100 mL 60-120 mEqINTRAVENOUS PRNmagnesium sulfate in water 2 g in sterile water 50 ml 2 g INTRAVENOUS PRNcalcium gluconate 4 g in NaCl 0.9% 250 mL 4 g INTRAVENOUS PRNpropofol infusion (DIPRIVAN) 5-50 mcg/kg/min (Order-Specific) INTRAVENOUSCONTINUOUSChlorhex idine Gluconate 0.12 % 15 mL (PERIDEX) 15 mL ORAL q 12 HLines, Drains, and Airways Line Arterial Line 06/21/17 1708 Arterial Line Left Radial 3 days Introducer 06/21/17 1645 Right Neck 3 days Peripheral 06/21/17 2139 Assessment Left Antecubital 20 Gauge 3 days Peripheral 06/24/17 Right Antecubital 20 Gauge 1 day Drain GI Feed/Drain 06/21/171999 Oral Gastric Midline 16 Fr 3 days Indwelling Urinary Catheter 06/21/17 1500 Assessment Miranda 16 Fr 3days Drain/Tube 06/25/17 Buttocks less than 1 day Airway Airway Endotracheal Tube 06/21/17 1545 3 daysPHYSICAL EXAM PERFORMED:General:Cardiovascu lar: Irregularly irregular rate and rhythmRespiratory: Coarse breath sounds bilaterallyAbdomen: Soft and NontenderExtremities: Edema- NoNeurologic: Sedated and IntubatedRespiratory/Nursing Documentation:O2 Therapy: Ventilator (06/25/17816)Invasive Ventilator Mode: Pressure Regulated Volume Control;Automode(06/25/17816)Set Ventilator Respiratory Rate (BPM): 12 (06/25/17816)Total Respiratory Rate (BPM): 21 (06/25/17816)Tidal Volume Set (mL): 500 (06/25/17816)Exhaled Tidal Volume (mL): 478 (06/25/175)Minute Volume (L): 11.8 (06/25/17816)Peak Inspiratory Pressure (cm H2O): 21 (06/25/17816)PEEP/CPAP (cm H2O): 5 (06/25/17816)HEMODYNAMIC DATA: ReviewedNUTRITION:Enteral Feeds: NoNPODATA: Diagnostic tests reviewed for today's visit, films/specimens werepersonally reviewed by me:Most recent labs and imaging results.LABS:Recent Labs WBC 18.57*RBC 3.20*HB 9.5*HCT 27.8*MCV 86.9PLT 140*GLUC 129*BUN 18CREAT 0.68NA 142K 3.9CHLOR 112*CO2 28CA 6.9*ABG:Recent Labs 400PH 7.499*PO2 140.6*PCO2 32.7*3/ CXR:IMPRESSION:?No acute radiographic abnormality. ?The right costophrenic angle is cutoff of the?chest radiograph.?Stable appearance to the chest as compared to the previous exam.Assessment/PlanIMPRESSIO N:Critical Care Documentation: The patient has the following organ/systemimpairment(s): Circulatory shock1. Hemorrhagic Shock 2/ UGIB- Got 3 units PRBC overnight, hoping to extubate today, still hasperipheral and trauma line- GI, Gen Surg consulted and following- Dark output from OG and FMS- S/P IR embolization of gastroduodenal and gastroepiploic arteries on 06/23- Blood cultures: No growth at 2 days- H/H q122. Acute hypoxic respiratory failure- Improving- Patient is intubated, SBT and possible extubation today- Pressure support of 15- Propofol gtt for sedation3. Persistent Atrial Fibrillation with RVR- Patient received digoxin 250mcg x3- On amiodarone gtt- EP consulted- Echo: Pending4. Reactive Leukocytosis- Continue to monitor5. COPD- Not currently in exacerbation- Patient is intubated- Duonebs q46. Hypophosphatemia- Sodium phosphate IV BID7. ICU PPx- Protonix 40mg BID- SCDs8. Possible trauma line infection- Remove line and send blood cultures.9. Disposition- Possible extubation today after SBT- EP consulted for AFib- H/H q12- Follow gen surg/GI recommendations- Remove trauma line and replace with peripheral lineSIGNATURE: Kalyan Reich MD PATIENT NAME: Cristina JeffreyDATE: June 25, 2017 : 9:02 AM Normal [facility] Protein mass conc HNO ID: [id number] thor: Aquiles Harper) BhattacharyyaService: Critical CareAuthor Type: PhysicianType: Progress NotesFiled: 06/25/2017 10:53 AMNote Text:[facility] ST[facility]FF PHYSICIAN NOTE OF PERSONAL INVOLVEMENT IN CAREI have reviewed the progress note obtained and documented by the residentand I personally participated in the rivera components. I have discussed thecase and management of the patient's care. The following comments reviseor confirm relevant rivera components of the note.IMPRESSION:72 year old male with PMH of HTN, COPD, HLD, ?ETOH use presented withmelena to [facility]. He was transferred to [facility] with:??Hemorrhagic shock AND?Acute blood loss anemia 2/2 multiple antral andpyloric ulcers with one visible vessel s/p clipping with poor control ofbleeding requiring repeat EGD and clipping c/b continued oozing requiringIR guided embolization of gastroduodenal and gastroepiploic arteries on06/23/2017. S/p Massive transfusion protocol on admission on admission. LowMAPs / shock suspect secondary to venodilation / rediced preload. Has beentransfused 2/2 A Fib by night team, Hb remains > 7, dark output from OGtubeAcute encephalopathy 2/2 above, improved with improved hemodynamicsType 3 respiratory failure 2/2 above, intubated and mechanicallyventilatedLeukocy tosis, patient febrileAtrial Fibrillation/Flutter in RVR, new onset, On Cardizem drip but poorlycontrolled, switched to Amio GTT and Digoxin, HR lower this morningAKI, likely prerenal, improvedLactic acidosis, HAGMAHypophosphatemia, improvingPLAN:Continue mechanical ventilation. SAT and SBT this AMContinue Amio GTT with Dig, If remains in A Fib RVR will need EP consult,check ECHOCheck Hb Q12 hour, continue ProtonixD/c Trauma line and Arterial line, obtain peripheral IVSend blood CxStart TF / Clear liquid based on intubation statusPhosphorus replacementICU PPxThis patient has a high probability of sudden, clinically significantdeterioration, which requires the highest level of physician preparednessto intervene urgently. I managed/supervised life or organ supportinginterventions that required frequent physician assessment. I devoted myfull attention to the direct care of this patient for the amount of timeindicated below. Time I spent with family or surrogate(s) is includedonly if the patient was incapable of providing the necessary informationor participating in medical decision making. Time devoted to teaching andto any procedures I billed separately is not included.Critical Care Documentation: The patient has the following organ/systemimpairment(s): Arrhythmias and Respiratory failure (Acute)Time spent providing critical care services: 35 minutes.SIGNATURE: MAICO Ross INSTITUTEDATE of SERVICE: 06/25/2017TIME of SERVICE: 8:05 AM [facility] Protein mass conc HNO ID: [id number] thor: Risa (Res) TremellingService: General SurgeryAuthor Type: ResidentType: Progress NotesFiled: 06/25/2017 7:31 AMNote Text:Emergency General Surgery Progress NoteSERVICE DATE: 06/25/2017SUBJECTIVE:Dark output from OG and FMS. No bright red bloody output. 3U PRBCsyesterday. On amio gttOBJECTIVE:Vitals:Temp (24hrs), Av.8 ?C (100.1 ?F), Min:36.8 ?C (98.2 ?F), Max:38.4 ?C(101.1 ?F)BP 115/69 Pulse (!) 135 Temp 37.7 ?C (99.9 ?F) Resp 25 Ht 177.8 cm(5' 10") Wt 100.4 kg (221 lb 5.5 oz) SpO2 99% BMI 31.76 kg/m2O2 Therapy: VentilatorIANDO:Date 06/24/17 0700 - 06/25/17 0659 06/25/17 0700 - 06/26/17 0659Shift 2674-7778 4252-7589 7387-3666 24 Hour Total 6861-3643 [id number] 24 Hour TotalINTAKE IV 1583.4 595.6 655 2834 D5 0.45%NS w/20KCL 495 447 931 8181 IVPB 250 250 NS 0.9% 500 500 Amiodarone 183 128.1 120 431.1 Diltiazem Volume 80.7 80.7 Propofol IV 74.7 97.5 86 258.2 Blood Products 602 337 939 PRBC Intake (mL) 600 336 936 Packed Red Blood Cells Number of Units 2 1 3 Irrigants 30 30 Irrigant/Flush Amount In (GI Feed/Drain 06/21/171999 Oral GastricMidline 16 Fr) 30 30 Shift Total 1583.4 1227.6 992 3803OUTPUT Urine 510 999 150 9325 Tube Output ( Indwelling Urinary Catheter 06/21/171499 AssessmentFoley 16 Fr) 510 336 775 6085 Tubes 200 225 425 Drain/Tube Output (Drain/Tube 06/25/17 Buttocks) 100 100 Output (GI Feed/Drain 06/21/171999 Oral Gastric Midline 16 Fr) 777185 325 # of BMs Stool Incontinence 1 x 1 x Number of BMs 1 x 1 x 2 x Shift Total 510 540 575 1625Weight (kg) 97.5 97.5 100.4 100.4 100.4 100.4 100.4 100.4MEDICATIONSCurrent Facility-Administered Medications:amiodarone 360 mg in D5W 200 mL (NEXTERONE) 0.5-1 mg/min INTRAVENOUSCONTINUOUSfentaNYL 50 mcg/mL 25 mcg injection (SUBLIMAZE) 25 mcg INTRAVENOUS q 2 HPRNperflutren lipid microspheres 1.1 mg/mL 1.3 mL injection (DEFINITY) 1.3 mLINTRAVENOUS PRN(NO DISPENSE)albuterol 2.5 mg/0.5 mL 2.5 mg nebulizer solution (PROVENTIL) 2.5 mgINHALATION q 6 H PRNipratropium-albuterol 3 mL nebulizer solution (DUONEB) 3 mL INHALATION QIDpantoprazole 40 mg injection (PROTONIX) 40 mg INTRAVENOUS BID AC(0600/1600)dextrose 5% in NaCl 0.45% with 20 mEq/L KCl iv infusion 60 mL/hrINTRAVENOUS CONTINUOUSpotassium chloride 80-120 mEq oral liquid 80-120 mEq ORAL/FEEDING TUBE PRNpotassium chloride iv piggyback 20 mEq in sterile water 100 mL 60-120 mEqINTRAVENOUS PRNmagnesium sulfate in water 2 g in sterile water 50 ml 2 g INTRAVENOUS PRNcalcium gluconate 4 g in NaCl 0.9% 250 mL 4 g INTRAVENOUS PRNpropofol infusion (DIPRIVAN) 5-50 mcg/kg/min (Order-Specific) INTRAVENOUSCONTINUOUSChlorhex idine Gluconate 0.12 % 15 mL (PERIDEX) 15 mL ORAL q 12 HLabs:Recent Labs 1821NA 142 -- -- 142K 3.9 -- -- 3.8CHLOR 112* -- -- 110*CO2 28 -- -- 27BUN 18 -- -- 21*CREAT 0.68 -- -- 0.56*GLUC 129* -- -- 166*ANION 6* -- -- 9CA 6.9* -- -- 7.0*P -- -- -- 0.9*WBC 18.57* -- -- 15.91*HB 9.5* 8.4* < > 7.1*HCT 27.8* -- -- 20.6*PLT 140* -- -- 135*PH -- -- -- 7.499*PCO2 -- -- -- 32.7*PO2 -- -- -- 140.6*BE -- -- -- 1.6< > = values in this interval not displayed.Exam:GENERAL: No distress, intubated/sedatedNEURO: intubated/sedatedLUNGS: On ventCARDIAC: Tachycardic, on cardizem gttABDOMEN: Soft, non-distended. NGT AND FMS w/ dark outputEXTREMITIES: MAEASSESSMENT AND PLAN:71 year old male w/ UGI bleed s/p EGD w endoclips/epi 06/21, s/p IRembolization 06/23- monitor Hgb, transfuse per primary- Care per MICU- Protonix BID- F/u H Pylori and biopsies from Rajwinder King MDGeneselect medical [facility] Chief ResidentPromedica [facility] 2017 7:29 [facility] #: Pager: [phone] Normal [facility] Phosphorus Bloodon 8 Phosphate 1.1 mg/dL Critically low 2.5-4.[address] [facility] Comment on above: Performed By: #### F FPXS ####[place] [address] RBC Productson 06-25-2017 Xmatch Unit 1 see below Normal [facility] Comment on above: Result Comment: Comp atible Performed By: #### C BCD1 ####[place] [address] Type and Screenon 06-25-2017 ABO group A Normal [facility] Comment on above: Performed By: #### C BCD1 ####[place] [address] Antibody Screen Negative Normal [facility] Comment on above: Performed By: #### C BCD1 ####[place] [address] Comment See Below Normal [facility] Comment on above: Result Comment: Scre en &/or Xmatch expires in 3 days at 12 midnight. Redrawpatient at that time. Performed By: #### C BCD1 ####[place] [address] RH Type Positive Normal [facility] Comment on above: Performed By: #### C BCD1 ####[place] [address] ALLIED HEALTHon 2017 ALLIED HEALTH HNO ID: [id number] thor: Tea (Hydraulic Rockbreaker Operator) Frederick Bargerice: (none)Author Type: ChaplainType: Allied HealthFiled: 2017 3:37 PMNote Text: SPIRITUALCARESpiritual Care Visit- Brief NoteName: Cristina WojciechMRN: [id number]: June 24, 2017Notes: As a appliance service representative made a visit while doing rounds. PT's nephew andnephew's were in the room. Family indicated that PT is sedated.PT's family asked if hospital cut PT's king. Family indicated that GIbleed was stopped. Family did not request prayer. Signature: Consuelo Colón contact the Spiritual Care Department:Please call [phone] or Page the On-Call Hydraulic Rockbreaker Operator at pager [phone] you for the opportunity to be of service.This is an electronically created document.IF PRINTED, PLEASE DO NOT REMOVE FROM THE CHART OR MODIFY PRINTED COPY. Normal [facility] ALLIED HEALTH HNO ID: [id number] thor: Sr Freed (Tatum Salcedoervice: Spiritual CareAuthor Type: ChaplainType: Allied HealthFiled: 2017 1:47 AMNote Text:SPIRITUAL CARE PROGRESS NOTESERVICE DATE: 2017SERVICE TIME: 06:24 PMPt was ubsent. However, I placed a compassionate note on the small tablefor the pt/family/friends.To contact the Spiritual Care Department: Please call [phone].SIGNATURE: Chaplain Wale PATIENT NAME: Cristina MooreTE: 2017 : 1:45 AM PAGER/CONTACT #: [phone] [facility] Basic Panelon 2017 Creatinine 0.56 mg/dL Low 0.67-1.[address] [facility] Comment on above: Performed By: #### L AC ####[facility] [place] [address] Glucose mass conc 166 mg/dL High 70-[address] [facility] Comment on above: Performed By: #### L AC ####[facility] [place] [address] Anion gap 9 mmol/L Normal 8-[address] [facility] Comment on above: Performed By: #### L AC ####[facility] [place], [place] [address] CO2 27 mmol/L Normal 21-[address] [facility] Comment on above: Performed By: #### L AC ####[facility] [place], [place] [address] Urea nitrogen 21 mg/dL High 7-[address] [facility] Comment on above: Performed By: #### L AC ####[facility] [place], [place] [address] Calcium 7.0 mg/dL Low 8.5-10.[address] [facility] Comment on above: Performed By: #### L AC ####[facility] [place], [place] [address] Chloride 110 mmol/L High 98-[address] [facility] Comment on above: Performed By: #### L AC ####[address] [address] Potassium molar conc 3.8 mmol/L Normal 3.5-5.1 [facility] Comment on above: Performed By: #### L AC ####[address] [address] Sodium 142 mmol/L Normal 136-[address] [facility] Comment on above: Performed By: #### L AC ####[address] [address] Blood Gas Arterialon 018 Base Excess 1.6 mEq/L Normal -2.5 to 2.[address] [facility] Comment on above: Performed By: #### L AC ####[address] [address] Bicarbonate (HCO3) 25.0 mmol/L Normal 22.0-26.[address] [facility] Comment on above: Performed By: #### L AC ####[address] [address] Body temperature 36.[address] [facility] Comment on above: Performed By: #### L AC ####[address] [address] CO2 32.7 mm Hg Low 36.0-46.[address] [facility] Comment on above: Performed By: #### L AC ####[facility] [place], [place] [address] O2% Sat Arterial 98.8 % High 95.0-98.[address] [facility] Comment on above: Performed By: #### L AC ####[facility] [place], [place] [address] pH Arterial 7.499 High 7.350-7.[address] [facility] Comment on above: Performed By: #### L AC ####[facility] [place], [place] [address] PO2 Arterial 140.6 mm Hg High 85.0-96.[address] [facility] Comment on above: Performed By: #### L AC ####[facility] [place] [address] FIO2 30.0 % Normal [facility] Comment on above: Performed By: #### L AC ####[place] [address] CHEST 1 VIEWon 2017 CHEST 1 VIEW Performed at [facility] APPROVED BY: Thanh Trotter MD EXAMINATION: CHEST RADIOGRAPH (SINGLE VIEW AP OR PA) Clinical History: M: [id number]_4Comparison: Chest radiograph from earlier on the same day at 538 as well as June 21, 2017 RESULT: Lines, tubes, and devices: Endotracheal tube tip, nasogastric tube, and right internal jugular venous catheter are stable and unchanged. EKG leads overlie the chest. Lungs and pleura: No consolidation. No lung mass. No pleural effusion. The right costophrenic angle is cut off of the film. Cardiomediastinal silhouette: Normal cardiomediastinal silhouette. Other: No other abnormality is appreciated. IMPRESSION: No acute radiographic abnormality. The right costophrenic angle is cut off of the chest radiograph. Stable appearance to the chest as compared to the previous exam. Normal [facility] CONSULTon 2017 CONSULT HNO ID: [id number] thor: Herman Melendez: GastroenterologyAuthor Type: PhysicianType: ConsultsFiled: 06/25/2017 3:32 PMNote Text:HPI:Cristina Jeffrey is a 72 year old male who presents for UGIB secondary tomultiple GUsHe has PMH of HTN, COPD, HLD, ?ETOH use presented with melena to [facility]. He was transferred to [facility] withHemorrhagic shock. Course outlined below.Also c/b ISMAEL, type 3 resp failure, lactic acidosis and AfibEGD on Jun 21:1. Multiple antral ulcers with 1 large ulcer with a visible vessel at itsbase as the source of bleeding.2. A large ulcer at the pre-pyloric region. Scope advanced to the base ofthe duodenal bulb.EGD on June 23:. NG tube induced mucosal tear at the GE junction, without bleeding,partial thickness.2. Multiple ulcers at the distal antrum and pyloric channel withsignificant deformity.3. The previously Endoclipped and epinephrine injected ulcer is notbleeding and visible vessel has resolved.4. Large pyloric channel ulcer with deformity and stenosis withintermittent oozing of blood diffusely without any visible vessel.5. Normal duodenum.IR procedure June 23:active extravasation from branch vessels arising from the gastroduodenaland gastroepiploic arteries. Target vessels successfully embolizedNo past medical history on file.No past surgical history on file.Current Facility-Administered Medications:amiodarone 360 mg in D5W 200 mL (NEXTERONE) 0.5-1 mg/min INTRAVENOUSCONTINUOUSfentaNYL 50 mcg/mL 25 mcg injection (SUBLIMAZE) 25 mcg INTRAVENOUS q 2 HPRNalbuterol 2.5 mg/0.5 mL 2.5 mg nebulizer solution (PROVENTIL) 2.5 mgINHALATION q 6 H PRNipratropium-albuterol 3 mL nebulizer solution (DUONEB) 3 mL INHALATION QIDpantoprazole 40 mg injection (PROTONIX) 40 mg INTRAVENOUS BID AC(0600/1600)dextrose 5% in NaCl 0.45% with 20 mEq/L KCl iv infusion 60 mL/hrINTRAVENOUS CONTINUOUSpotassium chloride 80-120 mEq oral liquid 80-120 mEq ORAL/FEEDING TUBE PRNpotassium chloride iv piggyback 20 mEq in sterile water 100 mL 60-120 mEqINTRAVENOUS PRNmagnesium sulfate in water 2 g in sterile water 50 ml 2 g INTRAVENOUS PRNcalcium gluconate 4 g in NaCl 0.9% 250 mL 4 g INTRAVENOUS PRNpropofol infusion (DIPRIVAN) 5-50 mcg/kg/min (Order-Specific) INTRAVENOUSCONTINUOUSChlorhex idine Gluconate 0.12 % 15 mL (PERIDEX) 15 mL ORAL q 12 HALLERGIESNo Known AllergiesFamily history reviewed. No history of colon cancer or IBD.Social History Marital status: Spouse name: Years of education: Number of children:Social History Main TopicsREVIEW OF SYSTEMSGASTROINTESTINAL:SEE ABOVEURINARY:NONECARDIOVASCUL AR:NONENEUROLOGICAL:NONECONST ITUTIONAL:NONEEYES:NONEEARS, NOSE AND THROAT:NONERESPIRATORY:NONE SKIN:NONEENDOCRINE:NONEPSYCHI ATRIC:NONEHEMATOLOGICNONEMUSC ULOSKELETAL:NONEIMMUNOLOGIC:N ONEPHYSICAL EXAMINATION:BP 91/59 Pulse 140 Temp (Src) 99.9 (Axillary) Resp 17 Ht 5' 10"(1.78m) Wt 214 lb 15.2 oz (97.5kg) SpO2 99% BMI 30.84 kg/(m2).GENERAL APPEARANCE: intubated and sedatedSKIN: Skin color, texture, turgor normal, no suspicious rashes or lesions.EYES: Anicteric sclera. Pupils are equally round and reactive to light.Extraocular movements are intact. .NECK: Supple, no adenopathy; thyroid symmetric, normal size, no bruits.LUNGS: Lungs clear to auscultation. No wheezing, rhonchi, rales.HEART: RRR without murmur, gallop, or rubs. No ectopy.ABDOMEN: Abdomen soft, non-tender, non distended. Bowel sounds normal.No masses, ascites or hepatosplenomegaly.EXTREMITIE S: No deformities, edema, skin discoloration, clubbing orcyanosis.LABS:Lab tests reviewed.HGB (g/dL)Date Value2017 7.0 Hematocrit (%)Date Value2017 20.6 WBC (thou/cmm)Date Value2017 15.91 Platelet Count (thou/cmm)Date Value2017 135 CreatinineDate Value Ref Range Pmcutp6306/24/2017 0.56 (L) 0.67 - 1.17 mg/dL Final ASTDate Value Ref Range Mrirdw4006/21/2017 34 9 - 37 U/L Final ALTDate Value Ref Range Ujzjjf8706/21/2017 44 12 - 78 U/L Final Blood Culture (no units)Date Value06/22/2017 No growth at 1 day(s)No growth at 2 day(s)Bilirubin, Total (mg/dL)Date Value06/21/2017 1.1 (H)Antibody Screen (no units)Date Value06/21/2017 NEGATIVEWBC (thou/cmm)Date Value2017 15.91 (H)RBC (mil/cmm)Date Value2017 2.29 (L)%DIG,%DBSNo results found for: TSHIMAGING:Imaging including X-rays, Ultrasound, CT scans, MRI scans reviewed.Old records reviewed if available.PlanASSESSMENT AND PLAN:72M with UGIB from antral and pre-pyloric Kaveh. Has had 2 EGDs for clippingand Epi injection.Eventual IR embolization of branches of GDA and gastroepiploicNo further overt luminal blood loss but does have dark fluid in NGT.Currently intubated HD stable but Hb trending down slowly.ASA and Prednisone on hold.Suggest continue Protonix 40mg IV bidAvoid NSAIDsMonitor HbF/U pathology and tx Hp if positiveThank you for involving me in the care of this patient.Herman Lunsford MD MPH FRCPC Normal [facility] Hemogramon 2017 Erythrocyte distribution width Auto Ratio (RBC) 15.6 % High 11.6-14.[address] [facility] Comment on above: Performed By: #### L AC ####[facility] [place], [place] [address] Erythrocytes (RBC) 2.29 mil/cmm Low 4.63-6.08 [facility] Comment on above: Performed By: #### L AC ####[facility] [place], [place] [address] Hematocrit (HCT) 20.6 % Low 40.1-51.[address] [facility] Comment on above: Performed By: #### L AC ####[place] [address] Hemoglobin mass conc (Bld) 7.1 g/dL Low 13.7-17.[address] [facility] Comment on above: Performed By: #### L AC ####[place] [address] MCH 31.0 pg Normal 25.7-32.[address] [facility] Comment on above: Performed By: #### L AC ####[place] [address] MCHC mass conc (RBC) 34.5 % Normal 32.3-36.5 [facility] Comment on above: Performed By: #### L AC ####[place] [address] MCV 90.0 fL Normal 83.2-95.[address] [facility] Comment on above: Performed By: #### L AC ####[place] [address] Nucleated erythrocytes 0.05 thou/cmm High 0.00-0.[address] [facility] Comment on above: Performed By: #### L AC ####[place] [address] Nucleated RBC % 0.3 % High 0.0-0.[address] [facility] Comment on above: Performed By: #### L AC ####[place] [address] Platelet mean volume (PMV) 9.9 fL Normal 8.7-12.[address] [facility] Comment on above: Performed By: #### L AC ####[place] [address] Platelets 135 thou/cmm Low 141-[address] [facility] Comment on above: Performed By: #### L AC ####[place] [address] RDW SD 49.6 fl High 36.1-45.[address] [facility] Comment on above: Performed By: #### L AC ####[place] [address] WBC (Leukocytes) 15.91 thou/cmm High 4.23-9.07 [facility] Comment on above: Performed By: #### L AC ####[place] [id number] Hgbon 2017 Hemoglobin mass conc (Bld) 6.6 g/dL Critically low 13.7-17.[address] [facility] Comment on above: Performed By: #### C BCD1 ####[place] [address] Hemoglobin mass conc (Bld) 7.0 g/dL Critically low 13.7-17.[address] [facility] Comment on above: Performed By: #### C BCD1 ####[place] [address] Hemoglobin mass conc (Bld) 7.2 g/dL Low 13.7-17.[address] [facility] Comment on above: Performed By: #### L AC ####[place] [address] MDRD GFRon 2017 eGFR (non-black) mL/min/{1.73_m2} Normal >60mL/m in/ 1.73m2 [facility] Comment on above: Result Comment: If t he patient is , multiply the result by 1.210. Performed By: #### L AC ####[place] [address] NURSING PROGon 2017 Protein mass conc HNO ID: [id number] thor: Shantel (Rn) KELLY Corderoervice: (none)Author Type: Registered NurseType: Nursing Progress NoteFiled: 2017 7:53 PMNote Text: Nursing Progress: Topic: RESTRAINT NON-VIOLENTPATIENT NAME: Cristina JeffreyMRN: [id number] LOCATION: [place] [address] [address]*The patient demonstrates Confusion, Attempting to Remove Medical DevicesVital to Medical Stability as evidenced by the following behaviorsattempting to pull ETT and central line which pose an imminent danger toself or others.The following interventions were attempted but were not effective inprotecting the patient's safety: Alarms, Family/Significant OtherInvolvement, Bed in Low/Locked Position, Call Light Within ReachNext, a comprehensive assessment was performed and warranted placing thepatient in Soft Bilateral Wrists, the least restrictive restraint neededto protect the patient's safety.Ongoing safety assessments and evaluation for earliest removal ofrestraints will be performed.DATE: June 24, 2017TIME: 7:52 Tessy Cordero RN Normal [facility] Protein mass conc HNO ID: [id number] Author: Yann Spear) GREGORY Barton Service: Nursing Author Type: Registered Nurse Type: Nursing Progress Note Filed: 2017 3:35 PM Note Text: Dr lozano notifed of pt bp diprivan rate decreased to assist with bp no other orders rec'd Normal [facility] Protein mass conc HNO ID: [id number] thor: Yann Barton, KELLYervice: NursingAuthor Type: Registered NurseType: Nursing Progress NoteFiled: 2017 10:05 AMNote Text: Nursing Progress: Topic: RESTRAINT NON-VIOLENTPATIENT NAME: Cristina JeffreyMRN: [id number] LOCATION: [place] [address] [address]*The patient demonstrates Confusion, Inability to Retain InformationRegarding Safety Directions, Impulsive Behavior, Lack ofUnderstanding/Ability to Comply with Safety Directions, Attempting toRemove Medical Devices Vital to Medical Stability as evidenced by thefollowing behaviors pulls at tubs which pose an imminent danger to selfor others.The following interventions were attempted but were not effective inprotecting the patient's safety: Alarms, Bed in Low/Locked Position, CallLight Within Reach, Medications Reviewed, Modify Environment,Pain/Discomfort Relief, Re-Orientation MethodsNext, a comprehensive assessment was performed and warranted placing thepatient in Soft Bilateral Wrists, the least restrictive restraint neededto protect the patient's safety.Ongoing safety assessments and evaluation for earliest removal ofrestraints will be performed.DATE: June 24, 2017TIME: 10:05 Zay Barton RN [facility] Protein mass conc HNO ID: [id number] thor: KELLY Javier Rnervice: NursingFelipahospenser Type: Registered NurseType: Nursing Progress NoteFiled: 2017 5:49 AMNote Text: Nursing Progress NotePatient Name: Cristina LeeN: [id number] Location: [place] [address]*____ Event(s) / Intervention Note:The patient has a Hgb 7.1 now, physician notes indicate keep Hgb>8. Phos0.9.The time of the event occurred at: 2017 0545.The following intervention(s) were initiated: Dr. Bach notified.Awaiting new orders for interventions, nothing further noted. Willcontinue to observe and check with patient..This note was completed by: Natacha Ding RN [facility] Protein mass conc HNO ID: [id number] thor: KELLY Javier Rnervice: NursingAuthospenser Type: Registered NurseType: Nursing Progress NoteFiled: 2017 5:53 AMNote Text: Nursing Progress NotePatient Name: Cristina LeeN: [id number] Location: [place] [address]*____ Event(s) / Intervention Note:The patient has a Hgb 7.2 it was previously 8.8.The time of the event occurred at: @ 2329.The following intervention(s) were initiated: Dr. Bach notified.Awaiting new orders: nothing further noted. Will continue to observe andcheck with patient..This note was completed by: Natacha Ding RN [facility] Protein mass conc HNO ID: [id number] thor: Natacha (Rn) KELLY Dingervice: NursingAuthor Type: Registered NurseType: Nursing Progress NoteFiled: 06/23/2017 10:45 PMNote Text: Nursing Progress: Topic: RESTRAINT NON-VIOLENTPATIENT NAME: Cristina JeffreyMRN: [id number] LOCATION: [place] [address] [address]*The patient demonstrates Confusion, Inability to Retain InformationRegarding Safety Directions, Impulsive Behavior, Lack ofUnderstanding/Ability to Comply with Safety Directions, Attempting toRemove Medical Devices Vital to Medical Stability as evidenced by thefollowing behaviors pulling at medical equipment, and inability to retaininformation and follow instruction, which pose an imminent danger to selfor others.The following interventions were attempted but were not effective inprotecting the patient's safety: Alarms, Bed in Low/Locked Position, CallLight Within Reach, Frequent Observation, Pain/Discomfort ReliefNext, a comprehensive assessment was performed and warranted placing thepatient in Soft Bilateral Wrists, the least restrictive restraint neededto protect the patient's safety.Ongoing safety assessments and evaluation for earliest removal ofrestraints will be performed.DATE: June 23, 2017TIME: 10:41 Mecca Ding RN [facility] PROGRESSon 2017 Protein mass conc HNO ID: [id number] thor: Hollis Manninge: Critical CareAuthor Type: PhysicianType: Progress NotesFiled: 2017 7:46 PMNote Text:Notes and meds reviewed. Full ROS with RN. No ROS with pt possible.Continues to have rapid heart rate. On amio now and cardizem is off.Also been given a dose of digoxin. Adequate UO. No other new issues.Got 1unit of blood today for a Hb of 6.6On exam:101/67, 140-170s, 37.9, 29, 99% on 30% SyS7Rxps: PRVC 500/ 12/ 30%/ 5On sedation but awake; JERONIMO and follows commandsETT and OG in placeIrregularly irregular. Hard to appreciate any murmursDecreased BS at the bases; no added soundsSoft, mildly distended, BS presentNo pedal edemaFoley in placeRight IJ TLC in placeRight radial A-lineIO: 2.1/ 880Data:WCC 15.9, Hb 10.4 - 8.8 - 7.2 - 6.6Plt 1357.49/ 32/ 140Na 142, K 3.8, Cl 110, HCO3 27, BUN 21, Cr 0.5Phos 0.9CXR shows right IJ trauma line and also ETT in place with minimal basilaratelectasis.Impression :Mr Jeffrey is a 71 year old white gentleman with PMH significant for COPD,HTN, HL, and ?alcohol abuse admitted to the unit for GI bleed and shock.?1. Acute hypoxic failure, improving; was intubated for massive GI bleed/airway protection2. A.fib with RVR related to acute anemia and acute illness3. Reactive leukocytosis4. Acute severe blood loss anemia and hemorrhagic shock at presentation;s/p 9 units of PRBC transfusion5. UGIB; PUD; s/p angio-embolization of gastroduodenal and gastroepiploicarteries6. Mild thrombocytopenia7. COPD8. Hypophosphatemia?Recs:- transfuse 1 more unit for anemia and rapid heart rate- ECHO- may need EP inputs as well- c/w IV amio for now- monitor H/H and transfuse as needed- c/w vent support- replete phos and re-evaluate in the am- c/w PPI- SBT in the am- BDs- no lovenox- SCDs- supportive care?This patient has a high probability of sudden, clinically significantdeterioration, which requires the highest level of physician preparednessto intervene urgently. I managed/supervised life or organ supportinginterventions that required frequent physician assessment. I devoted myfull attention to the direct care of this patient for the amount of timeindicated below. Time I spent with family or surrogate(s) is includedonly if the patient was incapable of providing the necessary informationor participating in medical decision making. Time devoted to teaching andto any procedures I billed separately is not included.?PATIENT CHECKLISTAre restraints necessary: Yes. Order written? YesDeep vein thrombosis prophylaxis administered? No. Contraindicated.Stress ulcer prophylaxis? YesFoley catheter necessary? YesIs central line essential? Yes?Patient/Family Updated: d/w Crystal and updated her about her brother anderino got consent from her for blood transfusions. Questions answered.?PROGNOSIS: Fair?Code status: full?Discussed with Respiratory therapist and Registered Nurse.?Critical Care Documentation: The patient has the following organ/systemimpairment(s):Acu te blood loss, Complex life-threatening medical problem(s) andRespiratory failure (Acute, with Hypercapnea, with Hypoxemia)?Time spent providing critical care services: 42 minutes.?SIGNATURE: MAICO Garcia INSTITUTEPAGER:1030? [facility] Protein mass conc HNO ID: [id number] thor: Kian Persaudervice: General SurgeryAuthor Type: PhysicianType: Progress NotesFiled: 07/16/2017 7:24 PMNote Text:Emergency General Surgery Progress NoteSERVICE DATE: 2017SUBJECTIVE:S/p IR embolization of branches of GDA and gastroepiploic arteryyesterday. No bloody stool overnight. No transfusion overnight. Still withdark NG output. On cardizem gttOBJECTIVE:Vitals:Temp (24hrs), Av.7 ?C (98.1 ?F), Min:36.1 ?C (97 ?F), Max:36.9 ?C(98.4 ?F)BP 112/74 Pulse 120 Temp 36.8 ?C (98.2 ?F) (Axillary) Resp (!) 32 Ht 177.8 cm (5' 10") Wt 97.5 kg (214 lb 15.2 oz) SpO2 (!) 87% BMI30.84 kg/m2O2 Therapy: VentilatorIANDO:Date 06/23/17 07 - 06/24/17 0659 06/24/17 07 - 06/25/17 0659Shift 1034-2277 5786-6378 3474-1464 24 Hour Total 7797-7418 [id number] 24 Hour TotalINTAKE IV 2913 1178.2 1031.9 5123.1 420.3 420.3 D5 0.45%NS w/20KCL 815 0589 990 4219 137 137 IVPB 250 250 NS 0.9% 1999 1999 Diltiazem Volume 19 33.5 116.3 168.8 20.6 20.6 Propofol IV 79 117.7 90.6 287.3 12.7 12.7 Shift Total 2913 1178.2 1031.9 5123.1 420.3 420.3OUTPUT Urine 865 861 803 6907 95 95 Tube Output ( Indwelling Urinary Catheter 06/21/17 1500 AssessmentFoley 16 Fr) 865 437 730 6439 95 95 Tubes 0 300 500 800 Output (GI Feed/Drain 06/21/171999 Oral Gastric Midline 16 Fr) 0 [id number] 800 Shift Total 865 1100 1110 3075 95 95Weight (kg) 99.8 99.8 97.5 97.5 97.5 97.5 97.5 97.5MEDICATIONSCurrent Facility-Administered Medications:sodium phosphate 30 mmol in D5W 250 mL 30 mmol INTRAVENOUS ONCEdilTIAZem 100 mg in D5W 100 mL ADD-Arvilla (CARDIZEM) 5 mg/hr INTRAVENOUSCONTINUOUSalbutero l 2.5 mg/0.5 mL 2.5 mg nebulizer solution (PROVENTIL) 2.5 mgINHALATION q 6 H PRNipratropium-albuterol 3 mL nebulizer solution (DUONEB) 3 mL INHALATION QIDpantoprazole 40 mg injection (PROTONIX) 40 mg INTRAVENOUS BID AC(599/1599)dextrose 5% in NaCl 0.45% with 20 mEq/L KCl iv infusion 100 mL/hrINTRAVENOUS CONTINUOUSpotassium chloride 80-120 mEq oral liquid 80-120 mEq ORAL/FEEDING TUBE PRNpotassium chloride iv piggyback 20 mEq in sterile water 100 mL 60-120 mEqINTRAVENOUS PRNmagnesium sulfate in water 2 g in sterile water 50 ml 2 g INTRAVENOUS PRNcalcium gluconate 4 g in NaCl 0.9% 250 mL 4 g INTRAVENOUS PRNpropofol infusion (DIPRIVAN) 5-50 mcg/kg/min (Order-Specific) INTRAVENOUSCONTINUOUSChlorhex idine Gluconate 0.12 % 15 mL (PERIDEX) 15 mL ORAL q 12 HLabs:Recent Labs 06/23/1821NA 142 -- -- 140 < > -- 140 --K 3.8 -- -- 3.9 < > -- 4.2 --CHLOR 110* -- -- 106 < > -- 100 --CO2 27 -- -- 32 < > -- 30 --BUN 21* -- -- 36* < > -- 94* --CREAT 0.56* -- -- 0.76 < > -- 1.45* --GLUC 166* -- -- 123* < > -- 170* --ANION 9 -- -- 6* < > -- 14 --CA 7.0* -- -- 7.6* < > -- 7.1* --P 0.9* -- -- -- -- -- -- --ALB -- -- -- -- -- -- 2.3* --AST -- -- -- -- -- -- 34 --ALT -- -- -- -- -- -- 44 --ALKPHOS -- -- -- -- -- -- 41* --TBILI -- -- -- -- -- -- 1.1* --WBC 15.91* -- -- 15.84* < > -- -- 27.76*HB 7.1* 7.2* < > 10.4* < > 12.6* -- 7.7*HCT 20.6* -- -- 31.1* < > -- -- 22.4*PLT 135* -- -- 138* < > -- -- 233LACT -- -- -- -- -- -- -- 4.5*INR -- -- -- -- -- 1.08 -- 1.15PH 7.499* -- -- -- -- -- 7.336* --PCO2 32.7* -- -- -- -- -- 54.7* --PO2 140.6* -- -- -- -- -- 291.5* --BE 1.6 -- -- -- -- -- 1.9 --< > = values in this interval not displayed.Exam:GENERAL: No distress, intubated/sedatedNEURO: intubated/sedatedLUNGS: On ventCARDIAC: Tachycardic, on cardizem gttABDOMEN: Soft, non-distended. NGT w/ coffee-ground outputEXTREMITIES: MAEASSESSMENT AND PLAN:71 year old male w/ UGI bleed s/p EGD w endoclips/epi 06/21, s/p IRembolization 06/23- monitor Hgb, transfuse per primary- Care per MICU- Protonix BID- F/u H Pylori and biopsies from EGDAbidennys King MDGeneral Surgery Chief ResidentMar 2017 9:22 [facility] #: Pager: [phone] NoteI evaluated the patient and personally participated in the rivera components.I agree with the resident's findings and plan as documented and havediscussed the case and management of the patient's care with the resident.Kian Lobo, [facility]ITALepartment of General SurgerySection of Trauma, Surgery Critical Care, and Acute Care SurgeryDelayed entry [facility] Protein mass conc HNO ID: [id number] thor: Aquiles Harper) BhattacharyyaService: Critical CareAuthor Type: PhysicianType: Progress NotesFiled: 2017 4:47 PMNote Text:[facility] STAFF PHYSICIAN NOTE OF PERSONAL INVOLVEMENT IN CAREI have reviewed the progress note obtained and documented by the residentand I personally participated in the rivera components. I have discussed thecase and management of the patient's care. The following comments reviseor confirm relevant rivera components of the note.IMPRESSION:72 year old male with PMH of HTN, COPD, HLD, ?ETOH use presented withmelena to [facility]. He was transferred to [facility] with:??Hemorrhagic shock AND?Acute blood loss anemia 2/2 multiple antral andpyloric ulcers with one visible vessel s/p clipping with poor control ofbleeding requiring repeat EGD and clipping c/b continued oozing requiringIR guided embolization of gastroduodenal and gastroepiploic arteries on06/23/2017. S/p Massive transfusion protocol on admission on admission. LowMAPs / shock suspect secondary to venodilation / rediced preload. Drop inHb noted this morning, OG tube still has bloody output, unsure if old.Acute encephalopathy 2/2 above, improved with improved hemodynamicsType 3 respiratory failure 2/2 above, intubated and mechanicallyventilatedLeukocy tosis, downtrendingAtrial Fibrillation/Flutter in RVR, new onset, On Cardizem drip but poorlycontrolledAKI, likely prerenal, improvedLactic acidosis, HAGMAHypophosphatemiaPLAN:Con tinue mechanical ventilation. SAT and SBT if Hb remains stable and onceA Fib better controlledFentanyl PRNSwitch to Amio drip. DigNS Bolus 500 cc, if needs pessors will do phenylephrineCheck Hb Q6 hour, continue Protonix dripKeep NPO, D51/2NS with K, reduce rate to target net even volume statusD/c Trauma line and Arterial line, insert central line if necessaryICU PPxThis patient has a high probability of sudden, clinically significantdeterioration, which requires the highest level of physician preparednessto intervene urgently. I managed/supervised life or organ supportinginterventions that required frequent physician assessment. I devoted myfull attention to the direct care of this patient for the amount of timeindicated below. Time I spent with family or surrogate(s) is includedonly if the patient was incapable of providing the necessary informationor participating in medical decision making. Time devoted to teaching andto any procedures I billed separately is not included.Critical Care Documentation: The patient has the following organ/systemimpairment(s): Arrhythmias and Circulatory shockTime spent providing critical care services: 35 minutes.SIGNATURE: MAICO Ross INSTITUTEDATE of SERVICE: 2017TIME of SERVICE: 8:31 AM [facility] Protein mass conc HNO ID: [id number] thor: Douglas (Adelina) Dirvice: Critical CareAuthor Type: ResidentType: Progress NotesFiled: 2017 11:06 AMNote Text: At testation signed by Aquiles Osborne at 2017 5:03 [facility] STAFF PHYSICIAN NOTE OF PERSONAL INVOLVEMENT IN CAREI have reviewed the progress note obtained and documented by the resident and Ipersonally participated in the rivera components. I have discussed the case andmanagement of the patient's care. Please refer to my note from 2017 for myassessment and plan.SIGNATURE: Aquiles Osborne, [facility] --CRITICAL CARE CONSULT NOTESERVICE DATE: 2017SERVICE TIME: 8:10 AMREASON FOR CONSULT: CARMEL CaldwellDMITTING PROVIDER: Aquiles OsborneSERVICE DATE: 2017SERVICE TIME: 8:10 AMAdmission Date: 06/21/2017AGE: 72 year oldLOS: 1 daysSubjective- s/p IR angio embolization. - OG draining dark old blood material- SBT trial attempted : placed pt on CPAP 5, PS 5, 30% FIO2. His RRimmediately jumped into the upper 40s and 50s. Placed back on previoussettings, RN aware.ObjectivePROBLEMS: ACTIVE PROBLEM LISTShock (Hcc)Copd (Chronic Obstructive Pulmonary Disease) (Hcc)HypertensionAtrial Fibrillation (Hcc)HyperlipidemiaGI BleedingNo past medical history on file.No past surgical history on file.Social History Marital status: Spouse name: Years of education: Number of children:Social History Main TopicsVITAL SIGNS (last 24hrs min/max):Temp Av.7 ?C (98.1 ?F) Min: 36.1 ?C (97 ?F) Max: 36.9 ?C (98.4 ?F)Pulse Av.6 Min: 79 Max: 161Arterial BP 1 Min: 85/45 Max: 144/71Cuff BP Min: 80/57 Max: 158/129Pain Score: 0/10Vital signs reviewed.BP 112/74 Pulse 120 Temp (Src) 98.2 (Axillary) Resp 32 Ht 5' 10"(1.78m) Wt 214 lb 15.2 oz (97.5kg) SpO2 87% BMI 30.84 kg/(m2).Temp (24hrs), Av.7 ?C (98.1 ?F), Min:36.1 ?C (97 ?F), Max:36.9 ?C(98.4 ?F)NET FLUID BALANCEIntake/Output Summary (Last 24 hours) at 06/24/17 0810Last data filed at 06/24/17 0800 Gross per 24 hourIntake 5410.4 mlOutput 3020 mlNet 2390.4 mlMEDICATIONSCurrent Facility-Administered Medications:sodium phosphate 30 mmol in D5W 250 mL 30 mmol INTRAVENOUS ONCEdilTIAZem 100 mg in D5W 100 mL ADD-Arvilla (CARDIZEM) 5 mg/hr INTRAVENOUSCONTINUOUSalbutero l 2.5 mg/0.5 mL 2.5 mg nebulizer solution (PROVENTIL) 2.5 mgINHALATION q 6 H PRNipratropium-albuterol 3 mL nebulizer solution (DUONEB) 3 mL INHALATION QIDpantoprazole 40 mg injection (PROTONIX) 40 mg INTRAVENOUS BID AC(0600/1600)dextrose 5% in NaCl 0.45% with 20 mEq/L KCl iv infusion 100 mL/hrINTRAVENOUS CONTINUOUSpotassium chloride 80-120 mEq oral liquid 80-120 mEq ORAL/FEEDING TUBE PRNpotassium chloride iv piggyback 20 mEq in sterile water 100 mL 60-120 mEqINTRAVENOUS PRNmagnesium sulfate in water 2 g in sterile water 50 ml 2 g INTRAVENOUS PRNcalcium gluconate 4 g in NaCl 0.9% 250 mL 4 g INTRAVENOUS PRNpropofol infusion (DIPRIVAN) 5-50 mcg/kg/min (Order-Specific) INTRAVENOUSCONTINUOUSChlorhex idine Gluconate 0.12 % 15 mL (PERIDEX) 15 mL ORAL q 12 HLines, Drains, and Airways Line Arterial Line 06/21/17 1708 Arterial Line Left Radial 2 days Introducer 06/21/17 1645 Right Neck 2 days Peripheral 06/21/17 2139 Assessment Left Antecubital 20 Gauge 2 days Drain GI Feed/Drain 06/21/171999 Oral Gastric Midline 16 Fr 2 days Indwelling Urinary Catheter 06/21/17 1500 Assessment Miranda 16 Fr 2days Airway Airway Endotracheal Tube 06/21/17 1545 2 daysPHYSICAL EXAM PERFORMED:Cardiovascular: Irregular rhythm; tachycardicRespiratory: Reduced breath sounds bilat, no wheeze,rhonchi or crackles%FIO2 Min: 30 Max: 100Abdomen: Firm, Distended and Positive bowel soundsExtremities: Edema- YesNeurologic: SedatedRespiratory/Nursing Documentation:O2 Therapy: Ventilator (06/24/17754)Invasive Ventilator Mode: Pressure Regulated Volume Control ()Set Ventilator Respiratory Rate (BPM): 12 (06/24/17725)Total Respiratory Rate (BPM): 31 (06/24/17725)Tidal Volume Set (mL): 450 (06/24/17725)Exhaled Tidal Volume (mL): 465 (06/24/17 0335)Minute Volume (L): 13 (06/24/17725)Peak Inspiratory Pressure (cm H2O): 17 (06/24/17725)PEEP/CPAP (cm H2O): 5 (06/24/17725)HEMODYNAMIC DATA: ReviewedNUTRITION:NPODATA: Diagnostic tests reviewed for today's visit, films/specimens werepersonally reviewed by me:Most recent labs and imaging results.Recent Labs 250 06/23/18020 06/21/1817WBC 15.91* -- -- 15.84* -- 18.72* -- --HB 7.1* 7.2* 8.8* 10.4* < > 12.2* < > --HCT 20.6* -- -- 31.1* -- 34.5* -- --PLT 135* -- -- 138* -- 138* -- --NA 142 -- -- 140 -- 140 -- 140K 3.8 -- -- 3.9 -- 3.4* -- 4.2CHLOR 110* -- -- 106 -- 100 -- 100CO2 27 -- -- 32 -- 37* -- 30CREAT 0.56* -- -- 0.76 -- 1.30* -- 1.45*BUN 21* -- -- 36* -- 81* -- 94*GLUC 166* -- -- 123* -- 115* -- 170*P 0.9* -- -- -- -- -- -- --TPROT -- -- -- -- -- -- -- 4.6*ALB -- -- -- -- -- -- -- 2.3*CA 7.0* -- -- 7.6* -- 7.7* -- 7.1*ALKPHOS -- -- -- -- -- -- -- 41*TBILI -- -- -- -- -- -- -- 1.1*AST -- -- -- -- -- -- -- 34ALT -- -- -- -- -- -- -- 44< > = values in this interval not displayed.ABG:Recent Labs 400 PH 7.499* 7.336*PO2 140.6* 291.5*PCO2 32.7* 54.7*Blood cx ngtdAssessment/PlanIMPRESSION :1.Acute blood loss anemia 2/2 UGIB 2/2?multiple antral and pyloric ulcerss/p clips s/p IR embolization2. Hemorrhagic shock3. Acute hypoxic respiratory failure4. Atrial Flutter, 2:1 Block new onset5. Lactic acidosis, HAGMAMMP??CRITICAL CARE PLAN:- s/p upper gi endoscopy s/p clips- IR did embolization for intermittently oozing large deep ulcer.- continue mechanical ventilation.- d/c cardizem gtt --> switched to amio gtt for uncontrolled atrialflutter- target hr <110- hgb q6hr, keep hgb over 7.- f/u hgb- take out the central lineCritical Care Documentation: The patient has the following organ/systemimpairment(s):1.A cute blood loss anemia 2/2 UGIB 2/2?multiple antral and pyloric ulcerss/p clips s/p IR embolization2. Hemorrhagic shock3. Acute hypoxic respiratory failure4. Atrial Flutter, 2:1 Block new onset5. Lactic acidosis, HAGMAThis patient has a high probability of sudden, clinically significantdeterioration, which requires the highest level of physician preparednessto intervene urgently. I managed/supervised life or organ supportinginterventions that required frequent physician assessment. I devoted myfull attention to the direct care of this patient for the amount of timeindicated below. Time I spent with family or surrogate(s) is includedonly if the patient was incapable of providing the necessary informationor participating in medical decision making. Time devoted to teaching isnot included.Discussed with staff/patient/familyTime spent providing critical care services: 30 minutes excludingprocedures.SIGNATURE : Douglas Scott MD PATIENT NAME: Cristina JeffreyDATE: 2017 : 8:10 AM [facility] Protein mass conc HNO ID: [id number] thor: Hollis Manninge: Critical CareAuthor Type: PhysicianType: Progress NotesFiled: 06/23/2017 11:07 PMNote Text:Notes and meds reviewed. Full ROS with RN and [employer] ENGINEER. Not much ETTsecretions. Off pressors now. On sedation. Not able to do ROS with pt.S/p IR angio embolization today.On exam:97/78, 114, 36.1, 32, 100% on 100%AC: 400/ 16/ 100/ 5On sedation; NADETT and OG in place; OG has dark old blood materialPer RN - follows commands and MAETachy but regularDecreased BS at the bases; no added soundsSoft, NT, BS presentFoley in placeIO: 4.0/ 1.9Data:7.33/ 54/ 291 - 06/21WCC 15, Hb 10.4 --> 8.8, Plt 138Na 140, K 3.9, Cl 106, HCO3 32, BUN 36, Cr 0.7BCx - NGTDCXR from 06/21 reviewed. No CXR after intubation notedImpression:Mr Jeffrey is a 71 year old white gentleman with PMH significant for COPD,HTN, HL, and ?alcohol abuse admitted to the unit for GI bleed and shock.1. Acute hypercapnic and hypoxic (probably hypercapnic) failure2. COPD3. Resolved hemorrhagic shock s/p multiple transfusions4. Acute blood loss anemia5. UGIB; PUD; s/p angio-embolization of gastroduodenal and gastroepiploicarteries6. Reactive leukocytosis7. Mild thrombocytopenia8. A.fib with RVR, on cardizem, dripRecs:- monitor H/H and transfuse as needed- change vent settings- get CXR for tube position- PPI- SBT and gas in the am- BDs- wean cardizem as tolerated- no lovenox- SCDs- supportive care- possible extubation tomorrow.- check phos in the amThis patient has a high probability of sudden, clinically significantdeterioration, which requires the highest level of physician preparednessto intervene urgently. I managed/supervised life or organ supportinginterventions that required frequent physician assessment. I devoted myfull attention to the direct care of this patient for the amount of timeindicated below. Time I spent with family or surrogate(s) is includedonly if the patient was incapable of providing the necessary informationor participating in medical decision making. Time devoted to teaching andto any procedures I billed separately is not included.PATIENT CHECKLISTAre restraints necessary: Yes. Order written? YesDeep vein thrombosis prophylaxis administered? No. Contraindicated.Stress ulcer prophylaxis? YesFoley catheter necessary? YesIs central line essential? YesPatient/Family Updated: no family at the bedsidePROGNOSIS: FairCode status: fullDiscussed with Respiratory therapist and Registered Nurse.Critical Care Documentation: The patient has the following organ/systemimpairment(s):Acu te blood loss, Complex life-threatening medical problem(s) andRespiratory failure (Acute, with Hypercapnea, with Hypoxemia)Time spent providing critical care services: 40 minutes.SIGNATURE: MAICO Garcia INSTITUTEPAGER:1030 [facility] Phosphorus Bloodon 8 Phosphate 0.9 mg/dL Critically low 2.5-4.[address] [facility] Comment on above: Performed By: #### C BCD1 ####[facility] [place], [place] [address] THERAPY NTon 2017 THERAPY NT HNO ID: [id number] thor: Terri (Car Packer) YANNI RogersService: Respiratory TherapyAuthor Type: Registered Resp TherapistType: Therapy (PT/OT/Speech/Resp)Filed: 2017 3:55 AMNote Text:I attempted to do a SBT on patient while RN in room. I placed pt on CPAP5, PS 5, 30% FIO2. His RR immediately jumped into the upper 40s and 50s,we attempted to calm him down however it didn't work. Placed back onprevious settings, RN aware. [facility] ABDOMEN 1 VIEWon 06-23-2017 ABDOMEN 1 VIEW Performed at [facility] APPROVED BY: Thanh Trotter MD EXAM TITLE: ABDOMEN 1 VIEW DATE: 06/23/2017 12:36 COMPARISON: June 21, 2017 CLINICAL INDICATION/HISTORY: The patient is a 72-year-old male with orogastric tube placement. TECHNIQUE: A single view centered on the diaphragm and lower chest is presented. FINDINGS:The orogastric tube tip is in the fundus of stomach.No abnormality dilated bowel loops are noted.The visualized lungs are clear.There is no abnormal calcifications.There is thoracic spondylosis and slight dextroscoliosis. IMPRESSION: The orogastric tube tip is in the fundus of stomach. Normal [facility] Basic Panelon 06-23-2017 Creatinine 0.76 mg/dL Normal 0.67-1.[address] [facility] Comment on above: Performed By: #### L AC ####[facility] [place], [place] [address] Glucose mass conc 123 mg/dL High 70-[address] [facility] Comment on above: Performed By: #### L AC ####[facility] [place], [place] [address] Urea nitrogen 36 mg/dL High 7-[address] [facility] Comment on above: Performed By: #### L AC ####[facility] [place], [place] [address] Anion gap 6 mmol/L Low 8-[address] [facility] Comment on above: Performed By: #### L AC ####[facility] [place], [place] [address] Calcium 7.6 mg/dL Low 8.5-10.[address] [facility] Comment on above: Performed By: #### L AC ####[facility] [place], [place] [address] CO2 32 mmol/L Normal 21-[address] [facility] Comment on above: Performed By: #### L AC ####[facility] [place] [address] Chloride 106 mmol/L Normal 98-[address] [facility] Comment on above: Performed By: #### L AC ####[address] [address] Potassium molar conc 3.9 mmol/L Normal 3.5-5.1 [facility] Comment on above: Performed By: #### L AC ####[place] [address] Sodium 140 mmol/L Normal 136-[address] [facility] Comment on above: Performed By: #### L AC ####[address] [address] CASE MGT INIT ASSCASIEon 2017 CASE MGT INIT MICHAEL HNO ID: [id number] thor: Toshia (Rn) KELLY Dumaservice: Care ManagementAuthor Type: Registered NurseType: Care Mgt Initial AssessmentFiled: 06/23/2017 1:55 PMNote Text:CARE MANAGEMENT: ASSESSMENT AND DISCHARGE PLANSERVICE DATE: 06/23/2017SERVICE TIME: 1:46 PMPRIMARY CARE PHYSICIAN:ENRIQUE Perez Chihone: [phone] STATUS: InpatientMEDICAL:Patient/Repr esentative Stated Goals:To return home to life as it wasHealth Insurance: MEDICARE A AND BMedicaidHealth Issues Impacting Discharge Plan: NoneLast Admission Date: noneIs this Within the Past 30 days? NoHealth Literacy:1. How often do you need to have someone help you when you readinstructions, pamphlets, or other written material from your doctor orpharmacy? Never - 12. How confident are you filling out medical forms by yourself? Extremely- 1If Patient scores > 3 on either question, the following interventions wereput into place:Patient did not score > 3FUNCTIONAL AND COGNITIVE/BEHAVIORALPRIOR TO ADMISSION:Baseline Mental Status: Alert AND Oriented, Person, Place , Time andSituationFunctional Status: IndependentDoes Patient Currently Receive Any Community Services or Home Care? NoneEquipment Prior to Admission: nebulizerHas the Patient Been in a Nursing Home Facility in the Past 30 days? NoSOCIAL:Living Arrangement: HomeLives With: AloneFinancial Resources: RetiredPrimary Contact: Extended Emergency Contact InformationPrimary Emergency Contact: [place] [address] [facility] Esjecncz: SisterSupportive: YesOther Important Patient Contacts: NoneCaregiver Assessment:Caregiver is ready, willing and able to meet the patient's needs asrecommended by the inter-professional team? NoPatient's transition needs and plan for meeting these needs: yesDoes the patient have an acute stroke diagnosis, or has the patient had astroke during this admission? NoMedication Adherence:I am convinced of the importance of my prescription medication: Agreecompletely - 0I worry that my prescription medication will do more harm than good to meDisagree completely - 0I feel financially burdened by my [id number] expenses for myprescription medication: Disagree completely - 0Patient is categorized as low risk < 2Are you interested in bedside delivery of your medications? YesFood Concerns:In the Last Month, Have You had Trouble Getting Food? No trouble gettingfoodDuring the Last Month, Have You Worried Whether Your Food Would Run OutBefore You Had Enough Money to Buy More? NoIs the Patient Psychosocially Complex? NoASSESSMENT AND PLAN:Medical Needs: Respiratory Insufficiency - unsure needs.Psychosocial Needs: NoneFREEDOM OF CHOICE EXPLAINED:N/APOTENTIAL TRANSITION PLANSHomsarah Perez helped answer questions for assessment.SIGNATURE: Toshia Dumas RN PATIENT NAME: Cristina MooreTE: June 23, 2017 : 1:46 PM PAGER/CONTACT #: [phone] [facility] CNCRITCRon 06-23-2017 CNCRITCR HNO ID: [id number] thor: Erick (Rn) KELLY Lopezervice: NursingAuthor Type: Registered NurseType: Critical Care TransportFiled: 06/23/2017 5:57 PMNote Text:Pt transferred to via bed, along with tele monitor chart o2, chart, andrepiratory therapy. Two transporters with. [facility] EMBOLIZATION HEMORRHAGE 3724 4on 06-23-2017 EMBOLIZATION HEMORRHAGE [address]90 Performed at [facility] APPROVED BY: Dre Woodward MD EXAM TITLE: MESENTERIC ARTERIOGRAM AND EMBOLIZATION DATE: 06/23/2017 16:00 COMPARISON: None. CLINICAL INDICATION/HISTORY: The patient has recent episodes of upper gastrointestinal bleeding. The patient has had 2 episodes of upper endoscopy demonstrating ulcerations within the gastric antrum and prepyloric regions. Attempts were made to treat the bleeding from the ulcerated areas with both the clips and epinephrine injections. These have not been completely successful. The patient is having continued bleeding. The patient is referred for mesenteric arteriography and possible embolization. FINDINGS: Informed consent was was previously obtained from the family.(Sister). The patient was placed in the supine position. All elements of maximum barrier technique including surgical cap and mask, sterile gown, sterile gloves, a large sterile drape, hand hygiene and appropriate prep agent for cutaneous antisepsis were utilized and maintained for this procedure. A timeout was performed. Local anesthesia was affected with 2 visible Xylocaine. Utilizing real-time ultrasound of the right common femoral, superficial femoral and profunda femoral arteries were identified. Utilizing real-time ultrasound guidance a 21-gauge micropuncture needle was introduced into the right common femoral artery. A 0.018 guidewire is introduced. The micropuncture needle was withdrawn. A 4 Israeli dilator was then inserted over the guidewire. The introducer and guidewire were removed. A ÜberResearchson guidewire is then introduced and advanced into the distal abdominal aorta. The 4 Israeli dilator was withdrawn. A 5 Israeli sheath was then inserted over the guidewire. The introducer and guidewire were removed. A pressure bag was attached to the side port of the sheath in order to maintain patency. A 4 Israeli glide C2 catheter was then introduced and advanced into the proximal abdominal aorta. Multiple attempts were made to selectively catheterize the celiac axis. Although the origin could be engaged a catheter and guidewire were unable to be advanced into the common hepatic artery. The 4 Israeli C2 catheter was exchanged for a 5 Israeli Sos Omni select catheter. The superior mesenteric artery was able to be engaged. During hand injection was noted that the patient had a replaced right hepatic artery. The origin of the celiac axis was able to be selected. A guidewire was able to be advanced into the proximal proper hepatic artery, however advancement of the sauce Omni select catheter over the guidewire was unsuccessful. The Sos Omni select catheter was withdrawn. The 5 Israeli sheath was then exchanged for a 6 Israeli Ansell guiding sheath. The tip of the catheter was placed near the origin of the celiac axis. A long 5 Israeli C2 catheter was then introduced. The celiac axis and subsequently the common hepatic artery were able to be selectively catheterized. Digital angiography was then performed. Angiography demonstrated a large gastroduodenal artery which gives rise to a large gastroepiploic artery. There is also a short proper hepatic artery supplying the left hepatic artery. Note was made of active extravasation from a branch vessel arising from the proximal one third of the right gastroepiploic artery. An angled Glidewire was introduced and the gastroduodenal and subsequently the right gastroepiploic artery were selectively catheterized. The Ansell sheath was then able to be advanced over the C2 catheter and its tip was positioned near the origin of the gastroduodenal artery. A renegade catheter and transcend guidewire were then coaxially introduced through the 5 Israeli C2 catheter. Numerous attempts were made to selectively catheterize the branch vessel supplying the area of active extravasation. Despite multiple attempts this was unsuccessful. At this point the C2 catheter was advanced beyond the origin of the target vessel. A 3 mm x 40 mm MReye embolization coil and 2 3 x 30 mm MReye embolization coils were then deployed. Gelfoam slurry was instilled. This resulted in successful occlusion of the target vessel. The C2 catheter was then repositioned proximal to the origin of the branch vessel. An additional 3 mm x 40 mm MReye embolization coil was placed. Additional Gelfoam slurry was then injected. This resulted in successful occlusion of the target segment. The C2 catheter was then withdrawn into the proximal gastroduodenal artery. Contrast was instilled. Although this demonstrated decrease in rate of flow multiple patent branch vessels arising from the gastroduodenal artery and supplying the region where multiple endoscopic clips are present was identified. At this 900 micron Embozene embolization spheres were instilled. This resulted in marked decrease flow through the branch vessels. The C2 catheter was withdrawn. The Pastor sheath was withdrawn into the proximal celiac axis. Digital angiography demonstrated a widely patent splenic artery. There is marked reduced flow through the proper hepatic artery and its branch vessels. The rectal sheath was then withdrawn into the proximal abdominal aorta. The superior mesenteric artery was then selectively catheterized. Digital angiography was performed. This demonstrated a widely patent superior mesenteric artery. Again there is noted to be a replaced right hepatic artery. No significant collateral branches supplying the area of target embolization was identified. At this point the procedure was terminated. The sheath were removed and hemostasis was obtained with direct pressure. The patient tolerated the procedure well. No immediate complications were noted. The patient received conscious sedation with intravenous Versed and Fentanyl. . The patient was monitored throughout the procedure by the Radiology nurse. Intra-service time (monitoring for moderate sedation) (starts with administration of agent, ends when continuous [id number] time ends): 153 minutes Patient monitoring: I personally supervised and directed an independent trained observer who assisted in monitoring the patient?s level of consciousness and physiological status throughout the procedure. The patient was returned to the intensive care unit in stable condition . IMPRESSION: 1. The patient has very anatomy with a replaced right hepatic artery arising from the superior mesenteric artery. 2. Active extravasation from a branch vessel from the proximal right gastroepiploic artery. 3. Technically successful embolization of target vessels as described above. Fluoroscopic Time: 32 minutes 0 seconds Radiation Exposure: 3247 mGyVolume of Contrast: 103 cc of Visipaque 270Number of Images: 560 Antibiotics: None Normal [facility] HISTORY PHYSICALon 8 HISTORY PHYSICAL HNO ID: [id number] thor: Dre Trejoervice: Interventional RadiologyAuthor Type: PhysicianType: HANDPFiled: 06/23/2017 6:39 PMNote Text:UPDATED HISTORY AND PHYSICAL EXAMINATIONSERVICE DATE: 06/23/2017SERVICE TIME: 6:37 PMPHYSICAL EXAM MUST BE COMPLETED ON ADMISSIONThe History and Physical (completed in the past 30 days) has been reviewedand the patient has been examined. The contents accurately reflect thepatient's condition with the following additions or revisions since theHANDP was completed.Examination indicates no changes.This HANDP can be found in the Electronic Medical Record dated 06/21/17,consults 06/21/17 progress note 06/23/17.SIGNATURE: Dre Woodward MD PATIENT NAME: Cristina JeffreyDATE: June 23, 2017 : 6:37 PM PAGER: [facility] Hemogramon 06-23-2017 Erythrocyte distribution width Auto Ratio (RBC) 16.5 % High 11.6-14.[address] [facility] Comment on above: Performed By: #### P PHRS ####[place] [address] Erythrocytes (RBC) 3.43 mil/cmm Low 4.63-6.08 [facility] Comment on above: Performed By: #### P PHRS ####[place] [address] Hematocrit (HCT) 31.1 % Low 40.1-51.[address] [facility] Comment on above: Performed By: #### P PHRS ####[place] [address] Hemoglobin mass conc (Bld) 10.4 g/dL Low 13.7-17.[address] [facility] Comment on above: Performed By: #### P PHRS ####[place] [address] MCH 30.3 pg Normal 25.7-32.[address] [facility] Comment on above: Performed By: #### P PHRS ####[place] [address] MCHC mass conc (RBC) 33.4 % Normal 32.3-36.5 [facility] Comment on above: Performed By: #### P PHRS ####[place] [address] MCV 90.7 fL Normal 83.2-95.[address] [facility] Comment on above: Performed By: #### P PHRS ####[place] [address] Nucleated erythrocytes 0.05 thou/cmm High 0.00-0.[address] [facility] Comment on above: Performed By: #### P PHRS ####[place] [address] Nucleated RBC % 0.3 % High 0.0-0.[address] [facility] Comment on above: Performed By: #### P PHRS ####[place] [address] Platelet mean volume (PMV) 9.6 fL Normal 8.7-12.[address] [facility] Comment on above: Performed By: #### P PHRS ####[place] [address] Platelets 138 thou/cmm Low 141-[address] [facility] Comment on above: Performed By: #### P PHRS ####[place] [address] RDW SD 54.2 fl High 36.1-45.[address] [facility] Comment on above: Performed By: #### P PHRS ####[place] [address] WBC (Leukocytes) 15.84 thou/cmm High 4.23-9.07 [facility] Comment on above: Performed By: #### P PHRS ####[place] [address] Hgbon 06-23-2017 Hemoglobin mass conc (Bld) 8.8 g/dL Low 13.7-17.[address] [facility] Comment on above: Performed By: #### L AC ####[place] [address] MDRD GFRon 06-23-2017 eGFR (non-black) mL/min/{1.73_m2} Normal >60mL/m in/ 1.73m2 [facility] Comment on above: Result Comment: If t he patient is , multiply the result by 1.210. Performed By: #### L AC ####[place] [address] NURSING PROGon 06-23-2017 Protein mass conc HNO ID: [id number] thor: Natacha (Rn) KELLY Dingervice: NursingAuthor Type: Registered NurseType: Nursing Progress NoteFiled: 06/23/2017 7:34 PMNote Text: Nursing Progress NotePatient Name: Cristina JeffreyMRN: [id number] Location: [place] [address]/[place] [address]*____ Transfer Note:Patient transferred into room/unit 4815 from IR in stable condition.Transferred by transport team, RT and IR nurse. No futher actions taken atthis time. Will continue to monitor and check with patient.This note was completed by: Natacha Ding RN [facility] Protein mass conc HNO ID: [id number] thor: Erick BarnettRn) KELLY Lopezervice: NursingAuthor Type: Registered NurseType: Nursing Progress NoteFiled: 06/23/2017 11:24 AMNote Text:Dr Dominguez at bedside for egd. Sister javi spoke to over phone for consentby Dr dominguez and RN. EGD began at 0940, upon the start pts heart rateincreased into the 170's 160'd, Dr Cole notified and arrived at bedside. Procedure stopped at [address] dominguez required different equipment tofinish procedure. Pt medicated at 1005. Procedure began once again kh2023. Respiratory notified that stat ekg ordered, and obtained after egdprocedure. [facility] Protein mass conc HNO ID: [id number] thor: Erick (Rn) John RNService: NursingAuthor Type: Registered NurseType: Nursing Progress NoteFiled: 06/23/2017 7:41 AMNote Text: Nursing Progress: Topic: RESTRAINT NON-VIOLENTPATIENT NAME: Cristina LeeN: [id number] LOCATION: [place] [id number]The patient demonstrates Confusion as evidenced by the following behaviorsreaches towards et tube and medical equipment which pose an imminentdanger to self or others.The following interventions were attempted but were not effective inprotecting the patient's safety: Alarms, Bed in Low/Locked Position, CallLight Within Reach, Gauze Wrap/Sleeve IV Site, IV/Feeding Bag/Pump Out ofVision, Medications Reviewed, Modify Environment, Modify Equipment,Frequent ObservationNext, a comprehensive assessment was performed and warranted placing thepatient in Soft Bilateral Wrists, the least restrictive restraint neededto protect the patient's safety.Ongoing safety assessments and evaluation for earliest removal ofrestraints will be performed.DATE: June 23, 2017TIME: 7:40 Elena Lopez RN [facility] NUTRITIONon 06-23-2017 NUTRITION HNO ID: [id number] thor: OUMOU [place] Rdervice: Nutrition TherapyAuthor Type: Registered DietitianType: NutritionFiled: 06/23/2017 2:44 PMNote Text:NUTRITION THERAPY INITIAL ASSESSMENTSERVICE DATE: 06/23/2017SERVICE TIME: 1145amRECOMMENDED MALNUTRITION DIAGNOSIS: UNABLE TO IDENTIFY MALNUTRITION ATTHIS TIME as questionable appetite and wt changes per family(currentlyunavailable) as part of MST scoring.NUTRITION CARE PLAN:Problem, Etiology and Signs/Symptoms:Suboptimal protein/energy intake related to GIB as evidenced by activebleeding, EGD results, and current state of hemorrhagic shock.Intervention:Consider initiating support soon if remains vented.Surgery/GI following: If unable to feed via GI route and tpn needed,recommend 90gms pro, 1008kcals CHO, 216kcals from fat.( total 1800kcals)If TF's feasible, recommend Impact Peptide 50ml/hr providing 1800kcals,113gms proCoordination of Care:d/w rnMonitor and Evaluation:Goal: Meet >75% of estimated needsMonitor fluid/electrolyte balanceMonitor labs, I/Os, vital signs, weightDischarge Nutrition Recommendations:To be determinedPer HPI: Cristina Jeffrey is a 71 year old with a history of COPD, HTN, HLD,and a questionable history of alcohol abuse who presented to [facility] withdyspnea who received a breathing treatment and then became increasinglyaltered. He waas found to be AANDOx1, hypotensive and believed to be inhypovolemic/hemorrhagic shock from a GI bleed. He received 2L NS and 1unit of pRBC. He has no active signs of bleeding, but a recent history ofmelena. s/p egd with multiple ulcers s/p clipping. Recent rebleedingnoted. GI rest and observation for now.?Present Diet Order: NPOEnteral Access: NGNutritional Intake Prior to Admission: unknownGI symptoms: unable to determine at this timeAbdominal Exam: bowel sounds are normalIs the patient having any pain that is interfering with oral/enteralintake? Unable to assessANTHROPOMETRICSHeight: 177.8 cm (5' 10")Admission Weight: 96 kg (211 lb 10.3 oz)Current Weight: 99.8 kg (220 lb 0.3 oz)Body mass index is 31.57 kg/(m2). class 1 obesityWeight changes unknown, but suspected per familyLast Wt06/23/17 : 99.8 kg (220 lb 0.3 oz)[place] Body Weight: 75kgResting Metabolic Rate: 1763Estimated kilocalorie needs: 1800 kilocalories determined by 25 kcal/kgEstimated protein needs: 90 grams determined by 1.2gms/kg [place] weightEstimated fluid needs: 1800 milliliters based on 1 mL per kcalNUTRITION FOCUSED PHYSICAL EXAM:Subcutaneous Fat LossOrbital No fat lossTriceps No fat lossMid-axillary at the iliac crest Unable to determine at this timeMuscle Loss Locations:Temporalis No muscle lossPectoralis No muscle lossDeltoids No muscle lossInterosseous Unable to determine at this timeLatissimus dorsi, trapezius Unable to determine at this timeQuadriceps No muscle lossGastrocnemius No muscle lossPotential micronutrient deficiency revealed in: Unable to determine atthis time with potential d/t ETOH hxEdema: NoAscites: NoAssessment of Functional Status: Unable to assessTemperature Max in 24 hours: Temp (24hrs), Av ?C (98.6 ?F), Min:36.6?C (97.9 ?F), Max:37.6 ?C (99.7 ?F) BP 118/65 Pulse (!) 139 Temp 36.6 ?C (97.9 ?F) Resp 25 Ht 177.8cm (5' 10") Wt 99.8 kg (220 lb 0.3 oz) SpO2 100% BMI 31.57 kg/q3Trqtqw Labs 06/23/1802GLUC -- 123* < > 170*BUN -- 36* < > 94*CREAT -- 0.76 < > 1.45*NA -- 140 < > 140K -- 3.9 < > 4.2CHLOR -- 106 < > 100CO2 -- 32 < > 30ALB -- -- -- 2.3*HB 8.8* 10.4* < > --HCT -- 31.1* < > --WBC -- 15.84* < > --< > = values in this interval not displayed.Potential Signs of Inflammation: leukocytosis, hyperglycemia andhypoalbuminemia (but with active bleeding)Current Facility-Administered Medications:dilTIAZem 100 mg in D5W 100 mL ADD-Arvilla (CARDIZEM) 5 mg/hr INTRAVENOUSCONTINUOUSalbutero l 2.5 mg/0.5 mL 2.5 mg nebulizer solution (PROVENTIL) 2.5 mgINHALATION q 6 H PRNipratropium-albuterol 3 mL nebulizer solution (DUONEB) 3 mL INHALATION QIDdextrose 5% in NaCl 0.45% with 20 mEq/L KCl iv infusion 125 mL/hrINTRAVENOUS CONTINUOUSpotassium chloride 80-120 mEq oral liquid 80-120 mEq ORAL/FEEDING TUBE PRNpotassium chloride iv piggyback 20 mEq in sterile water 100 mL 60-120 mEqINTRAVENOUS PRNmagnesium sulfate in water 2 g in sterile water 50 ml 2 g INTRAVENOUS PRNcalcium gluconate 4 g in NaCl 0.9% 250 mL 4 g INTRAVENOUS PRNpantoprazole 40 mg injection (PROTONIX) 40 mg INTRAVENOUS q 12 HRpropofol infusion (DIPRIVAN) 5-50 mcg/kg/min (Order-Specific) INTRAVENOUSCONTINUOUSChlorhex idine Gluconate 0.12 % 15 mL (PERIDEX) 15 mL ORAL q 12 HIntake/Output 06/21/17 0700 - 06/22/17 0659 06/22/17 0700 - 06/23/17 0659 [id number] - 06/24/17 0659 Intake (ml) 6306.2 1954.1 641 Output (ml) 5280 3895 445 Net (ml) 1026.2 -1940.9 196MNT Billing Type: Initial Assess/15 min 4 unitsSIGNATURE: Nishi Matias, RD PATIENT NAME: Cristina JeffreyDATE: June 23, 2017 : 2:28 PM PAGER: [phone] [facility] OPERATIVE NOon 06-23-2017 OPERATIVE NO HNO ID: [id number] thor: Sagar Cornell MirService: GastroenterologyAuthor Type: PhysicianType: Operative ReportFiled: 2017 11:05 PMNote Text:[facility] - Operative ReportSURGEON: ENRIQUE AlcarazATIENT NAME: TESSIE JEFFREYTMRN: [id number] CSN: [id number] OF SURGERY: 06/23/2017DATE OF : 1945 SEX/AGE: M/71PATIENT TYPE: I HOSP SVC: PULM LOCATION: [id number] OF SURGERY: 06/23/2017SURGEON: ENRIQUE AlcarazROCEDURE PERFORMED: Second-look upper endoscopy with Endoclip placementand epinephrine injection.PREOPERATIVE DIAGNOSIS: Recurrent upper gastrointestinal bleeding afterfirst endoscopic procedure.POSTOPERATIVE DIAGNOSES:1. NG tube induced mucosal tear at the GE junction, without bleeding,partial thickness.2. Multiple ulcers at the distal antrum and pyloric channel withsignificant deformity.3. The previously Endoclipped and epinephrine injected ulcer is notbleeding and visible vessel has resolved.4. Large pyloric channel ulcer with deformity and stenosis withintermittent oozing of blood diffusely without any visible vessel.5. Normal duodenum.INDICATION FOR THE PROCEDURE: This 71-year-old male patient was admittedwith significant and profuse bleeding 2 days ago from booster. Heunderwent upper endoscopy and had Endoclips placed on the visible vesselin an ulcer base at the distal antrum. Multiple other antral ulcers wereseen. A larger ulcer was seen at the pyloric channel with narrowing ofthe pyloric channel. At that time, no further bleeding was noted. Sincethis morning, however, the patient has had more blood coming out of theNG tube. His hemoglobin has dropped from 11-10 grams range.TECHNIQUE: Informed consent was obtained over the phone from thepatient'Ester lepe, witnessed by the RN.The patient was placed in left lateral position in the ICU bed. Propofoldrip was increased until desired level of sedation was achieved.A video endoscope was passed per oral route into the esophagus andadvanced down into the stomach. Large amount of blood was noted in thegastric fundic pool. Blood was also noted at the pre-pyloric area. Thescope needed to be switched to a therapeutic upper endoscope in order tosuction the clots out and be able to clearly see the pyloric and antralarea. The scope was then pulled back and a diagnostic scope inserted andthe scope advanced into the descending duodenum with certain degree ofdifficulty in visualization, but the first and second part of duodenumwere noted to be normal and with no evidence of bleeding. Oozing wasnoted at the pyloric channel ulcer, which is rather deep. Although adefinite visible vessel could not be seen, the edges of the ulcer wereintermittently oozing blood. At this time, 2 Endoclips were placed toapproximate the edges of the bleeding area. 4 mL of 1:10,000 epinephrinewas also injected. The bleeding was temporarily stopped, but could notbe certain that it will stay. The scope was then taken out and thepatient allowed to recover.FINDINGS:1. Mucosal tear at the GE junction secondary to NG tube.2. Large amount of blood in the stomach.3. Multiple ulcers at the antrum and pyloric channel region with markeddeformity and narrowing of the pyloric channel. Previously noted visible vesselhas effectively been sealed with Endoclips and there was no furtherbleeding in that region. Further down in the pyloric channel, there was deformityand deep ulcer and oozing from the surface of the mucosa. The descendingduodenum was normal.RECOMMENDATION:1. To replace the OG tube for suction and lavage.2. To continue on IV Protonix.3. To consider surgical intervention if he drops his blood count again.Sagar Dominguez MDGastroenterologyGM:modlD: 06/23/2017 11:19:40T: 06/23/2017 20:39:22Job #: [id number]:Chitra Del Valle MD [facility] PROGRESSon 06-23-2017 Protein mass conc HNO ID: [id number] thor: Aquiles Harper) IndiaService: Critical CareAuthor Type: PhysicianType: Progress NotesFiled: 06/23/2017 5:14 PMNote Text:[facility] STAFF PHYSICIAN NOTE OF PERSONAL INVOLVEMENT IN CAREI have reviewed the progress note obtained and documented by the residentand I personally participated in the rivera components. I have discussed thecase and management of the patient's care. The following comments reviseor confirm relevant rivera components of the note.IMPRESSION:71 year old male with PMH of HTN, COPD, HLD, ?ETOH use presented withmelena to [facility]. He was transferred to [facility] with:?Hemorrhagic shock AND Acute blood loss anemia 2/2 multiple antral andpyloric ulcers with one visible vessel s/p clipping. Had more than 3Lblood through NGT and received multiple blood products including 13 unitsof pRBC. Now off pressors. This morning noted to have bloody OG secretionswith a Hb drop. Repeat EGD 06/23/2017 showed Intermittently oozing pyloriculcer s/p clippingAcute encephalopathy 2/2 above, now sedatedType 3 respiratory failure 2/2 aboveLeukocytosis, downtrendingAtrial Fibrillation/Flutter in RVR, new onset, On Cardizem dripAKI, likely prerenal, improvedLactic acidosis, HAGMAPLAN:Continue mechanical ventilation, goal is comfort. Sedate to a target RAASof -1Check Hb Q6 hour, continue Protonix dripIR consult for embolizationKeep NPO, D51/2NS with KNebsICU PPxThis patient has a high probability of sudden, clinically significantdeterioration, which requires the highest level of physician preparednessto intervene urgently. I managed/supervised life or organ supportinginterventions that required frequent physician assessment. I devoted myfull attention to the direct care of this patient for the amount of timeindicated below. Time I spent with family or surrogate(s) is includedonly if the patient was incapable of providing the necessary informationor participating in medical decision making. Time devoted to teaching andto any procedures I billed separately is not included.Critical Care Documentation: The patient has the following organ/systemimpairment(s): Acute blood loss, Arrhythmias, Complex life-threateningmedical problem(s) and Respiratory failure (Acute)Time spent providing critical care services: 35 minutes.SIGNATURE: MAICO RossDATE of SERVICE: 06/23/2017TIME of SERVICE: 12:08 PM [facility] Protein mass conc HNO ID: [id number] thor: Sagar Valenciaervice: GastroenterologyAuthor Type: PhysicianType: Progress NotesFiled: 06/23/2017 11:21 AMNote Text:BRIEF OPERATIVE / PROCEDURE NOTELOG ID: [id number]/PROCEDURE DATE: 06/23/2017SURGEON(S)/PROCEDURAL IST(S) AND CONFIGURATION MANAGEMENT CONSULTANT(S): Sagar Dominguez - PrimaryendoscopistINDICATION: Recurrence of UGI bleedingPRE-OP/PRE-PROCEDURE DIAGNOSIS: Bleeding GUPOST-OP/POST-PROCEDURE DIAGNOSIS: samePROCEDURE(S): upper endoscopyANESTHESIA: Conscious SedationFINDINGS: 1. NG trauma induced mucosal tear 2. Multiple antral ulcers 3.Previously noted and treated distal antral ulcer with 2 clips not bleeding4. Intermittently oozing large deep ulcer at th pyloric channel withstrictured lumen- [address] and 4 ml of 1:10,000 epinephrineinjected with partial success5. Normal duodenumESTIMATED BLOOD LOSS: 100 mlSPECIMENS: noneCOMPLICATIONS: NonePOST-PROCEDURE RECOMMENDATIONS/FOLLOW UP: May consider surgicalintervention if bleeding continues 2. Transfuse to maintain Hgb > 8 gm D #[id number]: Sagar Dominguez MD PATIENT NAME: Cristina JeffreyDATE: 06/23/2017 : normal [facility] Protein mass conc HNO ID: [id number] thor: Douglas (Adelina) Dirvice: Critical CareAuthor Type: ResidentType: Progress NotesFiled: 06/23/2017 2:42 PMNote Text: At testation signed by Aquiles Osborne at 06/23/2017 5:17 [facility] STAFF PHYSICIAN NOTE OF PERSONAL INVOLVEMENT IN CAREI have reviewed the progress note obtained and documented by the resident and Ipersonally participated in the rivera components. I have discussed the case andmanagement of the patient's care. Please refer to my note from 06/23/2017 for myassessment and plan.SIGNATURE: Aquiles Osborne, [facility] --[facility] - PROGRESS NOTESERVICE DATE: 06/23/2017SERVICE TIME: 8:22 AMAdmission Date: 06/21/2017AGE: 71 year oldLOS: 0 daysSubjectiveREASON FOR ICU ADMISSION: GI BleedingObjective- s/p egd which- 1600 ml dark blood from the og tube this am- developed atrial flutter during scope today- got a repeat scope today which showed previously noted and treateddistal antral ulcer with 2 clips not bleeding- intermittently oozing large deep ulcer at the pyloric channel withstrictured lumen- [address] and 4 ml of 1:10,000 epinephrineinjected with partial successPROBLEMS: ACTIVE PROBLEM LISTShock (Hcc)Copd (Chronic Obstructive Pulmonary Disease) (Hcc)HypertensionAtrial Fibrillation (Hcc)HyperlipidemiaNo past medical history on file.No past surgical history on file.Social History Marital status: Spouse name: Years of education: Number of children:Social History Main TopicsVITAL SIGNS (last 24hrs min/max):Temp Av.3 ?C (99.1 ?F) Min: 36.8 ?C (98.2 ?F) Max: 37.6 ?C (99.7?F)Pulse Av Min: 75 Max: 89Arterial BP 1 Min: 100/48 Max: 162/75Cuff BP Min: 98/58 Max: 152/79Pain Score: 0/10Vital signs reviewed.BP 112/61 Pulse 81 Temp (Src) 98.2 (Axillary) Resp 26 Ht 5' 10"(1.78m) Wt 220 lb 0.3 oz (99.8kg) SpO2 100% BMI 31.57 kg/(m2).Temp (24hrs), Av.3 ?C (99.1 ?F), Min:36.8 ?C (98.2 ?F), Max:37.6 ?C(99.7 ?F)NET FLUID BALANCEIntake/Output Summary (Last 24 hours) at 06/23/17 0822Last data filed at 06/23/17 0738 Gross per 24 hourIntake 1943.9 mlOutput 3485 mlNet -1541.1 mlMEDICATIONSCurrent Facility-Administered Medications:dextrose 5% in NaCl 0.45% with 20 mEq/L KCl iv infusion 125 mL/hrINTRAVENOUS CONTINUOUSpotassium chloride 80-120 mEq oral liquid 80-120 mEq ORAL/FEEDING TUBE PRNpotassium chloride iv piggyback 20 mEq in sterile water 100 mL 60-120 mEqINTRAVENOUS PRNmagnesium sulfate in water 2 g in sterile water 50 ml 2 g INTRAVENOUS PRNcalcium gluconate 4 g in NaCl 0.9% 250 mL 4 g INTRAVENOUS PRNpantoprazole 40 mg injection (PROTONIX) 40 mg INTRAVENOUS q 12 HRpropofol infusion (DIPRIVAN) 5-50 mcg/kg/min (Order-Specific) INTRAVENOUSCONTINUOUSChlorhex idine Gluconate 0.12 % 15 mL (PERIDEX) 15 mL ORAL q 12 HLines, Drains, and Airways Line Arterial Line 06/21/17 1708 Arterial Line Left Radial 1 day Introducer 06/21/17 1645 Right Neck 1 day Peripheral 06/21/17 213 Assessment Left Antecubital 20 Gauge 1 day Peripheral 06/21/17 2140 Assessment Right Antecubital 20 Gauge 1 day Drain GI Feed/Drain 06/21/17 2000 Oral Gastric Midline 16 Fr 1 day Indwelling Urinary Catheter 06/21/17 1500 Assessment Miranda 16 Fr 1 day Airway Airway Endotracheal Tube 06/21/17 1545 1 dayPHYSICAL EXAM PERFORMED:General:intubated,s edatedCardiovascular: Regular rhythm, tachycardicRespiratory: Clear to auscultationAbdomen: Soft and NontenderExtremities: Edema- NoNeurologic: SedatedRespiratory/Nursing Documentation:O2 Therapy: Ventilator (06/23/17712)Invasive Ventilator Mode: Pressure Regulated Volume Control ()Set Ventilator Respiratory Rate (BPM): 16 (06/23/17712)Total Respiratory Rate (BPM): 25 (06/23/17712)Tidal Volume Set (mL): 400 (06/23/17712)Exhaled Tidal Volume (mL): 349 (06/23/17256)Minute Volume (L): 9.9 (06/23/17712)Peak Inspiratory Pressure (cm H2O): 19 (06/23/17712)PEEP/CPAP (cm H2O): 5 (06/23/17712)HEMODYNAMIC DATA: ReviewedNUTRITION:Enteral Feeds: NoNPODATA: Diagnostic tests reviewed for today's visit, films/specimens werepersonally reviewed by me:Most recent labs and imaging results.LABS:Recent Labs 06/21/1819WBC 15.84* < > -- --RBC 3.43* < > -- --HB 10.4* < > 12.6* --HCT 31.1* < > -- --MCV 90.7 < > -- --PLT 138* < > -- --GLUC 123* < > -- 170*BUN 36* < > -- 94*CREAT 0.76 < > -- 1.45*NA 140 < > -- 140K 3.9 < > -- 4.2CHLOR 106 < > -- 100CO2 32 < > -- 30TPROT -- -- -- 4.6*ALB -- -- -- 2.3*CA 7.6* < > -- 7.1*ALKPHOS -- -- -- 41*TBILI -- -- -- 1.1*AST -- -- -- 34ALT -- -- -- 44PTSEC -- -- 11.3 --INR -- -- 1.08 --< > = values in this interval not displayed.ABG:Recent Labs 06/21/998836ZI 7.336*PO2 291.5*PCO2 54.7*Assessment/PlanIMPRESSIO N:Critical Care Documentation: The patient has the following organ/systemimpairment(s): Acute blood loss1.1.Acute blood loss anemia 2/2 UGIB 2/2 multiple antral and pyloriculcers s/p clips2. Hemorrhagic shock3. Acute hypoxic respiratory failure4. Atrial Flutter, 2:1 Block new onset5. Lactic acidosis, HAGMAMMPCRITICAL CARE PLAN:- s/p upper gi endoscopy s/p clips- consulted IR for possible embolization since intermittently oozing largedeep ulcer.- continue mechanical ventilation- on cardizem gtt for atrial flutter ; target hr <110- hgb i2zyFnbe patient has a high probability of sudden, clinically significantdeterioration, which requires the highest level of physician preparednessto intervene urgently. I managed/supervised life or organ supportinginterventions that required frequent physician assessment. I devoted myfull attention to the direct care of this patient for the amount of timeindicated below. Time I spent with family or surrogate(s) is includedonly if the patient was incapable of providing the necessary informationor participating in medical decision making. Time devoted to teaching isnot included.Discussed with staff/patient/familyTime spent providing critical care services: 30 minutes excludingprocedures.SIGNATURE : Douglas Scott MD PATIENT NAME: Cristina JeffreyDATE: June 23, 2017 : 8:22 AM [facility] Protein mass conc HNO ID: [id number] thor: Pierce (Rosario Navarreteervice: General SurgeryAuthor Type: ResidentType: Progress NotesFiled: 06/23/2017 7:09 AMNote Text:Trauma Surgery Progress NoteSERVICE DATE: 06/23/2017SUBJECTIVE:Pt now with increasing bloody output from NGT.Tolerating dietOBJECTIVE:Vitals:Temp (24hrs), Av.3 ?C (99.1 ?F), Min:36.9 ?C (98.4 ?F), Max:37.6 ?C(99.7 ?F)BP 112/61 Pulse 82 Temp 36.9 ?C (98.4 ?F) Resp 25 Ht 177.8 cm (5'10") Wt 99.8 kg (220 lb 0.3 oz) SpO2 97% BMI 31.57 kg/m2O2 Therapy: VentilatorIANDO:Date 06/22/17699 - 06/23/1759 06/23/17699 - 06/24/17 0659Shift 6894-3693 5504-4499 7594-9274 24 Hour Total 5569-4640 [id number] 24 Hour TotalINTAKE IV 247.3 471.8 1235 1954.1 D5 0.45%NS w/20KCL 408 1121 1529 Potassium IVPB 100 100 Fentanyl Volume 4.7 4.7 Octreotide IV 79.2 79.2 Propofol IV 63.4 63.8 114 241.2 Shift Total 247.3 471.8 1235 1954.1OUTPUT Urine 1020 641 566 6060 Tube Output ( Indwelling Urinary Catheter 06/21/17 1500 AssessmentFoley 16 Fr) 1020 837 490 5763 Tubes 390 93 2017 1625 Output (GI Feed/Drain 06/21/17 2000 Oral Gastric Midline 16 Fr) 550 547483 8712 # of BMs Number of BMs 0 x 0 x 0 x Shift Total 5678 770 5775 3895Weight (kg) 101.1 101.1 99.8 99.8 99.8 99.8 99.8 99.8MEDICATIONSCurrent Facility-Administered Medications:dextrose 5% in NaCl 0.45% with 20 mEq/L KCl iv infusion 125 mL/hrINTRAVENOUS CONTINUOUSpotassium chloride 80-120 mEq oral liquid 80-120 mEq ORAL/FEEDING TUBE PRNpotassium chloride iv piggyback 20 mEq in sterile water 100 mL 60-120 mEqINTRAVENOUS PRNmagnesium sulfate in water 2 g in sterile water 50 ml 2 g INTRAVENOUS PRNcalcium gluconate 4 g in NaCl 0.9% 250 mL 4 g INTRAVENOUS PRNpantoprazole 40 mg injection (PROTONIX) 40 mg INTRAVENOUS q 12 HRpropofol infusion (DIPRIVAN) 5-50 mcg/kg/min (Order-Specific) INTRAVENOUSCONTINUOUSChlorhex idine Gluconate 0.12 % 15 mL (PERIDEX) 15 mL ORAL q 12 HLabs:Recent Labs 06/22/1820NA 140 -- -- 140 -- 140 < > --K 3.9 -- -- 3.4* -- 4.2 < > --CHLOR 106 -- -- 100 -- 100 < > --CO2 32 -- -- 37* -- 30 < > --BUN 36* -- -- 81* -- 94* < > --CREAT 0.76 -- -- 1.30* -- 1.45* < > --GLUC 123* -- -- 115* -- 170* < > --ANION 6* -- -- 6* -- 14 < > --CA 7.6* -- -- 7.7* -- 7.1* < > --ALB -- -- -- -- -- 2.3* -- --AST -- -- -- -- -- 34 -- --ALT -- -- -- -- -- 44 -- --ALKPHOS -- -- -- -- -- 41* -- --TBILI -- -- -- -- -- 1.1* -- --WBC 15.84* -- -- 18.72* -- -- -- 27.76*HB 10.4* 11.4* < > 12.2* 12.6* -- -- 7.7*HCT 31.1* -- -- 34.5* -- -- -- 22.4*PLT 138* -- -- 138* -- -- -- 233LACT -- -- -- -- -- -- -- 4.5*INR -- -- -- -- 1.08 -- -- 1.15PH -- -- -- -- -- 7.336* -- --PCO2 -- -- -- -- -- 54.7* -- --PO2 -- -- -- -- -- 291.5* -- --BE -- -- -- -- -- 1.9 -- --< > = values in this interval not displayed.Exam:GENERAL: No distress, intubated/sedatedNEURO: intubated/sedatedHEENT: normocephalic, atraumaticLUNGS: Unlabored breathingCARDIAC: Regular rate and rhythm as aboveABDOMEN: Soft, non-distended. NGT w/ coffee-ground outputEXTREMITIES: JERONIMO, No deformities, No edemaSKIN: Skin color, texture, turgor normal, No rashes or lesionsASSESSMENT AND PLAN:71 year old male w/ UGI bleed- recommend GI reevaluation for potential rescope given continued outputfrom NGT- will continue to follow- mgmt per primary teamPierce Montiel MDGeneral Surgery Chief ResidentPromedica Fostoria Community [facility] 2017 7:09 [facility] #: Pager: [phone] [facility] ALLIED HEALTHon 06-22-2017 ALLIED HEALTH HNO ID: [id number] thor: Christina Steele (Chaplain): Spiritual CareAuthospenser Type: ChaplainType: Allied HealthFiled: 06/22/2017 7:53 PMNote Text: SPIRITUALCARESpiritual Care Visit- Brief NoteName: Cristina JeffreyMRN: [id number]: June 22, 2017Notes: Follow up requested by previous appliance service representative. Patient semi-conscious;offered prayer for patient. Chaplain Signature: Consuelo Steele contact the Spiritual Care Department:Please call [phone] or Page the On-Call Hydraulic Rockbreaker Operator at pager [phone] you for the opportunity to be of service.This is an electronically created document.IF PRINTED, PLEASE DO NOT REMOVE FROM THE CHART OR MODIFY PRINTED COPY. [facility] ALLIED HEALTH HNO ID: [id number] thor: Leila (Hydraulic Rockbreaker Operator) Mckeon, ChaplainService: Spiritual CareAuthor Type: ChaplainType: Allied HealthFiled: 06/22/2017 12:56 PMNote Text: SPIRITUALCARESpiritual Care Visit- Brief NoteName: Cristina JeffreyMRN: [id number]: June 22, 2017Notes: Follow up visit (requested by previous appliance service representative) attempted--pt busyw/staff. Silent prayer outside rm Chaplain Signature: Consuelo Pantoja contact the Spiritual Care Department:Please call [phone] or Page the On-Call Hydraulic Rockbreaker Operator at pager [phone] you for the opportunity to be of service.This is an electronically created document.IF PRINTED, PLEASE DO NOT REMOVE FROM THE CHART OR MODIFY PRINTED COPY. [facility] Basic Panelon 06-22-2017 Creatinine 1.30 mg/dL High 0.67-1.[address] [facility] Comment on above: Performed By: #### P PHRS ####[address] [address] Glucose mass conc 115 mg/dL High 70-[address] [facility] Comment on above: Performed By: #### P PHRS ####[address] [address] Urea nitrogen 81 mg/dL High 7-[address] [facility] Comment on above: Performed By: #### P PHRS ####[address] [address] Anion gap 6 mmol/L Low 8-[address] [facility] Comment on above: Performed By: #### P PHRS ####[address] [address] Calcium 7.7 mg/dL Low 8.5-10.[address] [facility] Comment on above: Performed By: #### P PHRS ####[place] [address] CO2 37 mmol/L High 21-[address] [facility] Comment on above: Performed By: #### P PHRS ####[facility] [place] [address] Chloride 100 mmol/L Normal 98-[address] [facility] Comment on above: Performed By: #### P PHRS ####[facility] [place] [address] Potassium molar conc 3.4 mmol/L Low 3.5-5.1 [facility] Comment on above: Performed By: #### P PHRS ####[facility] [place] [address] Sodium 140 mmol/L Normal 136-[address] [facility] Comment on above: Performed By: #### P PHRS ####[place] [address] Cult Bloodon 06-22-2017 Cult Blood Test performed at [facility] No growth Normal [facility] Comment on above: Performed By: #### L AC ####[place] [address] Hemogramon 06-22-2017 Erythrocyte distribution width Auto Ratio (RBC) 15.8 % High 11.6-14.[address] [facility] Comment on above: Performed By: #### P PHRS ####[place] [address] Erythrocytes (RBC) 4.04 mil/cmm Low 4.63-6.08 [facility] Comment on above: Performed By: #### P PHRS ####[place] [address] Hematocrit (HCT) 34.5 % Low 40.1-51.[address] [facility] Comment on above: Performed By: #### P PHRS ####[place] [address] Hemoglobin mass conc (Bld) 12.2 g/dL Low 13.7-17.[address] [facility] Comment on above: Performed By: #### P PHRS ####[place] [address] MCH 30.2 pg Normal 25.7-32.[address] [facility] Comment on above: Performed By: #### P PHRS ####[facility] [place] [address] MCHC mass conc (RBC) 35.4 % Normal 32.3-36.5 [facility] Comment on above: Performed By: #### P PHRS ####[place] [address] MCV 85.4 fL Normal 83.2-95.[address] [facility] Comment on above: Performed By: #### P PHRS ####[place] [address] Nucleated erythrocytes 0.11 thou/cmm High 0.00-0.[address] [facility] Comment on above: Performed By: #### P PHRS ####[place] [address] Nucleated RBC % 0.6 % High 0.0-0.[address] [facility] Comment on above: Performed By: #### P PHRS ####[place] [address] Platelet mean volume (PMV) 9.6 fL Normal 8.7-12.[address] [facility] Comment on above: Performed By: #### P PHRS ####[place] [address] Platelets 138 thou/cmm Low 141-[address] [facility] Comment on above: Performed By: #### P PHRS ####[place] [address] RDW SD 48.0 fl High 36.1-45.[address] [facility] Comment on above: Performed By: #### P PHRS ####[place] [address] WBC (Leukocytes) 18.72 thou/cmm High 4.23-9.07 [facility] Comment on above: Performed By: #### P PHRS ####[place] [address] Hgbon 06-22-2017 Hemoglobin mass conc (Bld) 11.4 g/dL Low 13.7-17.[address] [facility] Comment on above: Performed By: #### P PHRS ####[place] [id number] Hemoglobin mass conc (Bld) 11.9 g/dL Low 13.7-17.[address] [facility] Comment on above: Performed By: #### P PHRS ####[facility] [place], [place] [address] Hemoglobin mass conc (Bld) 12.1 g/dL Low 13.7-17.[address] [facility] Comment on above: Performed By: #### P PHRS ####[place] [id number] MDRD GFRon 06-22-2017 eGFR (non-black) 54.26 mL/min/{1.73_m2} Normal > 60mL/min/ 1.73m2 [facility] Comment on above: Result Comment: If t he patient is , multiply the result by 1.210. Performed By: #### P PHRS ####[place] [id number] NURSING PROGon 06-22-2017 Protein mass conc HNO ID: [id number] thor: Samantha (Rn) KELLY Dickervice: (none)Author Type: Registered NurseType: Nursing Progress NoteFiled: 06/22/2017 7:41 PMNote Text: Nursing Progress: Topic: RESTRAINT NON-VIOLENTPATIENT NAME: Cristina JeffreyMRN: [id number] LOCATION: [place] [address] [address]*The patient demonstrates Inability to be Redirected, Inability to RetainInformation Regarding Safety Directions as evidenced by the followingbehaviors intubated, attempting to reach for OETT with BUE which pose animminent danger to self or others.The following interventions were attempted but were not effective inprotecting the patient's safety: Alarms, Bed in Low/Locked Position, CallLight Within Reach, IV/Feeding Bag/Pump Out of Vision, MedicationsReviewed, Modify Environment, Modify EquipmentNext, a comprehensive assessment was performed and warranted placing thepatient in Soft Bilateral Wrists, the least restrictive restraint neededto protect the patient's safety.Ongoing safety assessments and evaluation for earliest removal ofrestraints will be performed.DATE: June 22, 2017TIME: 7:41 Dov Dick RN Normal [facility] Protein mass conc HNO ID: [id number] thor: Claribel (Rn) Safia, KELLYervice: NursingAuthor Type: Registered NurseType: Nursing Progress NoteFiled: 06/22/2017 3:40 PMNote Text:Nursing Progress: Topic: RESTRAINT NON-VIOLENTPATIENT NAME: Cristina JeffreyMRN: [id number] LOCATION: [place] [address]/[id number] patient demonstrates Inability to Retain Information Regarding SafetyDirections as evidenced by the following behaviors pulling at endotrachealtube which pose an imminent danger to self or others.The following interventions were attempted but were not effective inprotecting the patient's safety: Alarms, Bed in Low/Locked Position, CallLight Within Reach, Pain/Discomfort Relief, Partial Bedrails UpNext, a comprehensive assessment was performed and warranted placing thepatient in Soft Bilateral Wrists, the least restrictive restraint neededto protect the patient's safety.Ongoing safety assessments and evaluation for earliest removal ofrestraints will be performed.DATE: June 22, 2017TIME: 3:38 Leslie Baig RN Nursing Progress: Topic: RESTRAINT NON-VIOLENTPATIENT NAME: Cristina JeffreyMRN: [id number] LOCATION: [place] [address] [address]*The patient demonstrates Inability to Retain Information Regarding SafetyDirections as evidenced by the following behaviors pull at endotrachealtube which pose an imminent danger to self or others.The following interventions were attempted but were not effective inprotecting the patient's safety: Alarms, Bed in Low/Locked Position, CallLight Within Reach, Pain/Discomfort Relief, Partial Bedrails UpNext, a comprehensive assessment was performed and warranted placing thepatient in Soft Bilateral Wrists, the least restrictive restraint neededto protect the patient's safety.Ongoing safety assessments and evaluation for earliest removal ofrestraints will be performed.DATE: June 22, 2017TIME: 3:40 Leslie Baig RN [facility] PROGRESSon 06-22-2017 Protein mass conc HNO ID: [id number] thor: Bashir Darden (Pharmacist)Service: PharmacyAuthor Type: PharmacistType: Progress NotesFiled: 06/22/2017 4:09 PMNote Text:MEDICATION HISTORYPatient Name:Salvador JeffreyMRN: [id number]: 1945Source of history:[facility]herence Identified: No barriers notedThe above information represents the best possible medication history: YesAdditional comments: Confirmed prednisone dose previously entered atapring dose, NOT on chronic steroidsAllergies: ALLERGIESNo Known AllergiesPreferred Pharmacy[facility] Medications:Prior to Admission medications as of 06/22/17 1607Medication Sig Last Dose Takingcarvedilol (COREG) 12.5 mg tablet Take 12.5 mg by mouth twice daily withmeals. YesVit A,C,Z-Rhkk-Phepbb (PRESERVISION AREDS) [phone] llzw-ru-wqchxzm Take 1 capsule by mouth twice daily. Yesalbuterol (PROVENTIL) 2.5 mg /3 mL (0.083 %) nebulizer solution Use 2.5 mgvia nebulizer every 4 hours as needed for Wheezing/Shortness of Breath.Yeslisinopril (ZESTRIL, PRINIVIL) 20 mg tablet Take 20 mg by mouth oncedaily. Yespravastatin (PRAVACHOL) 40 mg tablet Take 40 mg by mouth once daily. Yesaspirin 81 mg chewable tablet Take 81 mg by mouth once daily. Yesbudesonide-formoterol (SYMBICORT) 160-4.5 mcg/actuation inhaler Inhale 1Puff as instructed twice daily. Yesranitidine (ZANTAC) 150 mg tablet Take 150 mg by mouth twice daily. YesguaiFENesin (MUCINEX) 600 mg 12 hr tablet Take 1,200 mg by mouth twicedaily. YespredniSONE (DELTASONE) 10 mg tablet Take 10 mg by mouth as directed. 12day tapering dose filled 06/12/17 Yesfurosemide (LASIX) 40 mg tablet Take 40 mg by mouth twice daily. [facility] 4:08 PM [facility] Protein mass conc HNO ID: [id number] Author: Katy SpearMac Velazquez RN Service: (none) Author Type: Registered Nurse Type: Progress Notes Filed: 06/22/2017 3:43 PM Note Text: LATE ENTRY: No moderate sedation given during EGD on 05/26/17 d/t pt sedated on Diprivan gtt. Normal [facility] Protein mass conc HNO ID: [id number] thor: Aquiles Harper) Omivice: Critical CareAuthor Type: PhysicianType: Progress NotesFiled: 06/22/2017 11:27 AMNote Text:[facility] ST[facility]FF PHYSICIAN NOTE OF PERSONAL INVOLVEMENT IN CAREI have reviewed the progress note obtained and documented by the residentand I personally participated in the rivera components. I have discussed thecase and management of the patient's care. The following comments reviseor confirm relevant rivera components of the note.IMPRESSION:71 year old male with PMH of HTN, COPD, HLD, ?ETOH use presented withmelena to [facility]. He was transferred to [facility] with:Hemorrhagic shock AND Acute blood loss anemia 2/2 multiple antral andpyloric ulcers with one visible vessel s/p clipping but await officialreport. Had more than 3L blood through NGT and received multiple bloodproducts including 13 units of pRBC. Now off pressorsAcute encephalopathy 2/2 above, now sedatedType 3 respiratory failure 2/2 aboveLeukocytosis, downtrendingAtrial Fibrillation, new onset, now back in sinusAKI, likely prerenal, improvingLactic acidosis, HAGMAHypokalemiaPLAN:SAT and SBT this AM. If remains intubated would target RAAS of -1Check Hb, continue Protonix drip. D/c Octreotide, ABxKeep NPO, D51/2NS with KICU PPxThis patient has a high probability of sudden, clinically significantdeterioration, which requires the highest level of physician preparednessto intervene urgently. I managed/supervised life or organ supportinginterventions that required frequent physician assessment. I devoted myfull attention to the direct care of this patient for the amount of timeindicated below. Time I spent with family or surrogate(s) is includedonly if the patient was incapable of providing the necessary informationor participating in medical decision making. Time devoted to teaching andto any procedures I billed separately is not included.Critical Care Documentation: The patient has the following organ/systemimpairment(s): Acute blood loss and Respiratory failure (Acute)Time spent providing critical care services: 35 minutes.SIGNATURE: [facility] INSTITUTEDATE of SERVICE: 06/22/2017TIME of SERVICE: 9:12 AM Normal [facility] Protein mass conc HNO ID: [id number] thor: Douglas (Adelina) ThakurService: Critical CareAuthor Type: ResidentType: Progress NotesFiled: 06/22/2017 2:21 PMNote Text: At testation signed by Aquiles Osborne at 06/23/2017 1:38 [facility] STAFF PHYSICIAN NOTE OF PERSONAL INVOLVEMENT IN CAREI have reviewed the progress note obtained and documented by the resident and Ipersonally participated in the rivera components. I have discussed the case andmanagement of the patient's care. Please refer to my note from 06/23/2017 for myassessment and plan.SIGNATURE: [facility] --[facility] - PROGRESS NOTESERVICE DATE: 06/22/2017SERVICE TIME: 8:17 AMAdmission Date: 06/21/2017AGE: 71 year oldLOS: 0 daysSubjectiveREASON FOR ICU ADMISSION: upper gi bleedObjectivePROBLEMS: ACTIVE PROBLEM LISTShock (Hcc)Copd (Chronic Obstructive Pulmonary Disease) (Hcc)HypertensionAtrial Fibrillation (Hcc)HyperlipidemiaNo past medical history on file.No past surgical history on file.Social History Marital status: Spouse name: Years of education: Number of children:Social History Main TopicsVITAL SIGNS (last 24hrs min/max):Temp Av.7 ?C (96.2 ?F) Min: 34 ?C (93.2 ?F) Max: 37 ?C (98.6 ?F)Pulse Av.3 Min: 74 Max: 117Arterial BP 1 Min: 67/47 Max: 171/106Cuff BP Min: 74/28 Max: 169/120Pain Score: 0/10Vital signs reviewed.BP 114/62 Pulse 82 Temp (Src) 98.6 (Axillary) Resp 22 Ht 5' 10"(1.78m) Wt 222 lb 14.2 oz (101.1kg) SpO2 99% BMI 31.98 kg/(m2).Temp (24hrs), Av.7 ?C (96.2 ?F), Min:34 ?C (93.2 ?F), Max:37 ?C (98.6?F)NET FLUID BALANCEIntake/Output Summary (Last 24 hours) at 06/22/17 0817Last data filed at 06/22/17 0700 Gross per 24 hourIntake 6406.2 mlOutput 5280 mlNet 1126.2 mlMEDICATIONSCurrent Facility-Administered Medications:potassium chloride 80-120 mEq oral liquid 80-120 mEq ORAL/FEEDING TUBE PRNpotassium chloride iv piggyback 20 mEq in sterile water 100 mL 60-120 mEqINTRAVENOUS PRNmagnesium sulfate in water 2 g in sterile water 50 ml 2 g INTRAVENOUS PRNsodium phosphate 45 mmol in NaCl 0.9% 250 mL 45 mmol INTRAVENOUS PRNcalcium gluconate 4 g in NaCl 0.9% 250 mL 4 g INTRAVENOUS PRNpantoprazole 40 mg injection (PROTONIX) 40 mg INTRAVENOUS q 12 HRoctreotide 500 mcg in D5W 100 mL (SandoSTATIN) 50 mcg/hr INTRAVENOUSCONTINUOUSNORepine phrine 16 mg in D5W 250 mL (LEVOPHED) 0.6-50 mcg/min INTRAVENOUSCONTINUOUSfentaNYL iv infusion 20 mcg/mL in NaCl 0.9% 100 mL 25 mcg/hr INTRAVENOUSCONTINUOUSpropofol infusion (DIPRIVAN) 5-50 mcg/kg/min (Order-Specific) INTRAVENOUSCONTINUOUSChlorhex idine Gluconate 0.12 % 15 mL (PERIDEX) 15 mL ORAL q 12 Hpiperacillin-tazobactam 3.375 g in dextrose (iso-osmotic) 50 mL (ZOSYN)3.375 g INTRAVENOUS q 6 HLines, Drains, and Airways Line Arterial Line 06/21/17 1708 Arterial Line Left Radial less than 1 day Introducer 06/21/17 1645 Right Neck less than 1 day Peripheral 06/21/17 2139 Assessment Left Antecubital 20 Gauge less than 1day Peripheral 06/21/17 2140 Assessment Right Antecubital 20 Gauge less than1 day Drain GI Feed/Drain 06/21/17 2000 Oral Gastric Midline 16 Fr less than 1 day Indwelling Urinary Catheter 06/21/17 1500 Assessment Miranda 16 Fr lessthan 1 day Airway Airway Endotracheal Tube 06/21/17 1545 less than 1 dayPHYSICAL EXAM PERFORMED:General:Cardiovascu lar: Regular rhythmRespiratory: Reduced breath sounds bilatAbdomen: Soft, distended; non tenderExtremities: Edema- NoNeurologic: SedatedRespiratory/Nursing Documentation:O2 Therapy: Ventilator (06/22/17 0800)Invasive Ventilator Mode: Pressure Regulated Volume Control ()Set Ventilator Respiratory Rate (BPM): 16 (06/22/17717)Total Respiratory Rate (BPM): 18 (06/22/17717)Tidal Volume Set (mL): 400 (06/22/17717)Exhaled Tidal Volume (mL): 411 (06/22/17 0013)Minute Volume (L): 7.2 (06/22/17717)Peak Inspiratory Pressure (cm H2O): 18 (06/22/17717)PEEP/CPAP (cm H2O): 5 (06/22/17717)HEMODYNAMIC DATA: ReviewedNUTRITION:Enteral Feeds: NoNPODATA: Diagnostic tests reviewed for today's visit, films/specimens werepersonally reviewed by me:Most recent labs and imaging results.LABS:Recent Labs 06/21/1819WBC 18.72* -- --RBC 4.04* -- --HB 12.2* 12.6* --HCT 34.5* -- --MCV 85.4 -- --PLT 138* -- --GLUC 115* -- 170*BUN 81* -- 94*CREAT 1.30* -- 1.45*NA 140 -- 140K 3.4* -- 4.2CHLOR 100 -- 100CO2 37* -- 30TPROT -- -- 4.6*ALB -- -- 2.3*CA 7.7* -- 7.1*ALKPHOS -- -- 41*TBILI -- -- 1.1*AST -- -- 34ALT -- -- 44PTSEC -- 11.3 --INR -- 1.08 --ABG:Recent Labs 800PH 7.336*PO2 291.5*PCO2 54.7*Assessment/PlanIMPRESSIO N:71 year old male with PMH of HTN, COPD, HLD, ?ETOH use presented withmelena to [facility]. He was transferred to [facility] with Hemorrhagicshock AND Acute blood loss anemia 2/2 UGIB. Found to have multiple antraland pyloric ulcers including one with a visible vessel on EGD. Acuteencephalopathy 2/2 above.Type 3 respiratory failure 2/2 aboveLeukocytosisAtrial Fibrillation, new onsetLactic acidosis, HAGMA?Critical Care Documentation: The patient has the following organ/systemimpairment(s): Acute blood loss1.Acute blood loss anemia 2/2 UGIB 2/2 multiple antral and pyloric ulcers2. Hemorrhagic shock3. Acute hypoxic respiratory failure4. Atrial Fibrillation, new onset5. Lactic acidosis, HAGMAMMPCRITICAL CARE PLAN:- c/w iv protonox- d/c octreotide- plan to do sbt today- iv fluidsThis patient has a high probability of sudden, clinically significantdeterioration, which requires the highest level of physician preparednessto intervene urgently. I managed/supervised life or organ supportinginterventions that required frequent physician assessment. I devoted myfull attention to the direct care of this patient for the amount of timeindicated below. Time I spent with family or surrogate(s) is includedonly if the patient was incapable of providing the necessary informationor participating in medical decision making. Time devoted to teaching isnot included.Discussed with staff/patient/familyTime spent providing critical care services: 30 minutes excludingprocedures.SIGNATURE : Douglas Scott MD PATIENT NAME: Cristina JeffreyDATE: June 22, 2017 : 8:17 AM Normal [facility] Protein mass conc HNO ID: [id number] thor: Kian Persaudervice: General SurgeryAuthor Type: PhysicianType: Progress NotesFiled: 07/16/2017 7:22 PMNote Text:Trauma Surgery Progress NoteSERVICE DATE: 06/22/2017SUBJECTIVE:No overnight events. BP stable. NGT w/ coffee-ground output. Weaningsedation.Tolerating dietOBJECTIVE:Vitals:Temp (24hrs), Av.6 ?C (96.1 ?F), Min:34 ?C (93.2 ?F), Max:36.8 ?C(98.2 ?F)BP 92/55 Pulse 79 Temp 36.5 ?C (97.7 ?F) Resp 20 Ht 177.8 cm (5'10") Wt 101.1 kg (222 lb 14.2 oz) SpO2 98% BMI 31.98 kg/m2O2 Therapy: VentilatorIANDO:Date 06/21/17699 - 06/22/17 0659 06/22/17 07 - 06/23/17 0659Shift 0267-8942 2664-3944 6443-1741 24 Hour Total 1504-5802 [id number] 24 Hour TotalINTAKE IV 1218.7 939.5 2158.2 NS 0.9% 4417 089 1991 Zosyn IV 50 50 100 Potassium IVPB 200 200 Fentanyl Volume 5.6 8.8 14.4 NORepinephrine Volume 42 42 Octreotide IV 62.3 73.2 135.5 Propofol IV 58.8 107.5 166.3 Blood Products 4148 4148 PRBC Intake (mL) 2400 2400 Platelet mL 200 200 FFP mL 1541 1541 Packed Red Blood Cells Number of Units 1 1 Platelets Number of Units 1 1 Fresh Frozen Plasma Number of Units 5 5 Other Amount Wasted PRBC 0 mL 0 mL Shift Total 5366.7 939.5 6306.2OUTPUT Urine 1899 533 6357 Tube Output ( Indwelling Urinary Catheter 06/21/17 1500 AssessmentFoley 16 Fr) 9317 380 4298 Tubes 3200 0 3200 Output ([REMOVED] GI Feed/Drain 06/21/17 1500 Admission to HospitalNasogastric Right Naris 06/21/17 183) 3000 3000 Output (GI Feed/Drain 06/21/17 2000 Oral Gastric Midline 16 Fr) 200 0200 Other Amount Wasted Platelets 0 mL 0 mL Amount Wasted Fresh Frozen Plasms 0 mL 0 mL # of BMs Number of BMs 0 x 0 x 0 x Shift Total 4360 920 5280Weight (kg) 96 96 101.1 101.1 101.1 101.1 101.1 101.1MEDICATIONSCurrent Facility-Administered Medications:potassium chloride 80-120 mEq oral liquid 80-120 mEq ORAL/FEEDING TUBE PRNpotassium chloride iv piggyback 20 mEq in sterile water 100 mL 60-120 mEqINTRAVENOUS PRNmagnesium sulfate in water 2 g in sterile water 50 ml 2 g INTRAVENOUS PRNsodium phosphate 45 mmol in NaCl 0.9% 250 mL 45 mmol INTRAVENOUS PRNcalcium gluconate 4 g in NaCl 0.9% 250 mL 4 g INTRAVENOUS PRNpantoprazole 40 mg injection (PROTONIX) 40 mg INTRAVENOUS q 12 HRoctreotide 500 mcg in D5W 100 mL (SandoSTATIN) 50 mcg/hr INTRAVENOUSCONTINUOUSNORepine phrine 16 mg in D5W 250 mL (LEVOPHED) 0.6-50 mcg/min INTRAVENOUSCONTINUOUSfentaNYL iv infusion 20 mcg/mL in NaCl 0.9% 100 mL 25 mcg/hr INTRAVENOUSCONTINUOUSpropofol infusion (DIPRIVAN) 5-50 mcg/kg/min (Order-Specific) INTRAVENOUSCONTINUOUSChlorhex idine Gluconate 0.12 % 15 mL (PERIDEX) 15 mL ORAL q 12 Hpiperacillin-tazobactam 3.375 g in dextrose (iso-osmotic) 50 mL (ZOSYN)3.375 g INTRAVENOUS q 6 HLabs:Recent Labs 06/21/1819NA 140 -- 140 --K 3.4* -- 4.2 --CHLOR 100 -- 100 --CO2 37* -- 30 --BUN 81* -- 94* --CREAT 1.30* -- 1.45* --GLUC 115* -- 170* --ANION 6* -- 14 --CA 7.7* -- 7.1* --ALB -- -- 2.3* --AST -- -- 34 --ALT -- -- 44 --ALKPHOS -- -- 41* --TBILI -- -- 1.1* --WBC 18.72* -- -- 27.76*HB 12.2* 12.6* -- 7.7*HCT 34.5* -- -- 22.4*PLT 138* -- -- 233LACT -- -- -- 4.5*INR -- 1.08 -- 1.15PH -- -- 7.336* --PCO2 -- -- 54.7* --PO2 -- -- 291.5* --BE -- -- 1.9 --Exam:GENERAL: No distress, intubated/sedatedNEURO: intubated/sedatedHEENT: normocephalic, atraumaticLUNGS: Unlabored breathingCARDIAC: Regular rate and rhythm as aboveABDOMEN: Soft, non-distended. NGT w/ coffee-ground outputEXTREMITIES: JERONIMO, No deformities, No edemaSKIN: Skin color, texture, turgor normal, No rashes or lesionsASSESSMENT AND PLAN:71 year old male w/ UGI bleed- will follow in case surgical intervention needed for UGI bleed- cont mgmt per primary/Valentina Montiel MDGeneral Surgery Chief ResidentPromedica Fostoria Community Hospital 2017 6:14 [facility] #: Pager: [phone] NoteI evaluated the patient and personally participated in the rivera components.I agree with the resident's findings and plan as documented and havediscussed the case and management of the patient's care with the resident.Kian Lobo, [facility] HOSPITALepartment of General SurgerySection of Trauma, Surgery Critical Care, and Acute Care SurgeryDelayed entry Normal [facility] ABDOMEN 1 VIEWon 06-21-2017 ABDOMEN 1 VIEW Performed at [facility] APPROVED BY: Yann Lazar MD EXAM TITLE: ABDOMEN 1 VIEW DATE: 06/21/2017 19:42 COMPARISON: None. CLINICAL INDICATION/HISTORY: OG tube placement TECHNIQUE: AP upright portable view of the thorax and upper abdomen FINDINGS:OG tube extends into the proximal to mid gastric body. The patient is intubated. There is a right central venous catheter terminating along the expected position of the inferior SVC. Probable small left pleural effusion with basilar atelectasis. IMPRESSION: OG tube extends into the proximal to mid gastric body. Normal [facility] ABO/Rh Confirmationon 2017 ABO group A Normal [facility] Comment on above: Performed By: #### P T ####[place] [address] RH Type Positive Normal [facility] Comment on above: Performed By: #### P T ####[place] [address] ALLIED HEALTHon 06-21-2017 ALLIED HEALTH HNO ID: [id number] thor: Tatum Rogers (Chaplain)ervice: Spiritual CareAuthor Type: ChaplainType: Allied HealthFiled: 06/21/2017 9:42 PMNote Text: SPIRITUALCARESpiritual Care Visit- Brief NoteName: Cristina LarchmontMRN: [id number]: June 21, 2017Notes: Resident physician had appliance service representative paged to offer support for Pt'sfamily who were waiting in MICU Consult room. Hydraulic Rockbreaker Operator introduced himselfand role/ availability to Pt's family. Family stated they were aware ofthe seriousness of Pt's condition and requested prayers. Chaplainconfirmed how difficult the situation is and encouraged focus on present.Hydraulic Rockbreaker Operator provided spiritual comfort/compassion and prayers as desired.Family grateful for SC and chaplains availability. Hydraulic Rockbreaker Operator encouragedfamily to notify staff if he could be of further service in any way.Hydraulic Rockbreaker Operator to remain available. Chaphaleyi n Signature: Consuelo Rogers contact the Spiritual Care Department:Please call [phone] or Page the On-Call at pager [phone] you for the opportunity to be of service.This is an electronically created document.IF PRINTED, PLEASE DO NOT REMOVE FROM THE CHART OR MODIFY PRINTED COPY. Normal [facility] Alcohol, Serumon 06-21-2017 Alcohol, Serum < [address] [facility] Comment on above: Performed By: #### P T ####[facility] [place] [address] Blood Gas Arterialon 018 Base Excess 1.9 mEq/L Normal -2.5 to 2.[address] [facility] Comment on above: Performed By: #### P T ####[place] [address] Bicarbonate (HCO3) 28.6 mmol/L High 22.0-26.[address] [facility] Comment on above: Performed By: #### P T ####[place] [address] CO2 54.7 mm Hg High 36.0-46.[address] [facility] Comment on above: Performed By: #### P T ####[address] [address] O2% Sat Arterial 99.4 % High 95.0-98.[address] [facility] Comment on above: Performed By: #### P T ####[address] [address] pH Arterial 7.336 Low 7.350-7.[address] [facility] Comment on above: Performed By: #### P T ####[address] [address] PO2 Arterial 291.5 mm Hg High 85.0-96.[address] [facility] Comment on above: Performed By: #### P T ####[place] [address] FIO2 100 % Normal [facility] Comment on above: Performed By: #### P T ####[place] [address] Body temperature [address] [facility] Comment on above: Performed By: #### P T ####[facility] [place] [id number] CHEST 1 VIEWon 06-21-2017 CHEST 1 VIEW Performed at [facility] APPROVED BY: Davon Sorensen MD EXAMINATION: CHEST RADIOGRAPH (SINGLE VIEW AP OR PA) Clinical History: Central line placement, nasogastric tube placementM: XC1_4Comparison: None RESULT: Lines, tubes, and devices: Tip of the right side central line catheter is in the expected location of the proximal SVC.NG tube tip in the left upper quadrant in the region of the body the stomach. Lungs and pleura: No consolidation. No lung mass. No pleural effusion. Cardiomediastinal silhouette: Normal cardiomediastinal silhouette. Other: No measurable pneumothorax seen on a limited supine portable exam IMPRESSION: Tip of the right side central line catheter is in the expected location of the proximal SVC.NG tube tip in the left upper quadrant in the region of the body the stomach. Normal [facility] CONSULTon 06-21-2017 CONSULT HNO ID: [id number] thor: Kian Persaudervice: General SurgeryAuthor Type: PhysicianType: ConsultsFiled: 07/16/2017 3:31 PMNote Text:HISTORY AND PHYSICAL EXAMINATION / CONSULTATION NOTESERVICE DATE: 06/21/2017SERVICE TIME: 5:45 PMPRIL.[facility]: Bipin Perez Chi COMPLAINT: UGI bleedHPI: This is a 71 year old male who presents as a transfer [facility] for UGI bleeding. He has received 6u prbc at this point and hashad ~3.5L output from his NG tube which is black in color. The patient hasa known drinking history however due to intubation the history is notcompletely obtainable. From the records and primary team the pt has ahistory of HTN COPD and etoh abuse. There is a remote history of apossible copd vs pna exacerbation recently and the patient was placed onprednisone as an outpatient. Unknown history of Nsaid use.Last admit - noneFUNCTIONAL STATUS: unknownNo past medical history on file.No past surgical history on file.No family history on file.Social HistorySubstance Use Topics- Smoking status: Not on file- Smokeless tobacco: Not on file- Alcohol use Not on filePrescriptions Prior to Admission:lisinopril (ZESTRIL, PRINIVIL) 20 mg tablet Take 20 mg by mouth oncedaily. Disp: Rfl:pravastatin (PRAVACHOL) 40 mg tablet Take 40 mg by mouth once daily. Disp: Rfl:ipratropium-albuterol (COMBIVENT RESPIMAT) 20-100 mcg/actuation mistInhale 1 Inhalation as instructed four times daily. Disp: Rfl:aspirin 81 mg chewable tablet Take 81 mg by mouth once daily. Disp: Rfl:budesonide-formoterol (SYMBICORT) 160-4.5 mcg/actuation inhaler Inhale 1Puff as instructed twice daily. Disp: Rfl:ranitidine (ZANTAC) 150 mg tablet Take 150 mg by mouth twice daily. Disp:Rfl:guaiFENesin (MUCINEX) 600 mg 12 hr tablet Take 1,200 mg by mouth twicedaily. Disp: Rfl:predniSONE (DELTASONE) 10 mg tablet Take 10 mg by mouth once daily. Disp:Rfl:carvedilol (COREG) 6.25 mg tablet Take 6.25 mg by mouth twice daily withmeals. Disp: Rfl:furosemide (LASIX) 40 mg tablet Take 40 mg by mouth twice daily. Disp:Rfl:ALLERGIESNo Known AllergiesCOMPLETE REVIEW OF SYSTEMS:See HPIObjectivePHYSICAL EXAM:GENERAL: intubated, fighting vent.SKIN: Skin color, texture, turgor normal. No rashes or lesions.LUNGS: Unlabored breathing on O2 Therapy: Ventilator on sating at SpO2:(!) 70 %CARDIAC: Regular rate and rhythm as above,ABDOMEN: Soft, non-tender, No masses, hepatosplenomegaly, NolymphadenopathyEXTREMITIES: ROM of all joint grossly normal: strength grossly normalbilaterally. No deformities noted.WOUND: not applicableNG in place with black output.BP 96/36 Pulse 88 Temp 94.3 Resp 21 SpO2 70%Temp (24hrs), Av.2 ?C (95.3 ?F), Min:34 ?C (93.2 ?F), Max:36 ?C (96.8?F)There is no height or weight on file to calculate BMI.DATA:Diagnostic tests reviewed for today's visit:Recent Results (from the past 48 hour(s))-RBC PRODUCTS (AK,AV,EU,FV,HL,GERRY,MM,SP) *Canceled*Collection Time: 06/21/17 12:00 AMNarrativeORDER was CANCELLED on 06/21/2017 at 16:50 by [facility]. Duplicate order-FROZEN PLASMA (AK,AV,EU,FV,HL,GERRY,MM,SP) *Canceled*Collection Time: 06/21/17 12:00 AMNarrativeORDER was CANCELLED on 06/21/2017 at 16:50 by [facility]. Duplicate order-PROTHROMBIN TIME / PT (AK,AV,EU,FV,HL,GERRY,MM,SP)Sarah ection Time: 06/21/17 3:00 PMResult Value Ref RangeProthrombin Time 11.9 9.3 - 11.9 secINR 1.15-CBC + AUTO DIFF (AK,AV,EU,FV,HL,GERRY,MM,SP)Sarah ection Time: 06/21/17 3:00 PMResult Value Ref RangeWBC 27.76 (HH) 4.23 - 9.07 thou/cmmRBC 2.39 (L) 4.63 - 6.08 mil/cmmHGB 7.7 (L) 13.7 - 17.5 g/dLHematocrit 22.4 (L) 40.1 - 51.0 %MCV 93.7 83.2 - 95.6 flMCH 32.2 25.7 - 32.2 pgMCHC 34.4 32.3 - 36.5 %RDW 14.2 11.6 - 14.4 %RDW-SD 48.3 (H) 36.1 - 45.8 flPlatelet Count 233 141 - 365 thou/cmmMPV 10.6 8.7 - 12.0 flNucleated RBC % 0.3 (H) 0.0 - 0.2 %Nucleated RBC Absolute 0.09 (H) 0.00 - 0.01 thou/cmmSeg Neutrophil 81.0 %Lymphocyte 15.0 %Monocyte 3.0 %Eosinophil 0.0 %Basophil 0.0 %Metamyelocytes 1.0 %Seg. Neut. # 22.49 (H) 1.78 - 5.38 thou/cmmImmat Grans Abs Calc 0.28Lymphocyte # 4.16 (H) 0.84 - 2.85 thou/cmmMonocyte # 0.83 (H) 0.30 - 0.82 thou/cmmEosinophil # 0.00 (L) 0.04 - 0.54 thou/cmmBasophil # 0.00 (L) 0.01 - 0.08 thou/cmmRBC Morphology PresentAnisocytosis SlightPolychromasia Few-TYPE + SCREEN (AK,AV,EU,FV,HL,GERRY,MM,SP)Sarah ection Time: 06/21/17 3:00 PMResult Value Ref RangeABO Group ARH Type PositiveAntibody Screen NEGATIVEComment: See Below-LACTIC ACID / LACTATE (AK,AV,EU,FV,HL,GERRY,MM,SP)Sarah ection Time: 06/21/17 3:00 PMResult Value Ref RangeLactic Acid 4.5 (HH) 0.4 - 2.0 mEq/L-VENOUS BLOOD GASES B/O (LD)Collection Time: 06/21/17 3:00 PMResult Value Ref RangeTemp 37.0pH, Venous 7.397 7.320 - 7.947wKQ9, Venous 59.3 (H) 38.0 - 49.0 mm HgpO2, Venous 46.6 (H) 35.0 - 45.0 mm HgHCO3 BG 35.7 (H) 22.0 - 26.0 mEq/LBase Excess 9.6 -2.5 to 2.5 mEq/LO2% SAT VENOUS 74.2 70.0 - 80.0 %-PLATELETS (AK,AV,EU,FV,HL,GERRY,MM,SP)Sarah ection Time: 06/21/17 3:11 PMResult Value Ref RangePheresed Plts unit 1 Done-RBC PRODUCTS (AK,AV,EU,FV,HL,GERRY,MM,SP)Sarah ection Time: 06/21/17 3:12 PMResult Value Ref RangeXmatch Unit 1 see belowXmatch Unit 2 see belowXmatch Unit 3 see belowXmatch Unit 4 see belowXmatch Unit 5 see below-TYPE + SCREEN (AK,AV,EU,FV,HL,GERRY,MM,SP) *Canceled*Collection Time: 06/21/17 3:49 PMNarrativeTEST Type and Screen WAS CANCELLED on 06/21/2017 at 15:49 by [facility].Duplicateorder-FROZEN PLASMA (AK,AV,EU,FV,HL,GERRY,MM,SP)Sarah ection Time: 06/21/17 3:49 PMResult Value Ref RangeFFP unit 1 DoneFFP unit 2 DoneFFP unit 3 DoneFFP unit 4 DoneFFP unit 5 Done-RBC PRODUCTS (EU,FV,HL,GERRY,MM,SP)Collection Time: 06/21/17 4:39 PMResult Value Ref RangeXmatch Unit 1 see belowXmatch Unit 2 see below-RBC PRODUCTS (EU,FV,HL,GERRY,MM,SP)Collection Time: 06/21/17 5:13 PMResult Value Ref RangeXmatch Unit 1 see belowXmatch Unit 2 see belowXmatch Unit 3 see belowXmatch Unit 4 see belowXmatch Unit 5 see below-PLATELETS (EU,FV,HL,GERRY,MM,SP)Collection Time: 06/21/17 5:20 PMResult Value Ref RangePheresed Plts unit 1 Done-FROZEN PLASMA (EU,FV,HL,GERRY,MM,SP)Collection Time: 06/21/17 5:20 PMResult Value Ref RangeFFP unit 1 DoneFFP unit 2 DoneFFP unit 3 DoneFFP unit 4 DoneFFP unit 5 Done]Assessment/PlanThis is a 71 year old male who presents with UGI bleed-Gi to perform endoscopy-surgery will be on standby if needed-d/w dr lobo.SIGNATURE: Jaren Godfrey MD PATIENT NAME: Cristina JeffreyDATE: June 21, 2017 : 5:45 PM PAGER/CONTACT #: [phone] NoteI agree with the resident's findings and plan as documented and havediscussed the case and management of the patient's care with the resident.Kian Lobo, MDDepartment of General SurgerySection of Trauma, Surgery Critical Care, and Acute Care SurgeryDelayed entry Normal [facility] Comprehensive Panelon 2017 Alkaline phosphatase (ALP) 41 U/L Low 46-[address] [facility] Comment on above: Performed By: #### P T ####[facility] [place], [place] [address] Bilirubin Ql (U) 1.1 mg/dL High 0.2-1.[address] [facility] Comment on above: Performed By: #### P T ####[facility] [place], [place] [address] Creatinine 1.45 mg/dL High 0.67-1.[address] [facility] Comment on above: Performed By: #### P T ####[facility] [place], [place] [address] Protein 4.6 g/dL Low 6.4-8.[address] [facility] Comment on above: Performed By: #### P T ####[address] [address] Alanine aminotransferase (ALT) 44 U/L Normal 12-[address] [facility] Comment on above: Performed By: #### P T ####[address] [address] Aspartate aminotransferase (AST) 34 U/L Normal 9-[address] [facility] Comment on above: Performed By: #### P T ####[address] [address] Albumin 2.3 g/dL Low 3.4-5.[address] [facility] Comment on above: Performed By: #### P T ####[address] [address] Anion gap 14 mmol/L Normal 8-[address] [facility] Comment on above: Performed By: #### P T ####[address] [address] Calcium 7.1 mg/dL Low 8.5-10.[address] [facility] Comment on above: Performed By: #### P T ####[address] [address] CO2 30 mmol/L Normal 21-[address] [facility] Comment on above: Performed By: #### P T ####[place] [address] Glucose mass conc 170 mg/dL High 70-[address] [facility] Comment on above: Performed By: #### P T ####[facility] [place] [address] Urea nitrogen 94 mg/dL High 7-[address] [facility] Comment on above: Performed By: #### P T ####[facility] [place] [address] Chloride 100 mmol/L Normal 98-[address] [facility] Comment on above: Performed By: #### P T ####[facility] [place] [address] Potassium molar conc 4.2 mmol/L Normal 3.5-5.1 [facility] Comment on above: Performed By: #### P T ####[place] [address] Sodium 140 mmol/L Normal 136-[address] [facility] Comment on above: Performed By: #### P T ####[place] [address] Frozen Plasma (Thawed Plasma )on 06-21-2017 FFP unit 3 Done Normal [facility] Comment on above: Performed By: #### P T ####[facility] [place] [address] FFP unit 4 Done Normal [facility] Comment on above: Performed By: #### P T ####[address] [address] FFP unit 5 Done Normal [facility] Comment on above: Performed By: #### P T ####[facility] [place] [address] FFP unit 1 Done Normal [facility] Comment on above: Performed By: #### P T ####[facility] [place] [address] FFP unit 2 Done Normal [facility] Comment on above: Performed By: #### P T ####[address] [address] FFP unit 3 Done Normal [facility] Comment on above: Performed By: #### F FPXS ####[address], [place] [address] FFP unit 4 Done Normal [facility] Comment on above: Performed By: #### F FPXS ####[facility] [place], [place] [address] FFP unit 5 Done Normal [facility] Comment on above: Performed By: #### F FPXS ####[facility] [place] [address] FFP unit 1 Done Normal [facility] Comment on above: Performed By: #### F FPXS ####[facility] [place] [address] FFP unit 2 Done Normal [facility] Comment on above: Performed By: #### F FPXS ####[place] [address] HISTORY PHYSICALon 8 HISTORY PHYSICAL HNO ID: [id number] thor: Aquiles Harper) Omivice: Critical CareAuthor Type: PhysicianType: HANDPFiled: 06/21/2017 5:26 PMNote Text:[facility] STAFF PHYSICIAN NOTE OF PERSONAL INVOLVEMENT IN CAREI have reviewed the history and physical examination obtained anddocumented by the resident and I personally participated in the keycomponents. I have discussed the case and management of the patient'scare. The following comments revise or confirm relevant rivera components ofthe note.IMPRESSION:71 year old male with PMH of HTN, COPD, HLD, ?ETOH use presented withmelena to [facility]. He was [facility] withHemorrhagic shock AND Acute blood loss anemia 2/2 UGIB. Has put out morethan 3L blood through NG tube.Acute encephalopathy 2/2 aboveType 3 respiratory failure 2/2 aboveLeukocytosisAtrial Fibrillation, new onsetLactic acidosis, HAGMAPLAN:Intubate for airway protectionLevophed, Massive transfusion protocol with Rapid transfuser, transfusefor active bleeding. Target MAP ~ 60 mm Hg, titrate off Levophed as ableCheck Hb, correct coags, check chemistriesProtonix drip, Octreotide, ABxConsult GI, needs endoscopyCentral line, A lineCheck blood gas, CXRICU PPxThis patient has a high probability of sudden, clinically significantdeterioration, which requires the highest level of physician preparednessto intervene urgently. I managed/supervised life or organ supportinginterventions that required frequent physician assessment. I devoted myfull attention to the direct care of this patient for the amount of timeindicated below. Time I spent with family or surrogate(s) is includedonly if the patient was incapable of providing the necessary informationor participating in medical decision making. Time devoted to teaching andto any procedures I billed separately is not included.Critical Care Documentation: The patient has the following organ/systemimpairment(s): Acute blood loss, Circulatory shock, Encephalopathy andRespiratory failure (Acute)Time spent providing critical care services: 60 minutes.SIGNATURE: MAICO Ross INSTITUTEDATE of SERVICE: 06/21/2017TIME of SERVICE: 4:57 PM Normal [facility] HISTORY PHYSICAL HNO ID: [id number] thor: Charis Arguello: Critical CareAuthor Type: ResidentType: HANDPFiled: 06/21/2017 5:46 PMNote Text: At testation signed by Aquiles Osborne at 06/22/2017 9:02 [facility] STAFF PHYSICIAN NOTE OF PERSONAL INVOLVEMENT IN CAREI have reviewed the progress note obtained and documented by the resident and Ipersonally participated in the rivera components. I have discussed the case andmanagement of the patient's care. Please refer to my note from 06/21/2017 for myassessment and plan.SIGNATURE: LIG[facility] RossMAR[facility] --MICU CONSULT HANDPCRITICAL CARE CONSULT NOTESERVICE DATE: 06/21/2017SERVICE TIME: 3:24 PMREASON FOR CONSULT: Hemorrhagic shockADMITTING PROVIDER: Mazin Laguna DecoySERVICE DATE: 06/21/2017SERVICE TIME: 3:24 PMAdmission Date: 06/21/2017AGE: 71 year oldLOS: 0 daysSubjectiveHISTORY OF PRESENT ILLNESS:Cristina Jeffrey is a 71 year old with a history of COPD, HTN, HLD, and aquestionable history of alcohol abuse who presented to [facility] withdyspnea who received a breathing treatment and then became increasinglyaltered. He waas found to be AANDOx1, hypotensive and believed to be inhypovolemic/hemorrhagic shock from a GI bleed. He received 2L NS and 1unit of pRBC. He has no active signs of bleeding, but a recent history ofmelena.He is brought here to the ICU by EMS only arousable to sternal rub. Hisinitial BP's were 60's/40's and tachycardic to the 120's. An OG was placedand immediately revealed black fluid. Patient was immediately intubatedfor airway protection.PROBLEMS: ACTIVE PROBLEM LISTShock (Hcc)Copd (Chronic Obstructive Pulmonary Disease) (Hcc)HypertensionAtrial Fibrillation (Hcc)HyperlipidemiaNo past medical history on file.No past surgical history on file.Social History Marital status: Spouse name: Years of education: Number of children:Social History Main TopicsPAST MEDICAL HISTORY: No past medical history on file.SURGICAL HISTORY: No past surgical history on file.SOCIAL HISTORY:Social HistorySubstance Use Topics- Smoking status: Not on file- Smokeless tobacco: Not on file- Alcohol use Not on fileFAMILY HISTORY: No family history on file.MEDICATIONS:lisinopril (ZESTRIL, PRINIVIL) 20 mg tablet Take 20 mg by mouth oncedaily.pravastatin (PRAVACHOL) 40 mg tablet Take 40 mg by mouth once daily.ipratropium-albuterol (COMBIVENT RESPIMAT) 20-100 mcg/actuation mistInhale 1 Inhalation as instructed four times daily.aspirin 81 mg chewable tablet Take 81 mg by mouth once daily.budesonide-formoterol (SYMBICORT) 160-4.5 mcg/actuation inhaler Inhale 1Puff as instructed twice daily.ranitidine (ZANTAC) 150 mg tablet Take 150 mg by mouth twice daily.guaiFENesin (MUCINEX) 600 mg 12 hr tablet Take 1,200 mg by mouth twicedaily.predniSONE (DELTASONE) 10 mg tablet Take 10 mg by mouth once daily.carvedilol (COREG) 6.25 mg tablet Take 6.25 mg by mouth twice daily withmeals.furosemide (LASIX) 40 mg tablet Take 40 mg by mouth twice daily.ALLERGIES: ALLERGIESNo Known AllergiesREVIEW OF SYSTEMSGENERAL: No weight loss, malaise or fevers.HEENT: Negative for frequent or significant headaches, No changes inhearing or vision, no nose bleeds or other nasal problemsNECK: Negative for lumps, goiter, pain and significant neck swellingRESPIRATORY: see HPICARDIOVASCULAR: Negative for chest pain, leg swelling or palpitations.GI: no nausea, vomiting, or diarrheaGU: No history of dysuria, frequency or incontinence.MUSCULOSKELETAL: Negative for joint pain or swelling, back pain or musclepain.SKIN: Negative for lesions, rash, and itching.PSYCH: Negative for sleep disturbance, mood disorder and recentpsychosocial stressors.ENDOCRINE: Negative for cold or heat intolerance, polyuria, polydipsia andgoiter.NEURO: No history of headaches, syncope, paralysis, seizures or tremorsAll other systems reviewed and negative other than mentioned above.ObjectivePHYSICAL EXAMPHYSICAL EXAMINATION:BP (!) 96/36 Pulse 88 Temp (!) 34.6 ?C (94.3 ?F) Resp 21 SpO2 (!)70%There is no height or weight on file to calculate BMI.OXYGEN:General appearance: Pale, lethargic, response only to sternal rubHead: normocephalic, no masses, lesions, tenderness or abnormalitiesEyes: Pupils are equally round and reactive to light.Oropharynx: Lips, mucosa, and tongue normal, teeth and gums normal,oropharynx normalNeck: Supple, no adenopathy; thyroid symmetric, normal size, no bruitsLungs: CTA B/LHeart: irregular rhythm, normal rateAbdomen: distended, tympanic to percussion, + fluid wave shiftExtremities: Cold extremities, weak pulsesNeuro: Lethargic, arrousable to sternal rub otherwise not responsiveDATA REVIEWOutside ED :Hgb 9.4, WBC 31, Platelet 324HCT 28Lactic acid 4.8AB.59/42/62Respiratory/Nursing Documentation:O2 Therapy: Ventilator (06/21/171554)Invasive Ventilator Mode: Pressure Regulated Volume Control ()Set Ventilator Respiratory Rate (BPM): 14 (06/21/171554)Total Respiratory Rate (BPM): 14 (06/21/171554)Tidal Volume Set (mL): 450 (06/21/171554)Minute Volume (L): 6.4 (06/21/171554)Peak Inspiratory Pressure (cm H2O): 16 (06/21/171554)PEEP/CPAP (cm H2O): 5 (06/21/171554)HEMODYNAMIC DATA: ReviewedNUTRITION:Enteral Feeds: NPOChest Xray: Scattered calcified granulomas, no pleural abnormality,normal size heart, Normal mediastinum and chelle, normal visualizedpulmonary arteries, atherosclerotic calcification of the aortic arch withtortuosity.CT Scans: Brain CT - chronic involutional changes of the brain, smalllacunar infarct in the left thalamus06/08/17 Echo: LA dilation , LV systolic function normal, EF 60%mild focalaortic valve thickeningPulmonary Function Test:No textual results found for the specified procedure(s).IMPRESSION:Criti amber Care Documentation: The patient has the following organ/systemimpairment(s):# Hemorrhagic Shock 2/2 Acute Upper GI Bleed- ddx ruptured variocele vs ulcer, gastritis, Boerhaave syndrome- stat c/s GI for endoscopy- H/H Q6HR until stable- trend LA- PPI- Octreotide drip- CXR/ KUB- prophylactic Zosyn# Acute Respiratory Failure- intubated for airway protection- TV 450, RR16, FiO2 goal 40%- ABG now# Atrial Fibrillation- though candidate for anticoagulation; at this point will hold in thesetting of acute GI bleed# Hypertension- currently hypotensive# COPD- patient had recent hospitalization discharged around 06/12 per patient'ssister for some "lung infection" and was d/c with prednisone- hold for now- Duoneb/albuterol prnMMPCRITICAL CARE PLAN:Massive GI Bleed; on pressures, stat GI c/s for endoscopy, massive bloodtransfusion protocolPLAN: Case was discussed in detail with the patient, the consulting teamand staff.Staffed with : Dr. CookATURE: Chula Melendrez MD PATIENT NAME: Cristina JeffreyDATE: June 21, 2017 : 3:24 PM PAGER: [phone] [facility] HOSPon 06-21-2017 [facility] Patient:Tessie Jeffrey tMRN: Height:5' 10"(1.778 m)Weight:220 lb 0.3 oz (99.8 kg)Outpatient Medications as of 06/23/17:carvedilol (COREG) 12.5 mg tabletVit A,C,G-Vpgs-Yruztn (PRESERVISION AREDS) 14,320-226-200 vwhn-gv-qink capalbuterol (PROVENTIL) 2.5 mg /3 mL (0.083 %) nebulizer solutionlisinopril (ZESTRIL, PRINIVIL) 20 mg tabletpravastatin (PRAVACHOL) 40 mg tabletaspirin 81 mg chewable tabletbudesonide-formoterol (SYMBICORT) 160-4.5 mcg/actuation inhalerranitidine (ZANTAC) 150 mg tabletguaiFENesin (MUCINEX) 600 mg 12 hr tabletpredniSONE (DELTASONE) 10 mg tabletfurosemide (LASIX) 40 mg tabletAdmission/Clinic Administered Medications as of 06/23/17:dilTIAZem 100 mg in D5W 100 mL ADD-Arvilla (CARDIZEM)albuterol 2.5 mg/0.5 mL 2.5 mg nebulizer solution (PROVENTIL)ipratropium-albute rol 3 mL nebulizer solution (DUONEB)vancomycin 1.5 g in D5W 250 mL (VANCOCIN)dextrose 5% in NaCl 0.45% with 20 mEq/L KCl iv infusionpotassium chloride 80-120 mEq oral liquidpotassium chloride iv piggyback 20 mEq in sterile water 100 mLmagnesium sulfate in water 2 g in sterile water 50 mlcalcium gluconate 4 g in NaCl 0.9% 250 mLpantoprazole 40 mg injection (PROTONIX)pantoprazole 40 mg injection (PROTONIX)propofol infusion (DIPRIVAN)Chlorhexidine Gluconate 0.12 % 15 mL (PERIDEX)Problem List:Shock (HCC) [R57.9]COPD (chronic obstructive pulmonary disease) (HCC) [J44.9]Hypertension [I10]Atrial fibrillation (HCC) [I48.91]Hyperlipidemia [E78.5]GI bleeding [K92.2]Allergies:No Known AllergiesDate Verified:06/23/17Lab ValuesLab Value Units Date High LowPOTA* 3.9 mEq/L 06/23/2017 5.1 3.5HEMA* 31.1 % 06/23/2017 51.0 40.1Progress Notes ():Sagar Dominguez MD 06/22/2017 5:14 PM [facility] - Operative ReportSURGEON: ENRIQUE AlcarazATIENT NAME: DAVID JEFFREYRN: [id number] CSN: [id number] OF SURGERY: 06/21/2017DATE OF : 1945 SEX/AGE: M/71PATIENT TYPE: V HOSP SVC: PULM LOCATION: [id number] OF SURGERY: 06/21/2017SURGEON: ENRIQUE AlcarazROCEDURE PERFORMED: Esophagogastroduodenoscopy with Endoclip placement x4,epinephrine injection, biopsies of the gastric antrum and body for H. pylori.PREOPERATIVE DIAGNOSIS: Acute brisk upper gastrointestinal bleeding.POSTOPERATIVE DIAGNOSES:1. Multiple antral ulcers with 1 large ulcer with a visible vessel at its baseas the source of bleeding.2. A large ulcer at the pre-pyloric region. Scope advanced to the base of the duodenal bulb.MEDICATION GIVEN: Propofol IV.INSTRUMENT USED: Olympus therapeutic GIF-190 scope.INDICATION FOR THE PROCEDURE: This 71-year-old male [facility] with history ofacute brisk GI bleeding. He has been vomiting blood. Upon arrival into theintensive care unit, he had an NG tube placed which drained approximately 1 Lright away and then 2 more liters subsequently. The patient's hemoglobin isdown to 7 grams. He was resuscitated for hemorrhagic shock. He has underlyingCOPD, hypertension, and very questionable alcohol use.TECHNIQUE: Informed consent was obtained from his sister in the presence of sheela and multiple other family members.The patient was previously intubated by the Critical Care Service and placed onthe ventilator.A therapeutic video duodenoscope was passed per oral route into the esophagusand advanced down to the base of the duodenal bulb. Scope was pulled back intothe stomach and a large ulcer noted at the mid to distal antrum which measuredapproximately 2 cm x 1 cm. A visible vessel was noted at the ulcer base with asmall clot, which was washed away. 4 Endoclips were placed on it and then 4 mLof 1 in 10,000 epinephrine was injected around the clips. No bleeding wasnoted towards the end of the procedure. The scope was then retroflexed in theproximal stomach. Biopsies were taken from the proximal antrum and distal bodyfor H. pylori. Scope was then gradually withdrawn and the patient allowed torecover.FINDINGS:1. Esophagus was noted to be normal. Z-line was noted at 44 cm from lips. TheZ- line was noted to be irregular. There band imaging showed linear columns of Sandra's mucosa. No varices were seen on this exam in the esophagus.2. Stomach showed no gastric varices. Old blood mixed with food was noted inthe stomach. It was blackish in color. Distal antrum showed multiple ulcerswith one of them being large, measuring approximately 2 cm x 1 cm with a visible vessel and a little small clot on it. The pyloric channel area showed alarge ulcer, but attempt was made not to spend too much time in view of the end of the patient's critical illness. The scope was however advanced into the duodenal bulb where no blood was noted to be present in the duodenum.RECOMMENDATION:1. We will watch for further bleeding.2. To continue on octreotide for overnight.3. To continue on IV PPIs.4. We will schedule the patient for a second-look endoscopy. The surgery is on the standby.Ifeoma AlcarazroenterologyGM:modlD: 06/21/2017 19:29:30T: 06/22/2017 03:55:36Job #: [id number] Liu, DO 06/21/2017 5:46 PM Attested -Attestation signed by Aquiles Osborne at 06/22/2017 9:02 [facility] STAFF PHYSICIAN NOTE OF PERSONAL INVOLVEMENT IN CAREI have reviewed the progress note obtained and documented by the resident and Ipersonally participated in the rivera components. I have discussed the case andmanagement of the patient's care. Please refer to my note from 06/21/2017 for myassessment and plan.SIGNATURE: Aquiles Osborne, [facility] --MICU CONSULT HANDPCRITICAL CARE CONSULT NOTESERVICE DATE: 06/21/2017SERVICE TIME: 3:24 PMREASON FOR CONSULT: Hemorrhagic shockADMITTING PROVIDER: Mazin McbrideSERVICE DATE: 06/21/2017SERVICE TIME: 3:24 PMAdmission Date: 06/21/2017AGE: 71 year oldLOS: 0 daysSubjectiveHISTORY OF PRESENT ILLNESS:Cristina Jeffrey is a 71 year old with a history of COPD, HTN, HLD, and aquestionable history of alcohol abuse who presented to [facility] with dyspnea whoreceived a breathing treatment and then became increasingly altered. He waasfound to be AANDOx1, hypotensive and believed to be in hypovolemic/hemorrhagicshock from a GI bleed. He received 2L NS and 1 unit of pRBC. He has no activesigns of bleeding, but a recent history of melena.He is brought here to the ICU by EMS only arousable to sternal rub. His initialBP's were 60's/40's and tachycardic to the 120's. An OG was placed andimmediately revealed black fluid. Patient was immediately intubated for airwayprotection.PROBLEMS: ACTIVE PROBLEM LISTShock (Hcc)Copd (Chronic Obstructive Pulmonary Disease) (Hcc)HypertensionAtrial Fibrillation (Hcc)HyperlipidemiaNo past medical history on file.No past surgical history on file.Social History Marital status: Spouse name: Years of education: Number of children:Social History Main TopicsPAST MEDICAL HISTORY: No past medical history on file.SURGICAL HISTORY: No past surgical history on file.SOCIAL HISTORY:Social HistorySubstance Use Topics- Smoking status: Not on file- Smokeless tobacco: Not on file- Alcohol use Not on fileFAMILY HISTORY: No family history on file.MEDICATIONS:lisinopril (ZESTRIL, PRINIVIL) 20 mg tablet Take 20 mg by mouth once daily.pravastatin (PRAVACHOL) 40 mg tablet Take 40 mg by mouth once daily.ipratropium-albuterol (COMBIVENT RESPIMAT) 20-100 mcg/actuation mist Inhale 1Inhalation as instructed four times daily.aspirin 81 mg chewable tablet Take 81 mg by mouth once daily.budesonide-formoterol (SYMBICORT) 160-4.5 mcg/actuation inhaler Inhale 1 Puff asinstructed twice daily.ranitidine (ZANTAC) 150 mg tablet Take 150 mg by mouth twice daily.guaiFENesin (MUCINEX) 600 mg 12 hr tablet Take 1,200 mg by mouth twice daily.predniSONE (DELTASONE) 10 mg tablet Take 10 mg by mouth once daily.carvedilol (COREG) 6.25 mg tablet Take 6.25 mg by mouth twice daily with meals.furosemide (LASIX) 40 mg tablet Take 40 mg by mouth twice daily.ALLERGIES: ALLERGIESNo Known AllergiesREVIEW OF SYSTEMSGENERAL: No weight loss, malaise or fevers.HEENT: Negative for frequent or significant headaches, No changes in hearing orvision, no nose bleeds or other nasal problemsNECK: Negative for lumps, goiter, pain and significant neck swellingRESPIRATORY: see HPICARDIOVASCULAR: Negative for chest pain, leg swelling or palpitations.GI: no nausea, vomiting, or diarrheaGU: No history of dysuria, frequency or incontinence.MUSCULOSKELETAL: Negative for joint pain or swelling, back pain or muscle pain.SKIN: Negative for lesions, rash, and itching.PSYCH: Negative for sleep disturbance, mood disorder and recent psychosocialstressors.ENDOCRI NE: Negative for cold or heat intolerance, polyuria, polydipsia andgoiter.NEURO: No history of headaches, syncope, paralysis, seizures or tremorsAll other systems reviewed and negative other than mentioned above.ObjectivePHYSICAL EXAMPHYSICAL EXAMINATION:BP (!) 96/36 Pulse 88 Temp (!) 34.6 ?C (94.3 ?F) Resp 21 SpO2 (!) 70%There is no height or weight on file to calculate BMI.OXYGEN:General appearance: Pale, lethargic, response only to sternal rubHead: normocephalic, no masses, lesions, tenderness or abnormalitiesEyes: Pupils are equally round and reactive to light.Oropharynx: Lips, mucosa, and tongue normal, teeth and gums normal, oropharynxnormalNeck: Supple, no adenopathy; thyroid symmetric, normal size, no bruitsLungs: CTA B/LHeart: irregular rhythm, normal rateAbdomen: distended, tympanic to percussion, + fluid wave shiftExtremities: Cold extremities, weak pulsesNeuro: Lethargic, arrousable to sternal rub otherwise not responsiveDATA REVIEWOutside ED :Hgb 9.4, WBC 31, Platelet 324HCT 28Lactic acid 4.8AB.59/42/62Respiratory/Nursing Documentation:O2 Therapy: Ventilator (06/21/171554)Invasive Ventilator Mode: Pressure Regulated Volume Control (06/21/171554)Set Ventilator Respiratory Rate (BPM): 14 (06/21/171554)Total Respiratory Rate (BPM): 14 (06/21/171554)Tidal Volume Set (mL): 450 (06/21/171554)Minute Volume (L): 6.4 (06/21/17 155)Peak Inspiratory Pressure (cm H2O): 16 (06/21/171554)PEEP/CPAP (cm H2O): 5 (06/21/171554)HEMODYNAMIC DATA: ReviewedNUTRITION:Enteral Feeds: NPOChest Xray: Scattered calcified granulomas, no pleural abnormality, normal sizeheart, Normal mediastinum and chelle, normal visualized pulmonary arteries,atherosclerotic calcification of the aortic arch with tortuosity.CT Scans: Brain CT - chronic involutional changes of the brain, small lacunarinfarct in the left thalamus06/08/17 Echo: LA dilation , LV systolic function normal, EF 60%mild focal aorticvalve thickeningPulmonary Function Test:No textual results found for the specified procedure(s).IMPRESSION:Criti amber Care Documentation: The patient has the following organ/systemimpairment(s):# Hemorrhagic Shock 2/2 Acute Upper GI Bleed- ddx ruptured variocele vs ulcer, gastritis, Boerhaave syndrome- stat c/s GI for endoscopy- H/H Q6HR until stable- trend LA- PPI- Octreotide drip- CXR/ KUB- prophylactic Zosyn# Acute Respiratory Failure- intubated for airway protection- TV 450, RR16, FiO2 goal 40%- ABG now# Atrial Fibrillation- though candidate for anticoagulation; at this point will hold in the settingof acute GI bleed# Hypertension- currently hypotensive# COPD- patient had recent hospitalization discharged around 06/12 per patient's sisterfor some "lung infection" and was d/c with prednisone- hold for now- Duoneb/albuterol prnMMPCRITICAL CARE PLAN:Massive GI Bleed; on pressures, stat GI c/s for endoscopy, massive bloodtransfusion protocolPLAN: Case was discussed in detail with the patient, the consulting [facility] and[facility].Staffed with : Dr. OsborneSIGNATURE: Chula Melendrez MD PATIENT NAME: Cristina JeffreyDATE: June 21, 2017 : 3:24 PM PAGER: [phone] Adamaris Osborne MD 06/21/2017 5:26 PM AddendumLAKEWAY H[facility]ITAL STAFF PHYSICIAN NOTE OF PERSONAL INVOLVEMENT IN CAREI have reviewed the history and physical examination obtained and documented bythe resident and I personally participated in the rivera components. I havediscussed the case and management of the patient's care. The following commentsrevise or confirm relevant rivera components of the note.IMPRESSION:71 year old male with PMH of HTN, COPD, HLD, ?ETOH use presented with melena [facility] ED. [facility] withHemorrhagic shock AND Acute blood loss anemia 2/2 UGIB. Has put out more than 3Lblood through NG tube.Acute encephalopathy 2/2 aboveType 3 respiratory failure 2/2 aboveLeukocytosisAtrial Fibrillation, new onsetLactic acidosis, HAGMAPLAN:Intubate for airway protectionLevophed, Massive transfusion protocol with Rapid transfuser, transfuse foractive bleeding. Target MAP ~ 60 mm Hg, titrate off Levophed as ableCheck Hb, correct coags, check chemistriesProtonix drip, Octreotide, ABxConsult GI, needs endoscopyCentral line, A lineCheck blood gas, CXRICU PPxThis patient has a high probability of sudden, clinically significantdeterioration, which requires the highest level of physician preparedness tointervene urgently. I managed/supervised life or organ supporting interventionsthat required frequent physician assessment. I devoted my full attention to thedirect care of this patient for the amount of time indicated below. Time Ispent with family or surrogate(s) is included only if the patient was incapableof providing the necessary information or participating in medical decisionmaking. Time devoted to teaching and to any procedures I billed separately isnot included.Critical Care Documentation: The patient has the following organ/systemimpairment(s): Acute blood loss, Circulatory shock, Encephalopathy andRespiratory failure (Acute)Time spent providing critical care services: 60 minutes.SIGNATURE: MAICO Ross INSTITUTEDATE of SERVICE: 06/21/2017TIME of SERVICE: 4:57 PMPrevious Adamaris Osborne MD 06/21/2017 5:11 PM SignedBEDSIDE PROCEDURE NOTEPROCEDURE DATE: June 21, 2017PROCEDURE START TIME: 3:45 PMPRIMARY PROCEDURALIST: CHANDLER HaileISTANT(S): NoneINFORMED CONSENT: Due to emergent situation informed consent was not obtainedUNIVERSAL PROTOCOL / SAFETY CHECKLISTSign in Communication: CompletedTime Out: Team Confirms the Correct Patient, Correct Procedure, Correct Siteand Site Marking, Correct Position (if applicable), Prep and Dry Time (ifapplicable). Time: 3:47 PMAffirmation of Time Out: YESSign Out Discussion: CompletedPROCEDURE: OROTRACHEAL INTUBATIONIndication: Airway Protection and Difficulty BreathingSedation: The patient was sedated with etomidate. Muscle relaxation was achievedwith the administration of succinylcholine.Equipment: Endotracheal tube, size 7.5 mm and [place] ScopeThe patient was administered supplemental oxygen by bag-mask ventilation.Adjunct airway equipment and suction were at the bedside and ready to use. Thehead was placed in the sniffing position. I - Visualized entire cords via directvideo laryngoscopy. The method used for intubation was rapid sequence intubationbecause the patient was suspected of having a full stomach. Cricoid pressure wasmaintained. A 7.5 mm endotracheal tube was inserted using a glide scope andsecured at 23 cm at the teeth/gums. Placement was confirmed with capnometer,bilateral auscultatation of breath sounds without air sounds in the abdomen,second look laryngoscopy and chest x-ray ordered to confirm placement, resultspending.Difficulty Encountered: NonePatient tolerated procedure well.Complications: NoneNumber of Attempts for Intubation: 1No Specimens Collected Unless Noted HereEstimated Blood Loss if > Minimal Noted HereSIGNATURE: Aquiles Osborne MD PATIENT NAME: Cristina MooreTE: June 21, 2017 : 5:07 PMAttending addendumI was present at the bedside for the entire duration of the procedure.Kathryn Ross MD 06/21/2017 5:18 PM SignedBEDSIDE PROCEDURE NOTEPROCEDURE DATE: June 21, 2017PROCEDURE START TIME: 4:00 PMPRIMARY PROCEDURALIST: Afshin De Jesus MDASSISTANT(S): NoneINFORMED CONSENT: Due to emergent situation informed consent was not obtainedUNIVERSAL PROTOCOL / SAFETY CHECKLISTSign in Communication: Emergent N/ATime Out: Team Confirms the Correct Patient, Correct Procedure, Correct Siteand Site Marking, Correct Position (if applicable), Prep and Dry Time (ifapplicable). Time: NAAffirmation of Time Out: YESSign Out Discussion: CompletedPROCEDURE: CENTRAL VENOUS LINE INSERTIONIndication: Venous accessInsertion Type: New stickSite: Right internal jugular veinInserted By: ResidentSupervision: Aquiles Osborne MDUltrasound Used for Insertion: Yes, image not capturedThe usual aseptic technique was not followed due to clinical factorsnecessitating an emergent procedure. . No anesthesia was attempted due toclinical factors necessitating an emergent procedure. The vessel was cannulatedunder direct ultrasound visualization with a 6.35 cm, 18 gauge single lumencatheter on the first attempt.A J-tipped spring wire was passed into the vein through the indwelling catheterand left in situ while the catheter was removed. A small skin incision was madeand the tract was dilated with a semi-rigid tissue dilator. A 10 cm,dual-lumen, 9 Fr MAC introducer sheath was loaded onto the tissue dilator, thesheath/dilator assembly was advanced over the guidewire and the sheath was leftin situ while the guidewire and dilator were removed. All ports were capped with sterile site caps, venous blood was aspirated fromall ports and all ports were flushed with sterile saline solution. Anantimicrobial-impregnated protective disk was placed around the catheter, thecatheter was secured in place at 16 cm with sterile sutures and a sterile,transparent, occlusive dressing was placed over the site. A portable CXR wasordered. All catheters, needles and wires were accounted for and intact. Thepatient tolerated the procedure well and without apparent complicationsNo Specimens Collected Unless Noted HereEstimated Blood Loss: ScantSIGNATURE: Aquiles Osborne MD PATIENT NAME: Cristina JeffreyDATE: June 21, 2017 : 5:11 PMBart Hines DO, DO 06/21/2017 5:17 PM SignedMICU PROCEDURE NOTE: ARTERIAL LINE PLACEMENTThe risks, benefits, alternatives, and personnel discussed with patient orrepresentative who cannot consent to the procedure because of clinical urgency.UNIVERSAL PROTOCOL / SAFETY CHECKLIST: Procedure to be performed: Left radialarterial line.. Sign in Communication: Completed. Time Out: Team Confirms theCorrect Patient, Correct Procedure, Correct Site and Site Marking, CorrectPosition (if applicable). Time: 1700. Affirmation of Time Out: YES. Sign OutDiscussion: Completed.Anesthesia was not required as patient was already sedated with fentanyl afterintubation. The area was prepped and draped in the usual sterile fashion.Cannulation of the left radial artery was attempted under ultrasound guidancewith success on. Appropriate wave form was noted. The line was secured withsutures. A dressing was placed over the site. The patient tolerated theprocedure well.Bart Hines, DO06/21/2017BASHIR DARDEN PHARMACIST 06/21/2017 5:27 PM AddendumMEDICATION HISTORYPatient Name:Salvador JeffreyMRN: [id number]: [id number] of history: From Medication List from [facility]. Unable to verify withpharmacy at this time.Medication Nonadherence Identified: No barriers notedThe above information represents the best possible medication history:IncompleteAdditional comments: Will attempt to verify with pharmacy when informationavailable.Please note, medication list from [facility] lists prednisone 10 mg daily #30tablets. Unable to find pharmacy at this time to verify. Team notifiedAllergies: ALLERGIESNo Known AllergiesPreferred Pharmacy: UnknownCurrent [facility] Medications:Prior to Admission medications as of 06/21/17 1712Medication Sig Last Dose Takinglisinopril (ZESTRIL, PRINIVIL) 20 mg tablet Take 20 mg by mouth once daily. Yespravastatin (PRAVACHOL) 40 mg tablet Take 40 mg by mouth once daily. Yesipratropium-albuterol (COMBIVENT RESPIMAT) 20-100 mcg/actuation mist Inhale 1Inhalation as instructed four times daily. Yesaspirin 81 mg chewable tablet Take 81 mg by mouth once daily. Yesbudesonide-formoterol (SYMBICORT) 160-4.5 mcg/actuation inhaler Inhale 1 Puff asinstructed twice daily. Yesranitidine (ZANTAC) 150 mg tablet Take 150 mg by mouth twice daily. YesguaiFENesin (MUCINEX) 600 mg 12 hr tablet Take 1,200 mg by mouth twice daily.YespredniSONE (DELTASONE) 10 mg tablet Take 10 mg by mouth once daily. Yescarvedilol (COREG) 6.25 mg tablet Take 6.25 mg by mouth twice daily with meals.Yesfurosemide (LASIX) 40 mg tablet Take 40 mg by mouth twice daily. Neil ADRDEN, PHARMACISTFebruary 2017 5:13 PMPrevious Anuja De Jesus MD, 06/21/2017 5:14 PM Isac Osborne MD 06/21/2017 5:20 PM SignedBEDSIDE PROCEDURE NOTEPROCEDURE DATE: June 21, 2017PROCEDURE START TIME: 4:30 PMPRIMARY PROCEDURALIST: CHANDLER RichterISTANT(S): NoneINFORMED CONSENT: Due to emergent situation informed consent was not obtainedUNIVERSAL PROTOCOL / SAFETY CHECKLISTSign in Communication: Emergent N/ATime Out: Team Confirms the Correct Patient, Correct Procedure, Correct Siteand Site Marking, Correct Position (if applicable), Prep and Dry Time (ifapplicable). Time: NAAffirmation of Time Out: N/ASign Out Discussion: CompletedPROCEDURE: ARTERIAL CATHETER INSERTIONLine/Indication: Single lumen for Monitoring of vital bodily functions (BP, pH,paO2, paCO2)Anesthesia/Sedation: Local; lidocaine 1%Insertion Site: Left radial arteryArea Prep: Chlorhexidine gluconateTechnique Used to Place Line: Modified SeldingerUltrasound was used to visualize a patent artery prior to the start of theprocedure. The vessel was cannulated under direct ultrasound visualization witha 20 gauge catheter on the first attempt. A straight-tipped spring wire waspassed into the artery through the indwelling catheter and left in situ whilethe catheter was advanced. The catheter was left in situ while the guidewire wasremoved.Pulsatile blood flow exited the catheter and an arterial waveform was noted onthe monitor when the catheter was transduced. The catheter was secured in placewith sterile sutures. A sterile dressing was applied and dated.All catheters, needles and/or wires were accounted for and intact: Yes.Patient tolerated procedure well.Complications: NoneNo Specimens Collected Unless Noted HereEstimated Blood Loss: NoneSIGNATURE: Aquiles Osborne MD PATIENT NAME: Cristina MooreTE: June 21, 2017 : 5:19 PMAttending addendumI was present for the rivera parts of the procedure.Miguel Ross MD 06/21/2017 5:54 PM Cosign NeededHISTORY AND PHYSICAL EXAMINATION / CONSULTATION NOTESERVICE DATE: 06/21/2017SERVICE TIME: 5:45 PMPRIBANNER ESTRELLA MEDICAL CENTERY CARE PHYSICIAN: Bipin Perez Chi COMPLAINT: UGI bleedHPI: This is a 71 year old [facility]. He has received 6u prbc at this point and has had ~3.5L outputfrom his NG tube which is black in color. The patient has a known drinkinghistory however due to intubation the history is not completely obtainable. Fromthe records and primary team the pt has a history of HTN COPD and etoh abuse.There is a remote history of a possible copd vs pna exacerbation recently andthe patient was placed on prednisone as an outpatient. Unknown history of Nsaiduse.Last admit - noneFUNCTIONAL STATUS: unknownNo past medical history on file.No past surgical history on file.No family history on file.Social HistorySubstance Use Topics- Smoking status: Not on file- Smokeless tobacco: Not on file- Alcohol use Not on filePrescriptions Prior to Admission:lisinopril (ZESTRIL, PRINIVIL) 20 mg tablet Take 20 mg by mouth once daily.Disp: Rfl:pravastatin (PRAVACHOL) 40 mg tablet Take 40 mg by mouth once daily. Disp: Rfl:ipratropium-albuterol (COMBIVENT RESPIMAT) 20-100 mcg/actuation mist Inhale 1Inhalation as instructed four times daily. Disp: Rfl:aspirin 81 mg chewable tablet Take 81 mg by mouth once daily. Disp: Rfl:budesonide-formoterol (SYMBICORT) 160-4.5 mcg/actuation inhaler Inhale 1 Puff asinstructed twice daily. Disp: Rfl:ranitidine (ZANTAC) 150 mg tablet Take 150 mg by mouth twice daily. Disp: Rfl:guaiFENesin (MUCINEX) 600 mg 12 hr tablet Take 1,200 mg by mouth twice daily.Disp: Rfl:predniSONE (DELTASONE) 10 mg tablet Take 10 mg by mouth once daily. Disp: Rfl:carvedilol (COREG) 6.25 mg tablet Take 6.25 mg by mouth twice daily with meals.Disp: Rfl:furosemide (LASIX) 40 mg tablet Take 40 mg by mouth twice daily. Disp: Rfl:ALLERGIESNo Known AllergiesCOMPLETE REVIEW OF SYSTEMS:See HPIObjectivePHYSICAL EXAM:GENERAL: intubated, fighting vent.SKIN: Skin color, texture, turgor normal. No rashes or lesions.LUNGS: Unlabored breathing on O2 Therapy: Ventilator on sating at SpO2: (!) 70%CARDIAC: Regular rate and rhythm as above,ABDOMEN: Soft, non-tender, No masses, hepatosplenomegaly, No lymphadenopathyEXTREMITIES: ROM of all joint grossly normal: strength grossly normalbilaterally. No deformities noted.WOUND: not applicableNG in place with black output.BP 96/36 Pulse 88 Temp 94.3 Resp 21 SpO2 70%Temp (24hrs), Av.2 ?C (95.3 ?F), Min:34 ?C (93.2 ?F), Max:36 ?C (96.8 ?F)There is no height or weight on file to calculate BMI.DATA:Diagnostic tests reviewed for today's visit:Recent Results (from the past 48 hour(s))-RBC PRODUCTS (AK,AV,EU,FV,HL,GERRY,MM,SP) *Canceled*Collection Time: 06/21/17 12:00 AMNarrativeORDER was CANCELLED on 06/21/2017 at 16:50 by [facility]. Duplicate order-FROZEN PLASMA (AK,AV,EU,FV,HL,GERRY,MM,SP) *Canceled*Collection Time: 06/21/17 12:00 AMNarrativeORDER was CANCELLED on 06/21/2017 at 16:50 by [facility]. Duplicate order-PROTHROMBIN TIME / PT (AK,AV,EU,FV,HL,GERRY,MM,SP)Sarah ection Time: 06/21/17 3:00 PMResult Value Ref RangeProthrombin Time 11.9 9.3 - 11.9 secINR 1.15-CBC + AUTO DIFF (AK,AV,EU,FV,HL,GERRY,MM,SP)Sarah ection Time: 06/21/17 3:00 PMResult Value Ref RangeWBC 27.76 (HH) 4.23 - 9.07 thou/cmmRBC 2.39 (L) 4.63 - 6.08 mil/cmmHGB 7.7 (L) 13.7 - 17.5 g/dLHematocrit 22.4 (L) 40.1 - 51.0 %MCV 93.7 83.2 - 95.6 flMCH 32.2 25.7 - 32.2 pgMCHC 34.4 32.3 - 36.5 %RDW 14.2 11.6 - 14.4 %RDW-SD 48.3 (H) 36.1 - 45.8 flPlatelet Count 233 141 - 365 thou/cmmMPV 10.6 8.7 - 12.0 flNucleated RBC % 0.3 (H) 0.0 - 0.2 %Nucleated RBC Absolute 0.09 (H) 0.00 - 0.01 thou/cmmSeg Neutrophil 81.0 %Lymphocyte 15.0 %Monocyte 3.0 %Eosinophil 0.0 %Basophil 0.0 %Metamyelocytes 1.0 %Seg. Neut. # 22.49 (H) 1.78 - 5.38 thou/cmmImmat Grans Abs Calc 0.28Lymphocyte # 4.16 (H) 0.84 - 2.85 thou/cmmMonocyte # 0.83 (H) 0.30 - 0.82 thou/cmmEosinophil # 0.00 (L) 0.04 - 0.54 thou/cmmBasophil # 0.00 (L) 0.01 - 0.08 thou/cmmRBC Morphology PresentAnisocytosis SlightPolychromasia Few-TYPE + SCREEN (AK,AV,EU,FV,HL,GERRY,MM,SP)Sarah ection Time: 06/21/17 3:00 PMResult Value Ref RangeABO Group ARH Type PositiveAntibody Screen NEGATIVEComment: See Below-LACTIC ACID / LACTATE (AK,AV,EU,FV,HL,GERRY,MM,SP)Sarah ection Time: 06/21/17 3:00 PMResult Value Ref RangeLactic Acid 4.5 (HH) 0.4 - 2.0 mEq/L-VENOUS BLOOD GASES B/O (LD)Collection Time: 06/21/17 3:00 PMResult Value Ref RangeTemp 37.0pH, Venous 7.397 7.320 - 7.751vRK1, Venous 59.3 (H) 38.0 - 49.0 mm HgpO2, Venous 46.6 (H) 35.0 - 45.0 mm HgHCO3 BG 35.7 (H) 22.0 - 26.0 mEq/LBase Excess 9.6 -2.5 to 2.5 mEq/LO2% SAT VENOUS 74.2 70.0 - 80.0 %-PLATELETS (AK,AV,EU,FV,HL,GERRY,MM,SP)Sarah ection Time: 06/21/17 3:11 PMResult Value Ref RangePheresed Plts unit 1 Done-RBC PRODUCTS (AK,AV,EU,FV,HL,GERRY,MM,SP)Sarah ection Time: 06/21/17 3:12 PMResult Value Ref RangeXmatch Unit 1 see belowXmatch Unit 2 see belowXmatch Unit 3 see belowXmatch Unit 4 see belowXmatch Unit 5 see below-TYPE + SCREEN (AK,AV,EU,FV,HL,GERRY,MM,SP) *Canceled*Collection Time: 06/21/17 3:49 PMNarrativeTEST Type and Screen WAS CANCELLED on 06/21/2017 at 15:49 by [facility]. Duplicateorder-FROZEN PLASMA (AK,AV,EU,FV,HL,GERRY,MM,SP)Sarah ection Time: 06/21/17 3:49 PMResult Value Ref RangeFFP unit 1 DoneFFP unit 2 DoneFFP unit 3 DoneFFP unit 4 DoneFFP unit 5 Done-RBC PRODUCTS (EU,FV,HL,GERRY,MM,SP)Collection Time: 06/21/17 4:39 PMResult Value Ref RangeXmatch Unit 1 see belowXmatch Unit 2 see below-RBC PRODUCTS (EU,FV,HL,GERRY,MM,SP)Collection Time: 06/21/17 5:13 PMResult Value Ref RangeXmatch Unit 1 see belowXmatch Unit 2 see belowXmatch Unit 3 see belowXmatch Unit 4 see belowXmatch Unit 5 see below-PLATELETS (EU,FV,HL,GERRY,MM,SP)Collection Time: 06/21/17 5:20 PMResult Value Ref RangePheresed Plts unit 1 Done-FROZEN PLASMA (EU,FV,HL,GERRY,MM,SP)Collection Time: 06/21/17 5:20 PMResult Value Ref RangeFFP unit 1 DoneFFP unit 2 DoneFFP unit 3 DoneFFP unit 4 DoneFFP unit 5 Done]Assessment/PlanThis is a 71 year old male who presents with UGI bleed-Gi to perform endoscopy-surgery will be on standby if needed-d/w dr lobo.SIGNATURE: Jaren Godfrey MD PATIENT NAME: Cristina JeffreyDATE: June 21, 2017 : 5:45 PM PAGER/CONTACT #: [phone] Joshi RN, RN 06/21/2017 5:49 PM Signed Nursing Progress: Topic: RESTRAINT NON-VIOLENTPATIENT NAME: Cristina JeffreyMRN: [id number] LOCATION: [place] [address] [address]*The patient demonstrates as evidenced by the following behaviors attempts tosit up in bed, pull out Et tube, not able to be redirected at this time whichpose an imminent danger to self or others.The following interventions were attempted but were not effective in protectingthe patient's safety:Next, a comprehensive assessment was performed and warranted placing the patientin , the least restrictive restraint needed to protect the patient's safety.Ongoing safety assessments and evaluation for earliest removal of restraintswill be performed.DATE: June 21, 2017TIME: 5:49 PMANila Mckenna MD 06/21/2017 7:15 PM SignedCONSULT: GASTROENTEROLOGY SERVICESERVICE DATE: 01/28/2017SERVICE TIME: 7:03 PMREASON FOR CONSULT: acute upper GI bleedingREQUESTING PHYSICIAN: Dr. KimbleKAISER SOUTH SAN FRANCISCO MEDICAL CENTERseth Jeffrey is a 71 year old with a history of COPD, HTN, HLD, and aquestionable history of alcohol abuse who presented to [facility] with dyspnea whoreceived a breathing treatment and then became increasingly altered. He waasfound to be AANDOx1, hypotensive and believed to be in hypovolemic/hemorrhagicshock from a GI bleed. He received 2L NS and 1 unit of pRBC. He has no activesigns of bleeding, but a recent history of melena.?He is brought here to the ICU by EMS only arousable to sternal rub. His initialBP's were 60's/40's and tachycardic to the 120's. An OG was placed andimmediately revealed black fluid. Patient was immediately intubated for airwayprotection. NG tube aspiration of close to 3 liters of bloody dark material.FUNCTIONAL STATUS: IndependentNo past medical history on file.No past surgical history on file.No family history on file.Current Facility-Administered Medications:potassium chloride 80-120 mEq oral liquid 80-120 mEq ORAL/FEEDING TUBE PRNDenise Myra (Res) Sesepotassium chloride iv piggyback 20 mEq in sterile water 100 mL 60-120 mEqINTRAVENOUS PRN Chula Myra (Res) Sesemagnesium sulfate in water 2 g in sterile water 50 ml 2 g INTRAVENOUS PRN DeniseGabrielle (Res) Sesesodium phosphate 45 mmol in NaCl 0.9% 250 mL 45 mmol INTRAVENOUS PRN DeniseGabrielle (Res) Sesecalcium gluconate 4 g in NaCl 0.9% 250 mL 4 g INTRAVENOUS PRN Chula Myra(Res) Sesepantoprazole 40 mg injection (PROTONIX) 40 mg INTRAVENOUS q 12 HR DeniseGabrielle (Res) SeseFollowed by[START ON 2017] pantoprazole 40 mg injection (PROTONIX) 40 mg INTRAVENOUSDAILY (6 AM) Chula Myra (Res) Seseketamine 100 mg injection (KETALAR) 100 mg INTRAVENOUS ONCE Chula Myra(Res) Murieleoctreotide 500 mcg in D5W 100 mL (SandoSTATIN) 50 mcg/hr INTRAVENOUS CONTINUOUSHelen (Res) Luis F Last Rate: 10 mL/hr at 06/21/17 1611 50 mcg/hr at 06/21/17 1611NORepinephrine 16 mg in D5W 250 mL (LEVOPHED) 0.6-50 mcg/min INTRAVENOUSCONTINUOUS Charis (Res) Luis F Stopped at 06/21/17 1844fentaNYL iv infusion 20 mcg/mL in NaCl 0.9% 100 mL 25 mcg/hr INTRAVENOUSCONTINUOUS Charis (Res) Luis F Last Rate: 1.25 mL/hr at 06/21/17 1740 25 mcg/hr at06/21/17 1740propofol infusion (DIPRIVAN) 5-50 mcg/kg/min (Order-Specific) INTRAVENOUSCONTINUOUS Charis (Res) Luis F Last Rate: 21 mL/hr at 06/21/17 1845 50 mcg/kg/min at06/21/17 1845Chlorhexidine Gluconate 0.12 % 15 mL (PERIDEX) 15 mL ORAL q 12 H Charis (Res) Bullperacillin-tazobactam 3.375 g in dextrose (iso-osmotic) 50 mL (ZOSYN) 3.375 gINTRAVENOUS q 8 H Charis (Res) JuliaNo Known AllergiesFully Assessed 06/21/17COMPLETE REVIEW OF SYSTEMS:PAIN ASSESSMENT: Negative for painGENERAL: No weight loss, malaise or feversHEAD AND NECK: No headache, swollen glandsPULMONARY: No cough, wheezing, dyspnea on exertion, or shortness of breathCARDIOVASCULAR: No chest pain, palpitationsABDOMINAL: Per HPINEUROLOGIC: No dizziness, lightheadedness, or weaknessOPHTHALMOLOGIC: No visual abnormalitiesMUSCULOSKELETAL: No pain, weakness, or leg swellingSKIN: No rashOBJECTIVEPHYSICAL EXAM: 06/21/18175BP: 112/58 128/51Pulse: 75 76 77 83Resp: 19Temp: (!) 34.7 ?C (94.5 ?F) (!) 34.8 ?C (94.6 ?F) (!) 35.3 ?C (95.5 ?F) (!) 35.6?C (96.1 ?F)SpO2: 99% 98% 100%GENERAL: Pt. Heavily sedated for ET intubation . Unable to communicateHEENT: PERRLA, normocephalic, no thyromegaly, no lymphadenopathy, tracheacentrally locatedCHEST: Clear to auscultation and percussion bilaterally. On ventCVS: RRR, hypotensive prior to Resuscitative IV fluids and bloodABD: Distended, tympaniticNEURO: Cranial nerves intact, no lateralizing neurologic signs, irritable onphysical stimuliMSK: No wasting, no weaknessEXT: No edema, no deformitySKIN: No jaundice, no rashDATA:Diagnostic tests reviewed for today's visit: BUN- 94, Cr-1.45Liver profile Nl.Hgb-7.7, WBC-27,000Most recent labs and imaging results.IMPRESSIONAcute brisk Upper GI bleeding, cause ?Hemorrhagic shockRenal insufficiencyLeukocytosisRECO MMENDATION/PLAN1. Emergency EGD2. Agree with resuscitative measures3. Octreotide IVDiscussed with critical care serviceD/W surgery service D/W nursing staff and famiklySIGNATURE: Sagar Dominguez MD PATIENT NAME: Cristina MooreTE: 06/21/17 : 7:03 PMSagar Dominguez MD 06/21/2017 7:25 PM IncompleteBRIEF OPERATIVE / PROCEDURE NOTELOG ID: [id number]/PROCEDURE DATE: 06/21/2017SURGEON(S)/PROCEDURA LIST(S) AND CONFIGURATION MANAGEMENT CONSULTANT(S): Sagar Dominguez - PrimaryendoscopistINDICATION: Acute brisk upper GI bleedingPRE-OP/PRE-PROCEDURE DIAGNOSIS: Same, cause unknownPOST-OP/POST-PROCEDURE DIAGNOSIS: 1. Multiple antral gastric ulcers, largestulcer measures 2.5 x 1 cm with a visible vessel bleeder A large prep[yloriculcerPROCEDURE(S): upper endoscopy with endo clip placement x4 a, epinephrineinjection and antral Bxs for H.pylori.ANESTHESIA: MACFINDINGS: As aboveESTIMATED BLOOD LOSS: NoneSPECIMENS: antral and body of stomach BxsCOMPLICATIONS: NonePOST-PROCEDURE RECOMMENDATIONS/FOLLOW UP: 2nd look EGd in near futureSIGNATURE: Sagar Dominguez MD PATIENT NAME: Cristina MooreTE: 06/21/2017 : Db Quick MD 06/21/2017 8:45 PM SignedCRITICAL CARE PROGRESS NOTESERVICE DATE: June 21, 2017SERVICE TIME: 8:37 PMAdmission Date: 06/21/2017AGE: 71 year oldLOS: 0 daysREASON FOR ICU ADMISSION:ACTIVE PROBLEM LISTShock (Hcc)Copd (Chronic Obstructive Pulmonary Disease) (Hcc)HypertensionAtrial Fibrillation (Hcc)HyperlipidemiaSubjective Patient is resting comfortably in bed while sedated and intubated/on theventilator without any current distress.ObjectiveVITAL SIGNS (last 24hrs min/max):Temp Av.2 ?C (95.3 ?F) Min: 34 ?C (93.2 ?F) Max: 36.1 ?C (97 ?F)Pulse Av.3 Min: 74 Max: 117Cuff BP Min: 74/28 Max: 156/115Pain Score: 09/1023 hour Intake AND Output:Intake/Output Summary (Last 24 hours) at 06/21/172036Last data filed at 06/21/171956 Gross per 24 hourIntake 5218.5 mlOutput 3700 mlNet 1518.5 mlPHYSICAL EXAM:COOK APPRENTICE: Intubated, SedatedFeeding Tube: Yes. Orogastric tubeEyes: PERNeck: Unremarkable; No adenopathy or JVDCardiovascular: Regular rhythmRespiratory: Few scattered crackles bilaterally anteriorly.Abdomen: Soft, distended, Nontender and Positive bowel soundsExtremities: Edema- NoSkin: Abnormalities- NoVENTILATOR INFORMATION:WEANING DATA:Settings: Invasive Ventilator Mode: Pressure Regulated Volume Control (06/21/171932) %FIO2: 100 Set Ventilator Respiratory Rate (BPM): 16 Tidal Volume Set (mL): 400 PEEP/CPAP (cm H2O): 5Patient Data: Inspiratory:Expiratory Ratio: 1:2.8 Peak Inspiratory Pressure (cm H2O): 14 Plateau Pressure (cm H2O): 12 (comp = 59, resist = 13)INPATIENT MEDICATIONS:Current hospital medications:potassium chloride 80-120 mEq oral liquid 80-120 mEq ORAL/FEEDING TUBE PRNpotassium chloride iv piggyback 20 mEq in sterile water 100 mL 60-120 mEqINTRAVENOUS PRNmagnesium sulfate in water 2 g in sterile water 50 ml 2 g INTRAVENOUS PRNsodium phosphate 45 mmol in NaCl 0.9% 250 mL 45 mmol INTRAVENOUS PRNcalcium gluconate 4 g in NaCl 0.9% 250 mL 4 g INTRAVENOUS PRNpantoprazole 40 mg injection (PROTONIX) 40 mg INTRAVENOUS q 12 HR[START ON 2017] pantoprazole 40 mg injection (PROTONIX) 40 mg INTRAVENOUSDAILY (6 AM)ketamine 100 mg injection (KETALAR) 100 mg INTRAVENOUS ONCEoctreotide 500 mcg in D5W 100 mL (SandoSTATIN) 50 mcg/hr INTRAVENOUS CONTINUOUSNORepinephrine 16 mg in D5W 250 mL (LEVOPHED) 0.6-50 mcg/min INTRAVENOUSCONTINUOUSfentaNYL iv infusion 20 mcg/mL in NaCl 0.9% 100 mL 25 mcg/hr INTRAVENOUSCONTINUOUSpropofol infusion (DIPRIVAN) 5-50 mcg/kg/min (Order-Specific) INTRAVENOUSCONTINUOUSChlorhex idine Gluconate 0.12 % 15 mL (PERIDEX) 15 mL ORAL q 12 Hpiperacillin-tazobactam 3.375 g in dextrose (iso-osmotic) 50 mL (ZOSYN) 3.375 gINTRAVENOUS q 8 HDATA:BLOOD GAS:Recent Labs 06/21/1814VPH -- 7.053QHT8 -- 59.3*VPO2C -- 46.6*RESPHCO3 28.6* 35.7*BASEX -- 9.0X4PBTGJZ -- 74.2PH 7.336* --PCO2 54.7* --S4XSUAUZ 99.4* --CBC:Recent Labs WBC 27.76*HB 7.7*HCT 22.4*PLT 233MCV 93.7COAG:Recent Labs INR 1.15BMP:Recent Labs GLUC 170*NA 140K 4.2CHLOR 100CO2 30ANION 14BUN 94*CREAT 1.45*CHEM:Recent Labs ALB 2.3*TPROT 4.6*CA 7.1*HEPATIC:Recent Labs [id number] 41*ALT 44AST 34TBILI 1.1*URINALYSIS:Recent Labs PH 7.336*Assessment/PlanASSESSME NT:ACTIVE PROBLEM LISTShock (Hcc)Copd (Chronic Obstructive Pulmonary Disease) (Hcc)HypertensionAtrial Fibrillation (Hcc)HyperlipidemiaAcute blood loss anemiaHemorrhagic shockAcute hypoxic respiratory failurePLAN:Found to have multiple antral and pyloric ulcers including one with a visiblevessel on EGD this evening as per Dr. Dominguez (GI) with whom I spoke outside of thepatient's room in the ICU.Continue full ventilator support.Hemodynamically stable without pressors or high rate IV fluids.Continue octretide drip and IV PPI as per GI.Check INR after FFP transfusion.Check serial hemoglobins.Transfuse PRN.Keep NPO.This patient has a high probability of sudden, clinically significantdeterioration, which requires the highest level of physician preparedness tointervene urgently. I managed/supervised life or organ supporting interventionsthat required frequent physician assessment. I devoted my full attention to thedirect care of this patient for the amount of time indicated below. Time Ispent with family or surrogate(s) is included only if the patient was incapableof providing the necessary information or participating in medical decisionmaking. Time devoted to teaching and to any procedures I billed separately isnot included.PROGNOSIS: GuardedCode status: Full Code.Discussed with Registered Nurse.Critical Care Documentation: The patient has the following organ/systemimpairment(s): Respiratory failure (Acute, with Hypoxemia)Time spent providing critical care services: 40 minutes.SIGNATURE: Noe Quick [facility] RESPIRATORY INSTITUTEPAGER:[id number] of SERVICE: June 21, 2017TIME of SERVICE: 8:37 PMDaChaplain Raines Chaplain 06/21/2017 9:42 PM Signed SPIRITUALCARESpiritual Care Visit- Brief NoteName: Cristina JeffreyMRN: [id number]: June 21, 2017Notes: Resident physician had appliance service representative paged to offer support for Pt's familywho were waiting in MICU Consult room. Hydraulic Rockbreaker Operator introduced himself and role/availability to Pt's family. Family stated they were aware of the seriousness ofPt's condition and requested prayers. Hydraulic Rockbreaker Operator confirmed how difficult thesituation is and encouraged focus on present. Hydraulic Rockbreaker Operator provided spiritualcomfort/compassion and prayers as desired. Family grateful for SC and chaplainsavailability. Hydraulic Rockbreaker Operator encouraged family to notify staff if he could be offurther service in any way. Hydraulic Rockbreaker Operator to remain available. Chaplai n Signature: Consuelo Rogers contact the Spiritual Care Department:Please call [phone] or Page the On-Call Hydraulic Rockbreaker Operator at pager [phone] you for the opportunity to be of service.This is an electronically created document.IF PRINTED, PLEASE DO NOT REMOVE FROM THE CHART OR MODIFY PRINTED COPY.Samantha Dick, RN, RN 06/21/2017 9:54 PM Signed Nursing Progress: Topic: RESTRAINT NON-VIOLENTPATIENT NAME: Cristina JeffreyMRN: [id number] LOCATION: [place] [address]/[place] [address]*The patient demonstrates Attempting to Remove Medical Devices Vital to MedicalStability, Lack of Understanding/Ability to Comply with Safety Directions asevidenced by the following behaviors intubated, not following commands, reachingfor OETT with BUE which pose an imminent danger to self or others.The following interventions were attempted but were not effective in protectingthe patient's safety: Alarms, Bed in Low/Locked Position, Call Light WithinReach, IV/Feeding Bag/Pump Out of Vision, Medications Reviewed, ModifyEnvironment, Modify Equipment, Frequent ObservationNext, a comprehensive assessment was performed and warranted placing the patientin Soft Bilateral Wrists, the least restrictive restraint needed to protect thepatient's safety.Ongoing safety assessments and evaluation for earliest removal of restraintswill be performed.DATE: June 21, 2017TIME: 9:54 Michelle Pereira MD 06/22/2017 6:21 AM Cosign NeededTrauma Surgery Progress NoteSERVICE DATE: 06/22/2017SUBJECTIVE:No overnight events. BP stable. NGT w/ coffee-ground output. Weaningsedation.Tolerating dietOBJECTIVE:Vitals:Temp (24hrs), Av.6 ?C (96.1 ?F), Min:34 ?C (93.2 ?F), Max:36.8 ?C (98.2 ?F)BP 92/55 Pulse 79 Temp 36.5 ?C (97.7 ?F) Resp 20 Ht 177.8 cm (5' 10") Wt 101.1 kg (222 lb 14.2 oz) SpO2 98% BMI 31.98 kg/m2O2 Therapy: VentilatorIANDO:Date 06/21/17699 - 06/22/17 0659 06/22/17699 - 06/23/17 0659Shift 6059-2473 4532-3596 6652-4127 24 Hour Total 4200-0764 4775-4046 2300-163811 Hour TotalINTAKE IV 1218.7 939.5 2158.2 NS 0.9% 1693 932 8690 Zosyn IV 50 50 100 Potassium IVPB 200 200 Fentanyl Volume 5.6 8.8 14.4 NORepinephrine Volume 42 42 Octreotide IV 62.3 73.2 135.5 Propofol IV 58.8 107.5 166.3 Blood Products 4148 4148 PRBC Intake (mL) 2400 2400 Platelet mL 200 200 FFP mL 1541 1541 Packed Red Blood Cells Number of Units 1 1 Platelets Number of Units 1 1 Fresh Frozen Plasma Number of Units 5 5 Other Amount Wasted PRBC 0 mL 0 mL Shift Total 5366.7 939.5 6306.2OUTPUT Urine 8740 212 4017 Tube Output ( Indwelling Urinary Catheter 06/21/17 1500 Assessment Foley16 Fr) 8221 215 2846 Tubes 3200 0 3200 Output ([REMOVED] GI Feed/Drain 06/21/17 1500 Admission to HospitalNasogastric Right Naris 06/21/17 1839) 3000 3000 Output (GI Feed/Drain 06/21/17 2000 Oral Gastric Midline 16 Fr) 200 0 200 Other Amount Wasted Platelets 0 mL 0 mL Amount Wasted Fresh Frozen Plasms 0 mL 0 mL # of BMs Number of BMs 0 x 0 x 0 x Shift Total 4360 920 5280Weight (kg) 96 96 101.1 101.1 101.1 101.1 101.1 101.1MEDICATIONSCurrent Facility-Administered Medications:potassium chloride 80-120 mEq oral liquid 80-120 mEq ORAL/FEEDING TUBE PRNpotassium chloride iv piggyback 20 mEq in sterile water 100 mL 60-120 mEqINTRAVENOUS PRNmagnesium sulfate in water 2 g in sterile water 50 ml 2 g INTRAVENOUS PRNsodium phosphate 45 mmol in NaCl 0.9% 250 mL 45 mmol INTRAVENOUS PRNcalcium gluconate 4 g in NaCl 0.9% 250 mL 4 g INTRAVENOUS PRNpantoprazole 40 mg injection (PROTONIX) 40 mg INTRAVENOUS q 12 HRoctreotide 500 mcg in D5W 100 mL (SandoSTATIN) 50 mcg/hr INTRAVENOUS CONTINUOUSNORepinephrine 16 mg in D5W 250 mL (LEVOPHED) 0.6-50 mcg/min INTRAVENOUSCONTINUOUSfentaNYL iv infusion 20 mcg/mL in NaCl 0.9% 100 mL 25 mcg/hr INTRAVENOUSCONTINUOUSpropofol infusion (DIPRIVAN) 5-50 mcg/kg/min (Order-Specific) INTRAVENOUSCONTINUOUSChlorhex idine Gluconate 0.12 % 15 mL (PERIDEX) 15 mL ORAL q 12 Hpiperacillin-tazobactam 3.375 g in dextrose (iso-osmotic) 50 mL (ZOSYN) 3.375 gINTRAVENOUS q 6 HLabs:Recent Labs 06/21/1819NA 140 -- 140 --K 3.4* -- 4.2 --CHLOR 100 -- 100 --CO2 37* -- 30 --BUN 81* -- 94* --CREAT 1.30* -- 1.45* --GLUC 115* -- 170* --ANION 6* -- 14 --CA 7.7* -- 7.1* --ALB -- -- 2.3* --AST -- -- 34 --ALT -- -- 44 --ALKPHOS -- -- 41* --TBILI -- -- 1.1* --WBC 18.72* -- -- 27.76*HB 12.2* 12.6* -- 7.7*HCT 34.5* -- -- 22.4*PLT 138* -- -- 233LACT -- -- -- 4.5*INR -- 1.08 -- 1.15PH -- -- 7.336* --PCO2 -- -- 54.7* --PO2 -- -- 291.5* --BE -- -- 1.9 --Exam:GENERAL: No distress, intubated/sedatedNEURO: intubated/sedatedHEENT: normocephalic, atraumaticLUNGS: Unlabored breathingCARDIAC: Regular rate and rhythm as aboveABDOMEN: Soft, non-distended. NGT w/ coffee-ground outputEXTREMITIES: JERONIMO, No deformities, No edemaSKIN: Skin color, texture, turgor normal, No rashes or lesionsASSESSMENT AND PLAN:71 year old male w/ UGI bleed- will follow in case surgical intervention needed for UGI bleed- cont mgmt per primary/Valentina Montiel MDGeneral Surgery Chief ResidentPromedica Fostoria [facility] 2017 6:14 [facility] #: Pager: [phone] Scott MD 06/22/2017 2:21 PM Attested -Attestation signed by Aquiles Osborne at 06/23/2017 1:38 [facility] STAFF PHYSICIAN NOTE OF PERSONAL INVOLVEMENT IN CAREI have reviewed the progress note obtained and documented by the resident and Ipersonally participated in the rivera components. I have discussed the case andmanagement of the patient's care. Please refer to my note from 06/23/2017 for myassessment and plan.SIGNATURE: Aquiles Osborne, [facility] --MICU - PROGRESS NOTESERVICE DATE: 06/22/2017SERVICE TIME: 8:17 AMAdmission Date: 06/21/2017AGE: 71 year oldLOS: 0 daysSubjectiveREASON FOR ICU ADMISSION: upper gi bleedObjectivePROBLEMS: ACTIVE PROBLEM LISTShock (Hcc)Copd (Chronic Obstructive Pulmonary Disease) (Hcc)HypertensionAtrial Fibrillation (Hcc)HyperlipidemiaNo past medical history on file.No past surgical history on file.Social History Marital status: Spouse name: Years of education: Number of children:Social History Main TopicsVITAL SIGNS (last 24hrs min/max):Temp Av.7 ?C (96.2 ?F) Min: 34 ?C (93.2 ?F) Max: 37 ?C (98.6 ?F)Pulse Av.3 Min: 74 Max: 117Arterial BP 1 Min: 67/47 Max: 171/106Cuff BP Min: 74/28 Max: 169/120Pain Score: 0/10Vital signs reviewed.BP 114/62 Pulse 82 Temp (Src) 98.6 (Axillary) Resp 22 Ht 5' 10" (1.78m) Wt 222 lb 14.2 oz (101.1kg) SpO2 99% BMI 31.98 kg/(m2).Temp (24hrs), Av.7 ?C (96.2 ?F), Min:34 ?C (93.2 ?F), Max:37 ?C (98.6 ?F)NET FLUID BALANCEIntake/Output Summary (Last 24 hours) at 06/22/17 0817Last data filed at 06/22/17 0700 Gross per 24 hourIntake 6406.2 mlOutput 5280 mlNet 1126.2 mlMEDICATIONSCurrent Facility-Administered Medications:potassium chloride 80-120 mEq oral liquid 80-120 mEq ORAL/FEEDING TUBE PRNpotassium chloride iv piggyback 20 mEq in sterile water 100 mL 60-120 mEqINTRAVENOUS PRNmagnesium sulfate in water 2 g in sterile water 50 ml 2 g INTRAVENOUS PRNsodium phosphate 45 mmol in NaCl 0.9% 250 mL 45 mmol INTRAVENOUS PRNcalcium gluconate 4 g in NaCl 0.9% 250 mL 4 g INTRAVENOUS PRNpantoprazole 40 mg injection (PROTONIX) 40 mg INTRAVENOUS q 12 HRoctreotide 500 mcg in D5W 100 mL (SandoSTATIN) 50 mcg/hr INTRAVENOUS CONTINUOUSNORepinephrine 16 mg in D5W 250 mL (LEVOPHED) 0.6-50 mcg/min INTRAVENOUSCONTINUOUSfentaNYL iv infusion 20 mcg/mL in NaCl 0.9% 100 mL 25 mcg/hr INTRAVENOUSCONTINUOUSpropofol infusion (DIPRIVAN) 5-50 mcg/kg/min (Order-Specific) INTRAVENOUSCONTINUOUSChlorhex idine Gluconate 0.12 % 15 mL (PERIDEX) 15 mL ORAL q 12 Hpiperacillin-tazobactam 3.375 g in dextrose (iso-osmotic) 50 mL (ZOSYN) 3.375 gINTRAVENOUS q 6 HLines, Drains, and Airways Line Arterial Line 06/21/17 1708 Arterial Line Left Radial less than 1 day Introducer 06/21/17 1645 Right Neck less than 1 day Peripheral 06/21/17 2139 Assessment Left Antecubital 20 Gauge less than 1 day Peripheral 06/21/17 2140 Assessment Right Antecubital 20 Gauge less than 1 day Drain GI Feed/Drain 06/21/171999 Oral Gastric Midline 16 Fr less than 1 day Indwelling Urinary Catheter 06/21/17 1500 Assessment Miranda 16 Fr less than 1day Airway Airway Endotracheal Tube 06/21/17 1545 less than 1 dayPHYSICAL EXAM PERFORMED:General:Cardiovascu lar: Regular rhythmRespiratory: Reduced breath sounds bilatAbdomen: Soft, distended; non tenderExtremities: Edema- NoNeurologic: SedatedRespiratory/Nursing Documentation:O2 Therapy: Ventilator (06/22/17 08)Invasive Ventilator Mode: Pressure Regulated Volume Control (06/22/17717)Set Ventilator Respiratory Rate (BPM): 16 (06/22/17717)Total Respiratory Rate (BPM): 18 (06/22/17717)Tidal Volume Set (mL): 400 (06/22/17717)Exhaled Tidal Volume (mL): 411 (06/22/17 0013)Minute Volume (L): 7.2 (06/22/17717)Peak Inspiratory Pressure (cm H2O): 18 (06/22/17717)PEEP/CPAP (cm H2O): 5 (06/22/17717)HEMODYNAMIC DATA: ReviewedNUTRITION:Enteral Feeds: NoNPODATA: Diagnostic tests reviewed for today's visit, films/specimens were personallyreviewed by me:Most recent labs and imaging results.LABS:Recent Labs 06/21/1819WBC 18.72* -- --RBC 4.04* -- --HB 12.2* 12.6* --HCT 34.5* -- --MCV 85.4 -- --PLT 138* -- --GLUC 115* -- 170*BUN 81* -- 94*CREAT 1.30* -- 1.45*NA 140 -- 140K 3.4* -- 4.2CHLOR 100 -- 100CO2 37* -- 30TPROT -- -- 4.6*ALB -- -- 2.3*CA 7.7* -- 7.1*ALKPHOS -- -- 41*TBILI -- -- 1.1*AST -- -- 34ALT -- -- 44PTSEC -- 11.3 --INR -- 1.08 --ABG:Recent Labs 06/21/942974ZT 7.336*PO2 291.5*PCO2 54.7*Assessment/PlanIMPRESSIO N:71 year old male with PMH of HTN, COPD, HLD, ?ETOH use presented with [facility] ED. He was transferred to [facility] MICU with Hemorrhagic shock AND Acute bloodloss anemia 2/2 UGIB. Found to have multiple antral and pyloric ulcers includingone with a visible vessel on EGD. Acute encephalopathy 2/2 above.Type 3 respiratory failure 2/2 aboveLeukocytosisAtrial Fibrillation, new onsetLactic acidosis, HAGMA?Critical Care Documentation: The patient has the following organ/systemimpairment(s): Acute blood loss1.Acute blood loss anemia 2/2 UGIB 2/2 multiple antral and pyloric ulcers2. Hemorrhagic shock3. Acute hypoxic respiratory failure4. Atrial Fibrillation, new onset5. Lactic acidosis, HAGMAMMPCRITICAL CARE PLAN:- c/w iv protonox- d/c octreotide- plan to do sbt today- iv fluidsThis patient has a high probability of sudden, clinically significantdeterioration, which requires the highest level of physician preparedness tointervene urgently. I managed/supervised life or organ supporting interventionsthat required frequent physician assessment. I devoted my full attention to thedirect care of this patient for the amount of time indicated below. Time Ispent with family or surrogate(s) is included only if the patient was incapableof providing the necessary information or participating in medical decisionmaking. Time devoted to teaching is not included.Discussed with staff/patient/familyTime spent providing critical care services: 30 minutes excluding procedures.SIGNATURE: Douglas Scott MD PATIENT NAME: Cristina JeffreyDATE: June 22, 2017 : 8:17 AMPrevious Adamaris Osborne MD 06/22/2017 11:27 AM [facility]ignedLA[facility]FF PH[facility]IC[facility] NOTE OF PERSONAL INVOLVEMENT IN CAREI have reviewed the progress note obtained and documented by the resident and Ipersonally participated in the rivera components. I have discussed the case andmanagement of the patient's care. The following comments revise or confirmrelevant rivera components of the note.IMPRESSION:71 year old male with PMH of HTN, COPD, HLD, ?ETOH use presented with [facility] ED. He was transferred to [facility] MICU with:Hemorrhagic shock AND Acute blood loss anemia 2/2 multiple antral and pyloriculcers with one visible vessel s/p clipping but await official report. Had morethan 3L blood through NGT and received multiple blood products including 13units of pRBC. Now off pressorsAcute encephalopathy 2/2 above, now sedatedType 3 respiratory failure 2/2 aboveLeukocytosis, downtrendingAtrial Fibrillation, new onset, now back in sinusAKI, likely prerenal, improvingLactic acidosis, HAGMAHypokalemiaPLAN:SAT and SBT this AM. If remains intubated would target RAAS of -1Check Hb, continue Protonix drip. D/c Octreotide, ABxKeep NPO, D51/2NS with KICU PPxThis patient has a high probability of sudden, clinically significantdeterioration, which requires the highest level of physician preparedness tointervene urgently. I managed/supervised life or organ supporting interventionsthat required frequent physician assessment. I devoted my full attention to thedirect care of this patient for the amount of time indicated below. Time Ispent with family or surrogate(s) is included only if the patient was incapableof providing the necessary information or participating in medical decisionmaking. Time devoted to teaching and to any procedures I billed separately isnot included.Critical Care Documentation: The patient has the following organ/systemimpairment(s): Acute blood loss and Respiratory failure (Acute)Time spent providing critical care services: 35 minutes.SIGNATURE: MAICO RossDATE of SERVICE: 06/22/2017TIME of SERVICE: 9:12 Chaplain Claudio Chaplain 06/22/2017 12:56 PM Signed SPIRITUALCARESpiritual Care Visit- Brief NoteName: Cristina JeffreyMRN: [id number]: June 22, 2017Notes: Follow up visit (requested by previous appliance service representative) attempted--pt busyw/staff. Silent prayer outside rm Chaplain Signature: Consuelo Pantoja contact the [facility] Department:Please call [phone] or Page the On-Call Hydraulic Rockbreaker Operator at pager [phone] you for the opportunity to be of service.This is an electronically created document.IF PRINTED, PLEASE DO NOT REMOVE FROM THE CHART OR MODIFY PRINTED COPY.Claribel Baig RN, RN 06/22/2017 3:37 PM IncompleteNursing Progress: Topic: RESTRAINT NON-VIOLENTPATIENT NAME: Cristina LeeN: [id number] LOCATION: [place] [address] [address]*The patient demonstrates Inability to Retain Information Regarding SafetyDirections as evidenced by the following behaviors pulling at endotracheal tubewhich pose an imminent danger to self or others.The following interventions were attempted but were not effective in protectingthe patient's safety: Alarms, Bed in Low/Locked Position, Call Light WithinReach, Pain/Discomfort Relief, Partial Bedrails UpNext, a comprehensive assessment was performed and warranted placing the patientin Soft Bilateral Wrists, the least restrictive restraint needed to protect thepatient's safety.Ongoing safety assessments and evaluation for earliest removal of restraintswill be performed.DATE: June 22, 2017TIME: 3:36 Leslie Baig RN {Select Nursing Progress Note Template:[id number]}Claribel Baig RN, RN 06/22/2017 3:40 PM SignedNursing Progress: Topic: RESTRAINT NON-VIOLENTPATIENT NAME: Cristina JeffreyN: [id number] LOCATION: [place] [address]The patient demonstrates Inability to Retain Information Regarding SafetyDirections as evidenced by the following behaviors pulling at endotracheal tubewhich pose an imminent danger to self or others.The following interventions were attempted but were not effective in protectingthe patient's safety: Alarms, Bed in Low/Locked Position, Call Light WithinReach, Pain/Discomfort Relief, Partial Bedrails UpNext, a comprehensive assessment was performed and warranted placing the patientin Soft Bilateral Wrists, the least restrictive restraint needed to protect thepatient's safety.Ongoing safety assessments and evaluation for earliest removal of restraintswill be performed.DATE: June 22, 2017TIME: 3:38 Leslie Baig [place] Nursing Progress: Topic: RESTRAINT NON-VIOLENTPATIENT NAME: Cristina JeffreyMRN: [id number] LOCATION: [place] [address] [address]*The patient demonstrates Inability to Retain Information Regarding SafetyDirections as evidenced by the following behaviors pull at endotracheal tubewhich pose an imminent danger to self or others.The following interventions were attempted but were not effective in protectingthe patient's safety: Alarms, Bed in Low/Locked Position, Call Light WithinReach, Pain/Discomfort Relief, Partial Bedrails UpNext, a comprehensive assessment was performed and warranted placing the patientin Soft Bilateral Wrists, the least restrictive restraint needed to protect thepatient's safety.Ongoing safety assessments and evaluation for earliest removal of restraintswill be performed.DATE: June 22, 2017TIME: 3:40 Junior Campa RN, RN 06/22/2017 3:43 PM SignedLATE ENTRY: No moderate sedation given during EGD on 05/26/17 d/t pt sedated onDiprivan gtt.KENNY DEL TORO 06/22/2017 4:09 PM SignedMEDICATION HISTORYPatient Name:Salvador JeffreyMRN: [id number]: 1945Source of history:Pharmacy records[facility] Nonadherence Identified: No barriers notedThe above information represents the best possible medication history: YesAdditional comments: Confirmed prednisone dose previously entered a tapringdose, NOT on chronic steroidsAllergies: ALLERGIESNo Known AllergiesPreferred Pharmacy: [facility] Medications:Prior to Admission medications as of 06/22/17 1607Medication Sig Last Dose Takingcarvedilol (COREG) 12.5 mg tablet Take 12.5 mg by mouth twice daily with meals.YesVit A,C,S-Daub-Kjdivo (PRESERVISION AREDS) [id number],[id number] [id number] cap Take1 capsule by mouth twice daily. Yesalbuterol (PROVENTIL) 2.5 mg /3 mL (0.083 %) nebulizer solution Use 2.5 mg vianebulizer every 4 hours as needed for Wheezing/Shortness of Breath. Yeslisinopril (ZESTRIL, PRINIVIL) 20 mg tablet Take 20 mg by mouth once daily. Yespravastatin (PRAVACHOL) 40 mg tablet Take 40 mg by mouth once daily. Yesaspirin 81 mg chewable tablet Take 81 mg by mouth once daily. Yesbudesonide-formoterol (SYMBICORT) 160-4.5 mcg/actuation inhaler Inhale 1 Puff asinstructed twice daily. Yesranitidine (ZANTAC) 150 mg tablet Take 150 mg by mouth twice daily. YesguaiFENesin (MUCINEX) 600 mg 12 hr tablet Take 1,200 mg by mouth twice daily.YespredniSONE (DELTASONE) 10 mg tablet Take 10 mg by mouth as directed. 12 daytapering dose filled 06/12/17 Yesfurosemide (LASIX) 40 mg tablet Take 40 mg by mouth twice daily. Neil DARDEN PHARMACISTPromedica Fostoria [facility] 2017 4:08 Chaplain hSaw Chaplain 06/22/2017 7:53 PM Signed SPIRITUALCARESpiritual Care Visit- Brief NoteName: Cristina JeffreyMRN: [id number]: June 22, 2017Notes: Follow up requested by previous appliance service representative. Patient semi-conscious; offeredprayer for patient. Chaplain Signature: Consuelo Steele contact the Spiritual Care Department:Please call [phone] or Page the On-Call Hydraulic Rockbreaker Operator at pager [phone] you for the opportunity to be of service.This is an electronically created document.IF PRINTED, PLEASE DO NOT REMOVE FROM THE CHART OR MODIFY PRINTED COPY.Samantha Dick, RN, RN 06/22/2017 7:41 PM Signed Nursing Progress: Topic: RESTRAINT NON-VIOLENTPATIENT NAME: Cristina JeffreyMRN: [id number] LOCATION: [place] [address] [address]*The patient demonstrates Inability to be Redirected, Inability to RetainInformation Regarding Safety Directions as evidenced by the following behaviorsintubated, attempting to reach for OETT with BUE which pose an imminent dangerto self or others.The following interventions were attempted but were not effective in protectingthe patient's safety: Alarms, Bed in Low/Locked Position, Call Light WithinReach, IV/Feeding Bag/Pump Out of Vision, Medications Reviewed, ModifyEnvironment, Modify EquipmentNext, a comprehensive assessment was performed and warranted placing the patientin Soft Bilateral Wrists, the least restrictive restraint needed to protect thepatient's safety.Ongoing safety assessments and evaluation for earliest removal of restraintswill be performed.DATE: June 22, 2017TIME: 7:41 Michelle Pereira MD 06/23/2017 7:09 AM Cosign NeededTrauma Surgery Progress NoteSERVICE DATE: 06/23/2017SUBJECTIVE:Pt now with increasing bloody output from NGT.Tolerating dietOBJECTIVE:Vitals:Temp (24hrs), Av.3 ?C (99.1 ?F), Min:36.9 ?C (98.4 ?F), Max:37.6 ?C (99.7?F)BP 112/61 Pulse 82 Temp 36.9 ?C (98.4 ?F) Resp 25 Ht 177.8 cm (5' 10") Wt 99.8 kg (220 lb 0.3 oz) SpO2 97% BMI 31.57 kg/m2O2 Therapy: VentilatorIANDO:Date 06/22/17 0700 - 06/23/17 0659 06/23/17 07 - 06/24/17 0659Shift 1420-5500 7861-4274 3327-5347 24 Hour Total 7678-2707 1949-1608 2300-380871 Hour TotalINTAKE IV 247.3 471.8 1235 1954.1 D5 0.45%NS w/20KCL 408 1121 1529 Potassium IVPB 100 100 Fentanyl Volume 4.7 4.7 Octreotide IV 79.2 79.2 Propofol IV 63.4 63.8 114 241.2 Shift Total 247.3 471.8 1235 1954.1OUTPUT Urine 1020 179 161 9211 Tube Output ( Indwelling Urinary Catheter 06/21/17 1500 Assessment Foley16 Fr) 1020 561 010 4977 Tubes 946 14 2010 1625 Output (GI Feed/Drain 06/21/17 2000 Oral Gastric Midline 16 Fr) 550 75 [id number] # of BMs Number of BMs 0 x 0 x 0 x Shift Total 1079 318 8455 3895Weight (kg) 101.1 101.1 99.8 99.8 99.8 99.8 99.8 99.8MEDICATIONSCurrent Facility-Administered Medications:dextrose 5% in NaCl 0.45% with 20 mEq/L KCl iv infusion 125 mL/hr INTRAVENOUSCONTINUOUSpotassiu m chloride 80-120 mEq oral liquid 80-120 mEq ORAL/FEEDING TUBE PRNpotassium chloride iv piggyback 20 mEq in sterile water 100 mL 60-120 mEqINTRAVENOUS PRNmagnesium sulfate in water 2 g in sterile water 50 ml 2 g INTRAVENOUS PRNcalcium gluconate 4 g in NaCl 0.9% 250 mL 4 g INTRAVENOUS PRNpantoprazole 40 mg injection (PROTONIX) 40 mg INTRAVENOUS q 12 HRpropofol infusion (DIPRIVAN) 5-50 mcg/kg/min (Order-Specific) INTRAVENOUSCONTINUOUSChlorhex idine Gluconate 0.12 % 15 mL (PERIDEX) 15 mL ORAL q 12 HLabs:Recent Labs 06/22/1820NA 140 -- -- 140 -- 140 < > --K 3.9 -- -- 3.4* -- 4.2 < > --CHLOR 106 -- -- 100 -- 100 < > --CO2 32 -- -- 37* -- 30 < > --BUN 36* -- -- 81* -- 94* < > --CREAT 0.76 -- -- 1.30* -- 1.45* < > --GLUC 123* -- -- 115* -- 170* < > --ANION 6* -- -- 6* -- 14 < > --CA 7.6* -- -- 7.7* -- 7.1* < > --ALB -- -- -- -- -- 2.3* -- --AST -- -- -- -- -- 34 -- --ALT -- -- -- -- -- 44 -- --ALKPHOS -- -- -- -- -- 41* -- --TBILI -- -- -- -- -- 1.1* -- --WBC 15.84* -- -- 18.72* -- -- -- 27.76*HB 10.4* 11.4* < > 12.2* 12.6* -- -- 7.7*HCT 31.1* -- -- 34.5* -- -- -- 22.4*PLT 138* -- -- 138* -- -- -- 233LACT -- -- -- -- -- -- -- 4.5*INR -- -- -- -- 1.08 -- -- 1.15PH -- -- -- -- -- 7.336* -- --PCO2 -- -- -- -- -- 54.7* -- --PO2 -- -- -- -- -- 291.5* -- --BE -- -- -- -- -- 1.9 -- --< > = values in this interval not displayed.Exam:GENERAL: No distress, intubated/sedatedNEURO: intubated/sedatedHEENT: normocephalic, atraumaticLUNGS: Unlabored breathingCARDIAC: Regular rate and rhythm as aboveABDOMEN: Soft, non-distended. NGT w/ coffee-ground outputEXTREMITIES: JERONIMO, No deformities, No edemaSKIN: Skin color, texture, turgor normal, No rashes or lesionsASSESSMENT AND PLAN:71 year old male w/ UGI bleed- recommend GI reevaluation for potential rescope given continued output fromNGT- will continue to follow- mgmt per primary teamPierce Montiel MDBryan [facility] Surgery Chief ResidentPromedica F[facility] 2017 7:09 [facility] #: Pager: [phone] Lopez, RN, RN 06/23/2017 7:41 AM Signed Nursing Progress: Topic: RESTRAINT NON-VIOLENTPATIENT NAME: Cristina LeeN: [id number] LOCATION: [place] [address] [address]*The patient demonstrates Confusion as evidenced by the following behaviorsreaches towards et tube and medical equipment which pose an imminent danger toself or others.The following interventions were attempted but were not effective in protectingthe patient's safety: Alarms, Bed in Low/Locked Position, Call Light WithinReach, Gauze Wrap/Sleeve IV Site, IV/Feeding Bag/Pump Out of Vision, MedicationsReviewed, Modify Environment, Modify Equipment, Frequent ObservationNext, a comprehensive assessment was performed and warranted placing the patientin Soft Bilateral Wrists, the least restrictive restraint needed to protect thepatient's safety.Ongoing safety assessments and evaluation for earliest removal of restraintswill be performed.DATE: June 23, 2017TIME: 7:40 AMPreet Dow MD 06/23/2017 2:42 PM Cosign NeededMICU - PROGRESS NOTESERVICE DATE: 06/23/2017SERVICE TIME: 8:22 AMAdmission Date: 06/21/2017AGE: 71 year oldLOS: 0 daysSubjectiveREASON FOR ICU ADMISSION: GI BleedingObjective- s/p egd which- 1600 ml dark blood from the og tube this am- developed atrial flutter during scope today- got a repeat scope today which showed previously noted and treated distalantral ulcer with 2 clips not bleeding- intermittently oozing large deep ulcer at the pyloric channel with stricturedlumen- [address] and 4 ml of 1:10,000 epinephrine injected with partialsuccessPROBLEMS: ACTIVE PROBLEM LISTShock (Hcc)Copd (Chronic Obstructive Pulmonary Disease) (Hcc)HypertensionAtrial Fibrillation (Hcc)HyperlipidemiaNo past medical history on file.No past surgical history on file.Social History Marital status: Spouse name: Years of education: Number of children:Social History Main TopicsVITAL SIGNS (last 24hrs min/max):Temp Av.3 ?C (99.1 ?F) Min: 36.8 ?C (98.2 ?F) Max: 37.6 ?C (99.7 ?F)Pulse Av Min: 75 Max: 89Arterial BP 1 Min: 100/48 Max: 162/75Cuff BP Min: 98/58 Max: 152/79Pain Score: 0/10Vital signs reviewed.BP 112/61 Pulse 81 Temp (Src) 98.2 (Axillary) Resp 26 Ht 5' 10" (1.78m) Wt 220 lb 0.3 oz (99.8kg) SpO2 100% BMI 31.57 kg/(m2).Temp (24hrs), Av.3 ?C (99.1 ?F), Min:36.8 ?C (98.2 ?F), Max:37.6 ?C (99.7?F)NET FLUID BALANCEIntake/Output Summary (Last 24 hours) at 06/23/17 0822Last data filed at 06/23/17 0738 Gross per 24 hourIntake 1943.9 mlOutput 3485 mlNet -1541.1 mlMEDICATIONSCurrent Facility-Administered Medications:dextrose 5% in NaCl 0.45% with 20 mEq/L KCl iv infusion 125 mL/hr INTRAVENOUSCONTINUOUSpotassiu m chloride 80-120 mEq oral liquid 80-120 mEq ORAL/FEEDING TUBE PRNpotassium chloride iv piggyback 20 mEq in sterile water 100 mL 60-120 mEqINTRAVENOUS PRNmagnesium sulfate in water 2 g in sterile water 50 ml 2 g INTRAVENOUS PRNcalcium gluconate 4 g in NaCl 0.9% 250 mL 4 g INTRAVENOUS PRNpantoprazole 40 mg injection (PROTONIX) 40 mg INTRAVENOUS q 12 HRpropofol infusion (DIPRIVAN) 5-50 mcg/kg/min (Order-Specific) INTRAVENOUSCONTINUOUSChlorhex idine Gluconate 0.12 % 15 mL (PERIDEX) 15 mL ORAL q 12 HLines, Drains, and Airways Line Arterial Line 06/21/17 1708 Arterial Line Left Radial 1 day Introducer 06/21/17 1645 Right Neck 1 day Peripheral 06/21/17 2139 Assessment Left Antecubital 20 Gauge 1 day Peripheral 06/21/17 2140 Assessment Right Antecubital 20 Gauge 1 day Drain GI Feed/Drain 06/21/17 2000 Oral Gastric Midline 16 Fr 1 day Indwelling Urinary Catheter 06/21/17 1500 Assessment Miranda 16 Fr 1 day Airway Airway Endotracheal Tube 06/21/17 1545 1 dayPHYSICAL EXAM PERFORMED:General:intubated,s edatedCardiovascular: Regular rhythm, tachycardicRespiratory: Clear to auscultationAbdomen: Soft and NontenderExtremities: Edema- NoNeurologic: SedatedRespiratory/Nursing Documentation:O2 Therapy: Ventilator (06/23/17712)Invasive Ventilator Mode: Pressure Regulated Volume Control (06/23/17712)Set Ventilator Respiratory Rate (BPM): 16 (06/23/17712)Total Respiratory Rate (BPM): 25 (06/23/17712)Tidal Volume Set (mL): 400 (06/23/17712)Exhaled Tidal Volume (mL): 349 (06/23/17256)Minute Volume (L): 9.9 (06/23/17712)Peak Inspiratory Pressure (cm H2O): 19 (06/23/17712)PEEP/CPAP (cm H2O): 5 (06/23/17712)HEMODYNAMIC DATA: ReviewedNUTRITION:Enteral Feeds: NoNPODATA: Diagnostic tests reviewed for today's visit, films/specimens were personallyreviewed by me:Most recent labs and imaging results.LABS:Recent Labs 06/21/1819WBC 15.84* < > -- --RBC 3.43* < > -- --HB 10.4* < > 12.6* --HCT 31.1* < > -- --MCV 90.7 < > -- --PLT 138* < > -- --GLUC 123* < > -- 170*BUN 36* < > -- 94*CREAT 0.76 < > -- 1.45*NA 140 < > -- 140K 3.9 < > -- 4.2CHLOR 106 < > -- 100CO2 32 < > -- 30TPROT -- -- -- 4.6*ALB -- -- -- 2.3*CA 7.6* < > -- 7.1*ALKPHOS -- -- -- 41*TBILI -- -- -- 1.1*AST -- -- -- 34ALT -- -- -- 44PTSEC -- -- 11.3 --INR -- -- 1.08 --< > = values in this interval not displayed.ABG:Recent Labs PH 7.336*PO2 291.5*PCO2 54.7*Assessment/PlanIMPRESSIO N:Critical Care Documentation: The patient has the following organ/systemimpairment(s): Acute blood loss1.1.Acute blood loss anemia 2/2 UGIB 2/2 multiple antral and pyloric ulcers s/pclips2. Hemorrhagic shock3. Acute hypoxic respiratory failure4. Atrial Flutter, 2:1 Block new onset5. Lactic acidosis, HAGMAMMPCRITICAL CARE PLAN:- s/p upper gi endoscopy s/p clips- consulted IR for possible embolization since intermittently oozing large deepulcer.- continue mechanical ventilation- on cardizem gtt for atrial flutter ; target hr <110- hgb t8ltLerb patient has a high probability of sudden, clinically significantdeterioration, which requires the highest level of physician preparedness tointervene urgently. I managed/supervised life or organ supporting interventionsthat required frequent physician assessment. I devoted my full attention to thedirect care of this patient for the amount of time indicated below. Time Ispent with family or surrogate(s) is included only if the patient was incapableof providing the necessary information or participating in medical decisionmaking. Time devoted to teaching is not included.Discussed with staff/patient/familyTime spent providing critical care services: 30 minutes excluding procedures.SIGNATURE: Douglas Scott MD PATIENT NAME: Cristina JeffreyDATE: June 23, 2017 : 8:22 AMPrevious Radha Lopez, RN, RN 06/23/2017 11:24 AM AddendumDr Dominguez at bedside for egd. Sister javi spoke to over phone for consent by Elizabeth and RN. EGD began at 0940, upon the start pts heart rate increased into [id number]'s 160'd, Dr Cole notified and arrived at bedside. Procedure stopped [id number] because dr dominguez required different equipment to finish procedure. Ptmedicated at 1005. Procedure began once again at 1010. Respiratory notifiedthat stat ekg ordered, and obtained after egd procedure.Previous Dereje Dominguez MD 06/23/2017 11:21 AM SignedBRIEF OPERATIVE / PROCEDURE NOTELOG ID: [id number]/PROCEDURE DATE: 06/23/2017SURGEON(S)/PROCEDURAL IST(S) AND CONFIGURATION MANAGEMENT CONSULTANT(S): Sagar Dominguez - PrimaryendoscopistINDICATION: Recurrence of UGI bleedingPRE-OP/PRE-PROCEDURE DIAGNOSIS: Bleeding GUPOST-OP/POST-PROCEDURE DIAGNOSIS: samePROCEDURE(S): upper endoscopyANESTHESIA: Conscious SedationFINDINGS: 1. NG trauma induced mucosal tear 2. Multiple antral ulcers 3.Previously noted and treated distal antral ulcer with 2 clips not bleeding 4.Intermittently oozing large deep ulcer at th pyloric channel with stricturedlumen- [address] and 4 ml of 1:10,000 epinephrine injected with partialsuccess5. Normal duodenumESTIMATED BLOOD LOSS: 100 mlSPECIMENS: noneCOMPLICATIONS: NonePOST-PROCEDURE RECOMMENDATIONS/FOLLOW UP: May consider surgical intervention ifbleeding continues 2. Transfuse to maintain Hgb > 8 gm D #[id number]: Sagar Dominguez MD PATIENT NAME: Cristina JeffreyDATE: 06/23/2017 : Akin Osborne MD 06/23/2017 12:11 PM AddendumCC STAFF PHYSICIAN NOTE OF PERSONAL INVOLVEMENT IN CAREI have reviewed the progress note obtained and documented by the resident and Ipersonally participated in the rivera components. I have discussed the case andmanagement of the patient's care. The following comments revise or confirmrelevant rivera components of the note.IMPRESSION:71 year old male with PMH of HTN, COPD, HLD, ?ETOH use presented with melena [facility] ED. He was transferred to [facility] with:?Hemorrhagic shock AND Acute blood loss anemia 2/2 multiple antral and pyloriculcers with one visible vessel s/p clipping. Had more than 3L blood through NGTand received multiple blood products including 13 units of pRBC. Now offpressors. This morning noted to have bloody OG secretions with a Hb drop. RepeatEGD 06/23/2017 showed Intermittently oozing pyloric ulcer s/p clippingAcute encephalopathy 2/2 above, now sedatedType 3 respiratory failure 2/2 aboveLeukocytosis, downtrendingAtrial Fibrillation/Flutter in RVR, new onset, On Cardizem dripAKI, likely prerenal, improvedLactic acidosis, HAGMAPLAN:Continue mechanical ventilation, goal is comfort. Sedate to a target RAAS of -1Check Hb Q6 hour, continue Protonix dripKeep NPO, D51/2NS with KNebsICU PPxThis patient has a high probability of sudden, clinically significantdeterioration, which requires the highest level of physician preparedness tointervene urgently. I managed/supervised life or organ supporting interventionsthat required frequent physician assessment. I devoted my full attention to thedirect care of this patient for the amount of time indicated below. Time Ispent with family or surrogate(s) is included only if the patient was incapableof providing the necessary information or participating in medical decisionmaking. Time devoted to teaching and to any procedures I billed separately isnot included.Critical Care Documentation: The patient has the following organ/systemimpairment(s): Acute blood loss, Arrhythmias, Complex life-threatening medicalproblem(s) and Respiratory failure (Acute)Time spent providing critical care services: 35 minutes.SIGNATURE: MAICO Ross INSTITUTEDATE of SERVICE: 06/23/2017TIME of SERVICE: 12:08 PMPrevious VersionSjosé miguel Dumas RN, RN 06/23/2017 1:55 PM AddendumCARE MANAGEMENT: ASSESSMENT AND DISCHARGE PLANSERVICE DATE: 06/23/2017SERVICE TIME: 1:46 PMPRIMARY CARE PHYSICIAN:ENRIQUE Perez [place]: [phone] STATUS: InpatientMEDICAL:Patient/Repr esentative Stated Goals:To return home to life as it wasHealth Insurance: MEDICARE A AND BMedicaidHealth Issues Impacting Discharge Plan: NoneLast Admission Date: noneIs this Within the Past 30 days? NoHealth Literacy:1. How often do you need to have someone help you when you read instructions,pamphlets, or other written material from your doctor or pharmacy? Never - 12. How confident are you filling out medical forms by yourself? Extremely - 1If Patient scores > 3 on either question, the following interventions were putinto place:Patient did not score > 3FUNCTIONAL AND COGNITIVE/BEHAVIORALPRIOR TO ADMISSION:Baseline Mental Status: Alert AND Oriented, Person, Place , Time and SituationFunctional Status: IndependentDoes Patient Currently Receive Any Community Services or Home Care? NoneEquipment Prior to Admission: nebulizerHas the Patient Been in a Nursing Home Facility in the Past 30 days? NoSOCIAL:Living Arrangement: HomeLives With: AloneFinancial Resources: RetiredPrimary Contact: Extended Emergency Contact InformationPrimary Emergency Contact: [place] [address] [facility] Eptgitcj: SisterSupportive: YesOther Important Patient Contacts: NoneCaregiver Assessment:Caregiver is ready, willing and able to meet the patient's needs as recommendedby the inter-professional team? NoPatient's transition needs and plan for meeting these needs: yesDoes the patient have an acute stroke diagnosis, or has the patient had a strokeduring this admission? NoMedication Adherence:I am convinced of the importance of my prescription medication: Agree completely- 0I worry that my prescription medication will do more harm than good to meDisagree completely - 0I feel financially burdened by my qmc-sj-faibkd expenses for my prescriptionmedication: Disagree completely - 0Patient is categorized as low risk < 2Are you interested in bedside delivery of your medications? YesFood Concerns:In the Last Month, Have You had Trouble Getting Food? No trouble getting foodDuring the Last Month, Have You Worried Whether Your Food Would Run Out BeforeYou Had Enough Money to Buy More? NoIs the Patient Psychosocially Complex? NoASSESSMENT AND PLAN:Medical Needs: Respiratory Insufficiency - unsure needs.Psychosocial Needs: NoneFREEDOM OF CHOICE EXPLAINED:N/APOTENTIAL TRANSITION PLANSHomsarah Perez helped answer questions for assessment.SIGNATURE: Toshia Dumas RN PATIENT NAME: Cristina Camp: June 23, 2017 : 1:46 PM PAGER/CONTACT #: [phone] Chapo Matias RD, [place] 06/23/2017 2:44 PM SignedNUTRITION THERAPY INITIAL ASSESSMENTSERVICE DATE: 06/23/2017SERVICE TIME: 1145amRECOMMENDED MALNUTRITION DIAGNOSIS: UNABLE TO IDENTIFY MALNUTRITION AT THIS TIMEas questionable appetite and wt changes per family(currently unavailable) aspart of MST scoring.NUTRITION CARE PLAN:Problem, Etiology and Signs/Symptoms:Suboptimal protein/energy intake related to GIB as evidenced by activebleeding, EGD results, and current state of hemorrhagic shock.Intervention:Consider initiating support soon if remains vented.Surgery/GI following: If unable to feed via GI route and tpn needed, tegcietag14jnd pro, 1008kcals CHO, 216kcals from fat.( total 1800kcals)If TF's feasible, recommend Impact Peptide 50ml/hr providing 1800kcals, 113gmsproCoordination of Care:d/w rnMonitor and Evaluation:Goal: Meet >75% of estimated needsMonitor fluid/electrolyte balanceMonitor labs, I/Os, vital signs, weightDischarge Nutrition Recommendations:To be determinedPer HPI: Cristina Jeffrey is a 71 year old with a history of COPD, HTN, HLD, and aquestionable history of alcohol abuse who presented to [facility] with dyspnea whoreceived a breathing treatment and then became increasingly altered. He waasfound to be AANDOx1, hypotensive and believed to be in hypovolemic/hemorrhagicshock from a GI bleed. He received 2L NS and 1 unit of pRBC. He has no activesigns of bleeding, but a recent history of melena. s/p egd with multiple ulcerss/p clipping. Recent rebleeding noted. GI rest and observation for now.?Present Diet Order: NPOEnteral Access: NGNutritional Intake Prior to Admission: unknownGI symptoms: unable to determine at this timeAbdominal Exam: bowel sounds are normalIs the patient having any pain that is interfering with oral/enteral intake?Unable to assessANTHROPOMETRICSHeight: 177.8 cm (5' 10")Admission Weight: 96 kg (211 lb 10.3 oz)Current Weight: 99.8 kg (220 lb 0.3 oz)Body mass index is 31.57 kg/(m2). class 1 obesityWeight changes unknown, but suspected per familyLast Wt06/23/17 : 99.8 kg (220 lb 0.3 oz)[place] Body Weight: 75kgResting Metabolic Rate: 1763Estimated kilocalorie needs: 1800 kilocalories determined by 25 kcal/kgEstimated protein needs: 90 grams determined by 1.2gms/kg [place] weightEstimated fluid needs: 1800 milliliters based on 1 mL per kcalNUTRITION FOCUSED PHYSICAL EXAM:Subcutaneous Fat LossOrbital No fat lossTriceps No fat lossMid-axillary at the iliac crest Unable to determine at this timeMuscle Loss Locations:Temporalis No muscle lossPectoralis No muscle lossDeltoids No muscle lossInterosseous Unable to determine at this timeLatissimus dorsi, trapezius Unable to determine at this timeQuadriceps No muscle lossGastrocnemius No muscle lossPotential micronutrient deficiency revealed in: Unable to determine at this timewith potential d/t ETOH hxEdema: NoAscites: NoAssessment of Functional Status: Unable to assessTemperature Max in 24 hours: Temp (24hrs), Av ?C (98.6 ?F), Min:36.6 ?C(97.9 ?F), Max:37.6 ?C (99.7 ?F) BP 118/65 Pulse (!) 139 Temp 36.6 ?C (97.9 ?F) Resp 25 Ht 177.8 cm (5'10") Wt 99.8 kg (220 lb 0.3 oz) SpO2 100% BMI 31.57 kg/y7Vpcpye Labs 06/23/1802GLUC -- 123* < > 170*BUN -- 36* < > 94*CREAT -- 0.76 < > 1.45*NA -- 140 < > 140K -- 3.9 < > 4.2CHLOR -- 106 < > 100CO2 -- 32 < > 30ALB -- -- -- 2.3*HB 8.8* 10.4* < > --HCT -- 31.1* < > --WBC -- 15.84* < > --< > = values in this interval not displayed.Potential Signs of Inflammation: leukocytosis, hyperglycemia and hypoalbuminemia(but with active bleeding)Current Facility-Administered Medications:dilTIAZem 100 mg in D5W 100 mL ADD-Arvilla (CARDIZEM) 5 mg/hr INTRAVENOUSCONTINUOUSalbutero l 2.5 mg/0.5 mL 2.5 mg nebulizer solution (PROVENTIL) 2.5 mg INHALATIONq 6 H PRNipratropium-albuterol 3 mL nebulizer solution (DUONEB) 3 mL INHALATION QIDdextrose 5% in NaCl 0.45% with 20 mEq/L KCl iv infusion 125 mL/hr INTRAVENOUSCONTINUOUSpotassiu m chloride 80-120 mEq oral liquid 80-120 mEq ORAL/FEEDING TUBE PRNpotassium chloride iv piggyback 20 mEq in sterile water 100 mL 60-120 mEqINTRAVENOUS PRNmagnesium sulfate in water 2 g in sterile water 50 ml 2 g INTRAVENOUS PRNcalcium gluconate 4 g in NaCl 0.9% 250 mL 4 g INTRAVENOUS PRNpantoprazole 40 mg injection (PROTONIX) 40 mg INTRAVENOUS q 12 HRpropofol infusion (DIPRIVAN) 5-50 mcg/kg/min (Order-Specific) INTRAVENOUSCONTINUOUSChlorhex idine Gluconate 0.12 % 15 mL (PERIDEX) 15 mL ORAL q 12 HIntake/Output 06/21/17 07 - 06/22/17 0659 06/22/17 07 - 06/23/17 0659 06/23/17 07 -06/24/17 0659 Intake (ml) 6306.2 1954.1 641 Output (ml) 5280 3895 445 Net (ml) 1026.2 -1940.9 196MNT Billing Type: Initial Assess/15 min 4 unitsSIGNATURE: Nishi Matias RD PATIENT NAME: Cristina JeffreyDATE: June 23, 2017 : 2:28 PM PAGER: [phone] Normal [facility] Hemogram/Diffon 06-21-2017 Abs. Baso 0.00 thou/cmm Low 0.01-0.[address] [facility] Comment on above: Performed By: #### C BCD1 ####[place] [address] Abs. [place] 0.83 thou/cmm High 0.30-0.[address] [facility] Comment on above: Performed By: #### C BCD1 ####[place] [address] Abs. Neut 22.49 thou/cmm High 1.78-5.[address] [facility] Comment on above: Performed By: #### C BCD1 ####[place] [address] Anisocytosis presence Slight [facility] Comment on above: Performed By: #### C BCD1 ####[address] [address] Basophils/100 WBC Auto (Bld) 0.0 % Normal [facility] [facility] Comment on above: Performed By: #### C BCD1 ####[facility] [place], [place] [address] Eosinophils 0.00 thou/cmm Low 0.04-0.[address] [facility] Comment on above: Performed By: #### C BCD1 ####[address] [address] Eosinophils/100 leukocytes 0.0 % Normal [facility] Comment on above: Performed By: #### C BCD1 ####[address] [address] Erythrocyte morphology Present Normal [facility] Comment on above: Performed By: #### C BCD1 ####[address] [address] Immat Grans Abs calc 0.28 Normal [facility] Comment on above: Performed By: #### C BCD1 ####[address] [address] Lymphocytes 4.16 thou/cmm High 0.84-2.[address] [facility] Comment on above: Performed By: #### C BCD1 ####[address] [address] Lymphocytes/100 leukocytes 15.0 % Normal [facility] Comment on above: Performed By: #### C BCD1 ####[address] [address] Metamyelocytes 1.0 % Normal [facility] Comment on above: Performed By: #### C BCD1 ####[address] [address] Monocytes/100 leukocytes 3.0 % Normal [facility] Comment on above: Performed By: #### C BCD1 ####[address] [address] Polychromasia Few Normal [facility] Comment on above: Performed By: #### C BCD1 ####[place] [address] Seg Neutrophil 81.0 % Normal [facility] Comment on above: Performed By: #### C BCD1 ####[place] [address] Erythrocyte distribution width Auto Ratio (RBC) 14.2 % Normal 11.6-14.[address] [facility] Comment on above: Performed By: #### C BCD1 ####[place] [address] Erythrocytes (RBC) 2.39 mil/cmm Low 4.63-6.08 [facility] Comment on above: Performed By: #### C BCD1 ####[place] [address] Hematocrit (HCT) 22.4 % Low 40.1-51.[address] [facility] Comment on above: Performed By: #### C BCD1 ####[place] [address] Hemoglobin mass conc (Bld) 7.7 g/dL Low 13.7-17.[address] [facility] Comment on above: Performed By: #### C BCD1 ####[place] [address] MCH 32.2 pg Normal 25.7-32.[address] [facility] Comment on above: Performed By: #### C BCD1 ####[place] [address] MCHC mass conc (RBC) 34.4 % Normal 32.3-36.5 [facility] Comment on above: Performed By: #### C BCD1 ####[place] [address] MCV 93.7 fL Normal 83.2-95.[address] [facility] Comment on above: Performed By: #### C BCD1 ####[place] [address] Nucleated erythrocytes 0.09 thou/cmm High 0.00-0.[address] [facility] Comment on above: Performed By: #### C BCD1 ####[place] [address] Nucleated RBC % 0.3 % High 0.0-0.[address] [facility] Comment on above: Performed By: #### C BCD1 ####[place] [address] Platelet mean volume (PMV) 10.6 fL Normal 8.7-12.[address] [facility] Comment on above: Performed By: #### C BCD1 ####[place] [address] Platelets 233 thou/cmm Normal 141-[address] [facility] Comment on above: Performed By: #### C BCD1 ####[place] [address] RDW SD 48.3 fl High 36.1-45.[address] [facility] Comment on above: Performed By: #### C BCD1 ####[place] [address] WBC (Leukocytes) 27.76 thou/cmm Critically high 4.23-9.[address] [facility] Comment on above: Performed By: #### C BCD1 ####[place] [address] Hgbon 06-21-2017 Hemoglobin mass conc (Bld) 12.6 g/dL Low 13.7-17.[address] [facility] Comment on above: Performed By: #### P PHRS ####[place] [address] Lactic Acidon 06-21-2017 Lactate 4.5 mmol/L Critically high 0.4-2.[address] [facility] Comment on above: Performed By: #### L AC ####[place] [address] MDRD GFRon 06-21-2017 eGFR (non-black) 47.84 mL/min/{1.73_m2} Normal > 60mL/min/ 1.73m2 [facility] Comment on above: Result Comment: If t he patient is , multiply the result by 1.210. Performed By: #### P T ####[address], [place] [address] MRSA Screenon 06-21-2017 MRSA Screen Test performed at [facility] No MRSA detected. Normal [facility] Comment on above: Performed By: #### P PHRS ####[address] [address] NURSING PROGon 06-21-2017 Protein mass conc HNO ID: [id number] thor: Samantha (Rn) Sheryl Dickice: (none)Author Type: Registered NurseType: Nursing Progress NoteFiled: 06/21/2017 9:54 PMNote Text: Nursing Progress: Topic: RESTRAINT NON-VIOLENTPATIENT NAME: Cristina JeffreyMRN: [id number] LOCATION: [place] [address]*The patient demonstrates Attempting to Remove Medical Devices Vital toMedical Stability, Lack of Understanding/Ability to Comply with SafetyDirections as evidenced by the following behaviors intubated, notfollowing commands, reaching for OETT with BUE which pose an imminentdanger to self or others.The following interventions were attempted but were not effective inprotecting the patient's safety: Alarms, Bed in Low/Locked Position, CallLight Within Reach, IV/Feeding Bag/Pump Out of Vision, MedicationsReviewed, Modify Environment, Modify Equipment, Frequent ObservationNext, a comprehensive assessment was performed and warranted placing thepatient in Soft Bilateral Wrists, the least restrictive restraint neededto protect the patient's safety.Ongoing safety assessments and evaluation for earliest removal ofrestraints will be performed.DATE: June 21, 2017TIME: 9:54 Dov Dick RN Normal [facility] Protein mass conc HNO ID: [id number] thor: Daryn (Rn) Sheryl Joshiice: (none)Author Type: Registered NurseType: Nursing Progress NoteFiled: 06/21/2017 5:49 PMNote Text: Nursing Progress: Topic: RESTRAINT NON-VIOLENTPATIENT NAME: Cristina LeeN: [id number] LOCATION: [place] [address]*The patient demonstrates as evidenced by the following behaviorsattempts to sit up in bed, pull out Et tube, not able to be redirected atthis time which pose an imminent danger to self or others.The following interventions were attempted but were not effective inprotecting the patient's safety:Next, a comprehensive assessment was performed and warranted placing thepatient in , the least restrictive restraint needed to protect thepatient's safety.Ongoing safety assessments and evaluation for earliest removal ofrestraints will be performed.DATE: June 21, 2017TIME: 5:49 Arlene Joshi RN Normal [facility] OPERATIVE NOon 06-21-2017 OPERATIVE NO HNO ID: [id number] thor: Sagar Valenciaervice: GastroenterologyAuthor Type: PhysicianType: Operative ReportFiled: 06/22/2017 5:14 PMNote Text:[facility] - Operative ReportSURGEON: ENRIQUE AlcarazATIENT NAME: DAVID JEFFREYRN: [id number] CSN: [id number] OF SURGERY: 06/21/2017DATE OF : 1945 SEX/AGE: M/71PATIENT TYPE: V HOSP SVC: PULM LOCATION: [id number] OF SURGERY: 06/21/2017SURGEON: ENRIQUE AlcarazROCEDURE PERFORMED: Esophagogastroduodenoscopy with Endoclip placementx4, epinephrine injection, biopsies of the gastric antrum and body for H.pylori.PREOPERATIVE DIAGNOSIS: Acute brisk upper gastrointestinal bleeding.POSTOPERATIVE DIAGNOSES:1. Multiple antral ulcers with 1 large ulcer with a visible vessel at itsbase as the source of bleeding.2. A large ulcer at the pre-pyloric region. Scope advanced to the base ofthe duodenal bulb.MEDICATION GIVEN: Propofol IV.INSTRUMENT USED: Olympus therapeutic GIF-190 scope.INDICATION FOR THE PROCEDURE: This 71-year-old male [facility] withhistory of acute brisk GI bleeding. He has been vomiting blood. Uponarrival into the intensive care unit, he had an NG tube placed whichdrained approximately 1 L right away and then 2 more liters subsequently. The patient's hemoglobin is down to 7 grams. He was resuscitated forhemorrhagic shock. He has underlying COPD, hypertension, and veryquestionable alcohol use.TECHNIQUE: Informed consent was obtained from his sister in the presenceof her brother and multiple other family members.The patient was previously intubated by the Critical Care Service andplaced on the ventilator.A therapeutic video duodenoscope was passed per oral route into theesophagus and advanced down to the base of the duodenal bulb. Scope waspulled back into the stomach and a large ulcer noted at the mid to distalantrum which measuredapproximately 2 cm x 1 cm. A visible vessel was noted at the ulcer basewith a small clot, which was washed away. 4 Endoclips were placed on itand then 4 mL of 1 in 10,000 epinephrine was injected around the clips.No bleeding was noted towards the end of the procedure. The scope wasthen retroflexed in the proximal stomach. Biopsies were taken from theproximal antrum and distal body for H. pylori. Scope was then graduallywithdrawn and the patient allowed to recover.FINDINGS:1. Esophagus was noted to be normal. Z-line was noted at 44 cm from lips. The Z- line was noted to be irregular. There band imaging showed linearcolumns of Sandra's mucosa. No varices were seen on this exam in the esophagus.2. Stomach showed no gastric varices. Old blood mixed with food was notedin the stomach. It was blackish in color. Distal antrum showed multipleulcers with one of them being large, measuring approximately 2 cm x 1 cm with avisible vessel and a little small clot on it. The pyloric channel area showeda large ulcer, but attempt was made not to spend too much time in view of theend of the patient's critical illness. The scope was however advanced intothe duodenal bulb where no blood was noted to be present in the duodenum.RECOMMENDATION:1. We will watch for further bleeding.2. To continue on octreotide for overnight.3. To continue on IV PPIs.4. We will schedule the patient for a second-look endoscopy. The surgeryis on the standby.Sagar Dominguez MDGastroenterologyGM:modlD: 06/21/2017 19:29:30T: 06/22/2017 03:55:36Job #: [id number] Normal [facility] PROCEDUREon 06-21-2017 Protein mass conc HNO ID: [id number] thor: Aquiles Harper) [facility]Sers[facility]ere: Critical CareAuthor Type: PhysicianType: ProceduresFiled: 06/21/2017 5:20 PMNote Text:BEDSIDE PROCEDURE NOTEPROCEDURE DATE: June 21, 2017PROCEDURE START TIME: 4:30 PMPRIMARY PROCEDURALIST: CHANDLER RichterISTANT(S): NoneINFORMED CONSENT: Due to emergent situation informed consent was notobtainedUNIVERSAL PROTOCOL / SAFETY CHECKLISTSign in Communication: Emergent N/ATime Out: Team Confirms the Correct Patient, Correct Procedure, CorrectSite and Site Marking, Correct Position (if applicable), Prep and Dry Time(if applicable). Time: NAAffirmation of Time Out: N/ASign Out Discussion: CompletedPROCEDURE: ARTERIAL CATHETER INSERTIONLine/Indication: Single lumen for Monitoring of vital bodily functions(BP, pH, paO2, paCO2)Anesthesia/Sedation: Local; lidocaine 1%Insertion Site: Left radial arteryArea Prep: Chlorhexidine gluconateTechnique Used to Place Line: Modified SeldingerUltrasound was used to visualize a patent artery prior to the start of theprocedure. The vessel was cannulated under direct ultrasound visualization with a 20 gauge catheter on the first attempt. A straight-tipped springwire was passed into the artery through the indwelling catheter and leftin situ while the catheter was advanced. The catheter was left in situwhile the guidewire was removed.Pulsatile blood flow exited the catheter and an arterial waveform wasnoted on the monitor when the catheter was transduced. The catheter wassecured in place with sterile sutures. A sterile dressing was applied anddated.All catheters, needles and/or wires were accounted for and intact: Yes.Patient tolerated procedure well.Complications: NoneNo Specimens Collected Unless Noted HereEstimated Blood Loss: NoneSIGNATURE: Aquiles Osborne MD PATIENT NAME: Cristina JeffreyDATE: June 21, 2017 : 5:19 PMAttending addendumI was present for the rivera parts of the procedure.Aquiles Osborne MD [facility] Protein mass conc HNO ID: [id number] thor: Bart (Jerrica Hervice: Critical CareAuthor Type: ResidentType: ProceduresFiled: 06/21/2017 5:17 PMNote Text:MICU PROCEDURE NOTE: ARTERIAL LINE PLACEMENTThe risks, benefits, alternatives, and personnel discussed with patient orrepresentative who cannot consent to the procedure because of clinicalurgency.UNIVERSAL PROTOCOL / SAFETY CHECKLIST: Procedure to be performed: Leftradial arterial line.. Sign in Communication: Completed. Time Out: TeamConfirms the Correct Patient, Correct Procedure, Correct Site and SiteMarking, Correct Position (if applicable). Time: 1700. Affirmation ofTime Out: YES. Sign Out Discussion: Completed.Anesthesia was not required as patient was already sedated with fentanylafter intubation. The area was prepped and draped in the usual sterilefashion. Cannulation of the left radial artery was attempted underultrasound guidance with success on. Appropriate wave form was noted.The line was secured with sutures. A dressing was placed over the site.The patient tolerated the procedure well.Bart Hines, DO06/21/2017 [facility] Protein mass conc HNO ID: [id number] thor: Aquiles OsborneService: Critical CareAuthor Type: PhysicianType: ProceduresFiled: 06/21/2017 5:18 PMNote Text:BEDSIDE PROCEDURE NOTEPROCEDURE DATE: June 21, 2017PROCEDURE START TIME: 4:00 PMPRIMARY PROCEDURALIST: CHANDLER RichterISTANT(S): NoneINFORMED CONSENT: Due to emergent situation informed consent was notobtainedUNIVERSAL PROTOCOL / SAFETY CHECKLISTSign in Communication: Emergent N/ATime Out: Team Confirms the Correct Patient, Correct Procedure, CorrectSite and Site Marking, Correct Position (if applicable), Prep and Dry Time(if applicable). Time: NAAffirmation of Time Out: YESSign Out Discussion: CompletedPROCEDURE: CENTRAL VENOUS LINE INSERTIONIndication: Venous accessInsertion Type: New stickSite: Right internal jugular veinInserted By: ResidentSupervision: Aquiles Osborne MDUltjerry Used for Insertion: Yes, image not capturedThe usual aseptic technique was not followed due to clinical factorsnecessitating an emergent procedure. . No anesthesia was attempted due toclinical factors necessitating an emergent procedure. The vessel wascannulated under direct ultrasound visualization with a 6.35 cm, 18 gaugesingle lumen catheter on the first attempt.A J-tipped spring wire was passed into the vein through the indwellingcatheter and left in situ while the catheter was removed. A small skinincision was made and the tract was dilated with a semi-rigid tissuedilator. A 10 cm, dual-lumen, 9 Fr MAC introducer sheath was loaded ontothe tissue dilator, the sheath/dilator assembly was advanced over theguidewire and the sheath was left in situ while the guidewire and dilatorwere removed. All ports were capped with sterile site caps, venous blood was aspiratedfrom all ports and all ports were flushed with sterile saline solution. Anantimicrobial-impregnated protective disk was placed around the catheter,the catheter was secured in place at 16 cm with sterile sutures and asterile, transparent, occlusive dressing was placed over the site. Aportable CXR was ordered. All catheters, needles and wires were accountedfor and intact. The patient tolerated the procedure well and withoutapparent complicationsNo Specimens Collected Unless Noted HereEstimated Blood Loss: ScantSIGNATURE: Aquiles Osborne MD PATIENT NAME: Cristina JeffreyDATE: June 21, 2017 : 5:11 PM Normal [facility] Protein mass conc HNO ID: [id number] thor: Aquiles OsborneService: Critical CareAuthor Type: PhysicianType: ProceduresFiled: 06/21/2017 5:11 PMNote Text:BEDSIDE PROCEDURE NOTEPROCEDURE DATE: June 21, 2017PROCEDURE START TIME: 3:45 PMPRIMARY PROCEDURALIST: CHANDLER HaileISTANT(S): NoneINFORMED CONSENT: Due to emergent situation informed consent was notobtainedUNIVERSAL PROTOCOL / SAFETY CHECKLISTSign in Communication: CompletedTime Out: Team Confirms the Correct Patient, Correct Procedure, CorrectSite and Site Marking, Correct Position (if applicable), Prep and Dry Time(if applicable). Time: 3:47 PMAffirmation of Time Out: YESSign Out Discussion: CompletedPROCEDURE: OROTRACHEAL INTUBATIONIndication: Airway Protection and Difficulty BreathingSedation: The patient was sedated with etomidate. Muscle relaxation wasachieved with the administration of succinylcholine.Equipment: Endotracheal tube, size 7.5 mm and [place] ScopeThe patient was administered supplemental oxygen by bag-mask ventilation.Adjunct airway equipment and suction were at the bedside and ready to use.The head was placed in the sniffing position. I - Visualized entire cordsvia direct video laryngoscopy. The method used for intubation was rapidsequence intubation because the patient was suspected of having a fullstomach. Cricoid pressure was maintained. A 7.5 mm endotracheal tube wasinserted using a glide scope and secured at 23 cm at the teeth/gums.Placement was confirmed with capnometer, bilateral auscultatation ofbreath sounds without air sounds in the abdomen, second look laryngoscopyand chest x-ray ordered to confirm placement, results pending.Difficulty Encountered: NonePatient tolerated procedure well.Complications: NoneNumber of Attempts for Intubation: 1No Specimens Collected Unless Noted HereEstimated Blood Loss if > Minimal Noted HereSIGNATURE: Aquiles Osborne MD PATIENT NAME: Cristina JeffreyDATE: June 21, 2017 : 5:07 PMAttending addendumI was present at the bedside for the entire duration of the procedure.Aquiles Osborne MD [facility] PROGRESSon 06-21-2017 Protein mass conc HNO ID: [id number] thor: Noe Ambrose: Pulmonary DiseaseAuthor Type: PhysicianType: Progress NotesFiled: 06/21/2017 8:45 PMNote Text:CRITICAL CARE PROGRESS NOTESERVICE DATE: June 21, 2017SERVICE TIME: 8:37 PMAdmission Date: 06/21/2017AGE: 71 year oldLOS: 0 daysREASON FOR ICU ADMISSION:ACTIVE PROBLEM LISTShock (Hcc)Copd (Chronic Obstructive Pulmonary Disease) (Hcc)HypertensionAtrial Fibrillation (Hcc)HyperlipidemiaSubjective Patient is resting comfortably in bed while sedated and intubated/on theventilator without any current distress.ObjectiveVITAL SIGNS (last 24hrs min/max):Temp Av.2 ?C (95.3 ?F) Min: 34 ?C (93.2 ?F) Max: 36.1 ?C (97 ?F)Pulse Av.3 Min: 74 Max: 117Cuff BP Min: 74/28 Max: 156/115Pain Score: 09/1023 hour Intake AND Output:Intake/Output Summary (Last 24 hours) at 06/21/172036Last data filed at 06/21/171956 Gross per 24 hourIntake 5218.5 mlOutput 3700 mlNet 1518.5 mlPHYSICAL EXAM:COOK APPRENTICE: Intubated, SedatedFeeding Tube: Yes. Orogastric tubeEyes: PERNeck: Unremarkable; No adenopathy or JVDCardiovascular: Regular rhythmRespiratory: Few scattered crackles bilaterally anteriorly.Abdomen: Soft, distended, Nontender and Positive bowel soundsExtremities: Edema- NoSkin: Abnormalities- NoVENTILATOR INFORMATION:WEANING DATA:Settings: Invasive Ventilator Mode: Pressure Regulated Volume Control () %FIO2: 100 Set Ventilator Respiratory Rate (BPM): 16 Tidal Volume Set (mL): 400 PEEP/CPAP (cm H2O): 5Patient Data: Inspiratory:Expiratory Ratio: 1:2.8 Peak Inspiratory Pressure (cm H2O): 14 Plateau Pressure (cm H2O): 12 (comp = 59, resist = 13)INPATIENT MEDICATIONS:Current hospital medications:potassium chloride 80-120 mEq oral liquid 80-120 mEq ORAL/FEEDING TUBE PRNpotassium chloride iv piggyback 20 mEq in sterile water 100 mL 60-120 mEqINTRAVENOUS PRNmagnesium sulfate in water 2 g in sterile water 50 ml 2 g INTRAVENOUS PRNsodium phosphate 45 mmol in NaCl 0.9% 250 mL 45 mmol INTRAVENOUS PRNcalcium gluconate 4 g in NaCl 0.9% 250 mL 4 g INTRAVENOUS PRNpantoprazole 40 mg injection (PROTONIX) 40 mg INTRAVENOUS q 12 HR[START ON 2017] pantoprazole 40 mg injection (PROTONIX) 40 mgINTRAVENOUS DAILY (6 AM)ketamine 100 mg injection (KETALAR) 100 mg INTRAVENOUS ONCEoctreotide 500 mcg in D5W 100 mL (SandoSTATIN) 50 mcg/hr INTRAVENOUSCONTINUOUSNORepine phrine 16 mg in D5W 250 mL (LEVOPHED) 0.6-50 mcg/min INTRAVENOUSCONTINUOUSfentaNYL iv infusion 20 mcg/mL in NaCl 0.9% 100 mL 25 mcg/hr INTRAVENOUSCONTINUOUSpropofol infusion (DIPRIVAN) 5-50 mcg/kg/min (Order-Specific) INTRAVENOUSCONTINUOUSChlorhex idine Gluconate 0.12 % 15 mL (PERIDEX) 15 mL ORAL q 12 Hpiperacillin-tazobactam 3.375 g in dextrose (iso-osmotic) 50 mL (ZOSYN)3.375 g INTRAVENOUS q 8 HDATA:BLOOD GAS:Recent Labs 06/21/1814VPH -- 7.085LZV2 -- 59.3*VPO2C -- 46.6*RESPHCO3 28.6* 35.7*BASEX -- 9.5Q2KYHGJP -- 74.2PH 7.336* --PCO2 54.7* --M8DJIBVP 99.4* --CBC:Recent Labs WBC 27.76*HB 7.7*HCT 22.4*PLT 233MCV 93.7COAG:Recent Labs INR 1.15BMP:Recent Labs GLUC 170*NA 140K 4.2CHLOR 100CO2 30ANION 14BUN 94*CREAT 1.45*CHEM:Recent Labs ALB 2.3*TPROT 4.6*CA 7.1*HEPATIC:Recent Labs [id number] 41*ALT 44AST 34TBILI 1.1*URINALYSIS:Recent Labs PH 7.336*Assessment/PlanASSESSME NT:ACTIVE PROBLEM LISTShock (Hcc)Copd (Chronic Obstructive Pulmonary Disease) (Hcc)HypertensionAtrial Fibrillation (Hcc)HyperlipidemiaAcute blood loss anemiaHemorrhagic shockAcute hypoxic respiratory failurePLAN:Found to have multiple antral and pyloric ulcers including one with avisible vessel on EGD this evening as per Dr. Dominguez (GI) with whom I spokeoutside of the patient's room in the ICU.Continue full ventilator support.Hemodynamically stable without pressors or high rate IV fluids.Continue octretide drip and IV PPI as per GI.Check INR after FFP transfusion.Check serial hemoglobins.Transfuse PRN.Keep NPO.This patient has a high probability of sudden, clinically significantdeterioration, which requires the highest level of physician preparednessto intervene urgently. I managed/supervised life or organ supportinginterventions that required frequent physician assessment. I devoted myfull attention to the direct care of this patient for the amount of timeindicated below. Time I spent with family or surrogate(s) is includedonly if the patient was incapable of providing the necessary informationor participating in medical decision making. Time devoted to teaching andto any procedures I billed separately is not included.PROGNOSIS: GuardedCode status: Full Code.Discussed with Registered Nurse.Critical Care Documentation: The patient has the following organ/systemimpairment(s): Respiratory failure (Acute, with Hypoxemia)Time spent providing critical care services: 40 minutes.SIGNATURE: Noe Quick [facility] RESPIRATORY INSTITUTEPAGER:[id number] of SERVICE: June 21, 2017TIME of SERVICE: 8:37 PM Normal [facility] Protein mass conc HNO ID: [id number] thor: Sagar Valenciaervice: GastroenterologyAuthor Type: PhysicianType: Progress NotesFiled: 06/29/2017 11:34 AMNote Text:BRIEF OPERATIVE / PROCEDURE NOTELOG ID: [id number]/PROCEDURE DATE: 06/21/2017SURGEON(S)/PROCEDURA LIST(S) AND CONFIGURATION MANAGEMENT CONSULTANT(S): Sagar Dominguez - PrimaryendoscopistINDICATION: Acute brisk upper GI bleedingPRE-OP/PRE-PROCEDURE DIAGNOSIS: Same, cause unknownPOST-OP/POST-PROCEDURE DIAGNOSIS: 1. Multiple antral gastric ulcers,largest ulcer measures 2.5 x 1 cm with a visible vessel bleeder A largeprep[yloric ulcerPROCEDURE(S): upper endoscopy with endo clip placement x4 a, epinephrineinjection and antral Bxs for H.pylori.ANESTHESIA: MACFINDINGS: As aboveESTIMATED BLOOD LOSS: NoneSPECIMENS: antral and body of stomach BxsCOMPLICATIONS: NonePOST-PROCEDURE RECOMMENDATIONS/FOLLOW UP: 2nd look EGd in near futureSIGNATURE: Sagar Dominguez MD PATIENT NAME: Cristina MooreTE: 06/21/2017 : normal Normal [facility] Protein mass conc HNO ID: [id number] thor: Sagar Valenciaervice: GastroenterologyAuthor Type: PhysicianType: Progress NotesFiled: 06/21/2017 7:15 PMNote Text:CONSULT: GASTROENTEROLOGY SERVICESERVICE DATE: 01/28/2017SERVICE TIME: 7:03 PMREASON FOR CONSULT: acute upper GI bleedingREQUESTING PHYSICIAN: Dr. Pelletierseth Jeffrey is a 71 year old with a history of COPD, HTN, HLD, and aquestionable history of alcohol abuse who presented to [facility] with[facility]yspnea who received a breathing treatment and then became increasinglyaltered. He waas found to be AANDOx1, hypotensive and believed to be inhypovolemic/hemorrhagic shock from a GI bleed. He received 2L NS and 1unit of pRBC. He has no active signs of bleeding, but a recent history ofmelena.?He is brought here to the ICU by EMS only arousable to sternal rub. Hisinitial BP's were 60's/40's and tachycardic to the 120's. An OG was placedand immediately revealed black fluid. Patient was immediately intubatedfor airway protection. NG tube aspiration of close to 3 liters of bloodydark material.FUNCTIONAL STATUS: IndependentNo past medical history on file.No past surgical history on file.No family history on file.Current Facility-Administered Medications:potassium chloride 80-120 mEq oral liquid 80-120 mEq ORAL/FEEDING TUBE PRNDenise Myra (Res) Sesepotassium chloride iv piggyback 20 mEq in sterile water 100 mL 60-120 mEqINTRAVENOUS PRN Chula Myra (Res) Sesemagnesium sulfate in water 2 g in sterile water 50 ml 2 g INTRAVENOUS PRNDenise Myra (Res) Sesesodium phosphate 45 mmol in NaCl 0.9% 250 mL 45 mmol INTRAVENOUS PRNDenise Myra (Res) Sesecalcium gluconate 4 g in NaCl 0.9% 250 mL 4 g INTRAVENOUS PRN DeniseGabrielle (Res) Sesepantoprazole 40 mg injection (PROTONIX) 40 mg INTRAVENOUS q 12 HR DeniseGabrielle (Res) SeseFollowed by[START ON 2017] pantoprazole 40 mg injection (PROTONIX) 40 mgINTRAVENOUS DAILY (6 AM) Chula Myra (Res) Seseketamine 100 mg injection (KETALAR) 100 mg INTRAVENOUS ONCE DeniseGabrielle (Res) Seseoctreotide 500 mcg in D5W 100 mL (SandoSTATIN) 50 mcg/hr INTRAVENOUSCONTINUOUS Charis (Res) Kerns Last Rate: 10 mL/hr at 06/21/17 1611 50 mcg/hrat 06/21/17 1611NORepinephrine 16 mg in D5W 250 mL (LEVOPHED) 0.6-50 mcg/min INTRAVENOUSCONTINUOUS Charis (Res) Kerns Stopped at 06/21/17 1844fentaNYL iv infusion 20 mcg/mL in NaCl 0.9% 100 mL 25 mcg/hr INTRAVENOUSCONTINUOUS Charis (Res) Luis F Last Rate: 1.25 mL/hr at 06/21/17 1740 25mcg/hr at 06/21/17 1740propofol infusion (DIPRIVAN) 5-50 mcg/kg/min (Order-Specific) INTRAVENOUSCONTINUOUS Charis (Res) Luis F Last Rate: 21 mL/hr at 06/21/17 1845 50mcg/kg/min at 06/21/17 1845Chlorhexidine Gluconate 0.12 % 15 mL (PERIDEX) 15 mL ORAL q 12 H Charis(Res) Luis Fpiperacillin-tazobactam 3.375 g in dextrose (iso-osmotic) 50 mL (ZOSYN)3.375 g INTRAVENOUS q 8 H Charis (Res) Luis FALLERGIESNo Known AllergiesFully Assessed 06/21/17COMPLETE REVIEW OF SYSTEMS:PAIN ASSESSMENT: Negative for painGENERAL: No weight loss, malaise or feversHEAD AND NECK: No headache, swollen glandsPULMONARY: No cough, wheezing, dyspnea on exertion, or shortness of breathCARDIOVASCULAR: No chest pain, palpitationsABDOMINAL: Per HPINEUROLOGIC: No dizziness, lightheadedness, or weaknessOPHTHALMOLOGIC: No visual abnormalitiesMUSCULOSKELETAL: No pain, weakness, or leg swellingSKIN: No rashOBJECTIVEPHYSICAL EXAM: 06/21/18175BP: 112/58 128/51Pulse: 75 76 77 83Resp: 19Temp: (!) 34.7 ?C (94.5 ?F) (!) 34.8 ?C (94.6 ?F) (!) 35.3 ?C (95.5 ?F)(!) 35.6 ?C (96.1 ?F)SpO2: 99% 98% 100%GENERAL: Pt. Heavily sedated for ET intubation . Unable to communicateHEENT: PERRLA, normocephalic, no thyromegaly, no lymphadenopathy, tracheacentrally locatedCHEST: Clear to auscultation and percussion bilaterally. On ventCVS: RRR, hypotensive prior to Resuscitative IV fluids and bloodABD: Distended, tympaniticNEURO: Cranial nerves intact, no lateralizing neurologic signs, irritableon physical stimuliMSK: No wasting, no weaknessEXT: No edema, no deformitySKIN: No jaundice, no rashDATA:Diagnostic tests reviewed for today's visit: BUN- 94, Cr-1.45Liverprofile Nl. Hgb-7.7, WBC-27,000Most recent labs and imaging results.IMPRESSIONAcute brisk Upper GI bleeding, cause ?Hemorrhagic shockRenal insufficiencyLeukocytosisRECO MMENDATION/PLAN1. Emergency EGD2. Agree with resuscitative measures3. Octreotide IVDiscussed with critical care serviceD/W surgery service D/W nursing staff and famiklySIGNATURE: Sagar Dominguez MD PATIENT NAME: Cristina JeffreyDATE: 06/21/17 : 7:03 PM Normal [facility] Protein mass conc HNO ID: [id number] thor: Bashir Darden (Pharmacist)Service: PharmacyAuthor Type: PharmacistType: Progress NotesFiled: 06/21/2017 5:27 PMNote Text:MEDICATION HISTORYPatient Name:Salvador JeffreyMRN: [id number]: 1945Source of history: From Medication List from [facility]. Unable to verifywith pharmacy at this time.Medication Nonadherence Identified: No barriers notedThe above information represents the best possible medication history:IncompleteAdditional comments: Will attempt to verify with pharmacy when informationavailable.Please note, medication list from [facility] lists prednisone 10 mg daily #30tablets. Unable to find pharmacy at this time to verify. Team notifiedAllergies: ALLERGIESNo Known AllergiesPreferred Pharmacy: UnknownCurrent [facility] Medications:Prior to Admission medications as of 06/21/17 1712Medication Sig Last Dose Takinglisinopril (ZESTRIL, PRINIVIL) 20 mg tablet Take 20 mg by mouth oncedaily. Yespravastatin (PRAVACHOL) 40 mg tablet Take 40 mg by mouth once daily. Yesipratropium-albuterol (COMBIVENT RESPIMAT) 20-100 mcg/actuation mistInhale 1 Inhalation as instructed four times daily. Yesaspirin 81 mg chewable tablet Take 81 mg by mouth once daily. Yesbudesonide-formoterol (SYMBICORT) 160-4.5 mcg/actuation inhaler Inhale 1Puff as instructed twice daily. Yesranitidine (ZANTAC) 150 mg tablet Take 150 mg by mouth twice daily. YesguaiFENesin (MUCINEX) 600 mg 12 hr tablet Take 1,200 mg by mouth twicedaily. YespredniSONE (DELTASONE) 10 mg tablet Take 10 mg by mouth once daily. Yescarvedilol (COREG) 6.25 mg tablet Take 6.25 mg by mouth twice daily withmeals. Yesfurosemide (LASIX) 40 mg tablet Take 40 mg by mouth twice daily. Neil DARDEN, PHARMACISTFebruary 2017 5:13 PM Normal [facility] Pheresed Plateletson 018 Pheresed Plts unit 1 Done Normal [facility] Comment on above: Performed By: #### P T ####[place] [address] Pheresed Plts unit 1 Done Normal [facility] Comment on above: Performed By: #### P PHRS ####[place] [address] Protimeon 06-21-2017 INR Coag RelTime (PPP) 1.08 {INR} Normal [facility] Comment on above: Result Comment: Timo dard Therapy 2.0-3.0High Dose 2.5-3.5 Performed By: #### P PHRS ####[place] [address] Prothrombin time (PT) Coag time (PPP) 11.3 s Normal 9.3-11.[address] [facility] Comment on above: Performed By: #### P PHRS ####[place] [address] INR Coag RelTime (PPP) 1.15 {INR} Normal [facility] Comment on above: Result Comment: Timo mercado Therapy 2.0-3.0High Dose 2.5-3.5 Performed By: #### P T ####[place] [address] Prothrombin time (PT) Coag time (PPP) 11.9 s Normal 9.3-11.[address] [facility] Comment on above: Performed By: #### P T ####[place] [address] RBC Productson 06-21-2017 Xmatch Unit 1 see below Normal [facility] Comment on above: Result Comment: Comp atible Performed By: #### R BCPS ####[place] [address] Xmatch Unit 2 see below Normal [facility] Comment on above: Result Comment: Comp atible Performed By: #### R BCPS ####[place] [address] Xmatch Unit 3 see below Normal [facility] Comment on above: Result Comment: Comp atible Performed By: #### R BCPS ####[place] [address] Xmatch Unit 4 see below Normal [facility] Comment on above: Result Comment: Comp atible Performed By: #### R BCPS ####[place] [address] Xmatch Unit 5 see below Normal [facility] Comment on above: Result Comment: Comp atible Performed By: #### R BCPS ####[place] [address] Xmatch Unit 1 see below Normal [facility] Comment on above: Result Comment: Issu ed uncrossmatched; tested compatible Performed By: #### R BCPS ####[place] [address] Xmatch Unit 2 see below Normal [facility] Comment on above: Result Comment: Issu ed uncrossmatched; tested compatible Performed By: #### R BCPS ####[facility] [place] [address] Xmatch Unit 1 see below Normal [facility] Comment on above: Result Comment: Comp atible Performed By: #### R BCPS ####[facility] [place] [address] Xmatch Unit 2 see below Normal [facility] Comment on above: Result Comment: Comp atible Performed By: #### R BCPS ####[facility] [place] [address] Xmatch Unit 3 see below Normal [facility] Comment on above: Result Comment: Comp atible Performed By: #### R BCPS ####[facility] [place] [address] Xmatch Unit 4 see below Normal [facility] Comment on above: Result Comment: Comp atible Performed By: #### R BCPS ####[facility] [place] [address] Xmatch Unit 5 see below Normal [facility] Comment on above: Result Comment: Comp atible Performed By: #### R BCPS ####[place] [address] Surgical Tissue Examon 06-21 Surgical Tissue Exam Test performed at [place] [address]NAME: CRISTINA JEFFREY [id number] REQUESTING: SAGAR DOMINGUEZ M.D.FINAL DIAGNOSIS:GASTRIC BIOPSIES (BODY AND ANTRUM) - EXTENSIVE CHRONIC AND ACTIVE ACUTEGASTRITIS WITH ULCERATION AND NUMEROUS HELICOBACTER PYLORI ORGANISMS.COMMENT: The presence of numerous Helicobacter pylori is confirmed onthe immunostain.OPERATIVE PROCEDURE: EGDCLINICAL INFORMATION: GI bleed, UlcersGROSS DESCRIPTION:Body and antrumReceived in formalin labeled body and antrum biopsies are fourfragmented soft tissues, which aggregate to 1 x 0.3 x 0.2 cm. Totallysubmitted in one cassette. Levels x 3 plus H. pylori. BMP:lesley RUSHING M.D.(Electronic signature on file)Signed out: 06/23/2017 16:36PRINTED: 06/23/2017 Page 1 of [address] [facility] Comment on above: Performed By: #### L AC ####[place] [address] Type and Screenon 06-21-2017 ABO group A Normal [facility] Comment on above: Performed By: #### T &S ####[place] [address] Antibody Screen Negative Normal [facility] Comment on above: Performed By: #### T &S ####[place] [address] Comment See Below [facility] Comment on above: Result Comment: Scre en &/or Xmatch expires in 3 days at 12 midnight. Redrawpatient at that time. Performed By: #### T &S ####[place] [address] RH Type Positive Normal [facility] Comment on above: Performed By: #### T &S ####[place] [address] Urine Drug Screenon 06-21-19 18 Urine Amphetamine Non-detected Normal Non-Detect ed [facility] Comment on above: Performed By: #### P T ####[place] [address] Urine Barbiturates Non-detected Normal Non-Detec t ed [facility] Comment on above: Performed By: #### P T ####[place] [address] Urine Benzodiazepine Non-detected Normal Non-Det ect ed [facility] Comment on above: Performed By: #### P T ####[place] [address] Urine Cocaine Metab Non-detected Normal Non-Dete ct ed [facility] Comment on above: Performed By: #### P T ####[place] [address] Urine Opiate Non-detected Normal Non-Detect ed [facility] Comment on above: Performed By: #### P T ####[address] [address] Urine PCP Non-detected Normal Non-Detect ed [facility] Comment on above: Performed By: #### P T ####[address] [address] Urine THC Non-detected Normal Non-Detect ed [facility] Comment on above: Result Comment: Urin e Drug Cutoff LevelsUrine Amphetamine 500 ng/mLUrine Barbiturate 200 ng/mLUrine Benzodiazepines 200 ng/mLUrine Cocaine 150 ng/mLUrine Phencyclidine (PCP) 25 ng/mLUrine Opiates 300 ng/mLUrine THC 50 ng/mLThe results of these analytes are unconfirmed and reportedqualitatively as detected or non-detected relative to the cutoffvalue. Detected results indicate the sample is likely to containthe analyte. Non-detected results indicate that either the sampledoes not contain the analyte or it is present in concentrations belowthe cutoff level. This drug screen should be used for medical diagnosticpurposes only. Performed By: #### P T ####[place] [address] Venous Blood Gason 8 Base Excess 9.6 mEq/L Normal -2.5 to 2.[address] [facility] Comment on above: Performed By: #### V BG ####[place] [address] Bicarbonate (HCO3) 35.7 mmol/L High 22.0-26.[address] [facility] Comment on above: Performed By: #### V BG ####[place] [address] Body temperature 37.[address] [facility] Comment on above: Performed By: #### V BG ####[place] [address] CO2 59.3 mm Hg High 38.0-49.[address] [facility] Comment on above: Performed By: #### V BG ####[place] [address] O2% Sat Venous 74.2 % Normal 70.0-80.[address] [facility] Comment on above: Performed By: #### V BG ####[facility] [place], [place] [address] pH Venous 7.397 Normal 7.320-7.[address] [facility] Comment on above: Performed By: #### V BG ####[facility] [place], [place] [address] PO2 Venous 46.6 mm Hg High 35.0-45.[address] [facility] Comment on above: Performed By: #### V BG ####[facility] [place] [address] Vital Signs Date Time Vital Sign Value Performing Clinician Faci lity 07-15-2024 12:55-0400 Body temperature 97.8 [degF] Dr. Clifton Del Valle MD Work Phone: [facility] 07-15-2024 12:55-0400 Diastolic blood pressure 74 mm[Hg] Dr. Clifton Del Valle MD Work Phone: [facility] 07-15-2024 12:55-0400 Heart rate 100 /min Dr. Clifton Del Valle MD Work Phone: [facility] 07-15-2024 12:55-0400 Respiratory rate 16 /min Dr. Clifton Del Valle MD Work Phone: [facility] 07-15-2024 12:55-0400 SaO2% (BldA) [Mass fraction] 94 % Dr. Clifton Del Valle MD Work Phone: [facility] 07-15-2024 12:55-0400 Systolic blood pressure 119 mm[Hg] Dr. Clifton Del Valle MD Work Phone: [facility] 07-14-2024 23:12-0400 Inhaled oxygen flow rate 1 L/min Dr. Clifton Del Valle MD Work Phone: [facility] 07-13-2024 10:08-0400 Body height 175.[address] Clifton Del Valle MD Work Phone: [facility] 07-13-2024 10:08-0400 Body mass index (BMI) [Ratio] 31.6 kg/m2 Dr. Clifton Del Valle MD Work Phone: 5(742)357-215888 [place] [address] 07-13-2024 10:08-0400 Body weight [address] Clifton Del Valle MD Work Phone: 8(879)095-886817 [place] [address] 07-13-2024 09:40-0400 Body temperature 98.3 [degF] Dr. Clifton Del Valle MD Work Phone: 9(197)664-266117 [place] [address] 07-13-2024 09:40-0400 Diastolic blood pressure 57 mm[Hg] Dr. Clifton Del Valle MD Work Phone: 9(853)279-558017 [place] [address] 07-13-2024 09:40-0400 Heart rate 128 /min Dr. Clifton Del Valle MD Work Phone: 0(840)172-963317 [place] [address] 07-13-2024 09:40-0400 Respiratory rate 24 /min Dr. Clifton Del Valle MD Work Phone: 1(997)822-130617 [place] [address] 07-13-2024 09:40-0400 SaO2% (BldA) [Mass fraction] 95 % Dr. Clifton Del Valle MD Work Phone: 2(897)082-789717 [place] [address] 07-13-2024 09:40-0400 Systolic blood pressure 89 mm[Hg] Dr. Clifton Del Valle MD Work Phone: 4(546)948-251217 [place] [address] 07-13-2024 09:00-0400 Inhaled oxygen flow rate 1 L/min Dr. Clifton Del Valle MD Work Phone: 5(311)447-775617 [place] [address] 07-13-2024 06:44-0400 Body height 175.[address] Clifton Del Valle MD Work Phone: 7(021)113-948117 [place] [address] 07-13-2024 06:44-0400 Body mass index (BMI) [Ratio] 32.6 kg/m2 Dr. Clifton Del Valle MD Work Phone: 8(783)739-937288 [place] [address] 07-13-2024 06:44-0400 Body weight 100.[address] Clifton Del Valle MD Work Phone: 2(338)447-703717 [place] [address] 07-02-2024 07:45-0400 Body mass index (BMI) [Ratio] 32.6 kg/m2 Dr. Clifton Del Valle MD Work Phone: 4(129)919-268888 [place] [address] 07-02-2024 07:45-0400 Body weight 100.[address] Clifton Del Valle MD Work Phone: 3(107)800-996388 [place] [address] 07-02-2024 07:45-0400 Diastolic blood pressure 83 mm[Hg] Dr. Clifton Del Valle MD Work Phone: 3(359)836-596917 [place] [address] 07-02-2024 07:45-0400 Heart rate 88 /min Dr. Clifton Del Valle MD Work Phone: 8(700)443-634217 [place] [address] 07-02-2024 07:45-0400 Respiratory rate 18 /min Dr. Clifton Del Valle MD Work Phone: 5(073)467-161917 [place] [address] 07-02-2024 07:45-0400 SaO2% (BldA) [Mass fraction] 97 % Dr. Clifton Del Valle MD Work Phone: 2(161)063-565188 [place] [address] 07-02-2024 07:45-0400 Systolic blood pressure 120 mm[Hg] Dr. Clifton Del Valle MD Work Phone: 3(725)042-670888 [place] [address] 05-10-2022 07:57-0500 Body height 175.[address] Clifton Del Valle Work Phone: 0(099)581-227517 [place] [address] 05-10-2022 07:57-0500 Body mass index (BMI) [Ratio] 30.8 kg/m2 Dr. Clifton Del Valle Work Phone: 5(174)760-990888 [place] [address] 05-10-2022 07:57-0500 Body weight 94.[address] Clifton Del Valle Work Phone: 2(279)244-816288 [place] [address] 05-10-2022 07:57-0500 Diastolic blood pressure 84 mm[Hg] Dr. Clifton Del Valle Work Phone: 7(773)476-520988 [place] [address] 05-10-2022 07:57-0500 Heart rate 75 /min Dr. Clifton Del Valle Work Phone: 9(200)672-787988 [place] [address] 05-10-2022 07:57-0500 Respiratory rate 18 /min Dr. Clifton Del Valle Work Phone: [facility] 05-10-2022 07:57-0500 SaO2% (BldA) [Mass fraction] 96 % Dr. Clifton Del Valle Work Phone: [facility] 05-10-2022 07:57-0500 Systolic blood pressure 127 mm[Hg] Dr. Clifton Del Valle Work Phone: [facility] 09-06-2021 03:39-0400 Heart rate 76 /min [facility] Work Phone: 09-06-2021 03:39-0400 Respiratory rate 18 /min [facility] Work Phone: 09-06-2021 03:39-0400 SaO2% (BldA) [Mass fraction] 98 % [facility] Work Phone: 09-06-2021 01:00-0400 Diastolic blood pressure 68 mm[Hg] [facility] Work Phone: 09-06-2021 01:00-0400 Systolic blood pressure 110 mm[Hg] [facility] Work Phone: 09-05-2021 23:41-0400 Body height 175.26 cm [facility] Work Phone: 09-05-2021 23:41-0400 Body mass index (BMI) [Ratio] 33.9 kg/m2 [facility] Work Phone: 09-05-2021 23:41-0400 Body temperature 97.7 [degF] [facility] Work Phone: 09-05-2021 23:41-0400 Body weight 104.1 kg [facility] Work Phone: Encounters Encounter Date Encounter Type Care Provider Facility Start: 09-05-2024 End: 09-05-[address] Clifton Del Valle MD Work Phone: [facility] Work Phone: Start: 09-05-2024 End: 09-05-[address] Clifton Del Valle MD -Laboratory Work Phone: Start: 09-05-2024 End: 09-05-2024 ambulatory Clifton Justin Del Valle Facility:[facility] Start: 07-15-2024 Non-patient / Non-visit Dr. Bertin Torrez [facility] Work Phone: Start: 07-14-2024 Non-patient / Non-visit Dr. Bertin Torrez [facility] Work Phone: Start: 07-13-2024 Non-patient / Non-visit [facility]. Galeano [facility] Start: 07-13-2024 ambulatory Clifton Del Valle Facility:[facility] Start: 07-13-2024 ambulatory Bertin Rodriguez y:[facility] Start: 07-13-2024 End: 07-15-2024 Evaluation and management of inpatient Dr. Bertin Wolff DO -[facility] Work Phone: Start: 07-02-2024 End: 07-02-2024 Patient encounter procedure Tasha Nguyen [place] -[facility] Work Phone: Start: 07-02-2024 End: 07-02-2024 ambulatory Clifton Del Valle Facility:[facility] Start: 02-27-2024 End: 02-27-2024 ambulatory Clifton Justin Del Valle Facility:[facility] Start: 02-28-2023 End: 02-28-2023 ambulatory [facility] Work Phone: Start: 02-28-2023 End: 02-28-2023 Patient encounter procedure [facility] 3rd Flr Start: 08-30-2022 End: 08-30-[address] Clifton Del Valle Work Phone: [facility] Work Phone: Start: 08-30-2022 End: 08-30-[address] Clifton Del Valle Work Phone: [facility]-Laboratory, Phy Office 3rd Flr Start: 05-10-2022 End: 05-10-[address] Clifton Del Valle Work Phone: [facility] Start: 03-01-2022 End: 03-01-2022 ambulatory [facility] Work Phone: Start: 03-01-2022 End: 03-01-2022 Patient encounter procedure [facility], Phy Office 3rd Flr Start: 10-07-2021 End: 10-07-2021 [facility] Start: 09-23-2021 End: 09-23-2021 [facility] Start: 09-09-2021 End: 09-09-2021 [facility] Start: 09-05-2021 End: 09-06-2021 Emergency department patient visit [facility] Start: 08-26-2021 End: 08-26-2021 Patient encounter procedure [facility], Phy Office 3rd Flr Start: 11-06-2017 Ambulatory MICHELLE MENDEZ Facili ty:[facility] Start: 10-10-2017 End: 10-10-2017 Ambulatory NOAMAN S ALI Facility:[facility] Start: 09-12-2017 End: 09-28-2017 Evaluation and management of inpatient NOAMAN S ALI Facility:[facility] Start: 09-12-2017 End: 09-12-2017 Evaluation and management of inpatient SAGAR N REINALDO Facility:[facility] Start: 09-12-2017 End: 09-12-2017 Patient encounter SAGAR NABI REINALDO [facility] Start: 06-21-2017 End: 07-05-2017 Evaluation and management of inpatient JOSÉ MIGUEL DEL VALLE Facility:[facility] Procedures Date Procedure Procedure Detail Performing Clinician Start: 09-05-2024 Vitamin D, 25-hydrox y measurement Dr. Clifton Del Valle MD Work Phone: Comment on above: Vitamin D StatusDefi ciency: <20 ng/mL (50nmol/L)Insufficiency: 20-30 ng/mL (50-75 nmol/L)Sufficiency: 30-100 ng/mL (75-250 nmol/L)Toxicity: >100 ng/mL (>250 nmol/L) Start: 07-14-2024 Plain chest X-ray Dr. Raman Del Valle MD Work Phone: Start: 07-14-[address] Clifton Del Valle MD Work Phone: Start: 07-13-[address] Clifton rollins MD Work Phone: Start: 07-13-2024 Legionella pneumophi la antigen assay Dr. Clifton Del Valle MD Work Phone: Start: 07-13-2024 SARS-CoV-2, Influenz a & RSV (PCR) Dr. Clifton Del Valle MD Work Phone: Start: 07-13-2024 End: 07-13-2024 Streptococcus pneumoniae antigen assay Dr. Clifton Del Valle MD Work Phone: Start: 07-13-2024 Plain chest X-ray Dr. Raman Del Valle MD Work Phone: Start: 09-05-2021 CT of head without contrast Plan of Treatment Date Care Activity Detail Author Start: 07-15-2024 Patient discharge [facility] Start: 07-14-2024 Care planning and problem solving actions [facility] Start: 07-14-2024 Chest 1 View (Portable) Chest 1 View (Portable) [facility] Start: 07-14-2024 XR Chest Single view [facility] Start: 07-13-2024 Bacteria identified in Blood by Culture Blood Culture [facility] Start: 07-13-2024 [facility] [place] Start: 07-13-2024 SARS-CoV-2, Influenza & RSV (PCR) SARS-CoV-2, Influenza & RSV (PCR) [facility] Start: 07-13-2024 Referral to occupational therapist [facility] Start: 07-13-2024 Referral to service [facility] Start: 07-13-2024 Following clinical pathway protocol [facility] Start: 07-13-2024 Care planning and problem solving actions [facility] Start: 07-13-2024 Ambulation without limitation [facility] Start: 07-13-2024 Assessment of risk of venous thromboembolism [facility] Start: 07-13-2024 Catheterization of vein [facility] Start: 07-13-2024 Inhalation therapy procedure [facility] Start: 07-13-2024 Insertion of catheter into peripheral vein [facility] Start: 07-13-2024 Measuring intake and output [facility] Start: 07-13-2024 Oxygen therapy [facility] Start: 07-13-2024 Providing care according to standard [facility] Start: 07-13-2024 Respiratory therapy [facility] Start: 07-13-2024 [facility] Start: 07-13-2024 Legionella pneumophila Ag [Presence] in Urine [facility] Start: 07-13-2024 Streptococcus pneumoniae antigen assay [facility] Start: 07-13-2024 Verification routine [facility] Start: 07-13-2024 Admission procedure [facility] Start: 07-13-2024 End: 07-14-2024 [facility] Start: 09-05-2021 Simple repair f/e/e/n/l/m 2.5cm/< RPR F/E/E/N/L/M 2.5 CM/< [facility] Work Phone: Anion gap in Serum o r Plasma [facility] BUN/Creatinine ratio [facility] Calcium [Mass/volume ] in Serum or Plasma [facility] Carbon dioxide, tota l [Moles/volume] in Central venous blood [facility] Creatinine [Mass/vol ume] in Serum or Plasma [facility] Glucose [Mass/volume ] in Serum or Plasma [facility] Measurement of renal function [facility] Patient Education ED Head Injury (Adult) ED Laceration: All Closures [facility] Work Phone: Patient referral [facility] Work Phone: Potassium measurement [facility] Serum chloride measurement [facility] Sodium measurement [facility] Urea nitrogen [Mass/ volume] in Serum or Plasma [facility] Immunizations Immunization Date Immunization Notes Care Provider Fa cility 02-27-2024 influenza, injectabl e, quadrivalent, preservative free Dr. Clifton Del Valle MD Work Phone: [facility] 02-28-2023 influenza, injectabl e, quadrivalent, preservative free Dr. Clifton Del Valle MD Work Phone: [facility] 08-26-2021 Covid (Moderna) Dr. Clifton Del Valle MD Work Phone: [facility] 02-25-2021 Covid (Moderna) Dr. Clifton Del Valle MD Work Phone: [facility] 02-25-2021 influenza, injectabl e, quadrivalent, preservative free Dr. Clitfon Del Valle MD Work Phone: [facility] 07-02-2020 Covid ([employer]) Dr. Clifton Del Valle MD Work Phone: [facility] 02-18-2020 influenza, injectabl e, quadrivalent, preservative free Dr. Clifton Del Valle MD Work Phone: [facility] 10-22-[address] Clifton Del Valle MD Work Phone: [facility] 08-20-[address] Clifton Del Valle MD Work Phone: [facility] 02-06-2019 influenza, injectabl e, quadrivalent, preservative free Dr. Clifton Del Valle MD Work Phone: [facility] 02-19-2018 Influenza virus vaccine [facility] 01-16-2017 influenza, high dose seasonal, preservative-free Dr. Clifton Del Valle MD Work Phone: [facility] Payers Date Payer Category Payer Medicaid [id number] 2024 Self-pay [id number] 2023 Unknown [id number] 2010 Medicare [id number] Unknown [id number] 2.16.8 [id number] Unknown [id number] 2.16.8 [id number] Unknown [id number] 2.16.8 [id number] Unknown [id number] 2.16.8 [id number] Unknown [id number] 2.16.8 [id number] Unknown [id number] 2.16.8 [id number] Unknown [id number] 2.16.8 [id number] Unknown [id number] 2.16.8 [id number] Social History Date Type Detail Facility Start: 04-20-2021 End: 05-10-2022 Tobacco smoking status PAIS Unknown if ever smoked [facility] Start: 01-28-2019 Sober [facility] Start: 01-28-2019 None [facility] Start: 01-28-2019 Alone [facility] Start: 01-28-2019 Non-smoker [facility] Start: 1945 Sex Assigned At Male [facility] Start: 07-13-2024 [facility] Start: 07-13-2024 End: 07-15-2024 Sex Male (finding) [facility] Medical Equipment Procedure Code Equipment Code Equipment Original Text Equipment Identifier Dates Total cholecystectomy with exploration of common bile duct CLIP,BERLIN TOLLIVER FDA Start: 01-29-2019 Total cholecystectomy with exploration of common bile duct CLIP,BERLIN TOLLIVER FDA Start: 01-29-2019 Total cholecystectomy with exploration of common bile duct CLIP,BERLIN TOLLIVER FDA Start: 01-29-2019 Total cholecystectomy with exploration of common bile duct CLIP,BERLIN TOLLIVER FDA Start: 01-29-2019 Total cholecystectomy with exploration of common bile duct CLIP,BERLIN PATELCK FDA Start: 01-29-2019 Total cholecystectomy with exploration of common bile duct CLIP,BERLIN PATELCK FDA Start: 01-29-2019 Total cholecystectomy with exploration of common bile duct CLIP,HEMOLOJOSE ENRIQUE HUANG WECK FDA Start: 01-29-2019 Total cholecystectomy with exploration of common bile duct CLIP,BERLIN HUANG WECK FDA Start: 01-29-2019 Total cholecystectomy with exploration of common bile duct CLIP,HEMANTHONY HUANG WECK FDA Start: 01-29-2019 Total cholecystectomy with exploration of common bile duct CLIP,BERLIN HUANG WECK FDA Start: 01-29-2019 Total cholecystectomy with exploration of common bile duct CLIP,BERLIN HUANG WECK FDA Start: 01-29-2019 Total cholecystectomy with exploration of common bile duct CLIP,HEMANTHONY HUANG WECK FDA Start: 01-29-2019 Total cholecystectomy with exploration of common bile duct CLIP,BERLIN PATELCK FDA Start: 01-29-2019 Total cholecystectomy with exploration of common bile duct CLIP,BERLIN PATELCK FDA Start: 01-29-2019 Total cholecystectomy with exploration of common bile duct CLIP,BERLIN TOLLIVER FDA Start: 01-29-2019 Total cholecystectomy with exploration of common bile duct CLIP,BERLIN TOLLIVER FDA Start: 01-29-2019 Total cholecystectomy with exploration of common bile duct CLIP,BERLIN PATELCK FDA Start: 01-29-2019 Total cholecystectomy with exploration of common bile duct CLIP,BERLIN PATELCK FDA Start: 01-29-2019 Goals Date Patient Goal Desired Activity /State Functional Status Date Assessment Result Facility 07-15-2024 Functional status Chair [facility] Work Phone: Mental Status Date Assessment Result Facility 07-15-2024 Cognitive function Voice/Name [facility] Work Phone: 07-13-2024 Cognitive function Voice/Name [facility] Work Phone: Clinical Notes 07-02-2024 to 07-15-2024 Note Date & Type Note Facility 07-15-2024 Discharge summary Note Date/Time July 15, 2024 11:24am [facility] Medical Records Department [address] [place] [address] Discharge Summary 07/15/24 1121 MR#: [id number] Acct: [id number] Name: CRISTINA JEFFREY Rep #:[id number] : 1945 79 From: Bertin Wolff DO PCP: Dr. Clifton Del Valle MD Status:ADM I N Location: [place] [address] Providers Date of Admission: 07/13/24 Date of Discharge: 07/15/24 Primary Care Physician: Dr. Clifton Del Valle MD Reason For Visit: COMMUNITY-ACQUIRED PNEUMONIA, A-FIB WITH RVR Diagnosis Discharge Diagnosis (1) Pneumonia: Status: Acute Code(s): J18.9 - Pneumonia, unspecified organism Plan 1. Community-acquired pneumonia-patient will remain on Zithromax and Rocephin, urine for Legionella and strep pneumoniae antigens were negative, patient's RSV,influenza, and COVID-19 testing was also negative. #2 chronic atrial fibrillation-now with RVR-I have decided to stop the patient'sCardizem drip, he remains on metoprolol for rate control #3 chronic diastolic CHF-patient is on Entresto, metoprolol, and a diuretic #4 coronary artery disease-this appears stable at this time, patient will remainon his home medications #5 essential hypertension-patient will remain on his home medications with an increase in his metoprolol, patient's Cardizem will not be restarted #6 hypoxia secondary to #1-patient is on low-flow nasal cannula oxygen, pulse oxwill be monitored and oxygen will be adjusted as needed Total clinical time spent by myself addressing the patient's medical issues, reviewing all of his data, and collaborating with patient's care team: 35 minutes Medications at Discharge Home Medications albuterol sulfate 2.5 mg/3 mL (0.083 %) solution for nebulization 2.5 mg inhalation Q4H PRN PRN Shortness Of Breath 01/25/19 fluticasone furoate 100 mcg-vilanterol 25 mcg/dose inhalation powder 1 ea IH DAILY breathing 01/25/19 pantoprazole 40 mg tablet,delayed release 40 mg PO BID stomach 01/25/19 potassium chloride 20 mEq tablet,extended release(part/cryst) 40 meq PO DAILY supplement 01/25/19 pravastatin 40 mg tablet 40 mg PO QHS cholesterol 01/25/19 vitamins A,C,D-yzfv-hvemaz 4,296 mcg-226 mg-90 mg capsule 1 ea PO BID Eye vitamin 01/25/19 cholecalciferol (vitamin D3) 25 mcg (1,000 unit) capsule 3,000 unit PO DAILY supplement 05/14/19 furosemide 40 mg tablet 40 mg PO DAILY water pill 05/10/22 sacubitril 97 mg-valsartan 103 mg tablet (Entresto) 1 tab PO BID 05/10/22 apixaban 5 mg tablet 5 mg PO BID afib 07/13/24 cefdinir 300 mg capsule 300 mg PO BID #10 caps 07/15/24 digoxin 250 mcg (0.25 mg) tablet (Lanoxin) 250 mcg PO DAILY #30 tabs 07/15/24 diltiazem HCl 120 mg capsule,extended release 24 hr (Cardizem CD) 120 mg PO DAILY #30 caps 07/15/24 metoprolol succinate 50 mg tablet,extended release 24 hr 150 mg (3 x 50 mg) PO BID #180 tabs 07/15/24 Hospital Course Operations None Procedures 2-D Echocardiogram Summary of Care Provided Minutes Spent on Discharge: 32 Hospital Course: This 79-year-old white male was seen in the emergency room with complaints of shortness of breath and chills. The symptoms started several hours before he went to the emergency room. Examination in the emergency room revealed the patient to be tachycardic in atrial fibrillation with a rate of approximately 135, labs obtained showed an elevated white blood cell count at 13.4, patient's chemistry panel was unremarkable and urinalysis was unremarkable. Chest x-ray was performed which showed a right lung infiltrate indicative of pneumonia, patient required supplemental oxygen 2 L/min to maintain his pulse ox above 90%. Patient was placed on a Cardizem drip and given additional oral metoprolol, he was admitted to PCU and treated with IV antibiotics. Patient's heart rate was difficult to get under control, after increasing the patient's metoprolol dosage, I stopped his Cardizem drip and placed him on digoxin. At the time of discharge on 07/15/2024, I added Cardizem [id number] daily to his medications. On 07/15/2024, patient was seen and examined: On examination he appeared in good health and spirits. Vital signs as documented. Skin warm and dry and without overt rashes. Neck without JVD, neck was supple, trachea midline, thyroid was normal. Lungs clear bilaterally, normal air movement was noted. Heart exam notable for irregular rhythm and irregular rate, normal sounds and absence of murmurs, rubs or gallops. Abdomen unremarkable and without evidence of organomegaly, masses, or abdominal aortic enlargement. Bowel sounds are present, abdomen is not distended. Extremities nonedematous, no cyanosis was noted, no clubbing was noted. Neuro: Cranial nerves II through XII are grossly intact, no focal motor deficits were noted, sensation to light touch and pinprick intact, motor exam 5/5 throughout. Psych: Patient is alert and oriented x3, he does not appear anxious or depressed, he does not appear agitated. Patient appears stable for discharge home on 07/15/2024. Weight / BMI Weight Weight: 97 kg Body Mass Index (BMI) 31.6 ABG / Lab / Microbiology Data 07/15/24 05:13 07/14/24 04:29 Laboratory: Laboratory Results - last 24 hr 07/15/24 05:13: WBC 9.7, RBC 4.46 L, Hgb 14.3, Hct 42.1, MCV 94.4 H, MCH 32.1 H,MCHC 34.0, RDW Std Deviation 50.4 H, RDW Coeff of Yaneli 14.5, Plt Count 218, MPV 9.2, Immature Gran % (Auto) 0.500, Neut % (Auto) 78.1 H, Lymph % (Auto) 9.7 L, [place] % (Auto) 11.0 H, Eos % (Auto) 0.4, Baso % (Auto) 0.3, Absolute Neuts (auto) 7.6, Absolute Lymphs (auto) 0.94, Nucleated RBC % 0 Microbiology: Microbiology 07/13/24 08:00 Blood Culture (Wb) - Anticubital Right Blood Culture - Preliminary No growth in 48 hours. 07/13/24 07:45 Blood Culture (Wb) - Anticubital Right Blood Culture - Preliminary No growth in 48 hours. 07/13/24 15:11 Urine, Clean Catch Legionella Antigen - Final 07/13/24 15:11 Urine, Clean Catch Streptococcus pneumoniae Antigen (M - Final 07/13/24 07:05 Mucosa - Nose SARS-CoV-2, Influenza & RSV (PCR) - Final D/C Instructions Discharge Diet: No restrictions Weight Bearing Status: Full weight bearing DC O2, CPAP, BIPAP Needs Home O2 Discharge instructions: No Meaningful Use Info Meaningful Use Meaningful Use Diagnoses (Choose all that apply): None applicable Ischemic Stroke Statin Dosing Therapy Reference: STATIN DOSE THERAPY REFERENCE: * Patients > 75 years receive moderate or high dose statin therapy. * Patients 75 years or YOUNGER should receive HIGH intensity statin dose unless contraindicated. You will be required to document reason for non-treatment if statin daily dose does not meet guidelines. HIGH DOSE STATIN THERAPY DAILY Atorvastatin > than or = to 40 mg Rosuvastatin > than or = to 20 mg Amlodipine + Atorvastatin > than or = to 2.5/40 mg Ezetimibe + Simvastatin 10/80 mg Simvastatin 80mg Discharge Plan Admission Admit Date/Time: 07/13/24 08:27 Primary Reason for Your Visit: Pneumonia, A-fib with RVR Attending Provider: Bertin Wolff Primary Care Provider: Clifton Del Valle Chi Discharge Orders/Prescriptions Prescriptions: New metoprolol succinate 50 mg Tablet Extended Release 24 Hr 150 mg PO BID Qty: 180 0RF diltiazem HCl [Cardizem CD] 120 mg capsule,extended release 24hr 120 mg PO DAILY Qty: 30 0RF Rx Instructions: Start on 07/16/2024 digoxin [Lanoxin] 250 mcg (0.25 mg) tablet 250 mcg PO DAILY Qty: 30 0RF Rx Instructions: Start on 07/16/2024 cefdinir 300 mg capsule 300 mg PO BID Qty: 10 0RF Rx Instructions: Start on 07/16/2024 Continued Entresto 97-103 mg tablet 1 tab PO BID furosemide 40 mg tablet 40 mg PO DAILY albuterol sulfate 2.5 MG/3 ML solution for nebulization 2.5 mg inhalation Q4H PRN PRN (Reason: Shortness Of Breath) pravastatin 40 MG tablet 40 mg PO QHS potassium chloride 20 MEQ tablet 40 meq PO DAILY pantoprazole 40 MG tablet 40 mg PO BID vitamins A,C,Z-cpux-rbqshj 1 EACH capsule 1 ea PO BID fluticasone furoate-vilanterol 1 EACH blister with device 1 ea IH DAILY cholecalciferol (vitamin D3) 25 mcg (1,000 unit) capsule 3,000 unit PO DAILY apixaban 5 MG tablet 5 mg PO BID Discontinued metoprolol tartrate 50 mg tablet 50 mg PO BID Qty: 180 3RF diltiazem HCl 240 mg capsule,extended release 24 hr 240 mg PO DAILY Referrals / Follow Up: Clifton Del Valle Chi, MD [Primary Care Provider] - In 1 Week Disposition Disposition (needs filled in before D/C Order can be placed): Home, Self Care Charges/Coding Visit Charges Inpatient E&M: 50015 Disch Hosp >30min 07/15/24 1124 <Electronically signed by Bertin Wolff DO> Cosigner Signature (if applicable): CC: Dr. Bertin Wolff DO; Dr. Clifton Del Valle MD~ Signed [facility] Work Phone: 1(637) 799-429203-24-2025 Discharge summary Author [facility] Note Date/Time July 15, 2024 11: 18am [facility] Medical Records Department [address] [place] [id number] Instructions for Home/Discharge Instructions 07/15/24 1108 MR#: [id number] Acct: [id number] Name: CRISTINA JEFFREY Rep #:[id number] : 1945 79 From: Bertin Wolff DO PCP: Dr. Clifton Del Valle MD Status:ADM I N Discharge Instructions Diet Discharge Diet: No restrictions DC O2, CPAP, BIPAP needs Home O2 Discharge instructions: No Dressing / Incision Discharge Activity: Return to Normal Activity Weight Bearing Status: Full weight bearing Follow Up Care Test Results: Test results from this visit will be discussed in further detail at your follow- up appointment, if applicable. Discharge Plan Admission Admit Date/Time: 07/13/24 08:27 Primary Reason for Your Visit: Pneumonia, A-fib with RVR Attending Provider: Bertin Wolff Primary Care Provider: Clifton Del Valle Chi Discharge Orders/Prescriptions Prescriptions: New metoprolol succinate 50 mg Tablet Extended Release 24 Hr 150 mg PO BID Qty: 180 0RF diltiazem HCl [Cardizem CD] 120 mg capsule,extended release 24hr 120 mg PO DAILY Qty: 30 0RF Rx Instructions: Start on 07/16/2024 digoxin [Lanoxin] 250 mcg (0.25 mg) tablet 250 mcg PO DAILY Qty: 30 0RF Rx Instructions: Start on 07/16/2024 cefdinir 300 mg capsule 300 mg PO BID Qty: 10 0RF Rx Instructions: Start on 07/16/2024 Continued Entresto 97-103 mg tablet 1 tab PO BID furosemide 40 mg tablet 40 mg PO DAILY albuterol sulfate 2.5 MG/3 ML solution for nebulization 2.5 mg inhalation Q4H PRN PRN (Reason: Shortness Of Breath) pravastatin 40 MG tablet 40 mg PO QHS potassium chloride 20 MEQ tablet 40 meq PO DAILY pantoprazole 40 MG tablet 40 mg PO BID vitamins A,C,L-nnng-xkcfud 1 EACH capsule 1 ea PO BID fluticasone furoate-vilanterol 1 EACH blister with device 1 ea IH DAILY cholecalciferol (vitamin D3) 25 mcg (1,000 unit) capsule 3,000 unit PO DAILY apixaban 5 MG tablet 5 mg PO BID Discontinued metoprolol tartrate 50 mg tablet 50 mg PO BID Qty: 180 3RF diltiazem HCl 240 mg capsule,extended release 24 hr 240 mg PO DAILY Referrals / Follow Up: Clifton Del Valle Chi, MD [Primary Care Provider] - In 1 Week Disposition Disposition (needs filled in before D/C Order can be placed): Home, Self Care 07/15/24 1118<Electronically signed by Bertin Wolff DO>Bertin Wolff DO CC: Dr. Clifton Del Valle MD ~ Signed [facility] Work Phone: 1(146) 817-458003-24-2025 Discharge summary [facility] Medical Records Department [address] [place] [address] Discharge Summary 07/15/24 1121 MR#: [id number] Acct: [id number] Name: CRISTINA JEFFREY Rep #:[id number] : 1945 79 From: Bertin Wolff DO PCP: Dr. Clifton Del Valle MD Status:ADM I N Location: [place] [address] Providers Date of Admission: 07/13/24 Date of Discharge: 07/15/24 Primary Care Physician: Dr. Clifton Del Valle MD Reason For Visit: COMMUNITY-ACQUIRED PNEUMONIA, A-FIB WITH RVR Diagnosis Discharge Diagnosis (1) Pneumonia: Status: Acute Code(s): J18.9 - Pneumonia, unspecified organism Plan 1. Community-acquired pneumonia-patient will remain on Zithromax and Rocephin, urine for Legionellaand strep pneumoniae antigens were negative, patient's RSV,influenza, and COVID-19 testing was alsonegative. #2 chronic atrial fibrillation-now with RVR-I have decided to stop the patient'sCardizem drip, he remains on metoprolol for rate control #3 chronic diastolic CHF-patient is on Entresto, metoprolol, and a diuretic #4 coronary artery disease-this appears stable at this time, patient will remainon his home medications #5 essential hypertension-patient will remain on his home medications with an increase in his metoprolol, patient's Cardizem will not be restarted #6 hypoxia secondary to #1-patient is on low-flow nasal cannula oxygen, pulse oxwill be monitored and oxygen will be adjusted as needed Total clinical time spent by myself addressing the patient's medical issues, reviewing all of his data, and collaborating with patient's care team: 35 minutes Medications at Discharge Home Medications albuterol sulfate 2.5 mg/3 mL (0.083 %) solution for nebulization 2.5 mg inhalation Q4H PRN PRN Shortness Of Breath 01/25/19 fluticasone furoate 100 mcg-vilanterol 25 mcg/dose inhalation powder 1 ea IH DAILY breathing 01/25/19 pantoprazole 40 mg tablet,delayed release 40 mg PO BID stomach 01/25/19 potassium chloride 20 mEq tablet,extended release(part/cryst) 40 meq PO DAILY supplement 01/25/19 pravastatin 40 mg tablet 40 mg PO QHS cholesterol 01/25/19 vitamins A,C,V-xvbv-nzdngl 4,296 mcg-226 mg-90 mg capsule 1 ea PO BID Eye vitamin 01/25/19 cholecalciferol (vitamin D3) 25 mcg (1,000 unit) capsule 3,000 unit PO DAILY supplement 05/14/19 furosemide 40 mg tablet 40 mg PO DAILY water pill 05/10/22 sacubitril 97 mg-valsartan 103 mg tablet (Entresto) 1 tab PO BID 05/10/22 apixaban 5 mg tablet 5 mg PO BID afib 07/13/24 cefdinir 300 mg capsule 300 mg PO BID #10 caps 07/15/24 digoxin 250 mcg (0.25 mg) tablet (Lanoxin) 250 mcg PO DAILY #30 tabs 07/15/24 diltiazem HCl 120 mg capsule,extended release 24 hr (Cardizem CD) 120 mg PO DAILY #30 caps 07/15/24 metoprolol succinate 50 mg tablet,extended release 24 hr 150 mg (3 x 50 mg) PO BID #180 tabs 07/15/24 Hospital Course Operations None Procedures 2-D Echocardiogram Summary of Care Provided Minutes Spent on Discharge: 32 Hospital Course: This 79-year-old white male was seen in the emergency room with complaints of shortness of breath and chills. The symptoms started several hours before he went to the emergency room. Examination in the emergency room revealed the patient to be tachycardic in atrial fibrillation with a rate of approximately 135, labs obtained showed an elevated white blood cell count at 13.4, patient's chemistry panel was unremarkable and urinalysis was unremarkable. Chest x-ray was performed which showed a right lung infiltrate indicative of pneumonia, patient required supplemental oxygen 2 L/min to maintain his pulse ox above 90%. Patient was placed on a Cardizem drip and given additional oral metoprolol, he was admitted to PCU and treated with IV antibiotics. Patient's heart rate was difficult to get under control, after increasing the patient's metoprolol dosage, I stopped his Cardizem drip and placed him on digoxin. At the time of discharge on 07/15/2024, I added Cardizem CD121 daily to his medications. On 07/15/2024, patient was seen and examined: On examination he appeared in good health and spirits. Vital signs as documented. Skin warm and dry and without overt rashes. Neck without JVD, neck was supple, trachea midline, thyroid was normal. Lungs clear bilaterally, normal air movement was noted. Heart exam notable for irregular rhythm and irregular rate, normal sounds and absence of murmurs, rubs or gallops. Abdomen unremarkable and without evidence of organomegaly, masses, or abdominal aortic enlargement. Bowel sounds are present, abdomen is not distended. Extremities nonedematous, nocyanosis was noted, no clubbing was noted. Neuro: Cranial nerves II through XII are grossly intact,no focal motor deficits were noted, sensation to light touch and pinprick intact, motor exam 5/5 throughout. Psych: Patient is alert and oriented x3, he does not appear anxious or depressed, he does not appear agitated. Patient appears stable for discharge home on 07/15/2024. Weight / BMI Weight Weight: 97 kg Body Mass Index (BMI) 31.6 ABG / Lab / Microbiology Data 07/15/24 05:13 07/14/24 04:29 Laboratory: Laboratory Results - last 24 hr 07/15/24 05:13: WBC 9.7, RBC 4.46 L, Hgb 14.3, Hct 42.1, MCV 94.4 H, MCH 32.1 H,MCHC 34.0, RDW Std Deviation 50.4 H, RDW Coeff of Yaneli 14.5, Plt Count 218, MPV 9.2, Immature Gran % (Auto) 0.500, Neut % (Auto) 78.1 H, Lymph % (Auto) 9.7 L, [place] % (Auto) 11.0 H, Eos % (Auto) 0.4, Baso % (Auto) 0.3, Absolute Neuts (auto) 7.6, Absolute Lymphs (auto) 0.94, Nucleated RBC % 0 Microbiology: Microbiology 07/13/24 08:00 Blood Culture (Wb) - Anticubital Right Blood Culture - Preliminary No growth in 48 hours. 07/13/24 07:45 Blood Culture (Wb) - Anticubital Right Blood Culture - Preliminary No growth in 48 hours. 07/13/24 15:11 Urine, Clean Catch Legionella Antigen - Final 07/13/24 15:11 Urine, Clean Catch Streptococcus pneumoniae Antigen (M - Final 07/13/24 07:05 Mucosa - Nose SARS-CoV-2, Influenza & RSV (PCR) - Final D/C Instructions Discharge Diet: No restrictions Weight Bearing Status: Full weight bearing DC O2, CPAP, BIPAP Needs Home O2 Discharge instructions: No Meaningful Use Info Meaningful Use Meaningful Use Diagnoses (Choose all that apply): None applicable Ischemic Stroke Statin Dosing Therapy Reference: STATIN DOSE THERAPY REFERENCE: * Patients > 75 years receive moderate or high dose statin therapy. * Patients 75 years or YOUNGER should receive HIGH intensity statin dose unless contraindicated. You will be required to document reason for non-treatment if statin daily dose does not meet guidelines. HIGH DOSE STATIN THERAPY DAILY Atorvastatin > than or = to 40 mg Rosuvastatin > than or = to 20 mg Amlodipine + Atorvastatin > than or = to 2.5/40 mg Ezetimibe + Simvastatin 10/80 mg Simvastatin 80mg Discharge Plan Admission Admit Date/Time: 07/13/24 08:27 Primary Reason for Your Visit: Pneumonia, A-fib with RVR Attending Provider: Bertin Wolff Primary Care Provider: Clifton Del Valle Chi Discharge Orders/Prescriptions Prescriptions: New metoprolol succinate 50 mg Tablet Extended Release 24 Hr 150 mg PO BID Qty: 180 0RF diltiazem HCl [Cardizem CD] 120 mg capsule,extended release 24hr 120 mg PO DAILY Qty: 30 0RF Rx Instructions: Start on 07/16/2024 digoxin [Lanoxin] 250 mcg (0.25 mg) tablet 250 mcg PO DAILY Qty: 30 0RF Rx Instructions: Start on 07/16/2024 cefdinir 300 mg capsule 300 mg PO BID Qty: 10 0RF Rx Instructions: Start on 07/16/2024 Continued Entresto 97-103 mg tablet 1 tab PO BID furosemide 40 mg tablet 40 mg PO DAILY albuterol sulfate 2.5 MG/3 ML solution for nebulization 2.5 mg inhalation Q4H PRN PRN (Reason: Shortness Of Breath) pravastatin 40 MG tablet 40 mg PO QHS potassium chloride 20 MEQ tablet 40 meq PO DAILY pantoprazole 40 MG tablet 40 mg PO BID vitamins A,C,Z-anhb-mxclbh 1 EACH capsule 1 ea PO BID fluticasone furoate-vilanterol 1 EACH blister with device 1 ea IH DAILY cholecalciferol (vitamin D3) 25 mcg (1,000 unit) capsule 3,000 unit PO DAILY apixaban 5 MG tablet 5 mg PO BID Discontinued metoprolol tartrate 50 mg tablet 50 mg PO BID Qty: 180 3RF diltiazem HCl 240 mg capsule,extended release 24 hr 240 mg PO DAILY Referrals / Follow Up: Clifton Del Valle Chi, MD [Primary Care Provider] - In 1 Week Disposition Disposition (needs filled in before D/C Order can be placed): Home, Self Care Charges/Coding Visit Charges Inpatient E&M: 32846 Disch Hosp >30min 07/15/24 1124 Cosigner Signature (if applicable): CC: Dr. Bertin Wolff DO; Dr. Clifton Del Valle MD~ Signed [facility]03-24-2025 [facility] Medical Records Department [address] [place] [address] Discharge Summary 07/15/24 1121 MR#: [id number] Acct: [id number] Name: CRISTINA JEFFREY Rep #: [id number] : 1945 79 From: Bertin Wolff DO PCP: Dr. Clifton Del Valle MD Status:ADM IN [facility] Prov[facility] Date of Admission: 07/13/24 Date of Discharge: 07/15/24 Primary Care Physician: Dr. Clifton Del Valle MD Reason For Visit: COMMUNITY-ACQUIRED PNEUMONIA, A-FIB WITH RVR Diagnosis Discharge Diagnosis (1) Pneumonia: Status: Acute Code(s): J18.9 - Pneumonia, unspecified organism Plan 1. Community-acquired pneumonia-patient will remain on Zithromax and Rocephin, urine for Legionella and strep pneumoniae antigens were negative, patient's RSV, influenza, and COVID-19 testing was also negative. #2 chronic atrial fibrillation-now with RVR-I have decided to stop the patient's Cardizem drip, he remains on metoprolol for rate control #3 chronic diastolic CHF-patient is on Entresto, metoprolol, and a diuretic #4 coronary artery disease-this appears stable at this time, patient will remain on his home medications #5 essential hypertension-patient will remain on his home medications with an increase in his metoprolol, patient's Cardizem will not be restarted #6 hypoxia secondary to #1-patient is on low-flow nasal cannula oxygen, pulse ox will be monitored and oxygen will be adjusted as needed Total clinical time spent by myself addressing the patient's medical issues, reviewing all of his data, and collaborating with patient's care team: 35 minutes Medications at Discharge Home Medications albuterol sulfate 2.5 mg/3 mL (0.083 %) solution for nebulization 2.5 mg inhalation Q4H PRN PRN Shortness Of Breath 01/25/19 fluticasone furoate 100 mcg-vilanterol 25 mcg/dose inhalation powder 1 ea IH DAILY breathing 01/25/19 pantoprazole 40 mg tablet,delayed release 40 mg PO BID stomach 01/25/19 potassium chloride 20 mEq tablet,extended release(part/cryst) 40 meq PO DAILY supplement 01/25/19 pravastatin 40 mg tablet 40 mg PO QHS cholesterol 01/25/19 vitamins A,C,D-jxqz-kqbacd 4,296 mcg-226 mg-90 mg capsule 1 ea PO BID Eye vitamin 01/25/19 cholecalciferol (vitamin D3) 25 mcg (1,000 unit) capsule 3,000 unit PO DAILY supplement 05/14/19 furosemide 40 mg tablet 40 mg PO DAILY water pill 05/10/22 sacubitril 97 mg-valsartan 103 mg tablet (Entresto) 1 tab PO BID 05/10/22 apixaban 5 mg tablet 5 mg PO BID afib 07/13/24 cefdinir 300 mg capsule 300 mg PO BID #10 caps 07/15/24 digoxin 250 mcg (0.25 mg) tablet (Lanoxin) 250 mcg PO DAILY #30 tabs 07/15/24 diltiazem HCl 120 mg capsule,extended release 24 hr (Cardizem CD) 120 mg PO DAILY #30 caps 07/15/24 metoprolol succinate 50 mg tablet,extended release 24 hr 150 mg (3 x 50 mg) PO BID #180 tabs 07/15/24 Hospital Course Operations None Procedures 2-D Echocardiogram Summary of Care Provided Minutes Spent on Discharge: 32 Hospital Course: This 79-year-old white male was seen in the emergency room with complaints of shortness of breath and chills. The symptoms started several hours before he went to the emergency room. Examination in the emergency room revealed the patient to be tachycardic in atrial fibrillation with a rate of approximately 135, labs obtained showed an elevated white blood cell count at 13.4, patient's chemistry panel was unremarkable and urinalysis was unremarkable. Chest x-ray was performed which showed a right lung infiltrate indicative of pneumonia, patient required supplemental oxygen 2 L/min to maintain his pulse ox above 90%. Patient was placed on a Cardizem drip and given additional oral metoprolol, he was admitted to PCU and treated with IV antibiotics. Patient's heart rate was difficult to get under control, after increasing the patient's metoprolol dosage, I stopped his Cardizem drip and placed him on digoxin. At the time of discharge on 07/15/2024, I added Cardizem CD121 daily to his medications. On 07/15/2024, patient was seen and examined: On examination he appeared in good health and spirits. Vital signs as documented. Skin warm and dry and without overt rashes. Neck without JVD, neck was supple, trachea midline, thyroid was normal. Lungs clear bilaterally, normal air movement was noted. Heart exam notable for irregular rhythm and irregular rate, normal sounds and absence of murmurs, rubs or gallops. Abdomen unremarkable and without evidence of organomegaly, masses, or abdominal aortic enlargement. Bowel sounds are present, abdomen is not distended. Extremities nonedematous, no cyanosis was noted, no clubbing was noted. Neuro: Cranial nerves II through XII are grossly intact, no focal motor deficits were noted, sensation to light touch and pinprick intact, motor exam 5/5 throughout. Psych: Patient is alert and oriented x3, he does not appear anxious or de (more content not included)... [facility]03-24-2025 Discharge summary [facility] Medical Records Department [address] [place] [id number] Instructions for Home/Discharge Instructions 07/15/24 1108 MR#: [id number] Acct: [id number] Name: CRISTINA JEFFREY Rep #:[id number] : 1945 79 From: Bertin Wolff DO PCP: Dr. Clifton Del Valle MD Status:ADM I N Discharge Instructions Diet Discharge Diet: No restrictions DC O2, CPAP, BIPAP needs Home O2 Discharge instructions: No Dressing / Incision Discharge Activity: Return to Normal Activity Weight Bearing Status: Full weight bearing Follow Up Care Test Results: Test results from this visit will be discussed in further detail at your follow- up appointment, if applicable. Discharge Plan Admission Admit Date/Time: 07/13/24 08:27 Primary Reason for Your Visit: Pneumonia, A-fib with RVR Attending Provider: Bertin Wolff Primary Care Provider: Clifton Del Valle Chi Discharge Orders/Prescriptions Prescriptions: New metoprolol succinate 50 mg Tablet Extended Release 24 Hr 150 mg PO BID Qty: 180 0RF diltiazem HCl [Cardizem CD] 120 mg capsule,extended release 24hr 120 mg PO DAILY Qty: 30 0RF Rx Instructions: Start on 07/16/2024 digoxin [Lanoxin] 250 mcg (0.25 mg) tablet 250 mcg PO DAILY Qty: 30 0RF Rx Instructions: Start on 07/16/2024 cefdinir 300 mg capsule 300 mg PO BID Qty: 10 0RF Rx Instructions: Start on 07/16/2024 Continued Entresto 97-103 mg tablet 1 tab PO BID furosemide 40 mg tablet 40 mg PO DAILY albuterol sulfate 2.5 MG/3 ML solution for nebulization 2.5 mg inhalation Q4H PRN PRN (Reason: Shortness Of Breath) pravastatin 40 MG tablet 40 mg PO QHS potassium chloride 20 MEQ tablet 40 meq PO DAILY pantoprazole 40 MG tablet 40 mg PO BID vitamins A,C,Z-lolm-xifgng 1 EACH capsule 1 ea PO BID fluticasone furoate-vilanterol 1 EACH blister with device 1 ea IH DAILY cholecalciferol (vitamin D3) 25 mcg (1,000 unit) capsule 3,000 unit PO DAILY apixaban 5 MG tablet 5 mg PO BID Discontinued metoprolol tartrate 50 mg tablet 50 mg PO BID Qty: 180 3RF diltiazem HCl 240 mg capsule,extended release 24 hr 240 mg PO DAILY Referrals / Follow Up: Clifton Del Valle Chi, MD [Primary Care Provider] - In 1 Week Disposition Disposition (needs filled in before D/C Order can be placed): Home, Self Care 07/15/24 1118Bretin Wolff DO CC: Dr. Clifton Del Valle MD ~ Signed [facility]03-23-2025 Progress note Author [facility]in [facility] [place] Note Date/Time July 14, 2024 11: [address] [place] [address] [facility] Medical Records Department [address] [place] [address] Progress Note - Hospitalist 07/14/24 1131 MR#: [id number] Acct: [id number] Name: CRISTINA JEFFREY Rep #:[id number] : 1945 79 From: Bertin Wolff DO PCP: Dr. Clifton Del Valle MD Status:ADM I N Location: [place] [address] Reason for Visit Reason for Visit: Diagnoses Pneumonia, unspecified organism (07/13/24) Subjective Subjective Patient was seen and examined today, he remains in atrial fibrillation with a rate between 101 and 110. I have made the decision to stop the patient Lasix for now due to his low blood pressure. Patient's chest x-ray today looked improved as compared with yesterday's chest x-ray. Patient's white blood cell count today was 14.5. Objective Data Objective Data Vital Signs: Vital Signs Temp Pulse Resp BP Pulse Ox O2 Del Method O2 Flow Rate 98.3 F 109 H 19 H 105/62 98 Nasal Cannula 2 07/14/24 08:00 07/14/24 10:35 07/14/24 10:00 07/14/24 10:00 07/14/24 10:00 07/14/24 10:00 07/14/24 10:00 Oxygen Flow Rate (L/min) 2 Oxygen Delivery Method Nasal Cannula Weight: 97 kg Body Mass Index (BMI) 31.6 Intake & Output: Intake and Output for Last 24 Hours 07/12/24 07/13/24 07/14/24 23:59 23:59 23:59 Intake Total 1742.66 / 1747.66 798.75 / 798.75 Output Total 175 / 325 400 / 400 Balance 1567.66 / 1422.66 398.75 / 398.75 Lab / Micro Data 07/14/24 04:29 07/14/24 04:29 Labs: Laboratory Results - last 24 hr 07/14/24 04:29: WBC 14.5 H, RBC 4.35 L, Hgb 14.2, Hct 41.5, MCV 95.4 H, MCH 32.6H, MCHC 34.2, RDW Std Deviation 52.5 H, RDW Coeff of Yaneli 14.8 H, Plt Count 238, MPV 9.7, Immature Gran % (Auto) 0.300, Neut % (Auto) 81.7 H, Lymph % (Auto) 9.4 L, [place]idan % (Auto) 8.1, Eos % (Auto) 0.3, Baso % (Auto) 0.2, Absolute Neuts (auto)11.9 H, Absolute Lymphs (auto) 1.37, Nucleated RBC % 0, Sodium 138, Potassium 4.0, Chloride 106, Carbon Dioxide 20.5 L, Anion Gap 11, BUN 14, Creatinine 0.92,Estim Creat Clear Calc 74.79, Est GFR (MDRD) Non-Af 85, BUN/Creatinine Ratio 15.6, Glucose 111 H, Calcium 8.5 Micro: Microbiology 07/13/24 15:11 Urine, Clean Catch Legionella Antigen - Final 07/13/24 15:11 Urine, Clean Catch Streptococcus pneumoniae Antigen (M - Final 07/13/24 07:05 Mucosa - Nose SARS-CoV-2, Influenza & RSV (PCR) - Final Radiography Diagnostic Testing: Radiology Impression Echocardiogram 07/13/24 08:37 Interpretation Summary Normal LV size. Left ventricular systolic function is normal. The left ventricular ejection fraction is 55 %. The left atrium is mildly enlarged. Ordering Physician: Bertin Wolff Referring Physician: Clifton Del Valle Chi Performed By: Trisha Chen RDCS Chest X-Ray 07/14/24 05:45 IMPRESSION: Prominent right upper lobe infiltrate is again seen, perhaps slightly diminishedsince the prior study. This is concerning for the presence of pneumonitis. No new or worsened pneumonic process is seen. No evidence of pulmonary edema. No pleural effusion or pneumothorax is seen. The cardiomediastinal silhouette is stable. Reading Location: [address] Physical Exam Narrative alert, oriented x3 and no apparent distress General Appearance: cooperative, well kempt and well developed Orientation / Consciousness: awake, oriented to person, oriented to place and oriented to time HEENT normocephalic, head/scalp atraumatic, hearing grossly normal bilaterally and moist oral mucous membranes Eyes PERRL, EOMs intact bilaterally and conjunctivae normal Neck supple, no JVD, thyroid normal and no carotid bruits General: trachea midline Resp normal respiratory effort, no retractions and no use of accessory muscles Resp Narrative: Inspiratory rales are noted over the right lower lung field Auscultation: Negative for rales, rhonchi or wheezes Cardio S1 normal heart sound, S2 normal heart sound, no murmurs, no rub and no gallops Cardio Narrative: Heart rate and rhythm is irregular and tachycardic GI normal to inspection, nondistended, normoactive bowel sounds, soft to palpation,non-tender and non-distended Extremity no clubbing, cyanosis or edema Skin no rashes or lesions noted General Skin Exam: no breakdown Neuro oriented x3, CN's II-XII intact bilaterally, no focal motor deficits and no sensory deficits noted Sensorium / Orientation: awake and alert Speech: speech normal Psych affect normal Assessment & Plan Assessment/Plan (1) Pneumonia: PLAN: Plan 1. Community-acquired pneumonia-patient will remain on Zithromax and Rocephin, urine for Legionella and strep pneumoniae antigens were negative, patient's RSV,influenza, and COVID-19 testing was also negative. #2 chronic atrial fibrillation-now with RVR-I have decided to stop the patient'sCardizem drip, he remains on metoprolol for rate control #3 chronic diastolic CHF-patient is on Entresto, metoprolol, and a diuretic #4 coronary artery disease-this appears stable at this time, patient will remainon his home medications #5 essential hypertension-patient will remain on his home medications with an increase in his metoprolol, patient's Cardizem will not be restarted #6 hypoxia secondary to #1-patient is on low-flow nasal cannula oxygen, pulse oxwill be monitored and oxygen will be adjusted as needed Total clinical time spent by myself addressing the patient's medical issues, reviewing all of his data, and collaborating with patient's care team: 35 minutes Charges/Coding Visit Charges Inpatient E&M: 66911 Subs Hosp L2 07/14/24 1134 <Electronically signed by Bertin Wolff DO> Cosigner Signature (if applicable): CC: ~ Signed [facility] Work Phone: [phone] 538-114403-23-2025 Progress note [facility] Medical Records Department [address] [place] [address] Progress Note - Hospitalist 07/14/24 1131 MR#: [id number] Acct: [id number] Name: WOJCIECHCRISTINA T Rep #:[id number] : 1945 79 From: Bertin Wolff DO PCP: Dr. Clifton Del Valle MD Status:ADM I N Location: [place] [address] Reason for Visit Reason for Visit: Diagnoses Pneumonia, unspecified organism (07/13/24) Subjective Subjective Patient was seen and examined today, he remains in atrial fibrillation with a rate between 101 and 110. I have made the decision to stop the patient Lasix for now due to his low blood pressure. Patient's chest x-ray today looked improved as compared with yesterday's chest x-ray. Patient's white blood cell count today was 14.5. Objective Data Objective Data Vital Signs: Vital Signs Temp Pulse Resp BP Pulse Ox O2 Del Method O2 Flow Rate 98.3 F 109 H 19 H 105/62 98 Nasal Cannula 2 07/14/24 08:00 07/14/24 10:35 07/14/24 10:00 07/14/24 10:00 07/14/24 10:00 07/14/24 10:00 07/14/24 10:00 Oxygen Flow Rate (L/min) 2 Oxygen Delivery Method Nasal Cannula Weight: 97 kg Body Mass Index (BMI) 31.6 Intake & Output: Intake and Output for Last 24 Hours 07/12/24 07/13/24 07/14/24 23:59 23:59 23:59 Intake Total 1742.66 / 1747.66 798.75 / 798.75 Output Total 175 / 325 400 / 400 Balance 1567.66 / 1422.66 398.75 / 398.75 Lab / Micro Data 07/14/24 04:29 07/14/24 04:29 Labs: Laboratory Results - last 24 hr 07/14/24 04:29: WBC 14.5 H, RBC 4.35 L, Hgb 14.2, Hct 41.5, MCV 95.4 H, MCH 32.6H, MCHC 34.2, RDW Std Deviation 52.5 H, RDW Coeff of Yaneli 14.8 H, Plt Count 238, MPV 9.7, Immature Gran % (Auto) 0.300, Neut % (Auto) 81.7 H, Lymph % (Auto) 9.4 L, Sheridan % (Auto) 8.1, Eos % (Auto) 0.3, Baso % (Auto) 0.2, Absolute Neuts (auto)11.9 H, Absolute Lymphs (auto) 1.37, Nucleated RBC % 0, Sodium 138, Potassium 4.0, Chloride 106, Carbon Dioxide 20.5 L, Anion Gap 11, BUN 14, Creatinine 0.92,Estim Creat Clear Calc 74.79, Est GFR (MDRD) Non-Af 85, BUN/Creatinine Ratio 15.6, Glucose 111 H, Calcium 8.5 Micro: Microbiology 07/13/24 15:11 Urine, Clean Catch Legionella Antigen - Final 07/13/24 15:11 Urine, Clean Catch Streptococcus pneumoniae Antigen (M - Final 07/13/24 07:05 Mucosa - Nose SARS-CoV-2, Influenza & RSV (PCR) - Final Radiography Diagnostic Testing: Radiology Impression Echocardiogram 07/13/24 08:37 Interpretation Summary Normal LV size. Left ventricular systolic function is normal. The left ventricular ejection fraction is 55 %. The left atrium is mildly enlarged. Ordering Physician: Bertin Wolff Referring Physician: Clifton Del Valle Chi Performed By: Trisha Chen, [facility] Chest X-Ray 07/14/24 05:45 IMPRESSION: Prominent right upper lobe infiltrate is again seen, perhaps slightly diminishedsince the prior study. This is concerning for the presence of pneumonitis. No new or worsened pneumonic process is seen. No evidence of pulmonary edema. No pleural effusion or pneumothorax is seen. The cardiomediastinal silhouette is stable. Reading Location: [address] Physical Exam Narrative alert, oriented x3 and no apparent distress General Appearance: cooperative, well kempt and well developed Orientation / Consciousness: awake, oriented to person, oriented to place and oriented to time HEENT normocephalic, head/scalp atraumatic, hearing grossly normal bilaterally and moist oral mucous membranes Eyes PERRL, EOMs intact bilaterally and conjunctivae normal Neck supple, no JVD, thyroid normal and no carotid bruits General: trachea midline Resp normal respiratory effort, no retractions and no use of accessory muscles Resp Narrative: Inspiratory rales are noted over the right lower lung field Auscultation: Negative for rales, rhonchi or wheezes Cardio S1 normal heart sound, S2 normal heart sound, no murmurs, no rub and no gallops Cardio Narrative: Heart rate and rhythm is irregular and tachycardic GI normal to inspection, nondistended, normoactive bowel sounds, soft to palpation,non-tender and non-distended Extremity no clubbing, cyanosis or edema Skin no rashes or lesions noted General Skin Exam: no breakdown Neuro oriented x3, CN's II-XII intact bilaterally, no focal motor deficits and no sensory deficits noted Sensorium / Orientation: awake and alert Speech: speech normal Psych affect normal Assessment & Plan Assessment/Plan (1) Pneumonia: PLAN: Plan 1. Community-acquired pneumonia-patient will remain on Zithromax and Rocephin, urine for Legionellaand strep pneumoniae antigens were negative, patient's RSV,influenza, and COVID-19 testing was alsonegative. #2 chronic atrial fibrillation-now with RVR-I have decided to stop the patient'sCardizem drip, he remains on metoprolol for rate control #3 chronic diastolic CHF-patient is on Entresto, metoprolol, and a diuretic #4 coronary artery disease-this appears stable at this time, patient will remainon his home medications #5 essential hypertension-patient will remain on his home medications with an increase in his metoprolol, patient's Cardizem will not be restarted #6 hypoxia secondary to #1-patient is on low-flow nasal cannula oxygen, pulse oxwill be monitored and oxygen will be adjusted as needed Total clinical time spent by myself addressing the patient's medical issues, reviewing all of his data, and collaborating with patient's care team: 35 minutes Charges/Coding Visit Charges Inpatient E&M: 28898 Subs Hosp L2 07/14/24 1138 Cosigner Signature (if applicable): CC: ~ Signed [facility]03-23-2025 Radiology Diagnostic study note [facility] Imaging Services [address] [place] [address] Chest 1 View (Portable) MR#: [id number] Acct: [id number] Name: CRISTINA JEFFREY Rep #: [id number] : 1945 M 79 From: Rodriguez Negron MD PCP: Dr. Clifton Del Valle MD Status: ADM I N Study:Chest 1 View (Portable) Date of Exam: 07/14/24 Exam# [id number] Ordering Dr: Bertin Parson DO PROCEDURE: CHEST 1 VIEW (PORTABLE) 07/14/2024 REASON FOR EXAM: PNEUMONIA TECHNIQUE: Frontal view of the chest. COMPARISON: Chest x-ray 07/13/2024. RAD/Chest 1 View (Portable) IMPRESSION: Prominent right upper lobe infiltrate is again seen, perhaps slightly diminishedsince the prior study. This is concerning for the presence of pneumonitis. No new or worsened pneumonic process is seen. No evidence of pulmonary edema. No pleural effusion or pneumothorax is seen. The cardiomediastinal silhouette is stable. Reading Location: [address] CC: Dr. Bertin Wolff DO; Dr. Clifton Del Valle MD ~ [employer]: Signed [facility]03-22-2025 Discharge summary Author [facility] Note Date/Time July 13, 2024 12: 10pm [facility] Medical Records Department [address] [place] [address] Emergency Department Summary 07/13/24 MR#: [id number] Acct: [id number] Name: CRISTINA JEFFREY Rep #:[id number] : 1945 79 From: Otf Jefferson MD PCP: Dr. Clifton Del Valle MD Status:ADM I N Location: [address] History of Present Illness Chief Complaint: Shortness of Breath Narrative Narrative: 79-year-old male past medical history of atrial fibrillation, hypertension, on Eliquis presents with shortness of breath and generalized weakness that has had since 1:00 this morning, approximately 6 hours ago. He states yesterday everything was fine, and this morning he awoke, with shortness of breath. He isfelt weak for the last 6 hours. He has history of diastolic CHF and is on a water pill, but he also takes diltiazem for rate control of his atrial fibrillation. He states that his leg swelling may have been worse over the lastcouple of days. No exacerbating or alleviating factors. He has had cold-like symptoms with chills and a cough as well. [facility] Medical History Diastolic CHF, chronic Atrial fibrillation Prostate cancer Chronic gastric ulcer Atherosclerosis of coronary artery of [place] heart without angina pectoris Essential hypertension PAF (paroxysmal atrial fibrillation) Atrial fibrillation with rapid ventricular response Pancreatitis Abnormal EKG Hypokalemia Metabolic alkalosis Hyperlipidemia Acute respiratory insufficiency Acute exacerbation of chronic obstructive pulmonary disease (COPD) COPD (chronic obstructive pulmonary disease) Paroxysmal SVT (supraventricular tachycardia) GERD (gastroesophageal reflux disease) CHF (congestive heart failure) Home Medications ?Medication ?Instructions ?Recorded ?Last Taken ?Type albuterol sulfate 2.5 mg/3 mL 2.5 mg inhalation Q4H MD N PRN 01/25/19 01/25/19 01:00 History (0.083 %) solution for nebulization Shortness Of Breat h fluticasone furoate 100 1 ea IH DAILY breathing 08/1001/24/19 18:00 History mcg-vilanterol 25 mcg/dose inhalation powder pantoprazole 40 mg tablet,delayed 40 mg PO BID stomach 01/25/19 01/24/19 18:00 History release potassium chloride 20 mEq 40 meq PO DAILY supplement 1 01/24/19 06:00 History tablet,extended release(part/cryst) pravastatin 40 mg tablet 40 mg PO QHS cholesterol 08/1001/24/19 18:00 History vitamins A,C,Q-gqxr-awvmnv 4,296 1 ea PO BID supplemen t 01/25/19 01/24/19 18:00 History mcg-226 mg-90 mg capsule cholecalciferol (vitamin D3) 25 3,000 unit PO DAILY fernando pplement 05/14/19 Unknown History mcg (1,000 unit) capsule metoprolol tartrate 50 mg tablet 50 mg PO BID #180 tab s 04/20/21 Unknown Rx diltiazem HCl 240 mg capsule,24 240 mg PO DAILY Unknown History hr,extended release furosemide 40 mg tablet 40 mg PO DAILY water pill Unknown History sacubitril 97 mg-valsartan 103 mg 1 tab PO BID 3 Unknown History tablet (Entresto) apixaban 5 mg tablet 5 mg PO BID afib 07/13/24 Un known History Allergy/AdvReac Type Severity Reaction Status Date / Time No Known Allergies Allergy Verified 07/13/24 06:44 Family History Mother CVA (cerebral vascular accident) Father Dementia Surgical History History of laparoscopic cholecystectomy (01/29/19) History of gastric surgery History of breast lump/mass excision Social History Smoking Status: Former smoker how long ago did patient quit smokin years ago alcohol intake: former year quit: 2016 substance use type: does not use caffeine: Yes ROS ROS ED ROS Narrative Constitutional: No fever, positive chills. Generalized weakness. Cardiovascular: No chest pain. No palpitations. Positive pedal edema. Respiratory: Positive cough, positive shortness of breath. Abdominal: No abdominal pain. No nausea. No vomiting. Genitourinary: No dysuria. No hematuria. Musculoskeletal: No myalgias. No arthralgias. Neurologic: No headaches. No dizziness. No lightheadedness. Skin: No rash. No change in color. EXAM Physical Exam Narrative Exam Narrative: Afebrile. Vital signs noted. Nontoxic-appearing. Cardiovascular examination reveals an irregularly irregular tachycardia. Lungs are clear to auscultation bilaterally anteriorly. Abdomen is soft and nontender with positive bowel sounds. Positive bilateral pedal edema equal and symmetric with chronic skin changes. Neurological examination nonfocal and nonlateralizing. Const Vital Signs: 07/13/24 06:44 07/13/24 06:48 07/13/24 06:48 Temperature 98.6 F 98.6 F Temperature Source Oral Oral Pulse Rate 128 H 128 H Respiratory Rate 20 H 20 H Respiratory Effort Short of Breath Labored Respiratory Pattern Tachypnea Blood Pressure 133/83 H 133/83 H Blood Pressure Mean 99 99 Blood Pressure Source Blood Pressure Position Blood Pressure Location Pulse Ox 94 94 Oxygen Delivery Method Room Air Room Air Oxygen Flow Rate (L/min) 07/13/24 07:02 07/13/24 07:15 07/13/24 07:16 Temperature Temperature Source Pulse Rate 143 H Respiratory Rate 28 H Respiratory Effort Respiratory Pattern Blood Pressure 94/51 L Blood Pressure Mean 65 Blood Pressure Source Blood Pressure Position Blood Pressure Location Pulse Ox 92 87 90 Oxygen Delivery Method Room Air Room Air Nasal Cannula Oxygen Flow Rate (L/min) 1 07/13/24 07:25 07/13/24 07:48 07/13/24 08:00 Temperature 98.1 F 98.2 F Temperature Source Oral Oral Pulse Rate 136 H 138 H Respiratory Rate 28 H 28 H Respiratory Effort Short of Breath Labored Respiratory Pattern Tachypnea Blood Pressure 98/47 L 94/57 L Blood Pressure Mean 64 69 Blood Pressure Source Blood Pressure Position Blood Pressure Location Pulse Ox 93 92 Oxygen Delivery Method Nasal Cannula Nasal Cannula Oxygen Flow Rate (L/min) 1 1 07/13/24 09:00 07/13/24 09:22 07/13/24 09:40 Temperature 98.2 F 98.3 F Temperature Source Oral Pulse Rate 132 H 145 H 128 H Respiratory Rate 26 H 26 H 24 H Respiratory Effort Respiratory Pattern Blood Pressure 93/63 95/57 L 89/57 L Blood Pressure Mean 73 69 67 Blood Pressure Source Blood Pressure Position Blood Pressure Location Pulse Ox 95 93 95 Oxygen Delivery Method Nasal Cannula Oxygen Flow Rate (L/min) 1 07/13/24 10:05 07/13/24 10:06 Temperature 98.3 F 98.3 F Temperature Source Oral Oral Pulse Rate 125 H 125 H Respiratory Rate 24 H 24 H Respiratory Effort Respiratory Pattern Blood Pressure 95/59 L 95/59 L Blood Pressure Mean 71 71 Blood Pressure Source Monitor Blood Pressure Position Semi-Fowlers Blood Pressure Location Left Arm Pulse Ox 92 93 Oxygen Delivery Method Nasal Cannula Nasal Cannula Oxygen Flow Rate (L/min) 1 2 MDM MDM MDM Narrative Medical decision making narrative: Differential diagnosis includes but not limited to A-fib with RVR with CHF versus pneumonia versus bronchitis versus dehydration versus electrolyte imbalance including hyponatremia versus hypokalemia. EKG was obtained and interpreted by myself independently as atrial fibrillation at [address] changes. No STEMI. For rate control although he has a history of CHF,I reviewed his medication list and he does take diltiazem 240 mg and Eliquis as well. Patient experienced a dip in his pulse ox though he is placed on nasal cannula oxygen at 1 L and is now satting 93%. I reviewed his laboratory work and he hasslight elevation of his white count to 13.4 with hemoglobin 16.9, hematocrit 49.2. Platelet count normal at 263. BMP is grossly unremarkable except for glucose of 122 with a normal anion gap of 13, BUN 14 with creatinine 1.10. Magnesium normal at 1.8, BNP slightly elevated at 940. Chest x-ray in 1 view interpreted by myself independently shows a right sided infiltrate/pneumonia. I reviewed the radiology report which confirms my independent interpretation. I reviewed his QTc on his EKG and it is normal at 399 ms. Blood culture will be drawn and he will be started on azithromycin and Rocephin. Regarding rate control, after diltiazem bolus he is still tachycardicin the 140s. I discussed the patient with Dr. Wolff for admission given his pneumonia and atrial fibrillation. He would like him given oral metoprolol succinate 50 mg. He will admit him to the PCU. However, even after oral medication, rate was not controlled. He was started on a diltiazem drip, and I haddiscussed the patient with Dr. Wolff again who would like him admitted to PCU stepdown. Disposition is admit in stable condition. History & Record Review Discussion w/independent historian: Patient Additional record(s) reviewed:: Prior labs Lab Data Attestation: I reviewed the patient's lab results. Labs: Laboratory Results - last 24 hr 07/13/24 06:54 WBC 13.4 H RBC 5.17 Hgb 16.9 H Hct 49.2 MCV 95.2 H MCH 32.7 H MCHC 34.3 RDW Std Deviation 49.3 H RDW Coeff of Yaneli 14.2 Plt Count 263 MPV 8.8 Immature Gran % (Auto) 0.400 Neut % (Auto) 89.1 H Lymph % (Auto) 4.8 L [place]idan % (Auto) 5.5 Eos % (Auto) 0.1 Baso % (Auto) 0.1 Absolute Neuts (auto) 12.0 H Absolute Lymphs (auto) 0.65 L Nucleated RBC % 0 Sodium 137 Potassium 4.6 Chloride 101 Carbon Dioxide 23.2 Anion Gap 13 BUN 14 Creatinine 1.10 Estim Creat Clear Calc 63.60 Est GFR (MDRD) Non-Af 68 BUN/Creatinine Ratio 12.7 Glucose 122 H Calcium 9.0 Magnesium 1.8 NT pro BNP II 940 Radiography Chest X-Ray - ED: 1 View, Read by ED Physician, Read by Radiologist and Right Infiltrate Diagnostic Testing: Clinical Impression(s) from Imaging Studies Chest X-Ray 07/13/24 07:15 IMPRESSION: Patchy multifocal airspace opacity mostly at the right mid to lower lung concerning for inflammatory/infectious process, correlate for pneumonia. Reading Location: [facility] Management Discussion w/another healthcare provider: Hospitalist (Dr. Wolff) Discharge Plan Dx/Rx/DC Orders Clinical Impression: Pneumonia, Atrial fibrillation with rapid ventricular response, Essential hypertension, COPD (chronic obstructive pulmonary disease), Hypoxia Disposition Disposition: [facility] Discharge Date/Time: 07/13/24 09:56 What to do if you have Problems For any increased pain, shortness of breath, bleeding, nausea or vomiting, chestpain, or any unexpected problems, contact your Primary Care Provider. Call [facility] ([phone]) or report to the closest Emergency Room. Call 911 if necessary. 07/13/24 1210 <Electronically signed by Otf Jefferson MD> Cosigner Signature (if applicable): CC: Dr. Clifton Del Valle MD ~ Signed [facility] Work Phone: 1(102) 214-888603-22-2025 History and physical note Author Bertin Wolff [facility] Note Date/Time July 13, 2024 10: 33am [facility] Medical Records Department [address] [place] [address] H&P Exam - Hospitalist 07/13/24 1019 MR#: [id number] Acct: [id number] Name: CRISTINA JEFFREY Rep #:[id number] : 1945 79 From: Bertin Wolff DO PCP: Dr. Clifton Del Valle MD Status:ADM I N Location: [place] [address]- 1 HPI - General General Date of Admission: 07/13/24 Date of Service: 07/13/24 Chief Complaint: Chills, shortness of breath HPI Narrative CRISTINA JEFFREY, is a 79 M who presents to the emergency room at [facility] with complaints of chills and shortness of breath which started this morning. Patient states he is felt hot at home but denies actual fever. Examination in the emergency room revealed the patient to be tachycardic and atrial fibrillation with a rate of approximately 135, labs obtained showed an elevated white blood cell count of 13.4 and hemoglobin was 16.9. Patient's chemistry panel was unremarkable, urinalysis was unremarkable. Chest x-ray showed a right lung infiltrate indicative of pneumonia. Patient required oxygen at 2 L/min. Patient was placed on a Cardizem drip and given oral metoprolol, he will be placed in stepdown on PCU, IV Rocephin and Zithromax was given. [facility] Medical History Diastolic CHF, chronic Atrial fibrillation Prostate cancer Chronic gastric ulcer Atherosclerosis of coronary artery of [place] heart without angina pectoris Essential hypertension PAF (paroxysmal atrial fibrillation) Atrial fibrillation with rapid ventricular response Pancreatitis Abnormal EKG Hypokalemia Metabolic alkalosis Hyperlipidemia Acute respiratory insufficiency Acute exacerbation of chronic obstructive pulmonary disease (COPD) COPD (chronic obstructive pulmonary disease) Paroxysmal SVT (supraventricular tachycardia) GERD (gastroesophageal reflux disease) CHF (congestive heart failure) Home Medications ?Medication ?Instructions ?Recorded ?Last Taken ?Type albuterol sulfate 2.5 mg/3 mL 2.5 mg inhalation Q4H MD N PRN 01/25/19 01/25/19 01:00 History (0.083 %) solution for nebulization Shortness Of Breat h fluticasone furoate 100 1 ea IH DAILY breathing 08/1001/24/19 18:00 History mcg-vilanterol 25 mcg/dose inhalation powder pantoprazole 40 mg tablet,delayed 40 mg PO BID stomach 01/25/19 01/24/19 18:00 History release potassium chloride 20 mEq 40 meq PO DAILY supplement 1 01/24/19 06:00 History tablet,extended release(part/cryst) pravastatin 40 mg tablet 40 mg PO QHS cholesterol 08/1001/24/19 18:00 History vitamins A,C,T-llni-calgre 4,296 1 ea PO BID supplemen t 01/25/19 01/24/19 18:00 History mcg-226 mg-90 mg capsule apixaban 5 mg tablet 5 mg PO BID afib ##0 9 01/24/19 18:00 Rx cholecalciferol (vitamin D3) 25 2,000 unit PO DAILY fernando pplement 05/14/19 Unknown History mcg (1,000 unit) capsule metoprolol tartrate 50 mg tablet 50 mg PO BID #180 tab s 04/20/21 Unknown Rx diltiazem HCl 240 mg capsule,24 240 mg PO DAILY Unknown History hr,extended release furosemide 40 mg tablet 40 mg PO DAILY water pill Unknown History sacubitril 97 mg-valsartan 103 mg 1 tab PO BID 3 Unknown History tablet (Entresto) Allergy/AdvReac Type Severity Reaction Status Date / Time No Known Allergies Allergy Verified 07/13/24 06:44 Family History Mother CVA (cerebral vascular accident) Father Dementia Surgical History History of laparoscopic cholecystectomy (01/29/19) History of gastric surgery History of breast lump/mass excision Social History Smoking Status: Former smoker how long ago did patient quit smokin years ago alcohol intake: former year quit: 2016 substance use type: does not use caffeine: Yes ROS Constitutional Constitutional: Reports chills, fatigue and malaise; Denies anorexia, change in weight, fever(s), night sweats or weakness Eyes Eyes: Denies blurry vision, change in vision, discharge from eye(s) or eye pain Cardiovascular Cardiovascular: Denies chest pain, claudication, edema or palpitations Respiratory/Chest Respiratory/Chest: Reports dyspnea, shortness of breath at rest and shortness ofbreath with exertion; Denies cough or hemoptysis Gastrointestinal Gastrointestinal: Denies abdominal pain, constipation, diarrhea, hematemesis, hematochezia, melena, nausea or vomiting Genitourinary Genitourinary: Denies dysuria, hematuria, urinary frequency, urinary hesitancy, urinary incontinence or urinary urgency Musculoskeletal Musculoskeletal: Denies back pain, joint pain, joint stiffness, joint swelling, myalgias or neck pain Neurologic Neurologic: Denies abnormal gait, abnormal speech, dizziness, focal weakness, headache(s), loss of vision, numbness, other visual disturbances, paresthesias, syncope or tingling Psychiatric Psychiatric: Denies anxiety, cognitive impairment, depression, irritability, mood swings or suicidal ideation Endocrine Endocrinology: Denies change in body appearance, cold intolerance, excessive sweating, heat intolerance, polydipsia or polyuria Hematologic/Lymphatic Hematologic/Lymphatic: Denies none, anemia, easy bleeding, easy bruising or lymphadenopathy Allergic/Immunologic Allergic/Immunologic: Denies rhinitis, urticaria, eczemia or asthma Vital Signs Vital Signs Vital Signs: 07/13/24 06:44 07/13/24 06:48 07/13/24 06:48 Temperature 98.6 F 98.6 F Temperature Source Oral Oral Pulse Rate 128 H 128 H Respiratory Rate 20 H 20 H Respiratory Effort Short of Breath Labored Respiratory Pattern Tachypnea Blood Pressure 133/83 H 133/83 H Blood Pressure Mean 99 99 Pulse Ox 94 94 Oxygen Delivery Method Room Air Room Air Oxygen Flow Rate (L/min) 07/13/24 07:02 07/13/24 07:15 07/13/24 07:16 Temperature Temperature Source Pulse Rate 143 H Respiratory Rate 28 H Respiratory Effort Respiratory Pattern Blood Pressure 94/51 L Blood Pressure Mean 65 Pulse Ox 92 87 90 Oxygen Delivery Method Room Air Room Air Nasal Cannula Oxygen Flow Rate (L/min) 1 07/13/24 07:25 07/13/24 07:48 07/13/24 08:00 Temperature 98.1 F 98.2 F Temperature Source Oral Oral Pulse Rate 136 H 138 H Respiratory Rate 28 H 28 H Respiratory Effort Short of Breath Labored Respiratory Pattern Tachypnea Blood Pressure 98/47 L 94/57 L Blood Pressure Mean 64 69 Pulse Ox 93 92 Oxygen Delivery Method Nasal Cannula Nasal Cannula Oxygen Flow Rate (L/min) 1 1 07/13/24 09:00 07/13/24 09:22 07/13/24 09:40 Temperature 98.2 F 98.3 F Temperature Source Oral Pulse Rate 132 H 145 H 128 H Respiratory Rate 26 H 26 H 24 H Respiratory Effort Respiratory Pattern Blood Pressure 93/63 95/57 L 89/57 L Blood Pressure Mean 73 69 67 Pulse Ox 95 93 95 Oxygen Delivery Method Nasal Cannula Oxygen Flow Rate (L/min) 1 07/13/24 10:06 Temperature 98.3 F Temperature Source Oral Pulse Rate 125 H Respiratory Rate 24 H Respiratory Effort Respiratory Pattern Blood Pressure 95/59 L Blood Pressure Mean 71 Pulse Ox 93 Oxygen Delivery Method Nasal Cannula Oxygen Flow Rate (L/min) 2 Weight Weight: 97 kg Body Mass Index (BMI) 31.6 Physical Exam Const alert, oriented x3 and no apparent distress General Appearance: cooperative, well kempt and well developed Orientation / Consciousness: awake, oriented to person, oriented to place and oriented to time HEENT normocephalic, head/scalp atraumatic, hearing grossly normal bilaterally and moist oral mucous membranes Eyes PERRL, EOMs intact bilaterally and conjunctivae normal Neck supple, no JVD, thyroid normal and no carotid bruits General: trachea midline Resp normal respiratory effort, no retractions and no use of accessory muscles Resp Narrative: Inspiratory rales are noted over the right lower lung field Auscultation: Negative for rales, rhonchi or wheezes Cardio S1 normal heart sound, S2 normal heart sound, no murmurs, no rub and no gallops Cardio Narrative: Heart rate and rhythm is irregular and tachycardic GI normal to inspection, nondistended, normoactive bowel sounds, soft to palpation,non-tender and non-distended Extremity no clubbing, cyanosis or edema Skin no rashes or lesions noted General Skin Exam: no breakdown Neuro oriented x3, CN's II-XII intact bilaterally, no focal motor deficits and no sensory deficits noted Sensorium / Orientation: awake and alert Speech: speech normal Psych affect normal Results Lab / Micro Data 07/13/24 06:54 07/13/24 06:54 Labs: Laboratory Results - last 24 hr 07/13/24 06:54: WBC 13.4 H, RBC 5.17, Hgb 16.9 H, Hct 49.2, MCV 95.2 H, MCH 32.7H, MCHC 34.3, RDW Std Deviation 49.3 H, RDW Coeff of Yanlei 14.2, Plt Count 263, MPV 8.8, Immature Gran % (Auto) 0.400, Neut % (Auto) 89.1 H, Lymph % (Auto) 4.8 L, [place] % (Auto) 5.5, Eos % (Auto) 0.1, Baso % (Auto) 0.1, Absolute Neuts (auto)12.0 H, Absolute Lymphs (auto) 0.65 L, Nucleated RBC % 0, Sodium 137, Potassium 4.6, Chloride 101, Carbon Dioxide 23.2, Anion Gap 13, BUN 14, Creatinine 1.10, Estim Creat Clear Calc 63.60, Est GFR (MDRD) Non-Af 68, BUN/Creatinine Ratio 12.7, Glucose 122 H, Calcium 9.0, Magnesium 1.8, NT pro BNP II 940 Imaging Radiology Impression Chest X-Ray 07/13/24 07:15 IMPRESSION: Patchy multifocal airspace opacity mostly at the right mid to lower lung concerning for inflammatory/infectious process, correlate for pneumonia. Reading Location: [id number] Assessment & Plan Assessment/Plan (1) Pneumonia: PLAN: Plan 1. Community-acquired pneumonia-patient will be admitted to PCU, IV Rocephin and Zithromax will be continued, patient will be on aerosol treatments, chest x-ray will be repeated tomorrow, CBC will be repeated tomorrow. #2 chronic atrial fibrillation-now with RVR-patient is on a Cardizem drip presently, I have elected to increase the patient's metoprolol, patient will be monitored, echocardiogram will be obtained, patient is on Eliquis #3 chronic diastolic CHF-patient is on Entresto, metoprolol, diltiazem, and a diuretic #4 coronary artery disease-this appears stable at this time, patient will remainon his home medications #5 essential hypertension-patient will remain on his home medications, I have elected to increase his metoprolol due to his tachycardia. #6 hypoxia secondary to #1-patient is on low-flow nasal cannula oxygen, pulse oxwill be monitored and oxygen will be adjusted as needed Total clinical time spent by myself addressing the patient's medical issues, reviewing all of his data, and collaborating with patient's care team: 75 minutes Charges/Coding Visit Charges Inpatient E&M: 59133 Init Hosp L3 07/13/24 1033 <Electronically signed by Bertin Wolff DO> Cosigner Signature (if applicable): CC: Dr. Bertin Wolff DO; Dr. Clifton Del Valle MD~ Signed [facility] Work Phone: 1(521) 491-321403-22-2025 Discharge summary [facility] Medical Records Department [address] [place] [address] Emergency Department Summary 07/13/24 MR#: [id number] Acct: [id number] Name: CRISTINA JEFFREY Rep #:[id number] : 1945 79 From: Otf Jefferson MD PCP: Dr. Clifton Del Valle MD Status:ADM I N Location: [address] History of Present Illness Chief Complaint: Shortness of Breath Narrative Narrative: 79-year-old male past medical history of atrial fibrillation, hypertension, on Eliquis presents with shortness of breath and generalized weakness that has had since 1:00 this morning, approximately 6hours ago. He states yesterday everything was fine, and this morning he awoke, with shortness of breath. He isfelt weak for the last 6 hours. He has history of diastolic CHF and is on a water pill, but he also takes diltiazem for rate control of his atrial fibrillation. He states that his leg swelling may have been worse over the lastcouple of days. No exacerbating or alleviating factors. He has had cold-like symptoms with chills and a cough as well. [facility] Medical History Diastolic CHF, chronic Atrial fibrillation Prostate cancer Chronic gastric ulcer Atherosclerosis of coronary artery of [place] heart without angina pectoris Essential hypertension PAF (paroxysmal atrial fibrillation) Atrial fibrillation with rapid ventricular response Pancreatitis Abnormal EKG Hypokalemia Metabolic alkalosis Hyperlipidemia Acute respiratory insufficiency Acute exacerbation of chronic obstructive pulmonary disease (COPD) COPD (chronic obstructive pulmonary disease) Paroxysmal SVT (supraventricular tachycardia) GERD (gastroesophageal reflux disease) CHF (congestive heart failure) Home Medications ?Medication ?Instructions ?Recorded ?Last Taken ?Type albuterol sulfate 2.5 mg/3 mL 2.5 mg inhalation Q4H MD N PRN 01/25/19 01/25/19 01:00 History (0.083 %) solution for nebulization Shortness Of Breat h fluticasone furoate 100 1 ea IH DAILY breathing 08/1001/24/19 18:00 History mcg-vilanterol 25 mcg/dose inhalation powder pantoprazole 40 mg tablet,delayed 40 mg PO BID stomach 01/25/19 01/24/19 18:00 History release potassium chloride 20 mEq 40 meq PO DAILY supplement 1 01/24/19 06:00 History tablet,extended release(part/cryst) pravastatin 40 mg tablet 40 mg PO QHS cholesterol 08/1001/24/19 18:00 History vitamins A,C,T-nyvm-dgexaq 4,296 1 ea PO BID supplemen t 01/25/19 01/24/19 18:00 History mcg-226 mg-90 mg capsule cholecalciferol (vitamin D3) 25 3,000 unit PO DAILY fernando pplement 05/14/19 Unknown History mcg (1,000 unit) capsule metoprolol tartrate 50 mg tablet 50 mg PO BID #180 tab s 04/20/21 Unknown Rx diltiazem HCl 240 mg capsule,24 240 mg PO DAILY Unknown History hr,extended release furosemide 40 mg tablet 40 mg PO DAILY water pill Unknown History sacubitril 97 mg-valsartan 103 mg 1 tab PO BID 3 Unknown History tablet (Entresto) apixaban 5 mg tablet 5 mg PO BID afib 07/13/24 Un known History Allergy/AdvReac Type Severity Reaction Status Date / Time No Known Allergies Allergy Verified 07/13/24 06:44 Family History Mother CVA (cerebral vascular accident) Father Dementia Surgical History History of laparoscopic cholecystectomy (01/29/19) History of gastric surgery History of breast lump/mass excision Social History Smoking Status: Former smoker how long ago did patient quit smokin years ago alcohol intake: former year quit: 2016 substance use type: does not use caffeine: Yes ROS ROS ED ROS Narrative Constitutional: No fever, positive chills. Generalized weakness. Cardiovascular: No chest pain. No palpitations. Positive pedal edema. Respiratory: Positive cough, positive shortness of breath. Abdominal: No abdominal pain. No nausea. No vomiting. Genitourinary: No dysuria. No hematuria. Musculoskeletal: No myalgias. No arthralgias. Neurologic: No headaches. No dizziness. No lightheadedness. Skin: No rash. No change in color. EXAM Physical Exam Narrative Exam Narrative: Afebrile. Vital signs noted. Nontoxic-appearing. Cardiovascular examination reveals an irregularly irregular tachycardia. Lungs are clear to auscultation bilaterally anteriorly. Abdomen is soft and nontender with positive bowel sounds. Positive bilateral pedal edema equal and symmetric with chronicskin changes. Neurological examination nonfocal and nonlateralizing. Const Vital Signs: 07/13/24 06:44 07/13/24 06:48 07/13/24 06:48 Temperature 98.6 F 98.6 F Temperature Source Oral Oral Pulse Rate 128 H 128 H Respiratory Rate 20 H 20 H Respiratory Effort Short of Breath Labored Respiratory Pattern Tachypnea Blood Pressure 133/83 H 133/83 H Blood Pressure Mean 99 99 Blood Pressure Source Blood Pressure Position Blood Pressure Location Pulse Ox 94 94 Oxygen Delivery Method Room Air Room Air Oxygen Flow Rate (L/min) 07/13/24 07:02 07/13/24 07:15 07/13/24 07:16 Temperature Temperature Source Pulse Rate 143 H Respiratory Rate 28 H Respiratory Effort Respiratory Pattern Blood Pressure 94/51 L Blood Pressure Mean 65 Blood Pressure Source Blood Pressure Position Blood Pressure Location Pulse Ox 92 87 90 Oxygen Delivery Method Room Air Room Air Nasal Cannula Oxygen Flow Rate (L/min) 1 07/13/24 07:25 07/13/24 07:48 07/13/24 08:00 Temperature 98.1 F 98.2 F Temperature Source Oral Oral Pulse Rate 136 H 138 H Respiratory Rate 28 H 28 H Respiratory Effort Short of Breath Labored Respiratory Pattern Tachypnea Blood Pressure 98/47 L 94/57 L Blood Pressure Mean 64 69 Blood Pressure Source Blood Pressure Position Blood Pressure Location Pulse Ox 93 92 Oxygen Delivery Method Nasal Cannula Nasal Cannula Oxygen Flow Rate (L/min) 1 1 07/13/24 09:00 07/13/24 09:22 07/13/24 09:40 Temperature 98.2 F 98.3 F Temperature Source Oral Pulse Rate 132 H 145 H 128 H Respiratory Rate 26 H 26 H 24 H Respiratory Effort Respiratory Pattern Blood Pressure 93/63 95/57 L 89/57 L Blood Pressure Mean 73 69 67 Blood Pressure Source Blood Pressure Position Blood Pressure Location Pulse Ox 95 93 95 Oxygen Delivery Method Nasal Cannula Oxygen Flow Rate (L/min) 1 07/13/24 10:05 07/13/24 10:06 Temperature 98.3 F 98.3 F Temperature Source Oral Oral Pulse Rate 125 H 125 H Respiratory Rate 24 H 24 H Respiratory Effort Respiratory Pattern Blood Pressure 95/59 L 95/59 L Blood Pressure Mean 71 71 Blood Pressure Source Monitor Blood Pressure Position Semi-Fowlers Blood Pressure Location Left Arm Pulse Ox 92 93 Oxygen Delivery Method Nasal Cannula Nasal Cannula Oxygen Flow Rate (L/min) 1 2 MDM MDM MDM Narrative Medical decision making narrative: Differential diagnosis includes but not limited to A-fib with RVR with CHF versus pneumonia versus bronchitis versus dehydration versus electrolyte imbalance including hyponatremia versus hypokalemia. EKG was obtained and interpreted by myself independently as atrial fibrillation at [address] changes. No STEMI. For rate control although he has a history of CHF,I reviewed his medication list and he does take diltiazem 240 mg and Eliquis as well. Patient experienced a dip in his pulse ox though he is placed on nasal cannula oxygen at 1 L and isnow satting 93%. I reviewed his laboratory work and he hasslight elevation of his white count to 13.4 with hemoglobin 16.9, hematocrit 49.2. Platelet count normal at 263. BMP is grossly unremarkable except for glucose of 122 with a normal anion gap of 13, BUN 14 with creatinine 1.10. Magnesium normal at 1.8, BNP slightly elevated at 940. Chest x-ray in 1 view interpreted by myself independently shows a right sided infiltrate/pneumonia.I reviewed the radiology report which confirms my independent interpretation. I reviewed his QTc onhis EKG and it is normal at 399 ms. Blood culture will be drawn and he will be started on azithromycin and Rocephin. Regarding rate control, after diltiazem bolus he is still tachycardicin the 140s. I discussed the patient with Dr. Wolff for admission given his pneumonia and atrial fibrillation. He would like him given oral metoprolol succinate 50 mg. He will admit him to the PCU. However, even after oral medication, rate was not controlled. He was started on a diltiazem drip, and I haddiscussed the patient with Dr. Wolff again who would like him admitted to PCU stepdown. Disposition is admit in stable condition. History & Record Review Discussion w/independent historian: Patient Additional record(s) reviewed:: Prior labs Lab Data Attestation: I reviewed the patient's lab results. Labs: Laboratory Results - last 24 hr 07/13/24 06:54 WBC 13.4 H RBC 5.17 Hgb 16.9 H Hct 49.2 MCV 95.2 H MCH 32.7 H MCHC 34.3 RDW Std Deviation 49.3 H RDW Coeff of Yaneli 14.2 Plt Count 263 MPV 8.8 Immature Gran % (Auto) 0.400 Neut % (Auto) 89.1 H Lymph % (Auto) 4.8 L Sheridan % (Auto) 5.5 Eos % (Auto) 0.1 Baso % (Auto) 0.1 Absolute Neuts (auto) 12.0 H Absolute Lymphs (auto) 0.65 L Nucleated RBC % 0 Sodium 137 Potassium 4.6 Chloride 101 Carbon Dioxide 23.2 Anion Gap 13 BUN 14 Creatinine 1.10 Estim Creat Clear Calc 63.60 Est GFR (MDRD) Non-Af 68 BUN/Creatinine Ratio 12.7 Glucose 122 H Calcium 9.0 Magnesium 1.8 NT pro BNP II 940 Radiography Chest X-Ray - ED: 1 View, Read by ED Physician, Read by Radiologist and Right Infiltrate Diagnostic Testing: Clinical Impression(s) from Imaging Studies Chest X-Ray 07/13/24 07:15 IMPRESSION: Patchy multifocal airspace opacity mostly at the right mid to lower lung concerning for inflammatory/infectious process, correlate for pneumonia. Reading Location: [facility] Management Discussion w/another healthcare provider: Hospitalist (Dr. Wolff) Discharge Plan Dx/Rx/DC Orders Clinical Impression: Pneumonia, Atrial fibrillation with rapid ventricular response, Essential hypertension, COPD (chronic obstructive pulmonary disease), Hypoxia Disposition Disposition: [facility] Discharge Date/Time: 07/13/24 09:56 What to do if you have Problems For any increased pain, shortness of breath, bleeding, nausea or vomiting, chestpain, or any unexpected problems, contact your Primary Care Provider. Call [facility] ([phone]) or report tothe closest Emergency Room. Call 911 if necessary. 07/13/24 1210 Cosigner Signature (if applicable): CC: Dr. Clifton Del Valle MD ~ Signed [facility]03-22-2025 History and physical note [facility] Medical Records Department [address] [place] [address] H&P Exam - Hospitalist 07/13/24 1019 MR#: [id number] Acct: [id number] Name: CRISTINA JEFFREY Rep #:[id number] : 1945 79 From: Bertin Wolff DO PCP: Dr. Clifton Del Valle MD Status:ADM I N Location: [place] [address] HPI - General General Date of Admission: 07/13/24 Date of Service: 07/13/24 Chief Complaint: Chills, shortness of breath HPI Narrative CRISTINA JEFFREY, is a 79 M who presents to the emergency room at [facility] with complaints of chills and shortness of breath which started this morning. Patient states he is felt hot athome but denies actual fever. Examination in the emergency room revealed the patient to be tachycardic and atrial fibrillation with a rate of approximately 135, labs obtained showed an elevated whiteblood cell count of 13.4 and hemoglobin was 16.9. Patient's chemistry panel was unremarkable, urinalysis was unremarkable. Chest x-ray showed a right lung infiltrate indicative of pneumonia. Patient required oxygen at 2 L/min. Patient was placed on a Cardizem drip and given oral metoprolol, he will be placed in stepdown on PCU, IV Rocephin and Zithromax was given. [facility] Medical History Diastolic CHF, chronic Atrial fibrillation Prostate cancer Chronic gastric ulcer Atherosclerosis of coronary artery of [place] heart without angina pectoris Essential hypertension PAF (paroxysmal atrial fibrillation) Atrial fibrillation with rapid ventricular response Pancreatitis Abnormal EKG Hypokalemia Metabolic alkalosis Hyperlipidemia Acute respiratory insufficiency Acute exacerbation of chronic obstructive pulmonary disease (COPD) COPD (chronic obstructive pulmonary disease) Paroxysmal SVT (supraventricular tachycardia) GERD (gastroesophageal reflux disease) CHF (congestive heart failure) Home Medications ?Medication ?Instructions ?Recorded ?Last Taken ?Type albuterol sulfate 2.5 mg/3 mL 2.5 mg inhalation Q4H MD N PRN 01/25/19 01/25/19 01:00 History (0.083 %) solution for nebulization Shortness Of Breat h fluticasone furoate 100 1 ea IH DAILY breathing 08/1001/24/19 18:00 History mcg-vilanterol 25 mcg/dose inhalation powder pantoprazole 40 mg tablet,delayed 40 mg PO BID stomach 01/25/19 01/24/19 18:00 History release potassium chloride 20 mEq 40 meq PO DAILY supplement 1 01/24/19 06:00 History tablet,extended release(part/cryst) pravastatin 40 mg tablet 40 mg PO QHS cholesterol 08/1001/24/19 18:00 History vitamins A,C,G-djee-istezz 4,296 1 ea PO BID supplemen t 01/25/19 01/24/19 18:00 History mcg-226 mg-90 mg capsule apixaban 5 mg tablet 5 mg PO BID afib ##0 9 01/24/19 18:00 Rx cholecalciferol (vitamin D3) 25 2,000 unit PO DAILY fernando pplement 05/14/19 Unknown History mcg (1,000 unit) capsule metoprolol tartrate 50 mg tablet 50 mg PO BID #180 tab s 04/20/21 Unknown Rx diltiazem HCl 240 mg capsule,24 240 mg PO DAILY Unknown History hr,extended release furosemide 40 mg tablet 40 mg PO DAILY water pill Unknown History sacubitril 97 mg-valsartan 103 mg 1 tab PO BID 3 Unknown History tablet (Entresto) Allergy/AdvReac Type Severity Reaction Status Date / Time No Known Allergies Allergy Verified 07/13/24 06:44 Family History Mother CVA (cerebral vascular accident) Father Dementia Surgical History History of laparoscopic cholecystectomy (01/29/19) History of gastric surgery History of breast lump/mass excision Social History Smoking Status: Former smoker how long ago did patient quit smokin years ago alcohol intake: former year quit: 2017 substance use type: does not use caffeine: Yes ROS Constitutional Constitutional: Reports chills, fatigue and malaise; Denies anorexia, change in weight, fever(s), night sweats or weakness Eyes Eyes: Denies blurry vision, change in vision, discharge from eye(s) or eye pain Cardiovascular Cardiovascular: Denies chest pain, claudication, edema or palpitations Respiratory/Chest Respiratory/Chest: Reports dyspnea, shortness of breath at rest and shortness ofbreath with exertion; Denies cough or hemoptysis Gastrointestinal Gastrointestinal: Denies abdominal pain, constipation, diarrhea, hematemesis, hematochezia, melena,nausea or vomiting Genitourinary Genitourinary: Denies dysuria, hematuria, urinary frequency, urinary hesitancy, urinary incontinence or urinary urgency Musculoskeletal Musculoskeletal: Denies back pain, joint pain, joint stiffness, joint swelling, myalgias or neck pain Neurologic Neurologic: Denies abnormal gait, abnormal speech, dizziness, focal weakness, headache(s), loss of vision, numbness, other visual disturbances, paresthesias, syncope or tingling Psychiatric Psychiatric: Denies anxiety, cognitive impairment, depression, irritability, mood swings or suicidal ideation Endocrine Endocrinology: Denies change in body appearance, cold intolerance, excessive sweating, heat intolerance, polydipsia or polyuria Hematologic/Lymphatic Hematologic/Lymphatic: Denies none, anemia, easy bleeding, easy bruising or lymphadenopathy Allergic/Immunologic Allergic/Immunologic: Denies rhinitis, urticaria, eczemia or asthma Vital Signs Vital Signs Vital Signs: 07/13/24 06:44 07/13/24 06:48 07/13/24 06:48 Temperature 98.6 F 98.6 F Temperature Source Oral Oral Pulse Rate 128 H 128 H Respiratory Rate 20 H 20 H Respiratory Effort Short of Breath Labored Respiratory Pattern Tachypnea Blood Pressure 133/83 H 133/83 H Blood Pressure Mean 99 99 Pulse Ox 94 94 Oxygen Delivery Method Room Air Room Air Oxygen Flow Rate (L/min) 07/13/24 07:02 07/13/24 07:15 07/13/24 07:16 Temperature Temperature Source Pulse Rate 143 H Respiratory Rate 28 H Respiratory Effort Respiratory Pattern Blood Pressure 94/51 L Blood Pressure Mean 65 Pulse Ox 92 87 90 Oxygen Delivery Method Room Air Room Air Nasal Cannula Oxygen Flow Rate (L/min) 1 07/13/24 07:25 07/13/24 07:48 07/13/24 08:00 Temperature 98.1 F 98.2 F Temperature Source Oral Oral Pulse Rate 136 H 138 H Respiratory Rate 28 H 28 H Respiratory Effort Short of Breath Labored Respiratory Pattern Tachypnea Blood Pressure 98/47 L 94/57 L Blood Pressure Mean 64 69 Pulse Ox 93 92 Oxygen Delivery Method Nasal Cannula Nasal Cannula Oxygen Flow Rate (L/min) 1 1 07/13/24 09:00 07/13/24 09:22 07/13/24 09:40 Temperature 98.2 F 98.3 F Temperature Source Oral Pulse Rate 132 H 145 H 128 H Respiratory Rate 26 H 26 H 24 H Respiratory Effort Respiratory Pattern Blood Pressure 93/63 95/57 L 89/57 L Blood Pressure Mean 73 69 67 Pulse Ox 95 93 95 Oxygen Delivery Method Nasal Cannula Oxygen Flow Rate (L/min) 1 07/13/24 10:06 Temperature 98.3 F Temperature Source Oral Pulse Rate 125 H Respiratory Rate 24 H Respiratory Effort Respiratory Pattern Blood Pressure 95/59 L Blood Pressure Mean 71 Pulse Ox 93 Oxygen Delivery Method Nasal Cannula Oxygen Flow Rate (L/min) 2 Weight Weight: 97 kg Body Mass Index (BMI) 31.6 Physical Exam Const alert, oriented x3 and no apparent distress General Appearance: cooperative, well kempt and well developed Orientation / Consciousness: awake, oriented to person, oriented to place and oriented to time HEENT normocephalic, head/scalp atraumatic, hearing grossly normal bilaterally and moist oral mucous membranes Eyes PERRL, EOMs intact bilaterally and conjunctivae normal Neck supple, no JVD, thyroid normal and no carotid bruits General: trachea midline Resp normal respiratory effort, no retractions and no use of accessory muscles Resp Narrative: Inspiratory rales are noted over the right lower lung field Auscultation: Negative for rales, rhonchi or wheezes Cardio S1 normal heart sound, S2 normal heart sound, no murmurs, no rub and no gallops Cardio Narrative: Heart rate and rhythm is irregular and tachycardic GI normal to inspection, nondistended, normoactive bowel sounds, soft to palpation,non-tender and non-distended Extremity no clubbing, cyanosis or edema Skin no rashes or lesions noted General Skin Exam: no breakdown Neuro oriented x3, CN's II-XII intact bilaterally, no focal motor deficits and no sensory deficits noted Sensorium / Orientation: awake and alert Speech: speech normal Psych affect normal Results Lab / Micro Data 07/13/24 06:54 07/13/24 06:54 Labs: Laboratory Results - last 24 hr 07/13/24 06:54: WBC 13.4 H, RBC 5.17, Hgb 16.9 H, Hct 49.2, MCV 95.2 H, MCH 32.7H, MCHC 34.3, RDW Std Deviation 49.3 H, RDW Coeff of Yaneli 14.2, Plt Count 263, MPV 8.8, Immature Gran % (Auto) 0.400, Neut % (Auto) 89.1 H, Lymph % (Auto) 4.8 L, Sheridan % (Auto) 5.5, Eos % (Auto) 0.1, Baso % (Auto) 0.1, Absolute Neuts (auto)12.0 H, Absolute Lymphs (auto) 0.65 L, Nucleated RBC % 0, Sodium 137, Potassium 4.6, Chloride 101, Carbon Dioxide 23.2, Anion Gap 13, BUN 14, Creatinine 1.10, Estim Creat Clear Calc63.60, Est GFR (MDRD) Non-Af 68, BUN/Creatinine Ratio 12.7, Glucose 122 H, Calcium 9.0, Magnesium 1.8, NT pro BNP II 940 Imaging Radiology Impression Chest X-Ray 07/13/24 07:15 IMPRESSION: Patchy multifocal airspace opacity mostly at the right mid to lower lung concerning for inflammatory/infectious process, correlate for pneumonia. Reading Location: [id number] Assessment & Plan Assessment/Plan (1) Pneumonia: PLAN: Plan 1. Community-acquired pneumonia-patient will be admitted to PCU, IV Rocephin and Zithromax will be continued, patient will be on aerosol treatments, chest x-ray will be repeated tomorrow, CBC will berepeated tomorrow. #2 chronic atrial fibrillation-now with RVR-patient is on a Cardizem drip presently, I have electedto increase the patient's metoprolol, patient will be monitored, echocardiogram will be obtained, patient is on Eliquis #3 chronic diastolic CHF-patient is on Entresto, metoprolol, diltiazem, and a diuretic #4 coronary artery disease-this appears stable at this time, patient will remainon his home medications #5 essential hypertension-patient will remain on his home medications, I have elected to increase his metoprolol due to his tachycardia. #6 hypoxia secondary to #1-patient is on low-flow nasal cannula oxygen, pulse oxwill be monitored and oxygen will be adjusted as needed Total clinical time spent by myself addressing the patient's medical issues, reviewing all of his data, and collaborating with patient's care team: 75 minutes Charges/Coding Visit Charges Inpatient E&M: 61614 Init Hosp L3 07/13/24 1033 Cosigner Signature (if applicable): CC: Dr. Bertin Wolff DO; Dr. Clifton Del Valle MD~ Signed [facility]03-22-2025 Radiology Diagnostic study note [facility] Imaging Services [address] [place] [address] [id number] Chest 1 View (Portable) MR#: [id number] Acct: [id number] Name: CRISTINA JEFFREY Rep #: [id number] : 1945 M 79 From: Rodo España MD PCP: Dr. Clifton Del Valle MD Status: REG E R Study:Chest 1 View (Portable) Date of Exam: 07/13/24 Exam# [id number] Ordering Dr: Otf Jefferson MD PROCEDURE: CHEST 1 VIEW (PORTABLE) 07/13/2024 REASON FOR EXAM: SHORTNESS OF BREATH TECHNIQUE: Frontal view of the chest. 2 images to include the entire chest COMPARISON: 01/30/2019 FINDINGS: Patchy multifocal airspace opacity mostly at the right mid to lower lung. The left lung is clear. No evidence of pleural effusion. The cardiac silhouette is at the upper limits for size. RAD/Chest 1 View (Portable) IMPRESSION: Patchy multifocal airspace opacity mostly at the right mid to lower lung concerning for inflammatory/infectious process, correlate for pneumonia. Reading Location: [id number] CC: Dr. Otf Jefferson MD; Dr. Clifton Del Valle MD ~ [employer] Att[employer]: Signed [facility]03-11-2025 Evaluation note* Diagnosis Onset Date Resolution Status Admit Date Atherosclerosis of coronary artery of [place] heart without angina pectoris chronic July 02, 2024 11:15am Atrial fibrillation chronic July 02, 2024 11:15am Diastolic CHF, chronic chronic [facility] 2024 11:15am Essential hypertension chronic [facility] 2024 11:15am Hypoxia acute July 13 8:27am Pneumonia acute July 13 8:27am Atrial fibrillation with rap id ventricular response chronic July 13, 2024 8:27am COPD (chronic obstructive pulmonary disease) chronic July 13, 025 8:27am Essential hypertension chronic [facility] 2024 8:27am [facility] Work Phone: [phone] Evaluation note* Diagnosis Onset Date Resolution Status Admit Date Atherosclerosis of coronary artery of [place] heart without angina pectoris chronic July 02, 2024 11:15am Atrial fibrillation chronic July 02, 2024 11:15am Diastolic CHF, chronic chronic [facility] 2024 11:15am Essential hypertension inactive [facility] 2024 11:15am Atrial fibrillation with rap id ventricular response inactive July 13, 2024 8:27am COPD (chronic obstructive pulmonary disease) inactive July 13, 025 8:27am Essential hypertension inactive [facility] 2024 8:27am Hypoxia inactive July 13 8:27am Pneumonia inactive July 13 8:27am [facility] Work Phone: Evaluation noteNo assessment information available [facility] Work Phone: Evaluation note* Diagnosis Onset Date Resolution Status Atherosclerosis of coronary artery of [place] heart without angina pectoris chronic Atrial fibrillation chronic Diastolic CHF, chronic chron ic Essential hypertension chron ic [facility] Work Phone: Reason for referral (narrative)No reason for referral information availableKind[facility] Work Phone: Summary Purpose Family History No Family History Records Found Relationship Condition Age at Onset Recorded Date/T cb mother Cerebrovascular accident (CVA) Unknown father Dementia Unknown Advance Directives No Advanced Directives Records Found Advance Directive Response Recorded Date/ Time Advance Directives No February 04, 2019 9:28am Living Will No February 04 9:28am Power of Compensation Expert No February 04, 2019 9:28am Advance Directive Response Recorded Date/ Time Advance Directives No February 04, 2019 9:28am Living Will No September 05, 2021 1 1:44pm Power of Compensation Expert No September 05, 2021 11:44pm Advance Directive Response Recorded Date/ Time Advance Directives No February 04, 2019 8:28am Living Will No September 05, 2021 1 0:44pm Power of Compensation Expert No September 05, 2021 10:44pm Advance Directive Response Recorded Date/ Time Living Will No September 05, 2021 1 1:44pm Do you have a Healthcare Power of Compensation Expert? No September 05, 2021 11:44pm Living Will No July 13, 2024 6:48am Do you have a Healthcare Power of Compensation Expert? No July 13, 2024 6:48am Advance Directives No February 04, 2019 9:28am Advance Directive Response Recorded Date/ Time Living Will No September 05, 2021 1 1:44pm Do you have a Healthcare Power of Compensation Expert? No September 05, 2021 11:44pm Living Will No July 13, 2024 10:12am Do you have a Healthcare Power of Compensation Expert? No July 13, 2024 10:12am Advance Directives No February 04, 2019 9:28am Hospital Course Note HNO ID: [id number]: CANDICE Beachervice: [facility] MedicineAuthor Type: PhysicianType: Discharge SummariesFiled: 07/05/2017 10:31 AMNote Text:DISCHARGE SUMMARYPATIENT NAME: Cristina JeffreyMRN: [id number] Information Admission Information ADMIT DATE: 06/21/2017DISCHARGE DATE: 07/05/17[facility] DOCTORS AND MEDICAL TEAM:[facility] Doctor: Octavio Rosario Care Provider: Kayode Perez Chi Medical Team Members: Treatment Team:Attending Provider: DELORIS Rosarioonsulting: Sagar Orta CONDITION AT DISCHARGE: StableREASON I WAS IN THE HOSPITAL: GI bleedingSUMMARY OF WHAT HAPPENED WHILE I WAS IN THE HOSPITAL: Admitted withHemorrhagic shock with acute blood loss anemia due to GI bleeding, patientinitially was admitted at the ICU and intubated for airway protection, hadangio-embolization of gastroduodenal and gastroepiploic arteries, patientwas transferred to the floor, have been stable vitally with no bleeding,recommendation from GI to treat H. Pylori gastritis (more content not included)... Note HNO ID: [id number]: Anjana clinton (Res) HiebService: General SurgeryAuthor Type: ResidentType: Discharge SummariesFiled: 09/28/2017 11:05 AMNote Text:DISCHARGE SUMMARYPATIENT NAME: Cristina JeffreyMRN: [id number] Information Admission Information ADMIT DATE: 09/12/2017DISCHARGE DATE: 09/28/17MY DOCTORS AND MEDICAL TEAM:[facility] Main [facility] Doctor: Venus Washington Care Provider: Kayode Perez Chi Medical Team Members: Treatment Team:Attending Provider: Venus FosterConsulting: Sagar Cornell MirConsulting: Venus Singleton CONDITION AT DISCHARGE: GoodREASON I WAS IN THE HOSPITAL: gastric outlet obstruction. underwentgastrojejunostomy with truncal vagotomy,SUMMARY OF WHAT HAPPENED WHILE I WAS IN THE HOSPITAL:Patient was admitted for gastric outlet obstruction. underwentgastrojejunostomy with truncal vagotomy. Following the procedure thepatient was started on Eliquis due to his a fib score. The patientrecovered well on the surgical floor and was able to be discharged in astable condition.OTHER PROBLE (more content not included)... Note HNO ID: [id number]: Philippe Newton: Interventional RadiologyAuthor Type: PhysicianType: Brief Op NoteFiled: 06/23/2017 6:51 PMNote Text:BRIEF OPERATIVE / PROCEDURE NOTELOG ID: [id number]/Procedure Date: 06/23/2017Incision/Procedure Start Time:Incision Close/Procedure End Time:Surgeon(s)/Proceduralist(s) and Animal Care Provider(s):Surgeon(s) and Role: * Dre Marquez Additional StaffProcedure(s): mesenteric arteriogram and embolizationAnesthesia: Procedural SedationFindings:Mesenteric arteriogram completed. Celiac axis and SMA evaluated. 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 Note was made of activeextravasation from branch vessels arising from the gastroduodenal andgastroepiploic arteries. Target vessels successfully embolized utilizing acombination of 3mm coils, Gel-foam slurry and 900 micron Embozeneembolization spheres.The patient tolerated the procedure well. No immediate complications werenoted.Estimated Blood Loss: 25 mlsSpecimens: NoneComplicatio (more content not included)... Note HNO ID: [id number]: Davey Valenciaervice: GastroenterologyAuthor Type: PhysicianType: Brief Op NoteFiled: 09/15/2017 11:35 AMNote Text:BRIEF OPERATIVE / PROCEDURE NOTELOG ID: [id number]/PROCEDURE DATE: 09/15/2017SURGEON(S)/PROCEDURALIST(S) AND CONFIGURATION MANAGEMENT CONSULTANT(S): Sagar Dominguez - PrimaryendoscopistINDICATION: Gastric outlet obstructionPRE-OP/PRE-PROCEDURE DIAGNOSIS: SamePOST-OP/POST-PROCEDURE DIAGNOSIS: Large antral ulcer and a large DU withduodenal stricturePROCEDURE(S): upper endoscopy with balloon dilation of GO and antral BxsANESTHESIA: MACFINDINGS: 1. Dilated stomach with large amount of residual food 2. 2 cm x1cm ulcer in distal Antrum 3. A 4 cm cavernous appearaing deep ulcer induodenal bulb 4. High grade post- bulbar stricture - balloon dilated to 12mmESTIMATED BLOOD LOSS: NoneSPECIMENS: antral BxsCOMPLICATIONS: NonePOST- PROCEDURE RECOMMENDATIONS/FOLLOW UP: Surgical interventionDict n#[id number]: Sagar Dominguez MD PATIENT NAME: Cristina JeffreyDATE: 09/15/2017 (more content not included)... Note HNO ID: [id number]: Lexi oconnell AliService: General SurgeryAuthor Type: PhysicianType: Brief Op NoteFiled: 09/21/2017 6:17 PMNote Text:BRIEF OPERATIVE / PROCEDURE NOTELOG ID: [id number]/PROCEDURE DATE: 09/21/2017INCISION/PROCEDURE START TIME: 3:37 PMINCISION CLOSE/PROCEDURE END TIME:SURGEON(S)/PROCEDURALIST(S) AND CONFIGURATION MANAGEMENT CONSULTANT(S):Surgeon(s) and Role: * Venus Foster - Primary * Moises Palencia (Fel) Additional StaffSURGERY/PROCEDURE(S): 1. Laparoscopic gastrojejunostomy with truncalvagotomyANESTHESIA: GeneralFINDINGS: scarred ulcer bed on gallbladder and monique hepatisESTIMATED BLOOD LOSS: 0 mlSPECIMENS: NoneCOMPLICATIONS: NonePRE-OP/PRE-PROCEDURE DIAGNOSIS: gastric outlet obstructionPOST-OP/POST-PROCEDURE DIAGNOSIS: Gastric outlet obstruction [K31.1]SIGNATURE: Venus Foster MD PATIENT NAME: Cristina JeffreyDATE: September 21, 2017 : 6:15 PM PAGER/CONTACT #: Procedure Findings Note HNO ID: [id number]: Philippe Newton: Interventional RadiologyAuthor Type: PhysicianType: Brief Op NoteFiled: 06/23/2017 6:51 PMNote Text:BRIEF OPERATIVE / PROCEDURE NOTELOG ID: [id number]/Procedure Date: 06/23/2017Incision/Procedure Start Time:Incision Close/Procedure End Time:Surgeon(s)/Proceduralist(s) and Animal Care Provider(s):Surgeon(s) and Role: * Dre Marquez Additional StaffProcedure(s): mesenteric arteriogram and embolizationAnesthesia: Procedural SedationFindings:Mesenteric arteriogram completed. Celiac axis and SMA evaluated. 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 Note was made of activeextravasation from branch vessels arising from the gastroduodenal andgastroepiploic arteries. Target vessels successfully embolized utilizing acombination of 3mm coils, Gel-foam slurry and 900 micron Embozeneembolization spheres.The patient tolerated the procedure well. No immediate complications werenoted.Estimated Blood Loss: 25 mlsSpecimens: NoneComplicatio (more content not included)... Note HNO ID: [id number]: Davey Cornell MirService: GastroenterologyAuthor Type: PhysicianType: Brief Op NoteFiled: 09/15/2017 11:35 AMNote Text:BRIEF OPERATIVE / PROCEDURE NOTELOG ID: [id number]/PROCEDURE DATE: 09/15/2017SURGEON(S)/PROCEDURALIST(S) AND CONFIGURATION MANAGEMENT CONSULTANT(S): Sagar Dominguez - PrimaryendoscopistINDICATION: Gastric outlet obstructionPRE-OP/PRE-PROCEDURE DIAGNOSIS: SamePOST-OP/POST-PROCEDURE DIAGNOSIS: Large antral ulcer and a large DU withduodenal stricturePROCEDURE(S): upper endoscopy with balloon dilation of GO and antral BxsANESTHESIA: MACFINDINGS: 1. Dilated stomach with large amount of residual food 2. 2 cm x1cm ulcer in distal Antrum 3. A 4 cm cavernous appearaing deep ulcer induodenal bulb 4. High grade post- bulbar stricture - balloon dilated to 12mmESTIMATED BLOOD LOSS: NoneSPECIMENS: antral BxsCOMPLICATIONS: NonePOST- PROCEDURE RECOMMENDATIONS/FOLLOW UP: Surgical interventionDict n#[id number]: Sagar Dominguez MD PATIENT NAME: Cristina JeffreyDATE: 09/15/2017 (more content not included)... Note HNO ID: [id number]: Lexi oconnell AliService: General SurgeryAuthor Type: PhysicianType: Brief Op NoteFiled: 09/21/2017 6:17 PMNote Text:BRIEF OPERATIVE / PROCEDURE NOTELOG ID: [id number]/PROCEDURE DATE: 09/21/2017INCISION/PROCEDURE START TIME: 3:37 PMINCISION CLOSE/PROCEDURE END TIME:SURGEON(S)/PROCEDURALIST(S) AND CONFIGURATION MANAGEMENT CONSULTANT(S):Surgeon(s) and Role: * Venus Foster - Judy * Moises Kimble (Fel) StaffSURGERY/PROCEDURE(S): 1. Laparoscopic gastrojejunostomy with truncalvagotomyANESTHESIA: GeneralFINDINGS: scarred ulcer bed on gallbladder and monique hepatisESTIMATED BLOOD LOSS: 0 mlSPECIMENS: NoneCOMPLICATIONS: NonePRE-OP/PRE-PROCEDURE DIAGNOSIS: gastric outlet obstructionPOST-OP/POST-PROCEDURE DIAGNOSIS: Gastric outlet obstruction [K31.1]SIGNATURE: Venus Foster MD PATIENT NAME: Cristina JeffreyDATE: September 21, 2017 : 6:15 PM PAGER/CONTACT #: Chief Complaint and Reason for Visit Chief Complaint head injury Chief Complaint 1 Y FU Reason for Visit Atherosclerosis of c oronary artery of [place] heart without angina pectoris Atrial fibrillation Diastolic CHF, chronic Essential hypertension Chief Complaint Admit Date 1 Y FU July 02, 2024 11: 15am COMMUNITY-ACQUIRED PNEUMONIA, A-FIB WITH RVR July 13, 2024 8:27am Reason for Visit Admit Date Atherosclerosis of coronary artery of [place] heart without angina pectoris July 02, 2024 11:15am Atrial fibrillation July 02, 2024 11: 15am Diastolic CHF, chronic July 02, 2024 11:15am Essential hypertension July 02, 2024 11:15am Hypoxia July 13, 2024 8:2 7am Pneumonia July 13, 2024 8:2 7am Atrial fibrillation with rapid ventricul ar response July 13, 2024 8:27am COPD (chronic obstructive pulmonary dise ase) July 13, 2024 8:27am Essential hypertension July 13, 2024 8:27am Chief Complaint Admit Date 1 Y FU July 02, 2024 11: 15am COMMUNITY-ACQUIRED PNEUMONIA, A-FIB WITH RVR July 13, 2024 8:27am COMMUNITY-ACQUIRED PNEUMONIA, A-FIB WITH RVR July 13, 2024 10:19am COMMUNITY-ACQUIRED PNEUMONIA, A-FIB WITH RVR July 14, 2024 11:31am COMMUNITY-ACQUIRED PNEUMONIA, A-FIB WITH RVR July 15, 2024 11:21am Reason for Visit Admit Date Atherosclerosis of coronary artery of [place] heart without angina pectoris July 02, 2024 11:15am Atrial fibrillation July 02, 2024 11: 15am Diastolic CHF, chronic July 02, 2024 11:15am Essential hypertension July 02, 2024 11:15am Atrial fibrillation with rapid ventricul ar response July 13, 2024 8:27am COPD (chronic obstructive pulmonary dise ase) July 13, 2024 8:27am Essential hypertension July 13, 2024 8:27am Hypoxia July 13, 2024 8:2 7am Pneumonia July 13, 2024 8:2 7am Additional Source Comments (unrecognized sect ion and content) No Status Records FoundNo Status Records FoundNo Status Records Found INFORMATION SOURCE (unrecogn ized section and content) DATE CREATED AUTHOR 10/10/2017 [facility] DATE CREATED AUTHOR AUTHOR'S ORGANIZ ATION 03/01/2018 [facility] DATE CREATED AUTHOR AUTHOR'S ORGANIZ ATION 09/18/2024 [facility] Goals (unrecognized section and content) Goals may be documented in a n alternate sectionGoals may be documented in an alternate sectionGoals may be documented in an alternate sectionGoals may be documented in an alternate sectionGoals may be documented in an alternate sectionGoals may be documented in an alternate sectionGoals may be documented in an alternate section Care Teams (unrecognized sec tion and content) Team Status: Active Member Role Status Dates Dr. Clifton Del Valle MD Family Provider Active Dr. Clifton Del Valle MD Primary Care Provider Active Team Status: Inactive Member Role Status Dates Dr. Clifton Del Valle MD Primary Care Provider, Referring Provider Active Tasha ROBLEDO, PA Attending Provider Active Team Status: Inactive Member Role Status Dates Dr. Clifton Del Valle MD Primary Care Provider, Attending Provider Active Team Status: Active Member Role Status Dates Dr. Cilfton Del Valle MD Primary Care Provider Active Team Status: Inactive Member Role Status Dates Dr. Clifton Del Valle MD Primary Care Provider Active Start: July 02, 2024 End: July 02, 2024 Dr. Clifton Del Valle MD Referring Provider Active Start: July 02, 2024 End: July 02, 2024 Tasha ROBLEDO, PA Attending Provider Active Start: July 02, 2024 End: July 02, 2024 Team Status: Active Member Role Status Dates Dr. Clifton Del Valle MD Primary Care Provider Active Start: July 13, 2024 Otf Jefferson MD Emergency Provider Active Star t: July 13, 2024 Dr. Bertin Wolff DO Admit Provider Active S tart: July 13, 2024 Dr. Bertin Wolff DO Attending Provider Active Start: July 13, 2024 Team Status: Inactive Member Role Status Dates Dr. Clifton Del Valle MD Primary Care Provider Active Start: July 13, 2024 End: July 15, 2024 Otf Jefferson MD Emergency Provider Active Star t: July 13, 2024 End: July 15, 2024 Dr. Bertin Wolff , Admit Provider Active S tart: July 13, 2024 End: July 15, 2024 Dr. Bertin Wolff , Attending Provider Active Start: July 13, 2024 End: July 15, 2024 Team Status: Active Member Role Status Dates Dr. Clifton Del Valle MD Primary Care Provider Active Start: July 13, 2024 Otf Jefferson MD Emergency Provider Active Star t: July 13, 2024 Dr. Bertin Wolff , Admit Provider Active S tart: July 13, 2024 Dr. Bertin Wolff , Attending Provider Active Start: July 13, 2024 Dr. Bertin Wolff , Other Provider Active S tart: July 13, 2024 Team Status: Active Member Role Status Dates Dr. Clifton Del Valle MD Primary Care Provider Active Start: July 13, 2024 Dr. Pete Garner MD Attending Provider Active S tart: July 13, 2024 Team Status: Active Member Role Status Dates Dr. Clifton Del Valle MD Primary Care Provider Active Start: July 14, 2024 Otf Jefferson MD Emergency Provider Active Star t: July 14, 2024 Dr. Bertin Wolff , Admit Provider Active S tart: July 14, 2024 Dr. Bertin Wolff DO Attending Provider Active Start: July 14, 2024 Dr. Bertin Wolff , Other Provider Active S tart: July 14, 2024 Team Status: Active Member Role Status Dates Dr. Clifton Del Valle MD Primary Care Provider Active Start: July 15, 2024 Otf Jefferson MD Emergency Provider Active Star t: July 15, 2024 Dr. Bertin Wolff , Admit Provider Active S tart: July 15, 2024 Dr. Bertin Wolff , Attending Provider Active Start: July 15, 2024 Dr. Bertin Wolff , Other Provider Active S tart: July 15, 2024 Team Status: Inactive Member Role Status Dates Dr. Clifton Del Valle MD Primary Care Provider Active Start: September 05, 2024 End: September 05, 2024 Dr. Clifton Del Valle MD Attending Provider Active Start: September 05, 2024 End: September 05, 2024 Dr. Clifton Del Valle MD Referring Provider Active Start: September 05, 2024 End: September 05, 2024 FOR RECORDS PERTAINING TO PATIENTS WHO ARE OR HAVE BEEN ENROLLED IN A CHEMICAL DEPENDENCY/SUBSTANCEABUSE PROGRAM, SOME INFORMATION MAY BE OMITTED. This clinical summary was aggregated from multiple sources. Caution should be exercised in using it in the provision of clinical care. This summary normalizes information from multiple sources, and as a consequence, information in this document may materially change the coding, format and clinical context of patient data. In addition, data may be omitted in some cases. CLINICAL DECISIONS SHOULD BE BASED ON THE PRIMARY CLINICAL RECORDS. [employer] provides no warranty or guarantee of the accuracy or completeness of information in this document.
--- NOTE | 2024-11-10 07:04 | RAD_ITS ---
PROCEDURE: CHEST PA AND LATERAL 11/10/2024 REASON FOR EXAM: CHEST PAIN RIGHT TECHNIQUE: CHEST PA AND LATERAL COMPARISON: Chest x-ray studies dated 07/14/2024 and 07/13/2024 FINDINGS: Hardware: Cardiac leads overlie the chest. Heart: The heart is upper limits of normal in size however similar in size and configuration when compared to the prior study. Mediastinum: Arteriosclerotic vascular disease of the aorta is noted. Trachea is midline. Pulmonary vasculature is unremarkable. Lungs: Prominent interstitial markings are seen in the right middle and lower lobe and may represent a pneumonia in the right clinical setting. These findings are similar when compared to the prior exams and may represent pneumonitis. Some underlying parenchymal scarring would be another consideration. There is a small right pleural effusion which is new. Left lung is expanded without evidence of atelectasis, consolidation, effusion or pneumonic infiltrate. Bones: Diffuse osteopenia of the bony thorax is seen. No acute osseous abnormality is noted. RAD/Chest PA and Lateral IMPRESSION: The prominent interstitial markings in the right middle and lower lobes may rep resent pneumonia in the right clinical setting. These findings are similar when compared to the prior chest x-ray studies indic ating that there may be some underlying pneumonitis or parenchymal scarring. New small right pleural effusion Reading Location: [id number]
[2024-11-10 07:13] LABS: Anion Gap 11 (5-15); BUN 11 mg/dL (4-19); BUN/Creat Ratio 13.2 RATIO (10-20); Calcium,Total 8.5 mg/dL (7.6-11.0); Carbon Dioxide 21.0 mmol/L (21.0-32.0); Chloride 105 mmol/L (98-108); Estimated Creatinine Clearance 81.07 ml/min (50-250); Glucose 132 mg/dL (70-99); Potassium 4.0 mmol/L (3.3-5.1); Troponin T High Sensitivity 18 ng/L (<=22)
[2024-11-10 07:31] LABS: Mucous, Urine 0 SEEN /hpf (<or=2+); Squamous Epithelial Cells - UA 0 SEEN /hpf (0-5)
[2024-11-10 07:45] LABS: Color, Urine Amber (Yellow); Glucose, Dipstick Normal (Normal); Ketone-Dipstick 5 mg/dl (Negative); Leukocyte Esterase-Dipstick 25 /ul (Negative); Nitrite-Dipstick Negative (Negative); Occult Blood-Urine 50 /ul (Negative); Protein-Dipstick 30 mg/dl (Negative); Specific Gravity, Urine 1.010 (1.002-1.030); Urine Bilirubin Dipstick Negative (Negative)
[2024-11-10] MEDS: Piperacil/Tazobactam 4.5 GM in 0.9% Normal Saline (100mL MB+) 100 ML IV (07:59)
[2024-11-10 08:07] LABS: Red Blood Cells-Urine 0-5 SEEN /hpf (0-5)
--- NOTE | 2024-11-10 08:13 | PCM.HP.STD ---
HPI - General General Date of Admission: 11/10/24 Date of Service: 11/10/24 Chief Complaint: R sided pleuritic chest pain, fatigue, malaise. HPI Narrative The patient is a 79 y/o M w/ PMHx: Obesity, PAF, HFpEF, HTN, HLD, COPD, Former tobacco use, GERD w/ Hx GI bleed/Gastric ulcer, Hx PSVT, Nonobstructive CAD, CKD stage II per GFR trending who presents to the [facility] ED on 11/10/2024 with onset of pleuritic chest discomfort specifically on the right side starting upon awakening on day of presentation although he does report that he is not felt well for the last several days but has had no increased cough or productive sputum but does state when he tries to take a deep breath it does elicit a cough with no recent fevers or chills but significant fatigue and malaise with 1 loose stool on day of presentation but no associated abdominal discomfort, cramping, nausea or emesis but given ongoing prompted eventual ED evaluation to be cautious. He denies any recent ill contacts. Workup in the ED included T98.4, heart rate 97, BP 110/70, respiratory rate 25, 94% on room air with most recent repeat check T98.4, heart 97, BP 110/70, respiratory rate 25, 93% room air, CBC with WC 8.3, hemoglobin 14.4, platelet 241 with lymphopenia, BMP with BUN/creatinine 11/0.5, GFR 88, glucose 132, troponin 18, urinalysis with 30 protein, ketones 5, occult blood 50, negative nitrite, leukocyte esterase 25 with no urine RBCs, WBCs or bacteria noted, chest x-ray with prominent interstitial markings in the right middle and lower lobes possibly pneumonia in the right clinical setting however these are similar compared to previous chest x-rays certainly could be parenchymal scarring, new small right pleural effusion, EKG with atrial fibrillation rate controlled unchanged from previous with no acute evidence of ischemia. In the ED patient ministered Zosyn 4.5 g IV x 1 as well as azithromycin 5 mg IV x 1. In the ED patient was ambulating on room air and was noted to drop to 83% on room air with improvement with rest placed on nasal cannula. [facility] Medical History Hypoxia Pneumonia Diastolic CHF, chronic Atrial fibrillation Prostate cancer Chronic gastric ulcer Atherosclerosis of coronary artery of inupiat heart without angina pectoris Essential hypertension PAF (paroxysmal atrial fibrillation) Atrial fibrillation with rapid ventricular response Pancreatitis Abnormal EKG Hypokalemia Metabolic alkalosis Hyperlipidemia Acute respiratory insufficiency Acute exacerbation of chronic obstructive pulmonary disease (COPD) COPD (chronic obstructive pulmonary disease) Paroxysmal SVT (supraventricular tachycardia) GERD (gastroesophageal reflux disease) CHF (congestive heart failure) Home Medications Medication Instructions Recorded Last Taken Type albuterol sulfate 2.5 mg/3 mL 2.5 mg inhalation Q4H PRN PRN 01/25/19 01/25/19 01:00 History (0.083 %) solution for nebulization Shortness Of Breath pantoprazole 40 mg tablet,delayed 40 mg PO BID stomach 01/25/19 11/10/24 History release potassium chloride 20 mEq 40 meq PO DAILY supplement 01/25/19 01/24/19 06:00 History tablet,extended release(part/cryst) pravastatin 40 mg tablet 40 mg PO QHS cholesterol 01/25/19 01/24/19 18:00 History cholecalciferol (vitamin D3) 25 3,000 unit PO DAILY supplement 05/14/19 Unknown History mcg (1,000 unit) capsule furosemide 40 mg tablet 40 mg PO DAILY water pill 05/10/22 Unknown History sacubitril 97 mg-valsartan 103 mg 1 tab PO BID heart 05/10/22 11/10/24 History tablet (Entresto) apixaban 5 mg tablet 5 mg PO BID afib 07/13/24 11/10/24 History diltiazem HCl 120 mg 120 mg PO DAILY #30 caps 07/15/24 Unknown Rx capsule,extended release 24 hr (Cardizem CD) metoprolol succinate 50 mg 150 mg (3 x 50 mg) PO BID #180 tabs 07/15/24 11/10/24 Rx tablet,extended release 24 hr fluticasone fur. 100 mcg-umeclid 1 ea inhalation DAILY 11/10/24 Unknown History 62.5 mcg-vilant 25 mcg inhalat.powder (Trelegy Ellipta) Allergy/AdvReac Type Severity Reaction Status Date / Time No Known Allergies Allergy Verified 07/13/24 06:44 Family History Mother CVA (cerebral vascular accident) Father Dementia Surgical History History of laparoscopic cholecystectomy (01/29/19) History of gastric surgery History of breast lump/mass excision Social History household members: none Smoking Status: Former smoker how long ago did patient quit smokin years ago alcohol intake: former year quit: 2017 substance use type: does not use caffeine: Yes ROS ROS Narrative Admission Review of Systems: CONSTITUTIONAL: No weight loss, fever, chills, + weakness or fatigue. HEENT: Eyes: No visual loss, blurred vision, double vision or yellow sclerae. Ears, Nose, Throat: No hearing loss, sneezing, congestion, runny nose or sore throat. SKIN: No rash or itching, lesions, wounds except + very stage ecchymoses, abrasion, bilateral lower extremity venous stasis skin changes. CARDIOVASCULAR: + Right-sided pleuritic chest pain, more pronounced with deep inspiratory effort, chronic unchanged mild distal edema. No palpitations, orthopnea, syncopal events. RESPIRATORY: + Mild dyspnea but no marked productive sputum, does have cough elicited with deep inspiratory effort with right-sided pleuritic chest pain. No reported wheezing, hemoptysis. GASTROINTESTINAL: + Decreased appetite. No nausea, vomiting or diarrhea, abdominal pain, melena, BRBPR. GENITOURINARY: No dysuria, frequency, urgency or retention. NEUROLOGICAL: No headache, dizziness, syncope, paralysis, ataxia, numbness or tingling in the extremities, focal weakness, change in bowel or bladder control, seizure. MUSCULOSKELETAL: No muscle, back pain, joint pain or stiffness. HEMATOLOGIC: No anemia. + History of easy bleeding/bruising. LYMPHATICS: No enlarged nodes. No history of splenectomy. PSYCHIATRIC: No history of depression or anxiety. ENDOCRINOLOGIC: No reports of sweating, cold or heat intolerance. No polyuria or polydipsia. ALLERGIES: No history of asthma, hives, eczema or rhinitis. Vital Signs Vital Signs Vital Signs: 11/10/24 06:21 11/10/24 06:21 11/10/24 06:25 Temperature 98.4 F 98.4 F Temperature Source Oral Oral Pulse Rate 97 97 Respiratory Rate 25 H 25 H Respiratory Effort Short of Breath Respiratory Pattern Tachypnea Blood Pressure 110/70 110/70 Blood Pressure Mean 83 83 Pulse Ox 94 94 Oxygen Delivery Method Room Air Room Air 11/10/24 07:48 Temperature Temperature Source Pulse Rate Respiratory Rate Respiratory Effort Respiratory Pattern Blood Pressure Blood Pressure Mean Pulse Ox 93 Oxygen Delivery Method Room Air Weight Weight: 214 lb 8.156 oz Body Mass Index (BMI) 31.6 Physical Exam Narrative Physical Examination: General: Awake, alert, oriented x 3 and cooperative, seated upright in the ED bed, fatigued and ill-appearing. Skin: Normal color, normal turgor, no icterus, no cyanosis except occasional stage ecchymoses, abrasion, bilateral lower extremity venous stasis skin changes. HEENT: AT/NC, EOMI, PERRLA, MMM, no carotid bruits or JVD noted; however thickened neck makes evaluation difficult. Lungs: Diminished, greater bases, right greater than left, mildly increased respiratory rate but no distress, occasional end expiratory wheeze, no marked appreciated rales or rhonchi. Moderate effort, mild decrease BL bases, no rales, ronchi or wheezing. Heart: Irregular, rate controlled; no gallop, rub audible. Abdomen: Soft, obese, NTTP, distant BS, no obvious distention, no obvious HSM however habitus makes evaluation difficult. Extremities: No cyanosis, no clubbing, bilateral lower extremity distal edema, noted to be chronic per patient, see skin. Neurological: Patient awake, alert, oriented as noted, cognitive function intact; pupils equally reactive to light and accommodation, cranial nerves grossly normal, moving all 4 extremities, no focal deficits, strength moderately to severely globally decreased. Psychiatric: Affect appears flat, fatigued, ill-appearing, no acute evidence of depressive or anxiety feelings. Results Lab / Micro Data 11/10/24 06:49 11/10/24 06:49 Labs: Laboratory Results - last 24 hr 11/10/24 06:49: WBC 8.3, RBC 4.47 L, Hgb 14.4, Hct 40.9, MCV 91.5, MCH 32.2 H, MCHC 35.2, RDW Std Deviation 47.8 H, RDW Coeff of Yaneli 14.3, Plt Count 241, MPV 9.1, Immature Gran % (Auto) 0.700, Neut % (Auto) 79.5 H, Lymph % (Auto) 7.8 L, [place] % (Auto) 11.2 H, Eos % (Auto) 0.6, Baso % (Auto) 0.2, Absolute Neuts (auto) 6.6, Absolute Lymphs (auto) 0.65 L, Nucleated RBC % 0, Sodium 137, Potassium 4.0, Chloride 105, Carbon Dioxide 21.0, Anion Gap 11, BUN 11, Creatinine 0.85, Estim Creat Clear Calc 81.07, Est GFR (MDRD) Non-Af 88, BUN/Creatinine Ratio 13.2, Glucose 132 H, Calcium 8.5, Troponin T High Sens 18 11/10/24 07:24: Urine Color Alcira, Urine Clarity Clear, Urine pH 6.0, Ur Specific [place] 1.010, Urine Protein 30 H, Urine Glucose (UA) Normal, Urine Ketones 5 H, Urine Occult Blood 50 H, Urine Nitrite Negative, Urine Bilirubin Negative, Urine Urobilinogen 8 H, Ur Leukocyte Esterase 25 H, Urine RBC 0-5 SEEN, Urine WBC 0-5 SEEN, Ur Squamous Epith Cells 0 SEEN, Urine Bacteria 0 SEEN, Urine Mucus 0 SEEN Rhythm Strip Rhythm Strip: A-fib Rate: 95 Ectopy: None Imaging Radiology Impression Chest X-Ray 11/10/24 07:04 IMPRESSION: The prominent interstitial markings in the right middle and lower lobes may represent pneumonia in the right clinical setting. These findings are similar when compared to the prior chest x-ray studies indicating that there may be some underlying pneumonitis or parenchymal scarring. New small right pleural effusion Reading Location: [id number] Assessment & Plan Assessment/Plan (1) Hypoxemia: (2) Pneumonia: PLAN: Plan The patient is a 79 y/o M w/ PMHx: Obesity, PAF, HFpEF, HTN, HLD, COPD, Former tobacco use, GERD w/ Hx GI bleed/Gastric ulcer, Hx PSVT, Nonobstructive CAD, CKD stage II per GFR trending who presents to the [facility] ED on 11/10/2024 with onset of pleuritic chest discomfort specifically on the right side starting upon awakening on day of presentation although he does report that he is not felt well for the last several days but has had no increased cough or productive sputum but does state when he tries to take a deep breath it does elicit a cough with no recent fevers or chills but significant fatigue and malaise with 1 loose stool on day of presentation but no associated abdominal discomfort, cramping, nausea or emesis but given ongoing prompted eventual ED evaluation to be cautious. #1. Acute Hypoxia secondary to Acute Right-sided interstitial pneumonia: Will admit to [facility], maintain on oxygen with wean as tolerated to room air, continue ATC ipratropium, PRN albuterol, maintain on IV Rocephin and Azithromycin, HOB, IS parameters w/ pending sputum cultures and urine antigens. PT/OT/CM consulted for discharge planning. Maintain on fall precautions. #2. Chronic COPD: Will continue oxygen supplementation as needed #1 with wean as able to room air, will maintain on ATC ipratropium to avoid significant tachycardia given PAF history, PRN albuterol, encourage HOB, IS parameters. #3. HFpEF: 07/13/2024 echocardiogram with normal LV size, LV systolic function normal, LVEF 55%, mildly enlarged LA. Will continue patient on Eliquis, metoprolol, Entresto, Lasix home regimen, judiciously hydrate only as necessary, monitor for overload. #4. Chronic Kidney Disease Stage II per GFR trending: Admission BUN/Cr 11/0.85, GFR 88, baseline renal function 0.8-1.1, repeat BMP in AM. #5. PAF: Rate controlled, no acute findings on ED presentation EKG, will continue home cardizem, metoprolol and eliquis regimen. #6. Hypertension: Continue home regimen including Cardizem, Lasix, metoprolol, Entresto, PRN hydralazine. #7. Hyperlipidemia: The patient on statin therapy. #8. Nonobstructive CAD: Will continue patient on Eliquis, metoprolol, Entresto, statin home regimen. #9. Former tobacco use: Encourage continued tobacco cessation. #10. GERD with history of previous GI bleed/gastric ulcer: Will continue patient on PPI. #11. Obesity: Weight loss and lifestyle changes encouraged. #12. DVT Prophylaxis: Continue home eliquis regimen. #13. CODE status: Patient HCPOA and living will are not in place but he notes he would want his Sister Francesca to be his medical decision-maker if necessary. Discussed CODE status at length including difference between FULL code, DNR-CCA and DNR-CC status. Following discussions about the differences in these status, requested Full Code status. Advanced Care Planning Face to Face Time: 16 minutes. Charges/Coding Visit Charges Inpatient E&M: 57321 Init Hosp L3 Procedures Hospitalists Procedures: 27524 Advncd Care Plan 30 Min
[2024-11-10 08:42] LABS: Magnesium 1.9 mg/dL (1.5-2.2)
--- OUTSIDE RECORDS SUMMARY | 2024-11-10 08:55 | XMS RPT_ITS | CCD ---
Author Organization [facility] Providers Care Bessemer Regulator Name Role Phone ALI, NOAMAN S Unavailable [...] Unavailable SCHWEIKERT, MOISES A Unavailable Unavailable VITEBSKIY, NEEMA Unavailable Unavailable INDIA, AQUILES Unavailable Unavailab le [...] Del Valle MD, Chi Primary Care Provider Dr. Clifton Del Valle MD, Chi Referring Provider [phone] Tasha Gates Attending Provider Otf Jefferson MD Emergency Provider New BEE, [...] Primary Care Unavailable Bertin Wolff Consulting Unavailable Bertni Wolff Attending Unavailable Eligio, Clifton Chi Primary Care Unavailable Eligio, Clifton Chi Referring Unavailable Tasha Gates Attending Unavail able Eligio, Clifton Chi Attending Unavailable Eligio, Clifton Chi Referring Unavailable Eligio, Clifton Chi Primary Care Unavailable Allergies Allergy Classification Reported Allergen(s) Allergy Type Date of Onset Reaction(s) Facility (2 sources) aspirin; Translations: [ASPIRIN] Drug Allergy 8 AOF [facility] Repository (2 sources) NO KNOWN ALLERGIES; Translations: [NO KNOWN ALLERGIES] Propensity to adverse reactions (disorder) [facility] Repository Medications Current Medications Medication Drug Class(es) [...] A DAY May 10, 2022 1:00am Vitamins A,C,A-Fdfa-Pjkdpb (6 sources) Start: 01-25-2019 Vitamins A,C,E -Zinc-Copper Active 1 EACH PO TWICE A DAY January 25, 2019 1:06am Start: 01-25-2019 Vitamins A,C,E -Zinc-Copper Active 1 EACH PO TWICE A DAY January 24, 2019 11:00pm Start: 01-25-2019 Vitamins A,C,E -Zinc-Copper Active 1 EACH PO TWICE A DAY January 25, 2019 12:00am Vitamins A,C,H-Enoj-Omlebm 1 EACH capsule (3 sources) Start: 01-25-2019 take 1 capsule by mouth twice daily Vitamins A,C,H-Dhpt-Sprkqd 1 EACH capsule Active 1 NMA PO [...] Coronary atherosclerosis; Translations: [Atherosclerotic heart disease of [place] coronary artery without angina pectoris] 02-13-2019 Chronic [...] Auto (Unsp spec) [#/Vol] 2.00 10*3/uL 0.83-4.51 [facility] Absolute neutrophil countOrd ered By: Clifton Del Valle on 09-05-2024 Neutrophils (Bld) [#/Vol] 4.8 10*3/uL 2.0-7.7 [facility] Anion gap in Serum or Plasma Ordered By: Clifton Del Valle on 09-05-2024 Anion gap [Moles/Vol] 12 mmol/L 09-05 [facility] Automated lymphocyte count a s percentage of total leukocytesOrdered By: [facility] Eligio on 09-05-2024 Lymphocytes/100 WBC Auto (Unsp spec) 26.0 % - [facility] BUN/creatinine ratioOrdered By: [facility] on 09-05-2024 Urea nitrogen/Creatinine [Mass ratio] 16.4 mg/mg 10-20 [facility] Basophil percentageOrdered B y: [facility] on 09-05-2024 Basophils/100 WBC (Bld) 0.5 % 0-1 [facility] Bilirubin, totalOrdered By: [facility] on 09-05-2024 Bilirubin [Mass/Vol] 0.45 mg/dL 0.00-1.30 [facility] CBC W/Diff, Automatedon 08-22 Absolute Lymph 2.00 X10 3/uL Normal 0.83-4.51 [facility] Comment on above: Performed By: #### M 737.210 #### [facility] Laboratory [address] [place], [place] [address], [address] Absolute Neut 4.8 X10 3/uL Normal 2.0-7.7 [facility] Comment on above: Performed By: #### M [id number] #### [facility] Laboratory [address] [place], [address] Basophils/100 WBC (Bld) 0.5 % Normal 0-1 [facility] Comment on above: Performed By: #### M [id number] #### [facility] Laboratory [address] [place], [address] Eosinophils/100 WBC (Bld) 1.0 % Normal 0-5 [facility] Comment on above: Performed By: #### M [id number] #### [facility] Laboratory [address] [place], [address] Erythrocyte distribution width (RBC) [Ratio] 14.4 % Normal 11.6-14.6 [facility] Comment on above: Performed By: #### M [id number] #### [facility] Laboratory [address] [place], [address] Hematocrit (Bld) [Volume fraction] 49.2 % Normal 40-54 [facility] Comment on above: Performed By: #### M [id number] #### [facility] Laboratory [address] [place], [address] Hemoglobin (Bld) [Mass/Vol] 16.5 g/dL Normal 13.0-16.5 [facility] Comment on above: Performed By: #### M [id number] #### [facility] Laboratory [address] [place], [address] IG% 0.400 Normal 0.0-0.9 [facility] Comment on above: Result Comment: IG% - Immature Granulocytes (promyelocytes, myelocytes and metamyelocytes) > 1% indicates that a LEFT SHIFT is Present. Performed By: #### M [id number] #### [facility] Laboratory [address] [place], [address] Lymphocytes/100 WBC (Bld) 26.0 % Normal 19-41 [facility] Comment on above: Performed By: #### M [id number] #### [facility] Laboratory [address] [place], [address] MCH (RBC) [Entitic mass] 32.3 pg High 27.0-32.0 [facility] Comment on above: Performed By: #### M [id number] #### [facility] Laboratory [address] [place], [address] MCHC (RBC) [Mass/Vol] 33.5 g/dL Normal 32-36 [facility] Comment on above: Performed By: #### M [id number] #### [facility] Laboratory [address] [place], [address] MCV (RBC) [Entitic vol] 96.3 fL High 80-94 [facility] Comment on above: Performed By: #### M [id number] #### [facility] Laboratory [address] [place], [address] Monocytes/100 WBC (Bld) 10.0 % Normal 0-10 [facility] Comment on above: Performed By: #### M [id number] #### [facility] Laboratory [address] [place], [address] Neutrophils/100 WBC (Bld) 62.1 % Normal 47-70 [facility] Comment on above: Performed By: #### M [id number] #### [facility] Laboratory [address] [place], [address] Nucleated RBC (Bld) [#/Vol] 0 10*3/uL Normal 0-5 [facility] Comment on above: Performed By: #### M [id number] #### [facility] Laboratory [address] [place], [address] Platelet mean volume (Bld) [Entitic vol] 9.3 fL Normal 6.2-12.0 [facility] Comment on above: Performed By: #### M [id number] #### [facility] Laboratory [address] [place], [address] Platelets (Bld) [#/Vol] 309 10*3/uL Normal 150-450 [facility] Comment on above: Performed By: #### M [id number] #### [facility] Laboratory [address] [place], [address] RBC (Bld) [#/Vol] 5.11 10*6/uL Normal 4.6-6.2 [facility] Comment on above: Performed By: #### M [id number] #### [facility] Laboratory [address] [place], [address] RDW SD 51.6 fl High 35.1-43.9 [facility] Comment on above: Performed By: #### M [id number] #### [facility] Laboratory [address] [place], [address] WBC (Bld) [#/Vol] 7.7 10*3/uL Normal 4.4-11.0 [facility] Comment on above: Performed By: #### M [id number] #### [facility] Laboratory [address] [place], [address] Calculated very low density lipoprotein (VLDL) cholesterol measurementOrdered By: Clifton Del Valle on 09-05-2024 Calculated very low density lipoprotein (VLDL) cholesterol measurement 20 mg/dL 5-40 [facility] Carbon dioxide, total [Moles /volume] in Central venous bloodOrdered By: Clifton Del Valle on 09-05-2024 CO2 [Moles/Vol] 22.5 mmol/L 21.0-32.0 [facility] Chloride assayOrdered By: Joey Del Valle on 09-05-2024 Chloride [Moles/Vol] 104 mmol/L 98-108 [facility] Comprehensive Metabolic Prof ilon 09-05-2024 Albumin [Mass/Vol] 4.2 g/dL Normal 3.4-4.8 [facility] Comment on above: Performed By: #### M [id number] #### [facility] Laboratory [address] [place], [address] Albumin/Globulin [Mass ratio] 1.7 {ratio} Normal 0.9-2.4 [facility] Comment on above: Performed By: #### M [id number] #### [facility] Laboratory [address] [place], [address] ALK PHOS 80 U/L Normal 40-129 [facility] Comment on above: Performed By: #### M [id number] #### [facility] Laboratory [address] [place], [address] ALT [Catalytic activity/Vol] 35 U/L Normal <=46 [facility] Comment on above: Performed By: #### M [id number] #### [facility] Laboratory [address] [place], [address] AST [Catalytic activity/Vol] 29 U/L Normal <=37 [facility] Comment on above: Performed By: #### M [id number] #### [facility] Laboratory [address] [place], [address] Bilirubin [Mass/Vol] 0.45 mg/dL Normal 0.00-1.30 [facility] Comment on above: Performed By: #### M [id number] #### [facility] Laboratory [address] [place], [address] BUN/CRE 16.4 RATIO Normal 10-20 [facility] Comment on above: Performed By: #### M [id number] #### [facility] Laboratory [address] [place], [address] Calcium [Mass/Vol] 9.1 mg/dL Normal 7.6-11.0 [facility] Comment on above: Performed By: #### M [id number] #### [facility] Laboratory [address] [place], [address] Chloride [Moles/Vol] 104 mmol/L Normal 98-108 [facility] Comment on above: Performed By: #### M 100.678 #### [facility] Laboratory [address] [place], [address] CO2 [Moles/Vol] 22.5 mmol/L Normal 21.0-32.0 [facility] Comment on above: Performed By: #### M 100.678 #### [facility] Laboratory [address] [place], [address] Creatinine [Mass/Vol] 0.92 mg/dL Normal 0.70-1.20 [facility] Comment on above: Performed By: #### M 100.678 #### [facility] Laboratory [address] [place], [address] GAP 12 Normal 5-15 [facility] Comment on above: Performed By: #### M 100.678 #### [facility] Laboratory [address] [place], [address] GFR/1.73 sq M.predicted among non-blacks MDRD (S/P/Bld) [Vol rate/Area] 84 mL/min/{1.73_m2} Normal >60 [facility] Comment on above: Result Comment: mL/m in/1.73m2 CKD-EPI Creatinine Equation (2020) Performed By: #### M [id number] #### [facility] Laboratory [address] [place], [address] Globulin (S) [Mass/Vol] 2.5 g/dL Normal 2.2-4.2 [facility] Comment on above: Performed By: #### M [id number] #### [facility] Laboratory [address] [place], [address] Glucose [Mass/Vol] 104 mg/dL High 70-99 [facility] Comment on above: Performed By: #### M [id number] #### [facility] Laboratory [address] [place], [address] Potassium [Moles/Vol] 4.3 mmol/L Normal 3.3-5.1 [facility] Comment on above: Performed By: #### M 100.678 #### [facility] Laboratory [address] [place], [address] Sodium [Moles/Vol] 139 mmol/L Normal 133-145 [facility] Comment on above: Performed By: #### M [id number] #### [facility] Laboratory [address] [place], [address] T PROT 6.7 g/dL Normal 5.9-8.4 [facility] Comment on above: Performed By: #### M [id number] #### [facility] Laboratory [address] [place], [address] Urea nitrogen [Mass/Vol] 15 mg/dL Normal 4-19 [facility] Comment on above: Performed By: #### M 100.678 #### [facility] Laboratory [address] [place], [address] Eosinophil percentageOrdered By: Clifton Del Valle on 09-05-2024 Eosinophils/100 WBC (Bld) 1.0 % 0-5 [facility] Erythrocyte distribution wid th ratioOrdered By: Clifton Del Valle on 09-05-2024 Erythrocyte distribution width (RBC) [Ratio] 14.4 % 11.6-14.6 [facility] Erythrocyte distribution wid th standard deviationOrdered By: Clifton Del Valle on 09-05-2024 Erythrocyte distribution width (RBC) [Ratio] 51.6 fl High 35.1-43.9 [facility] Glomerular filtration rate ( GFR) estimation/1.73 sq m using serum, plasma, or whole bOrdered By: Clifton Del Valle on 09-05-2024 GFR/1.73 sq M.predicted among non-blacks MDRD (S/P/Bld) [Vol rate/Area] 84 mL/min/{1.73_m2} >60 [facility] Comment on above: mL/min/1.73m2 CKD-EP I Creatinine Equation (2020) Hematocrit Auto (Bld) [Volum e fraction]Ordered By: Clifton Del Valle on 09-05-2024 Hematocrit (Bld) [Volume fraction] 49.2 % 40-54 [facility] Hemoglobin measurementOrdere d By: Clifton Del Valle on 09-05-2024 Hemoglobin (Bld) [Mass/Vol] 16.5 g/dL 13.0-16.5 [facility] Immature granulocytes/100 WB C Auto (Bld)Ordered By: Clifton Del Valle on 09-05-2024 Immature granulocytes/100 WBC (Bld) 0.400 % 0.0-0.9 [facility] Comment on above: IG% - Immature Granu locytes (promyelocytes, myelocytes and metamyelocytes) > 1% indicates that a LEFT SHIFT is Present. LDL calc ser/plasOrdered By: Clifton Del Valle on 09-05-2024 Cholesterol in LDL [Mass/Vol] 65 mg/dL [facility] Comment on above: Njeeftpbjl=640-114 m g/dL & Higher Ribd=687 mg/dL or greater Laboratory - Chemistry and C hemistry - challengeOrdered By: Clifton Del Valle on 09-05-2024 AST [Catalytic activity/Vol] 29 U/L <38 [facility] Lipid Profileon 09-05-2024 CHOL:HDL 3.00 Normal [facility] Comment on above: Performed By: #### M [id number] #### [facility] Laboratory [address] [place], [place], [id number] Cholesterol [Mass/Vol] 127 mg/dL Normal <=200 [facility] Comment on above: Result Comment: Chol esterol level, Desirable <200 mg/dL Borderline high cholesterol 200-239 mg/dL High cholesterol >=240 mg/dL Recommendations of the NCEP Adult Treatment Panel for the following risk-cutoff thresholds for the [place] population. Performed By: #### M [id number] #### [facility] Laboratory [address] [place], [address] Cholesterol in HDL [Mass/Vol] 42 mg/dL Normal [facility] Comment on above: Result Comment: Amaya onal Cholesterol Education Program (NCEP) guidelines: <40 mg/dL: Low HDL-cholesterol (major risk factor for CHD) >= 60 mg/dL: High HDL-cholesterol (negative risk factor for CHD) HDL-cholesterol is affected by a number of factors, e.g. smoking, exercise, hormones, sex and age. Performed By: #### M [id number] #### [facility] Laboratory [address] [place], [address] Cholesterol in LDL [Mass/Vol] 65 mg/dL Normal [facility] Comment on above: Result Comment: Bord kysjjf=292-113 mg/dL Higher Mkts=495 mg/dL or greater Performed By: #### M 100.678 #### [facility] Laboratory [address] [place], [address] Cholesterol in VLDL [Mass/Vol] 20 mg/dL Normal 5-40 [facility] Comment on above: Performed By: #### M [id number] #### [facility] Laboratory [address] [place], [address] Triglyceride [Mass/Vol] 98 mg/dL Normal [facility] Comment on above: Result Comment: The drugs N-Acetylcysteine and Metamizole may falsely depress this assay. Normal range: <150 mg/dL Borderline High: 150-199 mg/dL High: 200-499 mg/dL Very High: >500 mg/dL Performed By: #### M [id number] #### [facility] Laboratory [address] [place], [address] MCV (mean corpuscular volume ) determinationOrdered By: Clifton Del Valle on 09-05-2024 MCV (RBC) [Entitic vol] 96.3 fL High 80-94 [facility] Mean corpuscular hemoglobin (MCH) determinationOrdered By: Clifton Del Valle on 09-05-2024 MCH (RBC) [Entitic mass] 32.3 pg High 27.0-32.0 [facility] Mean corpuscular hemoglobin concentration (MCHC) determinationOrdered By: Clifton Del Valle on 09-05-2024 MCHC (RBC) [Mass/Vol] 33.5 g/dL 32-36 [facility] Mean platelet volume determi nationOrdered By: Clifton Del Valle on 09-05-2024 Platelet mean volume (Bld) [Entitic vol] 9.3 fL 6.2-12.0 [facility] Monocyte percentageOrdered B y: Clifton Del Valle on 09-05-2024 Monocytes/100 WBC (Bld) 10.0 % 0-10 [facility] Neutrophil percentageOrdered By: Clifton Del Valle on 09-05-2024 Neutrophils/100 WBC (Bld) 62.1 % 47-70 [facility] Nucleated red blood cell per centageOrdered By: Clifton Del Valle on 09-05-2024 Nucleated RBC/100 WBC (Bld) [Ratio] 0 % 0-5 [facility] Platelet countOrdered By: Joey Del Valle on 09-05-2024 Platelets (Bld) [#/Vol] 309 10*3/uL 150-450 [facility] Potassium measurement (mass/ volume)Ordered By: Clifton Del Valle 09-05-2024 Potassium (Unsp spec) [Mass/Vol] 4.3 mmol/L 3.3-5.1 [facility] RBC Auto (Bld) [#/Vol]Ordere d By: Clifton Del Valle on 09-05-2024 RBC (Bld) [#/Vol] 5.11 10*6/uL 4.6-6.2 [facility] Screening total cholesterol/ high density lipoprotein (HDL) cholesterol ratioOrdered By: Clifton Del Valle on 09-05-2024 Cholesterol.total/Cho lesterol in HDL [Mass ratio] 3.00 {ratio} [facility] Serum creatinine measurement (mass/volume)Ordered By: Clifton Del Valle on 09-05-2024 Creatinine [Mass/Vol] 0.92 mg/dL 0.70-1.20 [facility] Serum globulin measurementOr dered By: Clifton Del Valle 09-05-2024 Globulin (S) [Mass/Vol] 2.5 g/dL 2.2-4.2 [facility] Serum glucose measurement (m ass/volume)Ordered By: Cliftno Vallejook 09-05-2024 Glucose [Mass/Vol] 104 mg/dL High 70-99 [facility] Serum or plasma alanine quesada otransferase (ALT) measurementOrdered By: Clifton Vallejook 09-05-2024 ALT [Catalytic activity/Vol] 35 U/L <47 [facility] Serum or plasma albumin jean urement (mass/volume)Ordered By: Clifton Eligio 09-05-2024 Albumin [Mass/Vol] 4.2 g/dL 3.4-4.8 [facility] Serum or plasma albumin/glob ulin mass ratioOrdered By: Clifton Eligio 09-05-2024 Albumin/Globulin [Mass ratio] 1.7 {ratio} 0.9-2.4 [facility] Serum or plasma alkaline annika sphatase measurementOrdered By: Clifton Del Valle 09-05-2024 ALP [Catalytic activity/Vol] 80 U/L 40-129 [facility] Serum or plasma calcium jean urement (mass/volume)Ordered By: Clifton Del Valle 09-05-2024 Calcium [Mass/Vol] 9.1 mg/dL 7.6-11.0 [facility] Serum or plasma cholesterol in HDL measurement (mass/volume)Ordered By: Clifton Del Valle 09-05-2024 Cholesterol in HDL [Mass/Vol] 42 mg/dL >40 [facility] Comment on above: National Cholesterol Education Program (NCEP) guidelines:<40 mg/dL: Low HDL-cholesterol (major risk factor for CHD)>= 60 mg/dL: High HDL-cholesterol (negative risk factor for CHD)HDL-cholesterol is affected by a number of factors, e.g. smoking, exercise, hormones, sex and age. Serum or plasma cholesterol measurement (mass/volume)Ordered By: Clifton Del Valle 09-05-2024 Cholesterol [Mass/Vol] 127 mg/dL <201 [facility] Comment on above: Cholesterol level, D esirable <200 mg/dLBorderline high cholesterol 200-239 mg/dLHigh cholesterol >=240 mg/dLRecommendations of the NCEP Adult Treatment Panel for the following risk-cutoff thresholds for the [place] population. Serum or plasma urea nitroge n measurement (mass/volume)Ordered By: Clifton Del Valle on 09-05-2024 Urea nitrogen [Mass/Vol] 15 mg/dL 4-19 [facility] Sodium levelOrdered By: Clifton Del Valle on 09-05-2024 Sodium [Moles/Vol] 139 mmol/L 133-145 [facility] TSH DL <= 0.005 mIU/L QnOrde red By: Clifton Del Valle on 09-05-2024 TSH Qn 2.290 uIU/mL 0.300-4.20 0 [facility] Thyroid Stim Hormone (TSH)on 09-05-2024 TSH 2.290 uIU/mL Normal 0.300-4.20 0 [facility] Comment on above: Performed By: #### M 100.678 #### [facility] Laboratory [address] [place], [place], [id number] Total proteinOrdered By: Clifton Del Valle on 09-05-2024 Protein [Mass/Vol] 6.7 g/dL 5.9-8.4 [facility] Triglycerides measurementOrd ered By: Clifton Del Valle on 09-05-2024 Triglyceride [Mass/Vol] 98 mg/dL <199 [facility] Comment on above: The drugs N-Acetylcy steine and Metamizole may falsely depress this assay. Normal range: <150 mg/dLBorderline High: 150-199 mg/dLHigh: 200-499 mg/dLVery High: >500 mg/dL Vitamin D,25 Hydroxyon 09-05 Vitamin D 25-OH 39.7 ng/mL Normal 30-100 [facility] Comment on above: Result Comment: Jazmín min D Status Deficiency: <20 ng/mL (50nmol/L) Insufficiency: 20-30 ng/mL (50-75 nmol/L) Sufficiency: 30-100 ng/mL (75-250 nmol/L) Toxicity: >100 ng/mL (>250 nmol/L) Performed By: #### M 100.678 #### [facility] Laboratory [address] [place], [address] White blood cell (WBC) count Ordered By: Clifton Del Valle on 09-05-2024 WBC (Bld) [#/Vol] 7.7 10*3/uL 4.4-11.0 [facility] Culture, Blood (WB)on 2024 CUB Blood Cultures x2, f rom two different sites No growth in 5 days. Normal [facility] Comment on above: Performed By: #### M 200.1000 #### [facility] Laboratory [address] [place], [address] Absolute lymphocyte countOrd ered By: Bertin Wolff on 07-15-2024 Lymphocytes Auto (Unsp spec) [#/Vol] 0.94 10*3/uL 0.83-4.51 [facility] Absolute neutrophil countOrd ered By: Bertin Wolff on 07-15-2024 Neutrophils (Bld) [#/Vol] 7.6 10*3/uL 2.0-7.7 [facility] Automated lymphocyte count a s percentage of total leukocytesOrdered By: Bertin Wolff on 07-15-2024 Lymphocytes/100 WBC Auto (Unsp spec) 9.7 % Low 19-41 [facility] Basophil percentageOrdered B y: Bertin Wolff on 07-15-2024 Basophils/100 WBC (Bld) 0.3 % 0-1 [facility] CBC W/Diff, Automatedon 06-23 Absolute Lymph 0.94 X10 3/uL Normal 0.83-4.51 [facility] Comment on above: Performed By: #### M 100.678 #### [facility] Laboratory [address] [place], [address] Absolute Neut 7.6 X10 3/uL Normal 2.0-7.7 [facility] Comment on above: Performed By: #### M 100.678 #### [facility] Laboratory [address] [place], [address] Basophils/100 WBC (Bld) 0.3 % Normal 0-1 [facility] Comment on above: Performed By: #### M 100.678 #### [facility] Laboratory [address] [place], [address] Eosinophils/100 WBC (Bld) 0.4 % Normal 0-5 [facility] Comment on above: Performed By: #### M 100.678 #### [facility] Laboratory [address] [place], [address] Erythrocyte distribution width (RBC) [Ratio] 14.5 % Normal 11.6-14.6 [facility] Comment on above: Performed By: #### M 100.678 #### [facility] Laboratory [address] [place], [address] Hematocrit (Bld) [Volume fraction] 42.1 % Normal 40-54 [facility] Comment on above: Performed By: #### M 100.678 #### [facility] Laboratory [address] [place], [address] Hemoglobin (Bld) [Mass/Vol] 14.3 g/dL Normal 13.0-16.5 [facility] Comment on above: Performed By: #### M 100.678 #### [facility] Laboratory [address] [place], [address] IG% 0.500 Normal 0.0-0.9 [facility] Comment on above: Result Comment: IG% - Immature Granulocytes (promyelocytes, myelocytes and metamyelocytes) > 1% indicates that a LEFT SHIFT is Present. Performed By: #### M 100.678 #### [facility] Laboratory [address] [place], [address] Lymphocytes/100 WBC (Bld) 9.7 % Low 19-41 [facility] Comment on above: Performed By: #### M 100.678 #### [facility] Laboratory [address] [place], [address] MCH (RBC) [Entitic mass] 32.1 pg High 27.0-32.0 [facility] Comment on above: Performed By: #### M 100.678 #### [facility] Laboratory [address] [place], [address] MCHC (RBC) [Mass/Vol] 34.0 g/dL Normal 32-36 [facility] Comment on above: Performed By: #### M 100.678 #### [facility] Laboratory [address] [place], [address] MCV (RBC) [Entitic vol] 94.4 fL High 80-94 [facility] Comment on above: Performed By: #### M 100.678 #### [facility] Laboratory [address] [place], [address] Monocytes/100 WBC (Bld) 11.0 % High 0-10 [facility] Comment on above: Performed By: #### M 100.678 #### [facility] Laboratory [address] [place], [address] Neutrophils/100 WBC (Bld) 78.1 % High 47-70 [facility] Comment on above: Performed By: #### M 100.678 #### [facility] Laboratory [address] [place], [address] Nucleated RBC (Bld) [#/Vol] 0 10*3/uL Normal 0-5 [facility] Comment on above: Performed By: #### M 100.678 #### [facility] Laboratory [address] [place], [address] Platelet mean volume (Bld) [Entitic vol] 9.2 fL Normal 6.2-12.0 [facility] Comment on above: Performed By: #### M 100.678 #### [facility] Laboratory [address] [place], [address] Platelets (Bld) [#/Vol] 218 10*3/uL Normal 150-450 [facility] Comment on above: Performed By: #### M 100.678 #### [facility] Laboratory [address] [place], [address] RBC (Bld) [#/Vol] 4.46 10*6/uL Low 4.6-6.2 [facility] Comment on above: Performed By: #### M 100.678 #### [facility] Laboratory [address] [place], [address] RDW SD 50.4 fl High 35.1-43.9 [facility] Comment on above: Performed By: #### M 100.678 #### [facility] Laboratory [address] [place], [address] WBC (Bld) [#/Vol] 9.7 10*3/uL Normal 4.4-11.0 [facility] Comment on above: Performed By: #### M 100.678 #### [facility] Laboratory [address] [place], [address] Discharge Instructionon 06-23 Discharge Instruction [facility] Medical Records Department [address] [place] [address] Instructions for Home/Discharge Instructions 07/15/24 1108 MR#: [id number] Acct: [id number] Name: CRISTINA JEFFREY Rep #: [id number] : 1945 79 From: Bertin Wolff DO [...] MG tablet 40 mg PO BID vitamins A,C,S-knau-unavkm 1 EACH capsule 1 ea PO BID [...] Dr. Clifton Del Valle MD Signed Normal [facility] Electrocardiogram reportOrde red By: Pete Garner on 07-15-2024 EKG study [facility] Cardiovascular Services [address] [place] [address] 12 Lead EKG 07/13/24 0650 MR#: [id number] Acct: [id number] Name: CRISTINA JEFFREY Rep #:[id number] : 1945 79 From: Pete Garner MD [...] Abnormal ECG Confirmed by PASCUAL KESSLER, PETE ([id number]), editor publications DARYN KELLER ([id number]) on 58:13:31 AM Referred By: RON Confirmed By: PETE GARNER MD 07/15/24812 Date _ Pete Garner MD CC: Dr. Otf Jefferson MD; Dr. Bertin Wolff DO; Dr. Clifton Del Valle MD ~ Signed [facility] Work Phone: Eosinophil percentageOrdered By: Bertin Wolff on 07-15-2024 Eosinophils/100 WBC (Bld) 0.4 % 0-5 [facility] Erythrocyte distribution wid th ratioOrdered By: Bertin Wolff on 07-15-2024 Erythrocyte distribution width (RBC) [Ratio] 14.5 % 11.6-14.6 [facility] Erythrocyte distribution wid th standard deviationOrdered By: Bertin Wolff on 07-15-2024 Erythrocyte distribution width (RBC) [Entitic vol] 50.4 fL High 35.1-43.9 [facility] Erythrocyte distribution width (RBC) [Ratio] 50.4 fl High 35.1-43.9 [facility] Hematocrit Auto (Bld) [Volum e fraction]Ordered By: Bertin Wolff on 07-15-2024 Hematocrit (Bld) [Volume fraction] 42.1 % 40-54 [facility] Hemoglobin measurementOrdere d By: Bertin Wolff on 07-15-2024 Hemoglobin (Bld) [Mass/Vol] 14.3 g/dL 13.0-16.5 [facility] Immature granulocytes/100 WB C Auto (Bld)Ordered By: Bertin Wolff on 07-15-2024 Immature granulocytes/100 WBC (Bld) 0.500 % 0.0-0.9 [facility] Comment on above: IG% - Immature Granu locytes (promyelocytes, myelocytes and metamyelocytes) > 1% indicates that a LEFT SHIFT is Present. Lymphocytes Auto (Unsp spec) [#/Vol]Ordered By: Bertin Wolff on 07-15-2024 Lymphocytes (Bld) [#/Vol] 0.94 10*3/uL 0.83-4.51 [facility] Lymphocytes/100 WBC Auto (Un sp spec)Ordered By: Bertin Wolff on 07-15-2024 Lymphocytes/100 WBC (Bld) 9.7 % Low 19-41 [facility] MCV (mean corpuscular volume ) determinationOrdered By: Bertin Wolff on 07-15-2024 MCV (RBC) [Entitic vol] 94.4 fL High 80-94 [facility] Mean corpuscular hemoglobin (MCH) determinationOrdered By: Bertin Wolff on 07-15-2024 MCH (RBC) [Entitic mass] 32.1 pg High 27.0-32.0 [facility] Mean corpuscular hemoglobin concentration (MCHC) determinationOrdered By: Bertin Wolff on 07-15-2024 MCHC (RBC) [Mass/Vol] 34.0 g/dL 32-36 [facility] Mean platelet volume determi nationOrdered By: Bertin Wolff on 07-15-2024 Platelet mean volume (Bld) [Entitic vol] 9.2 fL 6.2-12.0 [facility] Monocyte percentageOrdered B y: Bertin Wolff on 07-15-2024 Monocytes/100 WBC (Bld) 11.0 % High 0-10 [facility] Neutrophil percentageOrdered By: Bertin Wolff on 07-15-2024 Neutrophils/100 WBC (Bld) 78.1 % High 47-70 [facility] Nucleated red blood cell per centageOrdered By: Bertin Wolff on 07-15-2024 Nucleated RBC/100 WBC (Bld) [Ratio] 0 % 0-5 [facility] Platelet countOrdered By: Mariana Wolff on 07-15-2024 Platelets (Bld) [#/Vol] 218 10*3/uL 150-450 [facility] RBC Auto (Bld) [#/Vol]Ordere d By: Bertin Wolff on 07-15-2024 RBC (Bld) [#/Vol] 4.46 10*6/uL Low 4.6-6.2 [facility] White blood cell (WBC) count Ordered By: Bertin Wolff on 07-15-2024 WBC (Bld) [#/Vol] 9.7 10*3/uL 4.4-11.0 [facility] Anion gap in Serum or Plasma Ordered By: Bertin Wolff on 07-14-2024 Anion gap [Moles/Vol] 11 mmol/L 09-05 [facility] BUN/creatinine ratioOrdered By: Bertin Wolff on 07-14-2024 Urea nitrogen/Creatinine [Mass ratio] 15.6 mg/mg 02-10 [facility] Basic Metabolic Profile (BMP )on 07-14-2024 BUN/CRE 15.6 RATIO Normal 02-10 [facility] Comment on above: Performed By: #### M 200.1000 #### [facility] Laboratory [address] [place], [address] Calcium [Mass/Vol] 8.5 mg/dL Normal 7.6-11.0 [facility] Comment on above: Performed By: #### M 200.1000 #### [facility] Laboratory [address] [place], [address] Chloride [Moles/Vol] 106 mmol/L Normal 98-108 [facility] Comment on above: Performed By: #### M 200.1000 #### [facility] Laboratory [address] [place], [address] CO2 [Moles/Vol] 20.5 mmol/L Low 21.0-32.0 [facility] Comment on above: Performed By: #### M 200.1000 #### [facility] Laboratory [address] [place], [address] Creatinine [Mass/Vol] 0.92 mg/dL Normal 0.70-1.20 [facility] Comment on above: Performed By: #### M 200.1000 #### [facility] Laboratory [address] [place], [address] ECRCL 74.79 ml/min Normal 50-250 [facility] Comment on above: Performed By: #### M 200.1000 #### [facility] Laboratory [address] [place], [address] GAP 11 Normal 5-15 [facility] Comment on above: Performed By: #### M 200.1000 #### [facility] Laboratory [address] [place], [address] GFR/1.73 sq M.predicted among non-blacks MDRD (S/P/Bld) [Vol rate/Area] 85 mL/min/{1.73_m2} Normal >60 [facility] Comment on above: Result Comment: mL/m in/1.73m2 CKD-EPI Creatinine Equation (2020) Performed By: #### M 200.1000 #### [facility] Laboratory [address] [place], [address] Glucose [Mass/Vol] 111 mg/dL High 70-99 [facility] Comment on above: Performed By: #### M 200.1000 #### [facility] Laboratory [address] [place], [address] Potassium [Moles/Vol] 4.0 mmol/L Normal 3.3-5.1 [facility] Comment on above: Result Comment: Hemo lysis present, Results??could be affected. ?? Performed By: #### M 200.1000 #### [facility] Laboratory [address] [place], [address] Sodium [Moles/Vol] 138 mmol/L Normal 133-145 [facility] Comment on above: Performed By: #### M 200.1000 #### [facility] Laboratory [address] [place], [address] Urea nitrogen [Mass/Vol] 14 mg/dL Normal 4-19 [facility] Comment on above: Performed By: #### M 200.1000 #### [facility] Laboratory [address] [place], [address] CBC W/Diff, Automatedon 03-2 -2024 Absolute Lymph 1.37 X10 3/uL Normal 0.83-4.51 [facility] Comment on above: Performed By: #### M 100.678 #### [facility] Laboratory [address] [place], [address] Absolute Neut 11.9 X10 3/uL High 2.0-7.7 [facility] Comment on above: Performed By: #### M 100.678 #### [facility] Laboratory [address] [place], [address] Basophils/100 WBC (Bld) 0.2 % Normal 0-1 [facility] Comment on above: Performed By: #### M 100.678 #### [facility] Laboratory [address] [place], [address] Eosinophils/100 WBC (Bld) 0.3 % Normal 0-5 [facility] Comment on above: Performed By: #### M 100.678 #### [facility] Laboratory [address] [place], [address] Erythrocyte distribution width (RBC) [Ratio] 14.8 % High 11.6-14.6 [facility] Comment on above: Performed By: #### M 100.678 #### [facility] Laboratory [address] [place], [address] Hematocrit (Bld) [Volume fraction] 41.5 % Normal 40-54 [facility] Comment on above: Performed By: #### M 100.678 #### [facility] Laboratory [address] [place], [address] Hemoglobin (Bld) [Mass/Vol] 14.2 g/dL Normal 13.0-16.5 [facility] Comment on above: Performed By: #### M 100.678 #### [facility] Laboratory [address] [place], [address] IG% 0.300 Normal 0.0-0.9 [facility] Comment on above: Result Comment: IG% - Immature Granulocytes (promyelocytes, myelocytes and metamyelocytes) > 1% indicates that a LEFT SHIFT is Present. Performed By: #### M 100.678 #### [facility] Laboratory [address] [place], [address] Lymphocytes/100 WBC (Bld) 9.4 % Low 19-41 [facility] Comment on above: Performed By: #### M 100.678 #### [facility] Laboratory [address] [place], [address] MCH (RBC) [Entitic mass] 32.6 pg High 27.0-32.0 [facility] Comment on above: Performed By: #### M 100.678 #### [facility] Laboratory [address] [place], [address] MCHC (RBC) [Mass/Vol] 34.2 g/dL Normal 32-36 [facility] Comment on above: Performed By: #### M 100.678 #### [facility] Laboratory [address] [place], [address] MCV (RBC) [Entitic vol] 95.4 fL High 80-94 [facility] Comment on above: Performed By: #### M 100.678 #### [facility] Laboratory [address] [place], [address] Monocytes/100 WBC (Bld) 8.1 % Normal 0-10 [facility] Comment on above: Performed By: #### M 100.678 #### [facility] Laboratory [address] [place], [address] Neutrophils/100 WBC (Bld) 81.7 % High 47-70 [facility] Comment on above: Performed By: #### M 100.678 #### [facility] Laboratory [address] [place], [address] Nucleated RBC (Bld) [#/Vol] 0 10*3/uL Normal 0-5 [facility] Comment on above: Performed By: #### M 100.678 #### [facility] Laboratory [address] [place], [address] Platelet mean volume (Bld) [Entitic vol] 9.7 fL Normal 6.2-12.0 [facility] Comment on above: Performed By: #### M 100.678 #### [facility] Laboratory [address] [place], [address] Platelets (Bld) [#/Vol] 238 10*3/uL Normal 150-450 [facility] Comment on above: Performed By: #### M 100.678 #### [facility] Laboratory [address] [place], [address] RBC (Bld) [#/Vol] 4.35 10*6/uL Low 4.6-6.2 [facility] Comment on above: Performed By: #### M 100.678 #### [facility] Laboratory [address] [place], [address] RDW SD 52.5 fl High 35.1-43.9 [facility] Comment on above: Performed By: #### M 100.678 #### [facility] Laboratory [address] [place], [address] WBC (Bld) [#/Vol] 14.5 10*3/uL High 4.4-11.0 [facility] Comment on above: Performed By: #### M 100.678 #### [facility] Laboratory [address] [place], [place], [address] Carbon dioxide, total [Moles /volume] in Central venous bloodOrdered By: Bertin Wolff on 07-14-2024 CO2 [Moles/Vol] 20.5 mmol/L Low 21.0-32.0 [facility] Chest 1 View (Portable)on Chest 1 View (Portable) [facility] Imaging Services [address] [place] [address] Chest 1 View (Portable) MR#: [id number] Acct: [id number] Name: CRISTINA JEFFREY Rep #: [id number] : 1945 M 79 From: Afshin Conner PCP: Dr. Clifton Del Valle MD Status: ADM IN Study: Chest 1 View (Portable) Date of Exam: 07/14/24 Exam# [id number] Ordering Dr: Bertin Wolff DO PROCEDURE: CHEST [...] The cardiomediastinal silhouette is stable. Reading Location: [address] CC: Dr. Bertin Wolff DO; Dr. Clifton Del Valle MD Conflicts Analyst: Signed Normal [facility] Chloride assayOrdered By: Mariana Wolff on 07-14-2024 Chloride [Moles/Vol] 106 mmol/L 98-108 [facility] Estimation of creatinine marvel aranceOrdered By: Bertin Wolff on 07-14-2024 Estimated Creatinine Clearance Calc 74.79 ml/min 50-250 [facility] GFR/1.73 sq M.predicted erlinda g non-blacks MDRD (S/P/Bld) [Vol rate/Area]Ordered By: Bertin Wolff on 07-14-2024 Estimated GFR (MDRD) Non-Af Amer 85 >60 [facility] Comment on above: mL/min/1.73m2 CKD-EP I Creatinine Equation (2020) Glomerular filtration rate ( GFR) estimation/1.73 sq m using serum, plasma, or whole bOrdered By: Bertin Wolff on 07-14-2024 GFR/1.73 sq M.predicted among non-blacks MDRD (S/P/Bld) [Vol rate/Area] 85 mL/min/{1.73_m2} >60 [facility] Comment on above: mL/min/1.73m2 CKD-EP I Creatinine Equation (2020) Potassium (Unsp spec) [Mass/ Vol]Ordered By: Bertin Wolff on 07-14-2024 Potassium [Moles/Vol] 4.0 mmol/L 3.3-5.1 [facility] Comment on above: Hemolysis present, R esults could be affected. Potassium measurement (mass/ volume)Ordered By: Bertin Wolff on 07-14-2024 Potassium (Unsp spec) [Mass/Vol] 4.0 mmol/L 3.3-5.1 [facility] Comment on above: Hemolysis present, R esults could be affected. Serum creatinine measurement (mass/volume)Ordered By: Bertin Wolff on 07-14-2024 Creatinine [Mass/Vol] 0.92 mg/dL 0.70-1.20 [facility] Serum glucose measurement (m ass/volume)Ordered By: Bertin Wolff on 07-14-2024 Glucose [Mass/Vol] 111 mg/dL High 70-99 [facility] Serum or plasma calcium jean urement (mass/volume)Ordered By: Bertin Wolff on 07-14-2024 Calcium [Mass/Vol] 8.5 mg/dL 7.6-11.0 [facility] Serum or plasma urea nitroge n measurement (mass/volume)Ordered By: Bertin Wolff on 07-14-2024 Urea nitrogen [Mass/Vol] 14 mg/dL 4-19 [facility] Sodium levelOrdered By: Bertin Wolff on 07-14-2024 Sodium [Moles/Vol] 138 mmol/L 133-145 [facility] 12 Lead EKGon 07-13-2024 12 Lead EKG [facility] Cardiovascular Services [address] [place] [address] 12 Lead EKG 07/13/24 0650 MR#: [id number] Acct: [id number] Name: CRISTINA JEFFREY Rep #: [id number] : 1945 79 From: Pete Garner MD Attending Dr: Dr. Bertin Wolff DO Status: A DM IN Ordering Dr: Otf Jefferson MD Date: 07/13/24 Location: [facility] Sex: M C Admitted: 07/13/24 Test [...] Confirmed by PETE GARNER MD ([id number]), editor publications DARYN KELLER ([id number]) on 07/15/2024 8:13:31 AM Referred By: RON Confirmed By: PETE GARNER MD 07/15/24 0813 Date Pete Garner MD CC: Dr. Otf Jefferson MD; Dr. Bertin Wolff DO; Dr. Clifton Del Valle MD Signed Normal [facility] Absolute neutrophil countOrd ered By: Otf Jefferson on 07-13-2024 Neutrophils (Bld) [#/Vol] 12.0 10*3/uL High 2.0-7.7 [facility] Anion gap in Serum or Plasma Ordered By: Otf Jefferson on 07-13-2024 Anion gap [Moles/Vol] 13 mmol/L 5-15 [facility] BUN/creatinine ratioOrdered By: Otf Jefferson on 07-13-2024 Urea nitrogen/Creatinine [Mass ratio] 12.7 mg/mg - [facility] Basic Metabolic Profile (BMP )on 07-13-2024 BUN/CRE 12.7 RATIO Normal - [facility] Comment on above: Performed By: #### M 100.678 #### [facility] Laboratory [address] [place], [address] Calcium [Mass/Vol] 9.0 mg/dL Normal 7.6-11.0 [facility] Comment on above: Performed By: #### M 100.678 #### [facility] Laboratory [address] [place], [address] Chloride [Moles/Vol] 101 mmol/L Normal 98-108 [facility] Comment on above: Performed By: #### M 100.678 #### [facility] Laboratory [address] [place], [address] CO2 [Moles/Vol] 23.2 mmol/L Normal 21.0-32.0 [facility] Comment on above: Performed By: #### M 100.678 #### [facility] Laboratory [address] [place], [address] Creatinine [Mass/Vol] 1.10 mg/dL Normal 0.70-1.20 [facility] Comment on above: Performed By: #### M 100.678 #### [facility] Laboratory [address] [place], [address] ECRCL 63.60 ml/min Normal 50-250 [facility] Comment on above: Performed By: #### M 100.678 #### [facility] Laboratory [address] [place], [address] GAP 13 Normal 5-15 [facility] Comment on above: Performed By: #### M 100.678 #### [facility] Laboratory [address] [place], [address] GFR/1.73 sq M.predicted among non-blacks MDRD (S/P/Bld) [Vol rate/Area] 68 mL/min/{1.73_m2} Normal >60 [facility] Comment on above: Result Comment: mL/m in/1.73m2 CKD-EPI Creatinine Equation (2020) Performed By: #### M 100.678 #### [facility] Laboratory [address] [place], [address] Glucose [Mass/Vol] 122 mg/dL High 70-99 [facility] Comment on above: Performed By: #### M 100.678 #### [facility] Laboratory [address] [place], [address] Potassium [Moles/Vol] 4.6 mmol/L Normal 3.3-5.1 [facility] Comment on above: Performed By: #### M 100.678 #### [facility] [address] [place], [address] Sodium [Moles/Vol] 137 mmol/L Normal 133-145 [facility] Comment on above: Performed By: #### M 100.678 #### [facility] [address] [place], [address] Urea nitrogen [Mass/Vol] 14 mg/dL Normal 4-19 [facility] Comment on above: Performed By: #### M 100.678 #### [facility] [address] [place], [address] Basophil percentageOrdered B y: Otf Jefferson on 07-13-2024 Basophils/100 WBC (Bld) 0.1 % 0-1 [facility] Blood cultureOrdered By: Kacy Jefferson on 07-13-2024 Bacteria identified Cx Nom (Bld) No growth in 5 days. [facility] CBC W/Diff, Automatedon 06-23 Absolute Lymph 0.65 X10 3/uL Low 0.83-4.51 [facility] Comment on above: Performed By: #### M 100.678 #### [facility] [address] [place], [address] Absolute Neut 12.0 X10 3/uL High 2.0-7.7 [facility] Comment on above: Performed By: #### M 100.678 #### [facility] [address] [place], [address] Basophils/100 WBC (Bld) 0.1 % Normal 0-1 [facility] Comment on above: Performed By: #### M 100.678 #### [facility] [address] [place], [address] Eosinophils/100 WBC (Bld) 0.1 % Normal 0-5 [facility] Comment on above: Performed By: #### M 100.678 #### [facility] [address] [place], [address] Erythrocyte distribution width (RBC) [Ratio] 14.2 % Normal 11.6-14.6 [facility] Comment on above: Performed By: #### M 100.678 #### [facility] [address] [place], [address] Hematocrit (Bld) [Volume fraction] 49.2 % Normal 40-54 [facility] Comment on above: Performed By: #### M 100.678 #### [facility] [address] [place], [address] Hemoglobin (Bld) [Mass/Vol] 16.9 g/dL High 13.0-16.5 [facility] Comment on above: Performed By: #### M 100.678 #### [facility] [address] [place], [address] IG% 0.400 Normal 0.0-0.9 [facility] Comment on above: Result Comment: IG% - Immature Granulocytes (promyelocytes, myelocytes and metamyelocytes) > 1% indicates that a LEFT SHIFT is Present. Performed By: #### M 100.678 #### [facility] [address] [place], [address] Lymphocytes/100 WBC (Bld) 4.8 % Low 19-41 [facility] Comment on above: Performed By: #### M 100.678 #### [facility] [address] [place], [address] MCH (RBC) [Entitic mass] 32.7 pg High 27.0-32.0 [facility] Comment on above: Performed By: #### M 100.678 #### [facility] [address] [place], [address] MCHC (RBC) [Mass/Vol] 34.3 g/dL Normal 32-36 [facility] Comment on above: Performed By: #### M 100.678 #### [facility] [address] [place], [address] MCV (RBC) [Entitic vol] 95.2 fL High 80-94 [facility] Comment on above: Performed By: #### M 100.678 #### [facility] [address] [place], [address] Monocytes/100 WBC (Bld) 5.5 % Normal 0-10 [facility] Comment on above: Performed By: #### M 100.678 #### [facility] [address] [place], [address] Neutrophils/100 WBC (Bld) 89.1 % High 47-70 [facility] Comment on above: Performed By: #### M 100.678 #### [facility] [address] [place], [address] Nucleated RBC (Bld) [#/Vol] 0 10*3/uL Normal 0-5 [facility] Comment on above: Performed By: #### M 100.678 #### [facility] [address] [place], [address] Platelet mean volume (Bld) [Entitic vol] 8.8 fL Normal 6.2-12.0 [facility] Comment on above: Performed By: #### M 100.678 #### [facility] [address] [place], [address] Platelets (Bld) [#/Vol] 263 10*3/uL Normal 150-450 [facility] Comment on above: Performed By: #### M 100.678 #### [facility] [address] [place], [address] RBC (Bld) [#/Vol] 5.17 10*6/uL Normal 4.6-6.2 [facility] Comment on above: Performed By: #### M 100.678 #### [facility] [address] [place], [address] RDW SD 49.3 fl High 35.1-43.9 [facility] Comment on above: Performed By: #### M 100.678 #### [facility] [address] [place], [address] WBC (Bld) [#/Vol] 13.4 10*3/uL High 4.4-11.0 [facility] Comment on above: Performed By: #### M 100.678 #### [facility] [address] [place], [address] Carbon dioxide, total [Moles /volume] in Central venous bloodOrdered By: Otf Jefferson on 07-13-2024 CO2 [Moles/Vol] 23.2 mmol/L 21.0-32.0 [facility] Chest 1 View (Portable)on Chest 1 View (Portable) [facility] Imaging Services [address] [place] [address] Chest 1 View (Portable) MR#: [id number] Acct: [id number] Name: CRISTINA JEFFREY Rep #: [id number] : 1945 M 79 From: Moises España MD PCP: Dr. Clifton Del Valle MD Status: REG ER Study: Chest 1 View (Portable) Date of Exam: 07/13/24 Exam# [id number] Ordering Dr: Otf Jefferson MD PROCEDURE: CHEST [...] inflammatory/infectious process, correlate for pneumonia. Reading Location: [facility] CC: Dr. Otf Jefferson MD; Dr. Clifton Del Valle MD Conflicts Analyst: Signed Normal [facility] Chloride assayOrdered By: Saritha Jefferson on 07-13-2024 Chloride [Moles/Vol] 101 mmol/L 98-108 [facility] Echo Completeon 07-13-2024 Echo Complete [facility] [address] [place] [address] Echo Complete 07/13/24 1102 MR#: [id number] Acct: [id number] Name: CRISITNA JEFFREY Rep #: [id number] : 1945 79 From: Pete Garner MD [...] Dictated: 07/13/24 1102 Date Transcribed: 07/13/24 1228 Conflicts Analyst: Signed Normal [facility] Echocardiogram study reportO rdered By: Pete Garner on 07-13-2024 Study report [facility] [address] [place] [address] Echo Complete 07/13/24 1102 MR#: [id number] Acct: [id number] Name: CRISTINA JEFFREY Rep #:[id number] : 1945 79 From: Pete Conner Attending Dr: Dr. Bertin Wolff DO Status: ADM IN Ordering Dr: Bertin Wolff DO Date: 07/13/24 Location: [facility] Sex: M C Admitted: 07/13/24 Reason [...] Dictated: 07/13/24 1102 Date Transcribed: 07/13/24 1228 Conflicts Analyst: Signed [facility] Work Phone: Emergency Department Summary on 07-13-2024 Emergency Department Summary [facility] Medical Records Department [address] [place] [address] Emergency Department Summary 07/13/24 MR#: [id number] Acct: [id number] Name: CRISTINA JEFFREY Rep #: [id number] : 1945 79 From: Otf Jefferson MD PCP: Dr. Clifton Del Valle MD Status:ADM IN Location: [address] History of Present Illness Chief Complaint: [...] with chills and a cough as well. [facility] Medical History Diastolic CHF, chronic Atrial fibrillation Prostate cancer Chronic gastric ulcer Atherosclerosis of coronary artery of [place] heart without angina pectoris Essential hypertension PAF [...] QHS cholesterol 01/25/19 01/24/19 18:00 History vitamins A,C,M-ykqn-wlxkur 4,296 1 ea PO BID supplement 01/25/19 [...] Temperature S (more content not included)... Normal [facility] Eosinophil percentageOrdered By: Otf Jefferson on 07-13-2024 Eosinophils/100 WBC (Bld) 0.1 % 0-5 [facility] Erythrocyte distribution wid th ratioOrdered By: Otf Jefferson on 07-13-2024 Erythrocyte distribution width (RBC) [Ratio] 14.2 % 11.6-14.6 [facility] Erythrocyte distribution wid th standard deviationOrdered By: Otf Jefferson on 07-13-2024 Erythrocyte distribution width (RBC) [Entitic vol] 49.3 fL High 35.1-43.9 [facility] Estimation of creatinine marvel aranceOrdered By: Otf Jefferson on 07-13-2024 Estimated Creatinine Clearance Calc 63.60 ml/min 50-250 [facility] GFR/1.73 sq M.predicted erlinda g non-blacks MDRD (S/P/Bld) [Vol rate/Area]Ordered By: Otf Jefferson on 07-13-2024 Estimated GFR (MDRD) Non-Af Amer 68 >60 [facility] Comment on above: mL/min/1.73m2 CKD-EP I Creatinine Equation (2020) H AND P Exam - [facility] 07-13-2024 H&P Exam - Hospitalist [facility] Medical Records Department [address] [place] [address] H P Exam - Hospitalist 07/13/24 1019 MR#: [id number] Acct: [id number] Name: CRISTINA JEFFREY Rep #: [id number] : 1945 79 From: Bertin Wolff DO PCP: Dr. Clifton Del Valle MD Status:ADM IN Location: U [id number] HPI - General General Date of Admission: 07/13/24 Date of Service: 07/13/24 Chief Complaint: Chills, shortness of breath HPI Narrative CRISTINA JEFFREY, is a 79 M who presents to the emergency room at [facility] with complaints of chills and shortness of [...] PCU, IV Rocephin and Zithromax was given. [facility] Medical History Diastolic CHF, chronic Atrial fibrillation Prostate cancer Chronic gastric ulcer Atherosclerosis of coronary artery of [place] heart without angina pectoris Essential hypertension PAF [...] QHS cholesterol 01/25/19 01/24/19 18:00 History vitamins A,C,K-lmki-ujkubx 4,296 1 ea PO BID supplement 01/25/19 [...] swelling, myalgias (more content not included)... Normal [facility] Hematocrit Auto (Bld) [Volum e fraction]Ordered By: Otf Jefferson on 07-13-2024 Hematocrit (Bld) [Volume fraction] 49.2 % 40-54 [facility] Hemoglobin measurementOrdere d By: Otf Jefferson on 07-13-2024 Hemoglobin (Bld) [Mass/Vol] 16.9 g/dL High 13.0-16.5 [facility] Immature granulocytes/100 WB C Auto (Bld)Ordered By: Otf Jefferson on 07-13-2024 Immature granulocytes/100 WBC (Bld) 0.400 % 0.0-0.9 [facility] Comment on above: IG% - Immature Granu locytes (promyelocytes, myelocytes and metamyelocytes) > 1% indicates that a LEFT SHIFT is Present. Influenza virus A and B and SARS-CoV-2 (COVID-19) and Respiratory syncytial virus RNAOrdered By: Otf Jefferson on 07-13-2024 SARS-CoV-2 (COVID-19) RNA ADELSO+probe Ql (Unsp spec) [facility] L. pneumophila Ag Ql (U)Orde red By: Bertin Wolff on 07-13-2024 Legionella Antigen [facility] L503.7505on 07-13-2024 Natriuretic peptide B (Bld) [Mass/Vol] 940 pg/mL Normal <=1800 [facility] Comment on above: Result Comment: Hear t Failure Unlikely: < 300 pg/mL Heart Failure Likely < 50 Years: > 450 pg/mL 50-75 Years: > 900 pg/mL >75 Years: > 1800 pg/mL Performed By: #### L 503.7505, L501.5200 #### [facility] [address] [place], [place], [id number] Laboratory - Chemistry and C hemistry - challengeOrdered By: Otf Jefferson on 07-13-2024 Natriuretic peptide B (Bld) [Mass/Vol] 940 pg/mL <1800 [facility] Comment on above: Heart Failure Unlike ly: [...] Ag, Urine Negative (See interpretation below) Normal [facility] Comment on above: Performed By: #### M 200.1000 #### [facility] [address] [place], [address] Lymphocytes Auto (Unsp spec) [#/Vol]Ordered By: Otf Jefferson on 07-13-2024 Lymphocytes (Bld) [#/Vol] 0.65 10*3/uL Low 0.83-4.51 [facility] Lymphocytes/100 WBC Auto (Un sp spec)Ordered By: Otf Jefferson on 07-13-2024 Lymphocytes/100 WBC (Bld) 4.8 % Low 19-41 [facility] M100.678on 07-13-2024 M100.678 Normal Reference Ran ge = Negative GeneXpert Instrument, PCR method SARS-CoV-2 (COVID 19) Negative INFLUENZA A Negative INFLUENZA B Negative RSV PCR Negative Normal [facility] Comment on above: Performed By: #### M 100.678 #### [facility] [address] [place], [address] MCV (mean corpuscular volume ) determinationOrdered By: Otf Jefferson on 07-13-2024 MCV (RBC) [Entitic vol] 95.2 fL High 80-94 [facility] Magnesiumon 07-13-2024 Magnesium [Mass/Vol] 1.8 mg/dL Normal 1.5-2.2 [facility] Comment on above: Performed By: #### L 503.7505, L501.5200 #### [facility] [address] [place], [place], [id number] Magnesium (Unsp spec) [Mass/ Vol]Ordered By: Otf Jefferson on 07-13-2024 Magnesium [Mass/Vol] 1.8 mg/dL 1.5-2.2 [facility] Magnesium measurement (mass/ volume)Ordered By: Otf Jefferson on 07-13-2024 Magnesium (Unsp spec) [Mass/Vol] 1.8 mg/dL 1.5-2.2 [facility] Mean corpuscular hemoglobin (MCH) determinationOrdered By: Otf Jefferson on 07-13-2024 MCH (RBC) [Entitic mass] 32.7 pg High 27.0-32.0 [facility] Mean corpuscular hemoglobin concentration (MCHC) determinationOrdered By: Otf Jefferson on 07-13-2024 MCHC (RBC) [Mass/Vol] 34.3 g/dL 32-36 [facility] Mean platelet volume determi nationOrdered By: Otf Jefferson on 07-13-2024 Platelet mean volume (Bld) [Entitic vol] 8.8 fL 6.2-12.0 [facility] Monocyte percentageOrdered B y: Otf Jefferson on 07-13-2024 Monocytes/100 WBC (Bld) 5.5 % 0-10 [facility] Neutrophil percentageOrdered By: Otf Jefferson on 07-13-2024 Neutrophils/100 WBC (Bld) 89.1 % High 47-70 [facility] Nucleated red blood cell per centageOrdered By: Otf Jefferson on 07-13-2024 Nucleated RBC/100 WBC (Bld) [Ratio] 0 % 0-5 [facility] Platelet countOrdered By: Saritha Jefferson on 07-13-2024 Platelets (Bld) [#/Vol] 263 10*3/uL 150-450 [facility] Potassium (Unsp spec) [Mass/ Vol]Ordered By: Otf Jefferson on 07-13-2024 Potassium [Moles/Vol] 4.6 mmol/L 3.3-5.1 [facility] RBC Auto (Bld) [#/Vol]Ordere d By: Otf Jefferson on 07-13-2024 RBC (Bld) [#/Vol] 5.17 10*6/uL 4.6-6.2 [facility] Serum creatinine measurement (mass/volume)Ordered By: Otf Jefferson on 07-13-2024 Creatinine [Mass/Vol] 1.10 mg/dL 0.70-1.20 [facility] Serum glucose measurement (m ass/volume)Ordered By: Otf Jefferson on 07-13-2024 Glucose [Mass/Vol] 122 mg/dL High 70-99 [facility] Serum or plasma calcium jean urement (mass/volume)Ordered By: Otf Jefferson on 07-13-2024 Calcium [Mass/Vol] 9.0 mg/dL 7.6-11.0 [facility] Serum or plasma urea nitroge n measurement (mass/volume)Ordered By: Otf Jefferson on 07-13-2024 Urea nitrogen [Mass/Vol] 14 mg/dL 4-19 [facility] Sodium levelOrdered By: Otf Jefferson on 07-13-2024 Sodium [Moles/Vol] 137 mmol/L 133-145 [facility] Strep pneumoniae Antig(UR,CS F)on 03-22-2025 STPAG URINE INTERPRETATION Strep pneumoniae Antig(UR,CSF) Negative Urine Presumptive negative for pneumococcal pneumonia, suggesting no current or recent pneumococcal infection. Infection due to S pneumoniae cannot be ruled out since the antigen present in the sample may be below the detection limit of the test. Strep pneumo Test Negative URINE (See interpretation below) Normal [facility] Comment on above: Performed By: #### M 200.1000 #### [facility] [address] [place], [address] Streptococcus pneumoniae ant igen assayOrdered By: Bertin Wolff on 07-13-2024 Streptococcus pneumoniae Antigen (M [facility] Urine Legionella pneumophila antigen detectionOrdered By: Bertin Wolff on 07-13-2024 L. pneumophila Ag Ql (U) [facility] White blood cell (WBC) count Ordered By: Otf Jefferson on 07-13-2024 WBC (Bld) [#/Vol] 13.4 10*3/uL High 4.4-11.0 [facility] Cardiology Visit Reporton Cardiology Visit Report [facility] [place] [facility] [address] [place] [address] OFFICE VISIT Date of Service: 07/02/24 MR#: [id number] Acct: [id number] Name: CRISTINA JEFFREY Rep #: [id number] : 1945 Provider: VENKAT Zamora Age/Sex: 79/M Location[facility] Status: Signed HPI HPI History of Present [...] 97 Intake Visit Reasons: 1 Y FU [employer] Required: No Is patient in pain?: No [...] PO QHS cholesterol 01/25/19 07/02/24 History vitamins A,C,N-aekz-jekppo 4,296 1 ea PO BID supplement 01/25/19 [...] medication list, patient does not know medications. [facility] Medical History Diastolic CHF, chronic Atrial fibrillation Prostate cancer Chronic gastric ulcer Atherosclerosis of coronary artery of [place] heart without angina pectoris Essential hypertension PAF [...] heartburn, bright (more content not included)... Normal [facility] CBC W/Diff, Automatedon 11-0 Absolute Lymph 2.19 X10 3/uL Normal 0.83-4.51 [facility] Comment on above: Performed By: #### L 500.4050, L501.9520, L506.1000, L100.0100, L500.4100 #### [facility] [address] [place], [address] Absolute Neut 4.6 X10 3/uL Normal 2.0-7.7 [facility] Comment on above: Performed By: #### L 500.4050, L501.9520, L506.1000, L100.0100, L500.4100 #### [facility] [address] [place], [address] Basophils/100 WBC (Bld) 0.6 % Normal 0-1 [facility] Comment on above: Performed By: #### L 500.4050, L501.9520, L506.1000, L100.0100, L500.4100 #### [facility] [address] [place], [address] Eosinophils/100 WBC (Bld) 1.0 % Normal 0-5 [facility] Comment on above: Performed By: #### L 500.4050, L501.9520, L506.1000, L100.0100, L500.4100 #### [facility] [address] [place], [address] Erythrocyte distribution width (RBC) [Ratio] 14.1 % Normal 11.6-14.6 [facility] Comment on above: Performed By: #### L 500.4050, L501.9520, L506.1000, L100.0100, L500.4100 #### [facility] [address] [place], [address] Hematocrit (Bld) [Volume fraction] 48.6 % Normal 40-54 [facility] Comment on above: Performed By: #### L 500.4050, L501.9520, L506.1000, L100.0100, L500.4100 #### [facility] [address] [place], [address] Hemoglobin (Bld) [Mass/Vol] 16.3 g/dL Normal 13.0-16.5 [facility] Comment on above: Performed By: #### L 500.4050, L501.9520, L506.1000, L100.0100, L500.4100 #### [facility] [address] [place], [address] IG% 0.500 Normal 0.0-0.9 [facility] Comment on above: Result Comment: IG% - Immature Granulocytes (promyelocytes, myelocytes and metamyelocytes) > 1% indicates that a LEFT SHIFT is Present. Performed By: #### L 500.4050, L501.9520, L506.1000, L100.0100, L500.4100 #### [facility] [address] [place], [address] Lymphocytes/100 WBC (Bld) 27.9 % Normal 19-41 [facility] Comment on above: Performed By: #### L 500.4050, L501.9520, L506.1000, L100.0100, L500.4100 #### [facility] [address] [place], [address] MCH (RBC) [Entitic mass] 32.4 pg High 27.0-32.0 [facility] Comment on above: Performed By: #### L 500.4050, L501.9520, L506.1000, L100.0100, L500.4100 #### [facility] [address] [place], [address] MCHC (RBC) [Mass/Vol] 33.5 g/dL Normal 32-36 [facility] Comment on above: Performed By: #### L 500.4050, L501.9520, L506.1000, L100.0100, L500.4100 #### [facility] [address] [place], [address] MCV (RBC) [Entitic vol] 96.6 fL High 80-94 [facility] Comment on above: Performed By: #### L 500.4050, L501.9520, L506.1000, L100.0100, L500.4100 #### [facility] [address] [place], [address] Monocytes/100 WBC (Bld) 10.8 % High 0-10 [facility] Comment on above: Performed By: #### L 500.4050, L501.9520, L506.1000, L100.0100, L500.4100 #### [facility] [address] [place], [address] Neutrophils/100 WBC (Bld) 59.2 % Normal 47-70 [facility] Comment on above: Performed By: #### L 500.4050, L501.9520, L506.1000, L100.0100, L500.4100 #### [facility] [address] [place], [address] Nucleated RBC (Bld) [#/Vol] 0 10*3/uL Normal 0-5 [facility] Comment on above: Performed By: #### L 500.4050, L501.9520, L506.1000, L100.0100, L500.4100 #### [facility] [address] [place], [address] Platelet mean volume (Bld) [Entitic vol] 9.0 fL Normal 6.2-12.0 [facility] Comment on above: Performed By: #### L 500.4050, L501.9520, L506.1000, L100.0100, L500.4100 #### [facility] [address] [place], [address] Platelets (Bld) [#/Vol] 268 10*3/uL Normal 150-450 [facility] Comment on above: Performed By: #### L 500.4050, L501.9520, L506.1000, L100.0100, L500.4100 #### [facility] [address] [place], [address] RBC (Bld) [#/Vol] 5.03 10*6/uL Normal 4.6-6.2 [facility] Comment on above: Performed By: #### L 500.4050, L501.9520, L506.1000, L100.0100, L500.4100 #### [facility] [address] [place], [address] RDW SD 50.2 fl High 35.1-43.9 [facility] Comment on above: Performed By: #### L 500.4050, L501.9520, L506.1000, L100.0100, L500.4100 #### [facility] [address] [place], [address] WBC (Bld) [#/Vol] 7.9 10*3/uL Normal 4.4-11.0 [facility] Comment on above: Performed By: #### L 500.4050, L501.9520, L506.1000, L100.0100, L500.4100 #### [facility] [address] [place], [address] Comprehensive Metabolic Prof [facility] 02-27-2024 Albumin [Mass/Vol] 3.5 g/dL Normal 3.2-5.0 [facility] Comment on above: Performed By: #### L [id number], L501.9520, L506.1000, L100.0100, L500.4100 #### [facility] [address] [place], [address] Albumin/Globulin [Mass ratio] 1.1 {ratio} Normal 0.9-2.4 [facility] Comment on above: Performed By: #### L [id number], [id number], L506.1000, L100.0100, L500.4100 #### [facility] [address] [place], [address] ALK P 75 U/L Normal 45-117 [facility] Comment on above: Performed By: #### L 500.4050, [id number], L506.1000, L100.0100, L500.4100 #### [facility] [address] [place], [address] ALT [Catalytic activity/Vol] 49 U/L Normal 16-61 [facility] Comment on above: Performed By: #### L 500.4050, [id number], L506.1000, L100.0100, L500.4100 #### [facility] [address] [place], [address] AST [Catalytic activity/Vol] 33 U/L Normal 15-37 [facility] Comment on above: Result Comment: Mode rate Hemolysis, Result may be falsely increased. Performed By: #### L 500.4050, L501.9520, L506.1000, L100.0100, L500.4100 #### [facility] [address] [place], [address] Bilirubin [Mass/Vol] 0.70 mg/dL Normal 0.20-1.00 [facility] Comment on above: Result Comment: For patients on eltrombopag therapy, use of Dimension Dumont TBIL is not recommended. Performed By: #### L 500.4050, [id number], L506.1000, L100.0100, L500.4100 #### [facility] [address] [place], [address] BUN/CRE 11.8 RATIO Normal 10-20 [facility] Comment on above: Performed By: #### L 500.4050, [id number], L506.1000, L100.0100, L500.4100 #### [facility] [address] [place], [address] CA,Total 8.8 mg/dL Normal 8.5-10.1 [facility] Comment on above: Performed By: #### L 500.4050, [id number], L506.1000, L100.0100, L500.4100 #### [facility] [address] [place], [address] Chloride [Moles/Vol] 106 mmol/L Normal 98-107 [facility] Comment on above: Performed By: #### L 500.4050, [id number], L506.1000, L100.0100, L500.4100 #### [facility] [address] [place], [address] CO2 [Moles/Vol] 27.0 mmol/L Normal 21.0-32.0 [facility] Comment on above: Performed By: #### L 500.4050, [id number], L506.1000, L100.0100, L500.4100 #### [facility] [address] [place], [address] Creatinine [Mass/Vol] 1.10 mg/dL Normal 0.70-1.30 [facility] Comment on above: Result Comment: The validity of the calculated GFR GFRAA in patients over 70 years has not been determined. Clinical correlation is essential. Performed By: #### L 500.4050, [id number], L506.1000, L100.0100, L500.4100 #### [facility] [address] [place], [address] EST GFR - AA 83 mL/min Normal >60 [facility] Comment on above: Result Comment: Afri can Jamaican GFR Calc Performed By: #### L 500.4050, [id number], L506.1000, L100.0100, L500.4100 #### [facility] [address] [place], [address] GAP 5 Normal 5-15 [facility] Comment on above: Performed By: #### L 500.4050, [id number], L506.1000, L100.0100, L500.4100 #### [facility] [address] [place], [address] GFR/1.73 sq M.predicted among non-blacks MDRD (S/P/Bld) [Vol rate/Area] 69 mL/min/{1.73_m2} Normal >60 [facility] Comment on above: Result Comment: Non- GFR Calc Performed By: #### L 500.4050, [id number], L506.1000, L100.0100, L500.4100 #### [facility] [address] [place], [address] Globulin (S) [Mass/Vol] 3.3 g/dL Normal 2.2-4.2 [facility] Comment on above: Performed By: #### L 500.4050, [id number], L506.1000, L100.0100, L500.4100 #### [facility] [address] [place], [address] Glucose [Mass/Vol] 118 mg/dL High 74-106 [facility] Comment on above: Result Comment: Fast ing Glucose result from 100 to 125 mg/dL suggests IMPAIRED HOMEOSTASIS per A.D.A. criteria. Performed By: #### L 500.4050, [id number], L506.1000, L100.0100, L500.4100 #### [facility] [address] [place], [address] Potassium [Moles/Vol] 4.6 mmol/L Normal 3.5-5.1 [facility] Comment on above: Result Comment: Mode rate Hemolysis, Result may be falsely increased. Performed By: #### L 500.4050, [id number], L506.1000, L100.0100, L500.4100 #### [facility] [address] [place], [address] Sodium [Moles/Vol] 138 mmol/L Normal 136-145 [facility] Comment on above: Performed By: #### L 500.4050, [id number], L506.1000, L100.0100, L500.4100 #### [facility] [address] [place], [address] T PROT 6.8 g/dL Normal 6.4-8.2 [facility] Comment on above: Performed By: #### L 500.4050, [id number], L506.1000, L100.0100, L500.4100 #### [facility] [address] [place], [address] Urea nitrogen [Mass/Vol] 13 mg/dL Normal 7-18 [facility] Comment on above: Performed By: #### L 500.4050, [id number], L506.1000, L100.0100, L500.4100 #### [facility] [address] [place], [address] Lipid Profileon 02-27-2024 Cholesterol [Mass/Vol] 98 mg/dL Normal 200 [facility] Comment on above: Result Comment: <200 mg/dL Desirable 200-240 mg/dL Borderline >240 mg/dL High Risk Performed By: #### L 500.4050, [id number], L506.1000, L100.0100, L500.4100 #### [facility] [address] [place], [address] Cholesterol in HDL [Mass/Vol] 44 mg/dL Normal [facility] Comment on above: Result Comment: The drugs N-Acetylcysteine and Metamizole may falsely depress this assay. Reference Range HDL <40 mg/dL Low HDL Cholesterol HDL >or= 60 mg/dL High HDL Cholesterol Performed By: #### L 500.4050, [id number], L506.1000, L100.0100, L500.4100 #### [facility] [address] [place], [address] Cholesterol in LDL [Mass/Vol] 35 mg/dL Normal 0-130 [facility] Comment on above: Performed By: #### L 500.4050, [id number], L506.1000, L100.0100, L500.4100 #### [facility] [address] [place], [address] Cholesterol in VLDL [Mass/Vol] 19 mg/dL Normal 5-40 [facility] Comment on above: Performed By: #### L 500.4050, [id number], L506.1000, L100.0100, L500.4100 #### [facility] [address] [place], [address] Triglyceride [Mass/Vol] 96 mg/dL Normal [facility] Comment on above: Result Comment: The drugs N-Acetylcysteine and Metamizole may falsely depress this assay. Serum Triglycerides Reference Interval Normal <150 mg/dL Borderline high 150 - 199 mg/dL High 200 - 499 mg/dL Very High > or = 500 mg/dL Performed By: #### L 500.4050, [id number], L506.1000, L100.0100, L500.4100 #### [facility] [address] [place], [address] Thyroid Stim Hormone (TSH)on 02-27-2024 TSH 2.230 uIU/mL Normal 0.358-3.74 0 [facility] Comment on above: Performed By: #### L 500.4050, [id number], L506.1000, L100.0100, L500.4100 #### [facility] [address] [place], [address] Vitamin D,25 Hydroxyon 02-26 Vitamin D 25-OH 37.5 ng/mL Normal [facility] Comment on above: Result Comment: Jazmín min D 25(OH) Status Range Deficiency <20 ng/mL (50nmol/L) Insufficiency 20 - 30 ng/mL (50 - 75 nmol/L) Sufficiency 30 - 100 ng/mL (75 - 250 nmol/L) Toxicity >100 ng/mL (>250 nmol/L) Performed By: #### M [id number] #### [facility] [place], [address] Absolute lymphocyte countOrd ered By: Clifton Del Valle on 02-28-2023 Lymphocytes Auto (Unsp spec) [#/Vol] 2.07 10*3/uL 0.83-4.51 [facility] Basophil percentageOrdered B y: Clifton Del Valle on 02-28-2023 Basophils/100 WBC (Bld) 0.6 % 0-1 [facility] Bilirubin [Mass/Vol] 0.60 mg/dL 0.20-1.00 [facility] Comment on above: For patients on eltr ombopag therapy, use of Dimension [place] TBIL is not recommended. Chloride [Moles/Vol] 104 mmol/L 98-107 [facility] Cholesterol [Mass/Vol] 93 mg/dL <200 [facility] Comment on above: <200 mg/dL Desirable 200-240 mg/dL Borderline >240 mg/dL High Risk Eosinophils/100 WBC (Bld) 0.9 % 0-5 [facility] Glucose [Mass/Vol] 104 mg/dL 74-106 [facility] Comment on above: Fasting Glucose resu lt from 100 to 125 mg/dL suggests IMPAIRED HOMEOSTASIS per A.D.A. criteria. Neutrophils (Bld) [#/Vol] 5.1 10*3/uL 2.0-7.7 [facility] Neutrophils/100 WBC (Bld) 62.5 % 47-70 [facility] Potassium [Moles/Vol] 4.5 mmol/L 3.5-5.1 [facility] Protein [Mass/Vol] 7.2 g/dL 6.4-8.2 [facility] Sodium [Moles/Vol] 139 mmol/L 136-145 [facility] Triglyceride [Mass/Vol] 67 mg/dL <199 [facility] Comment on above: The drugs N-Acetylcy steine and Metamizole may falsely depress this assay.Serum Triglycerides Reference Interval Normal <150 mg/dL Borderline high 150 - 199 mg/dL High 200 - 499 mg/dL Very High > or = 500 mg/dL WBC (Bld) [#/Vol] 8.1 10*3/uL 4.4-11.0 [facility] Blood erythrocytes count (nu mber/volume)Ordered By: Clifton Del Valle on 02-28-2023 RBC (Bld) [#/Vol] 4.73 10*6/uL 4.6-6.2 [facility] Blood hemoglobin measurement (mass/volume)Ordered By: Clifton Del Valle on 02-28-2023 Hemoglobin (Bld) [Mass/Vol] 14.5 g/dL 13.0-16.5 [facility] Blood lymphocytes/100 leukoc ytesOrdered By: Clifton Del Valle on 02-28-2023 Lymphocytes/100 WBC (Bld) 25.4 % 19-41 [facility] Blood monocytes/100 leukocyt esOrdered By: Clifton Del Valle on 02-28-2023 Monocytes/100 WBC (Bld) 10.1 % 0-10 [facility] Blood platelet mean volumeOr dered By: Clifton Del Valle on 02-28-2023 Platelet mean volume (Bld) [Entitic vol] 9.5 fL 6.2-12.0 [facility] Determination of erythrocyte mean corpuscular volume (MCV)Ordered By: Clifton Del Valle on 02-28-2023 MCV (RBC) [Entitic vol] 96.8 fL 80-94 [facility] Hematocrit Auto (Bld) [Volum e fraction]Ordered By: Clifton Del Valle on 02-28-2023 Hematocrit (Bld) [Volume fraction] 45.8 % 40-54 [facility] - Chemistry and C hemistry - challengeOrdered By: Clifton Del Valle on 02-28-2023 ALP [Catalytic activity/Vol] 96 U/L 45-117 [facility] ALT [Catalytic activity/Vol] 36 U/L 16-61 [facility] CO2 [Moles/Vol] 30.0 mmol/L 21.0-32.0 [facility] Globulin (S) [Mass/Vol] 3.3 g/dL 2.2-4.2 [facility] Urea nitrogen/Creatinine [Mass ratio] 16.8 mg/mg 10-20 [facility] - Hematology and Cell countsOrdered By: Clifton Del Valle on 02-28-2023 Erythrocyte distribution width (RBC) [Entitic vol] 54.6 fL 35.1-43.9 [facility] Erythrocyte distribution width (RBC) [Ratio] 15.2 % 11.6-14.6 [facility] Immature granulocytes/100 WBC (Bld) 0.500 % 0.0-0.9 [facility] Comment on above: IG% - Immature Granu locytes (promyelocytes, myelocytes and metamyelocytes) > 1% indicates that a LEFT SHIFT is Present. MCH (RBC) [Entitic mass] 30.7 pg 27.0-32.0 [facility] Nucleated RBC/100 WBC (Bld) [Ratio] 0 % 0-5 [facility] MCHC Auto (RBC) [Mass/Vol]Or dered By: Clifton Del Valle on 02-28-2023 MCHC (RBC) [Mass/Vol] 31.7 g/dL 32-36 [facility] No Panel InformationOrdered By: Clifton Del Valle on 02-28-2023 Estimated GFR (MDRD) Amer 86 mL/min >60 [facility] Comment on above: GFR Calc Estimated GFR (MDRD) Non-Af Amer 71 mL/min >60 [facility] Comment on above: Non- GFR Calc Thyroid Stimulating Hormone (TSH) 2.05 uIU/mL 0.358-3.74 [facility] Vitamin D 25-Hydroxy 71.4 ng/mL [facility] Comment on above: Vitamin D 25(OH) Sta tus Range Deficiency <20 ng/mL (50nmol/L) Insufficiency 20 - 30 ng/mL (50 - 75 nmol/L) Sufficiency 30 - 100 ng/mL (75 - 250 nmol/L) Toxicity >100 ng/mL (>250 nmol/L) Platelets bldOrdered By: Clifton Del Valle on 02-28-2023 Platelets (Bld) [#/Vol] 335 10*3/uL 150-450 [facility] Serum or plasma albumin jean urement (mass/volume)Ordered By: Clifton Del Valle on 02-28-2023 Albumin [Mass/Vol] 3.9 g/dL 3.2-5.0 [facility] Serum or plasma albumin/glob ulin mass ratioOrdered By: Clifton Del Valle on 02-28-2023 Albumin/Globulin [Mass ratio] 1.2 {ratio} 0.9-2.4 [facility] Serum or plasma calcium jean urement (mass/volume)Ordered By: Clifton Del Valle 02-28-2023 Calcium [Mass/Vol] 9.2 mg/dL 8.5-10.1 [facility] Serum or plasma cholesterol in HDL measurement (mass/volume)Ordered By: Clifton Del Valle 02-28-2023 Cholesterol in HDL [Mass/Vol] 37 mg/dL >40 [facility] Comment on above: The drugs N-Acetylcy steine and Metamizole may falsely depress this assay. Reference Range HDL <40 mg/dL Low HDL Cholesterol HDL >or= 60 mg/dL High HDL Cholesterol Serum or plasma cholesterol in VLDL measurement (mass/volume)Ordered By: Clifton Del Valle 02-28-2023 Cholesterol in VLDL [Mass/Vol] 13 mg/dL 5-40 [facility] Serum or plasma creatinine m easurement (mass/volume)Ordered By: Clifton Del Valle 02-28-2023 Creatinine [Mass/Vol] 1.07 mg/dL 0.70-1.30 [facility] Comment on above: The validity of the calculated GFR & GFRAA in patients over 70 years has not been determined. Clinical correlation is essential. Serum or plasma low density lipoprotein (LDL) cholesterol measurement (mass/volume)Ordered By: Clifton Del Valle 02-28-2023 Cholesterol in LDL [Mass/Vol] 43 mg/dL 0-130 [facility] Serum or plasma urea nitroge n measurement (mass/volume)Ordered By: Clifton Del Valle 02-28-2023 Urea nitrogen [Mass/Vol] 18 mg/dL 7-18 [facility] Thin prep Papanicolaou smear with manual screeningOrdered By: Clifton Del Valle 02-28-2023 Thin prep Papanicolaou smear with manual screening 17 U/L 15-37 [facility] Thin prep Papanicolaou smear with manual screening 5 5-15 [facility] Absolute lymphocyte countOrd ered By: Dr. Del Valle on 08-30-2022 Lymphocytes Auto (Unsp spec) [#/Vol] 2.46 10*3/uL 0.83-4.51 [facility] Basophil percentageOrdered B y: Dr. Del Valle on 08-30-2022 Basophils/100 WBC (Bld) 0.5 % 0-1 [facility] Bilirubin [Mass/Vol] 0.70 mg/dL 0.20-1.00 [facility] Comment on above: For patients on eltr ombopag therapy, use of Dimension [place] TBIL is not recommended. Chloride [Moles/Vol] 107 mmol/L 98-107 [facility] Eosinophils/100 WBC (Bld) 1.6 % 0-5 [facility] Glucose [Mass/Vol] 93 mg/dL 74-106 [facility] Neutrophils (Bld) [#/Vol] 4.6 10*3/uL 2.0-7.7 [facility] Neutrophils/100 WBC (Bld) 56.8 % 47-70 [facility] Potassium [Moles/Vol] 4.1 mmol/L 3.5-5.1 [facility] Protein [Mass/Vol] 7.2 g/dL 6.4-8.2 [facility] Sodium [Moles/Vol] 138 mmol/L 136-145 [facility] WBC (Bld) [#/Vol] 8.2 10*3/uL 4.4-11.0 [facility] Blood erythrocytes count (nu mber/volume)Ordered By: Dr. Del Valle on 08-30-2022 RBC (Bld) [#/Vol] 4.94 10*6/uL 4.6-6.2 [facility] Blood hemoglobin measurement (mass/volume)Ordered By: Dr. Del Valle on 08-30-2022 Hemoglobin (Bld) [Mass/Vol] 15.6 g/dL 13.0-16.5 [facility] Blood lymphocytes/100 leukoc ytesOrdered By: Dr. Del Valle on 08-30-2022 Lymphocytes/100 WBC (Bld) 30.1 % 19-41 [facility] Blood monocytes/100 leukocyt esOrdered By: Dr. Del Valle on 08-30-2022 Monocytes/100 WBC (Bld) 10.3 % 0-10 [facility] Blood platelet mean volumeOr dered By: Dr. Del Valle on 08-30-2022 Platelet mean volume (Bld) [Entitic vol] 9.5 fL 6.2-12.0 [facility] Determination of erythrocyte mean corpuscular volume (MCV)Ordered By: Dr. Del Valle on 08-30-2022 MCV (RBC) [Entitic vol] 95.7 fL 80-94 [facility] Hematocrit Auto (Bld) [Volum e fraction]Ordered By: Dr. Del Valle on 08-30-2022 Hematocrit (Bld) [Volume fraction] 47.3 % 40-54 [facility] - Chemistry and C hemistry - challengeOrdered By: Dr. Del Valle on 08-30-2022 ALP [Catalytic activity/Vol] 84 U/L 45-117 [facility] ALT [Catalytic activity/Vol] 31 U/L 16-61 [facility] CO2 [Moles/Vol] 24.0 mmol/L 21.0-32.0 [facility] Globulin (S) [Mass/Vol] 3.6 g/dL 2.2-4.2 [facility] Urea nitrogen/Creatinine [Mass ratio] 10.8 mg/mg 10-20 [facility] - Hematology and Cell countsOrdered By: Dr. Del Valle on 08-30-2022 Erythrocyte distribution width (RBC) [Entitic vol] 49.3 fL 35.1-43.9 [facility] Erythrocyte distribution width (RBC) [Ratio] 13.9 % 11.6-14.6 [facility] Immature granulocytes/100 WBC (Bld) 0.700 % 0.0-0.9 [facility] Comment on above: IG% - Immature Granu locytes (promyelocytes, myelocytes and metamyelocytes) > 1% indicates that a LEFT SHIFT is Present. MCH (RBC) [Entitic mass] 31.6 pg 27.0-32.0 [facility] Nucleated RBC/100 WBC (Bld) [Ratio] 0 % 0-5 [facility] MCHC Auto (RBC) [Mass/Vol]Or dered By: Dr. Del Valle on 08-30-2022 MCHC (RBC) [Mass/Vol] 33.0 g/dL 32-36 [facility] No Panel InformationOrdered By: Dr. Del Valle on 08-30-2022 Estimated GFR (MDRD) Amer 91 mL/min >60 [facility] Comment on above: GFR Calc Estimated GFR (MDRD) Non-Af Amer 75 mL/min >60 [facility] Comment on above: Non- GFR Calc Thyroid Stimulating Hormone (TSH) 2.33 uIU/mL 0.358-3.74 [facility] Vitamin D 25-Hydroxy 79.6 ng/mL [facility] Comment on above: Vitamin D 25(OH) Sta tus Range Deficiency <20 ng/mL (50nmol/L) Insufficiency 20 - 30 ng/mL (50 - 75 nmol/L) Sufficiency 30 - 100 ng/mL (75 - 250 nmol/L) Toxicity >100 ng/mL (>250 nmol/L) Platelets bldOrdered By: Dr. Del Valle on 08-30-2022 Platelets (Bld) [#/Vol] 307 10*3/uL 150-450 [facility] Serum or plasma albumin jean urement (mass/volume)Ordered By: Dr. Del Valle on 08-30-2022 Albumin [Mass/Vol] 3.6 g/dL 3.2-5.0 [facility] Serum or plasma albumin/glob ulin mass ratioOrdered By: Dr. Del Valle on 08-30-2022 Albumin/Globulin [Mass ratio] 1.0 {ratio} 0.9-2.4 [facility] Serum or plasma calcium jean urement (mass/volume)Ordered By: Dr. Del Valle on 08-30-2022 Calcium [Mass/Vol] 9.2 mg/dL 8.5-10.1 [facility] Serum or plasma creatinine m easurement (mass/volume)Ordered By: Dr. Del Valle on 08-30-2022 Creatinine [Mass/Vol] 1.02 mg/dL 0.70-1.30 [facility] Comment on above: The validity of the calculated GFR & GFRAA in patients over 70 years has not been determined. Clinical correlation is essential. Serum or plasma urea nitroge n measurement (mass/volume)Ordered By: Dr. Del Valle on 08-30-2022 Urea nitrogen [Mass/Vol] 11 mg/dL 7-18 [facility] Thin prep Papanicolaou smear with manual screeningOrdered By: Dr. Del Valle on 08-30-2022 Thin prep Papanicolaou smear with manual screening 20 U/L 15-37 [facility] Thin prep Papanicolaou smear with manual screening 7 5-15 [facility] Absolute lymphocyte counton 03-01-2022 Lymphocytes Auto (Unsp spec) [#/Vol] 2.39 10*3/uL 0.83-4.51 [facility] Work Phone: Basophil percentageon 2021 Basophils/100 WBC (Bld) 0.5 % 0-1 [facility] Work Phone: Bilirubin [Mass/Vol] 0.60 mg/dL 0.20-1.00 [facility] Work Phone: Comment on above: For patients on eltr ombopag therapy, use of Dimension [place] TBIL is not recommended. Chloride [Moles/Vol] 108 mmol/L 98-107 [facility] Work Phone: Eosinophils/100 WBC (Bld) 0.8 % 0-5 [facility] Work Phone: Glucose [Mass/Vol] 88 mg/dL 74-106 [facility] Work Phone: Neutrophils (Bld) [#/Vol] 4.2 10*3/uL 2.0-7.7 [facility] Work Phone: Neutrophils/100 WBC (Bld) 55.9 % 47-70 [facility] Work Phone: Potassium [Moles/Vol] 4.0 mmol/L 3.5-5.1 [facility] Work Phone: Protein [Mass/Vol] 7.5 g/dL 6.4-8.2 [facility] Work Phone: Sodium [Moles/Vol] 138 mmol/L 136-145 [facility] Work Phone: WBC (Bld) [#/Vol] 7.4 10*3/uL 4.4-11.0 [facility] Work Phone: Blood erythrocytes count (nu mber/volume)on 03-01-2022 RBC (Bld) [#/Vol] 4.92 10*6/uL 4.6-6.2 [facility] Work Phone: Blood hemoglobin measurement (mass/volume)on 03-01-2022 Hemoglobin (Bld) [Mass/Vol] 16.1 g/dL 13.0-16.5 [facility] Work Phone: Blood lymphocytes/100 leukoc yteson 03-01-2022 Lymphocytes/100 WBC (Bld) 32.2 % 19-41 [facility] Work Phone: Blood monocytes/100 leukocyt eson 03-01-2022 Monocytes/100 WBC (Bld) 10.2 % 0-10 [facility] Work Phone: Blood platelet mean volumeon 03-01-2022 Platelet mean volume (Bld) [Entitic vol] 10.0 fL 6.2-12.0 [facility] Work Phone: [phone] Determination of erythrocyte mean corpuscular volume (MCV)on 03-01-2022 MCV (RBC) [Entitic vol] 96.7 fL 80-94 [facility] Work Phone: Hematocrit Auto (Bld) [Volum e fraction]on 03-01-2022 Hematocrit (Bld) [Volume fraction] 47.6 % 40-54 [facility] Work Phone: Laboratory - Chemistry and C hemistry - challengeon 03-01-2022 ALP [Catalytic activity/Vol] 79 U/L 45-117 [facility] Work Phone: ALT [Catalytic activity/Vol] 42 U/L 16-61 [facility] Work Phone: CO2 [Moles/Vol] 23.0 mmol/L 21.0-32.0 [facility] Work Phone: Globulin (S) [Mass/Vol] 3.4 g/dL 2.2-4.2 [facility] Work Phone: Urea nitrogen/Creatinine [Mass ratio] 14.4 mg/mg 10-20 [facility] Work Phone: Laboratory - Hematology and Cell countson 03-01-2022 Erythrocyte distribution width (RBC) [Entitic vol] 50.2 fL 35.1-43.9 [facility] Work Phone: Erythrocyte distribution width (RBC) [Ratio] 14.0 % 11.6-14.6 [facility] Work Phone: Immature granulocytes/100 WBC (Bld) 0.400 % 0.0-0.9 [facility] Work Phone: Comment on above: IG% - Immature Granu locytes (promyelocytes, myelocytes and metamyelocytes) > 1% indicates that a LEFT SHIFT is Present. MCH (RBC) [Entitic mass] 32.7 pg 27.0-32.0 [facility] Work Phone: Nucleated RBC/100 WBC (Bld) [Ratio] 0 % 0-5 [facility] Work Phone: MCHC Auto (RBC) [Mass/Vol]on 03-01-2022 MCHC (RBC) [Mass/Vol] 33.8 g/dL 32-36 [facility] Work Phone: No Panel Informationon 03-01 Estimated GFR (MDRD) Amer 96 mL/min >60 [facility] Work Phone: Comment on above: GFR Calc Estimated GFR (MDRD) Non-Af Amer 80 mL/min >60 [facility] Work Phone: Comment on above: Non- GFR Calc Thyroid Stimulating Hormone (TSH) 1.81 uIU/mL 0.358-3.74 [facility] Work Phone: Vitamin D 25-Hydroxy 62.9 ng/mL [facility] Work Phone: Comment on above: Vitamin D 25(OH) Sta tus Range Deficiency <20 ng/mL (50nmol/L) Insufficiency 20 - 30 ng/mL (50 - 75 nmol/L) Sufficiency 30 - 100 ng/mL (75 - 250 nmol/L) Toxicity >100 ng/mL (>250 nmol/L) Platelets bldon 03-01-2022 Platelets (Bld) [#/Vol] 296 10*3/uL 150-450 [facility] Work Phone: Serum or plasma albumin jean urement (mass/volume)on 03-01-2022 Albumin [Mass/Vol] 4.1 g/dL 3.2-5.0 [facility] Work Phone: Serum or plasma albumin/glob ulin mass ratioon 03-01-2022 Albumin/Globulin [Mass ratio] 1.2 {ratio} 0.9-2.4 [facility] Work Phone: Serum or plasma calcium jean urement (mass/volume)on 03-01-2022 Calcium [Mass/Vol] 9.2 mg/dL 8.5-10.1 [facility] Work Phone: Serum or plasma creatinine m easurement (mass/volume)on 03-01-2022 Creatinine [Mass/Vol] 0.97 mg/dL 0.70-1.30 [facility] Work Phone: Comment on above: The validity of the calculated GFR & GFRAA in patients over 70 years has not been determined. Clinical correlation is essential. Serum or plasma urea nitroge n measurement (mass/volume)on 03-01-2022 Urea nitrogen [Mass/Vol] 14 mg/dL 7-18 [facility] Work Phone: Thin prep Papanicolaou smear with manual screeningon 03-01-2022 Thin prep Papanicolaou smear with manual screening 21 U/L 15-37 [facility] Work Phone: Thin prep Papanicolaou smear with manual screening 7 5-15 [facility] Work Phone: Basophil percentageon 2021 Chloride [Moles/Vol] 103 mmol/L 98-107 [facility] Work Phone: Glucose [Mass/Vol] 95 mg/dL 74-106 [facility] Work Phone: Potassium [Moles/Vol] 4.8 mmol/L 3.5-5.1 [facility] Work Phone: Sodium [Moles/Vol] 137 mmol/L 136-145 [facility] Work Phone: Laboratory - Chemistry and C hemistry - challengeon 10-07-2021 CO2 [Moles/Vol] 27.0 mmol/L 21.0-32.0 [facility] Work Phone: Urea nitrogen/Creatinine [Mass ratio] 12.3 mg/mg 10-20 [facility] Work Phone: No Panel Informationon 10-07 Estimated GFR (MDRD) Amer 69 mL/min >60 [facility] Work Phone: Comment on above: GFR Calc Estimated GFR (MDRD) Non-Af Amer 57 mL/min >60 [facility] Work Phone: Comment on above: Non- GFR Calc Serum or plasma calcium jean urement (mass/volume)on 10-07-2021 Calcium [Mass/Vol] 9.2 mg/dL 8.5-10.1 [facility] Work Phone: Serum or plasma creatinine m easurement (mass/volume)on 10-07-2021 Creatinine [Mass/Vol] 1.30 mg/dL 0.70-1.30 [facility] Work Phone: Comment on above: The validity of the calculated GFR & GFRAA in patients over 70 years has not been determined. Clinical correlation is essential. Serum or plasma urea nitroge n measurement (mass/volume)on 10-07-2021 Urea nitrogen [Mass/Vol] 16 mg/dL 7-18 [facility] Work Phone: Thin prep Papanicolaou smear with manual screeningon 10-07-2021 Thin prep Papanicolaou smear with manual screening 7 5-15 [facility] Work Phone: Basophil percentageon 2021 Chloride [Moles/Vol] 104 mmol/L 98-107 [facility] Work Phone: Glucose [Mass/Vol] 99 mg/dL 74-106 [facility] Work Phone: Potassium [Moles/Vol] 4.2 mmol/L 3.5-5.1 [facility] Work Phone: Sodium [Moles/Vol] 137 mmol/L 136-145 [facility] Work Phone: Laboratory - Chemistry and C hemistry - challengeon 09-23-2021 CO2 [Moles/Vol] 26.0 mmol/L 21.0-32.0 [facility] Work Phone: Urea nitrogen/Creatinine [Mass ratio] 10.6 mg/mg 10-20 [facility] Work Phone: No Panel Informationon 09-23 Estimated GFR (MDRD) Amer 89 mL/min >60 [facility] Work Phone: Comment on above: GFR Calc Estimated GFR (MDRD) Non-Af Amer 74 mL/min >60 [facility] Work Phone: Comment on above: Non- GFR Calc Serum or plasma calcium jean urement (mass/volume)on 09-23-2021 Calcium [Mass/Vol] 9.2 mg/dL 8.5-10.1 [facility] Work Phone: Serum or plasma creatinine m easurement (mass/volume)on 09-23-2021 Creatinine [Mass/Vol] 1.04 mg/dL 0.70-1.30 [facility] Work Phone: Comment on above: The validity of the calculated GFR & GFRAA in patients over 70 years has not been determined. Clinical correlation is essential. Serum or plasma urea nitroge n measurement (mass/volume)on 09-23-2021 Urea nitrogen [Mass/Vol] 11 mg/dL 7-18 [facility] Work Phone: Thin prep Papanicolaou smear with manual screeningon 09-23-2021 Thin prep Papanicolaou smear with manual screening 7 5-15 [facility] Work Phone: Basophil percentageon 2021 Chloride [Moles/Vol] 101 mmol/L 98-107 [facility] Work Phone: Glucose [Mass/Vol] 97 mg/dL 74-106 [facility] Work Phone: Potassium [Moles/Vol] 4.5 mmol/L 3.5-5.1 [facility] Work Phone: Sodium [Moles/Vol] 137 mmol/L 136-145 [facility] Work Phone: Laboratory - Chemistry and C hemistry - challengeon 09-09-2021 CO2 [Moles/Vol] 29.0 mmol/L 21.0-32.0 [facility] Work Phone: Urea nitrogen/Creatinine [Mass ratio] 9.8 mg/mg 10-20 [facility] Work Phone: No Panel Informationon 09-09 Estimated GFR (MDRD) Amer 82 mL/min >60 [facility] Work Phone: Comment on above: GFR Calc Estimated GFR (MDRD) Non-Af Amer 68 mL/min >60 [facility] Work Phone: Comment on above: Non- GFR Calc Serum or plasma calcium jean urement (mass/volume)on 09-09-2021 Calcium [Mass/Vol] 9.4 mg/dL 8.5-10.1 [facility] Work Phone: Serum or plasma creatinine m easurement (mass/volume)on 09-09-2021 Creatinine [Mass/Vol] 1.12 mg/dL 0.70-1.30 [facility] Work Phone: Comment on above: The validity of the calculated GFR & GFRAA in patients over 70 years has not been determined. Clinical correlation is essential. Serum or plasma urea nitroge n measurement (mass/volume)on 09-09-2021 Urea nitrogen [Mass/Vol] 11 mg/dL 7-18 [facility] Work Phone: Thin prep Papanicolaou smear with manual screeningon 09-09-2021 Thin prep Papanicolaou smear with manual screening 7 5-15 [facility] Work Phone: Absolute lymphocyte counton 08-26-2021 Lymphocytes Auto (Unsp spec) [#/Vol] 2.97 10*3/uL 0.83-4.51 [facility] Work Phone: Basophil percentageon 2021 Basophils/100 WBC (Bld) 0.4 % 0-1 [facility] Work Phone: Bilirubin [Mass/Vol] 0.60 mg/dL 0.20-1.00 [facility] Work Phone: Comment on above: For patients on eltr ombopag therapy, use of Dimension [place] TBIL is not recommended. Chloride [Moles/Vol] 103 mmol/L 98-107 [facility] Work Phone: Eosinophils/100 WBC (Bld) 0.8 % 0-5 [facility] Work Phone: Glucose [Mass/Vol] 98 mg/dL 74-106 [facility] Work Phone: Neutrophils (Bld) [#/Vol] 5.3 10*3/uL 2.0-7.7 [facility] Work Phone: Neutrophils/100 WBC (Bld) 56.0 % 47-70 [facility] Work Phone: Potassium [Moles/Vol] 4.4 mmol/L 3.5-5.1 [facility] Work Phone: Protein [Mass/Vol] 7.5 g/dL 6.4-8.2 [facility] Work Phone: Sodium [Moles/Vol] 138 mmol/L 136-145 [facility] Work Phone: WBC (Bld) [#/Vol] 9.5 10*3/uL 4.4-11.0 [facility] Work Phone: Blood erythrocytes count (nu mber/volume)on 08-26-2021 RBC (Bld) [#/Vol] 4.91 10*6/uL 4.6-6.2 [facility] Work Phone: Blood hemoglobin measurement (mass/volume)on 08-26-2021 Hemoglobin (Bld) [Mass/Vol] 15.3 g/dL 13.0-16.5 [facility] Work Phone: Blood lymphocytes/100 leukoc yteson 08-26-2021 Lymphocytes/100 WBC (Bld) 31.2 % 19-41 [facility] Work Phone: Blood monocytes/100 leukocyt eson 08-26-2021 Monocytes/100 WBC (Bld) 10.9 % 0-10 [facility] Work Phone: Blood platelet mean volumeon 08-26-2021 Platelet mean volume (Bld) [Entitic vol] 9.8 fL 6.2-12.0 [facility] Work Phone: [phone] Determination of erythrocyte mean corpuscular volume (MCV)on 08-26-2021 MCV (RBC) [Entitic vol] 94.5 fL 80-94 [facility] Work Phone: Hematocrit Auto (Bld) [Volum e fraction]on 08-26-2021 Hematocrit (Bld) [Volume fraction] 46.4 % 40-54 [facility] Work Phone: [phone] Laboratory - Chemistry and C hemistry - challengeon 08-26-2021 ALP [Catalytic activity/Vol] 93 U/L 45-117 [facility] Work Phone: ALT [Catalytic activity/Vol] 52 U/L 16-61 [facility] Work Phone: CO2 [Moles/Vol] 29.0 mmol/L 21.0-32.0 [facility] Work Phone: Globulin (S) [Mass/Vol] 3.6 g/dL 2.2-4.2 [facility] Work Phone: Urea nitrogen/Creatinine [Mass ratio] 9.8 mg/mg 10-20 [facility] Work Phone: Laboratory - Hematology and Cell countson 08-26-2021 Erythrocyte distribution width (RBC) [Entitic vol] 51.1 fL 35.1-43.9 [facility] Work Phone: Erythrocyte distribution width (RBC) [Ratio] 14.6 % 11.6-14.6 [facility] Work Phone: Immature granulocytes/100 WBC (Bld) 0.700 % 0.0-0.9 [facility] Work Phone: Comment on above: IG% - Immature Granu locytes (promyelocytes, myelocytes and metamyelocytes) > 1% indicates that a LEFT SHIFT is Present. MCH (RBC) [Entitic mass] 31.2 pg 27.0-32.0 [facility] Work Phone: Nucleated RBC/100 WBC (Bld) [Ratio] 0 % 0-5 [facility] Work Phone: MCHC Auto (RBC) [Mass/Vol]on 08-26-2021 MCHC (RBC) [Mass/Vol] 33.0 g/dL 32-36 [facility] Work Phone: No Panel Informationon 08-26 Estimated GFR (MDRD) Amer 74 mL/min >60 [facility] Work Phone: Comment on above: GFR Calc Estimated GFR (MDRD) Non-Af Amer 61 mL/min >60 [facility] Work Phone: Comment on above: Non- GFR Calc Thyroid Stimulating Hormone (TSH) 1.05 uIU/mL 0.358-3.74 [facility] Work Phone: Vitamin D 25-Hydroxy 52.0 ng/mL [facility] Work Phone: Comment on above: Vitamin D 25(OH) Sta tus Range Deficiency <20 ng/mL (50nmol/L) Insufficiency 20 - 30 ng/mL (50 - 75 nmol/L) Sufficiency 30 - 100 ng/mL (75 - 250 nmol/L) Toxicity >100 ng/mL (>250 nmol/L) Platelets bldon 08-26-2021 Platelets (Bld) [#/Vol] 302 10*3/uL 150-450 [facility] Work Phone: Serum or plasma albumin jean urement (mass/volume)on 08-26-2021 Albumin [Mass/Vol] 3.9 g/dL 3.2-5.0 [facility] Work Phone: Serum or plasma albumin/glob ulin mass ratioon 08-26-2021 Albumin/Globulin [Mass ratio] 1.1 {ratio} 0.9-2.4 [facility] Work Phone: Serum or plasma calcium jean urement (mass/volume)on 08-26-2021 Calcium [Mass/Vol] 9.1 mg/dL 8.5-10.1 [facility] Work Phone: Serum or plasma creatinine m easurement (mass/volume)on 08-26-2021 Creatinine [Mass/Vol] 1.22 mg/dL 0.70-1.30 [facility] Work Phone: Comment on above: The validity of the calculated GFR & GFRAA in patients over 70 years has not been determined. Clinical correlation is essential. Serum or plasma urea nitroge n measurement (mass/volume)on 08-26-2021 Urea nitrogen [Mass/Vol] 12 mg/dL 7-18 [facility] Work Phone: Thin prep Papanicolaou smear with manual screeningon 08-26-2021 Thin prep Papanicolaou smear with manual screening 29 U/L 15-37 [facility] Work Phone: Thin prep Papanicolaou smear with manual screening 6 5-15 [facility] Work Phone: CNOVon 10-10-2017 CNOV Office Visit (AGGENS1) --CRISTINA JEFFREY ([id number]) 1945 MDate Time Provider Department10/10/17 11:30 AM [...] Take 1 tablet by mouth twice daily.Vit A,C,N-Rpva-Turyal (PRESERVISION AREDS) [id number] yene-yw-eque capTake 1 capsule by mouth twice daily.albuterol [...] 1 tablet by mouth twice * VITAMINS A,C,H-MVCA-JXHJKX 1* Take 1 capsule by mouth twice* [...] clinician: You may follow-up as neededEncounter Number: [id number] Status:Closed by VENUS FOSTER MD on 10/10/17 [facility] PROGRESSon 10-10-2017 Protein mass conc HNO ID: [id number] thor: Venus Harrison: (none)Author Type: PhysicianType: Progress [...] tablet Take 1 tablet by mouth twicedaily.Vit A,C,J-Narv-Kivlfs (PRESERVISION AREDS) [id number] cjph-gz-jcqdyvd Take 1 capsule by mouth twice daily.albuterol [...] need any further follow-up.Venus Foster MD Normal [facility] Basic Panelon 09-28-2017 Creatinine 0.69 mg/dL Normal 0.67-1.17 [facility] Comment on above: Performed By: #### P PHRS ####[facility] [place], [place] [address] Urea nitrogen 13 mg/dL Normal 7-18 [facility] Comment on above: Performed By: #### P PHRS ####[facility] [place], [place] [address] Anion gap 9 mmol/L Normal 8-16 [facility] Comment on above: Performed By: #### P PHRS ####[facility] [place], [place] [address] Calcium 8.2 mg/dL Low 8.5-10.1 [facility] Comment on above: Performed By: #### P PHRS ####[facility] [place], [place] [address] CO2 25 mmol/L Normal 21-32 [facility] Comment on above: Performed By: #### P PHRS ####[place] [address] Glucose mass conc 86 mg/dL Normal 70-99 [facility] Comment on above: Performed By: #### P PHRS ####[place] [address] Chloride 108 mmol/L High 98-107 [facility] Comment on above: Performed By: #### P PHRS ####[facility] [place] [address] Potassium molar conc 4.1 mmol/L Normal 3.5-5.1 [facility] Comment on above: Performed By: #### P PHRS ####[place] [address] Sodium 138 mmol/L Normal 136-145 [facility] Comment on above: Performed By: #### P PHRS ####[place] [address] CASE MANAGEMon 09-28-2017 CASE MANAGEM HNO ID: [id number] thor: KELLY Carey Rnervice: Care ManagementAuthor Type: Registered NurseType: Care Mgt Progress NoteFiled: 09/28/2017 11:54 AMNote Text:CARE MANAGEMENT PROGRESS NOTESERVICE DATE: 09/28/2017SERVICE TIME: 11:53 AM LOS: 16 daysNeeds Prior to Discharge: [facility] by to [place] arranged for 3pm. Ptnotified, RN aware. Pt states he will call is family to notifySIGNATURE: Lakia Guillen RN PATIENT NAME: Cristina JeffreyDATE: September 28, 2017 : 11:53 AM PAGER/CONTACT #: [phone] Normal [facility] CASE MANAGEM HNO ID: [id number] thor: KELLY Carey Rnervice: Care ManagementAuthor Type: Registered NurseType: Care Mgt Progress NoteFiled: 09/28/2017 9:50 AMNote Text:CARE MANAGEMENT PROGRESS NOTESERVICE DATE: 09/28/2017SERVICE TIME: 9:49 AM [place] [place] notified and will DC today. Await DCordersSIGNATURE: Lakia Guillen RN PATIENT NAME: Cristina JeffreyDATE: September 28, 2017 : 9:49 AM PAGER/CONTACT #: [phone] Normal [facility] CASE MANAGEM HNO ID: [id number] thor: Lakia (Rn) Mindy, RNService: Care ManagementAuthor Type: Registered NurseType: Care Mgt Progress NoteFiled: 09/28/2017 8:36 AMNote Text:CARE MANAGEMENT PROGRESS NOTESERVICE DATE: 09/28/2017SERVICE TIME: 8:35 AM LOS: 16 daysNeeds Prior to Discharge: Accepting Facility;Discharge TransportationWaiting for acceptance [place]. Sent message to facility to inquire.No precert needed when acceptedSIGNATURE: Lakia Guillen RN PATIENT NAME: Cristina JeffreyDATE: September 28, 2017 : 8:34 AM PAGER/CONTACT #: [phone] Normal [facility] Glucose Meteron 09-28-2017 Glucose mass conc 97 mg/dL Normal 70-99 [facility] Comment on above: Result Comment: RN N OTIFIED Performed By: #### P PHRS ####[place] [address] Hemogram/Diffon 09-28-2017 Abs Immature Grans 0.05 thou/cmm Normal 0.00-0.05 [facility] Comment on above: Performed By: #### P PHRS ####[place] [address] Abs. Baso 0.03 thou/cmm Normal 0.01-0.08 [facility] Comment on above: Performed By: #### P PHRS ####[place] [address] Abs. Scurry 0.58 thou/cmm Normal 0.30-0.82 [facility] Comment on above: Performed By: #### P PHRS ####[place] [address] Abs. Neut (ANC) 2.70 thou/cmm Normal 1.78-5.38 [facility] Comment on above: Performed By: #### P PHRS ####[address] [address] Basophils/100 WBC Auto (Bld) 0.5 % Normal [facility] Comment on above: Performed By: #### P PHRS ####[address] [address] Eosinophils 0.47 thou/cmm Normal 0.04-0.54 [facility] Comment on above: Performed By: #### P PHRS ####[place] [address] Eosinophils/100 leukocytes 7.5 % Normal [facility] Comment on above: Performed By: #### P PHRS ####[place] [address] Erythrocyte distribution width Auto Ratio (RBC) 16.2 % High 11.6-14.4 [facility] Comment on above: Performed By: #### P PHRS ####[place] [address] Erythrocytes (RBC) 2.98 mil/cmm Low 4.63-6.08 [facility] Comment on above: Performed By: #### P PHRS ####[place] [address] Hematocrit (HCT) 26.0 % Low 40.1-51.0 [facility] Comment on above: Performed By: #### P PHRS ####[place] [address] Hemoglobin mass conc (Bld) 8.1 g/dL Low 13.7-17.5 [facility] Comment on above: Performed By: #### P PHRS ####[place] [address] Immature Grans 0.80 % Normal [facility] Comment on above: Performed By: #### P PHRS ####[place] [address] Lymphocytes 2.43 thou/cmm Normal 0.84-2.85 [facility] Comment on above: Performed By: #### P PHRS ####[address] [address] Lymphocytes/100 leukocytes 38.8 % Normal [facility] Comment on above: Performed By: #### P PHRS ####[address] [address] MCH 27.2 pg Normal 25.7-32.2 [facility] Comment on above: Performed By: #### P PHRS ####[address] [address] MCHC mass conc (RBC) 31.2 % Low 32.3-36.5 [facility] Comment on above: Performed By: #### P PHRS ####[address] [address] MCV 87.2 fL Normal 83.2-95.6 [facility] Comment on above: Performed By: #### P PHRS ####[address] [address] Monocytes/100 leukocytes 9.3 % Normal [facility] Comment on above: Performed By: #### P PHRS ####[address] [address] Platelet mean volume (PMV) 9.7 fL Normal 8.7-12.0 [facility] Comment on above: Performed By: #### P PHRS ####[address] [address] Platelets 430 thou/cmm High 141-365 [facility] Comment on above: Performed By: #### P PHRS ####[address] [address] RDW SD 51.8 fl High 36.1-45.8 [facility] Comment on above: Performed By: #### P PHRS ####[address] [address] Seg Neutrophil 43.1 % Normal [facility] Comment on above: Performed By: #### P PHRS ####[address] [address] WBC (Leukocytes) 6.27 thou/cmm Normal 4.23-9.07 [facility] Comment on above: Performed By: #### P PHRS ####[place] [id number] MDRD GFRon 09-28-2017 eGFR (non-black) mL/min/{1.73_m2} Normal >60mL/m in/ 1.73m2 [facility] Comment on above: Result Comment: If t he patient is , multiply the result by 1.210. Performed By: #### P PHRS ####[place] [id number] NURSING PROGon 09-28-2017 Protein mass conc HNO ID: [id number] thor: Michelle (Rn) KELLY Sampsonervice: NursingAuthor Type: [...] come back down. Will continue tomonitor. Normal [facility] NUTRITIONon 09-28-2017 NUTRITION HNO ID: [id number] thor: OUMOU Davis Rdervice: Nutrition TherapyAuthor Type: Registered DietitianType: NutritionFiled: 09/28/2017 1:52 PMNote Text:NUTRITION SUPPORT TEAMTOPIC: NUTRITION SUPPORT TEAM PROGRESS NOTEPATIENT NAME: Cristina JeffreyMRN: [id number] OF : 1945DATE: 09/28/2017Nutritional Status: SEVERE PROTEIN [...] Wt 81.9 kg (180 lb 8 oz) QvM468% BMI 26.64 kg/m?Current Weight: Weight: 81.9 kg (180 lb 8 oz)Intake AND Output:Intake/Output Summary (Last 24 hours) at 09/28/17 1349Last data filed at 09/28/17 1226 Gross per 24 hourIntake 240 mlOutput 582 mlNet -342 mlLaboratory Data:Recent Labs 09/27/1802NA 138 140 139K 4.1 4.2 4.4CHLOR 108* 108* 108*CO2 25 27 26CREAT 0.69 0.55* 0.58*BUN 13 12 9GLUC 86 82 104*CA 8.2* 8.1* 8.5Recent Labs [id number] 19.7*Accuchecks: No results found for: PCGLUCOSETricnaomy Matias RDPager: [phone]: 2 Normal [facility] PROGRESSon 09-28-2017 Protein mass conc HNO ID: [id number] thor: Jaren (Res) EpifanioService: General SurgeryAuthor Type: [...] 1 tablet (SENNA-S) 1 tablet ORAL BIDpill market editor (patient-specific) 1 Each Miscell. (Med.Supl.;Non-Drugs) PRNdiltiazem 30 [...] BALANCETEARS) 1 Drop BOTH EYES PRNphenol 1 Amenia (CHLORASEPTIC) 1 Amenia MUCOUS MEMBRANE (TOPICAL MOUTH ANDTHROAT) q 2 [...] ?F)Date 09/27/17699 - 09/28/1765809/28/17699 - 09/29/17 0659Shift 9366-3603 3129-9948 4281-9930 24 Hour Total 0401-6178 [id number] 24 Hour TotalINTAKE PO 700 700 240 [...] Note: Added automatically from request for surgery [id number]- Gastric outlet obstruction 09/12/2017 Overview Note: Added automatically from request for surgery [id number]- Severe protein-calorie malnutrition (HCC) 07/03/2017Assessment/Plan72 YOM with [...] September 28, 2017 : 11:04 AM PAGER: [phone] Normal [facility] PT EDon 09-28-2017 PT ED HNO ID: [id number] thor: Radha Dobbs (Pharmacist)Service: PharmacyAuthor Type: PharmacistType: Patient EducationFiled: 09/28/2017 11:19 AMNote Text:DISCHARGE MEDICATION REVIEW AND COUNSELING BY PHARMACYPatient Name: Cristina Jeffrey Account #: Data UnavailableMRN: [id number] Admission Date: 09/12/2017Date of Contact: September 28, [...] mg tabletCommonly known as: PRAVACHOLPRESERVISION AREDS 14,320-226-200 msow-dx-ymax CapGeneric drug: Vit A,C,W-Fltp-IpiuybZFXLQWMJF 160-4.5 mcg/actuation inhalerGeneric drug: budesonide-formoterolVitamin D 50,000 unit capsuleGeneric drug: ergocalciferol (vitamin D2)Where to Get Your MedicationsThese medications were sent to [facility] [address] [place], [place] [id number] [place] [address] [place], [place] [id number] ? apixaban 5 mg tab(s) Normal [facility] Prealbuminon 09-28-2017 Prealbumin 19.7 mg/dL Low 20.0-40.0 [facility] Comment on above: Performed By: #### P PHRS ####[place] [address] Basic Panelon 09-27-2017 Creatinine 0.55 mg/dL Low 0.67-1.17 [facility] Comment on above: Performed By: #### P PHRS ####[facility] [place] [address] Anion gap 9 mmol/L Normal 8-16 [facility] Comment on above: Performed By: #### P PHRS ####[place] [address] CO2 27 mmol/L Normal 21-32 [facility] Comment on above: Performed By: #### P PHRS ####[place] [address] Glucose mass conc 82 mg/dL Normal 70-99 [facility] Comment on above: Performed By: #### P PHRS ####[place] [address] Urea nitrogen 12 mg/dL Normal 7-18 [facility] Comment on above: Performed By: #### P PHRS ####[place] [address] Calcium 8.1 mg/dL Low 8.5-10.1 [facility] Comment on above: Performed By: #### P PHRS ####[place] [address] Chloride 108 mmol/L High 98-107 [facility] Comment on above: Performed By: #### P PHRS ####[place] [address] Potassium molar conc 4.2 mmol/L Normal 3.5-5.1 [facility] Comment on above: Performed By: #### P PHRS ####[place] [address] Sodium 140 mmol/L Normal 136-145 [facility] Comment on above: Performed By: #### P PHRS ####[place] [address] CASE MANAGEMon 09-27-2017 CASE MANAGEM HNO ID: [id number] thor: Lakia (Rn) Mindy, RNService: Care ManagementAuthor [...] 27, 2017 : 12:04 PM PAGER/CONTACT #: [phone] Normal [facility] Hemogram/Diffon 09-27-2017 Abs Immature Grans 0.03 thou/cmm Normal 0.00-0.05 [facility] Comment on above: Performed By: #### P PHRS ####[address] [address] Abs. Baso 0.04 thou/cmm Normal 0.01-0.08 [facility] Comment on above: Performed By: #### P PHRS ####[address] [address] Abs. Scurry 0.75 thou/cmm Normal 0.30-0.82 [facility] Comment on above: Performed By: #### P PHRS ####[address] [address] Abs. Neut (ANC) 3.93 thou/cmm Normal 1.78-5.38 [facility] Comment on above: Performed By: #### P PHRS ####[address] [address] Basophils/100 WBC Auto (Bld) 0.5 % Normal [facility] Comment on above: Performed By: #### P PHRS ####[address] [address] Eosinophils 0.53 thou/cmm Normal 0.04-0.54 [facility] Comment on above: Performed By: #### P PHRS ####[address] [address] Eosinophils/100 leukocytes 6.8 % Normal [facility] Comment on above: Performed By: #### P PHRS ####[place] [address] Erythrocyte distribution width Auto Ratio (RBC) 16.2 % High 11.6-14.4 [facility] Comment on above: Performed By: #### P PHRS ####[place] [address] Erythrocytes (RBC) 3.00 mil/cmm Low 4.63-6.08 [facility] Comment on above: Performed By: #### P PHRS ####[place] [address] Hematocrit (HCT) 26.2 % Low 40.1-51.0 [facility] Comment on above: Performed By: #### P PHRS ####[place] [address] Hemoglobin mass conc (Bld) 8.2 g/dL Low 13.7-17.5 [facility] Comment on above: Performed By: #### P PHRS ####[place] [address] Immature Grans 0.40 % Normal [facility] Comment on above: Performed By: #### P PHRS ####[place] [address] Lymphocytes 2.52 thou/cmm Normal 0.84-2.85 [facility] Comment on above: Performed By: #### P PHRS ####[place] [address] Lymphocytes/100 leukocytes 32.3 % Normal [facility] Comment on above: Performed By: #### P PHRS ####[place] [address] MCH 27.3 pg Normal 25.7-32.2 [facility] Comment on above: Performed By: #### P PHRS ####[place] [address] MCHC mass conc (RBC) 31.3 % Low 32.3-36.5 [facility] Comment on above: Performed By: #### P PHRS ####[address] [address] MCV 87.3 fL Normal 83.2-95.6 [facility] Comment on above: Performed By: #### P PHRS ####[address] [address] Monocytes/100 leukocytes 9.6 % Normal [facility] Comment on above: Performed By: #### P PHRS ####[address] [address] Platelet mean volume (PMV) 9.2 fL Normal 8.7-12.0 [facility] Comment on above: Performed By: #### P PHRS ####[place] [address] Platelets 413 thou/cmm High 141-365 [facility] Comment on above: Performed By: #### P PHRS ####[place] [address] RDW SD 51.7 fl High 36.1-45.8 [facility] Comment on above: Performed By: #### P PHRS ####[place] [address] Seg Neutrophil 50.4 % Normal [facility] Comment on above: Performed By: #### P PHRS ####[place] [address] WBC (Leukocytes) 7.80 thou/cmm Normal 4.23-9.07 [facility] Comment on above: Performed By: #### P PHRS ####[place] [address] MDRD GFRon 09-27-2017 eGFR (non-black) mL/min/{1.73_m2} Normal >60mL/m in/ 1.73m2 [facility] Comment on above: Result Comment: If t he patient is , multiply the result by 1.210. Performed By: #### P PHRS ####[place] [address] NURSING PROGon 09-27-2017 Protein mass conc HNO ID: [id number] thor: Chula (Rn) Sina, RNService: NursingAuthor Type: Registered NurseType: Nursing Progress NoteFiled: 09/27/2017 2:31 PMNote Text: Nursing Progress NotePatient Name: Cristina JeffreyMRN: [id number] Location: [place] [address] [address]*____ Daily Note:RT paged again for resp txThis note was completed by: Chula Andino RN [facility] PROGRESSon 09-27-2017 Protein mass conc HNO ID: [id number] thor: Giselle (Telegraphic Typewriter Operator) CroomService: ElectrophysiologyAuthor Type: Nurse PractitionerType: Progress NotesFiled: [...] BP Temp Temp src Pulse Resp SpO2 Guubdr65/06/18 0753 - - - - - - [...] 1 tablet (SENNA-S) 1 tablet ORAL BIDpill market editor (patient-specific) 1 Each Miscell. (Med.Supl.;Non-Drugs) PRNdiltiazem 30 [...] BALANCETEARS) 1 Drop BOTH EYES PRNphenol 1 Amenia (CHLORASEPTIC) 1 Amenia MUCOUS MEMBRANE (TOPICAL MOUTH ANDTHROAT) q 2 [...] DAILY 09/26/17 1324 --SIGNATURE: Michelle Weeks, MSN, BILLING COORDINATOR.CAR PILOT PATIENT NAME: Cristina JeffreyDATE: September 27, 2017 : 11:48 AM PAGER/CONTACT #: [phone] [facility] Protein mass conc HNO ID: [id number] thor: Jaren (Adelina) Liange: General SurgeryAuthor Type: [...] 1 tablet (SENNA-S) 1 tablet ORAL BIDpill market editor (patient-specific) 1 Each Miscell. (Med.Supl.;Non-Drugs) PRNdiltiazem 30 [...] BALANCETEARS) 1 Drop BOTH EYES PRNphenol 1 Amenia (CHLORASEPTIC) 1 Amenia MUCOUS MEMBRANE (TOPICAL MOUTH ANDTHROAT) q 2 [...] 09/27/17 0659 09/27/17 07 - 09/28/17 0659Shift 9529-4825 7403-8656 0219-7574 24 Hour Total 3892-4497 [id number] 24 Hour TotalINTAKE PO 460 460 PO [...] Note: Added automatically from request for surgery [id number]- Gastric outlet obstruction 09/12/2017 Overview Note: Added automatically from request for surgery [id number]- Severe protein-calorie malnutrition (HCC) 07/03/2017Assessment/Plan72 YOM with [...] September 27, 2017 : 11:04 AM PAGER: [phone] Normal [facility] THERAPY NTon 09-27-2017 THERAPY NT HNO ID: [id number] thor: Hailey (Otr/L) TharpeService: Occupational TherapyAuthor Type: Occupational TherapistType: Therapy (PT/OT/Speech/Resp)Filed: 09/27/2017 9:11 AMNote Text:Occupational Therapy EvaluationSERVICE DATE: 09/27/2017SERVICE TIME: 814 to 829ROOM: [id number] Discharge Disposition: Subacute/SNFJustification For Post Acute Needs: [...] activities of dailyliving (ADL)Interventions Provided: Evaluation$ Evaluation-Low (50079) Billed Units: 1 unitTotal Treatment Time (minutes): [...] September 27, 2017 : 9:08 AM PAGER: [phone] Normal [facility] THERAPY NT HNO ID: [id number] thor: Ana Cristina (Pt) SturmService: Physical TherapyAuthor Type: Physical TherapistType: Therapy (PT/OT/Speech/Resp)Filed: 09/27/2017 8:55 AMNote Text:Physical Therapy Re-evaluationSERVICE DATE: 09/27/2017SERVICE TIME: 809 to 820ROOM: [id number] Discharge Disposition: Subacute/SNFJustification For Post Acute Needs: [...] at End of Session: OOB in Chair;Call Oliav in ReachTolerance Limited By FatiguePhysical Therapy Problem List: Decreased Activity Tolerance;FunctionalMobility Impairment;Balance ImpairedPatient /Caregiver Goals: Go To RehabGoals for Plan of Care:Transfer supine to/from sit with: SupervisionTransfer sit to/from stand with: SupervisionAmbulate with: SupervisionDistance: 58d0Nuttqx: Wheeled WalkerGoal: sit to/from stand x 10 reps with SBAProgress Toward Goals: Progressing as expectedRehab Potential: GoodPLAN:Treatment Frequency (times per week): 3 (1-3) Current admissionTreatment Interventions: Functional Mobility Training;BalanceTraining;Educ ation;StrengtheningPlan of Care developed with: PatientTREATMENT INTERVENTIONS:Therapy Diagnosis: Reduced mobility-other;Unsteadiness onfeet;Abnormalities of gait and mobility-otherInterventions Provided: Re-evaluation$ Reevaluation (67747) Billed Units: 1 unitEducation on role of [...] 27, 2017 : 8:47 AM PAGER/CONTACT #: [phone] Normal [facility] Basic Panelon 09-26-2017 Creatinine 0.58 mg/dL Low 0.67-1.17 [facility] Comment on above: Performed By: #### P PHRS ####[facility] [place], [place] [address] Glucose mass conc 104 mg/dL High 70-99 [facility] Comment on above: Performed By: #### P PHRS ####[address] [address] Urea nitrogen 9 mg/dL Normal 7-18 [facility] Comment on above: Performed By: #### P PHRS ####[address] [address] Anion gap 9 mmol/L Normal 8-16 [facility] Comment on above: Performed By: #### P PHRS ####[address] [address] Calcium 8.5 mg/dL Normal 8.5-10.1 [facility] Comment on above: Performed By: #### P PHRS ####[address] [address] CO2 26 mmol/L Normal 21-32 [facility] Comment on above: Performed By: #### P PHRS ####[address] [address] Chloride 108 mmol/L High 98-107 [facility] Comment on above: Performed By: #### P PHRS ####[address] [address] Potassium molar conc 4.4 mmol/L Normal 3.5-5.1 [facility] Comment on above: Performed By: #### P PHRS ####[address] [address] Sodium 139 mmol/L Normal 136-145 [facility] Comment on above: Performed By: #### P PHRS ####[address] [address] CASE MANAGEMon 09-26-2017 CASE MANAGEM HNO ID: [id number] thor: Lakia (Rn) Mindy, KELLYervice: Care ManagementAuthor [...] 26, 2017 : 12:00 PM PAGER/CONTACT #: [phone] Normal [facility] Hemogram/Diffon 09-26-2017 Abs Immature Grans 0.04 thou/cmm Normal 0.00-0.05 [facility] Comment on above: Performed By: #### P PHRS ####[place] [address] Abs. Baso 0.05 thou/cmm Normal 0.01-0.08 [facility] Comment on above: Performed By: #### P PHRS ####[place] [address] Abs. Scurry 0.66 thou/cmm Normal 0.30-0.82 [facility] Comment on above: Performed By: #### P PHRS ####[place] [address] Abs. Neut (ANC) 4.62 thou/cmm Normal 1.78-5.38 [facility] Comment on above: Performed By: #### P PHRS ####[place] [address] Basophils/100 WBC Auto (Bld) 0.6 % Normal [facility] Comment on above: Performed By: #### P PHRS ####[address] [address] Eosinophils 0.62 thou/cmm High 0.04-0.54 [facility] Comment on above: Performed By: #### P PHRS ####[address] [address] Eosinophils/100 leukocytes 7.6 % Normal [facility] Comment on above: Performed By: #### P PHRS ####[place] [address] Erythrocyte distribution width Auto Ratio (RBC) 16.1 % High 11.6-14.4 [facility] Comment on above: Performed By: #### P PHRS ####[place] [address] Erythrocytes (RBC) 3.41 mil/cmm Low 4.63-6.08 [facility] Comment on above: Performed By: #### P PHRS ####[place] [address] Hematocrit (HCT) 29.5 % Low 40.1-51.0 [facility] Comment on above: Performed By: #### P PHRS ####[place] [address] Hemoglobin mass conc (Bld) 9.3 g/dL Low 13.7-17.5 [facility] Comment on above: Performed By: #### P PHRS ####[address] [address] Immature Grans 0.50 % Normal [facility] Comment on above: Performed By: #### P PHRS ####[address] [address] Lymphocytes 2.16 thou/cmm Normal 0.84-2.85 [facility] Comment on above: Performed By: #### P PHRS ####[place] [address] Lymphocytes/100 leukocytes 26.5 % Normal [facility] Comment on above: Performed By: #### P PHRS ####[address] [address] MCH 27.3 pg Normal 25.7-32.2 [facility] Comment on above: Performed By: #### P PHRS ####[address] [address] MCHC mass conc (RBC) 31.5 % Low 32.3-36.5 [facility] Comment on above: Performed By: #### P PHRS ####[address] [address] MCV 86.5 fL Normal 83.2-95.6 [facility] Comment on above: Performed By: #### P PHRS ####[place] [address] Monocytes/100 leukocytes 8.1 % Normal [facility] Comment on above: Performed By: #### P PHRS ####[place] [address] Platelet mean volume (PMV) 9.3 fL Normal 8.7-12.0 [facility] Comment on above: Performed By: #### P PHRS ####[place] [address] Platelets 454 thou/cmm High 141-365 [facility] Comment on above: Performed By: #### P PHRS ####[place] [address] RDW SD 50.8 fl High 36.1-45.8 [facility] Comment on above: Performed By: #### P PHRS ####[address] [address] Seg Neutrophil 56.7 % Normal [facility] Comment on above: Performed By: #### P PHRS ####[place] [address] WBC (Leukocytes) 8.15 thou/cmm Normal 4.23-9.07 [facility] Comment on above: Performed By: #### P PHRS ####[place] [address] MDRD GFRon 09-26-2017 eGFR (non-black) mL/min/{1.73_m2} Normal >60mL/m in/ 1.73m2 [facility] Comment on above: Result Comment: If t he patient is , multiply the result by 1.210. Performed By: #### P PHRS ####[facility] [place], [place] [address] PROGRESSon 09-26-2017 Protein mass conc HNO ID: [id number] thor: Giselle (Telegraphic Typewriter Operator) CroomService: ElectrophysiologyAuthor Type: Nurse PractitionerType: Progress NotesFiled: [...] BP Temp Temp src Pulse Resp SpO2 Qprqjv75/05/18 1100 100/58 36.6 ?C (97.9 ?F) Oral [...] packet (MIRALAX, GLYCOLAX) 17 g ORAL DAILYpill market editor (patient-specific) 1 Each Miscell. (Med.Supl.;Non-Drugs) PRNdiltiazem 30 [...] BALANCETEARS) 1 Drop BOTH EYES PRNphenol 1 Amenia (CHLORASEPTIC) 1 Amenia MUCOUS MEMBRANE (TOPICAL MOUTH ANDTHROAT) q 2 [...] DAILY 09/26/17 1324 --SIGNATURE: Michelle Weeks, MSN, BILLING COORDINATOR.CAR PILOT PATIENT NAME: Cristina JeffreyDATE: September 26, 2017 : 1:25 PM PAGER/CONTACT #: [phone] [facility] Protein mass conc HNO ID: [id number] thor: Pierce (Adelina) Landonervice: General SurgeryAuthor Type: [...] packet (MIRALAX, GLYCOLAX) 17 g ORAL DAILYpill market editor (patient-specific) 1 Each Miscell. (Med.Supl.;Non-Drugs) PRNdiltiazem 30 [...] BALANCETEARS) 1 Drop BOTH EYES PRNphenol 1 Amenia (CHLORASEPTIC) 1 Amenia MUCOUS MEMBRANE (TOPICAL MOUTH ANDTHROAT) q 2 [...] 09/26/17 0659 09/26/17 07 - 09/27/17 0659Shift 6216-8022 0653-6809 9427-2745 24 Hour Total 4864-4043 9416-07112802-5075 24 Hour TotalINTAKE Shift TotalOUTPUT Urine 501 261 247 7853 Void (ml) 250 938 959 7668 Amount Voided Before Scan 250 250 Urine [...] O2AD in the last 72 hours.Recent Labs 09/25/1802631115RPPKF 0.58* 0.51* 0.49*BUN 9 9 9NA 139 141 141K 4.4 4.1 3.7CHLOR 108* 111* 108*CO2 26 26 28ANION 9 8 9GLUC 104* 73 110*CA 8.5 8.2* 8.3*WBC 8.15 8.27 8.00HB 9.3* 8.3* 8.2*HCT 29.5* 26.9* 26.3*PLT 454* 411* 341ASSESSMENT AND PLAN:Active Hospital Problems Diagnosis Date Noted- Atrial fibrillation with RVR ([facility]) 09/12/2017- Hematemesis 09/12/2017 Overview Note: Added automatically from request for surgery [id number]- Gastric outlet obstruction 09/12/2017 Overview Note: Added automatically from request for surgery [id number]- Severe protein-calorie malnutrition (HCC) 07/03/2017Assessment/Plan72 YOM with gastric/duodenal ulcers, GOO, A-fib/RVR. ?s/p EGD and duodenaldilitation. Hpylori negative.??- A-fib mgnt per medicine, currently on cardizem gtt. OK for PO meds fora-fib from surgery standpoint.- protonix- [place] soft diet, wean TPN- pt/ot - pt refusing to be seen by them.- replace electrolytes prn.- continue to monitor UOP. Pt w/ incomplete voiding but no discomfort.Pierce Montiel [facility] Chief ResidentJune 2017 6:38 [facility] #: [facility] General Surgery Service Pager:For questions or concerns Mon-Fri 6a-5p please page [phone].After 5pm and on Weekends and Holidays, please page [phone] if in ICU or 2174if on RNF. Normal [facility] Basic Panelon 09-25-2017 Creatinine 0.51 mg/dL Low 0.67-1.17 [facility] Comment on above: Performed By: #### P PHRS ####[facility] [place], [place] [address] Anion gap 8 mmol/L Normal 8-16 [facility] Comment on above: Performed By: #### P PHRS ####[address] [address] CO2 26 mmol/L Normal 21-32 [facility] Comment on above: Performed By: #### P PHRS ####[address] [address] Glucose mass conc 73 mg/dL Normal 70-99 [facility] Comment on above: Performed By: #### P PHRS ####[address] [address] Urea nitrogen 9 mg/dL Normal 7-18 [facility] Comment on above: Performed By: #### P PHRS ####[address] [address] Calcium 8.2 mg/dL Low 8.5-10.1 [facility] Comment on above: Performed By: #### P PHRS ####[address] [address] Chloride 111 mmol/L High 98-107 [facility] Comment on above: Performed By: #### P PHRS ####[address] [address] Potassium molar conc 4.1 mmol/L Normal 3.5-5.1 [facility] Comment on above: Performed By: #### P PHRS ####[place] [address] Sodium 141 mmol/L Normal 136-145 [facility] Comment on above: Performed By: #### P PHRS ####[address] [address] CASE MANAGEMon 09-25-2017 CASE MANAGEM HNO ID: [id number] thor: Lakia (Rn) Mnidy, RNService: Care ManagementAuthor Type: Registered NurseType: Care Mgt Progress NoteFiled: 09/25/2017 1:01 PMNote Text:CARE MANAGEMENT PROGRESS NOTESERVICE DATE: 09/25/2017SERVICE TIME: 12:53 PM LOS: 13 daysNeeds Prior to Discharge: Accepting Facility;Discharge TransportationChart reviewed. NG removed, tolerating soft diet, still receiving TPN. Idiscussed DC plan with pt. He is agreeable to [place] only. I will askthem to reconsider since they denied acceptance based on his acuity lastweek and he is now improving. Await decisionSIGNATURE: Lakia Guillen RN PATIENT NAME: Cristina JeffreyDATE: September 25, 2017 : 12:53 PM PAGER/CONTACT #: [phone] Normal [facility] Hemogram/Diffon 09-25-2017 Abs Immature Grans 0.04 thou/cmm Normal 0.00-0.05 [facility] Comment on above: Performed By: #### P PHRS ####[place] [address] Abs. Baso 0.03 thou/cmm Normal 0.01-0.08 [facility] Comment on above: Performed By: #### P PHRS ####[place] [address] Abs. Scurry 0.90 thou/cmm High 0.30-0.82 [facility] Comment on above: Performed By: #### P PHRS ####[place] [address] Abs. Neut (ANC) 4.56 thou/cmm Normal 1.78-5.38 [facility] Comment on above: Performed By: #### P PHRS ####[place] [address] Basophils/100 WBC Auto (Bld) 0.4 % Normal [facility] Comment on above: Performed By: #### P PHRS ####[place] [address] Eosinophils 0.57 thou/cmm High 0.04-0.54 [facility] Comment on above: Performed By: #### P PHRS ####[place] [address] Eosinophils/100 leukocytes 6.9 % Normal [facility] Comment on above: Performed By: #### P PHRS ####[place] [address] Erythrocyte distribution width Auto Ratio (RBC) 15.9 % High 11.6-14.4 [facility] Comment on above: Performed By: #### P PHRS ####[place] [address] Erythrocytes (RBC) 3.05 mil/cmm Low 4.63-6.08 [facility] Comment on above: Performed By: #### P PHRS ####[place] [address] Hematocrit (HCT) 26.9 % Low 40.1-51.0 [facility] Comment on above: Performed By: #### P PHRS ####[place] [address] Hemoglobin mass conc (Bld) 8.3 g/dL Low 13.7-17.5 [facility] Comment on above: Performed By: #### P PHRS ####[place] [address] Immature Grans 0.50 % Normal [facility] Comment on above: Performed By: #### P PHRS ####[place] [address] Lymphocytes 2.17 thou/cmm Normal 0.84-2.85 [facility] Comment on above: Performed By: #### P PHRS ####[place] [address] Lymphocytes/100 leukocytes 26.2 % Normal [facility] Comment on above: Performed By: #### P PHRS ####[place] [address] MCH 27.2 pg Normal 25.7-32.2 [facility] Comment on above: Performed By: #### P PHRS ####[facility] [place], [place] [address] MCHC mass conc (RBC) 30.9 % Low 32.3-36.5 [facility] Comment on above: Performed By: #### P PHRS ####[address] [address] MCV 88.2 fL Normal 83.2-95.6 [facility] Comment on above: Performed By: #### P PHRS ####[place] [address] Monocytes/100 leukocytes 10.9 % Normal [facility] Comment on above: Performed By: #### P PHRS ####[place] [address] Platelet mean volume (PMV) 9.4 fL Normal 8.7-12.0 [facility] Comment on above: Performed By: #### P PHRS ####[place] [address] Platelets 411 thou/cmm High 141-365 [facility] [facility] Comment on above: Performed By: #### P PHRS ####[place] [address] RDW SD 51.0 fl High 36.1-45.8 [facility] Comment on above: Performed By: #### P PHRS ####[place] [address] Seg Neutrophil 55.1 % Normal [facility] Comment on above: Performed By: #### P PHRS ####[place] [address] WBC (Leukocytes) 8.27 thou/cmm Normal 4.23-9.07 [facility] Comment on above: Performed By: #### P PHRS ####[place] [address] MDRD GFRon 09-25-2017 eGFR (non-black) mL/min/{1.73_m2} Normal >60mL/m in/ 1.73m2 [facility] Comment on above: Result Comment: If t he patient is , multiply the result by 1.210. Performed By: #### P PHRS ####[facility] [place], [place] [address] NURSING PROGon 09-25-2017 Protein mass conc HNO ID: [id number] thor: Vicki (Rn) KELLY Chowdhuryervice: NursingAuthor Type: Registered NurseType: Nursing Progress NoteFiled: 09/25/2017 12:52 PMNote Text:Dr. Godfrey notified that pt. Voided 250cc, then was bladder scanned and hadpost void residual of 446cc. Pt. Started on Flomax this AM. No new ordersgiven at this time. Will continue to monitor. Normal [facility] Protein mass conc HNO ID: [id number] Author: Leslee BarnettRn) Nate RN Service: Nursing Author Type: Registered Nurse Type: Nursing Progress Note Filed: 09/25/2017 3:19 AM Note Text: Cath flow administered and successful. Normal [facility] PROGRESSon 09-25-2017 Protein mass conc HNO ID: [id number] thor: Jaren (Res) EpifanioService: General SurgeryAuthor Type: [...] - Adult INTRAVENOUS ONCE TPN (1800 START)pill market editor (patient-specific) 1 Each Miscell. (Med.Supl.;Non-Drugs) PRNdiltiazem 30 [...] BALANCETEARS) 1 Drop BOTH EYES PRNphenol 1 Amenia (CHLORASEPTIC) 1 Amenia MUCOUS MEMBRANE (TOPICAL MOUTH ANDTHROAT) q 2 [...] - 09/25/17 0659 09/25/176[address] - 09/26/17 0659Shift 2025-3549 5717-2597 3536-6851 24 Hour Total 4925-4515 2636-13821017-2227 24 Hour TotalINTAKE PO 420 420 PO 420 420 Shift Total 420 420OUTPUT Urine 1 0440 216 2821 Void (ml) 782 093 4672 Straight cath (ml) 428 283 4347 Urine Not Saved 1 1 # of [...] Diagnosis Date Noted- Atrial fibrillation with RVR ([facility]) 09/12/2017- Hematemesis 09/12/2017 Overview Note: Added automatically from request for surgery [id number]- Gastric outlet obstruction 09/12/2017 Overview Note: Added automatically from request for surgery [id number]- Severe protein-calorie malnutrition (HCC) 07/03/2017Assessment/Plan72 YOM with [...] September 25, 2017 : 6:41 AM PAGER: [phone] Normal [facility] Prealbuminon 09-25-2017 Prealbumin 16.2 mg/dL Low 20.0-40.0 [facility] Comment on above: Performed By: #### P PHRS ####[address] [address] Urinalysis, reflexon 018 Reflex Comment see below Normal [facility] Comment on above: Result Comment: Refl ex to culture is not indicated based onestablished laboratory criteria. Performed By: #### P PHRS ####[address] [address] Ep Cells Urine 0.1 /hpf Normal 0.0-5.0 [facility] Comment on above: Performed By: #### P PHRS ####[facility] [place], [place] [address] Hyaline Cast 0.0 /lpf Normal 0.0-1.0 [facility] Comment on above: Performed By: #### P PHRS ####[address] [address] Urine, bacteria in sediment NONE Normal None [facility] Comment on above: Performed By: #### P PHRS ####[place] [address] Urine, erythrocytes in sediment by area 0.5 /[HPF] Normal 0.0-5.0 [facility] Comment on above: Performed By: #### P PHRS ####[place] [address] WBC (Leukocytes) 0.00 /hpf Normal 0.00-5.00 [facility] Comment on above: Performed By: #### P PHRS ####[address] [address] Bilirubin Urine Negative Normal Negative [facility] Comment on above: Performed By: #### P PHRS ####[address] [address] Hemoglobin,Urine Negative Normal Negative [facility] Comment on above: Performed By: #### P PHRS ####[address] [address] Ketone Urine Negative Normal Negative [facility] Comment on above: Performed By: #### P PHRS ####[address] [address] Nitrite reflex Negative Normal Negative [facility] Comment on above: Performed By: #### P PHRS ####[place] [address] Protein Urine Negative Normal Negative [facility] Comment on above: Performed By: #### P PHRS ####[place] [address] Specific [place], Ur 1.011 Normal 1.005-1 .03 0 [facility] Comment on above: Performed By: #### P PHRS ####[place] [address] Urine, appearance CLOUDY Normal [facility] Comment on above: Performed By: #### P PHRS ####[place] [address] Urine, color YELLOW Normal [facility] Comment on above: Performed By: #### P PHRS ####[place] [address] Urine, glucose presence Negative Normal Negative [facility] Comment on above: Performed By: #### P PHRS ####[place] [address] Urine, leukocyte esterase presence Negative Normal Negative [facility] Comment on above: Performed By: #### P PHRS ####[place] [address] Urine, pH 8.0 [pH] Normal 5.0-8.0 [facility] Comment on above: Performed By: #### P PHRS ####[place] [address] Urobilinogen,Ur 0.2 EU/dL Normal 0.0-1.0 [facility] Comment on above: Performed By: #### P PHRS ####[place] [address] Basic Panelon 09-24-2017 Creatinine 0.49 mg/dL Low 0.67-1.17 [facility] Comment on above: Performed By: #### P PHRS ####[place] [address] Glucose mass conc 110 mg/dL High 70-99 [facility] Comment on above: Performed By: #### P PHRS ####[place] [address] Urea nitrogen 9 mg/dL Normal 7-18 [facility] Comment on above: Performed By: #### P PHRS ####[place] [address] [place] [address] Anion gap 9 mmol/L Normal 8-16 [facility] Comment on above: Performed By: #### P PHRS ####[facility] [place] [address] Calcium 8.3 mg/dL Low 8.5-10.1 [facility] Comment on above: Performed By: #### P PHRS ####[facility] [place] [address] CO2 28 mmol/L Normal 21-32 [facility] Comment on above: Performed By: #### P PHRS ####[place] [address] Chloride 108 mmol/L High 98-107 [facility] Comment on above: Performed By: #### P PHRS ####[place] [address] Potassium molar conc 3.7 mmol/L Normal 3.5-5.1 [facility] Comment on above: Performed By: #### P PHRS ####[place] [address] Sodium 141 mmol/L Normal 136-145 [facility] Comment on above: Performed By: #### P PHRS ####[place] [address] Hemogram/Diffon 09-24-2017 Abs Immature Grans 0.03 thou/cmm Normal 0.00-0.05 [facility] Comment on above: Performed By: #### P PHRS ####[place] [address] Abs. Baso 0.04 thou/cmm Normal 0.01-0.08 [facility] Comment on above: Performed By: #### P PHRS ####[place] [address] Abs. Scurry 0.93 thou/cmm High 0.30-0.82 [facility] Comment on above: Performed By: #### P PHRS ####[place] [id number] Abs. Neut (ANC) 4.14 thou/cmm Normal 1.78-5.38 [facility] Comment on above: Performed By: #### P PHRS ####[place] [address] Basophils/100 WBC Auto (Bld) 0.5 % Normal [facility] Comment on above: Performed By: #### P PHRS ####[place] [address] Eosinophils 0.46 thou/cmm Normal 0.04-0.54 [facility] Comment on above: Performed By: #### P PHRS ####[place] [address] Eosinophils/100 leukocytes 5.8 % Normal [facility] Comment on above: Performed By: #### P PHRS ####[place] [address] Erythrocyte distribution width Auto Ratio (RBC) 15.8 % High 11.6-14.4 [facility] Comment on above: Performed By: #### P PHRS ####[place] [address] Erythrocytes (RBC) 2.97 mil/cmm Low 4.63-6.08 [facility] Comment on above: Performed By: #### P PHRS ####[place] [address] Hematocrit (HCT) 26.3 % Low 40.1-51.0 [facility] Comment on above: Performed By: #### P PHRS ####[place] [address] Hemoglobin mass conc (Bld) 8.2 g/dL Low 13.7-17.5 [facility] Comment on above: Performed By: #### P PHRS ####[place] [address] Immature Grans 0.40 % Normal [facility] Comment on above: Performed By: #### P PHRS ####[place] [address] Lymphocytes 2.40 thou/cmm Normal 0.84-2.85 [facility] Comment on above: Performed By: #### P PHRS ####[address] [address] Lymphocytes/100 leukocytes 30.0 % Normal [facility] Comment on above: Performed By: #### P PHRS ####[address] [address] MCH 27.6 pg Normal 25.7-32.2 [facility] Comment on above: Performed By: #### P PHRS ####[address] [address] MCHC mass conc (RBC) 31.2 % Low 32.3-36.5 [facility] Comment on above: Performed By: #### P PHRS ####[address] [address] MCV 88.6 fL Normal 83.2-95.6 [facility] Comment on above: Performed By: #### P PHRS ####[address] [address] Monocytes/100 leukocytes 11.6 % Normal [facility] Comment on above: Performed By: #### P PHRS ####[address] [address] Platelet mean volume (PMV) 9.3 fL Normal 8.7-12.0 [facility] Comment on above: Performed By: #### P PHRS ####[address] [address] Platelets 341 thou/cmm Normal 141-365 [facility] Comment on above: Performed By: #### P PHRS ####[address] [address] RDW SD 50.7 fl High 36.1-45.8 [facility] Comment on above: Performed By: #### P PHRS ####[address] [address] Seg Neutrophil 51.7 % Normal [facility] Comment on above: Performed By: #### P PHRS ####[facility] [place], [place] [address] WBC (Leukocytes) 8.00 thou/cmm Normal 4.23-9.07 [facility] Comment on above: Performed By: #### P PHRS ####[address] [address] MDRD GFRon 09-24-2017 eGFR (non-black) mL/min/{1.73_m2} Normal >60mL/m in/ 1.73m2 [facility] Comment on above: Result Comment: If t he patient is , multiply the result by 1.210. Performed By: #### P PHRS ####[address] [address] NURSING PROGon 09-24-2017 Protein mass conc HNO ID: [id number] thor: Racheal (Gregory) Magdiel, RNService: (none)Author Type: Registered NurseType: Nursing Progress NoteFiled: 09/24/2017 11:10 AMNote Text: Nursing Progress NotePatient Name: Cristina JeffreyMRN: [id number] Location: [place] [address]/[place] [address]*____ Event(s) / Intervention Note:Patient had 13 beat run of VTACH, resting in bed, asymptomatic, VSS. notified. No new orders.This note was completed by: Racheal Veloz RN Normal [facility] PROGRESSon 09-24-2017 Protein mass conc HNO ID: [id number] thor: Jaren (Rosario Rodríguez: General SurgeryAuthor Type: [...] - Adult INTRAVENOUS ONCE TPN (1800 START)pill market editor (patient-specific) 1 Each Miscell. (Med.Supl.;Non-Drugs) PRNdiltiazem 30 [...] BALANCETEARS) 1 Drop BOTH EYES PRNphenol 1 Amenia (CHLORASEPTIC) 1 Amenia MUCOUS MEMBRANE (TOPICAL MOUTH ANDTHROAT) q 2 [...] 06/03/18 0659 09/24/17 07 - 09/25/17 0659Shift 0229-4147 7371-4153 8432-9636 24 Hour Total 1376-8689 8007-03038994-5666 24 Hour TotalINTAKE Shift TotalOUTPUT Urine 605 187 6343 Void (ml) 752 262 7211 Tubes 300 300 Output ([REMOVED] GI Feed/Drain [...] Note: Added automatically from request for surgery [id number]- Gastric outlet obstruction 09/12/2017 Overview Note: Added automatically from request for surgery [id number]- Severe protein-calorie malnutrition (HCC) 07/03/2017Assessment/Plan72 YOM with gastric/duodenal ulcers, GOO, A-fib/RVR. ?s/p EGD and duodenaldilitation. Hpylori negative.??- A-fib mgnt per medicine, currently on cardizem gtt. OK for PO meds fora-fib from surgery standpoint.- protonix- NG removed- [place] CLD will adv to soft, cont TPNSIGNATURE: Jaren Godfrey MD PATIENT NAME: Cristina JeffreyDATE: September 24, 2017 : 9:21 AM PAGER: [phone] Normal [facility] Basic Panelon 09-23-2017 Creatinine 0.54 mg/dL Low 0.67-1.17 [facility] Comment on above: Performed By: #### P PHRS ####[address] [address] Anion gap 8 mmol/L Normal 8-16 [facility] Comment on above: Performed By: #### P PHRS ####[address] [address] Calcium 8.3 mg/dL Low 8.5-10.1 [facility] Comment on above: Performed By: #### P PHRS ####[address] [address] CO2 28 mmol/L Normal 21-32 [facility] Comment on above: Performed By: #### P PHRS ####[address] [address] Glucose mass conc 124 mg/dL High 70-99 [facility] Comment on above: Performed By: #### P PHRS ####[address] [address] Urea nitrogen 10 mg/dL Normal 7-18 [facility] Comment on above: Performed By: #### P PHRS ####[address] [address] Chloride 108 mmol/L High 98-107 [facility] Comment on above: Performed By: #### P PHRS ####[place] [address] Potassium molar conc 4.0 mmol/L Normal 3.5-5.1 [facility] Comment on above: Performed By: #### P PHRS ####[place] [address] Sodium 140 mmol/L Normal 136-145 [facility] Comment on above: Performed By: #### P PHRS ####[place] [address] Glucose Meteron 09-23-2017 Glucose mass conc 136 mg/dL High 70-99 [facility] Comment on above: Result Comment: GREGORY Alvarado OTIFIED Performed By: #### P PHRS ####[place] [address] Glucose mass conc 137 mg/dL High 70-99 [facility] Comment on above: Result Comment: GREGORY Alvarado OTIFIED Performed By: #### P PHRS ####[place] [address] Hemogram/Diffon 09-23-2017 Abs Immature Grans 0.07 thou/cmm High 0.00-0.05 [facility] Comment on above: Performed By: #### P PHRS ####[place] [address] Abs. Baso 0.03 thou/cmm Normal 0.01-0.08 [facility] Comment on above: Performed By: #### P PHRS ####[place] [address] Abs. Scurry 1.08 thou/cmm High 0.30-0.82 [facility] Comment on above: Performed By: #### P PHRS ####[place] [address] Abs. Neut (ANC) 5.23 thou/cmm Normal 1.78-5.38 [facility] Comment on above: Performed By: #### P PHRS ####[address] [address] Basophils/100 WBC Auto (Bld) 0.3 % Normal [facility] Comment on above: Performed By: #### P PHRS ####[address] [address] Eosinophils 0.41 thou/cmm Normal 0.04-0.54 [facility] Comment on above: Performed By: #### P PHRS ####[place] [address] Eosinophils/100 leukocytes 4.6 % Normal [facility] Comment on above: Performed By: #### P PHRS ####[place] [address] Erythrocyte distribution width Auto Ratio (RBC) 15.9 % High 11.6-14.4 [facility] Comment on above: Performed By: #### P PHRS ####[place] [address] Erythrocytes (RBC) 3.00 mil/cmm Low 4.63-6.08 [facility] Comment on above: Performed By: #### P PHRS ####[place] [address] Hematocrit (HCT) 26.6 % Low 40.1-51.0 [facility] Comment on above: Performed By: #### P PHRS ####[place] [address] Hemoglobin mass conc (Bld) 8.3 g/dL Low 13.7-17.5 [facility] Comment on above: Performed By: #### P PHRS ####[place] [address] Immature Grans 0.80 % Normal [facility] Comment on above: Performed By: #### P PHRS ####[place] [address] Lymphocytes 2.05 thou/cmm Normal 0.84-2.85 [facility] Comment on above: Performed By: #### P PHRS ####[facility] [place], [place] [address] Lymphocytes/100 leukocytes 23.1 % Normal [facility] Comment on above: Performed By: #### P PHRS ####[address] [address] MCH 27.7 pg Normal 25.7-32.2 [facility] Comment on above: Performed By: #### P PHRS ####[place] [address] MCHC mass conc (RBC) 31.2 % Low 32.3-36.5 [facility] Comment on above: Performed By: #### P PHRS ####[place] [address] MCV 88.7 fL Normal 83.2-95.6 [facility] Comment on above: Performed By: #### P PHRS ####[place] [address] Monocytes/100 leukocytes 12.2 % Normal [facility] Comment on above: Performed By: #### P PHRS ####[place] [address] Platelet mean volume (PMV) 9.4 fL Normal 8.7-12.0 [facility] Comment on above: Performed By: #### P PHRS ####[address] [address] Platelets 364 thou/cmm Normal 141-365 [facility] Comment on above: Performed By: #### P PHRS ####[address] [address] RDW SD 51.5 fl High 36.1-45.8 [facility] Comment on above: Performed By: #### P PHRS ####[address] [address] Seg Neutrophil 59.0 % Normal [facility] Comment on above: Performed By: #### P PHRS ####[place] [address] WBC (Leukocytes) 8.86 thou/cmm Normal 4.23-9.07 [facility] Comment on above: Performed By: #### P PHRS ####[facility] [place], [place] [address] MDRD GFRon 09-23-2017 eGFR (non-black) mL/min/{1.73_m2} Normal >60mL/m in/ 1.73m2 [facility] Comment on above: Result Comment: If t he patient is , multiply the result by 1.210. Performed By: #### P PHRS ####[facility] [place], [place] [address] Magnesium Bloodon 09-23-2017 Magnesium 2.1 mg/dL Normal 1.6-2.6 [facility] Comment on above: Performed By: #### P PHRS ####[address] [address] PROGRESSon 09-23-2017 Protein mass conc HNO ID: [id number] thor: Yina Steenervice: [facility] MedicineAuthor Type: PhysicianType: Progress NotesFiled: 09/23/2017 2:21 PMNote Text:INTERNAL MEDICINE PROGRESS NOTE ADMIT DATE: 09/12/2017 1:30 PMSERVICE DATE: 09/23/2017INTERVAL HISTORY:F/u : a fib, pancreatic mass, gastric outlet obstructionS: Pt tolerating clears. Anxious to try regular diet and go home JULIEN.Passing gas. No NVMEDICATIONS:Current hospital medications:Parenteral Nutrition - Adult INTRAVENOUS ONCE TPN (1800 START)Parenteral Nutrition - Adult INTRAVENOUS ONCE TPN (1800 START)pill market editor (patient-specific) 1 Each Miscell. (Med.Supl.;Non-Drugs) PRNdiltiazem 30 [...] BALANCETEARS) 1 Drop BOTH EYES PRNphenol 1 Amenia (CHLORASEPTIC) 1 Amenia MUCOUS MEMBRANE (TOPICAL MOUTH ANDTHROAT) q 2 [...] Ref Rng AND Units 09/12/2017 09/13/2017Gastrin SEE [id number] 0.0 - 35.0 U/ml 8.1CEA 0.0 - [...] discussed with: Patient, Nurse, CMRupal Robbie Yeboah [id number] Normal [facility] Protein mass conc HNO ID: [id number] thor: Jaren (Adelina) EpifanioSersiddharthe: General SurgeryAuthor Type: ResidentType: Progress NotesFiled: 09/23/2017 [...] - Adult INTRAVENOUS ONCE TPN (1800 START)pill market editor (patient-specific) 1 Each Miscell. (Med.Supl.;Non-Drugs) PRNdiltiazem 30 [...] BALANCETEARS) 1 Drop BOTH EYES PRNphenol 1 Amenia (CHLORASEPTIC) 1 Amenia MUCOUS MEMBRANE (TOPICAL MOUTH ANDTHROAT) q 2 [...] ?F)Date 09/22/176[address] - 09/23/1765809/23/17699 - 09/24/17 0659Shift 3753-9897 9363-6958 3814-6890 24 Hour Total 9169-0598 5311-94732193-8898 24 Hour TotalINTAKE TPN/PPN 1976 1976 TPN 1976 1976 Shift Total 1976 1976OUTPUT Urine 1032 925 5563 Void (ml) 100 665 765 Tube Output ([REMOVED] Indwelling Urinary Catheter 09/13/17 1145Foley 16 Fr 09/22/17 1230) 1500 1500 Tubes 350 550 900 Output (GI Feed/Drain 09/16/17 2130 Nasogastric Right Naris) 350 [id number] # of BMs Number of BMs 2 [...] September 23, 2017 : 7:17 AM PAGER: [phone] Normal [facility] Phosphorus Bloodon 8 Phosphate 3.7 mg/dL Normal 2.5-4.9 [facility] Comment on above: Performed By: #### P PHRS ####[facility] [place] [address] ABDOMEN 1 VIEWon 09-22-2017 ABDOMEN 1 VIEW Performed at [facility] APPROVED BY: BART ZEPEDA MD EXAM: ABDOMEN [...] the aorta. Included bones are unremarkable. Normal [facility] ABDOMEN 1 VIEW Performed at [facility] APPROVED BY: BART ZEPEDA MD EXAM: ABDOMEN 1 VIEW HISTORY: Adjustment of NG tube COMPARISON: 09/19/2017 FINDINGS: See impression IMPRESSION: Enteric tube is not identified with certainty. Recommend repeat chest and/or abdomen radiograph if clinically indicated. Bones and soft tissues otherwise appear generally stable. There is motion degradation. Normal [facility] Basic Panelon 09-22-2017 Creatinine 0.58 mg/dL Low 0.67-1.17 [facility] Comment on above: Performed By: #### P PHRS ####[place] [address] Anion gap 11 mmol/L Normal 8-16 [facility] Comment on above: Performed By: #### P PHRS ####[facility] [place] [address] CO2 25 mmol/L Normal 21-32 [facility] Comment on above: Performed By: #### P PHRS ####[place] [address] Calcium 8.2 mg/dL Low 8.5-10.1 [facility] Comment on above: Performed By: #### P PHRS ####[place] [address] Glucose mass conc 141 mg/dL High 70-99 [facility] Comment on above: Performed By: #### P PHRS ####[place] [address] Urea nitrogen 13 mg/dL Normal 7-18 [facility] Comment on above: Performed By: #### P PHRS ####[place] [address] Chloride 107 mmol/L Normal 98-107 [facility] Comment on above: Performed By: #### P PHRS ####[place] [address] Potassium molar conc 4.5 mmol/L Normal 3.5-5.1 [facility] Comment on above: Performed By: #### P PHRS ####[place] [address] Sodium 138 mmol/L Normal 136-145 [facility] Comment on above: Performed By: #### P PHRS ####[place] [address] CASE MANAGEMon 09-22-2017 CASE MANAGEM HNO ID: [id number] thor: Lakia (Rn) Mindy, KELLYervice: Care ManagementAuthor [...] is out andtolerating PO we can have [place] review to see if they can accept, as ptwill not go any where elseSIGNATURE: Lakia Guillen RN PATIENT NAME: Cristina JeffreyDATE: September 22, 2017 : 4:10 PM PAGER/CONTACT #: [phone] Normal [facility] Hemogram/Diffon 09-22-2017 Abs Immature Grans 0.13 thou/cmm High 0.00-0.05 [facility] Comment on above: Performed By: #### P PHRS ####[place] [address] Abs. Baso 0.03 thou/cmm Normal 0.01-0.08 [facility] Comment on above: Performed By: #### P PHRS ####[place] [address] Abs. Scurry 1.28 thou/cmm High 0.30-0.82 [facility] Comment on above: Performed By: #### P PHRS ####[place] [address] Abs. Neut (ANC) 6.77 thou/cmm High 1.78-5.38 [facility] Comment on above: Performed By: #### P PHRS ####[place] [address] Basophils/100 WBC Auto (Bld) 0.3 % Normal [facility] Comment on above: Performed By: #### P PHRS ####[place] [address] Eosinophils 0.32 thou/cmm Normal 0.04-0.54 [facility] Comment on above: Performed By: #### P PHRS ####[place] [address] Eosinophils/100 leukocytes 3.1 % Normal [facility] Comment on above: Performed By: #### P PHRS ####[place] [address] Erythrocyte distribution width Auto Ratio (RBC) 15.9 % High 11.6-14.4 [facility] Comment on above: Performed By: #### P PHRS ####[place] [address] Erythrocytes (RBC) 2.98 mil/cmm Low 4.63-6.08 [facility] Comment on above: Performed By: #### P PHRS ####[place] [address] Hematocrit (HCT) 26.3 % Low 40.1-51.0 [facility] Comment on above: Performed By: #### P PHRS ####[place] [address] Hemoglobin mass conc (Bld) 8.2 g/dL Low 13.7-17.5 [facility] Comment on above: Performed By: #### P PHRS ####[place] [address] Immature Grans 1.30 % Normal [facility] Comment on above: Performed By: #### P PHRS ####[place] [address] Lymphocytes 1.70 thou/cmm Normal 0.84-2.85 [facility] Comment on above: Performed By: #### P PHRS ####[place] [address] Lymphocytes/100 leukocytes 16.6 % Normal [facility] Comment on above: Performed By: #### P PHRS ####[place] [address] MCH 27.5 pg Normal 25.7-32.2 [facility] Comment on above: Performed By: #### P PHRS ####[place] [address] MCHC mass conc (RBC) 31.2 % Low 32.3-36.5 [facility] Comment on above: Performed By: #### P PHRS ####[place] [address] MCV 88.3 fL Normal 83.2-95.6 [facility] Comment on above: Performed By: #### P PHRS ####[place] [address] Monocytes/100 leukocytes 12.5 % Normal [facility] Comment on above: Performed By: #### P PHRS ####[place] [address] Platelet mean volume (PMV) 9.4 fL Normal 8.7-12.0 [facility] Comment on above: Performed By: #### P PHRS ####[place] [address] Platelets 373 thou/cmm High 141-365 [facility] Comment on above: Performed By: #### P PHRS ####[place] [address] RDW SD 50.4 fl High 36.1-45.8 [facility] Comment on above: Performed By: #### P PHRS ####[place] [address] Seg Neutrophil 66.2 % Normal [facility] Comment on above: Performed By: #### P PHRS ####[place] [address] WBC (Leukocytes) 10.23 thou/cmm High 4.23-9.07 [facility] Comment on above: Performed By: #### P PHRS ####[place] [address] MDRD GFRon 09-22-2017 eGFR (non-black) mL/min/{1.73_m2} Normal >60mL/m in/ 1.73m2 [facility] Comment on above: Result Comment: If t he patient is , multiply the result by 1.210. Performed By: #### P PHRS ####[facility] [place], [place] [address] Magnesium Bloodon 09-22-2017 Magnesium 1.9 mg/dL Normal 1.6-2.6 [facility] Comment on above: Performed By: #### P PHRS ####[facility] [place], [place] [address] NURSING PROGon 09-22-2017 Protein mass conc HNO ID: [id number] thor: KELLY Obrien Rnervice: NursingAuthor Type: Registered NurseType: Nursing Progress NoteFiled: 09/22/2017 6:32 AMNote Text:Xray result suggests advancement. Notified Dr. Sukhwinder Mccloud with surgery. ordered RN to advance NG tube 7 cm. stated no repeat xraynecessary. Normal [facility] Protein mass conc HNO ID: [id number] thor: KELLY Obrien Rnervice: NursingAuthor Type: Registered NurseType: Nursing Progress NoteFiled: 09/22/2017 5:32 AMNote Text:Radiology came to do xray. Tech stated that she could tell NG tube was notpast diaphragm. Paged Dr. Sukhwinder Mccloud. Dr came to look at patient. OrderedRN to advance NG tube to 60, then redo xray. NG tube advanced to 60; xraycompleted. Awaiting results and Dr's orders. Normal [facility] Protein mass conc HNO ID: [id number] thor: KELLY Obrien Rnervice: NursingAuthor Type: Registered NurseType: Nursing Progress NoteFiled: 09/22/2017 4:52 AMNote Text:Inserted NG tube to 50, per orders from Dr. Mccloud with surgery. AwaitingKUB to confirm placement. Normal [facility] Protein mass conc HNO ID: [id number] Author: Michelle Sampson RN Service: Nursing Author Type: Registered Nurse Type: Nursing Progress Note Filed: 09/21/2017 10:45 PM Note Text: Pt 24-hr TPN started at 2230 after pt arrived from PACU Normal [facility] Protein mass conc HNO ID: [id number] thor: Michelle (Rn) KELLY Sampsonervice: NursingAuthor Type: Registered NurseType: Nursing Progress NoteFiled: 09/21/2017 10:15 PMNote Text:RN told in report pt's Cardizem running at 5 mg/hr. Pt arrived to floorwith Cardizem running at 10 mg/hr. Called Esdras RN in PACU to clarify. RNstated gave orders for him to increase Cardizem to 10 mg/hr. Esdras RNstated he would chart the increase in MAR. Normal [facility] PROGRESSon 09-22-2017 Protein mass conc HNO ID: [id number] thor: Yina Sawyer PatelService: Hospital MedicineAuthor Type: PhysicianType: Progress NotesFiled: 09/22/2017 5:14 PMNote Text:INTERNAL MEDICINE PROGRESS NOTE ADMIT DATE: 09/12/2017 1:30 PMSERVICE DATE: 09/22/2017INTERVAL HISTORY:F/u : a fib, pancreatic mass, gastric outlet obstructionS: Pt has no complaints. Anxious to get NG out and be able to eat.MEDICATIONS:Current hospital medications:Parenteral Nutrition - Adult INTRAVENOUS ONCE TPN (1800 START)pill market editor (patient-specific) 1 Each Miscell. (Med.Supl.;Non-Drugs) PRNdiltiazem 30 [...] BALANCETEARS) 1 Drop BOTH EYES PRNphenol 1 Amenia (CHLORASEPTIC) 1 Amenia MUCOUS MEMBRANE (TOPICAL MOUTH ANDTHROAT) q 2 [...] Ref Rng AND Units 09/12/2017 09/13/2017Gastrin SEE [id number] 0.0 - 35.0 U/ml 8.1CEA 0.0 - [...] with: Patient, Nurse, CMRupal Robbie Yeboah Physician [facility] Protein mass conc HNO ID: [id number] thor: Ernestina (Adelina) HealdService: General SurgeryAuthor Type: [...] AM Elect verito Surgery Progress NoteSERVICE DATE: [id number]:No overnight events. Denies n/v/f/c/sob/cp. + Flatus. No BMNPO/TPNOBJECTIVE:Temp (24hrs), Av.4 ?C (97.5 ?F), Min:36 ?C (96.8 ?F), Max:36.6 ?C(97.9 ?F)BP 107/57 Pulse 82 Temp 36.2 ?C (97.2 ?F) (Oral) Resp 18 Ht175.3 cm (5' 9.02") Wt 77.8 kg (171 lb 8.3 oz) SpO2 100% BMI25.32 kg/m?O2 Therapy: Nasal CannulaDate 09/21/17 0700 - 09/22/17 0659 09/22/17 07 - 09/23/17 0659Shift 2488-3519 3319-4205 0244-0215 24 Hour Total 5191-3099 8263-81083492-3413 24 Hour TotalINTAKE IV 2230 2230 LR 200 200 OR Crystalloid intake (mL) 1999 1999 Diltiazem Volume 30 30 TPN/PPN 0 0 TPN 0 0 Shift Total 2230 2230OUTPUT Urine 247 432 3523 1150 OR Urine Output 600 600 Tube Output ( Indwelling Urinary Catheter 09/13/17 1145 Miranda 16Fr) 1150 1150 Tubes 113 341 2477 Output (GI Feed/Drain 09/16/17 2130 Nasogastric Right Naris) 769 [id number] Blood 50 50 Estimated Blood loss 50 50 Shift Total 560 510 5596 1150 1150Weight (kg) 78.9 78.9 78.9 78.9 77.8 77.8 77.8 77.8Current Facility-Administered Medications:pill market editor (patient-specific) 1 Each Miscell. (Med.Supl.;Non-Drugs) PRNParenteral Nutrition [...] BALANCETEARS) 1 Drop BOTH EYES PRNphenol 1 [place] (CHLORASEPTIC) 1 [place] MUCOUS MEMBRANE (TOPICAL MOUTH ANDTHROAT) q 2 H PRNbenzocaine-menthol 1 Lozenge (CEPACOL) 1 Lozenge MUCOUS MEMBRANE (TOPICALMOUTH AND THROAT) q 2 H PRNondansetron (PF) 4 mg injection (ZOFRAN) 4 mg INTRAVENOUS q 6 H PRNdilTIAZem 100 mg in D5W 100 mL ADD-[place] (CARDIZEM) 5-20 mg/hrINTRAVENOUS CONTINUOUS0.9% NaCl 10 mL [...] 26.3* 29.5*PLT 373* 403*Exam:GENERAL: No distress, Alert.NEURO: RQPGGn4PIVAN: normocephalic, atraumaticLUNGS: Unlabored breathingCARDIAC: Regular rate and rhythm as aboveABDOMEN: soft, min dist, mild diffuse TTP, NGT in place. Incisions c/d/I.EXTREMITIES: JERONIMO, No deformities, No edemaSKIN: Skin color, texture, turgor normal, No rashes or lesionsASSESSMENT AND PLAN:Active Hospital Problems Diagnosis Date Noted- Atrial fibrillation with RVR (HCC) 09/12/2017- Hematemesis 09/12/2017 Overview Note: Added automatically from request for surgery [id number]- Gastric outlet obstruction 09/12/2017 Overview Note: Added automatically from request for surgery [id number]- Severe protein-calorie malnutrition (HCC) 07/03/201772 YOM with gastric/duodenal ulcers, GOO, A-fib/RVR. s/p EGD and duodenaldilitation. Hpylori negative.?- A-fib mgnt per medicine, currently on cardizem gtt. OK for PO meds fora-fib from surgery standpoint.- protonix- NGT to LIWS- NPO/TPN- Discontinue miranda catheter?Ernestina Vega MDGeneral Surgery PGY-4June 2017 10:24 [facility] #: Pager: [phone] General Surgery Service Pager:For questions or concerns Mon-Fri 6a-5p please page [phone].After 5pm and on Weekends and Holidays, please page [phone] if in ICU or [phone] on RNF. Normal [facility] Protein mass conc HNO ID: [id number] thor: Giselle (Telegraphic Typewriter Operator) CroomService: ElectrophysiologyAuthor Type: Nurse PractitionerType: Progress NotesFiled: [...] Temp Temp src Pulse Resp SpO2 Height Ozkoeh88/01/18 1003 107/57 36.2 ?C (97.2 ?F) Oral [...] BALANCETEARS) 1 Drop BOTH EYES PRNphenol 1 [place] (CHLORASEPTIC) 1 [place] MUCOUS MEMBRANE (TOPICAL MOUTH ANDTHROAT) q 2 H PRNbenzocaine-menthol 1 Lozenge (CEPACOL) 1 Lozenge MUCOUS MEMBRANE (TOPICALMOUTH AND THROAT) q 2 H PRNondansetron (PF) 4 mg injection (ZOFRAN) 4 mg INTRAVENOUS q 6 H PRNdilTIAZem 100 mg in D5W 100 mL ADD-[place] (CARDIZEM) 5-20 mg/hrINTRAVENOUS CONTINUOUS0.9% NaCl 10 mL [...] 107CO2 25CA 8.2*MG 1.9Last Lab Drawn:LDL Chol, Cobb 110 02/23/2010ssessment/PlanActiv e Problems: Severe protein-calorie malnutrition [...] Risk ) 40 mg SUBCUTANEOUS DAILY 09/12/17 0806 --SIGNATURE: Michelle Weeks, MSN, BILLING COORDINATOR.CAR PILOT PATIENT NAME: Cristina MooreTE: September 22, 2017 : 10:13 AM PAGER/CONTACT #: [phone] Normal [facility] Phosphorus Bloodon 8 Phosphate 3.2 mg/dL Normal 2.5-4.9 [facility] Comment on above: Performed By: #### P PHRS ####[place] [address] THERAPY NTon 09-22-2017 THERAPY NT HNO ID: [id number] thor: Ana Cristina (Pt) Nicciervice: Physical TherapyAuthor Type: Physical TherapistType: Therapy (PT/OT/Speech/Resp)Filed: 09/22/2017 11:13 AMNote Text:PHYSICAL THERAPY MISSED VISITSERVICE DATE: 09/22/2017SERVICE TIME: 1112 to 1112ROOM: [id number] Treatment. Patient not seen due to Declined. Patient declinesfurther therapy services while here at the hospital. Will sign off perpatient request. [facility]SIGNATURE: Ana Cristina Walker PT PATIENT NAME: Cristina Camp: September 22, 2017 : 11:12 AM PAGER/CONTACT #: [phone] Normal [facility] ANES Paras 09-21-2017 ANES POST HNO ID: [id number] thor: Flex Tristanervice: AnesthesiologyAuthor Type: PhysicianType: Anesthesia [...] 21, 2017 : 6:38 PM PAGER/CONTACT #: [facility] ANES PREOPon 09-21-2017 ANES PREOP HNO ID: [id number] thor: Ivan ColegeService: AnesthesiologyAuthor Type: PhysicianType: Anesthesia [...] tablet by mouthtwice daily for 14 days.Vit A,C,D-Eabx-Jsybzc (PRESERVISION AREDS) 14,320-226-200 oumh-du-qkzwuvz Take 1 capsule by mouth twice daily.albuterol [...] 1719[MAR Hold due to Transfer] phenol 1 Amenia (CHLORASEPTIC) 1 [place]enia MUCOUSMEMBRANE (TOPICAL MOUTH AND THROAT) q 2 H PRN Safal N (Res) Avalos 1 [place]enia at09/14/17 1105[MAR Hold due to Transfer] benzocaine-menthol [...] dilTIAZem 100 mg in D5W 100 mL ADD-[place](CARDIZEM) 5-20 mg/hr INTRAVENOUS CONTINUOUS Neemaliseth QuinterohVitebskiy Last [...] September 21, 2017 : 1:32 PM CSN: [id number] Normal [facility] Basic Panelon 09-21-2017 Creatinine 0.56 mg/dL Low 0.67-1.17 [facility] Comment on above: Performed By: #### P PHRS ####[place] [address] Anion gap 8 mmol/L Normal 8-16 [facility] Comment on above: Performed By: #### P PHRS ####[place] [address] CO2 26 mmol/L Normal 21-32 [facility] Comment on above: Performed By: #### P PHRS ####[place] [address] Glucose mass conc 115 mg/dL High 70-99 [facility] Comment on above: Performed By: #### P PHRS ####[place] [address] Urea nitrogen 12 mg/dL Normal 7-18 [facility] Comment on above: Performed By: #### P PHRS ####[address] [address] Calcium 8.8 mg/dL Normal 8.5-10.1 [facility] Comment on above: Performed By: #### P PHRS ####[place] [address] Chloride 105 mmol/L Normal 98-107 [facility] Comment on above: Performed By: #### P PHRS ####[place] [address] Potassium molar conc 4.1 mmol/L Normal 3.5-5.1 [facility] Comment on above: Performed By: #### P PHRS ####[place] [address] Sodium 135 mmol/L Low 136-145 [facility] Comment on above: Performed By: #### P PHRS ####[place] [address] CASE MANAGEMon 09-21-2017 CASE MANAGEM HNO ID: [id number] thor: Lakia (Rn) Mindy RNService: Care ManagementAuthor Type: Registered NurseType: Care Mgt Progress NoteFiled: 09/21/2017 10:51 AMNote Text:CARE MANAGEMENT PROGRESS NOTESERVICE DATE: 09/21/2017SERVICE TIME: 10:49 AM LOS: 9 daysNeeds Prior to Discharge: Accepting Facility;DischargeTransportat ion;OT/PT EvaluationTo O.R. today with Dr. Foster. Acceptance pending from [place], they willreview closer to [place]. CM follows. Pt will not need precert once acceptedSIGNATURE: Lakia Guillen RN PATIENT NAME: Cristina JeffreyDATE: September 21, 2017 : 10:49 AM PAGER/CONTACT #: [phone] Normal [facility] Glucose Meteron 09-21-2017 Glucose mass conc 140 mg/dL High 70-99 [facility] Comment on above: Result Comment: RN N OTIFIED Performed By: #### P PHRS ####[place] [address] Hemogram/Diffon 09-21-2017 Abs Immature Grans 0.12 thou/cmm High 0.00-0.05 [facility] Comment on above: Performed By: #### P PHRS ####[place] [address] Abs. Baso 0.05 thou/cmm Normal 0.01-0.08 [facility] Comment on above: Performed By: #### P PHRS ####[place] [address] Abs. Scurry 1.29 thou/cmm High 0.30-0.82 [facility] Comment on above: Performed By: #### P PHRS ####[place] [address] Abs. Neut (ANC) 5.94 thou/cmm High 1.78-5.38 [facility] Comment on above: Performed By: #### P PHRS ####[place] [address] Basophils/100 WBC Auto (Bld) 0.5 % Normal [facility] Comment on above: Performed By: #### P PHRS ####[address] [address] Eosinophils 0.47 thou/cmm Normal 0.04-0.54 [facility] Comment on above: Performed By: #### P PHRS ####[place] [address] Eosinophils/100 leukocytes 4.7 % Normal [facility] Comment on above: Performed By: #### P PHRS ####[place] [address] Erythrocyte distribution width Auto Ratio (RBC) 15.9 % High 11.6-14.4 [facility] Comment on above: Performed By: #### P PHRS ####[place] [address] Erythrocytes (RBC) 3.41 mil/cmm Low 4.63-6.08 [facility] Comment on above: Performed By: #### P PHRS ####[place] [address] Hematocrit (HCT) 29.5 % Low 40.1-51.0 [facility] Comment on above: Performed By: #### P PHRS ####[place] [address] Hemoglobin mass conc (Bld) 9.5 g/dL Low 13.7-17.5 [facility] Comment on above: Performed By: #### P PHRS ####[place] [address] Immature Grans 1.20 % Normal [facility] Comment on above: Performed By: #### P PHRS ####[place] [address] Lymphocytes 2.14 thou/cmm Normal 0.84-2.85 [facility] Comment on above: Performed By: #### P PHRS ####[place] [address] Lymphocytes/100 leukocytes 21.4 % Normal [facility] Comment on above: Performed By: #### P PHRS ####[facility] [place], [place] [address] MCH 27.9 pg Normal 25.7-32.2 [facility] Comment on above: Performed By: #### P PHRS ####[address] [address] MCHC mass conc (RBC) 32.2 % Low 32.3-36.5 [facility] Comment on above: Performed By: #### P PHRS ####[address] [address] MCV 86.5 fL Normal 83.2-95.6 [facility] Comment on above: Performed By: #### P PHRS ####[place] [address] Monocytes/100 leukocytes 12.9 % Normal [facility] Comment on above: Performed By: #### P PHRS ####[place] [address] Platelet mean volume (PMV) 9.3 fL Normal 8.7-12.0 [facility] Comment on above: Performed By: #### P PHRS ####[address] [address] Platelets 403 thou/cmm High 141-365 [facility] Comment on above: Performed By: #### P PHRS ####[address] [address] RDW SD 50.5 fl High 36.1-45.8 [facility] Comment on above: Performed By: #### P PHRS ####[address] [address] Seg Neutrophil 59.3 % Normal [facility] Comment on above: Performed By: #### P PHRS ####[address] [address] WBC (Leukocytes) 10.02 thou/cmm High 4.23-9.07 [facility] Comment on above: Performed By: #### P PHRS ####[address] [place], [place] [address] MDRD GFRon 09-21-2017 eGFR (non-black) mL/min/{1.73_m2} Normal >60mL/m in/ 1.73m2 [facility] Comment on above: Result Comment: If t he patient is , multiply the result by 1.210. Performed By: #### P PHRS ####[facility] [place], [place] [address] Magnesium Bloodon 09-21-2017 Magnesium 2.0 mg/dL Normal 1.6-2.6 [facility] Comment on above: Performed By: #### P PHRS ####[address] [address] NURSING PROGon 09-21-2017 Protein mass conc HNO ID: [id number] thor: Esdras BarnettRn) KELLY Oconnellervice: NursingAuthor Type: Registered NurseType: Nursing Progress NoteFiled: 09/21/2017 9:49 PMNote Text:Dr mack wanted rn to call cardiac physician about pt rate of 115 andcardizem gtt increase and to see if it is ok to transfer pt back to [facility] spoke to dr hough about pt and he said it would be ok to transferpt, dr mack cleared pt to leave as well Pt off floor at 2145 [facility] Protein mass conc HNO ID: [id number] thor: Cam BarnettRn) KELLY Reeseervice: (none)Author Type: Registered NurseType: Nursing Progress NoteFiled: 09/21/2017 1:30 AMNote Text:Spoke with general surgery resident (pager #[phone]) regarding orders fromDr. Foster for lovenox, Invanz and LR pre-op. Confirmed that these orders arefor 09/21 in pre-op. Normal [facility] NUTRITIONon 09-21-2017 NUTRITION HNO ID: [id number] thor: Trish Gaming) Tom RDService: NST-Nutrition Support [...] SUPPORT TEAM PROGRESS NOTEPATIENT NAME: Cristina JeffreyN: [id number] OF : 1945DATE: 09/21/2017Nutritional Status: ?SEVERE PROTEIN-CALORIE [...] (5' 9.02") Wt 78.9 kg (174 lb) MnE974% BMI 25.68 kg/m?Current Weight: Weight: 78.9 kg [...] Santos, CLAYTON, LD, CNSCPager: [phone]: 3 Normal [facility] OPERATIVE NOon 09-21-2017 OPERATIVE NO HNO ID: [id number] thor: Moises Levine (Fel): General SurgeryAuthor Type: FellowType: Operative ReportFiled: 09/21/2017 9:19 PMNote Text: At testation signed by Venus Foster at 09/22/2017 2:57 AMI was present for the critical portions of the procedure and was immediatelyavailable to provide assistance. I agree with the residents operativedictation.Leigh Quinn 2017 2:57 AM OPERA TIVE/PROCEDURE REPORTLOG ID: [id number]/Procedure Date: 09/21/2017Incision/Procedure Start Time: 3:37 PMIncision Close/Procedure End Time: 6:28 PMSurgeon(s)/Proceduralist(s) and Clinical Nursing Manager(s): * Venus Ali - Primary * Moises [...] 21, 2017 : 9:10 PM PAGER/CONTACT #: [phone] [facility] PROGRESSon 09-21-2017 Protein mass conc HNO ID: [id number] thor: Yina Steenervice: [facility] MedicineAuthor Type: PhysicianType: Progress NotesFiled: 09/21/2017 5:24 PMNote Text:Pt in OR all day. Pt begin transfer to Surgery service after OR. Willsee patient tomorrow as consultYina Avalos MD [facility] Protein mass conc HNO ID: [id number] thor: Pierce (Adelina) Landonervice: General SurgeryAuthor Type: ResidentType: Progress NotesFiled: 09/21/2017 [...] 09/21/17 0659 09/21/17 07 - 09/22/17 0659Shift 3069-2175 0644-5707 9311-1764 24 Hour Total 1551-4754 7634-26135084-6912 24 Hour TotalINTAKE IV 37 37 Diltiazem Volume 37 37 TPN/PPN 783 783 TPN 783 783 Shift Total 820 820OUTPUT Urine 400 1400 1800 Tube Output ( Indwelling Urinary Catheter 09/13/17 1145 Miranda 16Fr) 400 1400 1800 Tubes 250 650 900 Output (GI Feed/Drain 09/16/17 2130 Nasogastric Right Naris) 250 279146 # of BMs Number of BMs 3 [...] BALANCETEARS) 1 Drop BOTH EYES PRNphenol 1 [place] (CHLORASEPTIC) 1 [place] MUCOUS MEMBRANE (TOPICAL MOUTH ANDTHROAT) q 2 H PRNbenzocaine-menthol 1 Lozenge (CEPACOL) 1 Lozenge MUCOUS MEMBRANE (TOPICALMOUTH AND THROAT) q 2 H PRNondansetron (PF) 4 mg injection (ZOFRAN) 4 mg INTRAVENOUS q 6 H PRNdilTIAZem 100 mg in D5W 100 mL ADD-[place] (CARDIZEM) 5-20 mg/hrINTRAVENOUS CONTINUOUS0.9% NaCl 10 mL [...] 28.7*PLT 403* 445* 428*Exam:GENERAL: No distress, AlertNEURO: [id number]: normocephalic, atraumaticLUNGS: Unlabored breathingCARDIAC: Regular rate and rhythm as aboveABDOMEN: soft, min dist, min TTP epigastrum. NGT in place.EXTREMITIES: JERONIMO, No deformities, No edemaSKIN: Skin color, texture, turgor normal, No rashes or lesionsASSESSMENT AND PLAN:Active Hospital Problems Diagnosis Date Noted- Atrial fibrillation with RVR (HCC) 09/12/2017- Hematemesis 09/12/2017 Overview Note: Added automatically from request for surgery [id number]- Gastric outlet obstruction 09/12/2017 Overview Note: Added automatically from request for surgery [id number]- Severe protein-calorie malnutrition (HCC) 07/03/201772 YOM with gastric/duodenal ulcers, GOO, A-fib/RVR. s/p EGD and duodenaldilitation. Hpylori negative.?- A-fib mgnt per medicine, currently on cardizem gtt- protonix- NGT- NPO/TPN- surgery today w/ Dr. Foster. Consent signed.?Pierce Montiel MDGeneashtabula county medical center Surgery Chief ResidentMay 2017 6:46 [facility] #: [facility] General Surgery Service Pager:For questions or concerns Mon-Fri 6a-5p please page [phone].After 5pm and on Weekends and Holidays, please page [phone] if in ICU or 2174if on RNF. Normal [facility] Phosphorus Bloodon 8 Phosphate 4.1 mg/dL Normal 2.5-4.9 [facility] Comment on above: Performed By: #### P PHRS ####[place] [address] Prealbuminon 09-21-2017 Prealbumin 20.1 mg/dL Normal 20.0-40.0 [facility] Comment on above: Performed By: #### P PHRS ####[place] [address] Surgical Tissue Examon 09-21 Surgical Tissue Exam Test performed at [place] [address]NAME: RIGOBERTO JEFFREYGHT [id number] REQUESTING: COLLETTE QUINN TO: YINA GARCIA DIAGNOSIS:A) [...] 16:27PRINTED: 09/25/2017 Page 1 of 1 Normal [facility] Comment on above: Performed By: #### P PHRS ####[place] [address] Basic Panelon 09-20-2017 Creatinine 0.53 mg/dL Low 0.67-1.17 [facility] Comment on above: Performed By: #### P T ####[facility] [place] [address] Urea nitrogen 14 mg/dL Normal 7-18 [facility] Comment on above: Performed By: #### P T ####[facility] [place] [address] Anion gap 9 mmol/L Normal 8-16 [facility] Comment on above: Performed By: #### P T ####[facility] [place] [address] Calcium 8.6 mg/dL Normal 8.5-10.1 [facility] Comment on above: Performed By: #### P T ####[place] [address] CO2 27 mmol/L Normal 21-32 [facility] Comment on above: Performed By: #### P T ####[place] [address] Glucose mass conc 99 mg/dL Normal 70-99 [facility] Comment on above: Performed By: #### P T ####[place] [address] Chloride 105 mmol/L Normal 98-107 [facility] Comment on above: Performed By: #### P T ####[place] [address] Potassium molar conc 4.2 mmol/L Normal 3.5-5.1 [facility] Comment on above: Performed By: #### P T ####[place] [address] Sodium 137 mmol/L Normal 136-145 [facility] Comment on above: Performed By: #### P T ####[place] [address] CHEST 1 VIEWon 09-20-2017 CHEST 1 VIEW Performed at [facility] APPROVED BY: Evans Henderson MD EXAM TITLE: CHEST 1 VIEW DATE: 09/20/2017 17:54 INDICATION: Shortness of breath and chest pain. History of atrial fibrillation. COMPARISON: 09/19/2017 Portable frontal view of the chest shows overlying piggyback clerk leads. An enteric tube is seen passing into the stomach. Right-sided PICC line is noted with tip in the mid superior vena cava. Heart size is normal. The lungs are clear. No infiltrates or effusions. IMPRESSION: Lines and tubes as noted. Lungs are clear. Normal [facility] Fecal Occult Bloodon 018 Fecal Occult Blood Negative Normal NEGATIVE [facility] [facility] Comment on above: Performed By: #### P T ####[place] [address] Hemogram/Diffon 09-20-2017 Abs Immature Grans 0.14 thou/cmm High 0.00-0.05 [facility] Comment on above: Performed By: #### P T ####[place] [address] Abs. Baso 0.04 thou/cmm Normal 0.01-0.08 [facility] Comment on above: Performed By: #### P T ####[place] [address] Abs. Scurry 1.27 thou/cmm High 0.30-0.82 [facility] Comment on above: Performed By: #### P T ####[place] [address] Abs. Neut (ANC) 5.94 thou/cmm High 1.78-5.38 [facility] Comment on above: Performed By: #### P T ####[place] [address] Basophils/100 WBC Auto (Bld) 0.4 % Normal [facility] Comment on above: Performed By: #### P T ####[place] [address] Eosinophils 0.41 thou/cmm Normal 0.04-0.54 [facility] Comment on above: Performed By: #### P T ####[place] [address] Eosinophils/100 leukocytes 4.0 % Normal [facility] Comment on above: Performed By: #### P T ####[facility] [place] [address] Erythrocyte distribution width Auto Ratio (RBC) 15.9 % High 11.6-14.4 [facility] Comment on above: Performed By: #### P T ####[place] [address] Erythrocytes (RBC) 3.44 mil/cmm Low 4.63-6.08 [facility] Comment on above: Performed By: #### P T ####[place] [address] Hematocrit (HCT) 29.7 % Low 40.1-51.0 [facility] Comment on above: Performed By: #### P T ####[place] [address] Hemoglobin mass conc (Bld) 9.5 g/dL Low 13.7-17.5 [facility] Comment on above: Performed By: #### P T ####[place] [address] Immature Grans 1.40 % Normal [facility] Comment on above: Performed By: #### P T ####[place] [address] Lymphocytes 2.46 thou/cmm Normal 0.84-2.85 [facility] Comment on above: Performed By: #### P T ####[place] [address] Lymphocytes/100 leukocytes 24.0 % Normal [facility] Comment on above: Performed By: #### P T ####[place] [address] MCH 27.6 pg Normal 25.7-32.2 [facility] Comment on above: Performed By: #### P T ####[place] [address] MCHC mass conc (RBC) 32.0 % Low 32.3-36.5 [facility] Comment on above: Performed By: #### P T ####[address] [place] [address] MCV 86.3 fL Normal 83.2-95.6 [facility] Comment on above: Performed By: #### P T ####[facility] [place], [place] [address] Monocytes/100 leukocytes 12.4 % Normal [facility] Comment on above: Performed By: #### P T ####[address] [address] Platelet mean volume (PMV) 9.5 fL Normal 8.7-12.0 [facility] Comment on above: Performed By: #### P T ####[address] [address] Platelets 445 thou/cmm High 141-365 [facility] Comment on above: Performed By: #### P T ####[address] [address] RDW SD 50.3 fl High 36.1-45.8 [facility] Comment on above: Performed By: #### P T ####[address] [address] Seg Neutrophil 57.8 % Normal [facility] Comment on above: Performed By: #### P T ####[address] [address] WBC (Leukocytes) 10.27 thou/cmm High 4.23-9.07 [facility] Comment on above: Performed By: #### P T ####[address] [address] MDRD GFRon 09-20-2017 eGFR (non-black) mL/min/{1.73_m2} Normal >60mL/m in/ 1.73m2 [facility] Comment on above: Result Comment: If t he patient is , multiply the result by 1.210. Performed By: #### P T ####[address] [address] Magnesium Bloodon 09-20-2017 Magnesium 2.1 mg/dL Normal 1.6-2.6 [facility] Comment on above: Performed By: #### P T ####[facility] [place] [address] NURSING PROGon 09-20-2017 Protein mass conc HNO ID: [id number] thor: Nishi BarnettRn) Rich RNService: NursingAuthor Type: Registered NurseType: Nursing Progress NoteFiled: 09/20/2017 7:53 PMNote Text: Nursing Progress NotePatient Name: Cristina JeffreyMRN: [id number] Location: [place] [address]/[place] [address]*____ Patient complaining of right sided chest pain below right breast thatradiates to scapula. Patient states pain is exacerbated when taking abreath. Describes the pain as aching. Notified Dr. Avalos. Order for STATportable chest x ray placed. Will continue to monitor.This note was completed by: Nishi Villanueva RN [facility] NUTRITIONon 09-20-2017 NUTRITION HNO ID: [id number] thor: Trish Gaming) OUMOU Santoservice: NST-Nutrition Support [...] SUPPORT TEAM PROGRESS NOTEPATIENT NAME: Cristina JeffreyMRN: [id number] OF : 1945DATE: 09/20/2017Nutritional Status: ?SEVERE PROTEIN-CALORIE [...] Santos, RD, LD, CNSCPager: [phone]: 3 Normal [facility] PROGRESSon 09-20-2017 Protein mass conc HNO ID: [id number] thor: Yina Sawyer PatelService: Hospital MedicineAuthor Type: [...] BALANCETEARS) 1 Drop BOTH EYES PRNphenol 1 [place] (CHLORASEPTIC) 1 [place] MUCOUS MEMBRANE (TOPICAL MOUTH ANDTHROAT) q 2 H PRNbenzocaine-menthol 1 Lozenge (CEPACOL) 1 Lozenge MUCOUS MEMBRANE (TOPICALMOUTH AND THROAT) q 2 H PRNondansetron (PF) 4 mg injection (ZOFRAN) 4 mg INTRAVENOUS q 6 H PRNdilTIAZem 100 mg in D5W 100 mL ADD-[place] (CARDIZEM) 5-20 mg/hrINTRAVENOUS CONTINUOUS0.9% NaCl 10 mL [...] non-tender, non-distendedExt: no pitting edemaLAB DATA:CBC:Recent Labs 09/20/1803/476164 05/25/077934 05/24/961606NTV 10.27* 8.98 9.34* 8.16 7.86 7.72 9.11* [...] Ref Rng AND Units 09/12/2017 09/13/2017Gastrin SEE [id number] 0.0 - 35.0 U/ml 8.1CEA 0.0 - [...] Patient, Nurse - Vignesh Almodovar Physician Normal [facility] Protein mass conc HNO ID: [id number] thor: Giselle (Luisito) Piyushervice: ElectrophysiologyAuthor Type: Nurse PractitionerType: Progress NotesFiled: 09/20/2017 1:14 PMNote Text:Cristina Jeffrey has persistent atrial fibrillation heart rates on Cardizemdrip, IV digoxin and IV metoprolol are 89-99 bpm. EP is monitoringperipherally.Ellen Weeks, MSN, BILLING COORDINATOR.CAR PILOT Normal [facility] Protein mass conc HNO ID: [id number] thor: Pierce (Res) Landonervice: General SurgeryAuthor Type: [...] 09/20/17 0659 09/20/17 07 - 09/21/17 0659Shift [id number] 0235-2049 3683-3879 24 Hour Total 7895-7844 [id number] 24 Hour TotalINTAKE Shift TotalOUTPUT Urine 750 [...] BALANCETEARS) 1 Drop BOTH EYES PRNphenol 1 [place] (CHLORASEPTIC) 1 [place] MUCOUS MEMBRANE (TOPICAL MOUTH ANDTHROAT) q 2 H PRNbenzocaine-menthol 1 Lozenge (CEPACOL) 1 Lozenge MUCOUS MEMBRANE (TOPICALMOUTH AND THROAT) q 2 H PRNondansetron (PF) 4 mg injection (ZOFRAN) 4 mg INTRAVENOUS q 6 H PRNdilTIAZem 100 mg in D5W 100 mL ADD-[place] (CARDIZEM) 5-20 mg/hrINTRAVENOUS CONTINUOUS0.9% NaCl 10 mL [...] 29.7* 28.7*PLT 445* 428*Exam:GENERAL: No distress, AlertNEURO: [id number]: normocephalic, atraumaticLUNGS: Unlabored breathingCARDIAC: Regular rate and rhythm as aboveABDOMEN: soft, min dist, min TTP epigastrum. NGT in place.EXTREMITIES: JERONIMO, No deformities, No edemaSKIN: Skin color, texture, turgor normal, No rashes or lesionsASSESSMENT AND PLAN:Active Hospital Problems Diagnosis Date Noted- Atrial fibrillation with RVR (HCC) 09/12/2017- Hematemesis 09/12/2017 Overview Note: Added automatically from request for surgery [id number]- Gastric outlet obstruction 09/12/2017 Overview Note: Added automatically from request for surgery [id number]- Severe protein-calorie malnutrition (HCC) 07/03/201772 YOM with gastric/duodenal ulcers, GOO, A-fib/RVR. s/p EGD and duodenaldilitation. Hpylori negative.?- A-fib mgnt per medicine, currently on cardizem gtt- protonix- NGT- NPO/TPN- plan for surgery tomorrow--Dr. Foster to discuss w/ pt today.?Pierce Montiel [facility] Chief ResidentMay 2017 6:31 [facility] #: [facility] General Surgery Service Pager:For questions or concerns Mon-Fri 6a-5p please page [phone].After 5pm and on Weekends and Holidays, please page [phone] if in ICU or 2174if on RNF. Normal [facility] Phosphorus Bloodon 8 Phosphate 3.7 mg/dL Normal 2.5-4.9 [facility] Comment on above: Performed By: #### P T ####[place] [address] RBC Productson 09-20-2017 Xmatch Unit 1 see below Normal [facility] Comment on above: Result Comment: Comp atible Performed By: #### P T ####[place] [address] Type and Screenon 09-20-2017 ABO group A Normal [facility] Comment on above: Performed By: #### P T ####[place] [address] Antibody Screen Negative Normal [facility] Comment on above: Performed By: #### P T ####[address] [address] Comment See Below Normal [facility] Comment on above: Result Comment: Scre en &/or Xmatch expires in 3 days at 12 midnight. Redrawpatient at that time. Performed By: #### P T ####[place] [address] RH Type Positive Normal [facility] Comment on above: Performed By: #### P T ####[place] [address] ABDOMEN 1 VIEWon 09-19-2017 ABDOMEN 1 VIEW Performed at [facility] APPROVED BY: Der Woodward MD EXAM TITLE: PORTABLE KUB OF [...] is no evidence of free air. Normal [facility] Basic Panelon 09-19-2017 Creatinine 0.46 mg/dL Low 0.67-1.17 [facility] Comment on above: Performed By: #### P T ####[place] [address] Anion gap 9 mmol/L Normal 8-16 [facility] Comment on above: Performed By: #### P T ####[place] [address] CO2 26 mmol/L Normal 21-32 [facility] Comment on above: Performed By: #### P T ####[place] [address] Glucose mass conc 115 mg/dL High 70-99 [facility] Comment on above: Performed By: #### P T ####[facility] [place] [address] Calcium 8.7 mg/dL Normal 8.5-10.1 [facility] Comment on above: Performed By: #### P T ####[facility] [place], [place] [address] Urea nitrogen 13 mg/dL Normal 7-18 [facility] Comment on above: Performed By: #### P T ####[facility] [place] [address] Chloride 106 mmol/L Normal 98-107 [facility] Comment on above: Performed By: #### P T ####[place] [address] Potassium molar conc 4.2 mmol/L Normal 3.5-5.1 [facility] Comment on above: Performed By: #### P T ####[place] [address] Sodium 137 mmol/L Normal 136-145 [facility] Comment on above: Performed By: #### P T ####[place] [address] CASE MANAGEMon 09-19-2017 CASE MANAGEM HNO ID: [id number] thor: Lakia (Rn) KELLY Guillenervice: Care ManagementAuthor Type: Registered NurseType: Care Mgt Progress NoteFiled: 09/19/2017 12:25 PMNote Text:CARE MANAGEMENT PROGRESS NOTESERVICE DATE: 09/19/2017SERVICE TIME: 12:24 PM LOS: 7 daysNeeds Prior to Discharge: Accepting Facility;DischargeTransportat ion;OT/PT EvaluationRef[facility] Awaiting acveptance. for theadmissions coordinator to inquire. Await call backSIGNATURE: Lakia Guillen RN PATIENT NAME: Cristina JeffreyDATE: September 19, 2017 : 12:24 PM PAGER/CONTACT #: [phone] Normal [facility] Hemogram/Diffon 09-19-2017 Abs Immature Grans 0.13 thou/cmm High 0.00-0.05 [facility] Comment on above: Performed By: #### P T ####[facility] [place] [address] Abs. Baso 0.02 thou/cmm Normal 0.01-0.08 [facility] Comment on above: Performed By: #### P T ####[place] [address] Abs. Scurry 1.01 thou/cmm High 0.30-0.82 [facility] Comment on above: Performed By: #### P T ####[place] [address] Abs. Neut (ANC) 4.83 thou/cmm Normal 1.78-5.38 [facility] Comment on above: Performed By: #### P T ####[place] [address] Basophils/100 WBC Auto (Bld) 0.2 % Normal [facility] Comment on above: Performed By: #### P T ####[place] [address] Eosinophils 0.47 thou/cmm Normal 0.04-0.54 [facility] Comment on above: Performed By: #### P T ####[place] [address] Eosinophils/100 leukocytes 5.2 % Normal [facility] Comment on above: Performed By: #### P T ####[place] [address] Erythrocyte distribution width Auto Ratio (RBC) 15.9 % High 11.6-14.4 [facility] Comment on above: Performed By: #### P T ####[place] [address] Erythrocytes (RBC) 3.25 mil/cmm Low 4.63-6.08 [facility] Comment on above: Performed By: #### P T ####[place] [address] Hematocrit (HCT) 28.7 % Low 40.1-51.0 [facility] Comment on above: Performed By: #### P T ####[facility] [place] [address] Hemoglobin mass conc (Bld) 9.1 g/dL Low 13.7-17.5 [facility] Comment on above: Performed By: #### P T ####[place] [address] Immature Grans 1.40 % Normal [facility] Comment on above: Performed By: #### P T ####[place] [address] Lymphocytes 2.53 thou/cmm Normal 0.84-2.85 [facility] Comment on above: Performed By: #### P T ####[place] [address] Lymphocytes/100 leukocytes 28.2 % Normal [facility] Comment on above: Performed By: #### P T ####[place] [address] MCH 28.0 pg Normal 25.7-32.2 [facility] Comment on above: Performed By: #### P T ####[place] [address] MCHC mass conc (RBC) 31.7 % Low 32.3-36.5 [facility] Comment on above: Performed By: #### P T ####[place] [address] MCV 88.3 fL Normal 83.2-95.6 [facility] Comment on above: Performed By: #### P T ####[place] [address] Monocytes/100 leukocytes 11.2 % Normal [facility] Comment on above: Performed By: #### P T ####[place] [address] Platelet mean volume (PMV) 9.0 fL Normal 8.7-12.0 [facility] Comment on above: Performed By: #### P T ####[place] [address] Platelets 428 thou/cmm High 141-365 [facility] Comment on above: Performed By: #### P T ####[facility] [place], [place] [address] RDW SD 51.4 fl High 36.1-45.8 [facility] Comment on above: Performed By: #### P T ####[facility] [place], [place] [address] Seg Neutrophil 53.8 % Normal [facility] Comment on above: Performed By: #### P T ####[facility] [place], [place] [address] WBC (Leukocytes) 8.98 thou/cmm Normal 4.23-9.07 [facility] Comment on above: Performed By: #### P T ####[address] [address] MDRD GFRon 09-19-2017 eGFR (non-black) mL/min/{1.73_m2} Normal >60mL/m in/ 1.73m2 [facility] Comment on above: Result Comment: If t he patient is , multiply the result by 1.210. Performed By: #### P T ####[address] [address] MRI ABDOMEN W/WO CONTRASTon 09-19-2017 MRI ABDOMEN W/WO CONTRAST Performed at [facility] APPROVED BY: Bertin Osorio MD TITLE: MRCP [...] well characterized on this study. Cholelithiasis. Normal [facility] Magnesium Bloodon 09-19-2017 Magnesium 2.1 mg/dL Normal 1.6-2.6 [facility] Comment on above: Performed By: #### P T ####[place] [address] NURSING PROGon 09-19-2017 Protein mass conc HNO ID: [id number] thor: Afshin (Rn) Jey, RNService: (none)Author Type: Registered NurseType: Nursing Progress NoteFiled: 09/19/2017 8:41 PMNote Text: Nursing Progress NotePatient Name: Cristina JeffreyMRN: [id number] Location: [place] [address] [address]*____ Spoke to Dr. York about pt.'s heart rate. Ordered to give Lopressorearly. Will continue to monitor.This note was completed by: Afshin Khanna RN [facility] Protein mass conc HNO ID: [id number] thor: Nishi Villanueva, RNService: NursingAuthor Type: Registered NurseType: Nursing Progress NoteFiled: 09/19/2017 2:57 PMNote Text: Nursing Progress NotePatient Name: Cristina JeffreyMRN: [id number] Location: [place] [address]/[place] [address]*____ Patient complaining of discomfort since NG tube advanced. Discussedconcerns with Dr. Reyes and he ordered me to advance NG tube to 55cm.This note was completed by: Nishi Villanueva RN Normal [facility] Protein mass conc HNO ID: [id number] thor: Nishi Villanueva, RNService: NursingAuthor Type: Registered NurseType: Nursing Progress NoteFiled: 09/19/2017 2:48 PMNote Text: Nursing Progress NotePatient Name: Cristina JeffreyMRN: [id number] Location: [place] [address]*____ Notified Dr. Avalos of KUB results. Per Dr. Avalos, advance NG tube onecentimeter. NG tube advanced and is now at 45cm at the right nareThis note was completed by: Nishi Villanueva RN Normal [facility] Protein mass conc HNO ID: [id number] thor: Nishi Villanueva, RNService: NursingAuthor Type: Registered NurseType: Nursing Progress NoteFiled: 09/19/2017 2:46 PMNote Text: Nursing Progress NotePatient Name: Cristina JeffreyMRN: [id number] Location: [id number]/[facility]*____ Event(s) / Intervention Note:The patient was observed having the following problems: dislodged NG tube.The time of the event occurred at: 10:45am.The following intervention(s) were initiated: NG tube advanced. notified.After the initiated interventions, the following observation(s) were made:STAT KUB ordered.This note was completed by: Nishi Villanueva RN [facility] NUTRITIONon 09-19-2017 NUTRITION HNO ID: [id number] thor: OUMOU Post Rdervice: NST-Nutrition Support TeamAuthor Type: Registered DietitianType: NutritionFiled: 09/19/2017 10:41 AMNote Text: At testation signed by Rmima Castle at 09/19/2017 11:[address] [...] SUPPORT TEAM PROGRESS NOTEPATIENT NAME: Cristina JeffreyMRN: [id number] OF : 1945DATE: 09/19/2017Nutritional Status: SEVERE PROTEIN-CALORIE [...] 2.1 2.3 2.3CA 8.7 8.6 8.3*Recent Labs [id number] 15.5*Trish Santos RD, LDPager: [phone]: 3 Normal [facility] PROGRESSon 09-19-2017 Protein mass conc HNO ID: [id number] thor: Giselle (Telegraphic Typewriter Operator) CroomService: ElectrophysiologyAuthor Type: Nurse PractitionerType: Progress NotesFiled: [...] BP Temp Temp src Pulse Resp SpO2 Wvtxhz26/29/18 0816 - - - 85 20 - [...] BALANCETEARS) 1 Drop BOTH EYES PRNphenol 1 [place] (CHLORASEPTIC) 1 [place] MUCOUS MEMBRANE (TOPICAL MOUTH ANDTHROAT) q 2 H PRNbenzocaine-menthol 1 Lozenge (CEPACOL) 1 Lozenge MUCOUS MEMBRANE (TOPICALMOUTH AND THROAT) q 2 H PRNondansetron (PF) 4 mg injection (ZOFRAN) 4 mg INTRAVENOUS q 6 H PRNdilTIAZem 100 mg in D5W 100 mL ADD-[place] (CARDIZEM) 5-20 mg/hrINTRAVENOUS CONTINUOUS0.9% NaCl 10 mL [...] 106CO2 26CA 8.7MG 2.1Last Lab Drawn:LDL Chol, Cobb 110 02/23/2010ssessment/Plan Atrial fibrillation with RVR (HCC) [...] Risk ) 40 mg SUBCUTANEOUS DAILY 09/12/17 7296 --SIGNATURE: Michelle Weeks, MSN, BILLING COORDINATOR.CAR PILOT PATIENT NAME: Cristina JeffreyDATE: September 19, 2017 : 11:43 AM PAGER/CONTACT #: [phone] [facility] Protein mass conc HNO ID: [id number] thor: Yina RobertselService: Hospital MedicineAuthor Type: PhysicianType: [...] BALANCETEARS) 1 Drop BOTH EYES PRNphenol 1 [place] (CHLORASEPTIC) 1 [place] MUCOUS MEMBRANE (TOPICAL MOUTH ANDTHROAT) q 2 H PRNbenzocaine-menthol 1 Lozenge (CEPACOL) 1 Lozenge MUCOUS MEMBRANE (TOPICALMOUTH AND THROAT) q 2 H PRNondansetron (PF) 4 mg injection (ZOFRAN) 4 mg INTRAVENOUS q 6 H PRNdilTIAZem 100 mg in D5W 100 mL ADD-[place] (CARDIZEM) 5-20 mg/hrINTRAVENOUS CONTINUOUS0.9% NaCl 10 mL [...] 0.48* 0.44* 0.50* 0.52* 0.67 0.84CHEM:Recent Labs 09/19/1803648878CUR -- -- -- -- -- -- -- [...] Ref Rng AND Units 09/12/2017 09/13/2017Gastrin SEE [id number] 0.0 - 35.0 U/ml 8.1CEA 0.0 - [...] Nurse - Nishi, VALENTEupsaritha Yeboah Physician Normal [facility] Phosphorus Bloodon 8 Phosphate 3.5 mg/dL Normal 2.5-4.9 [facility] Comment on above: Performed By: #### P T ####[facility] [place] [id number] THERAPY NTon 09-19-2017 THERAPY NT HNO ID: [id number] thor: Ana Cristina (Pt) SturmService: Physical TherapyAuthor Type: Physical TherapistType: Therapy (PT/OT/Speech/Resp)Filed: 09/19/2017 3:45 PMNote Text:Physical Therapy TreatmentSERVICE DATE: 09/19/2017SERVICE TIME: 1440 to 1448ROOM: [id number] Discharge Disposition: Subacute/SNFJustification For Post Acute Needs: [...] sit to/from stand with: SupervisionAmbulate with: SupervisionDistance: 96u2Yktouf: Wheeled WalkerGoal: sit to/from stand x 10 reps with SBAProgress Toward Goals: Progressing as expectedRehab Potential: GoodPLAN:Treatment Frequency (times per week): 5 (1-4) Current admissionTreatment Interventions: Functional Mobility Training;BalanceTraining;Educ ation;StrengtheningPlan of Care developed with: PatientTREATMENT INTERVENTIONS:Therapy Diagnosis: Reduced mobility-other;Unsteadiness onfeet;Abnormalities of gait and mobility-otherInterventions Provided: Therapeutic Exercise ([address])Therapeutic Exercise (87547) Treatment Minutes: 101 unitSkilled Intervention(s): Instruction in [...] 19, 2017 : 3:32 PM PAGER/CONTACT #: [phone] Normal [facility] THERAPY NT HNO ID: [id number] thor: Nevaeh BarnettOtr/Renetta Pennervice: Occupational TherapyAuthor Type: Occupational TherapistType: Therapy (PT/OT/Speech/Resp)Filed: 09/19/2017 3:12 PMNote Text:OCCUPATIONAL THERAPY MISSED VISITSERVICE DATE: 09/19/2017SERVICE TIME: 1505 to 1510ROOM: [phone] Evaluation. Patient not seen due to Declined. Patient declinestherapy services while here in the hospital. I know what to do, I will doit myself." Will sign off at this time. Please re-consult if patientchanges his mind.SIGNATURE: Nevaeh Ventura OTR/Nirali PATIENT NAME: Cristina MooreTE: September 19, 2017 : 3:11 PM PAGER/CONTACT #:[phone] Normal [facility] Basic Panelon 09-18-2017 Creatinine 0.45 mg/dL Low 0.67-1.17 [facility] Comment on above: Performed By: #### P T ####[facility] [place] [address] Urea nitrogen 11 mg/dL Normal 7-18 [facility] Comment on above: Performed By: #### P T ####[facility] [place] [address] Anion gap 10 mmol/L Normal 8-16 [facility] Comment on above: Performed By: #### P T ####[facility] [place] [address] Calcium 8.6 mg/dL Normal 8.5-10.1 [facility] Comment on above: Performed By: #### P T ####[place] [address] CO2 24 mmol/L Normal 21-32 [facility] Comment on above: Performed By: #### P T ####[place] [address] Glucose mass conc 129 mg/dL High 70-99 [facility] Comment on above: Performed By: #### P T ####[place] [address] Chloride 108 mmol/L High 98-107 [facility] Comment on above: Performed By: #### P T ####[place] [address] Potassium molar conc 4.5 mmol/L Normal 3.5-5.1 [facility] Comment on above: Performed By: #### P T ####[place] [address] Sodium 137 mmol/L Normal 136-145 [facility] Comment on above: Performed By: #### P T ####[place] [address] Chromogranin Aon 09-18-2017 Chromogranin A SEE BELOW Normal [facility] Comment on above: Result Comment: Hammer Setter mogranin A 500 H <98 ng/mLThis test is performed using the Embibe LBU-SQBPT-RM kit. Resultsobtained with different methods or kits cannot be used interchangeably.This test was developed and its performance characteristics determinedby [facility] [place] ([facility]). It has not been cleared or approved by the FDA. [facility] is regulatedunder CLIA as qualified to perform high-complexity testing. This test is used for clinical purposes. It should not be regarded as investigational or for research.Performing Laboratory:[facility] [place] [address] Performed By: #### P T ####[place] [address] Hemogram/Diffon 09-18-2017 Abs Immature Grans 0.09 thou/cmm High 0.00-0.05 [facility] Comment on above: Performed By: #### P T ####[place] [address] Abs. Baso 0.06 thou/cmm Normal 0.01-0.08 [facility] Comment on above: Performed By: #### P T ####[place] [address] Abs. Scurry 0.91 thou/cmm High 0.30-0.82 [facility] Comment on above: Performed By: #### P T ####[address] [address] Abs. Neut (ANC) 5.27 thou/cmm Normal 1.78-5.38 [facility] Comment on above: Performed By: #### P T ####[place] [address] Basophils/100 WBC Auto (Bld) 0.6 % Normal [facility] Comment on above: Performed By: #### P T ####[address] [address] Eosinophils 0.52 thou/cmm Normal 0.04-0.54 [facility] Comment on above: Performed By: #### P T ####[address] [address] Eosinophils/100 leukocytes 5.6 % Normal [facility] Comment on above: Performed By: #### P T ####[facility] [place] [address] Erythrocyte distribution width Auto Ratio (RBC) 15.9 % High 11.6-14.4 [facility] Comment on above: Performed By: #### P T ####[facility] [place] [address] Erythrocytes (RBC) 3.48 mil/cmm Low 4.63-6.08 [facility] Comment on above: Performed By: #### P T ####[place] [address] Hematocrit (HCT) 30.2 % Low 40.1-51.0 [facility] Comment on above: Performed By: #### P T ####[place] [address] Hemoglobin mass conc (Bld) 9.8 g/dL Low 13.7-17.5 [facility] Comment on above: Performed By: #### P T ####[place] [address] Immature Grans 1.00 % Normal [facility] Comment on above: Performed By: #### P T ####[place] [address] Lymphocytes 2.49 thou/cmm Normal 0.84-2.85 [facility] Comment on above: Performed By: #### P T ####[place] [address] Lymphocytes/100 leukocytes 26.7 % Normal [facility] Comment on above: Performed By: #### P T ####[place] [address] MCH 28.2 pg Normal 25.7-32.2 [facility] Comment on above: Performed By: #### P T ####[place] [address] MCHC mass conc (RBC) 32.5 % Normal 32.3-36.5 [facility] Comment on above: Performed By: #### P T ####[facility] [place], [place] [address] MCV 86.8 fL Normal 83.2-95.6 [facility] Comment on above: Performed By: #### P T ####[facility] [place], [place] [address] Monocytes/100 leukocytes 9.7 % Normal [facility] Comment on above: Performed By: #### P T ####[address] [address] Platelet mean volume (PMV) 9.1 fL Normal 8.7-12.0 [facility] Comment on above: Performed By: #### P T ####[address] [address] Platelets 435 thou/cmm High 141-365 [facility] Comment on above: Performed By: #### P T ####[address] [address] RDW SD 50.5 fl High 36.1-45.8 [facility] Comment on above: Performed By: #### P T ####[address] [address] Seg Neutrophil 56.4 % Normal [facility] Comment on above: Performed By: #### P T ####[address] [address] WBC (Leukocytes) 9.34 thou/cmm High 4.23-9.07 [facility] Comment on above: Performed By: #### P T ####[address] [address] MDRD GFRon 09-18-2017 eGFR (non-black) mL/min/{1.73_m2} Normal >60mL/m in/ 1.73m2 [facility] Comment on above: Result Comment: If t he patient is , multiply the result by 1.210. Performed By: #### P T ####[address] [address] Magnesium Bloodon 09-18-2017 Magnesium 2.3 mg/dL Normal 1.6-2.6 [facility] Comment on above: Performed By: #### P T ####[place] [address] NURSING PROGon 09-18-2017 Protein mass conc HNO ID: [id number] thor: Vicki (Rn) KELLY Chowdhuryervice: NursingAuthor Type: Registered NurseType: Nursing Progress NoteFiled: 09/18/2017 6:33 PMNote Text:Dr. Maher notified that pt.'s HR in 130s-160s on maxed out at 20 onCardizem gtt. Orders given for IV Lopressor 2.5 mg Q6. If pt.'s HRcontinues to be increased, will not intervene. Will continue to monitor. Normal [facility] Protein mass conc HNO ID: [id number] thor: Alyssa (Rn) KELLY Selfervice: NursingAuthor Type: Registered NurseType: Nursing Progress NoteFiled: 09/18/2017 6:18 AMNote Text:Pt with HR 140-160. Sound paged, pt currently on cardizem gtt at15mg/hr. Order received for IV metoprolol. Normal [facility] Protein mass conc HNO ID: [id number] thor: Alyssa (Gregory) KELLY Selfervice: NursingAuthor Type: Registered NurseType: Nursing Progress NoteFiled: 09/18/2017 5:17 AMNote Text:Pt with sluggish blood return in distal lumen of PICC. Order obtained forcathflo. When attempting to instill Cathflo, RN noted now pt has totalocclusion. Will instill cathflo per protocol and continue to monitor Normal [facility] PROGRESSon 09-18-2017 Protein mass conc HNO ID: [id number] thor: CANDICE Jensenervice: Hospital MedicineAuthor Type: PhysicianType: Progress NotesFiled: 09/18/2017 5:53 PMNote Text:DEPARTMENT OF HOSPITAL MEDICINEPROGRESS NOTESERVICE DATE: 09/18/2017SERVICE TIME: 5:28 PMHospital Medicine/Primary Attending: Nick Sanchez MDNIGHT AND WEEKEND COVERAGE:After 7pm please page [phone] COMPLAINT: Gastric outlet obstructionSUBJECTIVE:72 yrs old male [...] BALANCETEARS) 1 Drop BOTH EYES PRNphenol 1 [place] (CHLORASEPTIC) 1 [place] MUCOUS MEMBRANE (TOPICAL MOUTH ANDTHROAT) q 2 H PRNbenzocaine-menthol 1 Lozenge (CEPACOL) 1 Lozenge MUCOUS MEMBRANE (TOPICALMOUTH AND THROAT) q 2 H PRNondansetron (PF) 4 mg injection (ZOFRAN) 4 mg INTRAVENOUS q 6 H PRNdilTIAZem 100 mg in D5W 100 mL ADD-[place] (CARDIZEM) 5-20 mg/hrINTRAVENOUS CONTINUOUS0.9% NaCl 10 mL [...] PatientSIGNATURE: Nick Sanchez MD PATIENT NAME: Cristina JefferyDATE: September 18, 2017 : 5:28 PM PAGER/CONTACT #: Normal [facility] Protein mass conc HNO ID: [id number] thor: Neema SorianoyService: ElectrophysiologyAuthor Type: PhysicianType: Progress [...] BALANCETEARS) 1 Drop BOTH EYES PRNphenol 1 [place] (CHLORASEPTIC) 1 [place] MUCOUS MEMBRANE (TOPICAL MOUTH ANDTHROAT) q 2 H PRNbenzocaine-menthol 1 Lozenge (CEPACOL) 1 Lozenge MUCOUS MEMBRANE (TOPICALMOUTH AND THROAT) q 2 H PRNondansetron (PF) 4 mg injection (ZOFRAN) 4 mg INTRAVENOUS q 6 H PRNdilTIAZem 100 mg in D5W 100 mL ADD-[place] (CARDIZEM) 5-20 mg/hrINTRAVENOUS CONTINUOUS0.9% NaCl 10 mL 10 mL INTRAVENOUS q 12 H0.9% NaCl 20 mL 20 mL INTRAVENOUS PRNiv contrast (radiology procedure) INTRAVENOUS DIRECTED PRNenoxaparin 40 mg injection (LOVENOX) 40 mg SUBCUTANEOUS DAILYObjectiveObjective:Gener al Appearance: Ill-appearing.Vital signs: (most recent): Blood pressure 134/88, pulse 110, ukejblubzpm80.6 ?C (97.9 ?F), temperature source Oral, resp. rate 18, height 175.3 cm(5' 9.02"), weight 80.6 kg (177 lb 12.8 oz), SpO2 99 %.Lungs: Normal effort. He is not in respiratory distress.Neurological: Patient is alert and oriented to person, place and time.Patient Vitals for the past 24 hrs: BP Temp Temp src Pulse Resp [id number]/17 0954 - - - 110 18 -09/18/17 [...] for today's visit:Most recent labs and imaging results.Assessment/Auut13-erd r-old male with recurrent GI bleeding, persistent [...] September 18, 2017 : 12:03 PM PAGER: [phone] Normal [facility] Phosphorus Bloodon 8 Phosphate 3.2 mg/dL Normal 2.5-4.9 [facility] Comment on above: Performed By: #### P T ####[place] [address] Prealbuminon 09-18-2017 Prealbumin 15.5 mg/dL Low 20.0-40.0 [facility] Comment on above: Performed By: #### P T ####[place] [address] ABDOMEN 1 VIEWon 09-17-2017 ABDOMEN 1 VIEW Performed at [facility] APPROVED BY: NAKITA LAMBERT MD EXAM: Supine [...] tube tip in proximal gastric fundus Normal [facility] Basic Panelon 09-17-2017 Creatinine 0.48 mg/dL Low 0.67-1.17 [facility] Comment on above: Performed By: #### P T ####[place] [address] Anion gap 9 mmol/L Normal 8-16 [facility] Comment on above: Performed By: #### P T ####[place] [address] CO2 25 mmol/L Normal 21-32 [facility] Comment on above: Performed By: #### P T ####[facility] [place], [place] [address] Glucose mass conc 119 mg/dL High 70-99 [facility] Comment on above: Performed By: #### P T ####[facility] [place], [place] [address] Urea nitrogen 9 mg/dL Normal 7-18 [facility] Comment on above: Performed By: #### P T ####[facility] [place] [address] Calcium 8.3 mg/dL Low 8.5-10.1 [facility] Comment on above: Performed By: #### P T ####[place] [address] Chloride 107 mmol/L Normal 98-107 [facility] Comment on above: Performed By: #### P T ####[place] [address] Potassium molar conc 4.1 mmol/L Normal 3.5-5.1 [facility] Comment on above: Performed By: #### P T ####[place] [address] Sodium 137 mmol/L Normal 136-145 [facility] Comment on above: Performed By: #### P T ####[place] [address] CASE MANAGEMon 09-17-2017 CASE MANAGEM HNO ID: [id number] thor: Inez (Rn) Rachel, RNService: Care ManagementAuthor Type: Registered NurseType: Care Mgt Progress NoteFiled: 09/17/2017 9:30 AMNote Text:PT rec SNF; OT still pending. [facility]erral [facility]; awaitingresponse. No precert required at d/c ( 3 INPT MNs already completed). D/cvia ambulette vs private ride based on PT notes. Normal [facility] Hemogram/Diffon 09-17-2017 Abs Immature Grans 0.06 thou/cmm High 0.00-0.05 [facility] Comment on above: Performed By: #### P T ####[facility] [place] [address] Abs. Baso 0.04 thou/cmm Normal 0.01-0.08 [facility] Comment on above: Performed By: #### P T ####[place] [address] Abs. Scurry 0.91 thou/cmm High 0.30-0.82 [facility] Comment on above: Performed By: #### P T ####[place] [address] Abs. Neut (ANC) 4.45 thou/cmm Normal 1.78-5.38 [facility] Comment on above: Performed By: #### P T ####[place] [address] Basophils/100 WBC Auto (Bld) 0.5 % Normal [facility] Comment on above: Performed By: #### P T ####[place] [address] Eosinophils 0.51 thou/cmm Normal 0.04-0.54 [facility] Comment on above: Performed By: #### P T ####[place] [address] Eosinophils/100 leukocytes 6.3 % Normal [facility] Comment on above: Performed By: #### P T ####[place] [address] Erythrocyte distribution width Auto Ratio (RBC) 15.9 % High 11.6-14.4 [facility] Comment on above: Performed By: #### P T ####[place] [address] Erythrocytes (RBC) 3.05 mil/cmm Low 4.63-6.08 [facility] Comment on above: Performed By: #### P T ####[place] [address] Hematocrit (HCT) 26.9 % Low 40.1-51.0 [facility] Comment on above: Performed By: #### P T ####[facility] [place] [address] Hemoglobin mass conc (Bld) 8.7 g/dL Low 13.7-17.5 [facility] Comment on above: Performed By: #### P T ####[place] [address] Immature Grans 0.70 % Normal [facility] Comment on above: Performed By: #### P T ####[place] [address] Lymphocytes 2.19 thou/cmm Normal 0.84-2.85 [facility] Comment on above: Performed By: #### P T ####[place] [address] Lymphocytes/100 leukocytes 26.8 % Normal [facility] Comment on above: Performed By: #### P T ####[place] [address] MCH 28.5 pg Normal 25.7-32.2 [facility] Comment on above: Performed By: #### P T ####[place] [address] MCHC mass conc (RBC) 32.3 % Normal 32.3-36.5 [facility] Comment on above: Performed By: #### P T ####[place] [address] MCV 88.2 fL Normal 83.2-95.6 [facility] Comment on above: Performed By: #### P T ####[address] [address] Monocytes/100 leukocytes 11.2 % Normal [facility] Comment on above: Performed By: #### P T ####[place] [address] Platelet mean volume (PMV) 9.4 fL Normal 8.7-12.0 [facility] Comment on above: Performed By: #### P T ####[place] [address] Platelets 346 thou/cmm Normal 141-365 [facility] Comment on above: Performed By: #### P T ####[place] [address] RDW SD 50.7 fl High 36.1-45.8 [facility] Comment on above: Performed By: #### P T ####[place] [address] Seg Neutrophil 54.5 % Normal [facility] Comment on above: Performed By: #### P T ####[place] [address] WBC (Leukocytes) 8.16 thou/cmm Normal 4.23-9.07 [facility] Comment on above: Performed By: #### P T ####[place] [address] MDRD GFRon 09-17-2017 eGFR (non-black) mL/min/{1.73_m2} Normal >60mL/m in/ 1.73m2 [facility] Comment on above: Result Comment: If t he patient is , multiply the result by 1.210. Performed By: #### P T ####[place] [address] Magnesium Bloodon 09-17-2017 Magnesium 2.3 mg/dL Normal 1.6-2.6 [facility] Comment on above: Performed By: #### P T ####[place] [address] NURSING PROGon 09-17-2017 Protein mass conc HNO ID: [id number] thor: Raul (Rosario Membreno: NursingAuthor Type: ResidentType: Nursing Progress NoteFiled: 09/17/2017 6:07 AMNote Text: At testation signed by Gm Dunbar at 09/17/2017 12:42 PMAs above.Gm Dunbar MD, FACS, [facility] Nursing Progress NotePatient Name: Cristina JeffreyMRN: [id number] Location: [place] [address]/[place] [address]*____ NG tube fell out at 6:50pm. Day [...] the biopsy from EGD has resulted. Normal [facility] PROGRESSon 09-17-2017 Protein mass conc HNO ID: [id number] thor: CANDICE Jensenervice: [facility] MedicineAuthor Type: PhysicianType: Progress NotesFiled: 09/17/2017 2:21 PMNote Text:DEPARTMENT OF HOSPITAL MEDICINEPROGRESS NOTESERVICE DATE: 09/17/2017SERVICE TIME: 2:16 PMHospital Medicine/Primary Attending: Nick Sanchez MDNIGHT AND WEEKEND COVERAGE:After 7pm please page [phone] COMPLAINT: Gastric outlet obstructionSUBJECTIVE: Slightly more SOB [...] BALANCETEARS) 1 Drop BOTH EYES PRNphenol 1 [place] (CHLORASEPTIC) 1 [place] MUCOUS MEMBRANE (TOPICAL MOUTH ANDTHROAT) q 2 H PRNbenzocaine-menthol 1 Lozenge (CEPACOL) 1 Lozenge MUCOUS MEMBRANE (TOPICALMOUTH AND THROAT) q 2 H PRNondansetron (PF) 4 mg injection (ZOFRAN) 4 mg INTRAVENOUS q 6 H PRNdilTIAZem 100 mg in D5W 100 mL ADD-[place] (CARDIZEM) 5-15 mg/hrINTRAVENOUS CONTINUOUS0.9% NaCl 10 mL [...] 2017 : 2:16 PM PAGER/CONTACT #: Nusrat [facility] Protein mass conc HNO ID: [id number] thor: Neema Cordova VitbeckieyService: ElectrophysiologyAuthor Type: PhysicianType: [...] BALANCETEARS) 1 Drop BOTH EYES PRNphenol 1 [place] (CHLORASEPTIC) 1 [place] MUCOUS MEMBRANE (TOPICAL MOUTH ANDTHROAT) q 2 H PRNbenzocaine-menthol 1 Lozenge (CEPACOL) 1 Lozenge MUCOUS MEMBRANE (TOPICALMOUTH AND THROAT) q 2 H PRNondansetron (PF) 4 mg injection (ZOFRAN) 4 mg INTRAVENOUS q 6 H PRNdilTIAZem 100 mg in D5W 100 mL ADD-[place] (CARDIZEM) 5-15 mg/hrINTRAVENOUS CONTINUOUS0.9% NaCl 10 mL 10 mL INTRAVENOUS q 12 H0.9% NaCl 20 mL 20 mL INTRAVENOUS PRNiv contrast (radiology procedure) INTRAVENOUS DIRECTED PRNenoxaparin 40 mg injection (LOVENOX) 40 mg SUBCUTANEOUS DAILYObjectiveObjective:Gener al Appearance: Ill-appearing.Vital signs: (most recent): Blood pressure 111/67, pulse 90, sxascadbeho36.5 ?C (97.7 ?F), temperature source Oral, resp. rate 20, height 175.3 cm(5' 9.02"), weight 80.6 kg (177 lb 12.8 oz), SpO2 96 %.Lungs: Normal effort. He is not in respiratory distress.Chest: Symmetric chest wall expansion.Neurological: Patient is alert.Patient Vitals for the past 24 hrs: BP Temp Temp src Pulse Resp SpO2 Vkyfaj72/27/18 1200 111/67 36.5 ?C (97.7 ?F) Oral [...] for today's visit:Most recent labs and imaging results.Assessment/Bmpa82-mew r-old male with persistent atrial fibrillation, recurrent GIbleeding. Remains in atrial fibrillation with now controlled ventricularrate, and cannot be anticoagulated due to recent hemorrhage, planned for asurgical intervention on Monday, continue rate control with diltiazem anddigoxin.SIGNATURE: Neema Maher MD PATIENT NAME: Cristina JeffreyDATE: September 17, 2017 : 12:27 PM PAGER: [phone] Normal [facility] Phosphorus Bloodon 8 Phosphate 3.1 mg/dL Normal 2.5-4.9 [facility] Comment on above: Performed By: #### P T ####[facility] [place], [place] [address] Basic Panelon 09-16-2017 Creatinine 0.44 mg/dL Low 0.67-1.17 [facility] Comment on above: Performed By: #### P T ####[facility] [place], [place] [address] Anion gap 8 mmol/L Normal 8-16 [facility] Comment on above: Performed By: #### P T ####[address] [address] CO2 29 mmol/L Normal 21-32 [facility] Comment on above: Performed By: #### P T ####[address] [address] Glucose mass conc 135 mg/dL High 70-99 [facility] Comment on above: Performed By: #### P T ####[address] [address] Urea nitrogen 6 mg/dL Low 7-18 [facility] Comment on above: Performed By: #### P T ####[address] [address] Calcium 8.0 mg/dL Low 8.5-10.1 [facility] Comment on above: Performed By: #### P T ####[address] [address] Chloride 107 mmol/L Normal 98-107 [facility] Comment on above: Performed By: #### P T ####[address] [address] Potassium molar conc 3.6 mmol/L Normal 3.5-5.1 [facility] Comment on above: Performed By: #### P T ####[address] [address] Sodium 140 mmol/L Normal 136-145 [facility] Comment on above: Performed By: #### P T ####[address], [place] [address] CONSULT PROGon 09-16-2017 Protein mass conc HNO ID: [id number] thor: Silverio Garrett: GastroenterologyAuthor Type: PhysicianType: Consult [...] BALANCETEARS) 1 Drop BOTH EYES PRNphenol 1 [place] (CHLORASEPTIC) 1 [place] MUCOUS MEMBRANE (TOPICAL MOUTH ANDTHROAT) q 2 H PRNbenzocaine-menthol 1 Lozenge (CEPACOL) 1 Lozenge MUCOUS MEMBRANE (TOPICALMOUTH AND THROAT) q 2 H PRNondansetron (PF) 4 mg injection (ZOFRAN) 4 mg INTRAVENOUS q 6 H PRNdilTIAZem 100 mg in D5W 100 mL ADD-[place] (CARDIZEM) 5-15 mg/hrINTRAVENOUS CONTINUOUS0.9% NaCl 10 mL [...] September 16, 2017 : 9:44 AM Normal [facility] Hemogram/Diffon 09-16-2017 Abs Immature Grans 0.04 thou/cmm Normal 0.00-0.05 [facility] Comment on above: Performed By: #### P T ####[facility] [place] [address] Abs. Baso 0.03 thou/cmm Normal 0.01-0.08 [facility] Comment on above: Performed By: #### P T ####[place] [address] Abs. Scurry 0.81 thou/cmm Normal 0.30-0.82 [facility] Comment on above: Performed By: #### P T ####[place] [address] Abs. Neut (ANC) 4.69 thou/cmm Normal 1.78-5.38 [facility] Comment on above: Performed By: #### P T ####[place] [address] Basophils/100 WBC Auto (Bld) 0.4 % Normal [facility] Comment on above: Performed By: #### P T ####[place] [address] Eosinophils 0.40 thou/cmm Normal 0.04-0.54 [facility] Comment on above: Performed By: #### P T ####[place] [address] Eosinophils/100 leukocytes 5.1 % Normal [facility] Comment on above: Performed By: #### P T ####[place] [address] Erythrocyte distribution width Auto Ratio (RBC) 15.8 % High 11.6-14.4 [facility] Comment on above: Performed By: #### P T ####[place] [address] Erythrocytes (RBC) 2.95 mil/cmm Low 4.63-6.08 [facility] Comment on above: Performed By: #### P T ####[place] [address] Hematocrit (HCT) 25.6 % Low 40.1-51.0 [facility] Comment on above: Performed By: #### P T ####[facility] [place] [address] Hemoglobin mass conc (Bld) 8.4 g/dL Low 13.7-17.5 [facility] Comment on above: Performed By: #### P T ####[place] [address] Immature Grans 0.50 % Normal [facility] Comment on above: Performed By: #### P T ####[place] [address] Lymphocytes 1.89 thou/cmm Normal 0.84-2.85 [facility] Comment on above: Performed By: #### P T ####[address] [address] Lymphocytes/100 leukocytes 24.0 % Normal [facility] Comment on above: Performed By: #### P T ####[place] [address] MCH 28.5 pg Normal 25.7-32.2 [facility] Comment on above: Performed By: #### P T ####[place] [address] MCHC mass conc (RBC) 32.8 % Normal 32.3-36.5 [facility] Comment on above: Performed By: #### P T ####[place] [address] MCV 86.8 fL Normal 83.2-95.6 [facility] Comment on above: Performed By: #### P T ####[place] [address] Monocytes/100 leukocytes 10.3 % Normal [facility] Comment on above: Performed By: #### P T ####[place] [address] Platelet mean volume (PMV) 9.4 fL Normal 8.7-12.0 [facility] Comment on above: Performed By: #### P T ####[facility] [place] [address] Platelets 283 thou/cmm Normal 141-365 [facility] Comment on above: Performed By: #### P T ####[place] [address] RDW SD 50.0 fl High 36.1-45.8 [facility] Comment on above: Performed By: #### P T ####[place] [address] Seg Neutrophil 59.7 % Normal [facility] Comment on above: Performed By: #### P T ####[place] [address] WBC (Leukocytes) 7.86 thou/cmm Normal 4.23-9.07 [facility] Comment on above: Performed By: #### P T ####[place] [address] Abs Immature Grans 0.05 thou/cmm Normal 0.00-0.05 [facility] Comment on above: Performed By: #### P T ####[place] [address] Abs. Baso 0.03 thou/cmm Normal 0.01-0.08 [facility] Comment on above: Performed By: #### P T ####[place] [address] Abs. Scurry 0.76 thou/cmm Normal 0.30-0.82 [facility] Comment on above: Performed By: #### P T ####[place] [address] Abs. Neut (ANC) 4.79 thou/cmm Normal 1.78-5.38 [facility] Comment on above: Performed By: #### P T ####[place] [address] Basophils/100 WBC Auto (Bld) 0.4 % Normal [facility] Comment on above: Performed By: #### P T ####[facility] [place] [address] Eosinophils 0.36 thou/cmm Normal 0.04-0.54 [facility] Comment on above: Performed By: #### P T ####[place] [address] Eosinophils/100 leukocytes 4.7 % Normal [facility] Comment on above: Performed By: #### P T ####[place] [address] Erythrocyte distribution width Auto Ratio (RBC) 16.0 % High 11.6-14.4 [facility] Comment on above: Performed By: #### P T ####[place] [address] Erythrocytes (RBC) 2.77 mil/cmm Low 4.63-6.08 [facility] Comment on above: Performed By: #### P T ####[place] [address] Hematocrit (HCT) 25.6 % Low 40.1-51.0 [facility] Comment on above: Performed By: #### P T ####[place] [address] Hemoglobin mass conc (Bld) 8.2 g/dL Low 13.7-17.5 [facility] Comment on above: Performed By: #### P T ####[place] [address] Immature Grans 0.60 % Normal [facility] Comment on above: Performed By: #### P T ####[place] [address] Lymphocytes 1.74 thou/cmm Normal 0.84-2.85 [facility] Comment on above: Performed By: #### P T ####[place] [address] Lymphocytes/100 leukocytes 22.5 % Normal [facility] Comment on above: Performed By: #### P T ####[place] [address] MCH 29.6 pg Normal 25.7-32.2 [facility] Comment on above: Performed By: #### P T ####[facility] [place], [place] [address] MCHC mass conc (RBC) 32.0 % Low 32.3-36.5 [facility] Comment on above: Performed By: #### P T ####[address] [address] MCV 92.4 fL Normal 83.2-95.6 [facility] Comment on above: Performed By: #### P T ####[address] [address] Monocytes/100 leukocytes 9.8 % Normal [facility] Comment on above: Performed By: #### P T ####[place] [address] Platelet mean volume (PMV) 9.9 fL Normal 8.7-12.0 [facility] Comment on above: Performed By: #### P T ####[place] [address] Platelets 275 thou/cmm Normal 141-365 [facility] Comment on above: Performed By: #### P T ####[address] [address] RDW SD 53.7 fl High 36.1-45.8 [facility] Comment on above: Performed By: #### P T ####[address] [address] Seg Neutrophil 62.0 % Normal [facility] Comment on above: Performed By: #### P T ####[address] [address] WBC (Leukocytes) 7.72 thou/cmm Normal 4.23-9.07 [facility] Comment on above: Performed By: #### P T ####[address] [address] MDRD GFRon 09-16-2017 eGFR (non-black) mL/min/{1.73_m2} Normal >60mL/m in/ 1.73m2 [facility] Comment on above: Result Comment: If t he patient is , multiply the result by 1.210. Performed By: #### P T ####[address] [address] Magnesium Bloodon 09-16-2017 Magnesium 2.1 mg/dL Normal 1.6-2.6 [facility] Comment on above: Performed By: #### P T ####[address] [address] Magnesium 2.6 mg/dL Normal 1.6-2.6 [facility] Comment on above: Result Comment: DISR EGARD RESULTS- SAMPLE INTEGRITY QUESTIONABLECORRECTED: Previous result = 2.6, verified at 04:43 on 09/16/17. Performed By: #### P T ####[address] [address] PLAN OF CAREon 09-16-2017 PLAN OF CARE HNO ID: [id number] thor: Gail Silva (Ecd)Service: PharmacyAuthor Type: PharmacistType: Plan of CareFiled: 09/16/2017 2:55 PMNote Text:MEDICATION HISTORY AND MEDICATION RECONCILIATIONPatient Name:Salvador Camargo [facility] VinelandN: [id number]: 1945Source of history:Patient: Reliability of source: OTC medication nameand frequency and Pharmacy records: [facility] (p: [phone])Medication Nonadherence Identified: No barriers notedThe above information represents the best possible medication history: YesReconciliation completed? Yes All MARKETING DEVELOPMENT REPRESENTATIVE medications addressed by LIPAdditional comments: Medication list [...] See Comments GI bleed; ulcer bleedPreferred Pharmacy: [facility] in [place], [place] (p: [phone])Current MARKETING DEVELOPMENT REPRESENTATIVE Medications:Prior to Admission medications as of 09/16/17 [...] by mouthtwice daily for 14 days. YesVit A,C,U-Olbw-Mfbtyg (PRESERVISION AREDS) 14,320-226-200 qwva-ft-yisupmr Take 1 capsule by mouth twice daily. [...] SILVA, PHARMACY RESIDENTMay 2017 2:46 PM Normal [facility] PROGRESSon 09-16-2017 Protein mass conc HNO ID: [id number] thor: CANDICE Jensenervice: Hospital MedicineAuthor Type: PhysicianType: Progress NotesFiled: 09/16/2017 2:11 PMNote Text:[facility] [place] [facility] MEDICINEPROGRESS NOTESERVICE DATE: 09/16/2017SERVICE TIME: 2:08 PMHospital Medicine/Primary Attending: Nick Sanchez MDNIGHT AND WEEKEND COVERAGE:After 7pm please page [phone] COMPLAINT: PUD, gastric outlet obstructionSUBJECTIVE: Weak, abd [...] BALANCETEARS) 1 Drop BOTH EYES PRNphenol 1 [place] (CHLORASEPTIC) 1 [place] MUCOUS MEMBRANE (TOPICAL MOUTH ANDTHROAT) q 2 H PRNbenzocaine-menthol 1 Lozenge (CEPACOL) 1 Lozenge MUCOUS MEMBRANE (TOPICALMOUTH AND THROAT) q 2 H PRNondansetron (PF) 4 mg injection (ZOFRAN) 4 mg INTRAVENOUS q 6 H PRNdilTIAZem 100 mg in D5W 100 mL ADD-[place] (CARDIZEM) 5-15 mg/hrINTRAVENOUS CONTINUOUS0.9% NaCl 10 mL [...] 2017 : 2:08 PM PAGER/CONTACT #: Normal [facility] Phosphorus Bloodon 8 Phosphate 2.5 mg/dL Normal 2.5-4.9 [facility] Comment on above: Performed By: #### P T ####[address] [address] Phosphate 4.9 mg/dL Normal 2.5-4.9 [facility] Comment on above: Result Comment: DISR EGARD RESULTS- SAMPLE INTEGRITY QUESTIONABLECORRECTED: Previous result = 4.9, verified at 04:43 on 09/16/17. Performed By: #### P T ####[address] [address] THERAPY NTon 09-16-2017 THERAPY NT HNO ID: [id number] thor: Angela (Pt) Anny: Physical TherapyAuthor Type: Physical TherapistType: Therapy (PT/OT/Speech/Resp)Filed: 09/16/2017 3:36 PMNote Text:Physical Therapy EvaluationSERVICE DATE: 09/16/2017SERVICE TIME: 1419 to 1442ROOM: [id number] Discharge Disposition: Subacute/SNFJustification For Post Acute Needs: [...] sit to/from stand with: SupervisionAmbulate with: SupervisionDistance: 66p7Tcpvkx: Wheeled WalkerGoal: sit to/from stand x 10 reps with SBARehab Potential: GoodPLAN:Treatment Frequency (times per week): 5 (1-4) Current admissionTreatment Interventions: Functional Mobility Training;BalanceTraining;Educ ation;StrengtheningPlan of Care developed with: PatientTREATMENT INTERVENTIONS:Therapy Diagnosis: Reduced mobility-other;Unsteadiness onfeet;Abnormalities of gait and mobility-otherInterventions Provided: Evaluation;Therapeutic Activity (96505)$ Evaluation-Moderate (05115) Billed Units: 1 unitTherapeutic Activity (51777) Treatment Minutes: 81 unitSkilled Intervention(s):Educated pt on [...] 16, 2017 : 3:30 PM PAGER/CONTACT #: [phone] [facility] ANES Paras 09-15-2017 ANES POST HNO ID: [id number] thor: Aubrey TsuiService: AnesthesiologyAuthor Type: PhysicianType: Anesthesia PostOpFiled: 09/15/2017 12:16 PMNote Text:POST ANESTHESIA EVALUATION NOTESERVICE DATE: 09/15/2017SERVICE TIME: 1215DOB: 1945Vitals: 09/15/1815 05/25/820379Qaeq: 36.1 ?C (97 ?F) 36.1 ?C (97 [...] 2017 : 12:15 PM PAGER/CONTACT #: Nusrat [facility] ANES PREOPon 09-15-2017 ANES PREOP HNO ID: [id number] thor: Aubrey Mccannervice: AnesthesiologyAuthor Type: PhysicianType: Anesthesia [...] PROBLEM LISTShock (Hcc)Copd (Chronic Obstructive Pulmonary Disease) ([facility])HypertensionHyperlipidem iaGI BleedingAcute Respiratory Failure With Hypoxia and Hypercapnia (Hcc)Acute Blood Loss AnemiaHemorrhagic Shock (Hcc)HypophosphatemiaAtrial Fibrillation With Rapid Ventricular Response ([facility])Severe Protein-Calorie Malnutrition ([facility])Atrial Fibrillation With Rvr ([facility])HematemesisGastric Outlet ObstructionPAST MEDICAL HISTORYDiagnosis Date- Afib (HCC)- [...] tablet by mouthtwice daily for 14 days.Vit A,C,L-Yetl-Oypgmw (PRESERVISION AREDS) 14,320-226-200 syoy-rw-vvqtdks Take 1 capsule by mouth twice daily.albuterol [...] [place][MAR Hold due to Transfer] phenol 1 [place] (CHLORASEPTIC) 1 [place] MUCOUSMEMBRANE (TOPICAL MOUTH AND THROAT) q 2 H PRN Safal N (Res) Avalos 1 [place] at09/14/17 1105[MAR Hold due to Transfer] benzocaine-menthol [...] dilTIAZem 100 mg in D5W 100 mL ADD-[place](CARDIZEM) 5-15 mg/hr INTRAVENOUS CONTINUOUS Safal N (Res) [...] otherwise documented in primary service progress notes: NoTg[facility] contains updated information obtained within 48 hours ofSurgery/Procedure.SIGNATURE : Aubrey Bueno MD PATIENT NAME: Cristina JeffreyDATE: September 15, 2017 : 12:03 PM CSN: [id number] Normal [facility] Basic Panelon 09-15-2017 Creatinine 0.50 mg/dL Low 0.67-1.17 [facility] Comment on above: Performed By: #### P T ####[place] [address] Glucose mass conc 165 mg/dL High 70-99 [facility] Comment on above: Performed By: #### P T ####[place] [address] Urea nitrogen 6 mg/dL Low 7-18 [facility] Comment on above: Performed By: #### P T ####[place] [address] Anion gap 9 mmol/L Normal 8-16 [facility] Comment on above: Performed By: #### P T ####[place] [address] Calcium 7.8 mg/dL Low 8.5-10.1 [facility] Comment on above: Performed By: #### P T ####[place] [address] CO2 28 mmol/L Normal 21-32 [facility] Comment on above: Performed By: #### P T ####[place] [address] Chloride 104 mmol/L Normal 98-107 [facility] Comment on above: Performed By: #### P T ####[place] [address] Potassium molar conc 3.0 mmol/L Low 3.5-5.1 [facility] Comment on above: Performed By: #### P T ####[place] [address] Sodium 138 mmol/L Normal 136-145 [facility] Comment on above: Performed By: #### P T ####[place] [address] CASE MANAGEMon 09-15-2017 CASE MANAGEM HNO ID: [id number] thor: Lakia (Rn) KELLY Guillenervice: Care ManagementAuthor Type: Registered NurseType: Care Mgt Progress NoteFiled: 09/15/2017 12:10 PMNote Text:CARE MANAGEMENT PROGRESS NOTESERVICE DATE: 09/15/2017SERVICE TIME: 12:09 PM LOS: 3 daysNeeds Prior to Discharge: To Be DeterminedEGD today. On cardizem gtt. 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 PT/OT evalsordered today and pending. Await recs to assist with DC planningSIGNATURE: Lakia Guillen RN PATIENT NAME: Cristina JeffreyDATE: September 15, 2017 : 12:09 PM PAGER/CONTACT #: [phone] Normal [facility] Gastrinon 09-15-2017 Gastrin SEE BELOW Normal [facility] Comment on above: Result Comment: Chaya rin 63 <115.0 pg/mLPerforming Laboratory:[facility] [address] [place] [address] Performed By: #### P T ####[place] [address] Hemogram/Diffon 09-15-2017 Abs Immature Grans 0.07 thou/cmm High 0.00-0.05 [facility] Comment on above: Performed By: #### P T ####[place] [address] Abs. Baso 0.03 thou/cmm Normal 0.01-0.08 [facility] Comment on above: Performed By: #### P T ####[facility] [place] [address] Abs. Scurry 0.84 thou/cmm High 0.30-0.82 [facility] Comment on above: Performed By: #### P T ####[place] [address] Abs. Neut (ANC) 5.83 thou/cmm High 1.78-5.38 [facility] Comment on above: Performed By: #### P T ####[place] [address] Basophils/100 WBC Auto (Bld) 0.3 % Normal [facility] Comment on above: Performed By: #### P T ####[place] [address] Eosinophils 0.26 thou/cmm Normal 0.04-0.54 [facility] Comment on above: Performed By: #### P T ####[place] [address] Eosinophils/100 leukocytes 2.9 % Normal [facility] Comment on above: Performed By: #### P T ####[place] [address] Erythrocyte distribution width Auto Ratio (RBC) 15.0 % High 11.6-14.4 [facility] Comment on above: Performed By: #### P T ####[place] [address] Erythrocytes (RBC) 3.09 mil/cmm Low 4.63-6.08 [facility] Comment on above: Performed By: #### P T ####[place] [address] Hematocrit (HCT) 26.8 % Low 40.1-51.0 [facility] Comment on above: Performed By: #### P T ####[place] [address] Hemoglobin mass conc (Bld) 8.7 g/dL Low 13.7-17.5 [facility] Comment on above: Performed By: #### P T ####[facility] [place], [place] [address] Immature Grans 0.80 % Normal [facility] Comment on above: Performed By: #### P T ####[facility] [place], [place] [address] Lymphocytes 2.08 thou/cmm Normal 0.84-2.85 [facility] Comment on above: Performed By: #### P T ####[address] [address] Lymphocytes/100 leukocytes 22.8 % Normal [facility] Comment on above: Performed By: #### P T ####[address] [address] MCH 28.2 pg Normal 25.7-32.2 [facility] Comment on above: Performed By: #### P T ####[address] [address] MCHC mass conc (RBC) 32.5 % Normal 32.3-36.5 [facility] Comment on above: Performed By: #### P T ####[address] [address] MCV 86.7 fL Normal 83.2-95.6 [facility] Comment on above: Performed By: #### P T ####[address] [address] Monocytes/100 leukocytes 9.2 % Normal [facility] Comment on above: Performed By: #### P T ####[address] [address] Platelet mean volume (PMV) 9.7 fL Normal 8.7-12.0 [facility] Comment on above: Performed By: #### P T ####[address] [address] Platelets 256 thou/cmm Normal 141-365 [facility] Comment on above: Performed By: #### P T ####[place] [id number] RDW SD 47.3 fl High 36.1-45.8 [facility] Comment on above: Performed By: #### P T ####[place] [address] Seg Neutrophil 64.0 % Normal [facility] Comment on above: Performed By: #### P T ####[place] [id number] WBC (Leukocytes) 9.11 thou/cmm High 4.23-9.07 [facility] Comment on above: Performed By: #### P T ####[place] [id number] MDRD GFRon 09-15-2017 eGFR (non-black) mL/min/{1.73_m2} Normal >60mL/m in/ 1.73m2 [facility] Comment on above: Result Comment: If t he patient is , multiply the result by 1.210. Performed By: #### P T ####[place] [id number] Magnesium Bloodon 09-15-2017 Magnesium 2.1 mg/dL Normal 1.6-2.6 [facility] Comment on above: Performed By: #### P T ####[place] [id number] NURSING PROGon 09-15-2017 Protein mass conc HNO ID: [id number] Author: Gail (Rn) Saranya RN Service: Nursing Author Type: Registered Nurse Type: Nursing Progress Note Filed: 09/15/2017 12:26 PM Note Text: Transporters here Normal [facility] Protein mass conc HNO ID: [id number] thor: Melissa (Rn) KELLY Rowleyervice: NursingAuthor Type: Registered NurseType: Nursing Progress NoteFiled: 09/15/2017 8:09 AMNote Text:0805: Dr Breaux resident called endo, she wants the NG inserted to 60cmand LIWS with positive output.NG advanced from 30cm to 60cm and dark brown output 50cm collected withLIWS. Normal [facility] Protein mass conc HNO ID: [id number] Author: Olga (Rn) GREGORY Cochran Service: Nursing Author Type: Registered Nurse Type: Nursing Progress Note Filed: 09/14/2017 10:42 PM Note Text: Report called to Celena SEWELL, 4200. [facility] NUTRITIONon 09-15-2017 NUTRITION HNO ID: [id number] thor: Trish Gaming) OUMOU Santoservice: NST-Nutrition Support [...] SUPPORT TEAM PROGRESS NOTEPATIENT NAME: Cristina JeffreyN: [id number] OF : 1945DATE: 09/15/2017Nutritional Status: SEVERE PROTEIN-CALORIE [...] 3, tolerating TPN, transferred out of unit sb4831, remains NPO with NGT , No BM [...] (5' 9.02") Wt 83.5 kg (184 lb) IsP406% BMI 27.16 kg/m?Current Weight: Weight: 83.5 kg [...] Santos, CLAYTON, LD, CNSCPager: [phone]: 3 Normal [facility] OPERATIVE NOon 09-15-2017 OPERATIVE NO HNO ID: [id number] thor: Sagar Cornell MirService: GastroenterologyAuthor Type: PhysicianType: Operative ReportFiled: 09/19/2017 12:44 PMNote Text:[facility] - Operative ReportSURGEON: Sagar Dominguez MDPATIENT NAME: CRISTINA JEFFREY TMRN: [id number] CSN: [id number] OF SURGERY: 09/15/2017DATE OF : 1945 SEX/AGE: M/72PATIENT TYPE: I HOSP SVC: INT LOCATION: [id number] OF SURGERY: 09/15/2017SURGEON: LIGIA AlcarazEFERRLOCO PHYSICIANS: Chitra [...] leftlateral position. IV sedation was given by LIFE SKILLS COORDINATOR. Vital signs weremonitored throughout the procedure.The NG [...] Dominguez MDGastroenterologyGM:modlD: 09/15/2017 11:34:34T: 09/15/2017 21:35:40Job #: [id number]:Ashly Mayo MD [facility] PROGRESSon 09-15-2017 Protein mass conc HNO ID: [id number] thor: CANDICE Jensenervice: Hospital MedicineAuthor Type: PhysicianType: Progress NotesFiled: 09/16/2017 2:08 PMNote Text:[facility] [place] [facility] MEDICINEPROGRESS NOTESERVICE DATE: 09/15/2017SERVICE TIME: 7:39 PMHospital Medicine/Primary Attending: Nick Sanchez MDNIGHT AND WEEKEND COVERAGE:After 7pm please page [phone] COMPLAINT: GI bleedingSUBJECTIVE: discomfort in noses form [...] BALANCETEARS) 1 Drop BOTH EYES PRNphenol 1 [place] (CHLORASEPTIC) 1 [place] MUCOUS MEMBRANE (TOPICAL MOUTH ANDTHROAT) q 2 H PRNbenzocaine-menthol 1 Lozenge (CEPACOL) 1 Lozenge MUCOUS MEMBRANE (TOPICALMOUTH AND THROAT) q 2 H PRNondansetron (PF) 4 mg injection (ZOFRAN) 4 mg INTRAVENOUS q 6 H PRNdilTIAZem 100 mg in D5W 100 mL ADD-[place] (CARDIZEM) 5-15 mg/hrINTRAVENOUS CONTINUOUS0.9% NaCl 10 mL [...] LACTATE in the last 24 hours.MG/PHOS:Recent Labs 512902KL 2.1P 1.5*Renal Panel:Recent Labs [id number] 0.50*BUN 6*GLUC 165*CA 7.8*P 1.5*CHLOR 104K 3.0*CO2 [...] 2017 : 7:39 PM PAGER/CONTACT #: Nusrat [facility] Protein mass conc HNO ID: [id number] thor: Giselle ([facility]) CroomService: ElectrophysiologyAuthor Type: Nurse PractitionerType: Progress NotesFiled: [...] BP Temp Temp src Pulse Resp SpO2 Nzqddm99/25/18 1500 111/61 36.6 ?C (97.9 ?F) Oral [...] 250 mL 30 mmol INTRAVENOUS ONCEphenol 1 [place] (CHLORASEPTIC) 1 [place] MUCOUS MEMBRANE (TOPICAL MOUTH ANDTHROAT) q 2 H PRNbenzocaine-menthol 1 Lozenge (CEPACOL) 1 Lozenge MUCOUS MEMBRANE (TOPICALMOUTH AND THROAT) q 2 H PRNParenteral Nutrition - Adult INTRAVENOUS ONCE TPN (2199 START)ondansetron (PF) 4 mg injection (ZOFRAN) 4 mg INTRAVENOUS q 6 H PRNdilTIAZem 100 mg in D5W 100 mL ADD-[place] (CARDIZEM) 5-15 mg/hrINTRAVENOUS CONTINUOUS0.9% NaCl 10 mL [...] 104CO2 28CA 7.8*MG 2.1Last Lab Drawn:LDL Chol, Cobb 110 02/23/2010ssessment/PlanActiv e Problems: Severe protein-calorie malnutrition [...] Risk ) 40 mg SUBCUTANEOUS DAILY 05/22/18 0156 --SIGNATURE: Michelle Weeks, MSN, BILLING COORDINATOR.CAR PILOT PATIENT NAME: Cristina JeffreyDATE: September 15, 2017 : 4:24 PM PAGER/CONTACT #: [phone] [facility] Protein mass conc HNO ID: [id number] thor: Zuleika (Telegraphic Typewriter Operator) PhelanService: Pulmonary DiseaseAuthor Type: Nurse PractitionerType: Progress [...] mL/hr at 09/15/17 1254 30 mmol at 205415giiouw 1 [place] (CHLORASEPTIC) 1 [place] MUCOUS MEMBRANE (TOPICAL MOUTH ANDTHROAT) q 2 H PRN Safal N (Res) Avalos 1 [place] at 09/14/17 1105benzocaine-menthol 1 Lozenge (CEPACOL) 1 Lozenge MUCOUS MEMBRANE (TOPICALMOUTH AND THROAT) q 2 H PRN Safal N (Res) PatelParenteral Nutrition - Adult INTRAVENOUS ONCE TPN (0 START) HarishKakarala Last Rate: 100 mL/hr at 09/14/17 1800ondansetron (PF) 4 mg injection (ZOFRAN) 4 mg INTRAVENOUS q 6 H PRNAlessandra (Res) [place] 4 mg at 09/13/17 0013dilTIAZem 100 mg in D5W 100 mL ADD-[place] (CARDIZEM) 5-15 mg/hrINTRAVENOUS CONTINUOUS Safal N (Res) Avalos Last Rate: 12.5 mL/hr at09/15/17 0653 12.5 mg/hr at 09/15/17 62403.9% NaCl 10 mL 10 mL INTRAVENOUS q 12 H Safal N (Res) Avalos 10 mL at09/15/17 73526.9% NaCl 20 mL 20 mL INTRAVENOUS PRN [...] off. Please call with anyquestions/concerns.SIGNATU RE:Zuleika Gregorio APRN.CAR PILOT PATIENT NAME:Cristina JeffreyDATE:September 15, 2017 :3:02 PM PAGER/CONTACT #:[phone] [facility] Protein mass conc HNO ID: [id number] thor: Vicki (Res) Katie: General SurgeryAuthor Type: [...] 09/15/17 0659 09/15/17 0700 - 09/16/17 0659Shift [id number] 6132-7432 3307-0563 24 Hour Total 0825-4189 [id number] 24 Hour TotalINTAKE IV 582.7 414.2 996.9 [...] mL 20 mEqINTRAVENOUS q 2 Hphenol 1 [place] (CHLORASEPTIC) 1 [place] MUCOUS MEMBRANE (TOPICAL MOUTH ANDTHROAT) q 2 H PRNbenzocaine-menthol 1 Lozenge (CEPACOL) 1 Lozenge MUCOUS MEMBRANE (TOPICALMOUTH AND THROAT) q 2 H PRNParenteral Nutrition - Adult INTRAVENOUS ONCE TPN (2200 START)ondansetron (PF) 4 mg injection (ZOFRAN) 4 mg INTRAVENOUS q 6 H PRNdilTIAZem 100 mg in D5W 100 mL ADD-[place] (CARDIZEM) 5-15 mg/hrINTRAVENOUS CONTINUOUS0.9% NaCl 10 mL [...] this interval not displayed.Exam:GENERAL: No distress, AlertNEURO: [id number]: normocephalic, atraumaticLUNGS: Unlabored breathingCARDIAC: Regular rate and rhythm as aboveABDOMEN: soft, + very distended (increased from yesterday), but pt deniespainEXTREMITIES: JERONIMO, No deformities, No edemaSKIN: Skin color, texture, turgor normal, No rashes or lesionsASSESSMENT AND PLAN:Active Hospital Problems Diagnosis Date Noted- Atrial fibrillation with RVR (HCC) 09/12/2017- Hematemesis 09/12/2017 Overview Note: Added automatically from request for surgery [id number]- Gastric outlet obstruction 09/12/2017 Overview Note: Added automatically from request for surgery [id number]- Severe protein-calorie malnutrition (HCC) 07/03/201772 YOM with [...] Breaux, DOGeneral Surgery PGY-4May 2017 6:27 AMPager: [phone] Normal [facility] PT EDon 09-15-2017 PT ED HNO ID: [id number] thor: Tanya BarnettRn) KELLY Farleyervice: GastroenterologyAuthor Type: [...] bed or with questions, emergent symptoms Normal [facility] PT ED HNO ID: [id number] thor: Tanya Spear) KELLY Farleyervice: GastroenterologyAuthor Type: [...] position, emergent symptoms or questionsabout care. Normal [facility] Phosphorus Bloodon 8 Phosphate 1.5 mg/dL Critically low 2.5-4.9 [facility] Comment on above: Performed By: #### P T ####[place] [address] Surgical Tissue Examon 09-15 Surgical Tissue Exam Test performed at [place] [id number]: CRISTINA JEFFREY [id number] REQUESTING: SAGAR DOMINGUEZ M.D.FINAL DIAGNOSIS: GASTRIC ANTRUM, [...] 16:21PRINTED: 09/19/2017 Page 1 of 1 Normal [facility] Comment on above: Performed By: #### P T ####[place] [id number] THERAPY NTon 09-15-2017 THERAPY NT HNO ID: [id number] thor: Ana Cristina (Pt) SturmService: Physical TherapyAuthor Type: Physical TherapistType: Therapy (PT/OT/Speech/Resp)Filed: 09/15/2017 2:07 PMNote Text:PHYSICAL THERAPY MISSED VISITSERVICE DATE: 09/15/2017SERVICE TIME: 1315 to 1315ROOM: [id number]-Attempted Evaluation. Patient not seen due to (EDG). Will reattempt asable.SIGNATURE: Ana Cristina Walker PT PATIENT NAME: Cristina JeffreyDATE: September 15, 2017 : 2:07 PM PAGER/CONTACT #: [phone] Normal [facility] THERAPY NT HNO ID: [id number] thor: Marnie (Otr/L) TrinyService: Occupational TherapyAuthor Type: Occupational TherapistType: Therapy (PT/OT/Speech/Resp)Filed: 09/15/2017 2:02 PMNote Text:OCCUPATIONAL THERAPY MISSED VISITSERVICE DATE: 09/15/2017SERVICE TIME: 1401 to 1401ROOM: [id number] Evaluation. Patient not seen due to (just returned fromEGD/partially sedated). Will reattempt as able/appropriate.SIGNATURE: Marnie Agosto, OTR/L PATIENT NAME: Cristina MooreTE: September 15, 2017 : 2:02 PM PAGER/CONTACT #: Normal [facility] ALLIED HEALTHon 09-14-2017 ALLIED HEALTH HNO ID: [id number] thor: Zayra Bermudez Office CoordService: (none)Author Type: (none)Type: Allied HealthFiled: 09/14/2017 12:19 PMNote Text:SHUTTLE BUS DRIVER NOTESERVICE DATE: 09/14/2017SERVICE TIME: 12:19 PMReferral:Home Care referral received by: Jered continue to follow for physician ordersSIGNATURE: Zayra Bermudez Office Coord PATIENT NAME: Cristina JeffreyDATE: September 14, 2017 : 12:18 PM Normal [facility] Basic Panelon 09-14-2017 Creatinine 0.52 mg/dL Low 0.67-1.17 [facility] Comment on above: Performed By: #### P T ####[place] [address] Urea nitrogen 10 mg/dL Normal 7-18 [facility] Comment on above: Performed By: #### P T ####[place] [address] Calcium 7.0 mg/dL Low 8.5-10.1 [facility] Comment on above: Performed By: #### P T ####[facility] [place] [address] Glucose mass conc 72 mg/dL Normal 70-99 [facility] Comment on above: Performed By: #### P T ####[facility] [place] [address] Anion gap 10 mmol/L Normal 8-16 [facility] Comment on above: Performed By: #### P T ####[facility] [place] [address] CO2 23 mmol/L Normal 21-32 [facility] Comment on above: Performed By: #### P T ####[place] [address] Chloride 108 mmol/L High 98-107 [facility] Comment on above: Performed By: #### P T ####[place] [address] Potassium molar conc 3.5 mmol/L Normal 3.5-5.1 [facility] Comment on above: Performed By: #### P T ####[place] [address] Sodium 137 mmol/L Normal 136-145 [facility] Comment on above: Performed By: #### P T ####[place] [address] CASE MGT INIT ASSESon 2017 CASE MGT INIT ASSCASIE HNO ID: [id number] thor: Zoë (Rn) KELLY Alexanderervice: Care ManagementAuthor Type: Registered NurseType: Care Mgt Initial AssessmentFiled: 09/14/2017 12:11 PMNote Text:CARE MANAGEMENT: ASSESSMENT AND DISCHARGE PLANSERVICE DATE: 09/14/2017SERVICE TIME: 1056PRIMARY CARE PHYSICIAN:ENRIQUE Perez [place]: [phone] STATUS: InpatientNeeds Prior to Discharge: To Be DeterminedMEDICAL:Patient/Rep resentative Stated Goals:To return home to life as it wasHealth Insurance: MEDICARE A AND BMedicaidHealth Issues Impacting Discharge Plan: A-fibLast Admission Date: Previous admit date: 06/23/2017Is this Within the Past 30 days? NoAdvance Directive:Current Advance Directive: NoneCare Production Officer Assisted with AD Completion: NoHealth Literacy:1. How [...] Community Services or Home Care?Passport FELIPE Olivia [phone]. Patient states hasmeals on wheels, and plan to be set up with emergency alert.Equipment Prior to Admission: Aerosols/Intermittent positivebreathing/Respiratory TreatmentsHand Held ShowerTub bench/chairHas the Patient Been in a Fdc Facility in the Past 30 days?Patient was at [facility] in June.SOCIAL:Living Arrangement: HomeLives With: AloneFinancial Resources: N/APrimary Contact: Extended Emergency Contact InformationPrimary Emergency Contact: [place] [address] [facility] Qjadtbjo: SisterSupportive: YesOther Important Patient Contacts: NoneCaregiver Assessment:Caregiver [...] - 0I feel financially burdened by my bze-xb-frcutk expenses for myprescription medication: Disagree completely - [...] enough to plan to return home with [facility], butif he should need rehab at discharge his choice is [facility]. for [facility] [phone] to call CM.Will continue to follow clinical progress for discharge planning.SIGNATURE: Zoë Alexander RN PATIENT NAME: Cristina JeffreyDATE: September 14, 2017 : 11:57 AM CONTACT #: [id number] [facility] CONSULTon 09-14-2017 CONSULT HNO ID: [id number] thor: Neema Lagunaservice: ElectrophysiologyAuthor Type: PhysicianType: ConsultsFiled: 09/14/2017 5:09 PMNote Text:CONSULT NOTESERVICE DATE: 09/14/2017SERVICE TIME: 12:00 PMPHYSICIAN CONSULT (AK,AV,EU,FV,HL,GERRY,MM,SP)Cons ult performed by: NEEMA MAHERHConsnisha ordered by: Liat MIRELES for consult: Atrial fibrillation.PRIMARY CARE PHYSICIAN: CANDIEC Perez ChiBYZwqgkcnhxhNWB64-oscy-spy male with history of essential hypertension, COPD, [...] tablet Rfl: 0 09/11/2017 at Unknown timeVit A,C,K-Udef-Keqvwi (PRESERVISION AREDS) 14,320-226-200 mmqg-wx-rusbhmv Take 1 capsule by mouth twice daily. [...] 09/11/2017 at Unknown timeCurrent hospital medications:phenol 1 Amenia (CHLORASEPTIC) 1 Amenia MUCOUS MEMBRANE (TOPICAL MOUTH ANDTHROAT) q 2 [...] CONTINUOUSdilTIAZem 100 mg in D5W 100 mL ADD-[place] (CARDIZEM) 5-15 mg/hrINTRAVENOUS CONTINUOUS0.9% NaCl 10 mL [...] BP Temp Temp src Pulse Resp SpO2 [place]10/24/18 1600 114/62 36.1 ?C (97 ?F) Axillary [...] diltiazem and digoxin, no immediate plans for synagogue ofsinus rhythm, as the patient cannot be safely anticoagulated.SIGNATURE: Neema Maher MD PATIENT NAME: Cristina JeffreyDATE: September 14, 2017 : 5:02 PM PAGER: [phone] Normal [facility] CONSULT PROGon 09-14-2017 Protein mass conc HNO ID: [id number] thor: Toshia (Fitness Consultant) Domingoervice: GastroenterologyAuthor Type: Nurse SpecialistType: Consult Progress NoteFiled: 09/14/2017 2:23 PMNote Text:GI CONSULT PROGRESS NOTESERVICE DATE: 09/14/2017SERVICE TIME: 2:13 PMCONSULTING SERVICE: GastroenterologySubjectiveINT ERVAL HISTORY: Still has NG with scant bloody drainage. Wants to eat -says he is hungryMEDICATIONS:Current hospital medications:phenol 1 Amenia (CHLORASEPTIC) 1 [place] MUCOUS MEMBRANE (TOPICAL MOUTH ANDTHROAT) q 2 [...] CONTINUOUSdilTIAZem 100 mg in D5W 100 mL ADD-[place] (CARDIZEM) 5-15 mg/hrINTRAVENOUS CONTINUOUS0.9% NaCl 10 mL [...] Dominguez?GI will continue to followSIGNATURE: Toshia Epperson APRN.VEGETABLE FARMER PATIENT NAME: Cristina JeffreyDATE: September 14, 2017 : 2:13 PM PAGER/CONTACT #: [phone] Normal [facility] Hemogram/Diffon 09-14-2017 Abs Immature Grans 0.08 thou/cmm High 0.00-0.05 [facility] Comment on above: Performed By: #### P T ####[place] [address] Abs. Baso 0.03 thou/cmm Normal 0.01-0.08 [facility] Comment on above: Performed By: #### P T ####[facility] [place] [address] Abs. Scurry 0.72 thou/cmm Normal 0.30-0.82 [facility] Comment on above: Performed By: #### P T ####[place] [address] Abs. Neut (ANC) 4.64 thou/cmm Normal 1.78-5.38 [facility] Comment on above: Performed By: #### P T ####[place] [address] Basophils/100 WBC Auto (Bld) 0.4 % Normal [facility] Comment on above: Performed By: #### P T ####[place] [address] Eosinophils 0.30 thou/cmm Normal 0.04-0.54 [facility] Comment on above: Performed By: #### P T ####[place] [address] Eosinophils/100 leukocytes 4.2 % Normal [facility] Comment on above: Performed By: #### P T ####[place] [address] Erythrocyte distribution width Auto Ratio (RBC) 15.2 % High 11.6-14.4 [facility] Comment on above: Performed By: #### P T ####[place] [address] Erythrocytes (RBC) 2.91 mil/cmm Low 4.63-6.08 [facility] Comment on above: Performed By: #### P T ####[place] [address] Hematocrit (HCT) 26.1 % Low 40.1-51.0 [facility] Comment on above: Performed By: #### P T ####[place] [address] Hemoglobin mass conc (Bld) 8.2 g/dL Low 13.7-17.5 [facility] Comment on above: Performed By: #### P T ####[facility] [place] [address] Immature Grans 1.10 % Normal [facility] Comment on above: Performed By: #### P T ####[place] [address] Lymphocytes 1.43 thou/cmm Normal 0.84-2.85 [facility] Comment on above: Performed By: #### P T ####[address] [address] Lymphocytes/100 leukocytes 19.9 % Normal [facility] Comment on above: Performed By: #### P T ####[place] [address] MCH 28.2 pg Normal 25.7-32.2 [facility] Comment on above: Performed By: #### P T ####[place] [address] MCHC mass conc (RBC) 31.4 % Low 32.3-36.5 [facility] Comment on above: Performed By: #### P T ####[place] [address] MCV 89.7 fL Normal 83.2-95.6 [facility] Comment on above: Performed By: #### P T ####[address] [address] Monocytes/100 leukocytes 10.0 % Normal [facility] Comment on above: Performed By: #### P T ####[place] [address] Platelet mean volume (PMV) 9.9 fL Normal 8.7-12.0 [facility] Comment on above: Performed By: #### P T ####[place] [address] Platelets 210 thou/cmm Normal 141-365 [facility] Comment on above: Performed By: #### P T ####[place] [address] RDW SD 48.9 fl High 36.1-45.8 [facility] Comment on above: Performed By: #### P T ####[facility] [place], [place] [address] Seg Neutrophil 64.4 % Normal [facility] Comment on above: Performed By: #### P T ####[address] [address] WBC (Leukocytes) 7.20 thou/cmm Normal 4.23-9.07 [facility] Comment on above: Performed By: #### P T ####[address] [address] Ionized Calciumon 09-14-2017 Ionized Ca,PH7.4 3.89 mg/dL Low 4.36-4.73 [facility] Comment on above: Performed By: #### P T ####[place] [address] Ionized Calcium 4.07 mg/dL Low 4.43-4.93 [facility] Comment on above: Performed By: #### P T ####[address] [address] pH of blood 7.311 [pH] Low 7.320-7.42 0 [facility] Comment on above: Performed By: #### P T ####[address] [address] MDRD GFRon 09-14-2017 eGFR (non-black) mL/min/{1.73_m2} Normal >60mL/m in/ 1.73m2 [facility] Comment on above: Result Comment: If t he patient is , multiply the result by 1.210. Performed By: #### P T ####[address] [address] Magnesium Bloodon 09-14-2017 Magnesium 2.1 mg/dL Normal 1.6-2.6 [facility] Comment on above: Performed By: #### P T ####[address] [address] PROGRESSon 09-14-2017 Protein mass conc HNO ID: [id number] thor: Jorje Alvarado (Res) PatelService: Critical CareAuthor Type: ResidentType: Progress NotesFiled: 09/14/2017 11:30 AMNote Text: At testation signed by Noe Quick at 09/14/2017 12:27 [facility] STAFF PHYSICIAN NOTE OF PERSONAL INVOLVEMENT [...] of care, medical plan for the day, search consultant recommendations, medicaldisposition and current medical condition/prognosis [...] critical care services: 20 minutes.SIGNATURE: Noe Quick [facility]IR[facility] INSTITUTEPAGER:[phone] of SERVICE: September 14, 2017TIME of SERVICE: 12:22 PM Medic al Intensive Care Progress NoteMay 2017Patient Name: Cristina eJffrey [id number] Date: 09/12/2017 Length of Stay: 2Primary [...] tablet by mouthtwice daily for 14 days.Vit A,C,V-Hliw-Qnridk (PRESERVISION AREDS) 14,320-226-200 cvvu-zv-syjgvhz Take 1 capsule by mouth twice daily.albuterol [...] 0351dilTIAZem 100 mg in D5W 100 mL ADD-[place] (CARDIZEM) 5-15 mg/hrINTRAVENOUS CONTINUOUS Safal N (Res) Avalos Last Rate: 5 mL/hr at 730 5 mg/hr at 09/14/17 02685.9% NaCl 10 mL 10 mL INTRAVENOUS q 12 H Safal N (Res) Patel0.9% NaCl 20 mL 20 mL INTRAVENOUS PRN Safal N (Res) Patelbenzocaine-menthol 1 Lozenge (CEPACOL) 1 Lozenge MUCOUS MEMBRANE (TOPICALMOUTH AND THROAT) q 2 H PRN Ravkiran (Res) Ritesh 1 Lozenge at 164899fdloufwfna 20 % mucosal spray (HURRICAINE ONE) MUCOUS [...] 0.9% 250 mL 4 g INTRAVENOUS PRN Annle(Res) [place]ord Last Rate: 62.5 mL/hr at 09/14/17 [...] -- 0.4LIPASE 639* --GFR: > 60Phosphorus: 1.3Magnesium: 2.0GI50-2: 8.1Intake/Output Summary (Last 24 hours) at 09/14/17 [...] MDDate: September 14, 2017Time: 7:58 AM Normal [facility] Protein mass conc HNO ID: [id number] thor: Vicki (Res) Katie: General SurgeryAuthor Type: [...] 09/14/17 0659 09/14/17 07 - 09/15/17 0659Shift 3744-9623 7537-2836 7725-2477 24 Hour Total 7812-8267 0323-31947123-1652 24 Hour TotalINTAKE PO 0 0 0 0 PO 0 0 0 0 IV 569 830.5 1287 2686.5 IVPB 250 250 NS 0.9% 472 333 700 0228 Calcium IVPB 250 250 Diltiazem Volume 97 105.5 32 234.5 Irrigants 60 60 Irrigant/Flush Amount In ([REMOVED] GI Feed/Drain 09/12/17 0700Nasogastric Right 09/13/17 1321) 60 60 Shift Total 629 830.5 1287 2746.5OUTPUT Urine 1200 142 635 9164 Void (ml) 370 370 Tube Output ( Indwelling Urinary Catheter 09/13/17 1145 Miranda 16Fr) 830 736 174 2566 Tubes 770 100 100 970 Output ([REMOVED] GI Feed/Drain 09/12/17 0700 Nasogastric Right09/13/17 1321) 20 0 20 Output (GI Feed/Drain 09/13/17 1322 Nasogastric Right Naris 18 Fr) 089887 100 950 # of BMs Number of BMs 0 x 0 x 0 x Shift Total 1970 855 940 3765Weight (kg) 80.9 80.9 84.3 84.3 84.3 84.3 84.3 84.3Current Facility-Administered Medications:ondansetron (PF) 4 mg injection (ZOFRAN) 4 mg INTRAVENOUS q 6 H PRNNaCl 0.9% iv infusion 100 mL/hr INTRAVENOUS CONTINUOUSdilTIAZem 100 mg in D5W 100 mL ADD-[place] (CARDIZEM) 5-15 mg/hrINTRAVENOUS CONTINUOUS0.9% NaCl 10 mL [...] small tocharacterize by CT?criteria.Exam:GENERAL: No distress, AlertNEURO: [id number]: normocephalic, atraumaticLUNGS: Unlabored breathingCARDIAC: Regular rate and [...] Breaux, DOGeneral Surgery PGY-4May 2017 6:21 AMPager: [phone] Normal [facility] Phosphorus Bloodon 8 Phosphate 1.3 mg/dL Critically low 2.5-4.9 [facility] Comment on above: Performed By: #### P T ####[place] [address] Prealbuminon 09-14-2017 Prealbumin 12.8 mg/dL Low 20.0-40.0 [facility] Comment on above: Performed By: #### P T ####[place] [address] Basic Panelon 09-13-2017 Creatinine 0.67 mg/dL Normal 0.67-1.17 [facility] Comment on above: Performed By: #### P T ####[place] [address] Anion gap 6 mmol/L Low 8-16 [facility] Comment on above: Performed By: #### P T ####[place] [address] CO2 27 mmol/L Normal 21-32 [facility] Comment on above: Performed By: #### P T ####[place] [address] Glucose mass conc 90 mg/dL Normal 70-99 [facility] Comment on above: Performed By: #### P T ####[place] [address] Urea nitrogen 20 mg/dL High 7-18 [facility] Comment on above: Performed By: #### P T ####[place] [address] Calcium 7.8 mg/dL Low 8.5-10.1 [facility] Comment on above: Performed By: #### P T ####[facility] [place] [address] Chloride 106 mmol/L Normal 98-107 [facility] Comment on above: Performed By: #### P T ####[facility] [place] [address] Potassium molar conc 4.1 mmol/L Normal 3.5-5.1 [facility] Comment on above: Performed By: #### P T ####[facility] [place] [address] Sodium 135 mmol/L Low 136-145 [facility] Comment on above: Performed By: #### P T ####[place] [address] PJ60-4js 09-13-2017 CA19-9 8.1 U/ml Normal 0.0-35.0 [facility] Comment on above: Performed By: #### P T ####[place] [address] CASE MANAGEMon 09-13-2017 CASE MANAGEM HNO ID: [id number] thor: Zoë (Rn) Benjamin, RNService: Care ManagementAuthor Type: Registered NurseType: Care Mgt Progress NoteFiled: 09/13/2017 3:15 PMNote Text:CARE MANAGEMENT PROGRESS NOTESERVICE DATE: 09/13/2017SERVICE TIME: 1512 LOS: 1 dayPatient unavailable (undergoing a bedside procedure). Will attempt toassess tomorrow.SIGNATURE: Zoë Alexander RN PATIENT NAME: Cristina JeffreyDATE: September 13, 2017 : 3:12 PM CONTACT #: [id number] Normal [facility] CHEST 1 VIEWon 09-13-2017 CHEST 1 VIEW Performed at [facility] APPROVED BY: Davon Sorensen MD EXAMINATION: CHEST [...] tip near the caval atrial junction. Normal [facility] CONSULTon 09-13-2017 CONSULT HNO ID: [id number] thor: Toshia ([facility]) Domingoervice: GastroenterologyAuthor Type: Nurse SpecialistType: ConsultsFiled: 09/13/2017 [...] tablet by mouthtwice daily for 14 days.Vit A,C,F-Tfba-Kumimu (PRESERVISION AREDS) 14,320-226-200 ttsv-hm-htjvbli Take 1 capsule by mouth twice daily.albuterol [...] CONTINUOUSdilTIAZem 100 mg in D5W 100 mL ADD-[place] (CARDIZEM) 5-15 mg/hrINTRAVENOUS CONTINUOUSlidocaine 10 mg/mL (1 [...] 13, 2017 : 3:02 PM PAGER/CONTACT #: [phone] [facility] CT ABDOMEN AND PELVIS WITH C ONTRASTon 09-13-2017 CT ABDOMEN AND PELVIS WITH CONTRAST Performed at [facility] APPROVED BY: Guillermo Ulloa MD EXAMINATION: CT [...] small to characterize by CT criteria. Normal [facility] CT CHEST WITH CONTRASTon CT CHEST WITH CONTRAST Performed at [facility] APPROVED BY: Guillermo Ulloa MD EXAMINATION: CT [...] small to characterize by CT criteria. Normal [facility] ED NOTEon 09-13-2017 ED NOTE HNO ID: [id number] thor: Claudio (Rn) KELLY Dollervice: Emergency MedicineAuthor Type: Registered NurseType: ED NotesFiled: 09/12/2017 10:02 PMNote Text: Report given to Gregory Harmon at this time. Aware of outstanding CT's tomorrowmorning. Bed not ready at this time Normal [facility] ED PROV NOTEon 09-13-2017 Protein mass conc HNO ID: [id number] thor: CANDICE Torreservice: Emergency MedicineAuthor Type: PhysicianType: [...] Orta MD2:16 2017Radha Orta MD/ 0717 Normal [facility] Hemogram/Diffon 09-13-2017 Abs Immature Grans 0.07 thou/cmm High 0.00-0.05 [facility] Comment on above: Performed By: #### P T ####[place] [address] Abs. Baso 0.03 thou/cmm Normal 0.01-0.08 [facility] Comment on above: Performed By: #### P T ####[place] [address] Abs. Scurry 1.01 thou/cmm High 0.30-0.82 [facility] Comment on above: Performed By: #### P T ####[place] [address] Abs. Neut (ANC) 5.01 thou/cmm Normal 1.78-5.38 [facility] Comment on above: Performed By: #### P T ####[place] [address] Basophils/100 WBC Auto (Bld) 0.4 % Normal [facility] Comment on above: Performed By: #### P T ####[place] [address] Eosinophils 0.10 thou/cmm Normal 0.04-0.54 [facility] Comment on above: Performed By: #### P T ####[facility] [place] [address] Eosinophils/100 leukocytes 1.3 % Normal [facility] Comment on above: Performed By: #### P T ####[place] [address] Erythrocyte distribution width Auto Ratio (RBC) 15.4 % High 11.6-14.4 [facility] Comment on above: Performed By: #### P T ####[place] [address] Erythrocytes (RBC) 3.14 mil/cmm Low 4.63-6.08 [facility] Comment on above: Performed By: #### P T ####[place] [address] Hematocrit (HCT) 28.4 % Low 40.1-51.0 [facility] Comment on above: Performed By: #### P T ####[place] [address] Hemoglobin mass conc (Bld) 9.1 g/dL Low 13.7-17.5 [facility] Comment on above: Performed By: #### P T ####[place] [address] Immature Grans 0.90 % Normal [facility] Comment on above: Performed By: #### P T ####[place] [address] Lymphocytes 1.74 thou/cmm Normal 0.84-2.85 [facility] Comment on above: Performed By: #### P T ####[place] [address] Lymphocytes/100 leukocytes 21.8 % Normal [facility] Comment on above: Performed By: #### P T ####[place] [address] MCH 29.0 pg Normal 25.7-32.2 [facility] Comment on above: Performed By: #### P T ####[facility] [place], [place] [address] MCHC mass conc (RBC) 32.0 % Low 32.3-36.5 [facility] Comment on above: Performed By: #### P T ####[address] [address] MCV 90.4 fL Normal 83.2-95.6 [facility] Comment on above: Performed By: #### P T ####[place] [id number] Monocytes/100 leukocytes 12.7 % Normal [facility] Comment on above: Performed By: #### P T ####[address] [address] Platelet mean volume (PMV) 9.7 fL Normal 8.7-12.0 [facility] Comment on above: Performed By: #### P T ####[place] [address] Platelets 212 thou/cmm Normal 141-365 [facility] Comment on above: Performed By: #### P T ####[address] [address] RDW SD 50.4 fl High 36.1-45.8 [facility] Comment on above: Performed By: #### P T ####[address] [address] Seg Neutrophil 62.9 % Normal [facility] Comment on above: Performed By: #### P T ####[address] [address] WBC (Leukocytes) 7.97 thou/cmm Normal 4.23-9.07 [facility] Comment on above: Performed By: #### P T ####[address] [address] MDRD GFRon 09-13-2017 eGFR (non-black) mL/min/{1.73_m2} Normal >60mL/m in/ 1.73m2 [facility] Comment on above: Result Comment: If t he patient is , multiply the result by 1.210. Performed By: #### P T ####[place] [address] NUTRITIONon 09-13-2017 NUTRITION HNO ID: [id number] thor: Monty (Clayton) OUMOU Glasservice: Nutrition TherapyAuthor Type: Registered DietitianType: NutritionFiled: 09/13/2017 12:40 PMNote Text:NUTRITION THERAPY INITIAL ASSESSMENTSERVICE DATE: 09/13/2017SERVICE TIME: 11:47 AMeval for TPN recommendationsRECOMMENDED MALNUTRITION DIAGNOSIS: SEVERE FTJADEH-OMNVKJFIDLGWHBYUMLO-F CUTEIn the context of Acute Illness or [...] Diagnosis Date Noted- Atrial fibrillation with RVR ([facility]) 09/12/2017PAST MEDICAL HISTORYDiagnosis Date- Afib ([facility])- CHF (congestive heart failure) ([facility])- COPD (chronic obstructive pulmonary disease) ([facility])- HypertensionPresent Diet Order: NPOEnteral Access: NG, PICC insertion today?Nutritional Intake Prior to Admission: 0-25% estimated energy needs overthe past 2 week(s)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, and eatingvery little.GI symptoms: nausea and chewing [...] lb)07/02/17 : 86.7 kg (191 lb 1.6 oz)[place] Body Weight: 71kgResting Metabolic Rate: 1554Estimated kilocalorie needs: 5921-7669 kilocalories determined by 25-30kcal/kgEstimated protein needs: 78-107 [...] AMOdor No 09/13/2017 7:36 AMWound Surface Color [place] 09/13/2017 7:36 AMSurrounding Skin Intact 09/12/2017 10:53 PMNumber of days: 0MNT Billing Type: Initial Assess/15 min 3 unitsSIGNATURE: Monty Glass RD, LD PATIENT NAME: Cristina JeffreyDATE: September 13, 2017 : 11:47 AM PAGER: [phone] Normal [facility] PROCEDUREon 09-13-2017 Protein mass conc HNO ID: [id number] thor: Jayne (Rn) KELLY Traylorervice: PICC TeamAuthor Type: Registered NurseType: ProceduresFiled: 02/01/2018 12:00 PMNote Text:PICC NURSE INSERTION NOTEDATE OF PROCEDURE: September 13, 2017TIME OF PROCEDURE: 1500ORDERING PHYSICIAN: Dr. MirelesINFORMSUJATHA CONSENT: Obtained per hospital policy.INDICATION FOR LINE PLACEMENT: TPNCONDITION OF LINE PLACEMENT: SterilePRIMARY PROCEDURALIST: SIA LeungSISTANT: Estefani Alxe RNPRE-PROCEDURE REVIEWALLERGIESNo Known AllergiesKnown History of Venous [...] to use.Jayne Traylor RNCATHETER PLACEMENTBrand: Arrow/Chloragard Lot: [id number] of Lumens: 2Type of PICC: ChloragardLumen Size: [...] NoneCOMPLICATIONS: NonePatient Education Materials: Placed in chart [facility] Central Line Insertion Checklist utilizedduring this procedureQUESTIONS or PROBLEMS: Call [id number]: Jayne Traylor RN PATIENT NAME: Cristina JeffreyDATE: September 13, 2017 : 3:47 PM PAGER/CONTACT PHONE: [facility] PROGRESSon 09-13-2017 Protein mass conc HNO ID: [id number] thor: Neema Lagunaservice: ElectrophysiologyAuthor Type: PhysicianType: Progress NotesFiled: 09/13/2017 4:01 PMNote Text:72-year-old male with history of paroxysmal atrial fibrillation, notanticoagulated because of recurrent GI bleed, admitted with suspected GIbleed, in atrial fibrillation with RVR. Currently on rate control strategywith intravenous diltiazem, receiving digoxin load as well. Agree withabove, full consult. [facility] Protein mass conc HNO ID: [id number] thor: Jorje Alvarado (Adelina) PatelService: Critical CareAuthor Type: ResidentType: Progress NotesFiled: 09/13/2017 11:56 AMNote Text: At testation signed by Noe Quick at 09/13/2017 12:43 PM (Updated)[facility] STAFF PHYSICIAN NOTE OF PERSONAL INVOLVEMENT IN [...] of care, medical plan for the day, search consultant recommendations, medicaldisposition and current medical condition/prognosis [...] critical care services: 40 minutes.SIGNATURE: Noe Quick [facility] RESPIRATORY INSTITUTEPAGER:[phone] of SERVICE: September 13, 2017TIME of SERVICE: 12:21 PM Medic al Intensive Care Progress NoteMay 2017Patient Name: Cristina Jeffrey Patient Location: [id number] [id number]* Date: 09/12/2017 Length of Stay: 1Primary Service: [...] tablet by mouthtwice daily for 14 days.Vit A,C,O-Ziag-Lvmfmv (PRESERVISION AREDS) 14,320-226-200 txii-xy-urelqka Take 1 capsule by mouth twice daily.albuterol [...] this should beconfirmed byultrasound.Notable morning labs:Labs:CBC:Recent Labs 253254 WBC 7.97 9.36*HB 9.1* 9.9*HCT 28.4* 30.0*PLT [...] Chronic normocytic anemiaJorje Avalos MD09/13/1810:50 AM Normal [facility] Protein mass conc HNO ID: [id number] thor: Venus Vegae: General SurgeryAuthor Type: PhysicianType: [...] 09/13/17 0659 09/13/17 0700 - 09/14/17 0659Shift 8040-4483 1561-4481 6602-0362 24 Hour Total 3849-0299 8552-40935974-2024 24 Hour TotalINTAKE PO 0 0 PO [...] 212 258INR -- 1.13Exam:GENERAL: No distress, AlertNEURO: [id number]: normocephalic, atraumaticLUNGS: Unlabored breathingCARDIAC: Regular rate and [...] results.?Vicki Breaux, DOGeneral Surgery PGY-4Ma2017 6:09 AMPager: [phone] also consult GI for an EGD to evaluate if this is from ulcer or fromtumor in pancreas.Venus Foster MD2:00 PM09/13/17 [facility] PT EDon 09-13-2017 PT ED HNO ID: [id number] thor: Jayne (Rn) Layton, RNService: PICC TeamAuthor Type: Registered NurseType: Patient EducationFiled: 09/13/2017 3:47 PMNote Text:PATIENT EDUCATION TOPIC: PROCEDURE / SURGERY: Procedure/Surgery: PICCInsertionPATIENT NAME: Cristina JeffreyMRN: [id number] LOCATION: [place] [address]/[place] [address]*READ INESS TO LEARNCOGNITIVE ABILITY: Alert and orientedMOTIVATION TO LEARN: InterestedFAMILY SUPPORT: Unable to assess - Family not presentINSTRUCTION PROVIDED TO: PatientPATIENT LEARNS BEST BY: Written Instruction - Hand-outsVerbal InstructionFACTORS AFFECTING LEARNING: NonePHYSICAL LIMITATIONS AFFECTING LEARNING: NoneLEARNING RESPONSEDIAGNOSIS: ADULT: TPNPATIENT/FAMILY RESPONSE: Verbalizes understanding of: TWQR-GTIDYPVVXPIANHYQJTJQR-Lq rrect actions to take to reduce post procedurecomplicationsPRE-PRO CEDURE INSTRUCTIONS-Correct action to take to follow pre-procedureinstructionsMETH OD OF INSTRUCTION: Verbal instructionFOLLOW-UP PLAN: Complete - No need for follow-upINSTRUCTIONAL AIDS USED: Picc Line BookSUPPLEMENTAL MATERIAL PROVIDED TO PATIENT: Catheter-Associatedbloodstrea m infection sheetREFERRAL (RECOMMENDATION): NoneElectronically Signed By: Jayne Traylor RN [facility] ANES Paras 09-12-2017 ANES POST HNO ID: [id number] Author: Aubrey Bueno Service: Anesthesiology Author Type: Physician Type: Anesthesia PostOp Filed: 09/12/2017 3:39 PM Note Text: Pt transported to ED, fully monitored, by [facility] sophia [facility] ANES PREOPon 09-12-2017 ANES PREOP HNO ID: [id number] thor: Aubrey TsuiService: AnesthesiologyAuthor Type: PhysicianType: Anesthesia [...] 12, 2017 : 3:32 PM PAGER: Normal [facility] CEAon 09-12-2017 CEA 1.7 ng/mL Normal 0.0-3.0 [facility] Comment on above: Result Comment: The reference range shown is for adult non-smokers.The range for smokers is 0-5.0Testing performed by Chemiluminescence LOCI. Performed By: #### P T ####[place] [address] CHEST 1 VIEWon 09-12-2017 CHEST 1 VIEW Performed at [facility] APPROVED BY: Justen Hennessy MD EXAMINATION: CHEST [...] LEAST 10 CM. LUNGS REMAIN CLEAR. Normal [facility] CHEST 1 VIEW Performed at [facility] APPROVED BY: Justen Hennessy MD EXAMINATION: CHEST [...] or active intrathoracic abnormality is seen. Normal [facility] CONSULTon 09-12-2017 CONSULT HNO ID: [id number] thor: Raul (Res) Constancee: General SurgeryAuthor Type: [...] medications:dilTIAZem 100 mg in D5W 100 mL ADD-[place] (CARDIZEM) 5-15 mg/hrINTRAVENOUS CONTINUOUSAllergies As of Date: 09/12/2017(No Known Allergies)Fully Assessed 09/12/2017COMPLETE REVIEW OF SYSTEMS:10 pt ROS performed and negative except as in HPI.ObjectivePHYSICAL EXAM:Physical Exam Performed:Gen - laying in bed, NAD, OXRODj6ZXTEA - EOMI, mucus membranes moist, PEERLCV - [...] September 12, 2017 : 4:57 PM PAGER: [phone] Normal [facility] CT ABDOMEN AND PELVIS W/O CO NTRASTon 09-12-2017 CT ABDOMEN AND PELVIS W/O CONTRAST Performed at [facility] APPROVED BY: Yann Lazar MD EXAM TITLE:CT [...] physician at the time of interpretation. Normal [facility] Comprehensive Panelon 2017 Alkaline phosphatase (ALP) 51 U/L Normal 46-116 [facility] Comment on above: Performed By: #### P T ####[facility] [place], [place] [address] Protein 6.2 g/dL Low 6.4-8.2 [facility] Comment on above: Performed By: #### P T ####[address] [address] Bilirubin Ql (U) 0.4 mg/dL Normal 0.2-1.0 [facility] Comment on above: Performed By: #### P T ####[address] [address] Alanine aminotransferase (ALT) 21 U/L Normal 12-78 [facility] Comment on above: Performed By: #### P T ####[address] [address] Aspartate aminotransferase (AST) 16 U/L Normal 9-37 [facility] Comment on above: Performed By: #### P T ####[address] [address] Creatinine 0.84 mg/dL Normal 0.67-1.17 [facility] Comment on above: Performed By: #### P T ####[address] [address] Glucose mass conc 92 mg/dL Normal 70-99 [facility] Comment on above: Performed By: #### P T ####[address] [address] Albumin 3.2 g/dL Low 3.4-5.0 [facility] Comment on above: Performed By: #### P T ####[address] [address] Urea nitrogen 34 mg/dL High 7-18 [facility] Comment on above: Performed By: #### P T ####[facility] [place] [address] Anion gap 11 mmol/L Normal 8-16 [facility] Comment on above: Performed By: #### P T ####[facility] [place] [address] Calcium 9.3 mg/dL Normal 8.5-10.1 [facility] Comment on above: Performed By: #### P T ####[facility] [place] [address] CO2 30 mmol/L Normal 21-32 [facility] Comment on above: Performed By: #### P T ####[facility] [place] [address] Chloride 93 mmol/L Low 98-107 [facility] Comment on above: Performed By: #### P T ####[place] [address] Potassium molar conc 3.3 mmol/L Low 3.5-5.1 [facility] Comment on above: Performed By: #### P T ####[place] [address] Sodium 131 mmol/L Low 136-145 [facility] Comment on above: Performed By: #### P T ####[place] [address] ECU Troponin Ion 09-12-2017 Troponin I.cardiac mass conc ng/mL Normal 0.015-0.04 5 [facility] Comment on above: Performed By: #### P T ####[place] [address] Troponin I.cardiac mass conc ng/mL Normal 0.015-0.04 5 [facility] Comment on above: Performed By: #### P T ####[place] [address] Troponin I.cardiac mass conc ng/mL Normal 0.015-0.04 5 [facility] Comment on above: Performed By: #### P T ####[place] [id number] Troponin I.cardiac mass conc ng/mL Normal 0.015-0.04 5 [facility] Comment on above: Performed By: #### P T ####[place] [address] ED NOTEon 09-12-2017 ED NOTE HNO ID: [id number] Author: Claudio BarnettRn) GREGORY Doll Service: Emergency Medicine Author Type: Registered Nurse Type: ED Notes Filed: 09/12/2017 8:38 PM Note Text: 2L of Brown nasogastric contents at this time. [facility] ED NOTE HNO ID: [id number] Author: Madeline BarnettRn) GREGORY Aleman Service: Emergency Medicine Author Type: Registered Nurse Type: ED Notes Filed: 09/12/2017 5:12 PM Note Text: Stopped cardizem gtt per request of Dr Poole. [facility] ED NOTE HNO ID: [id number] Author: Madeline BarnettRn) GREGORY Aleman Service: Emergency Medicine Author Type: Registered Nurse Type: ED Notes Filed: 09/12/2017 3:46 PM Note Text: Patient returned to the Emergency Department. [facility] ED NOTE HNO ID: [id number] Author: Madeline Spear) GREGORY Aleman Service: Emergency Medicine Author Type: Registered Nurse Type: ED Notes Filed: 09/12/2017 3:46 PM Note Text: Patient transported to [place] with Nurse. [facility] ED NOTE HNO ID: [id number] Author: Madeline Spear) GREGORY Aleman Service: Emergency Medicine Author Type: Registered Nurse Type: ED Notes Filed: 09/12/2017 1:32 PM Note Text: Pt placed on piggyback clerk and continuous pulse ox; alarms set and on. [facility] ED NOTE HNO ID: [id number] thor: Pierce (Medic) Wenceslao GreenSer: (none)Author Type: Electroslag Welding Machine Operator and TechnicianType: ED NotesFiled: 09/12/2017 1:30 PMNote Text:Bed: ED-10Expected date: 09/12/17Expected time: 12:51 PMMeans of arrival: [facility] 04Comments:A Fib RvR Med 4 [facility] ED NOTE HNO ID: [id number] thor: Swathi (Rn) KELLY Tompkinservice: Emergency MedicineAuthor Type: Registered NurseType: ED NotesFiled: 09/12/2017 1:19 PMNote Text:Pt was in endo to get endoscopy done because of chronic heartburn, when hearrived to endo he was in afib RVR rates in the 140-150. Pt also c/o SOB. Normal [facility] ED PROV NOTEon 09-12-2017 Protein mass conc HNO ID: [id number] thor: CANDICE Torreservice: Emergency MedicineAuthor Type: PhysicianType: ED Provider NotesFiled: 09/16/2017 12:43 AMNote Text:ED Provider NotePatient Name: Cristina JeffreyMRN: [id number] DATE: 09/12/17HistoryPatient presents with:ScmyzuzthjnwCBG31 yo M with pmhx of afib not [...] of09/12/17XR CHEST 1V FRONTALResult Value Ref Range Marble Machine Tender EXAMINATION: CHEST RADIOGRAPH (PORTABLE SINGLE VIEW AP)Exam Date/Time: 09/12/2017 2:26 PMIndication: Shortness of breath and palpitationsComparison: Chest x-ray 06/28/2017RESULT:Lines, tubes, and devices: None.Lungs and pleura: No focal consolidation, mass or pleural effusion isseen.Cardiomediastinal silhouette: Normal in appearance.Bony thorax is appropriate for the patient's age.No pneumothorax is seen.IMPRESSION:No acute or active intrathoracic abnormality is seen.CT ABD/PEL WO IVCONResult Value Ref Range Marble Machine Tender EXAM TITLE:CT ABDOMEN AND PELVIS W/O CONTRASTDATE:09/12/2017 [...] 1.8 1.6 - 2.6 mg/dLECU TROPONIN I (MO ED)Result Value Ref Range ECU Troponin I <0.015 0.015 - 0.045 ng/mlECU TROPONIN I (MO ED)Result Value Ref Range ECU Troponin I <0.015 0.015 - 0.045 ng/mlPROBNP N-TERMINAL (AK,AV,EU,FV,HL,GERRY,MM,SP)Resu lt Value Ref Range NT Pro BNP 1,728 pg/mlPROTHROMBIN TIME / PT (AK,AV,EU,FV,HL,GERRY,MM,SP)Resu lt Value Ref Range Prothrombin Time 11.7 9.3 - 11.9 sec INR 1.13MDRD GFRResult Value Ref Range eGFR >60 >60mL/min/1.28c6ZWGRQF BLOOD (AK,AV,EU,FV,HL,GERRY,MM,SP)Resu lt Value Ref Range Lipase 639 (H) 73 - 393 U/LECU TROPONIN I (MO ED)Result Value Ref Range ECU Troponin I [...] show A. fib without acute ischemic changes. Eyytiibrc5jseakfed. Chest x-ray without acute intrathoracic abnormalities.CT abdomen [...] MD [BK]ED Course User Index[BK] Bashir Bazan [facility] [place] Impressions as of September 15trial fibrillation with RVR (HCC)Gastric outlet obstructionPancreatic massPlanThe patient was ADMITTED TO: ICU MICU.Condition at time of disposition: stableSIGNATURE: Holly Ramos (Res) Zulema, AFDjoaokjp15/25/18 2224Critical CareI spent a total of 35 [...] separately billed procedures.Fantasma Torres MD09/16/17 0043 Normal [facility] EKG (AK,AV,EU,FV,HL,GERRY,MM,SP )on 09-12-2017 Protein mass conc NAME : CRISTINA JEFFREY PID : [id number] : 1945 Gender : MaleRace : CaucasianORD : [id number] Procedure Date : Sep 12 2017 13:16Edit [...] : 308 msQTC Calculation(Bezet) : 485 msR [place] : 76 degreesT [place] : 250 degrees Test Reason : Arrhythmia Location : 4 : AKED 4211 Overread By : MD Amaya ThomasEditted By : MD Amaya ThomasReferred By : Libertad MIRELESquired by : Celena Britt [facility] HISTORY PHYSICALon HISTORY PHYSICAL HNO ID: [id number] thor: Annel (Res) BouffordService: Critical CareAuthor Type: ResidentType: HANDPFiled: 09/12/2017 9:30 PMNote Text: At testation signed by Reina Mireles at 09/12/2017 9:44 [facility] STAFF PHYSICIAN NOTE OF PERSONAL INVOLVEMENT [...] AND PHYSICAL EXAMINATIONSERVICE DATE: 09/12/2017SERVICE TIME: 7:35 [facility] PH[facility]ICIAN: Clifton Del Valle, HGQijvfjkwdtJSE69 yo male with a PMH of Afib [...] 12, 2017 : 7:35 PM PAGER/CONTACT #: [phone] [facility] HOSPon 09-12-2017 HOSP Patient:Tessie Jeffrey TMRN: Height:5' 9.016"(1.753 m)Weight:173 lb 15.1 oz (78.9 kg)Outpatient Medications as of 09/21/17:metoprolol tartrate, short acting, (LOPRESSOR) 50 mg tabletpotassium chloride 20 mEq TbERergocalciferol, vitamin D2, (VITAMIN D) 50,000 unit capsulediltiazem CD (CARDIZEM CD, CARTIA XT) 240 mg [address] (PROTONIX) 40 mg tabletBismuth Subsalicylate (PEPTO-BISMOL) 262 mg tabVit A,C,O-Uikl-Worhcy (PRESERVISION AREDS) 14,320-226-200 eyxg-ng-adlt capalbuterol (PROVENTIL) 2.5 mg /3 mL (0.083 [...] 1 Drop ophthalmic drops (NATURAL BALANCETEARS)phenol 1 [place] (CHLORASEPTIC)benzocaine-ment hol 1 Lozenge (CEPACOL)ondansetron (PF) 4 mg injection (ZOFRAN)dilTIAZem 100 mg in D5W 100 mL ADD-[place] (CARDIZEM)0.9% NaCl 10 mL0.9% NaCl 20 mLiv [...] date: 09/12/17Expected time: 12:51 PMMeans of arrival: [facility] 04Comments:A Fib RvR Med Jamila Aleman, RN, RN 09/12/2017 1:32 PM Signed Pt placed on piggyback clerk and continuous pulse ox; alarms set and on.Radha Orta MD, MD 09/16/2017 12:43 AM SignedED Provider NotePatient Name: Cristina JeffreyMRN: [id number] DATE: 09/12/17HistoryPatient presents with:SuktzjdpifjbGQF18 yo M with pmhx of afib not [...] 09/12/17XR CHEST 1V FRONTALResult Value Ref Range Marble Machine Tender EXAMINATION: CHEST RADIOGRAPH (PORTABLE SINGLE VIEW AP)Exam Date/Time: 09/12/2017 2:26 PMIndication: Shortness of breath and palpitationsComparison: Chest x-ray 06/28/2017RESULT:Lines, tubes, and devices: None.Lungs and pleura: No focal consolidation, mass or pleural effusion is seen.Cardiomediastinal silhouette: Normal in appearance.Bony thorax is appropriate for the patient's age.No pneumothorax is seen.IMPRESSION:No acute or active intrathoracic abnormality is seen.CT ABD/PEL WO IVCONResult Value Ref Range Marble Machine Tender EXAM TITLE:CT ABDOMEN AND PELVIS W/O CONTRASTDATE:09/12/2017 [...] 1.8 1.6 - 2.6 mg/dLECU TROPONIN I (MO ED)Result Value Ref Range ECU Troponin I <0.015 0.015 - 0.045 ng/mlECU TROPONIN I (MO ED)Result Value Ref Range ECU Troponin I <0.015 0.015 - 0.045 ng/mlPROBNP N-TERMINAL (AK,AV,EU,FV,HL,GERRY,MM,SP)Resu lt Value Ref Range NT Pro BNP 1,728 pg/mlPROTHROMBIN TIME / PT (AK,AV,EU,FV,HL,GERRY,MM,SP)Resu lt Value Ref Range Prothrombin Time 11.7 9.3 - 11.9 sec INR 1.13MDRD GFRResult Value Ref Range eGFR >60 >60mL/min/1.16y4PTVNFR BLOOD (AK,AV,EU,FV,HL,GERRY,MM,SP)Resu lt Value Ref Range Lipase 639 (H) 73 - 393 U/LECU TROPONIN I (MO ED)Result Value Ref Range ECU Troponin I [...] MD [BK]ED Course User Index[BK] Bashir Bazan [facility] Imp[facility] as of September 15trial fibrillation with [...] medications:dilTIAZem 100 mg in D5W 100 mL ADD-[place] (CARDIZEM) 5-15 mg/hr INTRAVENOUSCONTINUOUSAllergie s As of Date: 09/12/2017(No Known Allergies)Fully Assessed 09/12/2017COMPLETE REVIEW OF SYSTEMS:10 pt ROS performed and negative except as in HPI.ObjectivePHYSICAL EXAM:Physical Exam Performed:Gen - laying in bed, NAD, KUFOVs1VZMLQ - EOMI, mucus membranes moist, PEERLCV - [...] signed by Reina Vinicius at 09/12/2017 9:44 [facility] STAFF PHYSICIAN NOTE OF PERSONAL INVOLVEMENT [...] AND PHYSICAL EXAMINATIONSERVICE DATE: 09/12/2017SERVICE TIME: 7:35 [facility] PHYSICIAN: Clifton Del Valle, DHHmdjbyyeljBRT57 yo male with a PMH of Afib [...] elevated to 631. Surgery on board. Gastrin, EO18-6kqg CEA level pending. CT chest ordered for [...] 09/13/17 0659 09/13/17 0700 - 09/14/17 0659Shift 4093-3138 5329-6339 3346-8088 24 Hour Total 0411-1171 5855-3858 2300-486009 Hour TotalINTAKE PO 0 0 PO 0 [...] 212 258INR -- 1.13Exam:GENERAL: No distress, AlertNEURO: [id number]: normocephalic, atraumaticLUNGS: Unlabored breathingCARDIAC: Regular rate and [...] Breaux, DOGeneral Surgery PGY-4May 2017 6:09 AMPager: [phone] also consult GI for an EGD to [...] II III old in lateral leads. BP sam718/66, getting IVF. Plan for cardizem bolus and possibly drip for rate control.CXR. Labs including BNP trop. Likely wheezing due to COPD. Abd distentionwithout pain. When stabilized, CT of abd to r/o bowel obstruction, perforation.Radha Orta MD2:16 PMMa2017Radha Orta MD09/13/17 0717Sacassia Avalos MD 09/13/2017 11:56 AM Attested -Attestation signed by Noe Quick at 09/13/2017 12:43 PM (Updated)[facility] STAFF PHYSICIAN NOTE OF PERSONAL INVOLVEMENT IN [...] of care, medical plan for the day, search consultant recommendations, medicaldisposition and current medical condition/prognosis [...] critical care services: 40 minutes.SIGNATURE: Noe Quick, [facility] RESPIRATORY INSTITUTEPAGER:[id number] of SERVICE: September 13, 2017TIME of SERVICE: 12:21 PM Medic al Intensive Care Progress NoteMay 2017Patient Name: Cristina Jeffrey [id number] Date: 09/12/2017 Length of Stay: 1Primary [...] tablet by mouth twicedaily for 14 days.Vit A,C,N-Ydgl-Nncrby (PRESERVISION AREDS) 14,320-226-200 nrhq-rr-qttl cap Take1 capsule by mouth twice daily.albuterol [...] mL/hr at 09/12/17 2320 2 g at 059785xmmuea phosphate 45 mmol in NaCl 0.9% 250 [...] PM (removed byNoe Quick at 09/13/2017 12:43 PM)[facility] STAFF PHYSICIAN NOTE OF PERSONAL INVOLVEMENT IN [...] of care, medical plan for the day, search consultant recommendations, medicaldisposition and current medical condition/prognosis [...] critical care services: 40 minutes.SIGNATURE: Noe Quick [facility] RESPIR[facility]ORY INSTITUTEPAGER:[id number] of SERVICE: September 13, [...] Diagnosis Date Noted- Atrial fibrillation with RVR ([facility]) 09/12/2017PAST MEDICAL HISTORYDiagnosis Date- Afib ([facility])- CHF (congestive heart failure) ([facility])- COPD (chronic obstructive pulmonary disease) ([facility])- HypertensionPresent Diet Order: NPOEnteral Access: NG, PICC insertion today?Nutritional Intake Prior to Admission: 0-25% estimated energy needs over thepast 2 week(s)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, and eating verylittle.GI symptoms: nausea and chewing [...] lb)07/02/17 : 86.7 kg (191 lb 1.6 oz)[place] Body Weight: 71kgResting Metabolic Rate: 1554Estimated kilocalorie needs: 7166-6565 kilocalories determined by 25-30 kcal/kgEstimated protein needs: 78-107 grams determined by 1.1-1.5 g/kg Hawley weightEstimated fluid needs: 1800 milliliters based on [...] AMOdor No 09/13/2017 7:36 AMWound Surface Color [place] 09/13/2017 7:36 AMSurrounding Skin Intact 09/12/2017 10:53 [...] tablet by mouth twicedaily for 14 days.Vit A,C,O-Qvfu-Iqaphm (PRESERVISION AREDS) 14,320-226-200 jbog-fd-juyn cap Take1 capsule by mouth twice daily.albuterol [...] CONTINUOUSdilTIAZem 100 mg in D5W 100 mL ADD-[place] (CARDIZEM) 5-15 mg/hr INTRAVENOUSCONTINUOUSlidocain e 10 mg/mL [...] followThank you for the consultSIGNATURE: Toshia Epperson APRN.VEGETABLE FARMER PATIENT NAME: Cristina JeffreyDATE: September 13, 2017 : 3:02 PM PAGER/CONTACT #: [phone] Anderson, RN, RN 09/13/2017 3:15 PM SignedCARE MANAGEMENT PROGRESS NOTESERVICE DATE: 09/13/2017SERVICE TIME: 1512 LOS: 1 dayPatient unavailable (undergoing a bedside procedure). Will attempt to assesstomorrow.SIGNATURE: Zoë Alexander RN PATIENT NAME: Cristina JeffreyDATE: September 13, 2017 : 3:12 PM CONTACT #: [id number] Traylor RN, RN 09/13/2017 3:47 PM SignedPATIENT EDUCATION TOPIC: PROCEDURE / SURGERY: Procedure/Surgery: PICCInsertionPATIENT NAME: Cristina JeffreyMRN: [id number] LOCATION: [place] [address] [address]*READ INESS TO LEARNCOGNITIVE ABILITY: Alert and orientedMOTIVATION TO LEARN: InterestedFAMILY SUPPORT: Unable to assess - Family not presentINSTRUCTION PROVIDED TO: PatientPATIENT LEARNS BEST BY: Written Instruction - Hand-outsVerbal InstructionFACTORS AFFECTING LEARNING: NonePHYSICAL LIMITATIONS AFFECTING LEARNING: NoneLEARNING RESPONSEDIAGNOSIS: ADULT: TPNPATIENT/FAMILY RESPONSE: Verbalizes understanding of: VSFL-FBNNNILZMWICSZEXNYMCJ-Yr rrect actions to take to reduce post procedure complicationsPRE-PROCEDURE INSTRUCTIONS-Correct action to take to follow pre-procedureinstructionsMETH OD OF INSTRUCTION: Verbal instructionFOLLOW-UP PLAN: Complete - No need for follow-upINSTRUCTIONAL AIDS USED: Picc Line BookSUPPLEMENTAL MATERIAL PROVIDED TO PATIENT: Catheter-Associated bloodstreaminfection sheetREFERRAL (RECOMMENDATION): NoneElectronically Signed By: Bimal Leung RN, RN 09/13/2017 3:52 PM IncompletePICC NURSE [...] to use.Jayne Traylor RNCATHETER PLACEMENTBrand: Arrow/Chloragard Lot: [id number] of Lumens: 2Type of PICC: ChloragardLumen Size: [...] NoneCOMPLICATIONS: NonePatient Education Materials: Placed in chart [facility] General Central Line Insertion Checklist utilizedduring this procedureQUESTIONS or PROBLEMS: Call [phone]: Jayne Traylor RN PATIENT NAME: Cristina JeffreyDATE: September 13, 2017 : 3:47 PM PAGER/CONTACT PHONE:Neema Maher MD 09/13/2017 4:01 PM Klncnx46-acle-ike male with history of paroxysmal atrial fibrillation, [...] 09/14/17 0659 09/14/17 0700 - 09/15/17 0659Shift 9497-7892 5344-1006 5649-4467 24 Hour Total 7189-4596 2488-4459 2300-968219 Hour TotalINTAKE PO 0 0 0 0 PO 0 0 0 0 IV 569 830.5 1287 2686.5 IVPB 250 250 NS 0.9% 472 703 637 8483 Calcium IVPB 250 250 Diltiazem Volume 97 105.5 32 234.5 Irrigants 60 60 Irrigant/Flush Amount In ([REMOVED] GI Feed/Drain 09/12/17 0700 NasogastricRight 09/13/17 1321) 60 60 Shift Total 629 830.5 1287 2746.5OUTPUT Urine 1200 261 769 5466 Void (ml) 370 370 Tube Output ( Indwelling Urinary Catheter 09/13/17 1145 Miranda 16 Fr) 835602 840 2425 Tubes 770 100 100 970 Output ([REMOVED] GI Feed/Drain 09/12/17 0700 Nasogastric Right 321) 20 0 20 Output (GI Feed/Drain 09/13/17 1322 Nasogastric Right Naris 18 Fr) 750 212597 950 # of BMs Number of BMs 0 x 0 x 0 x Shift Total 1970 855 940 3765Weight (kg) 80.9 80.9 84.3 84.3 84.3 84.3 84.3 84.3Current Facility-Administered Medications:ondansetron (PF) 4 mg injection (ZOFRAN) 4 mg INTRAVENOUS q 6 H PRNNaCl 0.9% iv infusion 100 mL/hr INTRAVENOUS CONTINUOUSdilTIAZem 100 mg in D5W 100 mL ADD-[place] (CARDIZEM) 5-15 mg/hr INTRAVENOUSCONTINUOUS0.9% NaCl 10 mL [...] small to characterize byCT?criteria.Exam:GENERAL: No distress, AlertNEURO: [id number]: normocephalic, atraumaticLUNGS: Unlabored breathingCARDIAC: Regular rate and [...] DOGeneral Surgery PGY-4September 14, 2017 6:21 AMPager: [phone] N Patel, MD 09/14/2017 11:30 AM Attested -Attestation signed by Noe Quick at 09/14/2017 12:27 [facility] NOTE OF PERSONAL INVOLVEMENT IN CAREI have reviewed the progress note obtained and documented by the resident and Ipersonally participated in the rivera components. I have discussed the case andmanagement of the patient's care. The following comments revise or confirmrelevant irvera components of the note.Interval history:Patient is resting [...] of care, medical plan for the day, search consultant recommendations, medicaldisposition and current medical condition/prognosis [...] critical care services: 20 minutes.SIGNATURE: Noe Quick [facility] INSTITUTEPAGER:[id number] of SERVICE: September 14, 2017TIME of SERVICE: 12:22 PM Medic al Intensive Care Progress NoteMay 2017Patient Name: Cristina Jeffrey [id number] Date: 09/12/2017 Length of Stay: 2Primary Service: [...] tablet by mouth twicedaily for 14 days.Vit A,C,B-Qryq-Phuaoj (PRESERVISION AREDS) 14,320-226-200 dgno-yt-yhnw cap Take1 capsule by mouth twice daily.albuterol [...] 0351dilTIAZem 100 mg in D5W 100 mL ADD-[place] (CARDIZEM) 5-15 mg/hr INTRAVENOUSCONTINUOUS Safal N (Res) Avalos Last Rate: 5 mL/hr at 09/14/17 0730 5 mg/hr at09/14/17 86079.9% NaCl 10 mL 10 mL INTRAVENOUS q [...] mL/hr at 09/12/17 2320 2 g at 840190xerzrk phosphate 45 mmol in NaCl 0.9% 250 [...] -- 0.4LIPASE 639* --GFR: > 60Phosphorus: 1.3Magnesium: 2.0QB65-1: 8.1Intake/Output Summary (Last 24 hours) at 09/14/17 [...] 09/14/2017SERVICE TIME: 1056PRIMARY CARE PHYSICIAN:ENRIQUE Perez [place]: [phone] STATUS: InpatientNeeds Prior to Discharge: To Be DeterminedMEDICAL:Patient/Rep resentative Stated Goals:To return home to life as it wasHealth Insurance: MEDICARE A AND BMedicaidHealth Issues Impacting Discharge Plan: A-fibLast Admission Date: Previous admit date: 06/23/2017Is this Within the Past 30 days? NoAdvance Directive:Current Advance Directive: NoneCare Production Officer Assisted with AD Completion: NoHealth Literacy:1. How [...] Services or Home Care? [facility] Nadia Olivia [phone]. Patient states has meals on wheels,and plan to be set up with emergency alert.Equipment Prior to Admission: Aerosols/Intermittent positivebreathing/Respiratory TreatmentsHand Held ShowerTub bench/chairHas the Patient Been in a Fdc Facility in the Past 30 days? [facility]SOCIAL:Living Arrangement: HomeLives With: AloneFinancial Resources: N/APrimary Contact: Extended Emergency Contact InformationPrimary Emergency Contact: [place] [address] [facility] Uydkdshx: SisterSupportive: YesOther Important Patient Contacts: NoneCaregiver Assessment:Caregiver [...] - 0I feel financially burdened by my mgw-dl-hcpvib expenses for my prescriptionmedication: Disagree completely - [...] enough to plan to return home with [facility], but if he shouldneed rehab at discharge his choice is [facility]. for [facility] [phone] to call .Will continue to follow clinical progress for discharge planning.SIGNATURE: Zoë Alexander RN PATIENT NAME: Cristina JeffreyDATE: September 14, 2017 : 11:57 AM CONTACT #: [id number] VersionSafsaritha Avalos MD 09/14/2017 11:42 AM SignedPatient [...] patient under the service of Dr Childers.Zayra Bermudez Office Coord 09/14/2017 12:19 PM SignedHOME FRESH FOODS CAKE DECORATOR NOTESERVICE DATE: 09/14/2017SERVICE TIME: 12:19 PMReferral:Home Care referral received by: Jered continue to follow for physician ordersSIGNATURE: Zayra Bermudez Office Coord PATIENT NAME: Cristina MooreTE: September 14, 2017 : 12:18 PMSusan YVONNE Epperson.VEGETABLE FARMER 09/14/2017 2:23 PM SignedGI CONSULT PROGRESS NOTESERVICE DATE: 09/14/2017SERVICE TIME: 2:13 PMCONSULTING SERVICE: GastroenterologySubjectiveINT ERVAL HISTORY: Still has NG with scant bloody drainage. Wants to eat - sayshe is hungryMEDICATIONS:Current hospital medications:phenol 1 [place] (CHLORASEPTIC) 1 [place] MUCOUS MEMBRANE (TOPICAL MOUTH AND THROAT) q2 [...] CONTINUOUSdilTIAZem 100 mg in D5W 100 mL ADD-[place] (CARDIZEM) 5-15 mg/hr INTRAVENOUSCONTINUOUS0.9% NaCl 10 mL [...] Dominguez?GI will continue to followSIGNATURE: Toshia Epperson APRN.VEGETABLE FARMER PATIENT NAME: Cristina JeffreyDATE: September 14, 2017 : 2:13 PM PAGER/CONTACT #: [phone] Maher MD 09/14/2017 5:09 PM SignedCONSULT NOTESERVICE DATE: 09/14/2017SERVICE TIME: 12:00 PMPHYSICIAN CONSULT (AK,AV,EU,FV,HL,GERRY,MM,SP)Cons ult performed by: NEEMA MAHER ordered by: Liat MIRELES for consult: Atrial fibrillation.PRIMARY CARE PHYSICIAN: Clifton Del Valle TBGbvusdikotWLR04-jtno-nlp male with history of essential hypertension, COPD, [...] tablet Rfl: 0 09/11/2017 at Unknown timeVit A,C,C-Nvqs-Tuizmt (PRESERVISION AREDS) 14,320-226-200 mulx-qu-mjgg cap Take1 capsule by mouth twice daily. [...] Rfl:09/11/2017 at Unknown timeCurrent hospital medications:phenol 1 [place] (CHLORASEPTIC) 1 [place] MUCOUS MEMBRANE (TOPICAL MOUTH AND THROAT) q2 [...] CONTINUOUSdilTIAZem 100 mg in D5W 100 mL ADD-[place] (CARDIZEM) 5-15 mg/hr INTRAVENOUSCONTINUOUS0.9% NaCl 10 mL [...] BP Temp Temp src Pulse Resp SpO2 Uiqyiz96/24/18 1600 114/62 36.1 ?C (97 ?F) Axillary [...] -09/14/17 02 (more content not included)... Normal [facility] Hemogramon 09-12-2017 Erythrocyte distribution width Auto Ratio (RBC) 15.4 % High 11.6-14.4 [facility] Comment on above: Performed By: #### P T ####[address] [address] Erythrocytes (RBC) 3.46 mil/cmm Low 4.63-6.08 [facility] Comment on above: Performed By: #### P T ####[address] [address] Hematocrit (HCT) 30.0 % Low 40.1-51.0 [facility] Comment on above: Performed By: #### P T ####[address] [address] Hemoglobin mass conc (Bld) 9.9 g/dL Low 13.7-17.5 [facility] Comment on above: Performed By: #### P T ####[facility] [place], [place] [address] MCH 28.6 pg Normal 25.7-32.2 [facility] Comment on above: Performed By: #### P T ####[facility] [place], [place] [address] MCHC mass conc (RBC) 33.0 % Normal 32.3-36.5 [facility] Comment on above: Performed By: #### P T ####[facility] [place], [place] [address] MCV 86.7 fL Normal 83.2-95.6 [facility] Comment on above: Performed By: #### P T ####[address] [address] Platelet mean volume (PMV) 9.9 fL Normal 8.7-12.0 [facility] Comment on above: Performed By: #### P T ####[address] [address] Platelets 258 thou/cmm Normal 141-365 [facility] Comment on above: Performed By: #### P T ####[address] [address] RDW SD 48.8 fl High 36.1-45.8 [facility] Comment on above: Performed By: #### P T ####[address] [address] WBC (Leukocytes) 9.36 thou/cmm High 4.23-9.07 [facility] Comment on above: Performed By: #### P T ####[address] [address] Lipase Bloodon 09-12-2017 Lipase Blood 639 U/L High 73-393 [facility] Comment on above: Performed By: #### P T ####[address] [address] MDRD GFRon 09-12-2017 eGFR (non-black) mL/min/{1.73_m2} Normal >60mL/m in/ 1.73m2 [facility] Comment on above: Result Comment: If t he patient is , multiply the result by 1.210. Performed By: #### P T ####[facility] [place] [id number] MRSA Screenon 09-12-2017 MRSA Screen Test performed at [facility] No MRSA detected. Normal [facility] Comment on above: Performed By: #### P T ####[facility] [place] [address] Magnesium Bloodon 09-12-2017 Magnesium 1.8 mg/dL Normal 1.6-2.6 [facility] Comment on above: Performed By: #### P T ####[place] [address] N-terminal Pro-BNPon 018 BNP 1728 pg/mL Normal [facility] Comment on above: Result Comment: Acut e CHF Rule-in <50 yrs old >= 450 pg/ml >50 yrs old >= 900 pg/ml Abnormal Pro-BNP All patients >=300 pg/ml Performed By: #### P T ####[place] [address] NURSING PROGon 09-12-2017 Protein mass conc HNO ID: [id number] Author: Melissa BarnettRn) Amrik, GREGORY Service: Nursing Author Type: Registered Nurse Type: Nursing Progress Note Filed: 09/12/2017 12:53 PM Note Text: Squad took patient to ED, caroyn sister following to ED. Dr Bueno and Dr Dominguez aware. Normal [facility] Protein mass conc HNO ID: [id number] Author: Melissa Spear) Amrik, RN Service: Nursing Author Type: Registered Nurse Type: Nursing Progress Note Filed: 09/12/2017 12:41 PM Note Text: 1241 squad here , hooking patient up to EKG. Normal [facility] Protein mass conc HNO ID: [id number] thor: KELLY Weston Rnervice: NursingAuthor Type: Registered NurseType: Nursing Progress NoteFiled: 09/12/2017 12:39 PMNote Text:1235 Melissa sewell called 911 and gave report, squad coming shortly to takept to ER.Dr Bueno calling ER to give them update on patient. [facility] Protein mass conc HNO ID: [id number] thor: Sagar Cornell MirService: NursingAuthor Type: PhysicianType: [...] above. Will send toER for appropriate care. [facility] PT EDon 09-12-2017 PT ED HNO ID: [id number] thor: Sagar Cornell MirService: NursingAuthor Type: PhysicianType: Patient EducationFiled: 09/12/2017 12:26 PMNote Text:PRE OP LEARNING ASSESSMENTPROCEDURE/SURGERY: GI PROCEDURES: EGDREADINESS TO LEARNCOGNITIVE ABILITY: Alert and orientedMOTIVATION TO LEARN: EagerFAMILY SUPPORT: Moderate - Family present but overwhelmedPATIENT LEARNS BEST BY: Individual InstructionFACTORS AFFECTING LEARNING: NonePHYSICAL LIMITATIONS AFFECTING LEARNING: NoneElectronically Signed By: Melissa Rowley RN In Department: [place] ENDO Normal [facility] Protimeon 09-12-2017 INR Coag RelTime (PPP) 1.13 {INR} Normal [facility] Comment on above: Result Comment: Timo dard Therapy 2.0-3.0High Dose 2.5-3.5 Performed By: #### P T ####[place] [address] Prothrombin time (PT) Coag time (PPP) 11.7 s Normal 9.3-11.9 [facility] Comment on above: Performed By: #### P T ####[place] [address] HOSPon 08-14-2017 HOSP Patient:Tessie Jeffrey TMRN: Height:5' [...] mg tabletBismuth Subsalicylate (PEPTO-BISMOL) 262 mg tabVit A,C,I-Jrcs-Otuqek (PRESERVISION AREDS) 14,320-226-200 mizh-jj-ujau capalbuterol (PROVENTIL) 2.5 mg /3 mL (0.083 [...] entered within the past 30 days Normal [facility] Basic Panelon 07-05-2017 Creatinine 0.76 mg/dL Normal 0.67-1.17 [facility] Comment on above: Performed By: #### P T ####[facility] [place] [address] Anion gap 10 mmol/L Normal 8-16 [facility] Comment on above: Performed By: #### P T ####[place] [address] CO2 27 mmol/L Normal 21-32 [facility] Comment on above: Performed By: #### P T ####[place] [address] Glucose mass conc 114 mg/dL High 70-99 [facility] Comment on above: Performed By: #### P T ####[place] [address] Urea nitrogen 13 mg/dL Normal 7-18 [facility] Comment on above: Performed By: #### P T ####[place] [address] Calcium 8.3 mg/dL Low 8.5-10.1 [facility] Comment on above: Performed By: #### P T ####[place] [address] Chloride 102 mmol/L Normal 98-107 [facility] Comment on above: Performed By: #### P T ####[place] [address] Potassium molar conc 4.0 mmol/L Normal 3.5-5.1 [facility] Comment on above: Performed By: #### P T ####[place] [address] Sodium 135 mmol/L Low 136-145 [facility] Comment on above: Performed By: #### P T ####[place] [address] CASE MANAGEMon 07-05-2017 CASE MANAGEM HNO ID: [id number] thor: Mitali (Specialist) JohnsonService: Care ManagementAuthor Type: (none)Type: Care Mgt Progress NoteFiled: 07/05/2017 12:14 PMNote Text:[facility] arrive at 2:00 pm to transport patient to [facility].FELIPE (Lakia) notified CHARLOTTE (Chris) regarding transport time. Orders uploadedin Allscripts. [facility] CASE MANAGEM HNO ID: [id number] thor: Lakia BarnettRn) KELLY Guillenervice: Care ManagementAuthor Type: Registered NurseType: Care Mgt Progress NoteFiled: 07/05/2017 11:11 AMNote Text:CARE MANAGEMENT PROGRESS NOTESERVICE DATE: 07/05/2017SERVICE TIME: 11:08 AM LOS: 12 daysDC orders completed. Transport arranged by at 2pm. Wvtzqw-xr-xmd Williams, RN aware, pt updatedSIGNATURE: Lakia Guillen RN PATIENT NAME: Cristina MooreTE: July 05, 2017 : 11:08 AM PAGER/CONTACT #: [phone] [facility] CASE MANAGEM HNO ID: [id number] thor: KELLY Carey Rnervice: Care ManagementAuthor Type: Registered NurseType: Care Mgt Progress NoteFiled: 07/05/2017 8:58 AMNote Text:CARE MANAGEMENT PROGRESS NOTESERVICE DATE: 07/05/2017SERVICE TIME: 8:57 AM [facility] No precert needed. Dr. Puri notified. AwaitDC ordersSIGNATURE: Lakia Guillen RN PATIENT NAME: Cristina MooreTE: July 05, 2017 : 8:57 AM PAGER/CONTACT #: [phone] [facility] Hgbon 07-05-2017 Hemoglobin mass conc (Bld) 9.2 g/dL Low 13.7-17.5 [facility] Comment on above: Performed By: #### P T ####[place] [address] MDRD GFRon 07-05-2017 eGFR (non-black) mL/min/{1.73_m2} Normal >60mL/m in/ 1.73m2 [facility] Comment on above: Result Comment: If t he patient is , multiply the result by 1.210. Performed By: #### P T ####[place] [address] NUTRITIONon 07-05-2017 NUTRITION HNO ID: [id number] thor: OUMOU Alonso Rdervice: Nutrition TherapyAuthor Type: [...] history of alcohol abuse who presented to [facility] withspnea who received a breathing treatment and [...] 27.42 kg/(m2). normal for ageCurrent Facility-Administered Medications:vitamins L-J-C-wohr-mdnpxrcz-ahivkz 5,000-60-30 gtcz-po-szra 1 tablet(PROSIGHT) 1 tablet ORAL BIDpotassium-sodium phosphates [...] 5 mg ORAL q 4 H PRNpill market editor (patient-specific) 1 Each Miscell. (Med.Supl.;Non-Drugs) PRNIntake/Output 07/01/17 [...] July 05, 2017 : 8:54 AM PAGER: [phone] Normal [facility] Phosphorus Bloodon 8 Phosphate 3.0 mg/dL Normal 2.5-4.9 [facility] Comment on above: Performed By: #### P T ####[facility] [place] [address] Basic Panelon 07-04-2017 Creatinine 0.66 mg/dL Low 0.67-1.17 [facility] Comment on above: Performed By: #### P T ####[place] [address] Glucose mass conc 108 mg/dL High 70-99 [facility] Comment on above: Performed By: #### P T ####[place] [address] Urea nitrogen 9 mg/dL Normal 7-18 [facility] Comment on above: Performed By: #### P T ####[place] [address] Anion gap 10 mmol/L Normal 8-16 [facility] Comment on above: Performed By: #### P T ####[place] [address] Calcium 8.3 mg/dL Low 8.5-10.1 [facility] Comment on above: Performed By: #### P T ####[place] [address] CO2 27 mmol/L Normal 21-32 [facility] Comment on above: Performed By: #### P T ####[place] [address] Chloride 102 mmol/L Normal 98-107 [facility] Comment on above: Performed By: #### P T ####[place] [address] Potassium molar conc 3.8 mmol/L Normal 3.5-5.1 [facility] Comment on above: Performed By: #### P T ####[place] [address] Sodium 135 mmol/L Low 136-145 [facility] Comment on above: Performed By: #### P T ####[place] [id number] CASE MANAGEMon 07-04-2017 CASE MANAGEM HNO ID: [id number] thor: Lakia (Rn) KELLY Guillenervice: Care ManagementAuthor Type: Registered NurseType: Care Mgt Progress NoteFiled: 07/04/2017 9:00 AMNote Text:CARE MANAGEMENT PROGRESS NOTESERVICE DATE: 07/04/2017SERVICE TIME: 8:58 AM [facility] to [address] [place] [address]. Await acceptance. No precert will be needed once acceptedSIGNATURE: Lakia Guillen RN PATIENT NAME: Cristina MooreTE: July 04, 2017 : 8:58 AM PAGER/CONTACT #: [phone] Normal [facility] Hgbon 07-04-2017 Hemoglobin mass conc (Bld) 9.5 g/dL Low 13.7-17.5 [facility] Comment on above: Performed By: #### P T ####[place] [address] MDRD GFRon 07-04-2017 eGFR (non-black) mL/min/{1.73_m2} Normal >60mL/m in/ 1.73m2 [facility] Comment on above: Result Comment: If t he patient is , multiply the result by 1.210. Performed By: #### P T ####[place] [address] PROGRESSon 07-04-2017 Protein mass conc HNO ID: [id number] thor: CANDICE Rosarioervice: Hospital MedicineAuthor Type: PhysicianType: [...] Jeffrey : 10:41 AM PAGER/CONTACT #: Normal [facility] Phosphorus Bloodon 8 Phosphate 2.6 mg/dL Normal 2.5-4.9 [facility] Comment on above: Performed By: #### P T ####[facility] [place], [place] [address] Basic Panelon 07-03-2017 Creatinine 0.68 mg/dL Normal 0.67-1.17 [facility] Comment on above: Performed By: #### P T ####[facility] [place], [place] [address] Glucose mass conc 83 mg/dL Normal 70-99 [facility] Comment on above: Performed By: #### P T ####[address] [address] Urea nitrogen 7 mg/dL Normal 7-18 [facility] Comment on above: Performed By: #### P T ####[address] [address] Anion gap 9 mmol/L Normal 8-16 [facility] Comment on above: Performed By: #### P T ####[address] [address] Calcium 7.7 mg/dL Low 8.5-10.1 [facility] Comment on above: Performed By: #### P T ####[address] [address] CO2 26 mmol/L Normal 21-32 [facility] Comment on above: Performed By: #### P T ####[place] [address] Chloride 104 mmol/L Normal 98-107 [facility] Comment on above: Performed By: #### P T ####[place] [address] Potassium molar conc 3.4 mmol/L Low 3.5-5.1 [facility] Comment on above: Performed By: #### P T ####[place] [address] Sodium 136 mmol/L Normal 136-145 [facility] Comment on above: Performed By: #### P T ####[address] [address] CASE MANAGEMon 07-03-2017 CASE MANAGEM HNO ID: [id number] Author: Mitali (Specialist) Balwinder Service: Care Management Author Type: (none) Type: Care Mgt Progress Note Filed: 07/03/2017 12:00 PM Note Text: SNF referral [facility]. Normal [facility] CASE MANAGEM HNO ID: [id number] thor: Lakia (Rn) Mindy, RNService: Care ManagementAuthor Type: Registered NurseType: Care Mgt Progress NoteFiled: 07/03/2017 11:08 AMNote Text:CARE MANAGEMENT PROGRESS NOTESERVICE DATE: 07/03/2017SERVICE TIME: 11:06 AM LOS: 10 daysReceived call from abkxmc-xz-lij Chris. They have reviewed choice list and1st choice is [facility]. Await acceptance. Will notneed precert once accepted. If unable to accept [facility], [facility], [facility]: Lakia Guillen RN PATIENT NAME: Cristina MooreTE: July 03, 2017 : 11:06 AM PAGER/CONTACT #: [phone] Normal [facility] Hgbon 07-03-2017 Hemoglobin mass conc (Bld) 9.3 g/dL Low 13.7-17.5 [facility] Comment on above: Performed By: #### P T ####[place] [address] MDRD GFRon 07-03-2017 eGFR (non-black) mL/min/{1.73_m2} Normal >60mL/m in/ 1.73m2 [facility] Comment on above: Result Comment: If t he patient is , multiply the result by 1.210. Performed By: #### P T ####[place] [id number] NURSING PROGon 07-03-2017 Protein mass conc HNO ID: [id number] thor: Dasha (Rn) Frederick, RNService: (none)Author Type: Registered NurseType: Nursing Progress NoteFiled: 07/03/2017 4:53 AMNote Text: Nursing Progress NotePatient Name: Cristina LeeN: [id number] Location: [place] [address] [address]*____ Patient requesting breathing treatment. O2 sats 97% on 1.5 L NC. Bloodpressure 144/63, HR 68, Temp 36.1. Incentive spirometry encouraged. [employer] notified.This note was completed by: Dasha Mack RN [facility] NUTRITIONon 07-03-2017 NUTRITION HNO ID: [id number] thor: Analy Gaming) FerberService: Nutrition TherapyAuthor Type: [...] Hospital Problems Diagnosis Date Noted- Hemorrhagic shock ([facility]) 06/24/2017- Acute respiratory failure with hypoxia and hypercapnia ([facility]) 06/24/2017- Acute blood loss anemia 06/24/2017- Hypophosphatemia 06/24/2017- Atrial fibrillation with rapid ventricular response ([facility]) 06/24/2017- GI bleeding 06/23/2017 Overview Note: Added automatically from request for surgery [id number] ([facility]) 06/21/2017- COPD (chronic obstructive pulmonary disease) ([facility]) 06/21/2017- Hypertension 06/21/2017- Hyperlipidemia 06/21/2017No past medical [...] 86.7 kgResting Metabolic Rate: 1627Estimated kilocalorie needs: 9452-4958 kilocalories determined by 30-35kcal/kg IBW - increased [...] lb 1.6 oz) SpO2 98% BMI 27.42 kg/o6Fnbuvu Labs 076991TLYB 83BUN 7CREAT 0.68NA 136K 3.4*CHLOR 104CO2 26PREALB 9.4*HB 9.3*P 2.7Potential Signs of Inflammation: low prealbuminALLERGIESNo Known AllergiesCurrent Facility-Administered Medications:vitamins U-E-U-qske-njdebhnj-rhurnp 5,000-60-30 ygxh-bf-qvmt 1 tablet(PROSIGHT) 1 tablet ORAL BIDpotassium-sodium phosphates [...] 5 mg ORAL q 4 H PRNpill market editor (patient-specific) 1 Each Miscell. (Med.Supl.;Non-Drugs) PRNMNT Billing Type: Re-assess/15 min 4 unitsSIGNATURE: Analy Spangler RD PATIENT NAME: Cristina JeffreyDATE: July 03, 2017 : 8:18 AM PAGER: [phone] Normal [facility] PROGRESSon 07-03-2017 Protein mass conc HNO ID: [id number] thor: Giselle (Telegraphic Typewriter Operator) CroomService: ElectrophysiologyAuthor Type: Nurse PractitionerType: Progress NotesFiled: 07/03/2017 3:43 PMNote Text:[facility] PROGRESS NOTE CARDIOLOGY SERVICESERVICE DATE: 07/03/2017SERVICE TIME: 3:18 PMSubjectiveINTERIM HISTORY: Cristina Jeffrey is laying in bed NAD. He denies CP, SOB,dizziness, syncope, palpitations. ObjectivePHYSICAL EXAM:Body mass index is 27.42 kg/(m2).O2 Therapy: Room AirNo Data RecordedPatient Vitals for the past 24 hrs: BP Temp Temp src Pulse Resp NiE83307/03/17 1120 131/67 36.5 ?C (97.7 ?F) - [...] No edema.PULSES: Peripheral pulses present.MEDICATIONS:Current hospital medications:vitamins I-G-V-taug-nbcqdted-cfxgun 5,000-60-30 nfqr-ta-obql 1 tablet(PROSIGHT) 1 tablet ORAL BIDpotassium-sodium phosphates [...] 5 mg ORAL q 4 H PRNpill market editor (patient-specific) 1 Each Miscell. (Med.Supl.;Non-Drugs) PRNDATA:Diagnostic tests [...] cardiology is signing off.SIGNATURE: Michelle Weeks, MSN, CAR PILOT PATIENT NAME: Cristina JeffreyDATE: July 03, 2017 : 3:18 PM PAGER/CONTACT #: [phone] Normal [facility] Protein mass conc HNO ID: [id number] thor: CANDICE Rosarioervice: [facility] MedicineAuthor Type: PhysicianType: Progress NotesFiled: 07/05/2017 10:29 [...] Jeffrey : 10:41 AM PAGER/CONTACT #: Normal [facility] Phosphorus Bloodon 8 Phosphate 2.7 mg/dL Normal 2.5-4.9 [facility] Comment on above: Performed By: #### P T ####[facility] [place], [place] [address] Prealbuminon 07-03-2017 Prealbumin 9.4 mg/dL Low 20.0-40.0 [facility] Comment on above: Performed By: #### P T ####[facility] [place], [place] [address] THERAPY NTon 07-03-2017 THERAPY NT HNO ID: [id number] thor: Ana Cristina (Pt) Nicciervice: Physical TherapyAuthor Type: Physical TherapistType: Therapy (PT/OT/Speech/Resp)Filed: 07/03/2017 4:32 PMNote Text:Physical Therapy TreatmentSERVICE DATE: 07/03/2017SERVICE TIME: 1145 to 1200ROOM: [id number] Discharge Disposition: Subacute/SNFJustification For Post Acute Needs: [...] of gait and mobility-otherInterventions Provided: Therapeutic Exercise (59023)Therapeutic Exercise (57922) Treatment Minutes: 151 unitSkilled Intervention(s): Instruction in [...] Wheeled Walker Gait Distance (feet): 15 feet o1JfkoxcGgnk StepCar TransferGeneral Gait Deviations: Fabiola decreased;Lateral swayincreased;Difficulty [...] 03, 2017 : 12:09 PM PAGER/CONTACT #: [phone] care delivered with direct supervision of PT Clinical Instructorin accordance with treatment plan.I reviewed and agree with the documentation corresponding to this therapyvisit.SIGNATURE: Ana Cristina Walker, PTDATE: July 03, 2017TIME: 4:31 PM Normal [facility] Basic Panelon 07-02-2017 Creatinine 0.60 mg/dL Low 0.67-1.17 [facility] Comment on above: Performed By: #### P T ####[place] [address] Anion gap 11 mmol/L Normal 8-16 [facility] Comment on above: Performed By: #### P T ####[place] [address] CO2 23 mmol/L Normal 21-32 [facility] Comment on above: Performed By: #### P T ####[place] [address] Glucose mass conc 84 mg/dL Normal 70-99 [facility] Comment on above: Performed By: #### P T ####[place] [address] Urea nitrogen 7 mg/dL Normal 7-18 [facility] Comment on above: Performed By: #### P T ####[place] [address] Calcium 7.8 mg/dL Low 8.5-10.1 [facility] Comment on above: Performed By: #### P T ####[place] [address] Chloride 105 mmol/L Normal 98-107 [facility] Comment on above: Performed By: #### P T ####[place] [address] Potassium molar conc 3.6 mmol/L Normal 3.5-5.1 [facility] Comment on above: Performed By: #### P T ####[place] [address] Sodium 135 mmol/L Low 136-145 [facility] Comment on above: Performed By: #### P T ####[facility] [place], [place] [address] Hgbon 07-02-2017 Hemoglobin mass conc (Bld) 9.4 g/dL Low 13.7-17.5 [facility] Comment on above: Performed By: #### P T ####[facility] [place], [place] [address] MDRD GFRon 07-02-2017 eGFR (non-black) mL/min/{1.73_m2} Normal >60mL/m in/ 1.73m2 [facility] Comment on above: Result Comment: If t he patient is , multiply the result by 1.210. Performed By: #### P T ####[address] [address] PROGRESSon 07-02-2017 Protein mass conc HNO ID: [id number] thor: Mirella Puri MDService: [facility] MedicineAuthor Type: PhysicianType: Progress NotesFiled: 07/02/2017 11:51 [...] Jeffrey : 10:41 AM PAGER/CONTACT #: Normal [facility] Phosphorus Bloodon 8 Phosphate 2.3 mg/dL Low 2.5-4.9 [facility] Comment on above: Performed By: #### P T ####[place] [address] Basic Panelon 07-01-2017 Creatinine 0.72 mg/dL Normal 0.67-1.17 [facility] Comment on above: Performed By: #### P T ####[place] [address] Anion gap 11 mmol/L Normal 8-16 [facility] Comment on above: Performed By: #### P T ####[place] [address] CO2 22 mmol/L Normal 21-32 [facility] Comment on above: Performed By: #### P T ####[address] [place] [address] Urea nitrogen 12 mg/dL Normal 7-18 [facility] Comment on above: Performed By: #### P T ####[facility] [place] [address] Calcium 7.7 mg/dL Low 8.5-10.1 [facility] Comment on above: Performed By: #### P T ####[facility] [place] [address] Glucose mass conc 76 mg/dL Normal 70-99 [facility] Comment on above: Performed By: #### P T ####[place] [address] Chloride 106 mmol/L Normal 98-107 [facility] Comment on above: Performed By: #### P T ####[place] [address] Potassium molar conc 3.9 mmol/L Normal 3.5-5.1 [facility] Comment on above: Performed By: #### P T ####[place] [address] Sodium 135 mmol/L Low 136-145 [facility] Comment on above: Performed By: #### P T ####[place] [address] Hgbon 07-01-2017 Hemoglobin mass conc (Bld) 9.0 g/dL Low 13.7-17.5 [facility] Comment on above: Performed By: #### P T ####[place] [address] MDRD GFRon 07-01-2017 eGFR (non-black) mL/min/{1.73_m2} Normal >60mL/m in/ 1.73m2 [facility] Comment on above: Result Comment: If t he patient is , multiply the result by 1.210. Performed By: #### P T ####[place] [address] PROGRESSon 07-01-2017 Protein mass conc HNO ID: [id number] thor: Moises A SchweikertService: ElectrophysiologyAuthor Type: PhysicianType: Progress NotesFiled: 07/01/2017 12:14 PMNote Text:[facility] Electrophysiology (EP) - [facility] ([facility])EP StaffReviewed telemetry. Arrhythmia seems under appropriate control today. Nonew recommendations. Call with questions/issues.Moises Evans Maikol, [facility] 2017 12:14 PMEP group pager [phone] Normal [facility] Protein mass conc HNO ID: [id number] thor: Mirella Puri, MDService: Hospital MedicineAuthor Type: [...] Jeffrey : 10:41 AM PAGER/CONTACT #: Normal [facility] Phosphorus Bloodon 8 Phosphate 2.3 mg/dL Low 2.5-4.9 [facility] Comment on above: Performed By: #### P T ####[place] [address] CASE MANAGEMon 06-30-2017 CASE MANAGEM HNO ID: [id number] thor: Lakia (Rn) Mindy RNService: Care ManagementAuthor Type: Registered NurseType: Care Mgt Progress NoteFiled: 06/30/2017 11:34 AMNote Text:CARE MANAGEMENT PROGRESS NOTESERVICE DATE: 06/30/2017SERVICE TIME: 11:31 AM LOS: 7 daysPT recs SNF. I spoke with pt about the recommendations. He will not statehe is agreeable, but states he will be unable to return home at ID andneeds help. I gave him a SNF choice list for Medicare. I asked permissionto call his sister, Crystal , permission not given. He states he willdiscuss with family himself and let me know.SIGNATURE: Lakia Guillen RN PATIENT NAME: Cristina JeffreyDATE: June 30, 2017 : 11:31 AM PAGER/CONTACT #: [phone] Normal [facility] Hgbon 06-30-2017 Hemoglobin mass conc (Bld) 9.4 g/dL Low 13.7-17.5 [facility] Comment on above: Performed By: #### P T ####[facility] [place], [place] [address] NURSING PROGon 06-30-2017 Protein mass conc HNO ID: [id number] thor: Kapil (Rn) KELLY Ramirezervice: NursingAuthor Type: Registered NurseType: Nursing Progress NoteFiled: 06/30/2017 1:52 AMNote Text:PT HR sustaining in 110-120's maxed out on cardizem gtt. Dr. Nick'binotified and okay with HR. will give 500 cc bolus. Pt voided 100cc of darkurine but was found to have 280ml after bladder scan. Pt expresses no urgeto . MD notified will monitor for further retention. Normal [facility] PROGRESSon 06-30-2017 Protein mass conc HNO ID: [id number] thor: Jackie Banegas CNPService: Pulmonary DiseaseAuthor Type: [...] pedal edema bilaterally.Dry, intact skin with fair hour Intake AND Output:Intake/Output Summary (Last 24 [...] 5 mg ORAL q 4 H PRNpill market editor (patient-specific) 1 Each Miscell. (Med.Supl.;Non-Drugs) PRNAssessment/PlanASSESSMENT: ACTIVE PROBLEM LISTShock (Hcc)Copd (Chronic Obstructive Pulmonary Disease) ([facility])HypertensionHyperlipidem iaGI BleedingAcute Respiratory Failure With Hypoxia and Hypercapnia ([facility])Acute Blood Loss AnemiaHemorrhagic Shock ([facility])HypophosphatemiaAtrial Fibrillation With Rapid Ventricular Response ([facility])Acute hypoxic respiratory failureRecently discontinued alcohol abusePLAN:Doing well on room air.Hemoglobin stable.Continue PPI.Continue bronchodilators.Patient has no need for steroids at this time as the patient has no activebronchospasm currently.Out of bed/increase activity as able.Nothing else to add at this time.Will sign off.SIGNATURE: Noe Quick [facility] INSTITUTEDATE of SERVICE: June 30, [...] CD, CARTIA XT)240 mg ORAL DAILY Giselle (Telegraphic Typewriter Operator) Croomfurosemide 40 mg tab(s) (LASIX) 40 mg [...] Douglas (Res)Sonia 5 mg at 06/29/17 0400pill market editor (patient-specific) 1 Each Miscell. (Med.Supl.;Non-Drugs) Sravani Harper) [...] Abdomen soft, nondistended, nontender, bowel sounds present [id number]: No clubbing or cyanosis Moves all extremities [...] NAME:Cristina JeffreyDATE:June 30, 2017 :11:07 AM PAGER/CONTACT #:[phone] Normal [facility] Protein mass conc HNO ID: [id number] thor: Giselle (Telegraphic Typewriter Operator) CroomService: ElectrophysiologyAuthor Type: Nurse PractitionerType: Progress NotesFiled: 06/30/2017 10:58 AMNote Text:H[facility] PROGRESS NOTE EP CARDIOLOGY SERVICESERVICE DATE: 06/30/2017SERVICE TIME: 10:51 AMSubjectiveINTERIM HISTORY: Cristina Jeffrey was transferred to telemetry flooryesterday. He had persistent atrial fibrillation and experienced RVR [id number]'s. He had change in MS and the resident was called. A Cardizem gttwas ordered. He was found to be oriented to person and place. He deniespalpitations, dizziness, syncope, CP, SOB.PHYSICAL EXAM:Body mass index is 29.7 kg/(m2).O2 Therapy: Room AirNo Data RecordedPatient Vitals for the past 24 hrs: BP Temp Temp src Pulse Resp MeB35606/30/17 0900 - - - 84 20 -06/30/17 [...] 5 mg ORAL q 4 H PRNpill market editor (patient-specific) 1 Each Miscell. (Med.Supl.;Non-Drugs) PRNDATA:Diagnostic tests reviewed for today's visit:Most recent labsMost recent telemetryPast 72 Hour Labs:Recent Labs 0 06/30/1803826499HADMJ -- 0.024 -- --WBC -- -- 12.41* [...] -- -- -- 2.2Last Lab Drawn:LDL Chol, Cobb 110 02/23/2010ssessment/PlanPrinc ipal Problem: GI bleeding POA: [...] GI after that appointmentSIGNATURE: Michelle Weeks, MSN, CAR PILOT PATIENT NAME: Cristina MooreTE: June 30, 2017 : 10:51 AM PAGER/CONTACT #: [phone] Normal [facility] Protein mass conc HNO ID: [id number] thor: Mirella Puri, MDService: [facility] MedicineAuthor Type: PhysicianType: Progress NotesFiled: 06/30/2017 10:57 AMNote Text:[facility] [place] [facility] MEDICINEPROGRESS NOTESubjectivePatient was seen, sleepy but responding [...] Jeffrey : 10:41 AM PAGER/CONTACT #: Normal [facility] Protein mass conc HNO ID: [id number] thor: Ella (Res) Arnoldervice: Critical CareAuthor Type: ResidentType: Progress NotesFiled: 06/29/2017 10:38 PMNote Text:I was called by RN at 10:13 to evaluate the patient for A.fib with RVR([id number]) with change in the mental status. Patient [...] as if you have any questions.Ella Frost M.D.GKO5Oprlj 1046 Normal [facility] Phosphorus Bloodon 8 Phosphate 1.7 mg/dL Critically low 2.5-4.9 [facility] Comment on above: Performed By: #### P T ####[facility] [place] [id number] THERAPY NTon 06-30-2017 THERAPY NT HNO ID: [id number] thor: Colette (Otr/L) Darcie Fried: Occupational TherapyAuthor Type: Occupational TherapistType: Therapy (PT/OT/Speech/Resp)Filed: 06/30/2017 4:11 PMNote Text:Occupational Therapy EvaluationSERVICE DATE: 06/30/2017SERVICE TIME: 1530 to 1555ROOM: [id number] Discharge Disposition: Subacute/SNFJustification For Post Acute Needs: [...] Involving Cognitive Functions and AwarenessInterventions Provided: Evaluation;Self Nursing Home Management (19289)$ Evaluation-Moderate (86208) Billed Units: 1 unitSelf Nursing Home Management (82637) Treatment Minutes: 91 unitSkilled Intervention(s):Edu pt on [...] severity modifiers aredocumented above.SUBJECTIVE:Current Hospital Course: Chart [id number] yo WM w/ hx sig for COPD, [...] June 30, 2017 : 4:05 PM PAGER: [phone] Normal [facility] Basic Panelon 06-29-2017 Creatinine 0.54 mg/dL Low 0.67-1.17 [facility] Comment on above: Performed By: #### R BCPS ####[facility] [place], [place] [address] Glucose mass conc 87 mg/dL Normal 70-99 [facility] Comment on above: Performed By: #### R BCPS ####[facility] [place] [address] Urea nitrogen 15 mg/dL Normal 7-18 [facility] Comment on above: Performed By: #### R BCPS ####[facility] [place], [place] [address] Anion gap 10 mmol/L Normal 8-16 [facility] Comment on above: Performed By: #### R BCPS ####[address] [address] Calcium 7.5 mg/dL Low 8.5-10.1 [facility] Comment on above: Performed By: #### R BCPS ####[place] [address] CO2 26 mmol/L Normal 21-32 [facility] Comment on above: Performed By: #### R BCPS ####[place] [address] Chloride 104 mmol/L Normal 98-107 [facility] Comment on above: Performed By: #### R BCPS ####[place] [address] Potassium molar conc 3.3 mmol/L Low 3.5-5.1 [facility] Comment on above: Performed By: #### R BCPS ####[place] [address] Sodium 137 mmol/L Normal 136-145 [facility] Comment on above: Performed By: #### R BCPS ####[place] [address] Hemogramon 06-29-2017 Erythrocyte distribution width Auto Ratio (RBC) 15.3 % High 11.6-14.4 [facility] Comment on above: Performed By: #### R BCPS ####[facility] [place] [address] Erythrocytes (RBC) 2.94 mil/cmm Low 4.63-6.08 [facility] Comment on above: Performed By: #### R BCPS ####[place] [address] Hematocrit (HCT) 26.5 % Low 40.1-51.0 [facility] Comment on above: Performed By: #### R BCPS ####[place] [address] Hemoglobin mass conc (Bld) 8.6 g/dL Low 13.7-17.5 [facility] Comment on above: Performed By: #### R BCPS ####[place] [address] MCH 29.3 pg Normal 25.7-32.2 [facility] Comment on above: Performed By: #### R BCPS ####[place] [address] MCHC mass conc (RBC) 32.5 % Normal 32.3-36.5 [facility] Comment on above: Performed By: #### R BCPS ####[place] [address] MCV 90.1 fL Normal 83.2-95.6 [facility] Comment on above: Performed By: #### R BCPS ####[place] [address] Platelet mean volume (PMV) 9.7 fL Normal 8.7-12.0 [facility] Comment on above: Performed By: #### R BCPS ####[place] [address] Platelets 311 thou/cmm Normal 141-365 [facility] Comment on above: Performed By: #### R BCPS ####[place] [address] RDW SD 48.6 fl High 36.1-45.8 [facility] Comment on above: Performed By: #### R BCPS ####[facility] [place], [place] [address] WBC (Leukocytes) 12.41 thou/cmm High 4.23-9.07 [facility] Comment on above: Performed By: #### R BCPS ####[facility] [place], [place] [address] Ionized Calciumon 06-29-2017 Ionized Ca,PH7.4 4.15 mg/dL Low 4.36-4.73 [facility] Comment on above: Performed By: #### P T ####[address] [address] Ionized Calcium 3.99 mg/dL Low 4.43-4.93 [facility] Comment on above: Performed By: #### P T ####[address] [address] pH of blood 7.476 [pH] High 7.320-7.42 0 [facility] Comment on above: Performed By: #### P T ####[address] [address] MDRD GFRon 06-29-2017 eGFR (non-black) mL/min/{1.73_m2} Normal >60mL/m in/ 1.73m2 [facility] Comment on above: Result Comment: If t he patient is , multiply the result by 1.210. Performed By: #### R BCPS ####[place] [id number] NURSING PROGon 06-29-2017 Protein mass conc HNO ID: [id number] thor: Kapil (Rn) KELLY Ramirezervice: NursingAuthor Type: Registered NurseType: Nursing Progress NoteFiled: 06/29/2017 10:02 PMNote Text: Pt HR in 130-140's afib. Notified MICU business analyst intern. Gave 5mg IV lopressor over5 min, then 2.5 mg IV lopressor after HR remained elevated. BP remainsstable. HR now in 120's and patient is otherwise asymptomatic. Spoke withICU resident and will monitor for HR sustained in 140's. Normal [facility] Protein mass conc HNO ID: [id number] thor: Adriana Spear) Sheryl Joshiice: (none)Author Type: Registered NurseType: Nursing Progress NoteFiled: 06/29/2017 6:15 PMNote Text: Nursing Progress NotePatient Name: Cristina LeeN: [id number] Location: [place] [address]/[place] [address]*____ Transfer Note:Patient transferred into room/unit 4206 via bed.This note was completed by: Adriana Joshi RN [facility] Protein mass conc HNO ID: [id number] thor: Adriana Spear) Sheryl Joshiice: (none)Author Type: Registered NurseType: Nursing Progress NoteFiled: 06/29/2017 5:22 PMNote Text: Nursing Progress NotePatient Name: Cristina LeeN: [id number] Location: [place] [address]*____ Report called to RN on 4200.This note was completed by: Adriana Joshi RN [facility] Protein mass conc HNO ID: [id number] thor: Adriana Spear) Sheyrl Joshiice: (none)Author Type: Registered NurseType: Nursing Progress NoteFiled: 06/29/2017 10:43 AMNote Text: Nursing Progress NotePatient Name: Cristina LeeN: [id number] Location: [place] [address]*____ Rounds with attending, RN, residents, and pharm D.This note was completed by: Adriana Joshi RN [facility] NUTRITIONon 06-29-2017 NUTRITION HNO ID: [id number] thor: Nishi Matias RDService: Nutrition TherapyAuthor Type: [...] 5 mg ORAL q 4 H PRNpill market editor (patient-specific) 1 Each Miscell. (Med.Supl.;Non-Drugs) PRNpotassium chloride [...] 06/26/17 0659 06/26/17 0700 - 06/27/17 0659 [id number] - 06/28/17 0659 06/28/17 0700 - 06/29/17 0659 06/29/17 0700 -06/30/17 0659 Intake (ml) 2936.1 2823.7 1659.1 1290 480 Output (ml) 1190 1051 3780 3855 930 Net (ml) 1746.1 1772.7 -2120.9 -2565 -450MNT Billing Type: Re-assess/15 min 2 unitsSIGNATURE: Nishi Matias RD PATIENT NAME: Cristina JeffreyDATE: June 29, 2017 : 3:53 PM PAGER: [phone] [facility] PROGRESSon 06-29-2017 Protein mass conc HNO ID: [id number] thor: Pilar Lemon: Critical CareAuthor Type: PhysicianType: Progress NotesFiled: 06/29/2017 1:30 PMNote Text:Please link this note to the resident's note completed on June 29, 2017.Impression/Recommendatio [facility] STAFF PHYSICIAN NOTE OF PERSONAL INVOLVEMENT IN [...] 29, 2017TIME of SERVICE: 10:07 AM Normal [facility] Protein mass conc HNO ID: [id number] thor: Giselle ([facility]) CroomService: ElectrophysiologyAuthor Type: Nurse PractitionerType: Progress NotesFiled: 06/29/2017 10:02 AMNote Text:HRA PROGRESS NOTE EP CARDIOLOGY SERVICESERVICE DATE: 06/29/2017SERVICE TIME: 9:51 AMSubjectiveINTERIM HISTORY: Cristina Jeffrey is laying in bed, he denies CP,palpitations, dizziness, syncope. He has DOEObjectivePHYSICAL EXAM:Body mass index is 29.7 kg/(m2).O2 Therapy: Room AirNo Data RecordedPatient Vitals for the past 24 hrs: BP Temp Temp src Pulse Resp SpO2 Bxnplu60/08/18 0923 - - - (!) 130 20 [...] tab(s) (LOPRESSOR) 25 mg ORAL q 8Hpill market editor (patient-specific) 1 Each Miscell. (Med.Supl.;Non-Drugs) PRNpantoprazole 40 [...] this interval not displayed.Last Lab Drawn:LDL Chol, Cobb 110 02/23/2010ssessment/PlanGI bleeding POA: Yes?Assessment AND?Plan: GI [...] with GI after thatappointment.SIGNATURE: Michelle Weeks, MSN, CAR PILOT PATIENT NAME: Cristina JeffreyDATE: June 29, 2017 : 9:51 AM PAGER/CONTACT #: [phone] Normal [facility] Protein mass conc HNO ID: [id number] thor: Kalyan (Res) PereraService: Critical CareAuthor Type: ResidentType: Progress NotesFiled: 06/29/2017 2:17 PMNote Text: At testation signed by Pilar Peoples at 06/29/2017 10:31 [facility] STAFF PHYSICIAN NOTE OF PERSONAL INVOLVEMENT [...] PROBLEM LISTShock (Hcc)Copd (Chronic Obstructive Pulmonary Disease) ([facility])HypertensionHyperlipidem iaGI BleedingAcute Respiratory Failure With Hypoxia and Hypercapnia (Hcc)Acute Blood Loss AnemiaHemorrhagic Shock ([facility])HypophosphatemiaAtrial Fibrillation With Rapid Ventricular Response ([facility])No past medical history on file.No past surgical [...] tab(s) (LOPRESSOR) 25 mg ORAL q 8Hpill market editor (patient-specific) 1 Each Miscell. (Med.Supl.;Non-Drugs) PRNpantoprazole 40 [...] June 29, 2017 : 9:02 AM Normal [facility] Phosphorus Bloodon 8 Phosphate 1.9 mg/dL Critically low 2.5-4.9 [facility] Comment on above: Performed By: #### R BCPS ####[place] [address] Prealbuminon 06-29-2017 Prealbumin 8.1 mg/dL Low 20.0-40.0 [facility] Comment on above: Performed By: #### P T ####[place] [address] THERAPY NTon 06-29-2017 THERAPY NT HNO ID: [id number] thor: Lucita (Pt) Uzair, PTService: Physical TherapyAuthor Type: Physical TherapistType: Therapy (PT/OT/Speech/Resp)Filed: 06/29/2017 4:26 PMNote Text:Physical Therapy EvaluationSERVICE DATE: 06/29/2017SERVICE TIME: 1525 to 1605ROOM: [id number] on Admission:- Shock (HCC)- COPD (chronic obstructive [...] onfeet;Abnormalities of gait and mobility-otherInterventions Provided: Evaluation;Therapeutic Exercise(01271);Therapeutic Activity (68531)$ Evaluation-Moderate (05852) Billed Units: 1 unitEducation and discussion regarding findings relevant to patient'sfunctional mobility needs and continued PT at long term facility toimprove independence.Therapeutic Exercise (13753) Treatment Minutes: 121 unitSkilled Intervention(s): Patient instructed in and performed ankle pump,gluteal set, hip abd/add, long arc quad x 12 reps with no physical assistto improve strength for functional mobility. Three rlp-ng-[id number] for legstrength. Patient required 1 monitored rest break during exercises.Therapeutic Activity (71828) Treatment Minutes: 131 unitSkilled Intervention(s): Instruction and [...] 29, 2017 : 4:10 PM PAGER/CONTACT #: [phone] reviewed and addended with the documentation corresponding to thistherapy visit.Evaluation and/or treatment directly supervised by licensed PhysicalTherapist. Normal [facility] Troponin Ion 06-29-2017 Troponin I.cardiac mass conc 0.024 ng/mL Normal 0.015-0.04 5 [facility] Comment on above: Performed By: #### P T ####[place] [address] ALLIED HEALTHon 06-28-2017 ALLIED HEALTH HNO ID: [id number] thor: Tatum Saxena (Chaplain)ervice: (none)Author Type: ChaplainType: Allied HealthFiled: 06/28/2017 12:12 PMNote Text: SPIRITUALCARESpiritual Care Visit- Brief NoteName: Cristina JeffreyMRN: [id number]: June 28, 2017Notes: As continuity writer made intro visit to patient. Patient expressed that hehad been in the hospital for weeks and was ready to go home. Patientexpressed frustration with his liquid diet and that he wanted real food.Sat with patient. Visit ended when family arrived. Informed patient [place] isavailable 14/11. Chaplain Signature: Consuelo Saxena contact the [facility] Care Department:Please call [phone] or Page the On-Call Pump Rebuilder at pager [phone] you for the opportunity to be of service.This is an electronically created document.IF PRINTED, PLEASE DO NOT REMOVE FROM THE CHART OR MODIFY PRINTED COPY. Normal [facility] Basic Panelon 06-28-2017 Creatinine 0.53 mg/dL Low 0.67-1.17 [facility] Comment on above: Performed By: #### R BCPS ####[place] [address] Anion gap 9 mmol/L Normal 8-16 [facility] Comment on above: Performed By: #### R BCPS ####[address] [address] Calcium 7.4 mg/dL Low 8.5-10.1 [facility] Comment on above: Performed By: #### R BCPS ####[facility] [place] [address] CO2 28 mmol/L Normal 21-32 [facility] Comment on above: Performed By: #### R BCPS ####[facility] [place] [address] Glucose mass conc 100 mg/dL High 70-99 [facility] Comment on above: Performed By: #### R BCPS ####[place] [address] Urea nitrogen 13 mg/dL Normal 7-18 [facility] Comment on above: Performed By: #### R BCPS ####[facility] [place], [place] [address] Chloride 102 mmol/L Normal 98-107 [facility] Comment on above: Performed By: #### R BCPS ####[facility] [place], [place] [address] Potassium molar conc 3.5 mmol/L Normal 3.5-5.1 [facility] Comment on above: Performed By: #### R BCPS ####[facility] [place], [place] [address] Sodium 135 mmol/L Low 136-145 [facility] Comment on above: Performed By: #### R BCPS ####[address] [address] Creatinine 0.60 mg/dL Low 0.67-1.17 [facility] Comment on above: Performed By: #### R BCPS ####[address] [address] Glucose mass conc 88 mg/dL Normal 70-99 [facility] Comment on above: Performed By: #### R BCPS ####[address] [address] Anion gap 11 mmol/L Normal 8-16 [facility] Comment on above: Performed By: #### R BCPS ####[address] [address] CO2 24 mmol/L Normal 21-32 [facility] Comment on above: Performed By: #### R BCPS ####[address] [address] Urea nitrogen 15 mg/dL Normal 7-18 [facility] Comment on above: Performed By: #### R BCPS ####[address] [address] Calcium 7.2 mg/dL Low 8.5-10.1 [facility] Comment on above: Performed By: #### R BCPS ####[place] [address] Chloride 105 mmol/L Normal 98-107 [facility] Comment on above: Performed By: #### R BCPS ####[facility] [place], [place] [address] Potassium molar conc 3.8 mmol/L Normal 3.5-5.1 [facility] Comment on above: Performed By: #### R BCPS ####[facility] [place], [place] [address] Sodium 136 mmol/L Normal 136-145 [facility] Comment on above: Performed By: #### R BCPS ####[facility] [place], [place] [address] CASE MANAGEMon 06-28-2017 CASE MANAGEM HNO ID: [id number] thor: Toshia (Rn) KELLY Dumaservice: Care ManagementAuthor [...] 28, 2017 : 3:44 PM PAGER/CONTACT #: [phone] Normal [facility] CHEST 1 VIEWon 06-28-2017 CHEST 1 VIEW Performed at [facility] APPROVED BY: Dre Woodward MD EXAM TITLE: [...] volumes. 3. Otherwise no acute disease. Normal [facility] Hemogramon 06-28-2017 Erythrocyte distribution width Auto Ratio (RBC) 15.9 % High 11.6-14.4 [facility] Comment on above: Performed By: #### R BCPS ####[place] [address] Erythrocytes (RBC) 3.04 mil/cmm Low 4.63-6.08 [facility] Comment on above: Performed By: #### R BCPS ####[place] [address] Hematocrit (HCT) 27.2 % Low 40.1-51.0 [facility] Comment on above: Performed By: #### R BCPS ####[place] [address] Hemoglobin mass conc (Bld) 8.9 g/dL Low 13.7-17.5 [facility] Comment on above: Performed By: #### R BCPS ####[place] [address] MCH 29.3 pg Normal 25.7-32.2 [facility] Comment on above: Performed By: #### R BCPS ####[place] [address] MCHC mass conc (RBC) 32.7 % Normal 32.3-36.5 [facility] Comment on above: Performed By: #### R BCPS ####[place] [address] MCV 89.5 fL Normal 83.2-95.6 [facility] Comment on above: Performed By: #### R BCPS ####[place] [address] Nucleated erythrocytes 0.02 thou/cmm High 0.00-0.01 [facility] Comment on above: Performed By: #### R BCPS ####[address] [address] Nucleated RBC % 0.2 % Normal 0.0-0.2 [facility] Comment on above: Performed By: #### R BCPS ####[address] [address] Platelet mean volume (PMV) 9.4 fL Normal 8.7-12.0 [facility] Comment on above: Performed By: #### R BCPS ####[address] [address] Platelets 243 thou/cmm Normal 141-365 [facility] Comment on above: Performed By: #### R BCPS ####[address] [address] RDW SD 50.4 fl High 36.1-45.8 [facility] Comment on above: Performed By: #### R BCPS ####[place] [address] WBC (Leukocytes) 13.29 thou/cmm High 4.23-9.07 [facility] Comment on above: Performed By: #### R BCPS ####[place] [id number] MDRD GFRon 06-28-2017 eGFR (non-black) mL/min/{1.73_m2} Normal >60mL/m in/ 1.73m2 [facility] Comment on above: Result Comment: If t he patient is , multiply the result by 1.210. Performed By: #### R BCPS ####[address] [address] eGFR (non-black) mL/min/{1.73_m2} Normal >60mL/m in/ 1.73m2 [facility] Comment on above: Result Comment: If t he patient is , multiply the result by 1.210. Performed By: #### R BCPS ####[address] [address] Magnesium Bloodon 06-28-2017 Magnesium 2.2 mg/dL Normal 1.6-2.6 [facility] Comment on above: Performed By: #### R BCPS ####[facility] [place], [place] [address] Magnesium 2.2 mg/dL Normal 1.6-2.6 [facility] Comment on above: Performed By: #### R BCPS ####[facility] [place], [place] [address] PROGRESSon 06-28-2017 Protein mass conc HNO ID: [id number] thor: Giselle ([facility]) CroomService: ElectrophysiologyAuthor Type: Nurse PractitionerType: Progress NotesFiled: [...] BP Temp Temp src Pulse Resp SpO2 Jbvbsf89/07/18 1214 141/99 - - (!) 150 - [...] tab(s) (LOPRESSOR) 25 mg ORAL q 8Hpill market editor (patient-specific) 1 Each Miscell. (Med.Supl.;Non-Drugs) PRNpantoprazole 40 [...] recent telemetryPast 72 Hour Labs:Recent Labs 06/28/1809345 [id number] 0.064* -- -- -- -- -- --DIGOXIN [...] atrial fibrillation recurred at 11:50 this AM, [id number] bpm. Prior to that he was in SR with PAC's. He is asymptomatic. Heis chadvasc of 2 and not on oral ATC therefore Amiodarone will not beresumed. Will attempt to rate control with Metoprolol since BP is stable.I've ordered 5mg IV x 1 and 25mg PO Q 8 hours. I will continue to monitorhim.SIGNATURE: Michelle Weeks, MSN, CAR PILOT PATIENT NAME: Cristina JeffreyDATE: June 28, 2017 : 12:29 PM PAGER/CONTACT #: [phone] Normal [facility] Protein mass conc HNO ID: [id number] thor: Pilar Ernestoe: Critical CareAuthor Type: PhysicianType: [...] 28, 2017TIME of SERVICE: 10:07 AM Normal [facility] Protein mass conc HNO ID: [id number] thor: Kalyan Sahu PereraService: Critical CareAuthor Type: ResidentType: Progress NotesFiled: 06/28/2017 2:06 PMNote Text: At testation signed by Pilar Peoples at 06/29/2017 9:28 [facility] STAFF PHYSICIAN NOTE OF PERSONAL INVOLVEMENT [...] D5W 250 mL 30 mmol INTRAVENOUS ONCEpill market editor (patient-specific) 1 Each Miscell. (Med.Supl.;Non-Drugs) PRNipratropium-albuterol 3 [...] June 28, 2017 : 9:02 AM Normal [facility] Phosphorus Bloodon 8 Phosphate 2.1 mg/dL Low 2.5-4.9 [facility] Comment on above: Performed By: #### R BCPS ####[facility] [place] [address] Phosphate 2.1 mg/dL Low 2.5-4.9 [facility] Comment on above: Performed By: #### R BCPS ####[place] [address] THERAPY NTon 06-28-2017 THERAPY NT HNO ID: [id number] thor: Michaela ([facility]-Head Of Advertising) ELLIOTT Salcido/SLPService: Speech/SwallowAuthor Type: Speech Language PathologistType: Therapy (PT/OT/Speech/Resp)Filed: 06/28/2017 11:30 AMNote Text:Speech Therapy Clinical Swallow EvaluationSERVICE DATE: 06/28/2017SERVICE TIME: 1050 to 1115ROOM: [id number] Recommendations: See swallow guide posted in patientsroom;Reinforce [...] Dysphagia, oropharyngeal phaseInterventions Provided: Clinical Swallow Evaluation (80833)$ Clinical Swallow Evaluation (85141) Billed Units: 1 unitTotal Treatment Time (minutes): 25FUNCTIONAL G CODE:G Code Functional Limitations: Swallowing (06/28/17 105)Swallow Current Status (G8996): CJ (06/28/17 1050)Swallow Goal Status (G8997): CI (06/28/17 1050)Based on clinical assessment and the score on the Functional CommunicationMeasure (FCM), the G code and corresponding severity modifiers aredocumented above.SUBJECTIVE:Current Hospital Course: Chart reviewed;Reason for admission: presented to [facility] with dyspnea who received abreathing treatment and then became increasingly altered, believed to bein hypovolemic/hemorrhagic shock from a GI bleedReason for ST consult: concern for dysphagia post extubationNo past medical history on file.Patient Report: "I'm getting anxious"Home EnvironmentPrior Swallowing Function/Diet Textures: Regular Consistency;Thin liquidsPlease see discipline specific clinical documentation flowsheet forcomplete details for this therapy evaluation/treatment.SIGNATAHMET E: Michaela Salcido [facility] REPAIR TECHNICIAN PATIENT NAME: Cristina JeffreyDATE: June 28, 2017 : 11:20 AM PAGER: [phone] Normal [facility] Troponin Ion 06-28-2017 Troponin I.cardiac mass conc 0.064 ng/mL High 0.015-0.04 5 [facility] Comment on above: Performed By: #### R BCPS ####[place] [address] Venous Blood Gason 8 FIO2 28 % Normal [facility] Comment on above: Performed By: #### R BCPS ####[place] [address] Base Excess 0.1 mEq/L Normal -2.5 to 2.5 [facility] Comment on above: Performed By: #### R BCPS ####[place] [address] Bicarbonate (HCO3) 24.8 mmol/L Normal 22.0-26.0 [facility] Comment on above: Performed By: #### R BCPS ####[place] [address] Body temperature 37.0 Normal [facility] Comment on above: Performed By: #### R BCPS ####[place] [address] CO2 40.5 mm Hg Normal 38.0-49.0 [facility] Comment on above: Performed By: #### R BCPS ####[place] [address] O2% Sat Venous 67.5 % Low 70.0-80.0 [facility] Comment on above: Performed By: #### R BCPS ####[address], [place] [address] pH Venous 7.406 Normal 7.320-7.42 0 [facility] Comment on above: Performed By: #### R BCPS ####[facility] [place], [place] [address] PO2 Venous 37.7 mm Hg Normal 35.0-45.0 [facility] Comment on above: Performed By: #### R BCPS ####[facility] [place] [address] Basic Panelon 06-27-2017 Creatinine 0.67 mg/dL Normal 0.67-1.17 [facility] Comment on above: Performed By: #### R BCPS ####[place] [address] Anion gap 10 mmol/L Normal 8-16 [facility] Comment on above: Performed By: #### R BCPS ####[address] [address] CO2 26 mmol/L Normal 21-32 [facility] Comment on above: Performed By: #### R BCPS ####[address] [address] Glucose mass conc 108 mg/dL High 70-99 [facility] Comment on above: Performed By: #### R BCPS ####[address] [address] Urea nitrogen 20 mg/dL High 7-18 [facility] Comment on above: Performed By: #### R BCPS ####[facility] [place], [place] [address] Calcium 7.5 mg/dL Low 8.5-10.1 [facility] Comment on above: Performed By: #### R BCPS ####[place] [address] Chloride 106 mmol/L Normal 98-107 [facility] Comment on above: Performed By: #### R BCPS ####[address] [address] Potassium molar conc 3.7 mmol/L Normal 3.5-5.1 [facility] Comment on above: Performed By: #### R BCPS ####[facility] [place], [place] [address] Sodium 138 mmol/L Normal 136-145 [facility] Comment on above: Performed By: #### R BCPS ####[facility] [place], [place] [address] Creatinine 0.62 mg/dL Low 0.67-1.17 [facility] Comment on above: Performed By: #### R BCPS ####[facility] [place], [place] [address] Glucose mass conc 96 mg/dL Normal 70-99 [facility] Comment on above: Performed By: #### R BCPS ####[address] [address] Urea nitrogen 18 mg/dL Normal 7-18 [facility] Comment on above: Performed By: #### R BCPS ####[address] [address] Anion gap 8 mmol/L Normal 8-16 [facility] Comment on above: Performed By: #### R BCPS ####[address] [address] Calcium 7.5 mg/dL Low 8.5-10.1 [facility] Comment on above: Performed By: #### R BCPS ####[address] [address] CO2 25 mmol/L Normal 21-32 [facility] Comment on above: Performed By: #### R BCPS ####[address] [address] Chloride 109 mmol/L High 98-107 [facility] Comment on above: Performed By: #### R BCPS ####[address] [address] Potassium molar conc 4.0 mmol/L Normal 3.5-5.1 [facility] Comment on above: Performed By: #### R BCPS ####[place] [address] Sodium 138 mmol/L Normal 136-145 [facility] Comment on above: Performed By: #### R BCPS ####[facility] [place] [address] CHEST 1 VIEWon 06-27-2017 CHEST 1 VIEW Performed at [facility] APPROVED BY: Porfirio Figueroa MD EXAM TITLE: [...] Possible stable trace left pleural effusion. Normal [facility] CONSULT PROGon 06-27-2017 Protein mass conc HNO ID: [id number] thor: Andrade RiverainoService: GastroenterologyAuthor Type: PhysicianType: Consult [...] (BIAXIN) 500 mg ORAL q 12 Hpill market editor (patient-specific) 1 Each Miscell. (Med.Supl.;Non-Drugs) PRNipratropium-albuterol 3 [...] (227 lb 4.7 oz) SpO2 99% BMI 32.61kg/c4MTOJHAH:DATA:Diagno stic tests reviewed for today's visit:Most recent [...] : 12:54 PM PAGER/CONTACT #: [phone] Normal [facility] Digoxin,Randomon 06-27-2017 INR Coag RelTime (Bld) 0.79 ng/ml Low 0.80-2.00 [facility] Comment on above: Performed By: #### R BCPS ####[place] [address] Hemogramon 06-27-2017 Erythrocyte distribution width Auto Ratio (RBC) 17.1 % High 11.6-14.4 [facility] Comment on above: Performed By: #### R BCPS ####[place] [address] Erythrocytes (RBC) 2.75 mil/cmm Low 4.63-6.08 [facility] Comment on above: Performed By: #### R BCPS ####[facility] [place], [place] [address] Hematocrit (HCT) 24.4 % Low 40.1-51.0 [facility] Comment on above: Performed By: #### R BCPS ####[place] [address] Hemoglobin mass conc (Bld) 8.0 g/dL Low 13.7-17.5 [facility] Comment on above: Performed By: #### R BCPS ####[place] [address] MCH 29.1 pg Normal 25.7-32.2 [facility] Comment on above: Performed By: #### R BCPS ####[place] [address] MCHC mass conc (RBC) 32.8 % Normal 32.3-36.5 [facility] Comment on above: Performed By: #### R BCPS ####[place] [address] MCV 88.7 fL Normal 83.2-95.6 [facility] Comment on above: Performed By: #### R BCPS ####[place] [address] Nucleated erythrocytes 0.04 thou/cmm High 0.00-0.01 [facility] Comment on above: Performed By: #### R BCPS ####[place] [address] Nucleated RBC % 0.3 % High 0.0-0.2 [facility] Comment on above: Performed By: #### R BCPS ####[place] [address] Platelet mean volume (PMV) 9.6 fL Normal 8.7-12.0 [facility] Comment on above: Performed By: #### R BCPS ####[place] [address] Platelets 163 thou/cmm Normal 141-365 [facility] Comment on above: Performed By: #### R BCPS ####[facility] [place], [place] [address] RDW SD 53.2 fl High 36.1-45.8 [facility] Comment on above: Performed By: #### R BCPS ####[facility] [place], [place] [address] WBC (Leukocytes) 11.59 thou/cmm High 4.23-9.07 [facility] Comment on above: Performed By: #### R BCPS ####[facility] [place], [place] [address] MDRD GFRon 06-27-2017 eGFR (non-black) mL/min/{1.73_m2} Normal >60mL/m in/ 1.73m2 [facility] Comment on above: Result Comment: If t he patient is , multiply the result by 1.210. Performed By: #### R BCPS ####[address] [address] eGFR (non-black) mL/min/{1.73_m2} Normal >60mL/m in/ 1.73m2 [facility] Comment on above: Result Comment: If t he patient is , multiply the result by 1.210. Performed By: #### R BCPS ####[address] [address] NURSING PROGon 06-27-2017 Protein mass conc HNO ID: [id number] thor: Lili (Rn) KELLY Venegaservice: ADT-MICUAuthor Type: Registered NurseType: Nursing Progress NoteFiled: 06/27/2017 10:15 AMNote Text:Pt remains intubated with a miranda, Central Line AND feeding Tube - ptrequirement restraints d/t use of Diprivan, pt awake/sleeping on AND off Normal [facility] Protein mass conc HNO ID: [id number] Author: Carlee BarnettRn) Jane, RN Service: ADT-SICU Author Type: Registered Nurse Type: Nursing Progress Note Filed: 06/27/2017 6:23 AM Note Text: Scanned bladder > 200 ml replaced miranda Normal [facility] PROGRESSon 06-27-2017 Protein mass conc HNO ID: [id number] thor: Pierce FuentesMercy Health Willard Hospitalice: General SurgeryAcoma-Canoncito-Laguna Service [place] Type: ResidentType: Brenda NotesFiled: 06/27/2017 6:40 PMNote Text: At testation signed by Ellen Kelley at 06/27/2017 8:22 PM [facility] STAFF:I have personally seen and evaluated [...] to bleed requiring surgicalintervention.D/w Dr. Kelley.Pierce Montiel MDGeneashtabula county medical center Surgery Chief ResidentThe [facility] 2017 6:40 [facility] #: Pager: [phone] Normal [facility] Protein mass conc HNO ID: [id number] thor: Kalyan Sahu PereraService: Critical CareAuthor Type: ResidentType: Progress NotesFiled: 06/27/2017 4:31 PMNote Text: At testation signed by Pilar Peoples at 06/28/2017 6:56 [facility] STAFF PHYSICIAN NOTE OF PERSONAL INVOLVEMENT [...] CONTINUOUSdilTIAZem 100 mg in D5W 100 mL ADD-[place] (CARDIZEM) 5-15 mg/hrINTRAVENOUS CONTINUOUSamoxicillin 1,000 mg cap(s) (POLYMOX, AMOXIL) 1,000 mg ORAL q 12 Hclarithromycin 500 mg tab(s) (BIAXIN) 500 mg ORAL q 12 Hpill market editor (patient-specific) 1 Each Miscell. (Med.Supl.;Non-Drugs) PRNipratropium-albuterol 3 [...] June 27, 2017 : 9:02 AM Normal [facility] Protein mass conc HNO ID: [id number] thor: Giselle ([facility]) CroomService: ElectrophysiologyAuthor Type: Nurse PractitionerType: Progress NotesFiled: [...] 24 hrs: BP Temp Pulse Resp SpO2 Vavuha83/06/18 1530 - 37.8 ?C (100 ?F) 92 [...] mcg injection (LANOXIN) 125 mcg INTRAVENOUS DAILYpill market editor (patient-specific) 1 Each Miscell. (Med.Supl.;Non-Drugs) PRNipratropium-albuterol 3 [...] this interval not displayed.Last Lab Drawn:LDL Chol, [facility] 110 02/23/2010ssessment/PlanPrinc ipal Problem: GI bleeding POA: [...] EP will f/u tomorrow.??SIGNATURE: Michelle Weeks, MSN, CAR PILOT PATIENT NAME: Cristina JeffreyDATE: June 27, 2017 : 4:26 PM PAGER/CONTACT #: [phone] Normal [facility] Protein mass conc HNO ID: [id number] thor: Pilar Orozcoe: Critical CareAuthor Type: PhysicianType: Progress NotesFiled: 06/27/2017 2:36 PMNote Text:Please link this note to the resident's note completed on June 27, 2017.Impression/Recommendatio [facility] STAFF PHYSICIAN NOTE OF PERSONAL INVOLVEMENT IN [...] EF 65%, Hb stable,Resp Cx normal oropharyngeal robni, rare WBCs Data: All data reviewed. All [...] 27, 2017TIME of SERVICE: 9:43 AM Normal [facility] Phosphorus Bloodon 8 Phosphate 1.9 mg/dL Critically low 2.5-4.9 [facility] Comment on above: Performed By: #### R BCPS ####[place] [address] Basic Panelon 06-26-2017 Creatinine 0.63 mg/dL Low 0.67-1.17 [facility] Comment on above: Performed By: #### F FPXS ####[facility] [place], [place] [address] Anion gap 8 mmol/L Normal 8-16 [facility] Comment on above: Performed By: #### F FPXS ####[facility] [place], [place] [address] CO2 26 mmol/L Normal 21-32 [facility] Comment on above: Performed By: #### F FPXS ####[facility] [place], [place] [address] Glucose mass conc 99 mg/dL Normal 70-99 [facility] Comment on above: Performed By: #### F FPXS ####[address] [address] Urea nitrogen 21 mg/dL High 7-18 [facility] Comment on above: Performed By: #### F FPXS ####[place] [address] Calcium 6.7 mg/dL Low 8.5-10.1 [facility] Comment on above: Performed By: #### F FPXS ####[address] [address] Chloride 110 mmol/L High 98-107 [facility] Comment on above: Performed By: #### F FPXS ####[address] [address] Potassium molar conc 3.2 mmol/L Low 3.5-5.1 [facility] Comment on above: Performed By: #### F FPXS ####[place] [address] Sodium 141 mmol/L Normal 136-145 [facility] Comment on above: Performed By: #### F FPXS ####[place] [address] CASE MANAGEMon 06-26-2017 CASE MANAGEM HNO ID: [id number] thor: Toshia (Rn) KELLY Dumaservice: Care ManagementAuthor [...] 26, 2017 : 12:05 PM PAGER/CONTACT #: [phone] Normal [facility] CHEST 1 VIEWon 06-26-2017 CHEST 1 VIEW Performed at [facility] APPROVED BY: Gaudencio Devi MD EXAMINATION: CHEST [...] appear similar. Support devices as noted. Normal [facility] CONSULT PROGon 06-26-2017 Protein mass conc HNO ID: [id number] thor: Andrade Olivaervice: GastroenterologyAuthor Type: PhysicianType: Consult [...] lb 9 oz) SpO2 98% BMI 31.79 kg/s6FHJUCZA: soft, NT, ND, +BSDATA:Diagnostic tests reviewed for [...] the patientSIGNATURE: Andrade Pena MD PATIENT NAME: Crisitna JeffreyDATE: June 26, 2017 : 12:24 PM PAGER/CONTACT #: [phone] Normal [facility] Cult and Smr Respiratoryon 0 06-26-2017 Cult and Smr Respiratory Test performed at [facility] Normal oropharyngeal robin present. <25 epithelial cells per low power field Rare WBC No organisms seen Normal [facility] Comment on above: Performed By: #### R BCPS ####[facility] [place], [place] [address] Glucose Meteron 06-26-2017 Glucose mass conc 108 mg/dL High 70-99 [facility] Comment on above: Performed By: #### R BCPS ####[facility] [place], [place] [address] Glucose mass conc 116 mg/dL High 70-99 [facility] Comment on above: Performed By: #### R BCPS ####[address] [address] Glucose mass conc 121 mg/dL High 70- [facility] Comment on above: Result Comment: GREGORY PAEZ Performed By: #### T &S ####[address] [address] Glucose mass conc 118 mg/dL High 70-99 [facility] Comment on above: Performed By: #### F FPXS ####[address] [address] Hemogramon 06-26-2017 Erythrocyte distribution width Auto Ratio (RBC) 17.3 % High 11.6-14.4 [facility] Comment on above: Performed By: #### F FPXS ####[address] [address] Erythrocytes (RBC) 2.85 mil/cmm Low 4.63-6.08 [facility] Comment on above: Performed By: #### F FPXS ####[address] [address] Hematocrit (HCT) 25.1 % Low 40.1-51.0 [facility] Comment on above: Performed By: #### F FPXS ####[address] [address] Hemoglobin mass conc (Bld) 8.4 g/dL Low 13.7-17.5 [facility] Comment on above: Performed By: #### F FPXS ####[address] [address] MCH 29.5 pg Normal 25.7-32.2 [facility] Comment on above: Performed By: #### F FPXS ####[place] [address] MCHC mass conc (RBC) 33.5 % Normal 32.3-36.5 [facility] Comment on above: Performed By: #### F FPXS ####[place] [address] MCV 88.1 fL Normal 83.2-95.6 [facility] Comment on above: Performed By: #### F FPXS ####[place] [address] Nucleated erythrocytes 0.02 thou/cmm High 0.00-0.01 [facility] Comment on above: Performed By: #### F FPXS ####[place] [address] Nucleated RBC % 0.1 % Normal 0.0-0.2 [facility] Comment on above: Performed By: #### F FPXS ####[place] [address] Platelet mean volume (PMV) 9.6 fL Normal 8.7-12.0 [facility] Comment on above: Performed By: #### F FPXS ####[place] [address] Platelets 138 thou/cmm Low 141-365 [facility] Comment on above: Performed By: #### F FPXS ####[place] [address] RDW SD 53.6 fl High 36.1-45.8 [facility] Comment on above: Performed By: #### F FPXS ####[place] [address] WBC (Leukocytes) 14.53 thou/cmm High 4.23-9.07 [facility] Comment on above: Performed By: #### F FPXS ####[place] [address] Hepatic Panelon 03-05-2018 Alkaline phosphatase (ALP) 53 U/L Normal 46-116 [facility] Comment on above: Performed By: #### T &S ####[address] [address] Bilirubin Ql (U) 1.1 mg/dL High 0.2-1.0 [facility] Comment on above: Performed By: #### T &S ####[facility] [place], [place] [address] Protein 4.8 g/dL Low 6.4-8.2 [facility] Comment on above: Performed By: #### T &S ####[address] [address] Alanine aminotransferase (ALT) 66 U/L Normal 12-78 [facility] Comment on above: Performed By: #### T &S ####[address] [address] Aspartate aminotransferase (AST) 30 U/L Normal 9-37 [facility] Comment on above: Performed By: #### T &S ####[address] [address] Bilirubin (total) 0.58 mg/dL High 0.00-0.20 [facility] Comment on above: Performed By: #### T &S ####[address] [address] Albumin 1.7 g/dL Low 3.4-5.0 [facility] Comment on above: Performed By: #### T &S ####[address] [address] Hgbon 06-26-2017 Hemoglobin mass conc (Bld) 8.1 g/dL Low 13.7-17.5 [facility] Comment on above: Performed By: #### R BCPS ####[address] [address] Hemoglobin mass conc (Bld) 8.4 g/dL Low 13.7-17.5 [facility] Comment on above: Performed By: #### F FPXS ####[place] [address] [place], [place] [address] Ionized Calciumon 06-26-2017 Ionized Ca,PH7.4 3.67 mg/dL Low 4.36-4.73 [facility] Comment on above: Performed By: #### T &S ####[address] [address] Ionized Calcium 3.65 mg/dL Low 4.43-4.93 [facility] Comment on above: Performed By: #### T &S ####[address] [address] pH of blood 7.409 [pH] Normal 7.320-7.42 0 [facility] Comment on above: Performed By: #### T &S ####[place] [id number] MDRD GFRon 06-26-2017 eGFR (non-black) mL/min/{1.73_m2} Normal >60mL/m in/ 1.73m2 [facility] Comment on above: Result Comment: If t he patient is , multiply the result by 1.210. Performed By: #### F FPXS ####[place] [id number] Magnesium Bloodon 06-26-2017 Magnesium 2.3 mg/dL Normal 1.6-2.6 [facility] Comment on above: Performed By: #### T &S ####[place] [id number] NURSING PROGon 06-26-2017 Protein mass conc HNO ID: [id number] thor: Lili (Rn) KELLY Venegaservice: ADT-MICUAuthor Type: Registered NurseType: Nursing Progress NoteFiled: 06/26/2017 4:08 PMNote Text: nikos wrist restaints - pulls at tubings when not restrainded - willcontinue to monitor for need of restraints Normal [facility] Protein mass conc HNO ID: [id number] Author: Carlee BarnettRn) GREGORY Lara Service: ADT-SICU Author Type: Registered Nurse Type: Nursing Progress Note Filed: 06/25/2017 10:12 PM Note Text: Patient still needs bilateral wrist restraints. When he has his arms released he goes for ET. Normal [facility] PROGRESSon 06-26-2017 Protein mass conc HNO ID: [id number] thor: Giselle (Telegraphic Typewriter Operator) CroomService: ElectrophysiologyAuthor Type: Nurse PractitionerType: Progress NotesFiled: 06/26/2017 5:18 PMNote Text:PROGRESS NOTE CARDIOLOGY SERVICESERVICE DATE: 06/26/2017SERVICE TIME: 5:00 PMSubjectiveINTERIM HISTORY: Cristina Jeffrey is sedated and intubated. He is easilyaroused. He follows commands. Denies palpitationsObjectivePHYSICAL EXAM:Body mass index is 31.79 kg/(m2).O2 Therapy: VentilatorNo Data RecordedPatient Vitals for the past 24 hrs: BP Temp Pulse Resp SpO2 Qxsvuy06/05/18 1550 - - (!) 122 22 99 [...] ONCEdilTIAZem 100 mg in D5W 100 mL ADD-[place] (CARDIZEM) 5-15 mg/hrINTRAVENOUS CONTINUOUSamoxicillin 1,000 mg cap(s) [...] EP will continueto monitor.SIGNATURE: Michelle Weeks, MSN, CAR PILOT PATIENT NAME: Cristina MooreTE: June 26, 2017 : 5:00 PM PAGER/CONTACT #: [phone] Normal [facility] Protein mass conc HNO ID: [id number] thor: Kalyan (Adelina) PereraService: Critical CareAuthor Type: [...] June 26, 2017 : 9:02 AM Normal [facility] Protein mass conc HNO ID: [id number] thor: Pilar Orozcoe: Critical CareAuthor Type: PhysicianType: [...] 26, 2017TIME of SERVICE: 8:45 AM Normal [facility] Protein mass conc HNO ID: [id number] thor: Pierce Navarreteervice: General SurgeryAuthor Type: ResidentType: [...] issues or questions. =======Ellen Kelley MD [facility] General Surgery Progress NoteSERVICE DATE: 06/26/2017SUBJECTIVE:Dark BM overnight.OBJECTIVE:Vitals:Te mp (24hrs), Av.2 ?C (99 ?F), Min:36.9 ?C (98.4 ?F), Max:38 ?C (100.4?F)BP 102/68 Pulse 119 Temp 37.3 ?C (99.1 ?F) Resp 26 Ht 177.8 cm (5'10") Wt 100.5 kg (221 lb 9 oz) SpO2 100% BMI 31.79 kg/m2O2 Therapy: VentilatorIANDO:Date 06/25/[address] - 06/26/17 0659 06/26/[address] - 06/27/17 0659Shift 4744-2235 1026-8969 3676-3105 24 Hour Total 6519-1185 3496-63285570-1229 24 Hour TotalINTAKE IV 744.9 1166.4 1024.8 [...] Montiel MDGeneral Surgery Chief ResidentMar 2017 7:22 [facility] #: Pager: [phone] Normal [facility] Protein mass conc HNO ID: [id number] thor: Hollis Manninge: Critical CareAuthor Type: PhysicianType: Progress NotesFiled: 06/25/2017 10:53 PMNote Text:Notes and meds reviewed. Full ROS with RN and RT. Failed SBT again thisam. Heart rate better now. Per RN, follows commands. Still gettingphos.On exam:98/71, 110s, 37.4, 25, 97% on 30% ObN5VBWQ 500/ 12/ 30%/ 5On sedationNAD; per RN [...] care services: ?41?minutes.??SIGNATURE: MAICO Garcia INSTITUTEPAGER:1030 Normal [facility] Phosphorus Bloodon 8 Phosphate 2.0 mg/dL Low 2.5-4.9 [facility] Comment on above: Performed By: #### T &S ####[place] [address] Procalcitoninon 06-26-2017 Procalcitonin 0.11 ng/mL Normal [facility] Comment on above: Result Comment: Leve ls [...] procalcitonin elevations. Performed By: #### F FPXS ####[place] [address] TSH, 3rd generationon 2017 TSH, 3rd generation 1.060 uIU/mL Normal 0.358-3. 74 0 [facility] Comment on above: Performed By: #### T &S ####[place] [address] ALLIED HEALTHon 06-25-2017 ALLIED HEALTH HNO ID: [id number] thor: Varun Corona) Tatum Goodervice: Spiritual CareAuthospenser Type: ChaplainType: Allied HealthFiled: 06/25/2017 6:17 PMNote Text: SPIRITUALCARESpiritual Care Visit- Brief NoteName: Cristina JeffreyMRN: [id number]: June 25, 2017Notes: Provided SC through in-room prayer for sleeping pt. Chaplain Signature: Consuelo Rothman contact the Spiritual Care Department:Please call [phone] or Page the On-Call Pump Rebuilder at pager [phone] you for the opportunity to be of service.This is an electronically created document.IF PRINTED, PLEASE DO NOT REMOVE FROM THE CHART OR MODIFY PRINTED COPY. Normal [facility] Basic Panelon 06-25-2017 Creatinine 0.68 mg/dL Normal 0.67-1.17 [facility] Comment on above: Performed By: #### C BCD1 ####[place] [address] Glucose mass conc 129 mg/dL High 70-99 [facility] Comment on above: Performed By: #### C BCD1 ####[place] [address] Urea nitrogen 18 mg/dL Normal 7-18 [facility] Comment on above: Performed By: #### C BCD1 ####[facility] [place], [place] [address] Anion gap 6 mmol/L Low 8-16 [facility] Comment on above: Performed By: #### C BCD1 ####[facility] [place], [place] [address] Calcium 6.9 mg/dL Low 8.5-10.1 [facility] Comment on above: Performed By: #### C BCD1 ####[facility] [place], [place] [address] CO2 28 mmol/L Normal 21-32 [facility] Comment on above: Performed By: #### C BCD1 ####[facility] [place] [address] Chloride 112 mmol/L High 98-107 [facility] Comment on above: Performed By: #### C BCD1 ####[facility] [place] [address] Potassium molar conc 3.9 mmol/L Normal 3.5-5.1 [facility] Comment on above: Performed By: #### C BCD1 ####[facility] [place] [address] Sodium 142 mmol/L Normal 136-145 [facility] Comment on above: Performed By: #### C BCD1 ####[place] [address] CHEST 1 VIEWon 06-25-2017 CHEST 1 VIEW Performed at [facility] APPROVED BY: Guillermo Ulloa MD PORTABLE AP [...] at time of dictation as requested. Normal [facility] CONSULTon 06-25-2017 CONSULT HNO ID: [id number] thor: Neema Lagunaservice: ElectrophysiologyAuthor Type: PhysicianType: ConsultsFiled: [...] by mouth twice daily withmeals. Disp: Rfl:Vit A,C,I-Fazh-Rfrtly (PRESERVISION AREDS) 14,320-226-200 eilr-th-rcsxryu Take 1 capsule by mouth twice daily. [...] BP Temp Temp src Pulse Resp SpO2 Esfjxv13/04/18 1100 135/75 36.9 ?C (98.4 ?F) - [...] June 25, 2017 : 11:33 AM PAGER: [phone] Normal [facility] CONSULT PROGon 06-25-2017 Protein mass conc HNO ID: [id number] thor: Herman Melendez: GastroenterologyAuthor Type: PhysicianType: Consult [...] this patient.Herman Lunsford MD MPH FRCPC Normal [facility] Cult Bloodon 06-25-2017 Cult Blood Test performed at [facility] No growth Normal [facility] Comment on above: Performed By: #### R BCPS ####[place] [address] Performed By: #### T &S ####[place] [address] Cult Deviceon 06-25-2017 Cult Device Test performed at [facility] No Growth Normal [facility] Comment on above: Performed By: #### T &S ####[place] [address] Cult and Smr Respiratoryon 0 06-25-2017 Cult and Smr Respiratory Test performed at [facility] Normal oropharyngeal robin present. Rare WBC Rare yeast Normal [facility] Comment on above: Performed By: #### T &S ####[place] [address] Hemogramon 06-25-2017 Erythrocyte distribution width Auto Ratio (RBC) 16.9 % High 11.6-14.4 [facility] Comment on above: Performed By: #### F FPXS ####[place] [address] Erythrocytes (RBC) 3.20 mil/cmm Low 4.63-6.08 [facility] Comment on above: Performed By: #### F FPXS ####[place] [address] Hematocrit (HCT) 27.8 % Low 40.1-51.0 [facility] Comment on above: Performed By: #### F FPXS ####[address], [place] [address] Hemoglobin mass conc (Bld) 9.5 g/dL Low 13.7-17.5 [facility] Comment on above: Performed By: #### F FPXS ####[place] [address] MCH 29.7 pg Normal 25.7-32.2 [facility] Comment on above: Performed By: #### F FPXS ####[place] [address] MCHC mass conc (RBC) 34.2 % Normal 32.3-36.5 [facility] Comment on above: Performed By: #### F FPXS ####[place] [address] MCV 86.9 fL Normal 83.2-95.6 [facility] Comment on above: Performed By: #### F FPXS ####[place] [address] Nucleated erythrocytes 0.07 thou/cmm High 0.00-0.01 [facility] Comment on above: Performed By: #### F FPXS ####[place] [address] Nucleated RBC % 0.4 % High 0.0-0.2 [facility] Comment on above: Performed By: #### F FPXS ####[place] [address] Platelet mean volume (PMV) 9.8 fL Normal 8.7-12.0 [facility] Comment on above: Performed By: #### F FPXS ####[place] [address] Platelets 140 thou/cmm Low 141-365 [facility] Comment on above: Performed By: #### F FPXS ####[place] [address] RDW SD 49.9 fl High 36.1-45.8 [facility] Comment on above: Performed By: #### F FPXS ####[address] [place] [address] WBC (Leukocytes) 18.57 thou/cmm High 4.23-9.07 [facility] Comment on above: Performed By: #### F FPXS ####[place] [address] Hgbon 06-25-2017 Hemoglobin mass conc (Bld) 9.0 g/dL Low 13.7-17.5 [facility] Comment on above: Performed By: #### F FPXS ####[place] [address] Hemoglobin mass conc (Bld) 8.4 g/dL Low 13.7-17.5 [facility] Comment on above: Performed By: #### C BCD1 ####[place] [address] MDRD GFRon 06-25-2017 eGFR (non-black) mL/min/{1.73_m2} Normal >60mL/m in/ 1.73m2 [facility] Comment on above: Result Comment: If t he patient is , multiply the result by 1.210. 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 [facility] Protein mass conc HNO ID: [id number] Author: Yann BarnettRn) Oralia, RN Service: Nursing Author Type: Registered Nurse Type: Nursing Progress Note Filed: 06/25/2017 3:40 PM Note Text: # [address] floyd in r UA with ultrasound good blood return dressing applied [facility] Protein mass conc HNO ID: [id number] Author: Yann Spear) Oralia, RN Service: Nursing Author Type: Registered Nurse Type: Nursing Progress Note Filed: 06/25/2017 12:05 PM Note Text: Attempt IV start x 3 by 2 RNS without success special opps paged [facility] Protein mass conc HNO ID: [id number] thor: Yann BarnettRn) KELLY Bartonervice: NursingAuthor Type: Registered NurseType: Nursing Progress NoteFiled: 06/25/2017 7:14 AMNote Text: Nursing Progress: Topic: RESTRAINT NON-VIOLENTPATIENT NAME: Cristina JeffreyMRN: [id number] LOCATION: [place] [address] [address]*The patient demonstrates Confusion, Attempting to Remove Medical [...] June 25, 2017TIME: 7:14 Zay Barton RN [facility] PROCEDUREon 06-25-2017 Protein mass conc HNO ID: [id number] thor: Aquiles Harper) [facility] HospitallisetteService: Critical CareAuthor Type: PhysicianType: ProceduresFiled: 06/26/2017 [...] the entireduration of the procedureAquiles Osborne MD [facility] PROGRESSon 06-25-2017 Protein mass conc HNO ID: [id number] thor: Kalyan Sahu PereraService: Critical CareAuthor Type: ResidentType: Progress NotesFiled: 06/25/2017 2:43 PMNote Text: At testation signed by Aquiles Osborne at 06/25/2017 5:14 [facility] STAFF PHYSICIAN NOTE OF PERSONAL INVOLVEMENT IN CAREI have reviewed the progress note obtained and documented by the resident and Ipersonally participated in the rivera components. I have discussed the case andmanagement of the patient's care. Please refer to my note from 06/25/2017 for myassessment and plan.SIGNATURE: Aquiles Osborne, [facility] --MICU - PROGRESS NOTESERVICE DATE: 06/25/2017SERVICE TIME: [...] June 25, 2017 : 9:02 AM Normal [facility] Protein mass conc HNO ID: [id number] thor: Aquiles Harper) BhattacharyyaService: Critical CareAuthor Type: PhysicianType: Progress NotesFiled: 06/25/2017 10:53 AMNote Text:[facility] STAFF PHYSICIAN NOTE OF PERSONAL INVOLVEMENT IN CAREI have reviewed the progress note obtained and documented by the residentand I personally participated in the rivera components. I have discussed thecase and management of the patient's care. The following comments reviseor confirm relevant rivera components of the note.IMPRESSION:72 year old male with PMH of HTN, COPD, HLD, ?ETOH use [facility]. He was transferred to [facility] with:??Hemorrhagic shock AND?Acute blood loss anemia [...] SERVICE: 06/25/2017TIME of SERVICE: 8:05 AM Normal [facility] Protein mass conc HNO ID: [id number] thor: Risa (Res) TremellingService: General SurgeryAuthor Type: [...] 06/25/17 0659 06/25/17 0700 - 06/26/17 0659Shift [id number] 7961-0391 3822-4517 24 Hour Total 2136-1933 3811-31077789-8381 24 Hour TotalINTAKE IV 1583.4 595.6 655 2834 D5 0.45%NS w/20KCL 495 644 811 1618 IVPB 250 250 NS 0.9% 500 500 [...] Total 1583.4 1227.6 992 3803OUTPUT Urine 510 683 712 2255 Tube Output ( Indwelling Urinary Catheter 06/21/171499 AssessmentFoley 16 Fr) 510 791 364 6480 Tubes 200 225 425 Drain/Tube Output (Drain/Tube 06/25/17 Buttocks) 100 100 Output (GI Feed/Drain 06/21/171999 Oral Gastric Midline 16 Fr) 867847 325 # of BMs Stool Incontinence 1 [...] H Pylori and biopsies from Rajwinder King MDGeneashtabula county medical center Surgery Chief ResidentThe [facility] 2017 7:29 [facility] #: Pager: [phone] Normal [facility] Phosphorus Bloodon 8 Phosphate 1.1 mg/dL Critically low 2.5-4.9 [facility] Comment on above: Performed By: #### F FPXS ####[place] [address] RBC Productson 06-25-2017 Xmatch Unit 1 see below Normal [facility] Comment on above: Result Comment: Comp atible Performed By: #### C BCD1 ####[place] [address] Type and Screenon 06-25-2017 ABO group A Normal [facility] Comment on above: Performed By: #### C BCD1 ####[place] [address] Antibody Screen Negative Normal [facility] Comment on above: Performed By: #### C BCD1 ####[place] [address] Comment See Below Normal [facility] Comment on above: Result Comment: Scre en &/or Xmatch expires in 3 days at 12 midnight. Redrawpatient at that time. Performed By: #### C BCD1 ####[place] [address] RH Type Positive Normal [facility] Comment on above: Performed By: #### C BCD1 ####[place] [address] ALLIED HEALTHon 2017 ALLIED HEALTH HNO ID: [id number] thor: Tea (Pump Rebuilder) Frederick Bargerice: (none)Author Type: ChaplainType: Allied HealthFiled: 2017 3:37 PMNote Text: SPIRITUALCARESpiritual Care Visit- Brief NoteName: Cristina WojciechMRN: [id number]: June 24, 2017Notes: As a continuity writer made a visit while doing rounds. PT's nephew andnephew's were in the room. Family indicated that PT is sedated.PT's family asked if hospital cut PT's king. Family indicated that GIbleed was stopped. Family did not request prayer. Signature: Consuelo Colón contact the Spiritual Care Department:Please call [phone] or Page the On-Call Pump Rebuilder at pager [phone] you for the opportunity to be of service.This is an electronically created document.IF PRINTED, PLEASE DO NOT REMOVE FROM THE CHART OR MODIFY PRINTED COPY. Normal [facility] ALLIED HEALTH HNO ID: [id number] thor: Sr Freed (Tatum Salcedoervice: Spiritual CareAuthor Type: ChaplainType: Allied HealthFiled: 2017 1:47 AMNote Text:SPIRITUAL CARE PROGRESS NOTESERVICE DATE: 2017SERVICE TIME: 06:24 PMPt was ubsent. However, I placed a compassionate note on the small tablefor the pt/family/friends.To contact the Spiritual Care Department: Please call [phone].SIGNATURE: Chaplain Wale PATIENT NAME: Cristina MooreTE: 2017 : 1:45 AM PAGER/CONTACT #: [phone] Normal [facility] Basic Panelon 2017 Creatinine 0.56 mg/dL Low 0.67-1.17 [facility] Comment on above: Performed By: #### L AC ####[facility] [place] [address] Glucose mass conc 166 mg/dL High 70-99 [facility] Comment on above: Performed By: #### L AC ####[facility] [place] [address] Anion gap 9 mmol/L Normal 8-16 [facility] Comment on above: Performed By: #### L AC ####[facility] [place], [place] [address] CO2 27 mmol/L Normal 21-32 [facility] Comment on above: Performed By: #### L AC ####[facility] [place], [place] [address] Urea nitrogen 21 mg/dL High 7-18 [facility] Comment on above: Performed By: #### L AC ####[facility] [place], [place] [address] Calcium 7.0 mg/dL Low 8.5-10.1 [facility] Comment on above: Performed By: #### L AC ####[facility] [place], [place] [address] Chloride 110 mmol/L High 98-107 [facility] Comment on above: Performed By: #### L AC ####[address] [address] Potassium molar conc 3.8 mmol/L Normal 3.5-5.1 [facility] Comment on above: Performed By: #### L AC ####[address] [address] Sodium 142 mmol/L Normal 136-145 [facility] Comment on above: Performed By: #### L AC ####[address] [address] Blood Gas Arterialon 018 Base Excess 1.6 mEq/L Normal -2.5 to 2.5 [facility] Comment on above: Performed By: #### L AC ####[address] [address] Bicarbonate (HCO3) 25.0 mmol/L Normal 22.0-26.0 [facility] Comment on above: Performed By: #### L AC ####[address] [address] Body temperature 36.2 Normal [facility] Comment on above: Performed By: #### L AC ####[address] [address] CO2 32.7 mm Hg Low 36.0-46.0 [facility] Comment on above: Performed By: #### L AC ####[facility] [place], [place] [address] O2% Sat Arterial 98.8 % High 95.0-98.0 [facility] Comment on above: Performed By: #### L AC ####[facility] [place], [place] [address] pH Arterial 7.499 High 7.350-7.45 0 [facility] Comment on above: Performed By: #### L AC ####[facility] [place], [place] [address] PO2 Arterial 140.6 mm Hg High 85.0-96.0 [facility] Comment on above: Performed By: #### L AC ####[facility] [place] [address] FIO2 30.0 % Normal [facility] Comment on above: Performed By: #### L AC ####[place] [address] CHEST 1 VIEWon 2017 CHEST 1 VIEW Performed at [facility] APPROVED BY: Thanh Trotter MD EXAMINATION: CHEST [...] as compared to the previous exam. Normal [facility] CONSULTon 2017 CONSULT HNO ID: [id number] thor: Herman Melendez: GastroenterologyAuthor Type: PhysicianType: ConsultsFiled: 06/25/2017 3:32 PMNote Text:HPI:Cristina Jeffrey is a 72 year old male who presents for UGIB secondary tomultiple GUsHe has PMH of HTN, COPD, HLD, ?ETOH use presented with melena to [facility]. He was transferred to [facility] MICU withHemorrhagic shock. Course outlined below.Also c/b [...] (thou/cmm)Date Value2017 135 CreatinineDate Value Ref Range Waovob5306/24/2017 0.56 (L) 0.67 - 1.17 mg/dL Final ASTDate Value Ref Range Uybymk5106/21/2017 34 9 - 37 U/L Final ALTDate Value Ref Range Jbeeqj8506/21/2017 44 12 - 78 U/L Final Blood [...] this patient.Herman Lunsford MD MPH FRCPC Normal [facility] Hemogramon 2017 Erythrocyte distribution width Auto Ratio (RBC) 15.6 % High 11.6-14.4 [facility] Comment on above: Performed By: #### L AC ####[facility] [place], [place] [address] Erythrocytes (RBC) 2.29 mil/cmm Low 4.63-6.08 [facility] Comment on above: Performed By: #### L AC ####[facility] [place], [place] [address] Hematocrit (HCT) 20.6 % Low 40.1-51.0 [facility] Comment on above: Performed By: #### L AC ####[place] [address] Hemoglobin mass conc (Bld) 7.1 g/dL Low 13.7-17.5 [facility] Comment on above: Performed By: #### L AC ####[place] [address] MCH 31.0 pg Normal 25.7-32.2 [facility] Comment on above: Performed By: #### L AC ####[place] [address] MCHC mass conc (RBC) 34.5 % Normal 32.3-36.5 [facility] Comment on above: Performed By: #### L AC ####[place] [address] MCV 90.0 fL Normal 83.2-95.6 [facility] Comment on above: Performed By: #### L AC ####[place] [address] Nucleated erythrocytes 0.05 thou/cmm High 0.00-0.01 [facility] Comment on above: Performed By: #### L AC ####[place] [address] Nucleated RBC % 0.3 % High 0.0-0.2 [facility] Comment on above: Performed By: #### L AC ####[place] [address] Platelet mean volume (PMV) 9.9 fL Normal 8.7-12.0 [facility] Comment on above: Performed By: #### L AC ####[place] [address] Platelets 135 thou/cmm Low 141-365 [facility] Comment on above: Performed By: #### L AC ####[place] [address] RDW SD 49.6 fl High 36.1-45.8 [facility] Comment on above: Performed By: #### L AC ####[place] [address] WBC (Leukocytes) 15.91 thou/cmm High 4.23-9.07 [facility] Comment on above: Performed By: #### L AC ####[place] [id number] Hgbon 2017 Hemoglobin mass conc (Bld) 6.6 g/dL Critically low 13.7-17.5 [facility] Comment on above: Performed By: #### C BCD1 ####[place] [address] Hemoglobin mass conc (Bld) 7.0 g/dL Critically low 13.7-17.5 [facility] Comment on above: Performed By: #### C BCD1 ####[place] [address] Hemoglobin mass conc (Bld) 7.2 g/dL Low 13.7-17.5 [facility] Comment on above: Performed By: #### L AC ####[place] [address] MDRD GFRon 2017 eGFR (non-black) mL/min/{1.73_m2} Normal >60mL/m in/ 1.73m2 [facility] Comment on above: Result Comment: If t he patient is , multiply the result by 1.210. Performed By: #### L AC ####[place] [address] NURSING PROGon 2017 Protein mass conc HNO ID: [id number] thor: Shantel (Rn) KELLY Corderoervice: (none)Author Type: Registered NurseType: Nursing Progress NoteFiled: 2017 7:53 PMNote Text: Nursing Progress: Topic: RESTRAINT NON-VIOLENTPATIENT NAME: Cristina JeffreyMRN: [id number] LOCATION: [place] [address] [address]*The patient demonstrates Confusion, Attempting to Remove Medical [...] 24, 2017TIME: 7:52 Tessy Cordero RN Normal [facility] Protein mass conc HNO ID: [id number] Author: Yann Spear) GREGORY Barton Service: Nursing Author Type: Registered Nurse Type: Nursing Progress Note Filed: 2017 3:35 PM Note Text: Dr lozano notifed of pt bp diprivan rate decreased to assist with bp no other orders rec'd Normal [facility] Protein mass conc HNO ID: [id number] thor: Yann Barton, KELLYervice: NursingAuthor Type: Registered NurseType: Nursing Progress NoteFiled: 2017 10:05 AMNote Text: Nursing Progress: Topic: RESTRAINT NON-VIOLENTPATIENT NAME: Cristina JeffreyMRN: [id number] LOCATION: [place] [address]/[place] [address]*The patient demonstrates Confusion, Inability to Retain InformationRegarding [...] 24, 2017TIME: 10:05 Zay Barton RN Normal [facility] Protein mass conc HNO ID: [id number] thor: KELLY Javier Rnervice: NursingFelipahospenser Type: Registered NurseType: Nursing Progress NoteFiled: 2017 5:49 AMNote Text: Nursing Progress NotePatient Name: Cristina LeeN: [id number] Location: [place] [address]*____ Event(s) / Intervention Note:The patient has a Hgb 7.1 now, physician notes indicate keep Hgb>8. Phos0.9.The time of the event occurred at: 2017 0545.The following intervention(s) were initiated: Dr. Bach notified.Awaiting new orders for interventions, nothing further noted. Willcontinue to observe and check with patient..This note was completed by: Natacha Ding RN [facility] Protein mass conc HNO ID: [id number] thor: KELLY Javier Rnervice: NursingAuthospenser Type: Registered NurseType: Nursing Progress NoteFiled: 2017 5:53 AMNote Text: Nursing Progress NotePatient Name: Cristina LeeN: [id number] Location: [place] [address]*____ Event(s) / Intervention Note:The patient has a Hgb 7.2 it was previously 8.8.The time of the event occurred at: @ 2329.The following intervention(s) were initiated: Dr. Bach notified.Awaiting new orders: nothing further noted. Will continue to observe andcheck with patient..This note was completed by: Natacha Ding RN [facility] Protein mass conc HNO ID: [id number] thor: Natacha (Rn) KELLY Dingervice: NursingAuthor Type: Registered NurseType: Nursing Progress NoteFiled: 06/23/2017 10:45 PMNote Text: Nursing Progress: Topic: RESTRAINT NON-VIOLENTPATIENT NAME: Cristina JeffreyMRN: [id number] LOCATION: [place] [address]/[place] [address]*The patient demonstrates Confusion, Inability to Retain InformationRegarding [...] June 23, 2017TIME: 10:41 Mecca Ding RN [facility] PROGRESSon 2017 Protein mass conc HNO ID: [id number] thor: Hollis Manninge: Critical CareAuthor Type: PhysicianType: [...] exam:101/67, 140-170s, 37.9, 29, 99% on 30% SaJ5Xcyn: PRVC 500/ 12/ 30%/ 5On sedation but [...] services: 42 minutes.?SIGNATURE: MAICO Garcia INSTITUTEPAGER:1030? Normal [facility] Protein mass conc HNO ID: [id number] thor: Kian Persaudervice: General SurgeryAuthor Type: PhysicianType: [...] 06/24/17 0659 06/24/17 07 - 06/25/17 0659Shift 4675-7996 4170-4259 5562-7227 24 Hour Total 3171-1415 4174-47010121-3373 24 Hour TotalINTAKE IV 2913 1178.2 1031.9 5123.1 420.3 420.3 D5 0.45%NS w/20KCL 815 0861 949 7048 137 137 IVPB 250 250 NS 0.9% 1999 1999 Diltiazem Volume 19 33.5 116.3 168.8 20.6 20.6 Propofol IV 79 117.7 90.6 287.3 12.7 12.7 Shift Total 2913 1178.2 1031.9 5123.1 420.3 420.3OUTPUT Urine 865 348 666 5312 95 95 Tube Output ( Indwelling Urinary Catheter 06/21/17 1500 AssessmentFoley 16 Fr) 865 548 598 1504 95 95 Tubes 0 300 500 800 Output (GI Feed/Drain 06/21/171999 Oral Gastric Midline 16 Fr) 0 514764 800 Shift Total 865 1100 1110 3075 95 95Weight (kg) 99.8 99.8 97.5 97.5 97.5 97.5 97.5 97.5MEDICATIONSCurrent Facility-Administered Medications:sodium phosphate 30 mmol in D5W 250 mL 30 mmol INTRAVENOUS ONCEdilTIAZem 100 mg in D5W 100 mL ADD-[place] (CARDIZEM) 5 mg/hr INTRAVENOUSCONTINUOUSalbutero l 2.5 mg/0.5 [...] King MDGeneral Surgery Chief ResidentMar 2017 9:22 [facility] #: Pager: [phone] NoteI evaluated the patient and personally participated in the rivera components.I agree with the resident's findings and plan as documented and havediscussed the case and management of the patient's care with the resident.Kian Lobo, [facility]ITALepartment of General SurgerySection of Trauma, Surgery Critical Care, and Acute Care SurgeryDelayed entry Normal [facility] Protein mass conc HNO ID: [id number] thor: Aquiles Harper) BhattacharyyaService: Critical CareAuthor Type: PhysicianType: Progress NotesFiled: 2017 4:47 PMNote Text:[facility] STAFF PHYSICIAN NOTE OF PERSONAL INVOLVEMENT IN CAREI have reviewed the progress note obtained and documented by the residentand I personally participated in the rivera components. I have discussed thecase and management of the patient's care. The following comments reviseor confirm relevant rivera components of the note.IMPRESSION:72 year old male with PMH of HTN, COPD, HLD, ?ETOH use presented [facility]melena to [facility]. He was transferred to [facility] MICU with:??Hemorrhagic shock AND?Acute blood loss anemia [...] SERVICE: 2017TIME of SERVICE: 8:31 AM Normal [facility] Protein mass conc HNO ID: [id number] thor: Douglas (Adelina) Dirvice: Critical CareAuthor Type: ResidentType: Progress NotesFiled: 2017 11:06 AMNote Text: At testation signed by Aquiles Osborne at 2017 5:03 [facility] STAFF PHYSICIAN NOTE OF PERSONAL INVOLVEMENT IN CAREI have reviewed the progress note obtained and documented by the resident and Ipersonally participated in the rivera components. I have discussed the case andmanagement of the patient's care. Please refer to my note from 2017 for myassessment and plan.SIGNATURE: Aquiles Osborne, [facility] --CRITICAL CARE CONSULT NOTESERVICE DATE: 2017SERVICE TIME: [...] ONCEdilTIAZem 100 mg in D5W 100 mL ADD-[place] (CARDIZEM) 5 mg/hr INTRAVENOUSCONTINUOUSalbutero l 2.5 mg/0.5 [...] Cristina JeffreyDATE: 2017 : 8:10 AM Normal [facility] Protein mass conc HNO ID: [id number] thor: Hollis Manninge: Critical CareAuthor Type: PhysicianType: Progress NotesFiled: 06/23/2017 11:07 PMNote Text:Notes and meds reviewed. Full ROS with RN and REAL TIME TRADER. Not much ETTsecretions. Off pressors now. On [...] services: 40 minutes.SIGNATURE: MAICO Garcia INSTITUTEPAGER:1030 Normal [facility] Phosphorus Bloodon 8 Phosphate 0.9 mg/dL Critically low 2.5-4.9 [facility] Comment on above: Performed By: #### C BCD1 ####[facility] [place], [place] [address] THERAPY NTon 2017 THERAPY NT HNO ID: [id number] thor: Terri (General Maintenance Mechanic) YANNI RogersService: Respiratory TherapyAuthor Type: Registered Resp TherapistType: Therapy (PT/OT/Speech/Resp)Filed: 2017 3:55 AMNote Text:I attempted to do a SBT on patient while RN in room. I placed pt on CPAP5, PS 5, 30% FIO2. His RR immediately jumped into the upper 40s and 50s,we attempted to calm him down however it didn't work. Placed back onprevious settings, RN aware. Normal [facility] ABDOMEN 1 VIEWon 06-23-2017 ABDOMEN 1 VIEW Performed at [facility] APPROVED BY: Thanh Trotter MD EXAM TITLE: [...] is in the fundus of stomach. Normal [facility] Basic Panelon 06-23-2017 Creatinine 0.76 mg/dL Normal 0.67-1.17 [facility] Comment on above: Performed By: #### L AC ####[facility] [place], [place] [address] Glucose mass conc 123 mg/dL High 70-99 [facility] Comment on above: Performed By: #### L AC ####[facility] [place], [place] [address] Urea nitrogen 36 mg/dL High 7-18 [facility] Comment on above: Performed By: #### L AC ####[facility] [place], [place] [address] Anion gap 6 mmol/L Low 8-16 [facility] Comment on above: Performed By: #### L AC ####[facility] [place], [place] [address] Calcium 7.6 mg/dL Low 8.5-10.1 [facility] Comment on above: Performed By: #### L AC ####[facility] [place], [place] [address] CO2 32 mmol/L Normal 21-32 [facility] Comment on above: Performed By: #### L AC ####[facility] [place] [address] Chloride 106 mmol/L Normal 98-107 [facility] Comment on above: Performed By: #### L AC ####[address] [address] Potassium molar conc 3.9 mmol/L Normal 3.5-5.1 [facility] Comment on above: Performed By: #### L AC ####[place] [address] Sodium 140 mmol/L Normal 136-145 [facility] Comment on above: Performed By: #### L AC ####[address] [address] CASE MGT INIT ASSCASIEon 2017 CASE MGT INIT MICHAEL HNO ID: [id number] thor: Toshia (Rn) KELLY Dumaservice: Care ManagementAuthor Type: Registered NurseType: Care Mgt Initial AssessmentFiled: 06/23/2017 1:55 PMNote Text:CARE MANAGEMENT: ASSESSMENT AND DISCHARGE PLANSERVICE DATE: 06/23/2017SERVICE TIME: 1:46 PMPRIMARY CARE PHYSICIAN:ENRIQUE Perez [place]: [phone] STATUS: InpatientMEDICAL:Patient/Repr esentative Stated Goals:To return home [...] Admission: nebulizerHas the Patient Been in a Fdc Facility in the Past 30 days? NoSOCIAL:Living Arrangement: HomeLives With: AloneFinancial Resources: RetiredPrimary Contact: Extended Emergency Contact InformationPrimary Emergency Contact: [place] [address] [facility] Vhhtrukl: SisterSupportive: YesOther Important Patient Contacts: NoneCaregiver Assessment:Caregiver [...] - 0I feel financially burdened by my bti-sb-ggkdqi expenses for myprescription medication: Disagree completely - [...] 23, 2017 : 1:46 PM PAGER/CONTACT #: [phone] Normal [facility] CNCRITCRon 06-23-2017 CNCRITCR HNO ID: [id number] thor: Erick (Rn) KELLY Lopezervice: NursingAuthor Type: Registered NurseType: Critical Care TransportFiled: 06/23/2017 5:57 PMNote Text:Pt transferred to via bed, along with tele monitor chart o2, chart, andrepiratory therapy. Two transporters with. Normal [facility] EMBOLIZATION HEMORRHAGE 3724 4on 06-23-2017 EMBOLIZATION HEMORRHAGE 01900 Performed at [facility] APPROVED BY: Dre Woodward MD EXAM TITLE: [...] The micropuncture needle was withdrawn. A 4 [place] dilator was then inserted over the guidewire. The introducer and guidewire were removed. A Flattrson guidewire is then introduced and advanced into the distal abdominal aorta. The 4 [place] dilator was withdrawn. A 5 [place] sheath was then inserted over the guidewire. The introducer and guidewire were removed. A pressure bag was attached to the side port of the sheath in order to maintain patency. A 4 [place] glide C2 catheter was then introduced and advanced into the proximal abdominal aorta. Multiple attempts were made to selectively catheterize the celiac axis. Although the origin could be engaged a catheter and guidewire were unable to be advanced into the common hepatic artery. The 4 [place] C2 catheter was exchanged for a 5 [place] Sos Omni select catheter. The superior mesenteric [...] Omni select catheter was withdrawn. The 5 [place] Citizen sheath was then exchanged for a 6 [place] Citizen Ansell guiding sheath. The tip of the catheter was placed near the origin of the celiac axis. A long 5 [place] C2 catheter was then introduced. The celiac [...] were then coaxially introduced through the 5 [place] C2 catheter. Numerous attempts were made to [...] with administration of agent, ends when continuous bbsx-kp-hyhe time ends): 153 minutes Patient monitoring: I [...] 270Number of Images: 560 Antibiotics: None Normal [facility] HISTORY PHYSICALon 8 HISTORY PHYSICAL HNO ID: [id number] thor: Dre Trejoervice: Interventional RadiologyAuthor Type: PhysicianType: [...] 23, 2017 : 6:37 PM PAGER: Normal [facility] Hemogramon 06-23-2017 Erythrocyte distribution width Auto Ratio (RBC) 16.5 % High 11.6-14.4 [facility] Comment on above: Performed By: #### P PHRS ####[place] [address] Erythrocytes (RBC) 3.43 mil/cmm Low 4.63-6.08 [facility] Comment on above: Performed By: #### P PHRS ####[place] [address] Hematocrit (HCT) 31.1 % Low 40.1-51.0 [facility] Comment on above: Performed By: #### P PHRS ####[place] [address] Hemoglobin mass conc (Bld) 10.4 g/dL Low 13.7-17.5 [facility] Comment on above: Performed By: #### P PHRS ####[place] [address] MCH 30.3 pg Normal 25.7-32.2 [facility] Comment on above: Performed By: #### P PHRS ####[place] [address] MCHC mass conc (RBC) 33.4 % Normal 32.3-36.5 [facility] Comment on above: Performed By: #### P PHRS ####[place] [address] MCV 90.7 fL Normal 83.2-95.6 [facility] Comment on above: Performed By: #### P PHRS ####[place] [address] Nucleated erythrocytes 0.05 thou/cmm High 0.00-0.01 [facility] Comment on above: Performed By: #### P PHRS ####[place] [address] Nucleated RBC % 0.3 % High 0.0-0.2 [facility] Comment on above: Performed By: #### P PHRS ####[place] [address] Platelet mean volume (PMV) 9.6 fL Normal 8.7-12.0 [facility] Comment on above: Performed By: #### P PHRS ####[place] [address] Platelets 138 thou/cmm Low 141-365 [facility] Comment on above: Performed By: #### P PHRS ####[place] [address] RDW SD 54.2 fl High 36.1-45.8 [facility] Comment on above: Performed By: #### P PHRS ####[place] [address] WBC (Leukocytes) 15.84 thou/cmm High 4.23-9.07 [facility] Comment on above: Performed By: #### P PHRS ####[place] [address] Hgbon 06-23-2017 Hemoglobin mass conc (Bld) 8.8 g/dL Low 13.7-17.5 [facility] Comment on above: Performed By: #### L AC ####[place] [address] MDRD GFRon 06-23-2017 eGFR (non-black) mL/min/{1.73_m2} Normal >60mL/m in/ 1.73m2 [facility] Comment on above: Result Comment: If t he patient is , multiply the result by 1.210. Performed By: #### L AC ####[place] [address] NURSING PROGon 06-23-2017 Protein mass conc HNO ID: [id number] thor: Natacha (Rn) KELLY Dingervice: NursingAuthor Type: Registered NurseType: Nursing Progress NoteFiled: 06/23/2017 7:34 PMNote Text: Nursing Progress NotePatient Name: Cristina JeffreyMRN: [id number] Location: [place] [address]/[place] [address]*____ Transfer Note:Patient transferred into room/unit 4815 from IR in stable condition.Transferred by transport team, RT and IR nurse. No futher actions taken atthis time. Will continue to monitor and check with patient.This note was completed by: Natacha Ding RN Normal [facility] Protein mass conc HNO ID: [id number] thor: Erick BarnettRn) KELLY Lopezervice: NursingAuthor Type: [...] medicated at 1005. Procedure began once again [id number]. Respiratory notified that stat ekg ordered, and obtained after egdprocedure. Normal [facility] Protein mass conc HNO ID: [id number] thor: Erick (Rn) John RNService: NursingAuthor Type: Registered NurseType: Nursing Progress NoteFiled: 06/23/2017 7:41 AMNote Text: Nursing Progress: Topic: RESTRAINT NON-VIOLENTPATIENT NAME: Cristina LeeN: [id number] LOCATION: [place] [address]*The patient demonstrates Confusion as evidenced by [...] June 23, 2017TIME: 7:40 Elena Lopez RN [facility] NUTRITIONon 06-23-2017 NUTRITION HNO ID: [id number] thor: OUMOU Davis Rdervice: Nutrition TherapyAuthor Type: [...] history of alcohol abuse who presented to [facility] with[facility]yspnea who received a breathing treatment and [...] Wt06/23/17 : 99.8 kg (220 lb 0.3 oz)[place] Body Weight: 75kgResting Metabolic Rate: 1763Estimated kilocalorie needs: 1800 kilocalories determined by 25 kcal/kgEstimated protein needs: 90 grams determined by 1.2gms/kg Hawley weightEstimated fluid needs: 1800 milliliters based on [...] lb 0.3 oz) SpO2 100% BMI 31.57 kg/i9[facility] 06/23/1802GLUC -- 123* < > 170*BUN [...] Medications:dilTIAZem 100 mg in D5W 100 mL ADD-[place] (CARDIZEM) 5 mg/hr INTRAVENOUSCONTINUOUSalbutero l 2.5 mg/0.5 [...] 06/22/17 0659 06/22/17 0700 - 06/23/17 0659 577655 - 06/24/17 0659 Intake (ml) 6306.2 1954.1 641 Output (ml) 5280 3895 445 Net (ml) 1026.2 -1940.9 196MNT Billing Type: Initial Assess/15 min 4 unitsSIGNATURE: Nishi Matias, RD PATIENT NAME: Cristina JeffreyDATE: June 23, 2017 : 2:28 PM PAGER: [phone] Normal [facility] OPERATIVE NOon 06-23-2017 OPERATIVE NO HNO ID: [id number] thor: Sagar Cornell MirService: GastroenterologyAuthor Type: PhysicianType: Operative ReportFiled: 2017 11:05 PMNote Text:[facility] - Operative ReportSURGEON: ENRIQUE AlcarazATIENT NAME: TESSIE JEFFREYTMRN: [id number] CSN: [id number] OF SURGERY: 06/23/2017DATE OF : 1945 SEX/AGE: M/71PATIENT TYPE: I HOSP SVC: PULM LOCATION: [id number] OF SURGERY: 06/23/2017SURGEON: ENRIQUE AlcarazROCEDURE PERFORMED: Second-look [...] Dominguez MDGastroenterologyGM:modlD: 06/23/2017 11:19:40T: 06/23/2017 20:39:22Job #: [id number]:Chitra Del Valle MD [facility] PROGRESSon 06-23-2017 Protein mass conc HNO ID: [id number] thor: Aquiles Harper) IndiaService: Critical CareAuthor Type: PhysicianType: Progress NotesFiled: 06/23/2017 5:14 PMNote Text:[facility] STAFF PHYSICIAN NOTE OF PERSONAL INVOLVEMENT IN CAREI have reviewed the progress note obtained and documented by the residentand I personally participated in the rivera components. I have discussed thecase and management of the patient's care. The following comments reviseor confirm relevant rivera components of the note.IMPRESSION:71 year old male with PMH of HTN, COPD, HLD, ?ETOH use presented withmelena to [facility]. He was transferred to [facility] MICU with:?Hemorrhagic shock AND Acute blood loss [...] SERVICE: 06/23/2017TIME of SERVICE: 12:08 PM Normal [facility] Protein mass conc HNO ID: [id number] thor: Sagar Valenciaervice: GastroenterologyAuthor Type: PhysicianType: Progress NotesFiled: 06/23/2017 11:21 AMNote Text:BRIEF OPERATIVE / PROCEDURE NOTELOG ID: [id number]/PROCEDURE DATE: 06/23/2017SURGEON(S)/PROCEDURAL IST(S) AND SPOOL SORTER(S): Sagar Dominguez - PrimaryendoscopistINDICATION: Recurrence of UGI [...] to maintain Hgb > 8 gm D #[id number]: Sagar Dominguez MD PATIENT NAME: Cristina JeffreyDATE: 06/23/2017 : normal Normal [facility] Protein mass conc HNO ID: [id number] thor: Douglas (Adelina) Dirvice: Critical CareAuthor Type: ResidentType: Progress NotesFiled: 06/23/2017 2:42 PMNote Text: At testation signed by Aquiles Osborne at 06/23/2017 5:17 [facility] STAFF PHYSICIAN NOTE OF PERSONAL INVOLVEMENT IN CAREI have reviewed the progress note obtained and documented by the resident and Ipersonally participated in the rivera components. I have discussed the case andmanagement of the patient's care. Please refer to my note from 06/23/2017 for myassessment and plan.SIGNATURE: Aquiles Osborne, [facility] --MICU - PROGRESS NOTESERVICE DATE: 06/23/2017SERVICE TIME: [...] values in this interval not displayed.ABG:Recent Labs 06/21/190349EL 7.336*PO2 291.5*PCO2 54.7*Assessment/PlanIMPRESSIO N:Critical Care Documentation: The [...] atrial flutter ; target hr <110- hgb e9shQyxg patient has a high probability of sudden, [...] June 23, 2017 : 8:22 AM Normal [facility] Protein mass conc HNO ID: [id number] thor: Pierce (Rosario Navarreteervice: General SurgeryAuthor Type: [...] 06/22/176[address] - 06/23/1759 06/23/[address] - 06/24/17 0659Shift 8774-1806 9347-4903 9012-0564 24 Hour Total 0033-2837 5966-99778561-6005 24 Hour TotalINTAKE IV 247.3 471.8 1235 1954.1 D5 0.45%NS w/20KCL 408 1121 1529 Potassium IVPB 100 100 Fentanyl Volume 4.7 4.7 Octreotide IV 79.2 79.2 Propofol IV 63.4 63.8 114 241.2 Shift Total 247.3 471.8 1235 1954.1OUTPUT Urine 1020 579 554 2868 Tube Output ( Indwelling Urinary Catheter 06/21/17 1500 AssessmentFoley 16 Fr) 1020 521 233 4599 Tubes 288 10 1292 1625 Output (GI Feed/Drain 06/21/17 2000 Oral Gastric Midline 16 Fr) 550 826198 9635 # of BMs Number of BMs 0 x 0 x 0 x Shift Total 1514 080 8192 3895Weight (kg) 101.1 101.1 99.8 99.8 99.8 [...] per primary teamPierce Montiel MDGeneral Surgery Chief ResidentThe [facility] 2017 7:09 [facility] #: Pager: [phone] [facility] ALLIED HEALTHon 06-22-2017 ALLIED HEALTH HNO ID: [id number] thor: Christina Steele (Chaplain): Spiritual CareAuthospenser Type: ChaplainType: Allied HealthFiled: 06/22/2017 7:53 PMNote Text: SPIRITUALCARESpiritual Care Visit- Brief NoteName: Cristina JeffreyMRN: [id number]: June 22, 2017Notes: Follow up requested by previous continuity writer. Patient semi-conscious;offered prayer for patient. Chaplain Signature: Consuelo Steele contact the Spiritual Care Department:Please call [phone] or Page the On-Call Pump Rebuilder at pager [phone] you for the opportunity to be of service.This is an electronically created document.IF PRINTED, PLEASE DO NOT REMOVE FROM THE CHART OR MODIFY PRINTED COPY. [facility] ALLIED HEALTH HNO ID: [id number] thor: Leila (Pump Rebuilder) Mckeon, ChaplainService: Spiritual CareAuthor Type: ChaplainType: Allied HealthFiled: 06/22/2017 12:56 PMNote Text: SPIRITUALCARESpiritual Care Visit- Brief NoteName: Cristina JeffreyMRN: [id number]: June 22, 2017Notes: Follow up visit (requested by previous continuity writer) attempted--pt busyw/staff. Silent prayer outside rm Chaplain Signature: Consuelo Pantoja contact the Spiritual Care Department:Please call [phone] or Page the On-Call Pump Rebuilder at pager [phone] you for the opportunity to be of service.This is an electronically created document.IF PRINTED, PLEASE DO NOT REMOVE FROM THE CHART OR MODIFY PRINTED COPY. Normal [facility] Basic Panelon 06-22-2017 Creatinine 1.30 mg/dL High 0.67-1.17 [facility] Comment on above: Performed By: #### P PHRS ####[address] [address] Glucose mass conc 115 mg/dL High 70-99 [facility] Comment on above: Performed By: #### P PHRS ####[address] [address] Urea nitrogen 81 mg/dL High 7-18 [facility] Comment on above: Performed By: #### P PHRS ####[address] [address] Anion gap 6 mmol/L Low 8-16 [facility] Comment on above: Performed By: #### P PHRS ####[address] [address] Calcium 7.7 mg/dL Low 8.5-10.1 [facility] Comment on above: Performed By: #### P PHRS ####[place] [address] CO2 37 mmol/L High 21-32 [facility] Comment on above: Performed By: #### P PHRS ####[facility] [place] [address] Chloride 100 mmol/L Normal 98-107 [facility] Comment on above: Performed By: #### P PHRS ####[facility] [place] [address] Potassium molar conc 3.4 mmol/L Low 3.5-5.1 [facility] Comment on above: Performed By: #### P PHRS ####[facility] [place] [address] Sodium 140 mmol/L Normal 136-145 [facility] Comment on above: Performed By: #### P PHRS ####[place] [address] Cult Bloodon 06-22-2017 Cult Blood Test performed at [facility] No growth Normal [facility] Comment on above: Performed By: #### L AC ####[place] [address] Hemogramon 06-22-2017 Erythrocyte distribution width Auto Ratio (RBC) 15.8 % High 11.6-14.4 [facility] Comment on above: Performed By: #### P PHRS ####[place] [address] Erythrocytes (RBC) 4.04 mil/cmm Low 4.63-6.08 [facility] Comment on above: Performed By: #### P PHRS ####[place] [address] Hematocrit (HCT) 34.5 % Low 40.1-51.0 [facility] Comment on above: Performed By: #### P PHRS ####[place] [address] Hemoglobin mass conc (Bld) 12.2 g/dL Low 13.7-17.5 [facility] Comment on above: Performed By: #### P PHRS ####[place] [address] MCH 30.2 pg Normal 25.7-32.2 [facility] Comment on above: Performed By: #### P PHRS ####[facility] [place] [address] MCHC mass conc (RBC) 35.4 % Normal 32.3-36.5 [facility] Comment on above: Performed By: #### P PHRS ####[place] [address] MCV 85.4 fL Normal 83.2-95.6 [facility] Comment on above: Performed By: #### P PHRS ####[place] [address] Nucleated erythrocytes 0.11 thou/cmm High 0.00-0.01 [facility] Comment on above: Performed By: #### P PHRS ####[place] [address] Nucleated RBC % 0.6 % High 0.0-0.2 [facility] Comment on above: Performed By: #### P PHRS ####[place] [address] Platelet mean volume (PMV) 9.6 fL Normal 8.7-12.0 [facility] Comment on above: Performed By: #### P PHRS ####[place] [address] Platelets 138 thou/cmm Low 141-365 [facility] Comment on above: Performed By: #### P PHRS ####[place] [address] RDW SD 48.0 fl High 36.1-45.8 [facility] Comment on above: Performed By: #### P PHRS ####[place] [address] WBC (Leukocytes) 18.72 thou/cmm High 4.23-9.07 [facility] Comment on above: Performed By: #### P PHRS ####[place] [address] Hgbon 06-22-2017 Hemoglobin mass conc (Bld) 11.4 g/dL Low 13.7-17.5 [facility] Comment on above: Performed By: #### P PHRS ####[place] [id number] Hemoglobin mass conc (Bld) 11.9 g/dL Low 13.7-17.5 [facility] Comment on above: Performed By: #### P PHRS ####[facility] [place], [place] [address] Hemoglobin mass conc (Bld) 12.1 g/dL Low 13.7-17.5 [facility] Comment on above: Performed By: #### P PHRS ####[place] [id number] MDRD GFRon 06-22-2017 eGFR (non-black) 54.26 mL/min/{1.73_m2} Normal > 60mL/min/ 1.73m2 [facility] Comment on above: Result Comment: If t he patient is , multiply the result by 1.210. Performed By: #### P PHRS ####[place] [id number] NURSING PROGon 06-22-2017 Protein mass conc HNO ID: [id number] thor: Samantha (Rn) KELLY Dickervice: (none)Author Type: Registered NurseType: Nursing Progress NoteFiled: 06/22/2017 7:41 PMNote Text: Nursing Progress: Topic: RESTRAINT NON-VIOLENTPATIENT NAME: Cristina JeffreyMRN: [id number] LOCATION: [place] [address] [address]*The patient demonstrates Inability to be Redirected, Inability [...] 22, 2017TIME: 7:41 Dov Dick RN Normal [facility] Protein mass conc HNO ID: [id number] thor: Claribel (Rn) Safia, KELLYervice: NursingAuthor Type: Registered NurseType: Nursing Progress NoteFiled: 06/22/2017 3:40 PMNote Text:Nursing Progress: Topic: RESTRAINT NON-VIOLENTPATIENT NAME: Cristina JeffreyMRN: [id number] LOCATION: [place] [address]/[id number] patient demonstrates Inability to Retain Information Regarding [...] Progress: Topic: RESTRAINT NON-VIOLENTPATIENT NAME: Cristina JeffreyMRN: [id number] LOCATION: [place] [address]/[place] [address]*The patient demonstrates Inability to Retain Information Regarding [...] June 22, 2017TIME: 3:40 Leslie Baig RN [facility] PROGRESSon 06-22-2017 Protein mass conc HNO ID: [id number] thor: Bashir Darden (Pharmacist)Service: PharmacyAuthor Type: PharmacistType: Progress NotesFiled: 06/22/2017 4:09 PMNote Text:MEDICATION HISTORYPatient Name:Salvador JeffreyMRN: [id number]: 1945Source of history:[facility] Nonadherence Identified: No barriers notedThe above information represents the best possible medication history: YesAdditional comments: Confirmed prednisone dose previously entered atapring dose, NOT on chronic steroidsAllergies: ALLERGIESNo Known AllergiesPreferred Pharmacy: [facility] Medications:Prior to Admission medications as of 06/22/17 1607Medication Sig Last Dose Takingcarvedilol (COREG) 12.5 mg tablet Take 12.5 mg by mouth twice daily withmeals. YesVit A,C,U-Yiuf-Rjcech (PRESERVISION AREDS) 14,320-226-200 eavd-lp-hkctygh Take 1 capsule by mouth twice daily. [...] 40 mg by mouth twice daily. KENNY HouseThe [facility]health System 2017 4:08 PM Normal [facility] Protein mass conc HNO ID: [id number] Author: Katy SpearMac Velazquez RN Service: (none) Author Type: Registered Nurse Type: Progress Notes Filed: 06/22/2017 3:43 PM Note Text: LATE ENTRY: No moderate sedation given during EGD on 05/26/17 d/t pt sedated on Diprivan gtt. Normal [facility] Protein mass conc HNO ID: [id number] thor: Aquiles Harper) Omivice: Critical CareAuthor Type: PhysicianType: Progress NotesFiled: 06/22/2017 11:27 AMNote Text:[facility] STAFF PHYSICIAN NOTE OF PERSONAL INVOLVEMENT IN CAREI have reviewed the progress note obtained and documented by the residentand I personally participated in the rivera components. I have discussed thecase and management of the patient's care. The following comments reviseor confirm relevant rivera components of the note.IMPRESSION:71 year old male with PMH of HTN, COPD, HLD, ?ETOH use presented withmelena to [facility]. He was transferred to [facility] MICU with:Hemorrhagic shock AND Acute blood loss [...] providing critical care services: 35 minutes.SIGNATURE: LIGIA RossFREMONT HOSPITAL INSTITUTEDATE of SERVICE: 06/22/2017TIME of SERVICE: 9:12 AM Normal [facility] Protein mass conc HNO ID: [id number] thor: oDuglas (Adelina) ThakurService: Critical CareAuthor Type: ResidentType: Progress NotesFiled: 06/22/2017 2:21 PMNote Text: At testation signed by Aquiles Osborne at 06/23/2017 1:38 [facility] STAFF PHYSICIAN NOTE OF PERSONAL INVOLVEMENT IN CAREI have reviewed the progress note obtained and documented by the resident and Ipersonally participated in the rivera components. I have discussed the case andmanagement of the patient's care. Please refer to my note from 06/23/2017 for myassessment and plan.SIGNATURE: [facility]FREM[facility] --[facility] - PROGRESS NOTESERVICE DATE: 06/22/2017SERVICE [...] COPD, HLD, ?ETOH use presented withmelena to [facility]. He was transferred to [facility] MICU with Hemorrhagicshock AND Acute blood loss [...] June 22, 2017 : 8:17 AM Normal [facility] Protein mass conc HNO ID: [id number] thor: Kian Persaudervice: General SurgeryAuthor Type: PhysicianType: [...] 06/22/17 0659 06/22/17 07 - 06/23/17 0659Shift 6565-5919 5437-0767 4661-4086 24 Hour Total 9733-2708 9219-64718828-1569 24 Hour TotalINTAKE IV 1218.7 939.5 2158.2 NS 0.9% 5254 266 0399 Zosyn IV 50 50 100 Potassium IVPB [...] mL Shift Total 5366.7 939.5 6306.2OUTPUT Urine 4928 140 0694 Tube Output ( Indwelling Urinary Catheter 06/21/17 1500 AssessmentFoley 16 Fr) 6048 588 0292 Tubes 3200 0 3200 Output ([REMOVED] GI [...] mgmt per primary/Valentina Montiel MDGeneral Surgery Chief ResidentThe [facility]health System 2017 6:14 [facility] #: Pager: [phone] NoteI evaluated the patient and personally participated in the rivera components.I agree with the resident's findings and plan as documented and havediscussed the case and management of the patient's care with the resident.Kian Lobo, [facility]OSPITALepartment of General SurgerySection of Trauma, Surgery Critical Care, and Acute Care SurgeryDelayed entry Normal [facility] ABDOMEN 1 VIEWon 06-21-2017 ABDOMEN 1 VIEW Performed at [facility] APPROVED BY: Yann Lazar MD EXAM TITLE: [...] the proximal to mid gastric body. Normal [facility] ABO/Rh Confirmationon 2017 ABO group A Normal [facility] Comment on above: Performed By: #### P T ####[place] [address] RH Type Positive Normal [facility] Comment on above: Performed By: #### P T ####[place] [address] ALLIED HEALTHon 06-21-2017 ALLIED HEALTH HNO ID: [id number] thor: Tatum Rogers (Chaplain)ervice: Spiritual CareAuthor Type: ChaplainType: Allied HealthFiled: 06/21/2017 9:42 PMNote Text: SPIRITUALCARESpiritual Care Visit- Brief NoteName: Cristina JolleyMRN: [id number]: June 21, 2017Notes: Resident physician had continuity writer paged to offer support for Pt'sfamily who were waiting in MICU Consult room. Pump Rebuilder introduced himselfand role/ availability to Pt's family. Family stated they were aware ofthe seriousness of Pt's condition and requested prayers. Chaplainconfirmed how difficult the situation is and encouraged focus on present.Pump Rebuilder provided spiritual comfort/compassion and prayers as desired.Family grateful for [place] and chaplains availability. Pump Rebuilder encouragedfamily to notify staff if he could be of further service in any way.Pump Rebuilder to remain available. Chaphaleyi n Signature: Consuelo Rogers contact the Spiritual Care Department:Please call [phone] or Page the On-Call at pager [phone] you for the opportunity to be of service.This is an electronically created document.IF PRINTED, PLEASE DO NOT REMOVE FROM THE CHART OR MODIFY PRINTED COPY. Normal [facility] Alcohol, Serumon 06-21-2017 Alcohol, Serum < 3 Normal [facility] Comment on above: Performed By: #### P T ####[facility] [place] [address] Blood Gas Arterialon 018 Base Excess 1.9 mEq/L Normal -2.5 to 2.5 [facility] Comment on above: Performed By: #### P T ####[place] [address] Bicarbonate (HCO3) 28.6 mmol/L High 22.0-26.0 [facility] Comment on above: Performed By: #### P T ####[place] [address] CO2 54.7 mm Hg High 36.0-46.0 [facility] Comment on above: Performed By: #### P T ####[address] [address] O2% Sat Arterial 99.4 % High 95.0-98.0 [facility] Comment on above: Performed By: #### P T ####[address] [address] pH Arterial 7.336 Low 7.350-7.45 0 [facility] Comment on above: Performed By: #### P T ####[address] [address] PO2 Arterial 291.5 mm Hg High 85.0-96.0 [facility] Comment on above: Performed By: #### P T ####[place] [address] FIO2 100 % Normal [facility] Comment on above: Performed By: #### P T ####[place] [address] Body temperature 37 Normal [facility] Comment on above: Performed By: #### P T ####[facility] [place] [id number] CHEST 1 VIEWon 06-21-2017 CHEST 1 VIEW Performed at [facility] APPROVED BY: Davon Sorensen MD EXAMINATION: CHEST [...] region of the body the stomach. Normal [facility] CONSULTon 06-21-2017 CONSULT HNO ID: [id number] thor: Kian Persaudervice: General SurgeryAuthor Type: PhysicianType: ConsultsFiled: 07/16/2017 3:31 PMNote Text:HISTORY AND PHYSICAL EXAMINATION / CONSULTATION NOTESERVICE DATE: 06/21/2017SERVICE TIME: 5:45 [facility] PH[facility]ICIAN: Bipin Perez Chi COMPLAINT: UGI bleedHPI: This is a 71 year old male who presents as a transfer [facility] for UGI bleeding. He has received 6u [...] was CANCELLED on 06/21/2017 at 16:50 by [facility]. Duplicate order-FROZEN PLASMA (AK,AV,EU,FV,HL,GERRY,MM,SP) *Canceled*Collection Time: 06/21/17 12:00 AMNarrativeORDER was CANCELLED on 06/21/2017 at 16:50 by [facility]. Duplicate order-PROTHROMBIN TIME / PT (AK,AV,EU,FV,HL,GERRY,MM,SP)Sarah ection [...] Ref RangeTemp 37.0pH, Venous 7.397 7.320 - 7.639lVQ6, Venous 59.3 (H) 38.0 - 49.0 mm [...] WAS CANCELLED on 06/21/2017 at 15:49 by [facility].Duplicateorder-FROZEN PLASMA (AK,AV,EU,FV,HL,GERRY,MM,SP)Sarah ection Time: 06/21/17 3:49 PMResult [...] 21, 2017 : 5:45 PM PAGER/CONTACT #: [phone] NoteI agree with the resident's findings and plan as documented and havediscussed the case and management of the patient's care with the resident.Kian Lobo, MDDepartment of General SurgerySection of Trauma, Surgery Critical Care, and Acute Care SurgeryDelayed entry Normal [facility] Comprehensive Panelon 2017 Alkaline phosphatase (ALP) 41 U/L Low 46-116 [facility] Comment on above: Performed By: #### P T ####[facility] [place], [place] [address] Bilirubin Ql (U) 1.1 mg/dL High 0.2-1.0 [facility] Comment on above: Performed By: #### P T ####[facility] [place], [place] [address] Creatinine 1.45 mg/dL High 0.67-1.17 [facility] Comment on above: Performed By: #### P T ####[facility] [place], [place] [address] Protein 4.6 g/dL Low 6.4-8.2 [facility] Comment on above: Performed By: #### P T ####[address] [address] Alanine aminotransferase (ALT) 44 U/L Normal 12-78 [facility] Comment on above: Performed By: #### P T ####[address] [address] Aspartate aminotransferase (AST) 34 U/L Normal 9-37 [facility] Comment on above: Performed By: #### P T ####[address] [address] Albumin 2.3 g/dL Low 3.4-5.0 [facility] Comment on above: Performed By: #### P T ####[address] [address] Anion gap 14 mmol/L Normal 8-16 [facility] Comment on above: Performed By: #### P T ####[address] [address] Calcium 7.1 mg/dL Low 8.5-10.1 [facility] Comment on above: Performed By: #### P T ####[address] [address] CO2 30 mmol/L Normal 21-32 [facility] Comment on above: Performed By: #### P T ####[place] [address] Glucose mass conc 170 mg/dL High 70-99 [facility] Comment on above: Performed By: #### P T ####[facility] [place] [address] Urea nitrogen 94 mg/dL High 7-18 [facility] Comment on above: Performed By: #### P T ####[facility] [place] [address] Chloride 100 mmol/L Normal 98-107 [facility] Comment on above: Performed By: #### P T ####[facility] [place] [address] Potassium molar conc 4.2 mmol/L Normal 3.5-5.1 [facility] Comment on above: Performed By: #### P T ####[place] [address] Sodium 140 mmol/L Normal 136-145 [facility] Comment on above: Performed By: #### P T ####[place] [address] Frozen Plasma (Thawed Plasma )on 06-21-2017 FFP unit 3 Done Normal [facility] Comment on above: Performed By: #### P T ####[facility] [place] [address] FFP unit 4 Done Normal [facility] Comment on above: Performed By: #### P T ####[address] [address] FFP unit 5 Done Normal [facility] Comment on above: Performed By: #### P T ####[facility] [place] [address] FFP unit 1 Done Normal [facility] Comment on above: Performed By: #### P T ####[facility] [place] [address] FFP unit 2 Done Normal [facility] Comment on above: Performed By: #### P T ####[address] [address] FFP unit 3 Done Normal [facility] Comment on above: Performed By: #### F FPXS ####[address], [place] [address] FFP unit 4 Done Normal [facility] Comment on above: Performed By: #### F FPXS ####[facility] [place], [place] [address] FFP unit 5 Done Normal [facility] Comment on above: Performed By: #### F FPXS ####[facility] [place] [address] FFP unit 1 Done Normal [facility] Comment on above: Performed By: #### F FPXS ####[facility] [place] [address] FFP unit 2 Done Normal [facility] Comment on above: Performed By: #### F FPXS ####[place] [address] HISTORY PHYSICALon 8 HISTORY PHYSICAL HNO ID: [id number] thor: Aquiles Harper) Omivice: Critical CareAuthor Type: PhysicianType: HANDPFiled: 06/21/2017 5:26 PMNote Text:[facility] STAFF PHYSICIAN NOTE OF PERSONAL INVOLVEMENT IN CAREI have reviewed the history and physical examination obtained anddocumented by the resident and I personally participated in the keycomponents. I have discussed the case and management of the patient'scare. The following comments revise or confirm relevant rivera components ofthe note.IMPRESSION:71 year old male with PMH of HTN, COPD, HLD, ?ETOH use presented withmelena to [facility]. He was transferred to [facility] MICU withHemorrhagic shock AND Acute blood loss [...] SERVICE: 06/21/2017TIME of SERVICE: 4:57 PM Normal [facility] HISTORY PHYSICAL HNO ID: [id number] thor: Charis Arguello: Critical CareAuthor Type: ResidentType: HANDPFiled: 06/21/2017 5:46 PMNote Text: At testation signed by Aquiles Osborne at 06/22/2017 9:02 [facility] STAFF PHYSICIAN NOTE OF PERSONAL INVOLVEMENT IN CAREI have reviewed the progress note obtained and documented by the resident and Ipersonally participated in the rivera components. I have discussed the case andmanagement of the patient's care. Please refer to my note from 06/21/2017 for myassessment and plan.SIGNATURE: [facility] --[facility] CONSULT HANDPCRITICAL CARE CONSULT NOTESERVICE DATE: 06/21/2017SERVICE TIME: 3:24 PMREASON FOR CONSULT: Hemorrhagic shockADMITTING PROVIDER: Mazin Laguna DecoySERVICE DATE: 06/21/2017SERVICE TIME: 3:24 PMAdmission Date: 06/21/2017AGE: 71 year oldLOS: 0 daysSubjectiveHISTORY OF PRESENT ILLNESS:Cristina Jeffrey is a 71 year old with a history of COPD, HTN, HLD, and aquestionable history of alcohol abuse who presented to [facility] withdyspnea who received a breathing treatment and [...] June 21, 2017 : 3:24 PM PAGER: 1966 [facility] HOSPon 06-21-2017 [facility] Patient:Tessie Jeffrey tMRN: Height:5' 10"(1.778 m)Weight:220 lb 0.3 oz (99.8 kg)Outpatient Medications as of 06/23/17:carvedilol (COREG) 12.5 mg tabletVit A,C,I-Enjt-Rxcfej (PRESERVISION AREDS) 14,320-226-200 iydg-bj-vzjo capalbuterol (PROVENTIL) 2.5 mg /3 mL (0.083 %) nebulizer solutionlisinopril (ZESTRIL, PRINIVIL) 20 mg tabletpravastatin (PRAVACHOL) 40 mg tabletaspirin 81 mg chewable tabletbudesonide-formoterol (SYMBICORT) 160-4.5 mcg/actuation inhalerranitidine (ZANTAC) 150 mg tabletguaiFENesin (MUCINEX) 600 mg 12 hr tabletpredniSONE (DELTASONE) 10 mg tabletfurosemide (LASIX) 40 mg tabletAdmission/Clinic Administered Medications as of 06/23/17:dilTIAZem 100 mg in D5W 100 mL ADD-[place] (CARDIZEM)albuterol 2.5 mg/0.5 mL 2.5 mg nebulizer [...] Notes ():Sagar Dominguez MD 06/22/2017 5:14 PM [facility] - Operative ReportSURGEON: ENRIQUE AlcarazATIENT NAME: DAVID JEFFREYRN: [id number] CSN: [id number] OF SURGERY: 06/21/2017DATE OF : 1945 SEX/AGE: M/71PATIENT TYPE: V HOSP SVC: PULM LOCATION: [id number] OF SURGERY: 06/21/2017SURGEON: ENRIQUE AlcarazROCEDURE PERFORMED: Esophagogastroduodenoscopy [...] This 71-year-old male [facility] with history ofacute brisk GI bleeding. He [...] standby.Ifeoma AlcarazroenterologyGM:modlD: 06/21/2017 19:29:30T: 06/22/2017 03:55:36Job #: [id number] Liu, DO 06/21/2017 5:46 PM Attested -Attestation signed by Aquiles Osborne at 06/22/2017 9:02 [facility] STAFF PHYSICIAN NOTE OF PERSONAL INVOLVEMENT IN CAREI have reviewed the progress note obtained and documented by the resident and Ipersonally participated in the rivera components. I have discussed the case andmanagement of the patient's care. Please refer to my note from 06/21/2017 for myassessment and plan.SIGNATURE: Aquiles Osborne, [facility] --MICU CONSULT HANDPCRITICAL CARE CONSULT NOTESERVICE DATE: 06/21/2017SERVICE TIME: 3:24 PMREASON FOR CONSULT: Hemorrhagic shockADMITTING PROVIDER: Mazin McbrideSERVICE DATE: 06/21/2017SERVICE TIME: 3:24 PMAdmission Date: 06/21/2017AGE: 71 year oldLOS: 0 daysSubjectiveHISTORY OF PRESENT ILLNESS:Cristina Jeffrey is a 71 year old with a history of COPD, HTN, HLD, and aquestionable history of alcohol abuse who presented to [facility] with dyspnea whoreceived a breathing treatment and [...] detail with the patient, the consulting [facility].Staffed with : Dr. OsborneSIGNATURE: Chula Melendrez MD PATIENT NAME: Cristina JeffreyDATE: June 21, 2017 : 3:24 PM PAGER: [phone] Adamaris Osborne MD 06/21/2017 5:26 PM AddendumCOP[facility]IN [facility] STAFF PHYSICIAN NOTE OF PERSONAL INVOLVEMENT IN CAREI have reviewed the history and physical examination obtained and documented bythe resident and I personally participated in the rivera components. I havediscussed the case and management of the patient's care. The following commentsrevise or confirm relevant rivera components of the note.IMPRESSION:71 year old male with PMH of HTN, COPD, HLD, ?ETOH use presented with melena [facility] ED. He was transferred to [facility] MICU withHemorrhagic shock AND Acute blood loss [...] succinylcholine.Equipment: Endotracheal tube, size 7.5 mm and [place] ScopeThe patient was administered supplemental oxygen by [...] 06/21/2017 5:27 PM AddendumMEDICATION HISTORYPatient Name:Salvador JeffreyMRN: [id number]: 1945Source of history: From Medication List from [facility]. Unable to verify withpharmacy at this time.Medication Nonadherence Identified: No barriers notedThe above information represents the best possible medication history:IncompleteAdditional comments: Will attempt to verify with pharmacy when informationavailable.Please note, medication list from [facility] lists prednisone 10 mg daily #30tablets. Unable to find pharmacy at this time to verify. Team notifiedAllergies: ALLERGIESNo Known AllergiesPreferred Pharmacy: UnknownCurrent MARKETING DEVELOPMENT REPRESENTATIVE Medications:Prior to Admission medications as of 06/21/17 [...] twice daily. Neil DARDEN, PHARMACISTFebruary 2017 5:13 PMPrevious Anuja De Jesus [...] for the rivera parts of the procedure.Miguel Rsos MD 06/21/2017 5:54 PM Cosign NeededHISTORY AND PHYSICAL EXAMINATION / CONSULTATION NOTESERVICE DATE: 06/21/2017SERVICE TIME: 5:45 PMPRIABRAZO WEST CAMPUSY CARE PHYSICIAN: Bipin Perez Chi COMPLAINT: UGI bleedHPI: This is a 71 year old [facility]. [facility] [...] was CANCELLED on 06/21/2017 at 16:50 by [facility]. Duplicate order-FROZEN PLASMA (AK,AV,EU,FV,HL,GERRY,MM,SP) *Canceled*Collection Time: 06/21/17 12:00 AMNarrativeORDER was CANCELLED on 06/21/2017 at 16:50 by [facility] [facility]. Duplicate order-PROTHROMBIN TIME / PT (AK,AV,EU,FV,HL,GERRY,MM,SP)Sarah ection [...] Ref RangeTemp 37.0pH, Venous 7.397 7.320 - 7.442dGZ2, Venous 59.3 (H) 38.0 - 49.0 mm [...] WAS CANCELLED on 06/21/2017 at 15:49 by [facility]. Duplicateorder-FROZEN PLASMA (AK,AV,EU,FV,HL,GERRY,MM,SP)Sarah ection Time: 06/21/17 3:49 [...] Progress: Topic: RESTRAINT NON-VIOLENTPATIENT NAME: Cristina JeffreyMRN: [id number] LOCATION: [place] [address] [address]*The patient demonstrates as evidenced by the following [...] acute upper GI bleedingREQUESTING PHYSICIAN: Dr. KimbleKAISER FOUNDATION HOSPITALseth Jeffrey is a 71 year old with a history of COPD, HTN, HLD, and aquestionable history of alcohol abuse who presented to [facility] with dyspnea whoreceived a breathing treatment and [...] PM IncompleteBRIEF OPERATIVE / PROCEDURE NOTELOG ID: [id number]/PROCEDURE DATE: 06/21/2017SURGEON(S)/PROCEDURA LIST(S) AND SPOOL SORTER(S): Sagar Dominguez - PrimaryendoscopistINDICATION: Acute brisk upper [...] hourIntake 5218.5 mlOutput 3700 mlNet 1518.5 mlPHYSICAL EXAM:VEGETABLE FARMER: Intubated, SedatedFeeding Tube: Yes. Orogastric tubeEyes: PERNeck: [...] q 8 HDATA:BLOOD GAS:Recent Labs 06/21/1814VPH -- 7.145VEW6 -- 59.3*VPO2C -- 46.6*RESPHCO3 28.6* 35.7*BASEX -- 9.7D4HDWLPI -- 74.2PH 7.336* --PCO2 54.7* --X2QJFKTR 99.4* --CBC:Recent Labs WBC 27.76*HB 7.7*HCT 22.4*PLT 233MCV 93.7COAG:Recent Labs INR 1.15BMP:Recent Labs GLUC 170*NA 140K 4.2CHLOR 100CO2 30ANION 14BUN 94*CREAT 1.45*CHEM:Recent Labs ALB 2.3*TPROT 4.6*CA 7.1*HEPATIC:Recent Labs 600701SOENWUB 41*ALT 44AST 34TBILI 1.1*URINALYSIS:Recent Labs PH 7.336*Assessment/PlanASSESSME [...] critical care services: 40 minutes.SIGNATURE: Noe Quick [facility] RESPIRATORY INSTITUTEPAGER:[id number] of SERVICE: June 21, 2017TIME of SERVICE: 8:37 PMDaChaplain Raines Chaplain 06/21/2017 9:42 PM Signed SPIRITUALCARESpiritual Care Visit- Brief NoteName: Cristina JeffreyMRN: [id number]: June 21, 2017Notes: Resident physician had continuity writer paged to offer support for Pt's familywho were waiting in MICU Consult room. Pump Rebuilder introduced himself and role/availability to Pt's family. Family stated they were aware of the seriousness ofPt's condition and requested prayers. Pump Rebuilder confirmed how difficult thesituation is and encouraged focus on present. Pump Rebuilder provided spiritualcomfort/compassion and prayers as desired. Family grateful for SC and chaplainsavailability. Pump Rebuilder encouraged family to notify staff if he could be offurther service in any way. Pump Rebuilder to remain available. Chaplai n Signature: Consuelo Rogers contact the Spiritual Care Department:Please call [phone] or Page the On-Call Pump Rebuilder at pager [phone] you for the opportunity to be of service.This is an electronically created document.IF PRINTED, PLEASE DO NOT REMOVE FROM THE CHART OR MODIFY PRINTED COPY.Samantha Dick, RN, RN 06/21/2017 9:54 PM Signed Nursing Progress: Topic: RESTRAINT NON-VIOLENTPATIENT NAME: Cristina JeffreyMRN: [id number] LOCATION: [place] [address]/[place] [address]*The patient demonstrates Attempting to Remove Medical Devices [...] - 06/22/17 0659 06/22/17699 - 06/23/17 0659Shift 6322-8222 7555-1077 8052-2512 24 Hour Total 6706-1016 4894-0382 2300-836324 Hour TotalINTAKE IV 1218.7 939.5 2158.2 NS 0.9% 6940 823 3901 Zosyn IV 50 50 100 Potassium IVPB [...] mL Shift Total 5366.7 939.5 6306.2OUTPUT Urine 6977 119 7057 Tube Output ( Indwelling Urinary Catheter 06/21/17 1500 Assessment Foley16 Fr) 3249 654 6757 Tubes 3200 0 3200 Output ([REMOVED] GI [...] mgmt per primary/Valentina Montiel MDGeneral Surgery Chief ResidentThe [facility] 2017 6:14 [facility] #: Pager: [phone] Scott MD 06/22/2017 2:21 PM Attested -Attestation signed by Aquiles Osborne at 06/23/2017 1:38 [facility] STAFF PHYSICIAN NOTE OF PERSONAL INVOLVEMENT IN CAREI have reviewed the progress note obtained and documented by the resident and Ipersonally participated in the rivera components. I have discussed the case andmanagement of the patient's care. Please refer to my note from 06/23/2017 for myassessment and plan.SIGNATURE: Aquiles Osborne, [facility] --MICU - PROGRESS NOTESERVICE DATE: 06/22/2017SERVICE TIME: [...] -- 11.3 --INR -- 1.08 --ABG:Recent Labs 06/21/499874LY 7.336*PO2 291.5*PCO2 54.7*Assessment/PlanIMPRESSIO N:71 year old male with PMH of HTN, COPD, HLD, ?ETOH use presented with melena [facility] ED. He was transferred to [facility] MICU with Hemorrhagic shock AND Acute bloodloss [...] AMPrevious Adamaris Osborne MD 06/22/2017 11:27 AM SignedCOP[facility]FF [facility]ICIAN NOTE OF PERSONAL INVOLVEMENT IN CAREI have reviewed the progress note obtained and documented by the resident and Ipersonally participated in the rivera components. I have discussed the case andmanagement of the patient's care. The following comments revise or confirmrelevant rivera components of the note.IMPRESSION:71 year old male with PMH of HTN, COPD, HLD, ?ETOH use presented with melena [facility] ED. He was transferred to [facility] MICU with:Hemorrhagic shock AND Acute blood loss [...] SPIRITUALCARESpiritual Care Visit- Brief NoteName: Cristina JeffreyMRN: [id number]: June 22, 2017Notes: Follow up visit (requested by previous continuity writer) attempted--pt busyw/staff. Silent prayer outside rm Chaplain Signature: Consuelo Pantoja contact the [facility] Department:Please call [phone] or Page the On-Call Pump Rebuilder at pager [phone] you for the opportunity to be of service.This is an electronically created document.IF PRINTED, PLEASE DO NOT REMOVE FROM THE CHART OR MODIFY PRINTED COPY.Claribel Baig RN, RN 06/22/2017 3:37 PM IncompleteNursing Progress: Topic: RESTRAINT NON-VIOLENTPATIENT NAME: Cristina LeeN: [id number] LOCATION: [place] [address]/[place] [address]*The patient demonstrates Inability to Retain Information Regarding [...] Leslie Baig RN {Select Nursing Progress Note Template:[id number]}Claribel Baig RN, RN 06/22/2017 3:40 PM SignedNursing Progress: Topic: RESTRAINT NON-VIOLENTPATIENT NAME: Cristina JeffreyN: [id number] LOCATION: [place] [address]The patient demonstrates Inability to Retain Information Regarding [...] Progress: Topic: RESTRAINT NON-VIOLENTPATIENT NAME: Cristina JeffreyMRN: [id number] LOCATION: [place] [address]/[place] [address]*The patient demonstrates Inability to Retain Information Regarding [...] 06/22/2017 4:09 PM SignedMEDICATION HISTORYPatient Name:Salvador JeffreyMRN: [id number]: 1945Source of history:Pharmacy records: [facility] AvilaMedikimmy Nonadherence Identified: No barriers notedThe above information represents the best possible medication history: YesAdditional comments: Confirmed prednisone dose previously entered a tapringdose, NOT on chronic steroidsAllergies: ALLERGIESNo Known AllergiesPreferred Pharmacy: [facility] MARKETING DEVELOPMENT REPRESENTATIVE Medications:Prior to Admission medications as of 06/22/17 1607Medication Sig Last Dose Takingcarvedilol (COREG) 12.5 mg tablet Take 12.5 mg by mouth twice daily with meals.YesVit A,C,C-Nkym-Vkbviq (PRESERVISION AREDS) 14,320-226-200 xwvh-kq-qhmr cap Take1 capsule by mouth twice daily. [...] mg by mouth twice daily. Neil DARDEN PHARMACISTThe [facility]health System 2017 4:08 Chaplain Shaw Chaplain 06/22/2017 7:53 PM Signed SPIRITUALCARESpiritual Care Visit- Brief NoteName: Cristina JeffreyMRN: [id number]: June 22, 2017Notes: Follow up requested by previous continuity writer. Patient semi-conscious; offeredprayer for patient. Chaplain Signature: Consuelo Steele contact the Spiritual Care Department:Please call [phone] or Page the On-Call Pump Rebuilder at pager [phone] you for the opportunity to be of service.This is an electronically created document.IF PRINTED, PLEASE DO NOT REMOVE FROM THE CHART OR MODIFY PRINTED COPY.Samantha Dick, RN, RN 06/22/2017 7:41 PM Signed Nursing Progress: Topic: RESTRAINT NON-VIOLENTPATIENT NAME: Cristina JeffreyMRN: [id number] LOCATION: [place] [address]/[place] [address]*The patient demonstrates Inability to be Redirected, Inability [...] 06/23/17 0659 06/23/17 07 - 06/24/17 0659Shift 0028-6790 8448-2065 4196-1599 24 Hour Total 2621-3882 2457-4573 2300-587223 Hour TotalINTAKE IV 247.3 471.8 1235 1954.1 D5 0.45%NS w/20KCL 408 1121 1529 Potassium IVPB 100 100 Fentanyl Volume 4.7 4.7 Octreotide IV 79.2 79.2 Propofol IV 63.4 63.8 114 241.2 Shift Total 247.3 471.8 1235 1954.1OUTPUT Urine 1020 121 031 6801 Tube Output ( Indwelling Urinary Catheter 06/21/17 1500 Assessment Foley16 Fr) 1020 329 856 2371 Tubes 516 56 0273 1625 Output (GI Feed/Drain 06/21/17 2000 Oral Gastric Midline 16 Fr) 550 75 [id number] # of BMs Number of BMs 0 x 0 x 0 x Shift Total 5475 634 7423 3895Weight (kg) 101.1 101.1 99.8 99.8 99.8 [...] to follow- mgmt per primary teamPierce Montiel MDMadison [facility] Surgery Chief ResidentThe [facility] 2017 7:09 [facility] #: Pager: [phone] Lopez, RN, RN 06/23/2017 7:41 AM Signed Nursing Progress: Topic: RESTRAINT NON-VIOLENTPATIENT NAME: Cristina LeeN: [id number] LOCATION: [place] [address]/[place] [address]*The patient demonstrates Confusion as evidenced by the [...] atrial flutter ; target hr <110- hgb t4amAkco patient has a high probability of sudden, [...] Lopez, RN, RN 06/23/2017 11:24 AM AddendumDr Dominguze at bedside for egd. Sister javi spoke to over phone for consent by Elizabeth and RN. EGD began at 0940, upon the start pts heart rate increased into ebm486's 160'd, Dr Cole notified and arrived at bedside. Procedure stopped qt4099 because dr dominguez required different equipment to finish procedure. Ptmedicated at 1005. Procedure began once again at 1010. Respiratory notifiedthat stat ekg ordered, and obtained after egd procedure.Previous Dereje Dominguez MD 06/23/2017 11:21 AM SignedBRIEF OPERATIVE / PROCEDURE NOTELOG ID: [id number]/PROCEDURE DATE: 06/23/2017SURGEON(S)/PROCEDURAL IST(S) AND SPOOL SORTER(S): Sagar Dominguez - PrimaryendoscopistINDICATION: Recurrence of UGI [...] to maintain Hgb > 8 gm D #[id number]: Sagar Dominguez MD PATIENT NAME: Cristina JeffreyDATE: [...] COPD, HLD, ?ETOH use presented with melena [facility] ED. He was transferred to [facility] MICU with:?Hemorrhagic shock AND Acute blood loss [...] TIME: 1:46 PMPRIMARY CARE PHYSICIAN:ENRIQUE Perez [place]: [phone] STATUS: InpatientMEDICAL:Patient/Repr esentative Stated Goals:To return home [...] Admission: nebulizerHas the Patient Been in a Fdc Facility in the Past 30 days? NoSOCIAL:Living Arrangement: HomeLives With: AloneFinancial Resources: RetiredPrimary Contact: Extended Emergency Contact InformationPrimary Emergency Contact: [place] [address] [facility] Jpxgnlvs: SisterSupportive: YesOther Important Patient Contacts: NoneCaregiver Assessment:Caregiver [...] - 0I feel financially burdened by my mhz-uu-ychdic expenses for my prescriptionmedication: Disagree completely - [...] 23, 2017 : 1:46 PM PAGER/CONTACT #: [phone] Chapo Matias RD, [place] 06/23/2017 2:44 PM [...] feed via GI route and tpn needed, xaalorrcf91afm pro, 1008kcals CHO, 216kcals from fat.( total 1800kcals)If TF's feasible, recommend Impact Peptide 50ml/hr providing 1800kcals, 113gmsproCoordination of Care:d/w rnMonitor and Evaluation:Goal: Meet >75% of estimated needsMonitor fluid/electrolyte balanceMonitor labs, I/Os, vital signs, weightDischarge Nutrition Recommendations:To be determinedPer HPI: Cristina Jeffrey is a 71 year old with a history of COPD, HTN, HLD, and aquestionable history of alcohol abuse who presented to [facility] with dyspnea whoreceived a breathing treatment and [...] Wt06/23/17 : 99.8 kg (220 lb 0.3 oz)[place] Body Weight: 75kgResting Metabolic Rate: 1763Estimated kilocalorie needs: 1800 kilocalories determined by 25 kcal/kgEstimated protein needs: 90 grams determined by 1.2gms/kg Hawley weightEstimated fluid needs: 1800 milliliters based on [...] lb 0.3 oz) SpO2 100% BMI 31.57 kg/j2Nyculn Labs 06/23/1802GLUC -- 123* < > 170*BUN [...] Medications:dilTIAZem 100 mg in D5W 100 mL ADD-[place] (CARDIZEM) 5 mg/hr INTRAVENOUSCONTINUOUSalbutero l 2.5 mg/0.5 [...] June 23, 2017 : 2:28 PM PAGER: [phone] Normal [facility] Hemogram/Diffon 06-21-2017 Abs. Baso 0.00 thou/cmm Low 0.01-0.08 [facility] Comment on above: Performed By: #### C BCD1 ####[place] [address] Abs. Scurry 0.83 thou/cmm High 0.30-0.82 [facility] Comment on above: Performed By: #### C BCD1 ####[place] [address] Abs. Neut 22.49 thou/cmm High 1.78-5.38 [facility] Comment on above: Performed By: #### C BCD1 ####[place] [address] Anisocytosis presence Slight [facility] Comment on above: Performed By: #### C BCD1 ####[address] [address] Basophils/100 WBC Auto (Bld) 0.0 % Normal [facility] Comment on above: Performed By: #### C BCD1 ####[facility] [place], [place] [address] Eosinophils 0.00 thou/cmm Low 0.04-0.54 [facility] Comment on above: Performed By: #### C BCD1 ####[address] [address] Eosinophils/100 leukocytes 0.0 % Normal [facility] Comment on above: Performed By: #### C BCD1 ####[address] [address] Erythrocyte morphology Present Normal [facility] Comment on above: Performed By: #### C BCD1 ####[address] [address] Immat Grans Abs calc 0.28 Normal [facility] Comment on above: Performed By: #### C BCD1 ####[address] [address] Lymphocytes 4.16 thou/cmm High 0.84-2.85 [facility] Comment on above: Performed By: #### C BCD1 ####[address] [address] Lymphocytes/100 leukocytes 15.0 % Normal [facility] Comment on above: Performed By: #### C BCD1 ####[address] [address] Metamyelocytes 1.0 % Normal [facility] Comment on above: Performed By: #### C BCD1 ####[address] [address] Monocytes/100 leukocytes 3.0 % Normal [facility] Comment on above: Performed By: #### C BCD1 ####[address] [address] Polychromasia Few Normal [facility] Comment on above: Performed By: #### C BCD1 ####[place] [address] Seg Neutrophil 81.0 % Normal [facility] Comment on above: Performed By: #### C BCD1 ####[place] [address] Erythrocyte distribution width Auto Ratio (RBC) 14.2 % Normal 11.6-14.4 [facility] Comment on above: Performed By: #### C BCD1 ####[place] [address] Erythrocytes (RBC) 2.39 mil/cmm Low 4.63-6.08 [facility] Comment on above: Performed By: #### C BCD1 ####[place] [address] Hematocrit (HCT) 22.4 % Low 40.1-51.0 [facility] Comment on above: Performed By: #### C BCD1 ####[place] [address] Hemoglobin mass conc (Bld) 7.7 g/dL Low 13.7-17.5 [facility] Comment on above: Performed By: #### C BCD1 ####[place] [address] MCH 32.2 pg Normal 25.7-32.2 [facility] Comment on above: Performed By: #### C BCD1 ####[place] [address] MCHC mass conc (RBC) 34.4 % Normal 32.3-36.5 [facility] Comment on above: Performed By: #### C BCD1 ####[place] [address] MCV 93.7 fL Normal 83.2-95.6 [facility] Comment on above: Performed By: #### C BCD1 ####[place] [address] Nucleated erythrocytes 0.09 thou/cmm High 0.00-0.01 [facility] Comment on above: Performed By: #### C BCD1 ####[place] [address] Nucleated RBC % 0.3 % High 0.0-0.2 [facility] Comment on above: Performed By: #### C BCD1 ####[place] [address] Platelet mean volume (PMV) 10.6 fL Normal 8.7-12.0 [facility] Comment on above: Performed By: #### C BCD1 ####[place] [address] Platelets 233 thou/cmm Normal 141-365 [facility] Comment on above: Performed By: #### C BCD1 ####[place] [address] RDW SD 48.3 fl High 36.1-45.8 [facility] Comment on above: Performed By: #### C BCD1 ####[place] [address] WBC (Leukocytes) 27.76 thou/cmm Critically high 4.23-9.07 [facility] Comment on above: Performed By: #### C BCD1 ####[place] [address] Hgbon 06-21-2017 Hemoglobin mass conc (Bld) 12.6 g/dL Low 13.7-17.5 [facility] Comment on above: Performed By: #### P PHRS ####[place] [address] Lactic Acidon 06-21-2017 Lactate 4.5 mmol/L Critically high 0.4-2.0 [facility] Comment on above: Performed By: #### L AC ####[place] [address] MDRD GFRon 06-21-2017 eGFR (non-black) 47.84 mL/min/{1.73_m2} Normal > 60mL/min/ 1.73m2 [facility] Comment on above: Result Comment: If t he patient is , multiply the result by 1.210. Performed By: #### P T ####[address], [place] [address] MRSA Screenon 06-21-2017 MRSA Screen Test performed at [facility] No MRSA detected. Normal [facility] Comment on above: Performed By: #### P PHRS ####[address] [address] NURSING PROGon 06-21-2017 Protein mass conc HNO ID: [id number] thor: Samantha (Rn) Sheryl Dickice: (none)Author Type: Registered NurseType: Nursing Progress NoteFiled: 06/21/2017 9:54 PMNote Text: Nursing Progress: Topic: RESTRAINT NON-VIOLENTPATIENT NAME: Cristina JeffreyMRN: [id number] LOCATION: [place] [address]*The patient demonstrates Attempting to Remove Medical Devices [...] 21, 2017TIME: 9:54 Dov Dick RN Normal [facility] Protein mass conc HNO ID: [id number] thor: Daryn (Rn) Sheryl Joshiice: (none)Author Type: Registered NurseType: Nursing Progress NoteFiled: 06/21/2017 5:49 PMNote Text: Nursing Progress: Topic: RESTRAINT NON-VIOLENTPATIENT NAME: Cristina LeeN: [id number] LOCATION: [place] [address]*The patient demonstrates as evidenced by the following [...] 21, 2017TIME: 5:49 Arlene Joshi RN Normal [facility] OPERATIVE NOon 06-21-2017 OPERATIVE NO HNO ID: [id number] thor: Sagar Valenciaervice: GastroenterologyAuthor Type: PhysicianType: Operative ReportFiled: 06/22/2017 5:14 PMNote Text:[facility] - Operative ReportSURGEON: ENRIQUE AlcarazATIENT NAME: DAVID JEFFREYRN: [id number] CSN: [id number] OF SURGERY: 06/21/2017DATE OF : 1945 SEX/AGE: M/71PATIENT TYPE: V HOSP SVC: PULM LOCATION: [id number] OF SURGERY: 06/21/2017SURGEON: ENRIQUE AlcarazROCEDURE PERFORMED: Esophagogastroduodenoscopy [...] This 71-year-old male [facility] withhistory of acute brisk GI bleeding. He [...] Dominguez MDGastroenterologyGM:modlD: 06/21/2017 19:29:30T: 06/22/2017 03:55:36Job #: [id number] Normal [facility] PROCEDUREon 06-21-2017 Protein mass conc HNO ID: [id number] thor: Aquiles Harper) [facility]med[facility] state hospitalSeranaheim [facility] centere: Critical CareAuthor Type: PhysicianType: ProceduresFiled: [...] rivera parts of the procedure.Aquiles Osborne MD [facility] Protein mass conc HNO ID: [id number] thor: Bart (Jerrica Hervice: Critical CareAuthor Type: [...] patient tolerated the procedure well.Bart Hines, DO06/21/2017 [facility] Protein mass conc HNO ID: [id number] thor: Aquiles OsborneService: Critical CareAuthor Type: PhysicianType: [...] June 21, 2017 : 5:11 PM Normal [facility] Protein mass conc HNO ID: [id number] thor: Aquiles OsborneService: Critical CareAuthor Type: PhysicianType: [...] succinylcholine.Equipment: Endotracheal tube, size 7.5 mm and [place] ScopeThe patient was administered supplemental oxygen by [...] entire duration of the procedure.Aquiles Osborne MD [facility] PROGRESSon 06-21-2017 Protein mass conc HNO ID: [id number] thor: Noe Ambrose: Pulmonary DiseaseAuthor Type: PhysicianType: [...] hourIntake 5218.5 mlOutput 3700 mlNet 1518.5 mlPHYSICAL EXAM:VEGETABLE FARMER: Intubated, SedatedFeeding Tube: Yes. Orogastric tubeEyes: PERNeck: [...] q 8 HDATA:BLOOD GAS:Recent Labs 06/21/1814VPH -- 7.028TAG4 -- 59.3*VPO2C -- 46.6*RESPHCO3 28.6* 35.7*BASEX -- 9.6V0IYUJGJ -- 74.2PH 7.336* --PCO2 54.7* --T1FCTXOE 99.4* --CBC:Recent Labs WBC 27.76*HB 7.7*HCT 22.4*PLT 233MCV 93.7COAG:Recent Labs INR 1.15BMP:Recent Labs GLUC 170*NA 140K 4.2CHLOR 100CO2 30ANION 14BUN 94*CREAT 1.45*CHEM:Recent Labs ALB 2.3*TPROT 4.6*CA 7.1*HEPATIC:Recent Labs 754152QLWJSGQ 41*ALT 44AST 34TBILI 1.1*URINALYSIS:Recent Labs PH 7.336*Assessment/PlanASSESSME [...] critical care services: 40 minutes.SIGNATURE: Noe Quick [facility] RESPIR[facility] INSTITUTEPAGER:[id number] of SERVICE: June 21, 2017TIME of SERVICE: 8:37 PM Normal [facility] Protein mass conc HNO ID: [id number] thor: Sagar Valenciaervice: GastroenterologyAuthor Type: PhysicianType: Progress NotesFiled: 06/29/2017 11:34 AMNote Text:BRIEF OPERATIVE / PROCEDURE NOTELOG ID: [id number]/PROCEDURE DATE: 06/21/2017SURGEON(S)/PROCEDURA LIST(S) AND SPOOL SORTER(S): Sagar Dominguez - PrimaryendoscopistINDICATION: Acute brisk upper [...] NAME: Cristina MooreTE: 06/21/2017 : normal Normal [facility] Protein mass conc HNO ID: [id number] thor: Sagar Valenciaervice: GastroenterologyAuthor Type: PhysicianType: Progress NotesFiled: 06/21/2017 7:15 PMNote Text:CONSULT: GASTROENTEROLOGY SERVICESERVICE DATE: 01/28/2017SERVICE TIME: 7:03 PMREASON FOR CONSULT: acute upper GI bleedingREQUESTING PHYSICIAN: Dr. Pelletierseth Jeffrey is a 71 year old with a history of COPD, HTN, HLD, and aquestionable history of alcohol abuse who presented to [facility] withdyspnea who received a breathing treatment and [...] Cristina JeffreyDATE: 06/21/17 : 7:03 PM Normal [facility] Protein mass conc HNO ID: [id number] thor: Bashir Darden (Pharmacist)Service: PharmacyAuthor Type: PharmacistType: Progress NotesFiled: 06/21/2017 5:27 PMNote Text:MEDICATION HISTORYPatient Name:Salvador JeffreyMRN: [id number]: 1945Source of history: From Medication List from [facility]. Unable to verifywith pharmacy at this time.Medication Nonadherence Identified: No barriers notedThe above information represents the best possible medication history:IncompleteAdditional comments: Will attempt to verify with pharmacy when informationavailable.Please note, medication list from [facility] lists prednisone 10 mg daily #30tablets. Unable to find pharmacy at this time to verify. Team notifiedAllergies: ALLERGIESNo Known AllergiesPreferred Pharmacy: UnknownCurrent MARKETING DEVELOPMENT REPRESENTATIVE Medications:Prior to Admission medications as of 06/21/17 [...] Neil DARDEN, PHARMACISTFebruary 2017 5:13 PM Normal [facility] Pheresed Plateletson 018 Pheresed Plts unit 1 Done Normal [facility] Comment on above: Performed By: #### P T ####[place] [address] Pheresed Plts unit 1 Done Normal [facility] Comment on above: Performed By: #### P PHRS ####[place] [address] Protimeon 06-21-2017 INR Coag RelTime (PPP) 1.08 {INR} Normal [facility] Comment on above: Result Comment: Timo dard Therapy 2.0-3.0High Dose 2.5-3.5 Performed By: #### P PHRS ####[place] [address] Prothrombin time (PT) Coag time (PPP) 11.3 s Normal 9.3-11.9 [facility] Comment on above: Performed By: #### P PHRS ####[place] [address] INR Coag RelTime (PPP) 1.15 {INR} Normal [facility] Comment on above: Result Comment: Timo mercado Therapy 2.0-3.0High Dose 2.5-3.5 Performed By: #### P T ####[place] [address] Prothrombin time (PT) Coag time (PPP) 11.9 s Normal 9.3-11.9 [facility] Comment on above: Performed By: #### P T ####[place] [address] RBC Productson 06-21-2017 Xmatch Unit 1 see below Normal [facility] Comment on above: Result Comment: Comp atible Performed By: #### R BCPS ####[place] [address] Xmatch [address] 2 see below Normal [facility] Comment on above: Result Comment: Comp atible Performed By: #### R BCPS ####[place] [address] Xmatch [address] 3 see below Normal [facility] Comment on above: Result Comment: Comp atible Performed By: #### R BCPS ####[place] [address] [address]match [address] 4 see below Normal [facility] Comment on above: Result Comment: Comp atible Performed By: #### R BCPS ####[place] [address] Xmatch [address] 5 see below Normal [facility] Comment on above: Result Comment: Comp atible Performed By: #### R BCPS ####[place] [address] [address] 1 see below Normal [facility] Comment on above: Result Comment: Issu ed uncrossmatched; tested compatible Performed By: #### R BCPS ####[place] [address] [address]match [address] 2 see below Normal [facility] Comment on above: Result Comment: Issu ed uncrossmatched; tested compatible Performed By: #### R BCPS ####[facility] [place] [address] [address] see below Normal [facility] Comment on above: Result Comment: Comp atible Performed By: #### R BCPS ####[facility] [place] [address] [address]match [address] 2 see below Normal [facility] Comment on above: Result Comment: Comp atible Performed By: #### R BCPS ####[facility] [place] [address] [address]match [address] 3 see below Normal [facility] Comment on above: Result Comment: Comp atible Performed By: #### R BCPS ####[facility] [place] [address] [address] 4 see below Normal [facility] Comment on above: Result Comment: Comp atible Performed By: #### R BCPS ####[facility] [place] [address] [address] 5 see below Normal [facility] Comment on above: Result Comment: Comp atible Performed By: #### R BCPS ####[place] [address] Surgical Tissue Examon 06-21 Surgical Tissue Exam Test performed at [place] [address]NAME: CRISTINA JEFFREY [id number] REQUESTING: SAGAR DOMINGUEZ M.D.FINAL DIAGNOSIS:GASTRIC BIOPSIES (BODY [...] 16:36PRINTED: 06/23/2017 Page 1 of 1 Normal [facility] Comment on above: Performed By: #### L AC ####[place] [address] Type and Screenon 06-21-2017 ABO group A Normal [facility] Comment on above: Performed By: #### T &S ####[place] [address] Antibody Screen Negative Normal [facility] Comment on above: Performed By: #### T &S ####[place] [address] Comment See Below [facility] Comment on above: Result Comment: Scre en &/or Xmatch expires in 3 days at 12 midnight. Redrawpatient at that time. Performed By: #### T &S ####[place] [address] RH Type Positive Normal [facility] Comment on above: Performed By: #### T &S ####[place] [address] Urine Drug Screenon 06-21-19 18 Urine Amphetamine Non-detected Normal Non-Detect ed [facility] Comment on above: Performed By: #### P T ####[place] [address] Urine Barbiturates Non-detected Normal Non-Detec t ed [facility] Comment on above: Performed By: #### P T ####[place] [address] Urine Benzodiazepine Non-detected Normal Non-Det ect ed [facility] Comment on above: Performed By: #### P T ####[place] [address] Urine Cocaine Metab Non-detected Normal Non-Dete ct ed [facility] Comment on above: Performed By: #### P T ####[place] [address] Urine Opiate Non-detected Normal Non-Detect ed [facility] Comment on above: Performed By: #### P T ####[address] [address] Urine PCP Non-detected Normal Non-Detect ed [facility] Comment on above: Performed By: #### P T ####[address] [address] Urine THC Non-detected Normal Non-Detect ed [facility] Comment on above: Result Comment: Urin e [...] diagnosticpurposes only. Performed By: #### P T ####[place] [address] Venous Blood Gason 8 Base Excess 9.6 mEq/L Normal -2.5 to 2.5 [facility] Comment on above: Performed By: #### V BG ####[place] [address] Bicarbonate (HCO3) 35.7 mmol/L High 22.0-26.0 [facility] Comment on above: Performed By: #### V BG ####[place] [address] Body temperature 37.0 Normal [facility] Comment on above: Performed By: #### V BG ####[place] [address] CO2 59.3 mm Hg High 38.0-49.0 [facility] Comment on above: Performed By: #### V BG ####[place] [address] O2% Sat Venous 74.2 % Normal 70.0-80.0 [facility] Comment on above: Performed By: #### V BG ####[facility] [place], [place] [address] pH Venous 7.397 Normal 7.320-7.42 0 [facility] Comment on above: Performed By: #### V BG ####[facility] [place], [place] [address] PO2 Venous 46.6 mm Hg High 35.0-45.0 [facility] Comment on above: Performed By: #### V BG ####[facility] [place] [address] Vital Signs Date Time Vital Sign Value Performing Clinician Faci lity 07-15-2024 12:55-0400 Body temperature 97.8 [degF] Dr. Clifton Del Valle MD Work Phone: [facility] 07-15-2024 12:55-0400 Diastolic blood pressure 74 mm[Hg] Dr. Clifton Del Valle MD Work Phone: [facility] 07-15-2024 12:55-0400 Heart rate 100 /min Dr. Clifton Del Valle MD Work Phone: [facility] 07-15-2024 12:55-0400 Respiratory rate 16 /min Dr. Clifton Del Valle MD Work Phone: [facility] 07-15-2024 12:55-0400 SaO2% (BldA) [Mass fraction] 94 % Dr. Clifton Del Valle MD Work Phone: [facility] 07-15-2024 12:55-0400 Systolic blood pressure 119 mm[Hg] Dr. Clifton Del Valle MD Work Phone: [facility] 07-14-2024 23:12-0400 Inhaled oxygen flow rate 1 L/min Dr. Clifton Del Valle MD Work Phone: [facility] 07-13-2024 10:08-0400 Body height 175.[address] Clifton Del Valle MD Work Phone: [facility] 07-13-2024 10:08-0400 Body mass index (BMI) [Ratio] 31.6 kg/m2 Dr. Clifton Del Valle MD Work Phone: 0(179)965-851590 [place] [address] 07-13-2024 10:08-0400 Body weight [address] Clifton Del Valle MD Work Phone: 2(606)643-771389 [place] [address] 07-13-2024 09:40-0400 Body temperature 98.3 [degF] Dr. Clifton Del Valle MD Work Phone: 7(086)325-601989 [place] [address] 07-13-2024 09:40-0400 Diastolic blood pressure 57 mm[Hg] Dr. Clifton Del Valle MD Work Phone: 2(730)486-650189 [place] [address] 07-13-2024 09:40-0400 Heart rate 128 /min Dr. Clifton Del Valle MD Work Phone: 0(740)551-029089 [place] [address] 07-13-2024 09:40-0400 Respiratory rate 24 /min Dr. Clifton Del Valle MD Work Phone: 5(396)969-835889 [place] [address] 07-13-2024 09:40-0400 SaO2% (BldA) [Mass fraction] 95 % Dr. Clifton Del Valle MD Work Phone: 2(649)854-846689 [place] [address] 07-13-2024 09:40-0400 Systolic blood pressure 89 mm[Hg] Dr. Clifton Del Valle MD Work Phone: 3(563)415-500189 [place] [address] 07-13-2024 09:00-0400 Inhaled oxygen flow rate 1 L/min Dr. Clifton Del Valle MD Work Phone: 9(213)787-148789 [place] [address] 07-13-2024 06:44-0400 Body height 175.[address] Clifton Del Valle MD Work Phone: 6(651)993-973989 [place] [address] 07-13-2024 06:44-0400 Body mass index (BMI) [Ratio] 32.6 kg/m2 Dr. Clifton Del Valle MD Work Phone: 3(425)877-244390 [place] [address] 07-13-2024 06:44-0400 Body weight 100.[address] Clifton Del Valle MD Work Phone: 9(133)763-131689 [place] [address] 07-02-2024 07:45-0400 Body mass index (BMI) [Ratio] 32.6 kg/m2 Dr. Clifton Del Valle MD Work Phone: 4(976)153-555990 [place] [address] 07-02-2024 07:45-0400 Body weight 100.[address] Clifton Del Valle MD Work Phone: 8(802)809-225290 [place] [address] 07-02-2024 07:45-0400 Diastolic blood pressure 83 mm[Hg] Dr. Clifton Del Valle MD Work Phone: 8(752)978-567189 [place] [address] 07-02-2024 07:45-0400 Heart rate 88 /min Dr. Clifton Del Valle MD Work Phone: 8(037)635-138989 [place] [address] 07-02-2024 07:45-0400 Respiratory rate 18 /min Dr. Clifton Del Valle MD Work Phone: 8(592)279-749189 [place] [address] 07-02-2024 07:45-0400 SaO2% (BldA) [Mass fraction] 97 % Dr. Clifton Del Valle MD Work Phone: 7(947)813-589190 [place] [address] 07-02-2024 07:45-0400 Systolic blood pressure 120 mm[Hg] Dr. Clifton Del Valle MD Work Phone: 5(876)446-438690 [place] [address] 05-10-2022 07:57-0500 Body height 175.[address] Clifton Del Valle Work Phone: 6(164)108-553789 [place] [address] 05-10-2022 07:57-0500 Body mass index (BMI) [Ratio] 30.8 kg/m2 Dr. Clifton Del Valle Work Phone: 9(889)414-008490 [place] [address] 05-10-2022 07:57-0500 Body weight 94.[address] Clifton Del Valle Work Phone: 6(387)667-915990 [place] [address] 05-10-2022 07:57-0500 Diastolic blood pressure 84 mm[Hg] Dr. Clifton Del Valle Work Phone: 2(938)667-948690 [place] [address] 05-10-2022 07:57-0500 Heart rate 75 /min Dr. Clifton Del Valle Work Phone: 1(213)951-529290 [place] [address] 05-10-2022 07:57-0500 Respiratory rate 18 /min Dr. Clifton Del Valle Work Phone: [facility] 05-10-2022 07:57-0500 SaO2% (BldA) [Mass fraction] 96 % Dr. Clifton Del Valle Work Phone: [facility] 05-10-2022 07:57-0500 Systolic blood pressure 127 mm[Hg] Dr. Clifton Del Valle Work Phone: [facility] 09-06-2021 03:39-0400 Heart rate 76 /min [facility] Work Phone: 09-06-2021 03:39-0400 Respiratory rate 18 /min [facility] Work Phone: 09-06-2021 03:39-0400 SaO2% (BldA) [Mass fraction] 98 % [facility] Work Phone: 09-06-2021 01:00-0400 Diastolic blood pressure 68 mm[Hg] [facility] Work Phone: 09-06-2021 01:00-0400 Systolic blood pressure 110 mm[Hg] [facility] Work Phone: 09-05-2021 23:41-0400 Body height 175.26 cm [facility] Work Phone: 09-05-2021 23:41-0400 Body mass index (BMI) [Ratio] 33.9 kg/m2 [facility] Work Phone: 09-05-2021 23:41-0400 Body temperature 97.7 [degF] [facility] Work Phone: 09-05-2021 23:41-0400 Body weight 104.1 kg [facility] Work Phone: Encounters Encounter Date Encounter Type Care Provider Facility Start: 09-05-2024 End: 09-05-[address] Clifton Del Valle MD Work Phone: [facility] Work Phone: Start: 09-05-2024 End: 09-05-[address] Clifton Del Valle MD -Laboratory Work Phone: Start: 09-05-2024 End: 09-05-2024 ambulatory Clifton Justin Del Valle Facility:[facility] Start: 07-15-2024 Non-patient / Non-visit Dr. Bertin Torrez [facility] Work Phone: Start: 07-14-2024 Non-patient / Non-visit Dr. Bertin Torrez [facility] Work Phone: Start: 07-13-2024 Non-patient / Non-visit [facility] Galeano [facility] Start: 07-13-2024 ambulatory Clifton Del Valle Facility:[facility] Start: 07-13-2024 ambulatory Bertin Rodriguez y:[facility] Start: 07-13-2024 End: 07-15-2024 Evaluation and management of inpatient Dr. Bertin Wolff DO -[facility] Work Phone: Start: 07-02-2024 End: 07-02-2024 Patient encounter procedure Tasha gNuyen [place] -[facility] Work Phone: Start: 07-02-2024 End: 07-02-2024 ambulatory Clifton Del Valle Facility[place] Start: 02-27-2024 End: 02-27-2024 ambulatory Clifton Justin Del Valle Facility:[facility] Start: 02-28-2023 End: 02-28-2023 ambulatory [facility] Work Phone: Start: 02-28-2023 End: 02-28-2023 Patient encounter procedure [facility]-Laboratory, Phy Office 3rd Flr Start: 08-30-2022 End: 08-30-[address] Clifton Del Valle Work Phone: [facility] Work Phone: Start: 08-30-2022 End: 08-30-[address] Clifton Del Valle Work Phone: [facility]-Laboratory, Phy Office 3rd Flr Start: 05-10-2022 End: 05-10-[address] Clifton Del Valle Work Phone: [facility] Start: 03-01-2022 End: 03-01-2022 ambulatory [facility] Work Phone: Start: 03-01-2022 End: 03-01-2022 Patient encounter procedure [facility]-Laboratory, Phy Office 3rd Flr Start: 10-07-2021 End: 10-07-[address] [facility] Start: 09-23-2021 End: 09-23-[address] [facility] Start: 09-09-2021 End: 09-09-[address] [facility] Start: 09-05-2021 End: 09-06-2021 Emergency department patient visit [facility]-Emergency Department Start: 08-26-2021 End: 08-26-2021 Patient encounter procedure [facility]-Laboratory, Phy Office 3rd Flr Start: 11-06-2017 Ambulatory MICHELLE MENDEZ Facili ty:[facility] Start: 10-10-2017 End: 10-10-2017 Ambulatory NOAMAN S ALI Facility:[facility] Start: 09-12-2017 End: 09-28-2017 Evaluation and management of inpatient NOAMAN S ALI Facility:[facility] Start: 09-12-2017 End: 09-12-2017 Evaluation and management of inpatient SAGAR N REINALDO Facility:[facility] Start: 09-12-2017 End: 09-12-2017 Patient encounter SAGAR NABI REINALDO [facility] Start: 06-21-2017 End: 07-05-2017 Evaluation and management of inpatient JOSÉ MIGUEL DEL VALLE Facility:[facility] Procedures Date Procedure Procedure Detail Performing Clinician [...] Activity Detail Author Start: 07-15-2024 Patient discharge [facility] Start: 07-14-2024 Care planning and problem solving actions [facility] Start: 07-14-2024 Chest 1 View (Portable) Chest 1 View (Portable) [facility] Start: 07-14-2024 XR Chest Single view [facility] Start: 07-13-2024 Bacteria identified in Blood by Culture Blood Culture [facility] Start: 07-13-2024 Blood culture Blood Culture [facility] Start: 07-13-2024 SARS-CoV-2, Influenza & RSV (PCR) SARS-CoV-2, Influenza & RSV (PCR) [facility] Start: 07-13-2024 Referral to occupational therapist [facility] Start: 07-13-2024 Referral to service [facility] Start: 07-13-2024 Following clinical pathway protocol [facility] Start: 07-13-2024 Care planning and problem solving actions [facility] Start: 07-13-2024 Ambulation without limitation [facility] Start: 07-13-2024 Assessment of risk of venous thromboembolism [facility] Start: 07-13-2024 Catheterization of vein [facility] Start: 07-13-2024 Inhalation therapy procedure [facility] Start: 07-13-2024 Insertion of catheter into peripheral vein [facility] Start: 07-13-2024 Measuring intake and output [facility] Start: 07-13-2024 Oxygen therapy [facility] Start: 07-13-2024 Providing care according to standard [facility] Start: 07-13-2024 Respiratory therapy [facility] Start: 07-13-2024 [facility] Start: 07-13-2024 Legionella pneumophila Ag [Presence] in Urine [facility] Start: 07-13-2024 Streptococcus pneumoniae antigen assay [facility] Start: 07-13-2024 Verification routine [facility] Start: 07-13-2024 Admission procedure [facility] Start: 07-13-2024 End: 07-14-2024 [facility] Start: 09-05-2021 Simple repair f/e/e/n/l/m 2.5cm/< RPR F/E/E/N/L/M 2.5 CM/< [facility] Work Phone: Anion gap in Serum o r Plasma [facility] BUN/Creatinine ratio [facility] Calcium [Mass/volume ] in Serum or Plasma [facility] Carbon dioxide, tota l [Moles/volume] in Central venous blood [facility] Creatinine [Mass/vol ume] in Serum or Plasma [facility] Glucose [Mass/volume ] in Serum or Plasma [facility] Measurement of renal function [facility] Patient Education ED Head Injury (Adult) ED Laceration: All Closures [facility] Work Phone: Patient referral [facility] Work Phone: Potassium measurement [facility] Serum chloride measurement [facility] Sodium measurement [facility] Urea nitrogen [Mass/ volume] in Serum or Plasma [facility] Immunizations Immunization Date Immunization Notes Care Provider Fa cility 02-27-2024 influenza, injectabl e, quadrivalent, preservative free Dr. Clifton Del Valle MD Work Phone: [facility] 02-28-2023 influenza, injectabl e, quadrivalent, preservative free Dr. Clifton Del Valle MD Work Phone: [facility] 08-26-2021 Covid (Moderna) Dr. lCifton Del Valle MD Work Phone: [facility] 02-25-2021 Covid (Moderna) Dr. Clifton Del Valle MD Work Phone: [facility] 02-25-2021 influenza, injectabl e, quadrivalent, preservative free Dr. Clifton Del Valle MD Work Phone: [facility] 07-02-2020 Covid ([employer]) Dr. Clifton Del Valle MD Work Phone: [facility] 02-18-2020 influenza, injectabl e, quadrivalent, preservative free Dr. Clifton Del Valle MD Work Phone: [facility] 10-22-[address] Clifton Del Valle MD Work Phone: [facility] 08-20-[address] Clifton Del Valle MD Work Phone: [facility] 02-06-2019 influenza, injectabl e, quadrivalent, preservative free Dr. Clifton Del Valle MD Work Phone: [facility] 02-19-2018 Influenza virus vaccine [facility] 01-16-2017 influenza, high dose seasonal, preservative-free Dr. Clifton Del Valle MD Work Phone: [facility] Payers Date Payer Category Payer Medicaid [id number] 2024 Self-pay [id number] 2023 Unknown [id number] 2010 Medicare [id number] Unknown [id number] 2.16.8 [id number] Unknown [id number] 2.16.8 [id number] Unknown [id number] 2.16.8 [id number] Unknown [id number] 2.16.8 [id number] Unknown [id number] 2.16.8 [id number] Unknown [id number] 2.16.8 [id number] Unknown [id number] 2.16.8 [id number] Unknown [id number] 2.16.8 [id number] Social History Date Type Detail Facility Start: 04-20-2021 End: 05-10-2022 Tobacco smoking status VTIS Unknown if ever smoked [facility] Start: 01-28-2019 Sober [facility] Start: 01-28-2019 None [facility] Start: 01-28-2019 Alone [facility] Start: 01-28-2019 Non-smoker [facility] Start: 1945 Sex Assigned At Male [facility] Start: 07-13-2024 [facility] Start: 07-13-2024 End: 07-15-2024 Sex Male (finding) [facility] Medical Equipment Procedure Code Equipment Code Equipment [...] cholecystectomy with exploration of common bile duct CLIP,EBRLIN HUANG WECK FDA Start: 01-29-2019 Total cholecystectomy [...] Facility 07-15-2024 Functional status Chair [facility] Work Phone: Mental Status Date Assessment Result Facility 07-15-2024 Cognitive function Voice/Name [facility] Work Phone: 07-13-2024 Cognitive function Voice/Name [facility] Work Phone: Clinical Notes 07-02-2024 to 07-15-2024 Note Date & Type Note Facility 07-15-2024 Discharge summary Note Date/Time July 15, 2024 11:24am [facility] Medical Records Department [address] [place] [address] Discharge Summary 07/15/24 1121 MR#: [id number] Acct: [id number] Name: CRISTINA JEFFREY Rep #:[id number] : 1945 79 From: Bertin Wolff DO PCP: Dr. Clifton Del Valle MD Status:ADM I N Location: [place] [address] Providers Date of Admission: 07/13/24 Date of [...] 40 mg PO QHS cholesterol 01/25/19 vitamins A,C,D-pito-ftntdq 4,296 mcg-226 mg-90 mg capsule 1 ea [...] 78.1 H, Lymph % (Auto) 9.7 L, Scurry % (Auto) 11.0 H, Eos % (Auto) [...] MG tablet 40 mg PO BID vitamins A,C,T-zgtw-yzvwee 1 EACH capsule 1 ea PO BID [...] Self Care Charges/Coding Visit Charges Inpatient E&M: 49011 Disch Hosp >30min 07/15/24 1124 <Electronically signed by Bertin Wolff DO> Cosigner Signature (if applicable): CC: Dr. Bertin Wolff DO; Dr. Clifton Del Valle MD~ Signed [facility] Work Phone: 1(866) 434-599503-24-2025 Discharge summary Author [facility] Note Date/Time July 15, 2024 11: 18am [facility] Medical Records Department [address] [place] [address] Instructions for Home/Discharge Instructions 07/15/24 1108 MR#: [id number] Acct: [id number] Name: CRISTINA JEFFREY Rep #:[id number] : 1945 79 From: Bertin Wolff DO [...] MG tablet 40 mg PO BID vitamins A,C,R-ivmm-ephgkd 1 EACH capsule 1 ea PO BID [...] Dr. Clifton Del Valle MD ~ Signed [facility] Work Phone: 1(481) 550-552703-24-2025 Discharge summary [facility] Medical Records Department [address] [place] [address] Discharge Summary 07/15/24 1121 MR#: [id number] Acct: [id number] Name: CRISTINA JEFFREY Rep #:[id number] : 1945 79 From: Bertin Wolff DO PCP: Dr. Clifton Del Valle MD Status:ADM I N Location: [place] [address] Providers Date of Admission: 07/13/24 Date of [...] 40 mg PO QHS cholesterol 01/25/19 vitamins A,C,W-gwqd-ommcee 4,296 mcg-226 mg-90 mg capsule 1 ea [...] 78.1 H, Lymph % (Auto) 9.7 L, Scurry % (Auto) 11.0 H, Eos % (Auto) [...] MG tablet 40 mg PO BID vitamins A,C,X-qnnb-gbjsmq 1 EACH capsule 1 ea PO BID [...] Self Care Charges/Coding Visit Charges Inpatient E&M: 51643 Disch Hosp >30min 07/15/24 1124 Cosigner Signature (if applicable): CC: Dr. Bertin Wolff DO; Dr. Clifton Del Valle MD~ Signed [facility]03-24-2025 [facility] Medical Records Department [address] [place] [address] Discharge Summary 07/15/24 1121 MR#: [id number] Acct: [id number] Name: CRISTINA JEFFREY Rep #: [id number] : 1945 79 From: Bertin Wolff DO PCP: Dr. Clifton Del Valle MD Status:ADM IN [facility] Providers Date of Admission: 07/13/24 Date of [...] 40 mg PO QHS cholesterol 01/25/19 vitamins A,C,F-yvjp-qveeev 4,296 mcg-226 mg-90 mg capsule 1 ea [...] anxious or de (more content not included)... [facility]03-24-2025 Discharge summary [facility] Medical Records Department [address] [place] [address] Instructions for Home/Discharge Instructions 07/15/24 1108 MR#: [id number] Acct: [id number] Name: CRISTINA JEFFREY Rep #:[id number] : 1945 79 From: Bertin Wolff DO [...] MG tablet 40 mg PO BID vitamins A,C,G-qrvt-nootzh 1 EACH capsule 1 ea PO BID [...] can be placed): Home, Self Care 07/15/24 1118Bertin Wolff DO CC: Dr. Clifton Del Valle MD ~ Signed [facility]03-23-2025 Progress note Author Bertin [facility] Note Date/Time July 14, 2024 11: [address] [place] [address] Health System Medical Records Department [address] [place] [address] Progress Note - Hospitalist 07/14/24 1131 MR#: [id number] Acct: [id number] Name: CRISTINA JEFFREY Rep #:[id number] : 1945 79 From: Bertin Wolff DO PCP: Dr. Clifton Del Valle MD Status:ADM I N Location: [place] [address] Reason for Visit Reason for Visit: Diagnoses [...] 81.7 H, Lymph % (Auto) 9.4 L, Scurry % (Auto) 8.1, Eos % (Auto) 0.3, [...] The cardiomediastinal silhouette is stable. Reading Location: [address] Physical Exam Narrative alert, oriented x3 [...] 35 minutes Charges/Coding Visit Charges Inpatient E&M: 22413 Subs Hosp L2 07/14/24 1134 <Electronically signed by Bertin Wolff DO> Cosigner Signature (if applicable): CC: ~ Signed [facility] Work Phone: 1(965) 293-868503-23-2025 Progress note [facility] Medical Records Department [address] [place] [address] Progress Note - Hospitalist 07/14/24 1131 MR#: [id number] Acct: [id number] Name: WOJCIECHCRISTINA T Rep #:[id number] : 1945 79 From: Bertin Wolff DO PCP: Dr. Clifton Del Valle MD Status:ADM I N Location: [place] [address] Reason for Visit Reason for Visit: Diagnoses [...] 81.7 H, Lymph % (Auto) 9.4 L, Scurry % (Auto) 8.1, Eos % (Auto) 0.3, [...] Del Valle Chi Performed By: Trisha Chen, [facility] Chest X-Ray 07/14/24 05:45 IMPRESSION: Prominent right upper lobe infiltrate is again seen, perhaps slightly diminishedsince the prior study. This is concerning for the presence of pneumonitis. No new or worsened pneumonic process is seen. No evidence of pulmonary edema. No pleural effusion or pneumothorax is seen. The cardiomediastinal silhouette is stable. Reading Location: [address] Physical Exam Narrative alert, oriented x3 [...] 35 minutes Charges/Coding Visit Charges Inpatient E&M: 42163 Subs Hosp L2 07/14/24 1133 Cosigner Signature (if applicable): CC: ~ Signed [facility]03-23-2025 Radiology Diagnostic study note [facility] Imaging Services [address] [place] [address] Chest 1 View (Portable) MR#: [id number] Acct: [id number] Name: CRISTINA JEFFREY Rep #: [id number] : 1945 M 79 From: Rodriguez Negron MD PCP: Dr. Clifton Del Valle MD Status: ADM I N Study:Chest 1 View (Portable) Date of Exam: 07/14/24 Exam# [id number] Ordering Dr: Bertin [place] DO PROCEDURE: CHEST [...] The cardiomediastinal silhouette is stable. Reading Location: [address] CC: Dr. Bertin Wolff DO; Dr. Clifton Del Valle MD ~ Conflicts Analyst: Signed [facility]03-22-2025 Discharge summary Author Otf [facility] Note Date/Time July 13, 2024 12: 10pm [facility] Medical Records Department [address] [place] [address] Emergency Department Summary 07/13/24 MR#: [id number] Acct: [id number] Name: CRISTINA JEFFREY Rep #:[id number] : 1945 79 From: Otf Jefferson MD PCP: Dr. Clifton Del Valle MD Status:ADM I N Location: [address] History of Present Illness Chief Complaint: [...] with chills and a cough as well. [facility] Medical History Diastolic CHF, chronic Atrial fibrillation Prostate cancer Chronic gastric ulcer Atherosclerosis of coronary artery of [place] heart without angina pectoris Essential hypertension PAF [...] 2.5 mg/3 mL 2.5 mg inhalation Q4H [place] N PRN 01/25/19 01/25/19 01:00 History (0.083 [...] PO QHS cholesterol 08/1001/24/19 18:00 History vitamins A,C,L-efjl-nhkctf 4,296 1 ea PO BID supplemen t [...] 89.1 H Lymph % (Auto) 4.8 L Scurry % (Auto) 5.5 Eos % (Auto) 0.1 [...] inflammatory/infectious process, correlate for pneumonia. Reading Location: [facility] Management Discussion w/another healthcare provider: Hospitalist (Dr. Wolff) Discharge Plan Dx/Rx/DC Orders Clinical Impression: Pneumonia, Atrial fibrillation with rapid ventricular response, Essential hypertension, COPD (chronic obstructive pulmonary disease), Hypoxia Disposition Disposition: Acute Care Hospital [facility] Discharge Date/Time: 07/13/24 09:56 What to do if you have Problems For any increased pain, shortness of breath, bleeding, nausea or vomiting, chestpain, or any unexpected problems, contact your Primary Care Provider. Call [facility] ([phone]) or report to the closest Emergency Room. Call 911 if necessary. 07/13/24 1210 <Electronically signed by Otf Jefferson MD> Cosigner Signature (if applicable): CC: Dr. Clifton Del Valle MD ~ Signed [facility] Work Phone: 1(358) 505-458803-22-2025 History and physical note Author Bertin Wolff [facility] Note Date/Time July 13, 2024 10: 33am [facility] Medical Records Department [address] [place] [address] H&P Exam - Hospitalist 07/13/24 1019 MR#: [id number] Acct: [id number] Name: CRISTINA JEFFREY Rep #:[id number] : 1945 79 From: Bertin Wolff DO PCP: Dr. Clifton Del Valle MD Status:ADM I N Location: [place] [address]- 1 HPI - General General Date of Admission: 07/13/24 Date of Service: 07/13/24 Chief Complaint: Chills, shortness of breath HPI Narrative CRISTINA JEFFREY, is a 79 M who presents to the emergency room at [facility] with complaints of chills and shortness [...] PCU, IV Rocephin and Zithromax was given. [facility] Medical History Diastolic CHF, chronic Atrial fibrillation Prostate cancer Chronic gastric ulcer Atherosclerosis of coronary artery of [place] heart without angina pectoris Essential hypertension PAF [...] 2.5 mg/3 mL 2.5 mg inhalation Q4H [place] N PRN 01/25/19 01/25/19 01:00 History (0.083 [...] PO QHS cholesterol 08/1001/24/19 18:00 History vitamins A,C,N-tjnx-iftboh 4,296 1 ea PO BID supplemen t [...] 89.1 H, Lymph % (Auto) 4.8 L, Scurry % (Auto) 5.5, Eos % (Auto) 0.1, [...] inflammatory/infectious process, correlate for pneumonia. Reading Location: [id number] Assessment & Plan Assessment/Plan (1) Pneumonia: PLAN: [...] 75 minutes Charges/Coding Visit Charges Inpatient E&M: 87610 Init Hosp L3 07/13/24 1033 <Electronically signed by Bertin Wolff DO> Cosigner Signature (if applicable): CC: Dr. Bertin Wolff DO; Dr. Clifton Del Valle MD~ Signed [facility] Work Phone: 1(613) 633-933103-22-2025 Discharge summary [facility] Medical Records Department [address] [place] [address] Emergency Department Summary 07/13/24 MR#: [id number] Acct: [id number] Name: CRISTINA JEFFREY Rep #:[id number] : 1945 79 From: Otf Jefferson MD PCP: Dr. Clifton Del Valle MD Status:ADM I N Location: [address] History of Present Illness Chief Complaint: [...] with chills and a cough as well. [facility] Medical History Diastolic CHF, chronic Atrial fibrillation Prostate cancer Chronic gastric ulcer Atherosclerosis of coronary artery of [place] heart without angina pectoris Essential hypertension PAF [...] 2.5 mg/3 mL 2.5 mg inhalation Q4H [place] N PRN 01/25/19 01/25/19 01:00 History (0.083 [...] PO QHS cholesterol 08/1001/24/19 18:00 History vitamins A,C,C-agts-nuludk 4,296 1 ea PO BID supplemen t [...] 89.1 H Lymph % (Auto) 4.8 L Scurry % (Auto) 5.5 Eos % (Auto) 0.1 [...] inflammatory/infectious process, correlate for pneumonia. Reading Location: [facility] Management Discussion w/another healthcare provider: Hospitalist (Dr. Wolff) Discharge Plan Dx/Rx/DC Orders Clinical Impression: Pneumonia, Atrial fibrillation with rapid ventricular response, Essential hypertension, COPD (chronic obstructive pulmonary disease), Hypoxia Disposition Disposition: Acute Care Hospital [facility] Discharge Date/Time: 07/13/24 09:56 What to do if you have Problems For any increased pain, shortness of breath, bleeding, nausea or vomiting, chestpain, or any unexpected problems, contact your Primary Care Provider. Call [facility] ([phone]) or report tothe closest Emergency Room. Call 911 if necessary. 07/13/24 1210 Cosigner Signature (if applicable): CC: Dr. Clifton Del Valle MD ~ Signed [facility]03-22-2025 History and physical note [facility] Medical Records Department [address] [place] [address] H&P Exam - Hospitalist 07/13/24 1019 MR#: [id number] Acct: [id number] Name: CRISTINA JEFFREY Rep #:[id number] : 1945 79 From: Bertin Wolff DO PCP: Dr. Clifton Del Valle MD Status:ADM I N Location: [place] [address] HPI - General General Date of Admission: 07/13/24 Date of Service: 07/13/24 Chief Complaint: Chills, shortness of breath HPI Narrative CRISTINA JEFFREY, is a 79 M who presents to the emergency room at [facility] with complaints of chills and shortness [...] PCU, IV Rocephin and Zithromax was given. [facility] Medical History Diastolic CHF, chronic Atrial fibrillation Prostate cancer Chronic gastric ulcer Atherosclerosis of coronary artery of [place] heart without angina pectoris Essential hypertension PAF [...] 2.5 mg/3 mL 2.5 mg inhalation Q4H [place] N PRN 01/25/19 01/25/19 01:00 History (0.083 [...] PO QHS cholesterol 08/1001/24/19 18:00 History vitamins A,C,J-exem-smpbmt 4,296 1 ea PO BID supplemen t [...] 89.1 H, Lymph % (Auto) 4.8 L, Scurry % (Auto) 5.5, Eos % (Auto) 0.1, [...] inflammatory/infectious process, correlate for pneumonia. Reading Location: [id number] Assessment & Plan Assessment/Plan (1) Pneumonia: PLAN: [...] 75 minutes Charges/Coding Visit Charges Inpatient E&M: 39964 Init Hosp L3 07/13/24 1033 Cosigner Signature (if applicable): CC: Dr. Bertin Wolff DO; Dr. Clifton Del Valle MD~ Signed [facility]03-22-2025 Radiology Diagnostic study note [facility] Imaging Services [address] [place] [address] Chest 1 View (Portable) MR#: [id number] Acct: [id number] Name: CRISTINA JEFFREY Rep #: [id number] : 1945 M 79 From: Rodo España MD PCP: Dr. Clifton Del Valle MD Status: REG E R Study:Chest 1 View (Portable) Date of Exam: 07/13/24 Exam# [id number] Ordering Dr: Otf Jefferson MD PROCEDURE: CHEST [...] inflammatory/infectious process, correlate for pneumonia. Reading Location: [id number] CC: Dr. Otf Jefferson MD; Dr. Clifton Del Valle MD ~ Conflicts Analyst: Signed [facility]03-11-2025 Evaluation note* Diagnosis Onset Date Resolution Status Admit Date Atherosclerosis of coronary artery of [place] heart without angina pectoris chronic July 02, 2024 11:15am Atrial fibrillation chronic July 02, 2024 11:15am Diastolic CHF, chronic chronic [facility] 2024 11:15am Essential hypertension chronic [facility] 2024 11:15am Hypoxia acute July 13 8:27am Pneumonia acute July 13 8:27am Atrial fibrillation with rap id ventricular response chronic July 13, 2024 8:27am COPD (chronic obstructive pulmonary disease) chronic July 13, 025 8:27am Essential hypertension chronic [facility] 2024 8:27am [facility] Work Phone: 1(909) 507-675603-11-2025 Evaluation note* Diagnosis Onset Date Resolution Status Admit Date Atherosclerosis of coronary artery of [place] heart without angina pectoris chronic July 02, 2024 11:15am Atrial fibrillation chronic July 02, 2024 11:15am Diastolic CHF, chronic chronic [facility] 2024 11:15am Essential hypertension inactive [facility] 2024 11:15am Atrial fibrillation with rap id ventricular response inactive July 13, 2024 8:27am COPD (chronic obstructive pulmonary disease) inactive July 13, 025 8:27am Essential hypertension inactive [facility] 2024 8:27am Hypoxia inactive July 13 8:27am Pneumonia inactive July 13 8:27am [facility] Work Phone: Evaluation noteNo assessment information available [facility] Work Phone: Evaluation note* Diagnosis Onset Date Resolution Status Atherosclerosis of coronary artery of [place] heart without angina pectoris chronic Atrial fibrillation chronic Diastolic CHF, chronic chron ic Essential hypertension chron ic [facility] Work Phone: Reason for referral (narrative)No reason for referral information availableSumma Health [facility] Work Phone: Summary Purpose Family History No Family History Records Found Relationship Condition Age at Onset Recorded Date/T cb mother Cerebrovascular accident (CVA) Unknown father Dementia Unknown Advance Directives No Advanced Directives Records Found Advance Directive Response Recorded Date/ Time Advance Directives No February 04, 2019 9:28am Living Will No February 04 9:28am Power of Textile Finisher No February 04, 2019 9:28am Advance Directive Response Recorded Date/ Time Advance Directives No February 04, 2019 9:28am Living Will No September 05, 2021 1 1:44pm Power of Textile Finisher No September 05, 2021 11:44pm Advance Directive Response Recorded Date/ Time Advance Directives No February 04, 2019 8:28am Living Will No September 05, 2021 1 0:44pm Power of Textile Finisher No September 05, 2021 10:44pm Advance Directive Response Recorded Date/ Time Living Will No September 05, 2021 1 1:44pm Do you have a Healthcare Power of Textile Finisher? No September 05, 2021 11:44pm Living Will No July 13, 2024 6:48am Do you have a Healthcare Power of Textile Finisher? No July 13, 2024 6:48am Advance Directives No February 04, 2019 9:28am Advance Directive Response Recorded Date/ Time Living Will No September 05, 2021 1 1:44pm Do you have a Healthcare Power of Textile Finisher? No September 05, 2021 11:44pm Living Will No July 13, 2024 10:12am Do you have a Healthcare Power of Textile Finisher? No July 13, 2024 10:12am Advance Directives No February 04, 2019 9:28am Hospital Course Note HNO ID: [id number]: CANDICE Beachervice: [facility] MedicineAuthor Type: PhysicianType: Discharge SummariesFiled: 07/05/2017 10:31 AMNote Text:DISCHARGE SUMMARYPATIENT NAME: Cristina JeffreyMRN: [id number] Information Admission Information ADMIT DATE: 06/21/2017DISCHARGE DATE: [...] (more content not included)... Note HNO ID: [id number]: Anjana clinton (Res) HiebService: General SurgeryAuthor Type: ResidentType: Discharge SummariesFiled: 09/28/2017 11:05 AMNote Text:DISCHARGE SUMMARYPATIENT NAME: Cristina JeffreyMRN: [id number] Information Admission Information ADMIT DATE: 09/12/2017DISCHARGE DATE: [...] (more content not included)... Note HNO ID: [id number]: Philippe Newton: Interventional RadiologyAuthor Type: PhysicianType: Brief Op NoteFiled: 06/23/2017 6:51 PMNote Text:BRIEF OPERATIVE / PROCEDURE NOTELOG ID: [id number]/Procedure Date: 06/23/2017Incision/Procedure Start Time:Incision Close/Procedure End Time:Surgeon(s)/Proceduralist(s) and Clinical Nursing Manager(s):Surgeon(s) and Role: * Dre Marquez Additional StaffProcedure(s): [...] (more content not included)... Note HNO ID: [id number]: Davey Valenciaervice: GastroenterologyAuthor Type: PhysicianType: Brief Op NoteFiled: 09/15/2017 11:35 AMNote Text:BRIEF OPERATIVE / PROCEDURE NOTELOG ID: [id number]/PROCEDURE DATE: 09/15/2017SURGEON(S)/PROCEDURALIST(S) AND SPOOL SORTER(S): Sagar Dominguez - PrimaryendoscopistINDICATION: Gastric outlet obstructionPRE-OP/PRE-PROCEDURE [...] BxsCOMPLICATIONS: NonePOST- PROCEDURE RECOMMENDATIONS/FOLLOW UP: Surgical interventionDict n#[id number]: Sagar Dominguez MD PATIENT NAME: Cristina JeffreyDATE: 09/15/2017 (more content not included)... Note HNO ID: [id number]: Lexi oconnell AliService: General SurgeryAuthor Type: PhysicianType: Brief Op NoteFiled: 09/21/2017 6:17 PMNote Text:BRIEF OPERATIVE / PROCEDURE NOTELOG ID: [id number]/PROCEDURE DATE: 09/21/2017INCISION/PROCEDURE START TIME: 3:37 PMINCISION CLOSE/PROCEDURE END TIME:SURGEON(S)/PROCEDURALIST(S) AND SPOOL SORTER(S):Surgeon(s) and Role: * Venus Foster - Primary * Moises Palencia (Fel) Additional StaffSURGERY/PROCEDURE(S): 1. Laparoscopic gastrojejunostomy with truncalvagotomyANESTHESIA: GeneralFINDINGS: scarred ulcer bed on gallbladder and monique hepatisESTIMATED BLOOD LOSS: 0 mlSPECIMENS: NoneCOMPLICATIONS: NonePRE-OP/PRE-PROCEDURE DIAGNOSIS: gastric outlet obstructionPOST-OP/POST-PROCEDURE DIAGNOSIS: Gastric outlet obstruction [K31.1]SIGNATURE: Venus Foster MD PATIENT NAME: Cristina JeffreyDATE: September 21, 2017 : 6:15 PM PAGER/CONTACT #: Procedure Findings Note HNO ID: [id number]: Philippe Newton: Interventional RadiologyAuthor Type: PhysicianType: Brief Op NoteFiled: 06/23/2017 6:51 PMNote Text:BRIEF OPERATIVE / PROCEDURE NOTELOG ID: [id number]/Procedure Date: 06/23/2017Incision/Procedure Start Time:Incision Close/Procedure End Time:Surgeon(s)/Proceduralist(s) and Clinical Nursing Manager(s):Surgeon(s) and Role: * Dre Marquez Additional StaffProcedure(s): [...] (more content not included)... Note HNO ID: [id number]: Davey Cornell MirService: GastroenterologyAuthor Type: PhysicianType: Brief Op NoteFiled: 09/15/2017 11:35 AMNote Text:BRIEF OPERATIVE / PROCEDURE NOTELOG ID: [id number]/PROCEDURE DATE: 09/15/2017SURGEON(S)/PROCEDURALIST(S) AND SPOOL SORTER(S): Sagar Dominguez - PrimaryendoscopistINDICATION: Gastric outlet obstructionPRE-OP/PRE-PROCEDURE [...] BxsCOMPLICATIONS: NonePOST- PROCEDURE RECOMMENDATIONS/FOLLOW UP: Surgical interventionDict n#[id number]: Sagar Dominguez MD PATIENT NAME: Cristina JeffreyDATE: 09/15/2017 (more content not included)... Note HNO ID: [id number]: Lexi oconnell AliService: General SurgeryAuthor Type: PhysicianType: Brief Op NoteFiled: 09/21/2017 6:17 PMNote Text:BRIEF OPERATIVE / PROCEDURE NOTELOG ID: [id number]/PROCEDURE DATE: 09/21/2017INCISION/PROCEDURE START TIME: 3:37 PMINCISION CLOSE/PROCEDURE END TIME:SURGEON(S)/PROCEDURALIST(S) AND SPOOL SORTER(S):Surgeon(s) and Role: * Venus Foster - Judy [...] Visit Atherosclerosis of c oronary artery of [place] heart without angina pectoris Atrial fibrillation Diastolic CHF, chronic Essential hypertension Chief Complaint Admit Date 1 Y FU July 02, 2024 11: 15am COMMUNITY-ACQUIRED PNEUMONIA, A-FIB WITH RVR July 13, 2024 8:27am Reason for Visit Admit Date Atherosclerosis of coronary artery of [place] heart without angina pectoris July 02, 2024 [...] Admit Date Atherosclerosis of coronary artery of [place] heart without angina pectoris July 02, 2024 [...] section and content) DATE CREATED AUTHOR 10/10/2017 [facility] DATE CREATED AUTHOR AUTHOR'S ORGANIZ ATION 03/01/2018 [facility] DATE CREATED AUTHOR AUTHOR'S ORGANIZ ATION 09/18/2024 [facility] Goals (unrecognized section and content) Goals may [...] 05, 2024 End: September 05, 2024 Dr. lCifton Del Valle MD Referring Provider Active Start: [...] BE BASED ON THE PRIMARY CLINICAL RECORDS. [employer] provides no warranty or guarantee of the accuracy or completeness of information in this document.
[2024-11-10] MEDS: Azithromycin 500 MG in 0.9% Normal Saline (250mL Bag) 250 ML 250 MG IV (09:10)
[2024-11-10] MEDS: Ceftriaxone 2 GM in 0.9% Normal Saline (50mL MB+) 50 ML IV (11:38)
[2024-11-10] MEDS: Ipratropium 0.5 MG/2.5 ML SOLUTION INHALATION ×3 (12:12→19:25)
[2024-11-10] MEDS: Metoprolol(XL)Succ 50 MG Tablet 150 MG PO (21:00)
[2024-11-10] MEDS: SACUBITRIL/VALSARTAN 97-103 MG TABLET 1 EACH PO (21:04)
[2024-11-10] MEDS: APIXABAN 5 MG TABLET PO (21:04)
[2024-11-11] VITALS (10 sets, daily range): BP systolic 107–119; BP diastolic 69–71; PULSE 73–94; RESP 16–20; TEMP 36.5–36.6; O2SAT 95–97
[2024-11-11] MEDS: Ipratropium 0.5 MG/2.5 ML SOLUTION INHALATION ×4 (06:46→19:07)
[2024-11-11 07:11] LABS: Hematocrit 42.8 % (40-54); Hemoglobin 14.7 g/dL (13.0-16.5); Immature Granulocytes Count 0.030 X10^3/uL (0.0-0.0); Mean Corp Hgb Conc 34.3 g/dL (32-36); Mean Corpuscular Volume 93.7 fL (80-94); Mean Platelet Vol. 9.4 fl (6.2-12.0); NRBC Flagged by Analyzer 0 % (0-5); Platelet Count 272 K/mm3 (150-450); RBC Distribution Width CV 14.4 % (11.6-14.6); RBC Distribution Width SD 49.9 fl (35.1-43.9); Red Blood Count 4.57 M/mm3 (4.6-6.2); White Blood Count 5.9 K/mm3 (4.4-11.0)
[2024-11-11 07:44] LABS: AST(SGOT) 22 U/L (<=37); Alanine Aminotransfer ALT/SGPT 25 U/L (<=46); Albumin, Serum 3.4 g/dL (3.4-4.8); Alkaline Phosphatase 88 U/L (40-129); Anion Gap 12 (5-15); BUN 11 mg/dL (4-19); BUN/Creat Ratio 12.9 RATIO (10-20); Calcium,Total 8.7 mg/dL (7.6-11.0); Carbon Dioxide 19.5 mmol/L (21.0-32.0); Chloride 104 mmol/L (98-108); Estimated Creatinine Clearance 80.93 ml/min (50-250); Globulin 2.7 g/dL (2.2-4.2); Glucose 113 mg/dL (70-99); Potassium 4.1 mmol/L (3.3-5.1)
[2024-11-11] MEDS: SACUBITRIL/VALSARTAN 97-103 MG TABLET 1 EACH PO ×2 (08:28→19:42)
[2024-11-11] MEDS: Potassium Chloride Oral Tablet 20 MEQ 40 MEQ PO (08:29)
[2024-11-11] MEDS: Metoprolol(XL)Succ 50 MG Tablet 150 MG PO ×2 (08:29→19:41)
[2024-11-11] MEDS: APIXABAN 5 MG TABLET PO ×2 (08:30→19:41)
[2024-11-11] MEDS: Ceftriaxone 2 GM in 0.9% Normal Saline (50mL MB+) 50 ML IV (08:31)
[2024-11-11] MEDS: Azithromycin 500 MG in 0.9% Normal Saline (250mL Bag) 250 ML 255 MG IV (11:19)
--- NOTE | 2024-11-11 13:59 | CASEMGMT ---
DONATO WANG Assessment: Face to Face with pt for initial transition planning/care coordination assessment. DONATO WANG introduced self and role at [facility], pt voices understanding and consents to assessment. Pt is A&O x4 and answers all questions appropriately at this time. Pt sitting up in chair in no distress. Care providers, pharmacy, and demographics verified/updated. Strata: 3 Admitting Dx: Hypoxia, PNA PCP: Eligio Specialists: ANGEL Preferred Pharmacy: [facility] Pres[facility] Benefit: yes LNOK: SisterBridgette Living Arrangements: Pt lives alone in a first floor appt with no steps to enter ADLs: Pt states he is I with ADL's, needs some assistance with IADLs. Has an aide that comes once a day to help with groceries, cleaning, drives him to appointments. Pt does not know who the aide is through, states she is Independent. Pt states he is on a waiver and has a CM Almaz Low but does not have anumber for her. Transportation: Pt aide provides transportation. DME: shower chair, grab bars, medical alert. HHC/SNF: Previously at [facility], denies skilled HHC services. Pt states no concerns with going home at time of dc. Pt states no further concerns/needs. CM to follow. Advised pt to ask CM if any further question/concerns/needs arise, voices understanding. 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 Riccardo SEWELL CM
--- NOTE | 2024-11-11 19:36 | PN.HOSP_ITS ---
Reason for Visit Chief Complaint: R sided pleuritic chest pain, fatigue, malaise. Subjective Subjective Patient was seen and examined today, he is currently on room air at this time. Patient states he does not have transportation to go home tonight. Objective Data Objective Data Vital Signs: Vital Signs Temp Pulse Resp BP Pulse Ox O2 Del Method 97.9 F 88 16 113/71 96 Room Air 11/11/24 15:42 11/11/24 19:07 11/11/24 19:07 11/11/24 15:42 11/11/24 15:42 11/11/24 17:00 Oxygen Delivery Method Room Air Weight: 99.337 kg Body Mass Index (BMI) 32.3 Intake & Output: Intake and Output for Last 24 Hours 11/09/24 11/10/24 11/11/24 23:59 23:59 23:59 Intake Total 940 / 940 1805 / 1805 Balance 940 / 940 1805 / 1805 Lab / Micro Data 11/11/24 06:25 11/11/24 06:25 Labs: Laboratory Results - last 24 hr 11/11/24 06:25: WBC 5.9, RBC 4.57 L, Hgb 14.7, Hct 42.8, MCV 93.7, MCH 32.2 H, MCHC 34.3, RDW Std Deviation 49.9 H, RDW Coeff of Yaneli 14.4, Plt Count 272, MPV 9.4, Immature Gran % (Auto) 0.500, Neut % (Auto) 68.0, Lymph % (Auto) 16.2 L, M manolo % (Auto) 12.9 H, Eos % (Auto) 1.9, Baso % (Auto) 0.5, Absolute Neuts (auto) 4.0, Absolute Lymphs (auto) 0.96, Nucleated RBC % 0, Sodium 136, Potassium 4.1, Chloride 104, Carbon Dioxide 19.5 L, Anion Gap 12, BUN 11, Creatinine 0.86, Estim Creat Clear Calc 80.93, Est GFR (MDRD) Non-Af 88, BUN/Creatinine Ratio 12.9, Glucose 113 H, Calcium 8.7, Total Bilirubin 0.83, AST 22, ALT 25, Alkaline Phosphatase 88, Total Protein 6.1, Albumin 3.4, Globulin 2.7, Albumin/Globulin Ratio 1.3 Micro: Microbiology 11/10/24 19:35 Mucosa - Nasopharyngeal Respiratory Panel (PCR) - Final 11/10/24 16:40 Interface Orders Legionella Antigen - Final 11/10/24 16:40 Interface Orders Streptococcus pneumoniae Antigen (M - Final Rhythm Strip Rhythm Strip: A-fib Rate: 95 Ectopy: None Physical Exam Const alert, oriented x3, no apparent distress, average body habitus and healthy appearing General Appearance: cooperative, well kempt and well developed Orientation / Consciousness: awake, oriented to person, oriented to place and oriented to time HEENT normocephalic, head/scalp atraumatic and moist oral mucous membranes Eyes PERRL, EOMs intact bilaterally and conjunctivae normal Neck supple, no JVD, thyroid normal and no carotid bruits General: trachea midline Resp normal respiratory effort and clear to auscultation bilaterally Auscultation: Negative for rales, rhonchi or wheezes Cardio regular rate, regular rhythm, no murmurs, no rub and no gallops GI normal to inspection, nondistended, normoactive bowel sounds, soft to palpation, non-tender and non-distended Extremity no clubbing, cyanosis or edema Skin no rashes or lesions noted General Skin Exam: no breakdown Neuro oriented x3, CN's II-XII intact bilaterally, no focal motor deficits and no sensory deficits noted Sensorium / Orientation: awake and alert Speech: speech normal Psych affect normal Assessment & Plan Assessment/Plan (1) Pneumonia: PLAN: Plan 1. Community-acquired pneumonia-patient will continue on his present antibiotics, he will be reevaluated tomorrow for discharge home #2 hypoxia-patient is currently on room air at this time #3 chronic obstructive pulmonary disease-continue present treatment, monitor pulse ox #4 paroxysmal atrial fibs-patient will continue on rate control medications and Eliquis #5 essential hypertension-patient will remain on his present medication Total clinical time spent by myself addressing the patient's medical issues, reviewing all of his data, and collaborating with patient's care team: 35 minutes Charges/Coding Visit Charges Inpatient E&M: 14955 Subs Hosp L2
[2024-11-12] VITALS (7 sets, daily range): BP systolic 113–115; BP diastolic 75–78; PULSE 89–105; RESP 18; TEMP 36.4–36.6; O2SAT 95–97; BMI 32.4
--- NOTE | 2024-11-12 05:55 | CT_ITS ---
PROCEDURE: CHEST WITHOUT CONTRAST 11/12/2024 REASON FOR EXAM: ABNORMAL CHEST X-RAY, POSSIBLE FIBROSIS TECHNIQUE: Chest CT without contrast. Coronal and Sagittal reconstruction series were provided. One or more dose reduction techniques were used (e.g., Automated exposure control, adjustment of the mA and/or kV according to patient size, use of iterative reconstruction technique RADIATION DOSE SUMMARY: DLP: 618 mGycm COMPARISON: November 10, 2024 chest x-ray FINDINGS: Hardware: None Lymph nodes: There is an enlarged 1.3 x 1.8 cm precarinal lymph node, image 53/145. Heart and Vasculature: Atherosclerotic calcifications are noted. Lungs and Airways: There is severe emphysema. There is a 1.0 cm solid nodule in the right upper lobe, image 48/145. There is a 1.4 x 1.9 cm solid peripheral density in the right upper lobe, image 53/145. There is interstitial infiltrate or fibrosis with component of atelectasis in the right upper lobe. Atelectasis is noted at the right lung base. Pleura: There is a 2.5 cm right pleural effusion. Upper Abdomen: There is a 2.3 cm cyst at the falciform ligament. A 2 cm cyst is noted in the midpole of the right kidney. 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 CT/Chest without Contrast IMPRESSION: There is an enlarged 1.3 x 1.8 cm precarinal lymph node, image 53/145. There is severe emphysema. There is a 1.0 cm solid nodule in the right upper lobe, image 48/145. There is a 1.4 x 1.9 cm solid peripheral density in the right upper lobe, image 53/145. PET scan correlation is recommended. There is interstitial infiltrate or fibrosis with component of atelectasis in t he right upper lobe. Atelectasis is noted at the right lung base. There is a 2.5 cm right pleural effusion. There is a 2.3 cm cyst at the falciform ligament. A 2 cm cyst is noted in the midpole of the right kidney. 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 Reading Location: [facility]
[2024-11-12] MEDS: Ipratropium 0.5 MG/2.5 ML SOLUTION INHALATION ×2 (07:18→10:18)
[2024-11-12] MEDS: Potassium Chloride Oral Tablet 20 MEQ 40 MEQ PO (07:55)
[2024-11-12] MEDS: APIXABAN 5 MG TABLET PO (07:55)
[2024-11-12] MEDS: SACUBITRIL/VALSARTAN 97-103 MG TABLET 1 EACH PO (07:56)
[2024-11-12] MEDS: Metoprolol(XL)Succ 50 MG Tablet 150 MG PO (07:57)
--- NOTE | 2024-11-12 08:12 | NURSING ---
pt request am daily meds early to stay on his schedule
--- NOTE | 2024-11-12 10:57 | DCINST_ITS ---
Discharge Instructions DC O2, CPAP, BIPAP needs Home O2 Discharge instructions: No Dressing / Incision Discharge Activity: Return to Normal Activity Weight Bearing Status: Full weight bearing Follow Up Care Test Results: Test results from this visit will be discussed in further detail at your follow- up appointment, if applicable. Discharge Plan Admission Admit Date/Time: 11/10/24 08:18 Primary Reason for Your Visit: pneumonia Attending Provider: Bertin Wolff Primary Care Provider: Clifton Del Valle [employer] Providers: Na Woodward Instructions Additional Instructions / Restrictions: It is possible you have pneumonia, it is also possible that the changes on your chest x-ray indicate scar tissue or fibrosis, this does not need to be treated Discharge Orders/Prescriptions Prescriptions: New levofloxacin 500 mg tablet 500 mg PO DAILY Qty: 5 0RF Rx Instructions: start on 11/12/24 Continued Entresto 97-103 mg tablet 1 tab PO BID furosemide 40 mg tablet 40 mg PO DAILY albuterol sulfate 2.5 MG/3 ML solution for nebulization 2.5 mg inhalation Q4H PRN PRN (Reason: Shortness Of Breath) pravastatin 40 MG tablet 40 mg PO QHS potassium chloride 20 MEQ tablet 40 meq PO DAILY pantoprazole 40 MG tablet 40 mg PO BID cholecalciferol (vitamin D3) 25 mcg (1,000 unit) capsule 3,000 unit PO DAILY apixaban 5 MG tablet 5 mg PO BID metoprolol succinate 50 mg Tablet Extended Release 24 Hr 150 mg PO BID Qty: 180 0RF diltiazem HCl [Cardizem CD] 120 mg capsule,extended release 24hr 120 mg PO DAILY Qty: 30 0RF Rx Instructions: Start on 07/16/2024 Trelegy Ellipta 100-62.5-25 mcg blister with device 1 ea inhalation DAILY Referrals / Follow Up: Clifton Del Valle Chi, MD [Primary Care Provider] - See Referral Note (As scheduled) Disposition Disposition (needs filled in before D/C Order can be placed): Home, Self Care
--- NOTE | 2024-11-12 11:04 | PCM.DC.SUM ---
Providers Date of Admission: 11/10/24 Date of Discharge: 11/12/24 Primary Care Physician: Dr. Clifton Del Valle MD Reason For Visit: HYPOXIA, PNA Diagnosis Discharge Diagnosis (1) Pneumonia: Status: Acute Code(s): J18.9 - Pneumonia, unspecified organism Plan 1. Community-acquired pneumonia-patient will continue on his present antibiotics, he will be reevaluated tomorrow for discharge home #2 hypoxia-patient is currently on room air at this time #3 chronic obstructive pulmonary disease-continue present treatment, monitor pulse ox #4 paroxysmal atrial fibs-patient will continue on rate control medications and Eliquis #5 essential hypertension-patient will remain on his present medication Total clinical time spent by myself addressing the patient's medical issues, reviewing all of his data, and collaborating with patient's care team: 35 minutes Medications at Discharge Home Medications albuterol sulfate 2.5 mg/3 mL (0.083 %) solution for nebulization 2.5 mg inhalation Q4H PRN PRN Shortness Of Breath 01/25/19 pantoprazole 40 mg tablet,delayed release 40 mg PO BID stomach 01/25/19 potassium chloride 20 mEq tablet,extended release(part/cryst) 40 meq PO DAILY supplement 01/25/19 pravastatin 40 mg tablet 40 mg PO QHS cholesterol 01/25/19 cholecalciferol (vitamin D3) 25 mcg (1,000 unit) capsule 3,000 unit PO DAILY supplement 05/14/19 furosemide 40 mg tablet 40 mg PO DAILY water pill 05/10/22 sacubitril 97 mg-valsartan 103 mg tablet (Entresto) 1 tab PO BID heart 05/10/22 apixaban 5 mg tablet 5 mg PO BID afib 07/13/24 diltiazem HCl 120 mg capsule,extended release 24 hr (Cardizem CD) 120 mg PO DAILY #30 caps 07/15/24 metoprolol succinate 50 mg tablet,extended release 24 hr 150 mg (3 x 50 mg) PO BID #180 tabs 07/15/24 fluticasone fur. 100 mcg-umeclid 62.5 mcg-vilant 25 mcg inhalat.powder (Trelegy Ellipta) 1 ea inhalation DAILY 11/10/24 levofloxacin 500 mg tablet 500 mg PO DAILY #5 tabs 11/12/24 Hospital Course Operations None Procedures None Summary of Care Provided Minutes Spent on Discharge: 31 Hospital Course: This 79-year-old white male was seen in the emergency room at [facility] with a chief complaint of right sided chest discomfort which was worse on inspiration. Patient related to a period of unwellness for 3 days prior to being seen in the ER. Patient has history of COPD, he stated when he took a deep breath and it made him cough. Patient CBC was unremarkable, chest x-ray showed prominent interstitial markings in the right middle and lower lobes which may represent pneumonia in the right clinical setting-although these findings were similar when compared with the prior chest x-ray study indicating possible parenchymal scarring. Patient was admitted to [place] [id number] and placed on IV antibiotics and aerosol treatments. Patient's oxygen was weaned to room air, on 11/12/2024, patient was seen and examined:alert, oriented x3, no apparent distress, average body habitus and healthy appearing General Appearance: cooperative, well kempt and well developed Orientation / Consciousness: awake, oriented to person, oriented to place and oriented to time HEENT normocephalic, head/scalp atraumatic and moist oral mucous membranes Eyes PERRL, EOMs intact bilaterally and conjunctivae normal Neck supple, no JVD, thyroid normal and no carotid bruits General: trachea midline Resp normal respiratory effort and clear to auscultation bilaterally Auscultation: Negative for rales, rhonchi or wheezes Cardio regular rate, regular rhythm, no murmurs, no rub and no gallops GI normal to inspection, nondistended, normoactive bowel sounds, soft to palpation, non-tender and non-distended Extremity no clubbing, cyanosis or edema Skin no rashes or lesions noted General Skin Exam: no breakdown Neuro oriented x3, CN's II-XII intact bilaterally, no focal motor deficits and no sensory deficits noted Sensorium / Orientation: awake and alert Speech: speech normal Psych affect normal Patient was discharged home in stable condition on 11/12/2024 Weight / BMI Weight Weight: 99.3 kg Body Mass Index (BMI) 32.4 ABG / Lab / Microbiology Data 11/11/24 06:25 11/11/24 06:25 Microbiology: Microbiology 11/10/24 19:35 Mucosa - Nasopharyngeal Respiratory Panel (PCR) - Final 11/10/24 16:40 Interface Orders Legionella Antigen - Final 11/10/24 16:40 Interface Orders Streptococcus pneumoniae Antigen (M - Final D/C Instructions Weight Bearing Status: Full weight bearing DC O2, CPAP, BIPAP Needs Home O2 Discharge instructions: No Meaningful Use Info Meaningful Use Meaningful Use Diagnoses (Choose all that apply): None applicable Discharge Plan Admission Admit Date/Time: 11/10/24 08:18 Primary Reason for Your Visit: pneumonia Attending Provider: Bertin Wolff Primary Care Provider: Clifton Del Valle [employer] Providers: Na Woodward Instructions Additional Instructions / Restrictions: It is possible you have pneumonia, it is also possible that the changes on your chest x-ray indicate scar tissue or fibrosis, this does not need to be treated Discharge Orders/Prescriptions Prescriptions: New levofloxacin 500 mg tablet 500 mg PO DAILY Qty: 5 0RF Rx Instructions: start on 11/12/24 Continued Entresto 97-103 mg tablet 1 tab PO BID furosemide 40 mg tablet 40 mg PO DAILY albuterol sulfate 2.5 MG/3 ML solution for nebulization 2.5 mg inhalation Q4H PRN PRN (Reason: Shortness Of Breath) pravastatin 40 MG tablet 40 mg PO QHS potassium chloride 20 MEQ tablet 40 meq PO DAILY pantoprazole 40 MG tablet 40 mg PO BID cholecalciferol (vitamin D3) 25 mcg (1,000 unit) capsule 3,000 unit PO DAILY apixaban 5 MG tablet 5 mg PO BID metoprolol succinate 50 mg Tablet Extended Release 24 Hr 150 mg PO BID Qty: 180 0RF diltiazem HCl [Cardizem CD] 120 mg capsule,extended release 24hr 120 mg PO DAILY Qty: 30 0RF Rx Instructions: Start on 07/16/2024 Trelegy Ellipta 100-62.5-25 mcg blister with device 1 ea inhalation DAILY Referrals / Follow Up: Clifton Del Valle Chi, MD [Primary Care Provider] - See Referral Note (As scheduled) Disposition Disposition (needs filled in before D/C Order can be placed): Home, Self Care Charges/Coding Visit Charges Inpatient E&M: 89043 Disch Hosp >30min
== END 2024-11-12 11:40 | disposition home or self-care (01) | DRG 194 ==
LOC: ED 08:29 → MS3 08:44
PROVIDERS: Admitting Provider Family Medicine; Emergency Provider Emergency Medicine; PCP Family Medicine Geriatric Medicine; Visit Provider Internal Medicine
DX: J18.9 Pneumonia, unspecified organism (principal); I50.32 Chronic diastolic (congestive) heart failure; J44.0 Chronic obstructive pulmonary disease with (acute) lower respiratory infection; I13.0 Hypertensive heart and chronic kidney disease with heart failure and stage 1 through stage 4 chronic kidney disease, or unspecified chronic kidney disease; E66.9 Obesity, unspecified; I48.0 Paroxysmal atrial fibrillation; N18.2 Chronic kidney disease, stage 2 (mild); E78.5 Hyperlipidemia, unspecified; I25.10 Atherosclerotic heart disease of native coronary artery without angina pectoris; K21.9 Gastro-esophageal reflux disease without esophagitis; Z79.01 Long term (current) use of anticoagulants; Z68.31 Body mass index [BMI] 31.0-31.9, adult; Z79.51 Long term (current) use of inhaled steroids; Z79.899 Other long term (current) drug therapy; Z87.891 Personal history of nicotine dependence
CPT/HCPCS: 36415; 71046; 71250; 80048; 80053; 81001; 83735; 84484; 85025; 87449; 87633; 92526; 92610; 93005; 94640; 94668; 99284; A4216; J0696

== ENCOUNTER → 2025-03-04 | Outpatient (CLI) | payer MEDICARE, MEDICAID, SELFPAY ==
[2025-03-04 10:29] LABS: Hematocrit 46.1 % (40-54); Hemoglobin 15.6 g/dL (13.0-16.5); Immature Granulocytes Count 0.030 X10^3/uL (0.0-0.0); Mean Corp Hgb Conc 33.8 g/dL (32-36); Mean Corpuscular Volume 93.5 fL (80-94); Mean Platelet Vol. 8.8 fl (6.2-12.0); NRBC Flagged by Analyzer 0 % (0-5); Platelet Count 331 K/mm3 (150-450); RBC Distribution Width CV 14.6 % (11.6-14.6); RBC Distribution Width SD 51.1 fl (35.1-43.9); Red Blood Count 4.93 M/mm3 (4.6-6.2); White Blood Count 7.0 K/mm3 (4.4-11.0)
[2025-03-04 11:07] LABS: AST(SGOT) 22 U/L (<=37); Alanine Aminotransfer ALT/SGPT 17 U/L (<=46); Albumin, Serum 3.8 g/dL (3.4-4.8); Alkaline Phosphatase 87 U/L (40-129); Anion Gap 9 (5-15); BUN 12 mg/dL (4-19); BUN/Creat Ratio 10.9 RATIO (10-20); Calcium,Total 9.0 mg/dL (7.6-11.0); Carbon Dioxide 26.4 mmol/L (21.0-32.0); Chloride 105 mmol/L (98-108); Cholesterol 117 mg/dL (<=200); Globulin 2.4 g/dL (2.2-4.2); Glucose 105 mg/dL (70-99); Low Density Lipoprotein Calc. 52 mg/dL; Potassium 4.7 mmol/L (3.3-5.1); Triglycerides 92 mg/dL; Very Low Density Lipoprotein 18 mg/dL (5-40); Vitamin D,25 Hydroxy 45.7 ng/mL (30-100); cholesterol:hdl ratio screen 2.49
[2025-03-04 18:15] LABS: Xtra Tube Kwok EXTRA TUBE
== END | disposition home or self-care (01) ==
LOC: POLAB3 10:14
PROVIDERS: PCP Family Medicine Geriatric Medicine; Visit Provider Family Medicine Geriatric Medicine
DX: E55.9 Vitamin D deficiency, unspecified (principal); E78.5 Hyperlipidemia, unspecified; R53.83 Other fatigue
CPT/HCPCS: 36415; 80053; 80061; 82306; 84443; 85025